=== PATIENT | female | born 1935 | race Caucasian/White ===

== ENCOUNTER 2020-03-02 09:21 | Outpatient (REF) | payer MEDICARE, OTHER, SELFPAY ==
--- NOTE | 2020-03-02 09:30 | FL_ITS ---
EXAMINATION: FLUOROSCOPY UPPER GI WITH AIR CLINICAL INFORMATION: Gastroesophageal reflux disease COMPARISON: None. TECHNIQUE: An upper GI examination is performed under fluoroscopic observation with digital image acquisition. The patient drank effervescent granules, thick and thin barium consistencies without difficulty. FINDINGS: There is a small sliding-type hiatal hernia with spontaneous gastroesophageal reflux. Esophageal dysmotility with delayed emptying. Normal esophageal caliber with no stricture. The stomach demonstrates normal motility with normal rugal folds. The duodenal bulb and proximal duodenum demonstrate no evidence of ulcer, mass lesion, or displacement. At least 2 distal duodenal diverticula are identified. FLUOROSCOPY TIME: 1.6 minutes Number of images excluding screen shots: 20 ADDITIONAL FINDINGS: None. IMPRESSION: There is a small sliding-type hiatal hernia and spontaneous gastroesophageal reflux. Esophageal dysmotility with delayed emptying.
== END 2020-03-02 09:22 | disposition home or self-care (01) ==
LOC: HO.XRAY 09:21
PROVIDERS: PCP Internal Medicine; Visit Provider Internal Medicine
DX: K21.9 Gastro-esophageal reflux disease without esophagitis (principal)
CPT/HCPCS: 74240

== ENCOUNTER → 2020-03-29 13:49 | Outpatient (BNVA) | payer MEDICARE, OTHER, SELFPAY | PROVIDERS: PCP Internal Medicine; Referring Provider Internal Medicine; Visit Provider Internal Medicine | DX: R07.2 Precordial pain (principal); E11.8 Type 2 diabetes mellitus with unspecified complications; I10 Essential (primary) hypertension; E78.5 Hyperlipidemia, unspecified; R94.31 Abnormal electrocardiogram [ECG] [EKG] | CPT/HCPCS: 93005; 99202 ==

== ENCOUNTER 2021-01-19 08:49 | Outpatient (REF) | payer MEDICARE, OTHER, SELFPAY ==
--- NOTE | ~2021-01-19 | MM_ITS ---
EXAMINATION: BONE DENSITOMETRY CLINICAL INDICATION: Age-related osteoporosis without current pathological fracture. COMPARISON: Previous BD dated 09/30/2008, left hip and baseline BD dated 04/11/2004, left hip; 09/30/2008, spine. TECHNIQUE: Using a [employer] DXA System (software version: 13.1) manufactured by [employer], dual-energy x-ray absorptiometry was performed of the lumbar spine and left hip. The images are of good technical quality. Summary results are attached. FINDINGS: AP SPINE L1-L4 (excluding L3): The data of L1-L4 has been changed to exclude the L3 vertebral body, because degenerative changes at this level may cause overestimation of lumbar spine density. Current: BMD 1.300 g/cm2, Z-score 2.5, T-score 1.1, normal, 14.1% increase from baseline (<5% change is not significant). Baseline: BMD 1.139 g/cm2. LEFT FEMUR, NECK: Current: BMD 0.702 g/cm2, Z-score -0.4, T-score -2.4, osteopenia. Prior: BMD 0.877 g/cm2. Baseline: BMD 0.768 g/cm2. LEFT FEMUR, TOTAL: Current: BMD 0.850 g/cm2, Z-score 0.6, T-score -1.2, osteopenia, 12.3% decrease from previous, 6.0% decrease from baseline (<5% change is not significant). Prior: BMD 0.969 g/cm2. Baseline: BMD 0.904 g/cm2. IDENTIFIED RISK FACTORS: Osteoporosis, height loss. Early menopause, secondary osteoporosis, glucocorticoids (chronic), hysterectomy, bilateral oophorectomy. HISTORY OF FRACTURE: None listed. MEDICATIONS: Calcium supplements or multivitamin, vitamin D. MM/XR DEXA axial skeleton IMPRESSION: 1. DIAGNOSIS: Osteopenia based on the lowest T-score value of -2.4 in the femoral neck applying World Health Organization criteria. 2. 10-YEAR FRACTURE RISK PREDICTION, FRAX: Major osteoporotic fracture (clinical spine, forearm, hip or shoulder) 25.1%. Hip fracture 9.8%. 3. Treatment Recommendations: NOF guidelines recommend consideration for treatment in postmenopausal women and men age 50 and older presenting with the following: -A hip or vertebral (clinical or morphometric) fracture. -T-score less than or equal to -2.5 at the femoral neck or spine after appropriate evaluation to exclude secondary causes. -Low bone mass at the hip or spine and a 10-year fracture probability by FRAX of greater than or equal to 3% for hip fracture or greater than or equal to 20% for major osteoporotic fracture based on the [place] adapted WHO algorithm. 4. Other Recommendations: All treatment decisions require clinical judgment and consideration of individual patient factors, including patient preferences, comorbidities, previous drug use, risk factors not captured in the FRAX model (e.g. frailty, falls, vitamin D deficiency, increased bone turnover, interval significant decline in bone density) and possible under or overestimation of fracture risk by FRAX. Additional medical evaluation for secondary cause of low bone mineral density may be appropriate. FUTURE SCAN RECOMMENDATION: People with diagnosed cases of osteoporosis or at high risk for fracture should have regular bone mineral density tests. For patients eligible for Medicare, routine testing is allowed once every 2 years. The testing frequency can be increased to one year for patients who have rapidly progressing disease, those who are receiving or discontinuing medical therapy to restore bone mass, or have additional risk factors.
--- NOTE | ~2021-01-19 | MM_ITS ---
EXAMINATION: MM SCREENING DIGITAL MAMMOGRAPHY, BILATERAL CLINICAL INFORMATION: Screening. Asymptomatic. The lifetime risk of breast cancer based on the Tyrer-Cuzick Model is under 1%. COMPARISON: Mammography: 06/24/2018, 06/13/2017 TECHNIQUE: Digital mammography is performed in craniocaudal and mediolateral oblique views along with computer-aided detection (CAD). Additional right CC view is provided. FINDINGS: The breasts are almost entirely fatty (ACR BI-RADS breast composition Category a). There are no significant masses, abnormal calcifications, or other abnormalities. There are scattered benign round calcifications in each breast. The axilla and skin contours are unremarkable. MM/MM screening mammo BI IMPRESSION: No mammographic evidence of malignancy. ASSESSMENT: BI-RADS 2: Benign RECOMMENDATION: Routine annual mammography screening. This patient's information was entered into a reminder system with a target due date for their next mammogram.
== END 2021-01-19 08:50 | disposition home or self-care (01) ==
LOC: HO.MAMMO 08:49
PROVIDERS: Visit Provider Internal Medicine
DX: Z12.31 Encounter for screening mammogram for malignant neoplasm of breast (principal); Z13.820 Encounter for screening for osteoporosis; M81.0 Age-related osteoporosis without current pathological fracture; Z78.0 Asymptomatic menopausal state; Z98.890 Other specified postprocedural states; Z90.722 Acquired absence of ovaries, bilateral; Z79.899 Other long term (current) drug therapy
CPT/HCPCS: 77063; 77067; 77080

== ENCOUNTER 2021-01-23 10:27 | Outpatient (REF) | payer MEDICARE, OTHER, SELFPAY ==
--- NOTE | ~2021-01-23 | XR_ITS ---
EXAMINATION: XR HIP, LEFT CLINICAL INFORMATION: Left hip pain. COMPARISON: None TECHNIQUE: Two views of the left hip. FINDINGS: Mild left hip degenerative joint changes are seen. There is no acute fracture or dislocation. The left hemipelvis is intact. The soft tissues are unremarkable. XR/XR hip LT min 2V IMPRESSION: Mild left hip osteoarthritis.
--- NOTE | ~2021-01-23 | XR_ITS ---
EXAMINATION: XR FOOT, LEFT CLINICAL INFORMATION: Left toe pain. COMPARISON: None TECHNIQUE: AP, lateral, and oblique views of the left foot. FINDINGS: Mild first and second tarsometatarsal degenerative joint changes are seen. There is no acute fracture or dislocation. There is mild flattening of the normal foot arch. A small plantar calcaneal spur is seen. The soft tissues are unremarkable. XR/XR foot LT min 3V IMPRESSION: 1. Mild first and second tarsometatarsal degenerative joint changes suggesting osteoarthritis. There is mild flattening of the normal foot arch at this level without acute abnormality. 2. Small plantar calcaneal spur.
--- NOTE | ~2021-01-23 | XR_ITS ---
EXAMINATION: XR KNEE, LEFT CLINICAL INFORMATION: Left knee pain. COMPARISON: None TECHNIQUE: Four views of the left knee. Mild medial femoral-tibial and patellofemoral degenerative joint changes are seen. There is no acute fracture, dislocation or joint effusion. The soft tissues are unremarkable. XR/XR knee LT 3V IMPRESSION: Mild medial femoral-tibial and patellofemoral degenerative joint changes. No acute abnormality.
--- NOTE | ~2021-01-23 | XR_ITS ---
EXAMINATION: XR WRIST, RIGHT CLINICAL INFORMATION: Right wrist pain. COMPARISON: None TECHNIQUE: PA, lateral, and oblique views of the right wrist. FINDINGS: Moderate first carpometacarpal degenerative joint changes are seen with joint space narrowing and periarticular sclerosis. There is no acute fracture or dislocation. The carpal bones are normally aligned. The distal radius and ulna are intact. There is mild soft tissue swelling. XR/XR wrist RT min 3V IMPRESSION: Mild soft tissue swelling without acute underlying osseous abnormality. Moderate first carpometacarpal osteoarthritis.
[2021-01-23 12:14] LABS: MANUAL DIFF FLAG NO
[2021-01-23 12:20] LABS: Basophils Percent Auto 0.2 % (0-2); Eosinophils Absolute Auto 0.1 X10*3/uL (0.0-0.4); Eosinophils Percent Auto 1.6 % (0-4); Hemoglobin 14.9 g/dl (12.0-16.0); Imm Gran Abs Auto 0.02 X10*3/uL (0.00-0.03); Imm Gran Pct Auto 0.2 % (0.0-0.4); Lymphocytes Absolute Auto 1.7 X10*3/uL (1.2-4.9); Mean Corpuscular HGB Conc 32.4 g/dl (31.0-35.0); Mean Corpuscular Volume 92.6 fL (80-98); Mean Platelet Volume 11.7 fL (9.4-12.3); Monocytes Absolute Auto 0.8 X10*3/uL (0.1-1.2); Monocytes Percent Auto 10.3 % (2-11); Neutrophils Absolute Auto 5.4 X10*3/uL (2.0-8.3); Neutrophils Percent Auto 66.7 % (45-73); Platelet Count 238 X10*3/uL (160-400); Red Blood Count 4.97 X10*6/uL (4.20-5.50); Red Cell Distribution Width 13.4 % (11.0-16.0); White Blood Count 8.1 X10*3/uL (4.8-10.8)
[2021-01-23 12:34] LABS: Estimated Average Glucose 137 mg/dL; Hemoglobin A1c % 6.4 %
[2021-01-23 12:40] LABS: Alanine Aminotransferase 15 U/L (0-31); Albumin Level 4.3 g/dL (3.5-5.0); Alkaline Phosphatase 92 U/L (39-117); Anion Gap 12 (12-20); Aspartate Amino Transferase 18 U/L (5-31); Bilirubin Total 0.9 mg/dL (0.0-1.0); Blood Urea Nitrogen 17 mg/dL (9-16); Carbon Dioxide 27 mmol/L (22-29); Chloride 106 mmol/L (96-108); Cholesterol 133 mg/dL; Estimated Glomerular Filt Rate 53; Glucose Random 172 mg/dL (60-115); HDL Cholesterol 36 mg/dL; LDL Cholesterol Calculated 70 mg/dl; Potassium 4.4 mmol/L (3.3-5.1); Sodium 141 mmol/L (135-145); Total Protein 7.2 g/dL (6.5-8.0); Triglycerides 139 mg/dL
[2021-01-23 12:53] LABS: Glucose Urine UA NEG (NEG); Leukocyte Esterase Urine TRACE (NEG); Nitrite Urine NEG (NEG); UACC Culture Trigger YES; Urine Blood NEG (NEG); Urine Ketones NEG (NEG); Urine Protein NEG (NEG-TRACE)
[2021-01-23 12:54] LABS: Appearance Urine CLEAR; Color Urine YELLOW
[2021-01-23 13:04] LABS: Bacteria Urine 1+ /LPF; RBC Urine 0 /HPF (0); Squamous Epithelial Cell Urine 2+ /LPF; WBC Urine 0-2 /HPF (0-4)
[2021-01-23 13:05] LABS: Free T4 (Free Thyroxine) 0.78 ng/dL (0.71-1.85); Thyroid Stimulating Hormone 3.33 uIU/mL (0.32-4.0); Vitamin D 25-OH Total 42.9 ng/mL (>30)
[2021-01-23 13:38] LABS: Folate > 20.0 ng/mL (> or = 4.0); Vitamin B12 819 pg/mL (200-900)
[2021-01-23 13:43] LABS: Creatinine Urine 148.86 mg/dL; Microalbum/Creatinine Ratio Ur 19.4 ug/mg cr
== END 2021-01-23 10:28 | disposition home or self-care (01) ==
LOC: HO.XRAY 10:27
PROVIDERS: Absent Provider Internal Medicine; PCP Internal Medicine; Visit Provider Nurse Practitioner Family
DX: M25.531 Pain in right wrist (principal); M79.675 Pain in left toe(s); M25.552 Pain in left hip; M25.562 Pain in left knee; R32 Unspecified urinary incontinence; R79.89 Other specified abnormal findings of blood chemistry; E11.65 Type 2 diabetes mellitus with hyperglycemia; E78.00 Pure hypercholesterolemia, unspecified; E78.5 Hyperlipidemia, unspecified
CPT/HCPCS: 36415; 73110; 73502; 73562; 73630; 80053; 80061; 81001; 82043; 82306; 82607; 82746; 83036; 84439; 84443; 85025; 87086

== ENCOUNTER 2021-03-27 13:02 | Outpatient (REF) | payer MEDICARE, OTHER, SELFPAY ==
--- NOTE | ~2021-03-27 | MR_ITS ---
EXAMINATION: MR ABDOMEN WITHOUT AND WITH CONTRAST CLINICAL INFORMATION: Enlarged liver. COMPARISON: Previous CT of the abdomen and pelvis June 2019 and abdominal ultrasound November 2018 and previous MRI from 2013. TECHNIQUE: MR abdomen was performed without and with use of 7.5 mL intravenous Gadavist gadolinium contrast. Postcontrast images are performed in multiphase dynamic sequences. Imaging was performed in 3 planes. FINDINGS: LUNG BASES: The visualized lung bases are unremarkable. LIVER, GALLBLADDER, AND BILIARY TREE: The liver is upper normal in size. The right lobe measures 18 cm in length. The liver is normal in contour. There is slight signal loss in the liver on out of phase sequences suggestive of mild fatty infiltration. There are multiple liver cysts. Largest cyst is a minimally complex cyst with single thin septation measuring 2 x 2.4 cm in the lateral segment of the left lobe of the liver. The remainder of the liver cysts are simple cysts. There is no intra or extrahepatic biliary duct dilatation. The gallbladder is not seen and has presumably been removed. PANCREAS: There is a 2.4 x 2 cm cyst in the head of the pancreas. This demonstrates no solid component, enhancement, wall thickening or septation. This does not appear appreciably changed in size from recent exams. This increased in size from previous MRI from 2013 when this measured 1.5 x 1.5 cm. There is dilatation of the main pancreatic duct measuring up to 7 mm in the head of the pancreas. In retrospect, the distal common bile duct in the head of the pancreas measured 0.7 cm on April 2014 exam and does not appear appreciably changed. There are adjacent small cysts seen adjacent to the main pancreatic duct and the head of the pancreas versus dilated biliary radicles. No filling defect in the main pancreatic duct is seen. SPLEEN: Normal. ADRENAL GLANDS: Normal. KIDNEYS AND URETERS: There are multiple bilateral simple renal cysts. Largest right renal cyst measures 4.5 x 5 cm in the upper pole and largest left renal cyst measures 3.5 cm in the upper pole. The kidneys are otherwise unremarkable. GASTROINTESTINAL TRACT: There is diverticulosis of the colon. There is a duodenal diverticulum adjacent to the pancreas. There are probably additional small bowel diverticuli seen on coronal sequences. No bowel obstruction. No ascites or fluid collection. ABDOMINAL WALL: There is a small umbilical hernia containing fat. LYMPH NODES: No lymphadenopathy. VASCULAR: Unremarkable. OSSEOUS STRUCTURES: There are degenerative changes of the spine and scoliosis. MR/MR abdomen wo/w con IMPRESSION: Upper normal-sized liver. Mild fatty infiltration. Multiple liver cysts similar to previous exams. 2 x 2.4 cm cyst in the uncinate process of the head of the pancreas. This is stable from previous exams and demonstrates no evidence of enhancement, mural nodule or solid component, wall thickening or septation. This is gradually increasing in size for example measuring 1.5 x 1.5 cm on April 2014 exam. Mild dilatation of the main pancreatic duct now measuring up to 7-8 mm in the head of the pancreas not appreciably changed. New additional small cysts or dilated biliary radicles are seen in the head of the pancreas. Multiple bilateral renal cysts. Diverticulosis of the colon and small bowel.
[2021-03-27 12:41] LABS: Blood Urea Nitrogen 11 mg/dL (9-16); Estimated Glomerular Filt Rate 55
== END 2021-03-27 13:03 | disposition home or self-care (01) ==
LOC: HO.MRI 13:02
PROVIDERS: Visit Provider Internal Medicine
DX: R16.0 Hepatomegaly, not elsewhere classified (principal); K86.2 Cyst of pancreas
CPT/HCPCS: 36415; 74183; 82565; 84520; A9585

== ENCOUNTER 2021-04-01 18:47 | Emergency (ER) | payer MEDICARE, OTHER, SELFPAY | END 2021-04-01 21:43 | disposition left against medical advice (07) | PROVIDERS: Emergency Provider Emergency Medicine; PCP Internal Medicine | DX: R42 Dizziness and giddiness (principal); E11.9 Type 2 diabetes mellitus without complications; I10 Essential (primary) hypertension ==

== ENCOUNTER 2021-04-23 11:05 | Outpatient (REF) | payer MEDICARE, OTHER, SELFPAY ==
--- NOTE | ~2021-04-23 | XR_ITS ---
EXAMINATION: XR LUMBOSACRAL SPINE CLINICAL INFORMATION: R22.2 - Localized swelling, mass and lump, trunk COMPARISON: MR abdomen 03/27/2021, lumbar radiographs 06/21/2019 TECHNIQUE: Three views of the lumbosacral spine. 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 Again, there is dextrocurvature lumbar spine with some mild straightening of the lumbar lordosis. There are again prominent multilevel degenerative disc changes with disc narrowing and variable vacuum disc and endplate sclerosis and vertebral body spurring. Bridging osteophytes are again noted greatest on left at L1-L2. There are also multilevel facet degeneration of lesser severity. There is borderline spondylolisthesis at L2-L3 likely related to the degenerative changes. The SI joints and visualized sacrum are unremarkable. XR/XR lumbar spine 2-3V IMPRESSION: Prominent multilevel degenerative disc changes. Borderline spondylolisthesis L2-L3.
== END 2021-04-23 11:06 | disposition home or self-care (01) ==
LOC: HO.XRAY 11:05
PROVIDERS: PCP Internal Medicine; Visit Provider Internal Medicine
DX: R22.2 Localized swelling, mass and lump, trunk (principal)
CPT/HCPCS: 72100

== ENCOUNTER 2021-05-15 12:39 | Outpatient (REF) | payer MEDICARE, OTHER, SELFPAY ==
--- NOTE | ~2021-05-15 | US_ITS ---
EXAMINATION: US ABDOMEN/TRUNK LIMITED CLINICAL INFORMATION: Localized swelling, mass and lump, trunk. COMPARISON: None TECHNIQUE: Real-time imaging of the right posterior back, lumbar spine to sacral spine. FINDINGS: There is no suspicious finding where the patient directs the placer miner posterior right side back region. No mass or cyst is seen. US/US abdomen limited IMPRESSION: No suspicious finding where the patient directs the placer miner to the area of pain, lump, right-sided back. If further evaluation is warranted, recommend MRI.
== END 2021-05-15 12:40 | disposition home or self-care (01) ==
LOC: HO.US 12:39
PROVIDERS: PCP Internal Medicine; Visit Provider Internal Medicine
DX: R22.2 Localized swelling, mass and lump, trunk (principal)
CPT/HCPCS: 76536; 76705

== ENCOUNTER 2021-08-13 12:20 | Outpatient (REF) | payer MEDICARE, OTHER, SELFPAY ==
--- NOTE | ~2021-08-13 | XR_ITS ---
EXAMINATION: XR KNEE, RIGHT CLINICAL INFORMATION: Pain COMPARISON: Previous x-ray April 2021 TECHNIQUE: Two views of the right knee. FINDINGS: The bones are osteopenic. Bone alignment is normal. There are small osteophytes at the medial femoral tibial and patellofemoral joints. There is a small joint effusion. There is a new vertical lucency projecting over the medial patella. This is not seen on April 2012 exam. It is uncertain whether this could represent a nondisplaced patellar fracture or is related to overlapping trabecular bone in the distal femur. Clinical correlation is recommended. Additional views of the right knee should be considered if clinically indicated. XR/XR knee RT 2V IMPRESSION: Mild arthritis at the medial femoral tibial and patellofemoral joints and small joint effusion. Vertical lucency in the medial patella questionable for nondisplaced fracture versus overlapping bone. Clinical correlation recommended. Additional imaging of the right knee should be considered if clinically indicated.
== END 2021-08-13 12:21 | disposition home or self-care (01) ==
LOC: HO.XRAY 12:20
PROVIDERS: PCP Internal Medicine; Visit Provider Internal Medicine
DX: M25.561 Pain in right knee (principal)
CPT/HCPCS: 73560

== ENCOUNTER → 2021-09-10 11:14 | Outpatient (BNVA) | payer MEDICARE, OTHER, SELFPAY | PROVIDERS: PCP Internal Medicine; Referring Provider Internal Medicine; Visit Provider Surgery | DX: D17.1 Benign lipomatous neoplasm of skin and subcutaneous tissue of trunk (principal) | CPT/HCPCS: 99202 ==

== ENCOUNTER 2021-09-28 12:24 | Outpatient (REF) | payer MEDICARE, OTHER, SELFPAY ==
--- NOTE | ~2021-09-28 | XR_ITS ---
EXAMINATION: XR KNEE AP STANDING CLINICAL INFORMATION: Pain in right knee COMPARISON: Left knee radiographs dated 01/23/2021 TECHNIQUE: AP bilateral standing view of the knees was obtained. Crosstable and sunrise views of the right knee FINDINGS: No acute fracture or dislocation. Small tricompartmental marginal osteophytes. Mild narrowing of the medial tibiofemoral compartment joint space on the right and small calcification. Projects over the lateral compartment joint space of the left knee on the frontal view. No erosive changes. Suspicious osseous lesion. Soft tissues unremarkable. XR/XR knee standing BI IMPRESSION: No acute findings. Degenerative changes as described.
--- NOTE | ~2021-09-28 | XR_ITS ---
EXAMINATION: XR KNEE AP STANDING CLINICAL INFORMATION: Pain in right knee COMPARISON: Left knee radiographs dated 01/23/2021 TECHNIQUE: AP bilateral standing view of the knees was obtained. Crosstable and sunrise views of the right knee FINDINGS: No acute fracture or dislocation. Small tricompartmental marginal osteophytes. Mild narrowing of the medial tibiofemoral compartment joint space on the right and small calcification. Projects over the lateral compartment joint space of the left knee on the frontal view. No erosive changes. Suspicious osseous lesion. Soft tissues unremarkable. XR/XR knee RT 1V IMPRESSION: No acute findings. Degenerative changes as described.
== END 2021-09-28 12:25 | disposition home or self-care (01) ==
LOC: HO.HOSX 12:24
PROVIDERS: Visit Provider Physician Assistant
DX: S82.091A Other fracture of right patella, initial encounter for closed fracture (principal); M25.562 Pain in left knee
CPT/HCPCS: 73560; 73565; 99202

== ENCOUNTER 2021-10-17 12:13 | Outpatient (REF) | payer MEDICARE, OTHER, SELFPAY | END 2021-10-17 12:14 | disposition home or self-care (01) | LOC: HO.LAB 12:13 | PROVIDERS: PCP Internal Medicine; Referring Provider Internal Medicine; Visit Provider Surgery | DX: D17.1 Benign lipomatous neoplasm of skin and subcutaneous tissue of trunk (principal) | CPT/HCPCS: 11406; 88304 ==

== ENCOUNTER → 2021-10-31 14:13 | Outpatient (BNVA) | payer MEDICARE, OTHER, SELFPAY | PROVIDERS: PCP Internal Medicine; Visit Provider Surgery | DX: Z48.817 Encounter for surgical aftercare following surgery on the skin and subcutaneous tissue (principal); Z86.018 Personal history of other benign neoplasm | CPT/HCPCS: 99212 ==

== ENCOUNTER 2021-12-21 | Outpatient (REF) | payer MEDICARE, OTHER, SELFPAY ==
--- NOTE | ~2021-12-21 | FL_ITS ---
EXAMINATION: FL UPPER GI AIR-CONTRAST STUDY WITH BARIUM SWALLOW CLINICAL INFORMATION: Dysphagia COMPARISON: None TECHNIQUE: Routine upper GI air-contrast study was performed in upright and lying position. In addition, barium-coated turkey and barium tablet was administered in upright view. FINDINGS: Following oral administration of thin barium and barium-coated turkey, there is normal propagation of bolus from the oral cavity through the pharynx, esophagus into stomach. No obstruction or narrowing seen. On placing patient supine and prone, there is a small hiatal hernia with mild gastroesophageal reflux. The rest of the course of the stomach, duodenal bulb and the sweep is normal. There is a mucosal pattern of the stomach and the duodenum is normal. FL/FL upper GI w air w Ba Swallow IMPRESSION: Widely patent esophagus. Xpyak-ff-[id number]-sized hiatal hernia with mild gastroesophageal reflux in lying position. FLUOROSCOPY TIME: 3.4 minutes DOSE AREA PRODUCT: 44.49 Gy-cm2 IMAGES: 63
== END 2021-12-21 00:01 ==
LOC: HO.XRAY
PROVIDERS: Visit Provider Internal Medicine
DX: R13.10 Dysphagia, unspecified (principal)
CPT/HCPCS: 74246

== ENCOUNTER 2022-02-08 14:29 | Outpatient (REF) | payer MEDICARE, OTHER, SELFPAY ==
--- NOTE | ~2022-02-08 | MM_ITS ---
EXAMINATION: MM SCREENING DIGITAL BREAST TOMOSYNTHESIS, BILATERAL CLINICAL INFORMATION: Screening. Asymptomatic. 50 pound weight loss since prior breast imaging. COMPARISON: Mammography: 01/19/2021, 06/24/2018 TECHNIQUE: Digital breast tomosynthesis is performed in both the craniocaudal and mediolateral oblique views along with computer-aided detection (CAD). Synthesized 2D images are generated from the tomosynthesis. Additional left CC and bilateral MLO views are provided. FINDINGS: The breasts are almost entirely fatty (ACR BI-RADS breast composition Category a). There are no significant masses, abnormal calcifications, or other abnormalities. The breasts are symmetrically decreased in size consistent with the clinical history of weight loss. Background stromal markings are normal. There are scattered bilateral benign round, coarse, and some ductal secretory calcifications. The axilla are unremarkable. MM/MM tomosynthesis screening BI IMPRESSION: No mammographic evidence of malignancy. ASSESSMENT: BI-RADS 2: Benign RECOMMENDATION: Routine annual mammography screening. This patient's information was entered into a reminder system with a target due date for their next mammogram.
== END 2022-02-08 14:30 | disposition home or self-care (01) ==
LOC: HO.MAMMO 14:29
PROVIDERS: Visit Provider Internal Medicine
DX: Z12.31 Encounter for screening mammogram for malignant neoplasm of breast (principal)
CPT/HCPCS: 77063; 77067

== ENCOUNTER → 2022-05-10 13:58 | Outpatient (BNVA) | payer MEDICARE, OTHER, SELFPAY | PROVIDERS: PCP Internal Medicine; Visit Provider Internal Medicine | DX: K57.31 Diverticulosis of large intestine without perforation or abscess with bleeding (principal); R15.9 Full incontinence of feces; K62.5 Hemorrhage of anus and rectum; K21.9 Gastro-esophageal reflux disease without esophagitis; E11.65 Type 2 diabetes mellitus with hyperglycemia; I10 Essential (primary) hypertension; I25.10 Atherosclerotic heart disease of native coronary artery without angina pectoris; E66.9 Obesity, unspecified; Z68.35 Body mass index [BMI] 35.0-35.9, adult; Z90.49 Acquired absence of other specified parts of digestive tract; Z86.73 Personal history of transient ischemic attack (TIA), and cerebral infarction without residual deficits; Z98.890 Other specified postprocedural states; Z79.01 Long term (current) use of anticoagulants | CPT/HCPCS: 99202 ==

== ENCOUNTER → 2022-08-26 12:17 | Outpatient (BNVA) | payer MEDICARE, OTHER, SELFPAY | PROVIDERS: PCP Internal Medicine; Referring Provider Internal Medicine; Visit Provider Internal Medicine | DX: K57.30 Diverticulosis of large intestine without perforation or abscess without bleeding (principal); R15.9 Full incontinence of feces; R13.10 Dysphagia, unspecified; Z87.19 Personal history of other diseases of the digestive system | CPT/HCPCS: 99212 ==

== ENCOUNTER → 2022-11-18 12:38 | Outpatient (REF) | payer MEDICARE, OTHER, SELFPAY ==
--- NOTE | ~2022-11-18 | XR_ITS ---
EXAMINATION: XR CHEST CLINICAL INFORMATION: Dyspnea. A-fib. COMPARISON: 03/03/2017. TECHNIQUE: 2 views of the chest were obtained. FINDINGS: There is no evidence of acute parenchymal disease, pneumothorax, or pleural effusion. Some scarring or atelectasis is seen about the left costophrenic angle. Cardiopericardial silhouette is upper limits of normal in size. There is some mildly increased interstitial markings compared to previous study of 03/03/2017 without definite evidence of pulmonary edema. XR/XR chest 2V IMPRESSION: No significant acute parenchymal disease.
--- NOTE | 2022-11-18 12:40 | CA_ITS ---
Transthoracic Echocardiogram Patient (Last, First, Middle): Zuleyma Gutierrez A Gender: Female Date of : 1935 Age: 87 Procedure Date: 11/18/2022 Procedure Type: Transthoracic Echocardiogram Location: OP Height: 149.86 cm Weight: 62.14 kg BSA: 1.57 m2 Heart Rate: 75 bpm BP: 115 / 60 mmHg Compensation Programs Manager: FRANK Referring MD: Yolanda Stone MD Symptoms: R06.09 - Other forms of dyspnea Study Quality: Fair ECG Rhythm: Sinus Conclusions: - The left ventricular systolic function is normal. The visually estimated ejection fraction is between 60-65%. - There is mild to moderate aortic valve stenosis. - There is mild mitral valve regurgitation. Findings Left Ventricle Normal left ventricular cavity size. There is mildly increased left ventricular wall thickness. The left ventricular systolic function is normal. The visually estimated ejection fraction is between 60-65%. There is no evidence of regional wall motion abnormalities. Diastolic function is indeterminate on the basis of available data. At least moderate focal hypertrophy of the basal septum. Right Ventricle Normal right ventricular cavity size and systolic function. Atria Both atria are normal in size. Aortic Valve There is moderate calcification of the aortic valve. There is mild to moderate aortic valve stenosis. The peak aortic velocity is 2.52 m/s with a calculated peak gradient of 25 mmHg. The mean gradient is 16 mmHg. The aortic valve area is 1.13 cm2. There is trace (trivial) aortic valve regurgitation. Dimensionless index 0.42. Stroke volume index 41ml/m2. Mitral Valve There is mild mitral annular calcification. There is mild mitral valve regurgitation. There is no mitral valve stenosis. Pulmonic Valve The pulmonic valve is likely normal. Tricuspid Valve There is trace tricuspid valve regurgitation. There is no evidence of pulmonary hypertension. Great Vessels The asc aorta is normal in size. Venous The inferior vena cava is mildly dilated and collapses greater than 50% with inspiration. Pericardium/Pleural There is no evidence of pericardial effusion. Prior Study Comparison Changes noted compared to prior study dated: 11/11/2013. See comments on aortic stenosis. Measurements 2D Linear Measurements IVSd: 1.79 0.6-0.9/0.6-1.0 cm LVIDd: 3.89 3.9-5.3/4.2-5.9 cm LVIDd Index: 2.48 2.4-3.2/2.2-3.1 cm/m2 LVIDs: 2.02 2.0-3.6 cm LVPWd: 1.21 0.7-1.1 cm LA Diam: 4.80 2.7-3.8/3.0-4.0 cm LAIDs Index: 3.06 1.5-2.3 cm/m2 LV Mass: 278.95 67-162/88-224 g LV Mass Index: 177.67 43-95/49-115 g/m2 LVOT Diam: 1.80 3.0+(-)1.3 cm 2D Systolic Function EF 4C: 57.50 >55% EF 2C: 60.70 >55% Mitral Valve MV Pk E: 1.16 MV PK A: 1.10 MV Decel Time: 235.00 E/A: 1.10 E'Lateral: 7.29 E'Medial: 3.59 E/E' Med: 32.30 E/E' Lat: 15.90 PHT: 69.00 MVA PHT: 3.19 Decel [place]: 4.93 Aortic Valve AoV Pk Koby: 2.52 AoV Mn Koby: 1.87 AoV VTI: 0.57 AoV Pk Grad: 25.00 Aov Mn Grad: 16.00 GARFIELD Cont.VTI: 1.13 AI Pk Koby: 3.64 AI [place]: 1.99 LVOT LVOT Pk Koby: 1.07 LVOT Mn Koby: 0.78 LVOT VTI: 0.25 LVOT Pk Grad: 5.00 LVOT Mn Grad: 3.00 LVOT Diam: 1.80 LVOT Area: 2.54 Diastolic Function MV Pk E: 1.16 MV Pk A: 1.10 E/A: 1.10 E'Medial: 3.59 E/E' Med: 32.30 E' Laterial: 7.29 E/E' Lat: 15.90 Right Ventricle TAPSE (mm): 20.70 TVS' Koby: 13.80 Tricuspid Valve TR Pk Koby: 1.94 TR Pk Grad: 15.00 RA Press: 8.00 RVSP: 23.00 Great Vessels Aorta Sinus of Valsalva: 3.50 2.0-3.5 cm Ao Asc: 3.30 2.1-3.4 cm Pulmonary Valve PV Pk Koby: 0.77 Peak PV Grad: 2.00 Updated in Other Vendor System with Status of Final Steven Cueto MD electronically signed on 11/19/2022 11:26:58 AM with status of Final
== END ==
LOC: HO.CARD 12:38
PROVIDERS: PCP Internal Medicine; Visit Provider Internal Medicine
DX: I48.0 Paroxysmal atrial fibrillation (principal); R01.1 Cardiac murmur, unspecified; R06.09 Other forms of dyspnea
CPT/HCPCS: 71046; 93306

== ENCOUNTER 2023-02-25 12:11 | Outpatient (AMB) | payer MEDICARE, OTHER, SELFPAY ==
[2023-02-25 12:17] VITALS: BP 104/62; PULSE 77; O2SAT 94; BMI 32.2
--- NOTE | 2023-02-25 12:17 | A.OFFPC_ITS ---
Vital Signs 02/25/23 12:17 Height 4 ft 10 in Weight 154 lb BMI 32.2 BP 104/62 Blood Pressure Location Lt brachial Position Sitting Pulse 77 Pulse Source Pulse Oximeter Pulse Oximetry (%) 94 Oxygen Delivery Method Room Air Intake Visit Reasons: Dye ED Allergies ciprofloxacin Allergy (Severe, Verified 02/25/23 12:18) unknown aspirin [Aspirin] Allergy (Unknown, Verified 02/25/23 12:18) UNKNOWN cefuroxime Allergy (Unknown, Verified 02/25/23 12:18) Unknown celecoxib [From Celebrex] Allergy (Unknown, Verified 02/25/23 12:18) UNKNOWN metformin Allergy (Unknown, Verified 02/25/23 12:18) diarrhea risedronate sodium [From Actonel] Allergy (Unknown, Verified 02/25/23 12:18) UNKNOWN Sulfa (Sulfonamide Antibiotics) Allergy (Unknown, Verified 02/25/23 12:18) unknown bupropion Adverse Reaction (Intermediate, Verified 02/25/23 12:18) tremor sertraline Adverse Reaction (Intermediate, Verified 02/25/23 12:18) tremors Medication List - Last Reconciled 02/25/23 by Solange Jacobs MD albuterol sulfate 90 mcg/actuation (ProAir HFA) 1 puff inhalation QID 90 days alprazolam 0.25 mg PO DAILY 30 days apixaban (Eliquis) 2.5 mg PO BID atorvastatin (Lipitor) 40 mg PO DAILY blood sugar diagnostic (FreeStyle Lite Strips) Use 1 to test blood sugar once a day cholecalciferol (vitamin D3) 25 mcg PO DAILY cholestyramine-aspartame 4 gram (Cholestyramine Light) 4 grams PO DAILY PRN 30 days dexlansoprazole (Dexilant) 60 mg PO DAILY folic acid 1 mg PO DAILY furosemide 40 mg PO DAILY furosemide 40 mg PO QDAY lancets (FreeStyle Lancets) use to test sugar once a day metoprolol succinate ER 100 mg PO DAILY 90 days mometasone 0.1% 1 appl topical DAILY 2 weeks montelukast (Singulair) 10 mg PO DAILY nifedipine ER 60 mg PO DAILY pregabalin 100 mg PO Q12H 30 days pregabalin 75 mg PO DAILY promethazine 12.5 mg PO TID PRN 7 days zolpidem 5 mg PO BEDTIME PRN 90 days Tobacco use date assessed: 10/29/22 Fall risk assessment: No Falls in past year Last assessed Fall Risk: 02/25/23 Dental Screening Dental Screen Date: 02/25/23 Did you have a dental visit in the last 12 months?: No Did you have a dental problem in the last 6 months where you did not have access to dental care?: No Was dental information given to patient?: No HPI Dye ED HPI Details 87-year-old obese female with controlled diabetes mellitus GERD hype rcholesterolemia hypertension coming in for follow-up. Last seen in March 2022. Review of the notes followed up in September by my colleague for an admission in the hospital for diverticulitis and new onset atrial fibrillation 02/03/2023 admitted to the hospital history of diverticulitis and had diverticular bleed. Patient has atrial fibrillation on anticoagulation with Eliquis. Recent blood transfusion IV fluids impaired Complaining of shortness of breath Has congestive heart failure noted to have low blood pressures and was taken of blood pressure medications. October 2022 echocardiogramThe left ventricular systolic function is normal. The visually estimated ejection fraction is between 60-65%. - There is mild to moderate aortic valve stenosis. - There is mild mitral valve regurgitati on. Patient has seen Neurology also for cerebral microvascular disease treatment of anti-platelet agent and statin and BP control. Patient has been placed on anticoagulation 03/03/2023 Will be seeing GASTR[facility] Dr. Rivera- 03/07/2023 [facility] will be seeing for watchmans device.03/25 MAmmogram, 03/13/2023- covid shot and flu shot PFSH Medical History (Updated 02/25/23 @ 12:52 by Solange Jacobs MD) Lipoma of lower back Right wrist pain Left knee pain Left hip pain Toe pain, left Urinary frequency Type 2 diabetes mellitus with hyperglycemia Toe fracture, left Pancreatic cyst Osteoporosis Peptic ulcer disease Urinary incontinence Rectal incontinence GERD (gastroesophageal reflux disease) Obesity (BMI 30-39.9) Bile salt-induced diarrhea Vaginal prolapse Renal artery stenosis Asthma Lumbar degenerative disc disease Insomnia TIA (transient ischemic attack) Hyperlipidemia, unspecified Essential hypertension Surgical History Hx of colonoscopy History of esophagogastroduodenoscopy (EGD) History of removal of cyst (~10/17/21) History of hemorrhoidectomy History of colectomy History of section History of hysterectomy History of appendectomy History of cholecystectomy Family History Father Cancer Arterial thrombosis Mother Multiple sclerosis Muscular dystrophy Hypertension Depression Chronic mental illness Mental health disorder Brother No problems noted. Brother Gangrene Sister No problems noted. Son No problems noted. Son No problems noted. Son No problems noted. Son No problems noted. Daughter No problems noted. Daughter No problems noted. Daughter No problems noted. Social History Housing: Apartment Alcohol intake: never Patient Tobacco Use Status: Former Tobacco user Tobacco use type: Cigarette Years Smoked: 1996 quit e-Cigarette/Vaping Use: Never Used Second Hand Smoke Exposure: No service: No Current occupational status: disabled Current occupational exposures/hazards: No Cognitive needs: Yes Hearing needs: Yes Vision needs: Yes Questionnaire PHQ-9 Over the last 2 weeks, how often have you been bothered by any of the following problems? 1. Little interest or pleasure in doing things: several days 2. Feeling down, depressed, or hopeless: several days 3. Trouble falling or staying asleep, or sleeping too much: nearly every day 4. Feeling tired or having little energy: more than half the days 5. Poor appetite or overeating: not at all 6. Feeling bad about yourself - or that you are a failure or have let yourself or your family down: not at all 7. Trouble concentrating on things, such as reading the newspaper or watching television: not at all 8. Moving or speaking so slowly that other people could have noticed. Or the opposite - being so fidgety or restless that you have been moving around a lot more than usual: not at all 9. Thoughts that you would be better off or of hurting yourself in some way: not at all Total score: 7 Depression Screening Interpretation: Positive Depression Screening Follow-up: Existing condition 46386 - PHQ-9 Billing: Yes Source: Developed by Drs. Brandon Villeda, Vijaya Damon, Jaydon Easley and colleagues, with an educational phi from [employer]. Thrive Questionnaire Date Thrive assessed: 10/29/22 AUDIT C Alcohol Use Questionnaire (AUDIT-C) 1. How often do you have a drink containing alcohol?: Never Total Score: 0 MERY-7 AMB Questionnaire MERY-7 Date MERY - 7 assessed: 10/29/22 Source: Developed by Drs. Brandon Villeda, Vijaya Damon, Jaydon Easley and colleagues, with an educational phi from [employer]. Physical exam (Primary Care) Vital Signs: Last Vital Signs Pulse 77 02/25/23 12:17 BP 104/62 02/25/23 12:17 Pulse Ox 94 02/25/23 12:17 Oxygen Delivery Method Room Air 02/25/23 12:17 BMI result Body Mass Index 32.2 Tobacco/Smoking Status: Tobacco use Status Tobacco use date assessed 10/29/22 02/25/23 12:19 Patient Tobacco Use Status Former Tobacco user 02/25/23 12:19 Tobacco use type Cigarette 02/25/23 12:19 e-Cigarette/Vaping Use Never Used 02/25/23 12:19 PHQ-9: PHQ-9 Score PHQ-9: Total score 7 02/25/23 18:28 Depression Screening Interpretation: Positive Depression Screening Follow-up: Existing condition Thrive Assessment: Date of Thrive Assessment Date Thrive assessed 10/29/22 02/25/23 12:19 Const General: alert; No acute distress Eyes Conjunctivae: conjunctivae normal Resp Auscultation: clear to auscultation bilaterally Cardio Rate: regular rate Rhythm: regular rhythm GI Inspection: Yes normal to inspection Extrem General: Yes normal to inspection and No edema Results AMB Hemoglobin A1c AMB Hemoglobin A1c 6.0 % Last Edit by Doreen Farfan CMA on 02/25/23 12 :52 Results Reviewed Results Reviewed: Laboratory Last Values Hgb A1c (Clinic) 6.0 % (4.0-6.0) 02/25/23 12:19 Assessment and Plan Assessment & Plan (1) Type 2 diabetes mellitus with hyperglycemia: Code(s): E11.65 - Type 2 diabetes mellitus with hyperglycemia Qualifiers: Diabetes mellitus assisted insulin use: without construction site crossing guard use Qualified Code(s): E11.65 - Type 2 diabetes mellitus with hyperglycemia Plan: Decrease the amount of carbohydrate intake, pasta, bread, rice and potatoes are all sugar and that is aside from all the sweet stuff, remember that fruits are good but they are Sweet also. Hemoglobin A1c goal of less than 7.0 patient is diet controlled (2) GERD (gastroesophageal reflux disease): Code(s): K21.9 - Gastro-esophageal reflux disease without esophagitis Qualifiers: Esophagitis presence: without esophagitis Qualified Code(s): K21.9 - Gastro-esophageal reflux disease without esophagitis Plan: Avoid the foods that causes that usually spicy foods, tomato products, juices, coffee, soda and foods that your sensitive to. After eating do not lie down, allow 3-4 hours before in lie down. And keep the head of bed above 30 degrees to avoid the acid from going up. (3) Obesity (BMI 30-39.9): Code(s): E66.9 - Obesity, unspecified Plan: Diet and exercise (4) Hyperlipidemia, unspecified: Code(s): E78.5 - Hyperlipidemia, unspecified Qualifiers: Hyperlipidemia type: unspecified Qualified Code(s): E78.5 - Hyperlipidemia, unspecified Plan: Avoid fried foods, chicken skin, eggs, butter margarine, pastries and meat. Be it pork or beef they have a lot of cholesterol LDL goal of less than 70 and triglyceride of less than 150. Patient is on simvastatin 40 mg at bedtime (5) Essential hypertension: Code(s): I10 - Essential (primary) hypertension Plan: Continue with blood pressure medication. Decrease salt intake and exercise patient takes metoprolol 100 mg once a day nifedipine 60 mg once a day (6) Generalized anxiety disorder: Code(s): F41.1 - Generalized anxiety disorder Plan: Continue with anxiety medication (7) Carotid artery disease: Comment: mild to moderate 04/2021 Code(s): I77.9 - Disorder of arteries and arterioles, unspecified Plan: Control the cholesterol, weight, blood pressure, diabetes (8) Paroxysmal atrial fibrillation: Code(s): I48.0 - Paroxysmal atrial fibrillation Plan: Continue with anticoagulation but the bleeding continues/another diverticular bleed will need to be referred for watchman's device (9) Diverticular disease: Code(s): K57.90 - Diverticulosis of intestine, part unspecified, without perforation or abscess without bleeding Plan: Continue to monitor avoid getting constipation (10) History of gastrointestinal diverticular hemorrhage: Code(s): Z87.19 - Personal history of other diseases of the digestive system Plan: Continue to monitor (11) Congestive heart failure with preserved left ventricular function, NYHA class 3: Code(s): I50.30 - Unspecified diastolic (congestive) heart failure Plan: Weight daily and continue with the diuretic (12) Hearing difficulty: Code(s): H91.90 - Unspecified hearing loss, unspecified ear Orders: Orders Comprehensive Met. Panel 3 Months E78.5 - Hyperlipidemia, unspecified Complete Blood Count Auto Diff 3 Months E78.5 - Hyperlipidemia, unspecified Free T4 (Free Thyroxine) 3 Months E11.65 - Type 2 diabetes mellitus with hyperglycemia AMB Hemoglobin A1c Today Z13.9 - Encounter for screening, unspecified Lipid Panel 3 Months E78.00 - Pure hypercholesterolemia, unspecified, E78.5 - Hyperlipidemia, unspecified B Type Natriuretic Peptide 3 Months E11.65 - Type 2 diabetes mellitus with hyperglycemia Thyroid Stimulating Hormone 3 Months E11.65 - Type 2 diabetes mellitus with hyperglycemia Referrals Podiatry Referral E11.65 - Type 2 diabetes mellitus with hyperglycemia Speech and Hearing Referral H91.90 - Unspecified hearing loss, unspecified ear Ophthalmology Referral E11.65 - Type 2 diabetes mellitus with hyperglycemia Medications: New atorvastatin (Lipitor) 40 mg PO DAILY 90 tabs 3RF E78.5 - Hyperlipidemia, unspecified diclofenac sodium 1% (Arthritis Pain (diclofenac)) apply to single knee, ankle, foot; for foot includes sole/toes/top of foot 4 grams topical QID 300 grams 3RF E11.65 - Type 2 diabetes mellitus with hyperglycemia Refilled cholestyramine-aspartame 4 gram (Cholestyramine Light) administer w/meal; avoid other meds within 1hr before or 4-6hr after dose 4 grams PO DAILY PRN 201.6 grams 0RF diarha 30 days Discontinued simvastatin Discontinued Reason: Doctor's Order 40 mg PO BEDTIME 90 tabs 2RF E78.5 - Hyperlipidemia, unspecified Coding Level of Care Code Est Pt Level 4 (86815) Diagnoses Type 2 diabetes mellitus with hyperglycemia, without long-term current use of insulin E11.65 Diabetes mellitus construction site crossing guard insulin use: without assisted use Gastroesophageal reflux disease without esophagitis K21.9 Esophagitis presence: without esophagitis Obesity (BMI 30-39.9) E66.9 Hyperlipidemia, unspecified hyperlipidemia type E78.5 Hyperlipidemia type: unspecified Essential hypertension I10 Generalized anxiety disorder F41.1 Carotid artery disease I77.9 Paroxysmal atrial fibrillation I48.0 Diverticular disease K57.90 History of gastrointestinal diverticular hemorrhage Z87.19 Congestive heart failure with preserved left ventricular function, NYHA class 3 I50.30 Hearing difficulty H91.90
== END 2023-02-25 13:22 | disposition home or self-care (01) ==
PROVIDERS: Visit Provider Internal Medicine
DX: E11.65 Type 2 diabetes mellitus with hyperglycemia (principal)
CPT/HCPCS: 83036; 99214

== ENCOUNTER 2023-03-03 10:38 | Outpatient (AMB) | payer MEDICARE, OTHER, SELFPAY ==
--- NOTE | 2023-03-03 10:45 | A.OFFVIS_ITS ---
Intake Vital Signs 03/03/23 10:48 Height 4 ft 10 in Weight 150 lb 1.903 oz BMI 31.4 BP 188/82 H Blood Pressure Location Lt brachial Position Sitting Pulse 68 Intake Visit Reasons: 6 month follow up Intake Note: Zuleyma presents in the office as a 6 month follow up. CC: She states that she is feeling very weak and she was given metamucil for diarrhea. She is having diarrhea but not every day. She states that she also is still throwing up. Allergies ciprofloxacin Allergy (Severe, Verified 03/03/23 10:48) unknown aspirin [Aspirin] Allergy (Unknown, Verified 03/03/23 10:48) UNKNOWN cefuroxime Allergy (Unknown, Verified 03/03/23 10:48) Unknown celecoxib [From Celebrex] Allergy (Unknown, Verified 03/03/23 10:48) UNKNOWN metformin Allergy (Unknown, Verified 03/03/23 10:48) diarrhea risedronate sodium [From Actonel] Allergy (Unknown, Verified 03/03/23 10:48) UNKNOWN Sulfa (Sulfonamide Antibiotics) Allergy (Unknown, Verified 03/03/23 10:48) unknown bupropion Adverse Reaction (Intermediate, Verified 03/03/23 10:48) tremor sertraline Adverse Reaction (Intermediate, Verified 03/03/23 10:48) tremors HPI HPI Comments History of Present Illness Details This is an 87-year-old female with past medical history of obesity, GERD, type 2 diabetes, hyperlipidemia, hypertension, carotid artery disease, she TIA, diverticulosis, who presents for follow up of diverticular disease. Patient is accompanied by her to-be daughter in law. Initial visit 05/10/22: She tells me that she has had multiple episodes of lower GI bleeding, in each time the been attributed to diverticular bleeding. Previously has been seen by Dr. Mills as well. She most recently, she was admitted to [facility] in March once again with lower GI bleeding. Underwent an EGD/colonoscopy during that admission (Dr. Richter) which was reportedly normal except diverticulosis. This is as per the discharge summary, detailed procedure note is not available. Of note, patient had a recent TIA, and is on Plavix, which she has continued as per her neurologist advice. Outside of this, patient also reports intermittent episodes of fecal incontinence. She does not report any diarrhea or constipation with this. Stool consistency otherwise is formed, and regular. Does not have to strain. When she does have an episode of fecal incontinence, the stool that leaks is soft or even formed. Obstetric history includes vaginal deliver of 6 out of 7 kids including history of instrument assisted . Babies weight ranged from 8-10 lbs. 08/26/22: Report improvement in abd cramping and diarrhea. Reports persistent lower back spasms. Today main CC is difficulty swallowing certain textures such as steak, turkey. Intermittent. Sometimes has to throw this up to feel better. As above most recent EGD was in Mar 2022 and reportedly normal. Barium swallow 11/2021 without any strictures or webs noted. Was recently hospitalised at [facility] again last month for COPD exacerbation. Reports scant rectal bleeding on wiping during those days which resolved a few days after discharge. BP noted to be on softer side today however pt does not report any lightheadedness or dizziness. Able to get up without any difficulty and use her walker. 03/03/23: Here with her sister. Reports hospitalisation to [facility] x 2 since she was last seen. From documentation appears to have been for CHF, but she mentions rectal bleeding as well for which she underwent sigmoidoscopy based on her description. Was told possibly diverticular bleeding. She is due to meet her Lift Driver later this month for discussion of ongoing use of blood thinner. Otherwise, main complaint remains frequent loose stools. Was switched from loperamide to cholestyramine by her PCP. Olmesartan has also been discontinued. [facility] Medical History (Updated 03/03/23 @ 15:15 by Misty Rivera MD) Lipoma of lower back Right wrist pain Left knee pain Left hip pain Toe pain, left Urinary frequency Type 2 diabetes mellitus with hyperglycemia Toe fracture, left Pancreatic cyst Osteoporosis Peptic ulcer disease Urinary incontinence Rectal incontinence GERD (gastroesophageal reflux disease) Obesity (BMI 30-39.9) Bile salt-induced diarrhea Vaginal prolapse Renal artery stenosis Asthma Lumbar degenerative disc disease Insomnia TIA (transient ischemic attack) Hyperlipidemia, unspecified Essential hypertension Surgical History Hx of colonoscopy History of esophagogastroduodenoscopy (EGD) History of removal of cyst (~10/17/21) History of hemorrhoidectomy History of colectomy History of section History of hysterectomy History of appendectomy History of cholecystectomy Family History Father Cancer Arterial thrombosis Mother Multiple sclerosis Muscular dystrophy Hypertension Depression Chronic mental illness Mental health disorder Brother No problems noted. Brother Gangrene Sister No problems noted. Son No problems noted. Son No problems noted. Son No problems noted. Son No problems noted. Daughter No problems noted. Daughter No problems noted. Daughter No problems noted. Social History Housing: Apartment Alcohol intake: never Patient Tobacco Use Status: Former Tobacco user Tobacco use type: Cigarette Years Smoked: 1996 quit e-Cigarette/Vaping Use: Never Used Second Hand Smoke Exposure: No service: No Current occupational status: disabled Current occupational exposures/hazards: No Cognitive needs: Yes Hearing needs: Yes Vision needs: Yes Review of Systems Const All systems reviewed & are unremarkable except as noted in HPI and below Physical Exam Vital Signs: Last Vital Signs Pulse 68 03/03/23 10:48 BP 188/82 H 03/03/23 10:48 BMI result Body Mass Index 31.4 Gen appear: No acute distress HEENT: no icterus Chest: No overt resp distress Abd: soft, nontender, nondistended Psych: Stable affect, answering questions appropriately Neuro: A/Ox3 noted to move all extremities spontaneously, uses walker to ambulate Ext: no peripheral edema Assessment & Plan Assessment & Plan (1) Diverticula of colon: Code(s): K57.30 - Diverticulosis of large intestine without perforation or abscess without bleeding (2) History of gastrointestinal diverticular hemorrhage: Code(s): Z87.19 - Personal history of other diseases of the digestive system (3) Rectal incontinence: Code(s): R15.9 - Full incontinence of feces (4) Rectal bleeding: Code(s): K62.5 - Hemorrhage of anus and rectum (5) Diarrhea: Code(s): R19.7 - Diarrhea, unspecified Plan 1. Diverticular bleed: Appears to have had recurred earlier this year. Will obtain records from [facility] for review. Pt tells me she will be meeting her associate embalmer/funeral director Nicola Sharma NP later this month to discuss if eliquis can be discontinued. Reportedly scheduled for a procedure too but unclear if she'll be getting a holter to determine burden of Afib vs Afib ablation. In any case, discussed that unable to predict when/if she will have recurrence of diverticular bleed but certainly the risk of recurrence increase with each successive diverticular bleed. CBC and iron studies ordered. 2. Abd cramping with diarrhea and fecal incontinence: Also has urinary incontinence. Likely has some degree of pelvic organ prolapse, pelvic floor dysfunction. Did not have much improvement with Loperamide, although unable to tell me if she really took it as was in and out of the hospital most of the summer. Was switched to Cholestyramine by PCP which she has only taken for a couple of days so far. Recommend taking cholestyramine 4g once daily. Can titrate to effect. Add fiber supplementation. Timed rectal evacuation to avoid fecal seepage/incontinence. Records from [facility] requested as above. Follow up 4 months. Orders: Orders Ferritin Today K57.90 - Diverticulosis of intestine, part unspecified, without perforation or abscess without bleeding Complete Blood Count no Diff Today K57.90 - Diverticulosis of intestine, part unspecified, without perforation or abscess without bleeding IRON PROFILE Today K57.90 - Diverticulosis of intestine, part unspecified, without perforation or abscess without bleeding Coding Level of Care Code Est Pt Level 4 (58034) Diagnoses Diverticula of colon K57.30 History of gastrointestinal diverticular hemorrhage Z87.19 Rectal incontinence R15.9 Rectal bleeding K62.5 Diarrhea R19.7
[2023-03-03 10:48] VITALS: BP 188/82; PULSE 68; BMI 31.4
== END 2023-03-03 11:24 | disposition home or self-care (01) ==
PROVIDERS: PCP Internal Medicine; Visit Provider Internal Medicine
DX: K57.30 Diverticulosis of large intestine without perforation or abscess without bleeding (principal); Z87.19 Personal history of other diseases of the digestive system; R15.9 Full incontinence of feces; K62.5 Hemorrhage of anus and rectum; R19.7 Diarrhea, unspecified
CPT/HCPCS: 99214

== ENCOUNTER → 2023-03-03 10:38 | Outpatient (BNVA) | payer MEDICARE, OTHER, SELFPAY | PROVIDERS: PCP Internal Medicine; Visit Provider Internal Medicine | DX: K57.30 Diverticulosis of large intestine without perforation or abscess without bleeding (principal); K62.5 Hemorrhage of anus and rectum; R19.7 Diarrhea, unspecified; R15.9 Full incontinence of feces; Z87.19 Personal history of other diseases of the digestive system | CPT/HCPCS: 99212 ==

== ENCOUNTER 2023-03-12 13:09 | Outpatient (AMB) | payer MEDICARE, OTHER, SELFPAY ==
[2023-03-12 13:12] VITALS: BP 132/70; PULSE 71; O2SAT 98; BMI 31.6
--- NOTE | 2023-03-12 13:12 | MHC.PC.OV ---
Vital Signs 03/12/23 13:12 Height 4 ft 10 in Weight 151 lb BMI 31.6 BP 132/70 Blood Pressure Location Lt brachial Position Sitting Pulse 71 Pulse Source Pulse Oximeter Temp Source Skin Pulse Oximetry (%) 98 Oxygen Delivery Method Room Air Intake Visit Reasons: ed 03/04 [facility] due to rectal bleeding Intake Note: Patient is here to follow-up after a visit the emergency department at [facility] on 03/04/23 due to rectal bleeding [employer] Cutter Hand Required: No Allergies ciprofloxacin Allergy (Severe, Verified 03/12/23 13:42) unknown aspirin [Aspirin] Allergy (Unknown, Verified 03/12/23 13:42) UNKNOWN cefuroxime Allergy (Unknown, Verified 03/12/23 13:42) Unknown celecoxib [From Celebrex] Allergy (Unknown, Verified 03/12/23 13:42) UNKNOWN metformin Allergy (Unknown, Verified 03/12/23 13:42) diarrhea risedronate sodium [From Actonel] Allergy (Unknown, Verified 03/12/23 13:42) UNKNOWN Sulfa (Sulfonamide Antibiotics) Allergy (Unknown, Verified 03/12/23 13:42) unknown bupropion Adverse Reaction (Intermediate, Verified 03/12/23 13:42) tremor sertraline Adverse Reaction (Intermediate, Verified 03/12/23 13:42) tremors Medication List - Last Reconciled 03/12/23 by ALIYAH Floyd albuterol sulfate 90 mcg/actuation (ProAir HFA) 1 puff inhalation QID 90 days alprazolam 0.25 mg PO DAILY 30 days apixaban (Eliquis) 2.5 mg PO BID atorvastatin (Lipitor) 40 mg PO DAILY blood sugar diagnostic (FreeStyle Lite Strips) Use 1 to test blood sugar once a day cholecalciferol (vitamin D3) 25 mcg PO DAILY cholestyramine-aspartame 4 gram (Cholestyramine Light) 4 grams PO DAILY PRN 30 days dexlansoprazole (Dexilant) 60 mg PO DAILY diclofenac sodium 1% (Arthritis Pain (diclofenac)) 4 grams topical QID folic acid 1 mg PO DAILY furosemide 40 mg PO DAILY furosemide 40 mg PO QDAY hydrocortisone 2.5% (Proctosol HC) 1 appl MD BID-QID PRN lancets (FreeStyle Lancets) use to test sugar once a day metoprolol succinate ER 100 mg PO DAILY 90 days mometasone 0.1% 1 appl topical DAILY 2 weeks montelukast (Singulair) 10 mg PO DAILY nifedipine ER 60 mg PO DAILY pregabalin 100 mg PO Q12H 30 days promethazine 12.5 mg PO TID PRN 7 days psyllium husk (Metamucil) 1 tbsp PO DAILY zolpidem 5 mg PO BEDTIME PRN 90 days Tobacco use date assessed: 03/12/23 Fall risk assessment: No Falls in past year Last assessed Fall Risk: 03/12/23 [facility] ed 03/04 [facility] due to rectal bleeding [facility] Details Patient is an 87-year-old female who presents today to follow-up after [facility] Emergency Department visit 03/04/2023. Discharge diagnosis rectal bleeding, orthostatic lightheadedness, hypomagnesemia, hypokalemia. Patient of Dr. Jacobs. Patient presented to emergency department with rectal bleeding and visual field change. Patient reported that she was feeling poorly over the last couple days. She has been having some lightheadedness with standing and feeling unsteady, had increased blurriness of vision, also her glucose has been running higher than normal without even eating much. She had an episode of bleeding with stools that day and with wiping. She does take Eliquis for history of AFib. Magnesium 1.4, potassium 2.9, hemoglobin 9.3, hematocrit 30.3, RDW 18.2 03/04/2023. Patient was discharged home with potassium chloride 20 mEq daily and magnesium oxide 400 mg daily, patient reports that she has finished this medications. She denies any more blood in stool. Patient was instructed to follow-up with her PCP to recheck her magnesium and potassium. Patient reports that she has an upcoming appointment with her eye doctor. She denies any rectal bleeding since being discharged from emergency department. She also followed by GI Dr. Rivera, patient was also encouraged to complete her blood work. [facility] Medical History Lipoma of lower back Right wrist pain Left knee pain Left hip pain Toe pain, left Urinary frequency Type 2 diabetes mellitus with hyperglycemia Toe fracture, left Pancreatic cyst Osteoporosis Peptic ulcer disease Urinary incontinence Rectal incontinence GERD (gastroesophageal reflux disease) Obesity (BMI 30-39.9) Bile salt-induced diarrhea Vaginal prolapse Renal artery stenosis Asthma Lumbar degenerative disc disease Insomnia TIA (transient ischemic attack) Hyperlipidemia, unspecified Essential hypertension Surgical History Hx of colonoscopy History of esophagogastroduodenoscopy (EGD) History of removal of cyst (~10/17/21) History of hemorrhoidectomy History of colectomy History of section History of hysterectomy History of appendectomy History of cholecystectomy Family History Father Cancer Arterial thrombosis Mother Multiple sclerosis Muscular dystrophy Hypertension Depression Chronic mental illness Mental health disorder Brother No problems noted. Brother Gangrene Sister No problems noted. Son No problems noted. Son No problems noted. Son No problems noted. Son No problems noted. Daughter No problems noted. Daughter No problems noted. Daughter No problems noted. Social History Housing: Apartment Alcohol intake: never Patient Tobacco Use Status: Former Tobacco user Tobacco use type: Cigarette Years Smoked: 1996 quit e-Cigarette/Vaping Use: Never Used Second Hand Smoke Exposure: No service: No Current occupational status: disabled Current occupational exposures/hazards: No Cognitive needs: Yes Hearing needs: Yes Vision needs: Yes Questionnaire Thrive Questionnaire Date Thrive assessed: 10/29/22 AUDIT C Alcohol Use Questionnaire (AUDIT-C) 1. How often do you have a drink containing alcohol?: Never Total Score: 0 Score Reviewed/Action Taken: No MERY-7 AMB Questionnaire MERY-7 Date MERY - 7 assessed: 10/29/22 Source: Developed by Drs. Brandon Villeda, Vijaya Damon, Jaydon Easley and colleagues, with an educational phi from [employer]. Review of Systems Const Denies body aches, Denies chills, Denies fever(s) and Denies headache(s) Eyes Denies change in vision ENT Denies dizziness, Denies otalgia, Denies headache(s), Denies nasal discharge, Denies sinus pain and Denies sore throat Card Denies chest pain, Denies edema, Denies lightheadedness and Denies dyspnea Resp Denies dyspnea and Denies wheezing GI Denies abdominal pain, Denies melena, Denies hematochezia, Denies constipation, Reports fecal incontinence, Denies diarrhea, Denies nausea and Denies vomiting Denies dysuria Musc Denies myalgias Skin/Breast Denies rash Neuro Denies dizziness and Denies headache(s) Aller/Immun Denies wheezing Physical exam (Primary Care) Vital Signs: Last Vital Signs Pulse 71 03/12/23 13:12 BP 132/70 03/12/23 13:12 Pulse Ox 98 03/12/23 13:12 Oxygen Delivery Method Room Air 03/12/23 13:12 BMI result Body Mass Index 31.6 Tobacco/Smoking Status: Tobacco use Status Tobacco use date assessed 03/12/23 03/12/23 13:14 Patient Tobacco Use Status Former Tobacco user 03/12/23 13:14 Tobacco use type Cigarette 03/12/23 13:14 e-Cigarette/Vaping Use Never Used 03/12/23 13:14 Thrive Assessment: Date of Thrive Assessment Date Thrive assessed 10/29/22 03/12/23 13:14 Const General: cooperative and no acute distress Orientation/consciousness: patient oriented x3 HENMT Head: Yes normocephalic and Yes atraumatic Mouth: moist mucous membranes Throat: Yes posterior oropharynx normal Eyes General: appearance normal, both eyes and all related structures Neck Neck: Yes normal visual inspection, Yes full ROM and Yes no lymphadenopathy Resp Effort & Inspection: normal respiratory effort and able to speak in complete sentences Auscultation: clear to auscultation bilaterally, no crackles, no rales, no rhonchi and no wheezes Cardio Rate: regular rate Rhythm: regular rhythm Heart sounds: S1 normal heart sound present, S2 normal heart sound present and Murmur heart sound present GI Palpation (GI): Soft to palpation, not firm, nontender, no guarding, not rigid and no hepatosplenomegaly Auscultation: normal bowel sounds Skin General skin exam: no rashes or lesions noted Neuro Other: Ambulates with walker General: patient oriented x3 Extrem General: Yes full ROM and No edema Assessment and Plan Assessment & Plan (1) Hypokalemia: Code(s): E87.6 - Hypokalemia Plan: Will recheck potassium level, if low will replace (2) Hypomagnesemia: Code(s): E83.42 - Hypomagnesemia Plan: Will recheck magnesium level, if low will replace (3) Rectal bleeding: Code(s): K62.5 - Hemorrhage of anus and rectum Plan: Patient denies any more rectal bleeding since being discharged from emergency department, patient was encouraged to complete her blood work. Signs and symptoms reviewed when to notify provider or go to the emergency department. In the emergency room suspected hemorrhoidal. Plan Keep appointment with PCP as scheduled or follow-up sooner as needed Orders: Orders Basic Metabolic Panel Today E87.6 - Hypokalemia Magnesium Today E83.42 - Hypomagnesemia, E87.6 - Hypokalemia Medications: Refilled furosemide 40 mg PO DAILY 30 tabs 0RF Coding Level of Care Code Est Pt Level 3 (50507) Diagnoses Hypokalemia E87.6 Hypomagnesemia E83.42 Rectal bleeding K62.5
== END 2023-03-12 14:42 | disposition home or self-care (01) ==
PROVIDERS: PCP Internal Medicine; Visit Provider Nurse Practitioner Family
DX: E87.6 Hypokalemia (principal); E83.42 Hypomagnesemia; K62.5 Hemorrhage of anus and rectum
CPT/HCPCS: 99213

== ENCOUNTER 2023-03-12 14:19 | Outpatient (REF) | payer MEDICARE, OTHER, SELFPAY | END 2023-03-12 14:20 | disposition home or self-care (01) | LOC: HO.LAB 14:19 | PROVIDERS: PCP Internal Medicine; Visit Provider Nurse Practitioner Family | DX: E87.6 Hypokalemia (principal); K57.90 Diverticulosis of intestine, part unspecified, without perforation or abscess without bleeding; E83.42 Hypomagnesemia | CPT/HCPCS: 36415; 80048; 82728; 83540; 83735; 85027 ==

== ENCOUNTER 2023-03-25 09:21 | Outpatient (REF) | payer MEDICARE, OTHER, SELFPAY ==
--- NOTE | ~2023-03-25 | MM_ITS ---
EXAMINATION: MM SCREENING DIGITAL BREAST TOMOSYNTHESIS, BILATERAL CLINICAL INFORMATION: Screening. Asymptomatic. COMPARISON: Mammography: This study is compared with prior exams dating back to 2018. TECHNIQUE: Digital breast tomosynthesis is performed in both the craniocaudal and mediolateral oblique views along with computer-aided detection (CAD). Synthesized 2D images are generated from the tomosynthesis. FINDINGS: The breasts are almost entirely fatty (ACR BI-RADS breast composition Category a). There are no significant masses, abnormal calcifications, or other abnormalities. MM/MM tomosynthesis screening BI IMPRESSION: No mammographic evidence of malignancy. ASSESSMENT: BI-RADS BI-RADS 1 - Negative RECOMMENDATION: Routine annual mammography screening. 1 year F/U This examination should not preclude the clinical evaluation of a suspicious palpable abnormality. This patient's information was entered into a reminder system with a target due date for their next mammogram.
== END 2023-03-25 09:22 | disposition home or self-care (01) ==
LOC: HO.MAMMO 09:21
PROVIDERS: PCP Internal Medicine; Visit Provider Internal Medicine
DX: Z12.31 Encounter for screening mammogram for malignant neoplasm of breast (principal)
CPT/HCPCS: 77063; 77067

== ENCOUNTER → 2023-03-25 09:24 | Outpatient (BNV) | payer MEDICARE, OTHER, SELFPAY | PROVIDERS: PCP Internal Medicine; Visit Provider Radiology Diagnostic Radiology | DX: Z12.31 Encounter for screening mammogram for malignant neoplasm of breast (principal) | CPT/HCPCS: 77063; 77067 ==

== ENCOUNTER 2023-06-13 12:49 | Outpatient (AMB) | payer MEDICARE, OTHER, SELFPAY ==
[2023-06-13 12:55] VITALS: BP 112/62; PULSE 68; O2SAT 98; BMI 32.4
--- NOTE | 2023-06-13 12:55 | A.OFFPC_ITS ---
Vital Signs 06/13/23 12:55 Height 4 ft 10 in Weight 155 lb BMI 32.4 BP 112/62 Blood Pressure Location Lt brachial Position Sitting Pulse 68 Pulse Source Pulse Oximeter Pulse Oximetry (%) 98 Oxygen Delivery Method Room Air Intake Visit Reasons: A nydia, DM Supervisor Billposting Required: No Bird Tender: Not Required per policy Accompanied by: Self / Same As Patient Allergies ciprofloxacin Allergy (Severe, Verified 06/13/23 12:56) unknown aspirin [Aspirin] Allergy (Unknown, Verified 06/13/23 12:56) UNKNOWN cefuroxime Allergy (Unknown, Verified 06/13/23 12:56) Unknown celecoxib [From Celebrex] Allergy (Unknown, Verified 06/13/23 12:56) UNKNOWN metformin Allergy (Unknown, Verified 06/13/23 12:56) diarrhea risedronate sodium [From Actonel] Allergy (Unknown, Verified 06/13/23 12:56) UNKNOWN Sulfa (Sulfonamide Antibiotics) Allergy (Unknown, Verified 06/13/23 12:56) unknown bupropion Adverse Reaction (Intermediate, Verified 06/13/23 12:56) tremor sertraline Adverse Reaction (Intermediate, Verified 06/13/23 12:56) tremors Medication List - Last Reconciled 06/13/23 by Solange Jacobs MD albuterol sulfate 90 mcg/actuation (ProAir HFA) 1 puff inhalation QID 90 days alprazolam 0.25 mg PO DAILY 30 days apixaban (Eliquis) 2.5 mg PO BID ascorbate calcium (vitamin C) 500 mg PO DAILY atorvastatin (Lipitor) 40 mg PO DAILY blood sugar diagnostic (FreeStyle Lite Strips) Use 1 to test blood sugar once a day cholecalciferol (vitamin D3) 25 mcg PO DAILY dexlansoprazole (Dexilant) 60 mg PO DAILY diclofenac sodium 1% (Arthritis Pain (diclofenac)) 4 grams topical QID ferrous sulfate (Feosol) 325 mg PO DAILY folic acid 1 mg PO DAILY furosemide 40 mg PO DAILY hydrocortisone 2.5% (Proctosol HC) 1 appl MA BID-QID PRN lancets (FreeStyle Lancets) use to test sugar once a day metoprolol succinate ER 100 mg PO DAILY 90 days mometasone 0.1% 1 appl topical DAILY 2 weeks montelukast (Singulair) 10 mg PO DAILY nifedipine ER 60 mg PO DAILY pregabalin 100 mg PO Q12H 30 days promethazine 12.5 mg PO TID PRN 7 days psyllium husk (Metamucil) 1 tbsp PO DAILY zolpidem 5 mg PO BEDTIME PRN 90 days Tobacco use date assessed: 06/13/23 Fall risk assessment: No Falls in past year Last assessed Fall Risk: 06/13/23 Dental Screening Dental Screen Date: 06/13/23 Did you have a dental visit in the last 12 months?: Yes Did you have a dental problem in the last 6 months where you did not have access to dental care?: No Was dental information given to patient?: Patient has dentist HPI A fib, DM HPI Details 88-year-old obese female with uncontroll ed diabetes mellitus GERD hypercholesterolemia hypertension generalized anxiety disorder atrial fibrillation and congestive heart failure last seen in January 2023. Patient is here for follow-up. Last colonoscopy was in January 2023 poor prep, mammogram is up-to-date bone density due. Review of the notes in April received notes from ER congestive heart failure. PAtient has stool incontinence and will be seeing Space Control Supervisor . eye 06/16. mechanic chief 06/17/2023 hearing 06/30/2023, for Atrial fibrillation- seeing cardiology [facility] Medical History Lipoma of lower back Right wrist pain Left knee pain Left hip pain Toe pain, left Urinary frequency Type 2 diabetes mellitus with hyperglycemia Toe fracture, left Pancreatic cyst Osteoporosis Peptic ulcer disease Urinary incontinence Rectal incontinence GERD (gastroesophageal reflux disease) Obesity (BMI 30-39.9) Bile salt-induced diarrhea Vaginal prolapse Renal artery stenosis Asthma Lumbar degenerative disc disease Insomnia TIA (transient ischemic attack) Hyperlipidemia, unspecified Essential hypertension Surgical History Hx of colonoscopy History of esophagogastroduodenoscopy (EGD) History of removal of cyst (~10/17/21) History of hemorrhoidectomy History of colectomy History of section History of hysterectomy History of appendectomy History of cholecystectomy Family History Father Cancer Arterial thrombosis Mother Multiple sclerosis Muscular dystrophy Hypertension Depression Chronic mental illness Mental health disorder Brother No problems noted. Brother Gangrene Sister No problems noted. Son No problems noted. Son No problems noted. Son No problems noted. Son No problems noted. Daughter No problems noted. Daughter No problems noted. Daughter No problems noted. Social History Housing: Apartment Alcohol intake: never Patient Tobacco Use Status: Former Tobacco user Tobacco use type: Cigarette Years Smoked: 1996 quit e-Cigarette/Vaping Use: Never Used Second Hand Smoke Exposure: No service: No Current occupational status: disabled Current occupational exposures/hazards: No Cognitive needs: Yes Hearing needs: Yes Vision needs: Yes Questionnaire PHQ-9 Over the last 2 weeks, how often have you been bothered by any of the following problems? 1. Little interest or pleasure in doing things: several days 2. Feeling down, depressed, or hopeless: several days 3. Trouble falling or staying asleep, or sleeping too much: nearly every day 4. Feeling tired or having little energy: more than half the days 5. Poor appetite or overeating: not at all 6. Feeling bad about yourself - or that you are a failure or have let yourself or your family down: not at all 7. Trouble concentrating on things, such as reading the newspaper or watching television: not at all 8. Moving or speaking so slowly that other people could have noticed. Or the opposite - being so fidgety or restless that you have been moving around a lot more than usual: not at all 9. Thoughts that you would be better off or of hurting yourself in some way: not at all Total score: 7 Depression Screening Interpretation: Positive Depression Screening Follow-up: Existing condition Depression Screening Done: Yes 57176 - PHQ-9 Billing: Yes Source: Developed by Drs. Brandon Villeda, Vjiaya Damon, Jaydon Easley and colleagues, with an educational phi from [employer]. Thrive Questionnaire Date Thrive assessed: 06/13/23 I am a: Patient What is your living situation today?: I have a steady place to live Within the past 12 months, did the food you bought not last and you didn't have the money to get more?: Never true Within the past 12 months, did you worry whether your food would run out before you got money to buy more?: Never true Do you have trouble paying for medicines?: No Do you have trouble getting transportation to medical appointments?: No Do you have trouble paying your heating and electricity bill?: No Do you have trouble taking care of your child, family member or friend?: No Do you have trouble with day-to-day activities such as bathing, preparing meals, shopping, managing finances, etc.?: No Are you currently unemployed and looking for a job?: No Are you interested in more education?: No Please select the resources that you would like help with: None AUDIT C Alcohol Use Questionnaire (AUDIT-C) 1. How often do you have a drink containing alcohol?: Never Total Score: 0 Score Reviewed/Action Taken: No MERY-7 AMB Questionnaire MERY-7 Date MERY - 7 assessed: 06/13/23 Feeling nervous, anxious, or on edge: 0 = Not at all Not being able to stop or control worryin = Not at all Worrying too much about different things: 0 = Not at all Trouble relaxin = Not at all Being so restless that it is hard to sit still: 0 = Not at all Becoming easily annoyed or irritable: 0 = Not at all Feeling afraid as if something awful might happen: 0 = Not at all Total MERY-7 score (0-4 normal; 5-9 mild; 10-14 moderate; 15-21 severe): 0 Source: Developed by Drs. Brandon Villeda, Vijaya Damon, Jaydon Easley and colleagues, with an educational phi from [employer]. Physical exam (Primary Care) Vital Signs: Last Vital Signs Pulse 68 06/13/23 12:55 BP 112/62 06/13/23 12:55 Pulse Ox 98 06/13/23 12:55 Oxygen Delivery Method Room Air 06/13/23 12:55 BMI result Body Mass Index 32.4 Tobacco/Smoking Status: Tobacco use Status Tobacco use date assessed 06/13/23 06/13/23 12:58 Patient Tobacco Use Status Former Tobacco user 06/13/23 12:58 Tobacco use type Cigarette 06/13/23 12:58 e-Cigarette/Vaping Use Never Used 06/13/23 12:58 PHQ-9: PHQ-9 Score PHQ-9: Total score 7 06/13/23 13:32 Depression Screening Interpretation: Positive Depression Screening Follow-up: Existing condition Thrive Assessment: Date of Thrive Assessment Date Thrive assessed 06/13/23 06/13/23 12:58 Const General: alert; No acute distress Eyes Conjunctivae: conjunctivae normal Resp Auscultation: clear to auscultation bilaterally Cardio Rate: regular rate Rhythm: regular rhythm GI Inspection: Yes normal to inspection Extrem General: Yes normal to inspection and No edema Results AMB Hemoglobin A1c AMB Hemoglobin A1c 7.5 % Last Edit by AUSTIN Bhatt on 06/13/23 13:09 Results Reviewed Results Reviewed: Laboratory Last Values Hgb A1c (Clinic) 7.5 % (4.0-6.0) H 06/13/23 13:01 Assessment and Plan Assessment & Plan (1) Type 2 diabetes mellitus with hyperglycemia: Code(s): E11.65 - Type 2 diabetes mellitus with hyperglycemia Qualifiers: 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 Hemoglobin A1c goal of less than 7.0 patient on diet control right now (2) Anemia: Code(s): D64.9 - Anemia, unspecified Plan: Will need to follow-up iron deficiency on iron and vitamin-C (3) Paroxysmal atrial fibrillation: Code(s): I48.0 - Paroxysmal atrial fibrillation Plan: Continue with anticoagulation patient on apixaban/Eliquis (4) Essential hypertension: Code(s): I10 - Essential (primary) hypertension Plan: Continue with blood pressure medication. Decrease salt intake and exercise patient takes metoprolol 100 mg once a day nifedipine 60 mg once a day (5) Hyperlipidemia, unspecified: Code(s): E78.5 - Hyperlipidemia, unspecified Qualifiers: Hyperlipidemia type: unspecified Qualified Code(s): E78.5 - Hyperlipidemia, unspecified Plan: Avoid fried foods, chicken skin, eggs, butter margarine, pastries and meat. Be it pork or beef they have a lot of cholesterol LDL goal of less than 70 and triglyceride of less than 150 (6) Obesity (BMI 30-39.9): Code(s): E66.9 - Obesity, unspecified Plan: Diet and exercise (7) GERD (gastroesophageal reflux disease): Code(s): K21.9 - Gastro-esophageal reflux disease without esophagitis Qualifiers: Esophagitis presence: without esophagitis Qualified Code(s): K21.9 - Gastro-esophageal reflux disease without esophagitis Plan: Avoid the foods that causes that usually spicy foods, tomato products, juices, coffee, soda and foods that your sensitive to. After eating do not lie down, allow 3-4 hours before in lie down. And keep the head of bed above 30 degrees to avoid the acid from going up. Orders: Orders Comprehensive Met. Panel Today E11.65 - Type 2 diabetes mellitus with hyperglycemia Ferritin Today E11.65 - Type 2 diabetes mellitus with hyperglycemia Vitamin B12 and Folate Today E11.65 - Type 2 diabetes mellitus with hyperglycemia AMB Hemoglobin A1c Today E11.65 - Type 2 diabetes mellitus with hyperglycemia Complete Blood Count Auto Diff Today E11.65 - Type 2 diabetes mellitus with hyperglycemia Free T4 (Free Thyroxine) Today E11.65 - Type 2 diabetes mellitus with hyperglycemia IRON PROFILE Today E11.65 - Type 2 diabetes mellitus with hyperglycemia Reticulocyte Count Today E11.65 - Type 2 diabetes mellitus with hyperglycemia Lipid Panel Today E11.65 - Type 2 diabetes mellitus with hyperglycemia, E78.00 - Pure hypercholesterolemia, unspecified Thyroid Stimulating Hormone Today E11.65 - Type 2 diabetes mellitus with hyperglycemia B Type Natriuretic Peptide Today E11.65 - Type 2 diabetes mellitus with hyperglycemia Magnesium Today E11.65 - Type 2 diabetes mellitus with hyperglycemia Phosphorus Today E11.65 - Type 2 diabetes mellitus with hyperglycemia Medications: New tramadol 50 mg PO DAILY 30 tabs 0RF M25.562 - Pain in left knee tramadol 50 mg PO DAILY 90 tabs 0RF M25.562 - Pain in left knee Coding Level of Care Code Est Pt Level 4 (53632) Diagnoses Type 2 diabetes mellitus with hyperglycemia, without long-term current use of insulin E11.65 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
== END 2023-06-13 14:07 | disposition home or self-care (01) ==
PROVIDERS: PCP Internal Medicine; Visit Provider Internal Medicine
DX: E11.65 Type 2 diabetes mellitus with hyperglycemia (principal); I48.0 Paroxysmal atrial fibrillation; E66.9 Obesity, unspecified; Z68.32 Body mass index [BMI] 32.0-32.9, adult; D64.9 Anemia, unspecified; I10 Essential (primary) hypertension; E78.5 Hyperlipidemia, unspecified; K21.9 Gastro-esophageal reflux disease without esophagitis
CPT/HCPCS: 83036; 99214

== ENCOUNTER 2023-06-30 10:04 | Outpatient (REF) | payer MEDICARE, OTHER, SELFPAY | END 2023-06-30 10:05 | disposition home or self-care (01) | LOC: HO.SH 10:04 | PROVIDERS: Visit Provider Internal Medicine | DX: Z01.118 Encounter for examination of ears and hearing with other abnormal findings (principal); H90.3 Sensorineural hearing loss, bilateral | CPT/HCPCS: 92557; 92567 ==

== ENCOUNTER 2023-08-05 10:09 | Inpatient (IN) | payer MEDICARE, OTHER, SELFPAY ==
[2023-08-05] VITALS (8 sets, daily range): BP systolic 131–170; BP diastolic 63–90; PULSE 67–107; RESP 13–18; TEMP 36.3–36.6; O2SAT 84–97; BMI 28.3
--- NOTE | ~2023-08-05 | CT_ITS ---
EXAMINATION: CT HEAD WITHOUT CONTRAST CLINICAL INFORMATION: Dizziness. COMPARISON: Head CT dated 10/11/2013. TECHNIQUE: Contiguous axial imaging was performed from the skullbase to vertex without intravenous administration of contrast. This CT examination was performed using dose optimization techniques as appropriate, variously including the following: *Automated exposure control *Adjustment of mA and/or kV according to patient size (this includes techniques or standardized protocols for targeted exams where dose is matched to indication/reason for exam; i.e. extremities or head) *Use of iterative reconstruction technique DLP: 732 mGy-cm. FINDINGS: There is no evidence of acute intracranial hemorrhage or territorial infarction. No abnormal mass effect or midline shift is seen. Mckeon to white matter differentiation is well preserved. No extra-axial fluid collections are identified. No imaging findings of hydrocephalus. Moderate diffuse brain parenchymal volume loss noted with mild chronic white matter microangiopathic changes. The osseous structures and soft tissues are normal. The mastoid air cells and visualized portions of the paranasal sinuses are fairly well aerated. CT/CT head/brain wo IV con IMPRESSION: No acute intracranial hemorrhage or territorial infarction. Moderate generalized brain parenchymal volume loss and mild chronic white matter microangiopathy.
--- NOTE | ~2023-08-05 | CT_ITS ---
EXAMINATION: CT ANGIOGRAM OF THE CHEST WITH AND WITHOUT CONTRAST (CT PULMONARY ANGIOGRAM FOR PE) CLINICAL INFORMATION: Reason for Exam hypoxia COMPARISON: None available. TECHNIQUE: Prior to contrast administration, noncontrast localization images were obtained. Subsequently, multidetector volumetric imaging was performed from the thoracic inlet to below the diaphragms following the administration of 65 mL Omnipaque 350 intravenous contrast. No contrast reaction reported Sagittal, coronal, and MIP oblique sagittal reformatted images were obtained on the CT workstation, uploaded to PACS, and reviewed. This CT examination was performed using dose optimization techniques as appropriate, variously including the following: *Automated exposure control *Adjustment of mA and/or kV according to patient size (this includes techniques or standardized protocols for targeted exams where dose is matched to indication/reason for exam; i.e. extremities or head) *Use of iterative reconstruction technique Total exam dose-length product 213 mGy-cm FINDINGS: QUALITY OF STUDY/CONTRAST BOLUS: Satisfactory. PULMONARY ARTERIES: No pulmonary emboli. THORACIC AORTA: No aneurysm. LUNG: No suspicious abnormality the trachea. Expiratory results with low lung volumes. This likely accounts for the dependent lung densities. There are a few linear opacities which could be atelectasis. There is no definite alveolar edema. No generalized thickening of the interlobular septa. PLEURA: No pleural effusion or pneumothorax. MEDIASTINUM: There are no enlarged lymph nodes. There is a small hiatal hernia. No evidence of septal bowing or right heart strain. CORONARY ARTERY CALCIFICATION: There is moderate coronary calcification CHEST WALL/AXILLA: No axillary or internal mammary lymphadenopathy. OSSEOUS STRUCTURES: No acute or suspicious osseous abnormality. UPPER ABDOMEN: Unchanged circumscribed low attenuating abnormality in the left lobe of the liver. Partially included cyst upper pole right kidney does not require any specific imaging follow-up. No reflux of contrast into the hepatic veins to suggest elevated right heart pressures. CT/CT angio chest PE protocol IMPRESSION: No pulmonary embolus demonstrated. Hypoinflation limits assessment of the lungs. There is a small hiatal hernia. VTE: negative
--- NOTE | ~2023-08-05 | XR_ITS ---
EXAMINATION: XR CHEST CLINICAL INFORMATION: Cough COMPARISON: Prior chest October 2022 TECHNIQUE: Frontal view of the chest was obtained. FINDINGS: Minimal linear opacity left costophrenic angle similar to prior likely scarring versus recurrent atelectasis. Linear opacity right base compatible discoid atelectasis. Lungs otherwise clear. Calcification of the dorsal aorta cardiac mediastinal silhouette otherwise normal. Spondylosis of the spine. XR/XR chest 1V IMPRESSION: 1. Linear opacity left costophrenic angle likely scarring versus recurrent atelectasis. 2. Discoid atelectasis right base.
--- NOTE | 2023-08-05 10:14 | ED_ITS ---
HPI - General Adult General Chief complaint: Nausea/Vomiting/Diarrhea Stated complaint: N/V Time Seen by Provider: 08/05/23 10:14 Source: patient and EMS Mode of arrival: EMS Limitations: no limitations History of Present Illness HPI narrative: Patient is an 88 year old female with a history of CHF, diverticulitis, DM (w/ diabetic neuropathy), atrial fibrillation, HTN, and HLD, with a year of feeling unwell and worsening N/V/D over the last 2 days. Patient reports she was recently seen and discharged at [facility] on 08/03/2023 for similar symptoms that have yet to resolve. Denies dizziness, lightheadedness, changes to vision, chest pain, changes to bowel/urinary habits, or body aches. Onset (ago): day(s) (2-3) Location: abdomen Radiation: non-radiation Severity: mild Severity scale (1-10): 2 Quality: dull Pain Consistency: intermittent Relieving factors: none Exacerbating factors: none Associated symptoms: headaches, nausea/vomiting and weakness Treatments prior to arrival: none Related Data Home Medications Medication Instructions Recorded Confirmed cholecalciferol (vitamin D3) 25 25 mcg PO DAILY 08/26/22 06/13/23 mcg (1,000 unit) capsule psyllium husk 3.4 gram/5.4 gram 1 tbsp PO DAILY 03/03/23 06/13/23 oral powder (Metamucil) Previous Rx's Medication Instructions Recorded albuterol sulfate 90 mcg/actuation 1 puff inhalation QID 90 days #8.5 08/13/21 aerosol inhaler (ProAir HFA) grams mometasone 0.1 % topical cream 1 appl topical DAILY 2 weeks #45 04/23/22 grams blood sugar diagnostic (FreeStyle #100 ea 08/30/22 Lite Strips) lancets 28 gauge (FreeStyle #100 ea 08/30/22 Lancets) dexlansoprazole 60 mg 60 mg PO DAILY #90 caps 09/02/22 capsule,biphase delayed release (Dexilant) promethazine 12.5 mg tablet 12.5 mg PO TID PRN nausea and 10/29/22 vomiting 7 days #21 tabs apixaban 2.5 mg tablet (Eliquis) 2.5 mg PO BID #180 tabs 12/18/22 atorvastatin 40 mg tablet (Lipitor) 40 mg PO DAILY #90 tabs 02/25/23 diclofenac sodium 1 % topical gel 4 g topical QID #300 grams 02/25/23 (Arthritis Pain (diclofenac)) furosemide 40 mg tablet 40 mg PO DAILY #90 tabs 04/07/23 hydrocortisone 2.5 % topical cream 1 appl ID BID-QID PRN hemorrhoids 04/07/23 with perineal applicator #30 grams (Proctosol HC) metoprolol succinate 100 mg 100 mg PO DAILY 90 days #90 tabs 04/07/23 tablet,extended release 24 hr montelukast 10 mg tablet 10 mg PO DAILY #90 tabs 04/07/23 (Singulair) nifedipine 60 mg tablet,extended 60 mg PO DAILY #90 tabs 04/07/23 release alprazolam 0.25 mg tablet 0.25 mg PO DAILY anxiety 30 days 05/14/23 #30 tabs zolpidem 5 mg tablet 5 mg PO BEDTIME PRN insomnia 90 05/22/23 days #90 tabs ascorbate calcium (vitamin C) 500 500 mg PO DAILY #30 tabs 06/09/23 mg tablet folic acid 1 mg tablet 1 mg PO DAILY #90 tabs 06/09/23 tramadol 50 mg tablet 50 mg PO DAILY #90 tabs 06/13/23 pregabalin 100 mg capsule 100 mg PO Q12H 30 days #60 caps 08/04/23 Allergies Allergy/AdvReac Type Severity Reaction Status Date / Time ciprofloxacin Allergy Severe unknown Verified 08/05/23 10:43 aspirin [Aspirin] Allergy Unknown UNKNOWN Verified 08/05/23 10:43 cefuroxime Allergy Unknown Unknown Verified 08/05/23 10:43 celecoxib [From Celebrex] Allergy Unknown UNKNOWN Verified 08/05/23 10:43 metformin Allergy Unknown diarrhea Verified 08/05/23 10:43 risedronate sodium Allergy Unknown UNKNOWN Verified 08/05/23 10:43 [From Actonel] Sulfa (Sulfonamide Allergy Unknown unknown Verified 08/05/23 10:43 Antibiotics) bupropion AdvReac Intermediate tremor Verified 08/05/23 10:43 ferrous sulfate AdvReac Intermediate tremors Verified 08/05/23 10:43 sertraline AdvReac Intermediate tremors Verified 08/05/23 10:43 Review of Systems 2 Constitutional: Constitutional: Denies body ache(s), Denies chills, Denies fever(s), Reports headache(s), Denies night sweats and Reports weakness Eyes: Eyes: Reports no additional eye complaints, Denies blurry vision, Denies change in vision, Denies diplopia, Denies eye discharge, Denies loss of vision and Denies eye pain ENT: Denies dizziness, Reports headache(s), Reports nasal congestion, Reports nasal discharge and Reports sinus pressure Cardiovascular: Cardiovascular: Denies chest pain, Denies lightheadedness and Denies Loss of Consciousness Gastrointestinal: Gastrointestinal: Reports abdominal pain, Denies melena, Denies hematochezia, Denies change in bowel habits, Denies change in stool character, Reports GI cramping, Reports diarrhea, Reports loose stools, Reports nausea and Reports vomiting Genitourinary: Genitourinary: Denies hematuria, Denies urinary frequency, Denies dysuria, Denies urinary incontinence, Denies urinary hesitancy and Denies urinary urgency Musculoskeletal: Musculoskeletal: Reports no additional musculoskeletal complaints, Denies numbness and Denies tingling Neurologic: Denies dizziness, Reports headache(s), Denies loss of vision, Denies numbness, Denies tingling and Reports weakness Psychiatric: Psychiatric: Reports no additional psychiatric complaints Endocrine: Endocrine: Reports no additional endocrine complaints Hematologic/Lymphatic: Hematologic/Lymphatic: Reports no additional hematologic/lymphatic complaints Allergic/Immunologic: Allergic/Immunologic: Reports no additional allergic/immunologic complaints [facility] Past Medical History Attestation statement: The following information was validated with the patient. Source: old records reviewed and nursing notes reviewed Medical History Hypokalemia Hypomagnesemia Diarrhea Hearing difficulty Dyspnea on exertion History of gastrointestinal diverticular hemorrhage COVID-19 virus infection Rectal bleeding Medicare annual wellness visit, initial Hip pain, left Patellar sleeve fracture of right knee Knee pain, right Nausea and vomiting Coarse tremors Shoulder pain, right Hospital discharge follow-up Mass on back Constipation Tinea corporis Nausea Right wrist pain Left knee pain Left hip pain Toe pain, left Breast cancer screening by mammogram UTI (urinary tract infection) Type 2 diabetes mellitus with hyperglycemia Obesity (BMI 30-39.9) Lipoma of lower back Urinary frequency Toe fracture, left Pancreatic cyst Osteoporosis Peptic ulcer disease Urinary incontinence Rectal incontinence GERD (gastroesophageal reflux disease) Bile salt-induced diarrhea Vaginal prolapse Renal artery stenosis Asthma Lumbar degenerative disc disease Insomnia TIA (transient ischemic attack) Hyperlipidemia, unspecified Essential hypertension Surgical History Hx of colonoscopy History of esophagogastroduodenoscopy (EGD) History of removal of cyst (~10/17/21) History of hemorrhoidectomy History of colectomy History of section History of hysterectomy History of appendectomy History of cholecystectomy Family History Family History Father Cancer Arterial thrombosis Mother Multiple sclerosis Muscular dystrophy Hypertension Depression Chronic mental illness Mental health disorder Brother No problems noted. Brother Gangrene Sister No problems noted. Son No problems noted. Son No problems noted. Son No problems noted. Son No problems noted. Daughter No problems noted. Daughter No problems noted. Daughter No problems noted. Social History Social History Housing: Apartment Alcohol intake: never Patient Tobacco Use Status: Former Tobacco user Tobacco use type: Cigarette Years Smoked: 1996 quit e-Cigarette/Vaping Use: Never Used Second Hand Smoke Exposure: No Advance Directives: Yes Advance Directives Information Provided: Yes Advance Directives on File: No service: No Current occupational status: disabled Current occupational exposures/hazards: No Cognitive needs: Yes Hearing needs: Yes Vision needs: Yes Physical Exam ED Vital Signs: Vital Signs - 24 hr 08/05/23 10:40 08/05/23 11:12 Temperature 97.6 F Pulse Rate 67 72 Respiratory Rate 18 16 Blood Pressure 146/65 H Pulse Oximetry 91 L Oxygen Delivery Method Room Air BMI result Body Mass Index 28.3 Const General: cooperative, alert and awake Nutritional Appearance: well nourished Orientation/consciousness: patient oriented x3 Limitations: no limitations HENMT Head: Yes normal to inspection and Yes atraumatic Ears: hearing grossly normal bilaterally and external ears normal General nose exam: Normal external nose present, no nasal discharge noted and no epistaxis Face and sinus: Yes normal facial exam, No abrasion and No laceration Mouth: Normal oral and palatal mucosa present, no drooling and no muffled voice Eyes General: appearance normal, both eyes and all related structures Periorbital: periorbital findings normal Eyelids: Yes eyelids normal Conjunctivae: conjunctivae normal Pupils: Equal, round and reactive pupils present EOM: EOMs intact bilaterally Neck Neck: Yes normal visual inspection, Yes full ROM and Yes no lymphadenopathy Chest Chest palpation & inspection: normal inspection of the chest Resp Effort & Inspection: able to speak in complete sentences and labored Cardio Jugular venous distension: no JVD Palpation: normal PMI Rate: regular rate Rhythm: regular rhythm GI Inspection: Yes normal to inspection Palpation (GI): Soft to palpation, not firm, Tenderness to palpation present (GI) other (diffuse), no guarding and not rigid Neuro General: patient oriented x3 Cranial nerves: Yes Equal, round and reactive pupils present Cognition (Neuro): normal cognition Motor exam (neuro): 5/5 motor strength present throughout Sensory Exam: Normal double simultaneous stimulation for sensation Coordination: [id number] test normal Extrem General: Yes normal to inspection, Yes full ROM and Yes capillary refill normal Psych Appearance: grossly normal Mental Status: mental status grossly normal Affect: normal affect Attitude: cooperative Thought process: Normal thought process present Thought content: Normal thought content present Insight: Good insight present (Psych) Medications Administered Discontinued Medications Generic Name Dose Route Start Last Admin Trade Name Freq PRN Reason Stop Dose Admin Albuterol/Ipratropium 3 ml 08/05/23 11:08 08/05/23 11:11 Albuterol/Iprat 2.5/0.5mg 3 Ml Ampul.Neb INHALE 08/05/23 11:09 3 ml ONCE ONE Administration Sodium Chloride 1,000 mls @ 999 mls/hr 08/05/23 10:30 08/05/23 12:54 Ns IV 08/05/23 11:30 Infused .Q1H1M JAREK Infusion Lorazepam 1 mg 08/05/23 10:26 08/05/23 10:49 Lorazepam 2 Mg/Ml Vial IVPUSH 08/05/23 10:27 1 mg ONCE ONE Administration Ondansetron HCl 4 mg 08/05/23 10:18 08/05/23 11:00 Ondansetron Hcl 4 Mg/2 Ml Vial IVPUSH 08/05/23 10:19 Not Given ONCE ONE Potassium Chloride 20 meq 08/05/23 11:34 08/05/23 12:23 Potassium Chloride Er 20 Meq Tab.Er.Prt PO 08/05/23 11:35 Not Given ONCE ONE Medical Decision Making Medical Decision Making [facility] Narrative: Patient is an 88 year old assigned female at with a history of CHF, atrial fib, and anemia presenting to the emergency department today with feeling generally unwell for over a year and nausea/vomiting over the last 2 days. Patient's physical exam was unremarkable. Patient's blood work was unremarkable. Patient's urine showed no acute process. Patient's EKG was unremarkable. Patient's chest x-ray showed no acute process. I reviewed the CT abdomen/pelvis results from [facility] ED on 08/02/2023 that showed no acute process. I explained my physical exam findings as well as all test results to the patient. I answered all questions asked by the patient. Patient lives alone and does not seem suitable for discharge home alone given her weakness. Physician observation begins. Patient will be evaluated by physical therapy and case management. Differential Diagnosis Differential Diagnoses: The differential diagnosis associated with the presentation includes Viral illness Weakness Failure to thrive Anxiety Admission/Observation Consideration of admission/observation: Escalation of care including admission/observation considered Patient would have been admitted to the hospital had her work up had any findings where hospital admission was appropriate and her clinical presentation warranted hospital admission. Lab Data [facility] Lab Attestation statement: I reviewed the patient's lab results. My interpretation of these results are in the MDM Rationale portion of this note. 08/05/23 10:50 08/05/23 10:50 Labs: Lab Results 08/05/23 Range/Units 10:50 WBC 8.3 (4.8-10.8) X10*3/uL RBC 4.59 D (4.20-5.50) X10*6/uL Hgb 14.3 D (12.0-16.0) g/dl Hct 40.9 D (37.0-47.0) % MCV 89.1 (80.0-98.0) fL MCH 31.2 (27.0-33.0) pg MCHC 35.0 (31.0-35.0) g/dl RDW 13.6 (11.0-16.0) % Plt Count 224 D (160-400) X10*3/uL MPV 10.8 (9.4-12.3) fL Immature Gran % (Auto) 0.4 (0.0-0.4) % Neut % (Auto) 69.8 (45-73) % Lymph % (Auto) 16.7 L (20-40) % Talbot % (Auto) 12.5 H (2-11) % Eos % (Auto) 0.4 (0-4) % Baso % (Auto) 0.2 (0-2) % Lymph # (Auto) 1.4 (1.2-4.9) X10*3/uL Talbot # (Auto) 1.0 (0.1-1.2) X10*3/uL Eos # (Auto) 0.0 (0.0-0.4) X10*3/uL Baso # (Auto) 0.0 (0.0-0.2) X10*3/uL Abs Immat Gran (auto) 0.03 (0.00-0.03) X10*3/uL Absolute Neuts (auto) 5.8 (2.0-8.3) x10*3/uL Absolute Nucleated RBC 0.000 (0.0-0.012) X10*3/uL Nucleated RBC % (auto) 0.0 (0.0-0.2) /100WBC Sodium 141 (135-145) mmol/L Potassium 3.0 L (3.3-5.1) mmol/L Chloride 106 (96-108) mmol/L Carbon Dioxide 26 (22-29) mmol/L Anion Gap 12 (12-20) BUN 18 H (9-16) mg/dL Creatinine 1.01 (0.5-1.4) mg/dL Estim Creat Clear Calc 39.6 Estimated GFR 52 Random Glucose 184 H (60-115) mg/dL Calcium 10.1 (8.4-10.2) mg/dL Magnesium 1.6 (1.6-2.6) mg/dL Total Bilirubin 1.7 H (0.0-1.0) mg/dL AST 35 H (5-31) U/L ALT 29 (0-31) U/L Alkaline Phosphatase 93 (39-117) U/L Troponin I High Sens 13.4 (<3.5-17.0) ng/L Total Protein 6.8 (6.5-8.0) g/dL Albumin 3.8 (3.5-5.0) g/dL Influenza Type A (PCR) NEGATIVE (Negative) Influenza Type B (PCR) NEGATIVE (Negative) RSV RNA Qual (PCR) NEGATIVE (Negative) SARS-CoV-2 RNA (RT-PCR) NEGATIVE (Negative) Independent Interpretation I performed an independent interpretation of an: EKG and Plain X-Ray Interpretation: My interpretation is in agreement with the radiologist's impression of this imaging study. - EXAMINATION: XR CHEST CLINICAL INFORMATION: Cough COMPARISON: Prior chest October 2022 TECHNIQUE: Frontal view of the chest was obtained. FINDINGS: Minimal linear opacity left costophrenic angle similar to prior likely scarring versus recurrent atelectasis. Linear opacity right base compatible discoid atelectasis. Lungs otherwise clear. Calcification of the dorsal aorta cardiac mediastinal silhouette otherwise normal. Spondylosis of the spine. XR/XR chest 1V IMPRESSION: 1. Linear opacity left costophrenic angle likely scarring versus recurrent atelectasis. 2. Discoid atelectasis right base. Dictated By: Laci Becker MD Signed By: Electronically signed by Laci Becker MD 08/05/23 1349 - Vent. Rate: 081 BPM Atrial Rate: 081 BPM P-R Int: 152 ms QRS Dur: 082 ms QT Int: 402 ms P-R-T Axes: -09 -38 039 degrees QTc Int: 466 ms Normal sinus rhythm Left axis deviation Septal infarct (cited on or before 22-JUN-2019) Abnormal ECG When compared with ECG of 22-JUN-2019 12:50, Premature ventricular complexes are no longer Present ST now depressed in Inferior leads ST now depressed in Lateral leads Nonspecific T wave abnormality now evident in Inferior leads DD/ 1147 Radiology Impression Discussion of test interpretation with radiology: I have reviewed the radiologist's reading. Independent Historian Clinical information obtained from an independent historian. History obtained from or confirmed by: EMS (EMS provided additional history and confirmed the history provided by the patient.) Tests considered The following testing was considered but not selected: I considered obtaining a CT abdomen/pelvis however, the patient had a scan on 08/02/2023 that was unremarkable. Patient's presentation is the same and currently, does not warrant imaging. I explained to this patient who verbalized understanding and agreement. Critical Care Time Critical Care Time Critical Care Time: Yes Total Critical Care Time: 45 Attestation: I spent 45 minutes of Critical Care Time with this patient. This does not include time spent on separately reported billable procedures. Discharge Plan Discharge Clinical Impression: Nausea & vomiting, Weakness Patient Disposition: Still a Patient Prescriptions: No Action mometasone 0.1 % cream 1 appl topical DAILY 14 Days Qty: 45 0RF (DME) FreeStyle Lite Strips Strip See Rx Instructions .ROUTE .MEDSUPPLY Qty: 100 3RF Rx Instructions: Use 1 to test blood sugar once a day (DME) lancets [FreeStyle Lancets] 28 gauge misc See Rx Instructions .ROUTE .MEDSUPPLY Qty: 100 3RF Rx Instructions: use to test sugar once a day Dexilant 60 mg capsule,biphase delayed releas 60 mg PO DAILY Qty: 90 3RF Eliquis 2.5 mg tablet 2.5 mg PO BID Qty: 180 1RF nifedipine 60 mg tablet extended release 60 mg PO DAILY Qty: 90 2RF montelukast [Singulair] 10 mg tablet 10 mg PO DAILY Qty: 90 2RF metoprolol succinate 100 mg tablet extended release 24 hr 100 mg PO DAILY 90 Days Qty: 90 2RF furosemide 40 mg tablet 40 mg PO DAILY Qty: 90 2RF hydrocortisone [Proctosol HC] 2.5 % cream with perineal applicator 1 appl ID BID-QID PRN (Reason: hemorrhoids) Qty: 30 0RF alprazolam 0.25 mg tablet 0.25 mg PO DAILY 30 Days Qty: 30 2RF zolpidem 5 mg tablet 5 mg PO BEDTIME PRN (Reason: insomnia) 90 Days Qty: 90 1RF ascorbate calcium (vitamin C) 500 mg tablet 500 mg PO DAILY Qty: 30 4RF folic acid 1 mg tablet 1 mg PO DAILY Qty: 90 2RF pregabalin 100 mg capsule 100 mg PO Q12H 30 Days Qty: 60 2RF atorvastatin [Lipitor] 40 mg tablet 40 mg PO DAILY Qty: 90 3RF diclofenac sodium [Arthritis Pain (diclofenac)] 1 % gel 4 g topical QID Qty: 300 3RF Rx Instructions: apply to single knee, ankle, foot; for foot includes sole/toes/top of foot promethazine 12.5 mg tablet 12.5 mg PO TID PRN (Reason: nausea and vomiting) 7 Days Qty: 21 1RF albuterol sulfate [ProAir HFA] 90 mcg/actuation HFA aerosol inhaler 1 puff inhalation QID 90 Days Qty: 8.5 0RF tramadol 50 mg tablet 50 mg PO DAILY Qty: 90 0RF cholecalciferol (vitamin D3) 25 mcg (1,000 unit) capsule 25 mcg PO DAILY Metamucil 3.4 gram/5.4 gram powder 1 tbsp PO DAILY Rx Instructions: mix into at least 8 oz of water or juice before administering
--- NOTE | 2023-08-05 10:18 | ECG_ITS ---
Test Reason : nausea / vomitting Blood Pressure : / mmHG Vent. Rate : 081 BPM Atrial Rate : 081 BPM P-R Int : 152 ms QRS Dur : 082 ms QT Int : 402 ms P-R-T Axes : -09 -38 039 degrees QTc Int : 466 ms Normal sinus rhythm Left axis deviation Septal infarct (cited on or before 22-JUN-2019) Abnormal ECG When compared with ECG of 22-JUN-2019 12:50, Premature ventricular complexes are no longer Present ST now depressed in Inferior leads ST now depressed in Lateral leads Nonspecific T wave abnormality now evident in Inferior leads Referred By: Rachael Britt Electronically Signed By:Joby Vidal
[2023-08-05] MEDS: 0.9 % Sodium Chloride 1,000 ML 999 ML IV (10:45)
[2023-08-05] MEDS: LORazepam 2 MG/ML VIAL 1 MG IVPUSH (10:49)
[2023-08-05 11:11] LABS: MANUAL DIFF FLAG NO
[2023-08-05] MEDS: Albuterol/Iprat 2.5/0.5MG 3 ML AMPUL.NEB INHALE ×2 (11:11→19:23)
[2023-08-05 11:13] LABS: Basophils Percent Auto 0.2 % (0-2); Eosinophils Percent Auto 0.4 % (0-4); Hematocrit 40.9 % (37.0-47.0); Hemoglobin 14.3 g/dl (12.0-16.0); Imm Gran Abs Auto 0.03 X10*3/uL (0.00-0.03); Imm Gran Pct Auto 0.4 % (0.0-0.4); Lymphocytes Absolute Auto 1.4 X10*3/uL (1.2-4.9); Lymphocytes Percent Auto 16.7 % (20-40); Mean Corpuscular Hemoglobin 31.2 pg (27.0-33.0); Mean Corpuscular Volume 89.1 fL (80.0-98.0); Mean Platelet Volume 10.8 fL (9.4-12.3); Monocytes Percent Auto 12.5 % (2-11); Neutrophils Absolute Auto 5.8 x10*3/uL (2.0-8.3); Neutrophils Percent Auto 69.8 % (45-73); Platelet Count 224 X10*3/uL (160-400); Red Blood Count 4.59 X10*6/uL (4.20-5.50); Red Cell Distribution Width 13.6 % (11.0-16.0); White Blood Count 8.3 X10*3/uL (4.8-10.8)
[2023-08-05 11:28] LABS: Alanine Aminotransferase 29 U/L (0-31); Albumin Level 3.8 g/dL (3.5-5.0); Alkaline Phosphatase 93 U/L (39-117); Anion Gap 12 (12-20); Aspartate Amino Transferase 35 U/L (5-31); Bilirubin Total 1.7 mg/dL (0.0-1.0); Blood Urea Nitrogen 18 mg/dL (9-16); Calcium 10.1 mg/dL (8.4-10.2); Carbon Dioxide 26 mmol/L (22-29); Chloride 106 mmol/L (96-108); Creatinine Clr Calc Pharmacy 39.6; Estimated Glomerular Filt Rate 52; Glucose Random 184 mg/dL (60-115); Magnesium 1.6 mg/dL (1.6-2.6); Sodium 141 mmol/L (135-145); Total Protein 6.8 g/dL (6.5-8.0)
[2023-08-05 11:35] LABS: Troponin-I High Sensitivity 13.4 ng/L (<3.5-17.0)
[2023-08-05 12:02] LABS: Influenza A PCR NEGATIVE (Negative); Influenza B PCR NEGATIVE (Negative); Resp Syncy Virus RNA Qual PCR NEGATIVE (Negative); SARS COV2 PCR INHOUSE NEGATIVE (Negative)
--- NOTE | 2023-08-05 12:23 | PC.NURSE ---
pt unable to swallow potassium tablet- PA barbara hdz, med to be changed to powder packets
[2023-08-05] MEDS: Potassium Chloride Packet 20 MEQ PACKET 40 MEQ PO (14:27)
[2023-08-05 14:28] LABS: Troponin-I High Sensitivity 19.1 ng/L (<3.5-17.0)
--- NOTE | 2023-08-05 14:32 | MHC.CM.ED ---
Received case management consult from Rachael ARELLANO. Layo came to the ER due to nausea/vomiting. Work up essentially negative. Patient was also at [facility] this weekend. Negative work up there as well. T/W is trying to obtain records & HCP from [facility]. Physical therapy eval completed. Rehab is recommended. It doesn't appear patient has been inpatient in any facility in the past 30 days. Referral sent to all 3 acute rehabs. Continue to monitor for d/c needs.
--- NOTE | 2023-08-05 15:25 | MHC.EDTECH ---
This pct assumed care of patient at 1500,vitals taken and patient belonging list done ,patient is clean and dry ,and was reposition in bed .
--- NOTE | 2023-08-05 15:58 | MHC.CM.ED ---
Addendum entered by Latoya Palacio 08/05/23 21:18: TASK sent to [facility] for intake for home services. Addendum entered by Latoya Palacio 08/05/23 21:10: Patient will be admitted. Pt is not O2 dependent at home. Ambulated with tech, with SaO2 dropping to 84%. IMM 3/5. Copy given and one to Medical Records. Will alert [facility] of patient's hospitalization via [facility]. Original Note: CM met with patient at request of Rachael ARELLANO. Pt is alert and orientated x3. Pt lives alone. Uses a wheelchair, has a walker and cane, and furniture walks. Has no services at home. Does not drive. Is independent with ADL's. Admits she could use some help at home. Discussed [facility] referral-[employer], life [employer], laundry services, light housekeeping. Pt with generalized weakness and N&V. Covid negative. Medical workup negative. Pt on oxygen- sat 90% on 2L with PT evaluation. Pt does not use oxygen at home. Pt has HX of COPD. PT recommends STR. No qualifying medicare stay. No acute rehab bed offers. Pt states she cannot pay for STR. Is agreeable to home PT. Provider aware of above. Request to remove Oxygen and try to ambulate patient. CM cannot order new home oxygen from the ED. If patient de-sats, may need to be admitted. CM will follow for discharge planning.
--- NOTE | 2023-08-05 16:20 | MHC.EDTECH ---
patient went for a short walk ,to check o2 sat ,while standing Patient sat started at 97 % during walking Patient o2 sat drop to 84 %on room air ,MIKE Mcclelland was made aware ,Patient was assisted unto bedside commode ,had a small bowel movement ,care given ,patient back in bed .
[2023-08-05] MEDS: iohexoL 350 MG/ML 100 ML INFUS..BTL IV (17:22)
[2023-08-05 18:06] LABS: B Type Natriuretic Peptide 167 pg/mL (<100)
[2023-08-05 18:09] LABS: Appearance Urine Clear; Color Urine Yellow; Glucose Urine UA Negative (Negative); Leukocyte Esterase Urine Trace (Negative); Nitrite Urine Negative (Negative); UMIC TRIGGER UACC YES; Urine Blood Negative (Negative); Urine Ketones Negative (Negative); Urine Protein Negative (Neg-Trace)
[2023-08-05 18:11] LABS: Bacteria Urine None Seen (None Seen); Hyaline Casts Urine 0-2 /LPF (0-2); RBC Urine 0-2 /HPF (0-2); Squamous Epithelial Cell Urine 0-2 /HPF (0-2); WBC Urine 0-5 /HPF (0-5)
--- NOTE | 2023-08-05 18:21 | PC.NURSE ---
rec call from pt son kathie Bingham was also able to conference in pt PCP MD Reynaldo. reviewed case findings up to this point- all questions were answered, plan is to have hospitalist team eval pt for potential admission d/t decrease in SpO2 during ambulation.
--- NOTE | 2023-08-05 19:07 | PM.IMHP ---
History of Present Illness Date of Service: 08/05/23 Attending physician on admission: Elder Willis Chief Complaint: nausea and vomiting 88 year old female with history of anxiety, htn, paf on eliquis, hfpef, [id number] type 2 diabetes, CKD stage 3, history of lower GI bleed, iron deficiency anemia, osteoporosis, GERD, diabetic polyneuropathy, COPD who is a former smoker presents the ED earlier today for evaluation of nausea and vomiting as well as abdominal pain which she reports has been ongoing for 1 year. She states symptoms worsened recently with the re-initiation of ferrous sulfate which she had been taking for iron deficiency anemia. She was recently seen at [facility] ED on 08/01 for the same symptoms with CT abdomen/pelvis without any acute abnormality. She was advised to discontinue ferrous sulfate but she reports she continues taking this. She does take this with vitamin-C. She is able to tolerate p.o. most of the time, but does occasionally vomit. No hematemesis, melena, hematochezia. Reports occassional diarrhea. Last BM was this morning. She was found to be hypoxic to 84% on RA with ambulation. She does endorse MACKENZIE that has been ongoing for months and reports compliance with lasix. Denies weight gain, edema, sob at rest, cough, orthopnea, pnd, palpitations, or chest pain. Endorses positional lightheadedness. On arrival, VSS except for borderline hypoxia at 90%, resolved on admission with oximetry 95% at rest. She was noted to be hypoxic to 84% with ambulation. Hematology studies unremarkable. No anemia. Renal function baseline, electrolyte levels normal except for potassium 3.0. Total bili 1.7 (was 1.2 08/01). Initial trop 13, repeat 19, BNP 167. UA unremarkable. EKG NSR, rate 81, no michael or depressions. CXR shows linear opacity left costophrenic angle likely scarring versus recurrent atelectasis and discoid atelectasis at the right base. CTA chest negative for PE but shows hypoinflation and small hiatal hernia. In the ED, given DuoNeb, 1 L IV NS, lorazepam, 48 mEq potassium chloride. Review of Systems Review of Systems: General: No fevers, malaise, unintentional weight loss HEENT: No blurred vision, diplopia. No sore throat, nasal congestion, rhinorrhea, sinus pain, ear pain Cardiovascular: No chest pain, palpitations, or leg edema Respiratory: +mackenzie. No shortness of breath at rest, wheezing, cough GI: No abdominal pain, nausea, vomiting, diarrhea, constipation, melena, hematochezia : +n/v/d. No dysuria, hematuria, increased urinary frequency, decreased urinary output MSK: No myalgia, back pain Neuro: No headaches, weakness, paresthesias Skin: No rashes or lesions [facility] Medical History Hypokalemia Hypomagnesemia Diarrhea Hearing difficulty Dyspnea on exertion History of gastrointestinal diverticular hemorrhage COVID-19 virus infection Rectal bleeding Medicare annual wellness visit, initial Hip pain, left Patellar sleeve fracture of right knee Knee pain, right Nausea and vomiting Coarse tremors Shoulder pain, right Hospital discharge follow-up Mass on back Constipation Tinea corporis Nausea Right wrist pain Left knee pain Left hip pain Toe pain, left Breast cancer screening by mammogram UTI (urinary tract infection) Type 2 diabetes mellitus with hyperglycemia Obesity (BMI 30-39.9) Lipoma of lower back Urinary frequency Toe fracture, left Pancreatic cyst Osteoporosis Peptic ulcer disease Urinary incontinence Rectal incontinence GERD (gastroesophageal reflux disease) Bile salt-induced diarrhea Vaginal prolapse Renal artery stenosis Asthma Lumbar degenerative disc disease Insomnia TIA (transient ischemic attack) Hyperlipidemia, unspecified Essential hypertension Family History Father Cancer Arterial thrombosis Mother Multiple sclerosis Muscular dystrophy Hypertension Depression Chronic mental illness Mental health disorder Brother No problems noted. Brother Gangrene Sister No problems noted. Son No problems noted. Son No problems noted. Son No problems noted. Son No problems noted. Daughter No problems noted. Daughter No problems noted. Daughter No problems noted. Surgical History Hx of colonoscopy History of esophagogastroduodenoscopy (EGD) History of removal of cyst (~10/17/21) History of hemorrhoidectomy History of colectomy History of section History of hysterectomy History of appendectomy History of cholecystectomy Social History Household Members: None Housing: Apartment Do you presently have visiting nurse or other home services: No Alcohol intake: never Patient Tobacco Use Status: Former Tobacco user Tobacco use type: Cigarette Years Smoked: 1996 quit e-Cigarette/Vaping Use: Never Used Second Hand Smoke Exposure: No Use of substances other than those prescribed or required for medical reasons: No Have you been hit, kicked, punched, or otherwise hurt by someone within the past year? If so, by whom?: No Do you feel safe in your current relationship?: No Current Relationship Is there a partner from a previous relationship who is making you feel unsafe now?: No Are you made to feel afraid or neglected: No Advance Directives: Yes Advance Directives Information Provided: Yes Advance Directives on File: No Advance Directives Date on File: 08/06/23 Do you have thoughts of harming others: None Do you have a plan to hurt others: No Plan Recently lost weight without trying: No Nutrition Risks: No Nutritional Risk Patient : No : No Poor oral hygiene: No service: No Current occupational status: disabled Current occupational exposures/hazards: No Cognitive needs: Yes Hearing needs: Yes Vision needs: Yes Meds Allergies Allergy/AdvReac Type Severity Reaction Status Date / Time ciprofloxacin Allergy Severe unknown Verified 08/05/23 10:43 aspirin [Aspirin] Allergy Unknown UNKNOWN Verified 08/05/23 10:43 cefuroxime Allergy Unknown Unknown Verified 08/05/23 10:43 celecoxib [From Celebrex] Allergy Unknown UNKNOWN Verified 08/05/23 10:43 metformin Allergy Unknown diarrhea Verified 08/05/23 10:43 risedronate sodium Allergy Unknown UNKNOWN Verified 08/05/23 10:43 [From Actonel] Sulfa (Sulfonamide Allergy Unknown unknown Verified 08/05/23 10:43 Antibiotics) bupropion AdvReac Intermediate tremor Verified 08/05/23 10:43 ferrous sulfate AdvReac Intermediate tremors Verified 08/05/23 10:43 sertraline AdvReac Intermediate tremors Verified 08/05/23 10:43 Active Medications: Current Medications Dextrose (Dextrose 50 % 25 Gm/50 Ml Syringe) 25 gm IVPUSH Q15M PRN; Protocol PRN Reason: per Hypoglycemia Standing Ord. Glucose (Glucose Gel 15 Gm Gel..Gram.) 15 gm PO Q15M PRN; Protocol PRN Reason: per Hypoglycemia Standing Ord. Insulin Human Lispro (Insulin Lispro 100 Unit/Ml 3 Ml Vial) 0 unit [facility]BCUT [facility]; Protocol Home Medications Medication Instructions Recorded Confirmed Last Taken Type cholecalciferol (vitamin D3) 25 25 mcg PO DAILY 08/26/22 08/06/23 Unknown History mcg (1,000 unit) capsule psyllium husk 3.4 gram/5.4 gram 1 tbsp PO BID 03/03/23 08/06/23 Unknown History oral powder (Metamucil) ferrous sulfate 325 mg (65 mg 325 mg PO DAILY 08/05/23 08/05/23 Unknown History iron) tablet cyanocobalamin (vitamin B-12) 1,000 mcg PO DAILY 08/06/23 08/06/23 Unknown History 1,000 mcg tablet (Vitamin B-12) tramadol 50 mg tablet 50 mg PO DAILY PRN Pain 08/06/23 08/06/23 Unknown History Physical Exam Vital Signs and Narrative: Vital Signs: Last Vital Signs Temp 97.8 F 08/05/23 17:38 Pulse 86 08/05/23 17:38 Resp 16 08/05/23 17:38 BP 158/87 H 08/05/23 17:38 Pulse Ox 97 08/05/23 17:38 O2 Del Method Nasal Cannula 08/05/23 17:38 O2 Flow Rate 1 08/05/23 17:38 BMI result Body Mass Index 28.3 Constitutional - Awake and Alert, No apparent distress Eyes - PERRLA, EOMI Cardiovascular - S1S2, RRR, 1+ ble edema Respiratory - Normal lung expansion, Normal respiratory effort, No respiratory distress, scattered expiratory wheezing Gastrointestinal - NT / ND; +BS; No rebound or guarding Extremities - no calf tenderness bilaterally, no swelling Skin - Warm/Dry Neurological - Alert & oriented x3 Psychological - Appropriate affect Results Labs 08/06/23 04:59 08/06/23 04:59 Labs: Laboratory Results - last 24 hr 08/05/23 08/05/23 08/05/23 10:50 13:59 17:37 MCV 89.1 MCH 31.2 MCHC 35.0 RDW 13.6 Plt Count 224 D MPV 10.8 Immature Gran % (Auto) 0.4 Neut % (Auto) 69.8 Lymph % (Auto) 16.7 L Carson % (Auto) 12.5 H Eos % (Auto) 0.4 Baso % (Auto) 0.2 Lymph # (Auto) 1.4 Carson # (Auto) 1.0 Eos # (Auto) 0.0 Baso # (Auto) 0.0 Abs Immat Gran (auto) 0.03 Absolute Neuts (auto) 5.8 Absolute Nucleated RBC 0.000 Nucleated RBC % (auto) 0.0 Hold Purple Top SEE NOTE Anion Gap 12 Estim Creat Clear Calc 39.6 Estimated GFR 52 Random Glucose 184 H Calcium 10.1 Magnesium 1.6 Total Bilirubin 1.7 H AST 35 H ALT 29 Alkaline Phosphatase 93 Troponin I High Sens 13.4 19.1 H B-Natriuretic Peptide 167 H Total Protein 6.8 Albumin 3.8 Urine Color Urine Appearance Urine pH Ur Specific [place] Urine Protein Urine Glucose (UA) Urine Ketones Urine Blood Urine Nitrite Ur Leukocyte Esterase Urine RBC Urine WBC Ur Squamous Epith Cells Urine Bacteria Hyaline Casts Influenza Type A (PCR) NEGATIVE Influenza Type B (PCR) NEGATIVE RSV RNA Qual (PCR) NEGATIVE SARS-CoV-2 RNA (RT-PCR) NEGATIVE 08/05/23 17:54 MCV MCH MCHC RDW Plt Count MPV Immature Gran % (Auto) Neut % (Auto) Lymph % (Auto) Carson % (Auto) Eos % (Auto) Baso % (Auto) Lymph # (Auto) Carson # (Auto) Eos # (Auto) Baso # (Auto) Abs Immat Gran (auto) Absolute Neuts (auto) Absolute Nucleated RBC Nucleated RBC % (auto) Hold Purple Top Anion Gap Estim Creat Clear Calc Estimated GFR Random Glucose Calcium Magnesium Total Bilirubin AST ALT Alkaline Phosphatase Troponin I High Sens B-Natriuretic Peptide Total Protein Albumin Urine Color Yellow Urine Appearance Clear Urine pH 7.0 Ur Specific [place] 1.020 Urine Protein Negative Urine Glucose (UA) Negative Urine Ketones Negative Urine Blood Negative Urine Nitrite Negative Ur Leukocyte Esterase Trace H Urine RBC 0-2 Urine WBC 0-5 Ur Squamous Epith Cells 0-2 Urine Bacteria None Seen Hyaline Casts 0-2 Influenza Type A (PCR) Influenza Type B (PCR) RSV RNA Qual (PCR) SARS-CoV-2 RNA (RT-PCR) Imaging Radiologist's Impressions: Impressions Chest X-Ray 08/05/23 13:08 IMPRESSION: 1. Linear opacity left costophrenic angle likely scarring versus recurrent atelectasis. 2. Discoid atelectasis right base. Chest CTA 08/05/23 17:27 IMPRESSION: No pulmonary embolus demonstrated. Hypoinflation limits assessment of the lungs. There is a small hiatal hernia. VTE: negative Assessment and Plan (1) COPD exacerbation: Status: Acute (2) Exercise hypoxemia: Status: Acute (3) Nausea & vomiting: Status: Acute (4) Weakness: Status: Acute Plan 88 year old female with history of anxiety, htn, paf on eliquis, hfpef, [id number] type 2 diabetes, CKD stage 3, history of lower GI bleed, iron deficiency anemia, osteoporosis, GERD, diabetic polyneuropathy, COPD who is a former smoker admitted for copd exacerbation. #Acute asthma/COPD exacerbation with exercise hypoxemia -CTA chest negative for PE, but shows hypoinflation/atelectasis -IV methylprednisolone 40 mg b.i.d. -DuoNebs q.4h while awake -albuterol p.r.n. -no productive cough, defer antibiotics at this time #HFpEF -patient has BLE edema but is otherwise not seem volume overloaded -give single dose 40 mg IV Lasix x1, resume p.o. Lasix a.m. -strict I&O -cardiac diet -consider echocardiogram if not improving -last echo 10/22 at [facility] (sees cards at [facility]) showed normal LV systolic function with EF 60-65% and grade 2 diastolic dysfunction # acute hypokalemia -due to GI losses -repleted in ED -monitor lytes # chronic nausea/vomiting -possibly psychogenic though seems to have been exacerbated with ferrous sulfate re-initiation -hold ferrous sulfate -ondansetron p.r.n. -tolerating p.o. -outpatient follow-up with GI -psychiatry consult # positional lightheadedness -check orthostatic vital signs # severe anxiety/mood disorder -continue home benzos -psychiatry consult #Weakness -pt eval # [id number]-[id number] type 2 diabetes -POC glucose, diabetic diet -Humalog on sliding scale # paroxysmal atrial fibrillation-rate controlled -continue Eliquis for anticoagulation -continue metoprolol for rate control # CKD stage 3 -renal function baseline # chronic iron-deficiency anemia -H/H normal at 14.3/40.9 % -hold ferrous sulfate due to intolerance and stable H/H -if iron deficiency anemia recurs, consider iron infusions if indicated # diabetic polyneuropathy -continue tramadol DVT prophylaxis- eliquis Full code Pt requires inpatient stay at least 2 midnights for management of COPD exacerbation with exercise hypoxemia requiring IV steroids, DuoNeb scheduled, and close monitoring of vital signs. Quality Stroke Does the patient have a stroke diagnosis?: No VTE Prior VTE?: No VTE Risk Level:: Medical - moderate - high VTE Device Contraindication: Treatment Not Indicated VTE Drug Contraindication: N/A - Med Ordered
--- NOTE | 2023-08-05 19:30 | PC.NURSE ---
Assumed care of pt. Pt tremulous, stable. Pending pharmacy review for night time medications.
[2023-08-05 20:11] LABS: Glucose, Whole Blood 187 mg/dL (60-115)
[2023-08-05] MEDS: Furosemide 40 MG/4 ML VIAL IVPUSH (20:12)
[2023-08-05] MEDS: ALPRAZolam 0.25 MG TABLET PO (20:12)
[2023-08-05] MEDS: methylPREDNISolone Sod Succ 40 MG/ML VIAL IVPUSH (20:13)
[2023-08-05] MEDS: Insulin Lispro 100 UNIT/ML 3 ML VIAL SUBCUT (20:13)
--- NOTE | 2023-08-05 20:42 | PHA.MEDREC ---
Addendum entered by Yuli Vences [facility] 08/06/23 11:33: spoke with pharmacy and confirmed most reamining unconfirmed meds. Spoke to patient about PRN meds and albuterol. Pt was able to verbalize she takes medications PRN and stated she does not take promethazine. Original Note: Pharmacy Consult ? Medication Reconciliation Pharmacy has completed the medication reconciliation. patient very shakey and distracted, would not answer questions. Called family who gave me number to Krystin Lucero patient's neighbor. The list Krystin LUCERO gave me seem out of date. Confirm medications that PCP report stated patient should be on as well as medication on claim history and PDMP. Will have AM [facility] follow-up in the morning with [facility] [phone] to confirm what mediations are being filled. EILEEN Kwong aware of situation. Loreto Shah, MichaelD
[2023-08-05] MEDS: Pregabalin 100 MG CAPSULE PO (22:13)
[2023-08-05] MEDS: Acetaminophen 325 MG TABLET 650 MG PO (22:13)
[2023-08-05] MEDS: Apixaban 2.5 MG TABLET PO (22:13)
[2023-08-06] VITALS (10 sets, daily range): BP systolic 113–199; BP diastolic 56–91; PULSE 50–72; RESP 12–22; TEMP 35.8–36; O2SAT 92–98
[2023-08-06] MEDS: 0.9 % Sodium Chloride Flush 3 ML SYRINGE IVFLUSH ×3 (01:06→20:44)
[2023-08-06] MEDS: traMADoL HCL 50 MG TABLET PO (03:48)
[2023-08-06 06:44] LABS: MANUAL DIFF FLAG NO
[2023-08-06 06:47] LABS: Hematocrit 41.3 % (37.0-47.0); Imm Gran Abs Auto 0.03 X10*3/uL (0.00-0.03); Imm Gran Pct Auto 0.5 % (0.0-0.4); Lymphocytes Absolute Auto 0.6 X10*3/uL (1.2-4.9); Lymphocytes Percent Auto 11.2 % (20-40); Mean Corpuscular HGB Conc 33.9 g/dl (31.0-35.0); Mean Corpuscular Hemoglobin 31.4 pg (27.0-33.0); Mean Corpuscular Volume 92.6 fL (80.0-98.0); Mean Platelet Volume 11.4 fL (9.4-12.3); Monocytes Absolute Auto 0.1 X10*3/uL (0.1-1.2); Monocytes Percent Auto 1.4 % (2-11); Neutrophils Absolute Auto 4.8 x10*3/uL (2.0-8.3); Neutrophils Percent Auto 86.9 % (45-73); Platelet Count 191 X10*3/uL (160-400); Red Blood Count 4.46 X10*6/uL (4.20-5.50); Red Cell Distribution Width 14.1 % (11.0-16.0); White Blood Count 5.5 X10*3/uL (4.8-10.8)
[2023-08-06 07:07] LABS: Anion Gap 12 (12-20); Blood Urea Nitrogen 13 mg/dL (9-16); Calcium 9.7 mg/dL (8.4-10.2); Carbon Dioxide 26 mmol/L (22-29); Chloride 107 mmol/L (96-108); Creatinine Clr Calc Pharmacy 43.4; Estimated Glomerular Filt Rate 58; Glucose Random 227 mg/dL (60-115); Potassium 3.7 mmol/L (3.3-5.1); Sodium 141 mmol/L (135-145)
[2023-08-06 07:24] LABS: Glucose, Whole Blood 213 mg/dL (60-115)
[2023-08-06] MEDS: Insulin Lispro 100 UNIT/ML 3 ML VIAL SUBCUT ×4 (07:38→20:44)
[2023-08-06] MEDS: methylPREDNISolone Sod Succ 40 MG/ML VIAL IVPUSH ×2 (07:39→20:44)
--- NOTE | 2023-08-06 07:42 | PC.NURSE ---
Addendum entered by Anahi Laguna 08/06/23 07:44: Sat 92-97% on 2lpm [facility], no diff breathing or SOB noted. Original Note: Pt is alert/oriented. Attempted breakfast however vomiting moderate amount shortly after. Reports 5/10 headache. Skin pale, warm and dry. Speech clear. Pt appears generally weak. HTN, will attempt meds when pt reports nausea has subsided.
[2023-08-06] MEDS: Apixaban 2.5 MG TABLET PO ×2 (08:58→20:44)
[2023-08-06] MEDS: Ascorbic Acid 500 MG TABLET PO (08:58)
[2023-08-06] MEDS: ALPRAZolam 0.25 MG TABLET PO (08:58)
[2023-08-06] MEDS: NIFEdipine ER 60 MG TAB.ER.24 PO (08:58)
[2023-08-06] MEDS: Pregabalin 100 MG CAPSULE PO ×2 (08:58→20:44)
[2023-08-06] MEDS: Metoprolol Succinate ER 100 MG TAB.ER.24H PO (08:58)
[2023-08-06] MEDS: Acetaminophen 325 MG TABLET 650 MG PO ×2 (08:58→16:42)
[2023-08-06] MEDS: Furosemide 40 MG TABLET PO (08:58)
[2023-08-06 11:27] LABS: Glucose, Whole Blood 211 mg/dL (60-115)
--- NOTE | 2023-08-06 11:42 | P.PNIM_ITS ---
Subjective Subjective Date of Service: 08/06/23 Interval History: htn,chf ,copd Review of Systems sob somewhat improving dizziness with even sitting up no nausea or vomitin or headaches Physical Exam 2 Vital Signs: Vital Signs: Last Vital Signs Temp 96.4 F L 08/06/23 09:54 Pulse 60 08/06/23 10:22 Resp 22 H 08/06/23 09:54 BP 177/88 H 08/06/23 11:40 Pulse Ox 96 08/06/23 09:54 O2 Del Method Nasal Cannula 08/06/23 09:54 O2 Flow Rate 2 08/06/23 09:54 BMI result Body Mass Index 28.3 Appearance: Alert.? Oriented X3.? cvs: rrr, [id number] equivocal. res: air entry diminshed at bases , mild wheezing b/l abd: no rebound or guarding ,nt, bs present. ext pulses present , no cyanosis ,1+edema. neuro: axo3 , nonfocal. Objective Data Active Medications Acetaminophen (Acetaminophen 325 Mg Tablet) 650 mg PO Q6H PRN PRN Reason: Pain, Mild (Pain Scale 1-3) Last Admin: 08/06/23 08:58 Dose: 650 mg Documented By: RUPERT Alprazolam (Alprazolam 0.25 Mg Tablet) 0.25 mg PO DAILY [facility] Last Admin: 08/06/23 08:58 Dose: 0.25 mg Documented By: RUPERT Apixaban (Apixaban 2.5 Mg Tablet) 2.5 mg PO BID [facility] Last Admin: 08/06/23 08:58 Dose: 2.5 mg Documented By: RUPERT Ascorbic Acid (Ascorbic Acid 500 Mg Tablet) 500 mg PO DAILY [facility] Last Admin: 08/06/23 08:58 Dose: 500 mg Documented By: RUPERT Atorvastatin Calcium (Atorvastatin Calcium 40 Mg Tablet) 40 mg PO DAILY [facility] Cyanocobalamin (Cyanocobalamin (Vitamin B-12) 1,000 Mcg Tablet) 1,000 mcg PO DAILY [facility] Dextrose (Dextrose 50 % 25 Gm/50 Ml Syringe) 25 gm IVPUSH Q15M PRN; Protocol PRN Reason: per Hypoglycemia Standing Ord. Folic Acid (Folic Acid 1 Mg Tablet) 1 mg PO DAILY [facility] Furosemide (Furosemide 40 Mg Tablet) 40 mg PO DAILY [facility]; Protocol Last Admin: 08/06/23 08:58 Dose: 40 mg Documented By: RUPERT Glucose (Glucose Gel 15 Gm Gel..Gram.) 15 gm PO Q15M PRN; Protocol PRN Reason: per Hypoglycemia Standing Ord. Hydrocortisone (Hydrocortisone 2.5 % Rectal Cr 30 Gm Tube) 1 appl [place] BID-QID PRN PRN Reason: hemorrhoids Insulin Human Lispro (Insulin Lispro 100 Unit/Ml 3 Ml Vial) 0 unit SUBCUT QIDACHS [facility]; Protocol Last Admin: 08/06/23 11:39 Dose: 4 unit Documented By: RUPERT Levalbuterol HCl (Levalbuterol Hcl 1.25 Mg/3 Ml Vial.Neb) 1.25 mg INHALE RQ6H [facility] Last Admin: 08/06/23 06:04 Dose: Not Given Documented By: FARHAT Non-Admin Reason: Patient Refused Methylprednisolone Sodium Succinate (Methylprednisolone Sod Succ 40 Mg/Ml Vial) 40 mg IVPUSH Q12H [facility] Last Admin: 08/06/23 07:39 Dose: 40 mg Documented By: SHERITA Metoprolol Succinate (Metoprolol Succinate Er 100 Mg Tab.Er.24h) 100 mg PO DAILY [facility]; Protocol Last Admin: 08/06/23 08:58 Dose: 100 mg Documented By: RUPERT Montelukast Sodium (Montelukast Sodium 10 Mg Tablet) 10 mg PO DAILY [facility] Nifedipine (Nifedipine Er 60 Mg Tab.Er.24) 60 mg PO DAILY [facility] Last Admin: 08/06/23 08:58 Dose: 60 mg Documented By: RUPERT Non-Formulary Medication (Dexlansoprazole [Dexilant]) 60 mg PO DAILY [facility] Ondansetron HCl (Ondansetron Hcl 4 Mg/2 Ml Vial) 4 mg IVPUSH Q8H PRN PRN Reason: Nausea and Vomiting Pregabalin (Pregabalin 100 Mg Capsule) 100 mg PO BID [facility] Last Admin: 08/06/23 08:58 Dose: 100 mg Documented By: RUPERT Senna (Sennosides 8.6 Mg Tablet) 17.2 mg PO BEDTIME PRN PRN Reason: Constipation Sodium Chloride (0.9 % Sodium Chloride Flush 3 Ml Syringe) 3 ml IVFLUSH QSHIFT [facility] Last Admin: 08/06/23 07:40 Dose: 3 ml Documented By: SHERITA Vitamin D (Cholecalciferol (Vitamin D3) 25 Mcg Tablet) 25 mcg PO DAILY [facility] Zolpidem Tartrate (Zolpidem Tartrate 5 Mg Tablet) 5 mg PO BEDTIME PRN PRN Reason: insomnia Labs 08/06/23 04:59 08/06/23 04:59 Labs: Laboratory Results - last 24 hr 08/05/23 08/05/23 08/05/23 10:50 13:59 17:37 MCV MCH MCHC RDW Plt Count MPV Immature Gran % (Auto) Neut % (Auto) Lymph % (Auto) [place] % (Auto) Eos % (Auto) Baso % (Auto) Lymph # (Auto) [place] # (Auto) Eos # (Auto) Baso # (Auto) Abs Immat Gran (auto) Absolute Neuts (auto) Absolute Nucleated RBC Nucleated RBC % (auto) Hold Purple Top SEE NOTE Anion Gap Estim Creat Clear Calc Estimated GFR POC Glucose Random Glucose Calcium Troponin I High Sens 19.1 H B-Natriuretic Peptide 167 H Urine Color Urine Appearance Urine pH Ur Specific Freeman Urine Protein Urine Glucose (UA) Urine Ketones Urine Blood Urine Nitrite Ur Leukocyte Esterase Urine RBC Urine WBC Ur Squamous Epith Cells Urine Bacteria Hyaline Casts Influenza Type A (PCR) NEGATIVE Influenza Type B (PCR) NEGATIVE RSV RNA Qual (PCR) NEGATIVE SARS-CoV-2 RNA (RT-PCR) NEGATIVE 08/05/23 08/05/23 08/06/23 17:54 20:07 04:59 MCV 92.6 MCH 31.4 MCHC 33.9 RDW 14.1 Plt Count 191 MPV 11.4 Immature Gran % (Auto) 0.5 H Neut % (Auto) 86.9 H Lymph % (Auto) 11.2 L [place] % (Auto) 1.4 L Eos % (Auto) 0.0 Baso % (Auto) 0.0 Lymph # (Auto) 0.6 L [place] # (Auto) 0.1 Eos # (Auto) 0.0 Baso # (Auto) 0.0 Abs Immat Gran (auto) 0.03 Absolute Neuts (auto) 4.8 Absolute Nucleated RBC 0.000 Nucleated RBC % (auto) 0.0 Hold Purple Top Anion Gap 12 Estim Creat Clear Calc 43.4 Estimated GFR 58 POC Glucose 187 H Random Glucose 227 H Calcium 9.7 Troponin I High Sens B-Natriuretic Peptide Urine Color Yellow Urine Appearance Clear Urine pH 7.0 Ur Specific Freeman 1.020 Urine Protein Negative Urine Glucose (UA) Negative Urine Ketones Negative Urine Blood Negative Urine Nitrite Negative Ur Leukocyte Esterase Trace H Urine RBC 0-2 Urine WBC 0-5 Ur Squamous Epith Cells 0-2 Urine Bacteria None Seen Hyaline Casts 0-2 Influenza Type A (PCR) Influenza Type B (PCR) RSV RNA Qual (PCR) SARS-CoV-2 RNA (RT-PCR) 08/06/23 08/06/23 07:20 11:21 MCV MCH MCHC RDW Plt Count MPV Immature Gran % (Auto) Neut % (Auto) Lymph % (Auto) [place] % (Auto) Eos % (Auto) Baso % (Auto) Lymph # (Auto) [place] # (Auto) Eos # (Auto) Baso # (Auto) Abs Immat Gran (auto) Absolute Neuts (auto) Absolute Nucleated RBC Nucleated RBC % (auto) Hold Purple Top Anion Gap Estim Creat Clear Calc Estimated GFR POC Glucose 213 H 211 H Random Glucose Calcium Troponin I High Sens B-Natriuretic Peptide Urine Color Urine Appearance Urine pH Ur Specific Freeman Urine Protein Urine Glucose (UA) Urine Ketones Urine Blood Urine Nitrite Ur Leukocyte Esterase Urine RBC Urine WBC Ur Squamous Epith Cells Urine Bacteria Hyaline Casts Influenza Type A (PCR) Influenza Type B (PCR) RSV RNA Qual (PCR) SARS-CoV-2 RNA (RT-PCR) Assessment and Plan (1) COPD exacerbation: Status: Acute (2) Acute hypoxemic respiratory failure: Status: Acute Plan 88 year old female with history of anxiety, htn, paf on eliquis, hfpef, [id number] type 2 diabetes, CKD stage 3, history of lower GI bleed, iron deficiency anemia, osteoporosis, GERD, diabetic polyneuropathy, COPD who is a former smoker admitted for copd exacerbation. acute hypoxemic respirtaory failure sec to Acute asthma/COPD exacerbation,possible HFpEF. CTA chest negative for PE, but shows hypoinflation/atelectasis sob seems somewhat improving continue nebs ,steriods ,oxygen , incentive spirometry and chest physiotherapy for atelectasis. mild HFpEF excerebation-improving give single dose 40 mg IV Lasix x1. strict I&O,daily weight,cardiac diet last echo 10/22 at [facility] (sees cards at [facility]) showed normal LV systolic function with EF 60-65% and grade 2 diastolic dysfunction will consider repeat echocardiogram if not improving acute hypokalemia-due to GI losses repletedand resolved. chronic nausea/vomiting-possibly psychogenic though seems to have been exacerbated with ferrous sulfate re-initiation improving plan:hold ferrous sulfate continue ondansetron p.r.n.,outpatient follow-up with GI -psychiatry consult positional lightheadedness orthostatic vital signs negative , blood pressure seem elevated will add ct head also will adjust htn medications . severe anxiety/mood disorder-continue home benzos psychiatry consult uncontrolled htn :still suboptimal. continue metoprolol,procardia . may need to adjust htn meds if blood pressure persistently elevated. [id number] type 2 diabeteswith hyperglycemia : dm diet,HbA1 c levels fs with adjusted sliding scale. paroxysmal atrial fibrillation-rate controlled continue Eliquis and metoprolol for rate control CKD stage 3-renal function baseline chronic iron-deficiency anemia -H/H normal at 14.3/40.9 % -hold ferrous sulfate due to intolerance and stable H/H -if iron deficiency anemia recurs, consider iron infusions if indicated diabetic polyneuropathy-continue tramadol. Weakness-pt eval. DVT prophylaxis- eliquis Full code ongoing hospitlisation need : COPD exacerbation with exercise hypoxemia requiring IV steroids, DuoNeb scheduled, and close monitoring of vital signs and blood pressure control. Quality Stroke Does the patient have a stroke diagnosis?: No VTE Prior VTE?: No VTE Risk Level:: Medical - moderate - high VTE Device Contraindication: Treatment Not Indicated VTE Drug Contraindication: N/A - Med Ordered
--- NOTE | 2023-08-06 12:58 | MHC.CM.PN ---
Patient now admitted to room 361. Important Message from delivered. Patient reports she lives in an apartment alone, has strong support from neighbors. Her sister also lives nearby and provides support. Independent w/ ADL's. Uses a w/c, but also has a cane and walker at home. Has previously used [facility], but not currently active. Has never been to a SNF. EC to meet with patient to eval for home services. PCP Dr Jacobs HCP On file and verified, sister Lili is agent DP: PT rec STR. Patient has [facility] preference for [facility]. Referrals in place. CM will continue to follow.
[2023-08-06 14:05] LABS: Estimated Average Glucose 143 mg/dL; Hemoglobin A1c % 6.6 % (<6.0)
[2023-08-06 16:32] LABS: Glucose, Whole Blood 208 mg/dL (60-115)
[2023-08-06] MEDS: Omeprazole 20 MG CAPSULE.DR PO (17:42)
[2023-08-06 20:16] LABS: Glucose, Whole Blood 178 mg/dL (60-115)
[2023-08-06] MEDS: Zolpidem Tartrate 5 MG TABLET PO (22:27)
[2023-08-07] VITALS (7 sets, daily range): BP systolic 122–130; BP diastolic 58–62; PULSE 53–58; RESP 16–20; TEMP 36.2–36.7; O2SAT 90–95
[2023-08-07] MEDS: Omeprazole 40 MG CAPSULE.DR PO (06:20)
[2023-08-07 07:30] LABS: Glucose, Whole Blood 172 mg/dL (60-115)
[2023-08-07] MEDS: Acetaminophen 325 MG TABLET 650 MG PO ×3 (08:38→22:26)
[2023-08-07] MEDS: methylPREDNISolone Sod Succ 40 MG/ML VIAL IVPUSH ×2 (08:41→18:58)
[2023-08-07] MEDS: 0.9 % Sodium Chloride Flush 3 ML SYRINGE IVFLUSH ×3 (08:41→23:47)
[2023-08-07] MEDS: Cholecalciferol (Vitamin D3) 25 MCG TABLET PO (08:43)
[2023-08-07] MEDS: Montelukast Sodium 10 MG TABLET PO (08:44)
[2023-08-07] MEDS: Ascorbic Acid 500 MG TABLET PO (08:44)
[2023-08-07] MEDS: ALPRAZolam 0.25 MG TABLET PO (08:44)
[2023-08-07] MEDS: Pregabalin 100 MG CAPSULE PO ×2 (08:44→18:58)
[2023-08-07] MEDS: Folic Acid 1 MG TABLET PO (08:44)
[2023-08-07] MEDS: Metoprolol Succinate ER 100 MG TAB.ER.24H PO (08:44)
[2023-08-07] MEDS: NIFEdipine ER 60 MG TAB.ER.24 PO (08:44)
[2023-08-07] MEDS: Furosemide 40 MG TABLET PO (08:44)
[2023-08-07] MEDS: Cyanocobalamin (Vitamin B-12) 1,000 MCG TABLET 1000 MCG PO (08:45)
[2023-08-07] MEDS: Apixaban 2.5 MG TABLET PO ×2 (08:45→18:58)
[2023-08-07] MEDS: Psyllium seed 3.7 GM PACKET PO ×2 (08:46→18:58)
[2023-08-07] MEDS: Insulin Lispro 100 UNIT/ML 3 ML VIAL SUBCUT ×4 (08:52→20:58)
[2023-08-07 11:08] LABS: Glucose, Whole Blood 219 mg/dL (60-115)
[2023-08-07] MEDS: Ipratropium Bromide 0.5 MG/2.5 ML SOLUTION INHALE ×3 (11:52→20:25)
--- NOTE | 2023-08-07 12:29 | HO.PM.IMPN ---
Subjective Subjective Date of Service: 08/07/23 Interval History: htn,chf ,copd Review of Systems sob improving dizziness somewhat improving Physical Exam Vital Signs: Vital Signs: Last Vital Signs Temp 98.0 F 08/07/23 07:15 Pulse 53 08/07/23 11:56 Resp 18 08/07/23 11:56 BP 130/60 08/07/23 07:15 Pulse Ox 90 L 08/07/23 07:15 O2 Del Method Nasal Cannula 08/07/23 07:15 O2 Flow Rate 2 08/07/23 07:15 BMI result Body Mass Index 28.3 Appearance: Alert.? Oriented X3.? cvs: rrr, [id number]. res: air entry diminshed at bases , mild wheezing b/l abd: no rebound or guarding ,nt, bs present. ext pulses present , no cyanosis ,1+edema. neuro: axo3 , nonfocal. Objective Data Active Medications Acetaminophen (Acetaminophen 325 Mg Tablet) 650 mg PO Q6H PRN PRN Reason: Pain, Mild (Pain Scale 1-3) Last Admin: 08/07/23 08:38 Dose: 650 mg Documented By: LOUISA Alprazolam (Alprazolam 0.25 Mg Tablet) 0.25 mg PO DAILY [facility] Last Admin: 08/07/23 08:44 Dose: 0.25 mg Documented By: LOUISA Apixaban (Apixaban 2.5 Mg Tablet) 2.5 mg PO BID [facility] Last Admin: 08/07/23 08:45 Dose: 2.5 mg Documented By: LOUISA Ascorbic Acid (Ascorbic Acid 500 Mg Tablet) 500 mg PO DAILY [facility] Last Admin: 08/07/23 08:44 Dose: 500 mg Documented By: LOUISA Atorvastatin Calcium (Atorvastatin Calcium 40 Mg Tablet) 40 mg PO DAILY [facility] Last Admin: 08/07/23 08:53 Dose: Not Given Documented By: LOUISA Non-Admin Reason: Patient Refused Cyanocobalamin (Cyanocobalamin (Vitamin B-12) 1,000 Mcg Tablet) 1,000 mcg PO DAILY [facility] Last Admin: 08/07/23 08:45 Dose: 1,000 mcg Documented By: LOUISA Dextrose (Dextrose 50 % 25 Gm/50 Ml Syringe) 25 gm IVPUSH Q15M PRN; Protocol PRN Reason: per Hypoglycemia Standing Ord. Folic Acid (Folic Acid 1 Mg Tablet) 1 mg PO DAILY [facility] Last Admin: 08/07/23 08:44 Dose: 1 mg Documented By: LOUISA Furosemide (Furosemide 40 Mg Tablet) 40 mg PO DAILY [facility]; Protocol Last Admin: 08/07/23 08:44 Dose: 40 mg Documented By: LOUISA Glipizide (Glipizide 5 Mg Tablet) 2.5 mg PO DAILY [facility] Last Admin: 08/07/23 09:09 Dose: Not Given Documented By: LOUISA Non-Admin Reason: Physician Held Med Glucose (Glucose Gel 15 Gm Gel..Gram.) 15 gm PO Q15M PRN; Protocol PRN Reason: per Hypoglycemia Standing Ord. Hydrocortisone (Hydrocortisone 2.5 % Rectal Cr 30 Gm Tube) 1 appl NM QID PRN PRN Reason: hemorrhoids Insulin Human Lispro (Insulin Lispro 100 Unit/Ml 3 Ml Vial) 0 unit SUBCUT QIDACHS [facility]; Protocol Last Admin: 08/07/23 12:08 Dose: 4 unit Documented By: LOUISA Ipratropium [place] (Ipratropium [place] 0.5 Mg/2.5 Ml Solution) 0.5 mg INHALE RQ4H WHILE AWAKE [facility] Last Admin: 08/07/23 11:52 Dose: 0.5 mg Documented By: DINORA Methylprednisolone Sodium Succinate (Methylprednisolone Sod Succ 40 Mg/Ml Vial) 40 mg IVPUSH Q12H [facility] Last Admin: 08/07/23 08:41 Dose: 40 mg Documented By: LOUISA Metoprolol Succinate (Metoprolol Succinate Er 100 Mg Tab.Er.24h) 100 mg PO DAILY [facility]; Protocol Last Admin: 08/07/23 08:44 Dose: 100 mg Documented By: LOUISA Montelukast Sodium (Montelukast Sodium 10 Mg Tablet) 10 mg PO DAILY [facility] Last Admin: 08/07/23 08:44 Dose: 10 mg Documented By: LOUISA Nifedipine (Nifedipine Er 60 Mg Tab.Er.24) 60 mg PO DAILY [facility] Last Admin: 08/07/23 08:44 Dose: 60 mg Documented By: LOUISA Omeprazole (Omeprazole 40 Mg Capsule.Dr) 40 mg PO DAILY@0630 [facility] Last Admin: 08/07/23 06:20 Dose: 40 mg Documented By: POLINA Ondansetron HCl (Ondansetron Hcl 4 Mg/2 Ml Vial) 4 mg IVPUSH Q8H PRN PRN Reason: Nausea and Vomiting Pregabalin (Pregabalin 100 Mg Capsule) 100 mg PO BID [facility] Last Admin: 08/07/23 08:44 Dose: 100 mg Documented By: LOUISA Psyllium Hydrophilic Mucilloid (Psyllium Seed 3.7 Gm Packet) 3.7 gm PO BID [facility] Last Admin: 08/07/23 08:46 Dose: 3.7 gm Documented By: LOUISA Senna (Sennosides 8.6 Mg Tablet) 17.2 mg PO BEDTIME PRN PRN Reason: Constipation Sodium Chloride (0.9 % Sodium Chloride Flush 3 Ml Syringe) 3 ml IVFLUSH QSHIFT [facility] Last Admin: 08/07/23 08:41 Dose: 3 ml Documented By: LOUISA Vitamin D (Cholecalciferol (Vitamin D3) 25 Mcg Tablet) 25 mcg PO DAILY [facility] Last Admin: 08/07/23 08:43 Dose: 25 mcg Documented By: LOUISA Zolpidem Tartrate (Zolpidem Tartrate 5 Mg Tablet) 5 mg PO BEDTIME PRN PRN Reason: insomnia Last Admin: 08/06/23 22:27 Dose: 5 mg Documented By: LINDA Labs 08/06/23 04:59 08/06/23 04:59 Labs: Laboratory Results - last 24 hr 08/06/23 08/06/23 08/06/23 04:59 16:17 20:08 POC Glucose 208 H 178 H Estimat Average Glucose 143 Hemoglobin A1c % 6.6 H 08/07/23 08/07/23 07:19 11:02 POC Glucose 172 H 219 H Estimat Average Glucose Hemoglobin A1c % Assessment and Plan (1) COPD exacerbation: Status: Acute (2) Acute hypoxemic respiratory failure: Status: Acute Plan 88 year old female with history of anxiety, htn, paf on eliquis, hfpef, [id number]-vaxocnfry type 2 diabetes, CKD stage 3, history of lower GI bleed, iron deficiency anemia, osteoporosis, GERD, diabetic polyneuropathy, COPD who is a former smoker admitted for copd exacerbation. acute hypoxemic respirtaory failure sec to Acute asthma/COPD exacerbation,possible HFpEF. CTA chest negative for PE, but shows hypoinflation/atelectasis sob seems improving change nebs to ipratopium since get tremers with albuterol ,steriods ,oxygen , incentive spirometry and chest physiotherapy for atelectasis. mild HFpEF excerebation-improving give single dose 40 mg IV Lasix x1. strict I&O,daily weight,cardiac diet last echo 10/22 at [facility] (sees cards at [facility]) showed normal LV systolic function with EF 60-65% and grade 2 diastolic dysfunction will consider repeat echocardiogram if not improving added iv lasix acute hypokalemia-due to GI losses repleted and resolved. chronic nausea/vomiting-possibly psychogenic though seems to have been exacerbated with ferrous sulfate re-initiation improving plan:hold ferrous sulfate continue ondansetron p.r.n.,outpatient follow-up with GI psychiatry consult positional lightheadedness orthostatic vital signs negative , blood pressure seem elevated ct head-negative adjusted htn medications . severe anxiety/mood disorder-continue home benzos psychiatry consult uncontrolled htn :still suboptimal. continue metoprolol,procardia . may need to adjust htn meds if blood pressure persistently elevated. [id number] type 2 diabeteswith hyperglycemia : dm diet,HbA1 c 6.6 fs with adjusted sliding scale. paroxysmal atrial fibrillation-rate controlled continue Eliquis and metoprolol for rate control CKD stage 3-renal function baseline chronic iron-deficiency anemia-H/H normal at 14.3/40.9 % hold ferrous sulfate due to intolerance and stable H/H if iron deficiency anemia recurs, consider iron infusions if indicated diabetic polyneuropathy-continue tramadol. Weakness-pt eval-recomended str. DVT prophylaxis- eliquis Full code ongoing hospitlisation need : COPD and chf exacerbation with exercise hypoxemia requiring IV steroids, DuoNeb scheduled, i/o as well as renal function electrolyte monitoring , close monitoring of vital signs and blood pressure control. Quality Stroke Does the patient have a stroke diagnosis?: No VTE Prior VTE?: No VTE Risk Level:: Medical - moderate - high VTE Device Contraindication: Treatment Not Indicated VTE Drug Contraindication: N/A - Med Ordered
[2023-08-07] MEDS: Furosemide 20 MG/2 ML VIAL IVPUSH (13:14)
[2023-08-07 16:13] LABS: Glucose, Whole Blood 235 mg/dL (60-115)
--- NOTE | 2023-08-07 16:39 | PM.PSYCN ---
History of Present Illness Date of Service: 08/07/2023 Chief Complaint: Copd exacerbation with exercise hypoxemia Reason for Consult: severe anxiety Requesting physician: Elder Willis Discussed with referring provider: Yes Sources of Information: patient interviewed, chart reviewed and crisis/core team assessment reviewed HPI Narrative: Mrs. Gutierrez is a 88 year-old woman with hypoxemia s/s to COPD. She apparently was dizziness, shaking, concern of anxiety as driving factor of those medical symptoms. Psychiatry asked to assess anxiety. Pt seen in her room. She is sitting comfortably in chair. She reports she has been here since 08/04. She reports prior to that she had goen to [facility]. She reports she was shaking, feeling dizzy. She also reports she was confused. She reports she is feeling much better now. She reports she takes alprazolam for anxiety, prescribed by her PCP. She denies depression. She denies SI/HI. No signs of psychosis or delusions. At this time pt denies any symptoms of anxiety or restlessness. Past Psychiatric History: inpt: none past med trial: alprazolam, ambien Medical Evaluation Reviewed: Yes [facility] Medical History Hypokalemia Hypomagnesemia Diarrhea Hearing difficulty Dyspnea on exertion History of gastrointestinal diverticular hemorrhage COVID-19 virus infection Rectal bleeding Medicare annual wellness visit, initial Hip pain, left Patellar sleeve fracture of right knee Knee pain, right Nausea and vomiting Coarse tremors Shoulder pain, right Hospital discharge follow-up Mass on back Constipation Tinea corporis Nausea Right wrist pain Left knee pain Left hip pain Toe pain, left Breast cancer screening by mammogram UTI (urinary tract infection) Type 2 diabetes mellitus with hyperglycemia Obesity (BMI 30-39.9) Lipoma of lower back Urinary frequency Toe fracture, left Pancreatic cyst Osteoporosis Peptic ulcer disease Urinary incontinence Rectal incontinence GERD (gastroesophageal reflux disease) Bile salt-induced diarrhea Vaginal prolapse Renal artery stenosis Asthma Lumbar degenerative disc disease Insomnia TIA (transient ischemic attack) Hyperlipidemia, unspecified Essential hypertension Surgical History Hx of colonoscopy History of esophagogastroduodenoscopy (EGD) History of removal of cyst (~10/17/21) History of hemorrhoidectomy History of colectomy History of section History of hysterectomy History of appendectomy History of cholecystectomy Diagnostics Vital Signs (24Hr): Vital Signs - 24 hr 08/06/23 19:16 08/07/23 03:53 08/07/23 07:15 Temperature 96.8 F 97.6 F 98.0 F Pulse Rate 61 58 58 Respiratory Rate 16 17 18 Blood Pressure 113/56 L 127/62 130/60 Pulse Oximetry 92 93 90 L Oxygen Delivery Method Nasal Cannula Nasal Cannula Nasal Cannula Oxygen Flow Rate 2 2 2 08/07/23 11:56 08/07/23 15:07 08/07/23 15:35 Temperature 97.4 F Pulse Rate 53 56 54 Respiratory Rate 18 18 18 Blood Pressure 122/59 L Pulse Oximetry 92 Oxygen Delivery Method Nasal Cannula Oxygen Flow Rate 2 BMI result Body Mass Index 28.3 Labs 08/06/23 04:59 08/06/23 04:59 Labs: Laboratory Results - last 48 hr 08/05/23 08/05/23 08/05/23 17:37 17:54 20:07 WBC RBC Hgb Hct MCV MCH MCHC RDW Plt Count MPV Immature Gran % (Auto) Neut % (Auto) Lymph % (Auto) H[place] % (Auto) Eos % (Auto) Baso % (Auto) Lymph # (Auto) [place] # (Auto) Eos # (Auto) Baso # (Auto) Abs Immat Gran (auto) Absolute Neuts (auto) Absolute Nucleated RBC Nucleated RBC % (auto) Hold Purple Top SEE NOTE Sodium Potassium Chloride Carbon Dioxide Anion Gap BUN Creatinine Estim Creat Clear Calc Estimated GFR POC Glucose 187 H Random Glucose Estimat Average Glucose Hemoglobin A1c % Calcium B-Natriuretic Peptide 167 H Urine Color Yellow Urine Appearance Clear Urine pH 7.0 Ur Specific [place] 1.020 Urine Protein Negative Urine Glucose (UA) Negative Urine Ketones Negative Urine Blood Negative Urine Nitrite Negative Ur Leukocyte Esterase Trace H Urine RBC 0-2 Urine WBC 0-5 Ur Squamous Epith Cells 0-2 Urine Bacteria None Seen Hyaline Casts 0-2 08/06/23 08/06/23 08/06/23 04:59 07:20 11:21 WBC 5.5 RBC 4.46 Hgb 14.0 Hct 41.3 MCV 92.6 MCH 31.4 MCHC 33.9 RDW 14.1 Plt Count 191 MPV 11.4 Immature Gran % (Auto) 0.5 H Neut % (Auto) 86.9 H Lymph % (Auto) 11.2 L Hays % (Auto) 1.4 L Eos % (Auto) 0.0 Baso % (Auto) 0.0 Lymph # (Auto) 0.6 L [place]ays # (Auto) 0.1 Eos # (Auto) 0.0 Baso # (Auto) 0.0 Abs Immat Gran (auto) 0.03 Absolute Neuts (auto) 4.8 Absolute Nucleated RBC 0.000 Nucleated RBC % (auto) 0.0 Hold Purple Top Sodium 141 Potassium 3.7 D Chloride 107 Carbon Dioxide 26 Anion Gap 12 BUN 13 Creatinine 0.92 Estim Creat Clear Calc 43.4 Estimated GFR 58 POC Glucose 213 H 211 H Random Glucose 227 H Estimat Average Glucose 143 Hemoglobin A1c % 6.6 H Calcium 9.7 B-Natriuretic Peptide Urine Color Urine Appearance Urine pH Ur Specific [place] Urine Protein Urine Glucose (UA) Urine Ketones Urine Blood Urine Nitrite Ur Leukocyte Esterase Urine RBC Urine WBC Ur Squamous Epith Cells Urine Bacteria Hyaline Casts 08/06/23 08/06/23 08/07/23 16:17 20:08 07:19 WBC RBC Hgb Hct MCV MCH MCHC RDW Plt Count MPV Immature Gran % (Auto) Neut % (Auto) Lymph % (Auto) Hays % (Auto) Eos % (Auto) Baso % (Auto) Lymph # (Auto) [place] # (Auto) Eos # (Auto) Baso # (Auto) Abs Immat Gran (auto) Absolute Neuts (auto) Absolute Nucleated RBC Nucleated RBC % (auto) Hold Purple Top Sodium Potassium Chloride Carbon Dioxide Anion Gap BUN Creatinine Estim Creat Clear Calc Estimated GFR POC Glucose 208 H 178 H 172 H Random Glucose Estimat Average Glucose Hemoglobin A1c % Calcium B-Natriuretic Peptide Urine Color Urine Appearance Urine pH Ur Specific [place] Urine Protein Urine Glucose (UA) Urine Ketones Urine Blood Urine Nitrite Ur Leukocyte Esterase Urine RBC Urine WBC Ur Squamous Epith Cells Urine Bacteria Hyaline Casts 08/07/23 08/07/23 11:02 16:08 WBC RBC Hgb Hct MCV MCH MCHC RDW Plt Count MPV Immature Gran % (Auto) Neut % (Auto) Lymph % (Auto) [place] % (Auto) Eos % (Auto) Baso % (Auto) Lymph # (Auto) [place] # (Auto) Eos # (Auto) Baso # (Auto) Abs Immat Gran (auto) Absolute Neuts (auto) Absolute Nucleated RBC Nucleated RBC % (auto) Hold Purple Top Sodium Potassium Chloride Carbon Dioxide Anion Gap BUN Creatinine Estim Creat Clear Calc Estimated GFR POC Glucose 219 H 235 H Random Glucose Estimat Average Glucose Hemoglobin A1c % Calcium B-Natriuretic Peptide Urine Color Urine Appearance Urine pH Ur Specific [place] Urine Protein Urine Glucose (UA) Urine Ketones Urine Blood Urine Nitrite Ur Leukocyte Esterase Urine RBC Urine WBC Ur Squamous Epith Cells Urine Bacteria Hyaline Casts Imaging Radiology Impressions: ITS Impressions Chest X-Ray 08/05/23 13:08 IMPRESSION: 1. Linear opacity left costophrenic angle likely scarring versus recurrent atelectasis. 2. Discoid atelectasis right base. Chest CTA 08/05/23 17:27 IMPRESSION: No pulmonary embolus demonstrated. Hypoinflation limits assessment of the lungs. There is a small hiatal hernia. VTE: negative Head CT 08/06/23 13:00 IMPRESSION: No acute intracranial hemorrhage or territorial infarction. Moderate generalized brain parenchymal volume loss and mild chronic white matter microangiopathy. Mental Status Exam Mental Status Exam Narrative: Appearance: wearing hospital gown, in NAD Behavior: cooperative and friendly Psychomotor: no agitation or retardation noted Speech: clear, normal rate/rhythm/volume, spontaneous TP: tangential TC: feeling better, hoping to go home soon Mood: good Affect: congruent SI: denies HI: denies VH/AH: no signs Delusions: none Insight/judgment: fair x 2. memory/cog: alert, oriented x 3. not formally tested but would benefit from MOCA. Medications Medications Current Medications Acetaminophen (Acetaminophen 325 Mg Tablet) 650 mg PO Q6H PRN PRN Reason: Pain, Mild (Pain Scale 1-3) Last Admin: 08/07/23 16:14 Dose: 650 mg Alprazolam (Alprazolam 0.25 Mg Tablet) 0.25 mg PO DAILY [facility] Last Admin: 08/07/23 08:44 Dose: 0.25 mg Apixaban (Apixaban 2.5 Mg Tablet) 2.5 mg PO BID [facility] Last Admin: 08/07/23 08:45 Dose: 2.5 mg Ascorbic Acid (Ascorbic Acid 500 Mg Tablet) 500 mg PO DAILY [facility] Last Admin: 08/07/23 08:44 Dose: 500 mg Atorvastatin Calcium (Atorvastatin Calcium 40 Mg Tablet) 40 mg PO DAILY [facility] Last Admin: 08/07/23 08:53 Dose: Not Given Cyanocobalamin (Cyanocobalamin (Vitamin B-12) 1,000 Mcg Tablet) 1,000 mcg PO DAILY [facility] Last Admin: 08/07/23 08:45 Dose: 1,000 mcg Dextrose (Dextrose 50 % 25 Gm/50 Ml Syringe) 25 gm IVPUSH Q15M PRN; Protocol PRN Reason: per Hypoglycemia Standing Ord. Folic Acid (Folic Acid 1 Mg Tablet) 1 mg PO DAILY [facility] Last Admin: 08/07/23 08:44 Dose: 1 mg Furosemide (Furosemide 40 Mg Tablet) 40 mg PO DAILY [facility]; Protocol Last Admin: 08/07/23 08:44 Dose: 40 mg Glipizide (Glipizide 5 Mg Tablet) 2.5 mg PO DAILY [facility] Last Admin: 08/07/23 09:09 Dose: Not Given Glucose (Glucose Gel 15 Gm Gel..Gram.) 15 gm PO Q15M PRN; Protocol PRN Reason: per Hypoglycemia Standing Ord. Hydrocortisone (Hydrocortisone 2.5 % Rectal Cr 30 Gm Tube) 1 appl [place] QID PRN PRN Reason: hemorrhoids Insulin Human Lispro (Insulin Lispro 100 Unit/Ml 3 Ml Vial) 0 unit SUBCUT QIDACHS [facility]; Protocol Last Admin: 08/07/23 12:08 Dose: 4 unit Ipratropium Lorraine (Ipratropium [place]raine 0.5 Mg/2.5 Ml Solution) 0.5 mg INHALE RQ4H WHILE AWAKE [facility] Last Admin: 08/07/23 15:31 Dose: 0.5 mg Methylprednisolone Sodium Succinate (Methylprednisolone Sod Succ 40 Mg/Ml Vial) 40 mg IVPUSH Q12H [facility] Last Admin: 08/07/23 08:41 Dose: 40 mg Metoprolol Succinate (Metoprolol Succinate Er 100 Mg Tab.Er.24h) 100 mg PO DAILY [facility]; Protocol Last Admin: 08/07/23 08:44 Dose: 100 mg Montelukast Sodium (Montelukast Sodium 10 Mg Tablet) 10 mg PO DAILY [facility] Last Admin: 08/07/23 08:44 Dose: 10 mg Nifedipine (Nifedipine Er 60 Mg Tab.Er.24) 60 mg PO DAILY [facility] Last Admin: 08/07/23 08:44 Dose: 60 mg Omeprazole (Omeprazole 40 Mg Capsule.Dr) 40 mg PO DAILY@0630 [facility] Last Admin: 08/07/23 06:20 Dose: 40 mg Ondansetron HCl (Ondansetron Hcl 4 Mg/2 Ml Vial) 4 mg IVPUSH Q8H PRN PRN Reason: Nausea and Vomiting Pregabalin (Pregabalin 100 Mg Capsule) 100 mg PO BID [facility] Last Admin: 08/07/23 08:44 Dose: 100 mg Psyllium Hydrophilic Mucilloid (Psyllium Seed 3.7 Gm Packet) 3.7 gm PO BID [facility] Last Admin: 08/07/23 08:46 Dose: 3.7 gm Senna (Sennosides 8.6 Mg Tablet) 17.2 mg PO BEDTIME PRN PRN Reason: Constipation Sodium Chloride (0.9 % Sodium Chloride Flush 3 Ml Syringe) 3 ml IVFLUSH QSHIFT [facility] Last Admin: 08/07/23 16:16 Dose: 3 ml Vitamin D (Cholecalciferol (Vitamin D3) 25 Mcg Tablet) 25 mcg PO DAILY [facility] Last Admin: 08/07/23 08:43 Dose: 25 mcg Zolpidem Tartrate (Zolpidem Tartrate 5 Mg Tablet) 5 mg PO BEDTIME PRN PRN Reason: insomnia Last Admin: 08/06/23 22:27 Dose: 5 mg Allergies Allergies Allergy/AdvReac Type Severity Reaction Status Date / Time ciprofloxacin Allergy Severe unknown Verified 08/05/23 10:43 aspirin [Aspirin] Allergy Unknown UNKNOWN Verified 08/05/23 10:43 cefuroxime Allergy Unknown Unknown Verified 08/05/23 10:43 celecoxib [From Celebrex] Allergy Unknown UNKNOWN Verified 08/05/23 10:43 metformin Allergy Unknown diarrhea Verified 08/05/23 10:43 risedronate sodium Allergy Unknown UNKNOWN Verified 08/05/23 10:43 [From Actonel] Sulfa (Sulfonamide Allergy Unknown unknown Verified 08/05/23 10:43 Antibiotics) bupropion AdvReac Intermediate tremor Verified 08/05/23 10:43 ferrous sulfate AdvReac Intermediate tremors Verified 08/05/23 10:43 sertraline AdvReac Intermediate tremors Verified 08/05/23 10:43 Assessment & Plan Assessment & Plan (1) Anxiety and depression: Status: Acute Code(s): F41.9 - Anxiety disorder, unspecified; F32.A - Depression, unspecified Plan Mrs. Gutierrez is a 88 year-old woman with hx of COPD, on oxygen. She originally presented for abdominal pain and nausea, found to be hypoxic on ambulation on NC. Admitted for hypoxemia acute on chronic COPD and asthma. Pt had presented with lightheadedness, at some point shaking, which hospitalist wondering of related to anxiety. I do not think those symptoms were related to anxiety. She currently denies any anxious mood or restlessness. No other acute psychiatric symptoms reported. She is fairly oriented now. However, can do MOCA to further assess cognitive especially as pt lives alone with minimal to no support. I would recommend for now to continue alprazolam daily. it is low dose and short acting in terms of more detrimental effects of respiratory status or cognitive or gait. I would recommend though considering stopping ambien as this medication can cause more problems in terms of cognitive and also amnesia and parasomnias which pt would not be able to indentify as she lives alone. Ambien may have more significant impact of her chronic respiratory illness. PLAN 1. recommend moca by OT 2. stop ambien 3. can continue current low dose of alprazolam. Total time managing care of this patient today ____ minutes.
[2023-08-07 20:45] LABS: Glucose, Whole Blood 200 mg/dL (60-115)
[2023-08-07] MEDS: Zolpidem Tartrate 5 MG TABLET PO (22:28)
[2023-08-08] VITALS (11 sets, daily range): BP systolic 104–127; BP diastolic 54–65; PULSE 50–73; RESP 16–20; TEMP 36.1–36.2; O2SAT 92–99; BMI 25.4
--- NOTE | 2023-08-08 00:37 | PC.NURSE ---
pt AOx4. pt told me her heart was filled in with water, so lasix and telemonitor to watch her pt's heart. # [id number] Irregular, SB 56, w/PAC and T wave conversion. called clinical research monitor to confirmed these. MT said T wave conversion since adm. not a new. will continue to monitor.
--- NOTE | 2023-08-08 02:19 | PC.NURSE ---
pt using oxygen 2L, tried to weaning down but RA with 87%, given oxygen 1L via NC. 92%. will continue to monitor.
--- NOTE | 2023-08-08 02:51 | PC.NURSE ---
pt HR SB above the 45s, MD aware SB, and MT closely watching, pt asymptomatic afew times woke up to use to bedside commode. no complained. will cont. monitor.
[2023-08-08] MEDS: Omeprazole 40 MG CAPSULE.DR PO (05:57)
[2023-08-08 07:31] LABS: Glucose, Whole Blood 113 mg/dL (60-115)
[2023-08-08] MEDS: Ipratropium Bromide 0.5 MG/2.5 ML SOLUTION INHALE ×3 (08:16→20:14)
[2023-08-08] MEDS: 0.9 % Sodium Chloride Flush 3 ML SYRINGE IVFLUSH ×3 (09:07→20:09)
[2023-08-08] MEDS: glipiZIDE 5 MG TABLET 2.5 MG PO (09:09)
[2023-08-08] MEDS: predniSONE 20 MG TABLET 40 MG PO (09:10)
[2023-08-08] MEDS: Metoprolol Succinate ER 100 MG TAB.ER.24H PO (09:10)
[2023-08-08] MEDS: Folic Acid 1 MG TABLET PO (09:10)
[2023-08-08] MEDS: Cyanocobalamin (Vitamin B-12) 1,000 MCG TABLET 1000 MCG PO (09:10)
[2023-08-08] MEDS: Apixaban 2.5 MG TABLET PO ×2 (09:11→20:07)
[2023-08-08] MEDS: Montelukast Sodium 10 MG TABLET PO (09:11)
[2023-08-08] MEDS: Ascorbic Acid 500 MG TABLET PO (09:11)
[2023-08-08] MEDS: Cholecalciferol (Vitamin D3) 25 MCG TABLET PO (09:11)
[2023-08-08] MEDS: NIFEdipine ER 60 MG TAB.ER.24 PO (09:11)
[2023-08-08] MEDS: ALPRAZolam 0.25 MG TABLET PO (09:11)
[2023-08-08] MEDS: Pregabalin 100 MG CAPSULE PO ×2 (09:11→20:07)
[2023-08-08] MEDS: Furosemide 40 MG TABLET PO (09:11)
[2023-08-08] MEDS: Psyllium seed 3.7 GM PACKET PO ×2 (09:18→20:09)
[2023-08-08 11:31] LABS: Glucose, Whole Blood 154 mg/dL (60-115)
[2023-08-08] MEDS: Insulin Lispro 100 UNIT/ML 3 ML VIAL SUBCUT ×3 (11:40→20:08)
--- NOTE | 2023-08-08 12:38 | MHC.CM.PN ---
EMR reviewed. Per MD rounds patient is not medically cleared for dc, 1-2 days. SNF's updated. Bed offer from [facility].
--- NOTE | 2023-08-08 14:05 | HO.PM.IMPN ---
Subjective Subjective Date of Service: 08/08/23 Interval History: htn,chf ,copd Review of Systems sob improving but still has excersional sob dizziness improving Physical Exam Vital Signs: Vital Signs: Last Vital Signs Temp 97.2 F 08/08/23 07:01 Pulse 64 08/08/23 10:23 Resp 20 08/08/23 10:23 BP 127/58 L 08/08/23 07:01 Pulse Ox 93 08/08/23 10:23 O2 Del Method Room Air 08/08/23 10:23 O2 Flow Rate 1 08/08/23 07:01 BMI result Body Mass Index 25.4 Appearance: Alert.? Oriented X3.? cvs: rrr, [id number]. res: air entry diminshed at bases , mild wheezing b/l abd: no rebound or guarding ,nt, bs present. ext pulses present , no cyanosis ,1+edema. neuro: axo3 , nonfocal. Objective Data Active Medications Acetaminophen (Acetaminophen 325 Mg Tablet) 650 mg PO Q6H PRN PRN Reason: Pain, Mild (Pain Scale 1-3) Last Admin: 08/07/23 22:26 Dose: 650 mg Documented By: RUPERT Alprazolam (Alprazolam 0.25 Mg Tablet) 0.25 mg PO DAILY [facility] Last Admin: 08/08/23 09:11 Dose: 0.25 mg Documented By: LOUISA Apixaban (Apixaban 2.5 Mg Tablet) 2.5 mg PO BID [facility] Last Admin: 08/08/23 09:11 Dose: 2.5 mg Documented By: LOUISA Ascorbic Acid (Ascorbic Acid 500 Mg Tablet) 500 mg PO DAILY [facility] [place] Last Admin: 08/08/23 09:11 Dose: 500 mg Documented By: LOUISA Atorvastatin Calcium (Atorvastatin Calcium 40 Mg Tablet) 40 mg PO DAILY [facility] Last Admin: 08/08/23 09:17 Dose: Not Given Documented By: LOUISA Non-Admin Reason: Patient Refused Cyanocobalamin (Cyanocobalamin (Vitamin B-12) 1,000 Mcg Tablet) 1,000 mcg PO DAILY [facility] [place] Last Admin: 08/08/23 09:10 Dose: 1,000 mcg Documented By: LOUISA Dextrose (Dextrose 50 % 25 Gm/50 Ml Syringe) 25 gm IVPUSH Q15M PRN; Protocol PRN Reason: per Hypoglycemia Standing Ord. Folic Acid (Folic Acid 1 Mg Tablet) 1 mg PO DAILY [facility] [place] Last Admin: 08/08/23 09:10 Dose: 1 mg Documented By: LOUISA Furosemide (Furosemide 40 Mg Tablet) 40 mg PO DAILY [facility]; Protocol Last Admin: 08/08/23 09:11 Dose: 40 mg Documented By: LOUISA Glipizide (Glipizide 5 Mg Tablet) 2.5 mg PO DAILY [facility] [place] Last Admin: 08/08/23 09:09 Dose: 2.5 mg Documented By: LOUISA Glucose (Glucose Gel 15 Gm Gel..Gram.) 15 gm PO Q15M PRN; Protocol PRN Reason: per Hypoglycemia Standing Ord. Hydrocortisone (Hydrocortisone 2.5 % Rectal Cr 30 Gm Tube) 1 appl [place] QID PRN PRN Reason: hemorrhoids Insulin Human Lispro (Insulin Lispro 100 Unit/Ml 3 Ml Vial) 0 unit SUBCUT QIDACHS [facility] [place]; Protocol Last Admin: 08/08/23 11:40 Dose: 1 unit Documented By: LOUISA Ipratropium [place]ok (Ipratropium [place] 0.5 Mg/2.5 Ml Solution) 0.5 mg INHALE RQ4H WHILE AWAKE [facility] [place] Last Admin: 08/08/23 12:11 Dose: Not Given Documented By: YVON Non-Admin Reason: Patient Refused Comments: Pt eating and family in the room at this time Metoprolol Succinate (Metoprolol Succinate Er 100 Mg Tab.Er.24h) 100 mg PO DAILY [facility]; Protocol Last Admin: 08/08/23 09:10 Dose: 100 mg Documented By: LOUISA Montelukast Sodium (Montelukast Sodium 10 Mg Tablet) 10 mg PO DAILY [facility] Last Admin: 08/08/23 09:11 Dose: 10 mg Documented By: LOUISA Nifedipine (Nifedipine Er 60 Mg Tab.Er.24) 60 mg PO DAILY [facility] Last Admin: 08/08/23 09:11 Dose: 60 mg Documented By: LOUISA Omeprazole (Omeprazole 40 Mg Capsule.Dr) 40 mg PO DAILY@0630 [facility] [place] Last Admin: 08/08/23 05:57 Dose: 40 mg Documented By: ALEENA Ondansetron HCl (Ondansetron Hcl 4 Mg/2 Ml Vial) 4 mg IVPUSH Q8H PRN PRN Reason: Nausea and Vomiting Prednisone (Prednisone 20 Mg Tablet) 40 mg PO DAILY [facility] [place] Last Admin: 08/08/23 09:10 Dose: 40 mg Documented By: LOUISA Pregabalin (Pregabalin 100 Mg Capsule) 100 mg PO BID [facility] [place] Last Admin: 08/08/23 09:11 Dose: 100 mg Documented By: LOUISA Psyllium Hydrophilic Mucilloid (Psyllium Seed 3.7 Gm Packet) 3.7 gm PO BID [facility] Last Admin: 08/08/23 09:18 Dose: 3.7 gm Documented By: LOUISA Senna (Sennosides 8.6 Mg Tablet) 17.2 mg PO BEDTIME PRN PRN Reason: Constipation Sodium Chloride (0.9 % Sodium Chloride Flush 3 Ml Syringe) 3 ml IVFLUSH QSHIFT [facility] [place] Last Admin: 08/08/23 09:07 Dose: 3 ml Documented By: LOUISA Vitamin D (Cholecalciferol (Vitamin D3) 25 Mcg Tablet) 25 mcg PO DAILY [facility] Last Admin: 08/08/23 09:11 Dose: 25 mcg Documented By: LOUISA Zolpidem Tartrate (Zolpidem Tartrate 5 Mg Tablet) 5 mg PO BEDTIME PRN PRN Reason: insomnia Last Admin: 08/07/23 22:28 Dose: 5 mg Documented By: RUPERT Labs 08/06/23 04:59 08/06/23 04:59 Labs: Laboratory Results - last 24 hr 08/07/23 08/07/23 08/08/23 16:08 20:42 07:05 POC Glucose 235 H 200 H 113 08/08/23 11:27 POC Glucose 154 H Assessment and Plan (1) COPD exacerbation: Status: Acute (2) Congestive heart failure with preserved left ventricular function, NYHA class 3: Status: Acute Plan 88 year old female with history of anxiety, htn, paf on eliquis, hfpef, [id number] type 2 diabetes, CKD stage 3, history of lower GI bleed, iron deficiency anemia, osteoporosis, GERD, diabetic polyneuropathy, COPD who is a former smoker admitted for copd exacerbation. acute hypoxemic respirtaory failure sec to Acute asthma/COPD exacerbation,possible HFpEF. CTA chest negative for PE, but shows hypoinflation/atelectasis sob seems improving change nebs to ipratopium since get tremers with albuterol ,steriods ,oxygen , incentive spirometry and chest physiotherapy for atelectasis. mild HFpEF excerebation-improving give single dose 40 mg IV Lasix x1. strict I&O,daily weight,cardiac diet last echo 10/22 at [facility] (sees cards at [facility]) showed normal LV systolic function with EF 60-65% and grade 2 diastolic dysfunction iv lasix acute hypokalemia-due to GI losses repleted and resolved. chronic nausea/vomiting-possibly psychogenic though seems to have been exacerbated with ferrous sulfate re-initiation improving plan:hold ferrous sulfate continue ondansetron p.r.n.,outpatient follow-up with GI psychiatry consult positional lightheadedness orthostatic vital signs negative ,ct head-negative improving htn medications . severe anxiety/mood disorder-continue home benzos. psychiatry consult noted -stop ambien, continue ativan. htn :bp optimal continue metoprolol,procardia . [id number] type 2 diabeteswith hyperglycemia : dm diet,HbA1 c 6.6 fs with adjusted sliding scale. paroxysmal atrial fibrillation-rate controlled continue Eliquis and metoprolol for rate control CKD stage 3-renal function baseline chronic iron-deficiency anemia-H/H normal at 14.3/40.9 % hold ferrous sulfate due to intolerance and stable H/H if iron deficiency anemia recurs, consider iron infusions if indicated diabetic polyneuropathy-continue tramadol. Weakness-pt eval-recomended str. DVT prophylaxis- eliquis Full code ongoing hospitlisation need : COPD and chf exacerbation with exercise hypoxemia requiring IV steroids, DuoNeb scheduled, i/o as well as renal function electrolyte monitoring , close monitoring of vital signs and blood pressure control. Quality Stroke Does the patient have a stroke diagnosis?: No VTE Prior VTE?: No VTE Risk Level:: Medical - moderate - high VTE Device Contraindication: Treatment Not Indicated VTE Drug Contraindication: N/A - Med Ordered
[2023-08-08 16:10] LABS: Glucose, Whole Blood 165 mg/dL (60-115)
[2023-08-08 19:50] LABS: Glucose, Whole Blood 270 mg/dL (60-115)
[2023-08-08] MEDS: Zolpidem Tartrate 5 MG TABLET PO (20:08)
--- NOTE | 2023-08-09 02:05 | MHC.PIE ---
Addendum entered by Get Britt RN 08/09/23 05:41: e; pt asleep before med administrated. will cont to monitor Original Note: p; pt c/o insomnia. note; prn Ambien given at 1999 i; dr rodriguez notified e; will cont to monitor
[2023-08-09 03:32] VITALS: BP 130/61; PULSE 59; RESP 18; TEMP 36.4; O2SAT 92
[2023-08-09 05:23] VITALS: BMI 25.2
[2023-08-09] MEDS: Omeprazole 40 MG CAPSULE.DR PO (05:37)
--- NOTE | 2023-08-09 06:11 | MHC.PIE ---
p; pt reports pain with urination after urinating in bathroom i; dr rodriguez notified; new order ua and cx e; will cont to monitor
[2023-08-09 07:24] LABS: Glucose, Whole Blood 106 mg/dL (60-115)
[2023-08-09 07:35] VITALS: BP 138/62; PULSE 53; RESP 16; TEMP 36.3; O2SAT 92
[2023-08-09 08:54] LABS: Appearance Urine Clear; Color Urine Yellow; Glucose Urine UA Negative (Negative); Leukocyte Esterase Urine Trace (Negative); Nitrite Urine Negative (Negative); UMIC TRIGGER UA YES; Urine Blood Negative (Negative); Urine Ketones Negative (Negative); Urine Protein Negative (Neg-Trace)
[2023-08-09 08:59] LABS: Bacteria Urine None Seen (None Seen); Hyaline Casts Urine 0-2 /LPF (0-2); RBC Urine 0-2 /HPF (0-2); Squamous Epithelial Cell Urine 0-2 /HPF (0-2); WBC Urine 0-5 /HPF (0-5)
[2023-08-09] MEDS: Pregabalin 100 MG CAPSULE PO (09:23)
[2023-08-09] MEDS: Apixaban 2.5 MG TABLET PO (09:23)
[2023-08-09] MEDS: Folic Acid 1 MG TABLET PO (09:23)
[2023-08-09] MEDS: predniSONE 20 MG TABLET 40 MG PO (09:23)
[2023-08-09] MEDS: Psyllium seed 3.7 GM PACKET PO (09:23)
[2023-08-09] MEDS: NIFEdipine ER 60 MG TAB.ER.24 PO (09:23)
[2023-08-09] MEDS: Ascorbic Acid 500 MG TABLET PO (09:23)
[2023-08-09] MEDS: ALPRAZolam 0.25 MG TABLET PO (09:23)
[2023-08-09] MEDS: 0.9 % Sodium Chloride Flush 3 ML SYRINGE IVFLUSH (09:24)
[2023-08-09] MEDS: glipiZIDE 5 MG TABLET 2.5 MG PO (09:24)
[2023-08-09] MEDS: Furosemide 40 MG TABLET PO (09:24)
[2023-08-09] MEDS: Cyanocobalamin (Vitamin B-12) 1,000 MCG TABLET 1000 MCG PO (09:24)
[2023-08-09] MEDS: Montelukast Sodium 10 MG TABLET PO (09:24)
[2023-08-09] MEDS: Cholecalciferol (Vitamin D3) 25 MCG TABLET PO (09:24)
[2023-08-09 11:05] LABS: Glucose, Whole Blood 202 mg/dL (60-115)
[2023-08-09] MEDS: Ipratropium Bromide 0.5 MG/2.5 ML SOLUTION INHALE (11:16)
--- NOTE | 2023-08-09 11:16 | MHC.CM.PN ---
PT CLEARED TO DC TO [facility] TODAY CM MET WITH PT WHO HAS ACCEPTED A BED AT [facility] ARRANGED VIA [facility] FOR 1300 HOURS PT REPORTS SHE WILL CALL AND UPDATE HER PEOPLE
[2023-08-09 11:18] VITALS: PULSE 68; RESP 16; O2SAT 93
--- NOTE | 2023-08-09 11:22 | PM.DS ---
DS: Providers Provider Date of Service: 08/09/23 Date of admission: 08/05/23 19:37 Date of discharge: 08/09/23 Primary care physician: Solange Jacobs MD Consults: 08/05/23 19:03 Consult to Psychiatry Routine Consulting Provider: Psych Covering Reason for consultation: severe anxiety- likely complicating medical picture including nausea/vomiti Attending physician on discharge: Elder Willis Discharging clinician: Elder Willis DS: Diagnosis Discharge Diagnosis (1) COPD exacerbation: Status: Acute (2) Congestive heart failure with preserved left ventricular function, NYHA class 3: Status: Acute DS: Summary Hospital Course Hospital Course: 88 year old female with history of anxiety, htn, paf on eliquis, hfpef, [id number] type 2 diabetes, CKD stage 3, history of lower GI bleed, iron deficiency anemia, osteoporosis, GERD, diabetic polyneuropathy, COPD who is a former smoker presents the ED earlier today for evaluation of nausea and vomiting as well as abdominal pain which she reports has been ongoing for 1 year. She states symptoms worsened recently with the re-initiation of ferrous sulfate which she had been taking for iron deficiency anemia. She was recently seen at [facility] ED on 08/01 for the same symptoms with CT abdomen/pelvis without any acute abnormality. She was advised to discontinue ferrous sulfate but she reports she continues taking this. She does take this with vitamin-C. She is able to tolerate p.o. most of the time, but does occasionally vomit. No hematemesis, melena, hematochezia. Reports occassional diarrhea. Last BM was this morning. She was found to be hypoxic to 84% on RA with ambulation. She does endorse MACKENZIE that has been ongoing for months and reports compliance with lasix. Denies weight gain, edema, sob at rest, cough, orthopnea, pnd, palpitations, or chest pain. Endorses positional lightheadedness. On arrival, VSS except for borderline hypoxia at 90%, resolved on admission with oximetry 95% at rest. She was noted to be hypoxic to 84% with ambulation. Hematology studies unremarkable. No anemia. Renal function baseline, electrolyte levels normal except for potassium 3.0. Total bili 1.7 (was 1.2 08/01). Initial trop 13, repeat 19, BNP 167. UA unremarkable. EKG NSR, rate 81, no michael or depressions. CXR shows linear opacity left costophrenic angle likely scarring versus recurrent atelectasis and discoid atelectasis at the right base. CTA chest negative for PE but shows hypoinflation and small hiatal hernia. In the ED, given DuoNeb, 1 L IV NS, lorazepam, 48 mEq potassium chloride. Hospital course: Patient was admitted to the hospital because of acute hypoxemic respiratory failure-possible secondary to COPD and CHF exacerbation: cta: negative for pulm emcolism ,mild atelacatsis present: Patient was started on nebs, steroids, IV Lasix, oxygen: Patient seems to be improved significantly, patient be going to the rehab with p.o. steroids and continue IV Lasix dose.continue incentive spirometry in rehab. CHF education given.If patient gain 2 lb or more weight per week-may need outpatient Lasix adjustment. Hypokalemia: Repleted and resolved. Diabetes type 2: Patient hemoglobin A1c is 6.6-fingersticks are running with 100-200 range, will avoid oral hypoglycemic for now, monitor fingersticks in the rehab if patient is persistently elevated fingersticks above 200 then consider adding oral hypoglycemics. Patient had some dizziness which seems to be multifactorial-dehydration, elevated have blood pressure, electrolytic abnormalities: CT head negative, orthostasis signs also negative, dizziness seems to be improved with improved p.o. intake, blood pressure improvement and with ambien stopped. Further management outpatient. anxiety : continue home meds ,stop ambien ,also consider outpatient MOCA. Patient is generalized weak seen by PT recommended rehab. Patient will be going to the rehab. plan: continue lasix home dose ,added prednisone 40 mg daily for 4 days. moniter renal function and electrolytes. moniter fs closely moniter ,check Hba1c if needed,consider oral hypoglycemics if patient has persistently elevated fingersticks above 200 . Assessment and plan coordination time spent 50 minute. Time Attestation Total time managing care of this patient today: 50 mintues. Discharge Coordination Time (in mins): 50 min Quality: Safe Use of Opioids Does Pt have an Active Cancer Diagnosis on the Problem List?: No Quality: Stroke Does the patient have a stroke diagnosis?: No Physical Exam Vital Signs: Vital Signs: Last Vital Signs Temp 97.4 F 08/09/23 07:35 Pulse 68 08/09/23 11:18 Resp 16 08/09/23 11:18 BP 138/62 08/09/23 07:35 Pulse Ox 92 08/09/23 07:35 O2 Del Method Room Air 08/09/23 07:35 O2 Flow Rate 1 08/08/23 07:01 BMI result Body Mass Index 25.2 Appearance: Alert.? Oriented X3.? cvs: rrr, [id number]. res: air entry fair ,no rales or wheezing abd: no rebound or guarding ,nt, bs present. ext pulses present , no cyanosis. neuro: axo3 , nonfocal. DS: Data Data Completed and Pending Labs on day of discharge: Laboratory Results - last 24 hr 08/08/23 08/08/23 08/08/23 11:27 16:05 19:30 POC Glucose 154 H 165 H 270 H Urine Color Urine Appearance Urine pH Ur Specific [place] Urine Protein Urine Glucose (UA) Urine Ketones Urine Blood Urine Nitrite Ur Leukocyte Esterase Urine RBC Urine WBC Ur Squamous Epith Cells Urine Bacteria Hyaline Casts 08/09/23 08/09/23 08/09/23 07:17 08:40 10:59 POC Glucose 106 202 H Urine Color Yellow Urine Appearance Clear Urine pH 6.0 Ur Specific [place] 1.010 Urine Protein Negative Urine Glucose (UA) Negative Urine Ketones Negative Urine Blood Negative Urine Nitrite Negative Ur Leukocyte Esterase Trace H Urine RBC 0-2 Urine WBC 0-5 Ur Squamous Epith Cells 0-2 Urine Bacteria None Seen Hyaline Casts 0-2 Imaging Chest x-ray: Radiologist's impression: ITS Impressions Chest X-Ray 08/05/23 13:08 IMPRESSION: 1. Linear opacity left costophrenic angle likely scarring versus recurrent atelectasis. 2. Discoid atelectasis right base. Chest CTA 08/05/23 17:27 IMPRESSION: No pulmonary embolus demonstrated. Hypoinflation limits assessment of the lungs. There is a small hiatal hernia. VTE: negative Head CT 08/06/23 13:00 IMPRESSION: No acute intracranial hemorrhage or territorial infarction. Moderate generalized brain parenchymal volume loss and mild chronic white matter microangiopathy. Discharge Plan Discharge Anticipated Discharge Date/Time: 08/09/23 11:00 Patient Disposition: Xf SNF Discharge Diagnosis: copd /chf excerebation Referrals: [facility] [Outside] Po,Solange Giles MD [Primary Care Provider] - 1 Week Discharge Medications: New prednisone 20 mg Tablet 40 mg PO DAILY Qty: 8 0RF Continued (DME) FreeStyle Lite Strips Strip See Rx Instructions .ROUTE .MEDSUPPLY Qty: 100 3RF Rx Instructions: Use 1 to test blood sugar once a day (DME) lancets [FreeStyle Lancets] 28 gauge misc See Rx Instructions .ROUTE .MEDSUPPLY Qty: 100 3RF Rx Instructions: use to test sugar once a day Dexilant 60 mg capsule,biphase delayed releas 60 mg PO DAILY Qty: 90 3RF Eliquis 2.5 mg tablet 2.5 mg PO BID Qty: 180 1RF nifedipine 60 mg tablet extended release 60 mg PO DAILY Qty: 90 2RF montelukast [Singulair] 10 mg tablet 10 mg PO DAILY Qty: 90 2RF metoprolol succinate 100 mg tablet extended release 24 hr 100 mg PO DAILY 90 Days Qty: 90 2RF furosemide 40 mg tablet 40 mg PO DAILY Qty: 90 2RF hydrocortisone [Proctosol HC] 2.5 % cream with perineal applicator 1 appl [place] BID-QID PRN (Reason: hemorrhoids) Qty: 30 0RF alprazolam 0.25 mg tablet 0.25 mg PO DAILY 30 Days Qty: 30 2RF ascorbate calcium (vitamin C) 500 mg tablet 500 mg PO DAILY Qty: 30 4RF folic acid 1 mg tablet 1 mg PO DAILY Qty: 90 2RF pregabalin 100 mg capsule 100 mg PO Q12H 30 Days Qty: 60 2RF ferrous sulfate 325 mg (65 mg iron) tablet 325 mg PO DAILY tramadol 50 mg tablet 50 mg PO DAILY PRN (Reason: Pain) cyanocobalamin (vitamin B-12) [Vitamin B-12] 1,000 mcg Tablet 1,000 mcg PO DAILY atorvastatin [Lipitor] 40 mg tablet 40 mg PO DAILY Qty: 90 3RF diclofenac sodium [Arthritis Pain (diclofenac)] 1 % gel 4 g topical QID Qty: 300 3RF Rx Instructions: apply to single knee, ankle, foot; for foot includes sole/toes/top of foot albuterol sulfate [ProAir HFA] 90 mcg/actuation HFA aerosol inhaler 1 puff inhalation QID 90 Days Qty: 8.5 0RF cholecalciferol (vitamin D3) 25 mcg (1,000 unit) capsule 25 mcg PO DAILY Metamucil 3.4 gram/5.4 gram powder 1 tbsp PO BID Rx Instructions: mix into at least 8 oz of water or juice before administering Discontinued zolpidem 5 mg tablet 5 mg PO BEDTIME PRN (Reason: insomnia) 90 Days Qty: 90 1RF Discharge Orders: Discharge Order (Routine); Ordered 08/09/23 Ordered By: Elder Willis Diet: Advance to usual diet Activity on Discharge: As tolerated Stand Alone Forms: Patient Portal Discharge page Care Plan Goals: Patient was admitted to the hospital because of acute hypoxemic respiratory failure-possible secondary to COPD and CHF exacerbation: cta: negative for pulm emcolism ,mild atelacatsis present: Patient was started on nebs, steroids, IV Lasix, oxygen: Patient seems to be improved significantly, patient be going to the rehab with p.o. steroids and continue IV Lasix dose.continue incentive spirometry in rehab. CHF education given.If patient gain 2 lb or more weight per week-may need outpatient Lasix adjustment. Hypokalemia: Repleted and resolved. Diabetes type 2: Patient hemoglobin A1c is 6.6-fingersticks are running with 100-200 range, will avoid oral hypoglycemic for now, monitor fingersticks in the rehab if patient is persistently elevated fingersticks above 200 then consider adding oral hypoglycemics. Patient had some dizziness which seems to be multifactorial-dehydration, elevated have blood pressure, electrolytic abnormalities: CT head negative, orthostasis signs also negative, dizziness seems to be improved with improved p.o. intake, blood pressure improvement and with ambien stopped. Further management outpatient. anxiety : continue home meds ,stop ambien ,also consider outpatient MOCA. Patient is generalized weak seen by PT recommended rehab. Patient will be going to the rehab. Health Concerns: as above. Plan of Treatment: as above. Assessment: as above.
[2023-08-09] MEDS: Insulin Lispro 100 UNIT/ML 3 ML VIAL SUBCUT (12:15)
== END 2023-08-09 15:35 | disposition skilled nursing facility (03) | DRG 291 ==
LOC: HO.ED 18:54 → HO.EDOVER 19:39 → HO.S3 08-06 07:54
PROVIDERS: Internal Medicine; Nurse Practitioner Family; Physician Assistant Medical; Admitting Provider Physician Assistant; Emergency Provider Student in an Organized Health Care Education/Training Program; PCP Internal Medicine; Visit Provider Internal Medicine
DX: I13.0 Hypertensive heart and chronic kidney disease with heart failure and stage 1 through stage 4 chronic kidney disease, or unspecified chronic kidney disease (principal); I50.33 Acute on chronic diastolic (congestive) heart failure; J96.01 Acute respiratory failure with hypoxia; J44.1 Chronic obstructive pulmonary disease with (acute) exacerbation; J45.901 Unspecified asthma with (acute) exacerbation; J98.11 Atelectasis; F32.A Depression, unspecified; E11.65 Type 2 diabetes mellitus with hyperglycemia; F41.9 Anxiety disorder, unspecified; E87.6 Hypokalemia; E11.42 Type 2 diabetes mellitus with diabetic polyneuropathy; E11.22 Type 2 diabetes mellitus with diabetic chronic kidney disease; Z20.822 Contact with and (suspected) exposure to COVID-19; Z87.891 Personal history of nicotine dependence; Z79.01 Long term (current) use of anticoagulants; Z79.899 Other long term (current) drug therapy
CPT/HCPCS: 0241U; 36415; 70450; 71045; 71275; 80048; 80053; 81001; 82947; 83036; 83735; 83880; 84484; 85025; 93005; 94640; 97116; 97162; 97166; 99285; J1940; J2060; J2920; Q9967

== ENCOUNTER → 2023-08-05 10:18 | Outpatient (BNV) | payer MEDICARE, OTHER, SELFPAY | PROVIDERS: Emergency Provider Student in an Organized Health Care Education/Training Program; PCP Internal Medicine; Visit Provider Internal Medicine Cardiovascular Disease | DX: R94.31 Abnormal electrocardiogram [ECG] [EKG] (principal) | CPT/HCPCS: 93010 ==

== ENCOUNTER → 2023-08-05 19:37 | Outpatient (BNV) | payer MEDICARE, OTHER, SELFPAY | PROVIDERS: Admitting Provider Physician Assistant; Emergency Provider Student in an Organized Health Care Education/Training Program; PCP Internal Medicine; Visit Provider Physician Assistant | DX: J96.01 Acute respiratory failure with hypoxia (principal); J44.1 Chronic obstructive pulmonary disease with (acute) exacerbation; I50.20 Unspecified systolic (congestive) heart failure; E11.65 Type 2 diabetes mellitus with hyperglycemia | CPT/HCPCS: 99223; 99232; 99239 ==

== ENCOUNTER → 2023-08-05 19:37 | Outpatient (BNV) | payer MEDICARE, OTHER, SELFPAY | PROVIDERS: Admitting Provider Physician Assistant; Emergency Provider Student in an Organized Health Care Education/Training Program; PCP Internal Medicine; Visit Provider Social Worker | DX: F41.9 Anxiety disorder, unspecified (principal); F32.0 Major depressive disorder, single episode, mild | CPT/HCPCS: 99232 ==

== ENCOUNTER 2023-09-18 11:40 | Outpatient (AMB) | payer MEDICARE, OTHER, SELFPAY ==
[2023-09-18 11:51] VITALS: BP 152/92; PULSE 48; O2SAT 94; BMI 25.9
--- NOTE | 2023-09-18 11:51 | A.OFFPC_ITS ---
Vital Signs 09/18/23 11:51 Height 5 ft 4 in Weight 151 lb BMI 25.9 BP 152/92 H Blood Pressure Location Lt brachial Position Sitting Pulse 48 L Pulse Source Pulse Oximeter Pulse Oximetry (%) 94 Oxygen Delivery Method Room Air Intake Visit Reasons: Congestive heart failure Allergies ciprofloxacin Allergy (Severe, Verified 09/18/23 11:52) unknown aspirin [Aspirin] Allergy (Unknown, Verified 09/18/23 11:52) UNKNOWN cefuroxime Allergy (Unknown, Verified 09/18/23 11:52) Unknown celecoxib [From Celebrex] Allergy (Unknown, Verified 09/18/23 11:52) UNKNOWN metformin Allergy (Unknown, Verified 09/18/23 11:52) diarrhea risedronate sodium [From Actonel] Allergy (Unknown, Verified 09/18/23 11:52) UNKNOWN Sulfa (Sulfonamide Antibiotics) Allergy (Unknown, Verified 09/18/23 11:52) unknown bupropion Adverse Reaction (Intermediate, Verified 09/18/23 11:52) tremor ferrous sulfate Adverse Reaction (Intermediate, Verified 09/18/23 11:52) tremors sertraline Adverse Reaction (Intermediate, Verified 09/18/23 11:52) tremors Medication List - Last Reconciled 09/18/23 by Solange Jacobs MD albuterol sulfate 90 mcg/actuation (ProAir HFA) 1 puff inhalation QID 90 days alprazolam 0.25 mg PO DAILY 30 days apixaban (Eliquis) 2.5 mg PO BID ascorbic acid (vitamin C) (Vitamin C) 500 mg PO DAILY atorvastatin (Lipitor) 40 mg PO DAILY blood sugar diagnostic (FreeStyle Lite Strips) Use 1 to test blood sugar once a day cholecalciferol (vitamin D3) 25 mcg PO DAILY cyanocobalamin (vitamin B-12) (Vitamin B-12) 1,000 mcg PO DAILY dexlansoprazole (Dexilant) 60 mg PO DAILY diclofenac sodium 1% (Arthritis Pain (diclofenac)) 4 grams topical QID folic acid 1 mg PO DAILY furosemide 40 mg PO DAILY hydrocortisone 2.5% (Proctosol HC) 1 appl [place] BID-QID PRN lancets (FreeStyle Lancets) use to test sugar once a day lisinopril 5 mg PO DAILY metoprolol succinate ER 50 mg PO DAILY 90 days montelukast (Singulair) 10 mg PO DAILY [pediatric front wheel walker As directed] pregabalin 100 mg PO Q12H 30 days tramadol 50 mg PO DAILY PRN zolpidem 5 mg PO BEDTIME Tobacco use date assessed: 09/18/23 Fall risk assessment: No Falls in past year Last assessed Fall Risk: 09/18/23 Dental Screening Dental Screen Date: 09/18/23 Did you have a dental visit in the last 12 months?: No Did you have a dental problem in the last 6 months where you did not have access to dental care?: No Was dental information given to patient?: No HPI Congestive heart failure HPI Details 88-year-old female with diabetes mellitu s atrial fibrillation hypertension hypercholesterolemia reflux problem coming in for follow-up. June last seen patient had colonoscopy in January 2023 poor prep. Mammogram is up-to-date bone density is due. Patient does have aortic stenosis and had an echocardiogram in October 2022 with 1.13 cm2. Up-to-date with ophthalmology July 2023 open-angle glaucoma suspect nuclear cataract . ER visit August 2023 nausea and vomiting patient does have side effect from taking iron found to be hypoxic at 84% on room air hypokalemic CTA negative for PE patient was treated both for congestive heart failure and COPD blood work last June showing LDL of 42 HDL of 40 triglyceride of 144 and total cholesterol of 111 BNP showing 356 with a TSH of 6.46 normal magnesium normal iron and ferritin sodium potassium is normal BUN is 14 creatinine is 0.9 sugar is 182 with normal liver function [facility] History Hypokalemia Hypomagnesemia Diarrhea Hearing difficulty Dyspnea on exertion History of gastrointestinal diverticular hemorrhage COVID-19 virus infection Rectal bleeding Medicare annual wellness visit, initial Hip pain, left Patellar sleeve fracture of right knee Knee pain, right Nausea and vomiting Coarse tremors Shoulder pain, right Hospital discharge follow-up Mass on back Constipation Tinea corporis Nausea Right wrist pain Left knee pain Left hip pain Toe pain, left Breast cancer screening by mammogram UTI (urinary tract infection) Type 2 diabetes mellitus with hyperglycemia Obesity (BMI 30-39.9) Lipoma of lower back Urinary frequency Toe fracture, left Pancreatic cyst Osteoporosis Peptic ulcer disease Urinary incontinence Rectal incontinence GERD (gastroesophageal reflux disease) Bile salt-induced diarrhea Vaginal prolapse Renal artery stenosis Asthma Lumbar degenerative disc disease Insomnia TIA (transient ischemic attack) Hyperlipidemia, unspecified Essential hypertension Surgical History Hx of colonoscopy History of esophagogastroduodenoscopy (EGD) History of removal of cyst (~10/17/21) History of hemorrhoidectomy History of colectomy History of section History of hysterectomy History of appendectomy History of cholecystectomy Family History Father Cancer Arterial thrombosis Mother Multiple sclerosis Muscular dystrophy Hypertension Depression Chronic mental illness Mental health disorder Brother No problems noted. Brother Gangrene Sister No problems noted. Son No problems noted. Son No problems noted. Son No problems noted. Son No problems noted. Daughter No problems noted. Daughter No problems noted. Daughter No problems noted. Social History Household Members: None Housing: Apartment Do you presently have visiting nurse or other home services: No Alcohol intake: never Patient Tobacco Use Status: Former Tobacco user Tobacco use type: Cigarette Years Smoked: 1996 quit e-Cigarette/Vaping Use: Never Used Second Hand Smoke Exposure: No Advance Directives Date on File: 08/06/23 service: No Current occupational status: disabled Current occupational exposures/hazards: No Cognitive needs: Yes Hearing needs: Yes Vision needs: Yes Questionnaire PHQ-9 Over the last 2 weeks, how often have you been bothered by any of the following problems? 1. Little interest or pleasure in doing things: several days 2. Feeling down, depressed, or hopeless: several days 3. Trouble falling or staying asleep, or sleeping too much: nearly every day 4. Feeling tired or having little energy: more than half the days 5. Poor appetite or overeating: not at all 6. Feeling bad about yourself - or that you are a failure or have let yourself or your family down: not at all 7. Trouble concentrating on things, such as reading the newspaper or watching television: not at all 8. Moving or speaking so slowly that other people could have noticed. Or the opposite - being so fidgety or restless that you have been moving around a lot more than usual: not at all 9. Thoughts that you would be better off or of hurting yourself in some way: not at all Total score: 7 Depression Screening Interpretation: Positive Depression Screening Follow-up: Existing condition Depression Screening Done: Yes [id number] - PHQ-9 Billing: Yes Source: Developed by Drs. Brandon Villeda, Vijaya Damon, Jaydon Easley and colleagues, with an educational phi from [employer]. Thrive Questionnaire Date Thrive assessed: 09/18/23 I am a: Patient What is your living situation today?: I have a steady place to live Within the past 12 months, did the food you bought not last and you didn't have the money to get more?: Never true Within the past 12 months, did you worry whether your food would run out before you got money to buy more?: Never true Do you have trouble paying for medicines?: No Do you have trouble getting transportation to medical appointments?: No Do you have trouble paying your heating and electricity bill?: No Do you have trouble taking care of your child, family member or friend?: No Do you have trouble with day-to-day activities such as bathing, preparing meals, shopping, managing finances, etc.?: No Are you currently unemployed and looking for a job?: No Are you interested in more education?: No Please select the resources that you would like help with: None Currently or been in a relationship where the following occur: no concerns reported THRIVE Score: 0 AUDIT C Alcohol Use Questionnaire (AUDIT-C) 1. How often do you have a drink containing alcohol?: Never Total Score: 0 Score Reviewed/Action Taken: No MERY-7 AMB Questionnaire MERY-7 Date MERY - 7 assessed: 09/18/23 Feeling nervous, anxious, or on edge: 0 = Not at all Not being able to stop or control worryin = Not at all Worrying too much about different things: 0 = Not at all Trouble relaxin = Not at all Being so restless that it is hard to sit still: 0 = Not at all Becoming easily annoyed or irritable: 0 = Not at all Feeling afraid as if something awful might happen: 0 = Not at all Total MERY-7 score (0-4 normal; 5-9 mild; 10-14 moderate; 15-21 severe): 0 Source: Developed by Drs. Brandon Villeda, Vijaya Damon, Jaydon Easley and colleagues, with an educational phi from [employer]. Physical exam (Primary Care) Vital Signs: Last Vital Signs Pulse 48 L 09/18/23 11:51 BP 152/92 H 09/18/23 11:51 Pulse Ox 94 09/18/23 11:51 Oxygen Delivery Method Room Air 09/18/23 11:51 BMI result Body Mass Index 25.9 Tobacco/Smoking Status: Tobacco use Status Tobacco use date assessed 09/18/23 09/18/23 11:56 Patient Tobacco Use Status Former Tobacco user 09/18/23 11:56 Tobacco use type Cigarette 09/18/23 11:56 e-Cigarette/Vaping Use Never Used 09/18/23 11:56 PHQ-9: PHQ-9 Score PHQ-9: Total score 7 09/18/23 12:02 Depression Screening Interpretation: Positive Depression Screening Follow-up: Existing condition Thrive Assessment: Date of Thrive Assessment Date Thrive assessed 09/18/23 09/18/23 11:56 Currently or been in a relationship where the following occur: no concerns reported Const General: alert; No acute distress Eyes Conjunctivae: conjunctivae normal Resp Auscultation: clear to auscultation bilaterally Cardio Rate: regular rate Rhythm: regular rhythm GI Inspection: Yes normal to inspection Extrem General: Yes normal to inspection and No edema Assessment and Plan Assessment & Plan (1) Essential hypertension: Code(s): I10 - Essential (primary) hypertension Plan: Continue with blood pressure medication. Decrease salt intake and exercise presently on lisinopril 5 mg once a day and metoprolol 50 mg once a day (2) Hyperlipidemia, unspecified: Code(s): E78.5 - Hyperlipidemia, unspecified Qualifiers: Hyperlipidemia type: unspecified Qualified Code(s): E78.5 - Hyperlipidemia, unspecified Plan: Avoid fried foods, chicken skin, eggs, butter margarine, pastries and meat. Be it pork or beef they have a lot of cholesterol LDL goal of less than 70 and triglyceride of less than 150 takes atorvastatin 40 mg once a day (3) GERD (gastroesophageal reflux disease): Code(s): K21.9 - Gastro-esophageal reflux disease without esophagitis Qualifiers: Esophagitis presence: without esophagitis Qualified Code(s): K21.9 - Gastro-esophageal reflux disease without esophagitis Plan: Avoid the foods that causes that usually spicy foods, tomato products, juices, coffee, soda and foods that your sensitive to. After eating do not lie down, allow 3-4 hours before in lie down. And keep the head of bed above 30 degrees to avoid the acid from going up. (4) Generalized anxiety disorder: Code(s): F41.1 - Generalized anxiety disorder Plan: Continue with present medication (5) Osteoporosis: Code(s): M81.0 - Age-related osteoporosis without current pathological fracture Plan: Discussed about bone density and calcium and vitamin-D. (6) Carotid artery disease: Comment: mild to moderate 04/2021 Code(s): I77.9 - Disorder of arteries and arterioles, unspecified Plan: Control the cholesterol, weight, blood pressure continue with anticoagulation (7) Paroxysmal atrial fibrillation: Code(s): I48.0 - Paroxysmal atrial fibrillation Plan: Continue with anticoagulation and repeat testing twice a day year of the kidney function (8) Congestive heart failure with preserved left ventricular function, NYHA class 3: Code(s): I50.30 - Unspecified diastolic (congestive) heart failure Plan: Continue with the diuretic and continue to monitor renal function (9) Aortic stenosis: Code(s): I35.0 - Nonrheumatic aortic (valve) stenosis Plan: This is monitored presently moderate. October 2022 last echocardiogram Orders: Orders Magnesium 3 Months I10 - Essential (primary) hypertension Phosphorus 3 Months I10 - Essential (primary) hypertension CA echo transthoracic complete 2 Months I35.0 - Nonrheumatic aortic (valve) stenosis Complete Blood Count Auto Diff 3 Months I10 - Essential (primary) hypertension Comprehensive Met. Panel 3 Months I10 - Essential (primary) hypertension B Type Natriuretic Peptide 3 Months I10 - Essential (primary) hypertension Medications: New [PEDIATRIC FRONT WHEELED WALKER] As directed 1 ea 0RF I50.30 - Unspecified diastolic (congestive) heart failure Refilled pregabalin 100 mg PO Q12H 30 days 60 caps 2RF M51.36 - Other intervertebral disc degeneration, lumbar region Coding Level of Care Code Est Pt Level 4 (62606) Diagnoses Essential hypertension I10 Hyperlipidemia, unspecified hyperlipidemia type E78.5 Hyperlipidemia type: unspecified Gastroesophageal reflux disease without esophagitis K21.9 Esophagitis presence: without esophagitis Generalized anxiety disorder F41.1 Osteoporosis M81.0 Carotid artery disease I77.9 Paroxysmal atrial fibrillation I48.0 Congestive heart failure with preserved left ventricular function, NYHA class 3 I50.30 Aortic stenosis I35.0
== END 2023-09-18 12:47 | disposition home or self-care (01) ==
PROVIDERS: PCP Internal Medicine; Visit Provider Internal Medicine
DX: I11.0 Hypertensive heart disease with heart failure (principal); I77.9 Disorder of arteries and arterioles, unspecified; I48.0 Paroxysmal atrial fibrillation; I50.30 Unspecified diastolic (congestive) heart failure; E78.5 Hyperlipidemia, unspecified; K21.9 Gastro-esophageal reflux disease without esophagitis; F41.1 Generalized anxiety disorder; M81.0 Age-related osteoporosis without current pathological fracture; I35.0 Nonrheumatic aortic (valve) stenosis
CPT/HCPCS: 99214

== ENCOUNTER 2023-10-17 14:36 | Outpatient (AMB) | payer MEDICARE, OTHER, SELFPAY ==
--- NOTE | 2023-10-17 14:36 | A.OFFPC_ITS ---
Intake Visit Reasons: Cough Swatch Maker Required: No Allergies ciprofloxacin Allergy (Severe, Verified 10/17/23 14:36) unknown aspirin [Aspirin] Allergy (Unknown, Verified 10/17/23 14:36) UNKNOWN cefuroxime Allergy (Unknown, Verified 10/17/23 14:36) Unknown celecoxib [From Celebrex] Allergy (Unknown, Verified 10/17/23 14:36) UNKNOWN metformin Allergy (Unknown, Verified 10/17/23 14:36) diarrhea risedronate sodium [From Actonel] Allergy (Unknown, Verified 10/17/23 14:36) UNKNOWN Sulfa (Sulfonamide Antibiotics) Allergy (Unknown, Verified 10/17/23 14:36) unknown bupropion Adverse Reaction (Intermediate, Verified 10/17/23 14:36) tremor ferrous sulfate Adverse Reaction (Intermediate, Verified 10/17/23 14:36) tremors sertraline Adverse Reaction (Intermediate, Verified 10/17/23 14:36) tremors Tobacco use date assessed: 10/17/23 Fall risk assessment: No Falls in past year Last assessed Fall Risk: 10/17/23 Dental Screening Dental Screen Date: 09/18/23 HPI Cough HPI Details 88-year-old female with hypertension hyp ercholesterolemia GERD generalized anxiety disorder coronary artery disease with atrial fibrillation and congestive heart failure last seen in September 2023. Patient comes in for an acute visit through Telehealth. vital pulse ox 94, BP, 98.3, cough , 4 days, states wheezing, lying down making cough, 179/90, HR 85 PFSH Medical History Hypokalemia Hypomagnesemia Diarrhea Hearing difficulty Dyspnea on exertion History of gastrointestinal diverticular hemorrhage COVID-19 virus infection Rectal bleeding Medicare annual wellness visit, initial Hip pain, left Patellar sleeve fracture of right knee Knee pain, right Nausea and vomiting Coarse tremors Shoulder pain, right Hospital discharge follow-up Mass on back Constipation Tinea corporis Nausea Right wrist pain Left knee pain Left hip pain Toe pain, left Breast cancer screening by mammogram UTI (urinary tract infection) Type 2 diabetes mellitus with hyperglycemia Obesity (BMI 30-39.9) Lipoma of lower back Urinary frequency Toe fracture, left Pancreatic cyst Osteoporosis Peptic ulcer disease Urinary incontinence Rectal incontinence GERD (gastroesophageal reflux disease) Bile salt-induced diarrhea Vaginal prolapse Renal artery stenosis Asthma Lumbar degenerative disc disease Insomnia TIA (transient ischemic attack) Hyperlipidemia, unspecified Essential hypertension Surgical History Hx of colonoscopy History of esophagogastroduodenoscopy (EGD) History of removal of cyst (~10/17/21) History of hemorrhoidectomy History of colectomy History of section History of hysterectomy History of appendectomy History of cholecystectomy Family History Father Cancer Arterial thrombosis Mother Multiple sclerosis Muscular dystrophy Hypertension Depression Chronic mental illness Mental health disorder Brother No problems noted. Brother Gangrene Sister No problems noted. Son No problems noted. Son No problems noted. Son No problems noted. Son No problems noted. Daughter No problems noted. Daughter No problems noted. Daughter No problems noted. Social History Household Members: None Housing: Apartment Do you presently have visiting nurse or other home services: No Alcohol intake: never Patient Tobacco Use Status: Former Tobacco user Tobacco use type: Cigarette Years Smoked: 1996 quit e-Cigarette/Vaping Use: Never Used Second Hand Smoke Exposure: No Advance Directives Date on File: 08/06/23 service: No Current occupational status: disabled Current occupational exposures/hazards: No Cognitive needs: Yes Hearing needs: Yes Vision needs: Yes Questionnaire Thrive Questionnaire Date Thrive assessed: 09/18/23 AUDIT C Alcohol Use Questionnaire (AUDIT-C) 1. How often do you have a drink containing alcohol?: Never 3. How often do you have six or more drinks on one occasion?: Never Total Score: 0 Score Reviewed/Action Taken: No MERY-7 AMB Questionnaire MERY-7 Date MERY - 7 assessed: 09/18/23 Source: Developed by Drs. Brandon Villeda, Vijaya Damon, Jaydon Easley and colleagues, with an educational phi from [employer]. Physical exam (Primary Care) Tobacco/Smoking Status: Tobacco use Status Tobacco use date assessed 10/17/23 10/17/23 14:39 Patient Tobacco Use Status Former Tobacco user 10/17/23 14:39 Tobacco use type Cigarette 10/17/23 14:39 e-Cigarette/Vaping Use Never Used 05/17/24 14:39 Thrive Assessment: Date of Thrive Assessment Date Thrive assessed 09/18/23 10/17/23 14:39 Telehealth Telehealth Telehealth Platform: Telephone Location of provider rendering services: practice address Location of patient: address on file Patient Identification confirmed using: Name, : Yes Telehealth method: voice only Patient verbally consented to treatment: Yes Patient verbally consented to billing insurance company: Yes Patient informed of any privacy concerns related to visit: Yes Assessment and Plan Assessment & Plan (1) COPD exacerbation: Code(s): J44.1 - Chronic obstructive pulmonary disease with (acute) exacerbation Plan: Patient is treated with prednisone and the antibiotics (2) Congestive heart failure with preserved left ventricular function, NYHA class 3: Code(s): I50.30 - Unspecified diastolic (congestive) heart failure Plan: Patient was advised to increase Lasix to 40 mg twice a day for about 3 days. Medications: New prednisone 4 tabs QD x 2 days then 3 tabs QD x 2 days then 2 tabs Qd x 2 days then 1 tab QD x 2 days PO daily; 20 tabs 0RF J44.1 - Chronic obstructive pulmonary disease with (acute) exacerbation, J45.909 - Unspecified asthma, uncomplicated azithromycin (Zithromax) For 250 mg dose pack: take 500 mg today (day 1), then 250 mg for 4 days (days 2-5) PO 6 tabs 0RF J44.1 - Chronic obstructive pulmonary disease with (acute) exacerbation Coding Level of Care Code Tele Est Pt Level 4 (17235) Diagnoses COPD exacerbation J44.1 Congestive heart failure with preserved left ventricular function, NYHA class 3 I50.30
== END 2023-10-17 15:05 | disposition home or self-care (01) ==
LOC: HO.HMGH 14:36
PROVIDERS: PCP Internal Medicine; Visit Provider Internal Medicine
DX: J44.1 Chronic obstructive pulmonary disease with (acute) exacerbation (principal); I50.30 Unspecified diastolic (congestive) heart failure
CPT/HCPCS: 99443

== ENCOUNTER → 2023-11-21 12:44 | Outpatient (REF) | payer MEDICARE, OTHER, SELFPAY ==
--- NOTE | 2023-11-21 12:46 | CA_ITS ---
Transthoracic Echocardiogram Patient (Last, First, Middle): Zuleyma Gutierrez A Gender: Female Date of : 1935 Age: 88 Procedure Date: 11/21/2023 Procedure Type: Transthoracic Echocardiogram Location: OP Height: 147.32 cm Weight: 65.32 kg BSA: 1.58 m2 Heart Rate: bpm BP: 118 / 60 mmHg Project Admin: Referring MD: Solange Jacobs MD Symptoms: I35.0 - Nonrheumatic aortic (valve) stenosis Study Quality: Adequate ECG Rhythm: Atrial Fibrillation Conclusions: - Normal left ventricular size and systolic function. There is severely increased left ventricular wall thickness. The visually estimated ejection fraction is between 55-60%. - Normal right ventricular cavity size. There is low normal right ventricular systolic function. - The left atrium is severely dilated. - There is moderate calcification of the aortic valve. There is mild aortic valve stenosis. There is mild aortic valve regurgitation. - There is mild mitral valve regurgitation. - There is mild dilatation of the ascending aorta measuring 3.60 cm. Findings Left Ventricle Normal left ventricular size and systolic function. There is severely increased left ventricular wall thickness. The visually estimated ejection fraction is between 55-60%. There is no evidence of regional wall motion abnormalities. Diastolic function is indeterminate on the basis of available data. Right Ventricle Normal right ventricular cavity size. There is low normal right ventricular systolic function. Atria The left atrium is severely dilated. Aortic Valve There is moderate calcification of the aortic valve. There is mild aortic valve stenosis. There is mild aortic valve regurgitation. Mitral Valve The mitral valve appears normal. There is mild mitral annular calcification. There is mild mitral valve regurgitation. There is no mitral valve stenosis. Pulmonic Valve The pulmonic valve is normal. There is trace pulmonic valve regurgitation. Tricuspid Valve Normal tricuspid valve structure. There is trace tricuspid valve regurgitation. Normal right atrial pressure. There is no evidence of pulmonary hypertension. Great Vessels There is mild dilatation of the ascending aorta measuring 3.60 cm. The visualized portions of the pulmonary artery and branches are normal. Venous The inferior vena cava is normal in size and collapses greater than 50% with inspiration. Pericardium/Pleural There is no evidence of pericardial effusion. Prior Study Comparison No significant change compared to prior study dated: 11/18/2022. Measurements 2D Linear Measurements IVSd: 1.53 0.6-0.9/0.6-1.0 cm LVIDd: 3.25 3.9-5.3/4.2-5.9 cm LVIDd Index: 2.06 2.4-3.2/2.2-3.1 cm/m2 LVIDs: 2.32 2.0-3.6 cm LVPWd: 1.41 0.7-1.1 cm LA Diam: 4.20 2.7-3.8/3.0-4.0 cm LAIDs Index: 2.66 1.5-2.3 cm/m2 LV Mass: 210.96 67-162/88-224 g LV Mass Index: 133.52 43-95/49-115 g/m2 LVOT Diam: 2.00 3.0+(-)1.3 cm 2D Systolic Function EF 4C: 46.50 >55% EF 2C: 56.10 >55% EF BiP: 49.10 >55% Mitral Valve MV Pk E: 1.05 MV Decel Time: 216.00 E'Lateral: 7.62 E'Medial: 5.77 E/E' Med: 18.20 E/E' Lat: 13.80 PHT: 63.00 MVA PHT: 3.49 Decel [place]: 4.87 Aortic Valve AoV Pk Koby: 2.05 AoV Mn Koby: 1.41 AoV VTI: 0.43 AoV Pk Grad: 17.00 Aov Mn Grad: 9.00 GARFIELD Cont.VTI: 1.35 LVOT LVOT Pk Koby: 0.72 LVOT Mn Koby: 0.50 LVOT VTI: 0.19 LVOT Pk Grad: 2.00 LVOT Mn Grad: 1.00 LVOT Diam: 2.00 LVOT Area: 3.14 Diastolic Function MV Pk E: 1.05 E'Medial: 5.77 E/E' Med: 18.20 E' Laterial: 7.62 E/E' Lat: 13.80 Right Ventricle TAPSE (mm): 21.10 TVS' Koby: 9.57 Tricuspid Valve TR Pk Koby: 2.64 TR Pk Grad: 28.00 RA Press: 8.00 RVSP: 36.00 Great Vessels Aorta Sinus of Valsalva: 3.10 2.0-3.5 cm Ao Asc: 3.60 2.1-3.4 cm Pulmonary Valve PV Pk Koby: 0.75 Peak PV Grad: 2.00 Updated in Other Vendor System with Status of Final Joby Vidal MD electronically signed on 11/22/2023 1:24:34 PM with status of Final
== END ==
LOC: HO.CARD 12:44
PROVIDERS: PCP Internal Medicine; Visit Provider Internal Medicine
DX: I35.0 Nonrheumatic aortic (valve) stenosis (principal)
CPT/HCPCS: 93306

== ENCOUNTER → 2023-11-21 12:46 | Outpatient (BNV) | payer MEDICARE, OTHER, SELFPAY | PROVIDERS: PCP Internal Medicine; Visit Provider Internal Medicine Cardiovascular Disease | DX: I35.2 Nonrheumatic aortic (valve) stenosis with insufficiency (principal); I35.8 Other nonrheumatic aortic valve disorders; I34.0 Nonrheumatic mitral (valve) insufficiency; I34.81 Nonrheumatic mitral (valve) annulus calcification | CPT/HCPCS: 93306 ==

== ENCOUNTER 2024-01-10 09:07 | Inpatient (IN) | payer MEDICARE, OTHER, SELFPAY ==
[2024-01-10] VITALS (11 sets, daily range): BP systolic 81–168; BP diastolic 64–110; PULSE 91–119; RESP 12–20; TEMP 36.2–37.2; O2SAT 91–100; BMI 31.2
--- NOTE | ~2024-01-10 | CT_ITS ---
EXAMINATION: CT ABDOMEN AND PELVIS WITHOUT CONTRAST CLINICAL INFORMATION: Abdominal pain. Nausea and vomiting. COMPARISON: MRI abdomen 03/27/2021 TECHNIQUE: Multidetector volumetric imaging was performed from the superior aspect of the liver through the pubic symphysis. Sagittal and coronal reformatted images were obtained on the technologist's workstation. This CT examination was performed using dose optimization techniques as appropriate, variously including the following: *Automated exposure control *Adjustment of mA and/or kV according to patient size (this includes techniques or standardized protocols for targeted exams where dose is matched to indication/reason for exam; i.e. extremities or head) *Use of iterative reconstruction technique DLP: 462 mGy-cm FINDINGS: LUNG BASES: Small right pleural effusion. Trace left pleural effusion. LIVER, GALLBLADDER, AND BILIARY TREE: The noncontrast liver is normal in size and contour attenuation. No biliary ductal dilatation is present. The gallbladder is not visualized. PANCREAS: Cyst possibly arising from the uncinate process measuring 2.3 x 2.8 cm. SPLEEN: Not enlarged. ADRENAL GLANDS: No adrenal mass. KIDNEYS AND URETERS: Bilateral renal hypodensities incompletely characterized without intravenous contrast. No hydronephrosis or perinephric fluid collection. No renal calculus. BLADDER: Unremarkable. GASTROINTESTINAL TRACT: Possible gastric wall thickening. Duodenal diverticulum. Diverticular disease of the colon without evidence for acute inflammation. No small bowel obstruction. ABDOMINAL WALL: Small fat-containing umbilical hernia. LYMPH NODES: No bulky lymphadenopathy. VASCULAR: Severe atherosclerotic vascular calcifications. No abdominal aortic aneurysm. PELVIC VISCERA: Uterus is surgically absent. OSSEOUS STRUCTURES: No destructive bone lesions. CT/CT abdomen pelvis wo IV con IMPRESSION: Possible interval increase in size of cyst arising from the pancreas measuring 2.3 x 2.8 cm on the current study. MRI/MRCP may be considered. Possible gastric wall thickening. Consider correlation with direct visualization. Small right pleural effusion.
--- NOTE | ~2024-01-10 | XR_ITS ---
EXAMINATION: XR CHEST CLINICAL INFORMATION: Dyspnea COMPARISON: Chest radiograph from 08/05/2023 TECHNIQUE: Frontal view of the chest was obtained. FINDINGS: Slight blunting of the bilateral costophrenic recesses which may reflect trace pleural effusion. Bibasilar radiopacities suggesting atelectasis. Radiopacity in the region of the right hilum which may be accentuation of the central vasculature/summation artifact though lymphadenopathy is not excluded. No pneumothorax. Trachea is midline. Cardiac mediastinal silhouette is stable. Aorta demonstrates atherosclerotic calcifications. Osseous structures are intact. Soft tissues are unremarkable. XR/XR chest 1V IMPRESSION: 1. Slight blunting of the bilateral costophrenic recesses which may reflect trace pleural effusion. 2. Bibasilar radiopacities suggesting atelectasis. 3. Radiopacity in the region of the right hilum which may be accentuation of the central vasculature/summation artifact though lymphadenopathy is not excluded.
--- NOTE | 2024-01-10 09:28 | ECG_ITS ---
Test Reason : DYSPNEA Blood Pressure : / mmHG Vent. Rate : 104 BPM Atrial Rate : 000 BPM P-R Int : 000 ms QRS Dur : 082 ms QT Int : 354 ms P-R-T Axes : 000 -16 016 degrees QTc Int : 465 ms Atrial fibrillation with rapid ventricular response Septal infarct (cited on or before 22-JUN-2019) Abnormal ECG When compared with ECG of 05-AUG-2023 11:47, Atrial fibrillation has replaced Sinus rhythm Referred By: Gretchen Arshad Electronically Signed By:GEORGE SCHMITT MD
[2024-01-10 09:30] LABS: Appearance Urine Clear; Color Urine Yellow; Glucose Urine UA Negative (Negative); Leukocyte Esterase Urine Trace (Negative); Nitrite Urine Negative (Negative); Specific Gravity - Urine <= 1.005 (1.005-1.025); UMIC TRIGGER UACC YES; Urine Blood Negative (Negative); Urine Ketones Negative (Negative); Urine Protein Negative (Neg-Trace)
[2024-01-10 09:35] LABS: Bacteria Urine None Seen (None Seen); Hyaline Casts Urine 0-2 /LPF (0-2); RBC Urine 0-2 /HPF (0-2); Squamous Epithelial Cell Urine 0-2 /HPF (0-2); WBC Urine 0-5 /HPF (0-5)
--- NOTE | 2024-01-10 09:39 | PC.NURSE ---
Patient brought in by EMS with complaints of sob x 1 week. Patient reports hx of afib and anxiety, took all home meds today except her xanax. Patient initially anxious however appears to calm as conversation continued. Patient stating she needed to go to the bathroom , gait unsteady attempting to use wall to steady herself. Red socks placed along with bedside commode. Patient instructed to use call otto when needing to go to the bathroom. Per patient fell x 1 week ago, denies headstrike while trying to bring out the trash. States was at [facility] for rehab recently
--- NOTE | 2024-01-10 09:54 | ED_ITS ---
HPI - SOB/Dyspnea General Chief Complaint: Dyspnea Stated Complaint: SOB/ANXIETY PER EMS Time Seen by Provider: 01/10/24 09:23 Source: patient Mode of arrival: ambulatory Limitations: no limitations History of Present Illness ED Provider: MADHU TAVERAS Narrative: 88 yo female with PMH of afib on eliquis and metoprolol, CHF, anemia, anxiety, aortic stenosis, COPD not on home O2, DM, GERD, HLD, HTN here with c/o 2 weeks of feeling short of breath, fell 1+ week ago no head strike. She denies fevers, increased sputum, chest pain. She states her words come out weird because she is working hard to breathe. She reports no orthopnea and is compliant with all medications. She denies n/v/d headaches or confusion. She is very anxious about going home and states she loves it at [facility]. MD elicited complaint: shortness of breath Pertinent past history: COPD and congestive heart failure Onset (ago): week(s) (2) Timing: intermittent Severity: moderate Exacerbating factors: stress Relieving factors: nothing Known history of: COPD, congestive heart failure and diabetes Associated symptoms: cough Treatment prior to arrival: none Related Data Home Medications ?Medication ?Instructions ?Recorded ?Confirmed cholecalciferol (vitamin D3) 25 25 mcg PO DAILY 08/26/22 09/18/23 mcg (1,000 unit) capsule cyanocobalamin (vitamin B-12) 1,000 mcg PO DAILY 08/06/23 09/18/23 1,000 mcg tablet (Vitamin B-12) tramadol 50 mg tablet 50 mg PO DAILY PRN Pain 08/06/23 09/18/23 blood-glucose meter (OneTouch 01/07/24 Verio Flex Start kit) Previous Rx's ?Medication ?Instructions ?Recorded hydrocortisone 2.5 % topical cream 1 appl WA BID-QID PRN hemorrhoids 04/07/23 with perineal applicator #30 grams (Proctosol HC) pediatric front wheel walker #1 ea 09/02/23 PEDIATRIC FRONT WHEELED WALKER #1 ea 09/18/23 apixaban 2.5 mg tablet (Eliquis) 2.5 mg PO BID #180 tabs 09/22/23 lisinopril 5 mg tablet 5 mg PO DAILY #90 tabs 09/22/23 azithromycin 250 mg tablet See Rx Instructions PO .COMPLEX #6 10/17/23 (Zithromax) tabs prednisone 10 mg tablet See Rx Instructions PO DAILY #20 10/17/23 tabs diclofenac sodium 1 % topical gel 4 g topical QID #300 grams 10/28/23 (Arthritis Pain (diclofenac)) albuterol sulfate 90 mcg/actuation 1 puff inhalation QID 90 days #8.5 11/17/23 aerosol inhaler (ProAir HFA) grams alprazolam 0.25 mg tablet 0.25 mg PO DAILY anxiety 30 days 11/17/23 #30 tabs atorvastatin 40 mg tablet (Lipitor) 40 mg PO DAILY #90 tabs 11/17/23 dexlansoprazole 60 mg 60 mg PO DAILY #90 caps 11/17/23 capsule,biphase delayed release (Dexilant) lancets 28 gauge (FreeStyle #100 ea 11/17/23 Lancets) furosemide 40 mg tablet 40 mg PO DAILY #90 tabs 12/19/23 metoprolol succinate 50 mg 50 mg PO DAILY 90 days #90 tabs 12/19/23 tablet,extended release 24 hr montelukast 10 mg tablet 10 mg PO DAILY #90 tabs 12/19/23 (Singulair) pregabalin 100 mg capsule 100 mg PO Q12H 30 days #60 caps 12/19/23 empagliflozin 10 mg tablet 10 mg PO DAILY #30 tabs 12/26/23 (Jardiance) folic acid 1 mg tablet 1 mg PO DAILY #90 tabs 01/02/24 ascorbic acid (vitamin C) 500 mg 500 mg PO DAILY #90 tabs 01/09/24 tablet (Vitamin C) Allergies Allergy/AdvReac Type Severity Reaction Status Date / Time ciprofloxacin Allergy Severe unknown Verified 01/10/24 09:20 aspirin [Aspirin] Allergy Unknown UNKNOWN Verified 01/10/24 09:20 cefuroxime Allergy Unknown Unknown Verified 01/10/24 09:20 celecoxib [From Celebrex] Allergy Unknown UNKNOWN Verified 01/10/24 09:20 metformin Allergy Unknown diarrhea Verified 01/10/24 09:20 risedronate sodium Allergy Unknown UNKNOWN Verified 01/10/24 09:20 [From Actonel] Sulfa (Sulfonamide Allergy Unknown unknown Verified 01/10/24 09:20 Antibiotics) bupropion AdvReac Intermediate tremor Verified 01/10/24 09:20 ferrous sulfate AdvReac Intermediate tremors Verified 01/10/24 09:20 sertraline AdvReac Intermediate tremors Verified 01/10/24 09:20 Review of Systems 2 Review of Systems: Constitutional : No Fever, No Chills ENT/Mouth : No sore throat, No Rhinorrhea, No Swallowing Difficulty Eyes: No Eye Pain, No Swelling, No Redness Cardiovascular : No Chest Pain, positive SOB, No Orthopnea, no Edema Respiratory : No Cough, No Sputum, No Wheezing, positive dyspnea Gastrointestinal : No Nausea, No Vomiting, No Diarrhea, No abdominal Pain, No Hematochezia, No Melena Genitourinary : No Dysuria, No Urinary Frequency, No Hematuria Musculoskeletal : No joint pain, No Myalgias Skin : No Skin Lesions, No rash Neuro : No Weakness, No Numbness, No Dizziness, No Headache Psych : No Anxiety/Panic, No Depression All other systems reviewed and are negative PMFSH Past Medical History Attestation statement: The following information was validated with the patient. Source: old records reviewed Medical History Hypokalemia Hypomagnesemia Diarrhea Hearing difficulty Dyspnea on exertion History of gastrointestinal diverticular hemorrhage COVID-19 virus infection Rectal bleeding Medicare annual wellness visit, initial Hip pain, left Patellar sleeve fracture of right knee Knee pain, right Nausea and vomiting Coarse tremors Shoulder pain, right Hospital discharge follow-up Mass on back Constipation Tinea corporis Nausea Right wrist pain Left knee pain Left hip pain Toe pain, left Breast cancer screening by mammogram UTI (urinary tract infection) Type 2 diabetes mellitus with hyperglycemia Obesity (BMI 30-39.9) Lipoma of lower back Urinary frequency Toe fracture, left Pancreatic cyst Osteoporosis Peptic ulcer disease Urinary incontinence Rectal incontinence GERD (gastroesophageal reflux disease) Bile salt-induced diarrhea Vaginal prolapse Renal artery stenosis Asthma Lumbar degenerative disc disease Insomnia TIA (transient ischemic attack) Hyperlipidemia, unspecified Essential hypertension Surgical History Hx of colonoscopy History of esophagogastroduodenoscopy (EGD) History of removal of cyst (~10/17/21) History of hemorrhoidectomy History of colectomy History of section History of hysterectomy History of appendectomy History of cholecystectomy Family History Family History Father Cancer Arterial thrombosis Mother Multiple sclerosis Muscular dystrophy Hypertension Depression Chronic mental illness Mental health disorder Brother No problems noted. Brother Gangrene Sister No problems noted. Son No problems noted. Son No problems noted. Son No problems noted. Son No problems noted. Daughter No problems noted. Daughter No problems noted. Daughter No problems noted. Social History Social History Household Members: None Housing: Apartment Do you presently have visiting nurse or other home services: No Alcohol intake: former Patient Tobacco Use Status: Former Tobacco user Tobacco use type: Cigarette Years Smoked: 1996 quit Smoked in Last 30 Days: No e-Cigarette/Vaping Use: Never Used Second Hand Smoke Exposure: No Use of substances other than those prescribed or required for medical reasons: No Advance Directives: Yes Advance Directives on File: Yes Advance Directives Date on File: 08/06/23 service: No Current occupational status: disabled Current occupational exposures/hazards: No Cognitive needs: Yes Hearing needs: Yes Vision needs: Yes Physical Exam 2 Vital Signs: Vital Signs: Last Vital Signs Temp 97.7 F 01/10/24 09:19 Pulse 115 H 01/10/24 10:12 Resp 14 01/10/24 10:12 BP 146/78 H 01/10/24 10:04 Pulse Ox 94 01/10/24 09:26 O2 Del Method Room Air 01/10/24 09:26 BMI result Body Mass Index 31.2 Appearance: Alert. Oriented X3. No acute distress. anxious at first was breathing heavy then once we started to talk she calmed down and her sats were 94% she stopped hyperventilating and her voice was normal Eyes: Pupils equal, round and reactive to light. ENT: Pharynx normal. Neck: Normal inspection. Neck supple. CVS: irregular heart rate and rhythm. Pulses normal. Respiratory: No respiratory distress. Breath sounds mildly diminished no wheezes Abdomen: Soft and nontender. Skin: Skin warm and dry. Normal skin color. Normal skin turgor. Extremities: No lower extremity edema. No calf ttp Neuro: Oriented X 3. No motor deficit. No sensory deficit. Course Course Course Narrative: HR slightly high in afib po metoprolol ordered BNP high - IV lasix ordered patient reports she has been taking all medications though HR is up - she states she took all of her meds this AM Medications Administered Discontinued Medications Generic Name Dose Route Start Last Admin Trade Name Román PRN Reason Stop Dose Admin Albuterol Sulfate 2.5 mg/ 0 mg 01/10/24 10:01 01/10/24 10:11 Albuterol/Ipratropium 3 ml INHALE 01/10/24 10:02 2 dose ONCE ONE Administration Furosemide 40 mg 01/10/24 10:31 01/10/24 11:18 Furosemide 40 Mg/4 Ml Vial IVPUSH 01/10/24 10:32 40 mg ONCE ONE Administration Protocol Methylprednisolone Sodium Succinate 60 mg 01/10/24 10:18 01/10/24 11:17 Methylprednisolone Sod Succ 125 Mg/2 Ml Vial IVPUSH 01/10/24 10:19 60 mg ONCE ONE Administration Metoprolol Tartrate 25 mg 01/10/24 09:48 01/10/24 10:04 Metoprolol Tartrate 25 Mg Tablet PO 01/10/24 09:49 25 mg ONCE ONE Administration Protocol Medical Decision Making Medical Decision Making [facility] Narrative: 88 yo female with PMH of afib on eliquis and metoprolol, CHF, anemia, anxiety, aortic stenosis, COPD not on home O2, DM, GERD, HLD, HTN here with c/o dyspnea though she denies fevers, chest pain, she reports she is compliant with medications but HR is up - PO metoprolol ordered. She denies orthopnea. At this time will obtain basic labs, EKG, CXR, BNP, viral panel. A lot of this is anxiety driven and she is fixated on not going home and wants to go to [facility]. She notes she fell 1+ week denies head strike has no headaches, confusion, vomiting doubt ICH at this time. Differential Diagnosis Differential Diagnoses: The differential diagnosis associated with the presentation includes asthma exacerbation, anxiety, CHF Admission/Observation Consideration of admission/observation: Escalation of care including admission/observation considered O2 91%, afib, BNP higher than baseline, IV lasix needed Consult Healthcare Provider Management of the patient was discussed with: Hospitalist (will admit) Lab Data [facility] Lab Attestation statement: I reviewed the patient's lab results. 01/10/24 09:58 01/10/24 09:58 Labs: Lab Results 08/10/24 08/10/24 Range/Units 09:23 09:58 WBC 7.0 (4.8-10.8) X10*3/uL RBC 4.58 (4.20-5.50) X10*6/uL Hgb 14.0 (12.0-16.0) g/dl Hct 42.1 (37.0-47.0) % MCV 91.9 (80.0-98.0) fL MCH 30.6 (27.0-33.0) pg MCHC 33.3 (31.0-35.0) g/dl RDW 13.9 (11.0-16.0) % Plt Count 221 (160-400) X10*3/uL MPV 11.3 (9.4-12.3) fL Immature Gran % (Auto) 0.3 (0.0-0.4) % Neut % (Auto) 60.8 (45-73) % Lymph % (Auto) 25.1 (20-40) % Braxton % (Auto) 11.2 H (2-11) % Eos % (Auto) 2.0 (0-4) % Baso % (Auto) 0.6 (0-2) % Lymph # (Auto) 1.8 (1.2-4.9) X10*3/uL Braxton # (Auto) 0.8 (0.1-1.2) X10*3/uL Eos # (Auto) 0.1 (0.0-0.4) X10*3/uL Baso # (Auto) 0.0 (0.0-0.2) X10*3/uL Abs Immat Gran (auto) 0.02 (0.00-0.03) X10*3/uL Absolute Neuts (auto) 4.2 (2.0-8.3) x10*3/uL Absolute Nucleated RBC 0.000 (0.0-0.012) X10*3/uL Nucleated RBC % (auto) 0.0 (0.0-0.2) /100WBC Sodium 145 (135-145) mmol/L Potassium 3.9 (3.3-5.1) mmol/L Chloride 109 H (96-108) mmol/L Carbon Dioxide 27 (22-29) mmol/L Anion Gap 13 (12-20) BUN 17 H (9-16) mg/dL Creatinine 0.95 (0.5-1.4) mg/dL Estim Creat Clear Calc 37.7 Estimated GFR 56 Random Glucose 175 H (60-115) mg/dL Calcium 10.0 (8.4-10.2) mg/dL Magnesium 1.8 (1.6-2.6) mg/dL Total Bilirubin 1.2 H (0.0-1.0) mg/dL Direct Bilirubin 0.4 (0.0-0.5) mg/dL AST 20 (5-31) U/L ALT 18 (0-31) U/L Alkaline Phosphatase 116 (39-117) U/L Troponin I High Sens 5.5 D (<3.5-17.0) ng/L B-Natriuretic Peptide 693 H (<100) pg/mL Total Protein 7.1 (6.5-8.0) g/dL Albumin 4.1 (3.5-5.0) g/dL Urine Color Yellow Urine Appearance Clear Urine pH 7.0 (5.0-9.0) Ur Specific Allen <= 1.005 (1.005-1.025) Urine Protein Negative (Neg-Trace) mg/dL Urine Glucose (UA) Negative (Negative) mg/dL Urine Ketones Negative (Negative) mg/dL Urine Blood Negative (Negative) Urine Nitrite Negative (Negative) Ur Leukocyte Esterase Trace H (Negative) Urine RBC 0-2 (0-2) /HPF Urine WBC 0-5 (0-5) /HPF Ur Squamous Epith Cells 0-2 (0-2) /HPF Urine Bacteria None Seen (None Seen) Hyaline Casts 0-2 (0-2) /LPF Influenza Type A (PCR) NEGATIVE (Negative) Influenza Type B (PCR) NEGATIVE (Negative) RSV RNA Qual (PCR) NEGATIVE (Negative) SARS-CoV-2 RNA (RT-PCR) NEGATIVE (Negative) Independent Interpretation I performed an independent interpretation of an: EKG and Plain X-Ray (effusions) Interpretation: Rate: 104 Rhythm: afib [place]: left Normal QRS complex. ST T wave : no JUST[place] qTC: 465 prior studies: no acute ischemia The study has been interpreted contemporaneously by me. . Radiology Impression Discussion of test interpretation with radiology: I have reviewed the radiologist's reading. Independent Historian Clinical information obtained from an independent historian. History obtained from or confirmed by: EMS External Record Review External record reviewed: Inpatient record Discharge Plan Discharge Clinical Impression: Acute dyspnea, Asthma, CHF (congestive heart failure) Patient Disposition: Admitted As Inpatient Prescriptions: No Action hydrocortisone [Proctosol HC] 2.5 % cream with perineal applicator 1 appl [place] BID-QID PRN (Reason: hemorrhoids) Qty: 30 0RF (DME) pediatric front wheel walker See Rx Instructions .Route .MEDSUPPLY Qty: 1 0RF Rx Instructions: As directed Eliquis 2.5 mg tablet 2.5 mg PO BID Qty: 180 3RF lisinopril 5 mg tablet 5 mg PO DAILY Qty: 90 3RF diclofenac sodium [Arthritis Pain (diclofenac)] 1 % gel 4 g topical QID Qty: 300 3RF Rx Instructions: apply to single knee, ankle, foot; for foot includes sole/toes/top of foot atorvastatin [Lipitor] 40 mg tablet 40 mg PO DAILY Qty: 90 3RF albuterol sulfate [ProAir HFA] 90 mcg/actuation HFA aerosol inhaler 1 puff inhalation QID 90 Days Qty: 8.5 0RF alprazolam 0.25 mg tablet 0.25 mg PO DAILY 30 Days Qty: 30 0RF Dexilant 60 mg capsule,biphase delayed releas 60 mg PO DAILY Qty: 90 3RF (DME) lancets [FreeStyle Lancets] 28 gauge misc See Rx Instructions .ROUTE .MEDSUPPLY Qty: 100 3RF Rx Instructions: use to test sugar once a day montelukast [Singulair] 10 mg tablet 10 mg PO DAILY Qty: 90 2RF metoprolol succinate 50 mg tablet extended release 24 hr 50 mg PO DAILY 90 Days Qty: 90 2RF furosemide 40 mg tablet 40 mg PO DAILY Qty: 90 2RF pregabalin 100 mg capsule 100 mg PO Q12H 30 Days Qty: 60 2RF Jardiance 10 mg tablet 10 mg PO DAILY Qty: 30 0RF folic acid 1 mg tablet 1 mg PO DAILY Qty: 90 2RF (DME) blood-glucose meter [[employer] Verio Flex Start] Kit See Rx Instructions .Route Rx Instructions: Test twice a day ascorbic acid (vitamin C) [Vitamin C] 500 mg tablet 500 mg PO DAILY Qty: 90 1RF tramadol 50 mg tablet 50 mg PO DAILY PRN (Reason: Pain) cyanocobalamin (vitamin B-12) [Vitamin B-12] 1,000 mcg Tablet 1,000 mcg PO DAILY (DME) PEDIATRIC FRONT WHEELED WALKER See Rx Instructions .Route .MEDSUPPLY Qty: 1 0RF Rx Instructions: As directed prednisone 10 mg tablet See Rx Instructions PO DAILY Qty: 20 0RF Rx Instructions: 4 tabs QD x 2 days then 3 tabs QD x 2 days then 2 tabs Qd x 2 days then 1 tab QD x 2 days PO daily; azithromycin [Zithromax] 250 mg tablet See Rx Instructions PO .COMPLEX Qty: 6 0RF Rx Instructions: For 250 mg dose pack: take 500 mg today (day 1), then 250 mg for 4 days (days 2-5) PO cholecalciferol (vitamin D3) 25 mcg (1,000 unit) capsule 25 mcg PO DAILY Print Language: Ecuadorean
[2024-01-10 10:03] LABS: MANUAL DIFF FLAG NO
[2024-01-10] MEDS: Metoprolol Tartrate 25 MG TABLET PO ×2 (10:04→17:29)
[2024-01-10 10:09] LABS: Basophils Percent Auto 0.6 % (0-2); Eosinophils Absolute Auto 0.1 X10*3/uL (0.0-0.4); Hematocrit 42.1 % (37.0-47.0); Imm Gran Abs Auto 0.02 X10*3/uL (0.00-0.03); Imm Gran Pct Auto 0.3 % (0.0-0.4); Lymphocytes Absolute Auto 1.8 X10*3/uL (1.2-4.9); Lymphocytes Percent Auto 25.1 % (20-40); Mean Corpuscular HGB Conc 33.3 g/dl (31.0-35.0); Mean Corpuscular Hemoglobin 30.6 pg (27.0-33.0); Mean Corpuscular Volume 91.9 fL (80.0-98.0); Mean Platelet Volume 11.3 fL (9.4-12.3); Monocytes Absolute Auto 0.8 X10*3/uL (0.1-1.2); Monocytes Percent Auto 11.2 % (2-11); Neutrophils Absolute Auto 4.2 x10*3/uL (2.0-8.3); Neutrophils Percent Auto 60.8 % (45-73); Platelet Count 221 X10*3/uL (160-400); Red Blood Count 4.58 X10*6/uL (4.20-5.50); Red Cell Distribution Width 13.9 % (11.0-16.0)
[2024-01-10] MEDS: Albuterol Sulfate 2.5 MG, Albuterol/Iprat 2.5/0.5MG 3 ML 3 ML INHALE (10:11)
[2024-01-10 10:21] LABS: Alanine Aminotransferase 18 U/L (0-31); Albumin Level 4.1 g/dL (3.5-5.0); Alkaline Phosphatase 116 U/L (39-117); Anion Gap 13 (12-20); Aspartate Amino Transferase 20 U/L (5-31); Bilirubin Direct 0.4 mg/dL (0.0-0.5); Bilirubin Total 1.2 mg/dL (0.0-1.0); Blood Urea Nitrogen 17 mg/dL (9-16); Carbon Dioxide 27 mmol/L (22-29); Chloride 109 mmol/L (96-108); Creatinine Clr Calc Pharmacy 37.7; Estimated Glomerular Filt Rate 56; Glucose Random 175 mg/dL (60-115); Magnesium 1.8 mg/dL (1.6-2.6); Potassium 3.9 mmol/L (3.3-5.1); Sodium 145 mmol/L (135-145); Total Protein 7.1 g/dL (6.5-8.0)
[2024-01-10 10:27] LABS: B Type Natriuretic Peptide 693 pg/mL (<100)
[2024-01-10 10:28] LABS: Troponin-I High Sensitivity 5.5 ng/L (<3.5-17.0)
[2024-01-10 10:45] LABS: Influenza A PCR NEGATIVE (Negative); Influenza B PCR NEGATIVE (Negative); Resp Syncy Virus RNA Qual PCR NEGATIVE (Negative); SARS COV2 PCR INHOUSE NEGATIVE (Negative)
[2024-01-10] MEDS: methylPREDNISolone Sod Succ 125 MG/2 ML VIAL 60 MG IVPUSH (11:17)
[2024-01-10] MEDS: Furosemide 40 MG/4 ML VIAL IVPUSH (11:18)
--- NOTE | 2024-01-10 13:07 | P.HPHOSP_ITS ---
History of Present Illness Date of Service: 01/10/24 Attending physician on admission: Titi Graham Chief Complaint: Shortness of breath This is an 88-year-old female who presents to the emergency department with shortness of breath. Patient reports several weeks increasing shortness of breath which is worse with exertion. She denies any associated cough or fever. She denies any recent sick contacts. She feels that her lower extremities have been more swollen than usual. She also reports intermittent dizziness and more anxiety than usual over the past several days which prompted her to come to the emergency department today. Workup revealed elevated BNP as well as chest x-ray which was consistent with CHF. She received IV Lasix as well as breathing treatment and Solu-Medrol for underlying asthma/COPD. She was also noted to be in atrial fibrillation with rapid ventricular response. She does report that she took her daily medications this morning as prescribed. She denies any palpitations or chest pain. She will be admitted for further management of acute CHF exacerbation and atrial fibrillation with rapid ventricular response. Review of Systems 2 Review of Systems: Yes all other systems are reviewed and are negative Constitutional: Constitutional: Denies chills and Denies fever(s) Cardiovascular: Cardiovascular: Denies chest pain, Reports dyspnea and Reports dyspnea on exertion Respiratory: Respiratory: Reports dyspnea and Reports dyspnea on exertion [facility] Medical History Hypokalemia Hypomagnesemia Diarrhea Hearing difficulty Dyspnea on exertion History of gastrointestinal diverticular hemorrhage COVID-19 virus infection Rectal bleeding Medicare annual wellness visit, initial Hip pain, left Patellar sleeve fracture of right knee Knee pain, right Nausea and vomiting Coarse tremors Shoulder pain, right Hospital discharge follow-up Mass on back Constipation Tinea corporis Nausea Right wrist pain Left knee pain Left hip pain Toe pain, left Breast cancer screening by mammogram UTI (urinary tract infection) Type 2 diabetes mellitus with hyperglycemia Obesity (BMI 30-39.9) Lipoma of lower back Urinary frequency Toe fracture, left Pancreatic cyst Osteoporosis Peptic ulcer disease Urinary incontinence Rectal incontinence GERD (gastroesophageal reflux disease) Bile salt-induced diarrhea Vaginal prolapse Renal artery stenosis Asthma Lumbar degenerative disc disease Insomnia TIA (transient ischemic attack) Hyperlipidemia, unspecified Essential hypertension Family History Father Cancer Arterial thrombosis Mother Multiple sclerosis Muscular dystrophy Hypertension Depression Chronic mental illness Mental health disorder Brother No problems noted. Brother Gangrene Sister No problems noted. Son No problems noted. Son No problems noted. Son No problems noted. Son No problems noted. Daughter No problems noted. Daughter No problems noted. Daughter No problems noted. Surgical History Hx of colonoscopy History of esophagogastroduodenoscopy (EGD) History of removal of cyst (~10/17/21) History of hemorrhoidectomy History of colectomy History of section History of hysterectomy History of appendectomy History of cholecystectomy Social History Household Members: None Housing: Apartment Do you presently have visiting nurse or other home services: No Alcohol intake: former Patient Tobacco Use Status: Former Tobacco user Tobacco use type: Cigarette Years Smoked: 1997 quit Smoked in Last 30 Days: No e-Cigarette/Vaping Use: Never Used Second Hand Smoke Exposure: No Use of substances other than those prescribed or required for medical reasons: No Advance Directives: Yes Advance Directives on File: Yes Advance Directives Date on File: 08/06/23 service: No Current occupational status: disabled Current occupational exposures/hazards: No Cognitive needs: Yes Hearing needs: Yes Vision needs: Yes Meds Allergies Allergy/AdvReac Type Severity Reaction Status Date / Time ciprofloxacin Allergy Severe unknown Verified 01/10/24 09:20 aspirin [Aspirin] Allergy Unknown UNKNOWN Verified 01/10/24 09:20 cefuroxime Allergy Unknown Unknown Verified 01/10/24 09:20 celecoxib [From Celebrex] Allergy Unknown UNKNOWN Verified 01/10/24 09:20 metformin Allergy Unknown diarrhea Verified 01/10/24 09:20 risedronate sodium Allergy Unknown UNKNOWN Verified 01/10/24 09:20 [From Actonel] Sulfa (Sulfonamide Allergy Unknown unknown Verified 01/10/24 09:20 Antibiotics) bupropion AdvReac Intermediate tremor Verified 01/10/24 09:20 ferrous sulfate AdvReac Intermediate tremors Verified 01/10/24 09:20 sertraline AdvReac Intermediate tremors Verified 01/10/24 09:20 Active Medications: Current Medications Acetaminophen (Acetaminophen 325 Mg Tablet) 650 mg PO Q6H PRN PRN Reason: Pain, Mild (Pain Scale 1-3), fever or headache Calcium Carbonate (Calcium Carbonate 750 Mg Tab.Chew) 750 mg PO Q4H PRN PRN Reason: Heartburn Glucose (Glucose Gel 15 Gm Gel..Gram.) 15 gm PO Q15M PRN; Protocol PRN Reason: per Hypoglycemia Standing Ord. Dextrose (D10) 250 mls @ 750 mls/hr IV Q15M PRN; Protocol PRN Reason: per Hypoglycemia Standing Ord. Insulin Human Lispro (Insulin Lispro 100 Unit/Ml 3 Ml Vial) [facility]; Protocol Magnesium Hydroxide (Milk Of Magnesia 30 Ml Oral.Susp) 30 ml PO DAILY PRN PRN Reason: Constipation Melatonin (Melatonin 3 Mg Tablet) 6 mg PO BEDTIME PRN PRN Reason: Insomnia Sodium Chloride (0.9 % Sodium Chloride Flush 3 Ml Syringe) 3 ml IVFLUSH [facility] Home Medications ?Medication ?Instructions ?Recorded ?Confirmed ?Last Taken ?Type cholecalciferol (vitamin D3) 25 25 mcg PO DAILY 08/26/22 01/10/24 01/10/24 09:00 History mcg (1,000 unit) capsule cyanocobalamin (vitamin B-12) 1,000 mcg PO DAILY 08/06/23 01/10/24 01/10/24 09:00 History 1,000 mcg tablet (Vitamin B-12) tramadol 50 mg tablet 50 mg PO DAILY PRN Pain 08/06/23 01/10/24 Unknown History blood-glucose meter (OneTouch 01/07/24 Unknown History Verio Flex Start kit) albuterol sulfate 90 mcg/actuation 1 puff inhalation QID 01/10/24 01/10/24 01/10/24 09:00 History aerosol inhaler atorvastatin 40 mg tablet (Lipitor) 40 mg PO BEDTIME 01/10/24 01/10/24 01/10/24 09:00 History dexlansoprazole 60 mg 60 mg PO DAILY@0630 01/10/24 01/10/24 01/10/24 07:00 History capsule,biphase delayed release (Dexilant) diclofenac sodium 1 % topical gel 4 g topical QID PRN Pain 01/10/24 01/10/24 Unknown History (Arthritis Pain (diclofenac)) docusate sodium 100 mg capsule 100 mg PO BID PRN Constipation 01/10/24 01/10/24 Unknown History montelukast 10 mg tablet 10 mg PO BEDTIME 01/10/24 01/10/24 Unknown History (Topherir) zolpidem 5 mg tablet 5 mg PO BEDTIME PRN insomnia 01/10/24 01/10/24 Unknown History Physical Exam 2 Vital Signs and Narrative: Vital Signs: Last Vital Signs Temp 97.7 F 01/10/24 12:43 Pulse 118 H 01/10/24 12:43 Resp 12 01/10/24 12:43 BP 153/101 H 01/10/24 12:43 Pulse Ox 92 01/10/24 12:43 O2 Del Method Room Air 01/10/24 12:43 BMI result Body Mass Index 31.2 Const: General: cooperative, comfortable, alert and awake Nutritional Appearance: average body habitus Orientation/consciousness: patient oriented x3 Resp: Effort & Inspection: normal respiratory effort, able to speak in complete sentences, no respiratory distress and no use of accessory muscles A uscultation: clear to auscultation bilaterally Cardio: Rate: tachycardic GI: Inspection: No distended Palpation (GI): Soft to palpation and nontender Neuro: General: patient oriented x3, moves all extremities and CN's II-XI intact bilaterally Extrem: Other: trace b/l leg edema Results Labs 01/10/24 09:58 01/10/24 09:58 Labs: Laboratory Results - last 24 hr 01/10/24 01/10/24 09:23 09:58 MCV 91.9 MCH 30.6 MCHC 33.3 RDW 13.9 Plt Count 221 MPV 11.3 Immature Gran % (Auto) 0.3 Neut % (Auto) 60.8 Lymph % (Auto) 25.1 [place] % (Auto) 11.2 H Eos % (Auto) 2.0 Baso % (Auto) 0.6 Lymph # (Auto) 1.8 [place] # (Auto) 0.8 Eos # (Auto) 0.1 Baso # (Auto) 0.0 Abs Immat Gran (auto) 0.02 Absolute Neuts (auto) 4.2 Absolute Nucleated RBC 0.000 Nucleated RBC % (auto) 0.0 Anion Gap 13 Estim Creat Clear Calc 37.7 Estimated GFR 56 Random Glucose 175 H Calcium 10.0 Magnesium 1.8 Total Bilirubin 1.2 H Direct Bilirubin 0.4 AST 20 ALT 18 Alkaline Phosphatase 116 Troponin I High Sens 5.5 D B-Natriuretic Peptide 693 H Total Protein 7.1 Albumin 4.1 Urine Color Yellow Urine Appearance Clear Urine pH 7.0 Ur Specific [place] <= 1.005 Urine Protein Negative Urine Glucose (UA) Negative Urine Ketones Negative Urine Blood Negative Urine Nitrite Negative Ur Leukocyte Esterase Trace H Urine RBC 0-2 Urine WBC 0-5 Ur Squamous Epith Cells 0-2 Urine Bacteria None Seen Hyaline Casts 0-2 Influenza Type A (PCR) NEGATIVE Influenza Type B (PCR) NEGATIVE RSV RNA Qual (PCR) NEGATIVE SARS-CoV-2 RNA (RT-PCR) NEGATIVE Imaging Radiologist's Impressions: Impressions Chest X-Ray 01/10/24 09:36 IMPRESSION: 1. Slight blunting of the bilateral costophrenic recesses which may reflect trace pleural effusion. 2. Bibasilar radiopacities suggesting atelectasis. 3. Radiopacity in the region of the right hilum which may be accentuation of the central vasculature/summation artifact though lymphadenopathy is not excluded. Assessment and Plan (1) CHF (congestive heart failure): Qualifiers: Heart failure chronicity: acute on chronic Heart failure type: systolic Qualified Code(s): I50.23 - Acute on chronic systolic (congestive) heart failure Status: Acute (2) Paroxysmal atrial fibrillation: Status: Acute Plan This is an 88-year-old female with history of paroxysmal atrial fibrillation on Eliquis, HFpEF, anxiety, hypertension, diabetes, CKD 3, osteoporosis, GERD, polyneuropathy, COPD who presents to the emergency department with shortness of breath found to have atrial fibrillation with rapid ventricular response and acute CHF exacerbation Atrial fibrillation with rapid ventricular response Received 25 mg oral Lopressor in the emergency department Heart rate remains variable, will treat with lopressor 25 mg q8h for now, titrate up as indicated Continue anticoagulation with Eliquis Acute on chronic HFpEF BNP 693, up from baseline and chest x-ray suggestive of pulmonary edema. No hypoxia Echocardiogram from 11/20/2023 showing preserved ejection fraction continue IV lasix Low-sodium diet Monitor volume status closely Anxiety/mood disorder Continue home medications Diabetes SSI, POCs, ADA diet CKD3 Kidney function at baseline Chronic anemia H/H above transfusion threshold COPD No acute exacerbation Continue baseline medication, prn breathing treatments DVT prophylaxis- mechanical devices, Eliquis Code status-full code Patient will likely require 2 midnight stay in the hospital for management of uncontrolled atrial fibrillation as well as CHF requiring IV diuretics and close cardiac monitoring Quality Stroke Does the patient have a stroke diagnosis?: No VTE Prior VTE?: No VTE Risk Level:: Medical - moderate - high VTE Device Contraindication: N/A - Device Ordered VTE Drug Contraindication: N/A - Med Ordered
--- NOTE | 2024-01-10 16:24 | PC.NURSE ---
With patient permission daughter updated on current condition , patient transported to room 450.
--- NOTE | 2024-01-10 16:52 | PHA.MEDREC ---
Pharmacy Consult ? Medication Reconciliation Pharmacy has completed the medication reconciliation. Pt states they were prescribed Azithromycin and Jardiance by Dr. Jacobs, but have not started them yet. Leaving off med rec.
[2024-01-10 17:17] LABS: Glucose, Whole Blood 247 mg/dL (60-115)
[2024-01-10] MEDS: Pregabalin 100 MG CAPSULE PO (17:29)
[2024-01-10] MEDS: Insulin Lispro 100 UNIT/ML 3 ML VIAL SUBCUT ×2 (17:30→20:37)
[2024-01-10] MEDS: 0.9 % Sodium Chloride Flush 3 ML SYRINGE IVFLUSH ×2 (17:30→20:38)
[2024-01-10] MEDS: traMADoL HCL 50 MG TABLET PO (20:37)
[2024-01-10] MEDS: Montelukast Sodium 10 MG TABLET PO (20:38)
[2024-01-10] MEDS: Atorvastatin Calcium 40 MG TABLET PO (20:38)
[2024-01-10] MEDS: Acetaminophen 325 MG TABLET 650 MG PO (20:38)
[2024-01-10] MEDS: Apixaban 2.5 MG TABLET PO (20:38)
[2024-01-10] MEDS: Zolpidem Tartrate 5 MG TABLET PO (20:38)
[2024-01-10 21:16] LABS: Glucose, Whole Blood 336 mg/dL (60-115)
[2024-01-11 01:35] VITALS: BP 116/62; PULSE 85
[2024-01-11] MEDS: Melatonin 3 MG TABLET 6 MG PO ×2 (01:35→20:43)
[2024-01-11] MEDS: Metoprolol Tartrate 25 MG TABLET PO ×3 (01:35→17:01)
--- NOTE | 2024-01-11 02:07 | PC.NURSE ---
At start of shift patient had ambulated to the bathroom with the [employer]. Blood pressure before ambulation was 154/68. After ambulating, pt felt dizzy and weak. Blood pressure once back in bed was 81/64. Patient quickly recovered. Shortly after denied any dizziness. Blood pressure back up to 138/85. MD Pinon notified and aware. Patient resting in bed. Bed alarm on. Call otto in reach.
[2024-01-11 03:49] VITALS: BP 143/81; PULSE 102; RESP 18; TEMP 36.5; O2SAT 96
[2024-01-11] MEDS: Omeprazole 20 MG CAPSULE.DR PO (05:09)
[2024-01-11] MEDS: Pregabalin 100 MG CAPSULE PO ×2 (05:09→17:01)
[2024-01-11 06:57] LABS: Anion Gap 14 (12-20); Blood Urea Nitrogen 24 mg/dL (9-16); Calcium 9.7 mg/dL (8.4-10.2); Carbon Dioxide 24 mmol/L (22-29); Chloride 106 mmol/L (96-108); Creatinine Clr Calc Pharmacy 33.2; Estimated Glomerular Filt Rate 48; Glucose Random 204 mg/dL (60-115); Potassium 3.8 mmol/L (3.3-5.1); Sodium 140 mmol/L (135-145)
[2024-01-11 07:09] VITALS: BP 125/63; PULSE 92; RESP 20; TEMP 36; O2SAT 95
[2024-01-11 07:43] LABS: Glucose, Whole Blood 178 mg/dL (60-115)
[2024-01-11] MEDS: lisinopriL 5 MG TABLET PO (08:42)
[2024-01-11] MEDS: Folic Acid 1 MG TABLET PO (08:42)
[2024-01-11] MEDS: Cyanocobalamin (Vitamin B-12) 1,000 MCG TABLET 1000 MCG PO (08:42)
[2024-01-11] MEDS: Ascorbic Acid 500 MG TABLET PO (08:42)
[2024-01-11] MEDS: Cholecalciferol (Vitamin D3) 25 MCG TABLET PO (08:42)
[2024-01-11] MEDS: Apixaban 2.5 MG TABLET PO ×2 (08:43→20:44)
[2024-01-11] MEDS: Insulin Lispro 100 UNIT/ML 3 ML VIAL SUBCUT ×3 (08:43→17:01)
[2024-01-11] MEDS: ALPRAZolam 0.25 MG TABLET PO (08:43)
[2024-01-11] MEDS: 0.9 % Sodium Chloride Flush 3 ML SYRINGE IVFLUSH ×2 (08:43→17:04)
--- NOTE | 2024-01-11 09:50 | MHC.CM.PN ---
IMM 01/11/24, Pt. lives alone, she does not currently have home health services, has used [facility], maybe [facility] in the past. She was in this hosp about 3 months ago and was DC to [facility] for STR. For DME, she has a rollator, and a cane. HCP is on file and confirmed, names her sister Lili. PCP confirmed, Dr. Jacobs. Pt. may need assistance with transportation home at DC. DCP: home with services. CM to follow and assist with DC plan.
[2024-01-11 10:46] VITALS: BP 130/78; PULSE 70; RESP 20; TEMP 36; O2SAT 96
[2024-01-11 11:07] LABS: Glucose, Whole Blood 190 mg/dL (60-115)
--- NOTE | 2024-01-11 11:14 | P.PNIM_ITS ---
Subjective Subjective Date of Service: 01/11/24 Interval History: Seen and examined this morning Follow-up for rapid AFib, CHF Overnight patient became dizzy with standing, blood pressure dropped This morning patient's symptoms improved, she denies shortness of breath, was able to lay flat Review of Systems Review of Systems: Yes all other systems are reviewed and are negative Constitutional Constitutional: Denies chills and Denies fever(s) Cardiovascular Cardiovascular: Denies chest pain, Denies palpitations and Denies dyspnea Respiratory Respiratory: Denies cough and Denies dyspnea Gastrointestinal Gastrointestinal: Denies abdominal pain, Denies nausea and Denies vomiting Endocrine Endocrine: Denies palpitations Physical Exam 2 Vital Signs: Vital Signs: Last Vital Signs Temp 96.8 F 01/11/24 10:46 Pulse 70 01/11/24 10:46 Resp 20 01/11/24 10:46 BP 130/78 01/11/24 10:46 Pulse Ox 96 01/11/24 10:46 O2 Del Method Nasal Cannula 01/11/24 10:46 O2 Flow Rate 2 01/11/24 10:46 BMI result Body Mass Index 31.2 Const: General: cooperative, comfortable, alert and awake Nutritional Appearance: average body habitus Orientation/consciousness: patient oriented x3 Resp: Effort & Inspection: normal respiratory effort, able to speak in complete sentences, no respiratory distress and no use of accessory muscles A uscultation: clear to auscultation bilaterally Cardio: Rate: regular rate GI: Inspection: No distended Palpation (GI): Soft to palpation and nontender Neuro: General: patient oriented x3, moves all extremities and CN's II-XI intact bilaterally Extrem: General: Yes no pedal edema Objective Data Active Medications Acetaminophen (Acetaminophen 325 Mg Tablet) 650 mg PO Q6H PRN PRN Reason: Pain, Mild (Pain Scale 1-3), fever or headache Last Admin: 01/10/24 20:38 Dose: 650 mg Documented By: SUSHMA Albuterol/Ipratropium (Albuterol/Iprat 2.5/0.5mg 3 Ml Ampul.Neb) 3 ml INHALE RQ6H PRN PRN Reason: shortness of breath/wheezing Alprazolam (Alprazolam 0.25 Mg Tablet) 0.25 mg PO DAILY JAREK Last Admin: 01/11/24 08:43 Dose: 0.25 mg Documented By: HILDA Apixaban (Apixaban 2.5 Mg Tablet) 2.5 mg PO BID [facility] Last Admin: 01/11/24 08:43 Dose: 2.5 mg Documented By: HILDA Ascorbic Acid (Ascorbic Acid 500 Mg Tablet) 500 mg PO DAILY [facility] Last Admin: 01/11/24 08:42 Dose: 500 mg Documented By: HILDA Atorvastatin Calcium (Atorvastatin Calcium 40 Mg Tablet) 40 mg PO BEDTIME [facility] Last Admin: 01/10/24 20:38 Dose: 40 mg Documented By: SUSHMA Calcium Carbonate (Calcium Carbonate 750 Mg Tab.Chew) 750 mg PO Q4H PRN PRN Reason: Heartburn Cyanocobalamin (Cyanocobalamin (Vitamin B-12) 1,000 Mcg Tablet) 1,000 mcg PO DAILY [facility] Last Admin: 01/11/24 08:42 Dose: 1,000 mcg Documented By: HILDA Docusate Sodium (Docusate Sodium 100 Mg Capsule) 100 mg PO BID PRN PRN Reason: Constipation Folic Acid (Folic Acid 1 Mg Tablet) 1 mg PO DAILY [facility] Last Admin: 01/11/24 08:42 Dose: 1 mg Documented By: HILDA Glucose (Glucose Gel 15 Gm Gel..Gram.) 15 gm PO Q15M PRN; Protocol PRN Reason: per Hypoglycemia Standing Ord. Dextrose (D10) 250 mls @ 750 mls/hr IV Q15M PRN; Protocol PRN Reason: per Hypoglycemia Standing Ord. Insulin Human Lispro (Insulin Lispro 100 Unit/Ml 3 Ml Vial) 0 unit SUBCUT QIDACHS [facility]; Protocol Last Admin: 01/11/24 08:43 Dose: 2 unit Documented By: HILDA Lisinopril (Lisinopril 5 Mg Tablet) 5 mg PO DAILY [facility]; Protocol Last Admin: 01/11/24 08:42 Dose: 5 mg Documented By: HILDA Magnesium Hydroxide (Milk Of Magnesia 30 Ml Oral.Susp) 30 ml PO DAILY PRN PRN Reason: Constipation Melatonin (Melatonin 3 Mg Tablet) 6 mg PO BEDTIME PRN PRN Reason: Insomnia Last Admin: 01/11/24 01:35 Dose: 6 mg Documented By: SUSHMA Metoprolol Tartrate (Metoprolol Tartrate 25 Mg Tablet) 25 mg PO Q8H [facility]; Protocol Last Admin: 01/11/24 08:42 Dose: 25 mg Documented By: HILDA Montelukast Sodium (Montelukast Sodium 10 Mg Tablet) 10 mg PO BEDTIME [facility] Last Admin: 01/10/24 20:38 Dose: 10 mg Documented By: SUSHMA Omeprazole (Omeprazole 20 Mg Capsule.Dr) 20 mg PO DAILY@0630 [facility] Last Admin: 01/11/24 05:09 Dose: 20 mg Documented By: SUSHMA Pregabalin (Pregabalin 100 Mg Capsule) 100 mg PO Q12H [facility] Last Admin: 01/11/24 05:09 Dose: 100 mg Documented By: SUSHMA Sodium Chloride (0.9 % Sodium Chloride Flush 3 Ml Syringe) 3 ml IVFLUSH QSHIFT [facility] Last Admin: 01/11/24 08:43 Dose: 3 ml Documented By: HILDA Tramadol HCl (Tramadol Hcl 50 Mg Tablet) 50 mg PO DAILY PRN PRN Reason: Pain, Moderate(Pain Scale 4-6) Last Admin: 01/10/24 20:37 Dose: 50 mg Documented By: SUSHMA Vitamin D (Cholecalciferol (Vitamin D3) 25 Mcg Tablet) 25 mcg PO DAILY [facility] Last Admin: 01/11/24 08:42 Dose: 25 mcg Documented By: HILDA Zolpidem Tartrate (Zolpidem Tartrate 5 Mg Tablet) 5 mg PO BEDTIME PRN PRN Reason: insomnia Last Admin: 01/10/24 20:38 Dose: 5 mg Documented By: SUSHMA Labs 01/10/24 09:58 01/11/24 05:59 Labs: Laboratory Results - last 24 hr 01/10/24 01/10/24 01/11/24 17:13 20:24 05:59 Hold Purple Top SEE NOTE Anion Gap 14 Estim Creat Clear Calc 33.2 Estimated GFR 48 POC Glucose 247 H 336 H Random Glucose 204 H Calcium 9.7 01/11/24 01/11/24 07:11 10:48 Hold Purple Top Anion Gap Estim Creat Clear Calc Estimated GFR POC Glucose 178 H 190 H Random Glucose Calcium Assessment and Plan (1) CHF (congestive heart failure): Status: Acute (2) Paroxysmal atrial fibrillation: Status: Acute Plan This is an 88-year-old female with history of paroxysmal atrial fibrillation on Eliquis, HFpEF, anxiety, hypertension, diabetes, CKD 3, osteoporosis, GERD, polyneuropathy, COPD who presents to the emergency department with shortness of breath found to have atrial fibrillation with rapid ventricular response and acute CHF exacerbation Atrial fibrillation with rapid ventricular response Received 25 mg oral Lopressor in the emergency department Heart rate remains variable, will treat with lopressor 25 mg q8h for now, can likely transition to long acting in am Continue anticoagulation with Eliquis Acute respiratory failure with hypoxia due to Acute on chronic HFpEF BNP 693, up from baseline and chest x-ray suggestive of pulmonary edema. No hypoxia Echocardiogram from 11/20/2023 showing preserved ejection fraction Received 1 dose of IV Lasix in the emergency department. We will hold further diuresis for now given orthostatic hypotension Consider resuming oral Lasix in a.m. Low-sodium diet Monitor volume status closely Orthostatic hypotension Question due to volume depletion We will hold IV diuresis Repeat orthostatic blood pressures in a.m. Anxiety/mood disorder Continue home medications Diabetes SSI, POCs, ADA diet CKD3 Kidney function at baseline Chronic anemia H/H above transfusion threshold COPD No acute exacerbation Continue baseline medication, prn breathing treatments DVT prophylaxis- mechanical devices, Eliquis Code status-full code Continue ongoing inpatient stay due to uncontrolled atrial fibrillation, orthostatic hypotension, close cardiac monitoring Quality Stroke Does the patient have a stroke diagnosis?: No VTE Prior VTE?: No VTE Risk Level:: Medical - moderate - high VTE Device Contraindication: N/A - Device Ordered VTE Drug Contraindication: N/A - Med Ordered
[2024-01-11 16:00] VITALS: BP 110/61; PULSE 78; RESP 16; TEMP 36.2; O2SAT 96
[2024-01-11 16:11] LABS: Glucose, Whole Blood 169 mg/dL (60-115)
[2024-01-11 19:32] VITALS: BP 129/58; PULSE 87; RESP 20; TEMP 36.5; O2SAT 99
[2024-01-11] MEDS: Atorvastatin Calcium 40 MG TABLET PO (20:43)
[2024-01-11] MEDS: Montelukast Sodium 10 MG TABLET PO (20:44)
[2024-01-12] VITALS (11 sets, daily range): BP systolic 101–138; BP diastolic 53–78; PULSE 62–97; RESP 18–20; TEMP 36.1–36.3; O2SAT 93–99
[2024-01-12 00:09] LABS: Glucose, Whole Blood 130 mg/dL (60-115)
[2024-01-12] MEDS: 0.9 % Sodium Chloride Flush 3 ML SYRINGE IVFLUSH ×3 (00:20→16:31)
[2024-01-12] MEDS: traMADoL HCL 50 MG TABLET PO ×2 (01:44→20:28)
[2024-01-12] MEDS: Metoprolol Tartrate 25 MG TABLET PO ×3 (02:18→16:29)
[2024-01-12] MEDS: Omeprazole 20 MG CAPSULE.DR PO (05:55)
[2024-01-12] MEDS: Pregabalin 100 MG CAPSULE PO ×2 (05:55→16:30)
[2024-01-12 07:23] LABS: Glucose, Whole Blood 169 mg/dL (60-115)
[2024-01-12 07:32] LABS: Anion Gap 12 (12-20); Blood Urea Nitrogen 31 mg/dL (9-16); Calcium 9.4 mg/dL (8.4-10.2); Carbon Dioxide 25 mmol/L (22-29); Chloride 108 mmol/L (96-108); Creatinine Clr Calc Pharmacy 34.8; Estimated Glomerular Filt Rate 51; Glucose Random 149 mg/dL (60-115); Potassium 4.2 mmol/L (3.3-5.1); Sodium 141 mmol/L (135-145)
[2024-01-12] MEDS: Cholecalciferol (Vitamin D3) 25 MCG TABLET PO (08:16)
[2024-01-12] MEDS: Insulin Lispro 100 UNIT/ML 3 ML VIAL SUBCUT ×2 (08:16→16:30)
[2024-01-12] MEDS: Folic Acid 1 MG TABLET PO (08:16)
[2024-01-12] MEDS: ALPRAZolam 0.25 MG TABLET PO (08:16)
[2024-01-12] MEDS: Apixaban 2.5 MG TABLET PO ×2 (08:16→20:13)
[2024-01-12] MEDS: lisinopriL 5 MG TABLET PO (08:16)
[2024-01-12] MEDS: Ascorbic Acid 500 MG TABLET PO (08:16)
[2024-01-12] MEDS: Cyanocobalamin (Vitamin B-12) 1,000 MCG TABLET 1000 MCG PO (08:16)
--- NOTE | 2024-01-12 10:35 | P.PNIM_ITS ---
Subjective Subjective Date of Service: 01/12/24 Interval History: Seen and examined this morning Follow-up for rapid AFib, CHF c/o nausea Review of Systems Review of Systems: Yes all other systems are reviewed and are negative Constitutional Constitutional: Denies chills and Denies fever(s) Cardiovascular Cardiovascular: Denies chest pain, Denies palpitations and Denies dyspnea Respiratory Respiratory: Denies cough and Denies dyspnea Gastrointestinal Gastrointestinal: Denies abdominal pain, Denies nausea and Denies vomiting Endocrine Endocrine: Denies palpitations Physical Exam 2 Vital Signs: Vital Signs: Last Vital Signs Temp 97.0 F 01/12/24 07:00 Pulse 97 01/12/24 09:40 Resp 18 01/12/24 07:00 BP 124/78 01/12/24 09:40 Pulse Ox 97 01/12/24 07:00 O2 Del Method Nasal Cannula 01/12/24 07:00 O2 Flow Rate 2 01/12/24 07:00 BMI result Body Mass Index 31.2 Appearing in no acute distress lung sounds are clear to auscultation heart regular rate rhythm, clear S1, S2 positive bowel sounds, abdomen is soft, nontender neuro patient is alert x3, no focal deficits Objective Data Active Medications Acetaminophen (Acetaminophen 325 Mg Tablet) 650 mg PO Q6H PRN PRN Reason: Pain, Mild (Pain Scale 1-3), fever or headache Last Admin: 01/10/24 20:38 Dose: 650 mg Documented By: SUSHMA Albuterol/Ipratropium (Albuterol/Iprat 2.5/0.5mg 3 Ml Ampul.Neb) 3 ml INHALE RQ6H PRN PRN Reason: shortness of breath/wheezing Alprazolam (Alprazolam 0.25 Mg Tablet) 0.25 mg PO DAILY [facility] Last Admin: 01/12/24 08:16 Dose: 0.25 mg Documented By: KADI Apixaban (Apixaban 2.5 Mg Tablet) 2.5 mg PO BID [facility] Last Admin: 01/12/24 08:16 Dose: 2.5 mg Documented By: KADI Ascorbic Acid (Ascorbic Acid 500 Mg Tablet) 500 mg PO DAILY [facility] Last Admin: 01/12/24 08:16 Dose: 500 mg Documented By: KADI Atorvastatin Calcium (Atorvastatin Calcium 40 Mg Tablet) 40 mg PO BEDTIME [facility] Last Admin: 01/11/24 20:43 Dose: 40 mg Documented By: PAVEL Calcium Carbonate (Calcium Carbonate 750 Mg Tab.Chew) 750 mg PO Q4H PRN PRN Reason: Heartburn Cyanocobalamin (Cyanocobalamin (Vitamin B-12) 1,000 Mcg Tablet) 1,000 mcg PO DAILY [facility] Last Admin: 01/12/24 08:16 Dose: 1,000 mcg Documented By: KADI Docusate Sodium (Docusate Sodium 100 Mg Capsule) 100 mg PO BID PRN PRN Reason: Constipation Folic Acid (Folic Acid 1 Mg Tablet) 1 mg PO DAILY [facility] Last Admin: 01/12/24 08:16 Dose: 1 mg Documented By: KADI Glucose (Glucose Gel 15 Gm Gel..Gram.) 15 gm PO Q15M PRN; Protocol PRN Reason: per Hypoglycemia Standing Ord. Dextrose (D10) 250 mls @ 750 mls/hr IV Q15M PRN; Protocol PRN Reason: per Hypoglycemia Standing Ord. Insulin Human Lispro (Insulin Lispro 100 Unit/Ml 3 Ml Vial) 0 unit SUBCUT QIDACHS [facility]; Protocol Last Admin: 01/12/24 08:16 Dose: 2 unit Documented By: KADI Lisinopril (Lisinopril 5 Mg Tablet) 5 mg PO DAILY [facility]; Protocol Last Admin: 01/12/24 08:16 Dose: 5 mg Documented By: KADI Magnesium Hydroxide (Milk Of Magnesia 30 Ml Oral.Susp) 30 ml PO DAILY PRN PRN Reason: Constipation Melatonin (Melatonin 3 Mg Tablet) 6 mg PO BEDTIME PRN PRN Reason: Insomnia Last Admin: 01/11/24 20:43 Dose: 6 mg Documented By: PAVEL Metoprolol Tartrate (Metoprolol Tartrate 25 Mg Tablet) 25 mg PO Q8H [facility]; Protocol Last Admin: 01/12/24 08:16 Dose: 25 mg Documented By: KADI Montelukast Sodium (Montelukast Sodium 10 Mg Tablet) 10 mg PO BEDTIME [facility] Last Admin: 01/11/24 20:44 Dose: 10 mg Documented By: PAVEL Omeprazole (Omeprazole 20 Mg Capsule.) 20 mg PO DAILY@0630 [facility] Last Admin: 01/12/24 05:55 Dose: 20 mg Documented By: PAVEL Pregabalin (Pregabalin 100 Mg Capsule) 100 mg PO Q12H [facility] Last Admin: 01/12/24 05:55 Dose: 100 mg Documented By: PAVEL Sodium Chloride (0.9 % Sodium Chloride Flush 3 Ml Syringe) 3 ml IVFLUSH QSHIFT [facility] Last Admin: 01/12/24 08:20 Dose: 3 ml Documented By: KADI Tramadol HCl (Tramadol Hcl 50 Mg Tablet) 50 mg PO DAILY PRN PRN Reason: Pain, Moderate(Pain Scale 4-6) Last Admin: 01/12/24 01:44 Dose: 50 mg Documented By: PAVEL Vitamin D (Cholecalciferol (Vitamin D3) 25 Mcg Tablet) 25 mcg PO DAILY [facility] Last Admin: 01/12/24 08:16 Dose: 25 mcg Documented By: KADI Zolpidem Tartrate (Zolpidem Tartrate 5 Mg Tablet) 5 mg PO BEDTIME PRN PRN Reason: insomnia Last Admin: 01/10/24 20:38 Dose: 5 mg Documented By: MAXIMINOI Labs 01/10/24 09:58 01/12/24 06:32 Labs: Laboratory Results - last 24 hr 01/11/24 01/11/24 01/11/24 10:48 15:58 20:17 Anion Gap Estim Creat Clear Calc Estimated GFR POC Glucose 190 H 169 H 130 H Random Glucose Calcium 01/12/24 01/12/24 06:32 07:02 Anion Gap 12 Estim Creat Clear Calc 34.8 Estimated GFR 51 POC Glucose 169 H Random Glucose 149 H Calcium 9.4 Assessment and Plan (1) CHF (congestive heart failure): Status: Acute (2) Paroxysmal atrial fibrillation: Status: Acute Plan This is an 88-year-old female with history of paroxysmal atrial fibrillation on Eliquis, HFpEF, anxiety, hypertension, diabetes, CKD 3, osteoporosis, GERD, polyneuropathy, COPD who presents to the emergency department with shortness of breath found to have atrial fibrillation with rapid ventricular response and acute CHF exacerbation Abd pain and nausea abd CT showing increase in size of pancreatic cyst GI consultation Atrial fibrillation with rapid ventricular response Received 25 mg oral Lopressor in the emergency department Heart rate remains variable, will treat with lopressor 25 mg q8h for now, can likely transition to long acting in am Continue anticoagulation with Eliquis Abd pain with nausea and vomiting abd ct ordered Acute respiratory failure with hypoxia due to Acute on chronic HFpEF No hypoxia Echocardiogram from 11/20/2023 showing preserved ejection fraction hold further diuresis for now given orthostatic hypotension Low-sodium diet Monitor volume status closely Orthostatic hypotension. Resolved Question due to volume depletion hold IV diuresis, restart oral lasix Anxiety/mood disorder Continue home medications Diabetes SSI, POCs, ADA diet CKD3 Kidney function at baseline Chronic anemia H/H above transfusion threshold COPD No acute exacerbation Continue baseline medication, prn breathing treatments DVT prophylaxis- mechanical devices, Eliquis attending Dr. Tripathi Code status-full code Continue ongoing inpatient stay due to uncontrolled atrial fibrillation, orthostatic hypotension, close cardiac monitoring Quality Stroke Does the patient have a stroke diagnosis?: No VTE Prior VTE?: No VTE Risk Level:: Medical - moderate - high VTE Device Contraindication: N/A - Device Ordered VTE Drug Contraindication: N/A - Med Ordered
--- NOTE | 2024-01-12 10:56 | MHC.CM.PN ---
Per ROUNDS discussion, Patient is not yet medically cleared for dc and will benefit from a PT Eval to assist with disposition. CM will follow.
[2024-01-12 11:22] LABS: Glucose, Whole Blood 111 mg/dL (60-115)
[2024-01-12 11:24] LABS: B Type Natriuretic Peptide 422 pg/mL (<100)
--- NOTE | 2024-01-12 13:34 | MHC.CM.PN ---
IMM was addressed with Patient.
[2024-01-12 16:11] LABS: Glucose, Whole Blood 162 mg/dL (60-115)
--- NOTE | 2024-01-12 16:34 | PM.GICN ---
History of Present Illness Data of Consult Service Date: 01/12/24 Requesting physician: Deya Rios Primary Care Provider: Solange Jacobs MD [facility] Reason for consult: panc cyst This is an 88-year-old female with past medical history of obesity, GERD, type 2 diabetes, hyperlipidemia, hypertension, carotid artery disease, TIA, diverticulosis, who presented to the hospital for worsening dyspnea on exertion on 01/09 and was found to have AFib with RVR. Gastroenterology has been consulted for abnormal finding on her CT abdomen and pelvis today. Patient reports intermittent abdominal discomfort as well as chest discomfort. Notices it more when she feels anxious and her heart is racing . Having complain of poor appetite and nausea this morning for which CT abdomen and pelvis without IV contrast was ordered that shows possible interval increase of pancreatic cyst in the uncinate process up to 2.3 x 2.8 cm. Previously this has measured 2.4 x 2 cm on MRI in 2020. Currently, patient does not report any abdominal pain, nausea or vomiting. She was able to tolerate her lunch, finish a grilled cheese sandwich. Although she is on 2 L supplemental oxygen, she also does not report any shortness of breath, and is able to lay flat on my exam. Review of Systems Review of Systems: Yes all other systems are reviewed and are negative [facility] Past Medical History Medical History Hypokalemia Hypomagnesemia Diarrhea Hearing difficulty Dyspnea on exertion History of gastrointestinal diverticular hemorrhage COVID-19 virus infection Rectal bleeding Medicare annual wellness visit, initial Hip pain, left Patellar sleeve fracture of right knee Knee pain, right Nausea and vomiting Coarse tremors Shoulder pain, right Hospital discharge follow-up Mass on back Constipation Tinea corporis Nausea Right wrist pain Left knee pain Left hip pain Toe pain, left Breast cancer screening by mammogram UTI (urinary tract infection) Type 2 diabetes mellitus with hyperglycemia Obesity (BMI 30-39.9) Lipoma of lower back Urinary frequency Toe fracture, left Pancreatic cyst Osteoporosis Peptic ulcer disease Urinary incontinence Rectal incontinence GERD (gastroesophageal reflux disease) Bile salt-induced diarrhea Vaginal prolapse Renal artery stenosis Asthma Lumbar degenerative disc disease Insomnia TIA (transient ischemic attack) Hyperlipidemia, unspecified Essential hypertension Family History Family History Father Cancer Arterial thrombosis Mother Multiple sclerosis Muscular dystrophy Hypertension Depression Chronic mental illness Mental health disorder Brother No problems noted. Brother Gangrene Sister No problems noted. Son No problems noted. Son No problems noted. Son No problems noted. Son No problems noted. Daughter No problems noted. Daughter No problems noted. Daughter No problems noted. Surgical History Surgical History Hx of colonoscopy History of esophagogastroduodenoscopy (EGD) History of removal of cyst (~10/17/21) History of hemorrhoidectomy History of colectomy History of section History of hysterectomy History of appendectomy History of cholecystectomy Social History Social History Household Members: None Housing: Apartment Do you presently have visiting nurse or other home services: Yes Alcohol intake: former Patient Tobacco Use Status: Former Tobacco user Tobacco use type: Cigarette Years Smoked: 1997 quit Smoked in Last 30 Days: No e-Cigarette/Vaping Use: Former Use Patient Interested in Nicotine Replacement: No Second Hand Smoke Exposure: No Use of substances other than those prescribed or required for medical reasons: No Currently Displaying Signs/Symptoms of Drug Intoxication Withdrawal: No Have you been hit, kicked, punched, or otherwise hurt by someone within the past year? If so, by whom?: No Do you feel safe in your current relationship?: No Are you made to feel afraid or neglected: No Spiritual Healthcare Practices: advent Advance Directives: Yes Advance Directives on File: Yes Advance Directives Date on File: 08/06/23 Do you have a plan to hurt others: No Plan Recently lost weight without trying: No Patient : No : No Poor oral hygiene: No service: Yes Current occupational status: disabled Current occupational exposures/hazards: No Cognitive needs: Yes Hearing needs: Yes Vision needs: Yes Meds Allergies Allergy/AdvReac Type Severity Reaction Status Date / Time ciprofloxacin Allergy Severe unknown Verified 01/10/24 09:20 aspirin [Aspirin] Allergy Unknown UNKNOWN Verified 01/10/24 09:20 cefuroxime Allergy Unknown Unknown Verified 01/10/24 09:20 celecoxib [From Celebrex] Allergy Unknown UNKNOWN Verified 01/10/24 09:20 metformin Allergy Unknown diarrhea Verified 01/10/24 09:20 risedronate sodium Allergy Unknown UNKNOWN Verified 01/10/24 09:20 [From Actonel] Sulfa (Sulfonamide Allergy Unknown unknown Verified 01/10/24 09:20 Antibiotics) bupropion AdvReac Intermediate tremor Verified 01/10/24 09:20 ferrous sulfate AdvReac Intermediate tremors Verified 01/10/24 09:20 sertraline AdvReac Intermediate tremors Verified 01/10/24 09:20 Active Medications: Current Medications Acetaminophen (Acetaminophen 325 Mg Tablet) 650 mg PO Q6H PRN PRN Reason: Pain, Mild (Pain Scale 1-3), fever or headache Last Admin: 01/10/24 20:38 Dose: 650 mg Albuterol/Ipratropium (Albuterol/Iprat 2.5/0.5mg 3 Ml Ampul.Neb) 3 ml INHALE RQ6H PRN PRN Reason: shortness of breath/wheezing Alprazolam (Alprazolam 0.25 Mg Tablet) 0.25 mg PO DAILY [facility] Last Admin: 01/12/24 08:16 Dose: 0.25 mg Apixaban (Apixaban 2.5 Mg Tablet) 2.5 mg PO BID [facility] Last Admin: 01/12/24 08:16 Dose: 2.5 mg Ascorbic Acid (Ascorbic Acid 500 Mg Tablet) 500 mg PO DAILY [facility] Last Admin: 01/12/24 08:16 Dose: 500 mg Atorvastatin Calcium (Atorvastatin Calcium 40 Mg Tablet) 40 mg PO BEDTIME [facility] Last Admin: 01/11/24 20:43 Dose: 40 mg Calcium Carbonate (Calcium Carbonate 750 Mg Tab.Chew) 750 mg PO Q4H PRN PRN Reason: Heartburn Cyanocobalamin (Cyanocobalamin (Vitamin B-12) 1,000 Mcg Tablet) 1,000 mcg PO DAILY [facility] Last Admin: 01/12/24 08:16 Dose: 1,000 mcg Docusate Sodium (Docusate Sodium 100 Mg Capsule) 100 mg PO BID PRN PRN Reason: Constipation Folic Acid (Folic Acid 1 Mg Tablet) 1 mg PO DAILY [facility] Last Admin: 01/12/24 08:16 Dose: 1 mg Furosemide (Furosemide 40 Mg Tablet) 40 mg PO DAILY [facility]; Protocol Glucose (Glucose Gel 15 Gm Gel..Gram.) 15 gm PO Q15M PRN; Protocol PRN Reason: per Hypoglycemia Standing Ord. Dextrose (D10) 250 mls @ 750 mls/hr IV Q15M PRN; Protocol PRN Reason: per Hypoglycemia Standing Ord. Insulin Human Lispro (Insulin Lispro 100 Unit/Ml 3 Ml Vial) 0 unit SUBCUT QIDACHS [facility]; Protocol Last Admin: 01/12/24 11:28 Dose: Not Given Lisinopril (Lisinopril 5 Mg Tablet) 5 mg PO DAILY [facility]; Protocol Last Admin: 01/12/24 08:16 Dose: 5 mg Magnesium Hydroxide (Milk Of Magnesia 30 Ml Oral.Susp) 30 ml PO DAILY PRN PRN Reason: Constipation Melatonin (Melatonin 3 Mg Tablet) 6 mg PO BEDTIME PRN PRN Reason: Insomnia Last Admin: 01/11/24 20:43 Dose: 6 mg Metoprolol Tartrate (Metoprolol Tartrate 25 Mg Tablet) 25 mg PO Q8H [facility]; Protocol Last Admin: 01/12/24 08:16 Dose: 25 mg Montelukast Sodium (Montelukast Sodium 10 Mg Tablet) 10 mg PO BEDTIME [facility] Last Admin: 01/11/24 20:44 Dose: 10 mg Omeprazole (Omeprazole 20 Mg Capsule.Dr) 20 mg PO DAILY@0630 [facility] Last Admin: 01/12/24 05:55 Dose: 20 mg Ondansetron HCl (Ondansetron Hcl 4 Mg/2 Ml Vial) 4 mg IVPUSH Q6H PRN PRN Reason: Nausea and Vomiting Pregabalin (Pregabalin 100 Mg Capsule) 100 mg PO Q12H [facility] Last Admin: 01/12/24 05:55 Dose: 100 mg Sodium Chloride (0.9 % Sodium Chloride Flush 3 Ml Syringe) 3 ml IVFLUSH QSHIFT [facility] Last Admin: 01/12/24 08:20 Dose: 3 ml Tramadol HCl (Tramadol Hcl 50 Mg Tablet) 50 mg PO DAILY PRN PRN Reason: Pain, Moderate(Pain Scale 4-6) Last Admin: 01/12/24 01:44 Dose: 50 mg Vitamin D (Cholecalciferol (Vitamin D3) 25 Mcg Tablet) 25 mcg PO DAILY [facility] Last Admin: 01/12/24 08:16 Dose: 25 mcg Zolpidem Tartrate (Zolpidem Tartrate 5 Mg Tablet) 5 mg PO BEDTIME PRN PRN Reason: insomnia Last Admin: 01/10/24 20:38 Dose: 5 mg Home Medications ?Medication ?Instructions ?Recorded ?Confirmed ?Last Taken ?Type cholecalciferol (vitamin D3) 25 25 mcg PO DAILY 08/26/22 01/10/24 01/10/24 09:00 History mcg (1,000 unit) capsule cyanocobalamin (vitamin B-12) 1,000 mcg PO DAILY 08/06/23 01/10/24 01/10/24 09:00 History 1,000 mcg tablet (Vitamin B-12) tramadol 50 mg tablet 50 mg PO DAILY PRN Pain 08/06/23 01/10/24 Unknown History blood-glucose meter (OneTouch 01/07/24 Unknown History kaufDA Flex Start kit) albuterol sulfate 90 mcg/actuation 1 puff inhalation QID 01/10/24 01/10/24 01/10/24 09:00 History aerosol inhaler atorvastatin 40 mg tablet (Lipitor) 40 mg PO BEDTIME 01/10/24 01/10/24 01/10/24 09:00 History dexlansoprazole 60 mg 60 mg PO DAILY@0630 01/10/24 01/10/24 01/10/24 07:00 History capsule,biphase delayed release (Dexilant) diclofenac sodium 1 % topical gel 4 g topical QID PRN Pain 01/10/24 01/10/24 Unknown History (Arthritis Pain (diclofenac)) docusate sodium 100 mg capsule 100 mg PO BID PRN Constipation 01/10/24 01/10/24 Unknown History montelukast 10 mg tablet 10 mg PO BEDTIME 01/10/24 01/10/24 Unknown History (Singulair) zolpidem 5 mg tablet 5 mg PO BEDTIME PRN insomnia 01/10/24 01/10/24 Unknown History Physical Exam Vital Signs: Vital Signs: Last Vital Signs Temp 97.3 F 01/12/24 15:13 Pulse 85 01/12/24 15:13 Resp 18 01/12/24 15:13 BP 116/70 01/12/24 15:13 Pulse Ox 97 01/12/24 15:13 O2 Del Method Nasal Cannula 01/12/24 15:13 O2 Flow Rate 2 01/12/24 15:13 BMI result Body Mass Index 31.2 Elderly female No acute distress Nonicteric Abdomen soft, nontender, nondistended Mild lower extremity edema Results Labs 01/10/24 09:58 01/12/24 06:32 Labs: BMP 01/12/24 06:32 Sodium 141 Potassium 4.2 Chloride 108 Carbon Dioxide 25 BUN 31 H Creatinine 1.03 Calcium 9.4 Assessment and Plan (1) Pancreatic cyst: Status: Acute (2) CHF (congestive heart failure): Qualifiers: Heart failure chronicity: acute on chronic Heart failure type: systolic Qualified Code(s): I50.23 - Acute on chronic systolic (congestive) heart failure Status: Acute (3) Acute hypoxemic respiratory failure: Status: Acute Plan Nausea and vomiting appears to have self-limiting. Was able to finish her lunch without any difficulty. Currently does not endorse any abdominal pain, or nausea. In terms of her pancreatic cyst, this previously did not have any red flags on MRI 2020. On current noncontrast case CT scan, difficult to certain if it is truly increase in size or not. Recommend MRI with and without contrast (pancreas protocol) - patient able to lay flat on my exam today, but this can be done as outpatient if pt not able to tolerate this due to shortness of breath. Thank you for allowing me to participate in her care. Please not hesitate to reach out for any questions or concerns. Procedures Date of Service Date of Service: 01/12/24
[2024-01-12] MEDS: Atorvastatin Calcium 40 MG TABLET PO (20:13)
[2024-01-12] MEDS: Montelukast Sodium 10 MG TABLET PO (20:13)
[2024-01-12] MEDS: Melatonin 3 MG TABLET 6 MG PO (20:28)
[2024-01-12 20:49] LABS: Glucose, Whole Blood 130 mg/dL (60-115)
[2024-01-13] VITALS (7 sets, daily range): BP systolic 113–133; BP diastolic 59–71; PULSE 78–94; RESP 18–20; TEMP 36.3–36.6; O2SAT 92–98; BMI 30.8
[2024-01-13] MEDS: Metoprolol Tartrate 25 MG TABLET PO ×2 (00:20→08:55)
[2024-01-13] MEDS: Morphine Sulfate 2 MG/ML CARTRIDGE IVPUSH (00:22)
[2024-01-13] MEDS: 0.9 % Sodium Chloride Flush 3 ML SYRINGE IVFLUSH ×2 (00:22→08:56)
[2024-01-13] MEDS: Pregabalin 100 MG CAPSULE PO (06:01)
[2024-01-13] MEDS: Omeprazole 20 MG CAPSULE.DR PO (06:01)
[2024-01-13 07:56] LABS: Glucose, Whole Blood 163 mg/dL (60-115)
[2024-01-13] MEDS: Insulin Lispro 100 UNIT/ML 3 ML VIAL SUBCUT ×2 (08:54→11:50)
[2024-01-13] MEDS: Cyanocobalamin (Vitamin B-12) 1,000 MCG TABLET 1000 MCG PO (08:55)
[2024-01-13] MEDS: ALPRAZolam 0.25 MG TABLET PO (08:55)
[2024-01-13] MEDS: Cholecalciferol (Vitamin D3) 25 MCG TABLET PO (08:55)
[2024-01-13] MEDS: Folic Acid 1 MG TABLET PO (08:55)
[2024-01-13] MEDS: Furosemide 40 MG TABLET PO (08:55)
[2024-01-13] MEDS: Apixaban 2.5 MG TABLET PO (08:55)
[2024-01-13] MEDS: Ascorbic Acid 500 MG TABLET PO (08:55)
[2024-01-13] MEDS: lisinopriL 5 MG TABLET PO (08:56)
[2024-01-13 11:22] LABS: Glucose, Whole Blood 152 mg/dL (60-115)
--- NOTE | 2024-01-13 11:52 | MHC.CM.PN ---
Per ORGAN RECOVERY COORDINATOR, Patient is medically cleared for dc to SNF/STR today. Patient's first choice SNF([facility] was not able to accommodate Patient; her second choice facility ([facility]) will accept Patient today at 3PM, via [facility]. CM attempted to reach Sister/HCP/Lili @ [phone] but there was no opportunity to leave a message.
--- NOTE | 2024-01-13 14:05 | P.DS_ITS ---
DS: Providers Provider Date of Service: 01/13/24 Date of admission: 01/10/24 13:04 Primary care physician: Solange Jacobs MD Consults: 01/12/24 13:49 Consult to Gastroenterology Routine Consulting Provider: Misty Rivera Reason for consultation: nausea or vomiting, pancreatic cyst DS: Diagnosis Discharge Diagnosis (1) Pancreatic cyst: Status: Acute (2) CHF (congestive heart failure): Status: Acute (3) Acute hypoxemic respiratory failure: Status: Acute DS: Summary Hospital Course Hospital Course: HP as per admitting provider. This is an 88-year-old female who presents to the emergency department with shortness of breath. Patient reports several weeks increasing shortness of breath which is worse with exertion. She denies any associated cough or fever. She denies any recent sick contacts. She feels that her lower extremities have been more swollen than usual. She also reports intermittent dizziness and more anxiety than usual over the past several days which prompted her to come to the emergency department today. Workup revealed elevated BNP as well as chest x-ray which was consistent with CHF. She received IV Lasix as well as breathing treatment and Solu-Medrol for underlying asthma/COPD. She was also noted to be in atrial fibrillation with rapid ventricular response. She does report that she took her daily medications this morning as prescribed. She denies any palpitations or chest pain. She will be admitted for further management of acute CHF exacerbation and atrial fibrillatio n with rapid ventricular response. 88 year old women admitted with with acute respiratory failure with hypoxia secondary to acute on chronic heart failure with preserved ejection fraction. BNP as high as 693, initially treated with IV Lasix but developed orthostatic hypotension so Lasix was stopped. She had an echocardiogram on 11/20/2023 showing a preserved ejection fraction. Her oral Lasix was resumed yesterday and she has been on a low-sodium diet. Her BNP Was down to 422 and clinically patient seems euvolemic. She also had some abdominal pain and vomiting, abdominal CT showed a pancreatic cyst that the patient already knew she had. She was seen by Gastroenterology with recommendation for outpatient MRI. Patient should follow up with her primary care provider for referral for this. Anxiety. Continue alprazolam Diabetes mellitus type 2.Diet controlled CKD stage 3. Kidney function at baseline Chronic anemia. H&H above transfusion COPD. No exacerbation. Continue home medications Less than 30 day stay Time Attestation Discharge Coordination Time (in mins): 40 Quality: Safe Use of Opioids Does Pt have an Active Cancer Diagnosis on the Problem List?: No Quality: Stroke Does the patient have a stroke diagnosis?: No Physical Exam Vital Signs: Vital Signs: Last Vital Signs Temp 97.8 F 01/13/24 11:55 Pulse 78 01/13/24 11:55 Resp 18 01/13/24 11:55 BP 113/71 01/13/24 11:55 Pulse Ox 98 01/13/24 11:55 O2 Del Method Nasal Cannula 01/13/24 11:55 O2 Flow Rate 1 01/13/24 11:55 BMI result Body Mass Index 30.8 Appearing in no acute distress head is normocephalic atraumatic eyes pupils are PERRLA sclera is anicteric mouth throat mucous membranes are intact and moist neck is supple no lymphadenopathy, no JVD noted lung sounds are clear to auscultation heart regular rate rhythm, clear S1, S2 positive bowel sounds, abdomen is soft, nontender neuro patient is alert x3, no focal deficits DS: Data Data Completed and Pending Labs on day of discharge: Laboratory Results - last 24 hr 01/12/24 01/12/24 01/13/24 15:58 20:38 07:46 POC Glucose 162 H 130 H 163 H 01/13/24 11:13 POC Glucose 152 H Discharge Plan Discharge Anticipated Discharge Date/Time: 01/13/24 13:38 Patient Disposition: Xfer SNF Discharge Diagnosis: Atrial fibrillation with rapid ventricular response Abdominal pain with nausea and vomiting Acute respiratory failure with hypoxia Acute on chronic heart failure with preserved ejection fraction Orthostatic hypotension Anxiety Referrals: [facility] [place] [Outside] - 1 Week Po,Solange Giles MD [Primary Care Provider] - 1 Week Discharge Medications: Continued (DME) pediatric front wheel walker See Rx Instructions .Route .MEDSUPPLY Qty: 1 0RF Rx Instructions: As directed Eliquis 2.5 mg tablet 2.5 mg PO BID Qty: 180 3RF lisinopril 5 mg tablet 5 mg PO DAILY Qty: 90 3RF alprazolam 0.25 mg tablet 0.25 mg PO DAILY 30 Days Qty: 30 0RF (DME) lancets [FreeStyle Lancets] 28 gauge misc See Rx Instructions .ROUTE .MEDSUPPLY Qty: 100 3RF Rx Instructions: use to test sugar once a day metoprolol succinate 50 mg tablet extended release 24 hr 50 mg PO DAILY 90 Days Qty: 90 2RF furosemide 40 mg tablet 40 mg PO DAILY Qty: 90 2RF pregabalin 100 mg capsule 100 mg PO Q12H 30 Days Qty: 60 2RF folic acid 1 mg tablet 1 mg PO DAILY Qty: 90 2RF (DME) blood-glucose meter [[employer] Verio Flex Start] Kit See Rx Instructions .Route Rx Instructions: Test twice a day ascorbic acid (vitamin C) [Vitamin C] 500 mg tablet 500 mg PO DAILY Qty: 90 1RF tramadol 50 mg tablet 50 mg PO DAILY PRN (Reason: Pain) cyanocobalamin (vitamin B-12) [Vitamin B-12] 1,000 mcg Tablet 1,000 mcg PO DAILY zolpidem 5 mg tablet 5 mg PO BEDTIME PRN (Reason: insomnia) diclofenac sodium [Arthritis Pain (diclofenac)] 1 % gel 4 g topical QID PRN (Reason: Pain) Rx Instructions: apply to single knee, ankle, foot; for foot includes sole/toes/top of foot docusate sodium 100 mg Capsule 100 mg PO BID PRN (Reason: Constipation) albuterol sulfate 90 mcg/actuation Hfa Aerosol Inhaler 1 puff INHALATION QID montelukast [Singulair] 10 mg tablet 10 mg PO BEDTIME dexlansoprazole [Dexilant] 60 mg capsule,biphase delayed releas 60 mg PO DAILY@0630 atorvastatin [Lipitor] 40 mg tablet 40 mg PO BEDTIME (DME) PEDIATRIC FRONT WHEELED WALKER See Rx Instructions .Route .MEDSUPPLY Qty: 1 0RF Rx Instructions: As directed cholecalciferol (vitamin D3) 25 mcg (1,000 unit) capsule 25 mcg PO DAILY Discharge Orders: Discharge Order (Routine); Ordered 01/13/24 Ordered By: Deya Rios Diet: Advance to usual diet Activity on Discharge: As tolerated Stand Alone Forms: Patient Portal Discharge page Print Language: Slovak Care Plan Goals: Follow-up with primary care provider for MRI (with and without contrast pancreas protocol) referral for pancreatic cyst as per gastroenterology Health Concerns: Atrial fibrillation with rapid ventricular response Abdominal pain with nausea and vomiting Acute respiratory failure with hypoxia Acute on chronic heart failure with preserved ejection fraction Orthostatic hypotension Anxiety Plan of Treatment: Follow-up with primary care provider as needed Take all medications as prescribed Assessment: See discharge summary Discharge Date/Time: 01/13/24 15:06
[2024-01-13] MEDS: traMADoL HCL 50 MG TABLET PO (14:44)
== END 2024-01-13 15:06 | disposition skilled nursing facility (03) | DRG 291 ==
LOC: HO.ED 12:32 → HO.EDOVER 13:16 → HO.IMC 15:17
PROVIDERS: Admitting Provider Physician Assistant Medical; Emergency Provider Emergency Medicine; PCP Internal Medicine; Visit Provider Nurse Practitioner Acute Care
DX: I13.0 Hypertensive heart and chronic kidney disease with heart failure and stage 1 through stage 4 chronic kidney disease, or unspecified chronic kidney disease (principal); I50.33 Acute on chronic diastolic (congestive) heart failure; J96.01 Acute respiratory failure with hypoxia; K86.2 Cyst of pancreas; J44.9 Chronic obstructive pulmonary disease, unspecified; F41.9 Anxiety disorder, unspecified; D63.1 Anemia in chronic kidney disease; I95.1 Orthostatic hypotension; N18.30 Chronic kidney disease, stage 3 unspecified; E11.22 Type 2 diabetes mellitus with diabetic chronic kidney disease; E11.42 Type 2 diabetes mellitus with diabetic polyneuropathy; I48.0 Paroxysmal atrial fibrillation; Z20.822 Contact with and (suspected) exposure to COVID-19; Z87.891 Personal history of nicotine dependence; Z79.01 Long term (current) use of anticoagulants; Z79.899 Other long term (current) drug therapy
CPT/HCPCS: 0241U; 36415; 71045; 74176; 80048; 80076; 81001; 82947; 83735; 83880; 84484; 85025; 93005; 94640; 97162; 99285; J1940; J2270; J2919

== ENCOUNTER → 2024-01-10 09:28 | Outpatient (BNV) | payer MEDICARE, OTHER, SELFPAY | PROVIDERS: Admitting Provider Physician Assistant Medical; Emergency Provider Emergency Medicine; PCP Internal Medicine; Visit Provider Internal Medicine Cardiovascular Disease | DX: R00.0 Tachycardia, unspecified (principal); R94.31 Abnormal electrocardiogram [ECG] [EKG] | CPT/HCPCS: 93010 ==

== ENCOUNTER → 2024-01-10 13:04 | Outpatient (BNV) | payer MEDICARE, OTHER, SELFPAY | PROVIDERS: Admitting Provider Physician Assistant Medical; Emergency Provider Emergency Medicine; PCP Internal Medicine; Visit Provider Internal Medicine | DX: K86.2 Cyst of pancreas (principal); I50.23 Acute on chronic systolic (congestive) heart failure; J96.01 Acute respiratory failure with hypoxia | CPT/HCPCS: 99222 ==

== ENCOUNTER → 2024-01-10 13:04 | Outpatient (BNV) | payer MEDICARE, OTHER, SELFPAY | PROVIDERS: Admitting Provider Physician Assistant Medical; Emergency Provider Emergency Medicine; PCP Internal Medicine; Visit Provider Physician Assistant Medical | DX: K86.2 Cyst of pancreas (principal); I50.23 Acute on chronic systolic (congestive) heart failure; J96.01 Acute respiratory failure with hypoxia | CPT/HCPCS: 99223; 99232; 99233; 99239 ==

== ENCOUNTER 2024-01-15 16:07 | Inpatient (IN) | payer MEDICARE, OTHER, SELFPAY ==
--- NOTE | ~2024-01-15 | CT_ITS ---
EXAMINATION: CT ABDOMEN AND PELVIS WITHOUT CONTRAST CLINICAL INFORMATION: Abdominal pain. Nausea and vomiting. COMPARISON: 01/12/2024 TECHNIQUE: Multidetector volumetric imaging was performed from the superior aspect of the liver through the pubic symphysis. Sagittal and coronal reformatted images were obtained on the technologist's workstation. This CT examination was performed using dose optimization techniques as appropriate, variously including the following: *Automated exposure control *Adjustment of mA and/or kV according to patient size (this includes techniques or standardized protocols for targeted exams where dose is matched to indication/reason for exam; i.e. extremities or head) *Use of iterative reconstruction technique DLP: 922 mGy-cm FINDINGS: LUNG BASES: Small pericardial effusion. LIVER, GALLBLADDER, AND BILIARY TREE: The noncontrast liver is normal in size and contour. Few hypodensities are incompletely characterized. No biliary ductal dilatation is present. The gallbladder is normal. Visualized.. PANCREAS: Atrophic. Cystic lesion arising from the uncinate process measuring 2.3 x 2.9 x 2.8 cm. SPLEEN: Unremarkable. ADRENAL GLANDS: Nodular thickening of the left adrenal gland. KIDNEYS AND URETERS: The kidneys are symmetric in size. There are bilateral hypodensities that are incompletely characterized due to the lack of intravenous contrast. BLADDER: Unremarkable. GASTROINTESTINAL TRACT: Small hiatal hernia. Diffuse colonic diverticulosis. There is diverticular disease of the small bowel with focal inflammation in the midabdomen best seen on image 30 of series 10. ABDOMINAL WALL: Tiny fat-containing umbilical hernia. LYMPH NODES: No bulky lymphadenopathy. VASCULAR: Severe atherosclerotic vascular calcification. No abdominal aortic aneurysm. PELVIC VISCERA: Uterus is surgically absent. OSSEOUS STRUCTURES: No destructive bone lesions. Severe multilevel degenerative disc disease. CT/CT abdomen pelvis wo IV con IMPRESSION: Acute diverticulitis of the small bowel. Cystic lesion arising from the uncinate process measuring 2.3 x 2.9 x 2.8 cm. Follow-up MRI/MRCP may be considered.
--- NOTE | ~2024-01-15 | XR_ITS ---
EXAMINATION: XR CHEST CLINICAL INFORMATION: Hypoxia. COMPARISON: 01/10/2024 TECHNIQUE: Frontal view of the chest was obtained. FINDINGS: The lungs are well expanded. Diffuse interstitial edema. Stable prominence of the right hilum. No pleural effusion. Cardiac silhouette is unchanged. XR/XR chest 1V IMPRESSION: Diffuse interstitial edema.
[2024-01-15 16:23] VITALS: BP 149/90; BP 152/68; PULSE 124; PULSE 80; RESP 18; O2SAT 94; O2SAT 95; BMI 32.4
--- NOTE | 2024-01-15 16:24 | ECG_ITS ---
Test Reason : sob Blood Pressure : / mmHG Vent. Rate : 106 BPM Atrial Rate : 000 BPM P-R Int : 000 ms QRS Dur : 086 ms QT Int : 348 ms P-R-T Axes : 000 -18 080 degrees QTc Int : 462 ms Atrial fibrillation with rapid ventricular response Possible Anterior infarct , age undetermined Abnormal ECG When compared with ECG of 15-JAN-2024 22:43, Borderline criteria for Anterior infarct are now Present Nonspecific T wave abnormality, improved in Inferior leads Referred By: Rehana Figueroa Electronically Signed By:CANDELARIO COOK
--- NOTE | 2024-01-15 16:30 | ED.NAVMDI ---
HPI - Nausea/Vomiting/Diarrhea General Chief complaint: Nausea/Vomiting/Diarrhea Stated complaint: nausea,vomiting,dizzy Time Seen by Provider: 01/15/24 16:23 Source: patient Mode of arrival: EMS Limitations: no limitations History of Present Illness ED Provider: sathya TAVERAS Narrative: Patient is 88 years old with multiple comorbid conditions including with history of heart failure with preserved ejection fraction anxiety, diabetes, CKD stage 3, COPD, chronic anemia AFib on Eliquis and metoprolol just discharged on 01/12 for acute exacerbation of CHF comes back with nausea vomiting since discharge to care home no significant abdominal pain no urinary complaints no fever or chills Related Data Home Medications ?Medication ?Instructions ?Recorded ?Confirmed cholecalciferol (vitamin D3) 25 25 mcg PO DAILY 08/26/22 01/10/24 mcg (1,000 unit) capsule cyanocobalamin (vitamin B-12) 1,000 mcg PO DAILY 08/06/23 01/10/24 1,000 mcg tablet (Vitamin B-12) tramadol 50 mg tablet 50 mg PO DAILY PRN Pain 08/06/23 01/10/24 blood-glucose meter (OneTouch 01/07/24 Verio Flex Start kit) albuterol sulfate 90 mcg/actuation 1 puff inhalation QID 01/10/24 01/10/24 aerosol inhaler atorvastatin 40 mg tablet (Lipitor) 40 mg PO BEDTIME 01/10/24 01/10/24 dexlansoprazole 60 mg 60 mg PO DAILY@0630 01/10/24 01/10/24 capsule,biphase delayed release (Dexilant) diclofenac sodium 1 % topical gel 4 g topical QID PRN Pain 01/10/24 01/10/24 (Arthritis Pain (diclofenac)) docusate sodium 100 mg capsule 100 mg PO BID PRN Constipation 01/10/24 01/10/24 montelukast 10 mg tablet 10 mg PO BEDTIME 01/10/24 01/10/24 (Singulair) zolpidem 5 mg tablet 5 mg PO BEDTIME PRN insomnia 01/10/24 01/10/24 Previous Rx's ?Medication ?Instructions ?Recorded pediatric front wheel walker #1 ea 09/02/23 PEDIATRIC FRONT WHEELED WALKER #1 ea 09/18/23 apixaban 2.5 mg tablet (Eliquis) 2.5 mg PO BID #180 tabs 09/22/23 lisinopril 5 mg tablet 5 mg PO DAILY #90 tabs 09/22/23 alprazolam 0.25 mg tablet 0.25 mg PO DAILY anxiety 30 days 11/17/23 #30 tabs lancets 28 gauge (FreeStyle #100 ea 11/17/23 Lancets) furosemide 40 mg tablet 40 mg PO DAILY #90 tabs 12/19/23 metoprolol succinate 50 mg 50 mg PO DAILY 90 days #90 tabs 12/19/23 tablet,extended release 24 hr pregabalin 100 mg capsule 100 mg PO Q12H 30 days #60 caps 12/19/23 folic acid 1 mg tablet 1 mg PO DAILY #90 tabs 01/02/24 ascorbic acid (vitamin C) 500 mg 500 mg PO DAILY #90 tabs 01/09/24 tablet (Vitamin C) Allergies Allergy/AdvReac Type Severity Reaction Status Date / Time ciprofloxacin Allergy Severe unknown Verified 01/15/24 16:25 aspirin [Aspirin] Allergy Unknown UNKNOWN Verified 01/15/24 16:25 cefuroxime Allergy Unknown Unknown Verified 01/15/24 16:25 celecoxib [From Celebrex] Allergy Unknown UNKNOWN Verified 01/15/24 16:25 metformin Allergy Unknown diarrhea Verified 01/15/24 16:25 risedronate sodium Allergy Unknown UNKNOWN Verified 01/15/24 16:25 [From Actonel] Sulfa (Sulfonamide Allergy Unknown unknown Verified 01/15/24 16:25 Antibiotics) bupropion AdvReac Intermediate tremor Verified 01/15/24 16:25 ferrous sulfate AdvReac Intermediate tremors Verified 01/15/24 16:25 sertraline AdvReac Intermediate tremors Verified 01/15/24 16:25 Review of Systems Review of Systems: Yes all other systems are reviewed and are negative [facility] Past Medical History Medical History Hypokalemia Hypomagnesemia Diarrhea Hearing difficulty Dyspnea on exertion History of gastrointestinal diverticular hemorrhage COVID-19 virus infection Rectal bleeding Medicare annual wellness visit, initial Hip pain, left Patellar sleeve fracture of right knee Knee pain, right Nausea and vomiting Coarse tremors Shoulder pain, right Hospital discharge follow-up Mass on back Constipation Tinea corporis Nausea Right wrist pain Left knee pain Left hip pain Toe pain, left Breast cancer screening by mammogram UTI (urinary tract infection) Type 2 diabetes mellitus with hyperglycemia Obesity (BMI 30-39.9) Lipoma of lower back Urinary frequency Toe fracture, left Pancreatic cyst Osteoporosis Peptic ulcer disease Urinary incontinence Rectal incontinence GERD (gastroesophageal reflux disease) Bile salt-induced diarrhea Vaginal prolapse Renal artery stenosis Asthma Lumbar degenerative disc disease Insomnia TIA (transient ischemic attack) Hyperlipidemia, unspecified Essential hypertension Surgical History Hx of colonoscopy History of esophagogastroduodenoscopy (EGD) History of removal of cyst (~10/17/21) History of hemorrhoidectomy History of colectomy History of section History of hysterectomy History of appendectomy History of cholecystectomy Family History Family History Father Cancer Arterial thrombosis Mother Multiple sclerosis Muscular dystrophy Hypertension Depression Chronic mental illness Mental health disorder Brother No problems noted. Brother Gangrene Sister No problems noted. Son No problems noted. Son No problems noted. Son No problems noted. Son No problems noted. Daughter No problems noted. Daughter No problems noted. Daughter No problems noted. Social History Social History Household Members: None Housing: Apartment Do you presently have visiting nurse or other home services: Yes Alcohol intake: former Patient Tobacco Use Status: Former Tobacco user Tobacco use type: Cigarette Years Smoked: 1996 quit Smoked in Last 30 Days: No e-Cigarette/Vaping Use: Former Use Second Hand Smoke Exposure: No Use of substances other than those prescribed or required for medical reasons: No Advance Directives: Yes Advance Directives on File: Yes Advance Directives Date on File: 08/06/23 Do you have a plan to hurt others: No Plan service: Yes Current occupational status: disabled Current occupational exposures/hazards: No Cognitive needs: Yes Hearing needs: Yes Vision needs: Yes Physical Exam Vital Signs: Vital Signs: Last Vital Signs Temp 98.5 F 01/15/24 22:00 Pulse 112 H 01/15/24 22:00 Resp 20 01/15/24 22:00 BP 168/79 H 01/15/24 22:00 Pulse Ox 92 01/15/24 22:00 O2 Del Method Room Air 01/15/24 22:00 BMI result Body Mass Index 32.4 Appearance: Alert. Oriented X3. No acute distress. Eyes: PERRLA, No Nystagmus ENT: Pharynx normal. Oral Mucosa moist Neck: Normal inspection. Neck supple. CVS: Normal heart rate and rhythm. Pulses normal. Respiratory: No respiratory distress. Equal air entry bilateral, no wheezing/rales/rhonchi Abdomen: Soft and nontender. Bowel sounds are present, no mass palpable, no CVA tenderness Skin: Skin warm and dry. Normal skin color. Normal skin turgor. Extremities: No lower extremity edema. No calf tenderness Neuro: Oriented X 3. No motor deficit. No sensory deficit.No cerebellar signs , cranial nerves II-XII intact Medications Administered Discontinued Medications Generic Name Dose Route Start Last Admin Trade Name Chavaq PRN Reason Stop Dose Admin Sodium Chloride 500 mls @ 250 mls/hr 01/15/24 17:00 01/15/24 20:00 Ns IVCONT 01/15/24 18:59 Infused .Q2H JAREK Infusion Lorazepam 0.5 mg 01/15/24 18:23 01/15/24 18:36 Lorazepam 2 Mg/Ml Vial IVPUSH 01/15/24 18:24 0.5 mg ONCE ONE Administration Ondansetron HCl 4 mg 01/15/24 16:53 01/15/24 17:43 Ondansetron Hcl 4 Mg/2 Ml Vial IVPUSH 01/15/24 16:54 4 mg ONCE ONE Administration Medical Decision Making Medical Decision Making [facility] Narrative: Patient with nausea vomiting for last 3 days vomiting about 2 to 3 times a day feel nauseated patient's seems to be anxious on arrival labs are stable patient feeling much better after giving lorazepam will discharge back to nursing labs are stable patient is able to take p.o. fluids in the ER 2100 patient is started acting strange increased confusion sundowning syndrome does not understand why she she can not go home off her own. Will call her daughter to figure it out about whether she has this kind of problem in the past or not likely patient has dementia Differential Diagnosis Differential Diagnoses: The differential diagnosis associated with the presentation includes Admission/Observation Consideration of admission/observation: Escalation of care including admission/observation considered Lab Data [facility] Lab Attestation statement: I reviewed the patient's lab results. 01/15/24 16:51 08/15/24 16:51 Labs: Lab Results 01/15/24 01/15/24 01/15/24 Range/Units 16:51 17:09 17:21 WBC 11.1 H (4.8-10.8) X10*3/uL RBC 4.24 (4.20-5.50) X10*6/uL Hgb 12.8 (12.0-16.0) g/dl Hct 38.4 (37.0-47.0) % MCV 90.6 (80.0-98.0) fL MCH 30.2 (27.0-33.0) pg MCHC 33.3 (31.0-35.0) g/dl RDW 14.4 (11.0-16.0) % Plt Count 234 (160-400) X10*3/uL MPV 11.9 (9.4-12.3) fL Immature Gran % (Auto) 0.5 H (0.0-0.4) % Neut % (Auto) 90.1 H (45-73) % Lymph % (Auto) 6.7 L (20-40) % Graves % (Auto) 2.4 (2-11) % Eos % (Auto) 0.1 (0-4) % Baso % (Auto) 0.2 (0-2) % Lymph # (Auto) 0.7 L (1.2-4.9) X10*3/uL Graves # (Auto) 0.3 (0.1-1.2) X10*3/uL Eos # (Auto) 0.0 (0.0-0.4) X10*3/uL Baso # (Auto) 0.0 (0.0-0.2) X10*3/uL Abs Immat Gran (auto) 0.05 H (0.00-0.03) X10*3/uL Absolute Neuts (auto) 10.0 H (2.0-8.3) x10*3/uL Absolute Nucleated RBC 0.000 (0.0-0.012) X10*3/uL Nucleated RBC % (auto) 0.0 (0.0-0.2) /100WBC Smear Tech's Comments VERIFIED Sodium 142 (135-145) mmol/L Potassium 3.7 (3.3-5.1) mmol/L Chloride 107 (96-108) mmol/L Carbon Dioxide 26 (22-29) mmol/L Anion Gap 13 (12-20) BUN 19 H (9-16) mg/dL Creatinine 0.88 (0.5-1.4) mg/dL Estim Creat Clear Calc 36.4 Estimated GFR > 60 Random Glucose 242 H (60-115) mg/dL Calcium 10.5 H D (8.4-10.2) mg/dL Magnesium 1.7 (1.6-2.6) mg/dL Total Bilirubin 1.7 H (0.0-1.0) mg/dL Direct Bilirubin 0.6 H (0.0-0.5) mg/dL AST 21 (5-31) U/L ALT 25 (0-31) U/L Alkaline Phosphatase 105 (39-117) U/L Troponin I High Sens 3.4 (<3.5-17.0) ng/L Total Protein 7.3 (6.5-8.0) g/dL Albumin 4.1 (3.5-5.0) g/dL Urine Color Yellow Urine Appearance Clear Urine pH 7.0 (5.0-9.0) Ur Specific [place] 1.010 (1.005-1.025) Urine Protein Negative (Neg-Trace) mg/dL Urine Glucose (UA) Negative (Negative) mg/dL Urine Ketones Negative (Negative) mg/dL Urine Blood Negative (Negative) Urine Nitrite Negative (Negative) Ur Leukocyte Esterase Negative (Negative) COVID-19 (GIO) Negative (Negative) COVID-19 Clin Com See Note Discharge Plan Discharge Clinical Impression: Nausea, vomiting and diarrhea Prescriptions: No Action (DME) pediatric front wheel walker See Rx Instructions .Route .MEDSUPPLY Qty: 1 0RF Rx Instructions: As directed Eliquis 2.5 mg tablet 2.5 mg PO BID Qty: 180 3RF lisinopril 5 mg tablet 5 mg PO DAILY Qty: 90 3RF alprazolam 0.25 mg tablet 0.25 mg PO DAILY 30 Days Qty: 30 0RF (DME) lancets [FreeStyle Lancets] 28 gauge misc See Rx Instructions .ROUTE .MEDSUPPLY Qty: 100 3RF Rx Instructions: use to test sugar once a day metoprolol succinate 50 mg tablet extended release 24 hr 50 mg PO DAILY 90 Days Qty: 90 2RF furosemide 40 mg tablet 40 mg PO DAILY Qty: 90 2RF pregabalin 100 mg capsule 100 mg PO Q12H 30 Days Qty: 60 2RF folic acid 1 mg tablet 1 mg PO DAILY Qty: 90 2RF (DME) blood-glucose meter [[employer] Verio Flex Start] Kit See Rx Instructions .Route Rx Instructions: Test twice a day ascorbic acid (vitamin C) [Vitamin C] 500 mg tablet 500 mg PO DAILY Qty: 90 1RF tramadol 50 mg tablet 50 mg PO DAILY PRN (Reason: Pain) cyanocobalamin (vitamin B-12) [Vitamin B-12] 1,000 mcg Tablet 1,000 mcg PO DAILY zolpidem 5 mg tablet 5 mg PO BEDTIME PRN (Reason: insomnia) diclofenac sodium [Arthritis Pain (diclofenac)] 1 % gel 4 g topical QID PRN (Reason: Pain) Rx Instructions: apply to single knee, ankle, foot; for foot includes sole/toes/top of foot docusate sodium 100 mg Capsule 100 mg PO BID PRN (Reason: Constipation) albuterol sulfate 90 mcg/actuation Hfa Aerosol Inhaler 1 puff INHALATION QID montelukast [Singulair] 10 mg tablet 10 mg PO BEDTIME dexlansoprazole [Dexilant] 60 mg capsule,biphase delayed releas 60 mg PO DAILY@0630 atorvastatin [Lipitor] 40 mg tablet 40 mg PO BEDTIME (DME) PEDIATRIC FRONT WHEELED WALKER See Rx Instructions .Route .MEDSUPPLY Qty: 1 0RF Rx Instructions: As directed cholecalciferol (vitamin D3) 25 mcg (1,000 unit) capsule 25 mcg PO DAILY Print Language: Spanish
[2024-01-15 17:05] LABS: Basophils Percent Auto 0.2 % (0-2); Eosinophils Percent Auto 0.1 % (0-4); Hematocrit 38.4 % (37.0-47.0); Hemoglobin 12.8 g/dl (12.0-16.0); Imm Gran Abs Auto 0.05 X10*3/uL (0.00-0.03); Imm Gran Pct Auto 0.5 % (0.0-0.4); Lymphocytes Absolute Auto 0.7 X10*3/uL (1.2-4.9); Lymphocytes Percent Auto 6.7 % (20-40); MANUAL DIFF FLAG SCAN; Mean Corpuscular HGB Conc 33.3 g/dl (31.0-35.0); Mean Corpuscular Hemoglobin 30.2 pg (27.0-33.0); Mean Corpuscular Volume 90.6 fL (80.0-98.0); Mean Platelet Volume 11.9 fL (9.4-12.3); Monocytes Absolute Auto 0.3 X10*3/uL (0.1-1.2); Monocytes Percent Auto 2.4 % (2-11); Neutrophils Percent Auto 90.1 % (45-73); Platelet Count 234 X10*3/uL (160-400); Red Blood Count 4.24 X10*6/uL (4.20-5.50); Red Cell Distribution Width 14.4 % (11.0-16.0); SCAN SMEAR FLAG 1; White Blood Count 11.1 X10*3/uL (4.8-10.8)
--- NOTE | 2024-01-15 17:12 | MHC.EDTECH ---
pt unable to sit still for ekg. states she is too anxious
[2024-01-15 17:14] LABS: Alanine Aminotransferase 25 U/L (0-31); Albumin Level 4.1 g/dL (3.5-5.0); Alkaline Phosphatase 105 U/L (39-117); Anion Gap 13 (12-20); Aspartate Amino Transferase 21 U/L (5-31); Bilirubin Direct 0.6 mg/dL (0.0-0.5); Bilirubin Total 1.7 mg/dL (0.0-1.0); Blood Urea Nitrogen 19 mg/dL (9-16); Calcium 10.5 mg/dL (8.4-10.2); Carbon Dioxide 26 mmol/L (22-29); Chloride 107 mmol/L (96-108); Creatinine Clr Calc Pharmacy 36.4; Estimated Glomerular Filt Rate > 60; Glucose Random 242 mg/dL (60-115); Magnesium 1.7 mg/dL (1.6-2.6); Potassium 3.7 mmol/L (3.3-5.1); Sodium 142 mmol/L (135-145); Total Protein 7.3 g/dL (6.5-8.0)
[2024-01-15 17:21] LABS: Troponin-I High Sensitivity 3.4 ng/L (<3.5-17.0)
[2024-01-15 17:32] LABS: Appearance Urine Clear; Color Urine Yellow; Glucose Urine UA Negative (Negative); Leukocyte Esterase Urine Negative (Negative); Nitrite Urine Negative (Negative); Urine Blood Negative (Negative); Urine Ketones Negative (Negative); Urine Protein Negative (Neg-Trace)
[2024-01-15 17:34] LABS: COVID-19 Test Negative (Negative); IDNOW Serial# 08D9AD1C
[2024-01-15 17:40] LABS: SLIDE REVIEW VERIFIED
[2024-01-15] MEDS: ondansetron HCL 4 MG/2 ML VIAL IVPUSH (17:43)
[2024-01-15] MEDS: 0.9 % Sodium Chloride 500 ML 250 ML IVCONT (17:43)
--- NOTE | 2024-01-15 17:55 | PC.NURSE ---
Patient unable to tolerate laying down, states she becomes dizzy and will throw up. Seated on edge of bed.
[2024-01-15 18:00] VITALS: BP 142/90; PULSE 111; RESP 20; TEMP 36.9; O2SAT 98
[2024-01-15] MEDS: LORazepam 2 MG/ML VIAL 0.5 MG IVPUSH (18:36)
--- NOTE | 2024-01-15 19:40 | PC.NURSE ---
This securities underwriter assumed care of this Pt at 1900. Pt A&Ox3, Pt denies any pain. One assist to bedside commode.
[2024-01-15 20:00] VITALS: BP 143/82; PULSE 116; RESP 19; TEMP 36.8; O2SAT 98
--- NOTE | 2024-01-15 21:22 | ECG_ITS ---
Test Reason : TACHYCARDIA Blood Pressure : / mmHG Vent. Rate : 115 BPM Atrial Rate : 000 BPM P-R Int : 000 ms QRS Dur : 094 ms QT Int : 334 ms P-R-T Axes : 000 000 009 degrees QTc Int : 462 ms Atrial fibrillation with rapid ventricular response Nonspecific T wave abnormality Abnormal ECG When compared with ECG of 10-JAN-2024 09:35, Criteria for Septal infarct are no longer Present Nonspecific T wave abnormality, worse in Inferior leads Referred By: Kanu Herbert Electronically Signed By:CANDELARIO COOK
--- NOTE | 2024-01-15 21:47 | PC.NURSE ---
Pt very fixated on making a phone call, states I am not going back to rehab, they did not feed me or check my sugar, or gave me my shot in my belly, you are lying to me, call the police , Pt dressed self, attempting to ambulated out of hospital, unsteady, furniture surfing, holding on to two staff, Pt not redirectable at this time. Security at bedside. Pt moved closer to nursing station. Phone called made to sister Sylvia who states she is coming in. Pt sitting on edge of bed.
[2024-01-15 22:00] VITALS: BP 168/79; PULSE 112; RESP 20; TEMP 36.9; O2SAT 92
--- NOTE | 2024-01-15 22:32 | PC.NURSE ---
Deya MARTINEZ from case management at bedside speaking with Pt and sister. Pt and sister do not wish for Pt to go back to [facility]. Dr. Ricardo updated on plan.
--- NOTE | 2024-01-15 22:35 | MHC.CM.ED ---
Addendum entered by Latoya Palacio 01/15/24 23:00: 14 referrals placed with Sharm[facility] Christiansen as first choice. Pt resting comfortably in hospital bed in Bed 22. Original Note: CM met with patient at request of primary RN and provider. Pt arrived by ambulance from [facility]. Complaint was nausea. Pt was very agitated. Wanted to call her sister. Was refusing to return to facility. Sister/HCP Lili ([phone]) was called and spoke with patient. Lili came to the emergency room. Pt was immediately calmer. Pt's sister told CM that she did not want her sister to return to that facility. Both patient and sister felt the care was very poor. Pt is very unsteady on her feet and was furniture/staff walking. Pt did sit down with encouragement. Pt understands that she needs rehab, as she lives alone and cannot live with her sister. Pt is agreeable to overnight stay in ED, with local referrals and STR placement hopefully tomorrow. CM will place local referrals. PT from 01/[address] Herbert agreeable with this plan. HCP on file. PCP is Dr. Jacobs. Pt has QS, as she was hospitalized from 01/09-01/12.
[2024-01-16] VITALS (16 sets, daily range): BP systolic 119–159; BP diastolic 60–108; PULSE 105–147; RESP 16–22; TEMP 36.4–36.8; O2SAT 85–96; BMI 33.0
--- NOTE | 2024-01-16 02:11 | PC.NURSE ---
Pt awake, requesting PO anxiety medication. Provider made aware.
[2024-01-16] MEDS: ALPRAZolam 0.25 MG TABLET PO ×2 (02:21→14:02)
--- NOTE | 2024-01-16 04:17 | PC.NURSE ---
Pt requesting to make phone call to get picked up, to be brought back home . Pt redirected. Pt anxious, states the medicine is not working, I need to lay down on the floor how I do at home . Pt ambulated around ED with two assist and walker around ED. Provider made aware, new verbal order given.
[2024-01-16] MEDS: OLANZapine 10 MG TABLET PO (04:33)
--- NOTE | 2024-01-16 06:25 | PC.NURSE ---
Pt restless, attempting to get OOB, Pt unsteady. Upon vitals O2 noted to be 98% on RA, Pt refused O2 via NC.
--- NOTE | 2024-01-16 06:34 | PC.NURSE ---
Pt redirected and given towels to fold.
--- NOTE | 2024-01-16 07:05 | PHA.MEDREC ---
Pharmacy Consult ? Medication Reconciliation Pharmacy has REVIEWED the medication reconciliation completed by nursing. Utilized discharge packet from 01/13/24.
[2024-01-16] MEDS: Morphine Sulfate 4 MG/ML CARTRIDGE IVPUSH (07:08)
--- NOTE | 2024-01-16 07:10 | PC.NURSE ---
pt observed this AM to be much more restless, uncomfortable,reports continued abd pain, nausea, vomiting was minimal overnight but pt refused water or food. Pt HR 120-130s on monitor afib. SPo2 86% and was placed on 3L NC. Pt BP 159/86. temp 98.2F oral. EILEEN beyer made aware of pt change in status since yesterday.
[2024-01-16] MEDS: Metoprolol Tartrate 5 MG/5 ML VIAL IVPUSH ×2 (07:29→14:02)
[2024-01-16] MEDS: ondansetron HCL 4 MG/2 ML VIAL IVPUSH (07:30)
--- NOTE | 2024-01-16 09:06 | MHC.CM.ED ---
Patient remains in ER. Received notification from Rehana ARELLANO that patient will be admitted to the hospital. Continue to monitor for d/c needs.
[2024-01-16 09:22] LABS: Basophils Percent Auto 0.3 % (0-2); Eosinophils Percent Auto 0.3 % (0-4); Hematocrit 39.2 % (37.0-47.0); Hemoglobin 12.8 g/dl (12.0-16.0); Imm Gran Abs Auto 0.06 X10*3/uL (0.00-0.03); Imm Gran Pct Auto 0.5 % (0.0-0.4); Lymphocytes Absolute Auto 1.7 X10*3/uL (1.2-4.9); Lymphocytes Percent Auto 12.5 % (20-40); MANUAL DIFF FLAG SCAN; Mean Corpuscular HGB Conc 32.7 g/dl (31.0-35.0); Mean Platelet Volume 11.6 fL (9.4-12.3); Monocytes Absolute Auto 1.5 X10*3/uL (0.1-1.2); Monocytes Percent Auto 11.6 % (2-11); Neutrophils Absolute Auto 9.9 x10*3/uL (2.0-8.3); Neutrophils Percent Auto 74.8 % (45-73); Platelet Count 246 X10*3/uL (160-400); Red Blood Count 4.26 X10*6/uL (4.20-5.50); Red Cell Distribution Width 14.6 % (11.0-16.0); SCAN SMEAR FLAG 1; White Blood Count 13.2 X10*3/uL (4.8-10.8)
[2024-01-16 09:46] LABS: SLIDE REVIEW VERIFIED
[2024-01-16 09:54] LABS: Alanine Aminotransferase 25 U/L (0-31); Albumin Level 3.9 g/dL (3.5-5.0); Alkaline Phosphatase 99 U/L (39-117); Anion Gap 13 (12-20); Aspartate Amino Transferase 22 U/L (5-31); Bilirubin Direct 0.8 mg/dL (0.0-0.5); Bilirubin Total 2.4 mg/dL (0.0-1.0); Blood Urea Nitrogen 17 mg/dL (9-16); Calcium 10.3 mg/dL (8.4-10.2); Carbon Dioxide 28 mmol/L (22-29); Chloride 108 mmol/L (96-108); Creatinine Clr Calc Pharmacy 36.4; Estimated Glomerular Filt Rate > 60; Glucose Random 169 mg/dL (60-115); Magnesium 1.7 mg/dL (1.6-2.6); Potassium 3.5 mmol/L (3.3-5.1); Sodium 145 mmol/L (135-145); Total Protein 6.9 g/dL (6.5-8.0)
[2024-01-16] MEDS: Furosemide 40 MG/4 ML VIAL IVPUSH ×2 (09:57→21:02)
[2024-01-16 09:59] LABS: B Type Natriuretic Peptide 771 pg/mL (<100)
[2024-01-16 10:01] LABS: Troponin-I High Sensitivity 6.7 ng/L (<3.5-17.0)
[2024-01-16 10:33] LABS: Lactic Acid 1.8 mmol/L (0.5-2.0)
[2024-01-16] MEDS: Piperacillin Sodium/Tazobactam 3.375 GM in 0.9 % Sodium Chloride 50 ML IV (10:51)
--- NOTE | 2024-01-16 10:55 | PM.IMHP ---
History of Present Illness Date of Service: 01/16/24 Chief Complaint: n/v 88F PMH pafib, hfpef, anxiety, htn, dm, ckd III, gerd, copd, presented with nausea and vomiting for 3 days. Patient was discharged 01/13/2024 after hospitalization for AFib with RVR and CHF. She returned to ED 01/15/2024 with nausea and vomiting inability to tolerate p.o.. Denied fever or chills. During course in ER patient became delirious, agitated, thrashing, difficult to redirect. Ended up going into AFib with RVR, becoming hypoxic. CT abdomen pelvis did show small bowel diverticulitis. Review of Systems Review of Systems: Yes all other systems are reviewed and are negative [facility] Medical History Hypokalemia Hypomagnesemia Diarrhea Hearing difficulty Dyspnea on exertion History of gastrointestinal diverticular hemorrhage COVID-19 virus infection Rectal bleeding Medicare annual wellness visit, initial Hip pain, left Patellar sleeve fracture of right knee Knee pain, right Nausea and vomiting Coarse tremors Shoulder pain, right Hospital discharge follow-up Mass on back Constipation Tinea corporis Nausea Right wrist pain Left knee pain Left hip pain Toe pain, left Breast cancer screening by mammogram UTI (urinary tract infection) Type 2 diabetes mellitus with hyperglycemia Obesity (BMI 30-39.9) Lipoma of lower back Urinary frequency Toe fracture, left Pancreatic cyst Osteoporosis Peptic ulcer disease Urinary incontinence Rectal incontinence GERD (gastroesophageal reflux disease) Bile salt-induced diarrhea Vaginal prolapse Renal artery stenosis Asthma Lumbar degenerative disc disease Insomnia TIA (transient ischemic attack) Hyperlipidemia, unspecified Essential hypertension Family History Father Cancer Arterial thrombosis Mother Multiple sclerosis Muscular dystrophy Hypertension Depression Chronic mental illness Mental health disorder Brother No problems noted. Brother Gangrene Sister No problems noted. Son No problems noted. Son No problems noted. Son No problems noted. Son No problems noted. Daughter No problems noted. Daughter No problems noted. Daughter No problems noted. Surgical History Hx of colonoscopy History of esophagogastroduodenoscopy (EGD) History of removal of cyst (~10/17/21) History of hemorrhoidectomy History of colectomy History of section History of hysterectomy History of appendectomy History of cholecystectomy Social History Household Members: None Housing: Apartment Do you presently have visiting nurse or other home services: Yes Alcohol intake: former Patient Tobacco Use Status: Former Tobacco user Tobacco use type: Cigarette Years Smoked: 1996 quit Smoked in Last 30 Days: No e-Cigarette/Vaping Use: Former Use Second Hand Smoke Exposure: No Use of substances other than those prescribed or required for medical reasons: No Advance Directives: Yes Advance Directives on File: Yes Advance Directives Date on File: 08/06/23 Do you have a plan to hurt others: No Plan service: Yes Current occupational status: disabled Current occupational exposures/hazards: No Cognitive needs: Yes Hearing needs: Yes Vision needs: Yes Meds Allergies Allergy/AdvReac Type Severity Reaction Status Date / Time ciprofloxacin Allergy Severe unknown Verified 01/15/24 16:25 aspirin [Aspirin] Allergy Unknown UNKNOWN Verified 01/15/24 16:25 cefuroxime Allergy Unknown Unknown Verified 01/15/24 16:25 celecoxib [From Celebrex] Allergy Unknown UNKNOWN Verified 01/15/24 16:25 metformin Allergy Unknown diarrhea Verified 01/15/24 16:25 risedronate sodium Allergy Unknown UNKNOWN Verified 01/15/24 16:25 [From Actonel] Sulfa (Sulfonamide Allergy Unknown unknown Verified 01/15/24 16:25 Antibiotics) bupropion AdvReac Intermediate tremor Verified 01/15/24 16:25 ferrous sulfate AdvReac Intermediate tremors Verified 01/15/24 16:25 sertraline AdvReac Intermediate tremors Verified 01/15/24 16:25 Active Medications: Current Medications Acetaminophen (Acetaminophen 325 Mg Tablet) 650 mg PO Q6H PRN PRN Reason: Pain, Mild (Pain Scale 1-3), fever or headache Alprazolam (Alprazolam 0.25 Mg Tablet) 0.25 mg PO DAILY [facility] Last Admin: 01/16/24 08:45 Dose: Not Given Apixaban (Apixaban 2.5 Mg Tablet) 2.5 mg PO BID [facility] Last Admin: 01/16/24 08:44 Dose: Not Given Ascorbic Acid (Ascorbic Acid 500 Mg Tablet) 500 mg PO DAILY [facility] Last Admin: 01/16/24 08:44 Dose: Not Given Atorvastatin Calcium (Atorvastatin Calcium 40 Mg Tablet) 40 mg PO BEDTIME JAREK Cyanocobalamin (Cyanocobalamin (Vitamin B-12) 1,000 Mcg Tablet) 1,000 mcg PO DAILY [facility] Last Admin: 01/16/24 08:44 Dose: Not Given Docusate Sodium (Docusate Sodium 100 Mg Capsule) 100 mg PO BID PRN PRN Reason: Constipation Folic Acid (Folic Acid 1 Mg Tablet) 1 mg PO DAILY [facility] Last Admin: 01/16/24 08:44 Dose: Not Given Furosemide (Furosemide 40 Mg/4 Ml Vial) 40 mg IVPUSH BID@0900,1800 [facility]; Protocol Ampicillin Sodium/Sulbactam (Sodium 1.5 gm/ Sodium Chloride) 100 mls @ 200 mls/hr IV Q6H [facility] Metoprolol Succinate (Metoprolol Succinate Er 50 Mg Tab.Er.24h) 50 mg PO DAILY [facility]; Protocol Last Admin: 01/16/24 08:44 Dose: Not Given Montelukast Sodium (Montelukast Sodium 10 Mg Tablet) 10 mg PO BEDTIME [facility] Omeprazole (Omeprazole 40 Mg Capsule.Dr) 40 mg PO DAILY@0630 [facility] Last Admin: 01/16/24 08:42 Dose: Not Given Pregabalin (Pregabalin 100 Mg Capsule) 100 mg PO Q12H [facility] Last Admin: 01/16/24 08:42 Dose: Not Given Quetiapine Fumarate (Quetiapine Fumarate 25 Mg Tablet) 25 mg PO BID PRN PRN Reason: agitation Sodium Chloride (0.9 % Sodium Chloride Flush 3 Ml Syringe) [address] [facility] Vitamin D (Cholecalciferol (Vitamin D3) 25 Mcg Tablet) 25 mcg PO DAILY [facility] Last Admin: 01/16/24 08:44 Dose: Not Given Home Medications ?Medication ?Instructions ?Recorded ?Confirmed ?Last Taken ?Type cholecalciferol (vitamin D3) 25 25 mcg PO DAILY 08/26/22 01/16/24 01/10/24 09:00 History mcg (1,000 unit) capsule cyanocobalamin (vitamin B-12) 1,000 mcg PO DAILY 08/06/23 01/16/24 01/10/24 09:00 History 1,000 mcg tablet (Vitamin B-12) tramadol 50 mg tablet 50 mg PO DAILY PRN Pain 08/06/23 01/16/24 Unknown History blood-glucose meter (OneTouch 01/07/24 Unknown History Verio Flex Start kit) albuterol sulfate 90 mcg/actuation 1 puff inhalation QID 01/10/24 01/16/24 01/10/24 09:00 History aerosol inhaler atorvastatin 40 mg tablet (Lipitor) 40 mg PO BEDTIME 01/10/24 01/16/24 01/10/24 09:00 History dexlansoprazole 60 mg 60 mg PO DAILY@0630 01/10/24 01/16/24 01/10/24 07:00 History capsule,biphase delayed release (Dexilant) diclofenac sodium 1 % topical gel 4 g topical QID PRN Pain 01/10/24 01/16/24 Unknown History (Arthritis Pain (diclofenac)) docusate sodium 100 mg capsule 100 mg PO BID PRN Constipation 01/10/24 01/16/24 Unknown History montelukast 10 mg tablet 10 mg PO BEDTIME 01/10/24 01/16/24 Unknown History (Singulair) zolpidem 5 mg tablet 5 mg PO BEDTIME PRN insomnia 01/10/24 01/16/24 Unknown History Physical Exam Vital Signs and Narrative: Vital Signs: Last Vital Signs Temp 98.2 F 01/16/24 07:16 Pulse 124 H 01/16/24 07:16 Resp 18 01/16/24 07:16 BP 131/75 01/16/24 09:57 Pulse Ox 93 01/16/24 07:16 O2 Del Method Nasal Cannula 01/16/24 07:16 O2 Flow Rate 3 01/16/24 07:16 BMI result Body Mass Index 32.4 alert, confused, agitated, lungs dminished, no edema Results Labs 01/16/24 09:15 01/16/24 09:15 Labs: Laboratory Results - last 24 hr 01/15/24 01/15/24 01/15/24 16:51 17:09 17:21 MCV 90.6 MCH 30.2 MCHC 33.3 RDW 14.4 Plt Count 234 MPV 11.9 Immature Gran % (Auto) 0.5 H Neut % (Auto) 90.1 H Lymph % (Auto) 6.7 L Rooks % (Auto) 2.4 Eos % (Auto) 0.1 Baso % (Auto) 0.2 Lymph # (Auto) 0.7 L Rooks # (Auto) 0.3 Eos # (Auto) 0.0 Baso # (Auto) 0.0 Abs Immat Gran (auto) 0.05 H Absolute Neuts (auto) 10.0 H Absolute Nucleated RBC 0.000 Nucleated RBC % (auto) 0.0 Smear Tech's Comments VERIFIED Anion Gap 13 Estim Creat Clear Calc 36.4 Estimated GFR > 60 Random Glucose 242 H Lactic Acid Calcium 10.5 H D Magnesium 1.7 Total Bilirubin 1.7 H Direct Bilirubin 0.6 H AST 21 ALT 25 Alkaline Phosphatase 105 Troponin I High Sens 3.4 B-Natriuretic Peptide Total Protein 7.3 Albumin 4.1 Urine Color Yellow Urine Appearance Clear Urine pH 7.0 Ur Specific [employer] [place] 1.010 Urine Protein Negative Urine Glucose (UA) Negative Urine Ketones Negative Urine Blood Negative Urine Nitrite Negative Ur Leukocyte Esterase Negative COVID-19 (GIO) Negative COVID-19 Clin Com See Note 01/16/24 01/16/24 09:15 10:13 MCV 92.0 MCH 30.0 MCHC 32.7 RDW 14.6 Plt Count 246 MPV 11.6 Immature Gran % (Auto) 0.5 H Neut % (Auto) 74.8 H Lymph % (Auto) 12.5 L Rooks % (Auto) 11.6 H Eos % (Auto) 0.3 Baso % (Auto) 0.3 Lymph # (Auto) 1.7 Rooks # (Auto) 1.5 H Eos # (Auto) 0.0 Baso # (Auto) 0.0 Abs Immat Gran (auto) 0.06 H Absolute Neuts (auto) 9.9 H Absolute Nucleated RBC 0.000 Nucleated RBC % (auto) 0.0 Smear Tech's Comments VERIFIED Anion Gap 13 Estim Creat Clear Calc 36.4 Estimated GFR > 60 Random Glucose 169 H Lactic Acid 1.8 Calcium 10.3 H Magnesium 1.7 Total Bilirubin 2.4 H Direct Bilirubin 0.8 H AST 22 ALT 25 Alkaline Phosphatase 99 Troponin I High Sens 6.7 D B-Natriuretic Peptide 771 H Total Protein 6.9 Albumin 3.9 Urine Color Urine Appearance Urine pH Ur Specific [employer] [place] Urine Protein Urine Glucose (UA) Urine Ketones Urine Blood Urine Nitrite Ur Leukocyte Esterase COVID-19 (GIO) COVID-19 Clin Com Imaging Radiologist's Impressions: Impressions Abdomen/Pelvis CT 01/16/24 08:12 IMPRESSION: Acute diverticulitis of the small bowel. Cystic lesion arising from the uncinate process measuring 2.3 x 2.9 x 2.8 cm. Follow-up MRI/MRCP may be considered. Assessment and Plan (1) Acute diverticulitis of intestine: Status: Acute Plan 88F PMH pafib, hfpef, anxiety, htn, dm, ckd III, gerd, copd, presented with nausea and vomiting for 3 days. became delerious and hyoxic Acute hypoxic respiratory failure Due to acute on chronic diastolic CHF, possible aspiration pneumonitis versus pneumonia Empiric IV Unasyn, IV Lasix, monitor BMP and electrolytes Wean O2 as tolerated Nausea vomiting due to acute small bowel diverticulitis Continue Unasyn, advanced diet as tolerated Paroxysmal atrial fibrillation with rapid ventricular response Continue metoprolol and Eliquis Acute hospital delirium Antipsychotics for patient's safety, oriented strategies Diabetes Insulin sliding scale CKD 3 Stable Hypertension Continue lisinopril DVT prophylaxis with Eliquis Full code Patient with hypoxia and agitation as well as AFib with RVR requiring close monitoring, oxygen supplementation, IV medications therefore expected require at least 2 midnights inpatient Quality Stroke Does the patient have a stroke diagnosis?: No VTE Prior VTE?: No VTE Risk Level:: Medical - moderate - high VTE Device Contraindication: Treatment Not Indicated VTE Drug Contraindication: N/A - Med Ordered
[2024-01-16] MEDS: OLANZapine 10 MG VIAL 5 MG IM ×2 (11:00→12:00)
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
--- NOTE | 2024-01-16 11:47 | PHA.MEDREC ---
Pharmacy Consult ? Medication Reconciliation Pharmacy has completed the medication reconciliation. Utilized discharge packet from 01/13/24.
--- NOTE | 2024-01-16 11:53 | PC.NURSE ---
patient currently sitting on end of bed with two RNs and PSA at bedside for 1:1 to be redirected and pt is becoming increasingly more argumentative and non redirectable. Pt took off all monitoring and nasal cannula and refuses to put back on. Pt oxygen saturation without NC 83%. MD aware
--- NOTE | 2024-01-16 12:24 | PC.NURSE ---
Patient able to be redirected to lay down in bed. Patient family at bedside sitting with patient.
[2024-01-16 12:35] LABS: Glucose, Whole Blood 204 mg/dL (60-115)
--- NOTE | 2024-01-16 13:24 | PC.NURSE ---
Patient oob to bedside commode voiding large amount of clear yellow urine. Hr remains elevated provider aware
--- NOTE | 2024-01-16 13:50 | PC.NURSE ---
per provider give am dose of PO metoprolol
[2024-01-16] MEDS: Metoprolol Succinate ER 50 MG TAB.ER.24H PO (13:55)
[2024-01-16] MEDS: Metoprolol Tartrate 5 MG/5 ML VIAL 2.5 MG IVPUSH (15:30)
[2024-01-16] MEDS: 0.9 % Sodium Chloride Flush 3 ML SYRINGE IVFLUSH ×2 (17:15→23:01)
[2024-01-16 17:25] LABS: Glucose, Whole Blood 165 mg/dL (60-115)
[2024-01-16] MEDS: Pregabalin 100 MG CAPSULE PO (21:03)
[2024-01-16] MEDS: Atorvastatin Calcium 40 MG TABLET PO (21:03)
[2024-01-16] MEDS: Apixaban 2.5 MG TABLET PO (21:03)
[2024-01-16] MEDS: Montelukast Sodium 10 MG TABLET PO (21:03)
[2024-01-16] MEDS: Melatonin 3 MG TABLET 6 MG PO (21:03)
[2024-01-16] MEDS: Ampicillin Sodium/Sulbactam Na 1.5 GM in 0.9 % Sodium Chloride 100 ML IV (21:04)
[2024-01-16 22:14] LABS: Glucose, Whole Blood 183 mg/dL (60-115)
[2024-01-16] MEDS: Insulin Lispro 100 UNIT/ML 3 ML VIAL SUBCUT (22:50)
[2024-01-17] VITALS (7 sets, daily range): BP systolic 86–140; BP diastolic 57–86; PULSE 77–101; RESP 17–20; TEMP 36.1–36.4; O2SAT 92–95
[2024-01-17] MEDS: Ampicillin Sodium/Sulbactam Na 1.5 GM in 0.9 % Sodium Chloride 100 ML IV ×4 (05:20→23:22)
[2024-01-17 05:48] LABS: Hematocrit 38.5 % (37.0-47.0); Hemoglobin 12.2 g/dl (12.0-16.0); Mean Corpuscular HGB Conc 31.7 g/dl (31.0-35.0); Mean Corpuscular Hemoglobin 30.2 pg (27.0-33.0); Mean Corpuscular Volume 95.3 fL (80.0-98.0); Mean Platelet Volume 11.4 fL (9.4-12.3); Platelet Count 208 X10*3/uL (160-400); Red Blood Count 4.04 X10*6/uL (4.20-5.50); Red Cell Distribution Width 14.5 % (11.0-16.0); White Blood Count 7.4 X10*3/uL (4.8-10.8)
[2024-01-17 06:06] LABS: Anion Gap 16 (12-20); Blood Urea Nitrogen 21 mg/dL (9-16); Calcium 9.8 mg/dL (8.4-10.2); Carbon Dioxide 26 mmol/L (22-29); Chloride 108 mmol/L (96-108); Creatinine Clr Calc Pharmacy 33.7; Estimated Glomerular Filt Rate 55; Glucose Fasting 114 mg/dL (60-99); Magnesium 1.7 mg/dL (1.6-2.6); Sodium 147 mmol/L (135-145)
[2024-01-17 07:46] LABS: Glucose, Whole Blood 100 mg/dL (60-115)
[2024-01-17] MEDS: Folic Acid 1 MG TABLET PO (08:47)
[2024-01-17] MEDS: Ascorbic Acid 500 MG TABLET PO (08:47)
[2024-01-17] MEDS: Apixaban 2.5 MG TABLET PO ×2 (08:47→22:06)
[2024-01-17] MEDS: Furosemide 40 MG/4 ML VIAL IVPUSH (08:47)
[2024-01-17] MEDS: Potassium Chloride ER 20 MEQ TAB.ER.PRT 40 MEQ PO (08:47)
[2024-01-17] MEDS: ALPRAZolam 0.25 MG TABLET PO (08:47)
[2024-01-17] MEDS: Metoprolol Succinate ER 50 MG TAB.ER.24H PO (08:47)
[2024-01-17] MEDS: Cyanocobalamin (Vitamin B-12) 1,000 MCG TABLET 1000 MCG PO (08:48)
[2024-01-17] MEDS: 0.9 % Sodium Chloride Flush 3 ML SYRINGE IVFLUSH ×3 (08:48→22:07)
[2024-01-17] MEDS: Cholecalciferol (Vitamin D3) 25 MCG TABLET PO (08:48)
--- NOTE | 2024-01-17 09:36 | P.PNIM_ITS ---
Subjective Subjective Date of Service: 01/17/24 Interval History: much calmer Physical Exam 2 Vital Signs: Vital Signs: Last Vital Signs Temp 96.9 F 01/17/24 07:29 Pulse 77 01/17/24 08:40 Resp 18 01/17/24 07:29 BP 136/79 01/17/24 08:40 Pulse Ox 93 01/17/24 07:29 O2 Del Method Nasal Cannula 01/17/24 07:29 O2 Flow Rate 4 01/17/24 07:29 BMI result Body Mass Index 33.0 some crackles, calmer, confused Objective Data Active Medications Acetaminophen (Acetaminophen 325 Mg Tablet) 650 mg PO Q6H PRN PRN Reason: Pain, Mild (Pain Scale 1-3), fever or headache Alprazolam (Alprazolam 0.25 Mg Tablet) 0.25 mg PO DAILY [facility] Last Admin: 01/17/24 08:47 Dose: 0.25 mg Documented By: ALEXANDRE Apixaban (Apixaban 2.5 Mg Tablet) 2.5 mg PO BID [facility] Last Admin: 01/17/24 08:47 Dose: 2.5 mg Documented By: ALEXANDRE Ascorbic Acid (Ascorbic Acid 500 Mg Tablet) 500 mg PO DAILY [facility] Last Admin: 01/17/24 08:47 Dose: 500 mg Documented By: ALEXANDRE Atorvastatin Calcium (Atorvastatin Calcium 40 Mg Tablet) 40 mg PO BEDTIME [facility] Last Admin: 01/16/24 21:03 Dose: 40 mg Documented By: DANDRE Calcium Carbonate (Calcium Carbonate 750 Mg Tab.Chew) 750 mg PO Q4H PRN PRN Reason: Heartburn Cyanocobalamin (Cyanocobalamin (Vitamin B-12) 1,000 Mcg Tablet) 1,000 mcg PO DAILY [facility] Last Admin: 01/17/24 08:48 Dose: 1,000 mcg Documented By: ALEXANDRE Docusate Sodium (Docusate Sodium 100 Mg Capsule) 100 mg PO BID PRN PRN Reason: Constipation Folic Acid (Folic Acid 1 Mg Tablet) 1 mg PO DAILY [facility] Last Admin: 01/17/24 08:47 Dose: 1 mg Documented By: ALEXANDRE Glucose (Glucose Gel 15 Gm Gel..Gram.) 15 gm PO Q15M PRN; Protocol PRN Reason: per Hypoglycemia Standing Ord. Dextrose (D10) 250 mls @ 750 mls/hr IV Q15M PRN; Protocol PRN Reason: per Hypoglycemia Standing Ord. Ampicillin Sodium/Sulbactam (Sodium 1.5 gm/ Sodium Chloride) 100 mls @ 200 mls/hr IV Q6H [facility] Insulin Human Lispro (Insulin Lispro 100 Unit/Ml 3 Ml Vial) 0 unit SUBCUT QIDACHS [facility]; Protocol Last Admin: 01/17/24 07:47 Dose: Not Given Documented By: AUDREY Non-Admin Reason: No Insulin Coverage Comments: POC 100 Magnesium Hydroxide (Milk Of Magnesia 30 Ml Oral.Susp) 30 ml PO DAILY PRN PRN Reason: Constipation Melatonin (Melatonin 3 Mg Tablet) 6 mg PO BEDTIME PRN PRN Reason: Insomnia Last Admin: 01/16/24 21:03 Dose: 6 mg Documented By: DANDRE Metoprolol Succinate (Metoprolol Succinate Er 50 Mg Tab.Er.24h) 50 mg PO DAILY [facility]; Protocol Last Admin: 01/17/24 08:47 Dose: 50 mg Documented By: ALEXANDRE Montelukast Sodium (Montelukast Sodium 10 Mg Tablet) 10 mg PO BEDTIME [facility] Last Admin: 01/16/24 21:03 Dose: 10 mg Documented By: DANDRE Omeprazole (Omeprazole 40 Mg Capsule.) 40 mg PO DAILY@0630 [facility] Last Admin: 01/17/24 06:38 Dose: Not Given Documented By: DANDRE Non-Admin Reason: Patient Asleep Pregabalin (Pregabalin 100 Mg Capsule) 100 mg PO Q12H [facility] Last Admin: 01/17/24 06:37 Dose: Not Given Documented By: DANDRE Non-Admin Reason: Patient Asleep Quetiapine Fumarate (Quetiapine Fumarate 25 Mg Tablet) 25 mg PO BID PRN PRN Reason: agitation Sodium Chloride (0.9 % Sodium Chloride Flush 3 Ml Syringe) 3 ml IVFLUSH QSHIFT [facility] Last Admin: 01/17/24 08:48 Dose: 3 ml Documented By: ALEXANDRE Vitamin D (Cholecalciferol (Vitamin D3) 25 Mcg Tablet) 25 mcg PO DAILY [facility] Last Admin: 01/17/24 08:48 Dose: 25 mcg Documented By: ALEXANDRE Labs 01/17/24 05:36 01/17/24 05:36 Labs: Laboratory Results - last 24 hr 01/16/24 01/16/24 01/16/24 09:15 10:13 12:25 MCV MCH MCHC RDW Plt Count MPV Immature Gran % (Auto) 0.5 H Neut % (Auto) 74.8 H Lymph % (Auto) 12.5 L Catron % (Auto) 11.6 H Eos % (Auto) 0.3 Baso % (Auto) 0.3 Lymph # (Auto) 1.7 Catron # (Auto) 1.5 H Eos # (Auto) 0.0 Baso # (Auto) 0.0 Abs Immat Gran (auto) 0.06 H Absolute Neuts (auto) 9.9 H Absolute Nucleated RBC 0.000 Nucleated RBC % (auto) 0.0 Smear Tech's Comments VERIFIED Anion Gap 13 Estim Creat Clear Calc 36.4 Estimated GFR > 60 POC Glucose 204 H Random Glucose 169 H Fasting Glucose Lactic Acid 1.8 Calcium 10.3 H Magnesium 1.7 Total Bilirubin 2.4 H Direct Bilirubin 0.8 H AST 22 ALT 25 Alkaline Phosphatase 99 Troponin I High Sens 6.7 D B-Natriuretic Peptide 771 H Total Protein 6.9 Albumin 3.9 01/16/24 01/16/24 01/17/24 17:20 22:09 05:36 MCV 95.3 MCH 30.2 MCHC 31.7 RDW 14.5 Plt Count 208 MPV 11.4 Immature Gran % (Auto) Neut % (Auto) Lymph % (Auto) Catron % (Auto) Eos % (Auto) Baso % (Auto) Lymph # (Auto) Catron # (Auto) Eos # (Auto) Baso # (Auto) Abs Immat Gran (auto) Absolute Neuts (auto) Absolute Nucleated RBC 0.000 Nucleated RBC % (auto) 0.0 Smear Tech's Comments Anion Gap 16 Estim Creat Clear Calc 33.7 Estimated GFR 55 POC Glucose 165 H 183 H Random Glucose Fasting Glucose 114 H Lactic Acid Calcium 9.8 Magnesium 1.7 Total Bilirubin Direct Bilirubin AST ALT Alkaline Phosphatase Troponin I High Sens B-Natriuretic Peptide Total Protein Albumin 01/17/24 07:32 MCV MCH MCHC RDW Plt Count MPV Immature Gran % (Auto) Neut % (Auto) Lymph % (Auto) Catron % (Auto) Eos % (Auto) Baso % (Auto) Lymph # (Auto) Catron # (Auto) Eos # (Auto) Baso # (Auto) Abs Immat Gran (auto) Absolute Neuts (auto) Absolute Nucleated RBC Nucleated RBC % (auto) Smear Tech's Comments Anion Gap Estim Creat Clear Calc Estimated GFR POC Glucose 100 Random Glucose Fasting Glucose Lactic Acid Calcium Magnesium Total Bilirubin Direct Bilirubin AST ALT Alkaline Phosphatase Troponin I High Sens B-Natriuretic Peptide Total Protein Albumin Assessment and Plan (1) CHF (congestive heart failure): Status: Acute (2) Paroxysmal atrial fibrillation: Status: Acute Plan 88F PMH pafib, hfpef, anxiety, htn, dm, ckd III, gerd, copd, presented with nausea and vomiting for 3 days. became delerious and hyoxic Acute hypoxic respiratory failure Due to acute on chronic diastolic CHF, possible aspiration pneumonitis versus pneumonia Empiric IV Unasyn signs of hemoconcentration on labs with increasing sodium and bun, will change to po lasix Wean O2 as tolerated Nausea vomiting due to acute small bowel diverticulitis Continue Unasyn, advance diet as tolerated Paroxysmal atrial fibrillation with rapid ventricular response Continue metoprolol and Eliquis, rate now controlled Acute hospital delirium improving Diabetes Insulin sliding scale CKD 3 Stable Hypertension Continue lisinopril DVT prophylaxis with Eliquis Full code reason for continued hospitalization:hypoxia Quality Stroke Does the patient have a stroke diagnosis?: No VTE Prior VTE?: No VTE Risk Level:: Medical - moderate - high VTE Device Contraindication: Treatment Not Indicated VTE Drug Contraindication: N/A - Med Ordered
--- NOTE | 2024-01-17 09:44 | MHC.CM.PN ---
IMM 01/17/24 Patient returns to ER after 2 days @ [facility] for STR. DX HF , ?asp PNA, Diverticulitis and AFIB RVR. She Lives @ home by herself. HCP is on file , tyree Pearson. PT willal prior admit 01/12 recommendation was STR. The patient and family refuse to return to [facility]. Local referrals were sent by ER CM. The referrals have been updated this morning. DP, once medically cleared is STR via BLS.
[2024-01-17 11:45] LABS: Glucose, Whole Blood 212 mg/dL (60-115)
[2024-01-17] MEDS: Insulin Lispro 100 UNIT/ML 3 ML VIAL SUBCUT ×2 (12:00→22:06)
[2024-01-17 16:16] LABS: Glucose, Whole Blood 106 mg/dL (60-115)
[2024-01-17] MEDS: Pregabalin 100 MG CAPSULE PO (17:23)
[2024-01-17 20:56] LABS: Glucose, Whole Blood 172 mg/dL (60-115)
[2024-01-17] MEDS: Montelukast Sodium 10 MG TABLET PO (22:06)
[2024-01-17] MEDS: Melatonin 3 MG TABLET 6 MG PO (22:06)
[2024-01-17] MEDS: Atorvastatin Calcium 40 MG TABLET PO (22:06)
[2024-01-17] MEDS: Acetaminophen 325 MG TABLET 650 MG PO (22:11)
[2024-01-18] VITALS: BP 114/68; PULSE 118; RESP 20; TEMP 36.1; O2SAT 98
[2024-01-18] MEDS: Ampicillin Sodium/Sulbactam Na 1.5 GM in 0.9 % Sodium Chloride 100 ML IV ×2 (06:00→11:34)
[2024-01-18] MEDS: Omeprazole 40 MG CAPSULE.DR PO (06:50)
[2024-01-18] MEDS: Pregabalin 100 MG CAPSULE PO ×2 (06:50→17:46)
[2024-01-18 07:00] LABS: Hematocrit 40.2 % (37.0-47.0); Mean Corpuscular HGB Conc 32.3 g/dl (31.0-35.0); Mean Corpuscular Hemoglobin 30.1 pg (27.0-33.0); Mean Corpuscular Volume 93.1 fL (80.0-98.0); Mean Platelet Volume 11.8 fL (9.4-12.3); Platelet Count 213 X10*3/uL (160-400); Red Blood Count 4.32 X10*6/uL (4.20-5.50); Red Cell Distribution Width 14.3 % (11.0-16.0); White Blood Count 7.4 X10*3/uL (4.8-10.8)
[2024-01-18 07:05] LABS: Anion Gap 17 (12-20); Blood Urea Nitrogen 27 mg/dL (9-16); Calcium 9.7 mg/dL (8.4-10.2); Carbon Dioxide 23 mmol/L (22-29); Chloride 108 mmol/L (96-108); Creatinine Clr Calc Pharmacy 29.4; Estimated Glomerular Filt Rate 47; Glucose Fasting 108 mg/dL (60-99); Potassium 3.5 mmol/L (3.3-5.1); Sodium 144 mmol/L (135-145)
[2024-01-18 07:10] VITALS: BP 117/68; PULSE 88; RESP 18; TEMP 36.2; O2SAT 96
[2024-01-18] MEDS: Apixaban 2.5 MG TABLET PO ×2 (07:49→20:22)
[2024-01-18] MEDS: Cholecalciferol (Vitamin D3) 25 MCG TABLET PO (07:49)
[2024-01-18] MEDS: Ascorbic Acid 500 MG TABLET PO (07:49)
[2024-01-18] MEDS: Furosemide 40 MG TABLET PO (07:49)
[2024-01-18] MEDS: ALPRAZolam 0.25 MG TABLET PO (07:49)
[2024-01-18] MEDS: Cyanocobalamin (Vitamin B-12) 1,000 MCG TABLET 1000 MCG PO (07:49)
[2024-01-18] MEDS: Folic Acid 1 MG TABLET PO (07:49)
[2024-01-18] MEDS: Metoprolol Succinate ER 50 MG TAB.ER.24H PO (07:50)
[2024-01-18 07:55] LABS: Glucose, Whole Blood 109 mg/dL (60-115)
[2024-01-18] MEDS: 0.9 % Sodium Chloride Flush 3 ML SYRINGE IVFLUSH (08:03)
[2024-01-18] MEDS: Acetaminophen 325 MG TABLET 650 MG PO (09:32)
[2024-01-18 11:28] VITALS: BP 91/74; PULSE 100; RESP 18; TEMP 36.1; O2SAT 95
--- NOTE | 2024-01-18 11:33 | HO.PM.IMPN ---
Subjective Subjective Date of Service: 01/18/24 Interval History: Complaining of mild headache, and muscular pain in both arms and knees, denies shortness of breath, no cough, no nausea, no vomiting, no abdominal, no diarrhea, stable oxygenation on 4 L. Review of Systems All other system reviewed and are negative. Physical Exam Vital Signs: Vital Signs: Last Vital Signs Temp 97.0 F 01/18/24 11:28 Pulse 100 01/18/24 11:28 Resp 18 01/18/24 11:28 BP 91/74 01/18/24 11:28 Pulse Ox 95 01/18/24 11:28 O2 Del Method Nasal Cannula 01/18/24 11:28 O2 Flow Rate 4 01/18/24 11:28 BMI result Body Mass Index 33.0 Const: Other: General resting comfortably in no acute distress. Neck no JVD. CVS regular rate rhythm, Respiratory lungs clear to auscultation, no respiratory distress, no wheeze, no rhonchi. Gastrointestinal abdomen soft, non tender, bowel sounds audible, no guarding , no rigidity. Extremities no edema. Neuro non focal Skin no rash Objective Data Active Medications Acetaminophen (Acetaminophen 325 Mg Tablet) 650 mg PO Q6H PRN PRN Reason: Pain, Mild (Pain Scale 1-3), fever or headache Last Admin: 01/18/24 09:32 Dose: 650 mg Documented By: EVA Alprazolam (Alprazolam 0.25 Mg Tablet) 0.25 mg PO DAILY [facility] Last Admin: 01/18/24 07:49 Dose: 0.25 mg Documented By: EVA Apixaban (Apixaban 2.5 Mg Tablet) 2.5 mg PO BID [facility] Last Admin: 01/18/24 07:49 Dose: 2.5 mg Documented By: EVA Ascorbic Acid (Ascorbic Acid 500 Mg Tablet) 500 mg PO DAILY [facility] Last Admin: 01/18/24 07:49 Dose: 500 mg Documented By: EVA Atorvastatin Calcium (Atorvastatin Calcium 40 Mg Tablet) 40 mg PO BEDTIME [facility] Last Admin: 01/17/24 22:06 Dose: 40 mg Documented By: DANDRE Calcium Carbonate (Calcium Carbonate 750 Mg Tab.Chew) 750 mg PO Q4H PRN PRN Reason: Heartburn Cyanocobalamin (Cyanocobalamin (Vitamin B-12) 1,000 Mcg Tablet) 1,000 mcg PO DAILY [facility] Last Admin: 01/18/24 07:49 Dose: 1,000 mcg Documented By: EVA Docusate Sodium (Docusate Sodium 100 Mg Capsule) 100 mg PO BID PRN PRN Reason: Constipation Folic Acid (Folic Acid 1 Mg Tablet) 1 mg PO DAILY [facility] Last Admin: 01/18/24 07:49 Dose: 1 mg Documented By: EVA Furosemide (Furosemide 40 Mg Tablet) 40 mg PO DAILY [facility]; Protocol Last Admin: 01/18/24 07:49 Dose: 40 mg Documented By: EVA Glucose (Glucose Gel 15 Gm Gel..Gram.) 15 gm PO Q15M PRN; Protocol PRN Reason: per Hypoglycemia Standing Ord. Dextrose (D10) 250 mls @ 750 mls/hr IV Q15M PRN; Protocol PRN Reason: per Hypoglycemia Standing Ord. Ampicillin Sodium/Sulbactam (Sodium 1.5 gm/ Sodium Chloride) 100 mls @ 200 mls/hr IV Q6H [facility] Last Infusion: 01/18/24 06:30 Dose: Infused Documented By: DANDRE Insulin Human Lispro (Insulin Lispro 100 Unit/Ml 3 Ml Vial) 0 unit SUBCUT QIDACHS [facility]; Protocol Last Admin: 01/18/24 08:01 Dose: Not Given Documented By: EVA Non-Admin Reason: No Insulin Coverage Magnesium Hydroxide (Milk Of Magnesia 30 Ml Oral.Susp) 30 ml PO DAILY PRN PRN Reason: Constipation Melatonin (Melatonin 3 Mg Tablet) 6 mg PO BEDTIME PRN PRN Reason: Insomnia Last Admin: 01/17/24 22:06 Dose: 6 mg Documented By: DANDRE Metoprolol Succinate (Metoprolol Succinate Er 50 Mg Tab.Er.24h) 50 mg PO DAILY [facility]; Protocol Last Admin: 01/18/24 07:50 Dose: 50 mg Documented By: EVA Montelukast Sodium (Montelukast Sodium 10 Mg Tablet) 10 mg PO BEDTIME [facility] Last Admin: 01/17/24 22:06 Dose: 10 mg Documented By: DANDRE Omeprazole (Omeprazole 40 Mg Capsule.) 40 mg PO DAILY@0630 [facility] Last Admin: 01/18/24 06:50 Dose: 40 mg Documented By: DANDRE Pregabalin (Pregabalin 100 Mg Capsule) 100 mg PO Q12H [facility] Last Admin: 01/18/24 06:50 Dose: 100 mg Documented By: DANDRE Quetiapine Fumarate (Quetiapine Fumarate 25 Mg Tablet) 25 mg PO BID PRN PRN Reason: agitation Sodium Chloride (0.9 % Sodium Chloride Flush 3 Ml Syringe) 3 ml IVFLUSH QSHIFT [facility] Last Admin: 01/18/24 08:03 Dose: 3 ml Documented By: EVA Trolamine Salicylate (Trolamine Salicylate 10 % Cream 85 Gm Tube) 1 appl TOPICAL BID [facility]; Protocol Vitamin D (Cholecalciferol (Vitamin D3) 25 Mcg Tablet) 25 mcg PO DAILY [facility] Last Admin: 01/18/24 07:49 Dose: 25 mcg Documented By: EVA Labs 01/18/24 06:35 01/18/24 06:35 Labs: Laboratory Results - last 24 hr 01/17/24 01/17/24 01/17/24 11:27 16:07 20:51 MCV MCH MCHC RDW Plt Count MPV Absolute Nucleated RBC Nucleated RBC % (auto) Anion Gap Estim Creat Clear Calc Estimated GFR POC Glucose 212 H 106 172 H Fasting Glucose Calcium 01/18/24 01/18/24 06:35 07:50 MCV 93.1 MCH 30.1 MCHC 32.3 RDW 14.3 Plt Count 213 MPV 11.8 Absolute Nucleated RBC 0.000 Nucleated RBC % (auto) 0.0 Anion Gap 17 Estim Creat Clear Calc 29.4 Estimated GFR 47 POC Glucose 109 Fasting Glucose 108 H Calcium 9.7 Microbiology Microbiology Results: Microbiology 01/16/24 10:14 Blood Culture - Preliminary Blood - Venous No growth after 24 hours. 01/16/24 10:13 Blood Culture - Preliminary Blood - Venous No growth after 24 hours. Assessment and Plan (1) CHF (congestive heart failure): Status: Acute (2) Paroxysmal atrial fibrillation: Status: Acute Plan 88F PMH pafib, hfpef, anxiety, htn, dm, ckd III, gerd, copd, presented with nausea and vomiting for 3 days. became delerious and hyoxic Acute hypoxic respiratory failure Due to acute on chronic diastolic CHF, possible aspiration pneumonitis versus pneumonia CHF resolved, no cough, oxygenation improvement will wean oxygen as tolerated Echocardiogram from 11/20/2023 showing preserved ejection fraction on po lasix, will hold for mild dehydration and soft bp Wean O2 as tolerated Nausea vomiting due to acute small bowel diverticulitis Nausea, vomiting and abdominal pain resolved, tolerating diet Afebrile normal WBC count will DC IV Unasyn , place on Augmentin renally dosed started on 01/17. Paroxysmal atrial fibrillation with rapid ventricular response Continue metoprolol and Eliquis, rate now controlled. Acute hospital delirium Resolved Diabetes Stable blood sugar, continue Insulin sliding scale CKD 3 Stable Hypertension Soft blood pressure will hold Lasix, continue Toprol-XL and give gentle fluids,follow bmp. Generalized muscular pain will use as needed Aspercreme. DVT prophylaxis with Eliquis Full code reason for continued hospitalization:hypoxia Quality Stroke Does the patient have a stroke diagnosis?: No VTE Prior VTE?: No VTE Risk Level:: Medical - moderate - high VTE Device Contraindication: Treatment Not Indicated VTE Drug Contraindication: N/A - Med Ordered
[2024-01-18 11:37] LABS: Glucose, Whole Blood 184 mg/dL (60-115)
[2024-01-18] MEDS: Trolamine Salicylate 10 % Cream 85 GM TUBE 1 APPL TOPICAL ×2 (11:37→22:57)
[2024-01-18] MEDS: Insulin Lispro 100 UNIT/ML 3 ML VIAL SUBCUT ×2 (11:43→20:25)
[2024-01-18] MEDS: Lactated Ringers 1,000 ML 80 ML IVCONT (11:49)
[2024-01-18] MEDS: Amoxicillin/Potassium Clav 500 MG TABLET PO ×2 (13:12→23:01)
[2024-01-18 15:22] VITALS: BP 119/61; PULSE 85; RESP 18; TEMP 36.4; O2SAT 96
[2024-01-18 16:10] LABS: Glucose, Whole Blood 131 mg/dL (60-115)
[2024-01-18 20:00] VITALS: BP 124/74; PULSE 97; RESP 18; TEMP 36.1; O2SAT 98
[2024-01-18] MEDS: Melatonin 3 MG TABLET 6 MG PO (20:21)
[2024-01-18] MEDS: Montelukast Sodium 10 MG TABLET PO (20:22)
[2024-01-18] MEDS: Atorvastatin Calcium 40 MG TABLET PO (20:22)
[2024-01-18 20:36] LABS: Glucose, Whole Blood 183 mg/dL (60-115)
[2024-01-19] VITALS: BP 131/75; PULSE 94; RESP 20; TEMP 36.3; O2SAT 99
[2024-01-19 03:51] VITALS: BP 113/70; PULSE 83; RESP 18; TEMP 36.4; O2SAT 97
[2024-01-19] MEDS: Omeprazole 40 MG CAPSULE.DR PO (05:34)
[2024-01-19] MEDS: Pregabalin 100 MG CAPSULE PO (05:34)
[2024-01-19 07:14] LABS: B Type Natriuretic Peptide 315 pg/mL (<100)
[2024-01-19 07:21] LABS: Glucose, Whole Blood 136 mg/dL (60-115)
[2024-01-19 07:27] LABS: Anion Gap 13 (12-20); Blood Urea Nitrogen 22 mg/dL (9-16); Calcium 9.6 mg/dL (8.4-10.2); Chloride 106 mmol/L (96-108); Creatinine Clr Calc Pharmacy 34.1; Estimated Glomerular Filt Rate 56; Glucose Random 142 mg/dL (60-115); Potassium 3.9 mmol/L (3.3-5.1); Sodium 143 mmol/L (135-145)
[2024-01-19 07:57] LABS: Carbon Dioxide 29 mmol/L (22-29)
[2024-01-19 08:00] VITALS: BP 138/89; PULSE 109; RESP 20; TEMP 36.1; O2SAT 2
[2024-01-19] MEDS: Cholecalciferol (Vitamin D3) 25 MCG TABLET PO (08:18)
[2024-01-19] MEDS: Apixaban 2.5 MG TABLET PO (08:18)
[2024-01-19] MEDS: ALPRAZolam 0.25 MG TABLET PO (08:18)
[2024-01-19] MEDS: Metoprolol Succinate ER 50 MG TAB.ER.24H PO (08:18)
[2024-01-19] MEDS: Folic Acid 1 MG TABLET PO (08:18)
[2024-01-19] MEDS: Ascorbic Acid 500 MG TABLET PO (08:18)
[2024-01-19] MEDS: Cyanocobalamin (Vitamin B-12) 1,000 MCG TABLET 1000 MCG PO (08:18)
[2024-01-19] MEDS: 0.9 % Sodium Chloride Flush 3 ML SYRINGE IVFLUSH (08:22)
[2024-01-19 09:34] VITALS: PULSE 116; O2SAT 86
--- NOTE | 2024-01-19 10:57 | MHC.CM.PN ---
CM CONTACTED PT'S SISTER/HCP ABBY AT 10:50AM (#ON FILE) TO DISCUSS DISPO, ABBY AWARE [facility]NA[facility] TO OFFER AND THAT PT TOLD HER IF SHE CANNOT GO TO [facility] REPORTS SHE WILL GO HOME INSTEAD, ABBY REPORTS SHE WOULD BE AGREEABLE FOR PT TO GO HOME W/SERVICES SHE HAS A NEIGHBOR WHO COULD CHECK IN ON PT, ABBY REPORTS THAT IT IS STILL PATIENTS DECISION TO DECIDE WHETHER SHE GOES TO [facility] OR HOME, CM WILL CHECK IN WITH PT AND REVIEW SNF'S THAT DID SHOW INTEREST AND LET ABBY KNOW ABOUT DECISION.
[2024-01-19 11:27] LABS: Glucose, Whole Blood 176 mg/dL (60-115)
--- NOTE | 2024-01-19 11:30 | MHC.CM.PN ---
Addendum entered by Shanon Ty RN 01/19/24 13:04: PER HOSPITALIST PT WILL NEED A HOME O2 EVAL PRIOR TO DC. Original Note: PT MEDICALLY CLEARED FOR DC HOME ANTIC W/NEW [facility] FOR SN/PT, PT'S SISTER/HCP ABBY FOR TRANSPORT. CM DID CONTACT [facility] TO SEE IF THEY COULD GATHER CLOTHING FOR PT, [facility] IS ON VACATION HOWEVER WILL PASS MESSAGE ALONG.
[2024-01-19] MEDS: Trolamine Salicylate 10 % Cream 85 GM TUBE 1 APPL TOPICAL (11:36)
[2024-01-19] MEDS: Insulin Lispro 100 UNIT/ML 3 ML VIAL SUBCUT (11:36)
[2024-01-19] MEDS: Amoxicillin/Potassium Clav 500 MG TABLET PO (11:36)
[2024-01-19 12:00] VITALS: BP 128/80; PULSE 87; RESP 20; TEMP 36.1
--- NOTE | 2024-01-19 13:05 | P.DS_ITS ---
DS: Providers Provider Date of Service: 01/19/24 Date of admission: 01/16/24 10:54 Primary care physician: Solange Jacobs MD DS: Diagnosis Discharge Diagnosis (1) CHF (congestive heart failure): Status: Acute (2) Paroxysmal atrial fibrillation: Status: Acute DS: Summary Hospital Course Hospital Course: Date of Service: 01/16/24 Chief Complaint: n/v 88F PMH pafib, hfpef, anxiety, htn, dm, ckd III, gerd, copd, presented with nausea and vomiting for 3 days. Patient was discharged 01/13/2024 after hospitalization for AFib with RVR and CHF. She returned to ED 01/15/2024 with nausea and vomiting inability to tolerate p.o.. Denied fever or chills. During course in ER patient became delirious, agitated, thrashing, difficult to redirect. Ended up going into AFib with RVR, becoming hypoxic. CT abdomen pelvis did show small bowel diverticulitis. Hospital course: 88F PMH pafib, hfpef, anxiety, htn, dm, ckd III, gerd, copd, presented with nausea and vomiting for 3 days, became delerious and hypoxic, admitted to [facility] with a diagnosis of acute hypoxic respiratory failure due to acute on chronic diastolic congestive heart failure with possible aspiration pneumonitis, patient treated with IV Lasix CHF resolved, oxygenation improved,Echocardiogram from 11/20/2023 showed preserved ejection fraction, will discharge on po lasix. Home O2 eval obtained patient do not qualify for home oxygen. Patient seen by Physical therapy they recommended short-term rehab however patient declined rehab, spoke with patient's sister they agreeable to provide close monitoring at home will discharge with VNA and PT services. In regard to acute small-bowel diverticulitis patient treated with IV Unasyn, nausea, vomiting, abdominal pain resolved, tolerating diet, remains afebrile with normal WBC count antibiotic transitioned to by mouth Augmentin renally dosed, will discharge home on 2 more days of antibiotics. Paroxysmal atrial fibrillation noted to have rapid ventricular response in the emergency room treated with metoprolol and Eliquis heart rate improved,Continue metoprolol and Eliquis. Acute hospital delirium resolved was likely due to infection. Diabetes Stable blood sugar, continue diabetic diet. CKD 3 Stable Hypertension continue Toprol-XL will hold lisinopril due to stable blood pressure off lisinopril. Time Attestation Discharge Coordination Time (in mins): 40 Quality: Safe Use of Opioids Does Pt have an Active Cancer Diagnosis on the Problem List?: No Quality: Stroke Does the patient have a stroke diagnosis?: No Physical Exam Vital Signs: Vital Signs: Last Vital Signs Temp 97.0 F 01/19/24 12:00 Pulse 87 01/19/24 12:00 Resp 20 01/19/24 12:00 BP 128/80 01/19/24 12:00 Pulse Ox 86 L 01/19/24 09:34 O2 Del Method Nasal Cannula 01/19/24 12:00 O2 Flow Rate 2 01/19/24 12:00 BMI result Body Mass Index 33.0 Const: Other: General resting comfortably in no acute distress. Neck no JVD. CVS regular rate rhythm, Respiratory lungs clear to auscultation, no respiratory distress, no wheeze, no rhonchi. Gastrointestinal abdomen soft, non tender, bowel sounds audible, no guarding , no rigidity. Extremities no edema. Neuro non focal , speech clear moving all 4 extremities no confusion Skin no rash DS: Data Data Completed and Pending Labs on day of discharge: Laboratory Results - last 24 hr 01/18/24 01/18/24 01/19/24 16:02 20:20 05:39 Sodium 143 Potassium 3.9 Chloride 106 Carbon Dioxide 29 Anion Gap 13 BUN 22 H Creatinine 0.95 Estim Creat Clear Calc 34.1 Estimated GFR 56 POC Glucose 131 H 183 H Random Glucose 142 H Calcium 9.6 B-Natriuretic Peptide 315 H 01/19/24 01/19/24 07:11 11:22 Sodium Potassium Chloride Carbon Dioxide Anion Gap BUN Creatinine Estim Creat Clear Calc Estimated GFR POC Glucose 136 H 176 H Random Glucose Calcium B-Natriuretic Peptide Preliminary micro results at discharge 01/16/24 10:14 Blood Culture - Preliminary Blood - Venous No growth after 48 hours. 01/16/24 10:13 Blood Culture - Preliminary Blood - Venous No growth after 48 hours. Discharge Plan Discharge Anticipated Discharge Date/Time: 01/19/24 13:19 Patient Disposition: Home Health Service Discharge Diagnosis: Acute hypoxic respiratory failure Acute on chronic diastolic heart failure Acute small-bowel diverticulitis. Referrals: Suzanne BUITRAGO [Outside] - 1 Day ([facility], A NURSE WILL CONTACT YOU OR ABBY TO SET UP FIRST VISIT. ) Po,Lorenver O, MD [Primary Care Provider] - 1 Week Discharge Medications: New amoxicillin-pot clavulanate 500-125 mg Tablet 1 tab PO Q12H Qty: 5 0RF Continued (DME) pediatric front wheel walker See Rx Instructions .Route .MEDSUPPLY Qty: 1 0RF Rx Instructions: As directed Eliquis 2.5 mg tablet 2.5 mg PO BID Qty: 180 3RF alprazolam 0.25 mg tablet 0.25 mg PO DAILY 30 Days Qty: 30 0RF (DME) lancets [FreeStyle Lancets] 28 gauge misc See Rx Instructions .ROUTE .MEDSUPPLY Qty: 100 3RF Rx Instructions: use to test sugar once a day metoprolol succinate 50 mg tablet extended release 24 hr 50 mg PO DAILY 90 Days Qty: 90 2RF furosemide 40 mg tablet 40 mg PO DAILY Qty: 90 2RF pregabalin 100 mg capsule 100 mg PO Q12H 30 Days Qty: 60 2RF folic acid 1 mg tablet 1 mg PO DAILY Qty: 90 2RF (DME) blood-glucose meter [[employer] Verio Flex Start] Kit See Rx Instructions .Route Rx Instructions: Test twice a day ascorbic acid (vitamin C) [Vitamin C] 500 mg tablet 500 mg PO DAILY Qty: 90 1RF tramadol 50 mg tablet 50 mg PO DAILY PRN (Reason: Pain) cyanocobalamin (vitamin B-12) [Vitamin B-12] 1,000 mcg Tablet 1,000 mcg PO DAILY zolpidem 5 mg tablet 5 mg PO BEDTIME PRN (Reason: insomnia) diclofenac sodium [Arthritis Pain (diclofenac)] 1 % gel 4 g topical QID PRN (Reason: Pain) Rx Instructions: apply to single knee, ankle, foot; for foot includes sole/toes/top of foot docusate sodium 100 mg Capsule 100 mg PO BID PRN (Reason: Constipation) albuterol sulfate 90 mcg/actuation Hfa Aerosol Inhaler 1 puff INHALATION QID montelukast [Singulair] 10 mg tablet 10 mg PO BEDTIME dexlansoprazole [Dexilant] 60 mg capsule,biphase delayed releas 60 mg PO DAILY@0630 atorvastatin [Lipitor] 40 mg tablet 40 mg PO BEDTIME (DME) PEDIATRIC FRONT WHEELED WALKER See Rx Instructions .Route .MEDSUPPLY Qty: 1 0RF Rx Instructions: As directed cholecalciferol (vitamin D3) 25 mcg (1,000 unit) capsule 25 mcg PO DAILY Discontinued lisinopril 5 mg tablet 5 mg PO DAILY Qty: 90 3RF Discharge Orders: Discharge Order (Routine); Ordered 01/19/24 Ordered By: Titi Graham Diet: Diabetic diet Activity on Discharge: As tolerated Stand Alone Forms: Patient Portal Discharge page Print Language: Qatari Care Plan Goals: CHF resolved continue home dose of Lasix Take 2 more days of antibiotics Health Concerns: Diabetes follow diabetic diet Plan of Treatment: Outpatient follow-up with primary care physician. Assessment: As above Discharge Date/Time: 01/19/24 14:44
[2024-01-19 13:41] VITALS: PULSE 100; PULSE 110; O2SAT 92; O2SAT 94; O2SAT 95
--- NOTE | 2024-01-19 15:38 | W.MHC.F2F ---
Service Date Service Date: 01/19/24 Encounter Date of encounter: 01/19/24 Reasons for Services Signs and symptoms assessed: Weakness, diverticulitis, CHF flare Reason for fpc: medication management Reason for physical therapy: home safety and mobility Homebound: Leaving the home is medically contraindicated at this time without the asist of a device and/or another person due th the listed conditions above and below. Reason homebound: weakness related to hospital stay Certification: Based on the above findings, I certify that this patient is confined to the home and needs intermittent fpc care, physical therapy and/or speech therapy, or continues to need occupational therapy. The patient is under my care, and I have initiated the establishment of the plan of care. The patient will be followed by a physician who will periodically review the plan of care. Time Spent With Patient Time: Total time managing care of this patient today ____ minutes.
--- NOTE | 2024-01-23 12:00 | PC.NURSE ---
Late Entry for 01/16/24 at 7:08am. Patient medicated with morphine per updated documentation on JUL. Initially incorrectly documented as not given however was given at 7:08am on 01/16/2024
== END 2024-01-19 14:44 | disposition home health service (06) | DRG 291 ==
LOC: HO.ED 01-16 04:25 → HO.EDOVER 01-16 11:09 → HO.IMC 01-16 17:21
PROVIDERS: Physician Assistant; Admitting Provider Internal Medicine; Emergency Provider Internal Medicine; PCP Internal Medicine; Visit Provider Hospitalist
DX: I13.0 Hypertensive heart and chronic kidney disease with heart failure and stage 1 through stage 4 chronic kidney disease, or unspecified chronic kidney disease (principal); I50.33 Acute on chronic diastolic (congestive) heart failure; J96.01 Acute respiratory failure with hypoxia; J69.0 Pneumonitis due to inhalation of food and vomit; K57.12 Diverticulitis of small intestine without perforation or abscess without bleeding; F05 Delirium due to known physiological condition; F41.9 Anxiety disorder, unspecified; I48.0 Paroxysmal atrial fibrillation; J44.9 Chronic obstructive pulmonary disease, unspecified; N18.32 Chronic kidney disease, stage 3b; E11.22 Type 2 diabetes mellitus with diabetic chronic kidney disease; Z20.822 Contact with and (suspected) exposure to COVID-19; Z87.891 Personal history of nicotine dependence; Z79.01 Long term (current) use of anticoagulants; Z79.899 Other long term (current) drug therapy
CPT/HCPCS: 36415; 71045; 74176; 80048; 80076; 81003; 82947; 83605; 83735; 83880; 84484; 85025; 85027; 87040; 87635; 93005; 97162; 99285; J0295; J1940; J2060; J2270; J2359; J2405; J2543; J7120

== ENCOUNTER → 2024-01-15 16:32 | Outpatient (BNV) | payer MEDICARE, OTHER, SELFPAY | PROVIDERS: Emergency Provider Internal Medicine; Visit Provider Internal Medicine | DX: I50.33 Acute on chronic diastolic (congestive) heart failure (principal); I48.0 Paroxysmal atrial fibrillation; J96.01 Acute respiratory failure with hypoxia | CPT/HCPCS: 99223; 99232; 99239; G0180 ==

== ENCOUNTER 2024-02-04 10:41 | Outpatient (AMB) | payer MEDICARE, OTHER, SELFPAY ==
[2024-02-04 11:33] VITALS: BP 136/82; PULSE 118; O2SAT 92; BMI 33.1
--- NOTE | 2024-02-04 11:33 | MHC.PC.OV ---
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: No Allergies ciprofloxacin Allergy (Severe, Verified 02/04/24 11:39) unknown aspirin [Aspirin] Allergy (Unknown, Verified 02/04/24 11:39) UNKNOWN cefuroxime Allergy (Unknown, Verified 02/04/24 11:39) Unknown celecoxib [From Celebrex] Allergy (Unknown, Verified 02/04/24 11:39) UNKNOWN metformin Allergy (Unknown, Verified 02/04/24 11:39) diarrhea risedronate sodium [From Actonel] Allergy (Unknown, Verified 02/04/24 11:39) UNKNOWN Sulfa (Sulfonamide Antibiotics) Allergy (Unknown, Verified 02/04/24 11:39) unknown bupropion Adverse Reaction (Intermediate, Verified 02/04/24 11:39) tremor ferrous sulfate Adverse Reaction (Intermediate, Verified 02/04/24 11:39) tremors sertraline Adverse Reaction (Intermediate, Verified 02/04/24 11:39) tremors Tobacco use date assessed: 10/17/23 Fall risk assessment: 2 + Falls in past year Last assessed Fall Risk: 02/04/24 Dental Screening Dental Screen Date: 09/18/23 HPI 3MOF\U HPI Details 88-year-old obese female with multiple medical problems hypertension hypercholesterolemia GERD diabetes mellitus generalized anxiety disorder coronary artery disease congestive heart failure lumbar degenerative disc disease atrial fibrillation COPD coming in for follow-up. Last seen in Oct 17 2023. Had a call on the weekend having weakness and lightheadedness.. Patient was recently in the hospital January [id number] AFib with rapid ventricular rate and congestive heart failure. Due to nausea and vomiting inability to tolerate p.o. had small-bowel diverticulitis patient was treated with IV antibiotics. Patient was discharged home on Augmentin. Echocardiogram done in 11/20/2023 Normal left ventricular size and systolic function. There is severely increased left ventricular wall thickness. The visually estimated ejection fraction is between 55-60%. - Normal right ventricular cavity size. There is low normal right ventricular systolic function. - The left atrium is severely dilated. - There is moderate calcification of the aortic valve. There is mild aortic valve stenosis. There is mild aortic valve regurgitation. - There is mild mitral valve regurgitation. - There is mild dilatation of the ascending aorta measuring 3.60 cm. [facility] Medical History Hypokalemia Hypomagnesemia Diarrhea Hearing difficulty Dyspnea on exertion History of gastrointestinal diverticular hemorrhage COVID-19 virus infection Rectal bleeding Medicare annual wellness visit, initial Hip pain, left Patellar sleeve fracture of right knee Knee pain, right Nausea and vomiting Coarse tremors Shoulder pain, right Hospital discharge follow-up Mass on back Constipation Tinea corporis Nausea Right wrist pain Left knee pain Left hip pain Toe pain, left Breast cancer screening by mammogram UTI (urinary tract infection) Type 2 diabetes mellitus with hyperglycemia Obesity (BMI 30-39.9) Lipoma of lower back Urinary frequency Toe fracture, left Pancreatic cyst Osteoporosis Peptic ulcer disease Urinary incontinence Rectal incontinence GERD (gastroesophageal reflux disease) Bile salt-induced diarrhea Vaginal prolapse Renal artery stenosis Asthma Lumbar degenerative disc disease Insomnia TIA (transient ischemic attack) Hyperlipidemia, unspecified Essential hypertension Surgical History Hx of colonoscopy History of esophagogastroduodenoscopy (EGD) History of removal of cyst (~10/17/21) History of hemorrhoidectomy History of colectomy History of section History of hysterectomy History of appendectomy History of cholecystectomy Family History Father Cancer Arterial thrombosis Mother Multiple sclerosis Muscular dystrophy Hypertension Depression Chronic mental illness Mental health disorder Brother No problems noted. Brother Gangrene Sister No problems noted. Son No problems noted. Son No problems noted. Son No problems noted. Son No problems noted. Daughter No problems noted. Daughter No problems noted. Daughter No problems noted. Social History Household Members: None Housing: Apartment Do you presently have visiting nurse or other home services: No Alcohol intake: former Comment: 1:1 sitter Patient Tobacco Use Status: Former Tobacco user Tobacco use type: Cigarette Years Smoked: 22 e-Cigarette/Vaping Use: Former Use Second Hand Smoke Exposure: No Advance Directives Date on File: 08/06/23 service: No Current occupational status: disabled Current occupational exposures/hazards: No Cognitive needs: Yes Hearing needs: Yes Vision needs: Yes Questionnaire PHQ-9 Over the last 2 weeks, how often have you been bothered by any of the following problems? 1. Little interest or pleasure in doing things: several days 2. Feeling down, depressed, or hopeless: several days 3. Trouble falling or staying asleep, or sleeping too much: nearly every day 4. Feeling tired or having little energy: more than half the days 5. Poor appetite or overeating: not at all 6. Feeling bad about yourself - or that you are a failure or have let yourself or your family down: not at all 7. Trouble concentrating on things, such as reading the newspaper or watching television: not at all 8. Moving or speaking so slowly that other people could have noticed. Or the opposite - being so fidgety or restless that you have been moving around a lot more than usual: not at all 9. Thoughts that you would be better off or of hurting yourself in some way: not at all Total score: 7 Depression Screening Interpretation: Positive Depression Screening Follow-up: Existing condition Depression Screening Done: Yes 78832 - PHQ-9 Billing: Yes Source: Developed by Drs. Brandon Villeda, Vijaya Damon, Jaydon Easley and colleagues, with an educational phi from [employer]. Thrive Questionnaire Date Thrive assessed: 01/17/24 AUDIT C Alcohol Use Questionnaire (AUDIT-C) 1. How often do you have a drink containing alcohol?: Never 3. How often do you have six or more drinks on one occasion?: Never Total Score: 0 Score Reviewed/Action Taken: No MERY-7 AMB Questionnaire MERY-7 Date MERY - 7 assessed: 09/18/23 Source: Developed by Drs. Brandon Villdea, Vijaya Damon, Jaydon Easley and colleagues, with an educational phi from [employer]. Physical exam (Primary Care) Vital Signs: Last Vital Signs Pulse 118 H 02/04/24 11:33 BP 136/82 02/04/24 11:33 Pulse Ox 92 02/04/24 11:33 Oxygen Delivery Method Room Air 02/04/24 11:33 BMI result Body Mass Index 33.1 Tobacco/Smoking Status: Tobacco use Status Tobacco use date assessed 10/17/23 02/04/24 11:38 Patient Tobacco Use Status Former Tobacco user 02/04/24 11:38 Tobacco use type Cigarette 02/04/24 11:38 e-Cigarette/Vaping Use Former Use 02/04/24 11:38 PHQ-9: PHQ-9 Score PHQ-9: Total score 7 02/04/24 11:53 Depression Screening Interpretation: Positive Depression Screening Follow-up: Existing condition Thrive Assessment: Date of Thrive Assessment Date Thrive assessed 01/17/24 02/04/24 11:38 Const General: alert; No acute distress Eyes Conjunctivae: conjunctivae normal Resp Auscultation: clear to auscultation bilaterally Cardio Rate: regular rate Rhythm: regular rhythm GI Inspection: Yes normal to inspection Extrem General: Yes normal to inspection and No edema Results AMB Hemoglobin A1c AMB Hemoglobin A1c 6.7 % Last Edit by Velia Mendoza CMA on 02/04/24 11:55 Assessment and Plan Assessment & Plan (1) Atrial fibrillation with RVR: Code(s): I48.91 - Unspecified atrial fibrillation Plan: Patient is on Eliquis 2.5 mg twice a day metoprolol 50 mg once a day (2) Acute diverticulitis of intestine: Code(s): K57.92 - Diverticulitis of intestine, part unspecified, without perforation or abscess without bleeding Plan: Patient was prescribed antibiotic and sent home on Augmentin. (3) CHF (congestive heart failure): Code(s): I50.9 - Heart failure, unspecified Qualifiers: Heart failure chronicity: acute on chronic Heart failure type: systolic Qualified Code(s): I50.23 - Acute on chronic systolic (congestive) heart failure Plan: Continue with the diuretic furosemide 40 mg once a day and metoprolol 50 mg once a day (4) Essential hypertension: Code(s): I10 - Essential (primary) hypertension Plan: Continue with blood pressure medication. Decrease salt intake and exercise takes metoprolol 50 mg once a day (5) Hyperlipidemia, unspecified: Code(s): E78.5 - Hyperlipidemia, unspecified Qualifiers: Hyperlipidemia type: unspecified Qualified Code(s): E78.5 - Hyperlipidemia, unspecified Plan: Avoid fried foods, chicken skin, eggs, butter margarine, pastries and meat. Be it pork or beef they have a lot of cholesterol LDL goal of less than 70 and triglyceride of less than 150 on atorvastatin 40 mg once a (6) Type 2 diabetes mellitus with hyperglycemia: Code(s): E11.65 - Type 2 diabetes mellitus with hyperglycemia Qualifiers: Diabetes mellitus custodial insulin use: without intermodal dispatcher use Qualified Code(s): E11.65 - Type 2 diabetes mellitus with hyperglycemia (7) Osteoporosis: Code(s): M81.0 - Age-related osteoporosis without current pathological fracture (8) Type 2 diabetes mellitus with hyperglycemia: Code(s): E11.65 - Type 2 diabetes mellitus with hyperglycemia Qualifiers: Diabetes mellitus custodial insulin use: without intermodal dispatcher use Qualified Code(s): E11.65 - Type 2 diabetes mellitus with hyperglycemia (9) Pancreatic lesion: Code(s): K86.9 - Disease of pancreas, unspecified Orders: Orders AMB Hemoglobin A1c Today E11.9 - Type 2 diabetes mellitus without complications B Type Natriuretic Peptide Today I50.23 - Acute on chronic systolic (congestive) heart failure Comprehensive Met. Panel Today I50.23 - Acute on chronic systolic (congestive) heart failure Referrals Gastroenterology Referral K86.9 - Disease of pancreas, unspecified Medications: New empagliflozin (Jardiance) 10 mg PO DAILY 90 tabs 1RF E11.65 - Type 2 diabetes mellitus with hyperglycemia cholecalciferol (vitamin D3) 25 mcg PO DAILY 90 caps 1RF M81.0 - Age-related osteoporosis without current pathological fracture Changed From alprazolam 0.25 mg PO DAILY 30 days 30 tabs 0RF anxiety F41.1 - Generalized anxiety disorder To alprazolam 0.25 mg PO DAILY 90 days 90 tabs 0RF anxiety F41.1 - Generalized anxiety disorder Coding Level of Care Code Est Pt Level 4 (39523) Diagnoses Atrial fibrillation with RVR I48.91 Acute diverticulitis of intestine K57.92 CHF (congestive heart failure) I50.23 Heart failure chronicity: acute on chronic Heart failure type: systolic Essential hypertension I10 Hyperlipidemia, unspecified hyperlipidemia type E78.5 Hyperlipidemia type: unspecified Type 2 diabetes mellitus with hyperglycemia, without long-term current use of insulin E11.65 Diabetes mellitus custodial insulin use: without intermodal dispatcher use Osteoporosis M81.0 Pancreatic lesion K86.9
== END 2024-02-04 12:18 | disposition home or self-care (01) ==
PROVIDERS: PCP Internal Medicine; Visit Provider Internal Medicine
DX: I48.91 Unspecified atrial fibrillation (principal); I50.23 Acute on chronic systolic (congestive) heart failure; E11.65 Type 2 diabetes mellitus with hyperglycemia; E11.69 Type 2 diabetes mellitus with other specified complication; K57.92 Diverticulitis of intestine, part unspecified, without perforation or abscess without bleeding; I10 Essential (primary) hypertension; E78.5 Hyperlipidemia, unspecified; M81.0 Age-related osteoporosis without current pathological fracture; K86.9 Disease of pancreas, unspecified
CPT/HCPCS: 83036; 99214

== ENCOUNTER 2024-02-12 11:12 | Outpatient (REF) | payer MEDICARE, OTHER, SELFPAY ==
[2024-02-12 11:38] LABS: B Type Natriuretic Peptide 725 pg/mL (<100)
[2024-02-12 11:41] LABS: Estimated Average Glucose 148 mg/dL; Hemoglobin A1C 150.6301 umol/L; Hemoglobin A1c % 6.8 % (<6.0)
[2024-02-12 12:24] LABS: Alanine Aminotransferase 29 U/L (0-31); Albumin Level 3.7 g/dL (3.5-5.0); Alkaline Phosphatase 133 U/L (39-117); Anion Gap 14 (12-20); Aspartate Amino Transferase 28 U/L (5-31); Bilirubin Total 0.7 mg/dL (0.0-1.0); Blood Urea Nitrogen 12 mg/dL (9-16); Calcium 9.3 mg/dL (8.4-10.2); Carbon Dioxide 25 mmol/L (22-29); Chloride 110 mmol/L (96-108); Estimated Glomerular Filt Rate 59; Glucose Random 153 mg/dL (60-115); Potassium 3.8 mmol/L (3.3-5.1); Sodium 145 mmol/L (135-145); Total Protein 6.7 g/dL (6.5-8.0)
== END 2024-02-12 11:13 | disposition home or self-care (01) ==
LOC: HO.HVNA 11:12
PROVIDERS: Visit Provider Internal Medicine
DX: Z13.89 Encounter for screening for other disorder (principal)
CPT/HCPCS: 36415; 80053; 83036; 83880

== ENCOUNTER 2024-02-15 09:57 | Inpatient (IN) | payer MEDICARE, OTHER, SELFPAY ==
[2024-02-15] VITALS (10 sets, daily range): BP systolic 126–162; BP diastolic 60–92; PULSE 79–112; RESP 14–25; TEMP 36.3–36.7; O2SAT 89–97; BMI 31.7; BMI 31.8
--- NOTE | 2024-02-15 | ECG_ITS ---
Test Reason : SOB Blood Pressure : / mmHG Vent. Rate : 109 BPM Atrial Rate : 000 BPM P-R Int : 000 ms QRS Dur : 082 ms QT Int : 348 ms P-R-T Axes : 000 -11 042 degrees QTc Int : 468 ms Atrial fibrillation with rapid ventricular response with premature ventricular or aberrantly conducted complexes Possible Anterior infarct (cited on or before 22-JUN-2019) Abnormal ECG When compared with ECG of 16-JAN-2024 08:45, No significant change was found Referred By: Rehana Figueroa Electronically Signed By:CANDELARIO COOK
--- NOTE | ~2024-02-15 | XR_ITS ---
EXAMINATION: XR CHEST CLINICAL INFORMATION: Shortness of COMPARISON: 01/16/2024 and selected priors TECHNIQUE: AP portable upright (x12 Clinical history view of the chest was obtained. FINDINGS: Low lung volumes. Associated distortion of the heart and mediastinum. Interval improvement in pulmonary edema. No focal pneumonia. Lung bases not optimally evaluated. No gross effusion or pneumothorax. Nonobstructive gas pattern. Positional scoliosis. XR/XR chest 1V IMPRESSION: Low lung volumes. Suboptimal evaluation of the lung bases. Electronically signed by: Shreyas Acosta MD 02/15/2024 02:09 PM EDT
--- NOTE | ~2024-02-15 | XR_ITS ---
EXAMINATION: XR RIBS, BILATERAL CLINICAL INFORMATION: Weakness for 4 days, increasing shortness of breath, history of A. fib and CHF per project manager finance Serge, technologist. COMPARISON: 02/15/2024 chest radiograph. TECHNIQUE: 5 views of the bilateral ribs. FINDINGS: There is no gross pneumothorax. Cardiac silhouette is enlarged. Small bilateral pleural effusions. Stable cardiomediastinal silhouette. Increased mild diffuse interstitial opacities and mild bibasilar opacities. Deformity along the posterolateral aspect of the left 9th rib is characteristic of a prior fracture. Deformity along the posterior aspect of the right 11th rib is characteristic of prior fracture. XR/XR ribs BI min 4V w CXR1V IMPRESSION: 1. Deformity along the posterolateral aspect of the left 9th rib is characteristic of a prior fracture. Deformity along the posterior aspect of right 11th rib is characteristic of prior fracture. 2. Increased mild diffuse interstitial opacities and mild bibasilar opacities. 3. Small bilateral pleural effusions. This study was presented today, February 17, 2024, for interpretation. Stat results provided at this time as requested by referring provider. Electronically signed by: Susan Rader MD 02/17/2024 10:15 AM EDT
--- NOTE | ~2024-02-15 | CT_ITS ---
EXAMINATION: CT ABDOMEN AND PELVIS WITH CONTRAST CLINICAL INFORMATION: Diffuse abdominal tenderness, urinary retention COMPARISON: 01/16/2024 TECHNIQUE: Multidetector volumetric images were obtained from the superior aspect of the liver through the pubic symphysis following administration 85 mL of Omnipaque 350 intravenous contrast. Sagittal and coronal reformatted images were obtained on the technologist's workstation. Oral contrast: No This CT examination was performed using dose optimization techniques as appropriate, variously including the following: *Automated exposure control *Adjustment of mA and/or kV according to patient size (this includes techniques or standardized protocols for targeted exams where dose is matched to indication/reason for exam; i.e. extremities or head) *Use of iterative reconstruction technique DLP: 566 mGy-cm FINDINGS: LUNG BASES: Trace bilateral pleural effusions with bibasilar atelectasis. LIVER, GALLBLADDER, AND BILIARY TREE: The liver is normal in size, shape, and attenuation. No biliary ductal dilatation is present. Stable hepatic cysts. Status post cholecystectomy PANCREAS: Diffuse atrophy of the pancreas. There is a cyst is seen in the region of the uncinate process measuring 2.8 x 2.1 cm measuring simple fluid density which is stable. SPLEEN: Unremarkable. ADRENAL GLANDS: Stable nodular thickening of the left adrenal gland compared to the right. KIDNEYS AND URETERS: The kidneys are normal in size, shape, and attenuation. No hydronephrosis, hydroureter, or calculi seen. No perinephric stranding. Innumerable bilateral renal cysts are again seen which are stable in number and size. No follow-up indicated. BLADDER: Partially decompressed by a Patel catheter GASTROINTESTINAL TRACT: The small bowel are unremarkable. Extensive diverticula seen throughout the colon without evidence of acute diverticulitis. The appendix is unremarkable. ABDOMINAL WALL: No significant hernia is appreciated. LYMPH NODES: Normal. VASCULAR: Abdominal aorta is normal in caliber. Extensive atherosclerotic calcified plaque in the abdominal aorta and bilateral iliac arteries. PELVIC VISCERA: Status post hysterectomy. No adnexal mass lesions OSSEOUS STRUCTURES: There is a scoliosis of the lumbar spine. Diffuse degenerative disc disease and facet joint arthropathy throughout the visualized spine. CT/CT abdomen pelvis w IV con IMPRESSION: 1. No acute process. 2. Stable hepatic and renal cysts. 3. Stable pancreatic cyst. 4. Extensive colonic diverticulosis without acute diverticulitis. 5. Trace bilateral pleural effusions with bibasilar atelectasis. 6. Atherosclerotic disease Electronically signed by: Stanton Hackett MD 02/15/2024 02:19 PM EDT RP
[2024-02-15 10:23] LABS: Appearance Urine Clear; Color Urine Yellow; Glucose Urine UA Negative (Negative); Leukocyte Esterase Urine Trace (Negative); Nitrite Urine Negative (Negative); PH 7.5 (5.0-9.0); Specific Gravity - Urine <= 1.005 (1.005-1.025); UMIC TRIGGER UACC YES; Urine Blood Negative (Negative); Urine Ketones Negative (Negative); Urine Protein Negative (Neg-Trace)
--- NOTE | 2024-02-15 10:24 | PC.NURSE ---
patient arrives via EMS from home with cc of generalized weakness for the last 4 days, patient states she has been feeling more short of breath than normal, urinating more, and that she is having a difficult time walking around in her apartment. patient with hx of afib and chf, states she takes a blood thinner at home and she takes lasix, some mild edema appreciated in BLE, mild expiratory wheezes also appreciated in lower lung bases. patient alert and oriented x4, speaking in clear and complete sentences, placed on color television console monitor, afib rhythm noticed. patient ambulated to bathroom with assistance from EDT and provided urine sample, sent to lab at this time. provider at bedside. plan of care ongoing
[2024-02-15 10:25] LABS: Bacteria Urine None Seen (None Seen); Hyaline Casts Urine 0-2 /LPF (0-2); RBC Urine 0-2 /HPF (0-2); Squamous Epithelial Cell Urine 0-2 /HPF (0-2); WBC Urine 0-5 /HPF (0-5)
[2024-02-15 11:13] LABS: MANUAL DIFF FLAG NO
[2024-02-15 11:16] LABS: Basophils Percent Auto 0.3 % (0-2); Eosinophils Absolute Auto 0.1 X10*3/uL (0.0-0.4); Eosinophils Percent Auto 1.7 % (0-4); Hematocrit 37.6 % (37.0-47.0); Hemoglobin 12.3 g/dl (12.0-16.0); Imm Gran Abs Auto 0.03 X10*3/uL (0.00-0.03); Imm Gran Pct Auto 0.4 % (0.0-0.4); Lymphocytes Absolute Auto 1.7 X10*3/uL (1.2-4.9); Lymphocytes Percent Auto 21.8 % (20-40); Mean Corpuscular HGB Conc 32.7 g/dl (31.0-35.0); Mean Corpuscular Hemoglobin 29.6 pg (27.0-33.0); Mean Corpuscular Volume 90.6 fL (80.0-98.0); Mean Platelet Volume 11.5 fL (9.4-12.3); Monocytes Absolute Auto 0.9 X10*3/uL (0.1-1.2); Monocytes Percent Auto 11.3 % (2-11); Neutrophils Percent Auto 64.5 % (45-73); Platelet Count 224 X10*3/uL (160-400); Red Blood Count 4.15 X10*6/uL (4.20-5.50); Red Cell Distribution Width 15.8 % (11.0-16.0); White Blood Count 7.7 X10*3/uL (4.8-10.8)
[2024-02-15 11:21] LABS: IDNOW Serial# 08D9AD1C
[2024-02-15 11:22] LABS: Strep A Nucleic Acid Negative (Negative)
--- NOTE | 2024-02-15 11:36 | ED.GENADULT ---
HPI - General Adult General Chief complaint: General Medical Stated complaint: WEAKNESS X 3 DAYS Time Seen by Provider: 02/15/24 10:03 Source: patient and EMS Mode of arrival: EMS Limitations: no limitations History of Present Illness ED Provider: Kasie Figueroa PA-C HPI narrative: 88-year-old female with a history of atrial fibrillation on Eliquis, history of type 2 diabetes, dementia, CHF, aortic stenosis, anemia, pleural effusion, asthma, CAD, anxiety, unsteady gait, diabetic neuropathy, GERD, osteoporosis, HTN who presents to the ER from home for evaluation of generalized weakness, difficulty ambulating along with shortness of breath and frequent urination for the last 2-3 days. She states she has had increased polyuria, polydipsia, urgency and frequency. She sometimes urinates very large amounts and sometimes very small amounts. She denies any burning with urination or blood in her urine. She reports suprapubic pain associated with this but no other abdominal pain. No nausea, vomiting, diarrhea. She reports shortness of breath, worse with exertion. Additionally, she endorses a sore throat and painful swallowing for the last week. She has been compliant with her diuretics, all of her cardiac medications and diabetic medications. MD complaint: Increased urination, generalized weakness Onset (ago): day(s) Related Data Home Medications ?Medication ?Instructions ?Recorded ?Confirmed cyanocobalamin (vitamin B-12) 1,000 mcg PO DAILY 08/06/23 01/20/24 1,000 mcg tablet (Vitamin B-12) tramadol 50 mg tablet 50 mg PO DAILY PRN Pain 08/06/23 01/20/24 blood-glucose meter (OneTouch 01/07/24 01/20/24 Verio Flex Start kit) albuterol sulfate 90 mcg/actuation 1 puff inhalation QID 01/10/24 01/20/24 aerosol inhaler atorvastatin 40 mg tablet (Lipitor) 40 mg PO BEDTIME 01/10/24 01/20/24 dexlansoprazole 60 mg 60 mg PO DAILY@0630 01/10/24 01/20/24 capsule,biphase delayed release (Dexilant) diclofenac sodium 1 % topical gel 4 g topical QID PRN Pain 01/10/24 01/20/24 (Arthritis Pain (diclofenac)) docusate sodium 100 mg capsule 100 mg PO BID PRN Constipation 01/10/24 01/20/24 montelukast 10 mg tablet 10 mg PO BEDTIME 01/10/24 01/20/24 (Singulair) Previous Rx's ?Medication ?Instructions ?Recorded pediatric front wheel walker #1 ea 09/02/23 PEDIATRIC FRONT WHEELED WALKER #1 ea 09/18/23 apixaban 2.5 mg tablet (Eliquis) 2.5 mg PO BID #180 tabs 09/22/23 lancets 28 gauge (FreeStyle #100 ea 11/17/23 Lancets) furosemide 40 mg tablet 40 mg PO DAILY #90 tabs 12/19/23 metoprolol succinate 50 mg 50 mg PO DAILY 90 days #90 tabs 12/19/23 tablet,extended release 24 hr pregabalin 100 mg capsule 100 mg PO Q12H 30 days #60 caps 12/19/23 folic acid 1 mg tablet 1 mg PO DAILY #90 tabs 01/02/24 ascorbic acid (vitamin C) 500 mg 500 mg PO DAILY #90 tabs 01/09/24 tablet (Vitamin C) amoxicillin 500 mg-potassium 1 tab PO Q12H #5 tabs 01/19/24 clavulanate 125 mg tablet zolpidem 5 mg tablet 5 mg PO BEDTIME PRN insomnia #90 01/20/24 tabs alprazolam 0.25 mg tablet 0.25 mg PO DAILY anxiety 90 days 02/04/24 #90 tabs cholecalciferol (vitamin D3) 25 25 mcg PO DAILY #90 caps 02/04/24 mcg (1,000 unit) capsule empagliflozin 10 mg tablet 10 mg PO DAILY #90 tabs 02/04/24 (Jardiance) Allergies Allergy/AdvReac Type Severity Reaction Status Date / Time ciprofloxacin Allergy Severe unknown Verified 02/15/24 10:12 aspirin [Aspirin] Allergy Unknown UNKNOWN Verified 02/15/24 10:12 cefuroxime Allergy Unknown Unknown Verified 02/15/24 10:12 celecoxib [From Celebrex] Allergy Unknown UNKNOWN Verified 02/15/24 10:12 metformin Allergy Unknown diarrhea Verified 02/15/24 10:12 risedronate sodium Allergy Unknown UNKNOWN Verified 02/15/24 10:12 [From Actonel] Sulfa (Sulfonamide Allergy Unknown unknown Verified 02/15/24 10:12 Antibiotics) bupropion AdvReac Intermediate tremor Verified 02/15/24 10:12 ferrous sulfate AdvReac Intermediate tremors Verified 02/15/24 10:12 sertraline AdvReac Intermediate tremors Verified 02/15/24 10:12 Review of Systems Review of Systems: Yes all other systems are reviewed and are negative [facility], [facility] Past Medical History Medical History Type 2 diabetes mellitus with hyperglycemia Diabetes mellitus Asthma Hypokalemia Hypomagnesemia Diarrhea Hearing difficulty Dyspnea on exertion History of gastrointestinal diverticular hemorrhage COVID-19 virus infection Rectal bleeding Medicare annual wellness visit, initial Hip pain, left Patellar sleeve fracture of right knee Knee pain, right Nausea and vomiting Coarse tremors Shoulder pain, right Hospital discharge follow-up Mass on back Constipation Tinea corporis Nausea Right wrist pain Left knee pain Left hip pain Toe pain, left Breast cancer screening by mammogram UTI (urinary tract infection) Obesity (BMI 30-39.9) Lipoma of lower back Urinary frequency Toe fracture, left Pancreatic cyst Osteoporosis Peptic ulcer disease Urinary incontinence Rectal incontinence GERD (gastroesophageal reflux disease) Bile salt-induced diarrhea Vaginal prolapse Renal artery stenosis Asthma Lumbar degenerative disc disease Insomnia TIA (transient ischemic attack) Hyperlipidemia, unspecified Essential hypertension Surgical History Hx of colonoscopy History of esophagogastroduodenoscopy (EGD) History of removal of cyst (~10/17/21) History of hemorrhoidectomy History of colectomy History of section History of hysterectomy History of appendectomy History of cholecystectomy Family History Family History Father Cancer Arterial thrombosis Mother Multiple sclerosis Muscular dystrophy Hypertension Depression Chronic mental illness Mental health disorder Brother No problems noted. Brother Gangrene Sister No problems noted. Son No problems noted. Son No problems noted. Son No problems noted. Son No problems noted. Daughter No problems noted. Daughter No problems noted. Daughter No problems noted. Social History Social History Household Members: None Housing: Apartment Do you presently have visiting nurse or other home services: No Alcohol intake: former Comment: 1:1 sitter Patient Tobacco Use Status: Former Tobacco user Tobacco use type: Cigarette Years Smoked: 22 Smoked in Last 30 Days: No e-Cigarette/Vaping Use: Former Use Second Hand Smoke Exposure: No Use of substances other than those prescribed or required for medical reasons: No Advance Directives: Yes Advance Directives on File: Yes Advance Directives Date on File: 08/06/23 Do you have a plan to hurt others: No Plan service: No Current occupational status: disabled Current occupational exposures/hazards: No Cognitive needs: Yes Hearing needs: Yes Vision needs: Yes Physical Exam ED Vital Signs: Vital Signs - 24 hr 02/15/24 10:11 02/15/24 10:27 02/15/24 10:30 Temperature 98.0 F 98.0 F Pulse Rate 112 H 112 H Pulse Rate [Monitor] 112 H Respiratory Rate 15 15 Blood Pressure 162/86 H 162/86 H Pulse Oximetry 96 96 Oxygen Delivery Method Room Air Room Air 02/15/24 12:48 02/15/24 14:21 02/15/24 14:26 Temperature Pulse Rate 111 H 85 Pulse Rate [Monitor] Respiratory Rate 16 25 H Blood Pressure 137/86 Pulse Oximetry 91 L 97 Oxygen Delivery Method Room Air Room Air BMI result Body Mass Index 31.7 Appearance: appears pale, awake, alert, and oriented x3, in no acute distress Eyes: EOMI, anicteria ENT: Pharynx normal. No tonsillar swelling or exudate. Dry mucus membranes CVS: irregular rate and rhythm, + blowing murmur, HR 100s Respiratory: end expiratory wheezing noted equal throughout all lung bridges, appears short of breath though no accessory muscle use appreciated Abdomen: soft though tender to palpation in the suprapubic area, normal active BS Skin: Skin warm and dry. Pale in color. No rashes. Extremities: mild bilateral lower extremity edema from the knee down that patient notes is her baseline Neuro/psych: Oriented X 3. No motor deficit. No sensory deficit. Normal speech and cognition. Medications Administered Discontinued Medications Generic Name Dose Route Start Last Admin Trade Name Freq PRN Reason Stop Dose Admin Albuterol/Ipratropium 3 ml 02/15/24 12:37 02/15/24 12:46 Albuterol/Iprat 2.5/0.5mg 3 Ml Ampul.Neb INHALE 02/15/24 12:38 3 ml ONCE ONE Administration Iohexol 85 ml 02/15/24 13:12 02/15/24 13:13 Iohexol 350 Mg/Ml 75 Ml Infus..Btl IV 02/15/24 13:13 85 ml ONCE ONE Administration Morphine Sulfate 3 mg 02/15/24 14:12 02/15/24 14:42 Morphine Sulfate 4 Mg/Ml Cartridge IVPUSH 02/15/24 14:13 3 mg ONCE ONE Administration Protocol Medical Decision Making Medical Decision Making [facility] Narrative: Karli is an 88 year old female with a past medical history of atrial fibrillation on Eliquis, history of type 2 diabetes, dementia, CHF, aortic stenosis, anemia, pleural effusion, asthma, CAD, anxiety, unsteady gait, diabetic neuropathy, GERD, osteoporosis, HTN who presents to the ER from home for evaluation of generalized weakness, difficulty ambulating along with shortness of breath and frequent urination for the last 2-3 days. Vitals upon arrival revealed hypertension at 162/86 as well as tachycardia at 112 bpm, but were otherwise stable. Initial lab work including a CMP and CBC were largely unremarkable, though her BNP was noted to be elevated at 731. A UA was also performed as the patient noted increased frequency and revealed a low specific gravity at <1.005, as well as a markedly low urine osmolality at 207, though was largely negative for signs of an infectious process. Influenza, RSV, COVID, and S. pyogenes tests were all negative. A CXR was also performed due to the patient endorsing shortness of breath and revealed low lung volumes, but no acute pathology. A CT of the abdomen/pelvis was performed as the patient endorsed suprapubic tenderness which also revealed no acute pathology. At this time, the direct etiology, or etiologies, of the patient's symptoms are unclear. A urinary tract infection is of low clinical suspicion as her only relevant symptom is frequent urination, she remains afebrile and her UA came back without any signs of an infectious process. Her symptoms of shortness of breath as well as weakness could be attributed to a CHF exacerbation, as she did have an elevated BNP of 731 as well as increased shortness of breath. This however is less clinically suspicious, as the patient notes she reliably takes her diuretic, Lasix, denies any recent weight gain, is not more edematous than her baseline, and her CXR showed no signs of pulmonary edema. An exacerbation of asthma/COPD could also be contributing to her symptoms of shortness of breath and weakness, as she had end expiratory wheezes that were equal bilaterally throughout all lung bridges. She did receive a DuoNeb treatment which she states made her shortness of breath a little better, though her lung sounds were unchanged. The diagnosis of SIADH was initially considered, as the patient was experiencing polydipsia and polyuria, though her sodium actually resulted on the high end of normal at 145, making this less likely. The diagnosis of diabetes insipidus (DI) was also considered given the patient's polydipsia and polyuria and the results of her UA showing a gravity of <1.005 and a urine osmolality of 207 help support this diagnosis. It is unclear what the etiology of this would be at this time, though a serum osmolality has been ordered for further work up. The diagnoses of SIADH and DI would, however, not explain the patient's shortness of breath. The plan for the patient is to be admitted for further management as well as a nephrology consult for further work up of her polyuria and polydipsia. At this time, the most clinically suspicious diagnoses for the patient's symptoms include diabetes insipidus with concurrent asthma/COPD exacerbation. Differential Diagnosis Differential Diagnoses: The differential diagnosis associated with the presentation includes UTI, diabetes insipidus, SIADH, CHF exacerbation, asthma/COPD exacerbation, weakness of unclear etiology, urinary retention Admission/Observation Consideration of admission/observation: Escalation of care including admission/observation considered Consult Healthcare Provider Management of the patient was discussed with: Hospitalist Lab Data MDM Lab Attestation statement: I reviewed the patient's lab results. no leukocytosis, normal function 02/15/24 10:37 02/15/24 10:37 Labs: Lab Results 02/15/24 02/15/24 Range/Units 10:17 10:37 WBC 7.7 (4.8-10.8) X10*3/uL RBC 4.15 L (4.20-5.50) X10*6/uL Hgb 12.3 (12.0-16.0) g/dl Hct 37.6 (37.0-47.0) % MCV 90.6 (80.0-98.0) fL MCH 29.6 (27.0-33.0) pg MCHC 32.7 (31.0-35.0) g/dl RDW 15.8 (11.0-16.0) % Plt Count 224 (160-400) X10*3/uL MPV 11.5 (9.4-12.3) fL Immature Gran % (Auto) 0.4 (0.0-0.4) % Neut % (Auto) 64.5 (45-73) % Lymph % (Auto) 21.8 (20-40) % Delta % (Auto) 11.3 H (2-11) % Eos % (Auto) 1.7 (0-4) % Baso % (Auto) 0.3 (0-2) % Lymph # (Auto) 1.7 (1.2-4.9) X10*3/uL Delta # (Auto) 0.9 (0.1-1.2) X10*3/uL Eos # (Auto) 0.1 (0.0-0.4) X10*3/uL Baso # (Auto) 0.0 (0.0-0.2) X10*3/uL Abs Immat Gran (auto) 0.03 (0.00-0.03) X10*3/uL Absolute Neuts (auto) 5.0 (2.0-8.3) x10*3/uL Absolute Nucleated RBC 0.000 (0.0-0.012) X10*3/uL Nucleated RBC % (auto) 0.0 (0.0-0.2) /100WBC Sodium 145 (135-145) mmol/L Potassium 4.0 (3.3-5.1) mmol/L Chloride 109 H (96-108) mmol/L Carbon Dioxide 24 (22-29) mmol/L Anion Gap 16 (12-20) BUN 15 (9-16) mg/dL Creatinine 1.04 (0.5-1.4) mg/dL Estim Creat Clear Calc 33.3 Estimated GFR 50 Random Glucose 160 H (60-115) mg/dL Calcium 9.7 (8.4-10.2) mg/dL Magnesium 1.8 (1.6-2.6) mg/dL Total Bilirubin 1.1 H (0.0-1.0) mg/dL Direct Bilirubin 0.3 (0.0-0.5) mg/dL AST 23 (5-31) U/L ALT 18 (0-31) U/L Alkaline Phosphatase 125 H (39-117) U/L Troponin I High Sens 3.6 (<3.5-17.0) ng/L B-Natriuretic Peptide 731 H (<100) pg/mL Total Protein 6.7 (6.5-8.0) g/dL Albumin 3.7 (3.5-5.0) g/dL Urine Color Yellow Urine Appearance Clear Urine pH 7.5 (5.0-9.0) Ur Specific [place] <= 1.005 (1.005-1.025) Urine Protein Negative (Neg-Trace) mg/dL Urine Glucose (UA) Negative (Negative) mg/dL Urine Ketones Negative (Negative) mg/dL Urine Blood Negative (Negative) Urine Nitrite Negative (Negative) Ur Leukocyte Esterase Trace H (Negative) Urine RBC 0-2 (0-2) /HPF Urine WBC 0-5 (0-5) /HPF Ur Squamous Epith Cells 0-2 (0-2) /HPF Urine Bacteria None Seen (None Seen) Hyaline Casts 0-2 (0-2) /LPF Urine Osmolality 207 L (373-1093) mosm/kg Ur Random Sodium 86.0 mmol/L Influenza Type A (PCR) NEGATIVE (Negative) Influenza Type B (PCR) NEGATIVE (Negative) RSV RNA Qual (PCR) NEGATIVE (Negative) SARS-CoV-2 RNA (RT-PCR) NEGATIVE (Negative) S. pyogenes GrpA ASHLEY Negative (Negative) Independent Interpretation I performed an independent interpretation of an: EKG, Plain X-Ray and CT Scan Interpretation: cxr without over pulm edema EKG with rapid AFib, ventricular rate 109 beats per minute, no ST segment elevations or depressions. Radiology Impression Discussion of test interpretation with radiology: I have reviewed the radiologist's reading. Radiologist Impression: XR/XR chest 1V IMPRESSION: Low lung volumes. Suboptimal evaluation of the lung bases. CT/CT abdomen pelvis w IV con: IMPRESSION: 1. No acute process. 2. Stable hepatic and renal cysts. 3. Stable pancreatic cyst. 4. Extensive colonic diverticulosis without acute diverticulitis. 5. Trace bilateral pleural effusions with bibasilar atelectasis. 6. Atherosclerotic disease Independent Historian Clinical information obtained from an independent historian. History obtained from or confirmed by: EMS External Record Review External record reviewed: Inpatient record, Office record, Outpatient record, Prior outpatient labs and Prior outpatient radiology Prescription Management I considered prescription management with: Pain Medication, Antibiotic and Other (diuretics) Chronic Conditions Patient?s care impacted by: Hypertension and Other (Afib, CHF) Social Determinants Patient?s care significantly limited by Social Determinants of Health including: Problems related to primary support group Critical Care Time Critical Care Time Critical Care Time: Yes Total Critical Care Time: 45 Attestation: I have personally provided critical care time exclusive of time spent on separately billable procedures. Time includes review of lab data, radiology results, discussion with consultants, and monitoring for potential decompensation. Intervention performed as documented. Discharge Plan Discharge Clinical Impression: Acute urinary retention, Atrial fibrillation with RVR, Weakness Patient Disposition: Admitted As Inpatient
[2024-02-15 11:37] LABS: B Type Natriuretic Peptide 731 pg/mL (<100); Troponin-I High Sensitivity 3.6 ng/L (<3.5-17.0)
[2024-02-15 11:38] LABS: Osmolality Urine 207 mosm/kg (373-1093)
[2024-02-15 11:41] LABS: Alanine Aminotransferase 18 U/L (0-31); Albumin Level 3.7 g/dL (3.5-5.0); Alkaline Phosphatase 125 U/L (39-117); Anion Gap 16 (12-20); Aspartate Amino Transferase 23 U/L (5-31); Bilirubin Direct 0.3 mg/dL (0.0-0.5); Bilirubin Total 1.1 mg/dL (0.0-1.0); Blood Urea Nitrogen 15 mg/dL (9-16); Calcium 9.7 mg/dL (8.4-10.2); Carbon Dioxide 24 mmol/L (22-29); Chloride 109 mmol/L (96-108); Creatinine Clr Calc Pharmacy 33.3; Estimated Glomerular Filt Rate 50; Glucose Random 160 mg/dL (60-115); Magnesium 1.8 mg/dL (1.6-2.6); Sodium 145 mmol/L (135-145); Total Protein 6.7 g/dL (6.5-8.0)
--- NOTE | 2024-02-15 11:45 | PC.NURSE ---
patient stating to this rn that she needs to use the restroom again, this RN educated patient that it is not currently safe for her to walk to the bathroom as she has weakness in her legs, she is short of breath, and her heartrate is elevated, provider at bedside and agrees with this RN that patient is not to get up out of bed, patient tearful to this answer, patient placed on bedpan and voided a small amount of urine, bladder scan completed and patient noted to have >700mL of urine in her bladder, per provider OK to place lamar catheter
[2024-02-15 11:52] LABS: Influenza A PCR NEGATIVE (Negative); Influenza B PCR NEGATIVE (Negative); Resp Syncy Virus RNA Qual PCR NEGATIVE (Negative); SARS COV2 PCR INHOUSE NEGATIVE (Negative)
[2024-02-15] MEDS: Albuterol/Iprat 2.5/0.5MG 3 ML AMPUL.NEB INHALE ×3 (12:46→19:27)
[2024-02-15] MEDS: iohexoL 350 MG/ML 75 ML INFUS..BTL 85 ML IV (13:13)
[2024-02-15] MEDS: Morphine Sulfate 4 MG/ML CARTRIDGE 3 MG IVPUSH (14:42)
--- NOTE | 2024-02-15 15:17 | PM.IMHP ---
History of Present Illness Date of Service: 02/15/24 Attending physician on admission: Quan Caldwell Chief Complaint: weakness, sob 88 year old female with history of anxiety, htn, paf on eliquis, hfpef, [id number] type 2 diabetes, CKD stage 3, history of lower GI bleed, iron deficiency anemia, osteoporosis, GERD, diabetic polyneuropathy, COPD who is a former smoker presented to the ED for evaluation of generalized weakness, frequent urination, and dyspnea ongoing for 2-3 days. Has polyuria, polysdipsia. Compliant with diuretics. She is experiencing diffuse abd pain, worse in the suprapubic area. No fevers, chills, nausea, vomiting, diarrhea, edema, orthopnea, lightheadedness, palpitations, or chest pain. has been eating and drinking without difficulty. On arrival, pt hypertensive, tachycardic to 112, vitals otherwise stable. Hematology studies unremarkable. Renal function baseline, electrolyte levels normal except for chloride 109. Glucose 160. Troponin 3.6. BNP 731 . Urinalysis with specific gravity less than 1.005, urine osmolality 207, urine sodium 86. Negative for COVID, RSV, flu. Negative for strep throat. CXR shows low lung volumes, no effusions and improvement noted in edema. CT abdomen/pelvis negative for acute intracranial abnormality shows stable pancreatic cysts, stable hepatic and renal cysts and extensive colonic diverticulosis without acute diverticulitis. There are trace bilateral pleural effusions and bibasilar atelectasis. Review of Systems Review of Systems: Yes all other systems are reviewed and are negative [facility] Medical History Type 2 diabetes mellitus with hyperglycemia Diabetes mellitus Asthma Hypokalemia Hypomagnesemia Diarrhea Hearing difficulty Dyspnea on exertion History of gastrointestinal diverticular hemorrhage COVID-19 virus infection Rectal bleeding Medicare annual wellness visit, initial Hip pain, left Patellar sleeve fracture of right knee Knee pain, right Nausea and vomiting Coarse tremors Shoulder pain, right Hospital discharge follow-up Mass on back Constipation Tinea corporis Nausea Right wrist pain Left knee pain Left hip pain Toe pain, left Breast cancer screening by mammogram UTI (urinary tract infection) Obesity (BMI 30-39.9) Lipoma of lower back Urinary frequency Toe fracture, left Pancreatic cyst Osteoporosis Peptic ulcer disease Urinary incontinence Rectal incontinence GERD (gastroesophageal reflux disease) Bile salt-induced diarrhea Vaginal prolapse Renal artery stenosis Asthma Lumbar degenerative disc disease Insomnia TIA (transient ischemic attack) Hyperlipidemia, unspecified Essential hypertension Family History Father Cancer Arterial thrombosis Mother Multiple sclerosis Muscular dystrophy Hypertension Depression Chronic mental illness Mental health disorder Brother No problems noted. Brother Gangrene Sister No problems noted. Son No problems noted. Son No problems noted. Son No problems noted. Son No problems noted. Daughter No problems noted. Daughter No problems noted. Daughter No problems noted. Surgical History Hx of colonoscopy History of esophagogastroduodenoscopy (EGD) History of removal of cyst (~10/17/21) History of hemorrhoidectomy History of colectomy History of section History of hysterectomy History of appendectomy History of cholecystectomy Social History Household Members: None Housing: Apartment Do you presently have visiting nurse or other home services: No Alcohol intake: former Comment: 1:1 sitter Patient Tobacco Use Status: Former Tobacco user Tobacco use type: Cigarette Years Smoked: 22 Smoked in Last 30 Days: No e-Cigarette/Vaping Use: Former Use Second Hand Smoke Exposure: No Use of substances other than those prescribed or required for medical reasons: No Advance Directives: Yes Advance Directives on File: Yes Advance Directives Date on File: 08/06/23 Do you have a plan to hurt others: No Plan service: No Current occupational status: disabled Current occupational exposures/hazards: No Cognitive needs: Yes Hearing needs: Yes Vision needs: Yes Meds Allergies Allergy/AdvReac Type Severity Reaction Status Date / Time ciprofloxacin Allergy Severe unknown Verified 02/15/24 10:12 aspirin [Aspirin] Allergy Unknown UNKNOWN Verified 02/15/24 10:12 cefuroxime Allergy Unknown Unknown Verified 02/15/24 10:12 celecoxib [From Celebrex] Allergy Unknown UNKNOWN Verified 02/15/24 10:12 metformin Allergy Unknown diarrhea Verified 02/15/24 10:12 risedronate sodium Allergy Unknown UNKNOWN Verified 02/15/24 10:12 [From Actonel] Sulfa (Sulfonamide Allergy Unknown unknown Verified 02/15/24 10:12 Antibiotics) bupropion AdvReac Intermediate tremor Verified 02/15/24 10:12 ferrous sulfate AdvReac Intermediate tremors Verified 02/15/24 10:12 sertraline AdvReac Intermediate tremors Verified 02/15/24 10:12 Active Medications: Current Medications Acetaminophen (Acetaminophen 325 Mg Tablet) 650 mg PO Q6H PRN PRN Reason: Pain, Mild (Pain Scale 1-3), fever or headache Calcium Carbonate (Calcium Carbonate 750 Mg Tab.Chew) 750 mg PO Q4H PRN PRN Reason: Heartburn Sodium Chloride (Ns) 500 mls @ 500 mls/hr IV .Q1H JAREK Stop: 02/15/24 16:14 Magnesium Hydroxide (Milk Of Magnesia 30 Ml Oral.Susp) 30 ml PO DAILY PRN PRN Reason: Constipation Melatonin (Melatonin 3 Mg Tablet) 6 mg PO BEDTIME PRN PRN Reason: Insomnia Sodium Chloride (0.9 % Sodium Chloride Flush 3 Ml Syringe) 3 ml IVFLUSH QSHIFT [facility] Home Medications ?Medication ?Instructions ?Recorded ?Confirmed ?Last Taken ?Type cyanocobalamin (vitamin B-12) 1,000 mcg PO DAILY 08/06/23 01/20/24 01/10/24 09:00 History 1,000 mcg tablet (Vitamin B-12) tramadol 50 mg tablet 50 mg PO DAILY PRN Pain 08/06/23 01/20/24 Unknown History blood-glucose meter (OneTouch 01/07/24 01/20/24 Unknown History Verio Flex Start kit) albuterol sulfate 90 mcg/actuation 1 puff inhalation QID 01/10/24 01/20/24 01/10/24 09:00 History aerosol inhaler atorvastatin 40 mg tablet (Lipitor) 40 mg PO BEDTIME 01/10/24 01/20/24 01/10/24 09:00 History dexlansoprazole 60 mg 60 mg PO DAILY@0630 01/10/24 01/20/24 01/10/24 07:00 History capsule,biphase delayed release (Dexilant) diclofenac sodium 1 % topical gel 4 g topical QID PRN Pain 01/10/24 01/20/24 Unknown History (Arthritis Pain (diclofenac)) docusate sodium 100 mg capsule 100 mg PO BID PRN Constipation 01/10/24 01/20/24 Unknown History montelukast 10 mg tablet 10 mg PO BEDTIME 01/10/24 01/20/24 Unknown History (Singulair) Physical Exam Vital Signs and Narrative: Vital Signs: Last Vital Signs Temp 98.0 F 02/15/24 10:30 Pulse 85 02/15/24 14:21 Resp 25 H 02/15/24 14:21 BP 137/86 02/15/24 14:21 Pulse Ox 97 02/15/24 14:26 O2 Del Method Room Air 02/15/24 14:26 BMI result Body Mass Index 31.7 Constitutional - Awake and Alert, No apparent distress Eyes - PERRLA, EOMI Cardiovascular - S1S2, RRR, No edema Respiratory - Normal lung expansion, Normal respiratory effort, No respiratory distress, CTA bilaterally Gastrointestinal - NT / ND; +BS; No rebound or guarding Extremities - no calf tenderness bilaterally, no swelling Skin - Warm/Dry Neurological - Alert & oriented x3 Psychological - Appropriate affect Results Labs 02/15/24 10:37 02/15/24 10:37 Labs: Laboratory Results - last 24 hr 02/15/24 02/15/24 10:17 10:37 MCV 90.6 MCH 29.6 MCHC 32.7 RDW 15.8 Plt Count 224 MPV 11.5 Immature Gran % (Auto) 0.4 Neut % (Auto) 64.5 Lymph % (Auto) 21.8 [place] % (Auto) 11.3 H Eos % (Auto) 1.7 Baso % (Auto) 0.3 Lymph # (Auto) 1.7 [place] # (Auto) 0.9 Eos # (Auto) 0.1 Baso # (Auto) 0.0 Abs Immat Gran (auto) 0.03 Absolute Neuts (auto) 5.0 Absolute Nucleated RBC 0.000 Nucleated RBC % (auto) 0.0 Anion Gap 16 Estim Creat Clear Calc 33.3 Estimated GFR 50 Random Glucose 160 H Calcium 9.7 Magnesium 1.8 Total Bilirubin 1.1 H Direct Bilirubin 0.3 AST 23 ALT 18 Alkaline Phosphatase 125 H Troponin I High Sens 3.6 B-Natriuretic Peptide 731 H Total Protein 6.7 Albumin 3.7 Urine Color Yellow Urine Appearance Clear Urine pH 7.5 Ur Specific [place] <= 1.005 Urine Protein Negative Urine Glucose (UA) Negative Urine Ketones Negative Urine Blood Negative Urine Nitrite Negative Ur Leukocyte Esterase Trace H Urine RBC 0-2 Urine WBC 0-5 Ur Squamous Epith Cells 0-2 Urine Bacteria None Seen Hyaline Casts 0-2 Urine Osmolality 207 L Ur Random Sodium 86.0 Influenza Type A (PCR) NEGATIVE Influenza Type B (PCR) NEGATIVE RSV RNA Qual (PCR) NEGATIVE SARS-CoV-2 RNA (RT-PCR) NEGATIVE S. pyogenes GrpA ASHLEY Negative Imaging Radiologist's Impressions: Impressions Chest X-Ray 02/15/24 12:15 IMPRESSION: Low lung volumes. Suboptimal evaluation of the lung bases. Electronically signed by: Shreyas Acosta MD 02/15/2024 02:09 PM EDT RP Abdomen/Pelvis CT 02/15/24 13:04 IMPRESSION: 1. No acute process. 2. Stable hepatic and renal cysts. 3. Stable pancreatic cyst. 4. Extensive colonic diverticulosis without acute diverticulitis. 5. Trace bilateral pleural effusions with bibasilar atelectasis. 6. Atherosclerotic disease Electronically signed by: Stanton Hackett MD 02/15/2024 02:19 PM EDT RP Assessment and Plan (1) Weakness: Status: Acute (2) Acute urinary retention: Status: Acute (3) Atrial fibrillation with RVR: Status: Acute Plan 88 year old female with history of anxiety, htn, paf on eliquis, hfpef, [id number] type 2 diabetes, CKD stage 3, history of lower GI bleed, iron deficiency anemia, osteoporosis, GERD, diabetic polyneuropathy, COPD who is a former smoker admitted for afib rvr #Paroxysmal atrial fibrillation with rvr -suspect dehydration in setting of overdiuresis -give 500ml IV bolus -monitor rates on tele -continue po rate control and eliquis #Acute urinary retention -CT abd/pelvis negative for obstruction. Etiology unclear -continue lamar -urology consult #HFpEF -BNP mildly elevated from baseline likely in setting of above -hold lasix for now. Given low urine sodium, low SG, and tachycardia, pt seems overdiuresed -strict I&O -cardiac diet -monitor respiratory status #Acute asthma/COPD- no exacerbation on admission -CXR negative -DuoNebs q.4h while awake -albuterol p.r.n. #Abd pain/diffuse body pain -etiology unclear. CT abd/pelvis negative for acute abnormality -?r/t overdiuresis -add ck -continue lamar, monitor symptoms #anxiety/mood disorder -continue home meds #Weakness -pt eval # [id number]-vadpflzio type 2 diabetes -POC glucose, diabetic diet -Humalog on sliding scale # CKD stage 3 -renal function baseline # diabetic polyneuropathy -continue tramadol DVT prophylaxis- eliquis Full code d/w Dr. Caldwell Pt requires inpatient stay at least 2 midnights for management of afib rvr and dehydration in setting of overdiuresis as well as acute urinary retention of unclear etiology Quality Stroke Does the patient have a stroke diagnosis?: No VTE Prior VTE?: No VTE Risk Level:: Medical - moderate - high VTE Device Contraindication: Treatment Not Indicated VTE Drug Contraindication: N/A - Med Ordered
[2024-02-15] MEDS: 0.9 % Sodium Chloride 500 ML IV (15:42)
--- NOTE | 2024-02-15 16:53 | PHA.MEDREC ---
Addendum entered by Yuli Vences [facility] 02/16/24 09:01: Called pharmacy, spoke to Gloria who confirmed the rest of the medications. Did not have docusate so that was left off. Vitamin D and B12 were also not on her list so, those were left unconfirmed since patient was also not able to confirm them. Gloria also mentioned lidinopril 5mg was filled 12-18-23 but the patient stated yesterday she stopped lisinopril so it was left off. Original Note: Pharmacy Consult ? Medication Reconciliation Pharmacy has completed the medication reconciliation. Spoke with patient to confirm medications. She confirmed she is no longer taking lisinopril. She is unsure if she still takes docusate. She reports she did not start her Jardiance yet, she is still waiting for it in the mail. She did not know mg but knew the names and frequencies. She has a VNA but does not know her phone number. She explained that if she gains >2 lbs she will take another tablet of the lasix but has not had to do this lately as her weight has been stable. She took all of her morning medications today including her eliquis and alprazolam. She uses [facility] mail order pharmacy for most of her medications but they are closed on weekends. Will have [facility] and [facility] call and verify rest of her meds and doses tomorrow morning.
[2024-02-15 17:01] LABS: Osmolality, Serum 299 mosm/kg (281-305)
[2024-02-15] MEDS: 0.9 % Sodium Chloride Flush 3 ML SYRINGE IVFLUSH ×2 (17:48→23:20)
[2024-02-15 18:32] LABS: Glucose, Whole Blood 116 mg/dL (60-115)
[2024-02-15 22:23] LABS: Glucose, Whole Blood 195 mg/dL (60-115)
[2024-02-15] MEDS: Insulin Lispro 100 UNIT/ML 3 ML VIAL SUBCUT (23:17)
[2024-02-15] MEDS: Flu Vacc TS2024-25(6mos up)/PF 0.5 ML SYRINGE IM (23:18)
[2024-02-15] MEDS: Pregabalin 100 MG CAPSULE PO (23:48)
[2024-02-15] MEDS: Omeprazole 20 MG CAPSULE.DR PO (23:49)
[2024-02-15] MEDS: Melatonin 3 MG TABLET 6 MG PO (23:49)
[2024-02-15] MEDS: Acetaminophen 325 MG TABLET 650 MG PO (23:49)
[2024-02-15] MEDS: Apixaban 2.5 MG TABLET PO (23:49)
[2024-02-15] MEDS: Montelukast Sodium 10 MG TABLET PO (23:49)
[2024-02-15] MEDS: ALPRAZolam 0.25 MG TABLET PO (23:49)
[2024-02-16] VITALS (12 sets, daily range): BP systolic 120–138; BP diastolic 62–79; PULSE 52–103; RESP 15–19; TEMP 36.1–36.7; O2SAT 84–95
[2024-02-16] MEDS: ondansetron HCL 4 MG/2 ML VIAL IVPUSH (02:22)
[2024-02-16 07:14] LABS: MANUAL DIFF FLAG NO
[2024-02-16 07:14] LABS: Glucose, Whole Blood 149 mg/dL (60-115)
[2024-02-16 07:24] LABS: Basophils Percent Auto 0.5 % (0-2); Eosinophils Absolute Auto 0.2 X10*3/uL (0.0-0.4); Eosinophils Percent Auto 3.4 % (0-4); Hematocrit 36.6 % (37.0-47.0); Hemoglobin 11.5 g/dl (12.0-16.0); Imm Gran Abs Auto 0.02 X10*3/uL (0.00-0.03); Imm Gran Pct Auto 0.3 % (0.0-0.4); Lymphocytes Absolute Auto 1.5 X10*3/uL (1.2-4.9); Lymphocytes Percent Auto 23.8 % (20-40); Mean Corpuscular HGB Conc 31.4 g/dl (31.0-35.0); Mean Corpuscular Hemoglobin 29.3 pg (27.0-33.0); Mean Corpuscular Volume 93.4 fL (80.0-98.0); Mean Platelet Volume 11.8 fL (9.4-12.3); Neutrophils Absolute Auto 3.7 x10*3/uL (2.0-8.3); Platelet Count 170 X10*3/uL (160-400); Red Blood Count 3.92 X10*6/uL (4.20-5.50); Red Cell Distribution Width 16.1 % (11.0-16.0); White Blood Count 6.5 X10*3/uL (4.8-10.8)
--- NOTE | 2024-02-16 07:33 | P.CNUR_ITS ---
History of Present Illness Consult details Consult date: 02/16/24 Narrative: CC: Urinary retention 88-year-old female. Sqk-tobnion-dxttupath type 2 diabetic. CKD 3. Diabetic polyneuropathy. Presents through emergency room for generalized weakness, frequent urination and dyspnea States had frequency of voiding with light voids Complained of pain within abdominal area particularly suprapubic Bladder scan showed 600 cc Patel catheter placed No prior diagnosis of retention - history consistent with overflow retention Start alpha-eloy May have voiding trial Friday once had 2 doses of alpha eloy [facility] Past Medical History Medical History Type 2 diabetes mellitus with hyperglycemia Diabetes mellitus Asthma Hypokalemia Hypomagnesemia Diarrhea Hearing difficulty Dyspnea on exertion History of gastrointestinal diverticular hemorrhage COVID-19 virus infection Rectal bleeding Medicare annual wellness visit, initial Hip pain, left Patellar sleeve fracture of right knee Knee pain, right Nausea and vomiting Coarse tremors Shoulder pain, right Hospital discharge follow-up Mass on back Constipation Tinea corporis Nausea Right wrist pain Left knee pain Left hip pain Toe pain, left Breast cancer screening by mammogram UTI (urinary tract infection) Obesity (BMI 30-39.9) Lipoma of lower back Urinary frequency Toe fracture, left Pancreatic cyst Osteoporosis Peptic ulcer disease Urinary incontinence Rectal incontinence GERD (gastroesophageal reflux disease) Bile salt-induced diarrhea Vaginal prolapse Renal artery stenosis Asthma Lumbar degenerative disc disease Insomnia TIA (transient ischemic attack) Hyperlipidemia, unspecified Essential hypertension Family History Family History Father Cancer Arterial thrombosis Mother Multiple sclerosis Muscular dystrophy Hypertension Depression Chronic mental illness Mental health disorder Brother No problems noted. Brother Gangrene Sister No problems noted. Son No problems noted. Son No problems noted. Son No problems noted. Son No problems noted. Daughter No problems noted. Daughter No problems noted. Daughter No problems noted. Surgical History Surgical History Hx of colonoscopy History of esophagogastroduodenoscopy (EGD) History of removal of cyst (~10/17/21) History of hemorrhoidectomy History of colectomy History of section History of hysterectomy History of appendectomy History of cholecystectomy Social History Social History Household Members: None Housing: Apartment Do you presently have visiting nurse or other home services: No Alcohol intake: former Comment: 1:1 sitter Patient Tobacco Use Status: Former Tobacco user Tobacco use type: Cigarette Years Smoked: 22 Smoked in Last 30 Days: No e-Cigarette/Vaping Use: Former Use Patient Interested in Nicotine Replacement: No Patient Given Instructions on How to Stop Smoking: No Second Hand Smoke Exposure: No Use of substances other than those prescribed or required for medical reasons: No Currently Displaying Signs/Symptoms of Drug Intoxication Withdrawal: No Any prior treatment program specific to substance use: No Have you been hit, kicked, punched, or otherwise hurt by someone within the past year? If so, by whom?: No Do you feel safe in your current relationship?: No Current Relationship Is there a partner from a previous relationship who is making you feel unsafe now?: No Are you made to feel afraid or neglected: No Spiritual Healthcare Practices: [employer] Advance Directives: Yes Advance Directives Information Provided: No Advance Directives on File: Yes Advance Directives Date on File: 08/06/23 Do you have a plan to hurt others: No Plan Recently lost weight without trying: No Eating poorly because of decreased appetite: No Nutrition Risks: No Nutritional Risk Patient : No : No Poor oral hygiene: No service: No Current occupational status: disabled Current occupational exposures/hazards: No Cognitive needs: Yes Hearing needs: Yes Vision needs: Yes Meds Allergies Allergy/AdvReac Type Severity Reaction Status Date / Time ciprofloxacin Allergy Severe unknown Verified 02/15/24 10:12 aspirin [Aspirin] Allergy Unknown UNKNOWN Verified 02/15/24 10:12 cefuroxime Allergy Unknown Unknown Verified 02/15/24 10:12 celecoxib [From Celebrex] Allergy Unknown UNKNOWN Verified 02/15/24 10:12 metformin Allergy Unknown diarrhea Verified 02/15/24 10:12 risedronate sodium Allergy Unknown UNKNOWN Verified 02/15/24 10:12 [From Actonel] Sulfa (Sulfonamide Allergy Unknown unknown Verified 02/15/24 10:12 Antibiotics) bupropion AdvReac Intermediate tremor Verified 02/15/24 10:12 ferrous sulfate AdvReac Intermediate tremors Verified 02/15/24 10:12 sertraline AdvReac Intermediate tremors Verified 02/15/24 10:12 Active Medications: Current Medications Acetaminophen (Acetaminophen 325 Mg Tablet) 650 mg PO Q6H PRN PRN Reason: Pain, Mild (Pain Scale 1-3), fever or headache Last Admin: 02/15/24 23:49 Dose: 650 mg Albuterol/Ipratropium (Albuterol/Iprat 2.5/0.5mg 3 Ml Ampul.Neb) 3 ml INHALE RQ4H WHILE AWAKE [facility] Last Admin: 02/15/24 19:27 Dose: 3 ml Alprazolam (Alprazolam 0.25 Mg Tablet) 0.25 mg PO DAILY PRN PRN Reason: Anxiety Last Admin: 02/15/24 23:49 Dose: 0.25 mg Apixaban (Apixaban 2.5 Mg Tablet) 2.5 mg PO BID [facility] Calcium Carbonate (Calcium Carbonate 750 Mg Tab.Chew) 750 mg PO Q4H PRN PRN Reason: Heartburn Glucose (Glucose Gel 15 Gm Gel..Gram.) 15 gm PO Q15M PRN; Protocol PRN Reason: per Hypoglycemia Standing Ord. Dextrose (D10) 250 mls @ 750 mls/hr IV Q15M PRN; Protocol PRN Reason: per Hypoglycemia Standing Ord. Insulin Human Lispro (Insulin Lispro 100 Unit/Ml 3 Ml Vial) 0 unit SUBCUT QIDACHS [facility]; Protocol Last Admin: 02/16/24 07:28 Dose: Not Given Magnesium Hydroxide (Milk Of Magnesia 30 Ml Oral.Susp) 30 ml PO DAILY PRN PRN Reason: Constipation Melatonin (Melatonin 3 Mg Tablet) 6 mg PO BEDTIME PRN PRN Reason: Insomnia Last Admin: 02/15/24 23:49 Dose: 6 mg Metoprolol Succinate (Metoprolol Succinate Er 50 Mg Tab.Er.24h) 50 mg PO DAILY [facility]; Protocol Ondansetron HCl (Ondansetron Hcl 4 Mg/2 Ml Vial) 4 mg IVPUSH Q6H PRN PRN Reason: Nausea and Vomiting Last Admin: 02/16/24 02:22 Dose: 4 mg Sodium Chloride (0.9 % Sodium Chloride Flush 3 Ml Syringe) [address] [facility] Last Admin: 02/15/24 23:20 Dose: 3 ml Home Medications ?Medication ?Instructions ?Recorded ?Confirmed ?Last Taken ?Type cyanocobalamin (vitamin B-12) 1,000 mcg PO DAILY 08/06/23 01/20/24 02/15/24 History 1,000 mcg tablet (Vitamin B-12) tramadol 50 mg tablet 50 mg PO DAILY PRN Pain 08/06/23 02/16/24 Unknown History blood-glucose meter (OneTouch 01/07/24 01/20/24 Unknown History Verio Flex Start kit) albuterol sulfate 90 mcg/actuation 1 puff inhalation QID 01/10/24 02/16/24 02/15/24 History aerosol inhaler atorvastatin 40 mg tablet (Lipitor) 40 mg PO BEDTIME 01/10/24 02/16/24 01/10/24 09:00 History dexlansoprazole 60 mg 60 mg PO DAILY@0630 01/10/24 02/16/24 02/15/24 History capsule,biphase delayed release (Dexilant) diclofenac sodium 1 % topical gel 4 g topical QID Pain 01/10/24 02/15/24 02/15/24 History (Arthritis Pain (diclofenac)) montelukast 10 mg tablet 10 mg PO BEDTIME 01/10/24 02/16/24 Unknown History (Singulair) alprazolam 0.25 mg tablet 0.25 mg PO DAILY PRN anxiety 02/15/24 02/15/24 02/15/24 History Physical Exam 2 Vital Signs: Vital Signs: Last Vital Signs Temp 98 F 02/16/24 07:02 Pulse 85 02/16/24 07:02 Resp 16 02/16/24 07:02 BP 124/62 02/16/24 07:02 Pulse Ox 92 02/16/24 07:02 O2 Del Method Nasal Cannula 02/16/24 07:02 O2 Flow Rate 2 02/16/24 07:02 BMI result Body Mass Index 31.8 Results Labs 02/16/24 06:47 02/16/24 06:47 Labs: Abnormal lab results 02/15/24 02/15/24 02/15/24 Range/Units 10:17 10:37 18:26 RBC 4.15 L (4.20-5.50) X10*6/uL Hgb (12.0-16.0) g/dl Hct (37.0-47.0) % RDW (11.0-16.0) % [place] % (Auto) 11.3 H (2-11) % Chloride 109 H (96-108) mmol/L POC Glucose 116 H (60-115) mg/dL Random Glucose 160 H (60-115) mg/dL Total Bilirubin 1.1 H (0.0-1.0) mg/dL Alkaline Phosphatase 125 H (39-117) U/L B-Natriuretic Peptide 731 H (<100) pg/mL Ur Leukocyte Esterase Trace H (Negative) Urine Osmolality 207 L (373-1093) mosm/kg 02/15/24 02/16/24 02/16/24 Range/Units 22:15 06:47 07:01 RBC 3.92 L (4.20-5.50) X10*6/uL Hgb 11.5 L (12.0-16.0) g/dl Hct 36.6 L (37.0-47.0) % RDW 16.1 H (11.0-16.0) % [place] % (Auto) 15.0 H (2-11) % Chloride (96-108) mmol/L POC Glucose 195 H 149 H (60-115) mg/dL Random Glucose (60-115) mg/dL Total Bilirubin (0.0-1.0) mg/dL Alkaline Phosphatase (39-117) U/L B-Natriuretic Peptide (<100) pg/mL Ur Leukocyte Esterase (Negative) Urine Osmolality (373-1093) mosm/kg Short CBC 02/15/24 02/16/24 Range/Units 10:37 06:47 WBC 7.7 6.5 (4.8-10.8) X10*3/uL Hgb 12.3 11.5 L (12.0-16.0) g/dl Hct 37.6 36.6 L (37.0-47.0) % Plt Count 224 170 (160-400) X10*3/uL BMP 02/15/24 10:37 Sodium 145 Potassium 4.0 Chloride 109 H Carbon Dioxide 24 BUN 15 Creatinine 1.04 Calcium 9.7 Cardiac Enzymes 02/15/24 Range/Units 10:37 Total Creatine Kinase 69 (26-140) U/L Liver Function 02/15/24 Range/Units 10:37 Total Bilirubin 1.1 H (0.0-1.0) mg/dL Direct Bilirubin 0.3 (0.0-0.5) mg/dL AST 23 (5-31) U/L ALT 18 (0-31) U/L Alkaline Phosphatase 125 H (39-117) U/L Albumin 3.7 (3.5-5.0) g/dL Urine 02/15/24 Range/Units 10:17 Urine Color Yellow Urine Appearance Clear Urine pH 7.5 (5.0-9.0) Ur Specific Kirk[place] <= 1.005 (1.005-1.025) Urine Protein Negative (Neg-Trace) mg/dL Urine Glucose (UA) Negative (Negative) mg/dL All other labs normal. Assessment and Plan (1) Acute urinary retention: Status: Acute Plan Start alpha-eloy Voiding trial in hospital Outpatient follow-up Procedures Date of Service Date of Service: 02/16/24
[2024-02-16] MEDS: Albuterol/Iprat 2.5/0.5MG 3 ML AMPUL.NEB INHALE ×4 (07:34→20:11)
[2024-02-16 07:42] LABS: Anion Gap 12 (12-20); Blood Urea Nitrogen 16 mg/dL (9-16); Calcium 9.4 mg/dL (8.4-10.2); Carbon Dioxide 27 mmol/L (22-29); Chloride 108 mmol/L (96-108); Creatinine Clr Calc Pharmacy 34.3; Estimated Glomerular Filt Rate 52; Glucose Random 132 mg/dL (60-115); Potassium 3.7 mmol/L (3.3-5.1); Sodium 143 mmol/L (135-145)
[2024-02-16] MEDS: Apixaban 2.5 MG TABLET PO ×2 (08:16→19:59)
[2024-02-16] MEDS: 0.9 % Sodium Chloride Flush 3 ML SYRINGE IVFLUSH ×2 (08:16→16:51)
[2024-02-16] MEDS: Metoprolol Succinate ER 50 MG TAB.ER.24H PO (08:16)
--- NOTE | 2024-02-16 08:36 | MHC.CM.PN ---
CM met with Patient at bedside and addressed IMM with her, providing Patient with the original and a copy has been placed on the chart. Patient lives alone in an apartment, is active with [facility], and uses a walker and w/c to assist with mobility. Home/resume said services is the goal and CM has initiated and will follow for dc planning. PCP is Dr. Solange Jacobs and Sister will transport to home.
[2024-02-16 08:40] LABS: B Type Natriuretic Peptide 604 pg/mL (<100)
[2024-02-16 11:06] LABS: Glucose, Whole Blood 180 mg/dL (60-115)
[2024-02-16] MEDS: Insulin Lispro 100 UNIT/ML 3 ML VIAL SUBCUT ×2 (11:21→16:50)
--- NOTE | 2024-02-16 13:52 | HO.PM.IMPN ---
Subjective Subjective Date of Service: 02/16/24 Interval History: Continues to be short of breath and fatigued. No acute issues overnight Review of Systems Denies chest pain Denies shortness of breath Denies nausea diarrhea Denies fever chills Physical Exam Vital Signs: Vital Signs: Last Vital Signs Temp 98.1 F 02/16/24 11:26 Pulse 82 02/16/24 11:26 Resp 17 02/16/24 11:26 BP 138/73 02/16/24 11:26 Pulse Ox 93 02/16/24 11:26 O2 Del Method Room Air 02/16/24 11:26 O2 Flow Rate 2 02/16/24 07:02 BMI result Body Mass Index 31.8 Const: Other: Awake alert oriented x3 no acute distress Resp: Other: Scant bilateral basilar crackles Cardio: Other: No S4; positive S1-S2; no S3 murmurs rubs or gallops GI: Other: Soft nontender nondistended normoactive bowel sounds Extrem: Other: No edema bilaterally Objective Data Active Medications Acetaminophen (Acetaminophen 325 Mg Tablet) 650 mg PO Q6H PRN PRN Reason: Pain, Mild (Pain Scale 1-3), fever or headache Last Admin: 02/15/24 23:49 Dose: 650 mg Documented By: TEETEE Albuterol/Ipratropium (Albuterol/Iprat 2.5/0.5mg 3 Ml Ampul.Neb) 3 ml INHALE RQ4H WHILE AWAKE [facility] Last Admin: 02/16/24 11:14 Dose: 3 ml Documented By: ALVARADO Alprazolam (Alprazolam 0.25 Mg Tablet) 0.25 mg PO DAILY PRN PRN Reason: Anxiety Last Admin: 02/15/24 23:49 Dose: 0.25 mg Documented By: TEETEE Apixaban (Apixaban 2.5 Mg Tablet) 2.5 mg PO BID [facility] Last Admin: 02/16/24 08:16 Dose: 2.5 mg Documented By: PREM Calcium Carbonate (Calcium Carbonate 750 Mg Tab.Chew) 750 mg PO Q4H PRN PRN Reason: Heartburn Furosemide (Furosemide 40 Mg/4 Ml Vial) 40 mg IVPUSH BID@0900,1800 [facility]; Protocol Stop: 02/17/24 09:01 Glucose (Glucose Gel 15 Gm Gel..Gram.) 15 gm PO Q15M PRN; Protocol PRN Reason: per Hypoglycemia Standing Ord. Dextrose (D10) 250 mls @ 750 mls/hr IV Q15M PRN; Protocol PRN Reason: per Hypoglycemia Standing Ord. Insulin Human Lispro (Insulin Lispro 100 Unit/Ml 3 Ml Vial) 0 unit SUBCUT QIDACHS [facility]; Protocol Last Admin: 02/16/24 11:21 Dose: 2 unit Documented By: PREM Magnesium Hydroxide (Milk Of Magnesia 30 Ml Oral.Susp) 30 ml PO DAILY PRN PRN Reason: Constipation Melatonin (Melatonin 3 Mg Tablet) 6 mg PO BEDTIME PRN PRN Reason: Insomnia Last Admin: 02/15/24 23:49 Dose: 6 mg Documented By: TEETEE Metoprolol Succinate (Metoprolol Succinate Er 50 Mg Tab.Er.24h) 50 mg PO DAILY [facility]; Protocol Last Admin: 02/16/24 08:16 Dose: 50 mg Documented By: PREM Ondansetron HCl (Ondansetron Hcl 4 Mg/2 Ml Vial) 4 mg IVPUSH Q6H PRN PRN Reason: Nausea and Vomiting Last Admin: 02/16/24 02:22 Dose: 4 mg Documented By: TEETEE Sodium Chloride (0.9 % Sodium Chloride Flush 3 Ml Syringe) [facility] Last Admin: 02/16/24 08:16 Dose: 3 ml Documented By: PREM Tamsulosin HCl (Tamsulosin Hcl 0.4 Mg Capsule) 0.4 mg PO BEDTIME [facility] Labs 02/16/24 06:47 02/16/24 06:47 Labs: Laboratory Results - last 24 hr 02/15/24 02/15/24 02/15/24 10:37 16:20 18:26 MCV MCH MCHC RDW Plt Count MPV Immature Gran % (Auto) Neut % (Auto) Lymph % (Auto) [place] % (Auto) Eos % (Auto) Baso % (Auto) Lymph # (Auto) [place] # (Auto) Eos # (Auto) Baso # (Auto) Abs Immat Gran (auto) Absolute Neuts (auto) Absolute Nucleated RBC Nucleated RBC % (auto) Anion Gap Estim Creat Clear Calc Estimated GFR POC Glucose 116 H Random Glucose Osmolality 299 Calcium Total Creatine Kinase 69 B-Natriuretic Peptide 02/15/24 02/16/24 02/16/24 22:15 06:47 07:01 MCV 93.4 MCH 29.3 MCHC 31.4 RDW 16.1 H Plt Count 170 MPV 11.8 Immature Gran % (Auto) 0.3 Neut % (Auto) 57.0 Lymph % (Auto) 23.8 [place] % (Auto) 15.0 H Eos % (Auto) 3.4 Baso % (Auto) 0.5 Lymph # (Auto) 1.5 [place] # (Auto) 1.0 Eos # (Auto) 0.2 Baso # (Auto) 0.0 Abs Immat Gran (auto) 0.02 Absolute Neuts (auto) 3.7 Absolute Nucleated RBC 0.000 Nucleated RBC % (auto) 0.0 Anion Gap 12 Estim Creat Clear Calc 34.3 Estimated GFR 52 POC Glucose 195 H 149 H Random Glucose 132 H Osmolality Calcium 9.4 Total Creatine Kinase B-Natriuretic Peptide 604 H 02/16/24 11:01 MCV MCH MCHC RDW Plt Count MPV Immature Gran % (Auto) Neut % (Auto) Lymph % (Auto) [place] % (Auto) Eos % (Auto) Baso % (Auto) Lymph # (Auto) [place] # (Auto) Eos # (Auto) Baso # (Auto) Abs Immat Gran (auto) Absolute Neuts (auto) Absolute Nucleated RBC Nucleated RBC % (auto) Anion Gap Estim Creat Clear Calc Estimated GFR POC Glucose 180 H Random Glucose Osmolality Calcium Total Creatine Kinase B-Natriuretic Peptide Assessment and Plan (1) Atrial fibrillation with RVR: Status: Acute (2) Weakness: Status: Acute Plan 88 year old female with history of anxiety, htn, paf on eliquis, hfpef, [id number] type 2 diabetes, CKD stage 3, history of lower GI bleed, iron deficiency anemia, osteoporosis, GERD, diabetic polyneuropathy, COPD who is a former smoker admitted for afib rvr 1.Paroxysmal atrial fibrillation with rvr -500ml IV bolus with good response in rate -monitor rates on tele -continue po rate control and eliquis 2.Acute urinary retention -alpha blockade added by Urology -attempt voiding trial in a.m. 3.HFpEF -BNP improved with rate control -await echo -strict I&O -continue current therapies 4.Acute asthma/COPD -stable and well compensated 5.DMII -acceptable control on current therapies -lispro correctional scale -adjust as indicated # CKD stage 3 -renal function baseline # diabetic polyneuropathy -continue tramadol Eliquis Full code Patient will require ongoing hospitalization to monitor stabilization of ventricular response rate complete workup until evaluate with physical therapy Quality Stroke Does the patient have a stroke diagnosis?: No VTE Prior VTE?: No VTE Risk Level:: Medical - moderate - high VTE Device Contraindication: Treatment Not Indicated VTE Drug Contraindication: N/A - Med Ordered
--- NOTE | 2024-02-16 14:21 | MHC.CM.PN ---
PT is recommending STR; CM will follow.
[2024-02-16 16:08] LABS: Glucose, Whole Blood 167 mg/dL (60-115)
[2024-02-16] MEDS: ALPRAZolam 0.25 MG TABLET PO (16:44)
[2024-02-16] MEDS: Furosemide 40 MG/4 ML VIAL IVPUSH (16:44)
[2024-02-16] MEDS: Acetaminophen 325 MG TABLET 650 MG PO (19:58)
[2024-02-16] MEDS: Tamsulosin HCL 0.4 MG CAPSULE PO (19:59)
[2024-02-16 21:15] LABS: Glucose, Whole Blood 142 mg/dL (60-115)
[2024-02-17] VITALS (13 sets, daily range): BP systolic 98–140; BP diastolic 54–80; PULSE 94–122; RESP 16–24; TEMP 36.1–37.4; O2SAT 91–98
--- NOTE | 2024-02-17 | ECG_ITS ---
Test Reason : syncope Blood Pressure : / mmHG Vent. Rate : 108 BPM Atrial Rate : 000 BPM P-R Int : 000 ms QRS Dur : 082 ms QT Int : 360 ms P-R-T Axes : 000 -22 031 degrees QTc Int : 482 ms Atrial fibrillation with rapid ventricular response Anterior infarct (cited on or before 22-JUN-2019) Abnormal ECG When compared with ECG of 15-FEB-2024 10:16, No significant change was found Referred By: Alma Curiel Electronically Signed By:CANDELARIO COOK
[2024-02-17] MEDS: traMADoL HCL 50 MG TABLET PO (00:28)
[2024-02-17] MEDS: 0.9 % Sodium Chloride Flush 3 ML SYRINGE IVFLUSH ×3 (01:58→16:15)
[2024-02-17] MEDS: Melatonin 3 MG TABLET 6 MG PO (01:58)
[2024-02-17] MEDS: ondansetron HCL 4 MG/2 ML VIAL IVPUSH ×3 (03:53→17:52)
[2024-02-17] MEDS: Albuterol Sulfate (0.083%) 2.5 MG/3 ML VIAL.NEB INHALE (04:20)
[2024-02-17 04:48] LABS: Glucose, Whole Blood 156 mg/dL (60-115)
[2024-02-17] MEDS: Prochlorperazine Edisylate 10 MG/2 ML VIAL 5 MG IVPUSH (04:59)
[2024-02-17] MEDS: ALPRAZolam 0.25 MG TABLET PO (05:02)
--- NOTE | 2024-02-17 05:03 | P.EN_ITS ---
Event Note Date of Service: 02/17/24 Event Note: S/O: [employer] activated. Mrs. Gutierrez had an event of brief loss of consciousness while dry heaving. She became nauseas around 2 AM (2 hrs after requesting/taking tramadol for generalized pain). VS remarkable for mild tachycardia consistent with rapid AFib. She also seems to be very anxious and tearful. He does not have significant shortness of breath and denied chest pain. Blood glucose stat is 156. She is alert and oriented x3. There is no slurred speech, facial droop or gross focal weakness. Cardiopulmonary exam significant for mild tachycardia and tachypnea, no wheezing, crackles or rhonchi. ECG stat obtained and showed atrial fibrillation (HR 108 bpm) with acute ischemic changes with Q-waves noted in lead III. A: Syncope, possible vasovagal due to dry heaving. I am suspecting patient's dry heaving/nausea is secondary to tramadol. P: -Check labs stat: CBC, CMP and troponin. -CXR stat. -NS 500 ml bolus X1 -Discontinue tramadol. -Give Xanax now. -Compazine IV prn. Time Spent With Patient Time: Total time managing care of this patient today ____ minutes.
[2024-02-17] MEDS: 0.9 % Sodium Chloride 500 ML IV (05:05)
[2024-02-17] MEDS: Pantoprazole Sodium 40 MG/10 ML VIAL IVPUSH (05:56)
--- NOTE | 2024-02-17 06:11 | PC.NURSE ---
At approx 04:30 pt began complaining of nausea, sob and anxiety. zofran administered with no effect. Respiratatory at bedside and breathing treatment administered with no effect. Supplemental O2 requirement increased from 2L nc to 4L. . Pt became unresponsive for approx 2-3 seconds. Pt sternal rubbed and appeared back to baseline. rapid response called. EKG, labs, and imaging ordered. Compazine given for nausea and PRN Xanax dose given for anxiety per MD. VSS stable pt 95% on 4L nc. Will continue to closely monitor.
[2024-02-17 06:58] LABS: MANUAL DIFF FLAG NO
[2024-02-17 07:03] LABS: Basophils Percent Auto 0.3 % (0-2); Eosinophils Absolute Auto 0.2 X10*3/uL (0.0-0.4); Eosinophils Percent Auto 2.5 % (0-4); Hematocrit 37.1 % (37.0-47.0); Hemoglobin 11.7 g/dl (12.0-16.0); Imm Gran Abs Auto 0.01 X10*3/uL (0.00-0.03); Imm Gran Pct Auto 0.2 % (0.0-0.4); Lymphocytes Percent Auto 14.8 % (20-40); Mean Corpuscular HGB Conc 31.5 g/dl (31.0-35.0); Mean Corpuscular Hemoglobin 29.5 pg (27.0-33.0); Mean Corpuscular Volume 93.7 fL (80.0-98.0); Mean Platelet Volume 11.8 fL (9.4-12.3); Monocytes Absolute Auto 0.9 X10*3/uL (0.1-1.2); Monocytes Percent Auto 13.4 % (2-11); Neutrophils Absolute Auto 4.4 x10*3/uL (2.0-8.3); Neutrophils Percent Auto 68.8 % (45-73); Platelet Count 172 X10*3/uL (160-400); Red Blood Count 3.96 X10*6/uL (4.20-5.50); Red Cell Distribution Width 15.7 % (11.0-16.0); White Blood Count 6.4 X10*3/uL (4.8-10.8)
[2024-02-17 07:19] LABS: Alanine Aminotransferase 13 U/L (0-31); Albumin Level 3.2 g/dL (3.5-5.0); Alkaline Phosphatase 95 U/L (39-117); Anion Gap 12 (12-20); Aspartate Amino Transferase 16 U/L (5-31); Bilirubin Total 1.3 mg/dL (0.0-1.0); Blood Urea Nitrogen 14 mg/dL (9-16); Calcium 9.1 mg/dL (8.4-10.2); Carbon Dioxide 27 mmol/L (22-29); Chloride 107 mmol/L (96-108); Creatinine Clr Calc Pharmacy 37.3; Estimated Glomerular Filt Rate 57; Glucose Random 168 mg/dL (60-115); Potassium 3.8 mmol/L (3.3-5.1); Sodium 142 mmol/L (135-145); Total Protein 5.8 g/dL (6.5-8.0)
[2024-02-17] MEDS: Albuterol/Iprat 2.5/0.5MG 3 ML AMPUL.NEB INHALE ×3 (07:29→15:11)
[2024-02-17 07:31] LABS: Troponin-I High Sensitivity < 2.7 ng/L (<3.5-17.0)
[2024-02-17 07:38] LABS: Glucose, Whole Blood 160 mg/dL (60-115)
[2024-02-17] MEDS: Insulin Lispro 100 UNIT/ML 3 ML VIAL SUBCUT ×3 (08:34→16:15)
[2024-02-17] MEDS: Apixaban 2.5 MG TABLET PO ×3 (08:34→20:33)
[2024-02-17] MEDS: Furosemide 40 MG/4 ML VIAL IVPUSH (08:34)
[2024-02-17] MEDS: Metoprolol Succinate ER 50 MG TAB.ER.24H PO (08:49)
--- NOTE | 2024-02-17 08:53 | MHC.CM.PN ---
CM addressed IMM with Patient at bedside.
[2024-02-17 11:00] LABS: Glucose, Whole Blood 220 mg/dL (60-115)
--- NOTE | 2024-02-17 14:26 | HO.PM.IMPN ---
Subjective Subjective Date of Service: 02/17/24 Interval History: Events of overnight reviewed; likely vagal episode Review of Systems Denies chest pain Denies shortness of breath Denies nausea diarrhea Denies fever chills Physical Exam Vital Signs: Vital Signs: Last Vital Signs Temp 96.9 F 02/17/24 11:20 Pulse 116 H 02/17/24 11:38 Resp 18 02/17/24 11:38 BP 140/73 H 02/17/24 11:20 Pulse Ox 98 02/17/24 11:20 O2 Del Method Nasal Cannula 02/17/24 11:20 O2 Flow Rate 4 02/17/24 11:20 Oxygen Flow Rate 3.5 02/17/24 04:45 BMI result Body Mass Index 31.8 Const: Other: Awake alert oriented x3 no acute distress Resp: Other: Scant bilateral basilar crackles Cardio: Other: No S4; positive S1-S2; no S3 murmurs rubs or gallops GI: Other: Soft nontender nondistended normoactive bowel sounds Extrem: Other: No edema bilaterally Objective Data Active Medications Acetaminophen (Acetaminophen 325 Mg Tablet) 650 mg PO Q6H PRN PRN Reason: Pain, Mild (Pain Scale 1-3), fever or headache Last Admin: 02/16/24 19:58 Dose: 650 mg Documented By: PAT Albuterol Sulfate (Albuterol Sulfate (0.083%) 2.5 Mg/3 Ml Vial.Neb) 2.5 mg INHALE Q2H PRN PRN Reason: Shortness of Breath/Wheezing Last Admin: 02/17/24 04:20 Dose: 2.5 mg Documented By: SARA Albuterol/Ipratropium (Albuterol/Iprat 2.5/0.5mg 3 Ml Ampul.Neb) 3 ml INHALE RQ4H WHILE AWAKE [facility] Last Admin: 02/17/24 11:28 Dose: 3 ml Documented By: TERRY Alprazolam (Alprazolam 0.25 Mg Tablet) 0.25 mg PO DAILY PRN PRN Reason: Anxiety Last Admin: 02/17/24 05:02 Dose: 0.25 mg Documented By: PAT Comments: per Apixaban (Apixaban 2.5 Mg Tablet) 2.5 mg PO BID [facility] Last Admin: 02/17/24 08:49 Dose: 2.5 mg Documented By: GURPREET Calcium Carbonate (Calcium Carbonate 750 Mg Tab.Chew) 750 mg PO Q4H PRN PRN Reason: Heartburn Glucose (Glucose Gel 15 Gm Gel..Gram.) 15 gm PO Q15M PRN; Protocol PRN Reason: per Hypoglycemia Standing Ord. Dextrose (D10) 250 mls @ 750 mls/hr IV Q15M PRN; Protocol PRN Reason: per Hypoglycemia Standing Ord. Insulin Human Lispro (Insulin Lispro 100 Unit/Ml 3 Ml Vial) 0 unit SUBCUT QIDACHS [facility]; Protocol Last Admin: 02/17/24 11:45 Dose: 4 unit Documented By: GURPREET Magnesium Hydroxide (Milk Of Magnesia 30 Ml Oral.Susp) 30 ml PO DAILY PRN PRN Reason: Constipation Melatonin (Melatonin 3 Mg Tablet) 6 mg PO BEDTIME PRN PRN Reason: Insomnia Last Admin: 02/17/24 01:58 Dose: 6 mg Documented By: PAT Metoprolol Succinate (Metoprolol Succinate Er 50 Mg Tab.Er.24h) 50 mg PO DAILY [facility]; Protocol Last Admin: 02/17/24 08:49 Dose: 50 mg Documented By: GURPREET Ondansetron HCl (Ondansetron Hcl 4 Mg/2 Ml Vial) 4 mg IVPUSH Q6H PRN PRN Reason: Nausea and Vomiting Last Admin: 02/17/24 10:00 Dose: 4 mg Documented By: GURPREET Pantoprazole Sodium (Pantoprazole Sodium 40 Mg/10 Ml Vial) 40 mg IVPUSH DAILY@0630 [facility] Last Admin: 02/17/24 05:56 Dose: 40 mg Documented By: PAT Prochlorperazine Edisylate (Prochlorperazine Edisylate 10 Mg/2 Ml Vial) 5 mg IVPUSH Q4H PRN PRN Reason: Nausea and Vomiting Last Admin: 02/17/24 04:59 Dose: 5 mg Documented By: PAT Sodium Chloride (0.9 % Sodium Chloride Flush 3 Ml Syringe) [facility] Last Admin: 02/17/24 08:49 Dose: 3 ml Documented By: GURPREET Tamsulosin HCl (Tamsulosin Hcl 0.4 Mg Capsule) 0.4 mg PO BEDTIME [facility] Last Admin: 02/16/24 19:59 Dose: 0.4 mg Documented By: PAT Labs 02/17/24 06:27 02/17/24 06:27 Labs: Laboratory Results - last 24 hr 02/16/24 02/16/24 02/17/24 15:59 21:10 04:44 MCV MCH MCHC RDW Plt Count MPV Immature Gran % (Auto) Neut % (Auto) Lymph % (Auto) Mayes % (Auto) Eos % (Auto) Baso % (Auto) Lymph # (Auto) Mayes # (Auto) Eos # (Auto) Baso # (Auto) Abs Immat Gran (auto) Absolute Neuts (auto) Absolute Nucleated RBC Nucleated RBC % (auto) Anion Gap Estim Creat Clear Calc Estimated GFR POC Glucose 167 H 142 H 156 H Random Glucose Calcium Total Bilirubin AST ALT Alkaline Phosphatase Troponin I High Sens Total Protein Albumin 02/17/24 02/17/24 02/17/24 06:27 07:28 10:50 MCV 93.7 MCH 29.5 MCHC 31.5 RDW 15.7 Plt Count 172 MPV 11.8 Immature Gran % (Auto) 0.2 Neut % (Auto) 68.8 Lymph % (Auto) 14.8 L Mayes % (Auto) 13.4 H Eos % (Auto) 2.5 Baso % (Auto) 0.3 Lymph # (Auto) 1.0 L Mayes # (Auto) 0.9 Eos # (Auto) 0.2 Baso # (Auto) 0.0 Abs Immat Gran (auto) 0.01 Absolute Neuts (auto) 4.4 Absolute Nucleated RBC 0.000 Nucleated RBC % (auto) 0.0 Anion Gap 12 Estim Creat Clear Calc 37.3 Estimated GFR 57 POC Glucose 160 H 220 H Random Glucose 168 H Calcium 9.1 Total Bilirubin 1.3 H AST 16 ALT 13 Alkaline Phosphatase 95 Troponin I High Sens < 2.7 Total Protein 5.8 L Albumin 3.2 L Assessment and Plan (1) Atrial fibrillation with RVR: Status: Acute Plan 88 year old female with history of anxiety, htn, paf on eliquis, hfpef, [id number] type 2 diabetes, CKD stage 3, history of lower GI bleed, iron deficiency anemia, osteoporosis, GERD, diabetic polyneuropathy, COPD who is a former smoker admitted for afib rvr 1.Paroxysmal atrial fibrillation with rvr -rate remains variable -will increase metoprolol to 50 b.i.d. and follow -continue eliquis 2.Acute urinary retention -alpha blockade added by Urology -attempt voiding trial in a.m. 3.HFpEF -BNP improved with rate control -strict I&O -continue current therapies 4.Acute asthma/COPD -stable and well compensated 5.DMII -acceptable control on current therapies -lispro correctional scale -adjust as indicated # CKD stage 3 -renal function baseline # diabetic polyneuropathy -continue tramadol Eliquis Full code Patient will require ongoing hospitalization to monitor stabilization of ventricular response rate complete workup until evaluate with physical therapy Quality Stroke Does the patient have a stroke diagnosis?: No VTE Prior VTE?: No VTE Risk Level:: Medical - moderate - high VTE Device Contraindication: Treatment Not Indicated VTE Drug Contraindication: N/A - Med Ordered
[2024-02-17 15:55] LABS: Glucose, Whole Blood 162 mg/dL (60-115)
[2024-02-17] MEDS: Lactulose 20 GM/30 ML SOLUTION 30 GM PO (20:32)
[2024-02-17] MEDS: Tamsulosin HCL 0.4 MG CAPSULE PO (20:33)
[2024-02-17 20:50] LABS: Glucose, Whole Blood 128 mg/dL (60-115)
[2024-02-18] VITALS (7 sets, daily range): BP systolic 123–151; BP diastolic 60–96; PULSE 71–125; RESP 18–20; TEMP 36–36.3; O2SAT 94–98
[2024-02-18] MEDS: Melatonin 3 MG TABLET 6 MG PO (01:13)
[2024-02-18] MEDS: 0.9 % Sodium Chloride Flush 3 ML SYRINGE IVFLUSH ×3 (01:14→23:09)
[2024-02-18] MEDS: Pantoprazole Sodium 40 MG/10 ML VIAL IVPUSH (05:59)
[2024-02-18] MEDS: Metoprolol Succinate ER 50 MG TAB.ER.24H PO (07:40)
[2024-02-18] MEDS: Insulin Lispro 100 UNIT/ML 3 ML VIAL SUBCUT ×2 (07:41→11:51)
[2024-02-18] MEDS: Apixaban 2.5 MG TABLET PO ×2 (07:41→23:19)
[2024-02-18 07:43] LABS: Glucose, Whole Blood 192 mg/dL (60-115)
[2024-02-18] MEDS: Metoprolol Tartrate 5 MG/5 ML VIAL IVPUSH (08:07)
--- NOTE | 2024-02-18 10:30 | MHC.CM.PN ---
Per ROUNDS discussion, Patient is not yet medically cleared for dc. PT is recommending STR but Patient will only consider [facility], who has denied admission. CM will follow.
[2024-02-18] MEDS: Acetaminophen 325 MG TABLET 650 MG PO ×2 (10:34→18:13)
[2024-02-18 11:54] LABS: Glucose, Whole Blood 164 mg/dL (60-115)
--- NOTE | 2024-02-18 11:56 | MHC.CM.PN ---
Per Patient's request, a referral has been made to [facility]; CM will follow.
--- NOTE | 2024-02-18 12:27 | MHC.CM.PN ---
[facility] is unable to offer Patient a bed; Patient is now willing to consider [facility]. CM will follow.
[2024-02-18] MEDS: ALPRAZolam 0.25 MG TABLET PO (12:57)
[2024-02-18] MEDS: Digoxin 0.5 MG/2 ML AMPUL 0.25 MG IVPUSH ×2 (14:19→23:09)
--- NOTE | 2024-02-18 14:52 | P.PNIM_ITS ---
Subjective Subjective Date of Service: 02/18/24 Interval History: Persistent AFib overnight with intermittent rapid ventricular responses. Now accepting of rehab when appropriate Review of Systems Denies chest pain Denies shortness of breath Denies nausea diarrhea Denies fever chills Physical Exam 2 Vital Signs: Vital Signs: Last Vital Signs Temp 96.8 F 02/18/24 11:28 Pulse 99 02/18/24 11:28 Resp 18 02/18/24 11:28 BP 142/75 H 02/18/24 11:28 Pulse Ox 98 02/18/24 11:28 O2 Del Method Nasal Cannula 02/18/24 11:28 O2 Flow Rate 4 02/18/24 11:28 Oxygen Flow Rate 3.5 02/17/24 04:45 BMI result Body Mass Index 31.8 Const: Other: Awake alert oriented x3 no acute distress Resp: Other: Scant bilateral basilar crackles Cardio: Other: No S4; positive S1-S2; no S3 murmurs rubs or gallops GI: Other: Soft nontender nondistended normoactive bowel sounds Extrem: Other: No edema bilaterally Objective Data Active Medications Acetaminophen (Acetaminophen 325 Mg Tablet) 650 mg PO Q6H PRN PRN Reason: Pain, Mild (Pain Scale 1-3), fever or headache Last Admin: 02/18/24 10:34 Dose: 650 mg Documented By: TREVOR Albuterol Sulfate (Albuterol Sulfate (0.083%) 2.5 Mg/3 Ml Vial.Neb) 2.5 mg INHALE Q2H PRN PRN Reason: Shortness of Breath/Wheezing Last Admin: 02/17/24 04:20 Dose: 2.5 mg Documented By: SARA Albuterol/Ipratropium (Albuterol/Iprat 2.5/0.5mg 3 Ml Ampul.Neb) 3 ml INHALE RQ4H WHILE AWAKE [facility] Last Admin: 02/18/24 11:42 Dose: Not Given Documented By: MERLYN Non-Admin Reason: Patient Refused Alprazolam (Alprazolam 0.25 Mg Tablet) 0.25 mg PO DAILY PRN PRN Reason: Anxiety Last Admin: 02/18/24 12:57 Dose: 0.25 mg Documented By: TREVOR Apixaban (Apixaban 2.5 Mg Tablet) 2.5 mg PO BID [facility] Last Admin: 02/18/24 07:41 Dose: 2.5 mg Documented By: TREVOR Calcium Carbonate (Calcium Carbonate 750 Mg Tab.Chew) 750 mg PO Q4H PRN PRN Reason: Heartburn Digoxin (Digoxin 0.5 Mg/2 Ml Ampul) 0.25 mg IVPUSH Q6H [facility]; Protocol Stop: 02/19/24 00:01 Last Admin: 02/18/24 14:19 Dose: 0.25 mg Documented By: TREVOR Glucose (Glucose Gel 15 Gm Gel..Gram.) 15 gm PO Q15M PRN; Protocol PRN Reason: per Hypoglycemia Standing Ord. Dextrose (D10) 250 mls @ 750 mls/hr IV Q15M PRN; Protocol PRN Reason: per Hypoglycemia Standing Ord. Insulin Human Lispro (Insulin Lispro 100 Unit/Ml 3 Ml Vial) 0 unit SUBCUT QIDACHS [facility]; Protocol Last Admin: 02/18/24 11:51 Dose: 2 unit Documented By: TREVOR Magnesium Hydroxide (Milk Of Magnesia 30 Ml Oral.Susp) 30 ml PO DAILY PRN PRN Reason: Constipation Melatonin (Melatonin 3 Mg Tablet) 6 mg PO BEDTIME PRN PRN Reason: Insomnia Last Admin: 02/18/24 01:13 Dose: 6 mg Documented By: ARTEMIO Metoprolol Succinate (Metoprolol Succinate Er 50 Mg Tab.Er.24h) 50 mg PO DAILY [facility]; Protocol Last Admin: 02/18/24 07:40 Dose: 50 mg Documented By: TREVOR Ondansetron HCl (Ondansetron Hcl 4 Mg/2 Ml Vial) 4 mg IVPUSH Q6H PRN PRN Reason: Nausea and Vomiting Last Admin: 02/17/24 17:52 Dose: 4 mg Documented By: GURPREET Pantoprazole Sodium (Pantoprazole Sodium 40 Mg/10 Ml Vial) 40 mg IVPUSH DAILY@0630 [facility] Last Admin: 02/18/24 05:59 Dose: 40 mg Documented By: ARTEMIO Prochlorperazine Edisylate (Prochlorperazine Edisylate 10 Mg/2 Ml Vial) 5 mg IVPUSH Q4H PRN PRN Reason: Nausea and Vomiting Last Admin: 02/17/24 04:59 Dose: 5 mg Documented By: PAT Senna (Sennosides 8.6 Mg Tablet) 17.2 mg PO BEDTIME PRN PRN Reason: Constipation Sodium Chloride (0.9 % Sodium Chloride Flush 3 Ml Syringe) 3 ml IVFLUSH QSHIFT [facility] Last Admin: 02/18/24 10:35 Dose: 3 ml Documented By: TREVOR Tamsulosin HCl (Tamsulosin Hcl 0.4 Mg Capsule) 0.4 mg PO BEDTIME [facility] Last Admin: 02/17/24 20:33 Dose: 0.4 mg Documented By: ARTEMIO Labs 02/17/24 06:27 02/17/24 06:27 Labs: Laboratory Results - last 24 hr 02/17/24 02/17/24 02/18/24 15:48 20:41 07:22 POC Glucose 162 H 128 H 192 H 02/18/24 11:30 POC Glucose 164 H Assessment and Plan (1) Atrial fibrillation with RVR: Status: Acute Plan 88 year old female with history of anxiety, htn, paf on eliquis, hfpef, [id number] type 2 diabetes, CKD stage 3, history of lower GI bleed, iron deficiency anemia, osteoporosis, GERD, diabetic polyneuropathy, COPD who is a former smoker admitted for afib rvr 1.Paroxysmal atrial fibrillation with RVR -rate remains variable -dig load IV and start p.o. in a.m. -continue eliquis 2.Acute urinary retention -alpha blockade added by Urology -attempt voiding trial today 3.HFpEF -BNP improved with rate control -strict I&O -continue current therapies 4.Acute asthma/COPD -stable and well compensated 5.DMII -acceptable control on current therapies -lispro correctional scale -adjust as indicated Eliquis Full code Patient will require ongoing hospitalization to monitor stabilization of ventricular response rate complete workup until evaluate with physical therapy Quality Stroke Does the patient have a stroke diagnosis?: No VTE Prior VTE?: No VTE Risk Level:: Medical - moderate - high VTE Device Contraindication: Treatment Not Indicated VTE Drug Contraindication: N/A - Med Ordered
[2024-02-18 16:00] LABS: Glucose, Whole Blood 140 mg/dL (60-115)
[2024-02-18] MEDS: ondansetron HCL 4 MG/2 ML VIAL IVPUSH (18:07)
[2024-02-18 23:02] LABS: Glucose, Whole Blood 141 mg/dL (60-115)
[2024-02-18] MEDS: Tamsulosin HCL 0.4 MG CAPSULE PO (23:08)
[2024-02-19] VITALS (7 sets, daily range): BP systolic 134–151; BP diastolic 75–83; PULSE 71–89; RESP 18–20; TEMP 36.4–36.8; O2SAT 93–98
[2024-02-19] MEDS: Digoxin 0.5 MG/2 ML AMPUL 0.25 MG IVPUSH (03:12)
[2024-02-19] MEDS: ALPRAZolam 0.5 MG TABLET PO (03:32)
[2024-02-19] MEDS: Acetaminophen 325 MG TABLET 650 MG PO (03:35)
[2024-02-19] MEDS: Pantoprazole Sodium 40 MG/10 ML VIAL IVPUSH (06:06)
[2024-02-19] MEDS: Albuterol/Iprat 2.5/0.5MG 3 ML AMPUL.NEB INHALE ×2 (07:27→11:38)
[2024-02-19 07:48] LABS: Glucose, Whole Blood 139 mg/dL (60-115)
--- NOTE | 2024-02-19 10:24 | MHC.CM.PN ---
Patient has been medically cleared for dc to SNF/STR today. Patient will dc to [facility] today at 1 PM via [facility]. CM left a detailed message for Primary Contact/Carmen @ [phone], informing her of the dc plan and attempted to leave the same message with Sister/HCP/Lili @ [phone], but VM was not set up.Last Imm addressed on 02/17/2024.
[2024-02-19] MEDS: Apixaban 2.5 MG TABLET PO (10:52)
[2024-02-19] MEDS: 0.9 % Sodium Chloride Flush 3 ML SYRINGE IVFLUSH (10:53)
[2024-02-19] MEDS: Metoprolol Succinate ER 50 MG TAB.ER.24H PO (10:54)
[2024-02-19 11:18] LABS: Glucose, Whole Blood 265 mg/dL (60-115)
--- NOTE | 2024-02-19 11:29 | P.DS_ITS ---
DS: Providers Provider Date of Service: 02/19/24 Date of admission: 02/15/24 15:08 Date of discharge: 02/19/24 Primary care physician: Solange Jacobs MD Consults: 02/15/24 15:13 Consult to Urology Routine Consulting Provider: [facility] Reason for consultation: urinary retention Attending physician on discharge: Abdoulaye Tripathi Discharging clinician: Doreen Hurst DS: Diagnosis Discharge Diagnosis (1) Atrial fibrillation with RVR: Status: Acute DS: Summary Hospital Course Hospital Course: From H&P on the day of admission 88 year old female with history of anxiety, htn, paf on eliquis, hfpef, [id number] type 2 diabetes, CKD stage 3, history of lower GI bleed, iron deficiency anemia, osteoporosis, GERD, diabetic polyneuropathy, COPD who is a former smoker presented to the ED for evaluation of generalized weakness, frequent urination, and dyspnea ongoing for 2-3 days. Has polyuria, polysdipsia. Compliant with diuretics. She is experiencing diffuse abd pain, worse in the suprapubic area. No fevers, chills, nausea, vomiting, diarrhea, edema, orthopnea, lightheadedness, palpitations, or chest pain. has been eating and drinking without difficulty. On arrival, pt hypertensive, tachycardic to 112, vitals otherwise stable. Hematology studies unremarkable. Renal function baseline, electrolyte levels normal except for chloride 109. Glucose 160. Troponin 3.6. BNP 731 . Urinalysis with specific gravity less than 1.005, urine osmolality 207, urine sodium 86. Negative for COVID, RSV, flu. Negative for strep throat. CXR shows low lung volumes, no effusions and improvement noted in edema. CT abdomen/pelvis negative for acute intracranial abnormality shows stable pancreatic cysts, stable hepatic and renal cysts and extensive colonic diverticulosis without acute diverticulitis. There are trace bilateral pleural effusions and bibasilar atelectasis. Paroxysmal atrial fibrillation with rvr Continued on baseline medications, heart rate continued to be intermittently elevated, was loaded with digoxin. Will start oral digoxin MWF - recommend to check a level in the middle of next week and adjust as needed. Recommend outpatient follow-up with Cardiology Acute urinary retention CT abd/pelvis negative for obstruction. s/p lamar placement. seen by urology, started on flomax. lamar removed and passed voiding trial HFpEF continued on home lasix Acute asthma/COPD no exacerbation on admission DM continue diabetic diet. recommend sliding scale per facility protocol. seen by physical therapy, recommend STR, accepted [facility]. Anticipate less than 30 day stay at SNF Time Attestation Discharge Coordination Time (in mins): 36 Quality: Safe Use of Opioids Does Pt have an Active Cancer Diagnosis on the Problem List?: No Quality: Stroke Does the patient have a stroke diagnosis?: No Physical Exam Vital Signs: Vital Signs: Last Vital Signs Temp 97.7 F 02/19/24 11:12 Pulse 77 02/19/24 11:12 Resp 20 02/19/24 11:12 BP 134/82 02/19/24 11:12 Pulse Ox 94 02/19/24 11:12 O2 Del Method Room Air 02/19/24 11:12 O2 Flow Rate 1 02/19/24 07:25 Oxygen Flow Rate 3.5 02/17/24 04:45 BMI result Body Mass Index 31.8 Const: General: cooperative, comfortable, no acute distress, alert and awake Nutritional Appearance: average body habitus Orientation/consciousness: patient oriented x3 Resp: Other: no rales/rhonchi Effort & Inspection: normal respiratory effort, able to speak in complete sentences, no respiratory distress and no use of accessory muscles Cardio: Rate: regular rate GI: Inspection: No distended Palpation (GI): Soft to palpation Neuro: General: patient oriented x3, moves all extremities and CN's II-XI intact bilaterally Extrem: General: Yes no pedal edema DS: Data Data Completed and Pending Labs on day of discharge: Laboratory Results - last 24 hr 02/18/24 02/18/24 02/18/24 11:30 15:54 22:59 POC Glucose 164 H 140 H 141 H 02/19/24 02/19/24 07:44 11:15 POC Glucose 139 H 265 H Discharge Plan Discharge Anticipated Discharge Date/Time: 02/19/24 13:00 Patient Disposition: Xfer SNF Discharge Diagnosis: Atrial fibrillation with rapid ventricular response Urinary retention Referrals: [facility] [Outside] - 1 Week Po,Solange Giles MD [Primary Care Provider] - 1 Week Brandon Fowler MD [Physician] - 2 Weeks Discharge Medications: New tamsulosin 0.4 mg Capsule 0.4 mg PO BEDTIME Qty: 1 0RF digoxin 125 mcg (0.125 mg) tablet 125 mcg PO .MWF Qty: 1 0RF Continued (DME) pediatric front wheel walker See Rx Instructions .Route .MEDSUPPLY Qty: 1 0RF Rx Instructions: As directed Eliquis 2.5 mg tablet 2.5 mg PO BID Qty: 180 3RF (DME) lancets [FreeStyle Lancets] 28 gauge misc See Rx Instructions .ROUTE .MEDSUPPLY Qty: 100 3RF Rx Instructions: use to test sugar once a day metoprolol succinate 50 mg tablet extended release 24 hr 50 mg PO DAILY 90 Days Qty: 90 2RF furosemide 40 mg tablet 40 mg PO DAILY Qty: 90 2RF pregabalin 100 mg capsule 100 mg PO Q12H 30 Days Qty: 60 2RF folic acid 1 mg tablet 1 mg PO DAILY Qty: 90 2RF (DME) blood-glucose meter [[employer] Verio Flex Start] Kit See Rx Instructions .Route Rx Instructions: Test twice a day ascorbic acid (vitamin C) [Vitamin C] 500 mg tablet 500 mg PO DAILY Qty: 90 1RF zolpidem 5 mg tablet 5 mg PO BEDTIME PRN (Reason: insomnia) Qty: 90 0RF tramadol 50 mg tablet 50 mg PO DAILY PRN (Reason: Pain) cyanocobalamin (vitamin B-12) [Vitamin B-12] 1,000 mcg Tablet 1,000 mcg PO DAILY diclofenac sodium [Arthritis Pain (diclofenac)] 1 % gel 4 g topical QID Rx Instructions: apply to single knee, ankle, foot; for foot includes sole/toes/top of foot albuterol sulfate 90 mcg/actuation Hfa Aerosol Inhaler 1 puff INHALATION QID montelukast [Singulair] 10 mg tablet 10 mg PO BEDTIME dexlansoprazole [Dexilant] 60 mg capsule,biphase delayed releas 60 mg PO DAILY@0630 atorvastatin [Lipitor] 40 mg tablet 40 mg PO BEDTIME alprazolam 0.25 mg tablet 0.25 mg PO DAILY PRN (Reason: anxiety) (DME) PEDIATRIC FRONT WHEELED WALKER See Rx Instructions .Route .MEDSUPPLY Qty: 1 0RF Rx Instructions: As directed cholecalciferol (vitamin D3) 25 mcg (1,000 unit) capsule 25 mcg PO DAILY Qty: 90 1RF Discharge Orders: Discharge Order (Routine); Ordered 02/19/24 Ordered By: Doreen Hurst Activity on Discharge: As tolerated Stand Alone Forms: Patient Portal Discharge page Print Language: Italian Care Plan Goals: see below Health Concerns: Atrial fibrillation with rapid ventricular response Urinary retention Plan of Treatment: For urinary retention, started on Flomax, Lamar catheter removed and has been voiding independently For atrial fibrillation, was loaded with IV digoxin, continued on baseline beta- eloy. Recommend continue oral digoxin Friday. Recommend to check a digoxin level in the middle of next week. Recommend outpatient follow- up with Cardiology outpatient follow up with PCP Anticipate less then 30 days stay at SNF Assessment: See discharge summary
== END 2024-02-19 13:02 | disposition skilled nursing facility (03) | DRG 309 ==
LOC: HO.ED 11:20 → HO.EDOVER 15:25 → HO.IMC 19:39
PROVIDERS: Hospitalist; Internal Medicine; Physician Assistant; Admitting Provider Physician Assistant; Emergency Provider Emergency Medicine; PCP Internal Medicine; Visit Provider Physician Assistant Medical
DX: I48.0 Paroxysmal atrial fibrillation (principal); I13.0 Hypertensive heart and chronic kidney disease with heart failure and stage 1 through stage 4 chronic kidney disease, or unspecified chronic kidney disease; I50.32 Chronic diastolic (congestive) heart failure; N18.30 Chronic kidney disease, stage 3 unspecified; E11.42 Type 2 diabetes mellitus with diabetic polyneuropathy; R33.9 Retention of urine, unspecified; F41.9 Anxiety disorder, unspecified; R55 Syncope and collapse; E11.22 Type 2 diabetes mellitus with diabetic chronic kidney disease; J44.9 Chronic obstructive pulmonary disease, unspecified; E86.0 Dehydration; F03.90 Unspecified dementia, unspecified severity, without behavioral disturbance, psychotic disturbance, mood disturbance, and anxiety; I25.10 Atherosclerotic heart disease of native coronary artery without angina pectoris; Z20.822 Contact with and (suspected) exposure to COVID-19; Z23 Encounter for immunization; Z79.01 Long term (current) use of anticoagulants; Z79.899 Other long term (current) drug therapy
CPT/HCPCS: 0241U; 36415; 71045; 71111; 74177; 80048; 80053; 80076; 81001; 82550; 82947; 83036; 83735; 83880; 83930; 83935; 84300; 84484; 85025; 87651; 90656; 93005; 94799; 97116; 97162; 99285; C1758; J0737; J1160; J1940; J2270; J2405; J2470; Q9957; Q9967

== ENCOUNTER → 2024-02-15 15:08 | Outpatient (BNV) | payer MEDICARE, OTHER, SELFPAY | PROVIDERS: Admitting Provider Physician Assistant; Emergency Provider Emergency Medicine; PCP Internal Medicine; Visit Provider Urology | DX: R33.8 Other retention of urine (principal) | CPT/HCPCS: 99222 ==

== ENCOUNTER → 2024-02-15 15:08 | Outpatient (BNV) | payer MEDICARE, OTHER, SELFPAY | PROVIDERS: Admitting Provider Physician Assistant; Emergency Provider Emergency Medicine; PCP Internal Medicine; Visit Provider Physician Assistant | DX: I48.91 Unspecified atrial fibrillation (principal) | CPT/HCPCS: 99223; 99232; 99239; 99499 ==

== ENCOUNTER 2024-02-25 05:51 | Outpatient (REF) | payer SELFPAY ==
[2024-02-25 05:54] LABS: MANUAL DIFF FLAG NO
[2024-02-25 06:19] LABS: Basophils Absolute Auto 0.1 X10*3/uL (0.0-0.2); Basophils Percent Auto 0.6 % (0-2); Eosinophils Absolute Auto 0.3 X10*3/uL (0.0-0.4); Eosinophils Percent Auto 3.9 % (0-4); Hematocrit 40.9 % (37.0-47.0); Hemoglobin 13.2 g/dl (12.0-16.0); Imm Gran Abs Auto 0.02 X10*3/uL (0.00-0.03); Imm Gran Pct Auto 0.3 % (0.0-0.4); Lymphocytes Absolute Auto 1.9 X10*3/uL (1.2-4.9); Lymphocytes Percent Auto 23.6 % (20-40); Mean Corpuscular HGB Conc 32.3 g/dl (31.0-35.0); Mean Corpuscular Hemoglobin 29.1 pg (27.0-33.0); Mean Corpuscular Volume 90.1 fL (80.0-98.0); Mean Platelet Volume 11.3 fL (9.4-12.3); Monocytes Absolute Auto 1.1 X10*3/uL (0.1-1.2); Monocytes Percent Auto 13.5 % (2-11); Neutrophils Absolute Auto 4.6 x10*3/uL (2.0-8.3); Neutrophils Percent Auto 58.1 % (45-73); Platelet Count 240 X10*3/uL (160-400); Red Blood Count 4.54 X10*6/uL (4.20-5.50); Red Cell Distribution Width 14.8 % (11.0-16.0)
[2024-02-25 06:41] LABS: Anion Gap 14 (12-20); Blood Urea Nitrogen 14 mg/dL (9-16); Calcium 9.5 mg/dL (8.4-10.2); Carbon Dioxide 25 mmol/L (22-29); Chloride 104 mmol/L (96-108); Estimated Glomerular Filt Rate 59; Glucose Random 145 mg/dL (60-115); Potassium 3.2 mmol/L (3.3-5.1); Sodium 140 mmol/L (135-145)
== END 2024-02-25 05:52 | disposition home or self-care (01) ==
LOC: HO.MMNH2L 05:51
PROVIDERS: Visit Provider Hospitalist
DX: J44.9 Chronic obstructive pulmonary disease, unspecified (principal)
CPT/HCPCS: 36415; 80048; 85025

== ENCOUNTER 2024-03-18 13:47 | Outpatient (AMB) | payer MEDICARE, OTHER, SELFPAY ==
[2024-03-18 13:53] VITALS: BP 108/64; PULSE 80; BMI 30.9
--- NOTE | 2024-03-18 13:53 | A.OFFPC_ITS ---
Vital Signs 03/18/24 13:53 Height 4 ft 11 in Weight 153 lb BMI 30.9 BP 108/64 Blood Pressure Location Lt brachial Position Sitting Pulse 80 Pulse Source Pulse Oximeter Oxygen Delivery Method Room Air Intake Visit Reasons: [facility] 03/07 Intake Note: Patient is here for hospital discharge follow up. Patient was discharged from [facility] on 03/07/2024 News Videotape Editor Required: No Allergies ciprofloxacin Allergy (Severe, Verified 03/18/24 14:07) unknown aspirin [Aspirin] Allergy (Unknown, Verified 03/18/24 14:07) UNKNOWN cefuroxime Allergy (Unknown, Verified 03/18/24 14:07) Unknown celecoxib [From Celebrex] Allergy (Unknown, Verified 03/18/24 14:07) UNKNOWN metformin Allergy (Unknown, Verified 03/18/24 14:07) diarrhea risedronate sodium [From Actonel] Allergy (Unknown, Verified 03/18/24 14:07) UNKNOWN Sulfa (Sulfonamide Antibiotics) Allergy (Unknown, Verified 03/18/24 14:07) unknown bupropion Adverse Reaction (Intermediate, Verified 03/18/24 14:07) tremor ferrous sulfate Adverse Reaction (Intermediate, Verified 03/18/24 14:07) tremors sertraline Adverse Reaction (Intermediate, Verified 03/18/24 14:07) tremors Medication List - Last Reconciled 03/18/24 by Soledad Agudelo PA-C albuterol sulfate 90 mcg/actuation 1 puff inhalation QID alprazolam 0.25 mg PO DAILY PRN apixaban (Eliquis) 2.5 mg PO BID ascorbic acid (vitamin C) (Vitamin C) 500 mg PO DAILY atorvastatin (Lipitor) 40 mg PO BEDTIME blood-glucose meter (Volantis Systemsuch Verio Flex Start kit) Test twice a day cholecalciferol (vitamin D3) 25 mcg PO DAILY cyanocobalamin (vitamin B-12) (Vitamin B-12) 1,000 mcg PO DAILY dexlansoprazole (Dexilant) 60 mg PO DAILY@0630 diclofenac sodium 1% (Arthritis Pain (diclofenac)) 4 grams topical QID digoxin 125 mcg PO .MWF empagliflozin 10 mg PO QAM famotidine 20 mg PO DAILY folic acid 1 mg PO DAILY furosemide 40 mg PO DAILY lancets (FreeStyle Lancets) use to test sugar once a day metoprolol succinate ER 50 mg PO DAILY 90 days montelukast (Singulair) 10 mg PO BEDTIME [pediatric front wheel walker As directed] [PEDIATRIC FRONT WHEELED WALKER As directed] pregabalin 100 mg PO Q12H 30 days tamsulosin 0.4 mg PO BEDTIME tramadol 50 mg PO DAILY PRN zolpidem 5 mg PO BEDTIME PRN Tobacco use date assessed: 10/17/23 Fall risk assessment: No Falls in past year Last assessed Fall Risk: 03/18/24 Dental Screening Dental Screen Date: 09/18/23 [facility] 03/07 HPI Details 88-year-old female with past medical his tory of hypertension, hypercholesterolemia, GERD, diabetes mellitus, generalized anxiety disorder, coronary artery disease, congestive heart failure, lumbar degenerative disc disease, atrial fibrillation, COPD last seen by Dr. Jacobs coming in for assisted facility discharge follow up. In review of the notes, patient was seen in [facility] 02/15/2024 for generalized weakness and frequent urination. CT abdomen/pelvis shows bilateral pleural effusions and bibasilar atelectasis and patient was admitted for is concern along with urinary retention. Patient was started on digoxin and recommended outpatient cardiology follow up, patient passed voiding trial and was seen by Physical therapy who recommended assisted facility. Patient was [facility] to [facility]. Patient has an appointment with GI tomorrow to follow up on pancreatic cysts. She has VNA twice daily and is seeing physical therapy once weekly. She has not been seen by Cardiology and no longer has a appliance counselor. She does have 1 concern today she feels like she can not empty her bladder completely in his having urinary frequency. [facility] Medical History Type 2 diabetes mellitus with hyperglycemia Diabetes mellitus Asthma Hypokalemia Hypomagnesemia Diarrhea Hearing difficulty Dyspnea on exertion History of gastrointestinal diverticular hemorrhage COVID-19 virus infection Rectal bleeding Medicare annual wellness visit, initial Hip pain, left Patellar sleeve fracture of right knee Knee pain, right Nausea and vomiting Coarse tremors Shoulder pain, right Hospital discharge follow-up Mass on back Constipation Tinea corporis Nausea Right wrist pain Left knee pain Left hip pain Toe pain, left Breast cancer screening by mammogram UTI (urinary tract infection) Obesity (BMI 30-39.9) Lipoma of lower back Urinary frequency Toe fracture, left Pancreatic cyst Osteoporosis Peptic ulcer disease Urinary incontinence Rectal incontinence GERD (gastroesophageal reflux disease) Bile salt-induced diarrhea Vaginal prolapse Renal artery stenosis Asthma Lumbar degenerative disc disease Insomnia TIA (transient ischemic attack) Hyperlipidemia, unspecified Essential hypertension Surgical History Hx of colonoscopy History of esophagogastroduodenoscopy (EGD) History of removal of cyst (~10/17/21) History of hemorrhoidectomy History of colectomy History of section History of hysterectomy History of appendectomy History of cholecystectomy Family History Father Cancer Arterial thrombosis Mother Multiple sclerosis Muscular dystrophy Hypertension Depression Chronic mental illness Mental health disorder Brother No problems noted. Brother Gangrene Sister No problems noted. Son No problems noted. Son No problems noted. Son No problems noted. Son No problems noted. Daughter No problems noted. Daughter No problems noted. Daughter No problems noted. Social History Household Members: None Housing: Apartment Do you presently have visiting nurse or other home services: No Alcohol intake: former Comment: 1:1 sitter Patient Tobacco Use Status: Former Tobacco user Tobacco use type: Cigarette Years Smoked: 22 e-Cigarette/Vaping Use: Former Use Second Hand Smoke Exposure: No Advance Directives Date on File: 08/06/23 service: No Current occupational status: disabled Current occupational exposures/hazards: No Cognitive needs: Yes Hearing needs: Yes Vision needs: Yes Questionnaire Thrive Questionnaire Date Thrive assessed: 02/16/24 AUDIT C Alcohol Use Questionnaire (AUDIT-C) 1. How often do you have a drink containing alcohol?: Never 3. How often do you have six or more drinks on one occasion?: Never Total Score: 0 Score Reviewed/Action Taken: No MERY-7 AMB Questionnaire MERY-7 Date MERY - 7 assessed: 09/18/23 Source: Developed by Drs. Brandon Villeda, Vijaya Damon, Jaydon Easley and colleagues, with an educational phi from [employer]. Review of Systems Const Denies body aches, Denies chills, Denies fever(s) and Denies lethargy Eyes Reports no additional complaints ENT Reports no additional complaints Card Denies chest pain, Reports leg edema, Denies lightheadedness and Denies dyspnea Resp Denies cough and Denies dyspnea GI Reports no additional complaints Reports as per HPI Musc Reports no additional complaints Skin/Breast Reports system reviewed and no additional complaints, except as documented Neuro Reports no additional complaints Physical exam (Primary Care) Vital Signs: Last Vital Signs Pulse 80 03/18/24 13:53 BP 108/64 03/18/24 13:53 Oxygen Delivery Method Room Air 03/18/24 13:53 BMI result Body Mass Index 30.9 Tobacco/Smoking Status: Tobacco use Status Tobacco use date assessed 10/17/23 03/18/24 13:54 Patient Tobacco Use Status Former Tobacco user 03/18/24 13:54 Tobacco use type Cigarette 03/18/24 13:54 e-Cigarette/Vaping Use Former Use 03/18/24 13:54 Thrive Assessment: Date of Thrive Assessment Date Thrive assessed 02/16/24 03/18/24 13:54 Const General: cooperative, healthy appearing, comfortable and no acute distress Orientation/consciousness: patient oriented x3 HENMT Head: Yes normocephalic Ears: hearing grossly normal bilaterally General nose exam: Normal external nose present Eyes General: appearance normal, both eyes and all related structures Conjunctivae: conjunctivae normal Neck Neck: Yes full ROM and Yes no lymphadenopathy Resp Effort & Inspection: normal respiratory effort Auscultation: clear to auscultation bilaterally, crackles bilateral at the base, no rales, no rhonchi and no wheezes Cardio Rate: regular rate Rhythm: regular rhythm Skin General skin exam: no rashes or lesions noted Neuro General: patient oriented x3 Gait exam (Neuro): Normal gait present Extrem General: Yes normal to inspection, Yes full ROM and No edema Psych Affect: normal affect Attitude: cooperative Insight: Good insight present (Psych) Judgement: Good judgement present (Psych) Results AMB Urinalysis Dipstick UR Leukocytes Medium Last Edit by AUSTIN Marrero on 03/18/24 15:40 UR Nitrite Negative Last Edit by AUSTIN Marrero on 03/18/24 15:40 UR Urobilinogen 2 Last Edit by AUSTIN Marrero on 03/18/24 15:40 UR Protein Negative Last Edit by AUSTIN Marrero on 03/18/24 15:40 UR Ph 6.0 Last Edit by AUSTIN Marrero on 03/18/24 15:40 UR Blood Moderate Last Edit by AUSTIN Marrero on 03/18/24 15:40 UR Specific [place] 1.010 Last Edit by AUSTIN Marrero on 03/18/24 15:40 UR Ketone Negative Last Edit by AUSTIN Marrero on 03/18/24 15:40 UR Bilirubin Negative Last Edit by Mahi Jurado [place] on 03/18/24 15:40 UR Glucose 1000 Last Edit by Mahi Jurado [place] on 03/18/24 15:40 Results Reviewed Results Reviewed: Laboratory Last Values Urine pH (Clinic) 6.0 03/18/24 15:38 Specific [place] (Clinic) 1.010 03/18/24 15:38 Ur Protein (Clinic) Negative 03/18/24 15:38 Ur Ketones (Clinic) Negative 03/18/24 15:38 Urine Blood (Clinic) Moderate 03/18/24 15:38 Urine Nitrite Negative 03/18/24 15:38 Urine Bilirubin (Clinic) Negative 03/18/24 15:38 Urobilinogen (Clinic) 2 03/18/24 15:38 Leukocyte Esterase (Clinic) Medium 03/18/24 15:38 Urine Glucose (Clinic) 1000 03/18/24 15:38 Coding Level of Care Code Est Pt Level 4 (64954) Diagnoses Cystitis N30.90 Atrial fibrillation with RVR I48.91 Acute urinary retention R33.8 Type 2 diabetes mellitus with hyperglycemia, without long-term current use of insulin E11.65 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 Ordered for urine culture to better guide antibiotic therapy but will prophylactically treat with Macrobid. (2) Atrial fibrillation with RVR: Code(s): I48.91 - Unspecified atrial fibrillation Category: Medical Plan: Referral placed for Cardiology and advised patient to reach out to the office to schedule an appointment. Recently started on digoxin during last admission and continue on this medication. (3) Acute urinary retention: Code(s): R33.8 - Other retention of urine Category: Medical Plan: Resolved at this time. Continue to monitor symptoms. (4) Type 2 diabetes mellitus with hyperglycemia: Code(s): E11.65 - Type 2 diabetes mellitus with hyperglycemia Category: Medical Qualifiers: Diabetes mellitus custodial insulin use: without local intermodal truck driver use Qualified Code(s): E11.65 - Type 2 diabetes mellitus with hyperglycemia Plan: Decrease the amount of carbohydrates such as pasta, bread, rice, and potatoes and limit the amount of sweets. Although fruits are generally healthy they should be eaten in moderation as they are still high in sugar. Hemoglobin A1c goal of less than 7%. (5) CHF (congestive heart failure): Code(s): I50.9 - Heart failure, unspecified Category: Medical Qualifiers: Heart failure chronicity: acute on chronic Heart failure type: systolic Qualified Code(s): I50.23 - Acute on chronic systolic (congestive) heart failure Plan: Continue with daily weights and avoid salt intake and excessive water intake. Continue on furosemide 40 mg daily. (6) Hyperlipidemia, unspecified: Code(s): E78.5 - Hyperlipidemia, unspecified Category: Medical Qualifiers: Hyperlipidemia type: unspecified Qualified Code(s): E78.5 - Hyperlipidemia, unspecified Plan: Avoid foods that are high in cholesterol such as red meat, fried foods, eggs and baked goods. Triglyceride goal of less than 150 and LDL goal of less than 70. (7) Essential hypertension: Code(s): I10 - Essential (primary) hypertension Category: Medical Plan: Continue on current blood pressure medication. Avoid salt intake and encourage healthy diet and regular exercise. Plan This note was constructed using voice recognition software. While every effort has been made to ensure accuracy and inset cutter, still areas may have been included sometimes these areas may affect the content or meeting of the given symptoms. Total time spent caring for the patient today was 30 minutes. This includes time spent before the visit reviewing the chart, time spent during the visit, and time spent after the visit and documentation. Orders: Orders UA CC w/rflx Micro + Cult Today R35.89 - Other polyuria AMB Urinalysis Dipstick Today Z13.9 - Encounter for screening, unspecified Referrals Cardiology Referral I48.91 - Unspecified atrial fibrillation, I50.23 - Acute on chronic systolic (congestive) heart failure Medications: New famotidine 20 mg PO DAILY 30 tabs 1RF nitrofurantoin monohyd/m-cryst 100 mg (Macrobid) must administer with a meal/food 100 mg PO Q12H 5 days 10 caps 0RF Refilled pregabalin 100 mg PO Q12H 30 days 60 caps 2RF M51.36 - Other intervertebral disc degeneration, lumbar region tamsulosin 0.4 mg PO BEDTIME 1 cap 0RF digoxin 125 mcg PO .MWF 1 tab 0RF digoxin 125 mcg PO .MWF 12 tabs 3RF
== END 2024-03-18 14:52 | disposition home or self-care (01) ==
PROVIDERS: PCP Internal Medicine
DX: I11.0 Hypertensive heart disease with heart failure (principal); E11.65 Type 2 diabetes mellitus with hyperglycemia; I48.91 Unspecified atrial fibrillation; I50.23 Acute on chronic systolic (congestive) heart failure; R33.8 Other retention of urine; N30.90 Cystitis, unspecified without hematuria; E78.5 Hyperlipidemia, unspecified

== ENCOUNTER 2024-03-20 05:34 | Emergency (ER) | payer MEDICARE, OTHER, SELFPAY ==
[2024-03-20 05:51] VITALS: BP 145/72; BP 146/64; PULSE 80; RESP 16; TEMP 36.5; O2SAT 94; O2SAT 95; BMI 26.6
[2024-03-20 06:22] LABS: MANUAL DIFF FLAG NO
[2024-03-20 06:24] LABS: Appearance Urine Clear; Color Urine Yellow; Glucose Urine UA >=1000 mg/dL (Negative); Leukocyte Esterase Urine Small (1+) (Negative); Nitrite Urine Negative (Negative); Specific Gravity - Urine 1.015 (1.005-1.025); UMIC TRIGGER UACC YES; Urine Blood Negative (Negative); Urine Ketones Negative (Negative); Urine Protein Negative (Neg-Trace)
[2024-03-20 06:26] LABS: Bacteria Urine None Seen (None Seen); Hyaline Casts Urine 0-2 /LPF (0-2); RBC Urine 0-2 /HPF (0-2); UACC Culture Trigger YES; WBC Urine 21-50 /HPF (0-5)
[2024-03-20 06:26] LABS: Basophils Percent Auto 0.4 % (0-2); Eosinophils Absolute Auto 0.3 X10*3/uL (0.0-0.4); Eosinophils Percent Auto 3.5 % (0-4); Hematocrit 39.4 % (37.0-47.0); Hemoglobin 12.3 g/dl (12.0-16.0); Imm Gran Abs Auto 0.03 X10*3/uL (0.00-0.03); Imm Gran Pct Auto 0.4 % (0.0-0.4); Lymphocytes Absolute Auto 1.4 X10*3/uL (1.2-4.9); Lymphocytes Percent Auto 20.3 % (20-40); Mean Corpuscular HGB Conc 31.2 g/dl (31.0-35.0); Mean Corpuscular Hemoglobin 27.5 pg (27.0-33.0); Mean Corpuscular Volume 87.9 fL (80.0-98.0); Monocytes Absolute Auto 1.1 X10*3/uL (0.1-1.2); Monocytes Percent Auto 15.5 % (2-11); Neutrophils Absolute Auto 4.2 x10*3/uL (2.0-8.3); Neutrophils Percent Auto 59.9 % (45-73); Platelet Count 195 X10*3/uL (160-400); Red Blood Count 4.48 X10*6/uL (4.20-5.50); Red Cell Distribution Width 15.4 % (11.0-16.0); White Blood Count 7.1 X10*3/uL (4.8-10.8)
--- NOTE | 2024-03-20 06:28 | MHC.EDTECH ---
Patient ELOISA,changed into hospital attire,patient got up to the commode with a 1 assist,urinated 100MLS of yellow urine,urine sample obtained,labs drawn and sent to lab,call otto in reach
[2024-03-20 06:36] LABS: Anion Gap 14 (12-20); Blood Urea Nitrogen 19 mg/dL (9-16); Calcium 8.9 mg/dL (8.4-10.2); Carbon Dioxide 27 mmol/L (22-29); Chloride 107 mmol/L (96-108); Creatinine Clr Calc Pharmacy 40.4; Estimated Glomerular Filt Rate 55; Glucose Random 212 mg/dL (60-115); Potassium 3.6 mmol/L (3.3-5.1); Sodium 144 mmol/L (135-145)
--- NOTE | 2024-03-20 07:24 | ED_ITS ---
HPI - General Adult General Chief complaint: General Medical Stated complaint: v/d, unsteady gait 24hrs, Taking meds for UTI Time Seen by Provider: 03/20/24 06:26 Source: patient, EMS, RN notes reviewed and old records reviewed Mode of arrival: EMS Limitations: no limitations History of Present Illness ED Provider: Kasie Figueroa PA-C HPI narrative: 88 yo female with history of afib on Eliquis, dementia, CHF, COPD, DM2, HTN, HLD, GERD, anxiety, aortic stenosis, pleural effusion, CAD who presents to the ER from home c/o nausea and vomiting after starting antibiotics for a UTI. She states she took 2 doses of the medication and started vomiting. She think she is allergic to it. She reports ongoing bladder pain and vaginal pain. She states she has a red painful rash on her vagina and in her inguinal region. She reports some subjective fevers and chills. No chest pain, SOB, diarrhea, headache, weakness, numbness or tingling. MD complaint: N/V Onset (ago): day(s) (1) Location: abdomen and genitals Radiation: non-radiation Severity: moderate Quality: burning and aching Pain Consistency: constant Relieving factors: none Exacerbating factors: none Associated symptoms: loss of appetite, malaise and nausea/vomiting Treatments prior to arrival: none Related Data Home Medications ?Medication ?Instructions ?Recorded ?Confirmed cyanocobalamin (vitamin B-12) 1,000 mcg PO DAILY 08/06/23 03/18/24 1,000 mcg tablet (Vitamin B-12) tramadol 50 mg tablet 50 mg PO DAILY PRN Pain 08/06/23 03/18/24 blood-glucose meter (OneTouch 01/07/24 01/20/24 Verio Flex Start kit) albuterol sulfate 90 mcg/actuation 1 puff inhalation QID 01/10/24 03/18/24 aerosol inhaler atorvastatin 40 mg tablet (Lipitor) 40 mg PO BEDTIME 01/10/24 03/18/24 dexlansoprazole 60 mg 60 mg PO DAILY@0630 01/10/24 03/18/24 capsule,biphase delayed release (Dexilant) diclofenac sodium 1 % topical gel 4 g topical QID Pain 01/10/24 03/18/24 (Arthritis Pain (diclofenac)) montelukast 10 mg tablet 10 mg PO BEDTIME 01/10/24 03/18/24 (Singulair) alprazolam 0.25 mg tablet 0.25 mg PO DAILY PRN anxiety 02/15/24 03/18/24 empagliflozin 10 mg tablet 10 mg PO QAM 03/18/24 03/18/24 Previous Rx's ?Medication ?Instructions ?Recorded pediatric front wheel walker #1 ea 09/02/23 PEDIATRIC FRONT WHEELED WALKER #1 ea 09/18/23 apixaban 2.5 mg tablet (Eliquis) 2.5 mg PO BID #180 tabs 09/22/23 lancets 28 gauge (FreeStyle #100 ea 11/17/23 Lancets) furosemide 40 mg tablet 40 mg PO DAILY #90 tabs 12/19/23 metoprolol succinate 50 mg 50 mg PO DAILY 90 days #90 tabs 12/19/23 tablet,extended release 24 hr folic acid 1 mg tablet 1 mg PO DAILY #90 tabs 01/02/24 ascorbic acid (vitamin C) 500 mg 500 mg PO DAILY #90 tabs 01/09/24 tablet (Vitamin C) zolpidem 5 mg tablet 5 mg PO BEDTIME PRN insomnia #90 01/20/24 tabs cholecalciferol (vitamin D3) 25 25 mcg PO DAILY #90 caps 02/04/24 mcg (1,000 unit) capsule digoxin 125 mcg (0.125 mg) tablet 125 mcg PO .MWF #12 tabs 03/18/24 famotidine 20 mg tablet 20 mg PO DAILY #30 tabs 03/18/24 nitrofurantoin 100 mg PO Q12H 5 days #10 caps 03/18/24 monohydrate/macrocrystals 100 mg capsule (Macrobid) pregabalin 100 mg capsule 100 mg PO Q12H 30 days #60 caps 03/18/24 tamsulosin 0.4 mg capsule 0.4 mg PO BEDTIME #1 cap 03/18/24 amoxicillin 875 mg-potassium 1 tab PO BID #13 tabs 03/20/24 clavulanate 125 mg tablet nystatin 100,000 unit/gram topical 1 appl topical BID 7 days #30 grams 03/20/24 ointment ondansetron 4 mg disintegrating 4 mg PO Q8H PRN nausea and 03/20/24 tablet vomiting #7 tabs Allergies Allergy/AdvReac Type Severity Reaction Status Date / Time ciprofloxacin Allergy Severe unknown Verified 03/20/24 05:53 aspirin [Aspirin] Allergy Unknown UNKNOWN Verified 03/20/24 05:53 cefuroxime Allergy Unknown Unknown Verified 03/20/24 05:53 celecoxib [From Celebrex] Allergy Unknown UNKNOWN Verified 03/20/24 05:53 metformin Allergy Unknown diarrhea Verified 03/18/24 14:07 risedronate sodium Allergy Unknown UNKNOWN Verified 03/20/24 05:53 [From Actonel] Sulfa (Sulfonamide Allergy Unknown unknown Verified 03/20/24 05:53 Antibiotics) bupropion AdvReac Intermediate tremor Verified 03/20/24 05:53 ferrous sulfate AdvReac Intermediate tremors Verified 03/20/24 05:53 sertraline AdvReac Intermediate tremors Verified 03/20/24 05:53 Review of Systems 2 Review of Systems: Yes all other systems are reviewed and are negative [facility] Past Medical History Medical History Type 2 diabetes mellitus with hyperglycemia Diabetes mellitus Asthma Hypokalemia Hypomagnesemia Diarrhea Hearing difficulty Dyspnea on exertion History of gastrointestinal diverticular hemorrhage COVID-19 virus infection Rectal bleeding Medicare annual wellness visit, initial Hip pain, left Patellar sleeve fracture of right knee Knee pain, right Nausea and vomiting Coarse tremors Shoulder pain, right Hospital discharge follow-up Mass on back Constipation Tinea corporis Nausea Right wrist pain Left knee pain Left hip pain Toe pain, left Breast cancer screening by mammogram UTI (urinary tract infection) Obesity (BMI 30-39.9) Lipoma of lower back Urinary frequency Toe fracture, left Pancreatic cyst Osteoporosis Peptic ulcer disease Urinary incontinence Rectal incontinence GERD (gastroesophageal reflux disease) Bile salt-induced diarrhea Vaginal prolapse Renal artery stenosis Asthma Lumbar degenerative disc disease Insomnia TIA (transient ischemic attack) Hyperlipidemia, unspecified Essential hypertension Surgical History Hx of colonoscopy History of esophagogastroduodenoscopy (EGD) History of removal of cyst (~10/17/21) History of hemorrhoidectomy History of colectomy History of section History of hysterectomy History of appendectomy History of cholecystectomy Family History Family History Father Cancer Arterial thrombosis Mother Multiple sclerosis Muscular dystrophy Hypertension Depression Chronic mental illness Mental health disorder Brother No problems noted. Brother Gangrene Sister No problems noted. Son No problems noted. Son No problems noted. Son No problems noted. Son No problems noted. Daughter No problems noted. Daughter No problems noted. Daughter No problems noted. Social History Social History Household Members: None Housing: Apartment Do you presently have visiting nurse or other home services: No Alcohol intake: former Comment: 1:1 sitter Patient Tobacco Use Status: Former Tobacco user Tobacco use type: Cigarette Years Smoked: 22 e-Cigarette/Vaping Use: Former Use Second Hand Smoke Exposure: No Advance Directives: Yes Advance Directives on File: Yes Advance Directives Date on File: 08/06/23 Do you have a plan to hurt others: No Plan service: No Current occupational status: disabled Current occupational exposures/hazards: No Cognitive needs: Yes Hearing needs: Yes Vision needs: Yes Physical Exam ED Vital Signs: Vital Signs - 24 hr 03/20/24 05:51 Temperature 97.7 F Pulse Rate 80 Respiratory Rate 16 Blood Pressure 146/64 H Pulse Oximetry 94 Oxygen Delivery Method Room Air BMI result Body Mass Index 26.6 Appearance: Alert elderly female laying in the stretcher. Oriented X3. No acute distress. Head: normocephalic, atraumatic. Eyes: Pupils equal, round and reactive to light. ENT: Pharynx normal. No tonsillar swelling or exudate. Neck: Normal inspection. Neck supple. CVS: Normal heart rate and rhythm. Pulses normal. Respiratory: No respiratory distress. Breath sounds normal. Abdomen: Obsese, Soft and with suprapubic tenderness, normal active +BS x4 : erythematous, beefy red well demarcated rash on the mons pubis and bilateral inguinal folds. Skin: Skin warm and dry. Normal skin color. Normal skin turgor. No rashes. Extremities: No lower extremity edema. No joint swelling. Neuro/psych: Oriented X 3. No motor deficit. No sensory deficit. CN II-XII intact. Normal speech and cognition. Medications Administered Discontinued Medications Generic Name Dose Route Start Last Admin Trade Name Freq PRN Reason Stop Dose Admin Amoxicillin/Clavulanate Potassium 875 mg 03/20/24 06:39 03/20/24 07:49 Amoxicillin/Potassium Clav 875 Mg Tablet PO 03/20/24 06:40 875 mg ONCE ONE Administration Sodium Chloride 1,000 mls @ 999 mls/hr 03/20/24 06:45 03/20/24 09:03 Ns IV 03/20/24 07:45 Infused .Q1H1M JAREK Infusion Nystatin 1 appl 03/20/24 06:36 03/20/24 07:49 Nystatin Powder 15 Gm Bottle TOPICAL 03/20/24 06:37 1 appl ONCE ONE Administration Protocol Ondansetron HCl 4 mg 03/20/24 06:36 03/20/24 07:49 Ondansetron Hcl 4 Mg/2 Ml Vial IVPUSH 03/20/24 06:37 4 mg ONCE ONE Administration Medical Decision Making Medical Decision Making [facility] Narrative: 88 yo female with history of afib on Eliquis, dementia, CHF, COPD, DM2, HTN, HLD, GERD, anxiety, aortic stenosis, pleural effusion, CAD who presents to the ER from home c/o nausea and vomiting after starting antibiotics for a UTI. She states she took 2 doses of the medication and started vomiting. Medication was nitrofutantion. She has allergies to cipro, cephalosporins and sufla meds. she does not know the exact reactions for each. Her UA today is positive. She has no fever, leukocytosis, or tachycardia to suggest sepsis. PO augmentin ordered for UTI along with zofran and some IVF given her N/V. Patient tolerated the p.o. Augmentin. Bladder scan did not reveal any urinary retention. After treatments patient was feeling better. She lives home alone and was offered physical therapy evaluation for potential rehab or home services. Patient states she does not need any of that and was refusing. She would like to go home. She states her sister can pick her up. Will discharge home with oral antibiotics, antiemetics, topical nystatin cream for fungal infection. Return precautions were discussed. Differential Diagnosis Differential Diagnoses: The differential diagnosis associated with the presentation includes allergic reaction, adverse medication reaction, dehydration, FLACO, UTI, electrolyte derangement, yeast infection Admission/Observation Consideration of admission/observation: Escalation of care including admission/observation considered Lab Data [facility] Lab Attestation statement: I reviewed the patient's lab results. No leukocytosis, normal renal function, mild hyperglycemia with no anion gap, mild elevation of BUN 03/20/24 06:13 10/19/24 06:13 Labs: Lab Results 03/20/24 03/20/24 Range/Units 06:11 06:13 WBC 7.1 (4.8-10.8) X10*3/uL RBC 4.48 (4.20-5.50) X10*6/uL Hgb 12.3 (12.0-16.0) g/dl Hct 39.4 (37.0-47.0) % MCV 87.9 (80.0-98.0) fL MCH 27.5 (27.0-33.0) pg MCHC 31.2 (31.0-35.0) g/dl RDW 15.4 (11.0-16.0) % Plt Count 195 (160-400) X10*3/uL MPV 11.0 (9.4-12.3) fL Immature Gran % (Auto) 0.4 (0.0-0.4) % Neut % (Auto) 59.9 (45-73) % Lymph % (Auto) 20.3 (20-40) % [place] % (Auto) 15.5 H (2-11) % Eos % (Auto) 3.5 (0-4) % Baso % (Auto) 0.4 (0-2) % Lymph # (Auto) 1.4 (1.2-4.9) X10*3/uL [place] # (Auto) 1.1 (0.1-1.2) X10*3/uL Eos # (Auto) 0.3 (0.0-0.4) X10*3/uL Baso # (Auto) 0.0 (0.0-0.2) X10*3/uL Abs Immat Gran (auto) 0.03 (0.00-0.03) X10*3/uL Absolute Neuts (auto) 4.2 (2.0-8.3) x10*3/uL Absolute Nucleated RBC 0.000 (0.0-0.012) X10*3/uL Nucleated RBC % (auto) 0.0 (0.0-0.2) /100WBC Sodium 144 (135-145) mmol/L Potassium 3.6 (3.3-5.1) mmol/L Chloride 107 (96-108) mmol/L Carbon Dioxide 27 (22-29) mmol/L Anion Gap 14 (12-20) BUN 19 H (9-16) mg/dL Creatinine 0.96 (0.5-1.4) mg/dL Estim Creat Clear Calc 40.4 Estimated GFR 55 Random Glucose 212 H (60-115) mg/dL Calcium 8.9 D (8.4-10.2) mg/dL Urine Color Yellow Urine Appearance Clear Urine pH 7.0 (5.0-9.0) Ur Specific [place] 1.015 (1.005-1.025) Urine Protein Negative (Neg-Trace) mg/dL Urine Glucose (UA) >=1000 H (Negative) mg/dL Urine Ketones Negative (Negative) mg/dL Urine Blood Negative (Negative) Urine Nitrite Negative (Negative) Ur Leukocyte Esterase Small (1+) H (Negative) Urine RBC 0-2 (0-2) /HPF Urine WBC 21-50 H (0-5) /HPF Ur Squamous Epith Cells 3-5 (0-2) /HPF Urine Bacteria None Seen (None Seen) Hyaline Casts 0-2 (0-2) /LPF Independent Historian Clinical information obtained from an independent historian. History obtained from or confirmed by: EMS External Record Review External record reviewed: Inpatient record, Outpatient record, Prior outpatient labs and Prior outpatient radiology Tests considered The following testing was considered but not selected: Considered CT scan of the abdomen however pain is in the bladder region consistent with bladder infection Prescription Management I considered prescription management with: Pain Medication and Antibiotic Chronic Conditions Patient?s care impacted by: Other (Dementia, CHF, diabetes) Social Determinants Patient?s care significantly limited by Social Determinants of Health including: Problems related to primary support group and Other Social Determinant of Health (Lives home alone) Critical Care Time Critical Care Time Critical Care Time: No Discharge Plan Discharge Clinical Impression: Acute UTI, Yeast infection involving the vagina and surrounding area Patient Disposition: Home, Self-Care Instructions: Skin Yeast Infection (ED), Urinary Tract Infection in Older Adults (ED) Additional Instructions: Short-term rehab was encouraged however you will refusing this today. Your lab workup today was reassuring. Your being started on a different antibiotic for your urinary tract infection. Your given 1st dose today in the emergency department. Next dose is due this evening. Rest and drink plenty of fluids. Take the prescribed nausea medication as needed. Use the prescribed antifungal ointment to your vaginal area 2 times a day for at least a week until symptoms resolve. Recommend following up with your doctor next week. If you develop new or worsening symptoms call 911 or come back to the ER for further evaluation. Prescriptions: New amoxicillin-pot clavulanate 875-125 mg tablet 1 tab PO BID Qty: 13 0RF ondansetron 4 mg tablet,disintegrating 4 mg PO Q8H PRN (Reason: nausea and vomiting) Qty: 7 0RF nystatin 100,000 unit/gram ointment 1 appl topical BID 7 Days Qty: 30 1RF No Action (DME) pediatric front wheel walker See Rx Instructions .Route .MEDSUPPLY Qty: 1 0RF Rx Instructions: As directed Eliquis 2.5 mg tablet 2.5 mg PO BID Qty: 180 3RF (DME) lancets [FreeStyle Lancets] 28 gauge misc See Rx Instructions .ROUTE .MEDSUPPLY Qty: 100 3RF Rx Instructions: use to test sugar once a day metoprolol succinate 50 mg tablet extended release 24 hr 50 mg PO DAILY 90 Days Qty: 90 2RF furosemide 40 mg tablet 40 mg PO DAILY Qty: 90 2RF folic acid 1 mg tablet 1 mg PO DAILY Qty: 90 2RF (DME) blood-glucose meter [OneTouch Verio Flex Start] Kit See Rx Instructions .Route Rx Instructions: Test twice a day ascorbic acid (vitamin C) [Vitamin C] 500 mg tablet 500 mg PO DAILY Qty: 90 1RF zolpidem 5 mg tablet 5 mg PO BEDTIME PRN (Reason: insomnia) Qty: 90 0RF tramadol 50 mg tablet 50 mg PO DAILY PRN (Reason: Pain) cyanocobalamin (vitamin B-12) [Vitamin B-12] 1,000 mcg Tablet 1,000 mcg PO DAILY diclofenac sodium [Arthritis Pain (diclofenac)] 1 % gel 4 g topical QID Rx Instructions: apply to single knee, ankle, foot; for foot includes sole/toes/top of foot albuterol sulfate 90 mcg/actuation Hfa Aerosol Inhaler 1 puff INHALATION QID montelukast [Singulair] 10 mg tablet 10 mg PO BEDTIME dexlansoprazole [Dexilant] 60 mg capsule,biphase delayed releas 60 mg PO DAILY@0630 atorvastatin [Lipitor] 40 mg tablet 40 mg PO BEDTIME alprazolam 0.25 mg tablet 0.25 mg PO DAILY PRN (Reason: anxiety) (DME) PEDIATRIC FRONT WHEELED WALKER See Rx Instructions .Route .MEDSUPPLY Qty: 1 0RF Rx Instructions: As directed cholecalciferol (vitamin D3) 25 mcg (1,000 unit) capsule 25 mcg PO DAILY Qty: 90 1RF empagliflozin 10 mg tablet 10 mg PO QAM pregabalin 100 mg capsule 100 mg PO Q12H 30 Days Qty: 60 2RF tamsulosin 0.4 mg capsule 0.4 mg PO BEDTIME Qty: 1 0RF famotidine 20 mg tablet 20 mg PO DAILY Qty: 30 1RF digoxin 125 mcg (0.125 mg) tablet 125 mcg PO .MWF Qty: 12 3RF nitrofurantoin monohyd/m-cryst [Macrobid] 100 mg capsule 100 mg PO Q12H 5 Days Qty: 10 0RF Rx Instructions: must administer with a meal/food Print Language: Persian
[2024-03-20] MEDS: ondansetron HCL 4 MG/2 ML VIAL IVPUSH (07:49)
[2024-03-20] MEDS: Amoxicillin/Potassium Clav 875 MG TABLET PO (07:49)
[2024-03-20] MEDS: Nystatin Powder 15 GM BOTTLE 1 APPL TOPICAL (07:49)
[2024-03-20] MEDS: 0.9 % Sodium Chloride 1,000 ML 999 ML IV (07:49)
[2024-03-20 09:47] VITALS: BP 146/64; PULSE 80; RESP 16; TEMP 36.5; O2SAT 94
== END 2024-03-20 09:52 | disposition home or self-care (01) ==
PROVIDERS: Emergency Provider Emergency Medicine; PCP Internal Medicine
DX: B37.31 Acute candidiasis of vulva and vagina (principal); N39.0 Urinary tract infection, site not specified; R11.10 Vomiting, unspecified; E11.9 Type 2 diabetes mellitus without complications; I10 Essential (primary) hypertension; E78.5 Hyperlipidemia, unspecified; I48.91 Unspecified atrial fibrillation; Z79.01 Long term (current) use of anticoagulants; Z86.73 Personal history of transient ischemic attack (TIA), and cerebral infarction without residual deficits; J45.909 Unspecified asthma, uncomplicated; Z03.818 Encounter for observation for suspected exposure to other biological agents ruled out; Z87.891 Personal history of nicotine dependence
CPT/HCPCS: 36415; 51798; 80048; 81001; 85025; 87086; 96361; 96374; 99284; J2405

== ENCOUNTER 2024-04-07 11:08 | Outpatient (AMB) | payer MEDICARE, OTHER, SELFPAY ==
--- NOTE | 2024-04-07 11:10 | A.OFFPC_ITS ---
Vital Signs 04/07/24 11:11 Height 5 ft 4 in Weight 147 lb BMI 25.2 BP 120/72 Blood Pressure Location Lt brachial Position Sitting Pulse 83 Pulse Source Pulse Oximeter Pulse Oximetry (%) 94 Oxygen Delivery Method Room Air Intake Visit Reasons: 2 month F/U Allergies ciprofloxacin Allergy (Severe, Verified 04/07/24 11:13) unknown aspirin [Aspirin] Allergy (Unknown, Verified 04/07/24 11:13) UNKNOWN cefuroxime Allergy (Unknown, Verified 04/07/24 11:13) Unknown celecoxib [From Celebrex] Allergy (Unknown, Verified 04/07/24 11:13) UNKNOWN metformin Allergy (Unknown, Verified 04/07/24 11:13) diarrhea risedronate sodium [From Actonel] Allergy (Unknown, Verified 04/07/24 11:13) UNKNOWN Sulfa (Sulfonamide Antibiotics) Allergy (Unknown, Verified 04/07/24 11:13) unknown bupropion Adverse Reaction (Intermediate, Verified 04/07/24 11:13) tremor ferrous sulfate Adverse Reaction (Intermediate, Verified 04/07/24 11:13) tremors sertraline Adverse Reaction (Intermediate, Verified 04/07/24 11:13) tremors Medication List - Last Reconciled 04/07/24 by Soledad Agudelo PA-C albuterol sulfate 90 mcg/actuation 1 puff inhalation QID alprazolam 0.25 mg PO DAILY PRN apixaban (Eliquis) 2.5 mg PO BID ascorbic acid (vitamin C) (Vitamin C) 500 mg PO DAILY atorvastatin (Lipitor) 40 mg PO BEDTIME blood-glucose meter ([employer]Touch Verio Flex Start kit) Test twice a day cholecalciferol (vitamin D3) 25 mcg PO DAILY cyanocobalamin (vitamin B-12) (Vitamin B-12) 1,000 mcg PO DAILY dexlansoprazole (Dexilant) 60 mg PO DAILY@0630 diclofenac sodium 1% (Arthritis Pain (diclofenac)) 4 grams topical QID digoxin 125 mcg PO 3XW empagliflozin 10 mg PO QAM famotidine 20 mg PO DAILY folic acid 1 mg PO DAILY furosemide 40 mg PO DAILY lancets (FreeStyle Lancets) use to test sugar once a day meclizine 12.5 mg PO TID PRN metoprolol succinate ER 50 mg PO DAILY 90 days montelukast (Singulair) 10 mg PO BEDTIME nystatin 1 appl topical BID 7 days nystatin 1 appl topical DAILY ondansetron 4 mg PO Q8H PRN [pediatric front wheel walker As directed] [PEDIATRIC FRONT WHEELED WALKER As directed] pregabalin 100 mg PO Q12H 30 days tamsulosin 0.4 mg PO BEDTIME tramadol 50 mg PO DAILY PRN zolpidem 5 mg PO BEDTIME PRN Tobacco use date assessed: 10/17/23 Fall risk assessment: No Falls in past year Last assessed Fall Risk: 04/07/24 Dental Screening Dental Screen Date: 09/18/23 HPI 2 month F/U HPI Details 89-year-old female with past medical his tory of hypertension, hypercholesterolemia, GERD, diabetes mellitus, generalized anxiety disorder, coronary artery disease, to congestive heart failure, lumbar degenerative disc disease, atrial fibrillation, COPD last seen March 2024 coming in for follow up. In review of the notes, patient was seen in [facility] [place] found to have acute UTI without urinary retention and was discharged home on oral antibiotics, antiemetics and topical nystatin cream for fungal infection. Patient has several concerns today. The 1st being she has been having loose stool for the last 3 days and has been using Imodium. She states she feels like she has gas and when she strains to pass gas she will have loss of loose stool. Denies any diarrhea or fevers. She did have 1 episode of possibly seeing blood in the stool which resolved. She does mentioned having chronic abdominal pain but does feel she has been having epigastric and umbilical abdominal pain worsening over the last week. She does mentioned the itching around the vulva initially resolved with the clotrimazole cream but has returned and denies any vaginal itching or discharge. She also mentions intermittent dizziness when moving from sitting to standing that last for several minutes before resolving spontaneously. [facility] Medical History (Updated 04/07/24 @ 12:24 by Soledad Agudelo PA-C) Type 2 diabetes mellitus with hyperglycemia Diabetes mellitus Asthma Hypokalemia Hypomagnesemia Diarrhea Hearing difficulty Dyspnea on exertion History of gastrointestinal diverticular hemorrhage COVID-19 virus infection Rectal bleeding Medicare annual wellness visit, initial Hip pain, left Patellar sleeve fracture of right knee Knee pain, right Nausea and vomiting Coarse tremors Shoulder pain, right Hospital discharge follow-up Mass on back Constipation Tinea corporis Nausea Right wrist pain Left knee pain Left hip pain Toe pain, left Breast cancer screening by mammogram UTI (urinary tract infection) Obesity (BMI 30-39.9) Lipoma of lower back Urinary frequency Toe fracture, left Pancreatic cyst Osteoporosis Peptic ulcer disease Urinary incontinence Rectal incontinence GERD (gastroesophageal reflux disease) Bile salt-induced diarrhea Vaginal prolapse Renal artery stenosis Asthma Lumbar degenerative disc disease Insomnia TIA (transient ischemic attack) Hyperlipidemia, unspecified Essential hypertension Surgical History Hx of colonoscopy History of esophagogastroduodenoscopy (EGD) History of removal of cyst (~10/17/21) History of hemorrhoidectomy History of colectomy History of section History of hysterectomy History of appendectomy History of cholecystectomy Family History Father Cancer Arterial thrombosis Mother Multiple sclerosis Muscular dystrophy Hypertension Depression Chronic mental illness Mental health disorder Brother No problems noted. Brother Gangrene Sister No problems noted. Son No problems noted. Son No problems noted. Son No problems noted. Son No problems noted. Daughter No problems noted. Daughter No problems noted. Daughter No problems noted. Social History Household Members: None Housing: Apartment Do you presently have visiting nurse or other home services: No Alcohol intake: former Comment: 1:1 sitter Patient Tobacco Use Status: Former Tobacco user Tobacco use type: Cigarette Years Smoked: 22 e-Cigarette/Vaping Use: Former Use Second Hand Smoke Exposure: No Advance Directives Date on File: 08/06/23 service: No Current occupational status: disabled Current occupational exposures/hazards: No Cognitive needs: Yes Hearing needs: Yes Vision needs: Yes Questionnaire Thrive Questionnaire Date Thrive assessed: 02/16/24 AUDIT C Alcohol Use Questionnaire (AUDIT-C) 1. How often do you have a drink containing alcohol?: Never 3. How often do you have six or more drinks on one occasion?: Never Total Score: 0 Score Reviewed/Action Taken: No MERY-7 AMB Questionnaire MERY-7 Date MERY - 7 assessed: 09/18/23 Source: Developed by Drs. Brandon Villeda, Vijaya Damon, Jaydon Kroenke a nd colleagues, with an educational phi from [employer] Review of Systems Const Denies body aches, Denies chills, Denies fever(s), Denies lethargy and Denies weakness Eyes Reports no additional complaints ENT Reports no additional complaints and Reports dizziness Card Denies chest pain, Denies leg edema, Denies lightheadedness and Denies dyspnea Resp Denies dyspnea GI Reports as per HPI Reports no additional complaints Skin/Breast Details: Itchy rash on the vulva and thighs Neuro Reports dizziness and Denies weakness Physical exam (Primary Care) Vital Signs: Last Vital Signs Pulse 83 04/07/24 11:11 BP 120/72 04/07/24 11:11 Pulse Ox 94 04/07/24 11:11 Oxygen Delivery Method Room Air 04/07/24 11:11 BMI result Body Mass Index 25.2 Tobacco/Smoking Status: Tobacco use Status Tobacco use date assessed 10/17/23 04/07/24 11:15 Patient Tobacco Use Status Former Tobacco user 04/07/24 11:15 Tobacco use type Cigarette 04/07/24 11:15 e-Cigarette/Vaping Use Former Use 04/07/24 11:15 Thrive Assessment: Date of Thrive Assessment Date Thrive assessed 02/16/24 04/07/24 11:15 Const General: cooperative, healthy appearing, comfortable and no acute distress Orientation/consciousness: patient oriented x3 HENMT Head: Yes normocephalic Ears: hearing grossly normal bilaterally General nose exam: Normal external nose present Eyes General: appearance normal, both eyes and all related structures Conjunctivae: conjunctivae normal Neck Neck: Yes full ROM and Yes no lymphadenopathy Resp Effort & Inspection: normal respiratory effort Auscultation: clear to auscultation bilaterally, no crackles, no rales, no rhonchi and no wheezes Cardio Rate: regular rate Rhythm: regular rhythm GI Palpation (GI): Soft to palpation, not firm, Tenderness to palpation present (GI) (Generalized), no guarding, not rigid and No Rebound tenderness present General: Yes no CVA tenderness Back/Spine/Pelvis Back: no CVA tenderness Skin General skin exam: no rashes or lesions noted Neuro General: patient oriented x3 Gait exam (Neuro): Normal gait present Extrem General: Yes normal to inspection, Yes full ROM and No edema Psych Affect: normal affect Attitude: cooperative Insight: Good insight present (Psych) Judgement: Good judgement present (Psych) Results AMB Urinalysis, Automated UA Leukoctes 0 Didi/uL Last Edit by Mahirenee Jurado Rogerio on 04/07/24 11:40 UA Nitrite Negative Last Edit by Mahi Rhiannon [facility] on 04/07/24 11:40 UA Urobilinogen 0.2 mg/dL Last Edit by Mahirenee Jurado Rogerio on 04/07/24 11:40 UA Protein 0 mg/dL Last Edit by Mahirenee Jurado [facility] on 04/07/24 11:40 UA pH 7.0 Last Edit by Mahirenee Jurado [facility] on 04/07/24 11:40 UA Blood 0 Jose Maria/uL Last Edit by Mahirenee Jurado [facility] on 04/07/24 11:40 UA Specific Maurice 1.010 Last Edit by Mahirenee Jurado [facility] on 04/07/24 11:40 UA Ketone Negative Last Edit by Mahirenee Jurado Rogerio on 04/07/24 11:40 UA Bilirubin 0 mg/dL Last Edit by Mahirenee Jurado [facility] on 04/07/24 11:40 UA Glucose 2 mg/dL Last Edit by Mahirenee Jurado [facility] on 04/07/24 11:40 Coding Level of Care Code Est Pt Level 4 (61376) Diagnoses Cystitis N30.90 Rectal incontinence R15.9 Essential hypertension I10 Generalized abdominal pain R10.84 Yeast infection of the skin B37.2 Dizziness and giddiness R42 Assessment & Plan Assessment & Plan (1) Cystitis: Code(s): N30.90 - Cystitis, unspecified without hematuria Category: Medical Plan: No evidence of infection on exam today, no suprapubic tenderness or CVA tenderness. Urinalysis clear. Advised patient to continue to monitor symptoms and strongly advised patient to reach out to urology office for follow up appointment. (2) Rectal incontinence: Code(s): R15.9 - Full incontinence of feces Category: Medical Plan: Patient does have a history of rectal incontinence and sphincter weakness. Discussed with patient due to Imodium use she may be having overflow diarrhea due to constipation. Advised patient to trial fiber supplement and follow up if the incontinence continues. Patient is able to pass gas and low suspicion for complete obstruction at this time. No fevers or diarrhea and low suspicion for diverticulitis. Discussed red flag symptoms and when to return to the ER. (3) Essential hypertension: Code(s): I10 - Essential (primary) hypertension Category: Medical Plan: Continue on current blood pressure medication. Avoid salt intake and encourage healthy diet and regular exercise. (4) Generalized abdominal pain: Code(s): R10.84 - Generalized abdominal pain Category: Medical Plan: On exam today no evidence of acute abdomen requiring imaging or intervention at this time. Most likely related to constipation. Advised patient to monitor symptoms and reviewed red flag symptoms and when to return to the ER. (5) Yeast infection of the skin: Code(s): B37.2 - Candidiasis of skin and nail Category: Medical Plan: Patient continues to have yeast infection around the vulva and inner thighs. Recent prescription for nystatin cream as well as the powder for maintenance to be used after the initial infection resolves. Advised patient to follow up to the office if the itchiness does not resolve. (6) Dizziness and giddiness: Code(s): R42 - Dizziness and giddiness Category: Medical Plan: Patient's symptoms most consistent with orthostatic hypotension rather than true vertigo. She does not endorse a room spinning sensation and endorses having lightheadedness when going from sitting to standing. Discussed maintaining good hydration status as well as lifestyle modification. Advised patient to move slower when going from sitting or lying down to standing to ensure blood pressure does not drop. Patient is also requesting meclizine that she has had this in the past which helped for prolonged episodes of dizziness. Prescription sent Plan This note was constructed using voice recognition software. While every effort has been made to ensure accuracy and pest control applicator, still areas may have been included sometimes these areas may affect the content or meeting of the given symptoms. Total time spent caring for the patient today was 30 minutes. This includes time spent before the visit reviewing the chart, time spent during the visit, and time spent after the visit and documentation. Orders: Orders AMB Urinalysis Automated Today R30.0 - Dysuria Medications: New nystatin 1 appl topical DAILY 15 grams 0RF meclizine 12.5 mg PO TID PRN 14 tabs 0RF dizziness Refilled nystatin 1 appl topical BID 7 days 30 grams 1RF
[2024-04-07 11:11] VITALS: BP 120/72; PULSE 83; O2SAT 94; BMI 25.2
== END 2024-04-07 11:56 | disposition home or self-care (01) ==
LOC: HO.HMCH 11:09
PROVIDERS: PCP Internal Medicine
DX: N30.90 Cystitis, unspecified without hematuria (principal); R15.9 Full incontinence of feces; I10 Essential (primary) hypertension; R10.84 Generalized abdominal pain; B37.2 Candidiasis of skin and nail; R42 Dizziness and giddiness; R30.0 Dysuria

== ENCOUNTER → 2024-04-07 11:08 | Outpatient (BNVA) | payer MEDICARE, OTHER, SELFPAY | PROVIDERS: PCP Internal Medicine | DX: N30.90 Cystitis, unspecified without hematuria (principal); R15.9 Full incontinence of feces; R10.84 Generalized abdominal pain; I10 Essential (primary) hypertension; B37.2 Candidiasis of skin and nail; R42 Dizziness and giddiness | CPT/HCPCS: 81003; 99212 ==

== ENCOUNTER 2024-04-19 14:08 | Outpatient (AMB) | payer MEDICARE, OTHER, SELFPAY ==
--- NOTE | 2024-04-19 14:48 | A.OFFVIS_ITS ---
Intake Visit Reasons: Med inquiry Intake Note: New Patient presents for initial visit for retention Urology Medications: none Blood Thinner: apixaban PVR: 11ml's Telephone Advice Nurse Required: No Accompanied by: Unknown Allergies ciprofloxacin Allergy (Severe, Verified 04/19/24 15:28) unknown aspirin [Aspirin] Allergy (Unknown, Verified 04/19/24 15:28) UNKNOWN cefuroxime Allergy (Unknown, Verified 04/19/24 15:28) Unknown celecoxib [From Celebrex] Allergy (Unknown, Verified 04/19/24 15:28) UNKNOWN metformin Allergy (Unknown, Verified 04/19/24 15:28) diarrhea risedronate sodium [From Actonel] Allergy (Unknown, Verified 04/19/24 15:28) UNKNOWN Sulfa (Sulfonamide Antibiotics) Allergy (Unknown, Verified 04/19/24 15:28) unknown bupropion Adverse Reaction (Intermediate, Verified 04/19/24 15:28) tremor ferrous sulfate Adverse Reaction (Intermediate, Verified 04/19/24 15:28) tremors sertraline Adverse Reaction (Intermediate, Verified 04/19/24 15:28) tremors Medication List - Last Reconciled 04/19/24 by MITA Roe albuterol sulfate 90 mcg/actuation 1 puff inhalation QID alprazolam 0.25 mg PO DAILY PRN apixaban (Eliquis) 2.5 mg PO BID ascorbic acid (vitamin C) (Vitamin C) 500 mg PO DAILY atorvastatin (Lipitor) 40 mg PO BEDTIME blood-glucose meter ([employer] Verio Flex Start kit) Test twice a day cholecalciferol (vitamin D3) 25 mcg PO DAILY cyanocobalamin (vitamin B-12) (Vitamin B-12) 1,000 mcg PO DAILY dexlansoprazole (Dexilant) 60 mg PO DAILY@0630 diclofenac sodium 1% (Arthritis Pain (diclofenac)) 4 grams topical QID digoxin 125 mcg PO 3XW empagliflozin 10 mg PO QAM famotidine 20 mg PO DAILY folic acid 1 mg PO DAILY furosemide 40 mg PO DAILY lancets (FreeStyle Lancets) use to test sugar once a day meclizine 12.5 mg PO TID PRN metoprolol succinate ER 50 mg PO DAILY 90 days montelukast (Singulair) 10 mg PO BEDTIME nystatin 1 appl topical BID 7 days nystatin 1 appl topical DAILY ondansetron 4 mg PO Q8H PRN [pediatric front wheel walker As directed] [PEDIATRIC FRONT WHEELED WALKER As directed] pregabalin 100 mg PO Q12H 30 days tramadol 50 mg PO DAILY PRN zolpidem 5 mg PO BEDTIME PRN HPI Comments Details: Zuleyma Lovell is an 89-year-old female patient of Dr. Jacobs who was accompanied by her neighbor Yen at today's office visit. She has a past medical history of type 2 diabetes, asthma, hearing impairment, tremors, osteoporosis, pancreatic cyst, peptic ulcer disease, fecal and urinary incontinence, GERD, lumbar degenerative disc disease, insomnia, TIA, hyperlipidemia, and hypertension. She presents to the office today for follow- up. Of note, patient was recently hospitalized in consulted by Urology for urinary retention and presents to the office today for follow-up. In discussion with the patient today she reports she has been able to independently urinate without her Lamar catheter. She discusses having went to [facility] for rehab and has since been home. She continues to report fecal and urinary incontinence. She discusses utilizing up to 12 Marcelle pads per day for her incontinence issues. She also reports noting urinary incontinence increases with her Lasix pill. In office urinalysis results reviewed with the patient today. PVR 11 mL. She discusses her upcoming MRI on May 05 for her question pancreatic cyst. We discussed further treatment options of urinary incontinence to include medications verses trial of InterStim as patient with a history of fecal incontinence however patient would like to await results of MRI prior to having any other intervention at this time. We also discussed in office urodynamics for further assessment evaluation. She otherwise denies hematuria, dysuria, foul smelling urine, changes to urinary stream, flank pain, fever, and or chills. Recent CT 02/23 notes bilateral kidneys are normal in size, shape, and attenuation. No hydronephrosis hydroureter, or calculi seen. No perinephric stranding. In numeral bilateral renal cysts are again seen which require no additional follow-up per radiology report. The bladder is partially decompressed by a Lamar catheter. She reports having had lamar catheter removed during rehab at [facility] however she is since been discharge and home independently voiding without any concerns. [facility] Medical History Type 2 diabetes mellitus with hyperglycemia Diabetes mellitus Asthma Hypokalemia Hypomagnesemia Diarrhea Hearing difficulty Dyspnea on exertion History of gastrointestinal diverticular hemorrhage COVID-19 virus infection Rectal bleeding Medicare annual wellness visit, initial Hip pain, left Patellar sleeve fracture of right knee Knee pain, right Nausea and vomiting Coarse tremors Shoulder pain, right Hospital discharge follow-up Mass on back Constipation Tinea corporis Nausea Right wrist pain Left knee pain Left hip pain Toe pain, left Breast cancer screening by mammogram UTI (urinary tract infection) Obesity (BMI 30-39.9) Lipoma of lower back Urinary frequency Toe fracture, left Pancreatic cyst Osteoporosis Peptic ulcer disease Urinary incontinence Rectal incontinence GERD (gastroesophageal reflux disease) Bile salt-induced diarrhea Vaginal prolapse Renal artery stenosis Asthma Lumbar degenerative disc disease Insomnia TIA (transient ischemic attack) Hyperlipidemia, unspecified Essential hypertension Surgical History Hx of colonoscopy History of esophagogastroduodenoscopy (EGD) History of removal of cyst (~10/17/21) History of hemorrhoidectomy History of colectomy History of section History of hysterectomy History of appendectomy History of cholecystectomy Family History Father Cancer Arterial thrombosis Mother Multiple sclerosis Muscular dystrophy Hypertension Depression Chronic mental illness Mental health disorder Brother No problems noted. Brother Gangrene Sister No problems noted. Son No problems noted. Son No problems noted. Son No problems noted. Son No problems noted. Daughter No problems noted. Daughter No problems noted. Daughter No problems noted. Social History Household Members: None Housing: Apartment Do you presently have visiting nurse or other home services: No Alcohol intake: former Comment: 1:1 sitter Patient Tobacco Use Status: Former Tobacco user Tobacco use type: Cigarette Years Smoked: 22 e-Cigarette/Vaping Use: Former Use Second Hand Smoke Exposure: No Advance Directives Date on File: 08/06/23 service: No Current occupational status: disabled Current occupational exposures/hazards: No Cognitive needs: Yes Hearing needs: Yes Vision needs: Yes Review of Systems Eyes Reports no additional complaints ENT Reports no additional complaints Card Reports as per HPI Resp Reports as per HPI GI Reports as per HPI Reports as per HPI Musc Reports as per [facility] Neuro Reports as per HPI Psych Reports no additional complaints Endo Reports as per HPI Physical Exam Const General: cooperative, comfortable, no acute distress, well developed, alert and awake Orientation/consciousness: patient oriented x3 Limitations: ambulation with walker HEENT Head: Yes normal to inspection, Yes normocephalic and Yes atraumatic Ears: hearing grossly normal bilaterally Eyes General: appearance normal, both eyes and all related structures Neck Neck: Yes normal visual inspection and Yes trachea midline Chest Chest palpation & inspection: normal inspection of the chest Resp Effort & Inspection: normal respiratory effort and able to speak in complete sentences Cardio Rate: regular rate GI Inspection: Yes normal to inspection General: Yes no CVA tenderness Back/Spine/Pelvis Back: no CVA tenderness Skin General skin exam: no rashes or lesions noted Neuro General: patient oriented x3 Extrem General: Yes normal to inspection Psych Appearance: grossly normal and well kempt Mental Status: mental status grossly normal Speech and movement: Normal speech and movement present and Clear speech present Affect: normal affect Attitude: cooperative Thought process: Normal thought process present Thought content: Normal thought content present Insight: Fair insight present (Psych) Judgement: Fair judgement present (Psych) Office Procedures Post Void Residual Post Residual Void Post Void Residual (PVR): 11 [id number] Void Residual by ultrasound Results AMB Urinalysis, Automated UA Leukoctes 0 Didi/uL Last Edit by Green Man Gamingny Carver on 04/19/24 15:07 UA Nitrite Last Edit by Green Man Gamingny Carver on 04/19/24 15:07 UA Urobilinogen 0.2 mg/dL Last Edit by Green Man Gamingny Carver on 04/19/24 15:07 UA Protein 0 mg/dL Last Edit by Green Man Gamingny Carver on 04/19/24 15:07 UA pH 7.0 Last Edit by Green Man Gamingny Carver on 04/19/24 15:07 UA Blood 10 Jose Maria/uL Last Edit by Keith Carver on 04/19/24 15:07 UA Specific [place] 1.010 Last Edit by Keith Carver on 04/19/24 15:07 UA Ketone Last Edit by Keith Carver on 04/19/24 15:07 UA Bilirubin 0 mg/dL Last Edit by Keith Carver on 04/19/24 15:07 UA Glucose 500 mg/dL Last Edit by Keith Carver on 04/19/24 15:07 Results Reviewed Results Reviewed: Laboratory Last Values Urine pH (Auto) 7.0 04/19/24 14:50 Specific [place] (Auto) 1.010 04/19/24 14:50 Urine Protein (Auto) 0 mg/dL 04/19/24 14:50 Glucose (UA)(Auto) 500 mg/dL 04/19/24 14:50 Urine Blood (Auto) 10 Jose Maria/uL 04/19/24 14:50 Urine Bilirubin (Auto) 0 mg/dL 04/19/24 14:50 Urine Urobilinogen (Auto) 0.2 mg/dL 04/19/24 14:50 Leukocyte Esterase (Auto) 0 Didi/uL 04/19/24 14:50 Date of Service: 02/15/24 EXAMINATION: CT ABDOMEN AND PELVIS WITH CONTRAST FINDINGS: LUNG BASES: Trace bilateral pleural effusions with bibasilar atelectasis. LIVER, GALLBLADDER, AND BILIARY TREE: The liver is normal in size, shape, and attenuation. No biliary ductal dilatation is present. Stable hepatic cysts. Status post cholecystectomy PANCREAS: Diffuse atrophy of the pancreas. There is a cyst is seen in the region of the uncinate process measuring 2.8 x 2.1 cm measuring simple fluid density which is stable. SPLEEN: Unremarkable. ADRENAL GLANDS: Stable nodular thickening of the left adrenal gland compared to the right. KIDNEYS AND URETERS: The kidneys are normal in size, shape, and attenuation. No hydronephrosis, hydroureter, or calculi seen. No perinephric stranding. Innumerable bilateral renal cysts are again seen which are stable in number and size. No follow-up indicated. BLADDER: Partially decompressed by a Lamar catheter GASTROINTESTINAL TRACT: The small bowel are unremarkable. Extensive diverticula seen throughout the colon without evidence of acute diverticulitis. The appendix is unremarkable. ABDOMINAL WALL: No significant hernia is appreciated. LYMPH NODES: Normal. VASCULAR: Abdominal aorta is normal in caliber. Extensive atherosclerotic calcified plaque in the abdominal aorta and bilateral iliac arteries. PELVIC VISCERA: Status post hysterectomy. No adnexal mass lesions OSSEOUS STRUCTURES: There is a scoliosis of the lumbar spine. Diffuse degenerative disc disease and facet joint arthropathy throughout the visualized spine. IMPRESSION: 1. No acute process. 2. Stable hepatic and renal cysts. 3. Stable pancreatic cyst. 4. Extensive colonic diverticulosis without acute diverticulitis. 5. Trace bilateral pleural effusions with bibasilar atelectasis. 6. Atherosclerotic disease Assessment & Plan Assessment & Plan (1) Acute urinary retention: Code(s): R33.8 - Other retention of urine Category: Medical (2) Urinary incontinence: Code(s): R32 - Unspecified urinary incontinence Category: Medical (3) Rectal incontinence: Code(s): R15.9 - Full incontinence of feces Category: Medical Plan In office urinalysis results reviewed with the patient today; as noted above. PVR 11 mL. Discussed at length potential causes of urinary retention. Discussed further treatment options of fecal and urinary incontinence. We discussed potential near future in office urodynamics and or cystoscopy for further assessment evaluation. Patient currently denies any UTI like symptoms. Will follow-up in 3 months to further discuss treatment options of urinary incontinence per patient request. Follow-up in 3 months with PVR; or sooner with any issues, concerns, and or questions. Orders: Orders AMB Urinalysis Automated Today Z13.9 - Encounter for screening, unspecified AMB Post Void Residual by ultrasound Today R32 - Unspecified urinary incontinence Patient Instructions: The patient had an opportunity to ask questions regarding the treatment plan. All questions were answered. Physical exam, labs, and imaging were discussed and reviewed in detail. As well as risks, benefits, and discussion of treatment choices. No major barriers to understanding were identified. The patient expressed understanding and agreement with the above treatment plan. The patient was made aware they should contact our office by phone for worsening of their current condition, the appearance of new symptoms, or with any questions or concerns. Compliance is encouraged with any medications and follow up testing that is ordered. It is a privilege to be allowed the opportunity to participate in? your urological care.? Again, if you have any questions or concerns If you have any questions or concerns please do not hesitate to contact me. The office is [phone]. This note is constructed using voice recognition software. While every effort has been made to ensure accuracy collection technician errors may have been included. Yours sincerely, ALIYAH Roe-DIANE Coding Level of Care Code Est Pt Level 3 (43188) Diagnoses Acute urinary retention R33.8 Urinary incontinence R32 Rectal incontinence R15.9 CPT Codes Post Residual Void - PVR CPT Code: 43536-Onqc Void Residual by ultrasound ([id number])
== END 2024-04-19 15:26 | disposition home or self-care (01) ==
PROVIDERS: PCP Internal Medicine; Visit Provider Nurse Practitioner Family
DX: R33.8 Other retention of urine (principal); R32 Unspecified urinary incontinence; R15.9 Full incontinence of feces; Z13.9 Encounter for screening, unspecified
CPT/HCPCS: 99213

== ENCOUNTER → 2024-04-19 14:08 | Outpatient (BNVA) | payer MEDICARE, OTHER, SELFPAY | PROVIDERS: PCP Internal Medicine; Visit Provider Nurse Practitioner Family | DX: R33.8 Other retention of urine (principal); R15.9 Full incontinence of feces; R32 Unspecified urinary incontinence | CPT/HCPCS: 51798; 81003; 99212 ==

== ENCOUNTER 2024-04-27 15:32 | Outpatient (AMB) | payer MEDICARE, OTHER, SELFPAY ==
--- NOTE | 2024-04-27 15:44 | A.OFFPC_ITS ---
Vital Signs 04/27/24 15:45 Height 5 ft 1 in Weight 149 lb BMI 28.2 BP 144/90 H Blood Pressure Location Lt brachial Position Sitting Pulse 79 Pulse Source Pulse Oximeter Pulse Oximetry (%) 94 Oxygen Delivery Method Room Air Intake Visit Reasons: bilateral leg pain, right hand pain Allergies ciprofloxacin Allergy (Severe, Verified 04/27/24 15:45) unknown aspirin [Aspirin] Allergy (Unknown, Verified 04/27/24 15:45) UNKNOWN cefuroxime Allergy (Unknown, Verified 04/27/24 15:45) Unknown celecoxib [From Celebrex] Allergy (Unknown, Verified 04/27/24 15:45) UNKNOWN metformin Allergy (Unknown, Verified 04/27/24 15:45) diarrhea risedronate sodium [From Actonel] Allergy (Unknown, Verified 04/27/24 15:45) UNKNOWN Sulfa (Sulfonamide Antibiotics) Allergy (Unknown, Verified 04/27/24 15:45) unknown bupropion Adverse Reaction (Intermediate, Verified 04/27/24 15:45) tremor ferrous sulfate Adverse Reaction (Intermediate, Verified 04/27/24 15:45) tremors sertraline Adverse Reaction (Intermediate, Verified 04/27/24 15:45) tremors Tobacco use date assessed: 10/17/23 Fall risk assessment: No Falls in past year Last assessed Fall Risk: 04/27/24 Dental Screening Dental Screen Date: 09/18/23 HPI bilateral leg pain HPI Details 89-year-old overweight female with hyper tension hypercholesterolemia GERD diabetes mellitus with generalized anxiety disorder, carotid artery disease history of TIA atrial fibrillation congestive heart failure coming in for follow-up. Last seen in April 07 having cystitis. Review of the notes has seen seen urology in April [address] of the abdomen January showing stable pancreatic cyst extensive diverticulosis trace bilateral pleural effusions and arthrosclerotic disease. Patient has also seen gastroenterology March 29 concern about the pancreatic cyst increasing in size. Patient was advised to get an MRI done. complains of pain on the R gluteal area radiating to the leg. also DM concern - does eat a lot more bahamian ice. [facility] Medical History (Updated 04/27/24 @ 16:29 by Solange Jacobs MD) Atrial fibrillation with RVR Atrial fibrillation with RVR Type 2 diabetes mellitus with hyperglycemia Diabetes mellitus Asthma Hypokalemia Hypomagnesemia Diarrhea Hearing difficulty Dyspnea on exertion History of gastrointestinal diverticular hemorrhage COVID-19 virus infection Rectal bleeding Medicare annual wellness visit, initial Hip pain, left Patellar sleeve fracture of right knee Knee pain, right Nausea and vomiting Coarse tremors Shoulder pain, right Hospital discharge follow-up Mass on back Constipation Tinea corporis Nausea Right wrist pain Left knee pain Left hip pain Toe pain, left Breast cancer screening by mammogram UTI (urinary tract infection) Obesity (BMI 30-39.9) Lipoma of lower back Urinary frequency Toe fracture, left Pancreatic cyst Osteoporosis Peptic ulcer disease Urinary incontinence Rectal incontinence GERD (gastroesophageal reflux disease) Bile salt-induced diarrhea Vaginal prolapse Renal artery stenosis Asthma Lumbar degenerative disc disease Insomnia TIA (transient ischemic attack) Hyperlipidemia, unspecified Essential hypertension Surgical History Hx of colonoscopy History of esophagogastroduodenoscopy (EGD) History of removal of cyst (~10/17/21) History of hemorrhoidectomy History of colectomy History of section History of hysterectomy History of appendectomy History of cholecystectomy Family History Father Cancer Arterial thrombosis Mother Multiple sclerosis Muscular dystrophy Hypertension Depression Chronic mental illness Mental health disorder Brother No problems noted. Brother Gangrene Sister No problems noted. Son No problems noted. Son No problems noted. Son No problems noted. Son No problems noted. Daughter No problems noted. Daughter No problems noted. Daughter No problems noted. Social History Household Members: None Housing: Apartment Do you presently have visiting nurse or other home services: No Alcohol intake: former Comment: 1:1 sitter Patient Tobacco Use Status: Former Tobacco user Tobacco use type: Cigarette Years Smoked: 22 e-Cigarette/Vaping Use: Former Use Second Hand Smoke Exposure: No Advance Directives Date on File: 08/06/23 service: No Current occupational status: disabled Current occupational exposures/hazards: No Cognitive needs: Yes Hearing needs: Yes Vision needs: Yes Questionnaire PHQ-9 Over the last 2 weeks, how often have you been bothered by any of the following problems? 1. Little interest or pleasure in doing things: several days 2. Feeling down, depressed, or hopeless: several days 3. Trouble falling or staying asleep, or sleeping too much: nearly every day 4. Feeling tired or having little energy: more than half the days 5. Poor appetite or overeating: not at all 6. Feeling bad about yourself - or that you are a failure or have let yourself or your family down: not at all 7. Trouble concentrating on things, such as reading the newspaper or watching television: not at all 8. Moving or speaking so slowly that other people could have noticed. Or the opposite - being so fidgety or restless that you have been moving around a lot more than usual: not at all 9. Thoughts that you would be better off or of hurting yourself in some way: not at all Total score: 7 Depression Screening Interpretation: Positive Depression Screening Follow-up: Existing condition Depression Screening Done: Yes 76487 - PHQ-9 Billing: Yes Source: Developed by Drs. Brandon Villeda, Vijaya Damon, Jaydon Easley and colleagues, with an educational phi from [employer]. Thrive Questionnaire Date Thrive assessed: 02/16/24 AUDIT C Alcohol Use Questionnaire (AUDIT-C) 1. How often do you have a drink containing alcohol?: Never 3. How often do you have six or more drinks on one occasion?: Never Total Score: 0 Score Reviewed/Action Taken: No MERY-7 AMB Questionnaire MERY-7 Date MERY - 7 assessed: 09/18/23 Source: Developed by Drs. Brandon Villeda, Vijaya Damon, Jaydon Easley and colleagues, with an educational phi from [employer]. Physical exam (Primary Care) Vital Signs: Last Vital Signs Pulse 79 04/27/24 15:45 BP 144/90 H 04/27/24 15:45 Pulse Ox 94 04/27/24 15:45 Oxygen Delivery Method Room Air 04/27/24 15:45 BMI result Body Mass Index 28.2 Tobacco/Smoking Status: Tobacco use Status Tobacco use date assessed 10/17/23 04/27/24 15:56 Patient Tobacco Use Status Former Tobacco user 04/27/24 15:56 Tobacco use type Cigarette 04/27/24 15:56 e-Cigarette/Vaping Use Former Use 04/27/24 15:56 PHQ-9: PHQ-9 Score PHQ-9: Total score 7 04/27/24 16:05 Depression Screening Interpretation: Positive Depression Screening Follow-up: Existing condition Thrive Assessment: Date of Thrive Assessment Date Thrive assessed 02/16/24 04/27/24 15:56 Const General: alert; No acute distress Eyes Conjunctivae: conjunctivae normal Resp Auscultation: clear to auscultation bilaterally Cardio Rate: regular rate Rhythm: regular rhythm GI Inspection: Yes normal to inspection Extrem General: Yes normal to inspection and No edema Results AMB Hemoglobin A1c AMB Hemoglobin A1c 7.7 % Last Edit by Doreen Farfan CMA on 04/27/24 15 :58 Results Reviewed Results Reviewed: Laboratory Last Values Hgb A1c (Clinic) 7.7 % (4.0-6.0) H 04/27/24 15:57 Coding Level of Care Code Est Pt Level 4 (81385) Complex EM visit Add On G2211 Diagnoses Type 2 diabetes mellitus with hyperglycemia, without long-term current use of insulin E11.65 Diabetes mellitus custodial insulin use: without custodial use Pancreatic lesion K86.9 Acute urinary retention R33.8 CHF (congestive heart failure) I50.23 Heart failure chronicity: acute on chronic Heart failure type: systolic Paroxysmal atrial fibrillation I48.0 Essential hypertension I10 Hyperlipidemia, unspecified hyperlipidemia type E78.5 Hyperlipidemia type: unspecified Gastroesophageal reflux disease without esophagitis K21.9 Esophagitis presence: without esophagitis Generalized anxiety disorder F41.1 Urinary retention R33.9 Sciatic leg pain M54.30 Additional Codes PHQ-9 - 31130 - PHQ-9 Billing: Yes ([id number]) Assessment & Plan Assessment & Plan (1) Type 2 diabetes mellitus with hyperglycemia: Code(s): E11.65 - Type 2 diabetes mellitus with hyperglycemia Category: Medical Qualifiers: 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 Hemoglobin A1c goal of less than 7.0. Patient is on Jardiance 10 mg once a day. (2) Pancreatic lesion: Comment: CT scan done February 2024 MRI requested Code(s): K86.9 - Disease of pancreas, unspecified Category: Medical Plan: January CT scan advised MRI (3) Acute urinary retention: Code(s): R33.8 - Other retention of urine Category: Medical Plan: Patient is being followed up by Urology (4) CHF (congestive heart failure): Comment: Preserved ejection fraction Code(s): I50.9 - Heart failure, unspecified Category: Medical Qualifiers: Heart failure chronicity: acute on chronic Heart failure type: systolic Qualified Code(s): I50.23 - Acute on chronic systolic (congestive) heart failure Plan: Weigh daily and continue with the furosemide 40 mg once a day and continue with digoxin (5) Paroxysmal atrial fibrillation: Code(s): I48.0 - Paroxysmal atrial fibrillation Category: Medical Plan: Continue with anticoagulation Eliquis 2.5 mg twice a day continue to monitor renal function (6) Essential hypertension: Code(s): I10 - Essential (primary) hypertension Category: Medical Plan: Continue with blood pressure medication. Decrease salt intake and exercise metoprolol 75 mg once a day (7) Hyperlipidemia, unspecified: Code(s): E78.5 - Hyperlipidemia, unspecified Category: Medical Qualifiers: Hyperlipidemia type: unspecified Qualified Code(s): E78.5 - Hyperlipidemia, unspecified Plan: Avoid fried foods, chicken skin, eggs, butter margarine, pastries and meat. Be it pork or beef they have a lot of cholesterol patient is on atorvastatin 40 mg at bedtime will need retesting (8) GERD (gastroesophageal reflux disease): Code(s): K21.9 - Gastro-esophageal reflux disease without esophagitis Category: Medical Qualifiers: Esophagitis presence: without esophagitis Qualified Code(s): K21.9 - Gastro-esophageal reflux disease without esophagitis Plan: Avoid the foods that causes that usually spicy foods, tomato products, juices, coffee, soda and foods that your sensitive to. After eating do not lie down, allow 3-4 hours before in lie down. And keep the head of bed above 30 degrees to avoid the acid from going up. (9) Generalized anxiety disorder: Code(s): F41.1 - Generalized anxiety disorder Category: Medical Plan: Continue with alprazolam as needed (10) Urinary retention: Code(s): R33.9 - Retention of urine, unspecified Category: Medical Plan: Continue with tamsulosin (11) Sciatic leg pain: Comment: Right Code(s): M54.30 - Sciatica, unspecified side Category: Medical Plan: Discussed about getting off the pressure on the sciatic nerve. Advised to keep active and move and not just sit most of the time. Orders: Orders AMB Hemoglobin A1c Today Z13.9 - Encounter for screening, unspecified Comprehensive Met. Panel Today E11.65 - Type 2 diabetes mellitus with hyperglycemia Hemoglobin A1c Today E11.65 - Type 2 diabetes mellitus with hyperglycemia Hemoglobin A1c 3 Months E11.65 - Type 2 diabetes mellitus with hyperglycemia Complete Blood Count Auto Diff Today E11.65 - Type 2 diabetes mellitus with hyperglycemia Lipid Panel Today E11.65 - Type 2 diabetes mellitus with hyperglycemia, E78.00 - Pure hypercholesterolemia, unspecified Thyroid Stimulating Hormone Today E11.65 - Type 2 diabetes mellitus with hyperglycemia Medications: New tamsulosin 0.4 mg PO BEDTIME 30 caps 2RF R33.9 - Retention of urine, unspecified Changed From pregabalin 100 mg PO Q12H 30 days 60 caps 2RF M51.36 - Other intervertebral disc degeneration, lumbar region To pregabalin 100 mg PO Q12H 62 caps 2RF 31 days M51.36 - Other intervertebral disc degeneration, lumbar region Refilled zolpidem 5 mg PO BEDTIME PRN 90 tabs 0RF insomnia famotidine 20 mg PO DAILY 90 tabs 1RF Discontinued pregabalin Discontinued Reason: Doctor's Order 100 mg PO Q12H 30 days 60 caps 2RF M51.36 - Other intervertebral disc degeneration, lumbar region
[2024-04-27 15:45] VITALS: BP 144/90; PULSE 79; O2SAT 94; BMI 28.2
== END 2024-04-27 17:02 | disposition home or self-care (01) ==
PROVIDERS: PCP Internal Medicine; Visit Provider Internal Medicine
DX: E11.65 Type 2 diabetes mellitus with hyperglycemia (principal); I50.23 Acute on chronic systolic (congestive) heart failure; I48.0 Paroxysmal atrial fibrillation; K86.9 Disease of pancreas, unspecified; R33.8 Other retention of urine; I10 Essential (primary) hypertension; E78.5 Hyperlipidemia, unspecified; K21.9 Gastro-esophageal reflux disease without esophagitis; F41.1 Generalized anxiety disorder; R33.9 Retention of urine, unspecified; M54.30 Sciatica, unspecified side

== ENCOUNTER → 2024-04-27 15:32 | Outpatient (BNVA) | payer MEDICARE, OTHER, SELFPAY | PROVIDERS: PCP Internal Medicine; Visit Provider Internal Medicine | DX: E11.65 Type 2 diabetes mellitus with hyperglycemia (principal); K86.9 Disease of pancreas, unspecified; R33.8 Other retention of urine; I11.0 Hypertensive heart disease with heart failure; I50.23 Acute on chronic systolic (congestive) heart failure; I48.0 Paroxysmal atrial fibrillation; E78.5 Hyperlipidemia, unspecified; K21.9 Gastro-esophageal reflux disease without esophagitis; F41.1 Generalized anxiety disorder; R33.9 Retention of urine, unspecified; M54.30 Sciatica, unspecified side | CPT/HCPCS: 83036; 96127; 99212 ==

== ENCOUNTER 2024-05-06 12:11 | Inpatient (IN) | payer MEDICARE, OTHER, SELFPAY ==
[2024-05-06] VITALS (10 sets, daily range): BP systolic 143–162; BP diastolic 64–93; PULSE 72–91; RESP 14–20; TEMP 36.2–37.7; O2SAT 88–98; BMI 25.7
--- NOTE | ~2024-05-06 | CT_ITS ---
EXAMINATION: CT ABDOMEN AND PELVIS WITH CONTRAST CLINICAL INFORMATION: Trauma. Fall. Nausea and vomiting COMPARISON: Prior CT abdomen dated 02/15/2024 TECHNIQUE: Multidetector volumetric images were obtained from the superior aspect of the liver through the pubic symphysis following administration 85 mL of Omnipaque 350 intravenous contrast. Sagittal and coronal reformatted images were obtained on the technologist's workstation. Oral contrast: No This CT examination was performed using dose optimization techniques as appropriate, variously including the following: *Automated exposure control *Adjustment of mA and/or kV according to patient size (this includes techniques or standardized protocols for targeted exams where dose is matched to indication/reason for exam; i.e. extremities or head) *Use of iterative reconstruction technique DLP: 772 mGy-cm FINDINGS: LUNG BASES: The visualized lung bases are unremarkable. Previously noted trace pleural effusions have resolved. LIVER, GALLBLADDER, AND BILIARY TREE: The liver appears prominent. Small cysts are seen in the right and the left lobe there is slight ectasia of the left intrahepatic biliary tree which appears more prominent today than on the prior exam. Ectasia of the common duct however is unchanged. No suspicious lesions are seen in the liver. The gallbladder is absent. PANCREAS: Again note is made of diffuse atrophy of the pancreas with adjacent vascular calcifications. A cystic process in the region of the uncinate at 26 mm is stable and does not appear suspicious. SPLEEN: Unremarkable. ADRENAL GLANDS: Slight thickening of the left adrenal. Right adrenal normal. No change. KIDNEYS AND URETERS: No right or left hydronephrosis or suspicious mass. Several bilateral renal cysts of varying sizes are again seen. No follow-up indicated. No calcifications. BLADDER: Unremarkable. GASTROINTESTINAL TRACT: There is no bowel obstruction. No right or left lower quadrant inflammation. There is moderate pancolonic diverticular disease but no diverticulitis. Appendix not clearly seen. ABDOMINAL WALL: No significant hernia is appreciated. LYMPH NODES: Normal. VASCULAR: The aorta and iliac bifurcation are atherosclerotic but not aneurysmal. PELVIC VISCERA: Status post hysterectomy. Adnexal regions are unremarkable. OSSEOUS STRUCTURES: Advanced multilevel degenerative change throughout the lumbar spine. CT/CT abdomen pelvis w IV con IMPRESSION: No acute findings. No bowel obstruction. No pneumoperitoneum. Colonic diverticular disease noted. Slight ectasia of the left biliary radicals noted but I do not see evidence of an obstructing stone. Please correlate with LFTs. Fleischner guidelines were followed. Electronically signed by: Ras Xiong MD 05/06/2024 05:16 PM [facility]
--- NOTE | ~2024-05-06 | CT_ITS ---
EXAMINATION: CT HEAD WITHOUT CONTRAST CLINICAL INFORMATION: Fall. Head strike COMPARISON: None available. TECHNIQUE: Contiguous axial imaging was performed from the skull base to vertex without intravenous administration of contrast. This CT examination was performed using dose optimization techniques as appropriate, variously including the following: *Automated exposure control *Adjustment of mA and/or kV according to patient size (this includes techniques or standardized protocols for targeted exams where dose is matched to indication/reason for exam; i.e. extremities or head) *Use of iterative reconstruction technique DLP: 606 mGy-cm FINDINGS: Prominence to the sulci and ventricles. Mild involutional change noted. No intra or extra-axial fluid collection, hemorrhage, mass, or mass effect. Calvarium is intact. No periosteal thickening observed within the ethmoid sinuses. Retrobulbar regions are intact. CT/CT head/brain wo IV con IMPRESSION: No acute intracranial pathology. Electronically signed by: Ras Xiong MD 05/06/2024 04:44 PM [facility] [place]
--- NOTE | ~2024-05-06 | CT_ITS ---
EXAMINATION: CT CHEST WITH CONTRAST CLINICAL INFORMATION: fall, pain, nausea, vomiting, pancreatic bx COMPARISON: CTA chest for PE dated 08/05/2023 TECHNIQUE: Multidetector volumetric CT imaging of the chest was obtained after the administration of 50 mL of Omnipaque 350 intravenous contrast without immediate adverse reactions. Axial MIP volume rendering provided. Sagittal and coronal reformatted images were obtained. This CT examination was performed using dose optimization techniques as appropriate, variously including the following: *Automated exposure control *Adjustment of mA and/or kV according to patient size (this includes techniques or standardized protocols for targeted exams where dose is matched to indication/reason for exam; i.e. extremities or head) *Use of iterative reconstruction technique DLP: 1119 mGy-cm FINDINGS: VASCULAR: No dissection or aneurysm of the thoracic aorta. 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 Three-vessel aortic arch. The origins of the arch vessels are widely patent and normal in caliber. Although not tailored for the evaluation of the pulmonary arteries, there is no central pulmonary embolism. NON-VASCULAR: LUNGS: The central airways are patent. Bibasilar atelectasis. Subsegmental atelectasis in the right lower lobe. 4 mm nodule in the right lower lobe (7:200). 6 mm nodule in the right middle lobe (7:243). 5 mm polygonal shaped nodule along the minor fissure likely represents a lymph node and does not require further imaging follow-up (7:228). MEDIASTINUM: The heart is enlarged. Small pericardial effusion. Moderate aortic valve calcifications. Mild mitral annular calcifications. Mild coronary artery calcifications. Small hiatal hernia. PLEURA: There is no pleural effusion. No pleural mass or thickening. AXILLA: No lymphadenopathy. UPPER ABDOMEN: See separately dictated same day CT abdomen/pelvis. OSSEOUS STRUCTURES: Multilevel degenerative changes of the spine. CT/CT chest w IV con IMPRESSION: 1. No acute traumatic findings in the chest. 2. 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 3. Cardiomegaly with small pericardial effusion. 4. Moderate aortic valve calcifications. 5. Mild coronary artery calcifications. 6. Small hiatal hernia. 7. Pulmonary nodules in the right middle and lower lobes measuring up to 6 mm. According to the UPDATED 2017 Fleischner Society recommendations, the advised follow-up imaging for multiple solid nodules measuring up to 6-8 mm is follow-up CT at 3 to 6 months. In high-risk patients, subsequent CT follow-up at 18 to 24 months is recommended. In low-risk patients, subsequent CT follow-up at 18 to 24 months is optional. Fleischner guidelines were followed. Electronically signed by: Nakia Clements MD 05/06/2024 09:28 PM [facility]
--- NOTE | ~2024-05-06 | CT_ITS ---
EXAMINATION: CT MAXILLOFACIAL WITHOUT CONTRAST CLINICAL INFORMATION: Fall. Head strike. COMPARISON: CT head from 05/06/2024. TECHNIQUE: Multidetector helical imaging was performed in the axial plane with generation of coronal and sagittal reformatted images. This CT examination was performed using dose optimization techniques as appropriate, variously including the following: *Automated exposure control *Adjustment of mA and/or kV according to patient size (this includes techniques or standardized protocols for targeted exams where dose is matched to indication/reason for exam; i.e. extremities or head) *Use of iterative reconstruction technique DLP: 245 mGy-cm FINDINGS: FRONTAL SINUSES AND DRAINAGE PATHWAYS: Mild mucosal thickening of the frontal sinuses. The frontoethmoidal recesses are patent. MAXILLARY SINUSES AND DRAINAGE PATHWAYS: Moderate mucosal thickening of the maxillary sinuses. The maxillary ostia and infundibula are patent. ETHMOID SINUSES: Moderate mucosal thickening of the ethmoid air cells. The ethmoid roofs appear symmetric and intact. SPHENOID SINUS AND DRAINAGE PATHWAYS: The sphenoid sinus is clear. The sphenoethmoidal recesses are patent. The carotid canals are normally covered by bone. NASAL PASSAGE: Moderate mucosal thickening of the nasal passages. The osseous nasal septum remains midline. ORBITS: Normal appearance of the osseous orbits. The lamina papyracea are intact. No significant preseptal or retrobulbar edema. Normal appearance of the globes. Normal symmetric appearance of the extraocular musculature. No abnormalities of the intraconal or extraconal adipose tissue. Normal appearance of the optic nerve sheaths. Normal appearance of the lacrimal glands. No orbital fluid collections. No abnormalities of the orbital apices. TEMPOROMANDIBULAR JOINTS: The temporomandibular joints remain well aligned. Normal appearance of the temporomandibular joints. ADDITIONAL RELEVANT FINDINGS: No evidence of maxillofacial bone fractures. The zygomatic arches remain intact. No nasal bone fracture. No evidence of mandibular or maxillary fracture. No significant maxillary/mandibular periapical disease. The visualized mastoid air cells and middle ear cavities remain well aerated. Limited evaluation of the intracranial structures without significant abnormalities. The premaxillary, retromaxillary, pterygopalatine fossa, temporal fossa, and parapharyngeal adipose tissue is maintained. No demonstrated soft tissue abnormalities within the intrinsic tissues of the tongue. CT/CT facial bones wo IV con IMPRESSION: 1. No evidence of acute fracture of the maxillofacial bones. 2. Moderate sinonasal mucosal disease. Electronically signed by: Ludwin Mondragon DO 05/06/2024 05:26 PM [facility]
--- NOTE | ~2024-05-06 | CT_ITS ---
EXAMINATION: CT CERVICAL SPINE WITHOUT CONTRAST CLINICAL INFORMATION: Fall. Head strike COMPARISON: None available. TECHNIQUE: Thin section axial imaging with sagittal and coronal reformats. This CT examination was performed using dose optimization techniques as appropriate, variously including the following: *Automated exposure control *Adjustment of mA and/or kV according to patient size (this includes techniques or standardized protocols for targeted exams where dose is matched to indication/reason for exam; i.e. extremities or head) *Use of iterative reconstruction technique DLP: 383.40 mGy-cm FINDINGS: There is advanced degenerative changes observed, C4-5 and C5-6 with posterior spurring. Anterior spurring noted at these levels as well. Prevertebral soft tissues are normal. There is no significant encroachment on the spinal canal. Lung apices clear. There is atherosclerotic calcification in the carotid bulbs. CT/CT cervical spine wo IV con IMPRESSION: Degenerative changes noted. No acute findings or fracture or encroachment on the spinal canal. Fleischner guidelines were followed. Electronically signed by: Ras Xiong MD 05/06/2024 04:49 PM SHAKIRA CORTEZ
--- NOTE | 2024-05-06 12:49 | ED_ITS ---
HPI - General Adult General Chief complaint: Fall Stated complaint: WEAK,COUGH,BELLO,FALL,RECENT PANC BIOPSY PER EMS Time Seen by Provider: 05/06/24 12:48 Source: patient and EMS Mode of arrival: EMS Limitations: no limitations History of Present Illness ED Provider: Rachael Britt PA-C HPI narrative: Patient is an 89 year old assigned female at with a history of HFpEF, COPD, dementia, DM, atrial fib, anxiety, CAD, GERD, and HLD presenting to the emergency department today feeling generally unwell with nausea, vomiting, dizziness, and headache after a fall. Patient states that she had a pancreatic mass biopsy on 05/05/2024 at [facility] and has felt generally unwell ever since. Patient denies any abdominal pain, fever, chills, blurry vision, double vision, loss of vision, chest pain, difficulty breathing, shortness of breath, back pain, night sweats, pain with urination, increased urinary frequency, increased urinary urgency, blood in her urine or stool, syncope or a near syncopal episode, bowel incontinence, bladder incontinence, or any other complaints at this time. Relieving factors: none Exacerbating factors: none Associated symptoms: nausea/vomiting Treatments prior to arrival: none Related Data Home Medications ?Medication ?Instructions ?Recorded ?Confirmed cyanocobalamin (vitamin B-12) 1,000 mcg PO DAILY 08/06/23 04/07/24 1,000 mcg tablet (Vitamin B-12) tramadol 50 mg tablet 50 mg PO DAILY PRN Pain 08/06/23 04/07/24 blood-glucose meter (OneTouch 01/07/24 04/07/24 Verio Flex Start kit) albuterol sulfate 90 mcg/actuation 1 puff inhalation QID 01/10/24 04/07/24 aerosol inhaler atorvastatin 40 mg tablet (Lipitor) 40 mg PO BEDTIME 01/10/24 04/07/24 dexlansoprazole 60 mg 60 mg PO DAILY@0630 01/10/24 04/07/24 capsule,biphase delayed release (Dexilant) diclofenac sodium 1 % topical gel 4 g topical QID Pain 01/10/24 04/07/24 (Arthritis Pain (diclofenac)) montelukast 10 mg tablet 10 mg PO BEDTIME 01/10/24 04/07/24 (Singulair) alprazolam 0.25 mg tablet 0.25 mg PO DAILY PRN anxiety 02/15/24 04/07/24 empagliflozin 10 mg tablet 10 mg PO QAM 03/18/24 04/07/24 metoprolol succinate 50 mg 75 mg PO DAILY 04/27/24 tablet,extended release 24 hr Previous Rx's ?Medication ?Instructions ?Recorded pediatric front wheel walker #1 ea 09/02/23 PEDIATRIC FRONT WHEELED WALKER #1 ea 09/18/23 apixaban 2.5 mg tablet (Eliquis) 2.5 mg PO BID #180 tabs 09/22/23 lancets 28 gauge (FreeStyle #100 ea 11/17/23 Lancets) furosemide 40 mg tablet 40 mg PO DAILY #90 tabs 12/19/23 folic acid 1 mg tablet 1 mg PO DAILY #90 tabs 01/02/24 ascorbic acid (vitamin C) 500 mg 500 mg PO DAILY #90 tabs 01/09/24 tablet (Vitamin C) cholecalciferol (vitamin D3) 25 25 mcg PO DAILY #90 caps 02/04/24 mcg (1,000 unit) capsule ondansetron 4 mg disintegrating 4 mg PO Q8H PRN nausea and 03/20/24 tablet vomiting #7 tabs digoxin 125 mcg (0.125 mg) tablet 125 mcg PO 3XW #36 tabs 03/30/24 meclizine 12.5 mg tablet 12.5 mg PO TID PRN dizziness #14 04/07/24 tabs nystatin 100,000 unit/gram topical 1 appl topical BID 7 days #30 grams 04/07/24 ointment nystatin 100,000 unit/gram topical 1 appl topical DAILY #15 grams 04/07/24 powder famotidine 20 mg tablet 20 mg PO DAILY #90 tabs 04/27/24 pregabalin 100 mg capsule 100 mg PO Q12H 31 days #62 caps 04/27/24 tamsulosin 0.4 mg capsule 0.4 mg PO BEDTIME #30 caps 04/27/24 zolpidem 5 mg tablet 5 mg PO BEDTIME PRN insomnia #90 04/27/24 tabs Allergies Allergy/AdvReac Type Severity Reaction Status Date / Time ciprofloxacin Allergy Severe unknown Verified 05/06/24 12:33 aspirin [Aspirin] Allergy Unknown UNKNOWN Verified 05/06/24 12:33 cefuroxime Allergy Unknown Unknown Verified 05/06/24 12:33 celecoxib [From Celebrex] Allergy Unknown UNKNOWN Verified 05/06/24 12:33 metformin Allergy Unknown diarrhea Verified 05/06/24 12:33 risedronate sodium Allergy Unknown UNKNOWN Verified 05/06/24 12:33 [From Actonel] Sulfa (Sulfonamide Allergy Unknown unknown Verified 05/06/24 12:33 Antibiotics) bupropion AdvReac Intermediate tremor Verified 05/06/24 12:33 ferrous sulfate AdvReac Intermediate tremors Verified 05/06/24 12:33 sertraline AdvReac Intermediate tremors Verified 05/06/24 12:33 Review of Systems 2 Constitutional: Constitutional: Reports no additional constitutional complaints, Denies chills, Denies fever(s), Reports headache(s) and Denies night sweats Eyes: Eyes: Reports no additional eye complaints, Denies blurry vision, Denies change in vision, Denies diplopia, Denies eye discharge, Denies loss of vision and Denies eye pain ENT: Reports dizziness and Reports headache(s) Cardiovascular: Cardiovascular: Reports no additional cardiovascular complaints, Denies chest pain, Denies lightheadedness, Denies Loss of Consciousness and Denies dyspnea Respiratory: Respiratory: Reports no additional respiratory complaints and Denies dyspnea Gastrointestinal: Gastrointestinal: Reports no additional gastrointestinal complaints, Denies abdominal pain, Denies melena, Denies hematochezia, Denies change in bowel habits, Denies change in stool character, Reports nausea and Reports vomiting Genitourinary: Genitourinary: Denies hematuria, Denies urinary frequency, Denies dysuria, Denies urinary incontinence, Denies urinary hesitancy and Denies urinary urgency Musculoskeletal: Musculoskeletal: Reports no additional musculoskeletal complaints, Denies numbness and Denies tingling Neurologic: Reports dizziness, Reports headache(s), Denies loss of vision, Denies numbness and Denies tingling Psychiatric: Psychiatric: Reports no additional psychiatric complaints Endocrine: Endocrine: Reports no additional endocrine complaints Hematologic/Lymphatic: Hematologic/Lymphatic: Reports no additional hematologic/lymphatic complaints Allergic/Immunologic: Allergic/Immunologic: Reports no additional allergic/immunologic complaints PMFSH Past Medical History Attestation statement: The following information was validated with the patient. Source: old records reviewed and nursing notes reviewed Medical History Weakness Dizziness and giddiness Weakness Yeast infection of the skin Exercise hypoxemia Acute respiratory failure with hypoxia Lipoma of lower back Urinary incontinence Cystitis Acute urinary retention Acute diverticulitis of intestine Generalized abdominal pain Diverticular disease Nausea & vomiting Failure to thrive in adult TSH elevation CHF (congestive heart failure) Atrial fibrillation with RVR Atrial fibrillation with RVR Type 2 diabetes mellitus with hyperglycemia Diabetes mellitus Asthma Hypokalemia Hypomagnesemia Diarrhea Hearing difficulty Dyspnea on exertion History of gastrointestinal diverticular hemorrhage COVID-19 virus infection Rectal bleeding Medicare annual wellness visit, initial Hip pain, left Patellar sleeve fracture of right knee Knee pain, right Nausea and vomiting Coarse tremors Shoulder pain, right Hospital discharge follow-up Mass on back Constipation Tinea corporis Nausea Right wrist pain Left knee pain Left hip pain Toe pain, left Breast cancer screening by mammogram UTI (urinary tract infection) Obesity (BMI 30-39.9) Urinary frequency Toe fracture, left Pancreatic cyst Osteoporosis Peptic ulcer disease Urinary incontinence Rectal incontinence GERD (gastroesophageal reflux disease) Bile salt-induced diarrhea Vaginal prolapse Renal artery stenosis Asthma Lumbar degenerative disc disease Insomnia TIA (transient ischemic attack) Hyperlipidemia, unspecified Essential hypertension Surgical History Hx of colonoscopy History of esophagogastroduodenoscopy (EGD) History of removal of cyst (~10/17/21) History of hemorrhoidectomy History of colectomy History of section History of hysterectomy History of appendectomy History of cholecystectomy Family History Family History Father Cancer Arterial thrombosis Mother Multiple sclerosis Muscular dystrophy Hypertension Depression Chronic mental illness Mental health disorder Brother No problems noted. Brother Gangrene Sister No problems noted. Son No problems noted. Son No problems noted. Son No problems noted. Son No problems noted. Daughter No problems noted. Daughter No problems noted. Daughter No problems noted. Social History Social History Household Members: None Housing: Apartment Do you presently have visiting nurse or other home services: No Alcohol intake: former Comment: 1:1 sitter Patient Tobacco Use Status: Former Tobacco user Tobacco use type: Cigarette Years Smoked: 22 Smoked in Last 30 Days: No e-Cigarette/Vaping Use: Former Use Second Hand Smoke Exposure: No Use of substances other than those prescribed or required for medical reasons: No Advance Directives: Yes Advance Directives on File: Yes Advance Directives Date on File: 08/06/23 Do you have a plan to hurt others: No Plan service: No Current occupational status: disabled Current occupational exposures/hazards: No Cognitive needs: Yes Hearing needs: Yes Vision needs: Yes Physical Exam ED Vital Signs: Vital Signs - 24 hr 05/06/24 12:29 05/06/24 13:52 05/06/24 15:00 Temperature 97.4 F 98.1 F Pulse Rate 91 87 80 Respiratory Rate 16 16 15 Blood Pressure 145/64 H 152/86 H 143/64 H Pulse Oximetry 93 95 80 L Oxygen Delivery Method Room Air Room Air Room Air Oxygen Flow Rate 05/06/24 15:46 Temperature Pulse Rate Respiratory Rate Blood Pressure Pulse Oximetry 91 L Oxygen Delivery Method Nasal Cannula Oxygen Flow Rate 2 BMI result Body Mass Index 25.7 Const General: cooperative, no acute distress, alert and awake Nutritional Appearance: well nourished Orientation/consciousness: patient oriented x3 Limitations: no limitations HENMT Head: No hematoma Ears: hearing grossly normal bilaterally and external ears normal General nose exam: Normal external nose present, no nasal discharge noted and no epistaxis Face and sinus: No laceration and Yes other (small abrasion to the left face) Mouth: Normal oral and palatal mucosa present, no drooling and no muffled voice Eyes General: appearance normal, both eyes and all related structures Periorbital: periorbital findings normal Eyelids: Yes eyelids normal Conjunctivae: conjunctivae normal Pupils: Equal, round and reactive pupils present EOM: EOMs intact bilaterally Neck Neck: Yes normal visual inspection, Yes full ROM and Yes no lymphadenopathy Chest Chest palpation & inspection: normal inspection of the chest Resp Effort & Inspection: able to speak in complete sentences Auscultation: diminished lung sounds bilateral in the lower lung bridges GI Inspection: Yes normal to inspection Palpation (GI): Soft to palpation, not firm, nontender, no guarding and not rigid Neuro General: patient oriented x3 and moves all extremities Cranial nerves: Yes Equal, round and reactive pupils present Cognition (Neuro): normal cognition Extrem General: Yes normal to inspection, Yes full ROM and Yes capillary refill normal Psych Appearance: grossly normal Mental Status: mental status grossly normal Affect: normal affect Attitude: cooperative Thought process: Normal thought process present Thought content: Normal thought content present Insight: Good insight present (Psych) Medications Administered Discontinued Medications Generic Name Dose Route Start Last Admin Trade Name Román PRN Reason Stop Dose Admin Iohexol 85 ml 05/06/24 15:25 05/06/24 15:26 Iohexol 350 Mg/Ml 100 Ml Infus..Btl IV 05/06/24 15:26 85 ml ONCE ONE Administration Morphine Sulfate 4 mg 05/06/24 13:57 05/06/24 14:06 Morphine Sulfate 4 Mg/Ml Cartridge IVPUSH 05/06/24 13:58 4 mg ONCE ONE Administration Protocol Medical Decision Making Medical Decision Making MDM Narrative: Patient is an 89 year old assigned female at with a history of HFpEF, COPD, dementia, DM, atrial fib, anxiety, CAD, GERD, and HLD presenting to the emergency department today feeling generally unwell with nausea, vomiting, dizziness, and headache after a fall. Patient's physical exam was as noted in the physical exam portion of this note. Patient's COVID-19 test was positive. Patient's blood work showed an initially elevated troponin of 25.9 with a pending repeat. Patient's urine showed no acute process. Patient's EKG is pending at this time. Patient's chest CT, abd/pelvis CT, head CT, facial bones CT, and c-spine CTs are pending at this time. Patient became hypoxic down into the mid 80s while in the department and started on oxygen via nasal cannula. I explained my physical exam findings as well as all test results to the patient. I answered all questions asked by the patient. Patient signed out to overnight PA pending imaging read, EKG, and repeat troponin. Differential Diagnosis Differential Diagnoses: The differential diagnosis associated with the presentation includes COVID-19 Fall Weakness Nausea Vomiting Admission/Observation Consideration of admission/observation: Escalation of care including admission/observation considered Patient's disposition will be determined after pending results as noted in the MDM Rationale portion of this note. Lab Data [facility] Lab Attestation statement: I reviewed the patient's lab results. My interpretation of these results are in the MDM Rationale portion of this note. 05/06/24 13:52 05/06/24 13:52 Labs: Lab Results 05/06/24 05/06/24 Range/Units 13:37 13:52 WBC 9.1 (4.8-10.8) X10*3/uL RBC 5.25 (4.20-5.50) X10*6/uL Hgb 13.5 (12.0-16.0) g/dl Hct 42.8 (37.0-47.0) % MCV 81.5 (80.0-98.0) fL MCH 25.7 L (27.0-33.0) pg MCHC 31.5 (31.0-35.0) g/dl RDW 17.4 H (11.0-16.0) % Plt Count 267 D (160-400) X10*3/uL MPV 10.7 (9.4-12.3) fL Immature Gran % (Auto) 0.2 (0.0-0.4) % Neut % (Auto) 63.0 (45-73) % Lymph % (Auto) 16.7 L (20-40) % [place] % (Auto) 19.5 H (2-11) % Eos % (Auto) 0.3 (0-4) % Baso % (Auto) 0.3 (0-2) % Lymph # (Auto) 1.5 (1.2-4.9) X10*3/uL [place] # (Auto) 1.8 H (0.1-1.2) X10*3/uL Eos # (Auto) 0.0 (0.0-0.4) X10*3/uL Baso # (Auto) 0.0 (0.0-0.2) X10*3/uL Abs Immat Gran (auto) 0.02 (0.00-0.03) X10*3/uL Absolute Neuts (auto) 5.7 (2.0-8.3) x10*3/uL Absolute Nucleated RBC 0.000 (0.0-0.012) X10*3/uL Nucleated RBC % (auto) 0.0 (0.0-0.2) /100WBC Smear Tech's Comments VERIFIED Sodium 143 (135-145) mmol/L Potassium 3.4 (3.3-5.1) mmol/L Chloride 107 (96-108) mmol/L Carbon Dioxide 27 (22-29) mmol/L Anion Gap 12 (12-20) BUN 10 (9-16) mg/dL Creatinine 0.97 (0.5-1.4) mg/dL Estim Creat Clear Calc 37.2 Estimated GFR 54 Random Glucose 117 H (60-115) mg/dL Calcium 9.7 D (8.4-10.2) mg/dL Magnesium 2.0 (1.6-2.6) mg/dL Total Bilirubin 1.2 H (0.0-1.0) mg/dL AST 34 H (5-31) U/L ALT 13 (0-31) U/L Alkaline Phosphatase 106 (39-117) U/L Total Creatine Kinase 104 (26-140) U/L Troponin I High Sens 25.9 H D (<3.5-17.0) ng/L Total Protein 7.4 (6.5-8.0) g/dL Albumin 3.9 (3.5-5.0) g/dL Urine Color Yellow Urine Appearance Clear Urine pH 6.0 (5.0-9.0) Ur Specific [place] 1.015 (1.005-1.025) Urine Protein Negative (Neg-Trace) mg/dL Urine Glucose (UA) >=1000 H (Negative) mg/dL Urine Ketones Negative (Negative) mg/dL Urine Blood Trace H (Negative) Urine Nitrite Negative (Negative) Ur Leukocyte Esterase Negative (Negative) Urine RBC 3-5 H (0-2) /HPF Urine WBC 0-5 (0-5) /HPF Ur Squamous Epith Cells 3-5 (0-2) /HPF Urine Bacteria 4+ (None Seen) Hyaline Casts 0-2 (0-2) /LPF Influenza Type A (PCR) NEGATIVE (Negative) Influenza Type B (PCR) NEGATIVE (Negative) RSV RNA Qual (PCR) NEGATIVE (Negative) SARS-CoV-2 RNA (RT-PCR) POSITIVE A (Negative) Independent Historian Clinical information obtained from an independent historian. History obtained from or confirmed by: EMS (EMS provided additional history and confirmed the history provided by the patient. ) Critical Care Time Critical Care Time Critical Care Time: Yes Total Critical Care Time: 44 Attestation: I spent 44 minutes of Critical Care Time with this patient. This does not include time spent on separately reported billable procedures. Discharge Plan Discharge Clinical Impression: Hypoxia, COVID-19, Fall Patient Disposition: Still a Patient Prescriptions: No Action (DME) pediatric front wheel walker See Rx Instructions .Route .MEDSUPPLY Qty: 1 0RF Rx Instructions: As directed Eliquis 2.5 mg tablet 2.5 mg PO BID Qty: 180 3RF (DME) lancets [FreeStyle Lancets] 28 gauge misc See Rx Instructions .ROUTE .MEDSUPPLY Qty: 100 3RF Rx Instructions: use to test sugar once a day furosemide 40 mg tablet 40 mg PO DAILY Qty: 90 2RF folic acid 1 mg tablet 1 mg PO DAILY Qty: 90 2RF (DME) blood-glucose meter [[employer] Verio Flex Start] Kit See Rx Instructions .Route Rx Instructions: Test twice a day ascorbic acid (vitamin C) [Vitamin C] 500 mg tablet 500 mg PO DAILY Qty: 90 1RF digoxin 125 mcg (0.125 mg) tablet 125 mcg PO 3XW Qty: 36 1RF tramadol 50 mg tablet 50 mg PO DAILY PRN (Reason: Pain) cyanocobalamin (vitamin B-12) [Vitamin B-12] 1,000 mcg Tablet 1,000 mcg PO DAILY diclofenac sodium [Arthritis Pain (diclofenac)] 1 % gel 4 g topical QID Rx Instructions: apply to single knee, ankle, foot; for foot includes sole/toes/top of foot albuterol sulfate 90 mcg/actuation Hfa Aerosol Inhaler 1 puff INHALATION QID montelukast [Singulair] 10 mg tablet 10 mg PO BEDTIME dexlansoprazole [Dexilant] 60 mg capsule,biphase delayed releas 60 mg PO DAILY@0630 atorvastatin [Lipitor] 40 mg tablet 40 mg PO BEDTIME alprazolam 0.25 mg tablet 0.25 mg PO DAILY PRN (Reason: anxiety) ondansetron 4 mg tablet,disintegrating 4 mg PO Q8H PRN (Reason: nausea and vomiting) Qty: 7 0RF (DME) PEDIATRIC FRONT WHEELED WALKER See Rx Instructions .Route .MEDSUPPLY Qty: 1 0RF Rx Instructions: As directed cholecalciferol (vitamin D3) 25 mcg (1,000 unit) capsule 25 mcg PO DAILY Qty: 90 1RF nystatin 100,000 unit/gram ointment 1 appl topical BID 7 Days Qty: 30 1RF nystatin 100,000 unit/gram powder 1 appl topical DAILY Qty: 15 0RF meclizine 12.5 mg tablet 12.5 mg PO TID PRN (Reason: dizziness) Qty: 14 0RF metoprolol succinate 50 mg tablet extended release 24 hr 75 mg PO DAILY zolpidem 5 mg tablet 5 mg PO BEDTIME PRN (Reason: insomnia) Qty: 90 0RF famotidine 20 mg tablet 20 mg PO DAILY Qty: 90 1RF tamsulosin 0.4 mg capsule 0.4 mg PO BEDTIME Qty: 30 2RF pregabalin 100 mg capsule 100 mg PO Q12H 31 Days Qty: 62 2RF empagliflozin 10 mg tablet 10 mg PO QAM Print Language: Yakut
--- NOTE | 2024-05-06 13:16 | MHC.CM.ED ---
Received notification from Suzanne BUITRAGO that patient is active with their agency. Return referral made in [facility] so [facility] can follow for d/c needs.
[2024-05-06 13:48] LABS: Appearance Urine Clear; Color Urine Yellow; Glucose Urine UA >=1000 mg/dL (Negative); Leukocyte Esterase Urine Negative (Negative); Nitrite Urine Negative (Negative); Specific Gravity - Urine 1.015 (1.005-1.025); UMIC TRIGGER UACC YES; Urine Blood Trace (Negative); Urine Ketones Negative (Negative); Urine Protein Negative (Neg-Trace)
[2024-05-06 13:53] LABS: Bacteria Urine 4+ (None Seen); Hyaline Casts Urine 0-2 /LPF (0-2); WBC Urine 0-5 /HPF (0-5)
[2024-05-06 13:58] LABS: Basophils Percent Auto 0.3 % (0-2); Eosinophils Percent Auto 0.3 % (0-4); Hematocrit 42.8 % (37.0-47.0); Hemoglobin 13.5 g/dl (12.0-16.0); Imm Gran Abs Auto 0.02 X10*3/uL (0.00-0.03); Imm Gran Pct Auto 0.2 % (0.0-0.4); Lymphocytes Absolute Auto 1.5 X10*3/uL (1.2-4.9); Lymphocytes Percent Auto 16.7 % (20-40); MANUAL DIFF FLAG SCAN; Mean Corpuscular HGB Conc 31.5 g/dl (31.0-35.0); Mean Corpuscular Hemoglobin 25.7 pg (27.0-33.0); Mean Corpuscular Volume 81.5 fL (80.0-98.0); Mean Platelet Volume 10.7 fL (9.4-12.3); Monocytes Absolute Auto 1.8 X10*3/uL (0.1-1.2); Monocytes Percent Auto 19.5 % (2-11); Neutrophils Absolute Auto 5.7 x10*3/uL (2.0-8.3); Platelet Count 267 X10*3/uL (160-400); Red Blood Count 5.25 X10*6/uL (4.20-5.50); Red Cell Distribution Width 17.4 % (11.0-16.0); SCAN SMEAR FLAG 1; White Blood Count 9.1 X10*3/uL (4.8-10.8)
--- NOTE | 2024-05-06 13:58 | PC.NURSE ---
pt is alert and oriented, skin pwd, respirations even and unlabored, pt reports that yesterday had an biposy of her pancreas because of nodules getting bigger, she was not feeling well after, but currently denies n/v/ dizziness but is reporting cough with productive phlegm, pt also had falls at home, states tripping and falling face down, broke her glasses and having a headache/cheek pain, pt is in a c-collar, vs stable and ns on the monitor
[2024-05-06] MEDS: Morphine Sulfate 4 MG/ML CARTRIDGE IVPUSH (14:06)
[2024-05-06 14:14] LABS: Alanine Aminotransferase 13 U/L (0-31); Albumin Level 3.9 g/dL (3.5-5.0); Alkaline Phosphatase 106 U/L (39-117); Anion Gap 12 (12-20); Aspartate Amino Transferase 34 U/L (5-31); Bilirubin Total 1.2 mg/dL (0.0-1.0); Blood Urea Nitrogen 10 mg/dL (9-16); Calcium 9.7 mg/dL (8.4-10.2); Carbon Dioxide 27 mmol/L (22-29); Chloride 107 mmol/L (96-108); Creatinine Clr Calc Pharmacy 37.2; Estimated Glomerular Filt Rate 54; Glucose Random 117 mg/dL (60-115); Potassium 3.4 mmol/L (3.3-5.1); Sodium 143 mmol/L (135-145); Total Protein 7.4 g/dL (6.5-8.0)
[2024-05-06 14:18] LABS: Troponin-I High Sensitivity 25.9 ng/L (<3.5-17.0)
[2024-05-06 14:22] LABS: Influenza A PCR NEGATIVE (Negative); Influenza B PCR NEGATIVE (Negative); Resp Syncy Virus RNA Qual PCR NEGATIVE (Negative); SARS COV2 PCR INHOUSE POSITIVE (Negative)
[2024-05-06 14:25] LABS: SLIDE REVIEW VERIFIED
--- NOTE | 2024-05-06 15:15 | PC.NURSE ---
pt's oxygen started to drop to 88% on room air pt put on 2l via nasal cannual
[2024-05-06] MEDS: iohexoL 350 MG/ML 100 ML INFUS..BTL 85 ML IV (15:26)
[2024-05-06 16:27] LABS: Troponin-I High Sensitivity 37.3 ng/L (<3.5-17.0)
--- NOTE | 2024-05-06 18:25 | ECG_ITS ---
Test Reason : SOB Blood Pressure : / mmHG Vent. Rate : 078 BPM Atrial Rate : 000 BPM P-R Int : 000 ms QRS Dur : 086 ms QT Int : 380 ms P-R-T Axes : 000 -14 -20 degrees QTc Int : 433 ms Atrial fibrillation Anterior infarct , age undetermined Abnormal ECG No previous ECGs available Referred By: Alton Borjas Electronically Signed By:Joby Vidal
--- NOTE | 2024-05-06 19:31 | MHC.EDTECH ---
patient EKG was done did not pass over nurse aware
[2024-05-06 19:38] LABS: Troponin-I High Sensitivity 33.8 ng/L (<3.5-17.0)
--- NOTE | 2024-05-06 21:49 | PC.NURSE ---
Pt taken off O2 for room air trial/ O2 staying between 89-93%
--- NOTE | 2024-05-06 22:48 | P.HPHOSP_ITS ---
History of Present Illness Date of Service: 05/06/24 Attending physician on admission: Alma Curiel Chief Complaint: N/V/dizziness Pt is an 89-year-old female with a PMH significant for HFpEF, COPD not on home O2, paroxysmal AFib on Eliquis, ruz-gqqunvw-mngfzebtr type 2 diabetes, CKD 3, anxiety, CAD, GERD, HLD, and ?dementia who presents to the ED lightheadedness, dizziness, and frequent falls at home. Patient reports she underwent pancreatic mass biopsy on 05/05/2024 at [facility] and has since then felt generally unwell with lightheadedness, dizziness, chest tightness/pressure, fatigue, and increased SOB and cough. Reports yesterday borrowed her sister's O2 but that offered very little relief. Patient reports has felt so lightheaded and fatigued that she has fallen 3 times at home since yesterday, including head strike and breaking her glasses. Patient overall is a poor and vague historian and is imprecise concerning details up for falls. Patient also repeatedly complains of bilateral sciatica and diffuse abdominal pain. In the ED pt was tachycardic up to 91, hypertensive up to 162/93, and hypoxic as low as 88% on RA. Labs were significant for testing positive for COVID and initial troponin 25.9 with repeat flat at 37.3 and 33.8. Otherwise grossly unremarkable and around baseline for patient. No leukocytosis. Stable H&H. No significant electrolyte abnormalities. Renal function baseline. Hepatic function baseline. UA negative for UTI. CT?of head negative for acute intracranial pathology. CT of face without acute fracture. CT of cervical spine negative for acute fracture or subluxation. CT of chest negative for acute traumatic findings, but with multiple incidental findings listed below, including cardiomegaly, atherosclerotic ulcers of thoracic aorta, aortic valve and coronary artery calcifications, and multiple pulmonary nodules. CT of abdomen and pelvis found no acute findings. EKG demonstrated AFib with RVR of 108 but no evidence of acute ST elevations or depressions. Pt was treated with morphine. Pt will be admitted to the hospital for treatment and further evaluation of acute hypoxic respiratory failure in setting of acute COVID infection. Review of Systems 2 Review of Systems: Negative except for that which is stated in the [facility] Medical History Weakness Dizziness and giddiness Weakness Yeast infection of the skin Exercise hypoxemia Acute respiratory failure with hypoxia Lipoma of lower back Urinary incontinence Cystitis Acute urinary retention Acute diverticulitis of intestine Generalized abdominal pain Diverticular disease Nausea & vomiting Failure to thrive in adult TSH elevation CHF (congestive heart failure) Atrial fibrillation with RVR Atrial fibrillation with RVR Type 2 diabetes mellitus with hyperglycemia Diabetes mellitus Asthma Hypokalemia Hypomagnesemia Diarrhea Hearing difficulty Dyspnea on exertion History of gastrointestinal diverticular hemorrhage COVID-19 virus infection Rectal bleeding Medicare annual wellness visit, initial Hip pain, left Patellar sleeve fracture of right knee Knee pain, right Nausea and vomiting Coarse tremors Shoulder pain, right Hospital discharge follow-up Mass on back Constipation Tinea corporis Nausea Right wrist pain Left knee pain Left hip pain Toe pain, left Breast cancer screening by mammogram UTI (urinary tract infection) Obesity (BMI 30-39.9) Urinary frequency Toe fracture, left Pancreatic cyst Osteoporosis Peptic ulcer disease Urinary incontinence Rectal incontinence GERD (gastroesophageal reflux disease) Bile salt-induced diarrhea Vaginal prolapse Renal artery stenosis Asthma Lumbar degenerative disc disease Insomnia TIA (transient ischemic attack) Hyperlipidemia, unspecified Essential hypertension Family History Father Cancer Arterial thrombosis Mother Multiple sclerosis Muscular dystrophy Hypertension Depression Chronic mental illness Mental health disorder Brother No problems noted. Brother Gangrene Sister No problems noted. Son No problems noted. Son No problems noted. Son No problems noted. Son No problems noted. Daughter No problems noted. Daughter No problems noted. Daughter No problems noted. Surgical History Hx of colonoscopy History of esophagogastroduodenoscopy (EGD) History of removal of cyst (~10/17/21) History of hemorrhoidectomy History of colectomy History of section History of hysterectomy History of appendectomy History of cholecystectomy Social History Household Members: None Housing: Apartment Do you presently have visiting nurse or other home services: No Alcohol intake: former Comment: 1:1 sitter Patient Tobacco Use Status: Former Tobacco user Tobacco use type: Cigarette Years Smoked: 22 Smoked in Last 30 Days: No e-Cigarette/Vaping Use: Former Use Second Hand Smoke Exposure: No Use of substances other than those prescribed or required for medical reasons: No Advance Directives: Yes Advance Directives on File: Yes Advance Directives Date on File: 08/06/23 Do you have a plan to hurt others: No Plan service: No Current occupational status: disabled Current occupational exposures/hazards: No Cognitive needs: Yes Hearing needs: Yes Vision needs: Yes Meds Allergies Allergy/AdvReac Type Severity Reaction Status Date / Time ciprofloxacin Allergy Severe unknown Verified 05/06/24 12:33 aspirin [Aspirin] Allergy Unknown UNKNOWN Verified 05/06/24 12:33 cefuroxime Allergy Unknown Unknown Verified 05/06/24 12:33 celecoxib [From Celebrex] Allergy Unknown UNKNOWN Verified 05/06/24 12:33 metformin Allergy Unknown diarrhea Verified 05/06/24 12:33 risedronate sodium Allergy Unknown UNKNOWN Verified 05/06/24 12:33 [From Actonel] Sulfa (Sulfonamide Allergy Unknown unknown Verified 05/06/24 12:33 Antibiotics) bupropion AdvReac Intermediate tremor Verified 05/06/24 12:33 ferrous sulfate AdvReac Intermediate tremors Verified 05/06/24 12:33 sertraline AdvReac Intermediate tremors Verified 05/06/24 12:33 Home Medications ?Medication ?Instructions ?Recorded ?Confirmed ?Last Taken ?Type cyanocobalamin (vitamin B-12) 1,000 mcg PO DAILY 08/06/23 04/07/24 02/15/24 History 1,000 mcg tablet (Vitamin B-12) tramadol 50 mg tablet 50 mg PO DAILY PRN Pain 08/06/23 04/07/24 Unknown History blood-glucose meter (OneTouch 01/07/24 04/07/24 Unknown History Verio Flex Start kit) albuterol sulfate 90 mcg/actuation 1 puff inhalation QID 01/10/24 04/07/24 02/15/24 History aerosol inhaler atorvastatin 40 mg tablet (Lipitor) 40 mg PO BEDTIME 01/10/24 04/07/24 01/10/24 09:00 History dexlansoprazole 60 mg 60 mg PO DAILY@0630 01/10/24 04/07/24 02/15/24 History capsule,biphase delayed release (Dexilant) diclofenac sodium 1 % topical gel 4 g topical QID Pain 01/10/24 04/07/24 02/15/24 History (Arthritis Pain (diclofenac)) montelukast 10 mg tablet 10 mg PO BEDTIME 01/10/24 04/07/24 Unknown History (Singulair) alprazolam 0.25 mg tablet 0.25 mg PO DAILY PRN anxiety 02/15/24 04/07/24 02/15/24 History empagliflozin 10 mg tablet 10 mg PO QAM 03/18/24 04/07/24 Unknown History metoprolol succinate 50 mg 75 mg PO DAILY 04/27/24 Unknown History tablet,extended release 24 hr Physical Exam 2 Vital Signs and Narrative: Vital Signs: Last Vital Signs Temp 97.6 F 05/06/24 21:42 Pulse 80 05/06/24 22:14 Resp 20 05/06/24 22:14 BP 151/81 H 05/06/24 21:42 Pulse Ox 88 L 05/06/24 22:14 O2 Del Method Room Air 05/06/24 22:14 O2 Flow Rate 1 05/06/24 21:42 BMI result Body Mass Index 25.7 General: AOx3, appears weak, no acute distress Resp: CTA bilaterally CVS: Irregularly irregular rhythm GI: +BS, no distention, with diffuse tenderness Skin: Warm, dry Neuro: Cranial nerves II-XII grossly intact bilaterally. Motor grossly intact bilaterally. Global symmetric weakness noted Extremities: No edema Psych: Cooperative, repeats self Results Labs 05/06/24 13:52 05/06/24 13:52 Labs: Laboratory Results - last 24 hr 05/06/24 05/06/24 05/06/24 13:37 13:52 16:02 MCV 81.5 MCH 25.7 L MCHC 31.5 RDW 17.4 H Plt Count 267 D MPV 10.7 Immature Gran % (Auto) 0.2 Neut % (Auto) 63.0 Lymph % (Auto) 16.7 L [place] % (Auto) 19.5 H Eos % (Auto) 0.3 Baso % (Auto) 0.3 Lymph # (Auto) 1.5 [place] # (Auto) 1.8 H Eos # (Auto) 0.0 Baso # (Auto) 0.0 Abs Immat Gran (auto) 0.02 Absolute Neuts (auto) 5.7 Absolute Nucleated RBC 0.000 Nucleated RBC % (auto) 0.0 Smear Tech's Comments VERIFIED Anion Gap 12 Estim Creat Clear Calc 37.2 Estimated GFR 54 Random Glucose 117 H Calcium 9.7 D Magnesium 2.0 Total Bilirubin 1.2 H AST 34 H ALT 13 Alkaline Phosphatase 106 Total Creatine Kinase 104 Troponin I High Sens 25.9 H D 37.3 H Total Protein 7.4 Albumin 3.9 Urine Color Yellow Urine Appearance Clear Urine pH 6.0 Ur Specific [place] 1.015 Urine Protein Negative Urine Glucose (UA) >=1000 H Urine Ketones Negative Urine Blood Trace H Urine Nitrite Negative Ur Leukocyte Esterase Negative Urine RBC 3-5 H Urine WBC 0-5 Ur Squamous Epith Cells 3-5 Urine Bacteria 4+ Hyaline Casts 0-2 Influenza Type A (PCR) NEGATIVE Influenza Type B (PCR) NEGATIVE RSV RNA Qual (PCR) NEGATIVE SARS-CoV-2 RNA (RT-PCR) POSITIVE A 05/06/24 19:13 MCV MCH MCHC RDW Plt Count MPV Immature Gran % (Auto) Neut % (Auto) Lymph % (Auto) [place] % (Auto) Eos % (Auto) Baso % (Auto) Lymph # (Auto) [place] # (Auto) Eos # (Auto) Baso # (Auto) Abs Immat Gran (auto) Absolute Neuts (auto) Absolute Nucleated RBC Nucleated RBC % (auto) Smear Tech's Comments Anion Gap Estim Creat Clear Calc Estimated GFR Random Glucose Calcium Magnesium Total Bilirubin AST ALT Alkaline Phosphatase Total Creatine Kinase Troponin I High Sens 33.8 H Total Protein Albumin Urine Color Urine Appearance Urine pH Ur Specific [place] Urine Protein Urine Glucose (UA) Urine Ketones Urine Blood Urine Nitrite Ur Leukocyte Esterase Urine RBC Urine WBC Ur Squamous Epith Cells Urine Bacteria Hyaline Casts Influenza Type A (PCR) Influenza Type B (PCR) RSV RNA Qual (PCR) SARS-CoV-2 RNA (RT-PCR) Imaging Radiologist's Impressions: Impressions Head CT 05/06/24 13:12 IMPRESSION: No acute intracranial pathology. Electronically signed by: Ras Xiong MD 05/06/2024 04:44 PM [facility] [place] Abdomen/Pelvis CT 05/06/24 13:14 IMPRESSION: No acute findings. No bowel obstruction. No pneumoperitoneum. Colonic diverticular disease noted. Slight ectasia of the left biliary radicals noted but I do not see evidence of an obstructing stone. Please correlate with LFTs. Fleischner guidelines were followed. Electronically signed by: Ras Xiong MD 05/06/2024 05:16 PM EST RP Chest CT 05/06/24 13:14 IMPRESSION: 1. No acute traumatic findings in the chest. 2. 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 3. Cardiomegaly with small pericardial effusion. 4. Moderate aortic valve calcifications. 5. Mild coronary artery calcifications. 6. Small hiatal hernia. 7. Pulmonary nodules in the right middle and lower lobes measuring up to 6 mm. According to the UPDATED 2017 Fleischner Society recommendations, the advised follow-up imaging for multiple solid nodules measuring up to 6-8 mm is follow-up CT at 3 to 6 months. In high-risk patients, subsequent CT follow-up at 18 to 24 months is recommended. In low-risk patients, subsequent CT follow-up at 18 to 24 months is optional. Fleischner guidelines were followed. Electronically signed by: Nakia Clements MD 05/06/2024 09:28 PM EST RP Cervical Spine CT 05/06/24 14:57 IMPRESSION: Degenerative changes noted. No acute findings or fracture or encroachment on the spinal canal. Fleischner guidelines were followed. Electronically signed by: Ras Xiong MD 05/06/2024 04:49 PM EST RP Face CT 05/06/24 14:57 IMPRESSION: 1. No evidence of acute fracture of the maxillofacial bones. 2. Moderate sinonasal mucosal disease. Electronically signed by: Ludwin Mondragon DO 05/06/2024 05:26 PM EST RP Assessment and Plan (1) Hypoxia: Status: Acute (2) COVID: Status: Acute Plan Pt is an 89-year-old female with a PMH significant for HFpEF, COPD not on home O2, paroxysmal AFib on Eliquis, swd-ryqplrj-zrmocekej type 2 diabetes, CKD 3, anxiety, CAD, GERD, HLD, and ?dementia who presents to the ED lightheadedness, dizziness, and frequent falls at home. Pt will be admitted to the hospital for treatment and further evaluation of acute hypoxic respiratory failure in setting of acute COVID infection. Acute hypoxic respiratory in the setting COVID infection Cough, chest tightness, SOB, and desatting into the 80s on RA, not on home O2 Will treat with DuoNebs, dexamethasone Titrate supplemental O2 >92, wean as tolerated Airborne and contact precautions Monitor respiratory status Abdominal pain Likely secondary to pacreatic mass biopsy at [facility] yesterday CT of abdomen/pelvis negative for acute abnormality Analgesics for pain management Frequent falls at home Patient reports at least 3 falls yesterday at home Weakness and dizziness likely in the setting of COVID infection CT imaging of head, face, chest, cervical and thoracic spine, and abdomen/pelvis negative for acute abnormalities PT evaluation ?Dementia Pt noted to be repeating self during interview and exam Previously seen by psych on 08/06 who suggested assessing with MOCA Pt lives alone with little to no services OT consult for MOCA Sciatica Continue pregabalin Paroxysmal AFib Continue Eliquis, metoprolol, digoxin COPD Not in acute exacerbation Continue home inhalers HLD Continue statin Ldy-zoxuorf-xmostxdxp type 2 diabetes Continue Jardiance Diabetic diet, sliding scale insulin HFpEF Not in acute exacerbation Continue home RAYSA Brian Full Code Attending:?Dr. Lofton DVT Prophylaxis: On Eliquis Med rec pending Pt will require a hospitalization of at least two nights for treatment of?acute hypoxic respiratory failure in the setting of COVID infection with supplemental oxygen, IV steroids, breathing treatments. Quality Stroke Does the patient have a stroke diagnosis?: No VTE Prior VTE?: No VTE Risk Level:: Medical - moderate - high VTE Device Contraindication: Treatment Not Indicated VTE Drug Contraindication: N/A - Med Ordered
[2024-05-06] MEDS: Pregabalin 100 MG CAPSULE PO (23:39)
[2024-05-06] MEDS: Acetaminophen 325 MG TABLET 975 MG PO (23:39)
[2024-05-06] MEDS: dexAMETHasone sod phosphate 4 MG/ML VIAL 6 MG IVPUSH (23:40)
[2024-05-06] MEDS: Apixaban 2.5 MG TABLET PO (23:40)
[2024-05-06] MEDS: Zolpidem Tartrate 5 MG TABLET PO (23:40)
[2024-05-06] MEDS: ondansetron HCL 4 MG/2 ML VIAL IVPUSH (23:40)
[2024-05-07] VITALS (8 sets, daily range): BP systolic 119–159; BP diastolic 61–86; PULSE 74–112; RESP 13–18; TEMP 36.1–36.5; O2SAT 92–98; BMI 25.7
[2024-05-07] MEDS: 0.9 % Sodium Chloride Flush 3 ML SYRINGE IVFLUSH ×3 (00:53→20:19)
[2024-05-07 04:48] LABS: Basophils Percent Auto 0.2 % (0-2); Hematocrit 43.4 % (37.0-47.0); Hemoglobin 13.5 g/dl (12.0-16.0); Imm Gran Abs Auto 0.02 X10*3/uL (0.00-0.03); Imm Gran Pct Auto 0.3 % (0.0-0.4); Lymphocytes Absolute Auto 0.6 X10*3/uL (1.2-4.9); Lymphocytes Percent Auto 9.7 % (20-40); MANUAL DIFF FLAG NO; Mean Corpuscular HGB Conc 31.1 g/dl (31.0-35.0); Mean Corpuscular Hemoglobin 25.4 pg (27.0-33.0); Mean Corpuscular Volume 81.6 fL (80.0-98.0); Mean Platelet Volume 10.4 fL (9.4-12.3); Monocytes Absolute Auto 0.3 X10*3/uL (0.1-1.2); Monocytes Percent Auto 4.4 % (2-11); Neutrophils Absolute Auto 5.7 x10*3/uL (2.0-8.3); Neutrophils Percent Auto 85.4 % (45-73); Platelet Count 261 X10*3/uL (160-400); Red Blood Count 5.32 X10*6/uL (4.20-5.50); Red Cell Distribution Width 17.2 % (11.0-16.0); White Blood Count 6.6 X10*3/uL (4.8-10.8)
[2024-05-07 05:01] LABS: Digoxin 0.5 ng/mL (0.8-2.0)
[2024-05-07 05:04] LABS: Anion Gap 15 (12-20); Blood Urea Nitrogen 11 mg/dL (9-16); Calcium 9.4 mg/dL (8.4-10.2); Carbon Dioxide 24 mmol/L (22-29); Chloride 107 mmol/L (96-108); Estimated Glomerular Filt Rate > 60; Glucose Random 163 mg/dL (60-115); Magnesium 2.1 mg/dL (1.6-2.6); Potassium 3.6 mmol/L (3.3-5.1); Sodium 142 mmol/L (135-145)
[2024-05-07] MEDS: Albuterol/Iprat 2.5/0.5MG 3 ML AMPUL.NEB INHALE ×2 (06:18→15:23)
--- NOTE | 2024-05-07 07:21 | HO.PM.IMPN ---
Subjective Subjective Date of Service: 05/07/24 Interval History: f/u on acute hypoxic resp failure d/t covid Physical Exam Vital Signs: Vital Signs: Last Vital Signs Temp 97 F 05/07/24 01:48 Pulse 112 H 05/07/24 06:19 Resp 18 05/07/24 06:19 BP 119/61 05/07/24 01:48 Pulse Ox 92 05/07/24 01:48 O2 Del Method Nasal Cannula 05/07/24 01:48 O2 Flow Rate 1 05/07/24 01:48 BMI result Body Mass Index 25.7 General: frail, no distress, oriented to self, place Resp: CTA bilateral CVS: S1,S2,RRR GI: +BS, NT, no distention Skin: No rash Neuro: motor grossly intact Psych: appropriate affect Objective Data Active Medications Acetaminophen (Acetaminophen 325 Mg Tablet) 975 mg PO Q6H PRN PRN Reason: Pain, Mild (Pain Scale 1-3), fever or headache Last Admin: 05/06/24 23:39 Dose: 975 mg Documented By: RADHA Albuterol/Ipratropium (Albuterol/Iprat 2.5/0.5mg 3 Ml Ampul.Neb) 3 ml INHALE Q4H PRN PRN Reason: wheezing Last Admin: 05/07/24 06:18 Dose: 3 ml Documented By: BARON Dexamethasone Sodium Phosphate (Dexamethasone Sod Phosphate 4 Mg/Ml Vial) 6 mg IVPUSH DAILY [facility] Glucose (Glucose Gel 15 Gm Gel..Gram.) 15 gm PO Q15M PRN; Protocol PRN Reason: per Hypoglycemia Standing Ord. Dextrose (D10) 250 mls @ 750 mls/hr IV Q15M PRN; Protocol PRN Reason: per Hypoglycemia Standing Ord. Insulin Human Lispro (Insulin Lispro 100 Unit/Ml 3 Ml Vial) 0 unit SUBCUT QIDACHS [facility]; Protocol Ondansetron HCl (Ondansetron Hcl 4 Mg/2 Ml Vial) 4 mg IVPUSH Q6H PRN PRN Reason: Nausea and Vomiting Last Admin: 05/06/24 23:40 Dose: 4 mg Documented By: RADHA Sodium Chloride (0.9 % Sodium Chloride Flush 3 Ml Syringe) 3 ml IVFLUSH QSHIFT [facility] Last Admin: 05/07/24 00:53 Dose: 3 ml Documented By: RADHA Zolpidem Tartrate (Zolpidem Tartrate 5 Mg Tablet) 5 mg PO BEDTIME PRN PRN Reason: Insomnia Last Admin: 05/06/24 23:40 Dose: 5 mg Documented By: RADHA Labs 05/07/24 04:38 05/07/24 04:38 Labs: Laboratory Results - last 24 hr 05/06/24 05/06/24 05/06/24 13:37 13:52 16:02 MCV 81.5 MCH 25.7 L MCHC 31.5 RDW 17.4 H Plt Count 267 D MPV 10.7 Immature Gran % (Auto) 0.2 Neut % (Auto) 63.0 Lymph % (Auto) 16.7 L [place] % (Auto) 19.5 H Eos % (Auto) 0.3 Baso % (Auto) 0.3 Lymph # (Auto) 1.5 [place] # (Auto) 1.8 H Eos # (Auto) 0.0 Baso # (Auto) 0.0 Abs Immat Gran (auto) 0.02 Absolute Neuts (auto) 5.7 Absolute Nucleated RBC 0.000 Nucleated RBC % (auto) 0.0 Smear Tech's Comments VERIFIED Anion Gap 12 Estim Creat Clear Calc 37.2 Estimated GFR 54 Random Glucose 117 H Calcium 9.7 D Magnesium 2.0 Total Bilirubin 1.2 H AST 34 H ALT 13 Alkaline Phosphatase 106 Total Creatine Kinase 104 Troponin I High Sens 25.9 H D 37.3 H Total Protein 7.4 Albumin 3.9 Urine Color Yellow Urine Appearance Clear Urine pH 6.0 Ur Specific [place] 1.015 Urine Protein Negative Urine Glucose (UA) >=1000 H Urine Ketones Negative Urine Blood Trace H Urine Nitrite Negative Ur Leukocyte Esterase Negative Urine RBC 3-5 H Urine WBC 0-5 Ur Squamous Epith Cells 3-5 Urine Bacteria 4+ Hyaline Casts 0-2 Digoxin Influenza Type A (PCR) NEGATIVE Influenza Type B (PCR) NEGATIVE RSV RNA Qual (PCR) NEGATIVE SARS-CoV-2 RNA (RT-PCR) POSITIVE A 05/06/24 05/07/24 19:13 04:38 MCV 81.6 MCH 25.4 L MCHC 31.1 RDW 17.2 H Plt Count 261 MPV 10.4 Immature Gran % (Auto) 0.3 Neut % (Auto) 85.4 H Lymph % (Auto) 9.7 L [place] % (Auto) 4.4 Eos % (Auto) 0.0 Baso % (Auto) 0.2 Lymph # (Auto) 0.6 L [place] # (Auto) 0.3 Eos # (Auto) 0.0 Baso # (Auto) 0.0 Abs Immat Gran (auto) 0.02 Absolute Neuts (auto) 5.7 Absolute Nucleated RBC 0.000 Nucleated RBC % (auto) 0.0 Smear Tech's Comments Anion Gap 15 Estim Creat Clear Calc 42.0 Estimated GFR > 60 Random Glucose 163 H Calcium 9.4 Magnesium 2.1 Total Bilirubin AST ALT Alkaline Phosphatase Total Creatine Kinase Troponin I High Sens 33.8 H Total Protein Albumin Urine Color Urine Appearance Urine pH Ur Specific [place] Urine Protein Urine Glucose (UA) Urine Ketones Urine Blood Urine Nitrite Ur Leukocyte Esterase Urine RBC Urine WBC Ur Squamous Epith Cells Urine Bacteria Hyaline Casts Digoxin 0.5 L Influenza Type A (PCR) Influenza Type B (PCR) RSV RNA Qual (PCR) SARS-CoV-2 RNA (RT-PCR) Assessment and Plan (1) Hypoxia: Status: Acute (2) COVID: Status: Acute Plan 89-year-old female with a PMH significant for HFpEF, COPD not on home O2, paroxysmal AFib on Eliquis, unj-cpresas-uaakmxrgf type 2 diabetes, CKD 3, anxiety, CAD, GERD, HLD, and ?dementia who presents to the ED lightheadedness, dizziness, and frequent falls at home. Pt will be admitted to the hospital for treatment and further evaluation of acute hypoxic respiratory failure in setting of acute COVID infection. Acute hypoxic respiratory d/t covid supplemental O2, wean as tolerated continue dexamethasone covid isolation Abdominal pain Likely secondary to pacreatic mass biopsy at [facility] yesterday CT of abdomen/pelvis negative for acute abnormality Analgesics for pain management Frequent falls at home Patient reports at least 3 falls yesterday at home Weakness and dizziness likely in the setting of COVID infection CT imaging of head, face, chest, cervical and thoracic spine, and abdomen/pelvis negative for acute abnormalities PT evaluation ?Dementia Pt noted to be repeating self during interview and exam Previously seen by psych on 08/06 who suggested assessing with MOCA Pt lives alone with little to no services OT consult for MOCA Sciatica Continue pregabalin Paroxysmal AFib Continue Eliquis, metoprolol, digoxin COPD Not in acute exacerbation Continue home inhalers HLD Continue statin Fxr-ellyiyf-somjkinrm type 2 diabetes Continue Jardiance Diabetic diet, sliding scale insulin HFpEF Not in acute exacerbation Continue home Lasix, BB Full Code DVT Prophylaxis: On Eliquis Med rec pending Need for inpt: management of covid with acute hypoxic resp failure Quality Stroke Does the patient have a stroke diagnosis?: No VTE Prior VTE?: No VTE Risk Level:: Medical - moderate - high VTE Device Contraindication: Treatment Not Indicated VTE Drug Contraindication: N/A - Med Ordered
[2024-05-07 07:40] LABS: Glucose, Whole Blood 157 mg/dL (60-115)
[2024-05-07] MEDS: Insulin Lispro 100 UNIT/ML 3 ML VIAL SUBCUT ×3 (08:49→20:19)
[2024-05-07] MEDS: dexAMETHasone sod phosphate 4 MG/ML VIAL 6 MG IVPUSH (08:50)
--- NOTE | 2024-05-07 08:56 | PC.NURSE ---
Resumed care of patient at 0700. Pt reporting coughing and BELLO at this time. She has had OT/PT at this time. Pt is awaiting bed upstairs, O2 remains on at baseline, vitals stable
--- NOTE | 2024-05-07 09:31 | MHC.CM.PN ---
Patient has a ? of Dementia and is Covid (+); CM spoke with Sister/HCP/Lili @ [phone] and addressed IMM with her (original will be mailed certified letter to Lili @ [address] [place] [phone] and a copy will be placed on the chart). PT is recommending STR and Patient's usual preferences are [facility], [facility] and [facility]. CM has initiated and will follow for dc planning.Patient lives alone in an apartment, uses a walker, and is active with [facility].
--- NOTE | 2024-05-07 10:03 | MHC.EDTECH ---
this tech assisted pt (x1 assist) to bedside commode, pt tolerated well, given new linens and repositioned. all needs met at this time, vitals taken and entered
--- NOTE | 2024-05-07 10:25 | PHA.MEDREC ---
Pharmacy Consult ? Medication Reconciliation Pharmacy has completed the medication reconciliation. Spoke with Primary contact, Krystin Millan who is a neighbor/friend who helps take care of the patient. She was able to go to the patient's home and read off the prescription bottles to me, confirmed the patient has nystatin powder now and not the ointment. Updated Digoxin order as patient takes on Friday/Friday/Friday.
[2024-05-07] MEDS: ondansetron HCL 4 MG/2 ML VIAL IVPUSH ×2 (10:46→20:24)
[2024-05-07 14:12] LABS: Glucose, Whole Blood 253 mg/dL (60-115)
[2024-05-07] MEDS: Acetaminophen 325 MG TABLET 975 MG PO (15:17)
[2024-05-07 19:57] LABS: Glucose, Whole Blood 206 mg/dL (60-115)
--- NOTE | 2024-05-07 20:43 | PC.NURSE ---
pt tearful/nauseous reports feeling anxious. Dr. Lofton made aware. report given to [facility] rn javier and pt transported upstairs.
[2024-05-07] MEDS: LORazepam 2 MG/ML VIAL 0.5 MG IVPUSH (22:04)
[2024-05-07 23:14] LABS: Glucose, Whole Blood 162 mg/dL (60-115)
[2024-05-08] VITALS (8 sets, daily range): BP systolic 138–176; BP diastolic 70–86; PULSE 58–102; RESP 12–20; TEMP 36.1–36.7; O2SAT 96–100
[2024-05-08] MEDS: HYDROmorphone HCl 0.5 MG/0.5 ML SYRINGE IVPUSH (00:13)
[2024-05-08] MEDS: 0.9 % Sodium Chloride Flush 3 ML SYRINGE IVFLUSH ×3 (00:17→21:27)
[2024-05-08 07:41] LABS: Glucose, Whole Blood 130 mg/dL (60-115)
[2024-05-08] MEDS: dexAMETHasone sod phosphate 4 MG/ML VIAL 6 MG IVPUSH (09:24)
[2024-05-08] MEDS: ondansetron HCL 4 MG/2 ML VIAL IVPUSH ×3 (09:24→21:26)
--- NOTE | 2024-05-08 10:32 | P.PNIM_ITS ---
Subjective Subjective Date of Service: 05/08/24 Interval History: f/u on acute hypoxic resp failure d/t covid hypoxia is better, very anxious, has nausea Physical Exam 2 Vital Signs: Vital Signs: Last Vital Signs Temp 98.1 F 05/08/24 07:49 Pulse 98 05/08/24 07:49 Resp 12 05/08/24 07:49 BP 148/70 H 05/08/24 07:49 Pulse Ox 98 05/08/24 07:49 O2 Del Method Nasal Cannula 05/08/24 07:49 O2 Flow Rate 2 05/08/24 07:49 BMI result Body Mass Index 25.7 General: frail, no distress, oriented to self, place Resp: CTA bilateral CVS: S1,S2,RRR GI: +BS, NT, no distention Skin: No rash Neuro: motor grossly intact Psych: appropriate affect Objective Data Active Medications Acetaminophen (Acetaminophen 325 Mg Tablet) 975 mg PO Q6H PRN PRN Reason: Pain, Mild (Pain Scale 1-3), fever or headache Last Admin: 05/07/24 15:17 Dose: 975 mg Documented By: ARIADNA Albuterol/Ipratropium (Albuterol/Iprat 2.5/0.5mg 3 Ml Ampul.Neb) 3 ml INHALE Q4H PRN PRN Reason: wheezing Last Admin: 05/07/24 15:23 Dose: 3 ml Documented By: ARIADNA Dexamethasone Sodium Phosphate (Dexamethasone Sod Phosphate 4 Mg/Ml Vial) 6 mg IVPUSH DAILY [facility] Last Admin: 05/08/24 09:24 Dose: 6 mg Documented By: MARCOSTEKSimon Glucose (Glucose Gel 15 Gm Gel..Gram.) 15 gm PO Q15M PRN; Protocol PRN Reason: per Hypoglycemia Standing Ord. Hydromorphone HCl (Hydromorphone Hcl 0.5 Mg/0.5 Ml Syringe) 0.5 mg IVPUSH Q4H PRN; Protocol PRN Reason: Pain, Severe (Pain Scale 7-10) Last Admin: 05/08/24 00:13 Dose: 0.5 mg Documented By: FLORENCELAMGio Dextrose (D10) 250 mls @ 750 mls/hr IV Q15M PRN; Protocol PRN Reason: per Hypoglycemia Standing Ord. Insulin Human Lispro (Insulin Lispro 100 Unit/Ml 3 Ml Vial) 0 unit SUBCUT QIDACHS [facility]; Protocol Last Admin: 05/08/24 07:48 Dose: Not Given Documented By: SCOUT Non-Admin Reason: No Insulin Coverage Ondansetron HCl (Ondansetron Hcl 4 Mg/2 Ml Vial) 4 mg IVPUSH Q6H PRN PRN Reason: Nausea and Vomiting Last Admin: 05/08/24 09:24 Dose: 4 mg Documented By: SCOUT Sodium Chloride (0.9 % Sodium Chloride Flush 3 Ml Syringe) 3 ml IVFLUSH [facility] Last Admin: 05/08/24 09:24 Dose: 3 ml Documented By: SCOUT Zolpidem Tartrate (Zolpidem Tartrate 5 Mg Tablet) 5 mg PO BEDTIME PRN PRN Reason: Insomnia Last Admin: 05/06/24 23:40 Dose: 5 mg Documented By: RADHA Labs 05/07/24 04:38 05/07/24 04:38 Labs: Laboratory Results - last 24 hr 05/07/24 05/07/24 05/07/24 13:57 19:50 22:45 POC Glucose 253 H 206 H 162 H 05/08/24 07:09 POC Glucose 130 H Assessment and Plan (1) Hypoxia: Status: Acute (2) COVID: Status: Acute Plan 89-year-old female with a PMH significant for HFpEF, COPD not on home O2, paroxysmal AFib on Eliquis, mys-hbgnbho-aadewscoe type 2 diabetes, CKD 3, anxiety, CAD, GERD, HLD, and ?dementia who presents to the ED lightheadedness, dizziness, and frequent falls at home. Pt will be admitted to the hospital for treatment and further evaluation of acute hypoxic respiratory failure in setting of acute COVID infection. Acute hypoxic respiratory d/t covid supplemental O2, wean as tolerated continue dexamethasone covid isolation Abdominal pain Likely secondary to pacreatic mass biopsy at [facility] on 05/06 CT of abdomen/pelvis negative for acute abnormality Analgesics for pain management Frequent falls at home Patient reports at least 3 falls yesterday at home Weakness and dizziness likely in the setting of COVID infection CT imaging of head, face, chest, cervical and thoracic spine, and abdomen/pelvis negative for acute abnormalities PT evaluation ?Dementia Pt noted to be repeating self during interview and exam Previously seen by psych on 08/06 who suggested assessing with MOCA Pt lives alone with little to no services OT consult for MOCA Sciatica Continue pregabalin Paroxysmal AFib Continue Eliquis, metoprolol, digoxin COPD Not in acute exacerbation Continue home inhalers HLD Continue statin Kvt-vmplrzp-msuotxmss type 2 diabetes Continue Jardiance Diabetic diet, sliding scale insulin HFpEF Not in acute exacerbation Continue home Lasix, BB Full Code DVT Prophylaxis: On Eliquis Med rec pending Need for inpt: management of covid with acute hypoxic resp failure Quality Stroke Does the patient have a stroke diagnosis?: No VTE Prior VTE?: No VTE Risk Level:: Medical - moderate - high VTE Device Contraindication: Treatment Not Indicated VTE Drug Contraindication: N/A - Med Ordered
[2024-05-08] MEDS: Furosemide 40 MG TABLET PO (11:47)
[2024-05-08] MEDS: Apixaban 2.5 MG TABLET PO ×2 (11:47→21:26)
[2024-05-08] MEDS: Empagliflozin 10 MG TABLET PO (11:47)
[2024-05-08] MEDS: Insulin Lispro 100 UNIT/ML 3 ML VIAL SUBCUT ×3 (11:50→21:52)
[2024-05-08] MEDS: Metoprolol Succinate ER 25 MG TAB.ER.24H 75 MG PO (11:50)
[2024-05-08 12:10] LABS: Glucose, Whole Blood 297 mg/dL (60-115)
[2024-05-08 12:41] LABS: Hematocrit 41.4 % (37.0-47.0); Mean Corpuscular HGB Conc 31.4 g/dl (31.0-35.0); Mean Corpuscular Hemoglobin 25.4 pg (27.0-33.0); Mean Platelet Volume 10.6 fL (9.4-12.3); Platelet Count 296 X10*3/uL (160-400); Red Blood Count 5.11 X10*6/uL (4.20-5.50); Red Cell Distribution Width 17.3 % (11.0-16.0)
[2024-05-08 12:50] LABS: Anion Gap 16 (12-20); Blood Urea Nitrogen 18 mg/dL (9-16); Calcium 9.8 mg/dL (8.4-10.2); Carbon Dioxide 23 mmol/L (22-29); Chloride 107 mmol/L (96-108); Creatinine Clr Calc Pharmacy 40.1; Estimated Glomerular Filt Rate 59; Glucose Random 265 mg/dL (60-115); Potassium 3.6 mmol/L (3.3-5.1); Sodium 142 mmol/L (135-145)
[2024-05-08] MEDS: ALPRAZolam 0.25 MG TABLET PO (14:45)
[2024-05-08 16:45] LABS: Glucose, Whole Blood 180 mg/dL (60-115)
[2024-05-08] MEDS: Acetaminophen 325 MG TABLET 975 MG PO (21:26)
[2024-05-08] MEDS: Montelukast Sodium 10 MG TABLET PO (21:26)
[2024-05-08] MEDS: Tamsulosin HCL 0.4 MG CAPSULE PO (21:26)
[2024-05-08] MEDS: Pregabalin 100 MG CAPSULE PO (21:26)
[2024-05-08] MEDS: Zolpidem Tartrate 5 MG TABLET PO (21:26)
[2024-05-08] MEDS: Famotidine 20 MG TABLET PO (21:26)
[2024-05-08] MEDS: Atorvastatin Calcium 40 MG TABLET PO (21:27)
[2024-05-08 22:04] LABS: Glucose, Whole Blood 158 mg/dL (60-115)
[2024-05-09] VITALS (8 sets, daily range): BP systolic 124–183; BP diastolic 64–80; PULSE 35–96; RESP 12–20; TEMP 36–36.9; O2SAT 95–99
[2024-05-09] MEDS: Omeprazole 40 MG CAPSULE.DR PO (05:29)
[2024-05-09 07:41] LABS: Glucose, Whole Blood 115 mg/dL (60-115)
--- NOTE | 2024-05-09 09:36 | P.PNIM_ITS ---
Subjective Subjective Date of Service: 05/09/24 Interval History: f/u on acute hypoxic resp failure d/t covid she is feeling better, less anxious, hypoxia is better Physical Exam 2 Vital Signs: Vital Signs: Last Vital Signs Temp 98.5 F 05/09/24 08:00 Pulse 62 05/09/24 08:00 Resp 12 05/09/24 08:00 BP 146/80 H 05/09/24 08:00 Pulse Ox 99 05/09/24 08:00 O2 Del Method Nasal Cannula 05/09/24 08:00 O2 Flow Rate 2 05/09/24 08:00 BMI result Body Mass Index 25.7 General:no distress, orieted to place and self Resp: CTA bilateral CVS: S1,S2,RRR GI: +BS, NT, no distention Skin: No rash Neuro: motor grossly intact Psych: appropriate affect Objective Data Active Medications Acetaminophen (Acetaminophen 325 Mg Tablet) 975 mg PO Q6H PRN PRN Reason: Pain, Mild (Pain Scale 1-3), fever or headache Last Admin: 05/08/24 21:26 Dose: 975 mg Documented By: NOY Albuterol/Ipratropium (Albuterol/Iprat 2.5/0.5mg 3 Ml Ampul.Neb) 3 ml INHALE Q4H PRN PRN Reason: wheezing Last Admin: 05/07/24 15:23 Dose: 3 ml Documented By: ARIADNA Alprazolam (Alprazolam 0.25 Mg Tablet) 0.25 mg PO DAILY PRN PRN Reason: anxiety Last Admin: 05/08/24 14:45 Dose: 0.25 mg Documented By: SCOUT Apixaban (Apixaban 2.5 Mg Tablet) 2.5 mg PO BID JAREK Last Admin: 05/08/24 21:26 Dose: 2.5 mg Documented By: NOY Ascorbic Acid (Ascorbic Acid 500 Mg Tablet) 500 mg PO DAILY [facility] Atorvastatin Calcium (Atorvastatin Calcium 40 Mg Tablet) 40 mg PO BEDTIME [facility] Last Admin: 05/08/24 21:27 Dose: 40 mg Documented By: NOY Cyanocobalamin (Cyanocobalamin (Vitamin B-12) 1,000 Mcg Tablet) 1,000 mcg PO DAILY [facility] Dexamethasone Sodium Phosphate (Dexamethasone Sod Phosphate 4 Mg/Ml Vial) 6 mg IVPUSH DAILY [facility] Last Admin: 05/08/24 09:24 Dose: 6 mg Documented By: SCOUT Digoxin (Digoxin 0.125 Mg Tablet) 0.125 mg PO MoWeFr@1000 [facility]; Protocol Empagliflozin (Empagliflozin 10 Mg Tablet) 10 mg PO DAILY [facility] Last Admin: 05/08/24 11:47 Dose: 10 mg Documented By: SCOUT Famotidine (Famotidine 20 Mg Tablet) 20 mg PO BEDTIME [facility] Last Admin: 05/08/24 21:26 Dose: 20 mg Documented By: NOY Folic Acid (Folic Acid 1 Mg Tablet) 1 mg PO DAILY [facility] Furosemide (Furosemide 40 Mg Tablet) 40 mg PO DAILY [facility]; Protocol Last Admin: 05/08/24 11:47 Dose: 40 mg Documented By: SCOUT Glucose (Glucose Gel 15 Gm Gel..Gram.) 15 gm PO Q15M PRN; Protocol PRN Reason: per Hypoglycemia Standing Ord. Hydromorphone HCl (Hydromorphone Hcl 0.5 Mg/0.5 Ml Syringe) 0.5 mg IVPUSH Q4H PRN; Protocol PRN Reason: Pain, Severe (Pain Scale 7-10) Last Admin: 05/08/24 00:13 Dose: 0.5 mg Documented By: SACHIN Dextrose (D10) 250 mls @ 750 mls/hr IV Q15M PRN; Protocol PRN Reason: per Hypoglycemia Standing Ord. Insulin Human Lispro (Insulin Lispro 100 Unit/Ml 3 Ml Vial) 0 unit SUBCUT QIDACHS [facility]; Protocol Last Admin: 05/09/24 07:45 Dose: Not Given Documented By: GURPREET Non-Admin Reason: No Insulin Coverage Meclizine HCl (Meclizine Hcl 12.5 Mg Tablet) 12.5 mg PO TID PRN PRN Reason: dizziness Metoprolol Succinate (Metoprolol Succinate Er 25 Mg Tab.Er.24h) 75 mg PO DAILY [facility]; Protocol Last Admin: 05/08/24 11:50 Dose: 75 mg Documented By: SCOUT Montelukast Sodium (Montelukast Sodium 10 Mg Tablet) 10 mg PO BEDTIME [facility] Last Admin: 05/08/24 21:26 Dose: 10 mg Documented By: NOY Nystatin (Nystatin Powder 15 Gm Bottle) 1 appl TOPICAL DAILY [facility]; Protocol Omeprazole (Omeprazole 40 Mg Capsule.) 40 mg PO DAILY@0630 [facility] Last Admin: 05/09/24 05:29 Dose: 40 mg Documented By: NOY Ondansetron HCl (Ondansetron Hcl 4 Mg/2 Ml Vial) 4 mg IVPUSH Q6H PRN PRN Reason: Nausea and Vomiting Last Admin: 05/08/24 21:26 Dose: 4 mg Documented By: NOY Pregabalin (Pregabalin 100 Mg Capsule) 100 mg PO BID [facility] Last Admin: 05/08/24 21:26 Dose: 100 mg Documented By: NOY Sodium Chloride (0.9 % Sodium Chloride Flush 3 Ml Syringe) 3 ml IVFLUSH QSHIFT [facility] Last Admin: 05/08/24 21:27 Dose: 3 ml Documented By: NOY Tamsulosin HCl (Tamsulosin Hcl 0.4 Mg Capsule) 0.4 mg PO BEDTIME [facility] Last Admin: 05/08/24 21:26 Dose: 0.4 mg Documented By: NOY Vitamin D (Cholecalciferol (Vitamin D3) 25 Mcg Tablet) 25 mcg PO DAILY [facility] Zolpidem Tartrate (Zolpidem Tartrate 5 Mg Tablet) 5 mg PO BEDTIME PRN PRN Reason: Insomnia Last Admin: 05/08/24 21:26 Dose: 5 mg Documented By: NOY Labs 05/08/24 12:32 05/08/24 12:32 Labs: Laboratory Results - last 24 hr 05/08/24 05/08/24 05/08/24 11:47 12:32 16:38 MCV 81.0 MCH 25.4 L MCHC 31.4 RDW 17.3 H Plt Count 296 MPV 10.6 Absolute Nucleated RBC 0.000 Nucleated RBC % (auto) 0.0 Anion Gap 16 Estim Creat Clear Calc 40.1 Estimated GFR 59 POC Glucose 297 H 180 H Random Glucose 265 H Calcium 9.8 05/08/24 05/09/24 21:41 07:31 MCV MCH MCHC RDW Plt Count MPV Absolute Nucleated RBC Nucleated RBC % (auto) Anion Gap Estim Creat Clear Calc Estimated GFR POC Glucose 158 H 115 Random Glucose Calcium Assessment and Plan (1) Hypoxia: Status: Acute (2) COVID: Status: Acute Plan 89-year-old female with a PMH significant for HFpEF, COPD not on home O2, paroxysmal AFib on Eliquis, klx-qcwyqon-fsuzxvwta type 2 diabetes, CKD 3, anxiety, CAD, GERD, HLD, and ?dementia who presents to the ED lightheadedness, dizziness, and frequent falls at home. Pt will be admitted to the hospital for treatment and further evaluation of acute hypoxic respiratory failure in setting of acute COVID infection. Acute hypoxic respiratory d/t covid supplemental O2, wean as tolerated continue dexamethasone covid isolation Abdominal pain Likely secondary to pacreatic mass biopsy at [facility] on 05/06 CT of abdomen/pelvis negative for acute abnormality Analgesics for pain management Frequent falls at home Patient reports at least 3 falls before coming in Weakness and dizziness likely in the setting of COVID infection CT imaging of head, face, chest, cervical and thoracic spine, and abdomen/pelvis negative for acute abnormalities PT evaluation prior to dc ?Dementia Pt noted to be repeating self during interview and exam Previously seen by psych on 08/06 who suggested assessing with MOCA Pt lives alone with little to no services OT consult for MOCA Sciatica Continue pregabalin Paroxysmal AFib Continue Eliquis, metoprolol, digoxin COPD Not in acute exacerbation Continue home inhalers HLD Continue statin Eoh-nzwyism-urjyntguj type 2 diabetes Continue Jardiance Diabetic diet, sliding scale insulin HFpEF Not in acute exacerbation Continue home Lasix, BB Full Code DVT Prophylaxis: On Eliquis Med rec pending Need for inpt: management of covid with acute hypoxic resp failure Quality Stroke Does the patient have a stroke diagnosis?: No VTE Prior VTE?: No VTE Risk Level:: Medical - moderate - high VTE Device Contraindication: Treatment Not Indicated VTE Drug Contraindication: N/A - Med Ordered
[2024-05-09] MEDS: dexAMETHasone sod phosphate 4 MG/ML VIAL 6 MG IVPUSH (09:44)
[2024-05-09] MEDS: Cholecalciferol (Vitamin D3) 25 MCG TABLET PO (09:45)
[2024-05-09] MEDS: Pregabalin 100 MG CAPSULE PO ×2 (09:45→20:26)
[2024-05-09] MEDS: Metoprolol Succinate ER 25 MG TAB.ER.24H 75 MG PO (09:45)
[2024-05-09] MEDS: Ascorbic Acid 500 MG TABLET PO (09:45)
[2024-05-09] MEDS: Furosemide 40 MG TABLET PO (09:45)
[2024-05-09] MEDS: Folic Acid 1 MG TABLET PO (09:45)
[2024-05-09] MEDS: Empagliflozin 10 MG TABLET PO (09:45)
[2024-05-09] MEDS: 0.9 % Sodium Chloride Flush 3 ML SYRINGE IVFLUSH ×3 (09:45→20:34)
[2024-05-09] MEDS: Apixaban 2.5 MG TABLET PO ×2 (09:45→20:26)
[2024-05-09] MEDS: Cyanocobalamin (Vitamin B-12) 1,000 MCG TABLET 1000 MCG PO (09:45)
[2024-05-09] MEDS: ondansetron HCL 4 MG/2 ML VIAL IVPUSH ×2 (09:57→19:45)
--- NOTE | 2024-05-09 10:04 | PC.NURSE ---
after morning PO meds patient did vomit x1, pills in emesis, notified. Zofran admin , effectiveness pending
[2024-05-09 11:45] LABS: Glucose, Whole Blood 257 mg/dL (60-115)
[2024-05-09] MEDS: Insulin Lispro 100 UNIT/ML 3 ML VIAL SUBCUT ×3 (12:35→21:41)
[2024-05-09] MEDS: ALPRAZolam 0.25 MG TABLET PO (12:38)
[2024-05-09 17:05] LABS: Glucose, Whole Blood 205 mg/dL (60-115)
[2024-05-09] MEDS: Montelukast Sodium 10 MG TABLET PO (20:25)
[2024-05-09] MEDS: Atorvastatin Calcium 40 MG TABLET PO (20:26)
[2024-05-09] MEDS: Famotidine 20 MG TABLET PO (20:26)
[2024-05-09] MEDS: Tamsulosin HCL 0.4 MG CAPSULE PO (20:26)
[2024-05-09 21:27] LABS: Glucose, Whole Blood 252 mg/dL (60-115)
[2024-05-09] MEDS: Zolpidem Tartrate 5 MG TABLET PO (21:40)
[2024-05-10] VITALS (7 sets, daily range): BP systolic 116–168; BP diastolic 59–88; PULSE 64–86; RESP 16–20; TEMP 36–36.6; O2SAT 94–98
[2024-05-10] MEDS: Omeprazole 40 MG CAPSULE.DR PO (05:34)
[2024-05-10 07:32] LABS: Glucose, Whole Blood 114 mg/dL (60-115)
[2024-05-10] MEDS: Cyanocobalamin (Vitamin B-12) 1,000 MCG TABLET 1000 MCG PO (08:51)
[2024-05-10] MEDS: Nystatin Powder 15 GM BOTTLE 1 APPL TOPICAL (08:51)
[2024-05-10] MEDS: Metoprolol Succinate ER 25 MG TAB.ER.24H 75 MG PO (08:51)
[2024-05-10] MEDS: Apixaban 2.5 MG TABLET PO ×2 (08:51→20:56)
[2024-05-10] MEDS: Cholecalciferol (Vitamin D3) 25 MCG TABLET PO (08:52)
[2024-05-10] MEDS: Pregabalin 100 MG CAPSULE PO ×2 (08:52→20:56)
[2024-05-10] MEDS: Folic Acid 1 MG TABLET PO (08:52)
[2024-05-10] MEDS: Ascorbic Acid 500 MG TABLET PO (08:52)
[2024-05-10] MEDS: Digoxin 0.125 MG TABLET PO (08:52)
[2024-05-10] MEDS: Furosemide 40 MG TABLET PO (08:52)
[2024-05-10] MEDS: Empagliflozin 10 MG TABLET PO (08:52)
[2024-05-10] MEDS: 0.9 % Sodium Chloride Flush 3 ML SYRINGE IVFLUSH ×3 (08:52→20:56)
[2024-05-10] MEDS: dexAMETHasone sod phosphate 4 MG/ML VIAL 6 MG IVPUSH (08:57)
[2024-05-10 11:25] LABS: Glucose, Whole Blood 193 mg/dL (60-115)
--- NOTE | 2024-05-10 12:29 | HO.PM.IMPN ---
Subjective Subjective Date of Service: 05/10/24 Interval History: Doing well, no sob, off O2 PT recommends STR but asking to go home Physical Exam Vital Signs: Vital Signs: Last Vital Signs Temp 97.6 F 05/10/24 11:12 Pulse 64 05/10/24 11:12 Resp 18 05/10/24 11:12 BP 130/74 05/10/24 11:12 Pulse Ox 95 05/10/24 11:12 O2 Del Method Nasal Cannula 05/10/24 11:12 O2 Flow Rate 2 05/10/24 11:12 BMI result Body Mass Index 25.7 General: AO X 3, no acute distress Resp: CTA bilateral CVS: S1,S2,RRR GI: +BS, NT, no distention Skin: No rash Neuro: motor grossly intact Psych: appropriate affect Objective Data Active Medications Acetaminophen (Acetaminophen 325 Mg Tablet) 975 mg PO Q6H PRN PRN Reason: Pain, Mild (Pain Scale 1-3), fever or headache Last Admin: 05/08/24 21:26 Dose: 975 mg Documented By: NOY Albuterol/Ipratropium (Albuterol/Iprat 2.5/0.5mg 3 Ml Ampul.Neb) 3 ml INHALE Q4H PRN PRN Reason: wheezing Last Admin: 05/07/24 15:23 Dose: 3 ml Documented By: ARIADNA Alprazolam (Alprazolam 0.25 Mg Tablet) 0.25 mg PO DAILY PRN PRN Reason: anxiety Last Admin: 05/09/24 12:38 Dose: 0.25 mg Documented By: GURPREET Apixaban (Apixaban 2.5 Mg Tablet) 2.5 mg PO BID [facility] Last Admin: 05/10/24 08:51 Dose: 2.5 mg Documented By: SAIRA Ascorbic Acid (Ascorbic Acid 500 Mg Tablet) 500 mg PO DAILY [facility] Last Admin: 05/10/24 08:52 Dose: 500 mg Documented By: SAIRA Atorvastatin Calcium (Atorvastatin Calcium 40 Mg Tablet) 40 mg PO BEDTIME [facility] Last Admin: 05/09/24 20:26 Dose: 40 mg Documented By: PAT Cyanocobalamin (Cyanocobalamin (Vitamin B-12) 1,000 Mcg Tablet) 1,000 mcg PO DAILY [facility] Last Admin: 05/10/24 08:51 Dose: 1,000 mcg Documented By: SAIRA Dexamethasone Sodium Phosphate (Dexamethasone Sod Phosphate 4 Mg/Ml Vial) 6 mg IVPUSH DAILY [facility] Last Admin: 05/10/24 08:57 Dose: 6 mg Documented By: SAIRA Digoxin (Digoxin 0.125 Mg Tablet) 0.125 mg PO MoWeFr@1000 [facility]; Protocol Last Admin: 05/10/24 08:52 Dose: 0.125 mg Documented By: SAIRA Empagliflozin (Empagliflozin 10 Mg Tablet) 10 mg PO DAILY [facility] Last Admin: 05/10/24 08:52 Dose: 10 mg Documented By: SAIRA Famotidine (Famotidine 20 Mg Tablet) 20 mg PO BEDTIME [facility] Last Admin: 05/09/24 20:26 Dose: 20 mg Documented By: PAT Folic Acid (Folic Acid 1 Mg Tablet) 1 mg PO DAILY [facility] Last Admin: 05/10/24 08:52 Dose: 1 mg Documented By: SAIRA Furosemide (Furosemide 40 Mg Tablet) 40 mg PO DAILY [facility]; Protocol Last Admin: 05/10/24 08:52 Dose: 40 mg Documented By: SAIRA Glucose (Glucose Gel 15 Gm Gel..Gram.) 15 gm PO Q15M PRN; Protocol PRN Reason: per Hypoglycemia Standing Ord. Hydromorphone HCl (Hydromorphone Hcl 0.5 Mg/0.5 Ml Syringe) 0.5 mg IVPUSH Q4H PRN; Protocol PRN Reason: Pain, Severe (Pain Scale 7-10) Last Admin: 05/08/24 00:13 Dose: 0.5 mg Documented By: SACHIN Dextrose (D10) 250 mls @ 750 mls/hr IV Q15M PRN; Protocol PRN Reason: per Hypoglycemia Standing Ord. Insulin Human Lispro (Insulin Lispro 100 Unit/Ml 3 Ml Vial) 0 unit SUBCUT QIDACHS [facility]; Protocol Last Admin: 05/10/24 08:53 Dose: Not Given Documented By: SAIRA Non-Admin Reason: No Insulin Coverage Meclizine HCl (Meclizine Hcl 12.5 Mg Tablet) 12.5 mg PO TID PRN PRN Reason: dizziness Metoprolol Succinate (Metoprolol Succinate Er 25 Mg Tab.Er.24h) 75 mg PO DAILY [facility]; Protocol Last Admin: 05/10/24 08:51 Dose: 75 mg Documented By: SAIRA Montelukast Sodium (Montelukast Sodium 10 Mg Tablet) 10 mg PO BEDTIME [facility] Last Admin: 05/09/24 20:25 Dose: 10 mg Documented By: PAT Nystatin (Nystatin Powder 15 Gm Bottle) 1 appl TOPICAL DAILY [facility]; Protocol Last Admin: 05/10/24 08:51 Dose: 1 appl Documented By: SAIRA Omeprazole (Omeprazole 40 Mg Capsule.Dr) 40 mg PO DAILY@0630 [facility] Last Admin: 05/10/24 05:34 Dose: 40 mg Documented By: PAT Ondansetron HCl (Ondansetron Hcl 4 Mg/2 Ml Vial) 4 mg IVPUSH Q6H PRN PRN Reason: Nausea and Vomiting Last Admin: 05/09/24 19:45 Dose: 4 mg Documented By: PAT Pregabalin (Pregabalin 100 Mg Capsule) 100 mg PO BID [facility] Last Admin: 05/10/24 08:52 Dose: 100 mg Documented By: SAIRA Sodium Chloride (0.9 % Sodium Chloride Flush 3 Ml Syringe) 3 ml IVFLUSH [facility] Last Admin: 05/10/24 08:52 Dose: 3 ml Documented By: SAIRA Tamsulosin HCl (Tamsulosin Hcl 0.4 Mg Capsule) 0.4 mg PO BEDTIME [facility] Last Admin: 05/09/24 20:26 Dose: 0.4 mg Documented By: PAT Vitamin D (Cholecalciferol (Vitamin D3) 25 Mcg Tablet) 25 mcg PO DAILY [facility] Last Admin: 05/10/24 08:52 Dose: 25 mcg Documented By: SAIRA Zolpidem Tartrate (Zolpidem Tartrate 5 Mg Tablet) 5 mg PO BEDTIME PRN PRN Reason: Insomnia Last Admin: 05/09/24 21:40 Dose: 5 mg Documented By: PAT Labs 05/08/24 12:32 05/08/24 12:32 Labs: Laboratory Results - last 24 hr 05/09/24 05/09/24 05/10/24 16:59 21:14 07:25 POC Glucose 205 H 252 H 114 05/10/24 11:12 POC Glucose 193 H Assessment and Plan (1) Hypoxia: Status: Acute (2) COVID: Status: Acute Plan 89-year-old female with a PMH significant for HFpEF, COPD not on home O2, paroxysmal AFib on Eliquis, [id number]-[id number] type 2 diabetes, CKD 3, anxiety, CAD, GERD, HLD, and ?dementia who presents to the ED lightheadedness, dizziness, and frequent falls at home. Pt will be admitted to the hospital for treatment and further evaluation of acute hypoxic respiratory failure in setting of acute COVID infection. Acute hypoxic respiratory d/t covid--hypoxia resolved. -continue Dexamethasone for 7 days Abdominal pain, pain resolved. Likely secondary to pacreatic mass biopsy at [facility] on 05/06 CT of abdomen/pelvis negative for acute abnormality Analgesics for pain management. Should follow up with [facility] for result Frequent falls at home Patient reports at least 3 falls before coming in Weakness and dizziness likely in the setting of COVID infection CT imaging of head, face, chest, cervical and thoracic spine, and abdomen/pelvis negative for acute abnormalities PT recommends STR but she wants to go home ?Dementia Pt noted to be repeating self during interview and exam Previously seen by psych on 08/06 who suggested assessing with MOCA Pt lives alone with little to no services OT consult for MOCA Sciatica Continue pregabalin Paroxysmal AFib Continue Eliquis, metoprolol, digoxin COPD Not in acute exacerbation Continue home inhalers HLD Continue statin Kmp-qpwjcnd-fohqkixna type 2 diabetes Continue Jardiance Diabetic diet, sliding scale insulin HFpEF Not in acute exacerbation Continue home Lasix, BB Full Code DVT Prophylaxis: On Eliquis Med rec pending Need for inpt: management of covid with acute hypoxic resp failure Quality Stroke Does the patient have a stroke diagnosis?: No VTE Prior VTE?: No VTE Risk Level:: Medical - moderate - high VTE Device Contraindication: Treatment Not Indicated VTE Drug Contraindication: N/A - Med Ordered
--- NOTE | 2024-05-10 14:20 | MHC.CM.PN ---
EMR reviewed and per MD rounds, pt is not medically cleared for discharge due to management of covid with acute hypoxic respiratory failure. This CM spoke with pts sister/HCP Lili today, and the pt and her wish for her to return home at discharge and decline STR at this time. Pts son from out of town is home and will be staying with the pt to help care for her.
--- NOTE | 2024-05-10 14:24 | MHC.CM.PN ---
EMR reviewed and per MD rounds, pt is medically cleared for discharge pending insurance authorization for STR at [facility].
[2024-05-10] MEDS: Insulin Lispro 100 UNIT/ML 3 ML VIAL SUBCUT ×3 (14:31→21:06)
[2024-05-10 16:44] LABS: Glucose, Whole Blood 274 mg/dL (60-115)
[2024-05-10] MEDS: Tamsulosin HCL 0.4 MG CAPSULE PO (20:56)
[2024-05-10] MEDS: Atorvastatin Calcium 40 MG TABLET PO (20:56)
[2024-05-10] MEDS: Montelukast Sodium 10 MG TABLET PO (20:56)
[2024-05-10] MEDS: Famotidine 20 MG TABLET PO (20:56)
[2024-05-10] MEDS: ondansetron HCL 4 MG/2 ML VIAL IVPUSH (20:56)
[2024-05-10 21:03] LABS: Glucose, Whole Blood 195 mg/dL (60-115)
[2024-05-10] MEDS: Zolpidem Tartrate 5 MG TABLET PO (23:17)
[2024-05-11 03:44] VITALS: BP 143/67; PULSE 57; RESP 16; TEMP 36.7; O2SAT 99
[2024-05-11] MEDS: Omeprazole 40 MG CAPSULE.DR PO (05:57)
[2024-05-11 08:00] VITALS: BP 141/78; PULSE 72; RESP 18; TEMP 36.4; O2SAT 96
[2024-05-11 08:11] LABS: Glucose, Whole Blood 140 mg/dL (60-115)
[2024-05-11] MEDS: Apixaban 2.5 MG TABLET PO (08:32)
[2024-05-11] MEDS: Furosemide 40 MG TABLET PO (08:32)
[2024-05-11] MEDS: Ascorbic Acid 500 MG TABLET PO (08:32)
[2024-05-11] MEDS: Pregabalin 100 MG CAPSULE PO (08:33)
[2024-05-11] MEDS: Folic Acid 1 MG TABLET PO (08:33)
[2024-05-11] MEDS: Cholecalciferol (Vitamin D3) 25 MCG TABLET PO (08:33)
[2024-05-11] MEDS: Metoprolol Succinate ER 25 MG TAB.ER.24H 75 MG PO (08:33)
[2024-05-11] MEDS: dexAMETHasone sod phosphate 4 MG/ML VIAL 6 MG IVPUSH (08:33)
[2024-05-11] MEDS: Empagliflozin 10 MG TABLET PO (08:33)
[2024-05-11] MEDS: Cyanocobalamin (Vitamin B-12) 1,000 MCG TABLET 1000 MCG PO (08:33)
[2024-05-11] MEDS: 0.9 % Sodium Chloride Flush 3 ML SYRINGE IVFLUSH (08:41)
[2024-05-11] MEDS: Nystatin Powder 15 GM BOTTLE 1 APPL TOPICAL (08:42)
[2024-05-11 11:00] VITALS: BP 141/78; PULSE 72; O2SAT 96
[2024-05-11 11:38] LABS: Glucose, Whole Blood 267 mg/dL (60-115)
[2024-05-11 11:54] VITALS: BP 119/65; PULSE 87; RESP 20; TEMP 36.3; O2SAT 95
--- NOTE | 2024-05-11 14:00 | P.DS_ITS ---
DS: Providers Provider Date of Service: 05/11/24 Date of admission: 05/06/24 22:56 Date of discharge: 05/11/24 Primary care physician: Solange Jacobs MD DS: Diagnosis Discharge Diagnosis (1) Hypoxia: Status: Resolved (2) COVID: Status: Acute DS: Summary Time Attestation Discharge Coordination Time (in mins): admission hpi Chief Complaint: N/V/dizziness Pt is an 89-year-old female with a PMH significant for HFpEF, COPD not on home O2, paroxysmal AFib on Eliquis, [id number]-sllpxdckv type 2 diabetes, CKD 3, anxiety, CAD, GERD, HLD, and ?dementia who presents to the ED lightheadedness, dizziness, and frequent falls at home. Patient reports she underwent pancreatic mass biopsy on 05/05/2024 at [facility] and has since then felt generally unwell with lightheadedness, dizziness, chest tightness/pressure, fatigue, and increased SOB and cough. Reports yesterday borrowed her sister's O2 but that offered very little relief. Patient reports has felt so lightheaded and fatigued that she has fallen 3 times at home since yesterday, including head strike and breaking her glasses. Patient overall is a poor and vague historian and is imprecise concerning details up for falls. Patient also repeatedly complains of bilateral sciatica and diffuse abdominal pain. In the ED pt was tachycardic up to 91, hypertensive up to 162/93, and hypoxic as low as 88% on RA. Labs were significant for testing positive for COVID and initial troponin 25.9 with repeat flat at 37.3 and 33.8. Otherwise grossly unremarkable and around baseline for patient. No leukocytosis. Stable H&H. No significant electrolyte abnormalities. Renal function baseline. Hepatic function baseline. UA negative for UTI. CT?of head negative for acute intracranial pathology. CT of face without acute fracture. CT of cervical spine negative for acute fracture or subluxation. CT of chest negative for acute traumatic findings, but with multiple incidental findings listed below, including cardiomegaly, atherosclerotic ulcers of thoracic aorta, aortic valve and coronary artery calcifications, and multiple pulmonary nodules. CT of abdomen and pelvis found no acute findings. EKG demonstrated AFib with RVR of 108 but no evidence of acute ST elevations or depressions. Pt was treated with morphine. Pt will be admitted to the hospital for treatment and further evaluation of acute hypoxic respiratory failure in setting of acute COVID infection. hospital course: The patient presented with nausea, vomiting ,dizzness and weak. She was found to be hypoxic and tested positive for covid. Covid with hypoxia which is underlying cause of her symptoms was treated with Oxygen, and IV dexamethasone and over the course of hospitalization, hypoxia has resolved and weaned off oxygen. She presently doing well and PT has cleared her to go home and in fact she doesn't want to go to rehab. She has completed 6 days of dexamethasone and given no more hypoxia and dexamethasone raising sugar level. Will stop dexamethasone at this time. Quality: Safe Use of Opioids Does Pt have an Active Cancer Diagnosis on the Problem List?: No Quality: Stroke Does the patient have a stroke diagnosis?: No Physical Exam Vital Signs: Vital Signs: Last Vital Signs Temp 97.4 F 05/11/24 11:54 Pulse 87 05/11/24 11:54 Resp 20 05/11/24 11:54 BP 119/65 05/11/24 11:54 Pulse Ox 95 05/11/24 11:54 O2 Del Method Room Air 05/11/24 11:54 O2 Flow Rate 2 05/11/24 08:00 BMI result Body Mass Index 25.7 DS: Data Data Completed and Pending Labs on day of discharge: Laboratory Results - last 24 hr 05/10/24 05/10/24 05/11/24 16:33 20:58 07:54 POC Glucose 274 H 195 H 140 H 05/11/24 11:27 POC Glucose 267 H Discharge Plan Discharge Anticipated Discharge Date/Time: 05/11/24 13:40 Patient Disposition: Home, Self-Care Discharge Diagnosis: Fall, hypoxia, covid 19 Referrals: Suzanne BUITRAGO [Outside] - 1 Week Po,Solange Giles MD [Primary Care Provider] - 1 Week Discharge Medications: Continued (DME) pediatric front wheel walker See Rx Instructions .Route .MEDSUPPLY Qty: 1 0RF Rx Instructions: As directed Eliquis 2.5 mg tablet 2.5 mg PO BID Qty: 180 3RF (DME) lancets [FreeStyle Lancets] 28 gauge misc See Rx Instructions .ROUTE .MEDSUPPLY Qty: 100 3RF Rx Instructions: use to test sugar once a day folic acid 1 mg tablet 1 mg PO DAILY Qty: 90 2RF (DME) blood-glucose meter [OneTouch Verio Flex Start] Kit See Rx Instructions .Route Rx Instructions: Test twice a day ascorbic acid (vitamin C) [Vitamin C] 500 mg tablet 500 mg PO DAILY Qty: 90 1RF tramadol 50 mg tablet 50 mg PO DAILY PRN (Reason: Pain) cyanocobalamin (vitamin B-12) [Vitamin B-12] 1,000 mcg Tablet 1,000 mcg PO DAILY diclofenac sodium [Arthritis Pain (diclofenac)] 1 % gel 4 g topical QID Rx Instructions: apply to single knee, ankle, foot; for foot includes sole/toes/top of foot albuterol sulfate 90 mcg/actuation Hfa Aerosol Inhaler 1 puff INHALATION QID montelukast [Singulair] 10 mg tablet 10 mg PO BEDTIME dexlansoprazole [Dexilant] 60 mg capsule,biphase delayed releas 60 mg PO DAILY@0630 atorvastatin [Lipitor] 40 mg tablet 40 mg PO BEDTIME alprazolam 0.25 mg tablet 0.25 mg PO DAILY PRN (Reason: anxiety) ondansetron 4 mg tablet,disintegrating 4 mg PO Q8H PRN (Reason: nausea and vomiting) Qty: 7 0RF furosemide 40 mg tablet 40 mg PO DAILY famotidine 20 mg tablet 20 mg PO BEDTIME digoxin 125 mcg (0.125 mg) tablet 125 mcg PO MOWEFR (DME) PEDIATRIC FRONT WHEELED WALKER See Rx Instructions .Route .MEDSUPPLY Qty: 1 0RF Rx Instructions: As directed cholecalciferol (vitamin D3) 25 mcg (1,000 unit) capsule 25 mcg PO DAILY Qty: 90 1RF nystatin 100,000 unit/gram powder 1 appl topical DAILY Qty: 15 0RF meclizine 12.5 mg tablet 12.5 mg PO TID PRN (Reason: dizziness) Qty: 14 0RF metoprolol succinate 50 mg tablet extended release 24 hr 75 mg PO DAILY zolpidem 5 mg tablet 5 mg PO BEDTIME PRN (Reason: insomnia) Qty: 90 0RF tamsulosin 0.4 mg capsule 0.4 mg PO BEDTIME Qty: 30 2RF pregabalin 100 mg capsule 100 mg PO Q12H 31 Days Qty: 62 2RF empagliflozin 10 mg tablet 10 mg PO DAILY Discharge Orders: Discharge Order (Routine); Ordered 05/11/24 Ordered By: Alton Borjas Diet: Diabetic diet Activity on Discharge: As tolerated Stand Alone Forms: Patient Portal Discharge page Print Language: Korean Care Plan Goals: Recovery from COVID, hypoxia and fall Health Concerns: COVID, hypoxia, fall Plan of Treatment: resume all your home medication as before you may use mask in public for 4 more days Assessment: Continue all other home medications Discharge Date/Time: 05/11/24 16:45
--- NOTE | 2024-05-11 14:03 | MHC.CM.PN ---
Second IMM 05/11. Pt is being medically cleared for discharge home with resumption of [facility] services. Pts son will transport her home today. This CM met with pt and her son present at bedside to discuss the discharge plan, and they are both in agreement with her returning home today as she has a great support system in place with a neighbor, sister, and nephews who check in on her daily.
[2024-05-11] MEDS: Insulin Lispro 100 UNIT/ML 3 ML VIAL SUBCUT ×2 (14:59→15:56)
[2024-05-11 15:34] LABS: Anion Gap 18 (12-20); Blood Urea Nitrogen 25 mg/dL (9-16); Calcium 9.8 mg/dL (8.4-10.2); Carbon Dioxide 25 mmol/L (22-29); Chloride 99 mmol/L (96-108); Creatinine Clr Calc Pharmacy 31.1; Estimated Glomerular Filt Rate 44; Glucose Random 303 mg/dL (60-115); Potassium 3.5 mmol/L (3.3-5.1); Sodium 138 mmol/L (135-145)
[2024-05-11 15:40] LABS: B Type Natriuretic Peptide 199 pg/mL (<100)
[2024-05-11 15:50] LABS: Glucose, Whole Blood 293 mg/dL (60-115)
[2024-05-11 16:15] LABS: Estimated Average Glucose 174 mg/dL; Hemoglobin A1c % 7.7 % (<6.0)
[2024-05-11 16:19] LABS: Estimated Average Glucose 171 mg/dL; Hemoglobin A1C 213.1957 umol/L; Hemoglobin A1c % 7.6 % (<6.0); Total Hemoglobin (HGBA1C) 3549.9228 umol/L
[2024-05-11 16:30] LABS: Adenovirus F 40/41 Not Detected (Not Detect.); Astrovirus Not Detected (Not Detect.); Campylobacter Not Detected (Not Detect.); Cryptosporidium Not Detected (Not Detect.); Cyclospora cayetanensis Not Detected (Not Detect.); E. coli EAEC Not Detected (Not Detect.); E. coli EPEC Detected (Not Detect.); E. coli ETEC Not Detected (Not Detect.); E. coli STEC Not Detected (Not Detect.); Entamoeba histolytica Not Detected (Not Detect.); Giardia lamblia Not Detected (Not Detect.); Norovirus GI/GII Not Detected (Not Detect.); Plesiomonas shigelloides Not Detected (Not Detect.); Rotavirus A Not Detected (Not Detect.); Salmonella Not Detected (Not Detect.); Sapovirus Not Detected (Not Detect.); Shigella sp./EIEC Not Detected (Not Detect.); Vibrio Not Detected (Not Detect.); Vibrio Cholerae Not Detected (Not Detect.); Yersinia enterocolitica Not Detected (Not Detect.)
--- OUTSIDE RECORDS SUMMARY | 2024-05-12 02:17 | XMS_ITS | Continuity of Care Document ---
Author Organization Count includes the [facility] Address [address] [address] Phone Care Team Providers Care Steam Trap Man Name Role Phone Anton Jean Baptiste DO Unavailable Unavailable Advance Directives Directive Yes / No Effective Date File Name No Information Encounters Encounter Description Practice Location Reason(s) For Visit Diagnoses Date Provider Providers Copied on Encounter Count includes the [facility], [address], [id number], [place] tel:[phone] [place] No Information 0 Markel Walton. [address] [place], [place], [id number] , [place]. tel:[phone] Family History Family Member Type Diagnosis Age At Onset No Information Payers Payer name Insurance type Covered libertarian ID Authoriza tion(s) No Information Social History Type Description Quantity Date Captured Comments Sex Female Smoking Status No Information Chief Complaint And Reason For Visit No Information Reason For Referral Reason For Referral No Information History Of Present Illness Encounter Date Complaint History Of Prese nt Illness No Information Functional Status Date Functional Assessmen t No Information Instructions Date Instruction Additional Infor mation No Information Assessments Type Assessment Date No Information Patient Care Teams Name Effective Dates (start - stop) Status Members No Information
== END 2024-05-11 16:45 | disposition home or self-care (01) | DRG 177 ==
LOC: HO.ED 16:06 → HO.EDOVER 23:02 → HO.IMC 05-07 19:20
PROVIDERS: Nurse Practitioner Family; Physician Assistant Medical; Admitting Provider Internal Medicine; Emergency Provider Student in an Organized Health Care Education/Training Program; PCP Internal Medicine; Visit Provider Internal Medicine
DX: U07.1 COVID-19 (principal); J96.01 Acute respiratory failure with hypoxia; I13.0 Hypertensive heart and chronic kidney disease with heart failure and stage 1 through stage 4 chronic kidney disease, or unspecified chronic kidney disease; N18.30 Chronic kidney disease, stage 3 unspecified; M54.30 Sciatica, unspecified side; K86.9 Disease of pancreas, unspecified; E11.22 Type 2 diabetes mellitus with diabetic chronic kidney disease; F03.90 Unspecified dementia, unspecified severity, without behavioral disturbance, psychotic disturbance, mood disturbance, and anxiety; I25.10 Atherosclerotic heart disease of native coronary artery without angina pectoris; E78.5 Hyperlipidemia, unspecified; Z87.891 Personal history of nicotine dependence; Z79.01 Long term (current) use of anticoagulants; Z79.899 Other long term (current) drug therapy
CPT/HCPCS: 0241U; 36415; 70450; 70486; 71260; 72125; 74177; 80048; 80053; 80162; 81001; 82550; 82947; 83036; 83735; 83880; 84484; 85025; 85027; 87507; 93005; 94640; 97112; 97116; 97162; 97166; 99285; J1100; J1171; J2060; J2270; J2405; Q9967

== ENCOUNTER → 2024-05-06 18:25 | Outpatient (BNV) | payer MEDICARE, OTHER, SELFPAY | PROVIDERS: Admitting Provider Internal Medicine; Emergency Provider Student in an Organized Health Care Education/Training Program; PCP Internal Medicine; Visit Provider Internal Medicine Cardiovascular Disease | DX: R06.02 Shortness of breath (principal); I48.91 Unspecified atrial fibrillation; R94.31 Abnormal electrocardiogram [ECG] [EKG] | CPT/HCPCS: 93010 ==

== ENCOUNTER → 2024-05-06 22:56 | Outpatient (BNV) | payer MEDICARE, OTHER, SELFPAY | PROVIDERS: Admitting Provider Internal Medicine; Emergency Provider Student in an Organized Health Care Education/Training Program; PCP Internal Medicine; Visit Provider Student in an Organized Health Care Education/Training Program | DX: J96.01 Acute respiratory failure with hypoxia (principal); U07.1 COVID-19 | CPT/HCPCS: 99223; 99232 ==

== ENCOUNTER 2024-05-21 11:26 | Outpatient (AMB) | payer MEDICARE, OTHER, SELFPAY ==
--- OUTSIDE RECORDS SUMMARY | 2024-05-21 11:28 | XMS_ITS | Continuity of Care Document ---
Author Organization [facility] Address [address] [address] Phone Care Team Providers Care Sales Route Driver Helper Name Role Phone Anton Jean Baptiste DO Unavailable Unavailable Advance Directives Directive Yes / No Effective Date File Name No Information Encounters Encounter Description Practice Location Reason(s) For Visit Diagnoses Date Provider Providers Copied on Encounter [facility], [address], [id number], [place] tel:[phone] [place] No Information 0 Markel Walton. [address] [place], [place], [id number] , [place]. tel:[phone] Family History Family Member Type Diagnosis Age [...]
--- NOTE | 2024-05-21 11:40 | A.OFFPC_ITS ---
Vital Signs 05/21/24 11:42 05/21/24 12:02 Height 5 ft 3 in Weight 145 lb BMI 25.7 BP 110/78 Blood Pressure Location Lt brachial Position Sitting Pulse 49 L 85 Pulse Source Pulse Oximeter Pulse Oximeter Pulse Oximetry (%) 95 97 Oxygen Delivery Method Room Air Intake Visit Reasons: TCM Hypoxia [facility] 05/11 Intake Note: Patient is here for hospital discharge follow up and TCM. Patient was discharged from [facility] on 05/11/24. 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 Required: No [employer] Produ[employer] Commission Agent: Present Accompanied by: Friend Allergies ciprofloxacin Allergy (Severe, Verified 05/21/24 11:42) unknown aspirin [Aspirin] Allergy (Unknown, Verified 05/21/24 11:42) UNKNOWN cefuroxime Allergy (Unknown, Verified 05/21/24 11:42) Unknown celecoxib [From Celebrex] Allergy (Unknown, Verified 05/21/24 11:42) UNKNOWN metformin Allergy (Unknown, Verified 05/21/24 11:42) diarrhea risedronate sodium [From Actonel] Allergy (Unknown, Verified 05/21/24 11:42) UNKNOWN Sulfa (Sulfonamide Antibiotics) Allergy (Unknown, Verified 05/21/24 11:42) unknown bupropion Adverse Reaction (Intermediate, Verified 05/21/24 11:42) tremor ferrous sulfate Adverse Reaction (Intermediate, Verified 05/21/24 11:42) tremors sertraline Adverse Reaction (Intermediate, Verified 05/21/24 11:42) tremors Tobacco use date assessed: 05/21/24 Fall risk assessment: No Falls in past year Last assessed Fall Risk: 05/21/24 Dental Screening Dental Screen Date: 09/18/23 HPI TCM Hypoxia [facility] 05/11 HPI Details 89-year-old female with past medical his tory of hypertension, hypercholesterolemia, GERD, diabetes mellitus with generalized started disorder, coronary artery disease, history of TIA, atrial fibrillation, congestive heart failure last seen by Dr. Jacobs April 2024 coming in for hospital discharge follow up.?In review of the notes, patient was seen in [facility] ED 05/06/2024 for increasing shortness of breath and cough in the ER patient was tachycardic and hypertensive and tested positive for COVID-19. CT of the, face, chest and cervical spine.?Incidentally chest CT showed arthrosclerosis ulcers of the thoracic aorta, aortic valve and coronary artery calcifications and multiple pulmonary nodules.?Patient was admitted for acute hypoxic respiratory failure in the setting of COVID-19 patient was treated with oxygen IV dexamethasone hypoxia resolved and eventually weaned off oxygen. Patient was cleared by Physical therapy and was discharged home 05/11/2024. Patient states since discharge her breathing has been much better. She does continue to use her albuterol more often than usual. Previous to her COVID-19 infection she was using her albuterol inhaler maybe 3-4 times per week. She states this week she did use her inhaler about 10-15 times for symptom management which is not typical for her. She is no longer on oxygen and has fin ished the oral steroid. She was told by the balance sheet analyst to increase her Lasix if she was gaining weight and she did have 2 increase her Lasix 1 day last week. Denies shortness of breath, chest pain, orthopnea or leg swelling. TCM TCM Information Date of Discharge 05/11/24 Discharged From [facility] Interactive Contact Date (Reference documentation from this date) 05/12/24 [facility] Medical History Weakness Dizziness and giddiness Weakness Yeast infection of the skin Exercise hypoxemia Acute respiratory failure with hypoxia Lipoma of lower back Urinary incontinence Cystitis Acute urinary retention Acute diverticulitis of intestine Generalized abdominal pain Diverticular disease Nausea & vomiting Failure to thrive in adult TSH elevation CHF (congestive heart failure) Atrial fibrillation with RVR Atrial fibrillation with RVR Type 2 diabetes mellitus with hyperglycemia Diabetes mellitus Asthma Hypokalemia Hypomagnesemia Diarrhea Hearing difficulty Dyspnea on exertion History of gastrointestinal diverticular hemorrhage COVID-19 virus infection Rectal bleeding Medicare annual wellness visit, initial Hip pain, left Patellar sleeve fracture of right knee Knee pain, right Nausea and vomiting Coarse tremors Shoulder pain, right Hospital discharge follow-up Mass on back Constipation Tinea corporis Nausea Right wrist pain Left knee pain Left hip pain Toe pain, left Breast cancer screening by mammogram UTI (urinary tract infection) Obesity (BMI 30-39.9) Urinary frequency Toe fracture, left Pancreatic cyst Osteoporosis Peptic ulcer disease Urinary incontinence Rectal incontinence GERD (gastroesophageal reflux disease) Bile salt-induced diarrhea Vaginal prolapse Renal artery stenosis Asthma Lumbar degenerative disc disease Insomnia TIA (transient ischemic attack) Hyperlipidemia, unspecified Essential hypertension Surgical History Hx of colonoscopy History of esophagogastroduodenoscopy (EGD) History of removal of cyst (~10/17/21) History of hemorrhoidectomy History of colectomy History of section History of hysterectomy History of appendectomy History of cholecystectomy Family History Father Cancer Arterial thrombosis Mother Multiple sclerosis Muscular dystrophy Hypertension Depression Chronic mental illness Mental health disorder Brother No problems noted. Brother Gangrene Sister No problems noted. Son No problems noted. Son No problems noted. Son No problems noted. Son No problems noted. Daughter No problems noted. Daughter No problems noted. Daughter No problems noted. Social History Household Members: None Housing: Apartment Do you presently have visiting nurse or other home services: Yes Alcohol intake: former Comment: 1:1 sitter Patient Tobacco Use Status: Former Tobacco user Tobacco use type: Cigarette Years Smoked: 22 e-Cigarette/Vaping Use: Former Use Second Hand Smoke Exposure: No Advance Directives Date on File: 08/06/23 service: No Current occupational status: disabled Current occupational exposures/hazards: No Cognitive needs: Yes (walker) Hearing needs: Yes Vision needs: Yes (Glasses) Questionnaire Thrive Questionnaire Date Thrive assessed: 05/07/24 MERY-7 AMB Questionnaire MERY-7 Date MERY - 7 assessed: 09/18/23 Source: Developed by Drs. Brandon Villeda, Vijaya Damon, Jaydon Easley and colleagues, with an educational phi from [employer]. Review of Systems Const Denies body aches, Denies chills, Denies fever(s), Denies headache(s) and Denies poor appetite Eyes Reports no additional complaints ENT Reports dizziness (When going from lying flat to sitting) and Denies headache(s) Card Denies chest pain, Denies syncope, Denies edema, Denies irregular heart rhythm, Denies lightheadedness and Denies dyspnea Resp Denies cough and Denies dyspnea GI Denies abdominal pain, Denies constipation, Denies diarrhea, Denies nausea and Denies vomiting Reports no additional complaints Musc Reports no additional complaints and Denies abnormal gait Skin/Breast Reports system reviewed and no additional complaints, except as documented Neuro Denies abnormal gait, Reports dizziness (When going from lying flat to sitting), Denies syncope and Denies headache(s) Psych Reports no additional complaints Physical exam (Primary Care) Vital Signs: Last Vital Signs Pulse 49 L 05/21/24 11:42 BP 110/78 05/21/24 11:42 Pulse Ox 95 05/21/24 11:42 Oxygen Delivery Method Room Air 05/21/24 11:42 BMI result Body Mass Index 25.7 Tobacco/Smoking Status: Tobacco use Status Tobacco use date assessed 05/21/24 05/21/24 11:51 Patient Tobacco Use Status Former Tobacco user 05/21/24 11:51 Tobacco use type Cigarette 05/21/24 11:51 e-Cigarette/Vaping Use Former Use 05/21/24 11:51 Thrive Assessment: Date of Thrive Assessment Date Thrive assessed 05/07/24 05/21/24 11:51 Const General: cooperative, healthy appearing, comfortable and no acute distress Orientation/consciousness: patient oriented x3 HENMT Head: Yes normocephalic Ears: hearing grossly normal bilaterally General nose exam: Normal external nose present Eyes General: appearance normal, both eyes and all related structures Conjunctivae: conjunctivae normal Neck Neck: Yes full ROM and Yes no lymphadenopathy Resp Effort & Inspection: normal respiratory effort Auscultation: clear to auscultation bilaterally, crackles (Very mild) on the left in the lower lung bridges, no rales, no rhonchi and no wheezes Cardio Rate: regular rate Rhythm: regular rhythm Skin General skin exam: no rashes or lesions noted Neuro General: patient oriented x3 Gait exam (Neuro): Normal gait present Extrem General: Yes normal to inspection, Yes full ROM and No edema Psych Affect: normal affect Attitude: cooperative Insight: Good insight present (Psych) Judgement: Good judgement present (Psych) Coding Level of Care Code TCM Mod MDM <= 14 Days Complex EM visit Add On G2211 Diagnoses COVID U07.1 Gastroesophageal reflux disease without esophagitis K21.9 Esophagitis presence: without esophagitis Diabetic neuropathy E11.40 Essential hypertension I10 Asthma J45.909 Assessment & Plan Assessment & Plan (1) COVID: Code(s): U07.1 - COVID-19 Category: Medical Plan: Symptoms seem to have resolved at this time. She does continue to have occasional shortness of breath and has been using her albuterol inhaler more frequent. Previously she was using the albuterol inhaler only as needed. Discussed with patient if she continues to use the albuterol inhaler multiple times per week we will need to add additional inhaler. She feels her breathing has been improving over the last several days and would like to wait to add another inhaler. Reviewed red flag symptoms and when to present for re- evaluation (2) GERD (gastroesophageal reflux disease): Code(s): K21.9 - Gastro-esophageal reflux disease without esophagitis Category: Medical Qualifiers: Esophagitis presence: without esophagitis Qualified Code(s): K21.9 - Gastro-esophageal reflux disease without esophagitis Plan: Avoid trigger foods such as citrus, tomato products, soda, caffeine, spicy foods and other foods that may be irritating to your stomach. Avoid laying flat 3-4 hours after eating and elevate the head of the bed 30 degrees to prevent acid from moving into the esophagus. (3) Diabetic neuropathy: Code(s): E11.40 - Type 2 diabetes mellitus with diabetic neuropathy, unspecified Category: Medical Plan: Patient tells us today she continues to have occasional neuropathy in bilateral legs. Advised to continue on current medication and refilled diclofenac gel. (4) Essential hypertension: Code(s): I10 - Essential (primary) hypertension Category: Medical Plan: Continue on current blood pressure medication. Avoid salt intake and encourage healthy diet and regular exercise. (5) Asthma: Code(s): J45.909 - Unspecified asthma, uncomplicated Category: Medical Plan: Asthma currently controlled on present medications. Continue on albuterol as needed. Avoid triggers such as allergies. Discussed with patient that if she continues to use albuterol excessively we will need to add another inhaler to the regimen. Patient understands and we will follow up next month or sooner if her breathing worsens. Plan This note was constructed using voice recognition software. While every effort has been made to ensure accuracy and air defense control officer, still areas may have been included sometimes these areas may affect the content or meeting of the given symptoms. Total time spent caring for the patient today was 30 minutes. This includes time spent before the visit reviewing the chart, time spent during the visit, and time spent after the visit and documentation.
[2024-05-21 11:42] VITALS: BP 110/78; PULSE 49; O2SAT 95; BMI 25.7
[2024-05-21 12:02] VITALS: PULSE 85; O2SAT 97
== END 2024-05-21 12:59 | disposition home or self-care (01) ==
PROVIDERS: PCP Internal Medicine
DX: U07.1 COVID-19 (principal); K21.9 Gastro-esophageal reflux disease without esophagitis; E11.40 Type 2 diabetes mellitus with diabetic neuropathy, unspecified; I10 Essential (primary) hypertension; J45.909 Unspecified asthma, uncomplicated

== ENCOUNTER → 2024-05-21 11:26 | Outpatient (BNVA) | payer MEDICARE, OTHER, SELFPAY | PROVIDERS: PCP Internal Medicine | DX: I11.0 Hypertensive heart disease with heart failure (principal); I50.9 Heart failure, unspecified; E11.40 Type 2 diabetes mellitus with diabetic neuropathy, unspecified; J45.909 Unspecified asthma, uncomplicated; E78.00 Pure hypercholesterolemia, unspecified; K21.9 Gastro-esophageal reflux disease without esophagitis; E11.9 Type 2 diabetes mellitus without complications; I25.10 Atherosclerotic heart disease of native coronary artery without angina pectoris; U07.1 COVID-19; Z86.73 Personal history of transient ischemic attack (TIA), and cerebral infarction without residual deficits | CPT/HCPCS: 99495 ==

== ENCOUNTER 2024-06-22 07:59 | Emergency (ER) | payer MEDICARE, OTHER, SELFPAY ==
--- NOTE | ~2024-06-22 | XR_ITS ---
EXAMINATION: XR CHEST CLINICAL INFORMATION: sob COMPARISON: 02/15/2024. CT chest 05/06/2024. TECHNIQUE: 2 views of the chest were obtained. FINDINGS: The cardiac silhouette is mildly prominent but may be magnified by the AP technique. Aorta is mildly calcified but normal in contour. Mildly prominent right pulmonary artery in the right hilum, unchanged from prior exams. The lungs are clear bilaterally. There is no pneumothorax or pleural effusion. There is no focal osseous or soft tissue abnormality. There is osteopenia, mild dextroconvex scoliosis, and degenerative changes of the spine. XR/XR chest 2V IMPRESSION: No active pulmonary disease. Electronically signed by: Leandro Moss MD 06/22/2024 11:17 AM SH[facility]
[2024-06-22 08:16] VITALS: BP 153/76; PULSE 74; RESP 18; TEMP 36.7; O2SAT 97; BMI 26.6
--- NOTE | 2024-06-22 08:27 | ECG_ITS ---
Test Reason : sob,dizziness Blood Pressure : */* mmHG Vent. Rate : 87 BPM Atrial Rate : * BPM P-R Int : * ms QRS Dur : 88 ms QT Int : 392 ms P-R-T Axes : * -32 14 degrees QTcB Int : 471 ms Atrial fibrillation Left axis deviation Septal infarct (cited on or before 16-Jan-2024) Abnormal ECG When compared with ECG of 06-May-2024 18:25, No significant change was found Referred By: Jumana Carvajal Electronically Signed By: GEORGE SCHMITT MD
--- NOTE | 2024-06-22 08:40 | PC.NURSE ---
Pt hard stick, multiple attempts at labs, unable to obtain Pt/INR. EILEEN Denney made aware, okay with no pt/inr at this time. Call otto within reach, all needs met at this time.
--- NOTE | 2024-06-22 08:43 | ED.GENADULT ---
HPI - General Adult General Chief complaint: General Medical Stated complaint: BLEEDING FROM GENITAL AREA AFTER BR USE,+THINNERS Time Seen by Provider: 06/22/24 08:10 Source: patient, EMS, RN notes reviewed and old records reviewed Mode of arrival: EMS History of Present Illness ED Provider: Jumana Carvajal PA-C HPI narrative: 89-year-old female with a past medical history CHF, AFib on Eliquis, diabetes, asthma, TIA, HLD, HTN, presenting to the ED via EMS complaining of bright red rectal bleeding noted on toilet paper when wiping yesterday, lightheadedness /dizziness, & generalized fatigue/ weakness. Also reports mild lower abdominal pain. Denies bleeding, dizziness, or abdominal pain at present. also reports SOB last night. Denies chest pain, fever/chills, cough, nausea / vomiting, dysuria/ hematuria, vaginal bleeding. Related Data Home Medications ?Medication ?Instructions ?Recorded ?Confirmed cyanocobalamin (vitamin B-12) 1,000 mcg PO DAILY 08/06/23 05/12/24 1,000 mcg tablet (Vitamin B-12) tramadol 50 mg tablet 50 mg PO DAILY PRN Pain 08/06/23 05/12/24 blood-glucose meter (OneTouch 01/07/24 05/12/24 Verio Flex Start kit) albuterol sulfate 90 mcg/actuation 1 puff inhalation QID 01/10/24 05/12/24 aerosol inhaler atorvastatin 40 mg tablet (Lipitor) 40 mg PO BEDTIME 01/10/24 05/12/24 dexlansoprazole 60 mg 60 mg PO DAILY@0630 01/10/24 05/12/24 capsule,biphase delayed release (Dexilant) montelukast 10 mg tablet 10 mg PO BEDTIME 01/10/24 05/12/24 (Singulair) alprazolam 0.25 mg tablet 0.25 mg PO DAILY PRN anxiety 02/15/24 05/12/24 empagliflozin 10 mg tablet 10 mg PO DAILY 03/18/24 05/12/24 metoprolol succinate 50 mg 75 mg PO DAILY 04/27/24 05/12/24 tablet,extended release 24 hr digoxin 125 mcg (0.125 mg) tablet 125 mcg PO MOWEFR 05/07/24 05/12/24 famotidine 20 mg tablet 20 mg PO BEDTIME 05/07/24 05/12/24 furosemide 40 mg tablet 40 mg PO DAILY 05/07/24 05/12/24 Previous Rx's ?Medication ?Instructions ?Recorded pediatric front wheel walker #1 ea 09/02/23 PEDIATRIC FRONT WHEELED WALKER #1 ea 09/18/23 apixaban 2.5 mg tablet (Eliquis) 2.5 mg PO BID #180 tabs 09/22/23 lancets 28 gauge (FreeStyle #100 ea 11/17/23 Lancets) folic acid 1 mg tablet 1 mg PO DAILY #90 tabs 01/02/24 ascorbic acid (vitamin C) 500 mg 500 mg PO DAILY #90 tabs 01/09/24 tablet (Vitamin C) cholecalciferol (vitamin D3) 25 25 mcg PO DAILY #90 caps 02/04/24 mcg (1,000 unit) capsule ondansetron 4 mg disintegrating 4 mg PO Q8H PRN nausea and 03/20/24 tablet vomiting #7 tabs meclizine 12.5 mg tablet 12.5 mg PO TID PRN dizziness #14 04/07/24 tabs nystatin 100,000 unit/gram topical 1 appl topical DAILY #15 grams 04/07/24 powder zolpidem 5 mg tablet 5 mg PO BEDTIME PRN insomnia #90 04/27/24 tabs tamsulosin 0.4 mg capsule 0.4 mg PO BEDTIME #30 caps 05/27/24 diclofenac sodium 1 % topical gel 4 g topical QID Pain #100 grams 06/13/24 (Arthritis Pain (diclofenac)) pregabalin 100 mg capsule 100 mg PO Q12H 31 days #62 caps 06/21/24 hydrocortisone 2.5 % topical cream 1 appl RI BID PRN hemorrhoids #30 06/22/24 with perineal applicator grams Allergies Allergy/AdvReac Type Severity Reaction Status Date / Time ciprofloxacin Allergy Severe unknown Verified 06/22/24 08:20 aspirin [Aspirin] Allergy Unknown UNKNOWN Verified 06/22/24 08:20 cefuroxime Allergy Unknown Unknown Verified 06/22/24 08:20 celecoxib [From Celebrex] Allergy Unknown UNKNOWN Verified 06/22/24 08:20 metformin Allergy Unknown diarrhea Verified 06/22/24 08:20 risedronate sodium Allergy Unknown UNKNOWN Verified 06/22/24 08:20 [From Actonel] Sulfa (Sulfonamide Allergy Unknown unknown Verified 06/22/24 08:20 Antibiotics) bupropion AdvReac Intermediate tremor Verified 06/22/24 08:20 ferrous sulfate AdvReac Intermediate tremors Verified 06/22/24 08:20 sertraline AdvReac Intermediate tremors Verified 06/22/24 08:20 Review of Systems Review of Systems: Yes all other systems are reviewed and are negative Constitutional: Constitutional: Reports as per HPI Neurologic: Denies Abnormal speech present [facility] Past Medical History Attestation statement: The following information was validated with the patient. Source: old records reviewed Medical History Weakness Dizziness and giddiness Weakness Yeast infection of the skin Exercise hypoxemia Acute respiratory failure with hypoxia Lipoma of lower back Urinary incontinence Cystitis Acute urinary retention Acute diverticulitis of intestine Generalized abdominal pain Diverticular disease Nausea & vomiting Failure to thrive in adult TSH elevation CHF (congestive heart failure) Atrial fibrillation with RVR Atrial fibrillation with RVR Type 2 diabetes mellitus with hyperglycemia Diabetes mellitus Asthma Hypokalemia Hypomagnesemia Diarrhea Hearing difficulty Dyspnea on exertion History of gastrointestinal diverticular hemorrhage COVID-19 virus infection Rectal bleeding Medicare annual wellness visit, initial Hip pain, left Patellar sleeve fracture of right knee Knee pain, right Nausea and vomiting Coarse tremors Shoulder pain, right Hospital discharge follow-up Mass on back Constipation Tinea corporis Nausea Right wrist pain Left knee pain Left hip pain Toe pain, left Breast cancer screening by mammogram UTI (urinary tract infection) Obesity (BMI 30-39.9) Urinary frequency Toe fracture, left Pancreatic cyst Osteoporosis Peptic ulcer disease Urinary incontinence Rectal incontinence GERD (gastroesophageal reflux disease) Bile salt-induced diarrhea Vaginal prolapse Renal artery stenosis Asthma Lumbar degenerative disc disease Insomnia TIA (transient ischemic attack) Hyperlipidemia, unspecified Essential hypertension Surgical History Hx of colonoscopy History of esophagogastroduodenoscopy (EGD) History of removal of cyst (~10/17/21) History of hemorrhoidectomy History of colectomy History of section History of hysterectomy History of appendectomy History of cholecystectomy Family History Family History Father Cancer Arterial thrombosis Mother Multiple sclerosis Muscular dystrophy Hypertension Depression Chronic mental illness Mental health disorder Brother No problems noted. Brother Gangrene Sister No problems noted. Son No problems noted. Son No problems noted. Son No problems noted. Son No problems noted. Daughter No problems noted. Daughter No problems noted. Daughter No problems noted. Social History Social History Household Members: None Housing: Apartment Do you presently have visiting nurse or other home services: Yes Alcohol intake: former Comment: 1:1 sitter Patient Tobacco Use Status: Former Tobacco user Tobacco use type: Cigarette Years Smoked: 22 Smoked in Last 30 Days: No e-Cigarette/Vaping Use: Former Use Second Hand Smoke Exposure: No Use of substances other than those prescribed or required for medical reasons: No Advance Directives: Yes Advance Directives on File: Yes Advance Directives Date on File: 08/06/23 Do you have a plan to hurt others: No Plan service: No Current occupational status: disabled Current occupational exposures/hazards: No Cognitive needs: Yes (walker) Hearing needs: Yes Vision needs: Yes (Glasses) Physical Exam ED Vital Signs: Vital Signs - 24 hr 06/22/24 08:16 06/22/24 09:58 06/22/24 10:01 Temperature 98.0 F Pulse Rate 74 82 84 Respiratory Rate 18 Blood Pressure 153/76 H 161/81 H 164/87 H Pulse Oximetry 97 Oxygen Delivery Method Room Air 06/22/24 10:04 06/22/24 12:21 Temperature Pulse Rate 93 93 Respiratory Rate 16 Blood Pressure 175/90 H 146/71 H Pulse Oximetry 92 Oxygen Delivery Method Room Air BMI result Body Mass Index 26.6 Const General: cooperative, healthy appearing and no acute distress Orientation/consciousness: patient oriented x3 Limitations: no limitations HENMT Head: Yes normal to inspection and Yes atraumatic Ears: hearing grossly normal bilaterally General nose exam: Normal external nose present Face and sinus: Yes normal facial exam Eyes General: appearance normal, both eyes and all related structures EOM: EOMs intact bilaterally Neck Neck: Yes normal visual inspection and Yes no meningeal signs Resp Effort & Inspection: normal respiratory effort and no respiratory distress Auscultation: clear to auscultation bilaterally, no crackles and no wheezes Cardio Rate: regular rate Heart sounds: S1 normal heart sound present and S2 normal heart sound present GI Inspection: Yes normal to inspection Palpation (GI): Soft to palpation, nontender, no guarding and not rigid Rectal Exam - Female: External hemorrhoid(s) present (without active bleeding or thrombosis.) and No Anal fissure(s) present General: Yes no CVA tenderness Back/Spine/Pelvis Back: no CVA tenderness Skin Rashes: no rashes Wounds: no wounds Neuro General: patient oriented x3, gait normal, tone normal, moves all extremities, no meningeal signs, no focal motor deficits and CN's II-XI intact bilaterally Cranial nerves: Yes CN's II-XII intact bilaterally Cognition (Neuro): normal cognition Speech: No Abnormal speech present Gait exam (Neuro): Normal gait present Motor exam (neuro): 5/5 motor strength present throughout Extrem Other: 1+ bilateral LE pitting edema General: Yes normal to inspection Course Course Course Narrative: -1006-- no leukocytosis. H/H stable. Labs otherwise reassuring. Initial troponin 7.7 will obtain 3 hour repeat - occult stool negative -1036-- BNP 639, acute on chronically elevated > will give patient additional dose of p.o. Lasix in the ED - viral studies negative. Orthostatic vital signs negative >1410-- Troponin x2 negative, OH unlikely > Patient ambulating in the ED with steady gait without assistance. Results discussed with patient including worrisome signs and symptoms and strict return precautions, and when to return to the emergency department. They verbalized understanding and feel safe for discharge at this time. Medications Administered Discontinued Medications Generic Name Dose Route Start Last Admin Trade Name Freq PRN Reason Stop Dose Admin Furosemide 40 mg 06/22/24 10:37 06/22/24 10:53 Furosemide 40 Mg Tablet PO 06/22/24 10:38 40 mg ONCE ONE Administration Protocol Medical Decision Making Medical Decision Making [facility] Narrative: 89-year-old female with a past medical history CHF, AFib on Eliquis, diabetes, asthma, TIA, HLD, HTN, presenting to the ED via EMS complaining of bright red rectal bleeding noted on toilet paper when wiping yesterday, lightheadedness /dizziness, & generalized fatigue/ weakness. Also reports SOB last night. on exam vital signs stable, NAD, nontoxic appearing, no focal neuro deficits. Lungs CTA. 1+ bilateral LE pitting edema noted. External hemorrhoids appreciated without active bleeding or thrombosis. Concern for hemorrhoidal bleeding vs ? GI bleed vs anemia vs metabolic abnormalities. Concern for CHF vs atypical ACS. Rule out viral illness/infectious etiology. Low suspicion for severe sepsis. Unlikely dissection or intra-abdominal pathology including appendicitis /diverticulitis. Plan: EKG, labs, UA, CXR, viral studies, occult stool, orthostatics, re-evaluate Please refer to course for remaining clinical decision making, interpretation of labs/imaging results, and discussions with consultants and/or family members. Differential Diagnosis Differential Diagnoses: The differential diagnosis associated with the presentation includes As above Admission/Observation Consideration of admission/observation: Escalation of care including admission/observation considered Lab Data MDM Lab Attestation statement: I reviewed the patient's lab results. 06/22/24 09:56 06/22/24 09:20 Labs: Lab Results 06/22/24 06/22/24 06/22/24 Range/Units 09:20 09:47 09:56 WBC 10.6 (4.8-10.8) X10*3/uL RBC 5.73 H (4.20-5.50) X10*6/uL Hgb 14.3 (12.0-16.0) g/dl Hct 47.2 H (37.0-47.0) % MCV 82.4 (80.0-98.0) fL MCH 25.0 L (27.0-33.0) pg MCHC 30.3 L (31.0-35.0) g/dl RDW 19.7 H (11.0-16.0) % Plt Count 266 (160-400) X10*3/uL MPV 10.4 (9.4-12.3) fL Immature Gran % (Auto) 0.3 (0.0-0.4) % Neut % (Auto) 69.8 (45-73) % Lymph % (Auto) 17.8 L (20-40) % [place] % (Auto) 10.5 (2-11) % Eos % (Auto) 1.1 (0-4) % Baso % (Auto) 0.5 (0-2) % Lymph # (Auto) 1.9 (1.2-4.9) X10*3/uL [place] # (Auto) 1.1 (0.1-1.2) X10*3/uL Eos # (Auto) 0.1 (0.0-0.4) X10*3/uL Baso # (Auto) 0.1 (0.0-0.2) X10*3/uL Abs Immat Gran (auto) 0.03 (0.00-0.03) X10*3/uL Absolute Neuts (auto) 7.4 (2.0-8.3) x10*3/uL Absolute Nucleated RBC 0.000 (0.0-0.012) X10*3/uL Nucleated RBC % (auto) 0.0 (0.0-0.2) /100WBC PT (10.9-12.4) SEC INR (0.9-1.1) Sodium 144 (135-145) mmol/L Potassium 3.4 (3.3-5.1) mmol/L Chloride 109 H (96-108) mmol/L Carbon Dioxide 24 (22-29) mmol/L Anion Gap 14 (12-20) BUN 14 (9-16) mg/dL Creatinine 0.95 (0.5-1.4) mg/dL Estim Creat Clear Calc 38.6 Estimated GFR 56 Random Glucose 216 H (60-115) mg/dL Calcium 9.5 (8.4-10.2) mg/dL Magnesium 1.9 (1.6-2.6) mg/dL Total Bilirubin 0.9 (0.0-1.0) mg/dL Direct Bilirubin 0.3 (0.0-0.5) mg/dL AST 22 (5-31) U/L ALT 11 (0-31) U/L Alkaline Phosphatase 126 H (39-117) U/L Troponin I High Sens 7.7 D (<3.5-17.0) ng/L B-Natriuretic Peptide 639 H (<100) pg/mL Total Protein 7.4 (6.5-8.0) g/dL Albumin 3.9 (3.5-5.0) g/dL Lipase 17 (8-78) U/L Urine Color Yellow Urine Appearance Clear Urine pH 7.5 (5.0-9.0) Ur Specific Dyer <= 1.005 (1.005-1.025) Urine Protein Negative (Neg-Trace) mg/dL Urine Glucose (UA) >=1000 H (Negative) mg/dL Urine Ketones Negative (Negative) mg/dL Urine Blood Negative (Negative) Urine Nitrite Negative (Negative) Ur Leukocyte Esterase Negative (Negative) Urine RBC 0-2 (0-2) /HPF Urine WBC 0-5 (0-5) /HPF Ur Squamous Epith Cells 0-2 (0-2) /HPF Urine Bacteria None Seen (None Seen) Hyaline Casts 0-2 (0-2) /LPF Stool Occult Blood NEGATIVE (NEGATIVE) Influenza Type A (PCR) NEGATIVE (Negative) Influenza Type B (PCR) NEGATIVE (Negative) RSV RNA Qual (PCR) NEGATIVE (Negative) SARS-CoV-2 RNA (RT-PCR) NEGATIVE (Negative) 06/22/24 Range/Units 13:08 WBC (4.8-10.8) X10*3/uL RBC (4.20-5.50) X10*6/uL Hgb (12.0-16.0) g/dl Hct (37.0-47.0) % MCV (80.0-98.0) fL MCH (27.0-33.0) pg MCHC (31.0-35.0) g/dl RDW (11.0-16.0) % Plt Count (160-400) X10*3/uL MPV (9.4-12.3) fL Immature Gran % (Auto) (0.0-0.4) % Neut % (Auto) (45-73) % Lymph % (Auto) (20-40) % [place] % (Auto) (2-11) % Eos % (Auto) (0-4) % Baso % (Auto) (0-2) % Lymph # (Auto) (1.2-4.9) X10*3/uL [place] # (Auto) (0.1-1.2) X10*3/uL Eos # (Auto) (0.0-0.4) X10*3/uL Baso # (Auto) (0.0-0.2) X10*3/uL Abs Immat Gran (auto) (0.00-0.03) X10*3/uL Absolute Neuts (auto) (2.0-8.3) x10*3/uL Absolute Nucleated RBC (0.0-0.012) X10*3/uL Nucleated RBC % (auto) (0.0-0.2) /100WBC PT 16.2 H (10.9-12.4) SEC INR 1.4 H (0.9-1.1) Sodium (135-145) mmol/L Potassium (3.3-5.1) mmol/L Chloride (96-108) mmol/L Carbon Dioxide (22-29) mmol/L Anion Gap (12-20) BUN (9-16) mg/dL Creatinine (0.5-1.4) mg/dL Estim Creat Clear Calc Estimated GFR Random Glucose (60-115) mg/dL Calcium (8.4-10.2) mg/dL Magnesium (1.6-2.6) mg/dL Total Bilirubin (0.0-1.0) mg/dL Direct Bilirubin (0.0-0.5) mg/dL AST (5-31) U/L ALT (0-31) U/L Alkaline Phosphatase (39-117) U/L Troponin I High Sens 8.9 (<3.5-17.0) ng/L B-Natriuretic Peptide (<100) pg/mL Total Protein (6.5-8.0) g/dL Albumin (3.5-5.0) g/dL Lipase (8-78) U/L Urine Color Urine Appearance Urine pH (5.0-9.0) Ur Specific Dyer (1.005-1.025) Urine Protein (Neg-Trace) mg/dL Urine Glucose (UA) (Negative) mg/dL Urine Ketones (Negative) mg/dL Urine Blood (Negative) Urine Nitrite (Negative) Ur Leukocyte Esterase (Negative) Urine RBC (0-2) /HPF Urine WBC (0-5) /HPF Ur Squamous Epith Cells (0-2) /HPF Urine Bacteria (None Seen) Hyaline Casts (0-2) /LPF Stool Occult Blood (NEGATIVE) Influenza Type A (PCR) (Negative) Influenza Type B (PCR) (Negative) RSV RNA Qual (PCR) (Negative) SARS-CoV-2 RNA (RT-PCR) (Negative) Independent Interpretation I performed an independent interpretation of an: EKG and Plain X-Ray Radiology Impression Discussion of test interpretation with radiology: I have reviewed the radiologist's reading. Independent Historian Clinical information obtained from an independent historian. History obtained from or confirmed by: EMS External Record Review External record reviewed: Inpatient record, Office record, Outpatient record, Prior outpatient labs, Prior outpatient radiology, Primary care record and Outside ED record Tests considered The following testing was considered but not selected: As above Chronic Conditions Patient?s care impacted by: Diabetes and Hypertension Social Determinants Patient?s care significantly limited by Social Determinants of Health including: Other Social Determinant of Health Discharge Plan Discharge Clinical Impression: Bleeding external hemorrhoids Patient Disposition: Home, Self-Care Instructions: Hemorrhoids (DC) Additional Instructions: your blood work and chest x-ray are reassuring Your blood pressures remain stable with position changes Your stool was negative for blood Your bleeding is likely from your hemorrhoids, please apply topical hydrocortisone cream twice daily as needed If her bleeding persists or worsens, you have abdominal pain, continued lightheadedness / dizziness, falls return to the ED immediately You need to follow up with your doctor as well as colorectal specialist Prescriptions: New hydrocortisone 2.5 % cream with perineal applicator 1 appl RI BID PRN (Reason: hemorrhoids) Qty: 30 0RF No Action (DME) pediatric front wheel walker See Rx Instructions .Route .MEDSUPPLY Qty: 1 0RF Rx Instructions: As directed Eliquis 2.5 mg tablet 2.5 mg PO BID Qty: 180 3RF (DME) lancets [FreeStyle Lancets] 28 gauge misc See Rx Instructions .ROUTE .MEDSUPPLY Qty: 100 3RF Rx Instructions: use to test sugar once a day folic acid 1 mg tablet 1 mg PO DAILY Qty: 90 2RF (DME) blood-glucose meter [OneTouch Verio Flex Start] Kit See Rx Instructions .Route Rx Instructions: Test twice a day ascorbic acid (vitamin C) [Vitamin C] 500 mg tablet 500 mg PO DAILY Qty: 90 1RF tamsulosin 0.4 mg capsule 0.4 mg PO BEDTIME Qty: 30 2RF diclofenac sodium [Arthritis Pain (diclofenac)] 1 % gel 4 g topical QID Qty: 100 0RF Rx Instructions: apply to single knee, ankle, foot; for foot includes sole/toes/top of foot pregabalin 100 mg capsule 100 mg PO Q12H 31 Days Qty: 62 2RF tramadol 50 mg tablet 50 mg PO DAILY PRN (Reason: Pain) cyanocobalamin (vitamin B-12) [Vitamin B-12] 1,000 mcg Tablet 1,000 mcg PO DAILY albuterol sulfate 90 mcg/actuation Hfa Aerosol Inhaler 1 puff INHALATION QID montelukast [Singulair] 10 mg tablet 10 mg PO BEDTIME dexlansoprazole [Dexilant] 60 mg capsule,biphase delayed releas 60 mg PO DAILY@0630 atorvastatin [Lipitor] 40 mg tablet 40 mg PO BEDTIME alprazolam 0.25 mg tablet 0.25 mg PO DAILY PRN (Reason: anxiety) ondansetron 4 mg tablet,disintegrating 4 mg PO Q8H PRN (Reason: nausea and vomiting) Qty: 7 0RF furosemide 40 mg tablet 40 mg PO DAILY famotidine 20 mg tablet 20 mg PO BEDTIME digoxin 125 mcg (0.125 mg) tablet 125 mcg PO MOWEFR (DME) PEDIATRIC FRONT WHEELED WALKER See Rx Instructions .Route .MEDSUPPLY Qty: 1 0RF Rx Instructions: As directed cholecalciferol (vitamin D3) 25 mcg (1,000 unit) capsule 25 mcg PO DAILY Qty: 90 1RF nystatin 100,000 unit/gram powder 1 appl topical DAILY Qty: 15 0RF meclizine 12.5 mg tablet 12.5 mg PO TID PRN (Reason: dizziness) Qty: 14 0RF metoprolol succinate 50 mg tablet extended release 24 hr 75 mg PO DAILY zolpidem 5 mg tablet 5 mg PO BEDTIME PRN (Reason: insomnia) Qty: 90 0RF empagliflozin 10 mg tablet 10 mg PO DAILY Referrals: [facility] [place] [facility] [Provider Group] Solange Jacobs MD [Primary Care Provider] - 1 Week Print Language: Kazakh
--- OUTSIDE RECORDS SUMMARY | 2024-06-22 08:55 | XMS_ITS | Continuity of Care Document ---
Author Organization Formerly [facility] Address [address] [address] Phone Care Team Providers Care Crushing Foreman Name Role Phone Anton Jean Baptiste DO Unavailable Unavailable Advance Directives Directive Yes / No Effective Date File Name No Information Encounters Encounter Description Practice Location Reason(s) For Visit Diagnoses Date Provider Providers Copied on Encounter [facility], [address], [id number], [place] tel:[phone] [place] No Information [address]. [address], [place], [id number] , [place]. tel:[phone] Family History Family Member Type Diagnosis Age [...]
[2024-06-22 09:41] LABS: Alanine Aminotransferase 11 U/L (0-31); Albumin Level 3.9 g/dL (3.5-5.0); Alkaline Phosphatase 126 U/L (39-117); Anion Gap 14 (12-20); Aspartate Amino Transferase 22 U/L (5-31); Bilirubin Direct 0.3 mg/dL (0.0-0.5); Bilirubin Total 0.9 mg/dL (0.0-1.0); Blood Urea Nitrogen 14 mg/dL (9-16); Calcium 9.5 mg/dL (8.4-10.2); Carbon Dioxide 24 mmol/L (22-29); Chloride 109 mmol/L (96-108); Creatinine Clr Calc Pharmacy 38.6; Estimated Glomerular Filt Rate 56; Glucose Random 216 mg/dL (60-115); Lipase 17 U/L (8-78); Magnesium 1.9 mg/dL (1.6-2.6); Potassium 3.4 mmol/L (3.3-5.1); Sodium 144 mmol/L (135-145); Total Protein 7.4 g/dL (6.5-8.0)
[2024-06-22 09:48] LABS: Troponin-I High Sensitivity 7.7 ng/L (<3.5-17.0)
[2024-06-22 09:58] VITALS: BP 161/81; PULSE 82
[2024-06-22 09:59] LABS: OBS Int Ctl Valid YES; OBS1 NEGATIVE (NEGATIVE)
[2024-06-22 09:59] LABS: MANUAL DIFF FLAG NO
[2024-06-22 10:00] LABS: Appearance Urine Clear; Color Urine Yellow; Glucose Urine UA >=1000 mg/dL (Negative); Leukocyte Esterase Urine Negative (Negative); Nitrite Urine Negative (Negative); PH 7.5 (5.0-9.0); Specific Gravity - Urine <= 1.005 (1.005-1.025); UMIC TRIGGER UACC YES; Urine Blood Negative (Negative); Urine Ketones Negative (Negative); Urine Protein Negative (Neg-Trace)
[2024-06-22 10:01] VITALS: BP 164/87; PULSE 84
[2024-06-22 10:02] LABS: Basophils Absolute Auto 0.1 X10*3/uL (0.0-0.2); Basophils Percent Auto 0.5 % (0-2); Eosinophils Absolute Auto 0.1 X10*3/uL (0.0-0.4); Eosinophils Percent Auto 1.1 % (0-4); Hematocrit 47.2 % (37.0-47.0); Hemoglobin 14.3 g/dl (12.0-16.0); Imm Gran Abs Auto 0.03 X10*3/uL (0.00-0.03); Imm Gran Pct Auto 0.3 % (0.0-0.4); Lymphocytes Absolute Auto 1.9 X10*3/uL (1.2-4.9); Lymphocytes Percent Auto 17.8 % (20-40); Mean Corpuscular HGB Conc 30.3 g/dl (31.0-35.0); Mean Corpuscular Volume 82.4 fL (80.0-98.0); Mean Platelet Volume 10.4 fL (9.4-12.3); Monocytes Absolute Auto 1.1 X10*3/uL (0.1-1.2); Monocytes Percent Auto 10.5 % (2-11); Neutrophils Absolute Auto 7.4 x10*3/uL (2.0-8.3); Neutrophils Percent Auto 69.8 % (45-73); Platelet Count 266 X10*3/uL (160-400); Red Blood Count 5.73 X10*6/uL (4.20-5.50); Red Cell Distribution Width 19.7 % (11.0-16.0); White Blood Count 10.6 X10*3/uL (4.8-10.8)
[2024-06-22 10:03] LABS: Influenza A PCR NEGATIVE (Negative); Influenza B PCR NEGATIVE (Negative); Resp Syncy Virus RNA Qual PCR NEGATIVE (Negative); SARS COV2 PCR INHOUSE NEGATIVE (Negative)
[2024-06-22 10:04] VITALS: BP 175/90; PULSE 93
[2024-06-22 10:22] LABS: B Type Natriuretic Peptide 639 pg/mL (<100)
[2024-06-22] MEDS: Furosemide 40 MG TABLET PO (10:53)
[2024-06-22 10:55] LABS: Bacteria Urine None Seen (None Seen); Hyaline Casts Urine 0-2 /LPF (0-2); RBC Urine 0-2 /HPF (0-2); Squamous Epithelial Cell Urine 0-2 /HPF (0-2); WBC Urine 0-5 /HPF (0-5)
[2024-06-22 12:21] VITALS: BP 146/71; PULSE 93; RESP 16; O2SAT 92
[2024-06-22 13:18] LABS: INTERNATIONAL NORM RATIO 1.4 (0.9-1.1); Prothrombin Time 16.2 SEC (10.9-12.4)
[2024-06-22 13:34] LABS: Troponin-I High Sensitivity 8.9 ng/L (<3.5-17.0)
[2024-06-22 15:58] VITALS: BP 146/71; PULSE 93; RESP 16; TEMP 37.1; O2SAT 92
== END 2024-06-22 15:59 | disposition home or self-care (01) ==
PROVIDERS: Physician Assistant; Emergency Provider Emergency Medicine; PCP Internal Medicine
DX: K62.5 Hemorrhage of anus and rectum (principal); I48.91 Unspecified atrial fibrillation; E11.9 Type 2 diabetes mellitus without complications; R06.02 Shortness of breath; R42 Dizziness and giddiness; Z03.818 Encounter for observation for suspected exposure to other biological agents ruled out; Z79.899 Other long term (current) drug therapy; Z79.01 Long term (current) use of anticoagulants; Z87.891 Personal history of nicotine dependence
CPT/HCPCS: 0241U; 36415; 71046; 80048; 80076; 81001; 81003; 82272; 83690; 83735; 83880; 84484; 85025; 85610; 93005; 99283; 99285

== ENCOUNTER → 2024-06-22 08:27 | Outpatient (BNV) | payer MEDICARE, OTHER, SELFPAY | PROVIDERS: Emergency Provider Emergency Medicine; PCP Internal Medicine; Visit Provider Radiology Diagnostic Radiology | DX: R06.02 Shortness of breath (principal) | CPT/HCPCS: 71046 ==

== ENCOUNTER → 2024-06-22 08:27 | Outpatient (BNV) | payer MEDICARE, OTHER, SELFPAY | PROVIDERS: Emergency Provider Emergency Medicine; PCP Internal Medicine; Visit Provider Internal Medicine Cardiovascular Disease | DX: I48.91 Unspecified atrial fibrillation (principal); I21.09 ST elevation (STEMI) myocardial infarction involving other coronary artery of anterior wall | CPT/HCPCS: 93010 ==

== ENCOUNTER 2024-07-06 09:58 | Outpatient (AMB) | payer MEDICARE, OTHER, SELFPAY ==
--- NOTE | 2024-07-06 10:07 | A.OFFPC_ITS ---
Vital Signs 07/06/24 10:22 Height 5 ft 3 in Weight 143 lb 2 oz BMI 25.4 BP 138/70 Blood Pressure Location Lt brachial Position Sitting Pulse 84 Pulse Source Pulse Oximeter Temp 97.1 F Temp Source Skin Pulse Oximetry (%) 93 Oxygen Delivery Method Room Air Intake Visit Reasons: [facility] 06/22 Intake Note: Patient is here to follow-up after a visit the emergency department at [facility] on 06/22/24 Center Director Required: No Wheel Tuner: Present Accompanied by: Sister Allergies ciprofloxacin Allergy (Severe, Verified 07/06/24 10:22) unknown aspirin [Aspirin] Allergy (Unknown, Verified 07/06/24 10:22) UNKNOWN cefuroxime Allergy (Unknown, Verified 07/06/24 10:22) Unknown celecoxib [From Celebrex] Allergy (Unknown, Verified 07/06/24 10:22) UNKNOWN metformin Allergy (Unknown, Verified 07/06/24 10:22) diarrhea risedronate sodium [From Actonel] Allergy (Unknown, Verified 07/06/24 10:22) UNKNOWN Sulfa (Sulfonamide Antibiotics) Allergy (Unknown, Verified 07/06/24 10:22) unknown bupropion Adverse Reaction (Intermediate, Verified 07/06/24 10:22) tremor ferrous sulfate Adverse Reaction (Intermediate, Verified 07/06/24 10:22) tremors sertraline Adverse Reaction (Intermediate, Verified 07/06/24 10:22) tremors Medication List - Last Reconciled 07/06/24 by Soledad Agudelo PA-C albuterol sulfate 90 mcg/actuation 1 puff inhalation QID alprazolam 0.25 mg PO DAILY PRN apixaban (Eliquis) 2.5 mg PO BID ascorbic acid (vitamin C) (Vitamin C) 500 mg PO DAILY atorvastatin (Lipitor) 40 mg PO BEDTIME bisacodyl (Dulcolax (bisacodyl)) 5 mg PO BEDTIME 30 days blood-glucose meter (Medi[employer] Verio Flex Start kit) Test twice a day cholecalciferol (vitamin D3) 25 mcg PO DAILY cyanocobalamin (vitamin B-12) (Vitamin B-12) 1,000 mcg PO DAILY dexlansoprazole (Dexilant) 60 mg PO DAILY@0630 diclofenac sodium 1% (Arthritis Pain (diclofenac)) 4 grams topical QID digoxin 125 mcg PO MOWEFR empagliflozin 10 mg PO DAILY famotidine 20 mg PO BEDTIME folic acid 1 mg PO DAILY furosemide 40 mg PO DAILY hydrocortisone 2.5% 1 appl FL BID PRN lancets (FreeStyle Lancets) use to test sugar once a day meclizine 12.5 mg PO TID PRN metoprolol succinate ER 75 mg PO DAILY montelukast (Singulair) 10 mg PO BEDTIME nystatin 1 appl topical DAILY ondansetron 4 mg PO Q8H PRN [pediatric front wheel walker As directed] [PEDIATRIC FRONT WHEELED WALKER As directed] pregabalin 100 mg PO Q12H 31 days tamsulosin 0.4 mg PO BEDTIME tramadol 50 mg PO DAILY PRN zolpidem 5 mg PO BEDTIME PRN Tobacco use date assessed: 07/06/24 Fall risk assessment: 2 + Falls in past year Last assessed Fall Risk: 07/06/24 Dental Screening Dental Screen Date: 07/06/24 Did you have a dental visit in the last 12 months?: No Did you have a dental problem in the last 6 months where you did not have access to dental care?: No Was dental information given to patient?: No (No teeth) HPI [facility] 06/22 HPI Details 89-year-old female with a past medical h istory of hypertension, hypercholesterolemia, GERD, diabetes mellitus, generalized anxiety disorder, coronary artery disease, history of TIA, atrial fibrillation, congestive heart failure last seen 05/2024 coming in for hospital discharge follow up. In review of the notes, patient was seen in [facility] ED 06/22/2024 for rectal bleeding along with generalized fatigue and weakness workup was negative for ACS/CHF diagnosed with hemorrhoids advised to use topical hydrocortisone cream twice daily as needed and patient was discharged home. Patient tells us today she has not had any more bleeding from the rectum since discharge from the hospital and symptoms have improved. She does have loose stool very often and we will occasionally have incontinence. She uses MiraLax every day for prevention of constipation. She does mentioned about 1 and half weeks ago she had a fall after tripping on something and since then has been having pain in the left foot. She also began having redness over the left foot over the last several days with increased pain. She did hit her head at the time of the fall but denies any neurological symptoms at this time. She has been monitoring her blood sugars at home which are typically in the 150- 250 range and occasionally values in 300 as well. Her last A1c was elevated at 7.7% [facility] Medical History Weakness Dizziness and giddiness Weakness Yeast infection of the skin Exercise hypoxemia Acute respiratory failure with hypoxia Lipoma of lower back Urinary incontinence Cystitis Acute urinary retention Acute diverticulitis of intestine Generalized abdominal pain Diverticular disease Nausea & vomiting Failure to thrive in adult TSH elevation CHF (congestive heart failure) Atrial fibrillation with RVR Atrial fibrillation with RVR Type 2 diabetes mellitus with hyperglycemia Diabetes mellitus Asthma Hypokalemia Hypomagnesemia Diarrhea Hearing difficulty Dyspnea on exertion History of gastrointestinal diverticular hemorrhage COVID-19 virus infection Rectal bleeding Medicare annual wellness visit, initial Hip pain, left Patellar sleeve fracture of right knee Knee pain, right Nausea and vomiting Coarse tremors Shoulder pain, right Hospital discharge follow-up Mass on back Constipation Tinea corporis Nausea Right wrist pain Left knee pain Left hip pain Toe pain, left Breast cancer screening by mammogram UTI (urinary tract infection) Obesity (BMI 30-39.9) Urinary frequency Toe fracture, left Pancreatic cyst Osteoporosis Peptic ulcer disease Urinary incontinence Rectal incontinence GERD (gastroesophageal reflux disease) Bile salt-induced diarrhea Vaginal prolapse Renal artery stenosis Asthma Lumbar degenerative disc disease Insomnia TIA (transient ischemic attack) Hyperlipidemia, unspecified Essential hypertension Surgical History Hx of colonoscopy History of esophagogastroduodenoscopy (EGD) History of removal of cyst (~10/17/21) History of hemorrhoidectomy History of colectomy History of section History of hysterectomy History of appendectomy History of cholecystectomy Family History Father Cancer Arterial thrombosis Mother Multiple sclerosis Muscular dystrophy Hypertension Depression Chronic mental illness Mental health disorder Brother No problems noted. Brother Gangrene Sister No problems noted. Son No problems noted. Son No problems noted. Son No problems noted. Son No problems noted. Daughter No problems noted. Daughter No problems noted. Daughter No problems noted. Social History Household Members: None Housing: Apartment Do you presently have visiting nurse or other home services: Yes Alcohol intake: former Comment: 1:1 sitter Patient Tobacco Use Status: Former Tobacco user Tobacco use type: Cigarette Years Smoked: 22 e-Cigarette/Vaping Use: Former Use Second Hand Smoke Exposure: Yes Advance Directives Date on File: 08/06/23 service: No Current occupational status: disabled Current occupational exposures/hazards: No Cognitive needs: Yes (walker) Hearing needs: Yes Vision needs: Yes (Glasses) Questionnaire PHQ-9 Over the last 2 weeks, how often have you been bothered by any of the following problems? 1. Little interest or pleasure in doing things: not at all 2. Feeling down, depressed, or hopeless: not at all 3. Trouble falling or staying asleep, or sleeping too much: not at all 4. Feeling tired or having little energy: not at all 5. Poor appetite or overeating: not at all 6. Feeling bad about yourself - or that you are a failure or have let yourself or your family down: not at all 7. Trouble concentrating on things, such as reading the newspaper or watching television: not at all 8. Moving or speaking so slowly that other people could have noticed. Or the opposite - being so fidgety or restless that you have been moving around a lot more than usual: not at all 9. Thoughts that you would be better off or of hurting yourself in some way: not at all Total score: 0 Depression Screening Interpretation: Negative Depression Screening Done: Yes Source: Developed by Drs. Brandon Villeda, Vijaya Damon, Jaydon Easley and colleagues, with an educational phi from [employer]. Thrive Questionnaire Date Thrive assessed: 07/06/24 I am a: Patient What is your living situation today?: I have a steady place to live Within the past 12 months, did the food you bought not last and you didn't have the money to get more?: Never true Within the past 12 months, did you worry whether your food would run out before you got money to buy more?: Never true Do you have trouble paying for medicines?: No Do you have trouble getting transportation to medical appointments?: No Do you have trouble paying your heating and electricity bill?: No Do you have trouble taking care of your child, family member or friend?: No Do you have trouble with day-to-day activities such as bathing, preparing meals, shopping, managing finances, etc.?: No Are you currently unemployed and looking for a job?: No Are you interested in more education?: No Please select the resources that you would like help with: None Currently or been in a relationship where the following occur: No concerns reported THRIVE Score: 0 AUDIT C Alcohol Use Questionnaire (AUDIT-C) 1. How often do you have a drink containing alcohol?: Never Total Score: 0 MERY-7 AMB Questionnaire MERY-7 Date MERY - 7 assessed: 07/06/24 Feeling nervous, anxious, or on edge: 0 = Not at all Not being able to stop or control worryin = Not at all Worrying too much about different things: 0 = Not at all Trouble relaxin = Not at all Being so restless that it is hard to sit still: 0 = Not at all Becoming easily annoyed or irritable: 0 = Not at all Feeling afraid as if something awful might happen: 0 = Not at all Total MERY-7 score (0-4 normal; 5-9 mild; 10-14 moderate; 15-21 severe): 0 Source: Developed by Drs. Brandon Villeda, Vijaya Damon, Jaydon Easley and colleagues, with an educational phi from [employer]. Review of Systems Const Denies body aches, Denies chills, Denies fever(s), Denies headache(s) and Denies poor appetite Eyes Reports no additional complaints ENT Denies dysphagia, Denies dizziness, Denies headache(s) and Denies odynophagia Card Denies chest pain, Denies syncope, Denies edema, Denies irregular heart rhythm, Denies lightheadedness and Denies dyspnea Resp Denies cough and Denies dyspnea GI Denies abdominal pain, Denies constipation, Denies dysphagia, Denies diarrhea, Denies nausea, Denies odynophagia and Denies vomiting Reports no additional complaints Musc Reports no additional complaints and Denies abnormal gait Skin/Breast Reports system reviewed and no additional complaints, except as documented Neuro Denies abnormal gait, Denies dizziness, Denies syncope and Denies headache(s) Psych Reports no additional complaints Physical exam (Primary Care) Vital Signs: Last Vital Signs Temp 97.1 F 07/06/24 10:22 Pulse 84 07/06/24 10:22 BP 138/70 07/06/24 10:22 Pulse Ox 93 07/06/24 10:22 Oxygen Delivery Method Room Air 07/06/24 10:22 BMI result Body Mass Index 25.4 Tobacco/Smoking Status: Tobacco use Status Tobacco use date assessed 07/06/24 07/06/24 10:30 Patient Tobacco Use Status Former Tobacco user 07/06/24 10:08 Tobacco use type Cigarette 07/06/24 10:08 e-Cigarette/Vaping Use Former Use 07/06/24 10:08 PHQ-9: PHQ-9 Score PHQ-9: Total score 0 07/06/24 10:32 Depression Screening Interpretation: Negative Thrive Assessment: Date of Thrive Assessment Date Thrive assessed 07/06/24 07/06/24 10:30 Currently or been in a relationship where the following occur: No concerns reported Const General: cooperative, healthy appearing, comfortable and no acute distress Orientation/consciousness: patient oriented x3 HENMT Head: Yes normocephalic Ears: hearing grossly normal bilaterally General nose exam: Normal external nose present Eyes General: appearance normal, both eyes and all related structures Conjunctivae: conjunctivae normal Neck Neck: Yes full ROM and Yes no lymphadenopathy Resp Effort & Inspection: normal respiratory effort Auscultation: clear to auscultation bilaterally, no crackles, no rales, no rhonchi and no wheezes Cardio Rate: regular rate Rhythm: regular rhythm Skin General skin exam: no rashes or lesions noted Neuro General: patient oriented x3 Gait exam (Neuro): Normal gait present Extrem Other: Tenderness to palpation over entirety of left foot. Bruising of the 2nd and 3rd digits of the left foot. Erythema and 1+ pitting edema of lateral aspect of the left foot with intact pulses and sensation General: Yes full ROM and No edema Psych Affect: normal affect Attitude: cooperative Insight: Good insight present (Psych) Judgement: Good judgement present (Psych) Coding Level of Care Code Est Pt Level 4 (72878) Diagnoses Gastroesophageal reflux disease without esophagitis K21.9 Esophagitis presence: without esophagitis Diabetic neuropathy E11.40 Essential hypertension I10 Asthma J45.909 Closed nondisplaced fracture of fifth metatarsal bone of left foot, initial encounter S92.355A Encounter type: initial encounter Fracture type: closed Fracture alignment: nondisplaced Laterality: left Cellulitis of other specified site L03.818 Site of cellulitis: other site Type 2 diabetes mellitus with hyperglycemia, without long-term current use of in sulin E11.65 Diabetes mellitus middle or intermediate school principal insulin use: without middle or intermediate school principal use Assessment & Plan Assessment & Plan (1) GERD (gastroesophageal reflux disease): Code(s): K21.9 - Gastro-esophageal reflux disease without esophagitis Category: Medical Qualifiers: Esophagitis presence: without esophagitis Qualified Code(s): K21.9 - Gastro-esophageal reflux disease without esophagitis Plan: Avoid trigger foods such as citrus, tomato products, soda, caffeine, spicy foods and other foods that may be irritating to your stomach. Avoid laying flat 3-4 hours after eating and elevate the head of the bed 30 degrees to prevent acid from moving into the esophagus. (2) Diabetic neuropathy: Code(s): E11.40 - Type 2 diabetes mellitus with diabetic neuropathy, unspecified Category: Medical Plan: Patient tells us today she continues to have occasional neuropathy in bilateral legs. Advised to continue on current medication and refilled diclofenac gel. (3) Essential hypertension: Code(s): I10 - Essential (primary) hypertension Category: Medical Plan: Continue on current blood pressure medication. Avoid salt intake and encourage healthy diet and regular exercise. (4) Asthma: Code(s): J45.909 - Unspecified asthma, uncomplicated Category: Medical Plan: Asthma currently controlled on present medications. Continue on albuterol as needed. Avoid triggers such as allergies. (5) Fracture of fifth metatarsal bone: Code(s): S92.353A - Displaced fracture of fifth metatarsal bone, unspecified foot, initial encounter for closed fracture Category: Medical Qualifiers: Encounter type: initial encounter Fracture type: closed Fracture alignment: nondisplaced Laterality: left Qualified Code(s): S92.355A - Nondisplaced fracture of fifth metatarsal bone, left foot, initial encounter for closed fracture Plan: Patient had x-ray completed that showed: 1. Acute spiral fracture, mid to distal diaphysis, fifth metatarsal. Minimal displacement. No angulation. 2. Osteopenia. 3. Arthritic changes as detailed, with small plantar calcaneal spur. I consulted Orthopedics who recommended a walking boot. Given patient's ambulation status she is more comfortable with a postop shoe which was okayed by Orthopedics. Urgent referral sent to ortho as well for further management. Patient left the practice before results of x-ray were available and as a result. She was not able to be given during the initial appointment. Patient agrees to return to the office within the next 1-2 days to shredder picker a postop shoe (6) Cellulitis: Code(s): L03.90 - Cellulitis, unspecified Category: Medical Qualifiers: Site of cellulitis: other site Qualified Code(s): L03.818 - Cellulitis of other sites Plan: Patient having worsening redness and pain over the last few days over the lateral aspect of the left foot concerning for cellulitis. Given patient's diabetic status we will treat with antibiotics at this time (7) Type 2 diabetes mellitus with hyperglycemia: Code(s): E11.65 - Type 2 diabetes mellitus with hyperglycemia Category: Medical Qualifiers: Diabetes mellitus middle or intermediate school principal insulin use: without middle or intermediate school principal use Qualified Code(s): E11.65 - Type 2 diabetes mellitus with hyperglycemia Plan: Decrease the amount of carbohydrates such as pasta, bread, rice, and potatoes and limit the amount of sweets. Although fruits are generally healthy they should be eaten in moderation as they are still high in sugar. Hemoglobin A1c goal of less than 7%. Given elevated blood sugars at home we will plan to increase Jardiance to 25 mg and follow up next month Plan This note was constructed using voice recognition software. While every effort has been made to ensure accuracy and silverware assembler, still areas may have been included sometimes these areas may affect the content or meeting of the given symptoms. Total time spent caring for the patient today was 30 minutes. This includes time spent before the visit reviewing the chart, time spent during the visit, and time spent after the visit and documentation. Orders: Orders XR foot LT 2V Today M79.672 - Pain in left foot Referrals Orthopedics Referral S92.353A - Displaced fracture of fifth metatarsal bone, unspecified foot, initial encounter for closed fracture Medications: New empagliflozin (Jardiance) 25 mg PO DAILY 90 tabs 0RF amoxicillin-pot clavulanate 875-125 mg 1 tab PO BID 14 tabs 0RF amoxicillin-pot clavulanate 875-125 mg 1 tab PO BID 14 tabs 0RF
[2024-07-06 10:22] VITALS: BP 138/70; PULSE 84; TEMP 36.2; O2SAT 93; BMI 25.4
--- OUTSIDE RECORDS SUMMARY | 2024-07-06 10:44 | XMS_ITS | Data Portability ---
Author Organization [facility], Main Office Address [address], [address] [place] [address] Care Team Providers Care Screener Operator Name Role Phone CHIQUIS ESCOBEDO - 2ND FLOOR OTHER PO, ALYSSA Primary Care Provider Assessment No assessment recorded. Plan of Treatment Reminders Order Date Submit Date Provider Last Modified By Organization Details Last Modified Time Details Appointments None recorded . Lab None recorded . Referral None recorded . Procedures None recorded . Surgeries None recorded . Imaging None recorded . Medication Orders Xanax 0.25 mg tablet 024 01/14/20 24 [facility] , [address] [place], [address], 18:34:50 Patient TargetsNo targets recorded. Patient InstructionsNo instructions recorded. Reason for Referral None Reported. Problems Name Problem SNOMED Code Status Onset Date Resolution Date Notes Provider Name and Address Organization Details Recorded Time Type 2 diabetes mellitus 31789938 Active 2023 Charis Lowry NP [address], [address], [place], [address], [facility] 4 13:18:25 Chronic obstructive pulmonary disease 15646835 Active 2023 Charis Lowry NP [address] [facility] [address] [facility], [address], [place], [address], [facility] 4 13:18:33 Congestive heart failure 77812138 Active 2023 Charis Lowry NP [address], [address], [place], [address], [facility] 4 13:18:38 Acute respiratory failure 25716701 Active 2023 Charis Lowry NP [address], [address], [place], [address], [facility] 4 13:18:55 Atrial fibrillation 79622424 Active 2023 Charis Lowry, PANDA [address], [address], [place], [address], [facility] 4 13:22:29 Tremor 60988287 Active 2023 Charis Lowry NP [address], [address], [place], [address], [facility] 4 13:23:07 Mixed anxiety and depressive disorder 732160578 Active 2023 Charis Lowry NP [address], [address], [place], [address], [facility] 4 13:23:16 Chronic pain 35659494 Active 2023 Charis Lowry NP [address], [address], [place], [address], [facility] 4 13:28:13 Anemia 525969739 Active 2023 Charis Lowry NP [address], [address], [place], [address], [facility] 4 13:28:23 Cyst of pancreas 76762175 Active 2023 Charis Lowry NP [address], [address], [place], [address], [facility] 4 13:28:47 Hyperlipidemia 62687106 Active 2023 Charis Lowry NP [address], [address], [place], [address], [facility] 4 13:28:58 Gastroesophage al reflux disease 166243908 Active 2023 Charis Lowry NP [address], [address], [place], [address], [facility] 4 13:29:37 Hypertensive disorder 17615122 Active 2023 Charis Lowry NP [address], [place], [address], [facility] 4 13:31:15 Problem Notes None recorded. Medical Equipment None Reported. Allergies Allergen ID Allergen Name Allergen Category Reaction Reaction Severity Criticality Documentation Date Start Date Code Code System Note Provider Name and Address Organization Details Recorded Time 65994 aspirin medicatio n other Not available unabletoasse 01/14/2024 1191 RxNorm unkno wn Not Available Not Available Not Available 39621 cefuroxim e Not available other Not available unabletoasse 01/14/2024 2194 RxNorm unkno wn Not Available Not Available Not Available 13662 celecoxib medicatio n other Not available unabletoasse 01/14/2024 98262 7 RxNorm unkno wn Not Available Not Available Not Available 68143 ciproflox acin medicatio n other Not available unabletoasse 01/14/2024 2551 RxNorm unkno wn Not Available Not Available Not Available 98145 ferrous sulfate medicatio n other Not available unabletoasse 01/14/2024 89392 RxNorm unkno wn Not Available Not Available Not Available 63430 metformin medicatio n other Not available unabletoasse 01/14/2024 6809 RxNorm unkno wn Not Available Not Available Not Available 72075 risedrona te sodium medicatio n other Not available unabletoasse 01/14/2024 71078 RxNorm unkno wn Not Available Not Available Not Available 57988 sertralin e medicatio n other Not available unabletoasse 01/14/2024 13017 RxNorm unkno wn Not Available Not Available Not Available 89552 bupropion Not available other Not available unabletoasse 01/14/2024 59910 RxNorm unkno wn Not Available Not Available Not Available 67396 Substance with sulfonami de structure and antibacte rial mechanism of action (substanc e) medicatio n other Not available unabletoasse 01/14/2024 93593 8003 SNOMED unkno wn Not Available Not Available Not Available Medications Name Sig Start Date Stop Date Status Note LastModified by Organization Details LastModified Time Xanax 0.25 mg tablet 1 tab 0.25 mg po bid prn anxiety 024 active Not Available Not Available Not Avai lable Vitals Date Recorded Body weight Heart rate Respiratory rate Body temperature Oxygen saturation Oxygen saturation in Arterial blood by Pulse oximetry Systolic blood pressure Diastolic blood pressure Provider Name and Address Organization Details Last Updated DateTime 4 44555.2 2 g 90 /min 20 /min 98 [degF] 95 % 95 % 136 mm[Hg] 88 mm[Hg] Charis Lowry NP [address] [facility] [facility], [address], [place], [address], [facility] 4 13:06:27 Social History Question Answer Notes LastModified by Organizat ion Details LastModified Time Tobacco Smoking Status Former Smoker Charis Lowry NP [address] [facility] [facility], [address], [place], [address], [facility] 01/14/2024 12:59:12 Do You Have An Advance Directive? No Information not available 01/14/2024 What Is Your Level Of Alcohol Consumption? None Former Drinker Information not available 01/14/2024 What Is Your Code Status? Full Code Information not available 01/14/2024 Where Do You Live? Apartment Information not available 01/14/2024 What Was The Date Of Your Most Recent Tobacco Screening? 01/14/2024 Information not available 01/14/2024 Do You Have An Out Of Hospital DNR? No Information not available 01/14/2024 How Much Tobacco Do You Smoke? 1 PPW Information not available 01/14/2024 Do You Use Any Illicit Or Recreational Drugs? No Information not available 01/14/2024 Has Tobacco Cessation Counseling Been Provided? No Na Information not available 01/14/2024 Do You Have Any Dietary Restrictions? No Information not available 01/14/2024 Do You Or Have You Ever Used Any Other Forms Of Tobacco Or Nicotine? No Information not available 01/14/2024 Sex: Female Functional Status None recorded. Mental Status None recorded. Family History Nothing Reported Notes:Father :, canc er and arterial thrombosis mother deceases: multiple sclerosis, muscular dystrophy, HRN, depression, mental illness, brother: healthy brother: gangrene sister: healthy Medical History No medical history recorded. Gynecological HistoryNo gynecological history recorded. Obstetrics History GPAL:G 0 P 0 0 0 0 Immunizations Vaccine Type Date Status Note Provider Nam e and Address Organization Details Recorded Time Pneumococcal conjugate PCV 13 6 completed [facility] 01/14/2024 12:45:53 influenza, unspecified formulation 2 completed [facility] 01/14/2024 12:46:10 influenza, unspecified formulation 3 completed [facility] 01/14/2024 12:46:17 SARS-COV-2 (COVID-19) vaccine, UNSPECIFIED 1 completed [facility] 01/14/2024 12:50:53 SARS-COV-2 (COVID-19) vaccine, UNSPECIFIED 1 completed [facility] 01/14/2024 12:51:02 SARS-COV-2 (COVID-19) vaccine, UNSPECIFIED 1 completed [facility] 01/14/2024 12:51:09 SARS-COV-2 (COVID-19) vaccine, UNSPECIFIED 2 completed [facility] 01/14/2024 12:51:17 SARS-COV-2 (COVID-19) vaccine, UNSPECIFIED 3 completed [facility] 01/14/2024 12:51:24 Past Encounters Encounter ID Performer Location Encounter Start Date Encounter Closed Date Diagnosis/Indication Diagnosis SNOMED-CT Code Diagnosis ICD10 Code Diagnosis Note [id number] Charis Lowry NP [address] [address] 01/14/2024 12:46:17 01/15/2024 13:06:34 Acute respiratory failure 32114940 J96.00 prednisone 40 mg po daily x 4 daysfurose mide 40 mg po dailyalbut gibson qid prn sob/wheezi ngsingulai r 10 mg po -4- 4 liters prn sob sat <90%monito r resp statuslabs as above Congestive heart failure 77181172 I50.9 see acute resp failure above Chronic ob structive pulmonary disease 32110767 J44.9 see acute resp failure above Atrial fibrillation 4943 6004 I48.91 eliquis 2.5 mg po bid for acmetoprol ol succ 100 mg po ermonitor cardiac status, vitals Mixed anxi ety and depressive disorder 852219907 F41.8 01/13 alprazolam 0.25 mg po bid prn (pt reports it is sched daily at home on the bottle but has been taking up to 4 times a day)monito r Tremor 47030442 R25.1 hx offno medication smonitor Cyst of pancreas 0424775 0 K86.2 see hpihistory of cyst noted on abd ctseen by GI, no new recfollow up with pcp outpt Hyperlipidemia 78604823 E78.5 atrovastat in 40 mg po daily Gastroesop hageal reflux disease 313756026 K21.9 with nausea/vom iting todaydexil ant 60 mg po cap dailyzofra n 4 mg po q 6 hours prn nausea vomingadd pepcid 20 mg po daily x 2 qweekmonit or Chronic pain 36701476 G8 9.29 diclofenac 4 g topically qid for paintramad ol 50 mg po daily prn q 6 hours painpregab edward 100 mg po q 12 hoursmonit or for pain Anemia 901119101 D64.9 vit c 500 mg with ferrous sulfate 325 mg po dailyfolic acid 1 mg po dialymonit or cbc weekly and for s/s of bleedingcy anocobalam in 1000 mcg po daily Hypertensive disorder 38 525352 I10 nifedipine 60 mg po er dailymonit or vitals, need to titrate Nausea and vomiting 1693 1999 R11.2 with nausea and vomiting todayrecen t workup in hospitalde xilant 60 mg po cap dailyzofra n 4 mg po q 6 hours prn nausea vomingadd pepcid 20 mg po daily x 2 qweekconsi agustin ivf if no response of ermonitorl abs stable today Asthenia 21320405 R53.1 with weaknessPT OT eval and treatmonit or for improvemen t/worsenin g Health Concerns Section Related Observation LastModified by Organization Detai ls LastModified Time None Recorded Concern Status LastModified by Organization Details LastModified Time None Recorded Advance Directives Directive N: Payers Encounter Date Sequence Insurance Name Policy Number Policy Quiles Covered Member ID Quiles Member ID Guarantor Name 01/14/2024 1 MEDICARE B-[place]: [facility] [employer] Zuleyma Gutierrez [id number] Zuleyma Powersin Notes Date Note Type Note Provider Name and Address Organization Details Recorded Time 01/14/2024 text/html Pt is seen for a n initial intake visit today. PMH: COPD, CHF, DM2, anxiety, hard of hearing, tremors, chronic pain, She is an 88 yo female who presented to [facility] 01/09-01/13/24 with shortness of breath, dizziness, anxiety, and lower extremity swelling felt related to CHF and afib. She is now at [facility] for continued care and rehab. Hospital workup consisted of: BNP and cxr consistent with CHF. She was diuresed with iv lasix, breathing treatments, and IV solumedrol and rec low sodium diet. Her afib with RVR treated with lopresser 25 mg po q 8 hours and felt possibly related to noncompliance at home. Her Eliquis was continued. Her ferrous sulfate was restarted despite allergy. BNP 693, CXR showed pulmonary edema, echo from 11/20/23 reviewed and felt preserved EF. While in hospital GI consulted for intermittent abd discomfort, nausea, and chest discomfort and CT abd resulted in possible interval increase of pancreatic cyst in the uncinate process up to 2.3 x 2.8 cm. Prior measurement 2.4 x 2 cm on MRI in 2020. Her nasuea and abd pain resolved and was eating prior to dc and dizziness felt likely to afib with rvr resolved in hospital aswell. All home medications were continued with prednisone daily x 4 days and her zolpidem was discontinued. On exam, Zuleyma is nausea and vomiting into the trash can stating she feels awful. Her vitals are stable and she states she can't eat today, or she vomits. She requests alprazolam now and agrees to trial zofran. She states she takes up to 4 alazopram a day even though it is ordered daily. She cannot participate in bims due to vomiting. MOLST: full code Charis Lowry NP [address] [facility] [facility], [address], [place], [address], [facility] 01/14/2024 14:11:50 OBGyn Episode No OBEpisode recorded.
--- OUTSIDE RECORDS SUMMARY | 2024-07-06 10:44 | XMS_ITS | Continuity of Care Document ---
Author Organization [facility] Address [address] [address] Phone Care Team Providers Care Client Relationship Manager Name Role Phone Anton Jean Baptiste DO Unavailable Unavailable Advance Directives Directive Yes / No Effective Date File Name No Information Encounters Encounter Description Practice Location Reason(s) For Visit Diagnoses Date Provider Providers Copied on Encounter [facility], [address], [id number], [place] tel:[phone] [place] No Information 0 Markel Walton. [address] [place], [place], [id number] , [place]. tel:[phone] Family History Family Member Type Diagnosis Age [...]
== END 2024-07-06 11:16 | disposition home or self-care (01) ==
PROVIDERS: PCP Internal Medicine
DX: K21.9 Gastro-esophageal reflux disease without esophagitis (principal); E11.40 Type 2 diabetes mellitus with diabetic neuropathy, unspecified; E11.65 Type 2 diabetes mellitus with hyperglycemia; I10 Essential (primary) hypertension; J45.909 Unspecified asthma, uncomplicated; S92.355A Nondisplaced fracture of fifth metatarsal bone, left foot, initial encounter for closed fracture; L03.818 Cellulitis of other sites

== ENCOUNTER 2024-07-06 09:58 | Outpatient (REF) | payer MEDICARE, OTHER, SELFPAY ==
--- NOTE | ~2024-07-06 | XR_ITS ---
EXAMINATION: XR FOOT, LEFT CLINICAL INFORMATION: M79.672 - Pain in left foot COMPARISON: 01/03/2021. TECHNIQUE: AP, lateral, and oblique views of the left foot. FINDINGS: Osteopenia. Acute spiral fracture of the distal one third of the fifth metatarsal diaphysis. There is approximately 2 mm of superomedial displacement of the distal fragment. No angulation or override. No additional acute fractures identified. 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 There is a small plantar calcaneal spur. There is lateral soft tissue swelling abutting the fracture site. XR/XR foot LT 2V IMPRESSION: 1. Acute spiral fracture, mid to distal diaphysis, fifth metatarsal. Minimal displacement. No angulation. 2. Osteopenia. 3. Arthritic changes as detailed, with small plantar calcaneal spur. Electronically signed by: Leandro Moss MD 07/06/2024 11:48 AM SHAKIRA
--- OUTSIDE RECORDS SUMMARY | 2024-07-06 12:03 | XMS_ITS | Continuity of Care Document ---
Author Organization [facility] Address [address] [address] Phone Care Team Providers Care Territory Account Manager Name Role Phone Anton Jean Baptiste DO Unavailable Unavailable Advance Directives Directive Yes / No Effective Date File Name No Information Encounters Encounter Description Practice Location Reason(s) For Visit Diagnoses Date Provider Providers Copied on Encounter [facility], [address], [id number], [place] tel:[phone] [place] No Information 0 Markel Walton. [address] [place], [place], [id number] , [place]. tel:[phone] Family History Family Member Type Diagnosis Age [...]
--- OUTSIDE RECORDS SUMMARY | 2024-07-06 12:03 | XMS_ITS | Data Portability ---
Author Organization [facility], [facility] Address [address] [place] [address] Care Team Providers Care Portrait Artist Name Role Phone [email or web address] Primary Care Provider KIMBER FERGUSON Vertical Contour Band Saw Operator JEISON RAMIREZ Tail End Rider [phone] Assessment Encounter Date Assessment Date Assessment LastModified by Organization Details LastModified Time 08/27/2022 08/27/2022 Type 2 diabetes mellitus with peripheral neuropathy, dystrophic toenails, hyperkeratotic lesions jerskine Not available 08/27/2022 12:08:41 04/08/2023 04/08/2023 Type 2 diabetes mellitus with peripheral neuropathy, dystrophic toenails, hyperkeratotic lesions jerskine Not available 04/08/2023 12:08:15 06/16/2023 06/16/20[address] RTC per alley cleaner jmandwilbert Not available 06/16/2023 16:30:13 06/17/2023 06/17/2023 Type 2 diabetes mellitus with peripheral neuropathy, dystrophic toenails, hyperkeratotic lesions jerskine Not available 06/17/2023 11:48:06 10/22/2023 10/22/2023 Type 2 diabetes mellitus with peripheral neuropathy, dystrophic toenails, hyperkeratotic lesions jerskine Not available 10/22/2023 09:43:46 Plan of Treatment Reminders Order Date Submit Date Provider Last Modified By Organization Details Last Modified Time Details Appointments Follow Up, 2024 12:15P Nette Ferguson DPM Not available Not available Not available Lab None recorded. Referral ophthalmo logist referral - narrow angle, blurry vision, cataracts , glaucoma suspect. 2023 024 [email or web address] [facility], [address] [place], [address], 06/23/2023 14:46:35 Procedures None recorded. Surgeries None recorded. Imaging None recorded. Medication Orders None recorded. Patient TargetsNo targets recorded. Patient Instructions Encounter Date Encounter Id Patient Instructions Last Modified By Organization Details Last Modified Time 08/27/2022 [id number] Patient to retur n in 9 weeks for foot care to reduce risk of complications associated with type 2 diabetes mellitus with peripheral neuropathy. jerskine Not available 08/27/2022 12:08:41 04/08/2023 [id number] Patient to retur n in 9 weeks for foot care to reduce risk of complications associated with type 2 diabetes mellitus with peripheral neuropathy. jerskine Not available 04/08/2023 12:08:15 06/16/2023 [id number] attempted gonioscopy today, patient unable to keep eyes open. will refer back to Dr. ingram. jmandile Not available 06/16/2023 16:45:37 06/17/2023 [id number] Patient to retur n in 9 weeks for foot care to reduce risk of complications associated with type 2 diabetes mellitus with peripheral neuropathy. jerskine Not available 06/17/2023 11:48:06 10/22/2023 [id number] Patient to retur n in 9 weeks for foot care to reduce risk of complications associated with type 2 diabetes mellitus with peripheral neuropathy. jerskine Not available 10/22/2023 09:43:46 Reason for Referral Media Executive Referral for Narrow angle narrow angle, blurry vision, cataracts, glaucoma suspect. Referring Physician: Nelly Ramirez, Optometry, Encounter Date: 06/16/2023 Problems Name Problem SNOMED Code Status Onset Date Resolution Date Notes Provider Name and Address Organization Details Recorded Time Diabetes mellitus 45696402 Active [address] [facility] 7 15:01:40 Hypertens hernán disorder 92093025 Active [address] [facility] 7 15:02:05 Hyperchol esterolem ia 85255987 Active [address] [facility] 7 15:02:42 Vitamin B12 level below reference range 786942995 [facility] History of transient ischemic attack 142017174 [facility] 15:[facility]34 Insomnia 569051368 [facility] 15:19:49 Anxiety 29019329 [facility] 16[facility]11:46 Mass of pancreas 753176310 [facility] 16:12:12 Degenerat ion of intervert ebral disc 48716697 [facility] 16:13:58 Asthma 065526944 [facility] 16:14[facility]15 Renal artery stenosis 558294370 [facility] 16:14:41 Diarrheal disorder 273666482 [facility] 16:16[facility]15 Obesity 711232945 Completed 201611/02/2020 Removal Reason: BMI > or = 35 plus other comorbid ities. MIKE Montalvo [facility] 1 06:00:34 Morbid obesity 777849207 Active 2020 BMI > or = 35 plus other comorbid ities. MIKE Montlavo [facility] 1 06:00:43 Disorder of nervous 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 295147042 Active 2020 coded 09/05/[address] Podiat[address] . MIKE Montalvo [facility] 06:02:58 Problem Notes None recorded. Procedures Surgical History Date Name Laterality Status Provider Name and Address Organization Details Recorded Time 06/16/19 24 Refraction completed Nelly Ramirez, OD [address] [place], [address], [facility] 06/16/2023 16:41:05 03/29/20 22 Refraction completed Nelly Ramirez, OD [address] [place], [address], [facility] 2022 17:28:54 12/06/19 21 Fundus Photography completed Nelly Ramirez, OD [address] [place], [address], [facility] 12/05/2020 13:46:33 12/06/19 21 Refraction completed Wanda Darnell [facility] 12/05/2020 10:52:45 03/09/20 18 Refraction completed [facility] 03/09/2018 10:41:18 08/06/19 18 Visual field comprehensive completed Nelly Ramirez, OD [address] [place], [address], [facility] 08/07/2017 10:31:26 05/06/20 17 Pachymetry completed [facility] 05/06/2017 11:53:13 05/06/20 17 Visual field comprehensive completed [facility] 05/06/2017 11:52:41 05/06/20 17 Optical Coherence Tomography (Optic Nerve) completed [facility] 05/06/2017 11:52:37 03/04/20 17 Refraction completed [facility] 03/04/2017 13:39:17 Imaging Results None recorded. Procedure Notes None recorded. Medical Equipment None Reported. Allergies Allergen ID Allergen Name Allergen Category Reaction Reaction Severity Criticality Documentation Date Start Date Code Code System Note Provider Name and Address Organization Details Recorded Time 579778 salicylic acid medicatio n Not available Not available Not available 03/09/2013 9525 Rx[facility] 10:05:07 997854 Celebrex medicatio n Not available Not available Not available 03/09/2013 22338 7 [facility] 10:05:07 244664 Actonel medicatio n Not available Not available Not available 03/09/2013 03087 3 RxNorm Bleed ing Wanda Rea CMA null, [facility] 3 10:05:07 769864 Substance with sulfonami de structure and antibacte rial mechanism of action (substanc e) medicatio n other Not available Not available 06/07/2020 34169 8003 SNOMED lose s mind Qian Morton [facility], [facility] 1 10:53:29 870300 aspirin medicatio n Not available Not available Not available 12/05/2020 1191 RxNorm Wanda Dildine [facility], [facility] 1 10:31:13 Medications Name Sig Start Date Stop Date Status Note LastModified by Organization Details LastModified Time Singulair 10 mg tablet Take 1 tablet every day by oral route. 06/17 completed Not Available Not Available Not Available nifedipin e ER 30 mg tablet,ex tended release 24 hr Take 1 tablet every day by oral route. 04/03 completed pt takes 60mg total Not Available Not Available Not Available Anti-Diar rheal (loperami de) 2 mg tablet TAKE 1/2 TABLET BY MOUTH EVERY OTHER DAY 10/21 completed Not Available Not Available Not Available furosemid e 40 mg tablet TAKE 1 TABLET DAILY active Not Available Not Available No t Available metformin 500 mg tablet Take 1 tablet every day by oral route. 06/07 completed Not Available Not Available Not Available Proctosol HC 2.5 % rectal cream with applicato r Insert 1 applicat ion twice a day by rectal route as directed . 06/07 completed Not Available Not Available Not Available nystatin 100,000 unit/mL oral suspensio n TAKE 5 CC SWISH AND SWALLOW 3 TIMES A DAY FOR 7 DAYS 06/07 completed Not Available Not Available Not Available prednison e 10 mg tablet TAKE 4 TABS DAILY X 2 DAYS THEN 3 TABS X 2 DAYS THEN 2 TABS X 2 DAYS THEN 1 TAB X 2 DAYS BY MOUTH active Not Available Not Available No t Available Vitamin B-12 1,000 mcg/mL injection solution Inject 1 mL every month by intramus cular route. 05/07 completed Not Available Not Available Not Available Vitamin C 500 mg tablet TAKE 1 TABLET ORALLY DAILY active Not Available Not Available No t Available azithromy negar 250 mg tablet TAKE 2 TABLETS BY MOUTH TODAY, THEN TAKE 1 TABLET DAILY FOR 4 DAYS DIRECTED 10/21 completed Not Available Not Available Not Available metoprolo l succinate ER 50 mg tablet,ex tended release 24 hr TAKE 1 TABLET ORALLY DAILY FOR 90 DAYS active Not Available Not Available No t Available promethaz ine 12.5 mg tablet TAKE 1 TABLET BY MOUTH 3 TIMES A DAY NEEDED FOR NAUSEA AND VOMITING FOR 7 DAYS 06/17 completed Not Available Not Available Not Available FreeStyle Lancets 28 gauge TEST ONCE DAILY ONCE A DAY 10/21 completed Not Available Not Available Not Available ondansetr on HCl 4 mg tablet TAKE 1 TABLET BY MOUTH 2 TIMES A DAY NEEDED FOR NAUSEA AND VOMITTIN G active Not Available Not Available No t Available prednison e 20 mg tablet TAKE 2 TABLETS BY MOUTH DAILY FOR 3 DAYS 06/17 completed Not Available Not Available Not Available metoprolo l succinate ER 100 mg tablet,ex tended release 24 hr TAKE 1 TABLET BY MOUTH EVERY DAY 06/17 completed Not Available Not Available Not Available cyanocoba aditya (vit B-12) 1,000 mcg tablet Take 1 tablet every day by oral route as directed . 06/07 completed Not Available Not Available Not Available clopidogr el 75 mg tablet TAKE 1 TABLET BY MOUTH EVERY DAY 06/17 completed Not Available Not Available Not Available ciproflox acin 250 mg tablet TAKE 1 TABLET BY MOUTH EVERY 12 HOURS FOR 3 DAYS 06/07 completed Not Available Not Available Not Available sulfameth oxazole 800 mg-trimet hoprim 160 mg tablet TAKE 1 TABLET BY MOUTH TWICE A DAY FOR 7 DAYS 06/07 completed Not Available Not Available Not Available tramadol 50 mg tablet Take 2 tablets every 6 hours by oral route. 06/07 completed pt states not taking Not Available Not Available Not Available simvastat in 40 mg tablet TAKE 1 TABLET BY MOUTH EVERY EVENING 06/17 completed Not Available Not Available Not Available glimepiri de 2 mg tablet TAKE 1 TABLET BY MOUTH EVERY DAY WITH BREAKFAS T OR FIRST MAIL MEAL OF DAY 01/16 completed Not Available Not Available Not Available hydrocort isone 2.5 % topical cream with perineal applicato r APPLY RECTALLY 2 TO 4 TIMES A DAY NEEDED FOR HEMORRHO IDS 10/21 completed Not Available Not Available Not Available alprazola m 0.25 mg tablet TAKE 1 TABLET ORALLY DAILY FOR ANXIETY FOR 30 DAYS active Not Available Not Available No t Available magnesium oxide 400 mg (241.3 mg magnesium ) tablet TAKE 1 TABLET BY MOUTH DAILY FOR 7 DAYS. 06/17 completed Not Available Not Available Not Available lorazepam 0.5 mg tablet TAKE 1 TABLET BY MOUTH AT BEDTIME PRIOR TO MRI,THEN 1 AGAIN IN MORNING AND 1 IF NEEDED DURING MRI 06/07 completed Not Available Not Available Not Available metoclopr amide 5 mg tablet TAKE ONE TABLET BY MOUTH TWICE A DAY BEFORE LUNCH AND DINNER 06/17 completed Not Available Not Available Not Available meclizine 25 mg tablet TAKE 1 TABLET BY MOUTH 3 TIMES A DAY NEEDED FOR 15 DAYS 06/07 completed Not Available Not Available Not Available benzonata te 100 mg capsule TAKE 1 CAPSULE BY MOUTH THREE TIMES A DAY NEEDED FOR COUGH 10/21 completed Not Available Not Available Not Available hydrocort isone 1 % topical cream APPLY TO AFFECTED AREA 2 TIMES A DAYAS NEEDED FOR SKIN IRRITATI ON 06/17 completed Not Available Not Available Not Available doxycycli ne monohydra te 100 mg capsule TAKE 1 CAPSULE (100 MG TOTAL) BY MOUTH TWICE A DAY FOR 3 DAYS 06/17 completed Not Available Not Available Not Available erythromy negar 5 mg/gram (0.5 %) eye ointment PLACE 1/2 INCHE INTO EACH EYE 4 TIMES A DAY FOR 7 DAYS. 06/07 completed Not Available Not Available Not Available ferrous sulfate 325 mg (65 mg iron) tablet TAKE 1 TABLET BY MOUTH EVERY DAY active Not Available Not Available No t Available ranitidin e 150 mg tablet TK 1 T PO QHS FOR 14 DAYS 06/07 completed Not Available Not Available Not Available clotrimaz ole-betam ethasone 1 %-0.05 % topical cream APPLY TO AFFECTED AREA TWICE A DAY 06/07 completed Not Available Not Available Not Available lansopraz ole 30 mg capsule,d elayed release Take 1 capsule every day by oral route. 06/07 completed Not Available Not Available Not Available lidocaine 5 % topical patch APPLY 1 PATCH DAILY LEAVE IN PLACE FOR UP TO 12 HOURS THEN REMOVE 06/17 completed Not Available Not Available Not Available docusate sodium 100 mg capsule TAKE 1 CAPSULE BY MOUTH TWICE A DAY active Not Available Not Available No t Available sertralin e 25 mg tablet TAKE 1 TABLET BY MOUTH EVERY DAY 06/17 completed Not Available Not Available Not Available folic acid 1 mg tablet Take 1 tablet every day by oral route as directed . 06/07 completed Not Available Not Available Not Available lisinopri l 5 mg tablet TAKE 1 TABLET BY MOUTH EVERY DAY active Not Available Not Available No t Available mometason e 0.1 % topical ointment APPLY TO ARM TWICE DAILY FOR TWO WEEKS BREAK FOR ONE WEEK THEN REPEAT NEEDED 06/18 completed Not Available Not Available Not Available zolpidem 5 mg tablet TAKE 1 TABLET BY MOUTH AT BEDTIME NEEDED FOR INSOMNIA active Not Available Not Available No t Available furosemid e 20 mg tablet TAKE 2 TABLETS (40 MG TOTAL) BY MOUTH DAILY. 06/17 completed Not Available Not Available Not Available cefuroxim e axetil 500 mg tablet TAKE 1 TABLET BY MOUTH EVERY 12 HOURS FOR 5 DAYS 06/07 completed Not Available Not Available Not Available methylpre dnisolone 4 mg tablets in a dose pack FPD 06/07 completed Not Available Not Available Not Available nifedipin e ER 60 mg tablet,ex tended release TAKE 1 TABLET BY MOUTH EVERY DAY active Not Available Not Available No t Available ondansetr on 4 mg disintegr ating tablet TAKE 1 TABLET BY MOUTH EVERY 6 HOURS FOR 5 DAYS 04/03 completed Not Available Not Available Not Available Ambien 10 mg tablet Take 1 tablet every day by oral route at bedtime. 06/07 completed taking generic 5 mg Not Available Not Available Not Available amoxicill in 500 mg-potass ium clavulana te 125 mg tablet TAKE 1 TABLET BY MOUTH 2 TIMES A DAY. 06/17 completed Not Available Not Available Not Available Ventolin HFA 90 mcg/actua tion aerosol inhaler INHALE 2 PUFFS BY INHALATI ON Q 4 H PRF WHEEZING 06/17 completed Not Available Not Available Not Available olmesarta n 40 mg tablet TAKE 1 TABLET BY MOUTH DAILY active Not Available Not Available No t Available cyclobenz aprine 5 mg tablet TAKE 1 TABLET BY MOUTH 3 TIMES A DAY NEEDED FOR MUSCLE SPASM 10/21 completed Not Available Not Available Not Available triamcino lone acetonide 0.05 % topical ointment APPLY A THIN LAYER TO THE AFFECTED AREA(S) BY TOPICAL ROUTE 2 TIMES PER DAY 06/07 completed Not Available Not Available Not Available lansopraz ole 30 mg delayed release,d isintegra ting tablet PLACE 1 TABLET ON THE TONGUE AND ALLOW TO DISSOLVE EVERY DAY BEFORE MEALS 06/07 completed pt states not taking 06/07/20 SM Not Available Not Available Not Available cholestyr amine (with sugar) 4 gram powder for susp in a packet TK 1/2 PACKET PO BID UTD 06/07 completed Not Available Not Available Not Available bupropion HCl XL 150 mg 24 hr tablet, extended release TAKE 1 TABLET BY MOUTH EVERY MORNING 06/17 completed Not Available Not Available Not Available pregabali n 75 mg capsule TAKE 1 CAPSULE BY MOUTH EVERYDAY AT BEDTIME 04/03 completed Not Available Not Available Not Available pregabali n 100 mg capsule TAKE 1 CAPSULE BY MOUTH EVERY 12 HOURS FOR 30 DAYS 06/17 completed Not Available Not Available Not Available folic acid active Not Available Not Available Not Available Vitamin D3 1,000 qd active Not Available Not Available Not Available Culturell e 1 tab orally QD 30,30 06/07 completed Not Available Not Available Not Available FreeStyle Lite Strips TEST ONCE A DAY active Not Available Not Available No t Available Cholestyr amine Light 4 gram oral powder PLEASE SEE ATTACHED FOR DETAILED DIRECTIO NS active Not Available Not Available No t Available B12 10/21 completed Not Available Not Available Not Available Dexilant 60 mg capsule, delayed release TAKE 1 CAPSULE BY MOUTH EVERY DAY 06/17 completed Not Available Not Available Not Available hydrocodo ne-homatr opine 5 mg-1.5 mg/5 mL (5 mL) oral syrup Take 5 mL every 4 hours by oral route as needed. 11/07 completed Not Available Not Available Not Available Eliquis 2.5 mg tablet TAKE 1 TABLET BY MOUTH TWICE A DAY active Not Available Not Available No t Available Anusol-HC 2.5 % topical cream APPLY A THIN LAYER TO THE AFFECTED AREA(S) BY TOPICAL ROUTE 2 TIMES PER DAY 06/07 completed Not Available Not Available Not Available Kapspargo Sprinkle 100 mg capsule,e xtended release TAKE 1 CAPSULE BY MOUTH EVERY DAY 06/17 completed Not Available Not Available Not Available Fluzone High-Dose Quad 2019-21 (PF) 240 mcg/0.7 mL IM syringe PHARMACY ADMINIST ERERuss 04/03 completed Not Available Not Available Not Available Vitals Date Recorded Body height Heart rate Systolic blood pressure Diastolic blood pressure Provider Name and Address Organization Details Last Updated DateTime 08/27/2022 147.32 cm 92 /min 102 mm[Hg] 64 mm[Hg] [facility] 08/27/2022 11:54:19 Date Recorded Body height Provider Name an d Address Organization Details Last Updated DateTime 06/17/2023 147.32 cm [facility] 06/17/2023 11:14:13 Date Recorded Body height Provider Name an d Address Organization Details Last Updated DateTime 10/22/2023 147.32 cm [facility] 10/22/2023 09:20:46 Social History Question Answer Notes LastModified by Organizat ion Details LastModified Time Tobacco Smoking Status Former Smoker quit 15 years [facility]09[facility] 10:03:25 When Did You Quit Smoking? 16+yearssin danica [email or web address] Information not available 03/20/2021 What Was The Date Of Your Most Recent Tobacco Screening? 03/20/2021 Information not available 03/20/2021 Do You Or Have You Ever Used Any Other Forms Of Tobacco Or Nicotine? No [email or web address] Information not available 01/09/2021 Sex: Unknown Functional Status None recorded. Mental Status None recorded. Family History Nothing Reported. Medical History No medical history recorded. Gynecological HistoryNo gynecological history recorded. Obstetrics History GPAL:G 0 P 0 0 0 0 Past Encounters Encounter ID Performer Location Encounter Start Date Encounter Closed Date Diagnosis/Indication Diagnosis SNOMED-CT Code Diagnosis ICD10 Code Diagnosis Note [id number] Kimber Ferguson DPM Podiatry, [facility] [address] [place] [address] 03/09/2013 09:22:50 03/09/2013 10:30:31 Disorder of nervous 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 898265820 [place] 003678788 Disorder of nail 80011242 [id number] Renee Mckay [facility], [address] [address] 04/27/2013 10:25:59 04/27/2013 10:48:29 Disorder of nervous 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 735120012 [place] 289539530 Disorder of nail 23534592 [id number] Melanie Delgado [facility], [address] [address] 06/29/2013 10:07:01 06/29/2013 10:32:54 Disorder of nervous 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 651706139 [place] 860665851 Disorder of nail 61416489 [id number] Pao Donohue [facility], [address] [address] 08/31/2013 09:24:47 08/31/2013 10:06:39 Disorder of nervous 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 708922617 [place] 670543349 Disorder of nail 45879680 [id number] Christal Matson [facility], [address] [address] 11/09/2013 08:16:40 11/09/2013 11:01:36 Disorder of nervous 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 442245222 [place] 786642557 Disorder of nail 53574288 [id number] Kimber Ferguson DPM Podiatry, [address] [address] 01/18/2014 08:30:34 01/18/2014 09:14:28 Disorder of nervous 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 372755948 [place] 567529002 Disorder of nail 04451827 [id number] Flavia Webb [facility]iat[facility], [address] [address] 03/22/2014 09:19:47 03/22/2014 10:18:39 Disorder of nervous 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 604177584 [place] 440964707 Disorder of nail 88562887 [id number] Kimber Ferguson DPM Podiatry, [address] [address] 05/31/2014 08:48:25 05/31/2014 09:28:42 Disorder of nervous 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 128194915 Disorder of nail 82470576 [id number] Pao Donohue [facility], [address] [address] 08/02/2014 09:17:07 08/02/2014 09:59:15 Disorder of nervous 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 271965890 Disorder of nail 49992041 [id number] Tere Jacobo [facility], [place] [address] 10/04/2014 10:10:29 11/08/2014 14:34:50 Disorder of nervous 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 438482920 Disorder of nail 13944388 [id number] Renee Mckay [facility], [address] [address] 12/08/2014 13:41:30 12/08/2014 14:06:58 Disorder of nervous 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 999958770 Disorder of nail 26181214 [id number] Kimber Ferguson DPM Podiatry, [address] [address] 02/09/2015 11:17:13 02/09/2015 11:50:58 Disorder of nervous 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 449570924 Disorder of nail 22056986 [id number] Christal Matson [facility], [address] [address] 04/13/2015 11:33:27 04/13/2015 14:25:00 Disorder of nervous 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 106873200 E11.49 Hypertrophy of nail 3065 4002 L60.2 [place] 00 L84 [id number] Kimber Ferguson DPM Podiatry, [address] [address] 06/15/2015 11:26:17 06/15/2015 11:52:44 Disorder of nervous 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 962317363 E11.49 Hypertrophy of nail 3065 4002 L60.2 [place] 4317592 00 L84 [id number] Kimber Ferguson DPM Podiatry, [address] [address] 08/24/2015 11:24:07 08/24/2015 12:03:54 Disorder of nervous 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 406127123 E11.49 Hypertrophy of nail 3065 4002 L60.2 [place] 3892485 00 L84 [id number] Kimber Ferguson DPM Podiatry, [address] [address] 11/02/2015 11:21:07 11/02/2015 11:52:06 Disorder of nervous 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 335228807 E11.49 Disorder of nail 5834387 8 L60.9 [place] 6252674 00 L84 [id number] Kimber Ferguson DPM Podiatry, [address] [address] 01/04/2016 11:38:07 01/04/2016 12:34:53 Disorder of nervous 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 057289122 E11.49 Disorder of nail 1595547 8 L60.9 [place] 8980059 00 L84 [id number] Kimber Ferguson DPM Podiatry, [address] [address] 03/05/2016 09:49:57 03/05/2016 10:12:20 Disorder of nervous 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 024118115 E11.49 [place] 0661155 00 L84 Hypertrophy of nail 3065 4002 L60.2 [id number] Kimber Ferguson DPM Podiatry, [address] [address] 05/07/2016 09:53:16 05/07/2016 10:54:12 Hypertrophy of nail 69633041 L60.2 Disorder o f nervous 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 142756031 E11.49 [place] 7927152 00 L84 [id number] Kimber Ferguson DPM Podiatry, [address] [address] 07/16/2016 12:23:39 07/16/2016 13:53:52 Disorder of nervous 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 664601296 E11.49 [place] 2742155 00 L84 Hypertrophy of nail 3065 4002 L60.2 [id number] Kimber Ferguson DPM Podiatry, [address] [address] 09/10/2016 10:23:26 09/10/2016 10:56:43 Disorder of nervous 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 [id number] E11.49 Corns and callus 8482263 00 L84 Hypertrophy of nail 3065 4002 L60.2 [id number] Kimber Ferguson DPM Podiatry, [address] [address] 11/12/2016 10:46:15 11/12/2016 11:19:30 Disorder of nervous 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 768137011 E11.49 Corns and callus 3552411 00 L84 Hypertrophy of nail 3065 4002 L60.2 [id number] Kimber Ferguson DPM Podiatry, [address] [address] 01/21/2017 10:43:51 01/21/2017 11:09:42 Disorder of nervous 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 447886183 E11.49 Corns and callus [id number] 00 L84 Hypertrophy of nail 3065 4002 L60.2 [id number] Nelly Ramirez, OD Eye Care, [facility] [address] [place] [address] 03/04/2017 13:10:52 03/04/2017 14:34:10 Presbyopia 36829932 H52.4 Glaucoma suspect 3031240 08 H40.011 2' optic nerve appearance . IOP wnl, RTC for further testing. Type 2 leticia betes mellitus without complication 442941992 E11.9 No diabetic retinopath y OU. pt ed on importance of good blood sugar control, monitor 1 yr with CEE [id number] Kimber Ferguson DPM Podiatry, [address] [address] 03/25/2017 10:30:12 03/25/2017 11:29:16 Disorder of nervous 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 444877867 E11.49 Corns and callus 8905945 00 L84 Hypertrophy of nail 3065 4002 L60.2 [id number] Nelly Ramirez, OD Eye Care, [address] [address] 05/06/2017 10:25:50 05/06/2017 12:35:42 Glaucoma suspect [id number] H40.011 2' optic nerve appearance . OCT revealed OD: wnl, OS: borderline segment I/T. IOP wnl (ranges 16-17), CCT avg OU, VF were unreliable and need to be repeated. pt ed on findings and glaucoma. continue to observe for now. RTC 3 months for HVF 24-2ss, IOP check, OCT. [id number] Kimber Ferguson DPM Podiatry, [address] [address] 06/03/2017 11:03:35 06/03/2017 11:54:17 Disorder of nervous 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 675937226 E11.49 Corns and callus [id number] 00 L84 Hypertrophy of nail 3065 4002 L60.2 [id number] Nelly Ramirez, OD Eye Care, [address] [address] 08/05/2017 13:00:01 08/05/2017 14:29:13 Glaucoma suspect [id number] H40.011 2' optic nerve appearance . Baseline OCT on 05/06/17 revealed OD: wnl, OS: borderline segment I/T. IOP wnl (ranges 16-18), CCT avg OU, VF were unreliable x 2. +Diabetes. pt ed on findings and glaucoma. Refer to ophthalmol ogy for eval. [id number] Kimber Ferguson DPM Podiatry, [address] [address] 08/26/2017 14:43:08 08/26/2017 15:31:16 Disorder of nervous 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 838917985 E11.49 Corns and callus 4248435 L84 Hypertrophy of nail 3065 4002 L60.2 [id number] Kimber Ferguson DPM Podiatry, [address] [address] 11/19/2017 14:10:42 11/19/2017 14:42:40 Disorder of nervous 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 982498901 E11.49 Corns and callus 9525032 L84 Hypertrophy of nail 3065 4002 L60.2 [id number] Nelly Ramirez, OD Eye Care, [facility] [address] [place] [address] 03/09/2018 10:17:41 03/09/2018 11:14:52 Presbyopia 33805571 H52.4 Glaucoma suspect 0470292 08 H40.011 2' optic nerve appearance . Baseline OCT on 05/06/17 revealed OD: wnl, OS: borderline segment I/T. IOP wnl (ranges 16-18), CCT avg OU, VF were unreliable x 2. +Diabetes. saw ophthalmol ogist and recommende d observatio n. f/u 1 yr with CEE and OCT. Type 2 leticia betes mellitus without complication 081651930 E11.9 No diabetic retinopath y OU. pt ed on importance of good blood sugar control, monitor 1 yr with CEE Dry eyes 784427689 H04.1 29 pt ed. recommend hot compresses with lid massage 1-2 x per day and Artificial tears 2-4 x per day. [id number] Kimber Ferguson DPM Podiatry, [address] [address] 06/30/2018 10:07:36 06/30/2018 13:18:22 Disorder of nervous 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 696196657 E11.49 Corns and callus 0498350 L84 Hypertrophy of nail 3065 4002 L60.2 [id number] Kimber Ferguson DPM Podiatry, [address] [address] 09/01/2018 10:30:01 09/01/2018 11:23:42 Disorder of nervous 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 494786317 E11.49 Corns and callus [id number] 00 L84 Hypertrophy of nail 3065 4002 L60.2 [id number] Kimber Ferguson DPM Podiatry, [address] [address] 11/03/2018 10:42:18 11/03/2018 11:55:21 Disorder of nervous 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 652693208 E11.49 Corns and callus 3507322 00 L84 Hypertrophy of nail 3065 4002 L60.2 [id number] Kimber Ferguson DPM Podiatry, [address] [address] 01/19/2019 10:50:16 01/19/2019 11:35:02 Disorder of nervous 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 453881601 E11.49 Corns and callus 9617962 00 L84 Hypertrophy of nail 3065 4002 L60.2 [id number] Kimber Ferguson DPM Podiatry, [address] [address] 03/23/2019 10:46:15 03/23/2019 11:58:20 Disorder of nervous 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 574601952 E11.49 Corns and callus 0535613 00 L84 Hypertrophy of nail 3065 4002 L60.2 [id number] Kimber Ferguson DPM Podiatr, [address] [address] 06/15/2019 10:42:18 06/15/2019 11:36:52 Disorder of nervous 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 292493364 E11.49 Corns and callus 2755844 00 L84 Hypertrophy of nail 3065 4002 L60.2 [id number] Kimber Ferguson DPM Podiatry, [address] [address] 06/07/2020 10:45:17 06/07/2020 11:22:58 Disorder of nervous 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 065843506 E11.49 Corns and callus 5470936 00 L84 Hypertrophy of nail 3065 4002 L60.2 [id number] Kimber Ferguson DPM Podiatry, [address] [address] 09/05/2020 10:47:47 09/05/2020 11:20:29 Disorder of nervous 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 975529164 E11.49 Corns and callus 7612240 00 L84 Hypertrophy of nail 3065 4002 L60.2 [id number] Kimber Ferguson DPM Podiatry, [address] [address] 11/07/2020 09:53:47 11/07/2020 10:18:53 Disorder of nervous 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 997977231 E11.49 Corns and callus [id number] 00 L84 Hypertrophy of nail 3065 4002 L60.2 [id number] Nelly Ramirez, OD Eye Care, [address] [address] 12/05/2020 09:41:52 12/05/2020 14:10:35 Presbyopia 94778007 H52.4 Glaucoma suspect 0551805 08 H40.011 2' optic nerve appearance . IOP wnl (ranges 16-18), CCT avg OU, VF were unreliable x 2. +Diabetes. saw ophthalmol ogist in the past and recommende d observatio n. unable to obtain clear OCT today, baseline photos. refer back to ophthalmol ogist. Type 2 leticia betes mellitus without complication 666753210 E11.9 No diabetic retinopath y OU. pt ed on importance of good blood sugar control, monitor 1 yr with CEE Dry eyes 029658994 H04.1 29 pt ed. recommend lid scrub qd, Artificial tears 2-4 x per day. [id number] Kimber Ferguson DPM Podiatry, [address] [address] 01/09/2021 09:02:38 01/09/2021 09:38:05 Disorder of nervous 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 832830121 E11.49 Corns and callus 1723548 00 L84 Hypertrophy of nail 3065 4002 L60.2 [id number] Kimber Ferguson DPM Podiatry, [address] [address] 03/20/2021 09:15:35 03/20/2021 09:53:26 Disorder of nervous 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 247639013 E11.49 Tendinitis of right posterior tibial tendon 0835147444 05064 M76.089 [id number] Kimber Ferguson DPM Podiatry, [address] [address] 01/16/2022 10:54:00 01/16/2022 17:22:29 Disorder of nervous 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 846981775 E11.49 Corns and callus 2742763 L84 Hypertrophy of nail 3065 4002 L60.2 [id number] Nelly Ramirez, OD Eye Care, [address] [address] 2022 15:28:35 04/01/2022 14:47:01 Presbyopia 60970640 H52.4 Glaucoma suspect 6340245 08 H40.011 2' optic nerve appearance . IOP wnl (ranges 16-18), CCT avg OU, VF were unreliable x 2. +Diabetes. saw ophthalmol ogist in the past and recommende d observatio n. unable to obtain OCT today, refer back to ophthalmol ogist. Type 2 leticia betes mellitus without complication 751451457 E11.9 No diabetic retinopath y OU. pt ed on importance of good blood sugar control, monitor 1 yr with CEE Dry eyes 678845011 H04.1 29 pt ed. recommend lid scrub qd, Artificial tears 2-4 x per day. Hypermetropia 06022471 H 52.03 [id number] Kimber Ferguson DPM Podiatry, [address] [address] 04/03/2022 11:27:25 04/03/2022 12:09:15 Disorder of nervous 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 282489589 E11.49 Corns and callus 5242333 L84 Hypertrophy of nail 3065 4002 L60.2 [id number] Kimber Ferguson DPM Podiatry, [address] [address] 06/18/2022 11:43:50 06/18/2022 12:11:45 Disorder of nervous 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 026760050 E11.49 Corns and callus 8499490 00 L84 Hypertrophy of nail 3065 4002 L60.2 [id number] Kimber Ferguson DPM Podiatry, [address] [address] 08/27/2022 11:44:12 08/27/2022 12:30:53 Disorder of nervous 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 982120006 E11.49 Corns and callus 3553360 00 L84 Hypertrophy of nail 3065 4002 L60.2 [id number] Kimber Ferguson DPM Podiatry, [address] [address] 04/08/2023 11:49:54 04/08/2023 12:11:04 Disorder of nervous 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 748521969 E11.49 Corns and callus 7163935 00 L84 Hypertrophy of nail 3065 4002 L60.2 [id number] Nelly Ramirez, OD Eye Care, [address] [address] 06/16/2023 15:46:20 06/18/2023 14:17:09 Presbyopia 14789358 H52.4 Glaucoma suspect 1638027 08 H40.011 2' optic nerve appearance . IOP wnl (ranges 16-18), CCT avg OU, VF were unreliable x 2. +Diabetes. saw ophthalmol ogist in the past and recommende d observatio n. unable to obtain OCT or photo or gonioscopy today, refer back to ophthalmol ogist. Type 2 leticia betes mellitus without complication 134563012 E11.9 No diabetic retinopath y OU to extent seen. pt ed on importance of good blood sugar control, monitor 1 yr with CEE Dry eyes 784736650 H04.1 29 pt ed. recommend lid scrub qd, Artificial tears 2-4 x per day. Hypermetropia 47299288 H 52.03 Narrow angle 049505513 H 40.345 [id number] Kimber Ferguson DPM Podiatry, [address] [address] 06/17/2023 11:03:33 06/17/2023 11:55:06 Disorder of nervous 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 738453460 E11.49 Corns and callus [id number] 00 L84 Hypertrophy of nail 3065 4002 L60.2 [id number] Kimber Ferguson DPM Podiatry, [facility] [address] [place] [address] 10/22/2023 09:00:41 10/22/2023 10:10:22 Disorder of nervous 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 619523970 E11.49 Corns and callus 1428292 L84 Hypertrophy of nail 3065 4002 L60.2 Health Concerns Section Related Observation LastModified by Organization Detai ls LastModified Time None Recorded Concern Status LastModified by Organization Details LastModified Time None Recorded Advance Directives Directive None Recorded Payers Encounter Date Sequence Insurance Name Policy Number Policy Quiles Covered Member ID Quiles Member ID Guarantor Name 08/27/2022 2 () Zuleyma A [place] [id number] Zuleyma Madison 08/27/2022 1 [place] [employer] Zuleyma A [place] [id number] Zuleyma Madison 04/08/2023 2 () Zuleyma A [place] [id number] Zuleyma Madison 04/08/2023 1 [place] [employer] Zuleyma A [place] [id number] Zuleyma Madison 06/16/2023 2 () Zuleyma A [place] [id number] Zuleyma Madison 06/16/2023 1 [place] [employer] Zuleyma A [place] [id number] Zuleyma Madison 06/17/2023 2 () Zuleyma A [place] [id number] Zuleyma Madison 06/17/2023 1 [place] [employer] Zuleyma A [place] [id number] Zuleyma Madison 10/22/2023 2 () Zuleyma A [place] [id number] Zuleyma Madison 10/22/2023 1 [place] [facility] Zuleyma Gutierrez [id number] Zuleyma Gutierrez Notes Date Note Type Note Provider Name and Address Organization Details Recorded Time 08/27/2022 text/html Patient with type 2 diabetes mellitus with peripheral neuropathy returns to the office for evaluation and at risk foot care. Patient complains of thick toenails as well as calluses that she's not able to care for herself. Patient has no complaints of open wound or drainage. Patient seen by Doris brock RN on 08/22/22. Kimber Ferguson DPM [address] [place] [address], [phone], [facility] 08/27/2022 12:10:25 04/08/2023 text/html Patient with type 2 diabetes mellitus with peripheral neuropathy returns to the office for evaluation and at risk foot care. Patient complains of thick toenails as well as calluses that she's not able to care for herself. Patient has no complaints of open wound or drainage. Patient seen by Armaan Sharma NP on 03/24/23. Kimber Ferguson DPM [address] [place] [address], [phone], [facility] 04/08/2023 12:10:00 06/16/2023 text/html c/o blurry vision, distance and near, with tearing, no eye pain. has spots in vision. type 2 DM, PCP is Dr. Jacobs in [place], last A1C unknown Nelly Ramirez, OD [address] [place], [address], [facility] 06/16/2023 16:46:48 06/17/2023 text/html Patient with type 2 diabetes mellitus with peripheral neuropathy returns to the office for evaluation and at risk foot care. Patient complains of thick toenails as well as calluses that she's not able to care for herself. Patient without any complaints of open wound or drainage. Patient seen by Armaan Sharma NP on 03/24/23. Kimber Ferguson DPM [address] [place] [address], [phone], [facility] 06/17/2023 11:49:30 10/22/2023 text/html Patient with type 2 diabetes mellitus with peripheral neuropathy returns to the office for evaluation and at risk foot care. Patient complains of thick toenails as well as calluses that she's not able to care for herself. Patient without any complaints of open wound or drainage. Patient seen by Pablo Denny MD on 08/02/23. Kimber Ferguson DPM [address] [place] [address], [phone], [facility] 10/22/2023 09:45:07 OBGyn Episode No OBEpisode recorded.
== END 2024-07-06 09:59 | disposition home or self-care (01) ==
LOC: HO.XRAY 09:58
PROVIDERS: PCP Internal Medicine
DX: K21.9 Gastro-esophageal reflux disease without esophagitis (principal); E11.40 Type 2 diabetes mellitus with diabetic neuropathy, unspecified; E11.65 Type 2 diabetes mellitus with hyperglycemia; I10 Essential (primary) hypertension; J45.909 Unspecified asthma, uncomplicated; M79.672 Pain in left foot; S92.355A Nondisplaced fracture of fifth metatarsal bone, left foot, initial encounter for closed fracture; L03.818 Cellulitis of other sites; F41.1 Generalized anxiety disorder
CPT/HCPCS: 73620; 96127; 99212

== ENCOUNTER → 2024-07-06 11:12 | Outpatient (BNV) | payer MEDICARE, OTHER, SELFPAY | PROVIDERS: PCP Internal Medicine; Visit Provider Radiology Diagnostic Radiology | DX: M79.672 Pain in left foot (principal) | CPT/HCPCS: 73620 ==

== ENCOUNTER 2024-07-08 09:59 | Outpatient (REF) | payer MEDICARE, OTHER, SELFPAY ==
--- OUTSIDE RECORDS SUMMARY | 2024-07-08 10:10 | XMS_ITS | Continuity of Care Document ---
Author Organization [facility] Address [address] [address] Phone Care Team Providers Care Sapphire Stylus Grinder Name Role Phone Anton Jean Baptiste DO Unavailable Unavailable Advance Directives Directive Yes / No Effective Date File Name No Information Encounters Encounter Description Practice Location Reason(s) For Visit Diagnoses Date Provider Providers Copied on Encounter [facility], [address], [id number], [place] tel:[phone] [place] No Information 0 Markel Walton. [address] [place], [place], [id number] , [place]. tel:[phone] Family History Family Member Type Diagnosis Age [...]
--- OUTSIDE RECORDS SUMMARY | 2024-07-08 10:10 | XMS_ITS | Data Portability ---
Author Organization [facility], [facility] Address [address] [place] [address] Care Team Providers Care Hand Molder Name Role Phone BETYALYSSA Primary Care Provider KIMBER FERGUSON Pr Intern JEISON RAMIREZ [employer] Production Specialist Assessment Encounter Date Assessment Date Assessment LastModified by Organization Details LastModified Time 08/27/2022 08/27/2022 Type 2 diabetes mellitus with peripheral neuropathy, dystrophic toenails, hyperkeratotic lesions jerskine Not available 08/27/2022 12:08:41 04/08/2023 04/08/2023 Type 2 diabetes mellitus with peripheral neuropathy, dystrophic toenails, hyperkeratotic lesions jerskine Not available 04/08/2023 12:08:15 06/16/2023 06/16/2023 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 2023 024 [email or web address] [facility], [address] [place], [address], 06/23/2023 14:46:35 Procedures None recorded. Surgeries None recorded. Imaging None recorded. Medication Orders None recorded. Patient TargetsNo targets recorded. Patient Instructions Encounter Date Encounter Id Patient Instructions Last Modified By Organization Details Last Modified Time 08/27/2022 [id number] Patient to retur n in 9 weeks for foot care to reduce risk of complications associated with type 2 diabetes mellitus with peripheral neuropathy. jerskine Not available 08/27/2022 12:08:41 04/08/2023 [id number] Patient to retur n in 9 weeks for foot care to reduce risk of complications associated with type 2 diabetes mellitus with peripheral neuropathy. jerskine Not available 04/08/2023 12:08:15 06/16/2023 [id number] attempted gonioscopy today, patient unable to keep eyes open. will refer back to Dr. ingram. jmandile Not available 06/16/2023 16:45:37 06/17/2023 [id number] Patient to retur n in 9 weeks for foot care to reduce risk of complications associated with type 2 diabetes mellitus with peripheral neuropathy. jerskine Not available 06/17/2023 11:48:06 10/22/2023 [id number] Patient to retur n in 9 weeks for foot care to reduce risk of complications associated with type 2 diabetes mellitus with peripheral neuropathy. jerskine Not available 10/22/2023 09:43:46 Reason for Referral Property Insurance Inspector Referral for Narrow angle narrow angle, blurry vision, cataracts, glaucoma suspect. Referring Physician: Nelly Ramirez, Optometry, Encounter Date: 06/16/2023 Problems Name Problem SNOMED Code Status Onset Date Resolution Date Notes Provider Name and Address Organization Details Recorded Time Diabetes mellitus 41410607 Active 2016 VICKI Campbell [facility] 7 15:01:40 Hypertens hernán disorder 72800920 Active 2016 VICKI Campbell [facility] 7 15:02:05 Hyperchol esterolem ia 93730353 Active 2016 VICKI Campbell [facility] 7 15:02:42 Vitamin B12 level below reference range 233120787 [facility] History of transient ischemic attack 376572490 [facility] 15:19:34 Insomnia 854020886 [facility] 15:19:49 Anxiety 35800208 [facility] 16:11:46 Mass of pancreas 703366170 [facility] 16:12:12 Degenerat ion of intervert ebral disc 59552280 [facility] 16:13:58 Asthma 125809965 Active [facility] 16:14:15 Renal artery stenosis 945123452 [facility] 16:14:41 Diarrheal disorder 144583365 [facility] 16:16:15 Obesity 749484762 Completed 201611/02/2020 Removal Reason: BMI > or = 35 plus other comorbid ities. MIKE Montalvo [facility] 1 06:00:34 Morbid obesity 892898977 Active 2020 BMI > or = 35 plus other comorbid ities. MIKE Montalvo [facility] 1 06:00:43 Disorder of nervous 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 628719147 Active 2020 coded 09/05/20 Podiatry . MIKE Montalvo [facility] 06:02:58 Problem Notes None recorded. Procedures Surgical History Date Name Laterality Status Provider Name and Address Organization Details Recorded Time 06/16/19 24 Refraction completed Nelly Ramirez, OD [address] [place], [address], [facility] 06/16/2023 16:41:05 03/29/20 22 Refraction completed Nelly Ramirez, OD [address] [place], [address], [facility] 2022 17:28:54 12/06/19 21 Fundus Photography completed Nelly Ramirez, OD [address] [place], [address], [facility] 12/05/2020 13:46:33 12/06/19 21 Refraction completed Wanda Darnell [facility] 12/05/2020 10:52:45 03/09/20 18 Refraction completed [facility] 03/09/2018 10:41:18 08/06/19 18 Visual field comprehensive completed Nelly Ramirez, OD [address] [place], [address], [facility] 08/07/2017 10:31:26 05/06/20 17 Pachymetry completed [facility] 05/06/2017 11:53:13 05/06/20 17 Visual field comprehensive completed [facility] 05/06/2017 11:52:41 05/06/20 17 Optical Coherence Tomography (Optic Nerve) completed [facility] 05/06/2017 11:52:37 03/04/20 17 Refraction completed [facility] 03/04/2017 13:39:17 Imaging Results None recorded. Procedure Notes None recorded. Medical Equipment None Reported. Allergies Allergen ID Allergen Name Allergen Category Reaction Reaction Severity Criticality Documentation Date Start Date Code Code System Note Provider Name and Address Organization Details Recorded Time 739556 salicylic acid medicatio n Not available Not available Not available 03/09/2013 9525 RxNorm [facility] 10:05:07 297191 Celebrex medicatio n Not available Not available Not available 03/09/2013 42683 7 [facility] 3 10:05:07 455261 Actonel medicatio n Not available Not available Not available 03/09/2013 58347 3 RxNorm Bleed ing Wanda Rea CMA null, [facility] 3 10:05:07 799279 Substance with sulfonami de structure and antibacte rial mechanism of action (substanc e) medicatio n other Not available Not available 06/07/2020 67064 8003 SNOMED lose s mind Qian Morton [facility], [facility] 1 10:53:29 375405 aspirin medicatio n Not available Not available Not available 12/05/2020 1191 RxNorm Wanda Dildine [facility], [facility] 1 10:31:13 Medications Name Sig Start Date [...] cm 92 /min 102 mm[Hg] 64 mm[Hg] [facility] 08/27/2022 11:54:19 Date Recorded Body height Provider Name an d Address Organization Details Last Updated DateTime 06/17/2023 147.32 cm [facility] 06/17/2023 11:14:13 Date Recorded Body height Provider Name an d Address Organization Details Last Updated DateTime 10/22/2023 147.32 cm [facility] 10/22/2023 09:20:46 Social History Question Answer Notes LastModified by Organizat ion Details LastModified Time Tobacco Smoking Status Former Smoker quit 15 years ago [facility] 03/09/2013 10:03:25 When Did You Quit Smoking? 16+yearssin danica [email or web address] Information not available 03/20/2021 What Was The Date Of Your Most Recent Tobacco Screening? 03/20/2021 [email or web address] Information not available 03/20/2021 Do You Or Have You Ever Used Any Other Forms Of Tobacco Or Nicotine? No [email or web address] Information not available 01/09/2021 Sex: Unknown Functional Status None recorded. Mental Status None recorded. Family History Nothing Reported. Medical History No medical history recorded. Gynecological HistoryNo gynecological history recorded. Obstetrics History GPAL:G 0 P 0 0 0 0 Past Encounters Encounter ID Performer Location Encounter Start Date Encounter Closed Date Diagnosis/Indication Diagnosis SNOMED-CT Code Diagnosis ICD10 Code Diagnosis Note [id number] Kimber Ferguson DPM Podiatry, [facility] [address] [place] [address] 03/09/2013 09:22:50 03/09/2013 10:30:31 Disorder of nervous 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 466008032 Corns and callus 156694713 Disorder of nail 80096715 [id number] [facility], [address] [address] 04/27/2013 10:25:59 04/27/2013 10:48:29 Disorder of nervous 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 212557714 [place]s and callus 208123718 Disorder of nail 98698704 [id number] Melanie Delgado [facility], [address] [address] 06/29/2013 10:07:01 06/29/2013 10:32:54 Disorder of nervous 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 102228332 [place]s and callus 594625038 Disorder of nail 06786551 [id number] Pao Donohue [facility], [address] [address] 08/31/2013 09:24:47 08/31/2013 10:06:39 Disorder of nervous 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 343410668 Corns and callus 734185645 Disorder of nail 89048619 [id number] Chritsal Matson [facility], [address] [address] 11/09/2013 08:16:40 11/09/2013 11:01:36 Disorder of nervous 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 851219575 Corns and callus 002614941 Disorder of nail 34042097 [id number] Kimber Ferguson DPM Podiatry, [address] [address] 01/18/2014 08:30:34 01/18/2014 09:14:28 Disorder of nervous 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 500655725 Corns and callus 570181465 Disorder of nail 84562326 [id number] Flavia Webb [facility], [address] [address] 03/22/2014 09:19:47 03/22/2014 10:18:39 Disorder of nervous 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 159401698 Corns and callus 132021402 Disorder of nail 04520027 [id number] Kimber eFrguson DPM Podiatry, [address] [address] 05/31/2014 08:48:25 05/31/2014 09:28:42 Disorder of nervous 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 879009147 Disorder of nail 45397676 [id number] Pao Donohue [facility], [address] [address] 08/02/2014 09:17:07 08/02/2014 09:59:15 Disorder of nervous 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 398904450 Disorder of nail 17216027 [id number] Tere Jacobo [facility], [place] [address] 10/04/2014 10:10:29 11/08/2014 14:34:50 Disorder of nervous 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 323513606 Disorder of nail 08922940 [id number] Renee Mckay [facility], [address] [address] 12/08/2014 13:41:30 12/08/2014 14:06:58 Disorder of nervous 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 310892698 Disorder of nail 42619051 [id number] Kimber Ferguson DPM Podiatry, [address] [address] 02/09/2015 11:17:13 02/09/2015 11:50:58 Disorder of nervous 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 750204062 Disorder of nail 94671606 [id number] Christal Matson [facility], [address] [address] 04/13/2015 11:33:27 04/13/2015 14:25:00 Disorder of nervous 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 786883104 E11.49 Hypertrophy of nail 3065 4002 L60.2 Corns and callus 00 L84 [id number] Kimber Ferguson DPM Podiatry, [address] [address] 06/15/2015 11:26:17 06/15/2015 11:52:44 Disorder of nervous 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 964639304 E11.49 Hypertrophy of nail 3065 4002 L60.2 Corns and callus 7062938 00 L84 [id number] Kimber Ferguson DPM Podiatry, [address] [address] 08/24/2015 11:24:07 08/24/2015 12:03:54 Disorder of nervous 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 110512343 E11.49 Hypertrophy of nail 3065 4002 L60.2 Corns and callus 3398533 00 L84 [id number] Kimber Ferguson DPM Podiatry, [address] [address] 11/02/2015 11:21:07 11/02/2015 11:52:06 Disorder of nervous 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 489096145 E11.49 Disorder of nail 4318711 8 L60.9 Corns and callus 5928635 00 L84 [id number] Kimber Ferguson DPM Podiatry, [address] [address] 01/04/2016 11:38:07 01/04/2016 12:34:53 Disorder of nervous 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 740743032 E11.49 Disorder of nail 4269493 8 L60.9 Corns and callus 3571921 00 L84 [id number] Kimber Ferguson DPM Podiatry, [address] [address] 03/05/2016 09:49:57 03/05/2016 10:12:20 Disorder of nervous 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 417831300 E11.49 Corns and callus 1000691 00 L84 Hypertrophy of nail 3065 4002 L60.2 [id number] Kimber Ferguson DPM Podiatry, [address] [address] 05/07/2016 09:53:16 05/07/2016 10:54:12 Hypertrophy of nail 32785609 L60.2 Disorder o f nervous 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 981939246 E11.49 Corns and callus 1959709 00 L84 [id number] Kimber Ferguson DPM Podiatry, [address] [address] 07/16/2016 12:23:39 07/16/2016 13:53:52 Disorder of nervous 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 488009255 E11.49 Corns and callus 8823286 00 L84 Hypertrophy of nail 3065 4002 L60.2 [id number] Kimber Ferguson DPM Podiatry, [address] [address] 09/10/2016 10:23:26 09/10/2016 10:56:43 Disorder of nervous 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 281862439 E11.49 Corns and callus 9267723 00 L84 Hypertrophy of nail 3065 4002 L60.2 [id number] Kimber Ferguson DPM Podiatry, [address] [address] 11/12/2016 10:46:15 11/12/2016 11:19:30 Disorder of nervous 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 213406405 E11.49 Corns and callus 4784616 00 L84 Hypertrophy of nail 3065 4002 L60.2 [id number] Kimber Ferguson DPM Podiatry, [address] [address] 01/21/2017 10:43:51 01/21/2017 11:09:42 Disorder of nervous 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 748080576 E11.49 Corns and callus [id number] 00 L84 Hypertrophy of nail 3065 4002 L60.2 [id number] Nelly Ramirez, OD Eye Care, [facility] [address] [place] [address] 03/04/2017 13:10:52 03/04/2017 14:34:10 Presbyopia 71363381 H52.4 Glaucoma suspect 7618768 08 H40.011 2' optic nerve appearance . IOP wnl, RTC for further testing. Type 2 leticia betes mellitus without complication 834651395 E11.9 No diabetic retinopath y OU. pt ed on importance of good blood sugar control, monitor 1 yr with CEE [id number] Kimber Ferguson DPM Podiatry, [address] [address] 03/25/2017 10:30:12 03/25/2017 11:29:16 Disorder of nervous 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 153123478 E11.49 Corns and callus 3483777 00 L84 Hypertrophy of nail 3065 4002 L60.2 [id number] Nelly Ramirez, OD Eye Care, [address] [address] 05/06/2017 10:25:50 05/06/2017 12:35:42 Glaucoma suspect 719045747 H40.011 2' optic nerve appearance . OCT revealed OD: wnl, OS: borderline segment I/T. IOP wnl (ranges 16-17), CCT avg OU, VF were unreliable and need to be repeated. pt ed on findings and glaucoma. continue to observe for now. RTC 3 months for HVF 24-2ss, IOP check, OCT. [id number] Kimber Ferguson DPM Podiatry, [address] [address] 06/03/2017 11:03:35 06/03/2017 11:54:17 Disorder of nervous 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 344360699 E11.49 Corns and callus 7539434 00 L84 Hypertrophy of nail 3065 4002 L60.2 [id number] Nelly Ramirez, OD Eye Care, [address] [address] 08/05/2017 13:00:01 08/05/2017 14:29:13 Glaucoma suspect 227697450 H40.011 2' optic nerve appearance . Baseline OCT on 05/06/17 revealed OD: wnl, OS: borderline segment I/T. IOP wnl (ranges 16-18), CCT avg OU, VF were unreliable x 2. +Diabetes. pt ed on findings and glaucoma. Refer to ophthalmol ogy for eval. [id number] Kimber Ferguson DPM Podiatry, [address] [address] 08/26/2017 14:43:08 08/26/2017 15:31:16 Disorder of nervous 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 480304360 E11.49 Corns and callus 2971738 L84 Hypertrophy of nail 3065 4002 L60.2 [id number] Kimber Ferguson DPM Podiatry, [address] [address] 11/19/2017 14:10:42 11/19/2017 14:42:40 Disorder of nervous 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 783810964 E11.49 Corns and callus 2096627 L84 Hypertrophy of nail 3065 4002 L60.2 [id number] Nelly Ramirez, OD Eye Care, [facility] [address] [place] [address] 03/09/2018 10:17:41 03/09/2018 11:14:52 Presbyopia 21018098 H52.4 Glaucoma suspect 6946354 08 H40.011 2' optic nerve appearance . Baseline OCT on 05/06/17 revealed OD: wnl, OS: borderline segment I/T. IOP wnl (ranges 16-18), CCT avg OU, VF were unreliable x 2. +Diabetes. saw ophthalmol ogist and recommende d observatio n. f/u 1 yr with CEE and OCT. Type 2 leticia betes mellitus without complication 106300833 E11.9 No diabetic retinopath y OU. pt ed on importance of good blood sugar control, monitor 1 yr with CEE Dry eyes 009831155 H04.1 29 pt ed. recommend hot compresses with lid massage 1-2 x per day and Artificial tears 2-4 x per day. [id number] Kimber Ferguson DPM Podiatry, [address] [address] 06/30/2018 10:07:36 06/30/2018 13:18:22 Disorder of nervous 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 687550959 E11.49 Corns and callus 8216908 L84 Hypertrophy of nail 3065 4002 L60.2 [id number] Kimber Ferguson DPM Podiatry, [address] [address] 09/01/2018 10:30:01 09/01/2018 11:23:42 Disorder of nervous 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 223893039 E11.49 Corns and callus 3191738 00 L84 Hypertrophy of nail 3065 4002 L60.2 [id number] Kimber Ferguson DPM Podiatry, [address] [address] 11/03/2018 10:42:18 11/03/2018 11:55:21 Disorder of nervous 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 041968916 E11.49 Corns and callus 5061328 00 L84 Hypertrophy of nail 3065 4002 L60.2 [id number] Kimber Ferguson DPM Podiatry, [address] [address] 01/19/2019 10:50:16 01/19/2019 11:35:02 Disorder of nervous 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 819798610 E11.49 Corns and callus 2446536 00 L84 Hypertrophy of nail 3065 4002 L60.2 [id number] Kimber Ferguson DPM Podiatry, [address] [address] 03/23/2019 10:46:15 03/23/2019 11:58:20 Disorder of nervous 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 520121161 E11.49 Corns and callus 3554358 00 L84 Hypertrophy of nail 3065 4002 L60.2 [id number] Kimber Ferguson DPM Podiatr, [address] [address] 06/15/2019 10:42:18 06/15/2019 11:36:52 Disorder of nervous 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 489184817 E11.49 Corns and callus 8262206 00 L84 Hypertrophy of nail 3065 4002 L60.2 [id number] Kimber Ferguson DPM Podiatry, [address] [address] 06/07/2020 10:45:17 06/07/2020 11:22:58 Disorder of nervous 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 981792260 E11.49 Corns and callus 6927851 00 L84 Hypertrophy of nail 3065 4002 L60.2 [id number] Kimber Ferguson DPM Podiatry, [address] [address] 09/05/2020 10:47:47 09/05/2020 11:20:29 Disorder of nervous 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 128036317 E11.49 Corns and callus 1171654 00 L84 Hypertrophy of nail 3065 4002 L60.2 [id number] Kimber Ferguson DPM Podiatry, [address] [address] 11/07/2020 09:53:47 11/07/2020 10:18:53 Disorder of nervous 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 877386583 E11.49 Corns and callus 4395814 00 L84 Hypertrophy of nail 3065 4002 L60.2 [id number] Nelly Ramirez, OD Eye Care, [address] [address] 12/05/2020 09:41:52 12/05/2020 14:10:35 Presbyopia 87354776 H52.4 Glaucoma suspect 1111442 08 H40.011 2' optic nerve appearance . IOP wnl (ranges 16-18), CCT avg OU, VF were unreliable x 2. +Diabetes. saw ophthalmol ogist in the past and recommende d observatio n. unable to obtain clear OCT today, baseline photos. refer back to ophthalmol ogist. Type 2 leticia betes mellitus without complication 743023606 E11.9 No diabetic retinopath y OU. pt ed on importance of good blood sugar control, monitor 1 yr with CEE Dry eyes 351215608 H04.1 29 pt ed. recommend lid scrub qd, Artificial tears 2-4 x per day. [id number] Kimber Ferguson DPM Podiatry, [address] [address] 01/09/2021 09:02:38 01/09/2021 09:38:05 Disorder of nervous 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 303174801 E11.49 Corns and callus 6280864 00 L84 Hypertrophy of nail 3065 4002 L60.2 [id number] Kimber Ferguson DPM Podiatry, [address] [address] 03/20/2021 09:15:35 03/20/2021 09:53:26 Disorder of nervous 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 995348531 E11.49 Tendinitis of right posterior tibial tendon 4110938550 88486 M76.334 [id number] Kimber Ferguson DPM Podiatry, [address] [address] 01/16/2022 10:54:00 01/16/2022 17:22:29 Disorder of nervous 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 421983672 E11.49 Corns and callus 7676444 L84 Hypertrophy of nail 3065 4002 L60.2 [id number] Nelly Ramirez, OD Eye Care, [address] [address] 2022 15:28:35 04/01/2022 14:47:01 Presbyopia 75645570 H52.4 Glaucoma suspect 9305475 08 H40.011 2' optic nerve appearance . IOP wnl (ranges 16-18), CCT avg OU, VF were unreliable x 2. +Diabetes. saw ophthalmol ogist in the past and recommende d observatio n. unable to obtain OCT today, refer back to ophthalmol ogist. Type 2 leticia betes mellitus without complication 044563634 E11.9 No diabetic retinopath y OU. pt ed on importance of good blood sugar control, monitor 1 yr with CEE Dry eyes 170187338 H04.1 29 pt ed. recommend lid scrub qd, Artificial tears 2-4 x per day. Hypermetropia 27055566 H 52.03 [id number] Kimber Ferguson DPM Podiatry, [address] [address] 04/03/2022 11:27:25 04/03/2022 12:09:15 Disorder of nervous 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 941555630 E11.49 Corns and callus 7799894 L84 Hypertrophy of nail 3065 4002 L60.2 [id number] Kimber Ferguson DPM Podiatry, [address] [address] 06/18/2022 11:43:50 06/18/2022 12:11:45 Disorder of nervous 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 551367387 E11.49 Corns and callus 7469036 00 L84 Hypertrophy of nail 3065 4002 L60.2 [id number] Kimber Ferguson DPM Podiatry, [address] [address] 08/27/2022 11:44:12 08/27/2022 12:30:53 Disorder of nervous 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 806153837 E11.49 Corns and callus 5358047 00 L84 Hypertrophy of nail 3065 4002 L60.2 [id number] Kimber Ferguson DPM Podiatry, [address] [address] 04/08/2023 11:49:54 04/08/2023 12:11:04 Disorder of nervous 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 492550557 E11.49 Corns and callus 7807333 00 L84 Hypertrophy of nail 3065 4002 L60.2 [id number] Nelly Ramirez, OD Eye Care, [address] [address] 06/16/2023 15:46:20 06/18/2023 14:17:09 Presbyopia 06055743 H52.4 Glaucoma suspect 5216021 08 H40.011 2' optic nerve appearance . IOP wnl (ranges 16-18), CCT avg OU, VF were unreliable x 2. +Diabetes. saw ophthalmol ogist in the past and recommende d observatio n. unable to obtain OCT or photo or gonioscopy today, refer back to ophthalmol ogist. Type 2 leticia betes mellitus without complication 479657345 E11.9 No diabetic retinopath y OU to extent seen. pt ed on importance of good blood sugar control, monitor 1 yr with CEE Dry eyes 834288809 H04.1 29 pt ed. recommend lid scrub qd, Artificial tears 2-4 x per day. 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 674077882 E11.49 Corns and callus 3696925 L84 Hypertrophy of nail 3065 4002 L60.2 Health Concerns Section Related Observation LastModified by Organization Detai ls LastModified Time None Recorded Concern Status LastModified by Organization Details LastModified Time None Recorded Advance Directives Directive None Recorded Payers Encounter Date Sequence Insurance Name Policy Number Policy Quiles Covered Member ID Quiles Member ID Guarantor Name 08/27/2022 2 () Zuleyma A Currie [id number] Zuleyma Currie 08/27/2022 1 [place] [employer] Zuleyma A Currie [id number] Zuleyma Currie 04/08/2023 2 () Zuleyma A Currie [id number] Zuleyma Currie 04/08/2023 1 [place] [employer] Zuleyma A Currie [id number] Zuleyma Currie 06/16/2023 2 () Zuleyma A Currie [id number] Zuleyma Currie 06/16/2023 1 [place] [employer] [employer] [place] Zuleyma A Currie [id number] Zuleyma Currie 06/17/2023 2 () Zuleyma A Currie [id number] Zuleyma Currie 06/17/2023 1 [place] [employer] [place] Zuleyma A Currie [id number] Zuleyma Currie 10/22/2023 2 () Zuleyma A Currie [id number] Zuleyma Currie 10/22/2023 1 [place] [facility] Zuleyma Gutierrez [id number] Zuleyma Gutierrez Notes Date Note Type Note [...] brock RN on 08/22/22. Kimber Ferguson DPM [address] [place] [address], [phone], [facility] 08/27/2022 12:10:25 04/08/2023 text/html Patient with type 2 diabetes mellitus with peripheral neuropathy returns to the office for evaluation and at risk foot care. Patient complains of thick toenails as well as calluses that she's not able to care for herself. Patient has no complaints of open wound or drainage. Patient seen by Armaan Sharma NP on 03/24/23. Kimber Ferguson DPM [address] [place] [address], [phone], [facility] 04/08/2023 12:10:00 06/16/2023 text/html c/o blurry vision, distance and near, with tearing, no eye pain. has spots in vision. type 2 DM, PCP is Dr. Jacobs in [place], last A1C unknown Nelly Ramirez, OD [address] [place], [phone], [facility] 06/16/2023 16:46:48 06/17/2023 text/html Patient with type 2 diabetes mellitus with peripheral neuropathy returns to the office for evaluation and at risk foot care. Patient complains of thick toenails as well as calluses that she's not able to care for herself. Patient without any complaints of open wound or drainage. Patient seen by Armaan Sharma NP on 03/24/23. Kimber Ferguson DPM [address] [place] [address], [phone], [facility] 06/17/2023 11:49:30 10/22/2023 text/html Patient with type 2 diabetes mellitus with peripheral neuropathy returns to the office for evaluation and at risk foot care. Patient complains of thick toenails as well as calluses that she's not able to care for herself. Patient without any complaints of open wound or drainage. Patient seen by Pablo Denny MD on 08/02/23. Kimber Ferguson DPM [address] [place] [address], [phone], [facility] 10/22/2023 09:45:07 OBGyn Episode No OBEpisode recorded.
[2024-07-08 10:24] LABS: Appearance Urine Clear; Color Urine Yellow; Glucose Urine UA >=1000 mg/dL (Negative); Leukocyte Esterase Urine Negative (Negative); Nitrite Urine Negative (Negative); Specific Gravity - Urine 1.015 (1.005-1.025); UMIC TRIGGER UA YES; Urine Blood Negative (Negative); Urine Ketones Negative (Negative); Urine Protein Negative (Neg-Trace)
[2024-07-08 10:54] LABS: Bacteria Urine None Seen (None Seen); Hyaline Casts Urine 0-2 /LPF (0-2); RBC Urine 0-2 /HPF (0-2); Squamous Epithelial Cell Urine 0-2 /HPF (0-2); WBC Urine 0-5 /HPF (0-5)
== END 2024-07-08 10:00 | disposition home or self-care (01) ==
LOC: HO.HVNA 09:59
DX: R39.15 Urgency of urination (principal); R30.9 Painful micturition, unspecified
CPT/HCPCS: 81001; 87086

== ENCOUNTER 2024-07-16 12:24 | Outpatient (AMB) | payer MEDICARE, OTHER, SELFPAY ==
--- NOTE | 2024-07-16 12:28 | A.OFFVIS_ITS ---
Intake Visit Reasons: LT foot fx Intake Note: Zuleyma is an 89 year old female who presents today for a fracture care visit. About 3 weeks ago she tripped and fell causing pain in her right foot. Patient reports she was going to the kitchen when she lost balance. Allergies ciprofloxacin Allergy (Severe, Verified 08/01/24 07:28) unknown aspirin [Aspirin] Allergy (Unknown, Verified 08/01/24 07:28) UNKNOWN cefuroxime Allergy (Unknown, Verified 08/01/24 07:28) Unknown celecoxib [From Celebrex] Allergy (Unknown, Verified 08/01/24 07:28) UNKNOWN metformin Allergy (Unknown, Verified 08/01/24 07:28) diarrhea risedronate sodium [From Actonel] Allergy (Unknown, Verified 08/01/24 07:28) UNKNOWN Sulfa (Sulfonamide Antibiotics) Allergy (Unknown, Verified 08/01/24 07:28) unknown bupropion Adverse Reaction (Intermediate, Verified 08/01/24 07:28) tremor ferrous sulfate Adverse Reaction (Intermediate, Verified 08/01/24 07:28) tremors sertraline Adverse Reaction (Intermediate, Verified 08/01/24 07:28) tremors HPI HPI LT foot fx: Details: 89-year-old female presents to the office today for an injury she sustained to her left foot approximately 3 weeks ago. She was seen in the emergency department where she was placed in a boot and referred to our office for ortho eval. She states the boot is too big and uncomfortable. [facility] Medical History Weakness Dizziness and giddiness Weakness Yeast infection of the skin Exercise hypoxemia Acute respiratory failure with hypoxia Lipoma of lower back Urinary incontinence Cystitis Acute urinary retention Acute diverticulitis of intestine Generalized abdominal pain Diverticular disease Nausea & vomiting Failure to thrive in adult TSH elevation CHF (congestive heart failure) Atrial fibrillation with RVR Atrial fibrillation with RVR Type 2 diabetes mellitus with hyperglycemia Diabetes mellitus Asthma Hypokalemia Hypomagnesemia Diarrhea Hearing difficulty Dyspnea on exertion History of gastrointestinal diverticular hemorrhage COVID-19 virus infection Rectal bleeding Medicare annual wellness visit, initial Hip pain, left Patellar sleeve fracture of right knee Knee pain, right Nausea and vomiting Coarse tremors Shoulder pain, right Hospital discharge follow-up Mass on back Constipation Tinea corporis Nausea Right wrist pain Left knee pain Left hip pain Toe pain, left Breast cancer screening by mammogram UTI (urinary tract infection) Obesity (BMI 30-39.9) Urinary frequency Toe fracture, left Pancreatic cyst Osteoporosis Peptic ulcer disease Urinary incontinence Rectal incontinence GERD (gastroesophageal reflux disease) Bile salt-induced diarrhea Vaginal prolapse Renal artery stenosis Asthma Lumbar degenerative disc disease Insomnia TIA (transient ischemic attack) Hyperlipidemia, unspecified Essential hypertension Surgical History Hx of colonoscopy History of esophagogastroduodenoscopy (EGD) History of removal of cyst (~10/17/21) History of hemorrhoidectomy History of colectomy History of section History of hysterectomy History of appendectomy History of cholecystectomy Family History Father Cancer Arterial thrombosis Mother Multiple sclerosis Muscular dystrophy Hypertension Depression Chronic mental illness Mental health disorder Brother No problems noted. Brother Gangrene Sister No problems noted. Son No problems noted. Son No problems noted. Son No problems noted. Son No problems noted. Daughter No problems noted. Daughter No problems noted. Daughter No problems noted. Social History Household Members: None Housing: Apartment Do you presently have visiting nurse or other home services: Yes Alcohol intake: former Comment: 1:1 sitter Patient Tobacco Use Status: Former Tobacco user Tobacco use type: Cigarette Years Smoked: 22 Smoked in Last 30 Days: No e-Cigarette/Vaping Use: Former Use Second Hand Smoke Exposure: Yes Use of substances other than those prescribed or required for medical reasons: No Advance Directives: Yes Advance Directives on File: Yes Advance Directives Date on File: 08/06/23 Do you have a plan to hurt others: No Plan service: No Current occupational status: disabled Current occupational exposures/hazards: No Cognitive needs: Yes (walker) Hearing needs: Yes Vision needs: Yes (Glasses) Review of Systems Const All systems reviewed & are unremarkable except as noted in HPI and below Physical Exam Const General: cooperative and no acute distress Orientation/consciousness: patient oriented x3 Resp Effort & Inspection: normal respiratory effort and able to speak in complete sentences Cardio Peripheral pulses: Peripheral pulses 2+ throughout Neuro General: patient oriented x3 Extrem Other: Left foot skin intact. There is trace bruising over the top of the Left foot. There is tenderness at the base of the 2nd metatarsal. Sensation intact. EHL intact. No pain along the mediolateral malleolus. Neurovascularly intact. Office Procedures AMB Fracture Care Fracture Billing Code: Fracture Billing Code Results Reviewed Results Reviewed: XR foot LT 2V IMPRESSION: 1. Acute spiral fracture, mid to distal diaphysis, fifth metatarsal. Minimal displacement. No angulation. 2. Osteopenia. 3. Arthritic changes as detailed, with small plantar calcaneal spur. Assessment & Plan Assessment & Plan (1) Foot fracture, left: Code(s): S92.902A - Unspecified fracture of left foot, initial encounter for closed fracture Category: Medical Plan: She can weightbear as tolerated with a supportive shoe. She was fit for a small boot and a postop shoe today as she would like to alternate between the 2 when she is in and out of the house. She will transition to a regular street shoe over the next 3 weeks as symptoms allow. If symptoms persist or worsen or there are any concerns she can contact our office otherwise increase activities as tolerated and see us back as needed. Coding Level of Care Code New Pt Level 3 (90479) Complex EM visit Add On G2211 Diagnoses Foot fracture, left S92.902A CPT Codes Fracture Care - Fracture Billing Code: Fracture Billing Code ([id number])
--- OUTSIDE RECORDS SUMMARY | 2024-07-16 12:50 | XMS_ITS | Continuity of Care Document ---
Author Organization [facility] Address [address] [address] Phone Care Team Providers Care Team Truck Driver Name Role Phone Anton Jean Baptiste DO Unavailable Unavailable Advance Directives Directive Yes / No Effective Date File Name No Information Encounters Encounter Description Practice Location Reason(s) For Visit Diagnoses Date Provider Providers Copied on Encounter [facility], [address], [id number], [place] tel:[phone] [place] No Information 0 Mark[address] Walton. [address] [place], [place], [id number] , [place]. tel:[phone] Family History Family Member Type Diagnosis Age [...]
--- OUTSIDE RECORDS SUMMARY | 2024-07-16 12:50 | XMS_ITS | Data Portability ---
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 JEISON RAMIREZ Match Maker Assessment Encounter Date Assessment Date Assessment LastModified by Organization Details LastModified Time 08/27/2022 08/27/2022 Type 2 diabetes mellitus with peripheral neuropathy, dystrophic toenails, hyperkeratotic lesions jerskine Not available 08/27/2022 12:08:41 04/08/2023 04/08/2023 Type 2 diabetes mellitus with peripheral neuropathy, dystrophic toenails, hyperkeratotic lesions jerskine Not available 04/08/2023 12:08:15 06/16/2023 06/16/2023 RTC per sleep medicine physician jmandile Not available 06/16/2023 16:30:13 06/17/2023 06/17/2023 Type 2 diabetes mellitus with peripheral neuropathy, dystrophic toenails, hyperkeratotic lesions jerskine Not available 06/17/2023 11:48:06 10/22/2023 10/22/2023 Type 2 diabetes mellitus with peripheral neuropathy, dystrophic toenails, hyperkeratotic lesions jerskine Not available 10/22/2023 09:43:46 Plan of Treatment Reminders Order Date Submit Date Provider Last Modified By Organization Details Last Modified Time Details Appointments None recorded. Lab None recorded. Referral ophthalmolo gist referral - narrow angle, blurry vision, cataracts, glaucoma suspect. 2023 024 [email or web address] [facility], [address] [place], [address], 14:46:35 Procedures None recorded. Surgeries None recorded. Imaging None recorded. Medication Orders None recorded. Patient TargetsNo targets recorded. Patient Instructions Encounter Date Encounter Id Patient Instructions Last Modified By Organization Details Last Modified Time 08/27/2022 [id number] Patient to retur n in 9 weeks for foot care to reduce risk of complications associated with type 2 diabetes mellitus with peripheral neuropathy. jerskine Not available 08/27/2022 12:08:41 04/08/2023 [id number] Patient to retur n in 9 weeks for foot care to reduce risk of complications associated with type 2 diabetes mellitus with peripheral neuropathy. jerskine Not available 04/08/2023 12:08:15 06/16/2023 [id number] attempted gonioscopy today, patient unable to keep eyes open. will refer back to Dr. ingram. [email or web address] Not available 06/16/2023 16:45:37 06/17/2023 [id number] Patient to retur n in 9 weeks for foot care to reduce risk of complications associated with type 2 diabetes mellitus with peripheral neuropathy. jerskine Not available 06/17/2023 11:48:06 10/22/2023 [id number] Patient to retur n in 9 weeks for foot care to reduce risk of complications associated with type 2 diabetes mellitus with peripheral neuropathy. jerskine Not available 10/22/2023 09:43:46 Reason for Referral Executive Services Administrator Referral for Narrow angle narrow angle, blurry vision, cataracts, glaucoma suspect. Referring Physician: Nelly Ramirez, Optometry, Encounter Date: 06/16/2023 Problems Name Problem SNOMED Code Status Onset Date Resolution Date Notes Provider Name and Address Organization Details Recorded Time Diabetes mellitus 87266113 Active 2016 VICKI Campbell [facility] 7 15:01:40 Hypertens hernán disorder 99554390 [facility]05 Hyperchol esterolem ia 95626347 Active [facility] 15:02:42 Vitamin B12 level below reference range 209239357 Active 2016 [facility] 15:04:24 History of transient ischemic attack 753599136 Active 2016 [facility] 15:19:34 Insomnia 989859594 Active 2016 [facility] 15:19:49 Anxiety 06052538 Active 2016 [facility] 16:11:46 Mass of pancreas 265191237 Active 2016 [facility] 16:12:12 Degenerat ion of intervert ebral disc 38913292 Active 2016 [facility] 16:13:58 Asthma 420742345 Active 2016 [facility] 16:14:15 Renal artery stenosis 785042985 Active 2016 [facility] 16:14:41 Diarrheal disorder 817316450 Active 2016 [facility] 16:16:15 Obesity 942517380 Completed 201611/02/2020 Removal Reason: BMI > or = 35 plus other comorbid ities. MIKE Montalvo [facility] 1 06:00:34 Morbid obesity 152617950 Active 2020 BMI > or = 35 plus other comorbid ities. MIKE Montalvo [facility] 1 06:00:43 Disorder of nervous 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 485030749 Active 2020 coded 09/05/20 Podiatry . MIKE Montalvo [facility] 1 06:02:58 Problem Notes None recorded. Procedures Surgical History Date Name Laterality Status Provider Name and Address Organization Details Recorded Time 06/16/19 24 Refraction completed Nelly Ramirez, [address], [place], [address], [facility] 06/16/2023 16:41:05 03/29/20 22 Refraction completed Nelly Ramirez, OD [address] [place], [address], [facility] 2022 17:28:54 12/06/19 21 Fundus Photography completed Nelly Ramirez, OD [address] [place], [address], [facility] 12/05/2020 13:46:33 12/06/19 21 Refraction completed Wanda Brownsurinder [facility] 12/05/2020 10:52:45 03/09/20 18 [facility]/09[facility]2018 10:41:18 08/06/19 18 Visual field comprehensive completed Nelly Ramirez, OD [address] [place], [address], [facility] 08/07/2017 10:31:26 05/06/20 17 Pachymetry completed [facility] 05/06/2017 11:53:13 05/06/20 17 Visual field comprehensive completed [facility] 05/06/2017 11:52:41 05/06/20 17 Optical Coherence Tomography (Optic Nerve) completed [facility] 05/06/2017 11:52:37 03/04/20 17 Refraction completed [facility] 03/04/2017 13:39:17 Imaging Results None recorded. Procedure Notes None recorded. Medical Equipment None Reported. Allergies Allergen ID Allergen Name Allergen Category Reaction Reaction Severity Criticality Documentation Date Start Date Code Code System Note Provider Name and Address Organization Details Recorded Time 770482 salicylic acid medicatio n Not available Not available Not available 03/09/2013 9525 RxNorm [facility]ed [facility] 10:05:07 061195 Celebrex medicatio n Not available Not available Not available 03/09/2013 63258 7 RxNorm Bleed ing EDEN Stoner [facility] 3 10:05:07 407759 Actonel medicatio n Not available Not available Not available 03/09/2013 78465 3 RxNorm Bleed ing Wanda Rea, SLITTER OPERATOR null, [facility] 3 10:05:07 178969 Substance with sulfonami de structure and antibacte rial mechanism of action (substanc e) medicatio n other Not available Not available 06/07/2020 41704 8003 SNOMED lose s mind Qian Morton [facility] 1 10:53:29 122797 aspirin medicatio n Not available Not available Not available 12/05/2020 1191 RxNorm Wanda Dildine [facility], [facility] 1 10:31:13 Medications Name Sig [...] e 40 mg tablet TAKE 1 TABLET BY [...] Available Not Available Not Available nystatin 100,000 unit/gram topical ointment APPLY TOPICALL Y TWICE A DAY FOR 7 DAYS active Not Available Not Available No t Available metoprolo l succinate ER 50 mg [...] Not Available Not Available Not Available meclizine 12.5 mg tablet TAKE 1 TABLET BY MOUTH 3 TIMES A DAY NEEDED FOR DIZZINES S active Not Available Not Available No t Available clopidogr el 75 mg tablet TAKE [...] m 0.25 mg tablet TAKE 1 TABLET (0.25 MG) BY MOUTH DAILY NEEDED FOR ANXIETY active Not Available Not Available No t Available famotidin e 20 mg tablet TAKE 1 TAB ORALLY DAILY active Not Available Not Available No t Available magnesium oxide 400 mg (241.3 mg magnesium ) tablet TAKE 1 TABLET BY MOUTH DAILY FOR 7 DAYS. 06/17 completed Not Available Not Available Not Available lorazepam 0.5 mg tablet TAKE 1 TABLET BY MOUTH 60 MINUTES BEFORE MRI, CAN REPEAT X 1 AFTER 30 MINUTES ONCE A DAY 1 DAYS active Not Available Not Available No t Available metoclopr amide 5 mg tablet TAKE ONE TABLET BY MOUTH TWICE A DAY BEFORE LUNCH AND DINNER 06/17 completed Not Available Not Available Not Available tamsulosi n 0.4 mg capsule TAKE 1 CAPSULE BY MOUTH AT BEDTIME active Not Available Not Available No t Available meclizine 25 mg tablet TAKE 1 [...] completed Not Available Not Available Not Available digoxin 125 mcg (0.125 mg) tablet TAKE 1 TABLET ORALLY 3 TIMES A WEEK active Not Available Not Available No t Available zolpidem 5 mg tablet TAKE 1 TABLET BY MOUTH AT BEDTIME NEEDED FOR INSOMNIA active Not Available Not Available No t Available furosemid e 20 mg tablet TAKE 2 TABLETS (40 MG TOTAL) BY MOUTH DAILY. 06/17 completed Not Available Not Available Not Available nystatin 100,000 unit/gram topical powder APPLY 1 APPLICAT ION TOPICALL Y DAILY. active Not Available Not Available No t Available cefuroxim e axetil 500 mg tablet [...] ondansetr on 4 mg disintegr ating tablet DISSOLVE 1 TABLET IN MOUTH EVERY 8 HOURS NEEDED FOR NAUSEA AND VOMITING active Not Available Not Available No t Available Ambien 10 mg tablet Take 1 tablet every day by oral route at bedtime. 06/07 completed taking generic 5 mg Not Available Not Available Not Available amoxicill in 875 mg-potass ium clavulana te 125 mg tablet TAKE 1 TABLET BY MOUTH TWICE A DAY active Not Available Not Available No t Available amoxicill in 500 mg-potass ium clavulana te 125 mg tablet TAKE 1 TABLET BY MOUTH EVERY 12 HOURS active Not Available Not Available No t Available Ventolin HFA 90 mcg/actua tion aerosol [...] completed Not Available Not Available Not Available nitrofura ntoin monohydra te/macroc rystals 100 mg capsule TAKE 1 CAPSULE ORALLY EVERY 12 HOURS FOR 5 DAYS MUST ADMINIST ER WITH A MEAL/KENNETH D active Not Available Not Available No t Available pregabali n 75 mg capsule TAKE 1 CAPSULE BY MOUTH EVERYDAY AT BEDTIME 04/03 completed Not Available Not Available Not Available pregabali n 100 mg capsule TAKE 1 CAPSULE BY MOUTH EVERY 12 HOURS active Not Available Not Available No t Available folic acid active Not Available Not [...] Not Available Not Available No t Available diclofena c 1 % topical gel PLEASE SEE ATTACHED FOR DETAILED DIRECTIO NS [...] Not Available Not Available Fluzone High-Dose Quad (PF) 240 mcg/0.7 mL IM syringe PHARMACY ADMINIST ERED 04/03 completed Not Available Not Available Not Available Vitals Date Recorded Body height Heart rate Systolic blood pressure Diastolic blood pressure Provider Name and Address Organization Details Last Updated DateTime 08/27/2022 147.32 cm 92 /min 102 mm[Hg] 64 mm[Hg] Qian Morton [facility] 08/27/2022 11:54:19 Date Recorded Body height Provider Name an d Address Organization Details Last Updated DateTime 06/17/2023 147.32 cm Qian Morton [facility] 06/17/2023 11:14:13 Date Recorded Body height Provider Name an d Address Organization Details Last Updated DateTime 10/22/2023 147.32 cm Qian Morton [facility] 10/22/2023 09:20:46 Social History Question Answer Notes LastModified by Organizat ion Details LastModified Time Tobacco Smoking Status Former Smoker quit 15 years ago 03/08/13-nilo Rea CMA [place] - [facility] 03/09/2013 10:03:25 When Did You Quit Smoking? 16+yearsmaik mohr [email or web address] Information not available 03/20/2021 What Was The Date Of Your Most Recent Tobacco Screening? 03/20/2021 [email or web address] Information not available 03/20/2021 Do You Or Have You Ever Used Any Other Forms Of Tobacco Or Nicotine? No [email or web address] Information not available 01/09/2021 Sex: Unknown Functional Status None recorded. Mental Status None recorded. Family History Nothing Reported. Medical History No medical history recorded. Gynecological HistoryNo gynecological history recorded. Obstetrics History GPAL:G 0 P 0 0 0 0 Past Encounters Encounter ID Performer Location Encounter Start Date Encounter Closed Date Diagnosis/Indication Diagnosis SNOMED-CT Code Diagnosis ICD10 Code Diagnosis Note [id number] Kimber Ferguson DPM [facility], [place] [phone] 6 03/09/2013 09:22:50 03/09/2013 10:30:31 Disorder of nervous 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 781791552 [place] 948954177 Disorder of nail 37589945 [id number] [facility], [place] [address] 04/27/2013 10:25:59 04/27/2013 10:48:29 Disorder of nervous 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 818487005 [place] 879170417 Disorder of nail 84400108 [id number] [facility], [address] [address] 06/29/2013 10:07:01 06/29/2013 10:32:54 Disorder of nervous 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 532522800 [place] 212499748 Disorder of nail 11716666 [id number] [facility], [address] [address] 08/31/2013 09:24:47 08/31/2013 10:06:39 Disorder of nervous 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 987836051 [place] 104365379 Disorder of nail 25712977 [id number] [facility], [address] [address] 11/09/2013 08:16:40 11/09/2013 11:01:36 Disorder of nervous 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 540705493 [place] 735295652 Disorder of nail 20997143 [id number] Kimber Ferguson DPM [facility], [address] [address] 01/18/2014 08:30:34 01/18/2014 09:14:28 Disorder of nervous 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 126560846 [place] 129155196 Disorder of nail 99764299 [id number] Fl[facility], [address] [address] 03/22/2014 09:19:47 03/22/2014 10:18:39 Disorder of nervous 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 761760138 [place] call[place] 265860878 Disorder of nail 83741586 [id number] Kimber Ferguson DPM [facility], [address] [address] 05/31/2014 08:48:25 05/31/2014 09:28:42 Disorder of nervous 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 979418717 Disorder of nail 44450945 [id number] [facility], [address] [address] 08/02/2014 09:17:07 08/02/2014 09:59:15 Disorder of nervous 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 702612040 Disorder of nail 11569784 [id number] Tere [facility], [address] [address] 10/04/2014 10:10:29 11/08/2014 14:34:50 Disorder of nervous 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 865158645 Disorder of nail 45508124 [id number] [facility], [address] [address] 12/08/2014 13:41:30 12/08/2014 14:06:58 Disorder of nervous 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 703986268 Disorder of nail 86617860 [id number] Kimber Ferguson DPM [facility], [address] [address] 02/09/2015 11:17:13 02/09/2015 11:50:58 Disorder of nervous 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 917667241 Disorder of nail 24318985 [id number] [facility], [address] [address] 04/13/2015 11:33:27 04/13/2015 14:25:00 Disorder of nervous 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 810170170 E11.49 Hypertrophy of nail 3065 4002 L60.2 [place] 4303290 00 L84 [id number] Kimber Ferguson DPM Pod[facility] [address] 06/15/2015 11:26:17 06/15/2015 11:52:44 Disorder of nervous 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 503612740 E11.49 Hypertrophy of nail 3065 4002 L60.2 [place] call[place] 8203475 00 L84 [id number] Kimber Ferguson DPM Podiat[facility] [address] 08/24/2015 11:24:07 08/24/2015 12:03:54 Disorder of nervous 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 743614977 E11.49 Hypertrophy of nail 3065 4002 L60.2 [place] and call[place] 2406997 00 L84 [id number] Kimber Ferguson DPM [facility], [address] [address] 11/02/2015 11:21:07 11/02/2015 11:52:06 Disorder of nervous 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 073266615 E11.49 Disorder of nail 4215359 8 L60.9 [place] call[place] 3888459 00 L84 [id number] Kimber Ferguson DPM [facility] [address] 01/04/2016 11:38:07 01/04/2016 12:34:53 Disorder of nervous 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 299803164 E11.49 Disorder of nail 9163048 8 L60.9 [place] call[place] 8656872 00 L84 [id number] Kimber Ferguson DPM [facility], [address] [address] 03/05/2016 09:49:57 03/05/2016 10:12:20 Disorder of nervous 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 108391486 E11.49 [place]s and call[place] 9889606 00 L84 Hypertrophy of nail 3065 4002 L60.2 [id number] Kimber Ferguson DPM [facility], [address] [address] 05/07/2016 09:53:16 05/07/2016 10:54:12 Hypertrophy of nail 33041525 L60.2 Disorder o f nervous 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 710640342 E11.49 [place] call[place] 7156547 00 L84 [id number] Kimber Ferguson DPM [facility], [address] [address] 07/16/2016 12:23:39 07/16/2016 13:53:52 Disorder of nervous 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 856437309 E11.49 [place]s and callus 9840407 00 L84 Hypertrophy of nail 3065 4002 L60.2 [id number] Kimber Ferguson DPM [facility], [address] [address] 09/10/2016 10:23:26 09/10/2016 10:56:43 Disorder of nervous 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 046926246 E11.49 [place]s and callus 0861071 00 L84 Hypertrophy of nail 3065 4002 L60.2 [id number] Kimber Ferguson DPM [facility], [address] [address] 11/12/2016 10:46:15 11/12/2016 11:19:30 Disorder of nervous 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 686795895 E11.49 [place]s and callus [id number] 00 L84 Hypertrophy of nail 3065 4002 L60.2 [id number] Kimber Ferguson DPM [facility]iat[facility], [address] [address] 01/21/2017 10:43:51 01/21/2017 11:09:42 Disorder of nervous 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 414722532 E11.49 [place]s and call[place] 6198130 00 L84 Hypertrophy of nail 3065 4002 L60.2 [id number] Nelly Ramirez, OD [facility], [address] [address] 03/04/2017 13:10:52 03/04/2017 14:34:10 Presbyopia 41461546 H52.4 Glaucoma suspect 1158285 08 H40.011 2' optic nerve appearance . IOP wnl, RTC for further testing. Type 2 leticia betes mellitus without complication 793901777 E11.9 No diabetic retinopath y OU. pt ed on importance of good blood sugar control, monitor 1 yr with CEE [id number] Kimber Ferguson DPM [facility], [address] [address] 03/25/2017 10:30:12 03/25/2017 11:29:16 Disorder of nervous 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 242595163 E11.49 [place]s and callus 6432004 00 L84 Hypertrophy of nail 3065 4002 L60.2 [id number] Nelly Ramirez, OD [facility], [address] [address] 05/06/2017 10:25:50 05/06/2017 12:35:42 Glaucoma suspect 142741060 H40.011 2' optic nerve appearance . OCT revealed OD: wnl, OS: borderline segment I/T. IOP wnl (ranges 16-17), CCT avg OU, VF were unreliable and need to be repeated. pt ed on findings and glaucoma. continue to observe for now. RTC 3 months for HVF 24-2ss, IOP check, OCT. [id number] Kimber Ferguson DPM [facility], [address] [address] 06/03/2017 11:03:35 06/03/2017 11:54:17 Disorder of nervous 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 464038346 E11.49 Corns and callus [id number] 00 L84 Hypertrophy of nail 3065 4002 L60.2 [id number] Nelly Ramirez, OD [facility], [address] [address] 08/05/2017 13:00:01 08/05/2017 14:29:13 Glaucoma suspect 103319147 H40.011 2' optic nerve appearance . Baseline OCT on 05/06/17 revealed OD: wnl, OS: borderline segment I/T. IOP wnl (ranges 16-18), CCT avg OU, VF were unreliable x 2. +Diabetes. pt ed on findings and glaucoma. Refer to ophthalmol ogy for eval. [id number] Kimber Ferguson DPM [facility], [address] [address] 08/26/2017 14:43:08 08/26/2017 15:31:16 Disorder of nervous 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 120893719 E11.49 Corns and callus 6353103 00 L84 Hypertrophy of nail 3065 4002 L60.2 [id number] Kimber Ferguson DPM [facility], [address] [address] 11/19/2017 14:10:42 11/19/2017 14:42:40 Disorder of nervous 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 709560915 E11.49 [place]s and callus [id number] 00 L84 Hypertrophy of nail 3065 4002 L60.2 [id number] Nelly Ramirez, OD [facility], [address] [address] 03/09/2018 10:17:41 03/09/2018 11:14:52 Presbyopia 66029906 H52.4 Glaucoma suspect 5286109 08 H40.011 2' optic nerve appearance . Baseline OCT on 05/06/17 revealed OD: wnl, OS: borderline segment I/T. IOP wnl (ranges 16-18), CCT avg OU, VF were unreliable x 2. +Diabetes. saw ophthalmol ogist and recommende d observatio n. f/u 1 yr with CEE and OCT. Type 2 leticia betes mellitus without complication 328524614 E11.9 No diabetic retinopath y OU. pt ed on importance of good blood sugar control, monitor 1 yr with CEE Dry eyes 425855769 H04.1 29 pt ed. recommend hot compresses with lid massage 1-2 x per day and Artificial tears 2-4 x per day. [id number] Kimber Ferguson DPM Podiat[facility], [address] [address] 06/30/2018 10:07:36 06/30/2018 13:18:22 Disorder of nervous 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 128083486 E11.49 [place]s and call[place] 6299604 00 L84 Hypertrophy of nail 3065 4002 L60.2 [id number] Kimber Ferguson DPM [facility], [address] [address] 09/01/2018 10:30:01 09/01/2018 11:23:42 Disorder of nervous 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 381590790 E11.49 [place]s and callus [id number] 00 L84 Hypertrophy of nail 3065 4002 L60.2 [id number] Kimber Ferguson DPM [facility], [address] [address] 11/03/2018 10:42:18 11/03/2018 11:55:21 Disorder of nervous 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 287735376 E11.49 [place]s and callus 4366007 00 L84 Hypertrophy of nail 3065 4002 L60.2 [id number] Kimber Ferguson DPM Podiat[facility], [address] [address] 01/19/2019 10:50:16 01/19/2019 11:35:02 Disorder of nervous 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 472571872 E11.49 [place] and call[place] [id number] 00 L84 Hypertrophy of nail 3065 4002 L60.2 [id number] Kimber Ferguson DPM Pod[facility], [address] [address] 03/23/2019 10:46:15 03/23/2019 11:58:20 Disorder of nervous 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 363693815 E11.49 [place]s and callus 8888003 00 L84 Hypertrophy of nail 3065 4002 L60.2 [id number] Kimber Ferguson DPM Pod[facility], [address] [address] 06/15/2019 10:42:18 06/15/2019 11:36:52 Disorder of nervous 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 759568478 E11.49 [place]s and call[place] 9278326 00 L84 Hypertrophy of nail 3065 4002 L60.2 [id number] Kimber Ferguson DPM Pod[facility], [address] [address] 06/07/2020 10:45:17 06/07/2020 11:22:58 Disorder of nervous 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 465063854 E11.49 [place]s and call[place] [id number] 00 L84 Hypertrophy of nail 3065 4002 L60.2 [id number] Kimber Ferguson DPM [facility], [address] [address] 09/05/2020 10:47:47 09/05/2020 11:20:29 Disorder of nervous 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 802458333 E11.49 [place]s and callus [id number] 00 L84 Hypertrophy of nail 3065 4002 L60.2 [id number] Kimber Ferguson DPM Pod[facility], [address] [address] 11/07/2020 09:53:47 11/07/2020 10:18:53 Disorder of nervous 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 518290573 E11.49 [place]s and call[place] [id number] 00 L84 Hypertrophy of nail 3065 4002 L60.2 [id number] Nelly Ramirez, OD [facility], [address] [address] 12/05/2020 09:41:52 12/05/2020 14:10:35 Presbyopia 19507134 H52.4 Glaucoma suspect 4932755 08 H40.011 2' optic nerve appearance . IOP wnl (ranges 16-18), CCT avg OU, VF were unreliable x 2. +Diabetes. saw ophthalmol ogist in the past and recommende d observatio n. unable to obtain clear OCT today, baseline photos. refer back to ophthalmol ogist. Type 2 leticia betes mellitus without complication 233726393 E11.9 No diabetic retinopath y OU. pt ed on importance of good blood sugar control, monitor 1 yr with CEE Dry eyes 172153356 H04.1 29 pt ed. recommend lid scrub qd, Artificial tears 2-4 x per day. [id number] Kimber Ferguson DPM Pod[facility], [address] [address] 01/09/2021 09:02:38 01/09/2021 09:38:05 Disorder of nervous 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 009644611 E11.49 [place]s and callus 8822627 00 L84 Hypertrophy of nail 3065 4002 L60.2 [id number] Kimber Ferguson DPM [facility], [address] [address] 03/20/2021 09:15:35 03/20/2021 09:53:26 Disorder of nervous 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 165758749 E11.49 Tendinitis of right posterior tibial tendon 3739429511 03542 M76.967 [id number] Kimber Ferguson DPM [facility]iat[facility], [address] [address] 01/16/2022 10:54:00 01/16/2022 17:22:29 Disorder of nervous 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 [id number] E11.49 Corns and callus [id number] 00 L84 Hypertrophy of nail 3065 4002 L60.2 [id number] Nelly Ramirez, OD [facility], [address] [address] 2022 15:28:35 04/01/2022 14:47:01 Presbyopia [id number] H52.4 Glaucoma suspect [id number] 08 H40.011 2' optic nerve appearance . IOP wnl (ranges 16-18), CCT avg OU, VF were unreliable x 2. +Diabetes. saw ophthalmol ogist in the past and recommende d observatio n. unable to obtain OCT today, refer back to ophthalmol ogist. Type 2 leticia betes mellitus without complication [id number] E11.9 No diabetic retinopath y OU. pt ed on importance of good blood sugar control, monitor 1 yr with CEE Dry eyes 167866904 H04.1 29 pt ed. recommend lid scrub qd, Artificial tears 2-4 x per day. Hypermetropia 16448366 H 52.03 [id number] Kimber Ferguson DPM Podiatry, [address] [address] 04/03/2022 11:27:25 04/03/2022 12:09:15 Disorder of nervous 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 [id number] E11.49 Corns and callus [id number] 00 L84 Hypertrophy of nail 3065 4002 L60.2 [id number] Kimber Ferguson DPM Podiat[facility], [address] [address] 06/18/2022 11:43:50 06/18/2022 12:11:45 Disorder of nervous 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 766301372 E11.49 Corns and callus [id number] 00 L84 Hypertrophy of nail 3065 4002 L60.2 [id number] Kimber Ferguson DPM Podiatry, [address] [address] 08/27/2022 11:44:12 08/27/2022 12:30:53 Disorder of nervous 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 556592925 E11.49 Corns and callus [id number] 00 L84 Hypertrophy of nail 3065 4002 L60.2 [id number] Kimber Ferguson DPM Podiatry, [address] [address] 04/08/2023 11:49:54 04/08/2023 12:11:04 Disorder of nervous 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 804958958 E11.49 Corns and callus [id number] 00 L84 Hypertrophy of nail 3065 4002 L60.2 [id number] Nelly Ramirez, OD [facility], [address] [address] 06/16/2023 15:46:20 06/18/2023 14:17:09 Presbyopia 58040813 H52.4 Glaucoma suspect 7203671 08 H40.011 2' optic nerve appearance . IOP wnl (ranges 16-18), CCT avg OU, VF were unreliable x 2. +Diabetes. saw ophthalmol ogist in the past and recommende d observatio n. unable to obtain OCT or photo or gonioscopy today, refer back to ophthalmol ogist. Type 2 leticia betes mellitus without complication 421584033 E11.9 No diabetic retinopath y OU to extent seen. pt ed on importance of good blood sugar control, monitor 1 yr with CEE Dry eyes 666038059 H04.1 29 pt ed. recommend lid scrub qd, Artificial tears 2-4 x per day. Hypermetropia 44070643 H 52.03 Narrow angle 795667349 H 40.974 [id number] Kimber Ferguson DPM Podiat[facility], [address] [address] 06/17/2023 11:03:33 06/17/2023 11:55:06 Disorder of nervous 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 846810668 E11.49 Corns and callus [id number] 00 L84 Hypertrophy of nail 3065 4002 L60.2 [id number] Kimber Ferguson DPM Podiat[facility], [address] [address] 10/22/2023 09:00:41 10/22/2023 10:10:22 Disorder of nervous 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 054854590 E11.49 Corns and callus [id number] 00 L84 Hypertrophy of nail 3065 4002 L60.2 Health Concerns Section Related Observation LastModified by Organization Detai ls LastModified Time None Recorded Concern Status LastModified by Organization Details LastModified Time None Recorded Advance Directives Directive None Recorded Payers Encounter Date Sequence Insurance Name Policy Number Policy Quiles Covered Member ID Quiles Member ID Guarantor Name 08/27/2022 2 () Zuleyma Gutierrez [id number] Zuleyma Gutierrez 08/27/2022 1 MEDICARE B-KS: [facility] [employer] Zuleyma Gutierrez [id number] Zuleyma Gutierrez 04/08/2023 2 () Zuleyma A Orwell [id number] Zuleyma Orwell 04/08/2023 1 MEDICARE B-[place]: [facility] Zuleyma A Orwell [id number] Zuleyma Orwell 06/16/2023 2 () Zuleyma A Orwell [id number] Zuleyma Orwell 06/16/2023 1 MEDICARE B-[place]: [facility] Zuleyma A Orwell [id number] Zuleyma Orwell 06/17/2023 2 () Zuleyma A Orwell [id number] Zuleyma Orwell 06/17/2023 1 MEDICARE B-KS: [facility] Zuleyma A Orwell [id number] Zuleyma Orwell 10/22/2023 2 () Zuleyma A Orwell [id number] Zuleyma Orwell 10/22/2023 1 MEDICARE B-[place]: [facility] Zuleyma A Orwell [id number] Zuleyma Orwell Notes Date Note Type Note Provider Name [...] wound or drainage. Patient seen by Doris borck RN on 08/22/22. Kimber Ferguson DPM [address] [place] [address], [phone], [facility] 08/27/2022 12:10:25 04/08/2023 text/html Patient with type 2 diabetes mellitus with peripheral neuropathy returns to the office for evaluation and at risk foot care. Patient complains of thick toenails as well as calluses that she's not able to care for herself. Patient has no complaints of open wound or drainage. Patient seen by Armaan Sharma NP on 03/24/23. Kimber Ferguson DPM [address] [place] [address] [place], [phone], [facility] 04/08/2023 12:10:00 06/16/2023 text/html c/o blurry vision, distance and near, with tearing, no eye pain. has spots in vision. type 2 DM, PCP is Dr. Jacobs in [place], last A1C unknown Nelly Ramirez, OD [address] [place], [phone], [facility] 06/16/2023 16:46:48 06/17/2023 text/html Patient with type 2 diabetes mellitus with peripheral neuropathy returns to the office for evaluation and at risk foot care. Patient complains of thick toenails as well as calluses that she's not able to care for herself. Patient without any complaints of open wound or drainage. Patient seen by Armaan Sharma NP on 03/24/23. Kimber Ferguson DPM [address] [place], [address], [facility] 06/17/2023 11:49:30 10/22/2023 text/html Patient with type 2 diabetes mellitus with peripheral neuropathy returns to the office for evaluation and at risk foot care. Patient complains of thick toenails as well as calluses that she's not able to care for herself. Patient without any complaints of open wound or drainage. Patient seen by Pablo Denny MD on 08/02/23. Kimber Ferguson DPM [address] [place], [phone], [facility] 10/22/2023 09:45:07 OBGyn Episode No OBEpisode recorded.
== END 2024-07-16 13:01 | disposition home or self-care (01) ==
PROVIDERS: PCP Internal Medicine; Visit Provider Physician Assistant
DX: S92.902A Unspecified fracture of left foot, initial encounter for closed fracture (principal)
CPT/HCPCS: 99213; G2211

== ENCOUNTER → 2024-07-16 12:24 | Outpatient (BNVA) | payer MEDICARE, OTHER, SELFPAY | PROVIDERS: PCP Internal Medicine; Visit Provider Physician Assistant | DX: S92.902A Unspecified fracture of left foot, initial encounter for closed fracture (principal); W01.0XXA Fall on same level from slipping, tripping and stumbling without subsequent striking against object, initial encounter; Y93.9 Activity, unspecified; Y92.9 Unspecified place or not applicable; Y99.9 Unspecified external cause status | CPT/HCPCS: 99212 ==

== ENCOUNTER 2024-07-27 11:18 | Outpatient (AMB) | payer MEDICARE, OTHER, SELFPAY ==
--- NOTE | 2024-07-27 11:28 | A.OFFVIS_ITS ---
Intake Visit Reasons: 3m/PVR Intake Note: Patient presents today for follow up on retention Urology Medications: Tamsulosin (doesn't know if she's taking) Blood Thinner: Apixaban PVR: 68ml's Control Integration Engineer Required: No Accompanied by: Unknown Allergies ciprofloxacin Allergy (Severe, Verified 07/27/24 12:09) unknown aspirin [Aspirin] Allergy (Unknown, Verified 07/27/24 12:09) UNKNOWN cefuroxime Allergy (Unknown, Verified 07/27/24 12:09) Unknown celecoxib [From Celebrex] Allergy (Unknown, Verified 07/27/24 12:09) UNKNOWN metformin Allergy (Unknown, Verified 07/27/24 12:09) diarrhea risedronate sodium [From Actonel] Allergy (Unknown, Verified 07/27/24 12:09) UNKNOWN Sulfa (Sulfonamide Antibiotics) Allergy (Unknown, Verified 07/27/24 12:09) unknown bupropion Adverse Reaction (Intermediate, Verified 07/27/24 12:09) tremor ferrous sulfate Adverse Reaction (Intermediate, Verified 07/27/24 12:09) tremors sertraline Adverse Reaction (Intermediate, Verified 07/27/24 12:09) tremors Medication List - Last Reconciled 07/27/24 by MITA Roe albuterol sulfate 90 mcg/actuation 1 puff inhalation QID alprazolam 0.25 mg PO DAILY PRN apixaban (Eliquis) 2.5 mg PO BID ascorbic acid (vitamin C) (Vitamin C) 500 mg PO DAILY atorvastatin (Lipitor) 40 mg PO BEDTIME bisacodyl (Dulcolax (bisacodyl)) 5 mg PO BEDTIME 30 days blood-glucose meter (Wicron Verio Flex Start kit) Test twice a day cholecalciferol (vitamin D3) 25 mcg PO DAILY cyanocobalamin (vitamin B-12) (Vitamin B-12) 1,000 mcg PO DAILY dexlansoprazole (Dexilant) 60 mg PO DAILY@0630 diclofenac sodium 1% (Arthritis Pain (diclofenac)) 4 grams topical QID digoxin 125 mcg PO MOWEFR empagliflozin (Jardiance) 25 mg PO DAILY famotidine 20 mg PO BEDTIME folic acid 1 mg PO DAILY furosemide 40 mg PO DAILY hydrocortisone 2.5% 1 appl RI BID PRN lancets (FreeStyle Lancets) use to test sugar once a day meclizine 12.5 mg PO TID PRN metoprolol succinate ER 75 mg PO DAILY montelukast (Singulair) 10 mg PO BEDTIME [pediatric front wheel walker As directed] [PEDIATRIC FRONT WHEELED WALKER As directed] pregabalin 100 mg PO Q12H 31 days tamsulosin 0.4 mg PO BEDTIME tramadol 50 mg PO DAILY PRN zolpidem 5 mg PO BEDTIME PRN HPI Comments Details: Zuleyma Lovell is an 89-year-old female patient of Dr. Jacobs who was accompanied by her neighbor Yen at today's office visit. She has a past medical history of type 2 diabetes, asthma, hearing impairment, tremors, osteoporosis, pancreatic cyst, peptic ulcer disease, fecal and urinary incontinence, GERD, lumbar degenerative disc disease, insomnia, TIA, hyperlipidemia, and hypertension. She presents to the office today for follow-up of her urinary retention. In discussion with the patient today she reports compliance with tamsulosin as prescribed. She does report noting episodes of urinary frequency after taking her Lasix with episodes of stress/urge incontinen ce however feels she is managing this well independently. In office urinalysis results reviewed with the patient today. PVR 68 mL. She otherwise denies hematuria, dysuria, foul smelling urine, changes to urinary stream, flank pain, fever, and or chills. Previous CT 02/23 notes bilateral kidneys are normal in size, shape, and attenuation. No hydronephrosis hydroureter, or calculi seen. No perinephric stranding. In numeral bilateral renal cysts are again seen which require no additional follow-up per radiology report. The bladder is partially decompressed by a Lamar catheter. She reports having had lamar catheter removed during rehab at [facility] however she has since been discharge and home independently voiding without any concerns. We discussed further treatment options of lower urinary tract symptoms patient was experiencing in risks and benefits of these treatment options. She discusses continuing to follow-up with GI regarding her pancreatic cyst. She denies any other issues or concerns at this time. [facility] Medical History Weakness Dizziness and giddiness Weakness Yeast infection of the skin Exercise hypoxemia Acute respiratory failure with hypoxia Lipoma of lower back Urinary incontinence Cystitis Acute urinary retention Acute diverticulitis of intestine Generalized abdominal pain Diverticular disease Nausea & vomiting Failure to thrive in adult TSH elevation CHF (congestive heart failure) Atrial fibrillation with RVR Atrial fibrillation with RVR Type 2 diabetes mellitus with hyperglycemia Diabetes mellitus Asthma Hypokalemia Hypomagnesemia Diarrhea Hearing difficulty Dyspnea on exertion History of gastrointestinal diverticular hemorrhage COVID-19 virus infection Rectal bleeding Medicare annual wellness visit, initial Hip pain, left Patellar sleeve fracture of right knee Knee pain, right Nausea and vomiting Coarse tremors Shoulder pain, right Hospital discharge follow-up Mass on back Constipation Tinea corporis Nausea Right wrist pain Left knee pain Left hip pain Toe pain, left Breast cancer screening by mammogram UTI (urinary tract infection) Obesity (BMI 30-39.9) Urinary frequency Toe fracture, left Pancreatic cyst Osteoporosis Peptic ulcer disease Urinary incontinence Rectal incontinence GERD (gastroesophageal reflux disease) Bile salt-induced diarrhea Vaginal prolapse Renal artery stenosis Asthma Lumbar degenerative disc disease Insomnia TIA (transient ischemic attack) Hyperlipidemia, unspecified Essential hypertension Surgical History Hx of colonoscopy History of esophagogastroduodenoscopy (EGD) History of removal of cyst (~10/17/21) History of hemorrhoidectomy History of colectomy History of section History of hysterectomy History of appendectomy History of cholecystectomy Family History Father Cancer Arterial thrombosis Mother Multiple sclerosis Muscular dystrophy Hypertension Depression Chronic mental illness Mental health disorder Brother No problems noted. Brother Gangrene Sister No problems noted. Son No problems noted. Son No problems noted. Son No problems noted. Son No problems noted. Daughter No problems noted. Daughter No problems noted. Daughter No problems noted. Social History Household Members: None Housing: Apartment Do you presently have visiting nurse or other home services: Yes Alcohol intake: former Comment: 1:1 sitter Patient Tobacco Use Status: Former Tobacco user Tobacco use type: Cigarette Years Smoked: 22 e-Cigarette/Vaping Use: Former Use Second Hand Smoke Exposure: Yes Advance Directives Date on File: 08/06/23 service: No Current occupational status: disabled Current occupational exposures/hazards: No Cognitive needs: Yes (walker) Hearing needs: Yes Vision needs: Yes (Glasses) Review of Systems Eyes Reports no additional complaints ENT Reports no additional complaints Card Reports as per [facility] Resp Reports as per [facility] GI Reports as per HPI Reports as per [facility] Musc Reports as per [facility] Neuro Reports as per HPI Psych Reports no additional complaints Endo Reports as per HPI Physical Exam Const General: cooperative, healthy appearing, comfortable, no acute distress, well developed, alert and awake Orientation/consciousness: patient oriented x3 Limitations: ambulation with walker HEENT Head: Yes normal to inspection, Yes normocephalic and Yes atraumatic Ears: hearing grossly normal bilaterally Eyes General: appearance normal, both eyes and all related structures Neck Neck: Yes normal visual inspection and Yes trachea midline Chest Chest palpation & inspection: normal inspection of the chest Resp Effort & Inspection: normal respiratory effort and able to speak in complete sentences Cardio Rate: regular rate GI Inspection: Yes normal to inspection General: Yes no CVA tenderness Back/Spine/Pelvis Back: no CVA tenderness Skin General skin exam: no rashes or lesions noted Neuro General: patient oriented x3 Extrem General: Yes normal to inspection Psych Appearance: grossly normal and well kempt Mental Status: mental status grossly normal Speech and movement: Normal speech and movement present and Clear speech present Affect: normal affect Attitude: cooperative Thought process: Normal thought process present Thought content: Normal thought content present Insight: Fair insight present (Psych) Judgement: Fair judgement present (Psych) Office Procedures Post Void Residual Post Residual Void Post Void Residual (PVR): 68 [id number] Void Residual by ultrasound Results AMB Urinalysis, Automated UA Leukoctes 0 Didi/uL Last Edit by Keith Carver on 07/27/24 12:05 UA Nitrite Last Edit by Keith Carver on 07/27/24 12:05 UA Urobilinogen 0.2 mg/dL Last Edit by [employer] Careny Carver on 07/27/24 12:05 UA Protein 0 mg/dL Last Edit by Keith Carver on 07/27/24 12:05 UA pH 7.0 Last Edit by Keith Gomescarlos on 07/27/24 12:05 UA Blood 0 Jose Maria/uL Last Edit by Keith Carver on 07/27/24 12:05 UA Specific Heiskell 1.010 Last Edit by Keith Mireyacarlos on 07/27/24 12:05 UA Ketone Last Edit by Keith Carver on 07/27/24 12:05 UA Bilirubin 0 mg/dL Last Edit by Keith Carver on 07/27/24 12:05 UA Glucose 0 mg/dL Last Edit by Keith Carver on 07/27/24 12:05 Results Reviewed Results Reviewed: Laboratory Last Values Urine pH (Auto) 7.0 07/27/24 12:01 Specific Heiskell (Auto) 1.010 07/27/24 12:01 Urine Protein (Auto) 0 mg/dL 07/27/24 12:01 Glucose (UA)(Auto) 0 mg/dL 07/27/24 12:01 Urine Blood (Auto) 0 Jose Maria/uL 07/27/24 12:01 Urine Bilirubin (Auto) 0 mg/dL 07/27/24 12:01 Urine Urobilinogen (Auto) 0.2 mg/dL 07/27/24 12:01 Leukocyte Esterase (Auto) 0 Didi/uL 07/27/24 12:01 Assessment & Plan Assessment & Plan (1) Urinary frequency: Comment: S/P Macrodantin a couple of weeks ago with no apparent improvement of her symptoms Code(s): R35.0 - Frequency of micturition Category: Medical (2) Urinary incontinence, mixed: Code(s): N39.46 - Mixed incontinence Category: Medical (3) Urinary retention: Code(s): R33.9 - Retention of urine, unspecified Category: Medical Plan In office urinalysis results reviewed with the patient today; as noted above. PVR 68ml's Continue Flomax as discussed and prescribed. We discussed further treatment options of mixed urinary incontinence and risks and benefits of these treatment options; we discussed in office urodynamics and or InterStim. Will continue with surveillance monitoring at this time per patient request as she feels lower urinary tract symptoms are being managed well independently. Continue timed/scheduled voiding to decreased episodes of mixed incontinence. Follow-up in 6 months with PVR; or sooner with any issues, concerns, and or questions. Orders: Orders AMB Urinalysis Automated Today Z13.9 - Encounter for screening, unspecified AMB Post Void Residual by ultrasound Today R33.9 - Retention of urine, unspecified Patient Instructions: The patient had an opportunity to ask questions regarding the treatment plan. All questions were answered. Physical exam, labs, and imaging were discussed and reviewed in detail. As well as risks, benefits, and discussion of treatment choices. No major barriers to understanding were identified. The patient expressed understanding and agreement with the above treatment plan. The patient was made aware they should contact our office by phone for worsening of their current condition, the appearance of new symptoms, or with any questions or concerns. Compliance is encouraged with any medications and follow up testing that is ordered. It is a privilege to be allowed the opportunity to participate in? your urological care.? Again, if you have any questions or concerns If you have any questions or concerns please do not hesitate to contact me. The office is [phone]. This note is constructed using voice recognition software. While every effort has been made to ensure accuracy senior software architect errors may have been included. Yours sincerely, MITA Roe Coding Level of Care Code Est Pt Level 3 (47088) Complex EM visit Add On G2211 Diagnoses Urinary frequency R35.0 Urinary incontinence, mixed N39.46 Urinary retention R33.9 CPT Codes Post Residual Void - PVR CPT Code: 62426-Cpue Void Residual by ultrasound ([id number])
--- OUTSIDE RECORDS SUMMARY | 2024-07-27 13:50 | XMS_ITS | Continuity of Care Document ---
Author Organization [facility] Address [address] [address] Phone Care Team Providers Care Journalism Internship Name Role Phone Anton Jean Baptiste DO Unavailable Unavailable Advance Directives Directive Yes / No Effective Date File Name No Information Encounters Encounter Description Practice Location Reason(s) For Visit Diagnoses Date Provider [facility], [address] [place] [address], [id number], [place] tel:[phone] [address] [place] [address] No Information 2019 Markel Walton. [address] [place] [address], [id number], [place]. tel:[phone] Family History Family Member Type Diagnosis Age [...]
--- OUTSIDE RECORDS SUMMARY | 2024-07-27 13:50 | XMS_ITS | Data Portability ---
Author Organization [facility], [facility] Address [address] [place] [address] Care Team Providers Care Researcher Name Role Phone BETYALYSSA Primary Care Provider KIMBER FERGUSON Marine Pilot JEISON RAMIREZ Tractor Trailer Truck Driver [phone] Assessment Encounter Date Assessment Date Assessment LastModified by Organization Details LastModified Time 08/27/2022 08/27/2022 Type 2 diabetes mellitus with peripheral neuropathy, dystrophic toenails, hyperkeratotic lesions jerskine Not available 08/27/2022 12:08:41 04/08/2023 04/08/2023 Type 2 diabetes mellitus with peripheral neuropathy, dystrophic toenails, hyperkeratotic lesions jerskine Not available 04/08/2023 12:08:15 06/16/2023 06/16/2023 RTC per furnace filler [email or web address] Not available 06/16/2023 16:30:13 06/17/2023 06/17/2023 Type 2 diabetes mellitus with peripheral neuropathy, dystrophic toenails, hyperkeratotic lesions jerskine Not available 06/17/2023 11:48:06 10/22/2023 10/22/2023 Type 2 diabetes mellitus with peripheral neuropathy, dystrophic toenails, hyperkeratotic lesions jerskine Not available 10/22/2023 09:43:46 Plan of Treatment Reminders Order Date Submit Date Provider Last Modified By Organization Details Last Modified Time Details Appointments Compreh ensive Eye Exam, 20 Min 2024 08:10A M Nelly Ramirez, OD Not available Not available Not available Lab None recorde d. Referral ophthal mologis t referra l - narrow angle, blurry vision, catarac ts, glaucom a suspect . 2023 024 [email or web address] [facility], [address], [place], [address], 06/23/2023 14:46:35 Procedures None recorde d. Surgeries None recorde d. Imaging None recorde d. Medication Orders None recorde d. Patient TargetsNo targets recorded. Patient Instructions Encounter Date Encounter Id Patient Instructions Last Modified By Organization Details Last Modified Time 08/27/2022 [id number] Patient to retur n in 9 weeks for foot care to reduce risk of complications associated with type 2 diabetes mellitus with peripheral neuropathy. jerskine Not available 08/27/2022 12:08:41 04/08/2023 [id number] Patient to retur n in 9 weeks for foot care to reduce risk of complications associated with type 2 diabetes mellitus with peripheral neuropathy. jerskine Not available 04/08/2023 12:08:15 06/16/2023 [id number] attempted gonioscopy today, patient unable to keep eyes open. will refer back to Dr. ingram. [email or web address] Not available 06/16/2023 16:45:37 06/17/2023 [id number] Patient to retur n in 9 weeks for foot care to reduce risk of complications associated with type 2 diabetes mellitus with peripheral neuropathy. jerskine Not available 06/17/2023 11:48:06 10/22/2023 [id number] Patient to retur n in 9 weeks for foot care to reduce risk of complications associated with type 2 diabetes mellitus with peripheral neuropathy. jerskine Not available 10/22/2023 09:43:46 Reason for Referral Dock Builder Referral for Narrow angle narrow angle, blurry vision, cataracts, glaucoma suspect. Referring Physician: Nelly Ramirez, Optometry, Encounter Date: 06/16/2023 Problems Name Problem SNOMED Code Status Onset Date Resolution Date Notes Provider Name and Address Organization Details Recorded Time Diabetes mellitus 54744742 Active 2016 VICKI Campbell [facility] 7 15:01:40 Hypertens hernán disorder 82347294 Active 2016 VICKI Campbell [facility] 7 15:02:05 Hyperchol esterolem ia 65118473 [facility] Vitamin B12 level below reference range 636948518 [facility] History of transient ischemic attack 768232163 [facility] 15:19[facility]34 Insomnia 895971032 [facility] 15:19:49 Anxiety 59621846 [facility] 16:11:46 Mass of pancreas 434662920 [facility] 16:12[facility]12 Degenerat ion of intervert ebral disc 30877389 [facility] 16:13:58 Asthma 289142143 [facility]:14[facility]15 Renal artery stenosis 936392104 [facility] 16:14[facility]41 Diarrheal disorder 437984309 [facility] 16:16[facility]15 Obesity 822586988 Completed 201611/02/2020 Removal Reason: BMI > or = 35 plus other comorbid ities. MIKE Montalvo [facility] 1 06:00:34 Morbid obesity 358414112 Active 2020 BMI > or = 35 plus other comorbid ities. MIKE Montalvo [facility] 1 06:00:43 Disorder of nervous 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 998596742 Active 2020 coded 09/05/20 Podiatry . MIKE Montalvo [facility] 06:02:58 Problem Notes None recorded. Procedures Surgical History Date Name Laterality Status Provider Name and Address Organization Details Recorded Time 06/16/19 24 Refraction completed Nelly Bustosile, OD [address] [place], [address], [facility] 06/16/2023 16:41:05 03/29/20 22 Refraction completed Nelly Mary Bustosile, OD [address] [place], [address], [facility] [place] 2022 17:28:54 12/06/19 21 Fundus Photography completed Nelly Bustosile, OD [address] [place], [address], [facility] 12/05/2020 13:46:33 12/06/19 21 Refraction completed Wandakendrick Patrick [facility] 12/05/2020 10:52:45 03/09/20 18 Refraction completed [facility] 03/09/2018 10:41:18 08/06/19 18 Visual field comprehensive completed Nelly Bustosile, OD [address] [place], [address], [facility] [place] 08/07/2017 10:31:26 05/06/20 17 Pachymetry completed [facility] 05/06/2017 11:53:13 05/06/20 17 Visual field comprehensive completed [facility] 05/06/2017 11:52:41 05/06/20 17 Optical Coherence Tomography (Optic Nerve) completed [facility] 05/06/2017 11:52:37 03/04/20 17 Refraction completed [facility] 03/04/2017 13:39:17 Imaging Results None recorded. Procedure Notes None recorded. Medical Equipment None Reported. Allergies Allergen ID Allergen Name Allergen Category Reaction Reaction Severity Criticality Documentation Date Start Date Code Code System Note Provider Name and Address Organization Details Recorded Time 792305 salicylic acid medicatio n Not available Not available Not available 03/09/2013 9525 RxNorm Bleed ing EDEN Stoner, [facility] 3 10:05:07 139452 Celebrex medicatio n Not available Not available Not available 03/09/2013 78560 7 RxNorm Bleed ing Wanda Rea CMA null, [facility] 3 10:05:07 870691 Actonel medicatio n Not available Not available Not available 03/09/2013 53900 3 RxNorm Bleed donna Rea CMA null, [facility] 3 10:05:07 759259 Substance with sulfonami de structure and antibacte rial mechanism of action (substanc e) medicatio n other Not available Not available 06/07/2020 88879 8003 SNOMED lose s mind Qian Morton [facility] 1 10:53:29 053814 aspirin medicatio n Not available Not available Not available 12/05/2020 1191 RxNorm Wanda Dildine [facility], [facility] 1 10:31:13 Medications Name Sig Start [...] /min 102 mm[Hg] 64 mm[Hg] Qian Morton [facility] 08/27/2022 11:54:19 Date Recorded Body height Provider Name an d Address Organization Details Last Updated DateTime 06/17/2023 147.32 cm Qian Morton [facility] 06/17/2023 11:14:13 Date Recorded Body height Provider Name an d Address Organization Details Last Updated DateTime 10/22/2023 147.32 cm Qian Morton [facility] 10/22/2023 09:20:46 Social History Question Answer Notes LastModified by Organizat ion Details LastModified Time Tobacco Smoking Status Former Smoker quit 15 years ago 03/08/13-EDEN Macario, [facility] 03/09/2013 10:03:25 When Did You Quit Smoking? 18+yearssin celastcidinesh ette [email or web address] Information not available 03/20/2021 What Was The Date Of Your Most Recent Tobacco Screening? 03/20/2021 [email or web address] Information not available 03/20/2021 Do You Or Have You Ever Used Any Other Forms Of Tobacco Or Nicotine? No [email or web address] Information not available 01/09/2021 Sex: Unknown Functional Status None recorded. Mental Status None recorded. Family History Nothing Reported. Medical History No medical history recorded. Gynecological HistoryNo gynecological history recorded. Obstetrics History GPAL:G 0 P 0 0 0 0 Past Encounters Encounter ID Performer Location Encounter Start Date Encounter Closed Date Diagnosis/Indication Diagnosis SNOMED-CT Code Diagnosis ICD10 Code Diagnosis Note [id number] Kimber Ferguson DPM [facility], [address] [address] 03/09/2013 09:22:50 03/09/2013 10:30:31 Disorder of nervous 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 121318872 Corns and callus 728213753 Disorder of nail 21595545 [id number] Renee Mckay [facility], [address] [address] 04/27/2013 10:25:59 04/27/2013 10:48:29 Disorder of nervous 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 538405867 Corns and callus 926888070 Disorder of nail 41387122 [id number] Melanie Delgado [facility], [address] [address] 06/29/2013 10:07:01 06/29/2013 10:32:54 Disorder of nervous 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 654261902 Corns and callus 091691802 Disorder of nail 66818227 [id number] Pao Donohue [facility], [address] [address] 08/31/2013 09:24:47 08/31/2013 10:06:39 Disorder of nervous 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 761221367 Corns and callus 713191530 Disorder of nail 87974598 [id number] Christal Matson [facility], [address] [address] 11/09/2013 08:16:40 11/09/2013 11:01:36 Disorder of nervous 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 707052410 Corns and callus 173025531 Disorder of nail 83226602 [id number] Kimber Ferguson DPM [facility], [address] [address] 01/18/2014 08:30:34 01/18/2014 09:14:28 Disorder of nervous 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 054252139 Corns and callus 493491452 Disorder of nail 11994568 [id number] Flavia Webb [facility], [address] [address] 03/22/2014 09:19:47 03/22/2014 10:18:39 Disorder of nervous 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 000004408 Corns and callus 896521724 Disorder of nail 07161356 [id number] Kimber Ferguson DPM [facility]iat[facility], [address] [address] 05/31/2014 08:48:25 05/31/2014 09:28:42 Disorder of nervous 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 283745665 Disorder of nail 91015987 [id number] Pao Donohue [facility], [address] [address] 08/02/2014 09:17:07 08/02/2014 09:59:15 Disorder of nervous 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 325005378 Disorder of nail 53231124 [id number] Tere Jacobo [facility], [address] [address] 10/04/2014 10:10:29 11/08/2014 14:34:50 Disorder of nervous 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 182800934 Disorder of nail 89421506 [id number] Renee Mckay [facility], [address] [address] 12/08/2014 13:41:30 12/08/2014 14:06:58 Disorder of nervous 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 506751311 Disorder of nail 73404792 [id number] Kimber Ferguson DPM [facility], [address] [address] 02/09/2015 11:17:13 02/09/2015 11:50:58 Disorder of nervous 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 714257691 Disorder of nail 55172448 [id number] Christal Matson [facility], [place] [address] 6 04/13/2015 11:33:27 04/13/2015 14:25:00 Disorder of nervous 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 491110596 E11.49 Hypertrophy of nail 3065 4002 L60.2 Corns and callus 4312281 00 L84 [id number] Kimber Ferguson DPM [facility], [address] [address] 06/15/2015 11:26:17 06/15/2015 11:52:44 Disorder of nervous 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 407327260 E11.49 Hypertrophy of nail 3065 4002 L60.2 Corns and callus 9625604 00 L84 [id number] Kimbre Ferguson DPM Podiat[facility], [address] [address] 08/24/2015 11:24:07 08/24/2015 12:03:54 Disorder of nervous 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 351210921 E11.49 Hypertrophy of nail 3065 4002 L60.2 Corns and callus 4786022 00 L84 [id number] Kimber Ferguson DPM [facility], [address] [address] 11/02/2015 11:21:07 11/02/2015 11:52:06 Disorder of nervous 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 966992369 E11.49 Disorder of nail 8327049 8 L60.9 Corns and callus 4428545 00 L84 [id number] Kimber Ferguson DPM [facility]iat[facility], [address] [address] 01/04/2016 11:38:07 01/04/2016 12:34:53 Disorder of nervous 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 596120442 E11.49 Disorder of nail 1853931 8 L60.9 Corns and callus 9924400 00 L84 [id number] Kimber Ferguson DPM Podiat[facility], [address] [address] 03/05/2016 09:49:57 03/05/2016 10:12:20 Disorder of nervous 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 904349189 E11.49 Corns and callus 0094501 00 L84 Hypertrophy of nail 3065 4002 L60.2 [id number] Kimber Ferguson DPM Podiat[facility], [address] [address] 05/07/2016 09:53:16 05/07/2016 10:54:12 Hypertrophy of nail 87740576 L60.2 Disorder o f nervous 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 480214257 E11.49 Corns and callus 0855904 00 L84 [id number] Kimber Ferguson DPM Podiat[facility], [address] [address] 6 07/16/2016 12:23:39 07/16/2016 13:53:52 Disorder of nervous 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 670401797 E11.49 Corns and callus 5099218 00 L84 Hypertrophy of nail 3065 4002 L60.2 [id number] Kimber Ferguson DPM Podiat[facility], [address] [address] 09/10/2016 10:23:26 09/10/2016 10:56:43 Disorder of nervous 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 278265772 E11.49 Corns and callus 2071127 00 L84 Hypertrophy of nail 3065 4002 L60.2 [id number] Kimber Ferguson DPM Podiat[facility], [address] [address] 11/12/2016 10:46:15 11/12/2016 11:19:30 Disorder of nervous 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 845081092 E11.49 Corns and callus 1354588 00 L84 Hypertrophy of nail 3065 4002 L60.2 [id number] Kimber Ferguson DPM Podiat[facility], [address] [address] 01/21/2017 10:43:51 01/21/2017 11:09:42 Disorder of nervous 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 700000808 E11.49 Corns and callus 1356863 00 L84 Hypertrophy of nail 3065 4002 L60.2 [id number] Nelly Ramirez, OD [facility], [address] [address] 03/04/2017 13:10:52 03/04/2017 14:34:10 Presbyopia 23834580 H52.4 Glaucoma suspect 4687440 08 H40.011 2' optic nerve appearance . IOP wnl, RTC for further testing. Type 2 leticia betes mellitus without complication 963217093 E11.9 No diabetic retinopath y OU. pt ed on importance of good blood sugar control, monitor 1 yr with CEE [id number] Kimber Ferguson DPM [facility], [address] [address] 03/25/2017 10:30:12 03/25/2017 11:29:16 Disorder of nervous 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 793172360 E11.49 Corns and callus 1045936 L84 Hypertrophy of nail 3065 4002 L60.2 [id number] Nelly Ramirez, OD [facility], [address] [address] 05/06/2017 10:25:50 05/06/2017 12:35:42 Glaucoma suspect 627311187 H40.011 2' optic nerve appearance . OCT revealed OD: wnl, OS: borderline segment I/T. IOP wnl (ranges 16-17), CCT avg OU, VF were unreliable and need to be repeated. pt ed on findings and glaucoma. continue to observe for now. RTC 3 months for HVF 24-2ss, IOP check, OCT. [id number] Kimber Ferguson DPM [facility], [address] [address] 06/03/2017 11:03:35 06/03/2017 11:54:17 Disorder of nervous 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 450084692 E11.49 Corns and callus 5487209 L84 Hypertrophy of nail 3065 4002 L60.2 [id number] Nelly Ramirez, OD [facility], [address] [address] 08/05/2017 13:00:01 08/05/2017 14:29:13 Glaucoma suspect 585547129 H40.011 2' optic nerve appearance . Baseline OCT on 05/06/17 revealed OD: wnl, OS: borderline segment I/T. IOP wnl (ranges 16-18), CCT avg OU, VF were unreliable x 2. +Diabetes. pt ed on findings and glaucoma. Refer to ophthalmol ogy for eval. [id number] Kimber Ferguson DPM [facility], [address] [address] 08/26/2017 14:43:08 08/26/2017 15:31:16 Disorder of nervous 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 899923632 E11.49 Corns and callus 6347315 L84 Hypertrophy of nail 3065 4002 L60.2 [id number] Kimber Ferguson DPM Podiat[facility], [address] [address] 6 11/19/2017 14:10:42 11/19/2017 14:42:40 Disorder of nervous 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 899828526 E11.49 Corns and callus 4486323 L84 Hypertrophy of nail 3065 4002 L60.2 [id number] Nelly Ramirez, OD [facility], [address] [address] 03/09/2018 10:17:41 03/09/2018 11:14:52 Presbyopia 77192101 H52.4 Glaucoma suspect 9132679 08 H40.011 2' optic nerve appearance . Baseline OCT on 05/06/17 revealed OD: wnl, OS: borderline segment I/T. IOP wnl (ranges 16-18), CCT avg OU, VF were unreliable x 2. +Diabetes. saw ophthalmol ogist and recommende d observatio n. f/u 1 yr with CEE and OCT. Type 2 leticia betes mellitus without complication 588389946 E11.9 No diabetic retinopath y OU. pt ed on importance of good blood sugar control, monitor 1 yr with CEE Dry eyes 504827483 H04.1 29 pt ed. recommend hot compresses with lid massage 1-2 x per day and Artificial tears 2-4 x per day. [id number] Kimber Ferguson DPM Podiat[facility], [address] [address] 06/30/2018 10:07:36 06/30/2018 13:18:22 Disorder of nervous 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 688517743 E11.49 Corns and callus 0440292 00 L84 Hypertrophy of nail 3065 4002 L60.2 [id number] Kimber Ferguson DPM Podiat[facility] [address] 09/01/2018 10:30:01 09/01/2018 11:23:42 Disorder of nervous 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 740830033 E11.49 Corns and callus 1222995 00 L84 Hypertrophy of nail 3065 4002 L60.2 [id number] Kimber Ferguson DPM Podiat[facility], [address] [address] 11/03/2018 10:42:18 11/03/2018 11:55:21 Disorder of nervous 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 979902776 E11.49 Corns and callus 4707554 00 L84 Hypertrophy of nail 3065 4002 L60.2 [id number] Kimber Ferguson DPM Podiat[facility], [address] [address] 01/19/2019 10:50:16 01/19/2019 11:35:02 Disorder of nervous 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 165037458 E11.49 Corns and callus 9437196 00 L84 Hypertrophy of nail 3065 4002 L60.2 [id number] Kimber Ferguson DPM Podiat[facility], [address] [address] 03/23/2019 10:46:15 03/23/2019 11:58:20 Disorder of nervous 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 149176512 E11.49 Corns and callus 6659515 00 L84 Hypertrophy of nail 3065 4002 L60.2 [id number] Kimber Ferguson DPM Podiat[facility], [address] [address] 06/15/2019 10:42:18 06/15/2019 11:36:52 Disorder of nervous 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 032602069 E11.49 Corns and callus 3713508 00 L84 Hypertrophy of nail 3065 4002 L60.2 [id number] Kimber Ferguson DPM Podiat[facility], [address] [address] 06/07/2020 10:45:17 06/07/2020 11:22:58 Disorder of nervous 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 851490316 E11.49 Corns and callus 4231039 00 L84 Hypertrophy of nail 3065 4002 L60.2 [id number] Kimber Ferguson DPM Podiat[facility], [address] [address] 09/05/2020 10:47:47 09/05/2020 11:20:29 Disorder of nervous 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 592052528 E11.49 Corns and callus 9025398 00 L84 Hypertrophy of nail 3065 4002 L60.2 [id number] Kimber Ferguson DPM Podiat[facility], [address] [address] 11/07/2020 09:53:47 11/07/2020 10:18:53 Disorder of nervous 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 726938023 E11.49 Corns and callus 1424906 00 L84 Hypertrophy of nail 3065 4002 L60.2 [id number] Nelly Ramirez, [facility], [address] [address] 12/05/2020 09:41:52 12/05/2020 14:10:35 Presbyopia 09117348 H52.4 Glaucoma suspect 4513210 08 H40.011 2' optic nerve appearance . IOP wnl (ranges 16-18), CCT avg OU, VF were unreliable x 2. +Diabetes. saw ophthalmol ogist in the past and recommende d observatio n. unable to obtain clear OCT today, baseline photos. refer back to ophthalmol ogist. Type 2 leticia betes mellitus without complication 136864698 E11.9 No diabetic retinopath y OU. pt ed on importance of good blood sugar control, monitor 1 yr with CEE Dry eyes 884005130 H04.1 29 pt ed. recommend lid scrub qd, Artificial tears 2-4 x per day. [id number] Kimber Ferguson DPM Podiat[facility], [address] [address] 01/09/2021 09:02:38 01/09/2021 09:38:05 Disorder of nervous 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 994012470 E11.49 Corns and callus 3229349 00 L84 Hypertrophy of nail 3065 4002 L60.2 [id number] Kimber Ferguson DPM Podiat[facility], [address] [address] 03/20/2021 09:15:35 03/20/2021 09:53:26 Disorder of nervous 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 178223045 E11.49 Tendinitis of right posterior tibial tendon 1522979472 91857 M76.242 [id number] Kimber Ferguson DPM Podiat[facility], [address] [address] 01/16/2022 10:54:00 01/16/2022 17:22:29 Disorder of nervous 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 848607021 E11.49 Corns and callus 3695708 00 L84 Hypertrophy of nail 3065 4002 L60.2 [id number] Nelly Ramirez, OD [facility], [address] [address] 2022 15:28:35 04/01/2022 14:47:01 Presbyopia 73175921 H52.4 Glaucoma suspect 7083183 08 H40.011 2' optic nerve appearance . IOP wnl (ranges 16-18), CCT avg OU, VF were unreliable x 2. +Diabetes. saw ophthalmol ogist in the past and recommende d observatio n. unable to obtain OCT today, refer back to ophthalmol ogist. Type 2 leticia betes mellitus without complication 776920578 E11.9 No diabetic retinopath y OU. pt ed on importance of good blood sugar control, monitor 1 yr with CEE Dry eyes 831474776 H04.1 29 pt ed. recommend lid scrub qd, Artificial tears 2-4 x per day. [facility] 27246449 H 52.03 [id number] Kimber Ferguson DPM Podiat[facility], [address] [address] 04/03/2022 11:27:25 04/03/2022 12:09:15 Disorder of nervous 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 107159848 E11.49 Corns and callus 2891433 00 L84 Hypertrophy of nail 3065 4002 L60.2 [id number] Kimber Ferguson DPM Podiat[facility], [address] [address] 06/18/2022 11:43:50 06/18/2022 12:11:45 Disorder of nervous 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 977629975 E11.49 Corns and callus 2520534 00 L84 Hypertrophy of nail 3065 4002 L60.2 [id number] Kimber Ferguson DPM Podiat[facility], [address] [address] 6 08/27/2022 11:44:12 08/27/2022 12:30:53 Disorder of nervous 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 795770278 E11.49 Corns and callus 9148689 00 L84 Hypertrophy of nail 3065 4002 L60.2 [id number] Kimber Ferguson DPM Podiat[facility], [address] [address] 04/08/2023 11:49:54 04/08/2023 12:11:04 Disorder of nervous 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 896749842 E11.49 Corns and callus 8721339 00 L84 Hypertrophy of nail 3065 4002 L60.2 [id number] Nelly Ramirez, OD [facility], [address] [address] 06/16/2023 15:46:20 06/18/2023 14:17:09 Presbyopia 98120844 H52.4 Glaucoma suspect 4096706 08 H40.011 2' optic nerve appearance . IOP wnl (ranges 16-18), CCT avg OU, VF were unreliable x 2. +Diabetes. saw ophthalmol ogist in the past and recommende d observatio n. unable to obtain OCT or photo or gonioscopy today, refer back to ophthalmol ogist. Type 2 leticia betes mellitus without complication 040107431 E11.9 No diabetic retinopath y OU to extent seen. pt ed on importance of good blood sugar control, monitor 1 yr with CEE Dry eyes 877573968 H04.1 29 pt ed. recommend lid scrub qd, Artificial tears 2-4 x per day. [facility] 75062185 H 52.03 Narrow angle 183091112 H 40.550 [id number] Kimber Ferguson, PATRICK [facility], [address] [address] 06/17/2023 11:03:33 06/17/2023 11:55:06 Disorder of nervous 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 093224250 E11.49 Corns and callus 5876772 00 L84 Hypertrophy of nail 3065 4002 L60.2 [id number] Kimber Ferguson DPM Podiat[facility], [address] [address] 10/22/2023 09:00:41 10/22/2023 10:10:22 Disorder of nervous 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 945518571 E11.49 Corns and callus 8791478 00 L84 Hypertrophy of nail 3065 4002 L60.2 Health Concerns Section Related Observation LastModified by Organization Detai ls LastModified Time None Recorded Concern Status LastModified by Organization Details LastModified Time None Recorded Advance Directives Directive None Recorded Payers Encounter Date Sequence Insurance Name Policy Number Policy Quiles Covered Member ID Quiles Member ID Guarantor Name 08/27/2022 2 [id number] (JARAD) Zuleyma Gutierrez [id number] Zuleyma Gutierrez 08/27/2022 1 MEDICARE B-[place]: NATIONAL GOVERNMENT SERVICES Zuleyma A [place] [id number] Zuleyma [place] 04/08/2023 2 () Zuleyma A [place] [id number] Zuleyma [place] 04/08/2023 1 MEDICARE [place]: NATIONAL GOVERNMENT SERVICES Zuleyma A [place] [id number] Zuleyma [place] 06/16/2023 2 () Zuleyma A [place] [id number] Zuleyma [place] 06/16/2023 1 MEDICARE [place]: NATIONAL GOVERNMENT SERVICES Zuleyma A [place] [id number] Zuleyma [place] 06/17/2023 2 () Zuleyma A [place] [id number] Zuleyma [place] 06/17/2023 1 MEDICARE [place]: NATIONAL GOVERNMENT SERVICES Zuleyma A [place] [id number] Zuleyma [place] 10/22/2023 2 () Zuleyma A [place] [id number] Zuleyma [place] 10/22/2023 1 MEDICARE [place]: NATIONAL GOVERNMENT SERVICES Zuleyma A [place] [id number] Zuleyma [place] Notes Date Note Type Note Provider Name [...] brock RN on 08/22/22. Kimber Ferguson DPM [address] [place] [address], [id number], [facility] [place]/27/2022 12:10:25 04/08/2023 text/html Patient with type 2 diabetes mellitus with peripheral neuropathy returns to the office for evaluation and at risk foot care. Patient complains of thick toenails as well as calluses that she's not able to care for herself. Patient has no complaints of open wound or drainage. Patient seen by Armaan Sharma NP on 03/24/23. Kimber Ferguson DPM [address] [place], [phone], [facility] [place] 04/08/2023 12:10:00 06/16/2023 text/html c/o blurry vision, distance and near, with tearing, no eye pain. has spots in vision. type 2 DM, PCP is Dr. Jacobs in [place], last A1C unknown Nelly Ramirez, OD [address] [place], [phone], [facility] [place] 06/16/2023 16:46:48 06/17/2023 text/html Patient with type 2 diabetes mellitus with peripheral neuropathy returns to the office for evaluation and at risk foot care. Patient complains of thick toenails as well as calluses that she's not able to care for herself. Patient without any complaints of open wound or drainage. Patient seen by Armaan Sharma NP on 03/24/23. Kimber Ferguson DPM [address] [place], [phone], [facility] [place] 06/17/2023 11:49:30 10/22/2023 text/html Patient with type 2 diabetes mellitus with peripheral neuropathy returns to the office for evaluation and at risk foot care. Patient complains of thick toenails as well as calluses that she's not able to care for herself. Patient without any complaints of open wound or drainage. Patient seen by Pablo Denny MD on 08/02/23. Kimber Ferguson DPM [address] [place], [phone], [facility] [place] 10/22/2023 09:45:07 OBGyn Episode No OBEpisode recorded.
== END 2024-07-27 12:11 | disposition home or self-care (01) ==
PROVIDERS: PCP Internal Medicine; Visit Provider Nurse Practitioner Family
DX: R35.0 Frequency of micturition (principal); N39.46 Mixed incontinence; R33.9 Retention of urine, unspecified; Z13.9 Encounter for screening, unspecified
CPT/HCPCS: 99213; G2211

== ENCOUNTER → 2024-07-27 11:18 | Outpatient (BNVA) | payer MEDICARE, OTHER, SELFPAY | PROVIDERS: PCP Internal Medicine; Visit Provider Nurse Practitioner Family | DX: R35.0 Frequency of micturition (principal); R33.9 Retention of urine, unspecified; N39.46 Mixed incontinence | CPT/HCPCS: 51798; 81003; 99212 ==

== ENCOUNTER 2024-08-01 07:09 | Emergency (ER) | payer MEDICARE, OTHER, SELFPAY ==
--- NOTE | ~2024-08-01 | CT_ITS ---
CLINICAL HISTORY: LLQ pain CT abdomen and pelvis with contrast Comparison: CT - CT ABDOMEN PELVIS W IV CON - 08/01/24 09:[address]/SR - CT ABDOMEN PELVIS W IV CON - 05/06/24 15:03 EST Findings: No consolidation or effusion. There is mild cardiomegaly with dilatation of the left atrium. The patient is status post cholecystectomy. There is mild intrahepatic and extrahepatic biliary ductal dilatation. Hepatic cysts are noted. There is adrenal hyperplasia particularly on the left. Multiple bilateral renal cysts are seen. 3 cm pancreatic cystic lesion is unchanged. There is dilatation of the pancreatic duct unchanged. There is a large diverticulum arising from the 4th portion of the duodenum. There is colonic diverticulosis without evidence of diverticulitis. Postoperative changes are seen in the sigmoid. The appendix is not identified. There is no evidence of appendicitis. The patient is status post hysterectomy. No acute fracture. The GI tract is otherwise unremarkable. IMPRESSION: No acute findings Or significant interval changes. Chronic findings as above. This document has been electronically signed by: Devan Montalvo MD on 08/01/2024 10:13:17
--- NOTE | ~2024-08-01 | CT_ITS ---
CLINICAL HISTORY: slurred speech ams lwkt unclear CT head without contrast Comparison: CT/SR - CT HEAD/BRAIN WO IV CON - 05/06/24 14:57 EST Findings: No intra-axial mass, midline shift, hydrocephalus, or acute hemorrhage. No significant atrophy-like change or white matter disease. The visualized paranasal sinuses and mastoid air cells are normal. The orbits are within normal limits. No skull fracture. Involutional changes are noted, unchanged. IMPRESSION: 1. No acute intracranial findings. Involutional changes. This document has been electronically signed by: Devan Montalvo MD on 08/01/2024 09:53:28
--- NOTE | ~2024-08-01 | XR_ITS ---
CLINICAL HISTORY: sob 1 view chest x-ray Comparison: CR/SR - XR CHEST 2V - 06/22/24 11:06 EST Findings: No consolidation or effusion. Heart size is normal. No acute fracture. IMPRESSION: 1. No acute findings. This document has been electronically signed by: Devan Montalvo MD on 08/01/2024 12:58:00
--- NOTE | 2024-08-01 07:11 | ECG_ITS ---
Test Reason : WEAKNESS Blood Pressure : */* mmHG Vent. Rate : 81 BPM Atrial Rate : * BPM P-R Int : * ms QRS Dur : 86 ms QT Int : 402 ms P-R-T Axes : * -40 22 degrees QTcB Int : 466 ms Atrial fibrillation Left axis deviation Minimal voltage criteria for LVH, may be normal variant ( Jesse product ) Septal infarct (cited on or before 16-Jan-2024) Abnormal ECG When compared with ECG of 22-Jun-2024 10:12, No significant change was found Referred By: Prachi Mejia Electronically Signed By: Joby Vidal
--- NOTE | 2024-08-01 07:16 | ED_ITS ---
HPI - General Adult General Chief complaint: General Medical Stated complaint: WEAKNESS Source: patient and EMS Mode of arrival: EMS Limitations: no limitations History of Present Illness ED Provider: EILEEN Mejia HPI narrative: An 89-year-old female past medical history significant for COPD, atrial fibrillation, anxiety, depression, GERD, hypertension, hyperlipidemia, diabetes, neuropathy, TIA presenting to the emergency department complaints of left lower quadrant abdominal pain, itchiness all over and feeling overall unwell. Patient tells me she has been feeling this way for the past 24 hours. She reports associated nausea however no vomiting. Also reporting associated fatigue, malaise, myalgias. Denies sick contacts. Prior to arrival took Benadryl for the itchiness which seemed to make it worse. Patient denies chest pain, shortness of breath, fevers, chills, headache, vision changes, dizziness Denies falls/traumas Patient with intermittent slurred speech however, it appears to have started after taking Benadryl. NIH stroke scale 0 nonfocal neurological assessment on arrival. Related Data Home Medications ?Medication ?Instructions ?Recorded ?Confirmed blood-glucose meter (OneTouch 01/07/24 07/06/24 Verio Flex Start kit) alprazolam 0.25 mg tablet 0.25 mg PO DAILY PRN anxiety 08/01/24 08/01/24 diclofenac sodium 1 % topical gel 1 ea topical 08/01/24 digoxin 125 mcg (0.125 mg) tablet 125 mcg PO 3XW 08/01/24 08/01/24 famotidine 20 mg tablet 20 mg PO DAILY 08/01/24 08/01/24 metoprolol succinate 50 mg 50 mg PO DAILY 08/01/24 08/01/24 tablet,extended release 24 hr tamsulosin 0.4 mg capsule 0.4 mg PO BEDTIME 08/01/24 08/01/24 zolpidem 5 mg tablet 5 mg PO BEDTIME PRN insomnia 08/01/24 08/01/24 Previous Rx's ?Medication ?Instructions ?Recorded PEDIATRIC FRONT WHEELED WALKER #1 ea 09/18/23 lancets 28 gauge (FreeStyle #100 ea 11/17/23 Lancets) Allergies Allergy/AdvReac Type Severity Reaction Status Date / Time ciprofloxacin Allergy Severe unknown Verified 08/01/24 07:28 aspirin [Aspirin] Allergy Unknown UNKNOWN Verified 08/01/24 07:28 cefuroxime Allergy Unknown Unknown Verified 08/01/24 07:28 celecoxib [From Celebrex] Allergy Unknown UNKNOWN Verified 08/01/24 07:28 metformin Allergy Unknown diarrhea Verified 08/01/24 07:28 risedronate sodium Allergy Unknown UNKNOWN Verified 08/01/24 07:28 [From Actonel] Sulfa (Sulfonamide Allergy Unknown unknown Verified 08/01/24 07:28 Antibiotics) bupropion AdvReac Intermediate tremor Verified 08/01/24 07:28 ferrous sulfate AdvReac Intermediate tremors Verified 08/01/24 07:28 sertraline AdvReac Intermediate tremors Verified 08/01/24 07:28 Review of Systems 2 Review of Systems: Yes all other systems are reviewed and are negative [facility] Past Medical History Attestation statement: The following information was validated with the patient. Source: old records reviewed and nursing notes reviewed Medical History Weakness Dizziness and giddiness Weakness Yeast infection of the skin Exercise hypoxemia Acute respiratory failure with hypoxia Lipoma of lower back Urinary incontinence Cystitis Acute urinary retention Acute diverticulitis of intestine Generalized abdominal pain Diverticular disease Nausea & vomiting Failure to thrive in adult TSH elevation CHF (congestive heart failure) Atrial fibrillation with RVR Atrial fibrillation with RVR Type 2 diabetes mellitus with hyperglycemia Diabetes mellitus Asthma Hypokalemia Hypomagnesemia Diarrhea Hearing difficulty Dyspnea on exertion History of gastrointestinal diverticular hemorrhage COVID-19 virus infection Rectal bleeding Medicare annual wellness visit, initial Hip pain, left Patellar sleeve fracture of right knee Knee pain, right Nausea and vomiting Coarse tremors Shoulder pain, right Hospital discharge follow-up Mass on back Constipation Tinea corporis Nausea Right wrist pain Left knee pain Left hip pain Toe pain, left Breast cancer screening by mammogram UTI (urinary tract infection) Obesity (BMI 30-39.9) Urinary frequency Toe fracture, left Pancreatic cyst Osteoporosis Peptic ulcer disease Urinary incontinence Rectal incontinence GERD (gastroesophageal reflux disease) Bile salt-induced diarrhea Vaginal prolapse Renal artery stenosis Asthma Lumbar degenerative disc disease Insomnia TIA (transient ischemic attack) Hyperlipidemia, unspecified Essential hypertension Surgical History Hx of colonoscopy History of esophagogastroduodenoscopy (EGD) History of removal of cyst (~10/17/21) History of hemorrhoidectomy History of colectomy History of section History of hysterectomy History of appendectomy History of cholecystectomy Family History Family History Father Cancer Arterial thrombosis Mother Multiple sclerosis Muscular dystrophy Hypertension Depression Chronic mental illness Mental health disorder Brother No problems noted. Brother Gangrene Sister No problems noted. Son No problems noted. Son No problems noted. Son No problems noted. Son No problems noted. Daughter No problems noted. Daughter No problems noted. Daughter No problems noted. Social History Social History Household Members: None Housing: Apartment Do you presently have visiting nurse or other home services: Yes Alcohol intake: former Comment: 1:1 sitter Patient Tobacco Use Status: Former Tobacco user Tobacco use type: Cigarette Years Smoked: 22 Smoked in Last 30 Days: No e-Cigarette/Vaping Use: Former Use Second Hand Smoke Exposure: Yes Use of substances other than those prescribed or required for medical reasons: No Advance Directives: Yes Advance Directives on File: Yes Advance Directives Date on File: 08/06/23 Do you have a plan to hurt others: No Plan service: No Current occupational status: disabled Current occupational exposures/hazards: No Cognitive needs: Yes (walker) Hearing needs: Yes Vision needs: Yes (Glasses) Physical Exam ED Vital Signs: Vital Signs - 24 hr 08/01/24 07:24 08/01/24 10:06 08/01/24 10:57 Temperature 97.6 F Pulse Rate 85 88 86 Respiratory Rate 18 19 17 Blood Pressure 170/80 H 148/75 H 133/58 L Pulse Oximetry 93 98 92 Oxygen Delivery Method Room Air Nasal Cannula Oxygen Flow Rate 1 08/01/24 14:00 08/01/24 22:00 08/02/24 06:33 Temperature 97.6 F 98 F Pulse Rate 83 66 85 Respiratory Rate 15 16 16 Blood Pressure 143/61 H 165/78 H 150/76 H Pulse Oximetry 93 99 95 Oxygen Delivery Method Nasal Cannula Nasal Cannula Nasal Cannula Oxygen Flow Rate 2 1 1 BMI result Body Mass Index 30.9 vss Appearance: Alert.? Oriented X3.? No acute distress.? Head: Normocephalic, atraumatic, no step-offs or deformities Eyes: Pupils equal, round and reactive to light.? Neck: Normal inspection.? Neck supple.? CVS: Normal heart rate and rhythm.? Pulses normal.? Respiratory: No respiratory distress.? Breath sounds normal.? Abdomen: Soft and nontender.? Skin: Skin warm and dry.? Normal skin color.? Normal skin turgor.? Extremities: No lower extremity edema.? No calf ttp. 5/5 strength to bilateral upper and lower extremities Neuro: Oriented X 3.? No motor deficit.? No sensory deficit. CN 2-12 intact Course Reevaluation(s) Reevaluation #1: CBC with no acute findings needing intervention. Chemistry with no acute findings needing intervention. Troponin negative, EKG nonischemic. It is showing atrial fibrillation with left axis deviation patient has history of this in the past. UA without infection. Flu, COVID, RSV negative. Time: 10:41 Reevaluation #2: CT abdomen pelvis with no acute findings or significant interval changes. Chronic findings. CT head unremarkable. Time: 10:44 Reevaluation #3: Patient no longer itchy. She is feeling somewhat better. Time: 11:45 Additional Reevaluation(s): Patient reports continued itchiness, Atarax ordered. Oddly I can not appreciate a rash of any sort. Chest x-ray no acute findings. She also reported to nursing chronic back pain with an acute episode. No saddle anesthesias no urinary or bowel incontinence or retention no signs of cauda equina. Patient now reports that her pubic area is itchy, she is itching so much that she he has abrasions and excoriations that are bleeding. I reported to nursing that this is not an emergent issue she can be given ice packs. Patient does not feel safe for discharge home. At this time patient will be placed into observation to allow more time to be evaluated by physical therapy and case management. Consultations Consultation #1: 08/02/24 [id number] -- vital signs stable. no acute overnight events per nursing staff. med rec reviewed and completed. physician observation continued pending PT/CM and disposition Medications Administered Discontinued Medications Generic Name Dose Route Start Last Admin Trade Name Freq PRN Reason Stop Dose Admin Diphenhydramine HCl 25 mg 08/01/24 16:44 08/01/24 16:54 Diphenhydramine Hcl 25 Mg Capsule PO 08/01/24 16:45 25 mg ONCE ONE Administration Haloperidol 5 mg 08/01/24 16:44 08/01/24 16:54 Haloperidol 5 Mg Tablet PO 08/01/24 16:45 5 mg ONCE ONE Administration Hydroxyzine HCl 25 mg 08/01/24 13:20 08/01/24 13:26 Hydroxyzine Hcl 25 Mg Tablet PO 08/01/24 13:21 25 mg ONCE ONE Administration Hydroxyzine HCl 50 mg 08/02/24 01:59 08/02/24 02:23 Hydroxyzine Hcl 50 Mg Tablet PO 08/02/24 02:00 50 mg ONCE ONE Administration Iohexol 85 ml 08/01/24 09:31 08/01/24 09:31 Iohexol 350 Mg/Ml 100 Ml Infus..Btl IV 08/01/24 09:32 85 ml ONCE ONE Administration Morphine Sulfate 4 mg 08/01/24 09:52 08/01/24 10:02 Morphine Sulfate 4 Mg/Ml Cartridge IVPUSH 08/01/24 09:53 4 mg ONCE ONE Administration Protocol Ondansetron HCl 4 mg 08/01/24 08:23 08/01/24 08:30 Ondansetron Hcl 4 Mg/2 Ml Vial IVPUSH 08/01/24 08:24 4 mg ONCE ONE Administration Medical Decision Making Medical Decision Making [facility] Narrative: 89-year-old female presents with left lower quadrant abdominal discomfort, fatigue, malaise, myalgias, nausea and itchiness for the past 24 hours. Physical exam with left lower quadrant tenderness on palpation. No signs of trauma. Concerns for diverticulitis versus viral illness versus gastroenteritis. No evidence of trauma therefore low suspicion for pelvic fracture, acute abdomen, ACS, PE, dissection. Will rule out metabolic derangements, viral illness and UTI. Slurred speech likely secondary to patient taking Benadryl for itchiness. No headache, vision changes, dizziness, weakness or focal neurological deficits appreciated I do not suspect stroke, posterior stroke, intracranial hemorrhage Plan labs, imaging, urine, EKG Differential Diagnosis Differential Diagnoses: The differential diagnosis associated with the presentation includes ( Concerns for diverticulitis versus viral illness versus gastroenteritis. No evidence of trauma therefore low suspicion for pelvic fracture, acute abdomen, ACS, PE, dissection. Will rule out metabolic derangements, viral illness and UTI.) Admission/Observation Consideration of admission/observation: Escalation of care including admission/observation considered Lab Data [facility] Lab Attestation statement: I reviewed the patient's lab results. 08/01/24 08:25 08/01/24 08:25 Labs: Lab Results 08/01/24 Range/Units 08:25 WBC 10.2 (4.8-10.8) X10*3/uL RBC 5.58 H (4.20-5.50) X10*6/uL Hgb 13.7 (12.0-16.0) g/dl Hct 44.6 (37.0-47.0) % MCV 79.9 L (80.0-98.0) fL MCH 24.6 L (27.0-33.0) pg MCHC 30.7 L (31.0-35.0) g/dl RDW 18.7 H (11.0-16.0) % Plt Count 301 (160-400) X10*3/uL MPV 10.0 (9.4-12.3) fL Immature Gran % (Auto) 0.2 (0.0-0.4) % Neut % (Auto) 75.7 H (45-73) % Lymph % (Auto) 13.0 L (20-40) % [place] % (Auto) 9.6 (2-11) % Eos % (Auto) 1.2 (0-4) % Baso % (Auto) 0.3 (0-2) % Lymph # (Auto) 1.3 (1.2-4.9) X10*3/uL [place] # (Auto) 1.0 (0.1-1.2) X10*3/uL Eos # (Auto) 0.1 (0.0-0.4) X10*3/uL Baso # (Auto) 0.0 (0.0-0.2) X10*3/uL Abs Immat Gran (auto) 0.02 (0.00-0.03) X10*3/uL Absolute Neuts (auto) 7.7 (2.0-8.3) x10*3/uL Absolute Nucleated RBC 0.000 (0.0-0.012) X10*3/uL Nucleated RBC % (auto) 0.0 (0.0-0.2) /100WBC Hold Blue Top SEE NOTE Sodium 144 (135-145) mmol/L Potassium 3.6 (3.3-5.1) mmol/L Chloride 106 (96-108) mmol/L Carbon Dioxide 26 (22-29) mmol/L Anion Gap 16 (12-20) BUN 11 (9-16) mg/dL Creatinine 1.07 (0.5-1.4) mg/dL Estim Creat Clear Calc 30.0 Estimated GFR 49 Random Glucose 166 H (60-115) mg/dL Calcium 9.8 (8.4-10.2) mg/dL Magnesium 2.0 (1.6-2.6) mg/dL Total Bilirubin 1.5 H (0.0-1.0) mg/dL AST 25 (5-31) U/L ALT 13 (0-31) U/L Alkaline Phosphatase 125 H (39-117) U/L Troponin I High Sens 9.6 (<3.5-17.0) ng/L Total Protein 7.6 (6.5-8.0) g/dL Albumin 4.0 (3.5-5.0) g/dL Urine Color Yellow Urine Appearance Clear Urine pH 6.5 (5.0-9.0) Ur Specific [place] 1.010 (1.005-1.025) Urine Protein Negative (Neg-Trace) mg/dL Urine Glucose (UA) >=1000 H (Negative) mg/dL Urine Ketones Negative (Negative) mg/dL Urine Blood Trace H (Negative) Urine Nitrite Negative (Negative) Ur Leukocyte Esterase Trace H (Negative) Urine RBC 3-5 H (0-2) /HPF Urine WBC 0-5 (0-5) /HPF Ur Squamous Epith Cells 3-5 (0-2) /HPF Urine Bacteria Trace (None Seen) Hyaline Casts 0-2 (0-2) /LPF Influenza Type A (PCR) NEGATIVE (Negative) Influenza Type B (PCR) NEGATIVE (Negative) RSV RNA Qual (PCR) NEGATIVE (Negative) SARS-CoV-2 RNA (RT-PCR) NEGATIVE (Negative) Independent Interpretation I performed an independent interpretation of an: EKG (Vent. Rate : 81 BPM Atrial Rate : * BPM P-R Int : * ms QRS Dur : 86 ms QT Int : 402 ms P-R-T Axes : * -40 22 degrees QTcB Int : 466 ms Atrial fibrillation Left axis deviation Minimal voltage criteria for LVH, may be normal variant ( Jesse product ) Septal inf) Radiology Impression Discussion of test interpretation with radiology: I have reviewed the radiologist's reading. External Record Review External record reviewed: Inpatient record, Office record, Outpatient record, Prior outpatient labs, Prior outpatient radiology, Primary care record and Outside ED record Chronic Conditions Patient?s care impacted by: Other (see hpi ) Critical Care Time Critical Care Time Critical Care Time: No Discharge Plan Discharge Clinical Impression: Itching, Abdominal pain, LLQ Patient Disposition: Home, Self-Care Instructions: Abdominal Pain (ED), Itchy Skin (ED) Additional Instructions: Take your medications as prescribed. If you were prescribed antibiotics today, it is important that you take your medication to their entirety, do not skip any doses, do not finish them early. Follow-up with your primary care provider this week. Return to the emergency department with new or worsening symptoms. Such as fevers, chills, chest pain, shortness of breath, nausea, vomiting, dizziness, headache, vision changes, lethargy In case of emergency call 911 I have sent Atarax your pharmacy you can use this as needed for itchiness, it can make you tired. Please use with discretion. Prescriptions: No Action (DME) lancets [FreeStyle Lancets] 28 gauge misc See Rx Instructions .ROUTE .MEDSUPPLY Qty: 100 3RF Rx Instructions: use to test sugar once a day (DME) blood-glucose meter [OneTouch Verio Flex Start] Kit See Rx Instructions .Route Rx Instructions: Test twice a day metoprolol succinate 50 mg tablet extended release 24 hr 50 mg PO DAILY alprazolam 0.25 mg tablet 0.25 mg PO DAILY PRN (Reason: anxiety) famotidine 20 mg tablet 20 mg PO DAILY tamsulosin 0.4 mg capsule 0.4 mg PO BEDTIME digoxin 125 mcg (0.125 mg) tablet 125 mcg PO 3XW zolpidem 5 mg tablet 5 mg PO BEDTIME PRN (Reason: insomnia) diclofenac sodium 1 % gel 1 ea topical (DME) PEDIATRIC FRONT WHEELED WALKER See Rx Instructions .Route .MEDSUPPLY Qty: 1 0RF Rx Instructions: As directed Referrals: Po,Solange Giles MD [Primary Care Provider] - 2 days Stand Alone Forms: Work/School Release Print Language: Emirati
[2024-08-01 07:19] VITALS: BP 169/90; O2SAT 95
[2024-08-01 07:24] VITALS: BP 170/80; PULSE 85; RESP 18; TEMP 36.4; O2SAT 93; BMI 30.9
[2024-08-01 08:29] LABS: MANUAL DIFF FLAG NO
[2024-08-01] MEDS: ondansetron HCL 4 MG/2 ML VIAL IVPUSH (08:30)
[2024-08-01 08:31] LABS: Basophils Percent Auto 0.3 % (0-2); Eosinophils Absolute Auto 0.1 X10*3/uL (0.0-0.4); Eosinophils Percent Auto 1.2 % (0-4); Hematocrit 44.6 % (37.0-47.0); Hemoglobin 13.7 g/dl (12.0-16.0); Imm Gran Abs Auto 0.02 X10*3/uL (0.00-0.03); Imm Gran Pct Auto 0.2 % (0.0-0.4); Lymphocytes Absolute Auto 1.3 X10*3/uL (1.2-4.9); Mean Corpuscular HGB Conc 30.7 g/dl (31.0-35.0); Mean Corpuscular Hemoglobin 24.6 pg (27.0-33.0); Mean Corpuscular Volume 79.9 fL (80.0-98.0); Monocytes Percent Auto 9.6 % (2-11); Neutrophils Absolute Auto 7.7 x10*3/uL (2.0-8.3); Neutrophils Percent Auto 75.7 % (45-73); Platelet Count 301 X10*3/uL (160-400); Red Blood Count 5.58 X10*6/uL (4.20-5.50); Red Cell Distribution Width 18.7 % (11.0-16.0); White Blood Count 10.2 X10*3/uL (4.8-10.8)
[2024-08-01 08:38] LABS: Appearance Urine Clear; Color Urine Yellow; Glucose Urine UA >=1000 mg/dL (Negative); Leukocyte Esterase Urine Trace (Negative); Nitrite Urine Negative (Negative); PH 6.5 (5.0-9.0); UMIC TRIGGER UACC YES; Urine Blood Trace (Negative); Urine Ketones Negative (Negative); Urine Protein Negative (Neg-Trace)
[2024-08-01 08:44] LABS: Alanine Aminotransferase 13 U/L (0-31); Alkaline Phosphatase 125 U/L (39-117); Anion Gap 16 (12-20); Aspartate Amino Transferase 25 U/L (5-31); Bilirubin Total 1.5 mg/dL (0.0-1.0); Blood Urea Nitrogen 11 mg/dL (9-16); Calcium 9.8 mg/dL (8.4-10.2); Carbon Dioxide 26 mmol/L (22-29); Chloride 106 mmol/L (96-108); Estimated Glomerular Filt Rate 49; Glucose Random 166 mg/dL (60-115); Potassium 3.6 mmol/L (3.3-5.1); Sodium 144 mmol/L (135-145); Total Protein 7.6 g/dL (6.5-8.0)
[2024-08-01 08:51] LABS: Troponin-I High Sensitivity 9.6 ng/L (<3.5-17.0)
[2024-08-01 08:57] LABS: Bacteria Urine Trace (None Seen); Hyaline Casts Urine 0-2 /LPF (0-2); WBC Urine 0-5 /HPF (0-5)
[2024-08-01 09:11] LABS: Influenza A PCR NEGATIVE (Negative); Influenza B PCR NEGATIVE (Negative); Resp Syncy Virus RNA Qual PCR NEGATIVE (Negative); SARS COV2 PCR INHOUSE NEGATIVE (Negative)
[2024-08-01] MEDS: iohexoL 350 MG/ML 100 ML INFUS..BTL 85 ML IV (09:31)
[2024-08-01] MEDS: Morphine Sulfate 4 MG/ML CARTRIDGE IVPUSH (10:02)
[2024-08-01 10:06] VITALS: BP 148/75; PULSE 88; RESP 19; O2SAT 98
[2024-08-01 10:57] VITALS: BP 133/58; PULSE 86; RESP 17; O2SAT 92
[2024-08-01] MEDS: hydrOXYzine HCL 25 MG TABLET PO (13:26)
[2024-08-01 14:00] VITALS: BP 143/61; PULSE 83; RESP 15; O2SAT 93
--- NOTE | 2024-08-01 15:55 | MHC.CM.ED ---
Received case management consult from Michelle ARELLANO. Physical therapy eval ordered. Unavailable until tomorrow, Friday, 08/02. Will assess patient after physical therapy eval. Continue to monitor for d/c needs.
[2024-08-01] MEDS: HaloperidoL 5 MG TABLET PO (16:54)
[2024-08-01] MEDS: diphenhydrAMINE HCL 25 MG CAPSULE PO (16:54)
--- NOTE | 2024-08-01 17:04 | PC.NURSE ---
Patient called out to staff reporting that she is bleeding . No bleeding identified. Patient is restless, requesting cream for pain. Also reports itching at umbilicus & underneath pannus. Patient removed BP cuff, oxygen tubing, and cardiac monitoring from self. Monitoring devices reapplied. EILEEN Mejia aware and came to bedside. Patient agreed to PO Haldol & Benadryl. Swallowed water well. IV access to right bicep is patent/intact, flushed with normal saline 10mL. Vitals stable, care ongoing by this RN.
--- NOTE | 2024-08-01 20:40 | PC.NURSE ---
this rn assisted pt to the bathroom, pt 1A to bathroom with only a few steps. pt given mesh underwear after noted to soil underwear.
--- NOTE | 2024-08-01 21:17 | PC.NURSE ---
Patient requested and given water. No acute distress. 1 person assist to bathroom by Renate Griffin RN. Patient was incontinent of urine. New/clean hospital pants given. Awaiting case management/PT tomorrow.
[2024-08-01 22:00] VITALS: BP 165/78; PULSE 66; RESP 16; TEMP 36.4; O2SAT 99
--- NOTE | 2024-08-02 01:01 | PC.NURSE ---
pt assisted to bathroom. requested and provided water.
[2024-08-02] MEDS: hydrOXYzine HCL 50 MG TABLET PO (02:23)
--- NOTE | 2024-08-02 02:27 | PC.NURSE ---
PT endorsing itchiness. PT medicated as per JUL. drank whole with water with no issue. Safety precautions in place. plan of care ongoing
[2024-08-02 06:33] VITALS: BP 150/76; PULSE 85; RESP 16; TEMP 36.6; O2SAT 95
[2024-08-02 07:58] VITALS: BP 186/82; PULSE 97; RESP 16; TEMP 36.4; O2SAT 91
--- NOTE | 2024-08-02 09:10 | PHA.MEDREC ---
Pharmacy Consult ? Medication Reconciliation Pharmacy has reviewed the medication reconciliation done by RN, Claims utilized.
[2024-08-02 10:40] VITALS: BP 171/84; PULSE 85; RESP 16; O2SAT 97
[2024-08-02 10:44] VITALS: BP 171/84; PULSE 85
[2024-08-02] MEDS: Famotidine 20 MG TABLET PO (10:44)
[2024-08-02] MEDS: ALPRAZolam 0.25 MG TABLET PO (10:44)
[2024-08-02] MEDS: Acetaminophen 325 MG TABLET 650 MG PO (10:44)
[2024-08-02] MEDS: Metoprolol Succinate ER 50 MG TAB.ER.24H PO (10:44)
--- NOTE | 2024-08-02 10:44 | MHC.CM.ED ---
Patient currently in ER. Physical therapy eval completed. Rehab is recommended. Patient has not been inpatient in any facility in the past 30 days. Referrals made to all 3 acute rehab facilities. Continue to monitor for d/c needs.
[2024-08-02] MEDS: Digoxin 0.125 MG TABLET PO (10:45)
--- NOTE | 2024-08-02 11:55 | MHC.CM.ED ---
Addendum entered by Veronica Patricio 08/02/24 12:07: Spoke with patient's sister, Lili. Lili is sick herself and is unable to transport patient home. Chele SALCIDO booked for 3pm. Med [facility] with chart. Original Note: No acute rehab beds offered. Met with patient to discuss discharge planning. Patient reports being active with [facility]. Patient reports her daughter Lili will transport home. [facility] made aware of ER visit. Patient, Krystin RN and Christina ARELLANO aware. Continue to monitor for d/c needs.
--- NOTE | 2024-08-02 12:24 | PC.NURSE ---
spoke with pt son ltei guerrier advised pt scheduled for transport back home via BLS at 1500
[2024-08-02 14:13] VITALS: BP 169/88; PULSE 92; RESP 15; TEMP 36.4; O2SAT 93
[2024-08-02 17:02] VITALS: BP 169/88; PULSE 92; RESP 15; TEMP 36.4; O2SAT 93
== END 2024-08-02 17:03 | disposition home or self-care (01) ==
PROVIDERS: Physician Assistant; Emergency Provider Emergency Medicine; PCP Internal Medicine
DX: L29.9 Pruritus, unspecified (principal); R10.32 Left lower quadrant pain; R11.0 Nausea; R26.2 Difficulty in walking, not elsewhere classified; R47.81 Slurred speech; I48.91 Unspecified atrial fibrillation; I51.7 Cardiomegaly; R94.31 Abnormal electrocardiogram [ECG] [EKG]; Z03.818 Encounter for observation for suspected exposure to other biological agents ruled out; Z79.899 Other long term (current) drug therapy
CPT/HCPCS: 0241U; 70450; 71045; 74177; 80053; 81001; 83735; 84484; 85025; 93005; 97162; 99285; J2270; J2405; Q9967

== ENCOUNTER → 2024-08-01 07:11 | Outpatient (BNV) | payer MEDICARE, OTHER, SELFPAY | PROVIDERS: Emergency Provider Emergency Medicine; PCP Internal Medicine; Visit Provider Internal Medicine Cardiovascular Disease | DX: I48.91 Unspecified atrial fibrillation (principal); R94.31 Abnormal electrocardiogram [ECG] [EKG]; R53.1 Weakness | CPT/HCPCS: 93010 ==

== ENCOUNTER → 2024-08-01 07:43 | Outpatient (BNV) | payer MEDICARE, OTHER, SELFPAY | PROVIDERS: Emergency Provider Emergency Medicine; PCP Internal Medicine; Visit Provider Radiology Diagnostic Radiology | DX: R10.32 Left lower quadrant pain (principal); R47.81 Slurred speech; R53.1 Weakness; R06.02 Shortness of breath | CPT/HCPCS: 70450; 71045; 74177 ==

== ENCOUNTER 2024-10-05 10:57 | Outpatient (AMB) | payer MEDICARE, OTHER, SELFPAY ==
--- NOTE | 2024-10-05 11:04 | MHC.PC.OV ---
Vital Signs 10/05/24 11:09 Height 4 ft 10 in Weight 136 lb BMI 28.4 BP 120/60 Blood Pressure Location Lt brachial Position Sitting Pulse 63 Pulse Source Pulse Oximeter Temp 97.5 F Temp Source Temporal Artery Scan Pulse Oximetry (%) 95 Oxygen Delivery Method Room Air Intake Visit Reasons: needs a visit for refill of zolpidem Intake Note: Patient is here to follow up on med review. Shadow Graph Weight Operator Required: No Industrial Cook: Present Accompanied by: Friend Is last menstrual period known: No Post menopausal: No Patient : No Allergies ciprofloxacin Allergy (Severe, Verified 10/05/24 11:24) unknown aspirin [Aspirin] Allergy (Unknown, Verified 10/05/24 11:24) UNKNOWN cefuroxime Allergy (Unknown, Verified 10/05/24 11:24) Unknown celecoxib [From Celebrex] Allergy (Unknown, Verified 10/05/24 11:24) UNKNOWN metformin Allergy (Unknown, Verified 10/05/24 11:24) diarrhea risedronate sodium [From Actonel] Allergy (Unknown, Verified 10/05/24 11:24) UNKNOWN Sulfa (Sulfonamide Antibiotics) Allergy (Unknown, Verified 10/05/24 11:24) unknown bupropion Adverse Reaction (Intermediate, Verified 10/05/24 11:24) tremor ferrous sulfate Adverse Reaction (Intermediate, Verified 10/05/24 11:24) tremors sertraline Adverse Reaction (Intermediate, Verified 10/05/24 11:24) tremors Medication List - Last Reconciled 10/05/24 by Soledad Agudelo PA-C alprazolam 0.25 mg PO DAILY PRN alprazolam 0.25 mg PO DAILY PRN ascorbic acid (vitamin C) (Vitamin C) 500 mg PO DAILY blood sugar diagnostic (FreeStyle Lite Strips) As directed check the BS QD cholecalciferol (vitamin D3) 25 mcg PO DAILY cyanocobalamin (vitamin B-12) (Vitamin B-12) 1,000 mcg PO DAILY diclofenac sodium 1% 1 ea topical QID digoxin 125 mcg PO 3XW 90 days famotidine 20 mg PO DAILY hydroxyzine HCl 25 mg PO Q8H PRN incontinence pad, liner, disp As directed lancets (FreeStyle Lancets) use to test sugar once a day lidocaine 5% 1 patch topical DAILY metoprolol succinate ER 50 mg PO DAILY nystatin 1 appl topical DAILY [PEDIATRIC FRONT WHEELED WALKER As directed] pregabalin 100 mg PO Q12H 31 days tamsulosin 0.4 mg PO BEDTIME zolpidem 5 mg PO BEDTIME PRN Tobacco use date assessed: 10/05/24 Fall risk assessment: 2 + Falls in past year (10/01/24) Last assessed Fall Risk: 10/05/24 Dental Screening Dental Screen Date: 07/06/24 HPI needs a visit for refill of zolpidem HPI Details 89-year-old female with a past medical history of hypertension, hypercholesterolemia, GERD, diabetes mellitus, generalized anxiety disorder, coronary artery disease, history of TIA, atrial fibrillation, congestive heart failure last seen 07/2024 coming in for follow up. In review of the notes, patient was seen in [facility] 08/01/2024 for left lower quadrant abdominal pain CT abdomen/pelvis and CT of the head unremarkable patient was given hydroxyzine as needed for itching and discharged home. Seen by urology 07/2024 continue Flomax and surveillance at this time repeat PVR and follow up in 6 months. Presenting with difficulties in diabetes management due to medication discrepancies and blood sugar variability despite stable weight management. Complaints include abdominal pain aside from her known hiatal hernia and chronic bowel movement challenges, marked by diarrhea after MiraLAX and Metamucil usage. Incontinence, backaches, and prescription inconsistencies exacerbate her healthcare management. She also has ongoing concerns regarding past surgery effects after childbirth contributing to her bowel incontinence. 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 [facility] Medical History (Updated 10/05/24 @ 11:44 by Soledad Agudelo PA-C) Diarrhea Constipation Weakness Dizziness and giddiness Weakness Yeast infection of the skin Exercise hypoxemia Acute respiratory failure with hypoxia Lipoma of lower back Urinary incontinence Cystitis Acute urinary retention Acute diverticulitis of intestine Generalized abdominal pain Diverticular disease Nausea & vomiting Failure to thrive in adult TSH elevation CHF (congestive heart failure) Atrial fibrillation with RVR Atrial fibrillation with RVR Type 2 diabetes mellitus with hyperglycemia Diabetes mellitus Asthma Hypokalemia Hypomagnesemia Hearing difficulty Dyspnea on exertion History of gastrointestinal diverticular hemorrhage COVID-19 virus infection Rectal bleeding Medicare annual wellness visit, initial Hip pain, left Patellar sleeve fracture of right knee Knee pain, right Nausea and vomiting Coarse tremors Shoulder pain, right Hospital discharge follow-up Mass on back Tinea corporis Nausea Right wrist pain Left knee pain Left hip pain Toe pain, left Breast cancer screening by mammogram UTI (urinary tract infection) Obesity (BMI 30-39.9) Urinary frequency Toe fracture, left Pancreatic cyst Osteoporosis Peptic ulcer disease Urinary incontinence Rectal incontinence GERD (gastroesophageal reflux disease) Bile salt-induced diarrhea Vaginal prolapse Renal artery stenosis Asthma Lumbar degenerative disc disease Insomnia TIA (transient ischemic attack) Hyperlipidemia, unspecified Essential hypertension Surgical History Hx of colonoscopy History of esophagogastroduodenoscopy (EGD) History of removal of cyst (~10/17/21) History of hemorrhoidectomy History of colectomy History of section History of hysterectomy History of appendectomy History of cholecystectomy Family History Father Cancer Arterial thrombosis Mother Multiple sclerosis Muscular dystrophy Hypertension Depression Chronic mental illness Mental health disorder Brother No problems noted. Brother Gangrene Sister No problems noted. Son No problems noted. Son No problems noted. Son No problems noted. Son No problems noted. Daughter No problems noted. Daughter No problems noted. Daughter No problems noted. Social History Household Members: None Housing: Apartment Do you presently have visiting nurse or other home services: Yes Alcohol intake: former Comment: 1:1 sitter Patient Tobacco Use Status: Former Tobacco user Tobacco use type: Cigarette Years Smoked: 22 e-Cigarette/Vaping Use: Former Use Second Hand Smoke Exposure: Yes Advance Directives Date on File: 08/06/23 service: No Current occupational status: disabled Current occupational exposures/hazards: No Cognitive needs: Yes (walker) Hearing needs: Yes Vision needs: Yes (Glasses) Questionnaire PHQ-9 Over the last 2 weeks, how often have you been bothered by any of the following problems? 1. Little interest or pleasure in doing things: nearly every day 2. Feeling down, depressed, or hopeless: nearly every day 3. Trouble falling or staying asleep, or sleeping too much: nearly every day 4. Feeling tired or having little energy: nearly every day 5. Poor appetite or overeating: nearly every day 6. Feeling bad about yourself - or that you are a failure or have let yourself or your family down: nearly every day 7. Trouble concentrating on things, such as reading the newspaper or watching television: not at all 8. Moving or speaking so slowly that other people could have noticed. Or the opposite - being so fidgety or restless that you have been moving around a lot more than usual: more than half the days 9. Thoughts that you would be better off or of hurting yourself in some way: not at all Total score: 20 Source: Developed by Drs. Brandon Villeda, Vijaya Damon, Jaydon Easley and colleagues, with an educational phi from [employer]. Thrive Questionnaire Date Thrive assessed: 07/06/24 I am a: Patient What is your living situation today?: I have a steady place to live Within the past 12 months, did the food you bought not last and you didn't have the money to get more?: Sometimes True Within the past 12 months, did you worry whether your food would run out before you got money to buy more?: Sometimes True Do you have trouble paying for medicines?: Yes Do you have trouble getting transportation to medical appointments?: Yes Do you have trouble paying your heating and electricity bill?: No Do you have trouble taking care of your child, family member or friend?: No Do you have trouble with day-to-day activities such as bathing, preparing meals, shopping, managing finances, etc.?: No Are you currently unemployed and looking for a job?: No Are you interested in more education?: No Please select the resources that you would like help with: None Currently or been in a relationship where the following occur: No concerns reported THRIVE Score: 3 AUDIT C Alcohol Use Questionnaire (AUDIT-C) 1. How often do you have a drink containing alcohol?: Never Total Score: 0 MERY-7 AMB Questionnaire MERY-7 Date MERY - 7 assessed: 07/06/24 Feeling nervous, anxious, or on edge: 3 = Nearly every day Not being able to stop or control worryin = Nearly every day Worrying too much about different things: 3 = Nearly every day Trouble relaxin = Nearly every day Being so restless that it is hard to sit still: 0 = Not at all Becoming easily annoyed or irritable: 3 = Nearly every day Feeling afraid as if something awful might happen: 0 = Not at all Total MERY-7 score (0-4 normal; 5-9 mild; 10-14 moderate; 15-21 severe): 15 Source: Developed by Drs. Brandon Villeda, Vijaya Damon, Jaydon Easley and colleagues, with an educational phi from [employer]. Review of Systems Const Denies body aches, Denies chills, Denies fever(s), Denies headache(s) and Denies poor appetite Eyes Reports no additional complaints ENT Denies dysphagia, Denies dizziness, Denies headache(s) and Denies odynophagia Card Denies chest pain, Denies syncope, Denies edema, Denies irregular heart rhythm, Denies lightheadedness and Denies dyspnea Resp Denies cough and Denies dyspnea GI Denies abdominal pain, Reports constipation, Denies dysphagia, Reports dyspepsia, Reports heartburn, Reports diarrhea, Denies nausea, Denies odynophagia and Denies vomiting Reports no additional complaints Musc Reports no additional complaints and Denies abnormal gait Skin/Breast Reports system reviewed and no additional complaints, except as documented Neuro Denies abnormal gait, Denies dizziness, Denies syncope and Denies headache(s) Psych Reports no additional complaints Physical exam (Primary Care) Vital Signs: Last Vital Signs Temp 97.5 F 10/05/24 11:09 Pulse 63 10/05/24 11:09 BP 120/60 10/05/24 11:09 Pulse Ox 95 10/05/24 11:09 Oxygen Delivery Method Room Air 10/05/24 11:09 BMI result Body Mass Index 28.4 Tobacco/Smoking Status: Tobacco use Status Tobacco use date assessed 10/05/24 10/05/24 11:17 Patient Tobacco Use Status Former Tobacco user 10/05/24 11:17 Tobacco use type Cigarette 10/05/24 11:17 e-Cigarette/Vaping Use Former Use 10/05/24 11:17 PHQ-9: PHQ-9 Score PHQ-9: Total score 20 10/05/24 12:02 Thrive Assessment: Date of Thrive Assessment Date Thrive assessed 07/06/24 10/05/24 11:17 Currently or been in a relationship where the following occur: No concerns reported Const General: cooperative, healthy appearing, comfortable and no acute distress Orientation/consciousness: patient oriented x3 HENMT Head: Yes normocephalic Ears: hearing grossly normal bilaterally General nose exam: Normal external nose present Eyes General: appearance normal, both eyes and all related structures Conjunctivae: conjunctivae normal Neck Neck: Yes full ROM and Yes no lymphadenopathy Resp Effort & Inspection: normal respiratory effort Auscultation: clear to auscultation bilaterally, no crackles, no rales, no rhonchi and no wheezes Cardio Rate: regular rate Rhythm: regular rhythm GI Palpation (GI): not soft, not firm, Tenderness to palpation present (GI) in the epigastrum, no guarding, not rigid, no masses, no pulsatile masses and No Rebound tenderness present Skin General skin exam: no rashes or lesions noted Neuro General: patient oriented x3 Gait exam (Neuro): Normal gait present Extrem General: Yes normal to inspection, Yes full ROM and No edema Psych Affect: normal affect Attitude: cooperative Insight: Good insight present (Psych) Judgement: Good judgement present (Psych) Results AMB Hemoglobin A1c AMB Hemoglobin A1c 7.3 % Last Edit by AUSTIN Colon on 10/05/24 12:02 Results Reviewed Results Reviewed: Laboratory Last Values Hgb A1c (Clinic) 7.3 % (4.0-6.0) H 10/05/24 11:33 Coding Level of Care Code Est Pt Level 4 (42152) Diagnoses Congestive heart failure with preserved left ventricular function, NYHA class 3 I50.30 Type 2 diabetes mellitus with hyperglycemia, without long-term current use of insulin E11.65 Diabetes mellitus buttermaker continuous churn insulin use: without buttermaker continuous churn use Gastroesophageal reflux disease without esophagitis K21.9 Esophagitis presence: without esophagitis Essential hypertension I10 Hyperlipidemia, unspecified hyperlipidemia type E78.5 Hyperlipidemia type: unspecified Rectal incontinence R15.9 Constipation K59.00 Diarrhea R19.7 Assessment & Plan Assessment & Plan (1) Congestive heart failure with preserved left ventricular function, NYHA class 3: Code(s): I50.30 - Unspecified diastolic (congestive) heart failure Category: Medical Plan: Referral was placed to Cardiology by Dr. Jacobs and patient has a appointment coming up. (2) Type 2 diabetes mellitus with hyperglycemia: Code(s): E11.65 - Type 2 diabetes mellitus with hyperglycemia Category: Medical Qualifiers: Diabetes mellitus skilled nursing insulin use: without skilled nursing use Qualified Code(s): E11.65 - Type 2 diabetes mellitus with hyperglycemia Plan: Decrease the amount of carbohydrates such as pasta, bread, rice, and potatoes and limit the amount of sweets. Although fruits are generally healthy they should be eaten in moderation as they are still high in sugar. Hemoglobin A1c goal of less than 7%. A1c elevated today. She is not a candidate for Metformin as it makes her sick, she cannot use glipizide as she does not have consistent meals and Januvia and Pioglitazone are CI in heart failure. Plan to start on GLP-1 injection weekly. Patient was counseled today on the risks and benefits of GLP-1 injections as well as the dosing schedule. She has no family history or personal history of thyroid disease and no gallbladder disease. Discussed with the patient the potential GI side effects of this medication. Plan to have repeat blood work after one month of therapy to monitor kidney and liver function before increasing the dose of this medication. Follow up in 3 months. (3) GERD (gastroesophageal reflux disease): Code(s): K21.9 - Gastro-esophageal reflux disease without esophagitis Category: Medical Qualifiers: Esophagitis presence: without esophagitis Qualified Code(s): K21.9 - Gastro-esophageal reflux disease without esophagitis Plan: Avoid trigger foods such as citrus, tomato products, soda, caffeine, spicy foods and other foods that may be irritating to your stomach. Avoid laying flat 3-4 hours after eating and elevate the head of the bed 30 degrees to prevent acid from moving into the esophagus. Increased Famotidine to 40 mg today as she is c/o worsening reflux. (4) Essential hypertension: Code(s): I10 - Essential (primary) hypertension Category: Medical Plan: Continue on current blood pressure medication. Avoid salt intake and encourage healthy diet and regular exercise. (5) Hyperlipidemia, unspecified: Code(s): E78.5 - Hyperlipidemia, unspecified Category: Medical Qualifiers: Hyperlipidemia type: unspecified Qualified Code(s): E78.5 - Hyperlipidemia, unspecified Plan: Avoid foods that are high in cholesterol such as red meat, fried foods, eggs and baked goods. Triglyceride goal of less than 150 and LDL goal of less than 70. Continue on Atorvastatin as prescribed. Advised patient to reach out to the office with updated med list as it is unclear what medications she is taking. (6) Rectal incontinence: Code(s): R15.9 - Full incontinence of feces Category: Medical Plan: Referral was placed to GI today for further workup and evaluation. Advised to avoid triggers for diarrhea. (7) Constipation: Code(s): K59.00 - Constipation, unspecified Category: Medical Plan: Three rules of constipation; drink water, plenty of fiber and activity as tolerated. PAtient does have to monitor her fluid intake due to heart failure and this was discussed with the patient today. (8) Diarrhea: Code(s): R19.7 - Diarrhea, unspecified Category: Medical Plan: Patient having alternating diarrhea and constipation. I did recommend GI workup at this time as she has a complicated GI history and symptoms. Advised to limit her use of miralax as this seems to be a trigger for her. Plan For the effective management of her diabetes, we reinstated Eliquis and Jardiance to resolve discrepancies in her medication regimen. We will consider injectable therapies for better action upon her elevated hemoglobin A1c. Additionally, management of her gastrointestinal issues with Suzanne CAIN is essential due to her chronic constipation and anal discomfort. This plan follows mutual discussions about discontinuing former medications affecting her health negatively. We will monitor atrial fibrillation closely under treatment with Eliquis. Furthermore, addressing her pain management through creams and famotidine will be prioritized, ensuring proper administration guidance. Future evaluations will include determining the need for cataract interventions based on scheduled ophthalmologic reviews. Close monitoring of blood sugar adherence, potential cholesterol concerns, and psychosocial factors affecting her living situation were also acknowledged. This note was constructed using voice recognition software. While every effort has been made to ensure accuracy and quality assurance supervisor body, still areas may have been included sometimes these areas may affect the content or meeting of the given symptoms. Total time spent caring for the patient today was 20 minutes. This includes time spent before the visit reviewing the chart, time spent during the visit, and time spent after the visit and documentation. Patient was informed and verbally consented to the use of an ambient scribe for clinic note documentation during this visit. Orders: Orders AMB Hemoglobin A1c Today E11.65 - Type 2 diabetes mellitus with hyperglycemia Referrals Gastroenterology Referral K59.00 - Constipation, unspecified, R15.9 - Full incontinence of feces, R19.7 - Diarrhea, unspecified Medications: New atorvastatin (Lipitor) 40 mg PO BEDTIME 90 tabs 0RF famotidine 40 mg PO BEDTIME 90 tabs 0RF semaglutide (Ozempic) for 4 weeks 0.25 mg (0.368 mL) subcut QWEEK 3 mL 0RF nystatin 1 appl topical DAILY 30 grams 0RF Refilled empagliflozin (Jardiance) 25 mg PO DAILY 90 tabs 0RF zolpidem 5 mg PO BEDTIME PRN 30 tabs 0RF insomnia apixaban (Eliquis) 2.5 mg PO BID 180 tabs 3RF I48.0 - Paroxysmal atrial fibrillation Discontinued nystatin Discontinued Reason: Patient no longer taking 1 appl topical DAILY 15 grams 0RF
[2024-10-05 11:09] VITALS: BP 120/60; PULSE 63; TEMP 36.4; O2SAT 95; BMI 28.4
--- OUTSIDE RECORDS SUMMARY | 2024-10-05 12:39 | XMS_ITS | Continuity of Care Document ---
Author Organization [facility] Address [address] [address] Phone Care Team Providers Care Senior International Tax Manager Name Role Phone Unavailable Unavailable Unavailable Advance Directives Directive Yes / No Effective Date File Name No Information Encounters Encounter Description Practice Location Reason(s) For Visit Diagnoses Date Provider [facility], [address] [address], [place], [place], [id number], tel:[phone] No Information 2019 No Information Family History Family Member Type Diagnosis Age [...]
--- OUTSIDE RECORDS SUMMARY | 2024-10-05 12:40 | XMS_ITS | Data Portability ---
Author Organization [facility], [facility] Address [address] [place] [address] Care Team Providers Care Para Educator Name Role Phone BETYALYSSA Primary Care Provider KIMBER FERGUSON Cushion Installer JEISON RAMIREZ Splitter Machine [phone] Assessment Encounter Date Assessment Date Assessment LastModified by Organization Details LastModified Time 08/27/2022 08/27/2022 Type 2 diabetes mellitus with peripheral neuropathy, dystrophic toenails, hyperkeratotic lesions jerskine Not available 08/27/2022 12:08:41 04/08/2023 04/08/2023 Type 2 diabetes mellitus with peripheral neuropathy, dystrophic toenails, hyperkeratotic lesions jerskine Not available 04/08/2023 12:08:15 06/16/2023 06/16/2023 RTC per test engineer nuclear equipment [email or web address] Not available 06/16/2023 16:30:13 06/17/2023 06/17/2023 [...] vision, cataracts, glaucoma suspect. 2023 024 [email or web address] [facility], [address] [place], [address], 14:46:35 Procedures None recorded. Surgeries None recorded. Imaging None recorded. Medication Orders None recorded. Patient TargetsNo targets recorded. Patient Instructions Encounter Date Encounter Id Patient Instructions Last Modified By Organization Details Last Modified Time 08/27/2022 [id number] Patient to retur n in 9 weeks for foot care to reduce risk of complications associated with type 2 diabetes mellitus with peripheral neuropathy. jerskine Not available 08/27/2022 12:08:41 04/08/2023 [id number] Patient to retur n in 9 weeks for foot care to reduce risk of complications associated with type 2 diabetes mellitus with peripheral neuropathy. jerskine Not available 04/08/2023 12:08:15 06/16/2023 [id number] attempted gonioscopy today, patient unable to keep eyes open. will refer back to Dr. ingram. [email or web address] Not available 06/16/2023 16:45:37 06/17/2023 [id number] Patient to retur n in 9 weeks for foot care to reduce risk of complications associated with type 2 diabetes mellitus with peripheral neuropathy. jerskine Not available 06/17/2023 11:48:06 10/22/2023 [id number] Patient to retur n in 9 weeks for foot care to reduce risk of complications associated with type 2 diabetes mellitus with peripheral neuropathy. jerskine Not available 10/22/2023 09:43:46 Reason for Referral Regional Economic Liaison Referral for Narrow angle narrow angle, blurry vision, cataracts, glaucoma suspect. Referring Physician: Nelly Ramirez, Optometry, Encounter Date: 06/16/2023 Problems Name Problem SNOMED Code Status Onset Date Resolution Date Notes Provider Name and Address Organization Details Recorded Time Diabetes mellitus 14468740 Active [address] [facility] 7 15:01:40 Hypertens hernán disorder 62019274 [facility] Hyperchol esterolem ia 11243127 [facility] 15[facility]42 Vitamin B12 level below reference range 288847835 [facility] 15:04[facility]24 History of transient ischemic attack 734164602 [facility] 15:19:34 Insomnia 347756952 [facility] 15:19:49 Anxiety 63968605 [facility] 16:11:46 Mass of pancreas 446502354 [facility] 16:12:12 Degenerat ion of intervert ebral disc 30285503 [facility] 16:13:58 Asthma 565522137 [facility] 16:14[facility]15 Renal artery stenosis 600513854 [facility] 16:14:41 Diarrheal disorder 039685768 [facility] 16:16[facility]15 Obesity 766441104 Completed 201611/02/2020 Removal Reason: BMI > or = 35 plus other comorbid ities. MIKE Montalvo [facility] 1 06:00:34 Morbid obesity 093633714 Active 2020 BMI > or = 35 plus other comorbid ities. MIKE Montalvo [facility] 1 06:00:43 Disorder of nervous 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 599145245 Active 2020 coded 09/05/[address] Podiat[address] MIKE [facility]al[address] [facility] 1 06:02:58 Problem Notes None recorded. Procedures Surgical History Date Name Laterality Status Provider Name and Address Organization Details Recorded Time 06/16/19 24 Refraction completed Nelly Ramirez, [address], [place], [address], [facility] 06/16/2023 16:41:05 03/29/20 22 Refraction completed Nelly Ramirez, OD [address] [place], [address], [facility] 2022 17:28:54 12/06/19 21 Fundus Photography completed Nelly Ramirez, OD [address] [place], [address], [facility] 12/05/2020 13:46:33 12/06/19 21 [address]raction [address] [facility] 12/05/2020 10:52:45 03/09/20 18 [facility] 03/09/2018 10:41:18 08/06/19 18 Visual field comprehensive completed Nelly Ramirez, OD [address] [place], [address], [facility] 08/07/2017 10:31:26 05/06/20 17 Pachymetry completed [facility] 05/06/2017 11:53:13 05/06/20 17 Visual field comprehensive completed [facility] 05/06/2017 11:52:41 05/06/20 17 Optical Coherence Tomography (Optic Nerve) completed [facility] 05/06/2017 11:52:37 03/04/20 17 Refraction completed [facility] 03/04/2017 13:39:17 Imaging Results None recorded. Procedure Notes None recorded. Medical Equipment None Reported. Allergies Allergen ID Allergen Name Allergen Category Reaction Reaction Severity Criticality Documentation Date Start Date Code Code System Note Provider Name and Address Organization Details Recorded Time 436065 salicylic acid medicatio n Not available Not available Not available 03/09/2013 9525 Rx[facility] 10:05:07 327034 Celebrex medicatio n Not available Not available Not available 03/09/2013 98823 7 RxNorm Bleed ing EDEN Stoner [facility] 3 10:05:07 611016 Actonel medicatio n Not available Not available Not available 03/09/2013 49547 3 RxNorm Bleed ing Wanda Rea, ASSEMBLY RIVETER null, [facility] 3 10:05:07 214223 Substance with sulfonami de structure and antibacte rial mechanism of action (substanc e) medicatio n other Not available Not available 06/07/2020 43340 8003 SNOMED lose s mind Qian Morton [facility] 1 10:53:29 657700 aspirin medicatio n Not available Not available Not available 12/05/[address] [facility], [facility] 1 [...] 5 mg-1.5 mg/5 mL (5 mL) oral solution Take 5 mL every 4 hours by [...] /min 102 mm[Hg] 64 mm[Hg] Qian Morton [facility] 08/27/2022 11:54:19 Date Recorded Body height Provider Name an d Address Organization Details Last Updated DateTime 06/17/2023 147.32 cm Qian Morton [facility] 06/17/2023 11:14:13 Date Recorded Body height Provider Name an d Address Organization Details Last Updated DateTime 10/22/2023 147.32 cm Qian Morton [facility] 10/22/2023 09:20:46 Social History Question Answer Notes LastModified by Organizat ion Details LastModified Time Tobacco Smoking Status Former Smoker quit 15 years ago 03/08/13-EDEN [place], [place] - [facility] 03/09/2013 10:03:25 When Did You Quit Smoking? [email or web address] Information not available 03/20/2021 What Was The Date Of Your Most Recent Tobacco Screening? 03/20/2021 [email or web address] Information not available 03/20/2021 Do You Or Have You Ever Used Any Other Forms Of Tobacco Or Nicotine? No [email or web address] Information not available 01/09/2021 Sex: Unknown Functional Status None recorded. Mental Status None recorded. Family History Nothing Reported. Medical History No medical history recorded. Gynecological HistoryNo gynecological history recorded. Obstetrics History GPAL:G 0 P 0 0 0 0 Past Encounters Encounter ID Performer Location Encounter Start Date Encounter Closed Date Diagnosis/Indication Diagnosis SNOMED-CT Code Diagnosis ICD10 Code Diagnosis Note [id number] Kimber Ferguson DPM Podiatr, [address] [address] 03/09/2013 09:22:50 03/09/2013 10:30:31 Disorder of nervous 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 148724224 Corns and callus 004757324 Disorder of nail 38810955 [id number] Kimber Ferguson DPM Podiatr, [place] [address] 04/27/2013 10:25:59 04/27/2013 10:48:29 Disorder of nervous 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 038734069 Corns and callus 601453934 Disorder of nail 62145651 [id number] Kimber Ferguson DPM Podiatr, [address] [address] 06/29/2013 10:07:01 06/29/2013 10:32:54 Disorder of nervous 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 054793809 Corns and callus 486737912 Disorder of nail 01869267 [id number] Kimber Ferguson DPM Podiatr, [address] [address] 08/31/2013 09:24:47 08/31/2013 10:06:39 Disorder of nervous 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 435987545 Corns and callus 925177807 Disorder of nail 28441198 [id number] Kimber Ferguson DPM Podiatry, [address] [address] 11/09/2013 08:16:40 11/09/2013 11:01:36 Disorder of nervous 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 370656194 Corns and callus 899069429 Disorder of nail 83993175 [id number] Kimber Ferguson DPM Podiatry, [address] [address] 01/18/2014 08:30:34 01/18/2014 09:14:28 Disorder of nervous 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 492915000 Corns and callus 766029232 Disorder of nail 85965937 [id number] Kimber Ferguson DPM Podiatry, [address] [address] 03/22/2014 09:19:47 03/22/2014 10:18:39 Disorder of nervous 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 593499096 Corns and callus 527016368 Disorder of nail 77179550 [id number] Kimber Ferguson DPM Podiatr, [address] [address] 05/31/2014 08:48:25 05/31/2014 09:28:42 Disorder of nervous 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 939490957 Disorder of nail 22647150 [id number] Kimber Ferguson DPM Podiatr, [address] [address] 08/02/2014 09:17:07 08/02/2014 09:59:15 Disorder of nervous 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 352268553 Disorder of nail 84021188 [id number] Kimber Ferguson DPM Podiatry, [address] [address] 10/04/2014 10:10:29 11/08/2014 14:34:50 Disorder of nervous 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 573260343 Disorder of nail 04317527 [id number] Kimber Ferguson DPM Podiatry, [address] [address] 12/08/2014 13:41:30 12/08/2014 14:06:58 Disorder of nervous 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 303682818 Disorder of nail 13327423 [id number] Kimber Ferguson DPM Podiat[facility], [address] [address] 02/09/2015 11:17:13 02/09/2015 11:50:58 Disorder of nervous 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 661745461 Disorder of nail 82000953 [id number] Kimber Ferguson DPM Podiatry, [address] [address] 04/13/2015 11:33:27 04/13/2015 14:25:00 Disorder of nervous 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 619830670 E11.49 Hypertrophy of nail 3065 4002 L60.2 Corns and callus 4960613 00 L84 [id number] Kimber Ferguson DPM Podiatr[address] [address] 06/15/2015 11:26:17 06/15/2015 11:52:44 Disorder of nervous 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 811633085 E11.49 Hypertrophy of nail 3065 4002 L60.2 Corns and callus 1527708 00 L84 [id number] Kimber Ferguson DPM Podiatr, [address] [address] 08/24/2015 11:24:07 08/24/2015 12:03:54 Disorder of nervous 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 970042739 E11.49 Hypertrophy of nail 3065 4002 L60.2 Corns and callus 1519313 00 L84 [id number] Kimber Ferguson DPM Podiatr[address] [address] 11/02/2015 11:21:07 11/02/2015 11:52:06 Disorder of nervous system due to type 2 diabetes mellitus 519405894 E11.49 Disorder of nail 2693212 8 L60.9 Corns and callus 4453405 00 L84 [id number] Kimber Ferguson DPM Podiatry, [address] [address] 01/04/2016 11:38:07 01/04/2016 12:34:53 Disorder of nervous system due to type 2 diabetes mellitus 804450641 E11.49 Disorder of nail 7021521 8 L60.9 Corns and callus 5206681 00 L84 [id number] Kimber Ferguson DPM Podiatry, [address] [address] 03/05/2016 09:49:57 03/05/2016 10:12:20 Disorder of nervous system due to type 2 diabetes mellitus 362847562 E11.49 Corns and callus 1521314 00 L84 Hypertrophy of nail 3065 4002 L60.2 [id number] Kimber Ferguson DPM Podiatry, [address] [address] 05/07/2016 09:53:16 05/07/2016 10:54:12 Hypertrophy of nail 85925637 L60.2 Disorder o f nervous system due to type 2 diabetes mellitus 541086039 E11.49 Corns and callus 9710343 00 L84 [id number] Kimber Ferguson DPM Podiatry, [address] [address] 07/16/2016 12:23:39 07/16/2016 13:53:52 Disorder of nervous system due to type 2 diabetes mellitus 777415752 E11.49 Corns and callus 9734065 00 L84 Hypertrophy of nail 3065 4002 L60.2 [id number] Kimber Ferguson DPM Podiatry, [address] [address] 09/10/2016 10:23:26 09/10/2016 10:56:43 Disorder of nervous system due to type 2 diabetes mellitus 383551210 E11.49 Corns and callus 5981682 00 L84 Hypertrophy of nail 3065 4002 L60.2 [id number] Kimber Ferguson DPM Podiatry, [address] [address] 11/12/2016 10:46:15 11/12/2016 11:19:30 Disorder of nervous system due to type 2 diabetes mellitus 429556012 E11.49 Corns and callus [id number] 00 L84 Hypertrophy of nail 3065 4002 L60.2 [id number] Kimber Ferguson DPM Podiatry, [address] [address] 01/21/2017 10:43:51 01/21/2017 11:09:42 Disorder of nervous system due to type 2 diabetes mellitus 625817054 E11.49 Corns and callus [id number] 00 L84 Hypertrophy of nail 3065 4002 L60.2 [id number] Nelly Ramirez, OD [facility], [address] [address] 03/04/2017 13:10:52 03/04/2017 14:34:10 Presbyopia 31179290 H52.4 Glaucoma suspect 4832546 08 H40.011 2' optic nerve appearance . IOP wnl, RTC for further testing. Type 2 leticia betes mellitus without complication 040267294 E11.9 No diabetic retinopath y OU. pt ed on importance of good blood sugar control, monitor 1 yr with CEE [id number] Kimber Ferguson DPM Podiatry, [address] [address] 03/25/2017 10:30:12 03/25/2017 11:29:16 Disorder of nervous system due to type 2 diabetes mellitus 773680464 E11.49 Corns and callus [id number] 00 L84 Hypertrophy of nail 3065 4002 L60.2 [id number] Nelly Ramirez, OD [facility], [address] [address] 05/06/2017 10:25:50 05/06/2017 12:35:42 Glaucoma suspect 101006172 H40.011 2' optic nerve appearance . OCT revealed OD: wnl, OS: borderline segment I/T. IOP wnl (ranges 16-17), CCT avg OU, VF were unreliable and need to be repeated. pt ed on findings and glaucoma. continue to observe for now. RTC 3 months for HVF 24-2ss, IOP check, OCT. [id number] Kimber Ferguson DPM Podiatry, [address] [address] 06/03/2017 11:03:35 06/03/2017 11:54:17 Disorder of nervous system due to type 2 diabetes mellitus 133191679 E11.49 Corns and callus 0416940 00 L84 Hypertrophy of nail 3065 4002 L60.2 [id number] Nelly Ramirez, OD [facility], [address] [address] 08/05/2017 13:00:01 08/05/2017 14:29:13 Glaucoma suspect 185647541 H40.011 2' optic nerve appearance . Baseline OCT on 05/06/17 revealed OD: wnl, OS: borderline segment I/T. IOP wnl (ranges 16-18), CCT avg OU, VF were unreliable x 2. +Diabetes. pt ed on findings and glaucoma. Refer to ophthalmol ogy for eval. [id number] Kimber Ferguson, PATRICK [facility], [address] [address] 08/26/2017 14:43:08 08/26/2017 15:31:16 Disorder of nervous system due to type 2 diabetes mellitus 589680505 E11.49 Corns and callus 7910707 00 L84 Hypertrophy of nail 3065 4002 L60.2 [id number] Kimber Ferguson DPM Podiatry, [address] [address] 11/19/2017 14:10:42 11/19/2017 14:42:40 Disorder of nervous system due to type 2 diabetes mellitus 407664282 E11.49 Corns and callus [id number] 00 L84 Hypertrophy of nail 3065 4002 L60.2 [id number] Nelly Ramirez, OD [facility], [address] [address] 03/09/2018 10:17:41 03/09/2018 11:14:52 Presbyopia 18725338 H52.4 Glaucoma suspect 7715579 08 H40.011 2' optic nerve appearance . Baseline OCT on 05/06/17 revealed OD: wnl, OS: borderline segment I/T. IOP wnl (ranges 16-18), CCT avg OU, VF were unreliable x 2. +Diabetes. saw ophthalmol ogist and recommende d observatio n. f/u 1 yr with CEE and OCT. Type 2 leticia betes mellitus without complication 431960241 E11.9 No diabetic retinopath y OU. pt ed on importance of good blood sugar control, monitor 1 yr with CEE Dry eyes 225925851 H04.1 29 pt ed. recommend hot compresses with lid massage 1-2 x per day and Artificial tears 2-4 x per day. [id number] Kimber Ferguson DPM Podiatry, [address] [address] 06/30/2018 10:07:36 06/30/2018 13:18:22 Disorder of nervous system due to type 2 diabetes mellitus 683224087 E11.49 Corns and callus 5253024 00 L84 Hypertrophy of nail 3065 4002 L60.2 [id number] Kimber Ferguson DPM Podiatry, [address] [address] 09/01/2018 10:30:01 09/01/2018 11:23:42 Disorder of nervous system due to type 2 diabetes mellitus 231950502 E11.49 Corns and callus 3142947 00 L84 Hypertrophy of nail 3065 4002 L60.2 [id number] Kimber Ferguson DPM Podiatr, [address] [address] 11/03/2018 10:42:18 11/03/2018 11:55:21 Disorder of nervous system due to type 2 diabetes mellitus 555169796 E11.49 Corns and callus 1512702 00 L84 Hypertrophy of nail 3065 4002 L60.2 [id number] Kimber Ferguson DPM Podiatry, [address] [address] 01/19/2019 10:50:16 01/19/2019 11:35:02 Disorder of nervous system due to type 2 diabetes mellitus 939920835 E11.49 Corns and callus [id number] 00 L84 Hypertrophy of nail 3065 4002 L60.2 [id number] Kimber Ferguson DPM Podiatry, [address] [address] 03/23/2019 10:46:15 03/23/2019 11:58:20 Disorder of nervous system due to type 2 diabetes mellitus 056157368 E11.49 Corns and callus [id number] 00 L84 Hypertrophy of nail 3065 4002 L60.2 [id number] Kimber Ferguson DPM Podiatry, [address] [address] 06/15/2019 10:42:18 06/15/2019 11:36:52 Disorder of nervous system due to type 2 diabetes mellitus 792088201 E11.49 Corns and callus 5723006 00 L84 Hypertrophy of nail 3065 4002 L60.2 [id number] Kimber Ferguson DPM Podiatry, [address] [address] 06/07/2020 10:45:17 06/07/2020 11:22:58 Disorder of nervous system due to type 2 diabetes mellitus 441470240 E11.49 Corns and callus [id number] 00 L84 Hypertrophy of nail 3065 4002 L60.2 [id number] Kimber Ferguson DPM Podiatry, [address] [address] 09/05/2020 10:47:47 09/05/2020 11:20:29 Disorder of nervous system due to type 2 diabetes mellitus 993619505 E11.49 Corns and callus 6221032 00 L84 Hypertrophy of nail 3065 4002 L60.2 [id number] Kimber Ferguson DPM Podiatry, [address] [address] 11/07/2020 09:53:47 11/07/2020 10:18:53 Disorder of nervous system due to type 2 diabetes mellitus 036720561 E11.49 Corns and callus 5027320 00 L84 Hypertrophy of nail 3065 4002 L60.2 [id number] Nelly Ramirez, OD [facility], [address] [address] 12/05/2020 09:41:52 12/05/2020 14:10:35 Presbyopia 42301267 H52.4 Glaucoma suspect 7554273 08 H40.011 2' optic nerve appearance . IOP wnl (ranges 16-18), CCT avg OU, VF were unreliable x 2. +Diabetes. saw ophthalmol ogist in the past and recommende d observatio n. unable to obtain clear OCT today, baseline photos. refer back to ophthalmol ogist. Type 2 leticia betes mellitus without complication 346593490 E11.9 No diabetic retinopath y OU. pt ed on importance of good blood sugar control, monitor 1 yr with CEE Dry eyes 131081436 H04.1 29 pt ed. recommend lid scrub qd, Artificial tears 2-4 x per day. [id number] Kimber Ferguson DPM Podiatry, [address] [address] 01/09/2021 09:02:38 01/09/2021 09:38:05 Disorder of nervous system due to type 2 diabetes mellitus 318736326 E11.49 Corns and callus [id number] 00 L84 Hypertrophy of nail 3065 4002 L60.2 [id number] Toan Francois MD Podiatry, [address] [address] 03/20/2021 09:15:35 03/20/2021 09:53:26 Disorder of nervous system due to type 2 diabetes mellitus 402663263 E11.49 Tendinitis of right posterior tibial tendon 1237772339 71737 M76.616 [id number] Christal Henson MD Podiatry, [address] [address] 01/16/2022 10:54:00 01/16/2022 17:22:29 Disorder of nervous system due to type 2 diabetes mellitus 604316248 E11.49 Corns and callus 6148759 00 L84 Hypertrophy of nail 3065 4002 L60.2 [id number] Nelly Ramirez, OD [facility], [address] [address] 2022 15:28:35 04/01/2022 14:47:01 Presbyopia 82609270 H52.4 Glaucoma suspect 8072316 08 H40.011 2' optic nerve appearance . IOP wnl (ranges 16-18), CCT avg OU, VF were unreliable x 2. +Diabetes. saw ophthalmol ogist in the past and recommende d observatio n. unable to obtain OCT today, refer back to ophthalmol ogist. Type 2 leticia betes mellitus without complication 109452551 E11.9 No diabetic retinopath y OU. pt ed on importance of good blood sugar control, monitor 1 yr with CEE Dry eyes 447799188 H04.1 29 pt ed. recommend lid scrub qd, Artificial tears 2-4 x per day. Hypermetropia 91033555 H 52.03 [id number] Christal Henson MD Podiatry, [address] [address] 04/03/2022 11:27:25 04/03/2022 12:09:15 Disorder of nervous system due to type 2 diabetes mellitus 275612184 E11.49 Corns and callus 2469939 00 L84 Hypertrophy of nail 3065 4002 L60.2 [id number] Christal Henson MD Podiatry, [address] [address] 06/18/2022 11:43:50 06/18/2022 12:11:45 Disorder of nervous system due to type 2 diabetes mellitus 506089468 E11.49 Corns and callus 7577568 00 L84 Hypertrophy of nail 3065 4002 L60.2 [id number] Christal Henson MD Podiatry, [address] [address] 08/27/2022 11:44:12 08/27/2022 12:30:53 Disorder of nervous system due to type 2 diabetes mellitus 500567344 E11.49 Corns and callus 9215803 00 L84 Hypertrophy of nail 3065 4002 L60.2 [id number] Christal Henson MD Podiatry, [address] [address] 04/08/2023 11:49:54 04/08/2023 12:11:04 Disorder of nervous system due to type 2 diabetes mellitus 124139728 E11.49 Corns and callus [id number] 00 L84 Hypertrophy of nail 3065 4002 L60.2 [id number] Nelly Ramirez, OD [facility], [address] [address] 06/16/2023 15:46:20 06/18/2023 14:17:09 Presbyopia 71554906 H52.4 Glaucoma suspect 5569013 08 H40.011 2' optic nerve appearance . IOP wnl (ranges 16-18), CCT avg OU, VF were unreliable x 2. +Diabetes. saw ophthalmol ogist in the past and recommende d observatio n. unable to obtain OCT or photo or gonioscopy today, refer back to ophthalmol ogist. Type 2 leticia betes mellitus without complication 843675691 E11.9 No diabetic retinopath y OU to extent seen. pt ed on importance of good blood sugar control, monitor 1 yr with CEE Dry eyes 792945228 H04.1 29 pt ed. recommend lid scrub qd, Artificial tears 2-4 x per day. Hypermetropia 81616539 H 52.03 Narrow angle 903310014 H 40.797 [id number] Christal Henson MD Podiatry, [address] [address] 06/17/2023 11:03:33 06/17/2023 11:55:06 Disorder of nervous system due to type 2 diabetes mellitus 887653059 E11.49 Corns and callus 5506890 00 L84 Hypertrophy of nail 3065 4002 L60.2 [id number] Christal Henson MD Podiatry, [address] [address] 10/22/2023 09:00:41 10/22/2023 10:10:22 Disorder of nervous system due to type 2 diabetes mellitus 162134548 E11.49 Corns and callus 2815833 00 L84 Hypertrophy of nail 3065 4002 L60.2 Health Concerns Section Related Observation LastModified by Organization Detai ls LastModified Time None Recorded Concern Status LastModified by Organization Details LastModified Time None Recorded Advance Directives Directive None Recorded Payers Encounter Date Sequence Insurance Name Policy Number Policy Quiles Covered Member ID Quiles Member ID Guarantor Name 08/27/2022 2 () Zuleyma Gutierrez [id number] Zuleyma Gutierrez 08/27/2022 1 MEDICARE B-[place]: [employer] Zuleyma [place] [id number] Zuleyma [place] 04/08/2023 2 () Zuleyma [place] [id number] Zuleyma [place] 04/08/2023 1 [place]: [employer] Zuleyma [place] [id number] Zuleyma [place] 06/16/2023 2 () Zuleyma [place] [id number] Zuleyma [place] 06/16/2023 1 [place]: [employer] Zuleyma [place] [id number] Zuleyma [place] 06/17/2023 2 () Zuleyma [place] [id number] Zuleyma [place] 06/17/2023 1 [place] [facility] Zuleyma A [place] [id number] 0 Zuleyma [place] 10/22/2023 2 () [place]yma A [place] [id number] Zuleyma [place] 10/22/2023 1 MEDICARE B-[place]: [facility] Zuleyma A [place] [id number] [place] [place] Notes Date Note Type Note Provider Name [...] brock RN on 08/22/22. Kimber Ferguson DPM [address] [place] [address], [phone], [facility] 08/27/2022 12:10:25 04/08/2023 text/html Patient with type 2 diabetes mellitus with peripheral neuropathy returns to the office for evaluation and at risk foot care. Patient complains of thick toenails as well as calluses that she's not able to care for herself. Patient has no complaints of open wound or drainage. Patient seen by Armaan Sharma NP on 03/24/23. Kimber Ferguson DPM [address] [place], [phone], [facility] 04/08/2023 12:10:00 06/16/2023 text/html c/o blurry vision, distance and near, with tearing, no eye pain. has spots in vision. type 2 DM, PCP is Dr. Jacobs in [place], last A1C unknown Nelly Ramirez, OD [address] [place], [phone], [facility] 06/16/2023 16:46:48 06/17/2023 text/html Patient with type 2 diabetes mellitus with peripheral neuropathy returns to the office for evaluation and at risk foot care. Patient complains of thick toenails as well as calluses that she's not able to care for herself. Patient without any complaints of open wound or drainage. Patient seen by Armaan Sharma NP on 03/24/23. Kimber Ferguson DPM [address] [place], [phone], [facility] 06/17/2023 11:49:30 10/22/2023 text/html Patient with type 2 diabetes mellitus with peripheral neuropathy returns to the office for evaluation and at risk foot care. Patient complains of thick toenails as well as calluses that she's not able to care for herself. Patient without any complaints of open wound or drainage. Patient seen by Pablo Denny MD on 08/02/23. Kimber Ferguson DPM [address] [place], [phone], [facility] 10/22/2023 09:45:07 OBGyn Episode No OBEpisode recorded.
== END 2024-10-05 12:06 | disposition home or self-care (01) ==
LOC: HO.HMCH 10:57
PROVIDERS: PCP Internal Medicine
DX: I50.30 Unspecified diastolic (congestive) heart failure (principal); E11.65 Type 2 diabetes mellitus with hyperglycemia; K21.9 Gastro-esophageal reflux disease without esophagitis; I10 Essential (primary) hypertension; E78.5 Hyperlipidemia, unspecified; R15.9 Full incontinence of feces; K59.00 Constipation, unspecified; R19.7 Diarrhea, unspecified

== ENCOUNTER → 2024-10-05 10:57 | Outpatient (BNVA) | payer MEDICARE, OTHER, SELFPAY | PROVIDERS: PCP Internal Medicine | DX: I11.0 Hypertensive heart disease with heart failure (principal); I50.30 Unspecified diastolic (congestive) heart failure; E11.65 Type 2 diabetes mellitus with hyperglycemia; K21.9 Gastro-esophageal reflux disease without esophagitis; E78.5 Hyperlipidemia, unspecified; R15.9 Full incontinence of feces; K59.00 Constipation, unspecified; R19.7 Diarrhea, unspecified | CPT/HCPCS: 83036; 99212 ==

== ENCOUNTER 2024-12-01 10:57 | Outpatient (AMB) | payer MEDICARE, OTHER, SELFPAY ==
--- OUTSIDE RECORDS SUMMARY | 2019-07-01 11:53 | XMS_ITS | Continuity of Care Document ---
Author Organization [facility] Address [address] [place] [address] [address] Phone Care Team Providers Care Automobile Drivers Name Role Phone Anton Jean Baptiste DO Unavailable Unavailable Advance Directives Directive Yes / No Effective Date File Name No Information Encounters Encounter Description Practice Location Reason(s) For Visit Diagnoses Date Provider [facility], [address], [id number], [place] tel:[phone] [address] [place] [address] No Information 2019 Markel Walton. [address] [place] [address], [id number], [place]. tel:[phone] Family History Family Member Type Diagnosis Age At Onset No Information Payers Payer name Insurance type Covered republican ID Authoriza tion(s) No Information Social History Type Description Quantity Date Captured Comments Sex Female Smoking Status No Information Chief Complaint And Reason For Visit No Information History Of Present Illness Encounter Date Complaint History Of Prese nt Illness No Information Instructions Date Instruction Additional Infor mation No Information Assessments Type Assessment Date No Information
[2024-12-01 11:01] VITALS: BP 157/71; PULSE 91; BMI 27.2
--- NOTE | 2024-12-01 11:01 | MHC.OFFVIS ---
Vital Signs 12/01/24 11:01 Height 4 ft 10 in Weight 130 lb 1.164 oz BMI 27.2 BP 157/71 H Blood Pressure Location Lt brachial Position Sitting Pulse 91 Intake Visit Reasons: full incontinence of feces Intake Note: Zuleyma presents in the office as a follow up. CC: Stomach pains, incontinence with her bowels. She states that she has accidents. She states she had an itch in her front area that seems to be her vagina. She states that she has leaks that she feels it goes into her vagina and causes her to have an infection. [place] Required: No Allergies ciprofloxacin Allergy (Severe, Verified 12/01/24 11:02) unknown aspirin (Aspirin) Allergy (Unknown, Verified 12/01/24 11:02) UNKNOWN cefuroxime Allergy (Unknown, Verified 12/01/24 11:02) Unknown celecoxib (From Celebrex) Allergy (Unknown, Verified 12/01/24 11:02) UNKNOWN metformin Allergy (Unknown, Verified 12/01/24 11:02) diarrhea risedronate sodium (From Actonel) Allergy (Unknown, Verified 12/01/24 11:02) UNKNOWN Sulfa (Sulfonamide Antibiotics) Allergy (Unknown, Verified 12/01/24 11:02) unknown bupropion Adverse Reaction (Intermediate, Verified 12/01/24 11:02) tremor ferrous sulfate Adverse Reaction (Intermediate, Verified 12/01/24 11:02) tremors sertraline Adverse Reaction (Intermediate, Verified 12/01/24 11:02) tremors HPI Comments Details: This is an 89-year-old female with past medical history of obesity, GERD, type 2 diabetes, hyperlipidemia, hypertension, carotid artery disease, she TIA, diverticulosis, who presents for follow up Patient is accompanied by her to-be daughter in law. Initial visit 05/10/22: She tells me that she has had multiple episodes of lower GI bleeding, in each time the been attributed to diverticular bleeding. Previously has been seen by Dr. Mills as well. She most recently, she was admitted to [facility] in March once again with lower GI bleeding. Underwent an EGD/colonoscopy during that admission (Dr. Richter) which was reportedly normal except diverticulosis. This is as per the discharge summary, detailed procedure note is not available. Of note, patient had a recent TIA, and is on Plavix, which she has continued as per her neurologist advice. Outside of this, patient also reports intermittent episodes of fecal incontinence. She does not report any diarrhea or constipation with this. Stool consistency otherwise is formed, and regular. Does not have to strain. When she does have an episode of fecal incontinence, the stool that leaks is soft or even formed. Obstetric history includes vaginal deliver of 6 out of 7 kids including history of instrument assisted . Babies weight ranged from 8-10 lbs. 08/26/22: Report improvement in abd cramping and diarrhea. Reports persistent lower back spasms. Today main CC is difficulty swallowing certain textures such as steak, turkey. Intermittent. Sometimes has to throw this up to feel better. As above most recent EGD was in Mar 2022 and reportedly normal. Barium swallow 11/2021 without any strictures or webs noted. Was recently hospitalised at [facility] again last month for COPD exacerbation. Reports scant rectal bleeding on wiping during those days which resolved a few days after discharge. BP noted to be on softer side today however pt does not report any lightheadedness or dizziness. Able to get up without any difficulty and use her walker. 03/03/23: Here with her sister. Reports hospitalisation to [facility] x 2 since she was last seen. From documentation appears to have been for CHF, but she mentions rectal bleeding as well for which she underwent sigmoidoscopy based on her description. Was told possibly diverticular bleeding. She is due to meet her Investment Specialist later this month for discussion of ongoing use of blood thinner. Otherwise, main complaint remains frequent loose stools. Was switched from loperamide to cholestyramine by her PCP. Olmesartan has also been discontinued. 12/01/24: Pt here to follow up. Was seen in hospital for pancreatic cyst. Now coming in for persistent fecal incontinence. Reports some soiling of her underwear every day. Is constipated at baseline, takes miralax daily to have a BM every day. Most of the visit was spent her describing URINARY incontinence - she was quite frustrated that she frequently soils her pants from urinary incontinence and can barely get out of the house without worrying about it. Frequent urination also makes her hesitant to take full diuretic dose. She was redirected a few times to discuss F.I issues. Reports notices it more when she has fecal impaction. Digitalizes to help disimpact. She notices scant stool on her pad those times. She did not recall our previous discussion re timed rectal evacuation and fiber use to help bulk up the stool. [facility] Medical History (Updated 10/05/24 @ 11:44 by Soledad Agudelo PA-C) Diarrhea Constipation Weakness Dizziness and giddiness Weakness Yeast infection of the skin Exercise hypoxemia Acute respiratory failure with hypoxia Lipoma of lower back Urinary incontinence Cystitis Acute urinary retention Acute diverticulitis of intestine Generalized abdominal pain Diverticular disease Nausea & vomiting Failure to thrive in adult TSH elevation CHF (congestive heart failure) Atrial fibrillation with RVR Atrial fibrillation with RVR Type 2 diabetes mellitus with hyperglycemia Diabetes mellitus Asthma Hypokalemia Hypomagnesemia Hearing difficulty Dyspnea on exertion History of gastrointestinal diverticular hemorrhage COVID-19 virus infection Rectal bleeding Medicare annual wellness visit, initial Hip pain, left Patellar sleeve fracture of right knee Knee pain, right Nausea and vomiting Coarse tremors Shoulder pain, right Hospital discharge follow-up Mass on back Tinea corporis Nausea Right wrist pain Left knee pain Left hip pain Toe pain, left Breast cancer screening by mammogram UTI (urinary tract infection) Obesity (BMI 30-39.9) Urinary frequency Toe fracture, left Pancreatic cyst Osteoporosis Peptic ulcer disease Urinary incontinence Rectal incontinence GERD (gastroesophageal reflux disease) Bile salt-induced diarrhea Vaginal prolapse Renal artery stenosis Asthma Lumbar degenerative disc disease Insomnia TIA (transient ischemic attack) Hyperlipidemia, unspecified Essential hypertension Surgical History Hx of colonoscopy History of esophagogastroduodenoscopy (EGD) History of removal of cyst (~10/17/21) History of hemorrhoidectomy History of colectomy History of section History of hysterectomy History of appendectomy History of cholecystectomy Family History Father Cancer Arterial thrombosis Mother Multiple sclerosis Muscular dystrophy Hypertension Depression Chronic mental illness Mental health disorder Brother No problems noted. Brother Gangrene Sister No problems noted. Son No problems noted. Son No problems noted. Son No problems noted. Son No problems noted. Daughter No problems noted. Daughter No problems noted. Daughter No problems noted. Social History Household Members: None Housing: Apartment Do you presently have visiting nurse or other home services: Yes Alcohol intake: former Comment: 1:1 sitter Patient Tobacco Use Status: Former Tobacco user Tobacco use type: Cigarette Years Smoked: 22 e-Cigarette/Vaping Use: Former Use Second Hand Smoke Exposure: Yes Advance Directives Date on File: 08/06/23 service: No Current occupational status: disabled Current occupational exposures/hazards: No Cognitive needs: Yes (walker) Hearing needs: Yes Vision needs: Yes (Glasses) Review of Systems Const All systems reviewed & are unremarkable except as noted in HPI and below Physical Exam Vital Signs: Last Vital Signs Pulse 91 12/01/24 11:01 BP 157/71 H 12/01/24 11:01 BMI result Body Mass Index 27.2 elderly female nonicteric abd soft, mildly distended, suprapubic fullness likely from urinary bladder no DAVION Results Reviewed Results Reviewed: CT from july reviewed. Panc cyst noted. Fecal loading noted. Assessment & Plan Assessment & Plan (1) Rectal incontinence: Code(s): R15.9 - Full incontinence of feces Category: Medical (2) Diarrhea: Code(s): R19.7 - Diarrhea, unspecified Category: Medical Plan 1. Abd cramping with fecal incontinence: Also has urinary incontinence. Reviewed witht he pt that based on her desceription and timing of F.I, likely has overflow diarrhea and incontinence. Fecal loading noted on most recent CT as well. Discussed that best management will be to avoid constipation and to compeltely empty out the rectum to avoid soiling her underwear with seepage. Plan: Add fiber supplementation as bulking agent. Take miralax every day or every other day Timed rectal evacuation with glycerin suppositories to avoid fecal seepage/incontinence. (pt unable to self administer enemas) To note - pt mentioned difficulty managing urinary incontinence, and getting to appts. Msg sent to PCP for further assistance with relevant DMEs and PT-1. Follow up 4 months. Medications: New psyllium husk (Daily Fiber) 0.8 grams (2 x 0.4 gram) PO BEDTIME 60 caps 1RF 30 days glycerin (child) 2 supp IL DAILY 60 ea 1RF 30 days Patient Instructions: - Take miralax every other day. HOLD if you develop more than 2 loose watery stools per day - Take fiber capsules daily - Use glycerin suppositories every day in the morning to empty out the rectum to prevent seepage of stool Coding Level of Care Code Est Pt Level 4 (19315) Diagnoses Rectal incontinence R15.9 Diarrhea R19.7
--- OUTSIDE RECORDS SUMMARY | 2024-12-01 11:41 | XMS_ITS | Data Portability ---
Author Organization [facility], [facility] Address [address] [place] [address] Care Team Providers Care Sales Planning Coordinator Name Role Phone BETY SUNDEEPREEMA Primary Care Provider [phone] KIMBER FERGUSON Bellperson JEISON RAMIERZ Gasoline Tester Assessment Encounter Date Assessment Date Assessment LastModified by Organization Details LastModified Time 04/08/2023 04/08/2023 Type 2 diabetes mellitus with peripheral neuropathy, dystrophic toenails, hyperkeratotic lesions jerskine Not available 04/08/2023 12:08:15 06/16/2023 06/16/2023 RTC per catalogue and special products manager jmandile Not available 06/16/2023 16:30:13 06/17/2023 06/17/2023 Type 2 diabetes mellitus with peripheral neuropathy, dystrophic toenails, hyperkeratotic lesions jerskine Not available 06/17/2023 11:48:06 10/22/2023 10/22/2023 Type 2 diabetes mellitus with peripheral neuropathy, dystrophic toenails, hyperkeratotic lesions jerskine Not available 10/22/2023 09:43:46 10/27/2024 10/27/2024 Type 2 diabetes mellitus with peripheral neuropathy, dystrophic toenails, hyperkeratotic lesions jerskine Not available 10/27/2024 14:13:08 Plan of Treatment Reminders Order Date Submit Date Provider Last Modified By Organization Details Last Modified Time Details Appointments Routine Foot Care 15 2024 09:00A Nette Ferguson DPM Not available Not available Not available Lab None recorded. Referral ophthalmo logist referral - narrow angle, blurry vision, cataracts , glaucoma suspect. 2023 024 [email or web address] [facility], [address] [place] [address], [id number], 06/23/2023 14:46:35 Procedures None recorded. Surgeries None recorded. Imaging None recorded. Medication Orders None recorded. Patient TargetsNo targets recorded. Patient Instructions Encounter Date Encounter Id Patient Instructions Last Modified By Organization Details Last Modified Time 04/08/2023 [id number] Patient to retur n in 9 weeks for foot care to reduce risk of complications associated with type 2 diabetes mellitus with peripheral neuropathy. jerskine Not available 04/08/2023 12:08:15 06/16/2023 [id number] attempted gonioscopy today, patient unable to keep eyes open. will refer back to Dr. ingram. jmandile Not available 06/16/2023 16:45:37 06/17/2023 [id number] Patient to retur n in 9 weeks for foot care to reduce risk of complications associated with type 2 diabetes mellitus with peripheral neuropathy. jerskine Not available 06/17/2023 11:48:06 10/22/2023 [id number] Patient to retur n in 9 weeks for foot care to reduce risk of complications associated with type 2 diabetes mellitus with peripheral neuropathy. jerskine Not available 10/22/2023 09:43:46 10/27/2024 [id number] Patient to retur n in 9 weeks for foot care to reduce risk of complications associated with type 2 diabetes mellitus with peripheral neuropathy. jerskine Not available 10/27/2024 14:13:08 Reason for Referral Edge Burnisher Uppers Referral for Narrow angle narrow angle, blurry vision, cataracts, glaucoma suspect. Referring Physician: Nelly Ramirez, Optometry, Encounter Date: 06/16/2023 Problems Name Problem SNOMED Code Status Onset Date Resolution Date Notes Provider Name and Address Organization Details Recorded Time Diabetes mellitus 01221629 Active 2016 VICKI Campbell [facility] 7 15:01:40 Hypertens hernán disorder 33426802 Active 2016 VICKI Campbell, [facility] 7 15:02:05 Hyperchol esterolem ia 61861894 Active 2016 VICKI Campbell [facility] 15:02:42 Vitamin B12 level below reference range 044409904 [facility]24 History of transient ischemic attack 105261779 [facility] 15:19:34 Insomnia 737407646 Active 2016 [facility] 15:19:49 Anxiety 14627963 Active 2016 [facility] 16:11:46 Mass of pancreas 201450123 Active 2016 [facility] 16:12:12 Degenerat ion of intervert ebral disc 24727206 Active 2016 [facility] 16:13:58 Asthma 413072672 Active 2016 [facility] 16:14:15 Renal artery stenosis 605497290 Active 2016 [facility] 16:14:41 Diarrheal disorder 823188396 Active 2016 [facility] 16:16:15 Obesity 101055456 Completed 201611/02/2020 Removal Reason: BMI > or = 35 plus other comorbid ities. MIKE Montalvo [facility] 1 06:00:34 Morbid obesity 760068583 Active 2020 BMI > or = 35 plus other comorbid ities. MIKE Montalvo [facility] 1 06:00:43 Disorder of nervous system due to type 2 diabetes mellitus 764283670 Active 2020 coded 09/05/20 Podiatry . MIKE Montalvo [facility] 06:02:58 Problem Notes None recorded. Procedures Surgical History Date Name Laterality Status Provider Name and Address Organization Details Recorded Time 06/16/19 24 Refraction completed Nelly Ramirez, OD [address] [place], [address], [facility] 06/16/2023 16:41:05 03/29/20 22 Refraction completed Nelly Bustosile, OD [address] [place], [address], [facility] 2022 17:28:54 12/06/19 21 Fundus Photography completed Nelly Ramirez, OD [address] [place], [address], [facility] 12/05/2020 13:46:33 12/06/19 21 Refraction completed Wanda Darnell [facility] 12/05/2020 10:52:45 03/09/20 18 [facility]2018 10:41:18 08/06/19 18 Visual field comprehensive completed Nelly Ramirez, OD [address] [place] [address], [address], [facility] 08/07/2017 10:31:26 05/06/20 17 Pachymetry completed [facility] 05/06/2017 11:53:13 05/06/20 17 Visual field comprehensive completed [facility] 05/06/2017 11:52:41 05/06/20 17 Optical Coherence Tomography (Optic Nerve) completed [facility] 05/06/2017 11:52:37 03/04/20 17 Refraction completed [facility] 03/04/2017 13:39:17 Imaging Results None recorded. Procedure Notes None recorded. Medical Equipment None Reported. Allergies Allergen ID Allergen Name Allergen Category Reaction Reaction Severity Criticality Documentation Date Start Date Code Code System Note Provider Name and Address Organization Details Recorded Time 110665 salicylic acid medicatio n Not available Not available Not available 03/09/2013 9525 RxNorm Bleed ing Wanda Rea CMA null, [facility] 3 10:05:07 815554 Celebrex medicatio n Not available Not available Not available 03/09/2013 22588 7 RxNorm Bleed donna Rea CMA null, [facility] 3 10:05:07 018144 Actonel medicatio n Not available Not available Not available 03/09/2013 95304 3 RxNorm Bleed EDEN Benito, [facility] 3 10:05:07 885258 Substance with sulfonami de structure and antibacte rial mechanism of action (substanc e) medicatio n other Not available Not available 06/07/2020 25363 8003 SNOMED lose s mind Qian Morton [facility], [facility] 1 10:53:29 205556 aspirin medicatio n Not available Not available Not available 12/05/2020 1191 RxNorm Wanda Dildine [facility], [facility] 1 10:31:13 Medications Name Sig Start [...] 1 TAB X 2 DAYS BY MOUTH 10/27 completed Not Available Not Available Not Available Vitamin B-12 1,000 mcg/mL injection solution [...] Not Available No t Available famotidin e 40 mg tablet TAKE 1 TABLET BY MOUTH AT BEDTIME active Not Available [...] m 0.25 mg tablet TAKE 1 TABLET BY MOUTH EVERY DAY NEEDED FOR ANXIETY active Not Available Not Available No t Available famotidin e 20 mg tablet TAKE 1 TAB ORALLY DAILY 10/27 completed Not Available Not Available Not Available magnesium oxide 400 mg (241.3 mg [...] Not Available Not Available No t Available nystatin 100,000 unit/gram topical cream 1 APPL TOPICALL Y DAILY active Not Available Not Available No [...] 5 % topical patch APPLY 1 PATCH TOPICALL Y DAILY, LEAVE ON MOST PAINFUL AREA FOR UP TO 12 HRS active Not Available Not Available No t Available docusate sodium 100 mg capsule TAKE [...] completed Not Available Not Available Not Available hydroxyzi ne HCl 25 mg tablet TAKE 25 MG ORALLY EVERY 8 HOURS NEEDED FOR ITCHING active Not Available Not Available No t Available lisinopri l 5 mg tablet TAKE [...] Not Available nystatin 100,000 unit/gram topical powder 1 APPL TO AFFECTED AREAS TOPICALL Y DAILY active Not Available Not Available No [...] 1 TABLET BY MOUTH TWICE A DAY 10/27 completed Not Available Not Available Not Available amoxicill [...] MUST ADMINIST ER WITH A MEAL/KENNETH D 10/27 completed Not Available Not Available Not Available [...] Not Available Not Available FreeStyle Lite Strips DIRECTED CHECK THE BLOOD SUGAR ONCE DAILY active Not Available Not Available No [...] Not Available Vitals Date Recorded Body height Provider Name an d Address Organization Details Last Updated DateTime 06/17/2023 147.32 cm Qian Morton [facility] 06/17/2023 11:14:13 Date Recorded Body height Provider Name an d Address Organization Details Last Updated DateTime 10/22/2023 147.32 cm Qian Morton [facility] 10/22/2023 09:20:46 Date Recorded Heart rate Systolic blood pressure Diastolic blood pressure Provider Name and Address Organization Details Last Updated DateTime 10/27/2024 92 /min 116 mm[Hg] 64 mm[Hg] Qian Morton [facility] 10/27/2024 14:03:34 Social History Question Answer Notes LastModified by Organizat ion Details LastModified Time Tobacco Smoking Status Former Smoker quit 15 years ago 03/08/13-EDEN Macario, [facility] 03/09/2013 10:03:25 When Did You Quit Smoking? 18+yearssin danica [email or web address] [email or web address] Information not available 03/20/2021 What Was The Date Of Your Most Recent Tobacco Screening? 03/20/2021 Information not available 03/20/2021 Sex: Unknown Functional Status Question Answer Note LastModified by Organization D etails LastModified Time Do you or have you ever used any other forms of tobacco or nicotine? No [email or web address] Information not available 01/09/2021 Mental Status None recorded. Family History Nothing Reported. Medical History No medical history recorded. Gynecological HistoryNo gynecological history recorded. Obstetrics History GPAL:G 0 P 0 0 0 0 Past Encounters Encounter ID Performer Location Encounter Start Date Encounter Closed Date Diagnosis/Indication Diagnosis SNOMED-CT Code Diagnosis ICD10 Code Diagnosis Note [id number] Kimber Ferguson DPM Podiatr, [address] [address] 03/09/2013 09:22:50 03/09/2013 10:30:31 Disorder of nervous system due to type 2 diabetes mellitus 064955262 Corns and callus 364448949 Disorder of nail 32032479 [id number] Kimber Ferguson DPM Podiatr, [address] [address] 04/27/2013 10:25:59 04/27/2013 10:48:29 Disorder of nervous system due to type 2 diabetes mellitus 223787738 [place]s [place] callus 231883481 Disorder of nail 16300393 [id number] Kimber Ferguson DPM Podiatry, [address] [place] [address] 06/29/2013 10:07:01 06/29/2013 10:32:54 Disorder of nervous system due to type 2 diabetes mellitus 557837602 [place] call[place] 868022311 Disorder of nail 82478458 [id number] Kimber Ferguson DPM Podiatry, [address] [address] 08/31/2013 09:24:47 08/31/2013 10:06:39 Disorder of nervous system due to type 2 diabetes mellitus 461232299 [place] call[place] 886976936 Disorder of nail 27077579 [id number] Kimber Ferguson DPM Podiatry, [address] [address] 11/09/2013 08:16:40 11/09/2013 11:01:36 Disorder of nervous system due to type 2 diabetes mellitus 739969567 Corns and callus 306005692 Disorder of nail 38180906 [id number] Kimber Ferguson DPM Podiatry, [address] [address] 01/18/2014 08:30:34 01/18/2014 09:14:28 Disorder of nervous system due to type 2 diabetes mellitus 113432730 Corns and callus 856554599 Disorder of nail 71287626 [id number] Kimber Ferguson DPM Podiatry, [address] [address] 03/22/2014 09:19:47 03/22/2014 10:18:39 Disorder of nervous system due to type 2 diabetes mellitus 720972115 Corns and callus 863287799 Disorder of nail 30864677 [id number] Kimber Ferguson DPM Podiatr, [address] [address] 05/31/2014 08:48:25 05/31/2014 09:28:42 Disorder of nervous system due to type 2 diabetes mellitus 599109941 Disorder of nail 28950377 [id number] Kimber Ferguson DPM Podiatry, [address] [address] 08/02/2014 09:17:07 08/02/2014 09:59:15 Disorder of nervous system due to type 2 diabetes mellitus 305000785 Disorder of nail 08263585 [id number] Kimber Ferguson DPM Podiatry, [place] [address] 10/04/2014 10:10:29 11/08/2014 14:34:50 Disorder of nervous system due to type 2 diabetes mellitus 840708304 Disorder of nail 67282084 [id number] Kimber Ferguson DPM Podiatry, [place] [address] 12/08/2014 13:41:30 12/08/2014 14:06:58 Disorder of nervous system due to type 2 diabetes mellitus 207188102 Disorder of nail 15399975 [id number] [place] [address] 02/09/2015 11:17:13 02/09/2015 11:50:58 Disorder of nervous system due to type 2 diabetes mellitus 323663313 Disorder of nail 65145361 [id number] [place] [address] 04/13/2015 11:33:27 04/13/2015 14:25:00 Disorder of nervous system due to type 2 diabetes mellitus 304382724 E11.49 Hypertrophy of nail 3065 4002 L60.2 Corns and callus L84 [id number] [place] [address] 06/15/2015 11:26:17 06/15/2015 11:52:44 Disorder of nervous system due to type 2 diabetes mellitus 115998909 E11.49 Hypertrophy of nail 3065 4002 L60.2 Corns and callus 5819677 L84 [id number] [place] [address] 08/24/2015 11:24:07 08/24/2015 12:03:54 Disorder of nervous system due to type 2 diabetes mellitus 083129581 E11.49 Hypertrophy of nail 3065 4002 L60.2 Corns and callus 1640107 00 L84 [id number] Kimber Ferguson DPM Podiatry, [address] [address] 11/02/2015 11:21:07 11/02/2015 11:52:06 Disorder of nervous system due to type 2 diabetes mellitus 518614091 E11.49 Disorder of nail 1088906 8 L60.9 Corns and callus 4484111 00 L84 [id number] Kimber Ferguson DPM Podiatry, [address] [address] 01/04/2016 11:38:07 01/04/2016 12:34:53 Disorder of nervous system due to type 2 diabetes mellitus 044202972 E11.49 Disorder of nail 8854391 8 L60.9 Corns and callus 4890128 00 L84 [id number] Kimber Ferguson DPM Podiatry, [address] [address] 03/05/2016 09:49:57 03/05/2016 10:12:20 Disorder of nervous system due to type 2 diabetes mellitus 844031819 E11.49 Corns and callus 9899441 00 L84 Hypertrophy of nail 3065 4002 L60.2 [id number] Kimber Ferguson DPM Podiatry, [address] [address] 05/07/2016 09:53:16 05/07/2016 10:54:12 Hypertrophy of nail 40348268 L60.2 Disorder o f nervous system due to type 2 diabetes mellitus 112391163 E11.49 Corns and callus 4338836 00 L84 [id number] Kimber Ferguson DPM Podiatry, [address] [address] 07/16/2016 12:23:39 07/16/2016 13:53:52 Disorder of nervous system due to type 2 diabetes mellitus 544990804 E11.49 Corns and callus 0481006 00 L84 Hypertrophy of nail 3065 4002 L60.2 [id number] Kimber Ferguson DPM Podiatry, [address] [address] 09/10/2016 10:23:26 09/10/2016 10:56:43 Disorder of nervous system due to type 2 diabetes mellitus 349493103 E11.49 Corns and callus 7281539 00 L84 Hypertrophy of nail 3065 4002 L60.2 [id number] Kimber Ferguson DPM Podiatry, [address] [address] 11/12/2016 10:46:15 11/12/2016 11:19:30 Disorder of nervous system due to type 2 diabetes mellitus 928955935 E11.49 Corns and callus 6066262 00 L84 Hypertrophy of nail 3065 4002 L60.2 [id number] Kimber Ferguson DPM Podiatry, [address] [address] 01/21/2017 10:43:51 01/21/2017 11:09:42 Disorder of nervous system due to type 2 diabetes mellitus 487553318 E11.49 Corns and callus 1423593 L84 Hypertrophy of nail 3065 4002 L60.2 [id number] Nelly Ramirez, OD [facility], [address] [address] 03/04/2017 13:10:52 03/04/2017 14:34:10 Presbyopia 24515873 H52.4 Glaucoma suspect 7092790 08 H40.011 2' optic nerve appearance . IOP wnl, RTC for further testing. Type 2 leticia betes mellitus without complication 022889839 E11.9 No diabetic retinopath y OU. pt ed on importance of good blood sugar control, monitor 1 yr with CEE [id number] Kimber Ferguson DPM Podiatry, [address] [address] 03/25/2017 10:30:12 03/25/2017 11:29:16 Disorder of nervous system due to type 2 diabetes mellitus 959996694 E11.49 Corns and callus 6148612 00 L84 Hypertrophy of nail 3065 4002 L60.2 [id number] Nelly Ramirez, OD [facility], [address] [address] 05/06/2017 10:25:50 05/06/2017 12:35:42 Glaucoma suspect 538978877 H40.011 2' optic nerve appearance . OCT revealed OD: wnl, OS: borderline segment I/T. IOP wnl (ranges 16-17), CCT avg OU, VF were unreliable and need to be repeated. pt ed on findings and glaucoma. continue to observe for now. RTC 3 months for HVF 24-2ss, IOP check, OCT. [id number] Kimber Ferguson DPM Podiatry, [address] [address] 06/03/2017 11:03:35 06/03/2017 11:54:17 Disorder of nervous system due to type 2 diabetes mellitus 719306239 E11.49 Corns and callus 7686312 L84 Hypertrophy of nail 3065 4002 L60.2 [id number] Nelly Ramirez, OD [facility], [address] [address] 08/05/2017 13:00:01 08/05/2017 14:29:13 Glaucoma suspect 157814930 H40.011 2' optic nerve appearance . Baseline OCT on 05/06/17 revealed OD: wnl, OS: borderline segment I/T. IOP wnl (ranges 16-18), CCT avg OU, VF were unreliable x 2. +Diabetes. pt ed on findings and glaucoma. Refer to ophthalmol ogy for eval. [id number] Kimber Ferguson DPM Podiatry, [address] [address] 08/26/2017 14:43:08 08/26/2017 15:31:16 Disorder of nervous system due to type 2 diabetes mellitus 230510594 E11.49 Corns and callus 8751576 L84 Hypertrophy of nail 3065 4002 L60.2 [id number] Kimber Ferguson DPM Podiatry, [address] [address] 11/19/2017 14:10:42 11/19/2017 14:42:40 Disorder of nervous system due to type 2 diabetes mellitus 646841271 E11.49 Corns and callus [id number] 00 L84 Hypertrophy of nail 3065 4002 L60.2 [id number] Nelly Ramirez, OD [facility], [address] [place] [address] 03/09/2018 10:17:41 03/09/2018 11:14:52 Presbyopia 56479814 H52.4 Glaucoma suspect 0184120 08 H40.011 2' optic nerve appearance . Baseline OCT on 05/06/17 revealed OD: wnl, OS: borderline segment I/T. IOP wnl (ranges 16-18), CCT avg OU, VF were unreliable x 2. +Diabetes. saw ophthalmol ogist and recommende d observatio n. f/u 1 yr with CEE and OCT. Type 2 leticia betes mellitus without complication 933314953 E11.9 No diabetic retinopath y OU. pt ed on importance of good blood sugar control, monitor 1 yr with CEE Dry eyes 934982949 H04.1 29 pt ed. recommend hot compresses with lid massage 1-2 x per day and Artificial tears 2-4 x per day. [id number] Kimber Ferguson DPM Podiatry, [address] [address] 06/30/2018 10:07:36 06/30/2018 13:18:22 Disorder of nervous system due to type 2 diabetes mellitus 430179975 E11.49 Corns and callus 3361055 00 L84 Hypertrophy of nail 3065 4002 L60.2 [id number] Kimber Ferguson DPM Podiatr, [address] [address] 09/01/2018 10:30:01 09/01/2018 11:23:42 Disorder of nervous system due to type 2 diabetes mellitus 384125462 E11.49 Corns and callus 7063590 00 L84 Hypertrophy of nail 3065 4002 L60.2 [id number] Kimber Ferguson DPM Podiatry, [address] [address] 11/03/2018 10:42:18 11/03/2018 11:55:21 Disorder of nervous system due to type 2 diabetes mellitus 738778738 E11.49 Corns and callus 4953590 00 L84 Hypertrophy of nail 3065 4002 L60.2 [id number] Kimber Ferguson DPM Podiatry, [address] [address] 01/19/2019 10:50:16 01/19/2019 11:35:02 Disorder of nervous system due to type 2 diabetes mellitus 645692322 E11.49 Corns and callus 6288777 00 L84 Hypertrophy of nail 3065 4002 L60.2 [id number] Kimber Ferguson DPM Podiatry, [address] [address] 03/23/2019 10:46:15 03/23/2019 11:58:20 Disorder of nervous system due to type 2 diabetes mellitus 179790250 E11.49 Corns and callus 1650312 00 L84 Hypertrophy of nail 3065 4002 L60.2 [id number] Kimber Ferguson DPM Podiatry, [address] [address] 06/15/2019 10:42:18 06/15/2019 11:36:52 Disorder of nervous system due to type 2 diabetes mellitus 912760794 E11.49 Corns and callus 0499349 00 L84 Hypertrophy of nail 3065 4002 L60.2 [id number] Kimber Ferguson DPM Podiatry, [address] [address] 06/07/2020 10:45:17 06/07/2020 11:22:58 Disorder of nervous system due to type 2 diabetes mellitus 967272662 E11.49 Corns and callus 5627935 00 L84 Hypertrophy of nail 3065 4002 L60.2 [id number] Kimber Ferguson DPM Podiatry, [address] [address] 09/05/2020 10:47:47 09/05/2020 11:20:29 Disorder of nervous system due to type 2 diabetes mellitus 852915460 E11.49 Corns and callus 2515207 00 L84 Hypertrophy of nail 3065 4002 L60.2 [id number] Kimber Ferguson DPM Podiatry, [address] [address] 11/07/2020 09:53:47 11/07/2020 10:18:53 Disorder of nervous system due to type 2 diabetes mellitus 646357249 E11.49 Corns and callus 4471212 00 L84 Hypertrophy of nail 3065 4002 L60.2 [id number] Nelly Ramirez, OD [facility], [address] [address] 12/05/2020 09:41:52 12/05/2020 14:10:35 Presbyopia 96439231 H52.4 Glaucoma suspect 1051654 08 H40.011 2' optic nerve appearance . IOP wnl (ranges 16-18), CCT avg OU, VF were unreliable x 2. +Diabetes. saw ophthalmol ogist in the past and recommende d observatio n. unable to obtain clear OCT today, baseline photos. refer back to ophthalmol ogist. Type 2 leticia betes mellitus without complication 214638095 E11.9 No diabetic retinopath y OU. pt ed on importance of good blood sugar control, monitor 1 yr with CEE Dry eyes 635475848 H04.1 29 pt ed. recommend lid scrub qd, Artificial tears 2-4 x per day. [id number] Kimber Ferguson DPM Podiatry, [address] [address] 01/09/2021 09:02:38 01/09/2021 09:38:05 Disorder of nervous system due to type 2 diabetes mellitus 841725785 E11.49 Corns and callus 7202816 00 L84 Hypertrophy of nail 3065 4002 L60.2 [id number] Toan Francois MD Podiatry, [address] [address] 03/20/2021 09:15:35 03/20/2021 09:53:26 Disorder of nervous system due to type 2 diabetes mellitus 260414735 E11.49 Tendinitis of right posterior tibial tendon 0659975883 06870 M76.892 [id number] Christal Henson MD Podiatry, [address] [address] 01/16/2022 10:54:00 01/16/2022 17:22:29 Disorder of nervous system due to type 2 diabetes mellitus 448441696 E11.49 Corns and callus [id number] 00 L84 Hypertrophy of nail 3065 4002 L60.2 [id number] Nelly Ramirez, OD [facility], [address] [address] 2022 15:28:35 04/01/2022 14:47:01 Presbyopia 04967343 H52.4 Glaucoma suspect 1179245 08 H40.011 2' optic nerve appearance . IOP wnl (ranges 16-18), CCT avg OU, VF were unreliable x 2. +Diabetes. saw ophthalmol ogist in the past and recommende d observatio n. unable to obtain OCT today, refer back to ophthalmol ogist. Type 2 leticia betes mellitus without complication 745484579 E11.9 No diabetic retinopath y OU. pt ed on importance of good blood sugar control, monitor 1 yr with CEE Dry eyes 062739150 H04.1 29 pt ed. recommend lid scrub qd, Artificial tears 2-4 x per day. Hypermetropia 68137435 H 52.03 [id number] Christal Henson MD Podiatry, [address] [address] 04/03/2022 11:27:25 04/03/2022 12:09:15 Disorder of nervous system due to type 2 diabetes mellitus 698278552 E11.49 Corns and callus 8261909 00 L84 Hypertrophy of nail 3065 4002 L60.2 [id number] Christal Henson MD Podiatry, [address] [address] 06/18/2022 11:43:50 06/18/2022 12:11:45 Disorder of nervous system due to type 2 diabetes mellitus 337194558 E11.49 Corns and callus 6967128 00 L84 Hypertrophy of nail 3065 4002 L60.2 [id number] Christal Henson MD Podiatry, [address] [address] 08/27/2022 11:44:12 08/27/2022 12:30:53 Disorder of nervous system due to type 2 diabetes mellitus [id number] E11.49 Corns and callus [id number] 00 L84 Hypertrophy of nail 3065 4002 L60.2 [id number] Christal Henson MD Podiatry, [address] [address] 04/08/2023 11:49:54 04/08/2023 12:11:04 Disorder of nervous system due to type 2 diabetes mellitus [id number] E11.49 Corns and callus [id number] 00 L84 Hypertrophy of nail 3065 4002 L60.2 [id number] Nelly Ramirez, OD [facility], [address] [address] 06/16/2023 15:46:20 06/18/2023 14:17:09 Presbyopia [id number] H52.4 Glaucoma suspect [id number] H40.011 2' optic nerve appearance . IOP wnl (ranges 16-18), CCT avg OU, VF were unreliable x 2. +Diabetes. saw ophthalmol ogist in the past and recommende d observatio n. unable to obtain OCT or photo or gonioscopy today, refer back to ophthalmol ogist. Type 2 leticia betes mellitus without complication [id number] E11.9 No diabetic retinopath y OU to extent seen. pt ed on importance of good blood sugar control, monitor 1 yr with CEE Dry eyes 696356453 H04.1 29 pt ed. recommend lid scrub qd, Artificial tears 2-4 x per day. Hypermetropia 54562232 H 52.03 Narrow angle 859908798 H 40.844 [id number] Christal Henson MD Podiatry, [address] [address] 06/17/2023 11:03:33 06/17/2023 11:55:06 Disorder of nervous system due to type 2 diabetes mellitus [id number] E11.49 Corns and callus [id number] 00 L84 Hypertrophy of nail 3065 4002 L60.2 [id number] Christal Henson MD Podiatry, [address] [address] 10/22/2023 09:00:41 10/22/2023 10:10:22 Disorder of nervous system due to type 2 diabetes mellitus [id number] E11.49 Corns and callus 00 L84 Hypertrophy of nail 3065 4002 L60.2 [id number] Christal Henson MD Podiatry, [address] [address] 10/27/2024 13:55:34 10/27/2024 14:23:39 Disorder of nervous system due to type 2 diabetes mellitus [id number] E11.49 Corns and callus [id number] 00 L84 Hypertrophy of nail 3065 4002 L60.2 Health Concerns Section Related Observation LastModified by Organization Detai ls LastModified Time None Recorded Concern Status LastModified by Organization Details LastModified Time None Recorded Advance Directives Directive None Recorded Payers Insurance Date Sequence Insurance Name Policy Number Policy Quiles Covered Member ID Quiles Member ID Guarantor Name 10/27/2024 2 () Zuleyma A [place] [id number] [place] 10/27/2024 1 [place] [facility] Zuleyma A [place] [id number] Zuleyma [place] 10/27/2024 1 [place] [facility] Zuleyma A [place] [id number] Zuleyma [place] Notes Date Note Type Note Provider Name and Address Organization Details Recorded Time 04/08/2023 text/html Patient with type 2 diabetes mellitus with peripheral neuropathy returns to the office for evaluation and at risk foot care. Patient complains of thick toenails as well as calluses that she's not able to care for herself. Patient has no complaints of open wound or drainage. Patient seen by Armaan Sharma NP on 03/24/23. Kimber Ferguson, PATRICK [address] [place], [phone], [facility] 04/08/2023 12:10:00 06/16/2023 text/html c/o blurry vision, distance and near, with tearing, no eye pain. has spots in vision. type 2 DM, PCP is Dr. Jacobs in [place], last A1C unknown Nelly Ramirez, OD [address] [place], [phone], [facility] 06/16/2023 16:46:48 06/17/2023 text/html Patient with type 2 diabetes mellitus with peripheral neuropathy returns to the office for evaluation and at risk foot care. Patient complains of thick toenails as well as calluses that she's not able to care for herself. Patient without any complaints of open wound or drainage. Patient seen by Armaan Sharma NP on 03/24/23. Kimber Ferguson DPM [address] [place] [address], [phone], [facility] 06/17/2023 11:49:30 10/22/2023 text/html Patient with type 2 diabetes mellitus with peripheral neuropathy returns to the office for evaluation and at risk foot care. Patient complains of thick toenails as well as calluses that she's not able to care for herself. Patient without any complaints of open wound or drainage. Patient seen by Pablo Denny MD on 08/02/23. Kimber Ferguson DPM [address] [place] [address], [phone], [facility] 10/22/2023 09:45:07 10/27/2024 text/html Patient with type 2 diabetes mellitus with peripheral neuropathy returns to the office for evaluation and at risk foot care. Patient complains of thick toenails as well as calluses that she's not able to care for herself. Patient without any complaints of open wound or drainage. Patient seen by Solange Jacobs MD on 10/05/24. Kimber Ferguson DPM [address] [place] [address], [phone], [facility] 10/27/2024 14:14:28 OBGyn Episode No OBEpisode recorded.
== END 2024-12-01 11:46 | disposition home or self-care (01) ==
LOC: HO.HGI 10:57
PROVIDERS: PCP Internal Medicine; Visit Provider Internal Medicine
DX: R15.9 Full incontinence of feces (principal); R19.7 Diarrhea, unspecified
CPT/HCPCS: 99214

== ENCOUNTER → 2024-12-01 10:57 | Outpatient (BNVA) | payer MEDICARE, OTHER, SELFPAY | PROVIDERS: PCP Internal Medicine; Visit Provider Internal Medicine | DX: R15.9 Full incontinence of feces (principal); R32 Unspecified urinary incontinence; R19.7 Diarrhea, unspecified | CPT/HCPCS: 99212 ==

== ENCOUNTER → 2024-12-28 03:05 | Outpatient (BNV) | payer MEDICARE, OTHER, SELFPAY | PROVIDERS: Visit Provider Radiology Diagnostic Radiology | DX: R07.9 Chest pain, unspecified (principal) | CPT/HCPCS: 71045 ==

== ENCOUNTER 2024-12-28 03:35 | Emergency (ER) | payer MEDICARE, OTHER, SELFPAY ==
[2024-12-28] VITALS (9 sets, daily range): BP systolic 117–186; BP diastolic 64–84; PULSE 70–106; RESP 12–20; TEMP 36.6–36.7; O2SAT 92–97; BMI 26.3
--- NOTE | 2024-12-28 | ECG_ITS ---
Test Reason : CHEST PAIN Blood Pressure : */* mmHG Vent. Rate : 95 BPM Atrial Rate : * BPM P-R Int : * ms QRS Dur : 84 ms QT Int : 366 ms P-R-T Axes : * -47 111 degrees QTcB Int : 459 ms Atrial fibrillation Left axis deviation Septal infarct (cited on or before 16-Jan-2024) ST & T wave abnormality, consider lateral ischemia Abnormal ECG When compared with ECG of 01-Aug-2024 08:51, Non-specific change in ST segment in Inferior leads T wave inversion now evident in Lateral leads Referred By: Generic ED Physician Electronically Signed By: GEORGE SCHMITT MD
--- NOTE | ~2024-12-28 | XR_ITS ---
CLINICAL HISTORY: cp 1 view chest x-ray. Comparison: CR - XR CHEST 1V - 08/01/24 12:28 EST Findings: Mild bibasilar opacity is likely atelectasis or infiltrate. Lungs appear otherwise clear. Cardiomediastinal silhouette is within normal limits. IMPRESSION: Mild bibasilar opacity likely atelectasis or infiltrate. This document has been electronically signed by: Maurizio Godinez MD on 12/28/2024 04:25:31
[2024-12-28 04:27] LABS: MANUAL DIFF FLAG NO
[2024-12-28 04:30] LABS: Hematocrit 41.1 % (37.0-47.0); Hemoglobin 13.0 g/dl (12.0-16.0); Imm Gran Abs Auto 0.05 X10*3/uL (0.00-0.03); Imm Gran Pct Auto 0.5 % (0.0-0.4); Lymphocytes Absolute Auto 2.2 X10*3/uL (1.2-4.9); Mean Corpuscular HGB Conc 31.6 g/dl (31.0-35.0); Mean Corpuscular Hemoglobin 25.7 pg (27.0-33.0); Mean Corpuscular Volume 81.4 fL (80.0-98.0); NRBC Abs Auto 0.000 X10*3/uL (0.0-0.012); NRBC Pct Auto 0.0 /100WBC (0.0-0.2); Platelet Count 308 X10*3/uL (160-400); Red Blood Count 5.05 X10*6/uL (4.20-5.50); White Blood Count 9.6 X10*3/uL (4.8-10.8)
--- NOTE | 2024-12-28 04:37 | PC.NURSE ---
pt biba from home, a&o4, respirations even and unlabored. pt reports she woke up 2 hours ago with shortness of breath with chest pain worsening with inspiration. pt reports she used her inhaler with no relief. pt received duo neb by ems. ems placed 20g in left wrist.
[2024-12-28 04:43] LABS: Alanine Aminotransferase 13 U/L (0-31); Albumin Level 3.8 g/dL (3.5-5.0); Alkaline Phosphatase 136 U/L (39-117); Anion Gap 15 (12-20); Aspartate Amino Transferase 23 U/L (5-31); Blood Urea Nitrogen 11 mg/dL (9-16); Calcium 9.3 mg/dL (8.4-10.2); Carbon Dioxide 23 mmol/L (22-29); Chloride 110 mmol/L (96-108); Creatinine Clr Calc Pharmacy 32.0; Estimated Glomerular Filt Rate 52; Potassium 3.3 mmol/L (3.3-5.1); Sodium 145 mmol/L (135-145); Total Protein 6.9 g/dL (6.5-8.0)
[2024-12-28 04:46] LABS: Troponin-I High Sensitivity 7.0 ng/L (<3.5-17.0)
[2024-12-28 05:04] LABS: Resp Syncy Virus RNA Qual PCR NEGATIVE (Negative); SARS COV2 PCR INHOUSE NEGATIVE (Negative)
--- NOTE | 2024-12-28 08:07 | ED_ITS ---
HPI - SOB/Dyspnea General Chief Complaint: Dyspnea Stated Complaint: SOB Time Seen by Provider: 12/28/24 08:05 Source: patient, EMS, RN notes reviewed and old records reviewed Mode of arrival: EMS Limitations: no limitations History of Present Illness ED Provider: Kasie Figueroa PA-C HPI Narrative: 89 yo female with history of COPD/asthma, aortic stenosis, right sided pleural effusion, paroxysmal afib, HTN, DM w/ neuropathy, TIA, insomnia, urinary incontinence, hx UTI who presents to the ER from home via EMS for evaluation of SOB for the last couple of hours. She also reports acute on chronic bilateral leg pain and lower back pain for which she follows with Dr. Jacobs. She states she lives at home alone. Overnight she was starting to get short of breath and have a productive cough of thick white phlegm. She used her inhaler with no improvement in her shortness of breath. She denies any associated chest pain, nausea, abdominal pain, vomiting, hemoptysis, fever or chills. No known sick contacts. MD elicited complaint: shortness of breath and cough Pertinent past history: COPD and asthma Onset (ago): hour(s) Timing: progressively worsening Severity: moderate Exacerbating factors: coughing Relieving factors: nothing Known history of: COPD, asthma and congestive heart failure Associated symptoms: lower extremity pain Treatment prior to arrival: bronchodilator Related Data Home oxygen amount: none Home Medications ?Medication ?Instructions ?Recorded ?Confirmed alprazolam 0.25 mg tablet 0.25 mg PO DAILY PRN anxiety 08/01/24 10/05/24 metoprolol succinate 50 mg 50 mg PO DAILY 08/01/2411/24 tablet,extended release 24 hr Previous Rx's ?Medication ?Instructions ?Recorded PEDIATRIC FRONT WHEELED WALKER #1 ea 09/18/23 lancets 28 gauge (FreeStyle #100 ea 11/17/23 Lancets) hydroxyzine HCl 25 mg tablet 25 mg PO Q8H PRN itching #20 tabs 08/02/24 ascorbic acid (vitamin C) 500 mg 500 mg PO DAILY #90 t abs 08/04/24 tablet (Vitamin C) cholecalciferol (vitamin D3) 25 25 mcg PO DAILY #90 ca ps 08/04/24 mcg (1,000 unit) capsule cyanocobalamin (vitamin B-12) 1,000 mcg PO DAILY #90 t abs 08/04/24 1,000 mcg tablet (Vitamin B-12) digoxin 125 mcg (0.125 mg) tablet 125 mcg PO 3XW 90 da ys #90 tabs 08/04/24 lidocaine 5 % topical patch 1 patch topical DAILY #90 ea 08/06/24 alprazolam 0.25 mg tablet 0.25 mg PO DAILY PRN anxiety #20 08/11/24 tabs incontinence pad, liner, disp #60 ea 08/19/24 pregabalin 100 mg capsule 100 mg PO Q12H 31 days #62 c aps 08/31/24 blood sugar diagnostic (FreeStyle #100 ea 09/16/24 Lite Strips) diclofenac sodium 1 % topical gel 1 ea topical QID #10 0 grams 09/23/24 apixaban 2.5 mg tablet (Eliquis) 2.5 mg PO BID #180 ta bs 10/05/24 famotidine 40 mg tablet 40 mg PO BEDTIME #90 tabs nystatin 100,000 unit/gram topical 1 appl topical MONIKA Y #30 grams 10/05/24 cream tamsulosin 0.4 mg capsule 0.4 mg PO BEDTIME #90 caps 0 10/22/24 atorvastatin 40 mg tablet (Lipitor) 40 mg PO BEDTIME # 90 tabs 11/29/24 empagliflozin 25 mg tablet 25 mg PO DAILY #90 tabs 06/26 (Jardiance) furosemide 40 mg tablet 40 mg PO DAILY #90 tabs 0706/26 glycerin (child) 2 supp [place] DAILY 30 days #60 ea 12/01/24 psyllium husk 0.4 gram capsule 0.8 g (2 x 0.4 gram) PO BEDTIME 30 12/01/24 (Daily Fiber) days #60 caps Adult pull ups #300 ea 12/10/24 zolpidem 5 mg tablet 5 mg PO BEDTIME PRN insomnia #30 12/16/24 tabs doxycycline hyclate 100 mg tablet 100 mg PO BID #13 ta bs 12/28/24 nitrofurantoin 100 mg PO Q12H 5 days #10 ca ps 12/28/24 monohydrate/macrocrystals 100 mg capsule (Macrobid) prednisone 10 mg tablets in a dose See Taper PO DAILY #30 ea 12/28/24 pack Allergies Allergy/AdvReac Type Severity Reaction Status Date / Time ciprofloxacin Allergy Severe unknown Verified 12/28/24 03:49 aspirin (Aspirin) Allergy Unknown UNKNOWN Verified 12/28/24 03:49 cefuroxime Allergy Unknown Unknown Verified 12/28/24 03:49 celecoxib (From Celebrex) Allergy Unknown UNKNOWN Verified 12/28/24 03:49 metformin Allergy Unknown diarrhea Verified 12/28/24 03:49 risedronate sodium (From Allergy Unknown UNKNOWN Verified 12/28/24 03:49 Actonel) Sulfa (Sulfonamide Allergy Unknown unknown Verified 12/28/24 03:49 Antibiotics) bupropion AdvReac Intermediate tremor Verified 12/28/24 03:49 ferrous sulfate AdvReac Intermediate tremors Verified 12/28/24 03:49 sertraline AdvReac Intermediate tremors Verified 12/28/24 03:49 Review of Systems 2 Review of Systems: Yes all other systems are reviewed and are negative [facility] Past Medical History Medical History Diarrhea Constipation Weakness Dizziness and giddiness Weakness Yeast infection of the skin Exercise hypoxemia Acute respiratory failure with hypoxia Lipoma of lower back Urinary incontinence Cystitis Acute urinary retention Acute diverticulitis of intestine Generalized abdominal pain Diverticular disease Nausea & vomiting Failure to thrive in adult TSH elevation CHF (congestive heart failure) Atrial fibrillation with RVR Atrial fibrillation with RVR Type 2 diabetes mellitus with hyperglycemia Diabetes mellitus Asthma Hypokalemia Hypomagnesemia Hearing difficulty Dyspnea on exertion History of gastrointestinal diverticular hemorrhage COVID-19 virus infection Rectal bleeding Medicare annual wellness visit, initial Hip pain, left Patellar sleeve fracture of right knee Knee pain, right Nausea and vomiting Coarse tremors Shoulder pain, right Hospital discharge follow-up Mass on back Tinea corporis Nausea Right wrist pain Left knee pain Left hip pain Toe pain, left Breast cancer screening by mammogram UTI (urinary tract infection) Obesity (BMI 30-39.9) Urinary frequency Toe fracture, left Pancreatic cyst Osteoporosis Peptic ulcer disease Urinary incontinence Rectal incontinence GERD (gastroesophageal reflux disease) Bile salt-induced diarrhea Vaginal prolapse Renal artery stenosis Asthma Lumbar degenerative disc disease Insomnia TIA (transient ischemic attack) Hyperlipidemia, unspecified Essential hypertension Surgical History Hx of colonoscopy History of esophagogastroduodenoscopy (EGD) History of removal of cyst (~05/18/22) History of hemorrhoidectomy History of colectomy History of section History of hysterectomy History of appendectomy History of cholecystectomy Family History Family History Father Cancer Arterial thrombosis Mother Multiple sclerosis Muscular dystrophy Hypertension Depression Chronic mental illness Mental health disorder Brother No problems noted. Brother Gangrene Sister No problems noted. Son No problems noted. Son No problems noted. Son No problems noted. Son No problems noted. Daughter No problems noted. Daughter No problems noted. Daughter No problems noted. Social History Social History Household Members: None Housing: Apartment Do you presently have visiting nurse or other home services: Yes Alcohol intake: former Comment: 1:1 sitter Patient Tobacco Use Status: Former Tobacco user Tobacco use type: Cigarette Years Smoked: 22 Smoked in Last 30 Days: No e-Cigarette/Vaping Use: Former Use Second Hand Smoke Exposure: Yes Use of substances other than those prescribed or required for medical reasons: No Advance Directives: Yes Advance Directives on File: Yes Advance Directives Date on File: 08/11/23 Do you have a plan to hurt others: No Plan service: No Current occupational status: disabled Current occupational exposures/hazards: No Cognitive needs: Yes (walker) Hearing needs: Yes Vision needs: Yes (Glasses) Physical Exam 2 Exam: Exam: Appearance: Alert elderly female lying on her side, complaining of back pain Oriented X3. No acute distress. Head: normocephalic, atraumatic. Eyes: Pupils equal, round and reactive to light. ENT: Pharynx normal. No tonsillar swelling or exudate. Neck: Normal inspection. Neck supple. CVS: Irregularly irregular, regular rate, harsh systolic murmur. Pulses normal. Respiratory: No respiratory distress. Breath sounds with end-expiratory wheezes in the left lung, slightly prolonged expiratory phase. No rhonchi. Speaking in complete sentences Abdomen: Soft and nontender. +BS x4 Skin: Skin warm and dry. Normal skin color. Normal skin turgor. No rashes. Extremities: No lower extremity edema. No joint swelling. Neuro/psych: Oriented X 3. No motor deficit. No sensory deficit. CN II-XII intact. Normal speech and cognition. Vital Signs: Vital Signs: Last Vital Signs Temp 98.0 F 12/28/24 09:29 Pulse 70 12/28/24 13:52 Resp 19 12/28/24 13:52 BP 158/64 H 12/28/24 13:52 Pulse Ox 97 12/28/24 13:52 O2 Del Method Room Air 12/28/24 13:52 BMI result Body Mass Index 26.3 Course Reevaluation(s) Reevaluation #1: Physician observation started at 1125. Patient placed in physician observation because patient is awaiting PT evaluation for the possible need of acute rehab. At the time observation was started patient's vital signs were stable. Patient is alert and oriented. Neuro exam is non-focal. CV: irregular irregular, and lungs have mild wheeze on the left. Will continue to monitor. Reevaluation #2: Physician observation continued throughout the day today. Patient was evaluated by Physical therapy who is recommending short-term rehab. Patient has been accepted to [facility] for acute rehab. She will receive 3 hours of therapy per day. This was discussed with the patient and her sister. Initially she was declining however after counseling she was accepting to this disposition. She will need to continue on antibiotics for UTI and COPD exacerbation. It is also recommended that she continue on prednisone taper and some form of Respiratory therapy/bronchodilators with inhalers or nebulizer treatments. Her vital signs remained stable here. She does not require medical admission to the hospital at this time and can safely be discharged to acute rehab. Patient agrees with plan. Time: 16:58 Medications Administered Generic Name Dose Route Start Last Admin Trade Name Freq PRN Reason Stop Dose Admin Doxycycline Monohydrate 100 mg 12/28/24 11:30 12/28/24 12:38 Doxycycline Monohydrate 100 Mg Capsule PO 100 mg BID JAREK Administration Nitrofurantoin Macrocrystals 100 mg 12/28/24 12:05 12/28/24 12:38 Nitrofurantoin Monohyd/M-Cryst 100 Mg Capsule PO 100 mg BID JAREK Administration Discontinued Medications Generic Name Dose Route Start Last Admin Trade Name Freq PRN Reason Stop Dose Admin Acetaminophen 975 mg 12/28/24 08:25 12/28/24 08:41 Acetaminophen 325 Mg Tablet PO 12/28/24 08:26 975 mg ONCE ONE Administration Albuterol Sulfate 2.5 mg/ 0 mg 12/28/24 08:52 12/28/24 09:03 Albuterol/Ipratropium 3 ml INHALE 12/28/24 08:53 1 dose ONCE ONE Administration Guaifenesin 1,200 mg 12/28/24 08:25 12/28/24 08:41 Guaifenesin La 600 Mg Tab.Er.12h PO 12/28/24 08:26 1,200 mg ONCE ONE Administration Lidocaine 1 patch 12/28/24 11:11 12/28/24 11:19 Lidocaine 4 % Patch Adh..Patch TRANSDERMA 12/28/24 11:12 1 patch ONCE ONE Administration Protocol Morphine Sulfate 2 mg 12/28/24 11:11 12/28/24 11:18 Morphine Sulfate 2 Mg/Ml Cartridge IVPUSH 12/28/24 11:12 2 mg ONCE ONE Administration Protocol Potassium Chloride 40 meq 12/28/24 08:46 12/28/24 09:27 Potassium Chloride Er 20 Meq Tab.Er.Prt PO 12/28/24 08:47 40 meq ONCE ONE Administration Prednisone 40 mg 12/28/24 08:25 12/28/24 08:41 Prednisone 20 Mg Tablet PO 12/28/24 08:26 40 mg ONCE ONE Administration Pregabalin 100 mg 12/28/24 11:11 12/28/24 11:19 Pregabalin 100 Mg Capsule PO 12/28/24 11:12 100 mg ONCE ONE Administration Medical Decision Making Medical Decision Making MDM Narrative: 89 yo female with history of COPD/asthma, aortic stenosis, right sided pleural effusion, paroxysmal afib, HTN, DM w/ neuropathy, TIA, insomnia, urinary incontinence, hx UTI who presents to the ER from home via EMS for evaluation of SOB for the last couple of hours. On arrival to the ER patient is hypertensive to the 180s systolic, she is saturating 93% on room air and she is afebrile. No respiratory distress. Labs are reassuring with no leukocytosis. She has a negative troponin. Her BNP is 243, down from 639 back in June. Her chest x- ray is showing some mild bibasilar opacities. This appears similar to prior. She did have some expiratory wheezing on the left side so she was given oral prednisone and ED bronchodilator protocol was ordered. On evaluation her wheezing has improved. She continues to complain of back and leg pain. She is on Lyrica. She denies any injuries or falls. She states this pain is her usual chronic pain. Will give her her Lyrica here along with a 1 time dose of low-dose morphine for acute exacerbation. Her respiratory status is improved, she remains afebrile and not hypoxic. She is not requiring medical admission to the hospital at this time. Will place her in physician observation for physical therapy evaluation and have case management see her. Physician observation started 11:25. Patient found to have a urinary tract infection. allergy to cephalosporin, cipro, bactrim. will start macrobid in addition to doxycycline for COPD exacerbation. PT evaluation pending. pain improved after morphine 2mg and lyrica. will continue to monitor Patient safe for discharge to [facility] for rehab Differential Diagnosis Differential Diagnoses: The differential diagnosis associated with the presentation includes COPD exacerbation, asthma exacerbation, viral URI, bacterial pneumonia, anxiety, CHF exacerbation Admission/Observation Consideration of admission/observation: Escalation of care including admission/observation considered Lab Data [facility] Lab Attestation statement: I reviewed the patient's lab results. 12/28/24 04:23 12/28/24 04:23 Labs: Lab Results 12/28/24 12/28/24 Range/Units 04:23 11:30 WBC 9.6 (4.8-10.8) X10*3/uL RBC 5.05 (4.20-5.50) X10*6/uL Hgb 13.0 (12.0-16.0) g/dl Hct 41.1 (37.0-47.0) % MCV 81.4 (80.0-98.0) fL MCH 25.7 L (27.0-33.0) pg MCHC 31.6 (31.0-35.0) g/dl RDW 18.6 H (11.0-16.0) % Plt Count 308 (160-400) X10*3/uL MPV 10.1 (9.4-12.3) fL Immature Gran % (Auto) 0.5 H (0.0-0.4) % Neut % (Auto) 62.5 (45-73) % Lymph % (Auto) 22.6 (20-40) % [place] % (Auto) 12.9 H (2-11) % Eos % (Auto) 1.2 (0-4) % Baso % (Auto) 0.3 (0-2) % Lymph # (Auto) 2.2 (1.2-4.9) X10*3/uL [place] # (Auto) 1.2 (0.1-1.2) X10*3/uL Eos # (Auto) 0.1 (0.0-0.4) X10*3/uL Baso # (Auto) 0.0 (0.0-0.2) X10*3/uL Abs Immat Gran (auto) 0.05 H (0.00-0.03) X10*3/uL Absolute Neuts (auto) 6.0 (2.0-8.3) x10*3/uL Absolute Nucleated RBC 0.000 (0.0-0.012) X10*3/uL Nucleated RBC % (auto) 0.0 (0.0-0.2) /100WBC Sodium 145 (135-145) mmol/L Potassium 3.3 (3.3-5.1) mmol/L Chloride 110 H (96-108) mmol/L Carbon Dioxide 23 (22-29) mmol/L Anion Gap 15 (12-20) BUN 11 (9-16) mg/dL Creatinine 1.01 (0.5-1.4) mg/dL Estim Creat Clear Calc 32.0 Estimated GFR 52 Random Glucose 172 H (60-115) mg/dL Calcium 9.3 (8.4-10.2) mg/dL Total Bilirubin 0.6 (0.0-1.0) mg/dL AST 23 (5-31) U/L ALT 13 (0-31) U/L Alkaline Phosphatase 136 H (39-117) U/L Troponin I High Sens 7.0 (<3.5-17.0) ng/L B-Natriuretic Peptide 243 H (<100) pg/mL Total Protein 6.9 (6.5-8.0) g/dL Albumin 3.8 (3.5-5.0) g/dL Urine Color Yellow Urine Appearance Clear Urine pH 7.0 (5.0-9.0) Ur Specific [place] 1.015 (1.005-1.025) Urine Protein Negative (Neg-Trace) mg/dL Urine Glucose (UA) >=1000 H (Negative) mg/dL Urine Ketones Negative (Negative) mg/dL Urine Blood Small (1+) H (Negative) Urine Nitrite Negative (Negative) Ur Leukocyte Esterase Moderate (2+) H (Negative) Urine RBC 11-20 H (0-2) /HPF Urine WBC 11-20 H (0-5) /HPF Ur Squamous Epith Cells 3-5 (0-2) /HPF Urine Bacteria Trace (None Seen) Hyaline Casts 0-2 (0-2) /LPF Influenza Type A (PCR) NEGATIVE (Negative) Influenza Type B (PCR) NEGATIVE (Negative) RSV RNA Qual (PCR) NEGATIVE (Negative) SARS-CoV-2 RNA (RT-PCR) NEGATIVE (Negative) Independent Interpretation I performed an independent interpretation of an: EKG and Plain X-Ray Interpretation: EKG with atrial fibrillation, ventricular rate 95 beats per minute, normal QTC, no significant change from July when compared to prior Chest x-ray with some mild bibasilar opacities, some central vascular congestion without overt pulmonary edema or pleural effusion, no dense consolidation to suggest pneumonia Radiology Impression Discussion of test interpretation with radiology: I have reviewed the radiologist's reading. External Record Review External record reviewed: Inpatient record, Outpatient record, Prior outpatient labs and Prior outpatient radiology Prescription Management I considered prescription management with: Pain Medication, Antibiotic and Other (Consider diuretic however she does not seem to be in acute heart failure exacerbation) Chronic Conditions Patient?s care impacted by: Diabetes, Hypertension and Other (COPD and asthma) Critical Care Time Critical Care Time Critical Care Time: No Discharge Plan Discharge Clinical Impression: Acute exacerbation of chronic obstructive airways disease, Acute UTI Patient Disposition: Xfer Inpatient Rehab Fac Transfer Details: [facility] Instructions: COPD (Chronic Obstructive Pulmonary Disease) (DC), Urinary Tract Infection in Older Adults (ED) Additional Instructions: You were found to have urinary tract infection. Your started on nitrofurantoin for this. You likely also the mild COPD exacerbation with increased phlegm, cough and some mild wheezing. Recommend prednisone taper and doxycycline for this, along with Mucinex 2 times per day. You are being discharged to [facility] for acute rehab. Follow up with your PCP as soon as possible. If you develop new or worsening symptoms call 911 or come back to the ER for further evaluation. Prescriptions: New nitrofurantoin monohyd/m-cryst [Macrobid] 100 mg capsule 100 mg PO Q12H 5 Days Qty: 10 0RF Rx Instructions: must administer with a meal/food prednisone 10 mg tablets,dose pack See Taper PO DAILY Qty: 30 0RF Taper: Prednisone 40 mg daily for 3 Days and 0 Hour 30 mg daily for 3 Days and 0 Hour 20 mg daily for 3 Days and 0 Hour 10 mg daily for 3 Days and 0 Hour Rx Instructions: 40 mg Daily x3 days, 30 mg daily x3 days, 20 mg daily x3 days, 10 mg daily x3 days doxycycline hyclate 100 mg tablet 100 mg PO BID Qty: 13 0RF No Action (DME) lancets [FreeStyle Lancets] 28 gauge misc See Rx Instructions .ROUTE .MEDSUPPLY Qty: 100 3RF Rx Instructions: use to test sugar once a day cyanocobalamin (vitamin B-12) [Vitamin B-12] 1,000 mcg tablet 1,000 mcg PO DAILY Qty: 90 0RF ascorbic acid (vitamin C) [Vitamin C] 500 mg tablet 500 mg PO DAILY Qty: 90 1RF cholecalciferol (vitamin D3) 25 mcg (1,000 unit) capsule 25 mcg PO DAILY Qty: 90 1RF digoxin 125 mcg (0.125 mg) tablet 125 mcg PO 3XW 90 Days Qty: 90 0RF lidocaine 5 % adhesive patch,medicated 1 patch topical DAILY Qty: 90 2RF Rx Instructions: leave on most painful area for up to 12 hrs alprazolam 0.25 mg tablet 0.25 mg PO DAILY PRN (Reason: anxiety) Qty: 20 0RF (DME) incontinence pad, liner, disp Pad See Rx Instructions .Route Qty: 60 5RF Rx Instructions: As directed pregabalin 100 mg capsule 100 mg PO Q12H 31 Days Qty: 62 2RF (DME) FreeStyle Lite Strips Strip See Rx Instructions .ROUTE .MEDSUPPLY Qty: 100 3RF Rx Instructions: As directed check the BS QD diclofenac sodium 1 % gel 1 ea topical QID Qty: 100 12RF tamsulosin 0.4 mg capsule 0.4 mg PO BEDTIME Qty: 90 0RF atorvastatin [Lipitor] 40 mg tablet 40 mg PO BEDTIME Qty: 90 0RF furosemide 40 mg tablet 40 mg PO DAILY Qty: 90 0RF Jardiance 25 mg tablet 25 mg PO DAILY Qty: 90 0RF (DME) Adult pull ups See Rx Instructions .Route .MEDSUPPLY Qty: 300 11RF Rx Instructions: As directed zolpidem 5 mg tablet 5 mg PO BEDTIME PRN (Reason: insomnia) Qty: 30 0RF metoprolol succinate 50 mg tablet extended release 24 hr 50 mg PO DAILY alprazolam 0.25 mg tablet 0.25 mg PO DAILY PRN (Reason: anxiety) hydroxyzine HCl 25 mg tablet 25 mg PO Q8H PRN (Reason: itching) Qty: 20 0RF (DME) PEDIATRIC FRONT WHEELED WALKER See Rx Instructions .Route .MEDSUPPLY Qty: 1 0RF Rx Instructions: As directed glycerin (child) Suppository 2 supp [place] DAILY 30 Days Qty: 60 1RF psyllium husk [Daily Fiber] 0.4 gram capsule 0.8 g PO BEDTIME 30 Days Qty: 60 1RF nystatin 100,000 unit/gram cream 1 appl topical DAILY Qty: 30 0RF Eliquis 2.5 mg tablet 2.5 mg PO BID Qty: 180 3RF famotidine 40 mg tablet 40 mg PO BEDTIME Qty: 90 0RF Referrals: Po,Solange Giles MD [Physician, Internal Medicine] Print Language: Maltese
[2024-12-28] MEDS: guaiFENesin LA 600 MG TAB.ER.12H 1200 MG PO (08:41)
[2024-12-28 08:45] LABS: B Type Natriuretic Peptide 243 pg/mL (<100)
[2024-12-28] MEDS: Albuterol Sulfate 2.5 MG, Albuterol/Iprat 2.5/0.5MG 3 ML 3 ML INHALE (09:03)
[2024-12-28] MEDS: Potassium Chloride ER 20 MEQ TAB.ER.PRT 40 MEQ PO (09:27)
[2024-12-28] MEDS: Lidocaine 4 % Patch ADH..PATCH 1 PATCH TRANSDERMA (11:19)
--- NOTE | 2024-12-28 11:30 | PC.NURSE ---
patient remains in bed 3, medicated per MAR for pain. patient is tearful stating she does not understand why her pain wont go away. patient incontinent of urine, clean pads and linens placed. patient repositioned in bed.
[2024-12-28 11:46] LABS: Appearance Urine Clear; Glucose Urine UA >=1000 mg/dL (Negative); PH 7.0 (5.0-9.0); Specific Gravity - Urine 1.015 (1.005-1.025); UMIC TRIGGER UACC YES
[2024-12-28 11:53] LABS: UACC Culture Trigger YES
--- NOTE | 2024-12-28 14:53 | MHC.CM.ED ---
Addendum entered by Veronica Patricio 12/28/24 16:09: [facility] is willing to offer a bed. Patient is declining rehab at this time. Aware she will be d/c'd home but does not have her keys. Requesting CM speak to her friend/neighbor Abbi via telephone at [phone]. No answer. Unable to leave a message. Spoke with sister, Lili. Lili is unable to transport patient. Original Note: Received case management consult from Rehana ARELLANO. Patient came to the ER due to shortness of breath. Physical therapy eval completed. Rehab is recommended. Does not appear patient has been inpatient in any facility in the past 30 days. Referral will be sent to all 3 acute rehab facilties. Continue to monitor for d/c needs.
--- NOTE | 2024-12-28 16:16 | PC.NURSE ---
patient states she has pain all over including her bottom, patient rectum area noted to be red and inflamed.
--- NOTE | 2024-12-28 16:25 | MHC.CM.ED ---
Patient has decided to go to [facility]. Chele IRELANDS booked for 530pm. Med nec with chart. Patient, sister Haily Pearson RN and Rehana ARELLANO aware. Continue to monitor for d/c needs.
--- NOTE | 2024-12-28 18:36 | PC.NURSE ---
ems tx to [facility]
== END 2024-12-28 19:05 ==
PROVIDERS: Physician Assistant; Emergency Provider Emergency Medicine; PCP Internal Medicine
DX: J44.1 Chronic obstructive pulmonary disease with (acute) exacerbation (principal); N39.0 Urinary tract infection, site not specified; R06.02 Shortness of breath; R05.9 Cough, unspecified; E11.9 Type 2 diabetes mellitus without complications; I10 Essential (primary) hypertension; E78.5 Hyperlipidemia, unspecified; I48.0 Paroxysmal atrial fibrillation; Z86.73 Personal history of transient ischemic attack (TIA), and cerebral infarction without residual deficits; Z79.01 Long term (current) use of anticoagulants; Z87.891 Personal history of nicotine dependence
CPT/HCPCS: 71045; 80053; 81001; 83880; 84484; 85025; 87086; 87637; 93005; 96374; 97162; 99285; J2270

== ENCOUNTER → 2024-12-28 03:52 | Outpatient (BNV) | payer MEDICARE, OTHER, SELFPAY | PROVIDERS: Emergency Provider Emergency Medicine; Visit Provider Internal Medicine Cardiovascular Disease | DX: I48.91 Unspecified atrial fibrillation (principal); I25.2 Old myocardial infarction | CPT/HCPCS: 93010 ==

== ENCOUNTER 2025-01-10 10:02 | Emergency (ER) | payer MEDICARE, OTHER, SELFPAY ==
--- OUTSIDE RECORDS SUMMARY | 2019-07-01 11:53 | XMS_ITS | Continuity of Care Document ---
Author Organization [facility] Address [address] [address] Phone Care Team Providers Care Quarry Supervisor Open Pit Name Role Phone Anton Jean Baptiste DO Unavailable Unavailable Advance Directives Directive Yes / No Effective Date File Name No Information Encounters Encounter Description Practice Location Reason(s) For Visit Diagnoses Date Provider [facility], [address] [place] [address], [id number], [place] tel:[phone] [address] [place] [address] No Information 2019 Markel Walton. [address] [place] [address], [id number], [place]. tel:[phone] Family History Family Member Type Diagnosis Age [...]
--- NOTE | ~2025-01-10 | XR_ITS ---
EXAMINATION: XR RIBS 3 VIEWS MINIMUM WITH CHEST LEFT HISTORY: FALL COMPARISON: Comparison is made with the prior examination of the chest dated 12/28/2024. FINDINGS: A single AP view of the chest and 3 views of the left ribs are submitted. The lungs are expanded and clear. There is no pleural effusion, pneumothorax, or pulmonary vascular congestion. The heart is normal in size. The aorta is calcified. There is severe degenerative disc disease of the spine. There is an old healed fracture of the left 10th rib. XR/XR ribs LT min 3V w CXR1V IMPRESSION: Old healed fracture of the left 10th rib. No acute fracture is identified. Electronically signed by: Brandon Devries MD 01/10/2025 11:16 AM EDT
--- NOTE | ~2025-01-10 | CT_ITS ---
EXAMINATION: CT HEAD WITHOUT IV CONTRAST HISTORY: fall, head strike, on eliquis. TECHNIQUE: Unenhanced helical CT of the head was performed per standard departmental protocol. Coronal and sagittal reformats of the head were also evaluated. One or more of the following techniques was used for dose reduction: Automated exposure control, adjustment of the mA and/or kV according to patient size, use of iterative reconstruction technique. DLP: 564 mGy-cm COMPARISON: Comparison is made with the prior examination dated 08/01/2024. FINDINGS: BRAIN: There is diffuse prominence of the ventricular system and cortical sulci, consistent with atrophy. Periventricular and subcortical white matter hypodensities are noted which are nonspecific, but often seen in the setting of small vessel ischemic disease. There is no mass effect or midline shift. No intra- or extra-axial fluid collections are identified. SINUSES: The visualized paranasal sinuses are clear. The mastoid air cells and middle ear cavities are well pneumatized. ORBITS: The visualized orbits are unremarkable. BONES/SOFT TISSUES: The extracranial soft tissues are unremarkable. The calvarium is intact. No suspicious lytic or sclerotic lesions. CT/CT head/brain wo IV con IMPRESSION: No acute intracranial abnormality. Electronically signed by: Brandon Devries MD 01/10/2025 12:51 PM EDT
--- NOTE | ~2025-01-10 | CT_ITS ---
EXAMINATION: CT CERVICAL SPINE WITHOUT IV CONTRAST HISTORY: fall, head strike. TECHNIQUE: Helical CT of the cervical spine was performed per standard departmental protocol. Coronal and sagittal reformatted images were also evaluated. One or more of the following techniques was used for dose reduction: Automated exposure control, adjustment of the mA and/or kV according to patient size, use of iterative reconstruction technique. DLP: 322 mGy-cm COMPARISON: Comparison is made with the prior examination dated 05/06/2024. FINDINGS: CERVICAL SPINE: The vertebral bodies maintain normal height and alignment without evidence of fracture or subluxation. There is moderate degenerative disc disease at the C4-5 and C5-6 levels, with disc space narrowing and osteophyte formation. Evaluation for disc pathology is limited by lack of intrathecal contrast material, however. BRAIN: The visualized portion of the brain is unremarkable. SINUSES: The visualized paranasal sinuses, mastoid air cells and middle ear cavities are unremarkable. LUNG APICES: The visualized lung apices are clear. SOFT TISSUES: The visualized paraspinal soft tissues are unremarkable. CT/CT cervical spine wo IV con IMPRESSION: No evidence of fracture or malalignment of the cervical spine. Degenerative changes as described. Electronically signed by: Brandon Devries MD 01/10/2025 01:07 PM EDT
[2025-01-10 10:36] VITALS: BP 153/77; PULSE 74; RESP 16; TEMP 36.3; O2SAT 98; BMI 26.7
--- NOTE | 2025-01-10 11:37 | ED_ITS ---
HPI - General Adult General Chief complaint: Fall Stated complaint: Fall sat, side pain/ Ribs Time Seen by Provider: 01/10/25 11:37 Source: patient and family (patient's son) Mode of arrival: ambulatory History of Present Illness ED Provider: Rachael Britt PA-C HPI narrative: Patient is an 89 [id number] with a past medical history of COPD/asthma, aortic stenosis, right sided pleural effusion, paroxysmal afib on anti-coags, HTN, DM w/ neuropathy, TIA, insomnia, hx of UTIs presenting with left sided rib pain after a mechanical fall 2 days ago. The patient lives alone and admitted to a fall after her knee gave out. She endorses head strike but denies LOC. She was not dizzy or lightheaded prior to the fall. She was able to stand up after the fall and only decided to come to the ED today because she told her son that she had a fall. She denies headache, fatigue, change in vision, chest pain (other than the rib pain), shortness of breath, nausea, vomiting, or abdominal pain. Onset (ago): day(s) Related Data Home Medications ?Medication ?Instructions ?Recorded ?Confirmed alprazolam 0.25 mg tablet 0.25 mg PO DAILY PRN anxiety 08/01/24 10/05/24 metoprolol succinate 50 mg 50 mg PO DAILY 08/01/2411/24 tablet,extended release 24 hr Previous Rx's ?Medication ?Instructions ?Recorded PEDIATRIC FRONT WHEELED WALKER #1 ea 09/18/23 lancets 28 gauge (FreeStyle #100 ea 11/17/23 Lancets) hydroxyzine HCl 25 mg tablet 25 mg PO Q8H PRN itching #20 tabs 08/02/24 ascorbic acid (vitamin C) 500 mg 500 mg PO DAILY #90 t abs 08/04/24 tablet (Vitamin C) cholecalciferol (vitamin D3) 25 25 mcg PO DAILY #90 ca ps 08/04/24 mcg (1,000 unit) capsule cyanocobalamin (vitamin B-12) 1,000 mcg PO DAILY #90 t abs 08/04/24 1,000 mcg tablet (Vitamin B-12) lidocaine 5 % topical patch 1 patch topical DAILY #90 ea 08/06/24 alprazolam 0.25 mg tablet 0.25 mg PO DAILY PRN anxiety #20 08/11/24 tabs incontinence pad, liner, disp #60 ea 08/19/24 blood sugar diagnostic (FreeStyle #100 ea 09/16/24 Lite Strips) diclofenac sodium 1 % topical gel 1 ea topical QID #10 0 grams 09/23/24 apixaban 2.5 mg tablet (Eliquis) 2.5 mg PO BID #180 ta bs 10/05/24 nystatin 100,000 unit/gram topical 1 appl topical MONIKA Y #30 grams 10/05/24 cream tamsulosin 0.4 mg capsule 0.4 mg PO BEDTIME #90 caps 0 10/22/24 glycerin (child) 2 supp CO DAILY 30 days #60 ea 12/01/24 psyllium husk 0.4 gram capsule 0.8 g (2 x 0.4 gram) PO BEDTIME 30 12/01/24 (Daily Fiber) days #60 caps Adult pull ups #300 ea 12/10/24 zolpidem 5 mg tablet 5 mg PO BEDTIME PRN insomnia #30 12/16/24 tabs doxycycline hyclate 100 mg tablet 100 mg PO BID #13 ta bs 12/28/24 nitrofurantoin 100 mg PO Q12H 5 days #10 ca ps 12/28/24 monohydrate/macrocrystals 100 mg capsule (Macrobid) prednisone 10 mg tablets in a dose See Taper PO DAILY #30 ea 12/28/24 pack famotidine 40 mg tablet 40 mg PO BEDTIME #90 tabs atorvastatin 40 mg tablet (Lipitor) 40 mg PO BEDTIME # 90 tabs 01/10/25 digoxin 125 mcg (0.125 mg) tablet 125 mcg PO 3XW 90 da ys #90 tabs 01/10/25 empagliflozin 25 mg tablet 25 mg PO DAILY #90 tabs 04/26 (Jardiance) furosemide 40 mg tablet 40 mg PO DAILY #90 tabs 12/31 06/26 pregabalin 100 mg capsule 100 mg PO Q12H 31 days #62 c aps 01/10/25 Allergies Allergy/AdvReac Type Severity Reaction Status Date / Time ciprofloxacin Allergy Severe unknown Verified 01/10/25 10:38 aspirin (Aspirin) Allergy Unknown UNKNOWN Verified 01/10/25 10:38 cefuroxime Allergy Unknown Unknown Verified 01/10/25 10:38 celecoxib (From Celebrex) Allergy Unknown UNKNOWN Verified 01/10/25 10:38 metformin Allergy Unknown diarrhea Verified 01/10/25 10:38 risedronate sodium (From Allergy Unknown UNKNOWN Verified 01/10/25 10:38 Actonel) Sulfa (Sulfonamide Allergy Unknown unknown Verified 01/10/25 10:38 Antibiotics) bupropion AdvReac Intermediate tremor Verified 01/10/25 10:38 ferrous sulfate AdvReac Intermediate tremors Verified 01/10/25 10:38 sertraline AdvReac Intermediate tremors Verified 01/10/25 10:38 Review of Systems Constitutional: Constitutional: Reports no additional constitutional complaints, Denies chills, Denies fever(s) and Denies night sweats Eyes: Eyes: Reports no additional eye complaints, Denies blurry vision, Denies change in vision, Denies diplopia, Denies eye discharge, Denies loss of vision and Denies eye pain ENT: Denies dizziness Cardiovascular: Cardiovascular: Reports no additional cardiovascular complaints, Denies chest pain, Denies lightheadedness, Denies Loss of C onsciousness and Denies dyspnea Respiratory: Respiratory: Reports no additional respiratory complaints and Denies dyspnea Gastrointestinal: Gastrointestinal: Denies abdominal pain Genitourinary: Genitourinary: Denies hematuria and Denies dysuria Musculoskeletal: Musculoskeletal: Denies numbness, Denies tingling and Reports other (left lower rib pain) Neurologic: Denies dizziness, Denies loss of vision, Denies numbness and Denies tingling Psychiatric: Psychiatric: Reports no additional psychiatric complaints Endocrine: Endocrine: Reports no additional endocrine complaints Hematologic/Lymphatic: Hematologic/Lymphatic: Reports no additional hematologic/lymphatic complaints Allergic/Immunologic: Allergic/Immunologic: Reports no additional allergic/immunologic complaints [facility] Past Medical History Attestation statement: The following information was validated with the patient. (all information validated with the patient's son) Source: old records reviewed, obtained from family (patient's son provided additional history and confirmed the history provided by the patient) and nursing notes reviewed Medical History Diarrhea Constipation Weakness Dizziness and giddiness Weakness Yeast infection of the skin Exercise hypoxemia Acute respiratory failure with hypoxia Lipoma of lower back Urinary incontinence Cystitis Acute urinary retention Acute diverticulitis of intestine Generalized abdominal pain Diverticular disease Nausea & vomiting Failure to thrive in adult TSH elevation CHF (congestive heart failure) Atrial fibrillation with RVR Atrial fibrillation with RVR Type 2 diabetes mellitus with hyperglycemia Diabetes mellitus Asthma Hypokalemia Hypomagnesemia Hearing difficulty Dyspnea on exertion History of gastrointestinal diverticular hemorrhage COVID-19 virus infection Rectal bleeding Medicare annual wellness visit, initial Hip pain, left Patellar sleeve fracture of right knee Knee pain, right Nausea and vomiting Coarse tremors Shoulder pain, right Hospital discharge follow-up Mass on back Tinea corporis Nausea Right wrist pain Left knee pain Left hip pain Toe pain, left Breast cancer screening by mammogram UTI (urinary tract infection) Obesity (BMI 30-39.9) Urinary frequency Toe fracture, left Pancreatic cyst Osteoporosis Peptic ulcer disease Urinary incontinence Rectal incontinence GERD (gastroesophageal reflux disease) Bile salt-induced diarrhea Vaginal prolapse Renal artery stenosis Asthma Lumbar degenerative disc disease Insomnia TIA (transient ischemic attack) Hyperlipidemia, unspecified Essential hypertension Surgical History Hx of colonoscopy History of esophagogastroduodenoscopy (EGD) History of removal of cyst (~10/17/21) History of hemorrhoidectomy History of colectomy History of section History of hysterectomy History of appendectomy History of cholecystectomy Family History Family History Father Cancer Arterial thrombosis Mother Multiple sclerosis Muscular dystrophy Hypertension Depression Chronic mental illness Mental health disorder Brother No problems noted. Brother Gangrene Sister No problems noted. Son No problems noted. Son No problems noted. Son No problems noted. Son No problems noted. Daughter No problems noted. Daughter No problems noted. Daughter No problems noted. Social History Social History Household Members: None Housing: Apartment Do you presently have visiting nurse or other home services: Yes Alcohol intake: former Comment: 1:1 sitter Patient Tobacco Use Status: Former Tobacco user Tobacco use type: Cigarette Years Smoked: 22 e-Cigarette/Vaping Use: Former Use Second Hand Smoke Exposure: Yes Advance Directives: Yes Advance Directives on File: Yes Advance Directives Date on File: 08/11/23 service: No Current occupational status: disabled Current occupational exposures/hazards: No Cognitive needs: Yes (walker) Hearing needs: Yes Vision needs: Yes (Glasses) Physical Exam ED Vital Signs: Vital Signs - 24 hr 01/10/25 10:36 01/10/25 12:44 01/10/25 13:27 Temperature 97.4 F 98.0 F Pulse Rate 74 81 81 Respiratory Rate 16 16 16 Blood Pressure 153/77 H 137/67 137/67 Pulse Oximetry 98 95 95 Oxygen Delivery Method Room Air Room Air Room Air BMI result Body Mass Index 26.7 Const General: cooperative, no acute distress, alert and awake Nutritional Appearance: well nourished Orientation/consciousness: patient oriented x3 HENMT Head: Yes normal to inspection and Yes atraumatic Ears: hearing grossly normal bilaterally and external ears normal General nose exam: Normal external nose present, no nasal discharge noted and no epistaxis Face and sinus: Yes normal facial exam, No abrasion and No laceration Mouth: Normal oral and palatal mucosa present, no drooling and no muffled voice Eyes General: appearance normal, both eyes and all related structures Periorbital: periorbital findings normal Eyelids: Yes eyelids normal Conjunctivae: conjunctivae normal Pupils: Equal, round and reactive pupils present EOM: EOMs intact bilaterally Neck Neck: Yes normal visual inspection and Yes full ROM Resp Effort & Inspection: normal respiratory effort and able to speak in complete sentences Neuro General: patient oriented x3, moves all extremities and CN's II-XI intact bilaterally Cranial nerves: Yes Equal, round and reactive pupils present Cognition (Neuro): normal cognition Extrem General: Yes normal to inspection, Yes full ROM and Yes capillary refill normal Psych Appearance: grossly normal Mental Status: mental status grossly normal Affect: normal affect Attitude: cooperative Thought process: Normal thought process present Thought content: Normal thought content present Insight: Good insight present (Psych) Medical Decision Making Medical Decision Making MDM Narrative: Patient is an 89 [id number] with a past medical history of COPD/asthma, aortic stenosis, right sided pleural effusion, paroxysmal afib on anti-coags, HTN, DM w/ neuropathy, TIA, insomnia, hx of UTIs presenting with left sided rib pain after a mechanical fall 2 days ago. Patient's physical exam was as noted in the physical exam portion of this note. Patient's left rib x-ray showed an old left 10th rib fracture that is healed. Patient's CT head and c-spine was negative. I explained my physical exam findings as well as all test results to the patient. I answered all questions asked by the patient and the patient's son. I stressed the importance of the patient taking her medication as directed (either prescribed or as the over the counter packaging recommends). I stressed the importance of the patient following up with her primary care provider. I stressed the importance of the patient returning to the emergency department immediately if her symptoms were to worsen or if she were to develop any dizziness, shortness of breath, difficulty breathing, chest pain, blurry vision, loss of vision, nausea, vomiting, abdominal pain, fever, chills, back pain, or any other complaints. Patient verbalized agreement and understanding with this treatment plan and discharge. Differential Diagnosis Differential Diagnoses: The differential diagnosis associated with the presentation includes Left sided rib pain Fall Trip and fall Admission/Observation Consideration of admission/observation: Escalation of care including admission/observation considered Patient would have been admitted to the hospital had her work up had any findings where hospital admission was appropriate and her clinical presentation warranted hospital admission. Independent Interpretation I performed an independent interpretation of an: Plain X-Ray and CT Scan Interpretation: My interpretation is in agreement with the radiologist's impression of these imaging studies. EXAMINATION: XR RIBS 3 VIEWS MINIMUM WITH CHEST LEFT HISTORY: FALL COMPARISON: Comparison is made with the prior examination of the chest dated 12/28/2024. FINDINGS: A single AP view of the chest and 3 views of the left ribs are submitted. The lungs are expanded and clear. There is no pleural effusion, p neumothorax, or pulmonary vascular congestion. The heart is normal in size. The aorta is calcified. There is severe degenerative disc disease of the spine. There is an old healed fracture of the left 10th rib. XR/XR ribs LT min 3V w CXR1V IMPRESSION: Old healed fracture of the left 10th rib. No acute fracture is identified. Electronically signed by: Brandon Devries MD 01/10/2025 11:16 AM EDT Dictated By: Brandon Devries MD Signed By: Electronically signed by Brandon Devries MD 01/10/25 1116 Report Number: [id number]: Total DLP = 322.40 mGy-cm EXAMINATION: CT CERVICAL SPINE WITHOUT IV CONTRAST HISTORY: fall, head strike. TECHNIQUE: Helical CT of the cervical spine was performed per standard departmental pr otocol. Coronal and sagittal reformatted images were also evaluated. One or more of the following techniques was used for dose reduction: Automated exposure control, adjustment of the mA and/or kV according to patient size, use of iterative reconstruction technique. DLP: 322 mGy-cm COMPARISON: Comparison is made with the prior examination dated 05/06/2024. FINDINGS: CERVICAL SPINE: The vertebral bodies maintain normal height and alignment without evidence of fracture or subluxation. There is moderate degenerative disc disease at the C4-5 and C5-6 levels, with disc space narrowing and osteophyte formation. Evaluation for disc pathology is limited by lack of intrathecal contrast material, however. BRAIN: The visualized portion of the brain is unremarkable. SINUSES: The visualized paranasal sinuses, mastoid air cells and middle ear cavities are unremarkable. LUNG APICES: The visualized lung apices are clear. SOFT TISSUES: The visualized paraspinal soft tissues are unremarkable. CT/CT cervical spine wo IV con IMPRESSION: No evidence of fracture or malalignment of the cervical spine. Degenerative changes as described. Electronically signed by: Brandon Devries MD 01/10/2025 01:07 PM EDT Dictated By: Brandon Devries MD Signed By: Electronically signed by Brandon Devries MD 01/10/25 1307 Report Number: [id number]: Total DLP = 570.91 mGy-cm EXAMINATION: CT HEAD WITHOUT IV CONTRAST HISTORY: fall, head strike, on eliquis. TECHNIQUE: Unenhanced helical CT of the head was performed per standard departmental protocol. Coronal and sagittal reformats of the head were also evaluated. One or more of the following techniques was used for dose reduction: Automated exposure control, adjustment of the mA and/or kV according to patient size, use of iterative reconstruction technique. DLP: 564 mGy-cm COMPARISON: Comparison is made with the prior examination dated 08/01/2024. FINDINGS: BRAIN: There is diffuse prominence of the ventricular system and cortical sulci, consistent with atrophy. Periventricular and subcortical white matter hypodensities are noted which are nonspecific, but often seen in the setting of small vessel ischemic disease. There is no mass effect or midline shift. No intra- or extra-axial fluid collections are identified. SINUSES: The visualized paranasal sinuses are clear. The mastoid air cells and middle ear cavities are well pneumatized. ORBITS: The visualized orbits are unremarkable. BONES/SOFT TISSUES: The extracranial soft tissues are unremarkable. The calvarium is intact. No suspicious lytic or sclerotic lesions. CT/CT head/brain wo IV con IMPRESSION: No acute intracranial abnormality. Electronically signed by: Brandon Devries MD 01/10/2025 12:51 PM EDT Dictated By: Brandon Devries MD Signed By: Electronically signed by Brandon Devries MD 01/10/25 1259 Radiology Impression Discussion of test interpretation with radiology: I have reviewed the radiologist's reading. Independent Historian Clinical information obtained from an independent historian. History obtained from or confirmed by: Other (patient's son provided additional history and confirmed the history provided by the patient. ) Discharge Plan Discharge Clinical Impression: Pain in rib Fall Qualifiers: Encounter type: initial encounter Qualified Code(s): W19.XXXA - Unspecified fall, initial encounter Patient Disposition: Home, Self-Care Instructions: Fall Prevention (ED), Rib Contusion (ED) Additional Instructions: IF you are prescribed home medications and/or you are taking over the counter medications at home - it is very important you continue to do so as prescribed / directed unless told otherwise. Follow up with your primary care provider. Return to the emergency department immediately if your symptoms worsen or if you develop any numbness, tingling, dizziness, shortness of breath, difficulty breathing, chest pain, blurry vision, loss of vision, nausea, vomiting, abdominal pain, fever, chills, back pain, or any other complaints. Please see the information below about our Patient Portal. If you are not yet enrolled in the [facility] Patient Portal, you will receive an enrollment email invitation following your visit to any [facility] setting. You may also self-enroll in the Patient Portal by visiting our website: [email or web address] The following information is required to access the Patient Portal: - Your [facility] Medical Record Number - Your personal home email address (must match what is in your electronic medical record, Registration staff can assist with this) - Name - Date of Capabilities of the Patient Portal: - Message some providers - View upcoming appointments - Access your health summary, medical history, and visit history - View current conditions and allergies - View procedure and lab results - View your medications, including guidelines, side effects, and precautions - Complete pre-appointment questionnaires requested by your provider - Ready summary reports of your office visits and procedures To access the Patient Portal Mobile [employer], follow these directions: - Search [employer] in the [employer] Store or [employer] Store - Download the [employer] - Search for [facility] - Enter your login/password Prescriptions: No Action (DME) lancets [FreeStyle Lancets] 28 gauge misc See Rx Instructions .ROUTE .[employer] Qty: 100 3RF Rx Instructions: use to test sugar once a day cyanocobalamin (vitamin B-12) [Vitamin B-12] 1,000 mcg tablet 1,000 mcg PO DAILY Qty: 90 0RF ascorbic acid (vitamin C) [Vitamin C] 500 mg tablet 500 mg PO DAILY Qty: 90 1RF cholecalciferol (vitamin D3) 25 mcg (1,000 unit) capsule 25 mcg PO DAILY Qty: 90 1RF lidocaine 5 % adhesive patch,medicated 1 patch topical DAILY Qty: 90 2RF Rx Instructions: leave on most painful area for up to 12 hrs alprazolam 0.25 mg tablet 0.25 mg PO DAILY PRN (Reason: anxiety) Qty: 20 0RF (DME) incontinence pad, liner, disp Pad See Rx Instructions .Route Qty: 60 5RF Rx Instructions: As directed (DME) FreeStyle Lite Strips Strip See Rx Instructions .ROUTE .MEDSUPPLY Qty: 100 3RF Rx Instructions: As directed check the BS QD diclofenac sodium 1 % gel 1 ea topical QID Qty: 100 12RF tamsulosin 0.4 mg capsule 0.4 mg PO BEDTIME Qty: 90 0RF (DME) Adult pull ups See Rx Instructions .Route .MEDSUPPLY Qty: 300 11RF Rx Instructions: As directed zolpidem 5 mg tablet 5 mg PO BEDTIME PRN (Reason: insomnia) Qty: 30 0RF famotidine 40 mg tablet 40 mg PO BEDTIME Qty: 90 0RF digoxin 125 mcg (0.125 mg) tablet 125 mcg PO 3XW 90 Days Qty: 90 3RF atorvastatin [Lipitor] 40 mg tablet 40 mg PO BEDTIME Qty: 90 3RF Jardiance 25 mg tablet 25 mg PO DAILY Qty: 90 3RF furosemide 40 mg tablet 40 mg PO DAILY Qty: 90 0RF pregabalin 100 mg capsule 100 mg PO Q12H 31 Days Qty: 62 2RF metoprolol succinate 50 mg tablet extended release 24 hr 50 mg PO DAILY alprazolam 0.25 mg tablet 0.25 mg PO DAILY PRN (Reason: anxiety) hydroxyzine HCl 25 mg tablet 25 mg PO Q8H PRN (Reason: itching) Qty: 20 0RF nitrofurantoin monohyd/m-cryst [Macrobid] 100 mg capsule 100 mg PO Q12H 5 Days Qty: 10 0RF Rx Instructions: must administer with a meal/food prednisone 10 mg tablets,dose pack See Taper PO DAILY Qty: 30 0RF Taper: Prednisone 40 mg daily for 3 Days and 0 Hour 30 mg daily for 3 Days and 0 Hour 20 mg daily for 3 Days and 0 Hour 10 mg daily for 3 Days and 0 Hour Rx Instructions: 40 mg Daily x3 days, 30 mg daily x3 days, 20 mg daily x3 days, 10 mg daily x3 days doxycycline hyclate 100 mg tablet 100 mg PO BID Qty: 13 0RF (DME) PEDIATRIC FRONT WHEELED WALKER See Rx Instructions .Route .MEDSUPPLY Qty: 1 0RF Rx Instructions: As directed glycerin (child) Suppository 2 supp CO DAILY 30 Days Qty: 60 1RF psyllium husk [Daily Fiber] 0.4 gram capsule 0.8 g PO BEDTIME 30 Days Qty: 60 1RF nystatin 100,000 unit/gram cream 1 appl topical DAILY Qty: 30 0RF Eliquis 2.5 mg tablet 2.5 mg PO BID Qty: 180 3RF Referrals: Po,Solange Giles MD [Primary Care Provider, Internal Medicine] Interventions: ED Discharge Assessment Last Done: 01/10/25 13:27 Discharge Date/Time: 01/10/25 13:28 Print Language: Kazakh
--- NOTE | 2025-01-10 11:38 | PC.NURSE ---
Addendum entered by Anastasia Bullard RN 01/10/25 11:38: Patient is a 89 yo female with history of COPD/asthma, aortic stenosis, right sided pleural effusion, paroxysmal afib, HTN, DM w/ neuropathy, TIA, insomnia, urinary incontinence, hx UTI who presents to the ER from home after her left knee buckled and she fell. c/o left rib pain increasing with inspiration. Patient is alert and oriented. Respirations even and non-labored. Abdomen soft, non-tender with positive bowel sounds. No LE edema noted. Original Note: Medical History Diarrhea Constipation Weakness Dizziness and giddiness Weakness Yeast infection of the skin Exercise hypoxemia Acute respiratory failure with hypoxia Lipoma of lower back Urinary incontinence Cystitis Acute urinary retention Acute diverticulitis of intestine Generalized abdominal pain Diverticular disease Nausea & vomiting Failure to thrive in adult TSH elevation CHF (congestive heart failure) Atrial fibrillation with RVR Atrial fibrillation with RVR Type 2 diabetes mellitus with hyperglycemia Diabetes mellitus Asthma Hypokalemia Hypomagnesemia Hearing difficulty Dyspnea on exertion History of gastrointestinal diverticular hemorrhage COVID-19 virus infection Rectal bleeding Medicare annual wellness visit, initial Hip pain, left Patellar sleeve fracture of right knee Knee pain, right Nausea and vomiting Coarse tremors Shoulder pain, right Hospital discharge follow-up Mass on back Tinea corporis Nausea Right wrist pain Left knee pain Left hip pain Toe pain, left Breast cancer screening by mammogram
--- OUTSIDE RECORDS SUMMARY | 2025-01-10 12:08 | XMS_ITS | Encounter Summary ---
Author Organization [facility] Address [address] [place] [address] Phone Care Team Providers Care Netbackup Engineer Name Role Phone Solange Jacobs MD Primary Care Provider [phone] Reason for Referral * Physical Therapy (Routine) - Closed Specialty Diagnoses / Procedures Referred By Contac t Referred To Contact Physical Therapy Diagnoses Encounter for rehabilitation System, Provider Not In, [facility] [id number] [place] [address] Phone: tel: Referral ID Status Reason Start Date Expiration Date Visits Re quested Visits Authorized [id number] Closed 07/01/2018 06/01/2019 99 [phone] Encounter Details Date Type Department Care Team (Latest Contact Info) Description 06/10/2018 Transcribe Orders [facility] [address] [place] [phone] Solange Jacobs MD [address] [place] [phone] Encounter for rehabilitation (Primary Dx) Social History Tobacco Use Types Packs/Day Years Used Date Smoking Tobacco: Former Cigarettes 2 20 0 06/02/1977 - 06/02/1997 Smokeless Tobacco: Never Alcohol Use Standard Drinks/Week Comments No 0 (1 standard drink = 0.6 oz pur e alcohol) Comments Unknown Sex and Gender Information Value Date Recorded Sex Assigned at Female 08/26/2017 4:48 PM EDT Legal Sex Female 10:14 PM EDT Gender Identity Female 08/26/2017 4:48 PM EDT Sexual Orientation Straight 08/26/2017 4: 48 PM EDT documented as of this encounter Plan of Treatment Scheduled Referrals Name Type Priority Associated Diagnoses Orde r Schedule Ambulatory referral to [facility] Physical Therapy Outpatient Referral Routine Encounter for rehabilitation Ordered: 06/10/2018 documented as of this encounter Visit Diagnoses Diagnosis Encounter for rehabilitation- Primary documented in this encounter Additional Health Concerns Infection Onset Date Last Indicated Resolved Time MRSA Comment:Resolved per Time Based Criteria via [facility] 10/23/2013 10/23/2013 03/15/2022 2:40 PM E DT COVID-19 03/14/2022 03/14/2022 04/04/2022 1:22 AM EDT CoV-Risk Comment:Neg covid admitted for COPD 07/29/2022 07/29/202207/04 7:51 AM EST CoV-Risk Comment:Neg covid 02/04/2023 02/04/2023 02/04/2023 3:01 PM E DT CoV-Risk 03/04/2023 03/04/2023 03/15/2023 1:22 AM EDT documented as of this encounter Care Teams Netbackup Engineer Relationship Specialty Start Date End Date Solange Jacobs MD [address] [facility] [address] [place] [phone] PCP - General Internal Medicine 08/26/17 documented as of this encounter Additional Source Comments The information contained in this document represents components of the legal health record. It is not the complete legal health record.[facility]
[2025-01-10 12:44] VITALS: BP 137/67; PULSE 81; RESP 16; O2SAT 95
[2025-01-10 13:27] VITALS: BP 137/67; PULSE 81; RESP 16; TEMP 36.7; O2SAT 95
== END 2025-01-10 13:28 | disposition home or self-care (01) ==
PROVIDERS: Emergency Provider Emergency Medicine; PCP Internal Medicine
DX: S20.212A Contusion of left front wall of thorax, initial encounter (principal); I10 Essential (primary) hypertension; I48.0 Paroxysmal atrial fibrillation; J44.9 Chronic obstructive pulmonary disease, unspecified; W18.39XA Other fall on same level, initial encounter; Y93.89 Activity, other specified; Y92.098 Other place in other non-institutional residence as the place of occurrence of the external cause; Y99.8 Other external cause status; Z79.01 Long term (current) use of anticoagulants; Z91.81 History of falling; Z79.899 Other long term (current) drug therapy
CPT/HCPCS: 70450; 71101; 72125; 99284

== ENCOUNTER → 2025-01-10 11:00 | Outpatient (BNV) | payer MEDICARE, OTHER, SELFPAY | PROVIDERS: PCP Internal Medicine; Visit Provider Radiology Diagnostic Radiology | DX: Z04.3 Encounter for examination and observation following other accident (principal); S09.90XA Unspecified injury of head, initial encounter; W19.XXXA Unspecified fall, initial encounter | CPT/HCPCS: 70450; 71101; 72125 ==

== ENCOUNTER 2025-01-14 08:03 | Outpatient (REF) | payer MEDICARE, OTHER, SELFPAY ==
--- NOTE | ~2025-01-14 | XR_ITS ---
EXAMINATION: XR TOES 2 OR MORE VIEWS LEFT HISTORY: S90.122A - Contusion of left lesser toe(s) without damage to nail, initial... COMPARISON: Comparison is made with the prior examination of the left foot dated 07/06/2024. FINDINGS: Three views of the left 2nd toe are submitted. The bones are osteopenic. There is no evidence of a fracture of the 2nd toe. There has been healing of the previously seen oblique fracture of the midshaft of the 5th metatarsal. There is moderate to severe osteoarthritis of the tarsometatarsal joints. The soft tissues are unremarkable. XR/XR toe LT min 2V IMPRESSION: 1. Osteopenia No evidence of fracture of the left 2nd toe. 2. Healing fracture of the midshaft of the 5th metatarsal. 3. 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 Electronically signed by: Brandon Devries MD 01/14/2025 10:36 AM EDT
== END 2025-01-14 08:04 | disposition home or self-care (01) ==
LOC: HO.XRAY 08:03
PROVIDERS: PCP Internal Medicine; Visit Provider Nurse Practitioner Family
DX: S90.122A Contusion of left lesser toe(s) without damage to nail, initial encounter (principal); J44.1 Chronic obstructive pulmonary disease with (acute) exacerbation
CPT/HCPCS: 73660; 99212

== ENCOUNTER 2025-01-14 08:03 | Outpatient (AMB) | payer MEDICARE, OTHER, SELFPAY ==
--- OUTSIDE RECORDS SUMMARY | 2019-07-01 11:53 | XMS_ITS | Continuity of Care Document ---
Author Organization [facility] Address [address] [address] Phone Care Team Providers Care Stable Helper Name Role Phone Anton Jean Baptiste DO Unavailable Unavailable Advance Directives Directive Yes / No Effective Date File Name No Information Encounters Encounter Description Practice Location Reason(s) For Visit Diagnoses Date Provider [facility], [address] [place] [address], [id number], [place] tel:[phone] [address] [place] [address] No Information 2019 Markel Walton. [address] [place] [address], [id number], [place]. tel:[phone] Family History Family Member Type Diagnosis Age At Onset No Information Payers Payer name Insurance type Covered democrat ID Authoriza tion(s) No Information Social History Type Description Quantity Date Captured Comments Sex Female Smoking Status No Information Chief Complaint And Reason For Visit No Information History Of Present Illness Encounter Date Complaint History Of Prese nt Illness No Information Instructions Date Instruction Additional Infor mation No Information Assessments Type Assessment Date No Information
--- NOTE | 2025-01-14 08:08 | A.OFFPC_ITS ---
Vital Signs 3 01/14/25 08:09 Height 4 ft 10 in Weight 131 lb 6 oz BMI 27.5 BP 130/66 Blood Pressure Location Lt brachial Position Sitting Pulse 63 Pulse Source Pulse Oximeter Temp 97.3 F Temp Source Temporal Artery Scan Pulse Oximetry (%) 96 Oxygen Delivery Method Room Air Intake Visit Reasons: [facility] rehab 01/07 Intake Note: Patient is here for hospital discharge follow up. Patient was discharged from [facility] rehab on 01/07/25. Punchboard Filling Machine Operator Required: No Pivot End Polisher: Present Accompanied by: Son Allergies ciprofloxacin Allergy (Severe, Verified 01/14/25 08:09) unknown aspirin (Aspirin) Allergy (Unknown, Verified 01/14/25 08:09) UNKNOWN cefuroxime Allergy (Unknown, Verified 01/14/25 08:09) Unknown celecoxib (From Celebrex) Allergy (Unknown, Verified 01/14/25 08:09) UNKNOWN metformin Allergy (Unknown, Verified 01/14/25 08:09) diarrhea risedronate sodium (From Actonel) Allergy (Unknown, Verified 01/14/25 08:09) UNKNOWN Sulfa (Sulfonamide Antibiotics) Allergy (Unknown, Verified 01/14/25 08:09) unknown bupropion Adverse Reaction (Intermediate, Verified 01/14/25 08:09) tremor ferrous sulfate Adverse Reaction (Intermediate, Verified 01/14/25 08:09) tremors sertraline Adverse Reaction (Intermediate, Verified 01/14/25 08:09) tremors Medication List - Last Reconciled 01/14/25 by Pao Ruth NP [Adult pull ups As directed] alprazolam 0.25 mg PO DAILY PRN alprazolam 0.25 mg PO DAILY PRN apixaban (Eliquis) 2.5 mg PO BID ascorbic acid (vitamin C) (Vitamin C) 500 mg PO DAILY atorvastatin (Lipitor) 40 mg PO BEDTIME blood sugar diagnostic (FreeStyle Lite Strips) As directed check the BS QD cholecalciferol (vitamin D3) 25 mcg PO DAILY cyanocobalamin (vitamin B-12) (Vitamin B-12) 1,000 mcg PO DAILY diclofenac sodium 1% 1 ea topical QID digoxin 125 mcg PO 3XW 90 days empagliflozin (Jardiance) 25 mg PO DAILY famotidine 40 mg PO BEDTIME furosemide 40 mg PO DAILY glycerin (child) 2 supp MN DAILY 30 days incontinence pad, liner, disp As directed lancets (FreeStyle Lancets) use to test sugar once a day lidocaine 5% 1 patch topical DAILY metoprolol succinate ER 50 mg PO DAILY nystatin 1 appl topical DAILY [PEDIATRIC FRONT WHEELED WALKER As directed] pregabalin 100 mg PO Q12H 31 days psyllium husk (Daily Fiber) 0.8 grams (2 x 0.4 gram) PO BEDTIME 30 days tamsulosin 0.4 mg PO BEDTIME umeclidinium-vilanterol 62.5-25 mcg/actuation (Anoro Ellipta) 1 inh inhalation DAILY zolpidem 5 mg PO BEDTIME PRN Tobacco use date assessed: 01/14/25 Fall risk assessment: No Falls in past year Last assessed Fall Risk: 01/14/25 Dental Screening Dental Screen Date: 07/06/24 HPI HPI Comments 2 History of Present Illness0 Details 89 y/o Female patient who presents to [facility] clinic today for HDF. She was admitted at [facility] on 12/28 for an evaluation and treatment of UTI and Exacerbation COPD. She was Discharged to [facility] on 12/28 - 01/01 for rehab. She was again admitted to [facility] on 01/10 after she suffered a Fall at home. Pt c/o Left second Toe swelling, and pain since this morning. She is not sure how that happened - she thinks maybe she might have injured it. Patient is in the office asking for medication reconc - will have Nurses assist. [facility] Medical History (Updated 01/14/25 @ 08:45 by Poa Ruth, TIRE MOLD ENGRAVER) Contusion of second toe of left foot Diarrhea Constipation Weakness Dizziness and giddiness Weakness Yeast infection of the skin Exercise hypoxemia Acute respiratory failure with hypoxia Lipoma of lower back Urinary incontinence Cystitis Acute urinary retention Acute diverticulitis of intestine Generalized abdominal pain Diverticular disease Nausea & vomiting Failure to thrive in adult TSH elevation CHF (congestive heart failure) Atrial fibrillation with RVR Atrial fibrillation with RVR Type 2 diabetes mellitus with hyperglycemia Diabetes mellitus Asthma Hypokalemia Hypomagnesemia Hearing difficulty Dyspnea on exertion History of gastrointestinal diverticular hemorrhage COVID-19 virus infection Rectal bleeding Medicare annual wellness visit, initial Hip pain, left Patellar sleeve fracture of right knee Knee pain, right Nausea and vomiting Coarse tremors Shoulder pain, right Hospital discharge follow-up Mass on back Tinea corporis Nausea Right wrist pain Left knee pain Left hip pain Toe pain, left Breast cancer screening by mammogram UTI (urinary tract infection) Obesity (BMI 30-39.9) Urinary frequency Toe fracture, left Pancreatic cyst Osteoporosis Peptic ulcer disease Urinary incontinence Rectal incontinence GERD (gastroesophageal reflux disease) Bile salt-induced diarrhea Vaginal prolapse Renal artery stenosis Asthma Lumbar degenerative disc disease Insomnia TIA (transient ischemic attack) Hyperlipidemia, unspecified Essential hypertension Surgical History Hx of colonoscopy History of esophagogastroduodenoscopy (EGD) History of removal of cyst (~10/17/21) History of hemorrhoidectomy History of colectomy History of section History of hysterectomy History of appendectomy History of cholecystectomy Family History Father Cancer Arterial thrombosis Mother Multiple sclerosis Muscular dystrophy Hypertension Depression Chronic mental illness Mental health disorder Brother No problems noted. Brother Gangrene Sister No problems noted. Son No problems noted. Son No problems noted. Son No problems noted. Son No problems noted. Daughter No problems noted. Daughter No problems noted. Daughter No problems noted. Social History Household Members: None Housing: Apartment Do you presently have visiting nurse or other home services: Yes Alcohol intake: former Comment: 1:1 sitter Patient Tobacco Use Status: Former Tobacco user Tobacco use type: Cigarette Years Smoked: 22 e-Cigarette/Vaping Use: Former Use Second Hand Smoke Exposure: Yes Advance Directives Date on File: 08/11/23 service: No Current occupational status: disabled Current occupational exposures/hazards: No Cognitive needs: Yes (walker) Hearing needs: Yes Vision needs: Yes (Glasses) Questionnaire Thrive Questionnaire Date Thrive assessed: 10/05/24 I am a: Patient What is your living situation today?: I have a steady place to live Within the past 12 months, did the food you bought not last and you didn't have the money to get more?: Sometimes True Within the past 12 months, did you worry whether your food would run out before you got money to buy more?: Sometimes True Do you have trouble paying for medicines?: Yes Do you have trouble getting transportation to medical appointments?: Yes Do you have trouble paying your heating and electricity bill?: No Do you have trouble taking care of your child, family member or friend?: No Do you have trouble with day-to-day activities such as bathing, preparing meals, shopping, managing finances, etc.?: No Are you currently unemployed and looking for a job?: No Are you interested in more education?: No Please select the resources that you would like help with: None Currently or been in a relationship where the following occur: No concerns reported THRIVE Score: 3 MERY-7 AMB Questionnaire MERY-7 Date MERY - 7 assessed: 07/06/24 Source: Developed by Drs. Brandon Villeda, Vijaya Damon, Jaydon Easley and colleagues, with an educational phi from [employer]. Review of Systems Const All systems reviewed & are unremarkable except as noted in HPI and below Physical exam (Primary Care) Vital Signs: Last Vital Signs Temp 97.3 F 01/14/25 08:09 Pulse 63 01/14/25 08:09 BP 130/66 01/14/25 08:09 Pulse Ox 96 01/14/25 08:09 Oxygen Delivery Method Room Air 01/14/25 08:09 BMI result Body Mass Index 27.5 Tobacco/Smoking Status: Tobacco use Status Tobacco use date assessed 01/14/25 01/14/25 08:19 Patient Tobacco Use Status Former Tobacco user 01/14/25 08:19 Tobacco use type Cigarette 01/14/25 08:19 e-Cigarette/Vaping Use Former Use 01/14/25 08:19 Thrive Assessment: Date of Thrive Assessment Date Thrive assessed 10/05/24 01/14/25 08:19 Currently or been in a relationship where the following occur: No concerns reported Const General: no acute distress Nutritional Appearance: obese Orientation/consciousness: patient oriented x3 Resp Effort & Inspection: normal respiratory effort Auscultation: clear to auscultation bilaterally Cardio Heart sounds: S1 normal heart sound present and S2 normal heart sound present Neuro General: patient oriented x3, gait normal and moves all extremities Extrem Left lower extremity: foot Details: tenderness and warmth Ankle/foot/toe images: 2 1. Left second Toe swollen, red and TTP. Coding Level of Care Code Est Pt Level 4 (50646) Diagnoses COPD exacerbation J44.1 Contusion of second toe of left foot S90.122A Time Spent (min) 20 Assessment & Plan Assessment & Plan (1) COPD exacerbation: Code(s): J44.1 - Chronic obstructive pulmonary disease with (acute) exacerbation Category: Medical Plan: Stable. Continue on current regiment. (2) Contusion of second toe of left foot: Code(s): S90.122A - Contusion of left lesser toe(s) without damage to nail, initial encounter Category: Medical Plan: Ordered Xray of Foot. Orders: Orders 2 XR toe LT min 2V Today S90.122A - Contusion of left lesser toe(s) without damage to nail, initial encounter Medications: Discontinued 2 hydroxyzine HCl Discontinued Reason: Patient Completed Course 25 mg PO Q8H PRN 20 tabs 0RF itching
--- OUTSIDE RECORDS SUMMARY | 2025-01-14 08:08 | XMS_ITS | Encounter Summary ---
Author Organization [facility] Address [address] [place] [address] Phone Care Team Providers Care Assault Amphibious Vehicle Crewman Name Role Phone Solange Jacobs MD Primary Care Provider Reason for Referral * Physical Therapy (Routine) - Closed Specialty Diagnoses / Procedures Referred By Contac t Referred To Contact Physical Therapy Diagnoses Encounter for rehabilitation System, Provider Not In, [facility] [phone] [place] [phone] Phone: tel: Referral ID Status Reason Start Date Expiration Date Visits Re quested Visits Authorized [id number] Closed 07/01/2018 06/01/2019 99 [phone] Encounter Details Date Type Department Care Team (Latest Contact Info) Description 06/10/2018 Transcribe Orders [facility] [address] [place] [phone] Solange Jacobs MD [address] [place] [phone] Encounter for rehabilitation (Primary Dx) Social [...] Diagnoses Orde r Schedule Ambulatory referral to [facility] Physical Therapy Outpatient Referral Routine Encounter for [...] documented as of this encounter Care Teams Assault Amphibious Vehicle Crewman Relationship Specialty Start Date End Date Solange Jacobs MD [address] [facility] [address] [place] [phone] PCP - General Internal Medicine 08/26/17 documented as of this encounter Additional Source Comments The information contained in this document represents components of the legal health record. It is not the complete legal health record.[facility]
[2025-01-14 08:09] VITALS: BP 130/66; PULSE 63; TEMP 36.3; O2SAT 96; BMI 27.5
== END 2025-01-14 08:55 | disposition home or self-care (01) ==
LOC: HO.HMCH 08:04
PROVIDERS: PCP Internal Medicine; Visit Provider Nurse Practitioner Family
DX: J44.1 Chronic obstructive pulmonary disease with (acute) exacerbation (principal); S90.122A Contusion of left lesser toe(s) without damage to nail, initial encounter

== ENCOUNTER → 2025-01-14 10:01 | Outpatient (BNV) | payer MEDICARE, OTHER, SELFPAY | PROVIDERS: PCP Internal Medicine; Visit Provider Radiology Diagnostic Radiology | DX: M19.072 Primary osteoarthritis, left ankle and foot (principal) | CPT/HCPCS: 73660 ==

== ENCOUNTER 2025-01-24 11:24 | Outpatient (AMB) | payer MEDICARE, OTHER, SELFPAY ==
--- OUTSIDE RECORDS SUMMARY | 2019-07-01 11:53 | XMS_ITS | Continuity of Care Document ---
Author Organization [facility] Address [address] [address] Phone Care Team Providers Care Processing Operator Name Role Phone Anton Jean Baptiste DO Unavailable Unavailable Advance Directives Directive Yes / No Effective Date File Name No Information Encounters Encounter Description Practice Location Reason(s) For Visit Diagnoses Date Provider [facility], [address] [place] [address], [id number], [place] tel:[phone] [address] [place] [address] No Information 2019 Markel Walton. [address] [place] [address], [id number], [place]. tel:[phone] Family History Family Member Type Diagnosis Age [...]
--- NOTE | 2025-01-24 11:36 | MHC.OFFVIS ---
Intake Visit Reasons: 6m/PVR Intake Note: Patient presents today for 6m follow up/PVR Urology Medications: Tamsulosin, Vitamin B12 Blood Thinner: Apixaban PVR:13ml Cardiovascular Or Nurse Required: No Accompanied by: Unknown Allergies ciprofloxacin Allergy (Severe, Verified 01/24/25 12:06) unknown aspirin (Aspirin) Allergy (Unknown, Verified 01/24/25 12:06) UNKNOWN cefuroxime Allergy (Unknown, Verified 01/24/25 12:06) Unknown celecoxib (From Celebrex) Allergy (Unknown, Verified 01/24/25 12:06) UNKNOWN metformin Allergy (Unknown, Verified 01/24/25 12:06) diarrhea risedronate sodium (From Actonel) Allergy (Unknown, Verified 01/24/25 12:06) UNKNOWN Sulfa (Sulfonamide Antibiotics) Allergy (Unknown, Verified 01/24/25 12:06) unknown bupropion Adverse Reaction (Intermediate, Verified 01/24/25 12:06) tremor ferrous sulfate Adverse Reaction (Intermediate, Verified 01/24/25 12:06) tremors sertraline Adverse Reaction (Intermediate, Verified 01/24/25 12:06) tremors Medication List - Last Reconciled 01/24/25 by ASHWINI RoeBC [Adult pull ups As directed] alprazolam 0.25 mg PO DAILY PRN alprazolam 0.25 mg PO DAILY PRN apixaban (Eliquis) 2.5 mg PO BID ascorbic acid (vitamin C) (Vitamin C) 500 mg PO DAILY atorvastatin (Lipitor) 40 mg PO BEDTIME blood sugar diagnostic (FreeStyle Lite Strips) As directed check the BS QD cholecalciferol (vitamin D3) 25 mcg PO DAILY clotrimazole 1% 1 appl topical BID 4 weeks cyanocobalamin (vitamin B-12) (Vitamin B-12) 1,000 mcg PO DAILY diclofenac sodium 1% 1 ea topical QID digoxin 125 mcg PO 3XW 90 days doxycycline hyclate 100 mg PO BID empagliflozin (Jardiance) 25 mg PO DAILY famotidine 40 mg PO BEDTIME furosemide 40 mg PO DAILY glycerin (child) 2 supp NM DAILY 30 days incontinence pad, liner, disp As directed lancets (FreeStyle Lancets) use to test sugar once a day lidocaine 5% 1 patch topical DAILY metoprolol succinate ER 50 mg PO DAILY nystatin 1 appl topical DAILY [PEDIATRIC FRONT WHEELED WALKER As directed] pregabalin 100 mg PO Q12H 31 days psyllium husk (Daily Fiber) 0.8 grams (2 x 0.4 gram) PO BEDTIME 30 days tamsulosin 0.4 mg PO BEDTIME umeclidinium-vilanterol 62.5-25 mcg/actuation (Anoro Ellipta) 1 inh inhalation DAILY zolpidem 5 mg PO BEDTIME PRN HPI Comments Details: Zuleyma Lovell is an 89-year-old female patient of Dr. Jacobs who was accompanied by her neighbor Yen at today's office visit. She has a past medical history of type 2 diabetes, asthma, hearing impairment, tremors, osteoporosis, pancreatic cyst, peptic ulcer disease, fecal and urinary incontinence, GERD, lumbar degenerative disc disease, insomnia, TIA, hyperlipidemia, and hypertension. She presents to the office today for follow-up of her urinary retention. In discussion with the patient today she reports having seeked emergency room care and has recently been discharged from [facility] for ongoing issue she has been experiencing with her breathing as well as a fall she experienced at home. In review of patient's chart it appears there was question of a urinary tract infection however urinalysis noted 2+ leukocytes negative nitrates and urine culture 12/24 Mixed bacterial aidee characteristic of urogenital contamination. She denies having had any UTI like symptoms. She does report noting episodes of mixed incontinence and feels incontinence worsens after taking her furosemide. She does report compliance with Flomax as prescribed. In office urinalysis results reviewed with the patient today 3+ glucosuria otherwise within normal limits. PVR 13 mL. She denies hematuria, dysuria, foul smelling urine, changes to urinary stream, flank pain, fever, and or chills. Previous CT 02/23 notes bilateral kidneys are normal in size, shape, and attenuation. No hydronephrosis hydroureter, or calculi seen. No perinephric stranding. In numeral bilateral renal cysts are again seen which require no additional follow-up per radiology report. The bladder is partially decompressed by a Patel catheter. Patient with a previous episode of urinary retention requiring Patel catheter however this episode was in 2023 and she has since been voiding independently with low PVRs. We did discussed potential causes of mixed urinary incontinence as well as further treatment options. She discusses continuing to follow-up with GI regarding her pancreatitis cysts as well as heartburn and indigestion she continues to experience. She currently denies any bothersome urinary issues. She otherwise offers no other issues or concerns at this time. [facility] Medical History Contusion of second toe of left foot Diarrhea Constipation Weakness Dizziness and giddiness Weakness Yeast infection of the skin Exercise hypoxemia Acute respiratory failure with hypoxia Lipoma of lower back Urinary incontinence Cystitis Acute urinary retention Acute diverticulitis of intestine Generalized abdominal pain Diverticular disease Nausea & vomiting Failure to thrive in adult TSH elevation CHF (congestive heart failure) Atrial fibrillation with RVR Atrial fibrillation with RVR Type 2 diabetes mellitus with hyperglycemia Diabetes mellitus Asthma Hypokalemia Hypomagnesemia Hearing difficulty Dyspnea on exertion History of gastrointestinal diverticular hemorrhage COVID-19 virus infection Rectal bleeding Medicare annual wellness visit, initial Hip pain, left Patellar sleeve fracture of right knee Knee pain, right Nausea and vomiting Coarse tremors Shoulder pain, right Hospital discharge follow-up Mass on back Tinea corporis Nausea Right wrist pain Left knee pain Left hip pain Toe pain, left Breast cancer screening by mammogram UTI (urinary tract infection) Obesity (BMI 30-39.9) Urinary frequency Toe fracture, left Pancreatic cyst Osteoporosis Peptic ulcer disease Urinary incontinence Rectal incontinence GERD (gastroesophageal reflux disease) Bile salt-induced diarrhea Vaginal prolapse Renal artery stenosis Asthma Lumbar degenerative disc disease Insomnia TIA (transient ischemic attack) Hyperlipidemia, unspecified Essential hypertension Surgical History Hx of colonoscopy History of esophagogastroduodenoscopy (EGD) History of removal of cyst (~10/17/21) History of hemorrhoidectomy History of colectomy History of section History of hysterectomy History of appendectomy History of cholecystectomy Family History Father Cancer Arterial thrombosis Mother Multiple sclerosis Muscular dystrophy Hypertension Depression Chronic mental illness Mental health disorder Brother No problems noted. Brother Gangrene Sister No problems noted. Son No problems noted. Son No problems noted. Son No problems noted. Son No problems noted. Daughter No problems noted. Daughter No problems noted. Daughter No problems noted. Social History Household Members: None Housing: Apartment Do you presently have visiting nurse or other home services: Yes Alcohol intake: former Comment: 1:1 sitter Patient Tobacco Use Status: Former Tobacco user Tobacco use type: Cigarette Years Smoked: 22 e-Cigarette/Vaping Use: Former Use Second Hand Smoke Exposure: Yes Advance Directives Date on File: 08/11/23 service: No Current occupational status: disabled Current occupational exposures/hazards: No Cognitive needs: Yes (walker) Hearing needs: Yes Vision needs: Yes (Glasses) Review of Systems Eyes Reports no additional complaints ENT Reports no additional complaints Card Reports as per [facility] Resp Reports as per [facility] GI Reports as per HPI Reports as per [facility] Musc Reports as per [facility] Neuro Reports as per HPI Psych Reports no additional complaints Endo Reports as per HPI Physical Exam Const General: cooperative, healthy appearing, comfortable, no acute distress, well developed, alert and awake Orientation/consciousness: patient oriented x3 Limitations: ambulation with walker HEENT Head: Yes normal to inspection, Yes normocephalic and Yes atraumatic Ears: hearing grossly normal bilaterally Eyes General: appearance normal, both eyes and all related structures Neck Neck: Yes normal visual inspection and Yes trachea midline Chest Chest palpation & inspection: normal inspection of the chest Resp Effort & Inspection: normal respiratory effort and able to speak in complete sentences Cardio Rate: regular rate GI Inspection: Yes normal to inspection General: Yes no CVA tenderness Back/Spine/Pelvis Back: no CVA tenderness Skin General skin exam: no rashes or lesions noted Neuro General: patient oriented x3 Extrem General: Yes normal to inspection Psych Appearance: grossly normal and well kempt Mental Status: mental status grossly normal Speech and movement: Normal speech and movement present and Clear speech present Affect: normal affect Attitude: cooperative Thought process: Normal thought process present Thought content: Normal thought content present Insight: Fair insight present (Psych) Judgement: Fair judgement present (Psych) Office Procedures Post Void Residual Post Residual Void Post Void Residual (PVR): 13 84212-Rump Void Residual by ultrasound Results AMB Urinalysis, Automated UA Leukoctes 0 Didi/uL Last Edit by EVER Arizmendi on 01/24/25 11:46 UA Nitrite Negative Last Edit by EVER Arizmendi on 01/24/25 11:46 UA Urobilinogen 0.2 mg/dL Last Edit by EVER Arizmendi on 01/24/25 11:46 UA Protein 0 mg/dL Last Edit by Elisa Lopez [facility] on 01/24/25 11:46 UA pH 7.0 Last Edit by Elisa Lopez [facility] on 01/24/25 11:46 UA Blood 0 Jose Maria/uL Last Edit by Elisa Lopez [facility] on 01/24/25 11:46 UA Specific [place] 1.010 Last Edit by Elisa Lopez [facility] on 01/24/25 11:46 UA Ketone Negative Last Edit by Elisa Lopez [facility] on 01/24/25 11:46 UA Bilirubin 0 mg/dL Last Edit by Elisa Lopez [facility] on 01/24/25 11:46 UA Glucose 1000 mg/dL Last Edit by Elisa Lopez [facility] on 01/24/25 11:46 Results Reviewed Results Reviewed: Laboratory Last Values Urine pH (Auto) 7.0 01/24/25 11:44 Specific [place] (Auto) 1.010 01/24/25 11:44 Urine Protein (Auto) 0 mg/dL 01/24/25 11:44 Glucose (UA)(Auto) 1000 mg/dL 01/24/25 11:44 Urine Ketones (Auto) Negative 01/24/25 11:44 Urine Blood (Auto) 0 Jose Maria/uL 01/24/25 11:44 Urine Nitrite (Auto) Negative 01/24/25 11:44 Urine Bilirubin (Auto) 0 mg/dL 01/24/25 11:44 Urine Urobilinogen (Auto) 0.2 mg/dL 01/24/25 11:44 Leukocyte Esterase (Auto) 0 Didi/uL 01/24/25 11:44 Assessment & Plan Assessment & Plan (1) Urinary incontinence, mixed: Code(s): N39.46 - Mixed incontinence Category: Medical (2) Urinary retention: Code(s): R33.9 - Retention of urine, unspecified Category: Medical Plan In office urinalysis results reviewed with the patient today; as noted above. PVR 13 mL. She currently denies any UTI like symptoms. Continue Flomax as discussed and prescribed; refill provided. Will continue with surveillance monitoring. Will obtain renal ultrasound in 6 months. Discussed UTI prevention with D mannose supplement, vitamin-C, increasing fluid intake, behavioral therapy with timed voiding, perineal hygiene and postcoital voiding, and management of constipation with stool softeners and increased fiber intake. Follow-up in 6 months with imaging and PVR; or sooner with any issues, concerns, and or questions. Orders: Orders AMB Urinalysis Automated Today Z13.9 - Encounter for screening, unspecified US renal BI 6 Months N20.0 - Calculus of kidney Medications: Changed From tamsulosin 0.4 mg PO BEDTIME 90 caps 0RF To tamsulosin 0.4 mg PO BEDTIME 90 days 90 caps 3RF Refilled tamsulosin 0.4 mg PO BEDTIME 90 caps 3RF 90 days Patient Instructions: The patient had an opportunity to ask questions regarding the treatment plan. All questions were answered. Physical exam, labs, and imaging were discussed and reviewed in detail. As well as risks, benefits, and discussion of treatment choices. No major barriers to understanding were identified. The patient expressed understanding and agreement with the above treatment plan. The patient was made aware they should contact our office by phone for worsening of their current condition, the appearance of new symptoms, or with any questions or concerns. Compliance is encouraged with any medications and follow up testing that is ordered. It is a privilege to be allowed the opportunity to participate in? your urological care.? Again, if you have any questions or concerns If you have any questions or concerns please do not hesitate to contact me. The office is [phone]. This note is constructed using voice recognition software. While every effort has been made to ensure accuracy vp corporate development errors may have been included. Yours sincerely, MITA Roe Coding Level of Care Code Est Pt Level 3 (40866) Complex EM visit Add On G2211 Diagnoses Urinary incontinence, mixed N39.46 Urinary retention R33.9 CPT Codes Post Residual Void - PVR CPT Code: 13756-Lpyz Void Residual by ultrasound ([id number])
--- OUTSIDE RECORDS SUMMARY | 2025-01-24 12:56 | XMS_ITS | Encounter Summary ---
Author Organization [facility] Address [address] [place] [address] Phone Care Team Providers Care Tongue Binder Name Role Phone Solange Jacobs MD Primary Care Provider [phone] Reason for Referral * Physical Therapy (Routine) - Closed Specialty Diagnoses / Procedures Referred By Contac t Referred To Contact Physical Therapy Diagnoses Encounter for rehabilitation System, Provider Not In, [facility] [id number] [place] [id number] Phone: tel: Referral ID Status Reason Start Date Expiration Date Visits Re quested Visits Authorized [id number] Closed 07/01/2018 06/01/2019 99 [phone] Encounter Details Date Type Department Care Team (Latest Contact Info) Description 06/10/2018 Transcribe Orders [facility] [address] [place] [id number] Solange Jacobs MD [address] [place] [phone] Encounter for rehabilitation (Primary Dx) Social [...] Diagnoses Orde r Schedule Ambulatory referral to [facility] Physical Therapy Outpatient Referral Routine [...] documented as of this encounter Care Teams Tongue Binder Relationship Specialty Start Date End Date Solange Jacobs MD [facility] [address] [place] [phone] PCP - General Internal Medicine 08/26/17 documented as of this encounter Additional Source Comments The information contained in this document represents components of the legal health record. It is not the complete legal health record.[facility]
== END 2025-01-24 12:11 | disposition home or self-care (01) ==
LOC: HO.HUSH 11:25
PROVIDERS: PCP Internal Medicine; Visit Provider Nurse Practitioner Family
DX: N39.46 Mixed incontinence (principal); R33.9 Retention of urine, unspecified; Z13.9 Encounter for screening, unspecified
CPT/HCPCS: 99213; G2211

== ENCOUNTER → 2025-01-24 11:24 | Outpatient (BNVA) | payer MEDICARE, OTHER, SELFPAY | PROVIDERS: PCP Internal Medicine; Visit Provider Nurse Practitioner Family | DX: N39.46 Mixed incontinence (principal); R33.9 Retention of urine, unspecified | CPT/HCPCS: 51798; 81003; 99212 ==

== ENCOUNTER 2025-02-02 09:52 | Outpatient (AMB) | payer MEDICARE, OTHER, SELFPAY ==
--- NOTE | 2025-02-02 10:09 | MHC.PC.OV ---
Vital Signs 02/02/25 10:10 Height 4 ft 10 in Weight 130 lb 6 oz BMI 27.2 BP 160/78 H Blood Pressure Location Lt brachial Position Sitting Pulse 73 Pulse Source Pulse Oximeter Temp 97.1 F Temp Source Temporal Artery Scan Pulse Oximetry (%) 95 Oxygen Delivery Method Room Air Intake Visit Reasons: f/u DM Intake Note: Patient is here to follow up on DM. 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 [employer] Operations Specialist: Present Accompanied by: Friend Allergies ciprofloxacin Allergy (Severe, Verified 02/02/25 10:10) unknown aspirin (Aspirin) Allergy (Unknown, Verified 02/02/25 10:10) UNKNOWN cefuroxime Allergy (Unknown, Verified 02/02/25 10:10) Unknown celecoxib (From Celebrex) Allergy (Unknown, Verified 02/02/25 10:10) UNKNOWN metformin Allergy (Unknown, Verified 02/02/25 10:10) diarrhea risedronate sodium (From Actonel) Allergy (Unknown, Verified 02/02/25 10:10) UNKNOWN Sulfa (Sulfonamide Antibiotics) Allergy (Unknown, Verified 02/02/25 10:10) unknown bupropion Adverse Reaction (Intermediate, Verified 02/02/25 10:10) tremor ferrous sulfate Adverse Reaction (Intermediate, Verified 02/02/25 10:10) tremors sertraline Adverse Reaction (Intermediate, Verified 02/02/25 10:10) tremors Medication List - Last Reconciled 02/02/25 by Solange Jacobs MD [Adult pull ups As directed] alprazolam 0.25 mg PO DAILY PRN apixaban (Eliquis) 2.5 mg PO BID ascorbic acid (vitamin C) (Vitamin C) 500 mg PO DAILY atorvastatin (Lipitor) 40 mg PO BEDTIME blood sugar diagnostic (FreeStyle Lite Strips) As directed check the BS QD cholecalciferol (vitamin D3) 25 mcg PO DAILY clotrimazole 1% 1 appl topical BID 4 weeks cyanocobalamin (vitamin B-12) (Vitamin B-12) 1,000 mcg PO DAILY diclofenac sodium 1% 1 ea topical QID digoxin 125 mcg PO 3XW 90 days empagliflozin (Jardiance) 25 mg PO DAILY famotidine 40 mg PO BEDTIME furosemide 40 mg PO DAILY glycerin (child) 2 supp OR DAILY 30 days incontinence pad, liner, disp As directed lancets (FreeStyle Lancets) use to test sugar once a day lidocaine 5% 1 patch topical DAILY metoprolol succinate ER 50 mg PO DAILY nystatin 1 appl topical DAILY [PEDIATRIC FRONT WHEELED WALKER As directed] pregabalin 100 mg PO Q12H 31 days psyllium husk (Daily Fiber) 0.8 grams (2 x 0.4 gram) PO BEDTIME 30 days sitagliptin phosphate (Januvia) 100 mg PO DAILY tamsulosin 0.4 mg PO BEDTIME 90 days umeclidinium-vilanterol 62.5-25 mcg/actuation (Anoro Ellipta) 1 inh inhalation DAILY zolpidem 5 mg PO BEDTIME PRN Tobacco use date assessed: 02/02/25 Fall risk assessment: No Falls in past year Last assessed Fall Risk: 02/02/25 Dental Screening Dental Screen Date: 07/06/24 [facility] Medical History Contusion of second toe of left foot Diarrhea Constipation Weakness Dizziness and giddiness Weakness Yeast infection of the skin Exercise hypoxemia Acute respiratory failure with hypoxia Lipoma of lower back Urinary incontinence Cystitis Acute urinary retention Acute diverticulitis of intestine Generalized abdominal pain Diverticular disease Nausea & vomiting Failure to thrive in adult TSH elevation CHF (congestive heart failure) Atrial fibrillation with RVR Atrial fibrillation with RVR Type 2 diabetes mellitus with hyperglycemia Diabetes mellitus Asthma Hypokalemia Hypomagnesemia Hearing difficulty Dyspnea on exertion History of gastrointestinal diverticular hemorrhage COVID-19 virus infection Rectal bleeding Medicare annual wellness visit, initial Hip pain, left Patellar sleeve fracture of right knee Knee pain, right Nausea and vomiting Coarse tremors Shoulder pain, right Hospital discharge follow-up Mass on back Tinea corporis Nausea Right wrist pain Left knee pain Left hip pain Toe pain, left Breast cancer screening by mammogram UTI (urinary tract infection) Obesity (BMI 30-39.9) Urinary frequency Toe fracture, left Pancreatic cyst Osteoporosis Peptic ulcer disease Urinary incontinence Rectal incontinence GERD (gastroesophageal reflux disease) Bile salt-induced diarrhea Vaginal prolapse Renal artery stenosis Asthma Lumbar degenerative disc disease Insomnia TIA (transient ischemic attack) Hyperlipidemia, unspecified Essential hypertension Surgical History Hx of colonoscopy History of esophagogastroduodenoscopy (EGD) History of removal of cyst (~10/17/21) History of hemorrhoidectomy History of colectomy History of section History of hysterectomy History of appendectomy History of cholecystectomy Family History Father Cancer Arterial thrombosis Mother Multiple sclerosis Muscular dystrophy Hypertension Depression Chronic mental illness Mental health disorder Brother No problems noted. Brother Gangrene Sister No problems noted. Son No problems noted. Son No problems noted. Son No problems noted. Son No problems noted. Daughter No problems noted. Daughter No problems noted. Daughter No problems noted. Social History Household Members: None Housing: Apartment Do you presently have visiting nurse or other home services: Yes Alcohol intake: former Comment: 1:1 sitter Patient Tobacco Use Status: Former Tobacco user Tobacco use type: Cigarette Years Smoked: 22 e-Cigarette/Vaping Use: Former Use Second Hand Smoke Exposure: Yes Advance Directives Date on File: 08/11/23 service: No Current occupational status: disabled Current occupational exposures/hazards: No Cognitive needs: Yes (walker) Hearing needs: Yes Vision needs: Yes (Glasses) Questionnaire Thrive Questionnaire Date Thrive assessed: 10/05/24 I am a: Patient What is your living situation today?: I have a steady place to live Within the past 12 months, did the food you bought not last and you didn't have the money to get more?: Sometimes True Within the past 12 months, did you worry whether your food would run out before you got money to buy more?: Sometimes True Do you have trouble paying for medicines?: Yes Do you have trouble getting transportation to medical appointments?: Yes Do you have trouble paying your heating and electricity bill?: No Do you have trouble taking care of your child, family member or friend?: No Do you have trouble with day-to-day activities such as bathing, preparing meals, shopping, managing finances, etc.?: No Are you currently unemployed and looking for a job?: No Are you interested in more education?: No Please select the resources that you would like help with: None Currently or been in a relationship where the following occur: No concerns reported THRIVE Score: 3 MERY-7 AMB Questionnaire MERY-7 Date MERY - 7 assessed: 07/06/24 Source: Developed by Drs. Brandon Villeda, Vijaya Damon, Jaydon Easley and colleagues, with an educational phi from [employer]. Physical exam (Primary Care) Vital Signs: Last Vital Signs Temp 97.1 F 02/02/25 10:10 Pulse 73 02/02/25 10:10 BP 160/78 H 02/02/25 10:10 Pulse Ox 95 02/02/25 10:10 Oxygen Delivery Method Room Air 02/02/25 10:10 BMI result Body Mass Index 27.2 Tobacco/Smoking Status: Tobacco use Status Tobacco use date assessed 02/02/25 02/02/25 10:19 Patient Tobacco Use Status Former Tobacco user 02/02/25 10:19 Tobacco use type Cigarette 02/02/25 10:19 e-Cigarette/Vaping Use Former Use 02/02/25 10:19 Thrive Assessment: Date of Thrive Assessment Date Thrive assessed 10/05/24 02/02/25 10:19 Currently or been in a relationship where the following occur: No concerns reported Const General: alert; No acute distress Eyes Conjunctivae: conjunctivae normal Resp Auscultation: clear to auscultation bilaterally Cardio Rate: regular rate Rhythm: regular rhythm GI Inspection: Yes normal to inspection Extrem General: Yes normal to inspection and No edema Results AMB Hemoglobin A1c AMB Hemoglobin A1c 7.5 % Last Edit by AUSTIN Colon on 02/02/25 10:25 Results Reviewed Results Reviewed: Laboratory Last Values Hgb A1c (Clinic) 7.5 % (4.0-6.0) H 02/02/25 10:09 Coding Level of Care Code Est Pt Level 4 (47577) Complex EM visit Add On G2211 Diagnoses Type 2 diabetes mellitus with hyperglycemia, without long-term current use of insulin E11.65 Diabetes mellitus terminal gauger insulin use: without terminal gauger use Hyperlipidemia, unspecified hyperlipidemia type E78.5 Hyperlipidemia type: unspecified Carotid artery disease I77.9 Paroxysmal atrial fibrillation I48.0 Essential hypertension I10 Gastroesophageal reflux disease without esophagitis K21.9 Esophagitis presence: without esophagitis Urinary incontinence, mixed N39.46 Asthma J45.909 Generalized anxiety disorder F41.1 Assessment & Plan Assessment & Plan (1) Type 2 diabetes mellitus with hyperglycemia: Code(s): E11.65 - Type 2 diabetes mellitus with hyperglycemia Category: Medical Qualifiers: Diabetes mellitus terminal gauger insulin use: without terminal gauger use Qualified Code(s): E11.65 - Type 2 diabetes mellitus with hyperglycemia Plan: Decrease the amount of carbohydrate intake, pasta, bread, rice and potatoes are all sugar and that is aside from all the sweet stuff, remember that fruits are good but they are Sweet also. Hemoglobin A1c goal of less than 7.0. Patient is on Jardiance 25 mg once a day only (2) Hyperlipidemia, unspecified: Code(s): E78.5 - Hyperlipidemia, unspecified Category: Medical Qualifiers: Hyperlipidemia type: unspecified Qualified Code(s): E78.5 - Hyperlipidemia, unspecified Plan: Avoid fried foods, chicken skin, eggs, butter margarine, pastries and meat. Be it pork or beef they have a lot of cholesterol LDL goal of less than 70 and triglyceride of less than 150 patient is on atorvastatin 40 mg once a day October 2024 last blood work (3) Carotid artery disease: Comment: mild to moderate 04/2021 Code(s): I77.9 - Disorder of arteries and arterioles, unspecified Category: Medical Plan: Control the cholesterol, weight, blood pressure, diabetes on Eliquis coagulation (4) Paroxysmal atrial fibrillation: Code(s): I48.0 - Paroxysmal atrial fibrillation Category: Medical Plan: Continue with anticoagulation with Eliquis (5) Essential hypertension: Code(s): I10 - Essential (primary) hypertension Category: Medical Plan: Continue with blood pressure medication. Decrease salt intake and exercise on metoprolol 50 mg once a day (6) GERD (gastroesophageal reflux disease): Code(s): K21.9 - Gastro-esophageal reflux disease without esophagitis Category: Medical Qualifiers: Esophagitis presence: without esophagitis Qualified Code(s): K21.9 - Gastro-esophageal reflux disease without esophagitis Plan: Avoid the foods that causes that usually spicy foods, tomato products, juices, coffee, soda and foods that your sensitive to. After eating do not lie down, allow 3-4 hours before in lie down. And keep the head of bed above 30 degrees to avoid the acid from going up. (7) Urinary incontinence, mixed: Code(s): N39.46 - Mixed incontinence Category: Medical Plan: Patient follows up with urology on surveillance placed on Flomax (8) Asthma: Code(s): J45.909 - Unspecified asthma, uncomplicated Category: Medical Plan: Stable on Anoro Ellipta (9) Generalized anxiety disorder: Code(s): F41.1 - Generalized anxiety disorder Category: Medical Plan: Continue with present therapy Plan History of Present Illness The patient is an 89-year-old female presenting for a follow-up visit. She has a history of hypertension, hypercholesterolemia, and gastroesophageal reflux disease (GERD). Her osteoporosis was last evaluated with a bone density scan in December 2020. The patient also has generalized anxiety disorder and lumbar degenerative disc disease. She is known to have carotid artery disease and asthma. Her cardiac history includes atrial fibrillation and congestive heart failure. She is also diagnosed with diabetes mellitus and dementia. The patient follows up with urology for urinary incontinence and is on Flomax. She continues surveillance with ultrasound of the bladder and kidneys. In December, she was in the ER for a fall, resulting in a contusion of the second left toe and a healing fracture of the fifth metatarsal. X-rays revealed moderate to severe osteoarthritis and osteopenia. In November, she visited the ER for a urinary tract infection and saw gastroenterology for rectal incontinence, likely due to overflow diarrhea. She was advised to avoid constipation and was prescribed fiber, MiraLAX, and timed rectal evacuation. Her blood work in October showed normal electrolytes, a blood sugar of 177, and a mildly elevated thyroid test at 5.11. Her hemoglobin A1c was 7.8, and urine had 3+ glucose. The patient is on Jardiance for diabetes management, with a goal A1c of less than 7.0. She is also on atorvastatin for cholesterol management, with an LDL goal of less than 70. For atrial fibrillation, she is on Eliquis for anticoagulation. Her blood pressure is managed with metoprolol. The patient reports a painful knee, especially at night, and has run out of her prescribed cream, resorting to [id number] options. She is concerned about the cost of Jardiance and has been advised to maintain a healthy diet to manage her diabetes better. Health Maintenance - Bone density scan last performed in December 2020 - Surveillance with ultrasound of the bladder and kidneys - Blood work in October showed normal electrolytes, mildly elevated thyroid test, and hemoglobin A1c of 7.8 - LDL goal of less than 70 for cholesterol management - A1c goal of less than 7.0 for diabetes management Social History - Nutritional intake: Reports eating cake and cheese curls occasionally, advised to maintain a healthy diet - Water intake: Drinks at least half a gallon of water daily Review of Systems - Musculoskeletal: Reports knee pain, especially at night - Endocrine: Reports high blood sugar levels - Cardiovascular: Denies chest pain Physical Exam - Cardiovascular: Pulses are good Results - Labs: Blood sugar 177, hemoglobin A1c 7.8, mildly elevated thyroid test at 5.11 - Imaging: X-rays showed moderate to severe osteoarthritis and osteopenia Plan Patient was informed and verbally consented to the use of an ambient scribe for clinic note documentation during this visit. 1. Hypertension The patient's hypertension is managed with metoprolol 50 mg once a day. 2. Diabetes Mellitus The patient is on Jardiance 25 mg once a day for diabetes management, with a goal hemoglobin A1c of less than 7.0. Her recent blood work showed a hemoglobin A1c of 7.5, indicating the need for better dietary control. 3. Hypercholesterolemia The patient is on atorvastatin 40 mg once a day, with an LDL cholesterol goal of less than 70 mg/dL. 4. Atrial Fibrillation The patient is on Eliquis for anticoagulation to manage atrial fibrillation. 5. Gastroesophageal Reflux Disease (Gerd) The patient is advised to continue current management for gastroesophageal reflux disease. 6. Osteoarthritis The patient reports knee pain, especially at night, and has been using [id number] creams due to running out of her prescribed medication. Referral to rheumatology is planned for further evaluation and management. 7. Urinary Incontinence The patient follows up with urology for urinary incontinence and is on Flomax. She continues surveillance with ultrasound of the bladder and kidneys. 8. Rectal Incontinence The patient was seen by gastroenterology for rectal incontinence, likely due to overflow diarrhea. She was advised to avoid constipation and prescribed fiber, MiraLAX, and timed rectal evacuation. 9. Osteoporosis The patient's osteoporosis was last evaluated with a bone density scan in December 2020. Discussion Notes During the visit, I discussed the management of the patient's diabetes, emphasizing the importance of dietary control to achieve the target hemoglobin A1c of less than 7.0. We reviewed her current medications, including Jardiance for diabetes, atorvastatin for hypercholesterolemia, and Eliquis for atrial fibrillation. I recommended a referral to rheumatology for further evaluation of her osteoarthritis and discussed the continuation of her current management for gastroesophageal reflux disease. Patient Instructions - Continue taking Jardiance, atorvastatin, and Eliquis as prescribed. - Follow a healthy diet to help manage blood sugar levels. - Schedule a follow-up appointment with rheumatology for osteoarthritis evaluation. - Maintain regular follow-ups with urology for urinary incontinence management. Orders: Orders AMB Hemoglobin A1c Today E11.65 - Type 2 diabetes mellitus with hyperglycemia Referrals Rheumatology Referral S90.122A - Contusion of left lesser toe(s) without damage to nail, initial encounter Medications: New sitagliptin phosphate (Januvia) 100 mg PO DAILY 90 tabs 1RF E11.65 - Type 2 diabetes mellitus with hyperglycemia Refilled empagliflozin (Jardiance) 25 mg PO DAILY 90 tabs 3RF diclofenac sodium 1% 1 ea topical QID 1,350 grams 3RF famotidine 40 mg PO BEDTIME 90 tabs 3RF
[2025-02-02 10:10] VITALS: BP 160/78; PULSE 73; TEMP 36.2; O2SAT 95; BMI 27.2
== END 2025-02-02 11:02 | disposition home or self-care (01) ==
LOC: HO.HMCH 09:53
PROVIDERS: PCP Internal Medicine; Visit Provider Internal Medicine
DX: E11.65 Type 2 diabetes mellitus with hyperglycemia (principal); E78.5 Hyperlipidemia, unspecified; I77.9 Disorder of arteries and arterioles, unspecified; I48.0 Paroxysmal atrial fibrillation; I10 Essential (primary) hypertension; K21.9 Gastro-esophageal reflux disease without esophagitis; N39.46 Mixed incontinence; J45.909 Unspecified asthma, uncomplicated; F41.1 Generalized anxiety disorder

== ENCOUNTER → 2025-02-02 09:52 | Outpatient (BNVA) | payer MEDICARE, OTHER, SELFPAY | PROVIDERS: PCP Internal Medicine; Visit Provider Internal Medicine | DX: E11.65 Type 2 diabetes mellitus with hyperglycemia (principal); E78.5 Hyperlipidemia, unspecified; I77.9 Disorder of arteries and arterioles, unspecified; I48.0 Paroxysmal atrial fibrillation; I10 Essential (primary) hypertension; K21.9 Gastro-esophageal reflux disease without esophagitis; N39.46 Mixed incontinence; J45.909 Unspecified asthma, uncomplicated; F41.1 Generalized anxiety disorder; M81.0 Age-related osteoporosis without current pathological fracture; M51.369 Other intervertebral disc degeneration, lumbar region without mention of lumbar back pain or lower extremity pain; I25.10 Atherosclerotic heart disease of native coronary artery without angina pectoris; I50.9 Heart failure, unspecified; E78.00 Pure hypercholesterolemia, unspecified; I48.91 Unspecified atrial fibrillation; M17.0 Bilateral primary osteoarthritis of knee; R15.9 Full incontinence of feces; Z79.01 Long term (current) use of anticoagulants; Z79.899 Other long term (current) drug therapy | CPT/HCPCS: 83036; 99212 ==

== ENCOUNTER 2025-02-21 09:51 | Emergency (ER) | payer MEDICARE, OTHER, SELFPAY ==
--- OUTSIDE RECORDS SUMMARY | 2019-07-01 11:53 | XMS_ITS | Continuity of Care Document ---
Author Organization [facility] Address [address] [address] Phone Care Team Providers Care Health Unit Supervisor Name Role Phone Anton Jean Baptiste DO Unavailable Unavailable Advance Directives Directive Yes / No Effective Date File Name No Information Encounters Encounter Description Practice Location Reason(s) For Visit Diagnoses Date Provider [facility], [address] [place] [address], [id number], [place] tel:[phone] [address] [place] [address] No Information 2019 Markel Walton. [address] [place] [address], [id number], [place]. tel:[phone] Family History Family Member Type Diagnosis Age At Onset No Information Payers Payer name Insurance type Covered libertarian ID Authoriza tion(s) No Information Social History Type Description Quantity Date Captured Comments Sex Female Smoking Status No Information Chief Complaint And Reason For Visit No Information History Of Present Illness Encounter Date Complaint History Of Prese nt Illness No Information Instructions Date Instruction Additional Infor mation No Information Assessments Type Assessment Date No Information
--- NOTE | ~2025-02-21 | XR_ITS ---
EXAMINATION: XR CHEST CLINICAL INFORMATION: dyspnea COMPARISON: January 10, 2025 TECHNIQUE: Frontal view of the chest was obtained. FINDINGS: Chronic size is borderline enlarged. There is mild cephalization of pulmonary vascularity. There is minimal basilar atelectasis along the medial right hemidiaphragm. No other abnormality is noted. XR/XR chest 1V IMPRESSION: Borderline cardiac enlargement and minimal pulmonary vascular congestion. Electronically signed by: Marvin Devlin MD 02/21/2025 10:50 AM EDT
--- NOTE | ~2025-02-21 | CT_ITS ---
EXAMINATION: CT HEAD WITHOUT CONTRAST CLINICAL INFORMATION: Altered mental status COMPARISON: January 10, 2025 TECHNIQUE: Contiguous axial imaging was performed from the skull base to vertex without intravenous administration of contrast. This CT examination was performed using dose optimization techniques as appropriate, variously including the following: *Automated exposure control *Adjustment of mA and/or kV according to patient size (this includes techniques or standardized protocols for targeted exams where dose is matched to indication/reason for exam; i.e. extremities or head) *Use of iterative reconstruction technique DLP: 596 mGY*cm FINDINGS: There is mild generalized atrophy and chronic periventricular and subcortical white matter hypodensities. There is no acute ischemic change. There is no intracranial hemorrhage. There is no mass-effect or midline shift. Basal cisterns and ventricles are within normal limits for age/cerebral volume. Orbits are symmetrical and unremarkable. Paranasal sinuses and mastoid air cells are pneumatized. There are no bony abnormalities. CT/CT head/brain wo IV con IMPRESSION: No acute intracranial abnormality. Stable chronic changes. Electronically signed by: Marvin Devlin MD 02/21/2025 11:49 AM EDT
[2025-02-21 09:58] VITALS: BP 158/64; BP 161/96; PULSE 100; PULSE 96; RESP 20; TEMP 36.9; O2SAT 97; O2SAT 99; BMI 23.8
--- NOTE | 2025-02-21 10:03 | ECG_ITS ---
Test Reason : weakness Blood Pressure : */* mmHG Vent. Rate : 97 BPM Atrial Rate : * BPM P-R Int : * ms QRS Dur : 88 ms QT Int : 380 ms P-R-T Axes : * -31 80 degrees QTcB Int : 482 ms Atrial fibrillation Left axis deviation Anterior infarct (cited on or before 16-Jan-2024) Abnormal ECG When compared with ECG of 28-Dec-2024 03:52, Serial changes of Anterior infarct Present Referred By: Dar Fisher Electronically Signed By: Joby Vidal
--- NOTE | 2025-02-21 10:11 | ED_ITS ---
HPI - Weakness General Chief complaint: Nausea/Vomiting/Diarrhea Stated complaint: VOMITING,WEAK,ANX,DIFF ANSWERS Time Seen by Provider: 02/21/25 09:54 Source: patient and EMS Mode of arrival: EMS Limitations: altered mental status History of Present Illness ED Provider: HPI Narrative: 89 yo female with history of COPD/asthma, aortic stenosis, right sided pleural effusion, paroxysmal afib, HTN, DM w/ neuropathy, TIA, insomnia, urinary incontinence, hx UTI presenting with reports of nausea and vomiting, lives by herself has VNA, her neighbor called EMS as she has apparently off her baseline, patient is aware that she is at [facility] not able to recall the year, told me that her son lives in [place] and was recently visiting her, she is very anxious tachypneic and although she is alert she is somewhat of a limited historian due to her delirium versus anxiety Related Data Home Medications ?Medication ?Instructions ?Recorded ?Confirmed metoprolol succinate 50 mg 50 mg PO DAILY 08/01/24 tablet,extended release 24 hr albuterol sulfate 90 mcg/actuation 1 inh inhalation QI D PRN Shortness 02/21/25 02/21/25 aerosol inhaler Of Breath Or Wheezing digoxin 125 mcg (0.125 mg) tablet 125 mcg PO MOWEFR 02/21/25 empagliflozin 25 mg tablet 25 mg PO DAILY 02/21/25 guaifenesin 600 mg tablet, 1,200 mg PO Q12H PRN Cough 02/21/25 02/21/25 extended release 12 hr meclizine 12.5 mg tablet 12.5 mg PO TID PRN Vertigo 0 02/21/25 02/21/25 tramadol 50 mg tablet 100 mg PO DAILY PRN pain 02/21/25 Previous Rx's ?Medication ?Instructions ?Recorded PEDIATRIC FRONT WHEELED WALKER #1 ea 09/18/23 lancets 28 gauge (FreeStyle #100 ea 11/17/23 Lancets) ascorbic acid (vitamin C) 500 mg 500 mg PO DAILY #90 t abs 08/04/24 tablet (Vitamin C) cholecalciferol (vitamin D3) 25 25 mcg PO DAILY #90 ca ps 08/04/24 mcg (1,000 unit) capsule cyanocobalamin (vitamin B-12) 1,000 mcg PO DAILY #90 t abs 08/04/24 1,000 mcg tablet (Vitamin B-12) incontinence pad, liner, disp #60 ea 08/19/24 blood sugar diagnostic (FreeStyle #100 ea 09/16/24 Lite Strips) apixaban 2.5 mg tablet (Eliquis) 2.5 mg PO BID #180 ta bs 10/05/24 Adult pull ups #300 ea 12/10/24 atorvastatin 40 mg tablet (Lipitor) 40 mg PO BEDTIME # 90 tabs 01/10/25 umeclidinium 62.5 mcg-vilanterol 1 inh inhalation MONIKA Y #3 ea 01/10/25 25 mcg/actuation powdr for inhalation (Anoro Ellipta) tamsulosin 0.4 mg capsule 0.4 mg PO BEDTIME 90 days #9 0 caps 01/24/25 pregabalin 100 mg capsule 100 mg PO Q12H 31 days #62 c aps 01/26/25 zolpidem 5 mg tablet 5 mg PO BEDTIME PRN insomnia #30 01/31/25 tabs alprazolam 0.25 mg tablet 0.25 mg PO DAILY PRN anxiety #20 02/01/25 tabs diclofenac sodium 1 % topical gel 1 ea topical QID #1, 350 grams 02/02/25 famotidine 40 mg tablet 40 mg PO BEDTIME #90 tabs nystatin 100,000 unit/gram topical 1 appl topical MONIKA Y #30 grams 02/02/25 cream furosemide 40 mg tablet 40 mg PO DAILY #90 tabs 02/01 Allergies Allergy/AdvReac Type Severity Reaction Status Date / Time ciprofloxacin Allergy Severe unknown Verified 02/21/25 10:08 aspirin (Aspirin) Allergy Unknown UNKNOWN Verified 02/21/25 10:08 cefuroxime Allergy Unknown Unknown Verified 02/21/25 10:08 celecoxib (From Celebrex) Allergy Unknown UNKNOWN Verified 02/21/25 10:08 metformin Allergy Unknown diarrhea Verified 02/21/25 10:08 risedronate sodium (From Allergy Unknown UNKNOWN Verified 02/21/25 10:08 Actonel) Sulfa (Sulfonamide Allergy Unknown unknown Verified 02/21/25 10:08 Antibiotics) bupropion AdvReac Intermediate tremor Verified 02/21/25 10:08 ferrous sulfate AdvReac Intermediate tremors Verified 02/21/25 10:08 sertraline AdvReac Intermediate tremors Verified 02/21/25 10:08 Review of Systems 2 Constitutional: Constitutional: Reports as per [facility] Past Medical History Medical History Contusion of second toe of left foot Diarrhea Constipation Weakness Dizziness and giddiness Weakness Yeast infection of the skin Exercise hypoxemia Acute respiratory failure with hypoxia Lipoma of lower back Urinary incontinence Cystitis Acute urinary retention Acute diverticulitis of intestine Generalized abdominal pain Diverticular disease Nausea & vomiting Failure to thrive in adult TSH elevation CHF (congestive heart failure) Atrial fibrillation with RVR Atrial fibrillation with RVR Type 2 diabetes mellitus with hyperglycemia Diabetes mellitus Asthma Hypokalemia Hypomagnesemia Hearing difficulty Dyspnea on exertion History of gastrointestinal diverticular hemorrhage COVID-19 virus infection Rectal bleeding Medicare annual wellness visit, initial Hip pain, left Patellar sleeve fracture of right knee Knee pain, right Nausea and vomiting Coarse tremors Shoulder pain, right Hospital discharge follow-up Mass on back Tinea corporis Nausea Right wrist pain Left knee pain Left hip pain Toe pain, left Breast cancer screening by mammogram UTI (urinary tract infection) Obesity (BMI 30-39.9) Urinary frequency Toe fracture, left Pancreatic cyst Osteoporosis Peptic ulcer disease Urinary incontinence Rectal incontinence GERD (gastroesophageal reflux disease) Bile salt-induced diarrhea Vaginal prolapse Renal artery stenosis Asthma Lumbar degenerative disc disease Insomnia TIA (transient ischemic attack) Hyperlipidemia, unspecified Essential hypertension Surgical History Hx of colonoscopy History of esophagogastroduodenoscopy (EGD) History of removal of cyst (~10/17/21) History of hemorrhoidectomy History of colectomy History of section History of hysterectomy History of appendectomy History of cholecystectomy Family History Family History Father Cancer Arterial thrombosis Mother Multiple sclerosis Muscular dystrophy Hypertension Depression Chronic mental illness Mental health disorder Brother No problems noted. Brother Gangrene Sister No problems noted. Son No problems noted. Son No problems noted. Son No problems noted. Son No problems noted. Daughter No problems noted. Daughter No problems noted. Daughter No problems noted. Social History Social History (Reviewed 02/02/25 @ 10:10 by SHAAN Colon Household Members: None Housing: Apartment Do you presently have visiting nurse or other home services: Yes Alcohol intake: former Comment: 1:1 sitter Patient Tobacco Use Status: Former Tobacco user Tobacco use type: Cigarette Years Smoked: 22 Smoked in Last 30 Days: No e-Cigarette/Vaping Use: Former Use Second Hand Smoke Exposure: Yes Use of substances other than those prescribed or required for medical reasons: No Advance Directives: Yes Advance Directives on File: Yes Advance Directives Date on File: 08/11/23 service: No Current occupational status: disabled Current occupational exposures/hazards: No Cognitive needs: Yes (walker) Hearing needs: Yes Vision needs: Yes (Glasses) Physical Exam 2 Vital Signs: Vital Signs: Last Vital Signs Temp 97.5 F 02/23/25 07:32 Pulse 87 02/23/25 09:46 Resp 16 02/23/25 07:58 BP 147/76 H 02/23/25 09:46 Pulse Ox 91 L 02/23/25 07:32 O2 Del Method Room Air 02/23/25 07:32 BMI result Body Mass Index 23.8 Const: Other: * Gen: ?Restless in the [facility] * HEENT: Dry oral mucosa * Neck: Supple, no LAD * CV: Irregular and tachycardic * Resp: ?No wheezing rales rhonchi no stridor moving air well * Abd: ?Bowel sounds are present, no tenderness no rebound no rigidity * MSK: FROM, strength 5/5 all extremities * Skin: Stage I sacral decubitus ulcer * Neuro: ?Alert and oriented to self and location, moving upper and lower extremities symmetrically, no obvious facial asymmetry noted Course Course Course Narrative: 02/23/2025 0800 Rachael Britt PA-C ---> Observation continues. Case management continues to follow. 02/23/2025 1200 Rachael Britt PA-C ---> Observation ends at 1200 on 02/23/2025. Observation care revealed the the patient does not meet medical necessity for hospitalization. Final disposition of discharge home with VNA services discussed with the patient. Medications Administered Generic Name Dose Route Start Last Admin Trade Name Freq PRN Reason Stop Dose Admin Alprazolam 0.25 mg 02/21/25 18:34 02/23/25 08:33 Alprazolam 0.25 Mg Tablet PO 0.25 mg DAILY PRN Administration Anxiety Apixaban 2.5 mg 02/21/25 21:00 02/23/25 08:33 Apixaban 2.5 Mg Tablet PO 2.5 mg BID JAREK Administration Ascorbic Acid 500 mg 02/22/25 09:00 02/23/25 08:33 Ascorbic Acid 500 Mg Tablet PO 500 mg DAILY JAREK Administration Atorvastatin Calcium 40 mg 02/21/25 21:00 02/22/25 21:53 Atorvastatin Calcium 40 Mg Tablet PO 40 mg BEDTIME JAREK Administration Cyanocobalamin 1,000 mcg 02/22/25 09:00 02/23/25 08:32 Cyanocobalamin (Vitamin B-12) 1,000 Mcg Tablet PO 1,000 mcg DAILY JAREK Administration Digoxin 0.125 mg 02/23/25 09:00 02/23/25 09:46 Digoxin 0.125 Mg Tablet PO 0.125 mg [id number] JAREK Administration Protocol Empagliflozin 25 mg 02/22/25 09:00 02/23/25 09:47 Empagliflozin 25 Mg Tablet PO 25 mg DAILY JAREK Administration Famotidine 40 mg 02/21/25 21:00 02/22/25 21:52 Famotidine 20 Mg Tablet PO 40 mg BEDTIME JAREK Administration Furosemide 40 mg 02/22/25 09:00 02/23/25 08:32 Furosemide 40 Mg Tablet PO 40 mg DAILY JAREK Administration Protocol Metoprolol Succinate 50 mg 02/22/25 09:00 02/23/25 09:46 Metoprolol Succinate Er 50 Mg Tab.Er.24h PO 50 mg DAILY JAREK Administration Protocol Nystatin 1 appl 02/22/25 09:00 02/23/25 09:47 Nystatin Cream 15 Gm Tube TOPICAL Not Given DAILY JAREK Protocol Pregabalin 100 mg 02/21/25 21:15 02/23/25 08:33 Pregabalin 100 Mg Capsule PO 100 mg BID JAREK Administration Tamsulosin HCl 0.4 mg 02/22/25 09:00 02/23/25 08:32 Tamsulosin Hcl 0.4 Mg Capsule PO 0.4 mg DAILY JAREK Administration Tramadol HCl 100 mg 02/21/25 18:35 02/22/25 10:29 Tramadol Hcl 50 Mg Tablet PO 100 mg DAILY PRN Administration Pain, Moderate(Pain Scale 4-6) Vitamin D 25 mcg 02/22/25 09:00 02/23/25 08:33 Cholecalciferol (Vitamin D3) 25 Mcg Tablet PO 25 mcg DAILY JAREK Administration Zolpidem Tartrate 5 mg 02/21/25 18:34 02/21/25 22:18 Zolpidem Tartrate 5 Mg Tablet PO 5 mg BEDTIME PRN Administration Insomnia Discontinued Medications Generic Name Dose Route Start Last Admin Trade Name Román PRN Reason Stop Dose Admin Al Hydroxide/Mg Hydroxide 15 ml 02/21/25 16:04 02/21/25 16:24 Magnesium Hydrox/Alum Hydrox 30 Ml Oral.Susp PO 02/21/25 16:05 15 ml ONCE ONE Administration Ceftriaxone Sodium 1 gm 02/21/25 11:03 02/21/25 11:17 Ceftriaxone Sodium 1 Gm Vial IVPUSH 02/21/25 11:04 1 gm ONCE ONE Administration Haloperidol Lactate 2.5 mg 02/21/25 10:10 02/21/25 10:17 Haloperidol Lactate 5 Mg/Ml Vial IVPUSH 02/21/25 10:11 2.5 mg ONCE ONE Administration Sodium Chloride 1,000 mls @ 999 mls/hr 02/21/25 10:15 02/21/25 11:09 Ns IV 02/21/25 11:15 Infused .Q1H1M JAREK Infusion Ondansetron HCl 4 mg 02/21/25 10:03 02/21/25 10:12 Ondansetron Hcl 4 Mg/2 Ml Vial IVPUSH 02/21/25 10:04 4 mg ONCE ONE Administration Pantoprazole Sodium 40 mg 02/21/25 16:04 02/21/25 16:24 Pantoprazole Sodium 40 Mg/10 Ml Vial IVPUSH 02/21/25 16:05 40 mg ONCE ONE Administration Medical Decision Making Medical Decision Making MDM Narrative: 10:15 AM 02/21/2025 (Dr. Dar Fisher): Patient is quite a bit anxious on my physical examination, there was no evidence of any trauma, there was no evidence of facial asymmetry and she is speaking full sentences she is alert to self and she knows she is in the hospital, but she is very tachypneic and restless at on wondering whether this is delivery versus anxiety, considerations for workup as below, we will give her fluids, gentle sedation, then we will have to determine disposition whether she is able to be discharged home which is unlikely versus case management as she does live by herself and that understand she does have some help at home but at this time she is not able to be by herself at home in any case. 11:04 AM 02/21/2025 (Dr. Dar Fisher): Lactic is 3.1, she is getting IV fluids 1 L here and received 250 cc from EMS, we will cover with antibiotics empirically 12:54 PM 02/21/2025 (Dr. Dar Fisher): Except for a lactic elevation there is no other evidence for ongoing infection urine, chest x-ray unremarkable, CT without any strokes, patient has been much more calm, will get in touch with her HCP Lili: She told me that does not see patient much, she would like me to do everything to keep her alive , after lactate is done if it is coming down at this point I do not see any evidence for underlying infectious etiology and will anticipate case management involvement 1:20 PM 02/21/2025 (Dr. Dar Fisher): Patient's son Enrique called back, he did tell me that patient was in rehab and then after that she had VNA and that is stopped and really that he feels that pushes patient into anxiety and that she would need some kind of assistance I support at home, but he is in [place] was patient told me but he is the better contact for information Time: 08:10 Date: 02/22/25 Provider: EILEEN Franklin Patient in physician observation for case management needs. No acute events reported overnight.? No current issues or complaints. VS stable. Patient is pending PT Case Management evaluation. Will continue to monitor. Differential Diagnosis Differential Diagnoses: The differential diagnosis associated with the presentation includes (CVA, TIA, metabolic encephalopathy, electrolyte derangements, dehydration, failure to thrive) Admission/Observation Consideration of admission/observation: Escalation of care including admission/observation considered Lab Data MDM Lab Attestation statement: I reviewed the patient's lab results. 02/21/25 10:28 02/21/25 10:28 Labs: Lab Results 02/21/25 02/21/25 02/21/25 Range/Units 10:28 10:35 10:36 WBC 8.6 (4.8-10.8) X10*3/uL RBC 4.67 (4.20-5.50) X10*6/uL Hgb 11.4 L (12.0-16.0) g/dl Hct 37.0 (37.0-47.0) % MCV 79.2 L (80.0-98.0) fL MCH 24.4 L (27.0-33.0) pg MCHC 30.8 L (31.0-35.0) g/dl RDW 18.6 H (11.0-16.0) % Plt Count 320 (160-400) X10*3/uL MPV 10.9 (9.4-12.3) fL Immature Gran % (Auto) 0.4 (0.0-0.4) % Neut % (Auto) 67.1 (45-73) % Lymph % (Auto) 17.6 L (20-40) % [place] % (Auto) 13.2 H (2-11) % Eos % (Auto) 1.3 (0-4) % Baso % (Auto) 0.4 (0-2) % Lymph # (Auto) 1.5 (1.2-4.9) X10*3/uL [place] # (Auto) 1.1 (0.1-1.2) X10*3/uL Eos # (Auto) 0.1 (0.0-0.4) X10*3/uL Baso # (Auto) 0.0 (0.0-0.2) X10*3/uL Abs Immat Gran (auto) 0.03 (0.00-0.03) X10*3/uL Absolute Neuts (auto) 5.8 (2.0-8.3) x10*3/uL Absolute Nucleated RBC 0.000 (0.0-0.012) X10*3/uL Nucleated RBC % (auto) 0.0 (0.0-0.2) /100WBC Sodium 143 (135-145) mmol/L Potassium 3.4 (3.3-5.1) mmol/L Chloride 106 (96-108) mmol/L Carbon Dioxide 27 (22-29) mmol/L Anion Gap 13 (12-20) BUN 17 H (9-16) mg/dL Creatinine 0.96 (0.5-1.4) mg/dL Estim Creat Clear Calc 32.6 Estimated GFR 55 Random Glucose 216 H (60-115) mg/dL Lactic Acid 3.1 H* (0.5-2.0) mmol/L Lactic Acid F/U @ 2Hr (0.5-2.0) mmol/L Calcium 10.0 D (8.4-10.2) mg/dL Total Bilirubin 1.4 H (0.0-1.0) mg/dL AST 20 (5-31) U/L ALT 9 (0-31) U/L Alkaline Phosphatase 99 (39-117) U/L Total Protein 6.8 (6.5-8.0) g/dL Albumin 4.1 (3.5-5.0) g/dL Lipase 53 (8-78) U/L Urine Color Urine Appearance Urine pH (5.0-9.0) Ur Specific [place] (1.005-1.025) Urine Protein (Neg-Trace) mg/dL Urine Glucose (UA) (Negative) mg/dL Urine Ketones (Negative) mg/dL Urine Blood (Negative) Urine Nitrite (Negative) Ur Leukocyte Esterase (Negative) Urine RBC (0-2) /HPF Urine WBC (0-5) /HPF Ur Squamous Epith Cells (0-2) /HPF Urine Bacteria (None Seen) Hyaline Casts (0-2) /LPF COVID-19 (GIO) Negative (Negative) COVID-19 Clin Com See Note 02/21/25 02/21/25 Range/Units 10:55 12:59 WBC (4.8-10.8) X10*3/uL RBC (4.20-5.50) X10*6/uL Hgb (12.0-16.0) g/dl Hct (37.0-47.0) % MCV (80.0-98.0) fL MCH (27.0-33.0) pg MCHC (31.0-35.0) g/dl RDW (11.0-16.0) % Plt Count (160-400) X10*3/uL MPV (9.4-12.3) fL Immature Gran % (Auto) (0.0-0.4) % Neut % (Auto) (45-73) % Lymph % (Auto) (20-40) % [place] % (Auto) (2-11) % Eos % (Auto) (0-4) % Baso % (Auto) (0-2) % Lymph # (Auto) (1.2-4.9) X10*3/uL [place] # (Auto) (0.1-1.2) X10*3/uL Eos # (Auto) (0.0-0.4) X10*3/uL Baso # (Auto) (0.0-0.2) X10*3/uL Abs Immat Gran (auto) (0.00-0.03) X10*3/uL Absolute Neuts (auto) (2.0-8.3) x10*3/uL Absolute Nucleated RBC (0.0-0.012) X10*3/uL Nucleated RBC % (auto) (0.0-0.2) /100WBC Sodium (135-145) mmol/L Potassium (3.3-5.1) mmol/L Chloride (96-108) mmol/L Carbon Dioxide (22-29) mmol/L Anion Gap (12-20) BUN (9-16) mg/dL Creatinine (0.5-1.4) mg/dL Estim Creat Clear Calc Estimated GFR Random Glucose (60-115) mg/dL Lactic Acid (0.5-2.0) mmol/L Lactic Acid F/U @ 2Hr 1.4 (0.5-2.0) mmol/L Calcium (8.4-10.2) mg/dL Total Bilirubin (0.0-1.0) mg/dL AST (5-31) U/L ALT (0-31) U/L Alkaline Phosphatase (39-117) U/L Total Protein (6.5-8.0) g/dL Albumin (3.5-5.0) g/dL Lipase (8-78) U/L Urine Color Yellow Urine Appearance Clear Urine pH 7.5 (5.0-9.0) Ur Specific [place] 1.015 (1.005-1.025) Urine Protein Negative (Neg-Trace) mg/dL Urine Glucose (UA) >=1000 H (Negative) mg/dL Urine Ketones Trace (Negative) mg/dL Urine Blood Trace H (Negative) Urine Nitrite Negative (Negative) Ur Leukocyte Esterase Negative (Negative) Urine RBC 0-2 (0-2) /HPF Urine WBC 0-5 (0-5) /HPF Ur Squamous Epith Cells 3-5 (0-2) /HPF Urine Bacteria Trace (None Seen) Hyaline Casts 0-2 (0-2) /LPF COVID-19 (GIO) (Negative) COVID-19 Clin Com Independent Interpretation I performed an independent interpretation of an: EKG (97 beats per minute otherwise normal ECG without dysrhythmia, AV isaias blocks or ST-T changes to suspect underlying ACS, my independent interpretation) Radiology Impression Discussion of test interpretation with radiology: I have reviewed the radiologist's reading. ( CT/CT head/brain wo IV con IMPRESSION: No acute intracranial abnormality. Stable chronic changes.) Independent Historian Clinical information obtained from an independent historian. History obtained from or confirmed by: EMS and Other (Healthcare proxy) Social Determinants Patient?s care significantly limited by Social Determinants of Health including: Problems related to primary support group Critical Care Time Critical Care Time Critical Care Time: Yes Total Critical Care Time: 45 Attestation: Time is exclusive of separately billable procedures. Time includes: direct patient care, patient reassessment, coordination of patient care, interpretation of data (laboratory data, pulse oximetry, arterial blood gases and chest xrays), review of patient's medical records, medical consultation and documentation of patient care. Procedures excluded from critical care time: central intravenous line placement and electrocardiography. Discharge Plan Discharge Clinical Impression: Acute dehydration, Acute anxiety Prescriptions: No Action (DME) lancets [FreeStyle Lancets] 28 gauge misc See Rx Instructions .ROUTE .MEDSUPPLY Qty: 100 3RF Rx Instructions: use to test sugar once a day cyanocobalamin (vitamin B-12) [Vitamin B-12] 1,000 mcg tablet 1,000 mcg PO DAILY Qty: 90 0RF ascorbic acid (vitamin C) [Vitamin C] 500 mg tablet 500 mg PO DAILY Qty: 90 1RF cholecalciferol (vitamin D3) 25 mcg (1,000 unit) capsule 25 mcg PO DAILY Qty: 90 1RF (DME) incontinence pad, liner, disp Pad See Rx Instructions .Route Qty: 60 5RF Rx Instructions: As directed (DME) FreeStyle Lite Strips Strip See Rx Instructions .ROUTE .MEDSUPPLY Qty: 100 3RF Rx Instructions: As directed check the BS QD (DME) Adult pull ups See Rx Instructions .Route .MEDSUPPLY Qty: 300 11RF Rx Instructions: As directed atorvastatin [Lipitor] 40 mg tablet 40 mg PO BEDTIME Qty: 90 3RF umeclidinium-vilanterol [Anoro Ellipta] 62.5-25 mcg/actuation blister with device 1 inh inhalation DAILY Qty: 3 3RF pregabalin 100 mg capsule 100 mg PO Q12H 31 Days Qty: 62 2RF zolpidem 5 mg tablet 5 mg PO BEDTIME PRN (Reason: insomnia) Qty: 30 0RF alprazolam 0.25 mg tablet 0.25 mg PO DAILY PRN (Reason: anxiety) Qty: 20 0RF nystatin 100,000 unit/gram cream 1 appl topical DAILY Qty: 30 4RF furosemide 40 mg tablet 40 mg PO DAILY Qty: 90 0RF meclizine 12.5 mg Tablet 12.5 mg PO TID PRN (Reason: Vertigo) digoxin 125 mcg (0.125 mg) tablet 125 mcg PO MOWEFR albuterol sulfate 90 mcg/actuation Hfa Aerosol Inhaler 1 inh INHALATION QID PRN (Reason: Shortness Of Breath Or Wheezing) guaifenesin 600 mg Tablet Extended Release 12hr 1,200 mg PO Q12H PRN (Reason: Cough) empagliflozin 25 mg Tablet 25 mg PO DAILY tramadol 50 mg tablet 100 mg PO DAILY PRN (Reason: pain) metoprolol succinate 50 mg tablet extended release 24 hr 50 mg PO DAILY (DME) PEDIATRIC FRONT WHEELED WALKER See Rx Instructions .Route .MEDSUPPLY Qty: 1 0RF Rx Instructions: As directed tamsulosin 0.4 mg capsule 0.4 mg PO BEDTIME 90 Days Qty: 90 3RF Eliquis 2.5 mg tablet 2.5 mg PO BID Qty: 180 3RF famotidine 40 mg tablet 40 mg PO BEDTIME Qty: 90 3RF diclofenac sodium 1 % gel 1 ea topical QID Qty: 1350 3RF Referrals: [facility] [Other] Referral Note: Yazmin De Jesus will call to arrange a visit for additional services in the home. Suzanne BUITRAGO [Outside] Po,Solange Giles MD [Primary Care Provider, Internal Medicine] Print Language: Pakistani
[2025-02-21 10:31] LABS: MANUAL DIFF FLAG NO
--- NOTE | 2025-02-21 10:34 | PC.NURSE ---
pt arrives to ED by EMS from home where she lives alone. neighbors/friends/family check in on her typically. On arrival she was confused and anxious. report that she has been up all night vomiting and has frequent UTIs. IV was established by EMS where she got about 200ml NS. Another 1L ordered in ED along with 4mg zofran. In afib on tele rate from 80-120 with some jumps to 140 but infrequently. dry heaving/vomiting. plan for straight cath after lab work complete.
[2025-02-21 10:37] LABS: Hematocrit 37.0 % (37.0-47.0); Hemoglobin 11.4 g/dl (12.0-16.0); Imm Gran Abs Auto 0.03 X10*3/uL (0.00-0.03); Imm Gran Pct Auto 0.4 % (0.0-0.4); Lymphocytes Absolute Auto 1.5 X10*3/uL (1.2-4.9); Mean Corpuscular HGB Conc 30.8 g/dl (31.0-35.0); Mean Corpuscular Hemoglobin 24.4 pg (27.0-33.0); Mean Corpuscular Volume 79.2 fL (80.0-98.0); NRBC Abs Auto 0.000 X10*3/uL (0.0-0.012); NRBC Pct Auto 0.0 /100WBC (0.0-0.2); Platelet Count 320 X10*3/uL (160-400); Red Blood Count 4.67 X10*6/uL (4.20-5.50); White Blood Count 8.6 X10*3/uL (4.8-10.8)
[2025-02-21 10:49] LABS: Alanine Aminotransferase 9 U/L (0-31); Albumin Level 4.1 g/dL (3.5-5.0); Alkaline Phosphatase 99 U/L (39-117); Anion Gap 13 (12-20); Aspartate Amino Transferase 20 U/L (5-31); Blood Urea Nitrogen 17 mg/dL (9-16); Calcium 10.0 mg/dL (8.4-10.2); Carbon Dioxide 27 mmol/L (22-29); Chloride 106 mmol/L (96-108); Creatinine Clr Calc Pharmacy 32.6; Estimated Glomerular Filt Rate 55; Lipase 53 U/L (8-78); Potassium 3.4 mmol/L (3.3-5.1); Sodium 143 mmol/L (135-145); Total Protein 6.8 g/dL (6.5-8.0)
[2025-02-21 11:04] LABS: Appearance Urine Clear; Glucose Urine UA >=1000 mg/dL (Negative); PH 7.5 (5.0-9.0); Specific Gravity - Urine 1.015 (1.005-1.025); UMIC TRIGGER UACC YES
[2025-02-21 11:05] LABS: IDNOW Serial# 55D5AD1C
[2025-02-21 11:06] LABS: COVID-19 Test Negative (Negative)
[2025-02-21 12:31] VITALS: BP 170/71; PULSE 96; RESP 15; TEMP 36.7; O2SAT 94
--- OUTSIDE RECORDS SUMMARY | 2025-02-21 12:40 | XMS_ITS | Encounter Summary ---
Author Organization [facility] Address [address] [place] [address] Phone Care Team Providers Care Senior Care Assistant Name Role Phone Solange Jacobs MD Primary Care Provider [phone] Reason for Referral * Physical Therapy (Routine) - Closed Specialty Diagnoses / Procedures Referred By Contac t Referred To Contact Physical Therapy Diagnoses Encounter for rehabilitation System, Provider Not In, [facility] [id number] [place] [id number] Phone: tel: Referral ID Status Reason Start Date Expiration Date Visits Re quested Visits Authorized [id number] Closed 07/01/2018 06/01/2019 99 [phone] Encounter Details Date Type Department Care Team (Latest Contact Info) Description 06/10/2018 Transcribe Orders [facility] [address] [place] [id number] Solange Jacobs MD [address] [place] [phone] Encounter for rehabilitation (Primary Dx) Social [...] Diagnoses Orde r Schedule Ambulatory referral to [facility] Physical Therapy Outpatient Referral Routine Encounter for [...] documented as of this encounter Care Teams Senior Care Assistant Relationship Specialty Start Date End Date Solange Jacobs MD [address] [facility] [address] [place] [phone] PCP - General Internal Medicine 08/26/17 documented as of this encounter Additional Source Comments The information contained in this document represents components of the legal health record. It is not the complete legal health record.[facility]
[2025-02-21 12:41] LABS: Reflex Lactate? Lactic Acid Added
--- OUTSIDE RECORDS SUMMARY | 2025-02-21 12:41 | XMS_ITS | Encounter Summary ---
Author Organization [facility] Address [address] [place] [address] Phone Care Team Providers Care Community Relations Manager Name Role Phone Solange Jacobs MD Primary Care Provider [phone] Encounter Details Date Type Department Care Team (Late st Contact Info) Description 01/31/2023 Procedure Pass [facility] Admitting Dept Virtual Department [address] [place] [address] Social History Tobacco Use Types Packs/Day Years Used Date Smoking Tobacco: Former Cigarettes 2 20 0 06/02/1977 - 06/02/1997 Smokeless Tobacco: Never Alcohol Use Standard Drinks/Week Comments No 0 (1 standard drink = 0.6 oz pur e alcohol) Education Answer Date Recorded Are you interested in more education? Not on henry e 09/27/2022 Are you concerned about learning? Not on file 09/27/2022 No 09/27/2022 No 09/27/2022 Digital Access Answer Date Recorded No 10/22/2022 No 10/22/2022 Reliable internet access at home? Not on file 10/22/2022 Device with a working camera? Not on file Comments No Sex and Gender Information Value Date Recorded Sex Assigned at Female 08/26/2017 4:48 PM EDT Legal Sex Female 10:14 PM EDT Gender Identity Female 08/26/2017 4:48 PM EDT Sexual Orientation Straight 08/26/2017 4: 48 PM EDT documented as of this encounter Functional Status * Calculated C-SSRS Risk Score (Lifetime/Recent) Answer Date of Assessment Author No Risk Indicated 02/03/2023 5:21 PM EDT America Giles, JUAN * [place] Suicide Severity Rating Scale (Screener/Recent Self-Report) Question Answer Date of Assessment Author 1. Wish to be (Past 1 Month) No 023 5:21 PM EDT America Giles, RN 2. Non-Specific Active Suici vaishnavi Thoughts (Past 1 Month) No 02/03/2023 5:21 PM EDT America Giles, RN 6. Suicidal Behavior (Lifetime) No 5:21 PM EDT America Giles, JUAN documented as of this encounter Plan of Treatment Not on file documented as of this encounter Visit Diagnoses Not on filedocumented in this encounter Additional Health Concerns Infection Onset Date Last Indicated Resolved Time CoV-Risk Comment:Neg covid 02/04/2023 02/04/2023 02/04/2023 3:01 PM E DT CoV-Risk 03/04/2023 03/04/2023 03/15/2023 1:22 AM EDT documented as of this encounter Care Teams Community Relations Manager Relationship Specialty Start Date End Date Solange Jacobs MD [address] [place] [address] [place] [phone] PCP - General Internal Medicine 08/26/17 documented as of this encounter Additional Source Comments The information contained in this document represents components of the legal health record. It is not the complete legal health record.[facility]
--- OUTSIDE RECORDS SUMMARY | 2025-02-21 12:41 | XMS_ITS | Encounter Summary ---
Author Organization [facility] Address [address] [place] [address] Phone Care Team Providers Care Credit Card Analyst Name Role Phone Solange Jacobs MD Primary Care Provider [phone] Encounter Details Date Type Department Care Team (Late st Contact Info) Description 05/24/2021 Procedure Pass [facility], Ct Scan - [facility] [address] [place] [address] Social History Tobacco Use Types Packs/Day Years Used Date Smoking Tobacco: Former Cigarettes 2 20 0 06/02/1977 - 06/02/1997 Smokeless Tobacco: Never Alcohol Use Standard Drinks/Week Comments No 0 (1 standard drink = 0.6 oz pur e alcohol) Comments No Sex and Gender Information Value Date Recorded Sex Assigned at Female 08/26/2017 4:48 PM EDT Legal Sex Female 10:14 PM EDT Gender Identity Female 08/26/2017 4:48 PM EDT Sexual Orientation Straight 08/26/2017 4: 48 PM EDT documented as of this encounter Functional Status * Calculated C-SSRS Risk Score (Lifetime/Recent) Answer Date of Assessment Author No Risk Indicated 05/24/2021 12:34 PM Joan Alan RN * [place] Suicide Severity Rating Scale (Screener/Recent Self-Report) Question Answer Date of Assessment Author 1. Wish to be (Past 1 Month) No 021 12:34 PM Joan Jade, RN 2. Non-Specific Active Suici vaishnavi Thoughts (Past 1 Month) No 05/24/2021 12:34 PM Mariann Jade RN 6. Suicidal Behavior (Lifetime) No 12:34 PM Joan Jade RN documented as of this encounter Plan of [...] documented as of this encounter Care Teams Credit Card Analyst Relationship Specialty Start Date End Date Solange Jacobs MD [address] [place] [phone] PCP - General Internal Medicine 08/26/17 documented as of this encounter Additional Source Comments The information contained in this document represents components of the legal health record. It is not the complete legal health record.[facility]
--- OUTSIDE RECORDS SUMMARY | 2025-02-21 12:41 | XMS_ITS | Encounter Summary ---
Author Organization [facility] Address [address] [place] [address] Phone Care Team Providers Care Arabic Professor Name Role Phone Solange Jacobs MD Primary Care Provider [phone] Encounter Details Date Type Department Care Team (Latest Contact Info) Description 03/22/2019 Transcribe Orders [facility] [address] [place] [address] Solange Jacobs MD [address] [place] [address] Pure hypercholesterolemia (Primary Dx); Essential hypertension, malignant; Uncontrolled type 2 diabetes mellitus with hyperglycemia; Degeneration of lumbar intervertebral disc; Asthmatic bronchitis without complication, unspecified asthma severity, unspecified whether persistent Social History Tobacco Use Types Packs/Day Years [...] on file documented as of this encounter Results * (ABNORMAL) Lipid panel (03/22/2019 9:36 AM EDT) HDL 46 mg/dL [facility] Comment: Interpretation <40 mg/dL: Low HDL cholesterol (major risk factor for CHD) Greater than or equal to 60 mg/dL: High HDL cholesterol ( negative risk factor for CHD) HDL - cholesterol is affected by a number of factors, e.g. smoking, excerise, hormones, sex and age. CHOLESTEROL 142 0 - 240 mg/dL [facility] TRIGLYCERIDES 261(H) 30 - 160 mg/dL [facility] LDL 44(L) 50 - 129 mg/dL [facility] Comment: LDL levels in terms of risk for coronary heart disease: <100 mg/dL: Optimal 100-129 mg/dL: Near or above optimal 130-159 mg/dL: Borderline high 160-189 mg/dL: High >190 mg/dL: Very High CARDIAC RISK RATIO 3.1(L) 3.3 - 4.4 [facility] Blood 03/22/2019 9:36 AM EDT 03/22/2019 10:12 AM EDT us Solange Jacobs MD LAB BLOOD ORDERABLES Final Re sult [address] [address] * (ABNORMAL) Comprehensive metabolic panel (03/22/2019 9:36 AM EDT) SODIUM 140 133 - 146 mmol/L [facility] POTASSIUM 5.0 3.3 - 5.1 mmol/L [facility] CHLORIDE 102 96 - 108 mmol/L [facility] CO2 23 21 - 35 mmol/L [facility] BUN 13 6 - 19 mg/dL [facility] CREATININE 0.70 0.5 - 1.5 mg/dL [facility] GLUCOSE 139(H) 70 - 99 mg/dL [facility] ALBUMIN 4.5 3.9 - 4.8 g/dL [facility] TOTAL PROTEIN 7.7 6.5 - 8.0 g/dL [facility] CALCIUM 10.9(H) 8.4 - 10.3 mg/dL [facility] ALKALINE PHOSPHATASE 80 39 - 117 U/L [facility] TOTAL BILIRUBIN 0.7 0.0 - 1.2 mg/dL [facility] AST 38(H) 0 - 37 U/L [facility] ALT 20 0 - 40 U/L [facility] GLOBULIN 3.2 1 - 4.8 g/dL [facility] EGFR 81 >59 mL/min/1.7 3m2 [facility] Comment:If patient is black, multiply result by 1.159. Estimated glomerular filtration rate calculated using the CKD-EPI equation. ANION GAP 20 10 - 20 mmol/L [facility] Blood 03/22/2019 9:36 AM EDT 03/22/2019 10:12 AM EDT us Solange Jacobs MD LAB BLOOD ORDERABLES Final Re sult Performing Organization Address [facility] Co de Phone Number [address] [address] * T4, total (03/22/2019 9:36 AM EDT) THYROXINE 5.9 4.6 - 12.0 ug/dL [facility] Blood 03/22/2019 9:36 AM EDT 03/22/2019 10:12 AM EDT Solange Jacobs MD LAB BLOOD ORDERABLES Final Re sult Performing Organization Address [facility] Co de Phone Number [address] [address] * Microalbumin/creatinine ratio, random urine (03/22/2019 9:36 AM EDT) URINE MICROALBUMIN <1.2 0 - 2.3 mg/dL [facility] URINE CREATININE 33 mg/dL [facility] MICROALB/CRE RATIO NOT CALCULATED 0 - 20 mg/g Cre [facility] Comment:due to Microalbumin <1.2 Urine (Urine) 03/22/2019 9:3 6 AM EDT 03/22/2019 10:12 AM EDT us Solange Jacobs MD URINE ORDERABLES Final Result Performing Organization Address City/[facility]/ZIP Co de Phone Number [address] [address] * (ABNORMAL) TSH (03/22/2019 9:36 AM EDT) TSH 5.64(H) 0.27 - 4.20 uIU/mL [facility] Blood 03/22/2019 9:36 AM EDT 03/22/2019 10:12 AM EDT Solange Jacobs MD LAB BLOOD ORDERABLES Final Re sult Performing Organization Address [facility] Co de Phone Number [address] [address] * (ABNORMAL) CBC and differential (03/22/2019 9:36 AM EDT) WBC 8.31 3.40 - 11.20 K/uL [facility] RBC 5.31(H) 3.80 - 4.80 M/uL [facility] HGB 16.8(H) 12.0 - 15.0 g/dL [facility] HCT 49.1(H) 36.0 - 46.0 % [facility] PLT 283 130 - 400 K/uL [facility] MCV 92.5 79.0 - 98.0 [facility] MCH 31.6 27.0 - 34.8 pg [facility] MCHC 34.2 31.5 - 36.0 g/dL [facility] RDW 12.8 10.8 - 14.6 % [facility] MPV 10.5 9.4 - 12.4 [facility] NRBC 0.00 0.00 /100 WBCs [facility] ABSOLUTE NRBC 0.00 0.00 K/uL [facility] DIFF METHOD Auto [facility] NEUTS 66.0 45.30 - 77.70 % [facility] LYMPHS 23.0 12.30 - 39.70 % [facility] MONOS 8.9 4.10 - 12.80 % [facility] EOS 1.3 0 - 7.2 % [facility] BASOS 0.6 0 - 2.80 % [facility] Granulocytes, immature (%) 0.2 0.0 - 0.9 % [facility] ABSOLUTE NEUTS 5.48 1.40 - 7.70 K/uL [facility] ABSOLUTE LYMPHS 1.91 0.60 - 3.20 K/uL [facility] ABSOLUTE MONOS 0.74(H) 0.11 - 0.59 K/uL [facility] ABSOLUTE EOS 0.11 0.01 - 0.50 K/uL [facility] ABSOLUTE BASOS 0.05 0.00 - 0.08 K/uL [facility] Granulocytes, immature 0.02 0.00 - 0.05 K/uL [facility] Blood 03/22/2019 9:36 AM EDT 03/22/2019 10:12 AM EDT us Solange Jacbos MD LAB BLOOD ORDERABLES Final Re sult [address] [address] * (ABNORMAL) Folate (03/22/2019 9:36 AM EDT) FOLIC ACID >20.0(H) 4.2 - 19.9 ng/mL [facility] Blood 03/22/2019 9:36 AM EDT 03/22/2019 10:12 AM EDT us Solange Jacobs MD LAB BLOOD ORDERABLES Final Re sult Performing Organization Address City/[facility]/ZIP Co de Phone Number [address] [address] * Vitamin B12 (03/22/2019 9:36 AM EDT) VITAMIN B12 1,041 232 - 1,245 pg/mL [facility] Blood 03/22/2019 9:36 AM EDT 03/22/2019 10:12 AM EDT us Solange Jacobs MD LAB BLOOD ORDERABLES Final Re sult Performing Organization Address City/[facility]/ZIP Co de Phone Number [address] [address] * 25-OH vitamin D (03/22/2019 9:36 AM EDT) 25 [place] VIT D (TOTAL) 42 30 - 60 ng/mL [facility] Blood 03/22/2019 9:36 AM EDT 03/22/2019 10:12 AM EDT us Solange Jacobs MD LAB BLOOD ORDERABLES Final Re sult Performing Organization Address [facility] Co de Phone Number [address] [address] documented in this encounter Visit Diagnoses Diagnosis Pure hypercholesterolemia- Primary Essential hypertension, malignant Uncontrolled type 2 diabetes mellitus with hyperglycemia Degeneration of lumbar intervertebral disc Degeneration of lumbar or lumbosacral intervertebral disc Asthmatic bronchitis without complication, unspecified asthma severity, unspecified whether persistent documented in this encounter Additional Health Concerns [...] documented as of this encounter Care Teams Arabic Professor Relationship Specialty Start Date End Date Solange Jacobs MD [address] [place] [phone] PCP - General Internal Medicine 08/26/17 documented as of this encounter Additional Source Comments The information contained in this document represents components of the legal health record. It is not the complete legal health record.[facility]
--- OUTSIDE RECORDS SUMMARY | 2025-02-21 12:41 | XMS_ITS | Encounter Summary ---
Author Organization [facility] Address [address] [place] [address] Phone Care Team Providers Care Sisal Operator Name Role Phone Solange Jacobs MD Primary Care Provider [phone] Encounter Details Date Type Department Care Team (Latest Contact Info) Description 08/05/2019 Ancillary Orders Virtual Department [address] [place] [address] Bee Barnes MD [address] [place] [address] [email or web address] Lumbar radiculopathy Social History Tobacco Use Types Packs/Day Years [...] as of this encounter Visit Diagnoses Diagnosis Lumbar radiculopathy Thoracic or lumbosacral neuritis or radiculitis, unspecified documented in this encounter Additional Health Concerns [...] documented as of this encounter Care Teams Sisal Operator Relationship Specialty Start Date End Date Solange Jacobs MD [address] [place] [address] PCP - General Internal Medicine 08/26/17 documented as of this encounter Additional Source Comments The information contained in this document represents components of the legal health record. It is not the complete legal health record.[facility]
--- OUTSIDE RECORDS SUMMARY | 2025-02-21 12:41 | XMS_ITS | Encounter Summary ---
Author Organization [facility] Address [address] [place] [address] Phone Care Team Providers Care Airline Stewardess Name Role Phone Solange Jacobs MD Primary Care Provider [phone] Encounter Details Date Type Department Care Team (Late st Contact Info) Description 03/22/2024 Procedure Pass [facility] [address] [place] [address] Social History Tobacco Use Types Packs/Day Years Used Date Smoking Tobacco: Former Cigarettes 2 20 0 06/02/1977 - 06/02/1997 Smokeless Tobacco: Never Alcohol Use Standard Drinks/Week Comments No 0 (1 standard drink = 0.6 oz pur e alcohol) Home Health Assessment: Transportation Answer Date Recorded Lack of Transportation (Medical) No 04/08/2023 Lack of Transportation (Non-Medical) No 04/08/2023 Patient Unable or Declines to Respond No 04/08/2023 Education Answer Date Recorded Are you interested in more education? Not on henry e 09/27/2022 Are you concerned about learning? Not on file 09/27/2022 No 09/27/2022 No 09/27/2022 Digital Access Answer Date Recorded No 10/22/2022 No 10/22/2022 Reliable internet access at home? Not on file 10/22/2022 Device with a working camera? Not on file Intimate Partner Violence Answer Date R ecorded Are you denied basic needs s uch as food, clothing, or medical care? No 08/02/2023 In the past 12 months have y ou been in a relationship with a person who hurts, threatens, or tries to control you? No 08/02/2023 Are you denied basic needs s uch as food, clothing, or medical care? No 08/02/2023 In the past 12 months have y ou been in a relationship with a person who hurts, threatens, or tries to control you? No 08/02/2023 Comments No Sex and Gender Information Value Date Recorded Sex Assigned at Female 08/26/2017 4:48 PM EDT Legal Sex Female 10:14 PM EDT Gender Identity Female 08/26/2017 4:48 PM EDT Sexual Orientation Straight 08/26/2017 4: 48 PM EDT documented as of this encounter Plan of Treatment Not on file documented as of this encounter Visit Diagnoses Not on filedocumented in this encounter Care Teams Airline Stewardess Relationship Specialty Start Date End Date Solange Jacobs MD [address] [place] [address] [place] [phone] PCP - General Internal Medicine 08/26/17 documented as of this encounter Additional Source Comments The information contained in this document represents components of the legal health record. It is not the complete legal health record.[facility]
--- OUTSIDE RECORDS SUMMARY | 2025-02-21 12:41 | XMS_ITS | Encounter Summary ---
Author Organization [facility] Address [address] [place] [address] Phone Care Team Providers Care Rehabilitation Attendant Name Role Phone Solange Jacobs MD Primary Care Provider [phone] Encounter Details Date Type Department Care Team (Late st Contact Info) Description 08/02/2023 Procedure Pass [facility], Ct Scan - [facility] [address] [place] [address] Social History Tobacco Use Types Packs/Day Years [...] Date of Assessment Author No Risk Indicated 08/02/2023 1:51 PM Sukumar Contreras RN * [place] Suicide Severity Rating Scale (Screener/Recent Self-Report) Question Answer Date of Assessment Author 1. Wish to be (Past 1 Month) No 024 1:51 PM Sukumar Contreras RN 2. Non-Specific Active Suici vaishnavi Thoughts (Past 1 Month) No 08/02/2023 1:51 PM Tori Contreras RN 6. Suicidal Behavior (Lifetime) No 4 1:51 PM Sukumar Contreras RN documented as of this encounter Plan of Treatment Not on file documented as of this encounter Visit Diagnoses Not on filedocumented in this encounter Care Teams Rehabilitation Attendant Relationship Specialty Start Date End Date Solange Jacobs MD [address] [place] [address] [address] [place] [phone] PCP - General Internal Medicine 08/26/17 documented as of this encounter Additional Source Comments The information contained in this document represents components of the legal health record. It is not the complete legal health record.[facility]
--- OUTSIDE RECORDS SUMMARY | 2025-02-21 12:41 | XMS_ITS | Encounter Summary ---
Author Organization [facility] Address [address] [place] [address] Phone Care Team Providers Care Coffee Grinder Name Role Phone Solange Jacobs MD Primary Care Provider [phone] Encounter Details Date Type Department Care Team (Late st Contact Info) Description 03/14/2022 Procedure Pass [facility]oscopy Admitting Dept Virtual Department [address] [place] [address] Social History Tobacco Use Types Packs/Day Years [...] documented as of this encounter Care Teams Coffee Grinder Relationship Specialty Start Date End Date Solange Jacobs MD [address] [place] [phone] PCP - General Internal Medicine 08/26/17 documented as of this encounter Additional Source Comments The information contained in this document represents components of the legal health record. It is not the complete legal health record.[facility]
--- OUTSIDE RECORDS SUMMARY | 2025-02-21 12:41 | XMS_ITS | Encounter Summary ---
Author Organization [facility] Address [address] [place] [address] Phone Care Team Providers Care Jig Builder Name Role Phone Solange Jacobs MD Primary Care Provider [phone] Encounter Details Date Type Department Care Team (Latest Contact Info) Description 05/12/2019 Transcribe Orders [facility] [address] [place] [address] Solange Jacobs MD [address] [place] [address] Hypercalcemia (Primary Dx); Nonspecific abnormal results of thyroid function study Social History Tobacco Use Types Packs/Day Years [...] as of this encounter Results * (ABNORMAL) TSH (05/12/2019 10:21 AM EST) TSH 10.10(H) 0.27 - 4.20 uIU/mL [facility] Blood 05/12/2019 10:2 1 AM EST 05/12/2019 10:42 AM EST us Solange Jacobs MD LAB BLOOD ORDERABLES Final Re sult Performing Organization Address [facility] Co de Phone Number [address] [address] * T4, total (05/12/2019 10:21 AM EST) THYROXINE 5.6 4.6 - 12.0 ug/dL [facility] Blood 05/12/2019 10:2 1 AM EST 05/12/2019 10:42 AM EST us Solange Jacobs MD LAB BLOOD ORDERABLES Final Re sult Performing Organization Address [facility] Co de Phone Number [address] [address] * Calcium (05/12/2019 10:21 AM EST) CALCIUM 9.8 8.4 - 10.3 mg/dL [facility] Blood 05/12/2019 10:2 1 AM EST 05/12/2019 10:42 AM EST Result Brionna Jacobs MD LAB BLOOD ORDERABLES Final Re sult Performing Organization Address [facility] de Phone Number [address] [address] * (ABNORMAL) Parathyroid hormone (PTH) (05/12/2019 10:21 AM EST) PARATHYROID HORMONE 79(H) 15 - 65 pg/mL [facility] Blood 05/12/2019 10:2 1 AM EST 05/12/2019 10:43 AM EST us Solange Jacobs MD LAB BLOOD ORDERABLES Final Re sult [facility] [address] [place] [address] documented in this encounter Visit Diagnoses Diagnosis Hypercalcemia- Primary Nonspecific abnormal results of thyroid function study documented in this encounter Additional Health Concerns [...] documented as of this encounter Care Teams Jig Builder Relationship Specialty Start Date End Date Solange Jacobs MD [address] [place] [phone] PCP - General Internal Medicine 08/26/17 documented as of this encounter Additional Source Comments The information contained in this document represents components of the legal health record. It is not the complete legal health record.[facility]
--- OUTSIDE RECORDS SUMMARY | 2025-02-21 12:41 | XMS_ITS | Encounter Summary ---
Author Organization [facility] Address [address] [place] [address] Phone Care Team Providers Care Longwall Headgate Operator Name Role Phone Solange Jacobs MD Primary Care Provider [phone] Encounter Details Date Type Department Care Team (Late st Contact Info) Description 07/16/2019 Ancillary Orders [facility], X-Ray - [place] [address] [place] [address] Solange Jacobs MD [address] [place] [address] Pain Social History Tobacco Use Types Packs/Day Years [...] documented as of this encounter Results * XR Sacrum and Coccyx (07/16/2019 11:29 AM EST) Anatomical Region Laterality Modality L-spine Radiographic Rianna ging 07/16/2019 11:3 3 AM EST Impressions 07/16/2019 11:38 AM EST 1. No findings to account for the patient's coccygeal pain. 2. Chronic osteopenia, multilevel lumbar spine disc disease and mild bilateral sacroiliac joint osteoarthritis. POS - [id number] Narrative 07/16/2019 11:38 AM EST HISTORY: As above. No trauma. COMPARISON: CT pelvis 08/26/2017. SACRUM & COCCYX RADIOGRAPH FINDINGS: Three views obtained. Chronic osteopenia. No fracture or malalignment. Stable severe L2-3, L3-4 and moderate L4-5 disc space narrowing with multilevel facet arthropathy. Chronic mild bilateral SI joint osteoarthritis. No destructive bone lesions. Multiple chronic left pelvic surgical clips. Procedure Note Ryland Cid MD - 07/16/2019 HISTORY: As above. No trauma. COMPARISON: CT pelvis 08/26/2017. SACRUM & COCCYX RADIOGRAPH FINDINGS: Three views obtained. Chronic osteopenia. No fracture or malalignment. Stable severe L2-3,L3-4 and moderate L4-5 disc space narrowing with multilevel facetarthropathy. Chronic mild bilateral SI joint osteoarthritis. Nodestructive bone lesions. Multiple chronic left pelvic surgical clips. IMPRESSION: 1. No findings to account for the patient's coccygeal pain. 2. Chronic osteopenia, multilevel lumbar spine disc disease and mildbilateral sacroiliac joint osteoarthritis. POS - [id number] Solange Jacobs MD IMG XR SPINE Final Result documented in this encounter Visit Diagnoses Diagnosis Pain Generalized pain Pain Generalized pain documented in this encounter Additional Health Concerns [...] documented as of this encounter Care Teams Longwall Headgate Operator Relationship Specialty Start Date End Date Po, Solange Jacobo MD [address] [place] [address] [place] [phone] PCP - General Internal Medicine 08/26/17 documented as of this encounter Additional Source Comments The information contained in this document represents components of the legal health record. It is not the complete legal health record.[facility]
--- OUTSIDE RECORDS SUMMARY | 2025-02-21 12:41 | XMS_ITS | Encounter Summary ---
Author Organization [facility] Address [address] [place] [address] Phone Care Team Providers Care Family Sociologist Name Role Phone Solange Jacobs MD Primary Care Provider [phone] Encounter Details Date Type Department Care Team (Late st Contact Info) Description 03/13/2022 Procedure Pass [facility], Ct Scan - [facility] [address] [place] [address] Social History Tobacco Use Types Packs/Day Years [...] Date of Assessment Author No Risk Indicated 03/13/2022 9:16 PM EDT Arnold Ellington RN * [place] Suicide Severity Rating Scale (Screener/Recent Self-Report) Question Answer Date of Assessment Author 1. Wish to be (Past 1 Month) No 022 9:16 PM EDT Arnold Ellington RN 2. Non-Specific Active Suici vaishnavi Thoughts (Past 1 Month) No 03/13/2022 9:16 PM EDT Arnold Ellington RN 6. Suicidal Behavior (Lifetime) No 9:16 PM EDT Arnold Ellington RN documented as of this encounter Plan [...] documented as of this encounter Care Teams Family Sociologist Relationship Specialty Start Date End Date Solange Jacobs MD [address] [place] [phone] PCP - General Internal Medicine 08/26/17 documented as of this encounter Additional Source Comments The information contained in this document represents components of the legal health record. It is not the complete legal health record.[facility]
--- OUTSIDE RECORDS SUMMARY | 2025-02-21 12:41 | XMS_ITS | Encounter Summary ---
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) Social History Tobacco Use Types [...] as of this encounter Visit Diagnoses Diagnosis Primary localized osteoarthritis of pelvic region and thigh- Primary documented in this encounter Additional Health [...] documented as of this encounter Care Teams Local Flatbed Driver Relationship Specialty Start Date End Date Reynaldo, Solange Jacobo MD [address] [place] [address] [place] [phone] PCP - General Internal Medicine 08/26/17 documented as of this encounter Additional Source Comments The information contained in this document represents components of the legal health record. It is not the complete legal health record.[facility]
--- OUTSIDE RECORDS SUMMARY | 2025-02-21 12:41 | XMS_ITS | Encounter Summary ---
Author Organization [facility] Address [address] [place] [address] Phone Care Team Providers Care Solution Director Name Role Phone Solange Jacobs MD Primary Care Provider Encounter Details Date Type Department Care Team (Late st Contact Info) Description 10/07/2022 Procedure Pass [facility] [address] [place] [address] Social History Tobacco Use Types Packs/Day Years [...] on file 09/27/2022 No 09/27/2022 No 09/27/2022 Comments No Sex and Gender Information Value [...] documented as of this encounter Care Teams Solution Director Relationship Specialty Start Date End Date Solange Jacobs MD [address] [place] [phone] PCP - General Internal Medicine 08/26/17 documented as of this encounter Additional Source Comments The information contained in this document represents components of the legal health record. It is not the complete legal health record.[facility]
--- OUTSIDE RECORDS SUMMARY | 2025-02-21 12:41 | XMS_ITS | Encounter Summary ---
Author Organization [facility] Address [address] [place] [address] Phone Care Team Providers Care Circuit Clerk Name Role Phone Solange Jacobs MD Primary Care Provider [phone] Encounter Details Date Type Department Care Team (Late st Contact Info) Description 03/10/2021 Procedure Pass [facility], Ct Scan - [facility] [address] [place] [address] Social History Tobacco Use Types Packs/Day Years [...] Date of Assessment Author No Risk Indicated 03/10/2021 12:20 PM EDT Katie Hugo, JUAN * [place] Suicide Severity Rating Scale (Screener/Recent Self-Report) Question Answer Date of Assessment Author 1. Wish to be (Past 1 Month) No 021 12:20 PM EDT Katie Hugo, RN 2. Non-Specific Active Suici vaishnavi Thoughts (Past 1 Month) No 03/10/2021 12:20 PM EDT Salina Hugo, RN 6. Suicidal Behavior (Lifetime) No 12:20 PM EDT Katie Hugo, RN documented as of this encounter Plan [...] documented as of this encounter Care Teams Circuit Clerk Relationship Specialty Start Date End Date Solange Jacobs MD [address] [place] [phone] PCP - General Internal Medicine 08/26/17 documented as of this encounter Additional Source Comments The information contained in this document represents components of the legal health record. It is not the complete legal health record.[facility]
--- OUTSIDE RECORDS SUMMARY | 2025-02-21 12:41 | XMS_ITS | Encounter Summary ---
Author Organization [facility] Address [address] [place] [address] Phone Care Team Providers Care Sewing Machinist Name Role Phone Solange Jacobs MD Primary Care Provider [phone] Encounter Details Date Type Department Care Team (Late st Contact Info) Description 05/24/2021 Procedure Pass [facility], [address] [address] Social History Tobacco Use Types Packs/Day Years [...] 05/24/2021 12:34 PM Joan Alan RN * [place] Suicide Severity Rating Scale (Screener/Recent Self-Report) Question Answer Date of Assessment Author 1. Wish to be (Past 1 Month) No 021 12:34 PM EST Denise, Joan L, RN 2. Non-Specific Active Suici vaishnavi Thoughts [...] documented as of this encounter Care Teams Sewing Machinist Relationship Specialty Start Date End Date Solange Jacobs MD [address] [place] [address] PCP - General Internal Medicine 08/26/17 documented as of this encounter Additional Source Comments The information contained in this document represents components of the legal health record. It is not the complete legal health record.[facility]
--- OUTSIDE RECORDS SUMMARY | 2025-02-21 12:41 | XMS_ITS | Encounter Summary ---
Author Organization [facility] Address [address] [place] [address] Phone Care Team Providers Care Security Program Manager Name Role Phone Solange Jacobs MD Primary Care Provider [phone] Encounter Details Date Type Department Care Team (Late st Contact Info) Description 10/06/2022 Procedure Pass [facility], Ct Scan - [facility] [address] [place] [address] Social History Tobacco Use Types Packs/Day Years [...] Date of Assessment Author No Risk Indicated 10/06/2022 5:41 PM EDT Manolo Sales RN * [place] Suicide Severity Rating Scale (Screener/Recent Self-Report) Question Answer Date of Assessment Author 1. Wish to be (Past 1 Month) No 023 5:41 PM EDT Nicole Sales RN 2. Non-Specific Active Suici vaishnavi Thoughts (Past 1 Month) No 10/06/2022 5:41 PM EDT Netta Sales RN 6. Suicidal Behavior (Lifetime) No 3 5:41 PM EDT Nicole Sales RN documented as of this encounter Plan of Treatment Not on file documented as of this encounter Visit Diagnoses Not on filedocumented in this encounter Additional Health Concerns Infection Onset Date Last Indicated Resolved Time CoV-Risk Comment:Neg covid 02/04/2023 02/04/2023 02/04/2023 3:01 PM E DT CoV-Risk 03/04/2023 03/04/2023 03/15/2023 1:22 AM EDT documented as of this encounter Care Teams Security Program Manager Relationship Specialty Start Date End Date Solange Jacobs MD [address] [place] [address] PCP - General Internal Medicine 08/26/17 documented as of this encounter Additional Source Comments The information contained in this document represents components of the legal health record. It is not the complete legal health record.[facility]
--- OUTSIDE RECORDS SUMMARY | 2025-02-21 12:41 | XMS_ITS | Encounter Summary ---
Author Organization [facility] Address [address] [place] [address] Phone Care Team Providers Care Cane Piler Name Role Phone Solange Jacobs MD Primary Care Provider [phone] Encounter Details Date Type Department Care Team (Late st Contact Info) Description 01/30/2023 Procedure Pass [facility], Ct Scan - [facility] [address] [place] [address] Social History Tobacco Use Types Packs/Day Years [...] documented as of this encounter Care Teams Cane Piler Relationship Specialty Start Date End Date Reynaldo, Solange Jacobo MD [address] [place] [address] Drive [address] [place] [phone] PCP - General Internal Medicine 08/26/17 documented as of this encounter Additional Source Comments The information contained in this document represents components of the legal health record. It is not the complete legal health record.[facility]
--- OUTSIDE RECORDS SUMMARY | 2025-02-21 12:41 | XMS_ITS | Encounter Summary ---
Author Organization [facility] Address [address] [place] [address] Phone Care Team Providers Care Gyroscopic Engineering Technician Name Role Phone Solange Jacobs MD Primary Care Provider [phone] Encounter Details Date Type Department Care Team (Late st Contact Info) Description 03/14/2022 Procedure Pass [facility] Admitting Dept Virtual Department [address] [place] [address] Social History Tobacco Use Types Packs/Day Years [...] documented as of this encounter Care Teams Gyroscopic Engineering Technician Relationship Specialty Start Date End Date Solange Jacobs MD [address] [place] [phone] PCP - General Internal Medicine 08/26/17 documented as of this encounter Additional Source Comments The information contained in this document represents components of the legal health record. It is not the complete legal health record.[facility]
--- OUTSIDE RECORDS SUMMARY | 2025-02-21 12:41 | XMS_ITS | Encounter Summary ---
Author Organization [facility] Address [address] [place] [address] Phone Care Team Providers Care Clean Out Driller Name Role Phone Solange Jacobs MD Primary Care Provider [phone] Reason for Referral * MRI/CAT Scan - Closed Specialty Diagnoses / Procedures Referred By Contac t Referred To Contact Radiology Diagnoses Pancreatic cyst Procedures MRI Cholangiopancreatography (MRCP) Oumou Moser PA [address] [place] [address] Phone: tel: fax: Referral ID Status Reason Start Date Expiration Date Visits Re quested Visits Authorized [id number] Closed 03/22/2024 03/22/2025 1 1 Encounter Details Date Type Department Care Team (Latest Contact Info) Description 03/22/2024 Transcribe Orders Virtual Department [address] [place] [address] Oumou Moser PA [address] [place] [address] Pancreatic cyst (Primary Dx) Social History Tobacco Use Types [...] documented as of this encounter Results * MRI CHOLANGIOPANCREATOGRAPHY (MRCP) WITH AND WITHOUT CONTRAST (05/05/2024 1:20 PM EST) Anatomical Region Laterality Modality Pancreas, Biliary Magnetic Reson ance 05/10/2024 8:59 AM EST Impressions 05/10/2024 9:13 AM EST 1. No solid mass or mural nodule associated with the multiple hepatic and pancreatic and renal cysts. 2. Small volume pelvic free fluid, interval change. Clinical correlation recommended. 3. Pancreatic cysts measuring up to 2.7 cm progressed since 2018; however similar dilated pancreatic duct measures up to 8 mm compared to 2018. Narrative 05/10/2024 9:13 AM EST MRI CHOLANGIOPANCREATOGRAPHY (MRCP) WITH AND WITHOUT CONTRAST Referring clinician's provided indication for this examination in [facility]: Outside Radiology Order; pancreatic cyst TECHNIQUE: Multiplanar MR imaging of the abdomen was performed using T1, T2, fat saturated, and diffusion weighted techniques. 2D and 3D MRCP sequences were performed. Dynamic multiphase imaging was also performed after administration of an intravenous gadolinium contrast agent. COMPARISON: CT ABDOMEN/PELVIS WITH CONTRAST FINDINGS: Lower Chest: Small hiatus hernia. Likely basilar atelectasis. Liver: Multiple small hepatic cysts without solid mass. No hepatic signal abnormality. Biliary: Similar favored reservoir effect following cholecystectomy. Spleen: Normal. No splenomegaly or focal lesions. Pancreas: Uncinate process simple cyst 2.7 cm series 3, image 33, enlarged since 2018. Atrophic tail, chronic. Other small pancreatic cysts. Dilated duct most prominent at the head 8 mm similar back to 2018 (3, 31). No peripancreatic inflammation. No solid mass or mural nodule. Adrenal Glands: Adenomatous thickening of both adrenals. Left adrenal 6 mm cyst (series 11,102, 59). Kidneys/Ureters: Multiple cysts. No hydronephrosis. No solid mass or mural nodule. Bowel: Small hiatus hernia. Suspected duodenal diverticulum. Colonic diverticulosis. No obstruction. Peritoneum/Retroperitoneum: Small volume pelvic free fluid, interval change. Clinical correlation recommended. Lymph Nodes: Normal. No lymphadenopathy. Vessels: Patent main portal vein. Severe atherosclerotic disease. No abdominal aortic aneurysm. Bones/Soft Tissues: Degenerative scoliosis. No destructive osseous lesion. Procedure Note Jonelle Yepez MD - 05/10/2024 MRI CHOLANGIOPANCREATOGRAPHY (MRCP) WITH AND WITHOUT CONTRAST Referring clinician's provided indication for this examination in [facility]:Outside Radiology Order; pancreatic cyst TECHNIQUE: Multiplanar MR imaging of the abdomen was performed using T1,T2, fat saturated, and diffusion weighted techniques. 2D and 3D MRCPsequences were performed. Dynamic multiphase imaging was also performedafter administration of an intravenous gadolinium contrast agent. COMPARISON: CT ABDOMEN/PELVIS WITH CONTRAST FINDINGS: Lower Chest: Small hiatus hernia. Likely basilar atelectasis. Liver: Multiple small hepatic cysts without solid mass. No hepatic signalabnormality. Biliary: Similar favored reservoir effect following cholecystectomy. Spleen: Normal. No splenomegaly or focal lesions. Pancreas: Uncinate process simple cyst 2.7 cm series 3, image 33, enlargedsince 2018. Atrophic tail, chronic. Other small pancreatic cysts. Dilatedduct most prominent at the head 8 mm similar back to 2018 (3, 31). Noperipancreatic inflammation. No solid mass or mural nodule. Adrenal Glands: Adenomatous thickening of both adrenals. Left adrenal 6 mmcyst (series 11,102, 59). Kidneys/Ureters: Multiple cysts. No hydronephrosis. No solid mass or muralnodule. Bowel: Small hiatus hernia. Suspected duodenal diverticulum. Colonicdiverticulosis. No obstruction. Peritoneum/Retroperitoneum: Small volume pelvic free fluid, intervalchange. Clinical correlation recommended. Lymph Nodes: Normal. No lymphadenopathy. Vessels: Patent main portal vein. Severe atherosclerotic disease. Noabdominal aortic aneurysm. Bones/Soft Tissues: Degenerative scoliosis. No destructive osseouslesion. IMPRESSION: 1. No solid mass or mural nodule associated with the multiple hepatic andpancreatic and renal cysts. 2. Small volume pelvic free fluid, interval change. Clinical correlationrecommended. 3. Pancreatic cysts measuring up to 2.7 cm progressed since 2018; howeversimilar dilated pancreatic duct measures up to 8 mm compared to 2018. us Oumou ARELLANO IMG MR ABDOMEN Final Resul t documented in this encounter Visit Diagnoses Diagnosis Pancreatic cyst- Primary Cyst and pseudocyst of pancreas Pancreatic cyst Cyst and pseudocyst of pancreas documented in this encounter Care Teams Clean Out Driller Relationship Specialty Start Date End Date Po, Solange Jacobo MD [address] [place] [place] [address] Drive [address] [place] [address] PCP - General Internal Medicine 08/26/17 documented as of this encounter Additional Source Comments The information contained in this document represents components of the legal health record. It is not the complete legal health record.[facility]
--- OUTSIDE RECORDS SUMMARY | 2025-02-21 12:41 | XMS_ITS | Encounter Summary ---
Author Organization [facility] Address [address] [place] [address] Phone Care Team Providers Care Dietetics Teacher Name Role Phone Solange Jacobs MD Primary Care Provider [phone] Encounter Details Date Type Department Care Team (Late st Contact Info) Description 04/23/2020 Procedure Pass [facility], Ct Scan - [facility] [address] [place] [address] Social History Tobacco Use Types Packs/Day Years [...] documented as of this encounter Care Teams Dietetics Teacher Relationship Specialty Start Date End Date Solange Jacobs MD [address] [place] [phone] PCP - General Internal Medicine 08/26/17 documented as of this encounter Additional Source Comments The information contained in this document represents components of the legal health record. It is not the complete legal health record.[facility]
--- OUTSIDE RECORDS SUMMARY | 2025-02-21 12:41 | XMS_ITS | Encounter Summary ---
Author Organization [facility] Address [address] [place] [address] Phone Care Team Providers Care Stockholder Name Role Phone Solange Jacobs MD Primary Care Provider [phone] Encounter Details Date Type Department Care Team (Late st Contact Info) Description 10/10/2022 Procedure Pass [facility], Ct Scan - [facility] [address] [place] [address] Social History Tobacco Use Types Packs/Day Years [...] documented as of this encounter Care Teams Stockholder Relationship Specialty Start Date End Date Solange Jacobs MD [address] [place] [address] PCP - General Internal Medicine 08/26/17 documented as of this encounter Additional Source Comments The information contained in this document represents components of the legal health record. It is not the complete legal health record.[facility]
--- OUTSIDE RECORDS SUMMARY | 2025-02-21 12:41 | XMS_ITS | Clinical Summary ---
Author Organization [facility] Address [address] [place] [phone] Phone Care Team Providers Care Range Mounter Name Role Phone Solange Jacobs MD Primary Care Provider [phone] Allergies Active Allergy Reactions Criticality Noted Date Comments Risedronate 08/26/2017 Aspirin Other (See Comments) 08/26/2017 GI bleeding Cefuroxime Sodium 03/10/2021 Tolerated piperacillin/tazobac reese and amoxicillin/clavulan ate during 10/06/22 admission. Also tolerated cephalexin 06/05/18. Celecoxib Other (See Comments) 08/26/2017 GI bleeding Ciprofloxacin 03/10/2021 Metformin 03/10/2021 Sertraline Unknown 09/17/2021 Sulfa (Sulfonamide Antibiotics) 06/24/2019 Medications NIFEdipine (ADALAT CC) 60 MG 24 hr tablet Take 60 mg by mouth daily. Active zolpidem (AMBIEN) 5 MG tablet Take 5 mg by mouth nightly as needed. Active albuterol 90 mcg/actuation inhaler Inhale 2 puffs into the lungs every 4 (four) hours as needed. Active cyanocobalamin (VIT B-12) 1000 MCG tablet Take 1,000 mcg by mouth daily. Active folic acid (FOLVITE) 1 MG tablet Take 1 mg by mouth daily. Active montelukast (SINGULAIR) 10 mg tablet Take 10 mg by mouth nightly. Active cholecalcifero l (VITAMIN D3) 25 MCG (1,000 unit) tablet Take 1,000 Units by mouth daily. 0 Active metoprolol succinate (TOPROL-XL) 100 MG 24 hr tablet Take 100 mg by mouth daily. Active ALPRAZolam (XANAX) 0.25 MG tablet Take 0.25 mg by mouth daily as needed for anxiety. 2 Active pregabalin (LYRICA) 100 MG capsule Take 100 mg by mouth 2 (two) times a day. Active apixaban (ELIQUIS) 2.5 mg Take 1 tablet (2.5 mg total) by mouth 2 (two) times a day. 60 tablet 1 3 Active dexlansoprazol e delayed release (DEXILANT) 60 mg capsule Take 60 mg by mouth daily. Active polyethylene glycol (MIRALAX) 17 gram packet Take 17 g by mouth daily as needed for mild constipation. 30 packet 1 3 Active Additional Information Patient not taking.Reported on 03/24/2023 docusate sodium (COLACE) 100 MG capsule Take 1 capsule (100 mg total) by mouth 2 (two) times a day. 60 capsule 1 3 Active olmesartan (BENICAR) 40 mg tablet [The details of the medication are not available because there are pending changes by a home health clinician.] 3 Active Additional Information Patient not taking.Informant: Self, Reported on 02/26/2023 furosemide (LASIX) 20 MG tablet Take 2 tablets (40 mg total) by mouth daily. 60 tablet 3 Active atorvastatin (LIPITOR) 40 MG tablet Take 40 mg by mouth daily. 3 Active diclofenac sodium (VOLTAREN) 1 % Gel Apply 4 g topically 4 (four) times a day. Apply to single knee, ankle, foot, for foot includes sole/toes/top of foot 3 Active diclofenac sodium (VOLTAREN) 1 % Gel Apply 4 g topically 4 (four) times a day as needed for other (free text field) (for arthrtic pain). 3 Active methylcellulos e (CITRUCEL, SUCROSE,) oral powder Take 2 g by mouth daily as needed (take as needed to add fiber for bowel movement). 3 Active ASCORBIC ACID WITH RONNI HIPS 500 MG tablet Take 500 mg by mouth daily. 3 Active CHOLESTYRAMINE LIGHT 4 gram Powd PLEASE SEE ATTACHED FOR DETAILED DIRECTIONS 3 Active ferrous sulfate 325 mg (65 mg [place] iron) tablet TAKE 1 TABLET BY MOUTH EVERY DAY *OTC NT CVD* 3 Active sertraline (ZOLOFT) 25 MG tablet Take 25 mg by mouth daily. 10/18/19 23 Discontin ued(No longer taking) Active Problems Problem Noted Date Diagnosed Date Asthma 02/05/2023 Assessment & Plan (02/05/2023 7:51 AM EDT): - Asthma and COPD - Continue Duonebs PRN and montelukast CHF exacerbation 02/04/2023 Assessment & Plan (02/05/2023 7:49 AM EDT): Patient presenting 1 day history of progressive shortness of breath, suspected decompensated diastolic heart failure in setting of recent blood transfusion and IVF for lower GI bleed. Recent echo showed preserved EF 60-65% but evidence of grade 2 diastolic dysfunction. Not on chronic diuretics. Significantly elevated BNP at 3318 and evidence of increased pleural effusion on CXR. Hypoxic requiring 4 L O2. - Age-adjusted D-dimer was negative - Trop 25/27 on admission - CXR 02/03 Interval increase in small pleural effusions. - Monitor on telemetry - Daily weights and strict ins and outs - Continue IV Lasix 20 mg BID - Repeat CBC and BMP/Mg in the morning - Wean O2 as tolerated keep SPO2 greater than 92% Hypokalemia 02/04/2023 Assessment & Plan (02/05/2023 7:49 AM EDT): - Hypokalemia on Furosemide - Supplement as needed Hypomagnesemia 02/04/2023 Assessment & Plan (02/05/2023 7:49 AM EDT): - Hypomagnesemia on Furosemide - Supplement as needed Hiatal hernia with GERD 01/29/2023 Assessment & Plan (01/29/2023 2:31 AM EDT): We will give twice daily PPI. 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 POC ACHS and low dose insulin sliding scale. A1C 6.5 on 09/2022 Assessment & Plan (01/29/2023 2:31 AM EDT): Will give as needed lispro. Diverticulitis of jejunum 10/06/2022 Assessment & Plan (10/14/2022 3:47 PM EDT): Finding noted on CT Patient has chronic abdominal symptoms but this acute pain is likely due to acute diverticulitis -Continue Augmentin (day 4), for 10-14 day course per GI. -Tolerating clear liquid diet, will advance diet. -Nutrition evaluation appreciated Paroxysmal atrial fibrillation 10/06/2022 Assessment & Plan (02/05/2023 7:48 AM EDT): Rate and rhythm control. - Continue metoprolol for rate control - As noted on discharge, patient should have resumed her Eliquis 2.5 mg BID - paroxysmal atrial fibrillation diagnosed in September 2022: Most likely cause of her 3 prior TIAs - Per Cardiology: plan for referral to Dr. Hopson for consideration of watchman as she does have anemia and history of GI bleeds. If she has more bleeding stop the Eliquis. Assessment & Plan (01/29/2023 2:32 AM EDT): Hold Eliquis in the setting of lower GI bleed. Lower GI bleed 03/14/2022 Assessment & Plan (02/05/2023 10:19 AM EDT): No further episodes of bright red blood per rectum. Recent sigmoidoscopy on 01/31 without evidence of ongoing bleeding. Suspect diverticular versus hemorrhoidal. Eliquis was supposed to resume at the time of discharge along with starting daily stool softener. Hemodynamically stable. - Per pt she did not resume Eliquis on discharge she was told to follow up with her PCP (Russ/C Summary Med Rec and GI consult say to resume - Per GI consult on prior admission: No objection to resuming Eliquis, if blood counts are stable. - Trend CBC Hgb 8.6 today stable at baseline - Continue Eliquis and monitor CBC Assessment & Plan (01/31/2023 10:31 AM EDT): Given the painless nature and bright red blood this is likely diverticular. We will hold Eliquis. We will monitor hemoglobin BID Hold antihypertensives GI following. 01/31: GI recommending enema prep today with plan for sigmoidoscopy to r/o bleeding hemorrhoids this afternoon. Anticipate keep patient overnight to monitor hgb, dc tomorrow if Hgb stable. Assessment & Plan (08/01/2022 12:11 PM EST): She has a history of GI bleed and was admitted in March 2022. She had an upper endoscopy that showed a small hiatal hernia and nonbleeding reflux esophagitis. Colonoscopy performed at that time showed diverticulosis on the left which was thought to be the source of her bleeding. She had been on Plavix for history of TIA. Plavix was discontinued temporarily and restarted over the past few months. About 5 days prior to admission, she had an episode of dark blood per rectum. She has not had recurrent episode while in the hospital. Her current hemoglobin is 9.9, down from 11.2 on admission. BM this morning that was dark but no dani blood She was seen by Dr. Richter who recommends watchful waiting. H&H is stable. She develops profuse bleeding, contact GI for possible flex sig. -Continue to hold Plavix, used for history of stroke Will discuss with GI about resuming this -Repeat CBC in the morning -If hemoglobin has dropped for recurrent bleeding, will consult GI Advance diet Assessment & Plan (03/15/2022 2:41 PM EDT): While she is not anemic currently her hemoglobin has dropped 3 points from prior outpatient studies. CT scan without active extravasation. Gi consult appreciated Colonoscopy revealed diverticulosis, no active bleeding Will discontinue plavix for at least a week -- was placed on it at the time of a possible TIA due to cerebral and carotid atherosclerosis May benefit from a return visit to neurology to discuss need for ongoing antiplatelet agents Chronic abdominal pain 08/27/2017 Assessment & Plan (08/27/2017 4:51 AM EDT): She has had ongoing abdominal pain and diarrhea for well over a year. She does not follow routinely with a GI doctor. Possibly Dr. Mills (?) from time to time (Suzanne?). ED doc suspected colitis because of her leukocytosis but CT scan does not show evidence of this or other cause of her abdominal pain. She has had work up to include upper and lower scopes as well, and has known hiatal hernia and GERD, as well as previous gastritis; previous GI bleeding with NSAIDS; internal and external hemorrhoids. Her pain could be reflux or gastritis in the setting of PPI being stopped recently. Will use different PPI (protonix IV for now). I have not consulted GI. Will add cholestyramine and hold metformin in an attempt to see if either change helps with her diarrhea. Chronic obstructive pulmonary disease Assessment & Plan (08/01/2022 12:10 PM EST): Breathing more comfortable at baseline, but cough is still bothersome -Continue prednisone -Continue schedule DuoNeb -Continue Mucinex -Continue empiric doxycycline x5 days -O2 to maintain sats between 88 and 92% Assessment & Plan (05/24/2021 6:10 PM EST): No active bronchospasm or hypoxia. Albuterol MDI is ordered as needed. Continue Singulair nightly. Essential hypertension Assessment & Plan (02/05/2023 7:47 AM EDT): Continue home nifedipine and metoprolol with holding parameters. Assessment & Plan (07/30/2022 6:12 PM EST): Her blood pressures been on the low side today. Her home medications were reviewed. -Parameters to hold for SBP less than 120 were placed on her antihypertensive medications. Assessment & Plan (03/14/2022 3:05 AM EDT): Hemodynamically stable. I will continue her home medications with hold parameters. Assessment & Plan (05/25/2021 4:58 PM EST): Blood pressure well controlled on home meds Continue metoprolol, nifedipine, and olmesartan as prescribed (losartan will be substituted on formulary here for olmesartan). Monitor blood pressure, renal function is stable. Resolved Problems Problem Noted Date Diagnosed Date Resolved Date Hypoxia 07/31/2022 01/29/2023 Hypoxia 07/29/2022 07/30/2022 Stuttering 05/24/2021 01/29/2023 Assessment & Plan (05/25/2021 4:56 PM EST): The patient presents with generalized weakness and stuttering, without acute focal deficits on my neurologic exam other than mild dysarthria and possibly mild aphasia. NIHSS score is 2. Head CT without acute pathology and CT angiogram of the head and neck without retrievable thrombus or significant stenosis. MRI -No acute infarct, mass lesion or hemorrhage. Stuttering worsens with dry mouth and anxiety. No evidence that stroke/tia is the cause. My concern is that this is anxiety mediated. - F/u ESR/CRP, TSH, and hemoglobin A1c -Continue Plavix 75 mg daily -Continue simvastatin 40 mg nightly, check lipid panel -Continue blood pressure medications as prescribed -Teleneurology input appreciated, will follow up after above studies are resulted - PT/OT evaluations -PATCH PRESS OPERATOR evaluation, patient has passed a bedside nursing swallow evaluation and will be allowed to have a cardiac, diabetic prudent diet -psych consult 11. Consider psychiatric evaluation if medical work-up as above is unrevealing Gastritis without bleeding 06/24/2019 0 06/25/2019 Assessment & Plan (06/25/2019 12:07 AM EST): Stop antibiotics .continue home PPI and full liquid diet Expect she will be able to go home after breakfast. Hypoxemia 08/27/2017 06/25/2019 Assessment & Plan (08/27/2017 4:26 AM EDT): This is mild and multifactorial: she has COPD (not normally on oxygen at home but has been in the past); she is obese and describes sometimes feeling SOB when she lays down (OHS); she was receiving morphine throughout her 12 hour ER visit for abdominal pain and intermittently was asleep. She has atelectasis on her CXR. All of that to say, I'm not sure how clinically significant this hypoxemia really was. Will order IS, discussed coughing and deep breathing, and ordered ambulation with staff. Accept O2 sat of 90% or better. Will attempt to wean off oxygen. Acute cystitis 08/27/2017 06/25/2019 Assessment & Plan (06/25/2019 12:06 AM EST): Appears liekly resolved, or perhaps was never an infection.. She denies any burning, she has chronic frequency/urgency (incontince).. But this is not a change. At any rate we will not give further antibiotics I have requested the culture from Suzanne to guide were she to get sick Assessment & Plan (08/27/2017 4:31 AM EDT): Unclear if she is having new urinary symptoms (vague historian); admits to frequency, and symptoms of her vaginal prolapse (alternating incontinence and retention of urine). She has leukocytosis, chills, and an abnormal UA. I will give her Bactim and await cultures. Family History Medical History Relation Comments Cancer Father Multiple sclerosis Mother Relation Status Comments Daughter Alive Father Mother Sister Alive Son Alive Social History Tobacco Use Types Packs/Day Years Used Date Smoking Tobacco: Former Cigarettes 2 20 0 06/02/1977 - 06/02/1997 Smokeless Tobacco: Never Tobacco Cessation:Counseling Given: Not Answered Alcohol Use Standard Drinks/Week Comments No 0 [...] Orientation Straight 08/26/2017 4: 48 PM EDT Last Filed Vital Signs Vital Sign Reading Time Taken Comments Blood Pressure 135/62 08/02/2023 5:00 PM EST Pulse 85 08/02/2023 5:00 PM EST Temperature 36.7 C (98.1 F) 08/02/2023 5:00 PM EST Respiratory Rate 18 08/02/2023 5:00 PM EST Oxygen Saturation 93% 08/02/2023 5:00 PM EST Inhaled Oxygen Concentration - - Weight 63.5 kg (140 lb) 04/28/2024 1:12 PM EST Height 149.9 cm (4' 11 ) 04/28/2024 1:12 PM EST Body Mass Index 28.28 04/28/2024 1:12 PM EST Plan of Treatment Health Maintenance Due Date Last Done Comments Adult Td,Tdap Booster 1937 DEPRESSION SCREENING 1949 PNEUMOCOCCAL VACCINES (50+ years) (1 of 2 - PCV) 1956 ZOSTER VACCINES (1 of 2) 1987 OSTEOPOROSIS SCREENING INITIAL (ONE-TIME) 2002 RSV VACCINE (1 - 1-dose 75+ series) 2012 DIABETIC EYE EXAM 10/18/2020 INFLUENZA VACCINE (#1) 2024 COVID-19 VACCINE (2 - 2024- season) 2025 05/18/2021 HEMOGLOBIN A1C 05/11/2025 11/09/2024, 05/0 12/2022, 02/14/2022, Additional history exists CREATININE LEVEL 11/09/2025 11/09/2024, , 08/02/2023, Additional history exists POTASSIUM LEVEL 11/09/2025 11/09/2024, 11/30, 08/02/2023, Additional history exists HEPATITIS A VACCINES Aged Out No long er eligible based on patient's age to complete this topic HIB VACCINES Aged Out No longer eligi ble based on patient's age to complete this topic MENINGOCOCCAL VACCINES (ACWY) Aged Out No longer eligible based on patient's age to complete this topic MENINGOCOCCAL VACCINES (B) Aged Out N o longer eligible based on patient's age to complete this topic Medical Devices Not on file Procedures Procedure Name Priority Date/Time Associated Diagnosis Comments HEMOGLOBIN A1C Routine 11/09/2024 9:36 AM EDT Inadequately controlled diabetes mellitus Type 2 diabetes mellitus with stage 3a chronic kidney disease, without long-term current use of insulin COMPREHENSIVE METABOLIC PANEL Routine 11/09/2024 9:36 AM EDT Inadequately controlled diabetes mellitus Type 2 diabetes mellitus with stage 3a chronic kidney disease, without long-term current use of insulin from Last 3 Months or Most Recently Relevant to Health Maintenance Results * (ABNORMAL) Comprehensive metabolic panel (11/09/2024 9:36 AM EDT) SODIUM 137 133 - 146 mmol/L [facility] POTASSIUM 3.8 3.3 - 5.1 mmol/L [facility] CHLORIDE 100 96 - 108 mmol/L [facility] CO2 26 21 - 35 mmol/L [facility] BUN 14 6 - 19 mg/dL [facility] CREATININE 0.90 0.5 - 1.5 mg/dL [facility] GLUCOSE 177(H) 70 - 99 mg/dL [facility] ALBUMIN 3.8(L) 3.9 - 4.8 g/dL [facility] TOTAL PROTEIN 7.2 6.5 - 8.0 g/dL [facility] CALCIUM 9.7 8.4 - 10.3 mg/dL [facility] ALKALINE PHOSPHATASE 138(H) 39 - 117 U/L [facility] TOTAL BILIRUBIN 0.9 0.0 - 1.2 mg/dL [facility] AST 21 0 - 37 U/L [facility] ALT 13 0 - 40 U/L [facility] GLOBULIN 3.4 1 - 4.8 g/dL [facility] EGFR 62 >59 mL/min/1.7 3m2 [facility] Comment:Estimated glomerular filtration rate calculated using the CKD-EPI refit equation. ANION GAP 15 10 - 20 mmol/L [facility] Blood 11/09/2024 9:36 AM EDT 11/09/2024 9:45 AM EDT Solange Jacobs MD LAB BLOOD ORDERABLES Final Re sult Performing Organization Address [facility] de Phone Number [address] [phone] * (ABNORMAL) Hemoglobin A1c (11/09/2024 9:36 AM EDT) HEMOGLOBIN A1C 7.8(H) 4.3 - 5.8 % [facility] Blood 11/09/2024 9:36 AM EDT 11/09/2024 9:45 AM EDT Solange Jacobs MD LAB BLOOD ORDERABLES Final Re sult Performing Organization Address [facility] Co de Phone Number [address] [phone] from Last 3 Months or Most Recently Relevant to Health Maintenance Insurance [address] [place] [address] MEDICARE PART A & [place] [address] [address] [place] [address] MEDICARE PART A & [place] [address] MEDICARE PART A & B [facility] Address: [facility] OFFICE [facility] COMMUNITY [facility]ARE ATTN:[facility] CLAIMS [address] [address] [place] [address] MEDICARE PART A & B [facility] [place] [address] MEDICARE PART A & B [facility] [place] [address] MEDICARE PART A & [place] [address] [address] [place] [address] MEDICARE PART A & [place] [address] MEDICARE PART A & B [facility] [place] [address] MEDICARE PART A & B [facility] [place] [address] Advance Directives For more information, please contact: [phone] (9AM - 5PM [place], Friday-Friday) Documents on File Type Date Recorded Patient Director Of Community Education Expl anation Healthcare Proxy 08/28/2017 1:28 PM * Full Code (Latest Code Status on File) Date Activated Date Inactivated Comments 02/04/2023 3:19 AM Question Answer Comments Code Status Confirmed With: Patient Code Status Communicated To: Inpatient Attending * Full Code Date Activated Date Inactivated Comments 01/29/2023 2:43 AM 02/04/2023 3:19 AM Question Answer Comments Code Status Confirmed With: Patient * Full Code Date Activated Date Inactivated Comments 10/07/2022 2:02 AM 01/29/2023 2:43 AM Question Answer Comments Code Status Confirmed With: Patient * Full Code Date Activated Date Inactivated Comments 07/29/2022 8:47 PM 10/07/2022 2:02 AM Question Answer Comments Code Status Confirmed With: Patient * Full Code Date Activated Date Inactivated Comments 03/14/2022 3:46 AM 07/29/2022 8:47 PM Question Answer Comments Code Status Confirmed With: Patient Healthcare Agents on File Name Relationship Healthcare Agent Relationship Communication Lili Palma Sister .Primary Health Care Agent (Proxy form on file) Yen Lincoln Daughter Alternate Health care Agent (Proxy form on file) Care Teams Range Mounter Relationship Specialty Start Date End Date Solange Jacobs MD [address] [place] [phone] PCP - General Internal Medicine 08/26/17 Additional Source Comments The information contained in this document represents components of the legal health record. It is not the complete legal health record.[facility]
--- OUTSIDE RECORDS SUMMARY | 2025-02-21 12:41 | XMS_ITS | Encounter Summary ---
Author Organization [facility] Address [address] [place] [address] Phone Care Team Providers Care Portable Pinch Riveter Name Role Phone Solange Jacobs MD Primary Care Provider Encounter Details Date Type Department Care Team (Late st Contact Info) Description 11/09/2024 Transcribe Orders [facility] [address] [place] [address] Solange Jacobs MD [address] [place] [phone] Social History Tobacco Use Types Packs/Day Years [...] on filedocumented in this encounter Care Teams Portable Pinch Riveter Relationship Specialty Start Date End Date Solange Jacobs MD [address] [place] [address] [place] [phone] PCP - General Internal Medicine 08/26/17 documented as of this encounter Additional Source Comments The information contained in this document represents components of the legal health record. It is not the complete legal health record.[facility]
--- OUTSIDE RECORDS SUMMARY | 2025-02-21 12:41 | XMS_ITS | Encounter Summary ---
Author Organization [facility] Address [address] [place] [phone] Phone Care Team Providers Care Road Monkey Name Role Phone Solange Jacobs MD Primary Care Provider [phone] Encounter Details Date Type Department Care Team (Late st Contact Info) Description 08/26/2017 Procedure Pass [facility], Ct Scan - [facility] [address] [place] [address] Social History Tobacco Use Types Packs/Day Years Used Date Smoking Tobacco: Former Smokeless Tobacco: Never Alcohol Use Standard Drinks/Week [...] documented as of this encounter Care Teams Road Monkey Relationship Specialty Start Date End Date Solange Jacobs MD [address] [place] [address] [place] [phone] PCP - General Internal Medicine 08/26/17 documented as of this encounter Additional Source Comments The information contained in this document represents components of the legal health record. It is not the complete legal health record.[facility]
--- OUTSIDE RECORDS SUMMARY | 2025-02-21 12:41 | XMS_ITS | Encounter Summary ---
Author Organization [facility] Address [address] [place] [phone] Phone Care Team Providers Care Editor & Co Founder Name Role Phone Solange Jacobs MD Primary Care Provider [phone] Encounter Details Date Type Department Care Team (Late st Contact Info) Description 08/05/2019 Ancillary Orders [facility], X-Ray - [address] [address] Bee Barnes MD [address] [place] [phone] [email or web address] Pain Social History Tobacco Use Types Packs/Day [...] encounter Results * XR Sacrum and Coccyx (08/05/2019 12:45 PM EST) Anatomical Region Laterality Modality L-spine Radiographic Rianna ging 08/05/2019 12:5 7 PM EST Impressions 08/05/2019 12:59 PM EST 1. No findings to account for the patient's coccygeal pain. 2. Stable osteopenia and lower lumbar spine disc disease. POS - [id number] Narrative 08/05/2019 12:59 PM EST HISTORY: As above. Pain. No trauma. COMPARISON: 07/16/2019. SACRUM & COCCYX RADIOGRAPH FINDINGS: Six obtained. Stable osteopenia. No acute fracture or malalignment. Stable severe L4-5 and moderate L3-4 and L5-S1 disc disease, endplate spurring with facet arthropathy. No destructive bone lesions. Multiple pelvic surgical clips are unchanged. Procedure Note Ryland Cid MD - 08/05/2019 HISTORY: As above. Pain. No trauma. COMPARISON: 07/16/2019. SACRUM & COCCYX RADIOGRAPH FINDINGS: Six obtained. Stable osteopenia. No acute fracture or malalignment. Stable severe L4-5and moderate L3-4 and L5-S1 disc disease, endplate spurring with facetarthropathy. No destructive bone lesions. Multiple pelvic surgical clipsare unchanged. IMPRESSION: 1. No findings to account for the patient's coccygeal pain. 2. Stable osteopenia and lower lumbar spine disc disease. POS - [id number] Bee Barnes MD IMG XR SPINE Final Result documented [...] documented as of this encounter Care Teams Editor & Co Founder Relationship Specialty Start Date End Date Solange Jacobs MD [address] [place] [phone] PCP - General Internal Medicine 08/26/17 documented as of this encounter Additional Source Comments The information contained in this document represents components of the legal health record. It is not the complete legal health record.[facility]
[2025-02-21 13:24] LABS: ~Lactic Acid-LAB USE ONLY 1.4 mmol/L (0.5-2.0)
--- NOTE | 2025-02-21 13:48 | PC.NURSE ---
ed provider at bedside, assessed 2nd toe on left foot which is red and lightly swollen. per MD Fisher no need for XR pt is a 1 assist to commode
[2025-02-21 15:45] VITALS: BP 199/94; PULSE 85; RESP 16; TEMP 36.4; O2SAT 97
[2025-02-21] MEDS: Magnesium Hydrox/Alum Hydrox 30 ML ORAL.SUSP 15 ML PO (16:24)
[2025-02-21 16:40] VITALS: BP 199/94; PULSE 85; O2SAT 97
--- NOTE | 2025-02-21 20:34 | PC.NURSE ---
Pt c/o back pain, continue to await pharmacy med reconciliation
--- NOTE | 2025-02-21 20:48 | PHA.MEDREC ---
Addendum entered by Radha Charlton RPh 02/21/25 21:00: Reviewed by [facility] Original Note: Pharmacy Consult ? Medication Reconciliation Pharmacy reviewed med rec done by nursing. Got list from pt VNA service and verified med rec with list and utilized claims to confirm Alprazolam filled 02/01 for 20 days and Famotidine filled 12/30 for 90 days; added those from recent claims but not on VNA med list. Added Meclizine 12.5mg 1 TID prn dizziness, Guaifenesin 600mg 1 Q12H prn cough, Albuterol Inh 1 QID Prn SOB/Wheezing and Emplafliflozin 25mg 1 QD from VNA list and took off Clotrimazole, Diclofenac, Glycerin (Children), Lidocaine patches and Sitagliptin since they have not been filled for a while or at all in claims and they were not apart of VNA list.
--- NOTE | 2025-02-21 21:10 | PC.NURSE ---
RN assumed care at 2109, currently getitng report via phone from RN in overflow as pt is coming from there. med rec is complete RN to medicate pt. Rehab/halfway is the possible plan for pt. Will continue to monitor pt throughout shift.
--- NOTE | 2025-02-21 21:17 | HO.NURTONUR ---
Nurse report given over phone to RN
--- NOTE | 2025-02-21 21:51 | MHC.CM.ED ---
CM met with patient. She seems to have a poor memory. She has been ill at home with vomiting for a day. She tells CM that she lives alone and uses a walker. Pt tells CM that her children live in [place]. PT recommends STR. Pt does not have a Q.S. Pt was at [facility] in 11/2024. Pt did have HVNA, however family states it is complete. HCP is on file. HCP #1 is Lili Palma (sister) [phone]. Emergency contact is her son Enrique ([place])[phone] and son Efren ([place]) [phone]. CM [address] acute referrals. CM spoke with Enrique. They do not have funds for private pay. They are aware that Medicare will pay for home PT. Enrique tells CM that he has been trying to contact [facility] for home services, but has not had a return call. He would like more home services for his mother. CM will reach out to [facility] in the morning. Enrique is the contact. CM eventually had a conference call with both Enrique and Efren. They are both agreeable to acute referrals, [facility] referrals and possible [facility] for home PT if no acute bed offers. Enrique states he was visiting in November and his mother was independent.
[2025-02-21 22:30] VITALS: BP 162/68; PULSE 106; RESP 16; TEMP 36.2; O2SAT 95
[2025-02-22 05:34] VITALS: BP 156/76; PULSE 91; RESP 18; TEMP 36.4; O2SAT 95
--- NOTE | 2025-02-22 07:16 | PC.NURSE ---
Addendum entered by Anastasia Bullard RN 02/22/25 07:39: Evauated by PT: LIVES ALONE. WAS HAVING PT/OT AT HOME. RECOMMEND STR UPON DC TO HELP WITH OVERALL STRENGTH AND FUNCTIONAL MOBILITY Addendum entered by Anastasia Bullard RN 02/22/25 07:35: Patient is a 89 yo female with history of COPD/asthma, aortic stenosis, right sided pleural effusion, paroxysmal afib, HTN, DM w/ neuropathy, TIA, insomnia, urinary incontinence, hx UTI presenting with reports of nausea and vomiting, lives by herself has VNA, her neighbor called EMS as she has apparently off her baseline, patient is aware that she is at [facility] not able to recall the year, told me that her son lives in [place] and was recently visiting her, she is very anxious tachypneic and although she is alert she is somewhat of a limited historian due to her delirium versus anxiety. Patient alert and cooperative with care. Lungs essentially clear bilat. Respirations even and non-labored. Abdomen soft, non-tender with positive bowel sounds. Able to tolerate breakfast. c/o back/coccyx pain. Positive pedal pules with no edema Original Note: PMH: Contusion of second toe of left foot Diarrhea Constipation Weakness Dizziness and giddiness Weakness Yeast infection of the skin Exercise hypoxemia Acute respiratory failure with hypoxia Lipoma of lower back Urinary incontinence Cystitis Acute urinary retention Acute diverticulitis of intestine Generalized abdominal pain Diverticular disease Nausea & vomiting Failure to thrive in adult TSH elevation CHF (congestive heart failure) Atrial fibrillation with RVR Atrial fibrillation with RVR Type 2 diabetes mellitus with hyperglycemia Diabetes mellitus Asthma Hypokalemia Hypomagnesemia Hearing difficulty Dyspnea on exertion History of gastrointestinal diverticular hemorrhage COVID-19 virus infection Rectal bleeding Medicare annual wellness visit, initial Hip pain, left Patellar sleeve fracture of right knee Knee pain, right Nausea and vomiting Coarse tremors Shoulder pain, right Hospital discharge follow-up Mass on back Tinea corporis Nausea Right wrist pain Left knee pain Left hip pain Toe pain, left Breast cancer screening by mammogram
[2025-02-22 07:19] VITALS: BP 158/87; PULSE 100; RESP 20; TEMP 36.2; O2SAT 95
--- NOTE | 2025-02-22 09:07 | MHC.CM.ED ---
Addendum entered by Veronica Patricio 02/22/25 09:55: Received notification from [facility] that they are not contracted with insurance. Spoke with Maggi about bed offers. [facility] is now 1st choice. [facility] made aware and asked to obtain ins auth. Original Note: Patient remains in ER overflow. [facility] are not able to offer a bed. [facility] is still reviewing. Continue to moniotr for d/c needs.
--- NOTE | 2025-02-22 10:28 | MHC.CM.ED ---
Patient remains in ER overflow. [place] are not able to offer a bed. [facility] is still reviewing. Continue to moniotr for d/c needs.
[2025-02-22] MEDS: Umeclidinium/Vilanterol 62.5/25 BLST.W.DEV 1 PUFF INHALE (11:19)
[2025-02-22] MEDS: Metoprolol Succinate ER 50 MG TAB.ER.24H PO (11:19)
--- NOTE | 2025-02-22 12:36 | MHC.CM.ED ---
Addendum entered by Veronica Patricio 02/22/25 13:53: Per Massiel RN, patient has been transferring from bed to commode. Original Note: Received notification [facility] is unable to offer a bed. Received telephone call from patient's son, Enrique. T/W explained no acute rehab beds offered. Also explained pateint was not able to ambulate well with physical therapy. Also explained patient has not walked today. Patient lives home alone. Home with resumption of HVNA and private pay home health aides vs private pay SNF discussed. Enrique is unsure of patient's finances because my brother deals with that. Enrique unwilling to provide Efren's telephone number because he's not available today. T/W explained it is unrealistic for patient to remain in the ER. Enrique upset that patient can't be admitted because she is unable to walk. T/W explained Medicare regulations in regards to inpatient level of care. Enrique will speak with his brother about a safe d/c plan and contact . Continue to monitor for d/c needs.
[2025-02-22 14:00] VITALS: BP 142/70; PULSE 92; RESP 18; TEMP 36.3; O2SAT 95
--- NOTE | 2025-02-22 21:50 | PC.NURSE ---
patient up and ambulatory to bathroom w/ steady gait using walker
[2025-02-22 21:56] VITALS: BP 133/70; PULSE 96; RESP 18; TEMP 36.1; O2SAT 95
--- NOTE | 2025-02-22 22:29 | PC.NURSE ---
patient sleeping, skin pale, warm, dry. resp even and non labored. appears comfortable
--- NOTE | 2025-02-22 22:33 | MHC.CM.ED ---
JASE received telephone call from Yazmin De Jesus at [facility]. ([phone]). She spoke with Enrique about their services and need to set up an interview. Yazmin requests a telephone call when patient is discharged so she can reach out to see the patient in her apartment. JASE spoke with Overflow RN regarding patient. Pt is ambulating with assist to commode and ambulated in hallway with staff. Pt had a visitor-her neighbor who helps her. Krystin Millan is willing to help patient at home. Sons did not call JASE jacobsen. Will have to reach out to them in the morning, as a pm discharge in not in this patients best interest and JASE is unsure if sons will agree to private pay for STR or home help.
--- NOTE | 2025-02-23 05:06 | PC.NURSE ---
0500 Pt sleeping in naps throughout the night. Alert, oriented to person consistently but is forgetful to place and time. Pleasant, cooperative with care. Ambulating to bathroom with a walker standby assistance. VSS.
[2025-02-23 07:32] VITALS: BP 147/76; PULSE 87; RESP 16; TEMP 36.4; O2SAT 91
[2025-02-23] MEDS: Umeclidinium/Vilanterol 62.5/25 BLST.W.DEV 1 PUFF INHALE (07:57)
[2025-02-23 07:58] VITALS: PULSE 87; RESP 16; O2SAT 97
[2025-02-23 08:32] VITALS: BP 147/76
--- NOTE | 2025-02-23 09:10 | PC.NURSE ---
pt confused, many odd statements about being at a fake wedding, pt paranoid and making statements about staying out of room 4 as someone will , medicated with most of her meds and the rest will be brought by pharmacy, pt wanted to see every med and did seem to know what each was and what they are for, pt took her meds without issue, she drank her tea but nothing else from her tray, stated it was poison
[2025-02-23 09:46] VITALS: BP 147/76; PULSE 87
[2025-02-23] MEDS: Metoprolol Succinate ER 50 MG TAB.ER.24H PO (09:46)
--- NOTE | 2025-02-23 11:58 | MHC.CM.ED ---
Patient remains in ER overflow. Spoke with patient's son, Enrique, via telephone. Enrique agreeable to patient returning home with Suzanne BUITRAGO, a referral to [facility] and friend/neighbor, Adri, assisting patient. Spoke with Adri via telephone at [phone]. Adri verifies the above information. Adri does not feel she will be able to safely transport patient home and requests BLS. [facility] booked. Med nec with chart. Patient, Enrique Rush Jim RN and Rachael ARELLANO aware. Continue to monitor for d/c needs.
[2025-02-23 14:35] VITALS: BP 124/59; PULSE 75; RESP 18; TEMP 36.3; O2SAT 92
[2025-02-23 15:06] VITALS: BP 124/59; PULSE 75; RESP 18; TEMP 36.3; O2SAT 92
== END 2025-02-23 15:07 | disposition home or self-care (01) ==
PROVIDERS: Emergency Provider Emergency Medicine; PCP Internal Medicine
DX: E86.0 Dehydration (principal); F41.9 Anxiety disorder, unspecified; R11.2 Nausea with vomiting, unspecified; R19.7 Diarrhea, unspecified; J44.9 Chronic obstructive pulmonary disease, unspecified; J45.909 Unspecified asthma, uncomplicated; I48.0 Paroxysmal atrial fibrillation; Z79.01 Long term (current) use of anticoagulants; I10 Essential (primary) hypertension; E11.40 Type 2 diabetes mellitus with diabetic neuropathy, unspecified
CPT/HCPCS: 70450; 71045; 80053; 81001; 81003; 83605; 83690; 85025; 87040; 87635; 93005; 94640; 96361; 96374; 96375; 97162; 99285; J0696; J1630; J2405; J2470

== ENCOUNTER → 2025-02-21 10:03 | Outpatient (BNV) | payer MEDICARE, OTHER, SELFPAY | PROVIDERS: Emergency Provider Emergency Medicine; PCP Internal Medicine; Visit Provider Radiology Diagnostic Radiology | DX: R41.82 Altered mental status, unspecified (principal); R06.00 Dyspnea, unspecified | CPT/HCPCS: 70450; 71045 ==

== ENCOUNTER → 2025-02-21 10:03 | Outpatient (BNV) | payer MEDICARE, OTHER, SELFPAY | PROVIDERS: Emergency Provider Emergency Medicine; PCP Internal Medicine; Visit Provider Internal Medicine Cardiovascular Disease | DX: I48.91 Unspecified atrial fibrillation (principal); I25.2 Old myocardial infarction | CPT/HCPCS: 93010 ==

== ENCOUNTER 2025-03-24 17:10 | Inpatient (IN) | payer MEDICARE, OTHER, SELFPAY ==
--- OUTSIDE RECORDS SUMMARY | 2019-07-01 11:53 | XMS_ITS | Continuity of Care Document ---
Author Organization [facility] Address [address] [address] Phone Care Team Providers Care Jute Bag Cutting Machine Operator Name Role Phone Anton Jean Baptiste DO Unavailable Unavailable Advance Directives Directive Yes / No Effective Date File Name No Information Encounters Encounter Description Practice Location Reason(s) For Visit Diagnoses Date Provider [facility], [address] [place] [address], [id number], [place] tel:[phone] [address] [place] [address] No Information 2019 Markel Walton. [address] [place] [address], [id number], [place]. tel:[phone] Family History Family Member Type Diagnosis Age [...]
--- NOTE | ~2025-03-24 | CT_ITS ---
CLINICAL HISTORY: gi bleed CT abdomen and pelvis with contrast Comparison: CT - CT ABDOMEN PELVIS W IV CON - 03/24/25 19:[address]/SR - CT ABDOMEN PELVIS W IV CON - 08/01/24 09:05 EST Findings: Small hiatal hernia. Cardiomegaly. Multiple variable-sized hepatic and renal cysts. No suspicious features. Indeterminate left adrenal nodule 7 mm image 170:3. Distal pancreatic duct is dilated up to 12 mm image 268:3, previously 10 mm. Abrupt caliber change at a new 2 mm calcification image 279:3. Mild peripancreatic fat stranding. Alongside the uncinate process anteromedial border there is a 3.3 cm cyst. Previously 2.9 cm. Gallbladder absent. Abdominal solid organs otherwise unremarkable. 2 adjacent, or bilobed 3rd portion duodenal diverticulum, overall size 4.1 cm image 42.6. Enterocele. No abnormally thickened bowel loops. No bowel obstruction. No pneumoperitoneum or pneumatosis. Hysterectomy. Ovaries unremarkable. The appendix is not definitely identified. Extensive colonic diverticulosis without diverticulitis. The bones are intact. [id number] degenerative spondylosis of the spine. IMPRESSION: 1. New 2 mm stone distal pancreatic ducts could be the cause of new interstitial pancreatitis. 2. No acute GI bleed. 3. Cyst adjacent to the uncinate process of the pancreas slightly increased in size. No inflammatory change. Follow-up as needed. 4. Indeterminate left adrenal nodule similar to the prior exam. Follow-up as needed. 5. Small enterocele. 6. Additional nonacute findings as above. This document has been electronically signed by: Tamar Javier MD on 03/24/2025 21:06:37
--- NOTE | ~2025-03-24 | CT_ITS ---
CLINICAL HISTORY: fall CT Head without contrast Comparison: None provided Findings: Advanced prominence of the sulci and ventricles diffusely. No large vessel territory infarct. No acute intracranial hemorrhage. No mass effect, midline shift, or herniation. Atherosclerotic disease of the carotid siphons. The pituitary gland and sella are unremarkable. The cerebellar tonsils are appropriately positioned. Orbits: Unremarkable. Paranasal sinuses: Patent. The mastoid air cells are well aerated. The soft tissues are unremarkable. No acute displaced calvarial fracture. Impression: No acute intracranial abnormality. This document has been electronically signed by: Lexie Garcia MD on 03/27/2025 21:37:19
--- NOTE | ~2025-03-24 | CT_ITS ---
CLINICAL HISTORY: fall CT cervical spine without contrast Comparison: CT/SR - CT CERVICAL SPINE WITHOUT IV CONTRAST - 01/10/25 12:22 EDT Findings: Normal vertebral body alignment. Multilevel degenerative changes of the cervical spine. Endplate sclerosis, uncovertebral hypertrophy, and joint space narrowing is worst from C4-C6. Moderate spinal canal narrowing at C4-C5. No acute fractures or dislocations. Soft tissues of the neck are normal. No consolidation or effusion at the lung apices. IMPRESSION: No acute findings. This document has been electronically signed by: Lexie Garcia MD on 03/27/2025 22:08:50
--- NOTE | ~2025-03-24 | XR_ITS ---
CLINICAL HISTORY: vomiting 1 view abdomen Comparison: None Findings: Normal bowel gas pattern. Normal stool quantity. No abnormal calcifications. No pneumoperitoneum or pneumatosis. Bones reveal diffuse lumbar degenerative disease. Surgical clips overlie the pelvis. Impression: 1. Normal bowel gas pattern This document has been electronically signed by: Enrique Grimm MD on 03/26/2025 16:00:41
--- NOTE | ~2025-03-24 | CT_ITS ---
CLINICAL HISTORY: fall CT abdomen and pelvis without contrast Comparison: CT/REG/SR - CT ABDOMEN PELVIS W IV CON - 03/24/25 19:[address]/SR - CT ABDOMEN PELVIS W IV CON - 08/01/24 09:05 EST Findings: Diffuse bronchial wall thickening and plugging. Mosaic attenuation of the lungs. Ground-glass opacities in the right lower lobe. 1.0 cm right subpleural nodule (series 26, image 32) subpleural nodule in the right lower lobe measuring 1.9 cm (series 26, image 129. These are likely infectious/inflammatory, given that they are new compared to recent prior exam. Coronary artery calcifications. Cardiomegaly. Trace pericardial effusion. Aortic valve and mitral annular calcifications. Cholecystectomy. Again seen is main pancreatic duct dilation measuring up to 6 mm in the pancreatic head. There is a punctate stone in the main pancreatic duct near the ampulla. Nonspecific thickening of the left adrenal gland. Bilateral renal cysts. The largest is at the upper pole of the right kidney and measures 6.5 cm. No hydronephrosis. There is a similar 3.1 x 2.5 cm cystic structure adjacent to the 2nd portion of the duodenum/uncinate process of the pancreas. Small hiatal hernia. No bowel obstruction, pneumoperitoneum, or pneumatosis. Colonic diverticulosis without acute diverticulitis. Significant atherosclerotic disease without aneurysmal dilation. Hysterectomy. Pelvic floor insufficiency. Dextroscoliosis of the thoracolumbar spine. IMPRESSION: Overall evaluation is limited secondary to the lack of IV contrast. 1. No acute traumatic injury to the abdomen. 2. New multifocal bronchial plugging likely secondary to aspiration. Right lung nodules are likely infectious/inflammatory. Recommend follow-up CT after treatment to document resolution. 3. Cardiomegaly with trace pericardial effusion. 4. Similar findings of chronic pancreatitis. This document has been electronically signed by: Lexie Garcia MD on 03/27/2025 21:53:56
--- NOTE | ~2025-03-24 | XR_ITS ---
CLINICAL HISTORY: ? aspiration 1 view chest x-ray. Comparison: 12/28/2024 Findings: No consolidation or effusion. Cardiac and mediastinal contours appear stable. Bones unremarkable. Impression: 1. No acute pulmonary disease. This document has been electronically signed by: Enrique Grimm MD on 03/26/2025 16:00:23
[2025-03-24 17:33] VITALS: BP 158/80; PULSE 84; RESP 14; TEMP 37.1; O2SAT 96; BMI 25.6
--- NOTE | 2025-03-24 17:33 | ECG_ITS ---
Test Reason : EPIGASTRIC PAIN Blood Pressure : */* mmHG Vent. Rate : 84 BPM Atrial Rate : * BPM P-R Int : * ms QRS Dur : 86 ms QT Int : 376 ms P-R-T Axes : * -34 7 degrees QTcB Int : 444 ms Atrial fibrillation Left axis deviation Abnormal ECG When compared with ECG of 21-Feb-2025 10:59, Nonspecific T wave abnormality, worse in Inferior leads Referred By: Generic ED Physician Electronically Signed By: GEORGE SCHMITT MD
--- NOTE | 2025-03-24 18:16 | ED.GIBLEED ---
HPI - GI Bleed General Chief complaint: GI Bleed Stated complaint: RECTAL BLEED X3D, VOMITTING BLOOD PER EMS Time Seen by Provider: 03/24/25 17:35 Source: patient, EMS and old records reviewed Mode of arrival: EMS Limitations: no limitations History of Present Illness ED Provider: DR. Cheek HPI Narrative: 89-year-old female with PMHx for HFpEF, COPD not on O2, paroxysmal AFib on Eliquis, non insulin-dependent DM, CKD 3, anxiety, CAD, GERD, HLD, dementia presented to the ED for evaluation of lower GI bleed for 2 days vomiting streaks of blood, patient is complaining of abdominal cramps. No CP, no SOB, no syncopal episode, no dizziness. Related Data Home Medications ?Medication ?Instructions ?Recorded ?Confirmed metoprolol succinate 50 mg 50 mg PO DAILY 08/01/24 02/21/25 tablet,extended release 24 hr albuterol sulfate 90 mcg/actuation 1 inh inhalation QID PRN Shortness 02/21/25 02/21/25 aerosol inhaler Of Breath Or Wheezing digoxin 125 mcg (0.125 mg) tablet 125 mcg PO MOWEFR 02/21/25 02/21/25 empagliflozin 25 mg tablet 25 mg PO DAILY 02/21/25 02/21/25 guaifenesin 600 mg tablet, 1,200 mg PO Q12H PRN Cough 02/21/25 02/21/25 extended release 12 hr meclizine 12.5 mg tablet 12.5 mg PO TID PRN Vertigo 02/21/25 02/21/25 tramadol 50 mg tablet 100 mg PO DAILY PRN pain 02/21/25 02/21/25 Previous Rx's ?Medication ?Instructions ?Recorded PEDIATRIC FRONT WHEELED WALKER #1 ea 09/18/23 lancets 28 gauge (FreeStyle #100 ea 11/17/23 Lancets) ascorbic acid (vitamin C) 500 mg 500 mg PO DAILY #90 tabs 08/04/24 tablet (Vitamin C) cholecalciferol (vitamin D3) 25 25 mcg PO DAILY #90 caps 08/04/24 mcg (1,000 unit) capsule cyanocobalamin (vitamin B-12) 1,000 mcg PO DAILY #90 tabs 08/04/24 1,000 mcg tablet (Vitamin B-12) incontinence pad, liner, disp #60 ea 08/19/24 blood sugar diagnostic (FreeStyle #100 ea 09/16/24 Lite Strips) apixaban 2.5 mg tablet (Eliquis) 2.5 mg PO BID #180 tabs 10/05/24 Adult pull ups #300 ea 12/10/24 atorvastatin 40 mg tablet (Lipitor) 40 mg PO BEDTIME #90 tabs 01/10/25 umeclidinium 62.5 mcg-vilanterol 1 inh inhalation DAILY #3 ea 01/10/25 25 mcg/actuation powdr for inhalation (Anoro Ellipta) tamsulosin 0.4 mg capsule 0.4 mg PO BEDTIME 90 days #90 caps 01/24/25 pregabalin 100 mg capsule 100 mg PO Q12H 31 days #62 caps 01/26/25 alprazolam 0.25 mg tablet 0.25 mg PO DAILY PRN anxiety #20 02/01/25 tabs diclofenac sodium 1 % topical gel 1 ea topical QID #1,350 grams 02/02/25 famotidine 40 mg tablet 40 mg PO BEDTIME #90 tabs 02/02/25 nystatin 100,000 unit/gram topical 1 appl topical DAILY #30 grams 02/02/25 cream furosemide 40 mg tablet 40 mg PO DAILY #90 tabs 02/19/25 zolpidem 5 mg tablet 5 mg PO BEDTIME PRN insomnia #30 03/18/25 tabs Allergies Allergy/AdvReac Type Severity Reaction Status Date / Time ciprofloxacin Allergy Severe unknown Verified 03/24/25 17:34 aspirin (Aspirin) Allergy Unknown UNKNOWN Verified 03/24/25 17:34 cefuroxime Allergy Unknown Unknown Verified 03/24/25 17:34 celecoxib (From Celebrex) Allergy Unknown UNKNOWN Verified 03/24/25 17:34 metformin Allergy Unknown diarrhea Verified 03/24/25 17:34 risedronate sodium (From Allergy Unknown UNKNOWN Verified 03/24/25 17:34 Actonel) Sulfa (Sulfonamide Allergy Unknown unknown Verified 03/24/25 17:34 Antibiotics) bupropion AdvReac Intermediate tremor Verified 03/24/25 17:34 ferrous sulfate AdvReac Intermediate tremors Verified 03/24/25 17:34 sertraline AdvReac Intermediate tremors Verified 03/24/25 17:34 Review of Systems Review of Systems: All other systems are reviewed and are negative Constitutional: Reports as per HPI and Reports no additional constitutional complaints Eyes: Reports as per HPI and Reports no additional eye complaints Reports system reviewed and no additional complaints, except as documented Cardiovascular: Reports as per HPI and Reports no additional cardiovascular complaints Respiratory: Reports as per HPI and Reports no additional respiratory complaints Gastrointestinal: Reports as per HPI and Reports no additional gastrointestinal complaints Genitourinary: Reports no additional female genitourinary complaints Musculoskeletal: Reports no additional musculoskeletal complaints Skin/Breast: Reports system reviewed and no additional complaints, except as docu Psychiatric: Reports no additional psychiatric complaints Endocrine: Reports no additional endocrine complaints Hematologic/Lymphatic: Reports no additional hematologic/lymphatic complaints Allergic/Immunologic: Reports no additional allergic/immunologic complaints Reports system reviewed and no additional complaints, except as documented and Reports Abnormal speech present [facility] Past Medical History Medical History Contusion of second toe of left foot Diarrhea Constipation Weakness Dizziness and giddiness Weakness Yeast infection of the skin Exercise hypoxemia Acute respiratory failure with hypoxia Lipoma of lower back Urinary incontinence Cystitis Acute urinary retention Acute diverticulitis of intestine Generalized abdominal pain Diverticular disease Nausea & vomiting Failure to thrive in adult TSH elevation CHF (congestive heart failure) Atrial fibrillation with RVR Atrial fibrillation with RVR Type 2 diabetes mellitus with hyperglycemia Diabetes mellitus Asthma Hypokalemia Hypomagnesemia Hearing difficulty Dyspnea on exertion History of gastrointestinal diverticular hemorrhage COVID-19 virus infection Rectal bleeding Medicare annual wellness visit, initial Hip pain, left Patellar sleeve fracture of right knee Knee pain, right Nausea and vomiting Coarse tremors Shoulder pain, right Hospital discharge follow-up Mass on back Tinea corporis Nausea Right wrist pain Left knee pain Left hip pain Toe pain, left Breast cancer screening by mammogram UTI (urinary tract infection) Obesity (BMI 30-39.9) Urinary frequency Toe fracture, left Pancreatic cyst Osteoporosis Peptic ulcer disease Urinary incontinence Rectal incontinence GERD (gastroesophageal reflux disease) Bile salt-induced diarrhea Vaginal prolapse Renal artery stenosis Asthma Lumbar degenerative disc disease Insomnia TIA (transient ischemic attack) Hyperlipidemia, unspecified Essential hypertension Surgical History Hx of colonoscopy History of esophagogastroduodenoscopy (EGD) History of removal of cyst (~10/17/21) History of hemorrhoidectomy History of colectomy History of section History of hysterectomy History of appendectomy History of cholecystectomy Family History Family History Father Cancer Arterial thrombosis Mother Multiple sclerosis Muscular dystrophy Hypertension Depression Chronic mental illness Mental health disorder Brother No problems noted. Brother Gangrene Sister No problems noted. Son No problems noted. Son No problems noted. Son No problems noted. Son No problems noted. Daughter No problems noted. Daughter No problems noted. Daughter No problems noted. Social History Social History Household Members: None Housing: Apartment Do you presently have visiting nurse or other home services: Yes Alcohol intake: former Comment: 1:1 sitter Patient Tobacco Use Status: Former Tobacco user Tobacco use type: Cigarette Years Smoked: 22 Smoked in Last 30 Days: No e-Cigarette/Vaping Use: Former Use Second Hand Smoke Exposure: Yes Use of substances other than those prescribed or required for medical reasons: No Advance Directives: Yes Advance Directives on File: Yes Advance Directives Date on File: 08/11/23 service: No Current occupational status: disabled Current occupational exposures/hazards: No Cognitive needs: Yes (walker) Hearing needs: Yes Vision needs: Yes (Glasses) Physical Exam Vital Signs: Vital Signs: Last Vital Signs Temp 97.9 F 03/24/25 19:56 Pulse 94 03/24/25 19:56 Resp 20 03/24/25 19:56 BP 127/83 03/24/25 19:56 Pulse Ox 97 03/24/25 19:56 O2 Del Method Room Air 03/24/25 19:56 BMI result Body Mass Index 25.6 Vital signs have been reviewed and appear to be correct. Blood pressure elevated. Heart rate normal. Respiratory rate normal. Temperature normal. Oxygen saturation normal. Appearance: Alert. Oriented X3. No acute distress. Head: Normal external exam. Normocephalic. Atraumatic. No Joyce signs noted. No raccoon eyes noted Eyes: PERRLA. EOMI. Conjunctiva and sclera normal. Eyelids normal. ENT: TM's Normal. Pharynx normal. Uvula midline. Moist mucous membranes. No trismus noted. No drooling noted. No muffled voice noted. Neck: Normal inspection. Neck supple. FROM. No adenopathy. Thyroid Normal. No meningeal signs. No neck mass noted. CVS: Normal heart rate and rhythm. Heart sound normal. No murmurs noted. Pulses normal throughout. Respiratory: No respiratory distress. Painless inspiration. Breath sounds normal. No wheezes/rales/rhonchi noted. Chest nontender. No accessory muscle usage noted or decreased air movement noted. Abdomen: Soft and nontender. Bowel sounds normal in all 4 quadrants. No distention noted. No organomegaly noted. No visible injury noted. Rectal exam: Hematochezia. Back: No CVA tenderness. Full range of motion noted. Skin: Skin warm and dry. Normal skin color. Normal skin turgor. No rashes/lesions/lacerations noted. Extremities: No lower extremity edema. Extremities exhibit normal range of motion. Extremities nontender. Neuro: Oriented X 3. Cranial nerve exam: II-XII are grossly intact No motor deficit. No sensory deficit. Reflexes normal. Course Reevaluation(s) Reevaluation #1: On Ralf came in with hematochezia otherwise hemodynamically stable, H&H is at her baseline, patient received PPI in ED. Pancreatitis. CT abdomen pelvis is showing pancreatic duct stone and pancreatitis. Time: 20:58 Medications Administered Discontinued Medications Generic Name Dose Route Start Last Admin Trade Name Freq PRN Reason Stop Dose Admin Al Hydroxide/Mg Hydroxide 30 ml 03/24/25 17:43 03/24/25 18:40 Magnesium Hydrox/Alum Hydrox 30 Ml Oral.Susp PO 03/24/25 17:44 30 ml ONCE ONE Administration Iohexol 100 ml 03/24/25 19:36 03/24/25 19:37 Iohexol 350 Mg/Ml 100 Ml Infus..Btl IV 03/24/25 19:37 85 ml ONCE ONE Administration Ondansetron HCl 4 mg 03/24/25 17:43 03/24/25 18:40 Ondansetron Hcl 4 Mg/2 Ml Vial IVPUSH 03/24/25 17:44 4 mg ONCE ONE Administration Pantoprazole Sodium 40 mg 03/24/25 17:43 03/24/25 18:40 Pantoprazole Sodium 40 Mg/10 Ml Vial IVPUSH 03/24/25 17:44 40 mg ONCE ONE Administration Medical Decision Making Differential Diagnosis Differential Diagnoses: The differential diagnosis associated with the presentation includes (Pancreatitis, colitis, diverticulitis, hemodynamic instability, severe anemia, electrolyte derangement.) Admission/Observation Consideration of admission/observation: Escalation of care including admission/observation considered Consult Healthcare Provider Management of the patient was discussed with: Hospitalist (Dr. Ramirez) Lab Data MDM Lab Attestation statement: I reviewed the patient's lab results. 03/24/25 18:19 03/24/25 18:19 Labs: Lab Results 03/24/25 Range/Units 18:19 WBC 8.6 (4.8-10.8) X10*3/uL RBC 4.48 (4.20-5.50) X10*6/uL Hgb 10.6 L (12.0-16.0) g/dl Hct 34.9 L (37.0-47.0) % MCV 77.9 L (80.0-98.0) fL MCH 23.7 L (27.0-33.0) pg MCHC 30.4 L (31.0-35.0) g/dl RDW 19.4 H (11.0-16.0) % Plt Count 345 (160-400) X10*3/uL MPV 11.1 (9.4-12.3) fL Immature Gran % (Auto) 0.3 (0.0-0.4) % Neut % (Auto) 60.1 (45-73) % Lymph % (Auto) 20.1 (20-40) % [place] % (Auto) 16.1 H (2-11) % Eos % (Auto) 2.9 (0-4) % Baso % (Auto) 0.5 (0-2) % Lymph # (Auto) 1.7 (1.2-4.9) X10*3/uL [place] # (Auto) 1.4 H (0.1-1.2) X10*3/uL Eos # (Auto) 0.3 (0.0-0.4) X10*3/uL Baso # (Auto) 0.0 (0.0-0.2) X10*3/uL Abs Immat Gran (auto) 0.03 (0.00-0.03) X10*3/uL Absolute Neuts (auto) 5.2 (2.0-8.3) x10*3/uL Absolute Nucleated RBC 0.000 (0.0-0.012) X10*3/uL Nucleated RBC % (auto) 0.0 (0.0-0.2) /100WBC PT 16.1 H (10.9-12.4) SEC INR 1.4 H (0.9-1.1) Sodium 146 H (135-145) mmol/L Potassium 3.4 (3.3-5.1) mmol/L Chloride 108 (96-108) mmol/L Carbon Dioxide 28 (22-29) mmol/L Anion Gap 13 (12-20) BUN 13 (9-16) mg/dL Creatinine 1.06 (0.5-1.4) mg/dL Estim Creat Clear Calc 30.1 Estimated GFR 49 Random Glucose 133 H (60-115) mg/dL Calcium 9.8 (8.4-10.2) mg/dL Total Bilirubin 0.9 (0.0-1.0) mg/dL AST 24 (5-31) U/L ALT 9 (0-31) U/L Alkaline Phosphatase 80 (39-117) U/L Troponin I High Sens 6.0 (<3.5-17.0) ng/L Total Protein 6.8 (6.5-8.0) g/dL Albumin 3.9 (3.5-5.0) g/dL Lipase > 3000 H (8-78) U/L Stool Occult Blood POSITIVE (NEGATIVE) Independent Interpretation I performed an independent interpretation of an: CT Scan (Abdomen pelvis:1. New 2 mm stone distal pancreatic ducts could be the cause of new interstitial pancreatitis. 2. No acute GI bleed. 3. Cyst adjacent to the uncinate process of the pancreas slightly increased in size. No inflammatory change. Follow-up as needed. 4. Indeterminate left adrenal nodule) Radiology Impression Discussion of test interpretation with radiology: I have reviewed the radiologist's reading. Critical Care Time Critical Care Time Critical Care Time: Yes Total Critical Care Time: 60 Attestation: The patient was critically ill with a high probability of imminent or life-threatening deterioration. I spent greater than 30 minutes of discontinuous time evaluating the patient, delivering critical care at the bedside, discussing evaluating data with consultants. Critical care time does not include time spent performing separately billable procedures or teaching. Time spent performing critical care was 60 minutes. Discharge Plan Discharge Clinical Impression: Rectal bleed, Hematochezia, Acute pancreatitis Patient Disposition: Admitted As Inpatient Print Language: Swedish
[2025-03-24 18:23] LABS: MANUAL DIFF FLAG NO
[2025-03-24 18:33] LABS: OBS Int Ctl Valid YES; OBS1 POSITIVE (NEGATIVE)
[2025-03-24 18:38] LABS: INTERNATIONAL NORM RATIO 1.4 (0.9-1.1); Prothrombin Time 16.1 SEC (10.9-12.4)
[2025-03-24 18:39] LABS: Alanine Aminotransferase 9 U/L (0-31); Albumin Level 3.9 g/dL (3.5-5.0); Alkaline Phosphatase 80 U/L (39-117); Anion Gap 13 (12-20); Aspartate Amino Transferase 24 U/L (5-31); Blood Urea Nitrogen 13 mg/dL (9-16); Calcium 9.8 mg/dL (8.4-10.2); Carbon Dioxide 28 mmol/L (22-29); Chloride 108 mmol/L (96-108); Creatinine Clr Calc Pharmacy 30.1; Estimated Glomerular Filt Rate 49; Potassium 3.4 mmol/L (3.3-5.1); Sodium 146 mmol/L (135-145); Total Protein 6.8 g/dL (6.5-8.0)
[2025-03-24] MEDS: Magnesium Hydrox/Alum Hydrox 30 ML ORAL.SUSP PO (18:40)
[2025-03-24 18:41] LABS: Hematocrit 34.9 % (37.0-47.0); Hemoglobin 10.6 g/dl (12.0-16.0); Imm Gran Abs Auto 0.03 X10*3/uL (0.00-0.03); Imm Gran Pct Auto 0.3 % (0.0-0.4); Lymphocytes Absolute Auto 1.7 X10*3/uL (1.2-4.9); Mean Corpuscular HGB Conc 30.4 g/dl (31.0-35.0); Mean Corpuscular Hemoglobin 23.7 pg (27.0-33.0); Mean Corpuscular Volume 77.9 fL (80.0-98.0); NRBC Abs Auto 0.000 X10*3/uL (0.0-0.012); NRBC Pct Auto 0.0 /100WBC (0.0-0.2); Platelet Count 345 X10*3/uL (160-400); Red Blood Count 4.48 X10*6/uL (4.20-5.50); White Blood Count 8.6 X10*3/uL (4.8-10.8)
[2025-03-24 18:46] LABS: Troponin-I High Sensitivity 6.0 ng/L (<3.5-17.0)
[2025-03-24 18:47] LABS: Lipase > 3000 U/L (8-78)
[2025-03-24] MEDS: iohexoL 350 MG/ML 100 ML INFUS..BTL IV (19:37)
--- OUTSIDE RECORDS SUMMARY | 2025-03-24 19:46 | XMS_ITS | Encounter Summary ---
Author Organization [facility] Address [address] [place] [phone] Phone Care Team Providers Care Outside Repairer Special Name Role Phone Solange Jacobs MD Primary Care Provider [phone] Encounter Details Date Type Department Care Team (Late st Contact Info) Description 10/07/2022 Procedure Pass [facility] [address] [place] [address] Social History Tobacco Use Types Packs/Day Years [...] documented as of this encounter Care Teams Outside Repairer Special Relationship Specialty Start Date End Date Solange Jacobs MD [address] [place] [phone] PCP - General Internal Medicine 08/26/17 documented as of this encounter Additional Source Comments The information contained in this document represents components of the legal health record. It is not the complete legal health record.[facility]
--- OUTSIDE RECORDS SUMMARY | 2025-03-24 19:46 | XMS_ITS | Encounter Summary ---
Author Organization [facility] Address [address] [place] [address] Phone Care Team Providers Care Mold Yard Supervisor Name Role Phone Solange Jacobs MD Primary Care Provider Reason for Referral * Physical Therapy (Routine) - Closed Specialty Diagnoses / Procedures Referred By Contac t Referred To Contact Physical Therapy Diagnoses Encounter for rehabilitation System, Provider Not In, [facility] [id number] [place] [phone] Phone: tel: Referral ID Status Reason Start Date Expiration Date Visits Re quested Visits Authorized [id number] Closed 07/01/2018 06/01/[phone] Encounter Details Date Type Department Care Team (Latest Contact Info) Description 06/10/2018 Transcribe Orders [facility] [address] [place] [id number] Solange Jacobs MD [address] [place] [phone] Encounter for rehabilitation (Primary Dx) Social [...] Diagnoses Orde r Schedule Ambulatory referral to [facility] Physical Therapy Outpatient Referral Routine Encounter [...] documented as of this encounter Care Teams Mold Yard Supervisor Relationship Specialty Start Date End Date Solange Jacobs MD [address] [facility] [address] [place] [phone] PCP - General Internal Medicine 08/26/17 documented as of this encounter Additional Source Comments The information contained in this document represents components of the legal health record. It is not the complete legal health record.[facility]
--- OUTSIDE RECORDS SUMMARY | 2025-03-24 19:46 | XMS_ITS | Encounter Summary ---
Author Organization [facility] Address [address] [place] [address] Phone Care Team Providers Care Paint Booth Operator Name Role Phone Solange Jacobs MD Primary Care Provider [phone] Encounter Details Date Type Department Care Team (Late st Contact Info) Description 03/10/2021 Procedure Pass [facility], Ct Scan - [facility] [address] [place] [address] Social History Tobacco Use Types Packs/Day Years [...] 12:20 PM EDT Katie Hugo, JUAN * [place] Suicide Severity Rating Scale (Screener/Recent Self-Report) Question [...] documented as of this encounter Care Teams Paint Booth Operator Relationship Specialty Start Date End Date Solange Jacobs MD [address] [place] [phone] PCP - General Internal Medicine 08/26/17 documented as of this encounter Additional Source Comments The information contained in this document represents components of the legal health record. It is not the complete legal health record.[facility]
--- OUTSIDE RECORDS SUMMARY | 2025-03-24 19:46 | XMS_ITS | Encounter Summary ---
Author Organization [facility] Address [address] [place] [address] Phone Care Team Providers Care Beer Runner Name Role Phone Solange Jacobs MD Primary Care Provider [phone] Encounter Details Date Type Department Care Team (Late st Contact Info) Description 10/10/2022 Procedure Pass [facility], Ct Scan - [facility] [address] [place] [address] Social History Tobacco Use Types Packs/Day Years [...] documented as of this encounter Care Teams Beer Runner Relationship Specialty Start Date End Date Solange Jacobs MD [address] [place] [phone] PCP - General Internal Medicine 08/26/17 documented as of this encounter Additional Source Comments The information contained in this document represents components of the legal health record. It is not the complete legal health record.[facility]
--- OUTSIDE RECORDS SUMMARY | 2025-03-24 19:46 | XMS_ITS | Data Portability ---
Author Organization [facility] [employer] [facility], Main Office Address [address] [facility], [address] [place] [address] Care Team Providers Care Rcis Name Role Phone CHIQUIS ESCOBEDO - 2ND [...] Xanax 0.25 mg tablet 024 01/14/20 24 [facility] , [address] [place], [address], 4 18:34:50 Patient TargetsNo targets recorded. Patient InstructionsNo instructions recorded. Reason for Referral None Reported. Problems Name Problem SNOMED Code Status Onset Date Resolution Date Notes Provider Name and Address Organization Details Recorded Time Type 2 diabetes mellitus 36649521 Active 2023 Charis Lowry NP [address] [facility], [facility] [address], [place], [address], [facility] [employer] 4 13:18:25 Chronic obstructive pulmonary disease 06065595 Active 2023 Charis Lowry NP [address] [facility], [address], [place], [address], [facility] [employer] 4 13:18:33 Congestive heart failure 00502228 Active 2023 Charis Lowry NP [address] [facility], [address], [place], [address], [facility] [employer] 4 13:18:38 Acute respiratory failure 61694752 Active 2023 Charis Lowry NP [address], [address], [place], [address], [facility] 4 13:18:55 Atrial fibrillation 61781874 Active 2023 Charis Lowry NP [address], [place], [address], [facility] 4 13:22:29 Tremor 39925879 Active 2023 Chrais Lowry NP [address], [address], [place], [address], [facility] 4 13:23:07 Mixed anxiety and depressive disorder 335430815 Active 2023 Charis Lowry NP [address], [place], [address], [facility] 4 13:23:16 Chronic pain 84153537 Active 2023 Charis Lowry NP [address], [place], [address], [facility] 4 13:28:13 Anemia 848067644 Active 2023 Charis Lowry NP [address], [place], [address], [facility] 4 13:28:23 Cyst of pancreas 11609143 Active 2023 Charis Lowry NP [address], [place], [address], [facility] 4 13:28:47 Hyperlipidemia 99350344 Active 2023 Charis Lowry NP [address], [place], [address], [facility] 4 13:28:58 Gastroesophage al reflux disease 112545417 Active 2023 Charis Lowry NP [address], [place], [address], [facility] 4 13:29:37 Hypertensive disorder 44378762 Active 2023 Charis Lowry NP [address] [facility], [address], [place], [address], [facility] [employer] 4 13:31:15 Problem Notes None recorded. Medical Equipment None Reported. Allergies Allergen ID Allergen Name Allergen Category Reaction Reaction Severity Criticality Documentation Date Start Date Code Code System Note Provider Name and Address Organization Details Recorded Time 73002 aspirin medicatio n other Not available unabletoasse 01/14/2024 1191 RxNorm unkno wn Charis Lowry NP [address] [facility], [address], [place], [address], [facility] [employer] 4 12:52:40 65276 cefuroxim e Not available other Not available unabletoasse 01/14/2024 2194 RxNorm unkno seun Lowry NP [address] [facility], [address], [place], [address], [facility] 4 12:53:03 17039 celecoxib medicatio n other Not available unabletoasse 01/14/2024 52857 7 RxNorm unkno wn Charis Lowry NP [address] [facility], [address], [place], [address], [facility] 4 12:53:18 46034 ciproflox acin medicatio n other Not available unabletoasse 01/14/2024 2551 RxNorm unkno seun Lowry NP [address] [facility], [address], [place], [address], [facility] 4 12:53:34 38075 ferrous sulfate medicatio n other Not available unabletoasse 01/14/2024 97885 RxNorm unkno seun Lowry NP [address] [facility], [address], [place], [address], [facility] 4 12:53:47 16063 metformin medicatio n other Not available unabletoasse 01/14/2024 6809 RxNorm unkno wn Charis Lowry NP [address] [facility], [address], [place], [address], [facility] 4 12:54:05 60206 risedrona te sodium medicatio n other Not available unabletoasse 01/14/2024 36935 RxNorm unkno wn Charis Lowry NP [address] [facility], [address], [place], [address], [facility] 4 12:54:29 11749 sertralin e medicatio n other Not available unabletoasse 01/14/2024 07957 RxNorm unkno wn Charis Lowry NP [address] [facility], [address], [place], [address], [facility] 4 12:54:44 79080 bupropion Not available other Not available unabletoasse 01/14/2024 26371 RxNorm unkno seun Lowry NP [address] [facility], [address], [place], [address], [facility] 4 12:55:26 90553 Substance with sulfonami de structure and antibacte rial mechanism of action (substanc e) medicatio n other Not available unabletoasse 01/14/2024 93591 8003 SNOMED unkno seun Lowry NP [address] [facility], [address], [place], [address], [facility] 4 12:55:43 Medications Name Sig Start Date Stop Date Status Note LastModified by Organization Details LastModified Time Xanax 0.25 mg tablet 1 tab 0.25 mg po bid prn anxiety 024 active Not Available Not Available Not Avai lable Vitals Date Recorded Body weight Heart rate Respiratory rate Body temperature Oxygen saturation Oxygen saturation in Arterial blood by Pulse oximetry Systolic And Diastolic Provider Name and Address Organization Details Last Updated DateTime 4 35975.2 2 g 90 /min 20 /min 98 [degF] 95 % 95 % 136/88 mm[Hg] Charis Lowry NP [address] [facility], [address], [place], [address], [facility] 13:06:27 Social History Question Answer Notes LastModified by Organizat ion Details LastModified Time Tobacco Smoking Status Former Smoker Charis Lowry, PANDA [address] [facility], [address], [place], [address], [facility] 01/14/2024 12:59:12 Do You Have An [...] Smoke? 1 PPW Information not available 01/14/2024 Has Tobacco Cessation Counseling Been Provided? No Na Information not available 01/14/2024 Do You Have Any Dietary Restrictions? No Information not available 01/14/2024 Sex: Female Functional Status Question Answer Note LastModified by Organizat ion Details LastModified Time Do you use any illicit or recreational drugs? No Information not available 01/14/2024 Do you or have you ever used any other forms of tobacco or nicotine? No Information not available 01/14/2024 What is your level of alcohol consumption? None former drinker Information not available 01/14/2024 Mental Status None recorded. Family History Nothing [...] Time Pneumococcal conjugate PCV 13 6 completed Yazmin daley, [facility] 01/14/2024 12:45:53 influenza, unspecified formulation 2 completed Yazmin Morris [facility] 01/14/2024 12:46:10 influenza, unspecified formulation 3 completed Yazminrosenda Morris [facility] 01/14/2024 12:46:17 SARS-COV-2 (COVID-19) vaccine, UNSPECIFIED 1 completed Yazmin [facility] 01/14/2024 12:50:53 SARS-COV-2 (COVID-19) vaccine, UNSPECIFIED 1 completed Yazmin Morris [facility] 01/14/2024 12:51:02 SARS-COV-2 (COVID-19) vaccine, UNSPECIFIED 1 completed Yazmin Morris [facility] 01/14/2024 12:51:09 SARS-COV-2 (COVID-19) vaccine, UNSPECIFIED 2 completed Yazmin [facility] 01/14/2024 12:51:17 SARS-COV-2 (COVID-19) vaccine, UNSPECIFIED 3 completed Yazminrosenda Morris [facility] 01/14/2024 12:51:24 Past Encounters Encounter ID Performer Location Encounter Start Date Encounter Closed Date Diagnosis/Indication Diagnosis SNOMED-CT Code Diagnosis ICD10 Code Diagnosis IMO Codes Diagnosis Note [id number] Charis Lowry NP [address] [address] 01/14/2024 12:46:17 01/15/2024 13:06:34 Acute respiratory failure 47950704 J96.00 prednisone 40 mg po daily x 4 daysfurose mide 40 mg po dailyalbut gibson qid prn sob/wheezi ngsingulai r 10 mg po zxvme93-3- 4 liters prn sob sat <90%monito r resp statuslabs as above Congestive heart failure 29149415 I50.9 see acute resp failure above Chronic ob structive pulmonary disease 75616724 J44.9 see acute resp failure above Atrial fibrillation 8580 4269 I48.91 eliquis 2.5 mg po bid for acmetoprol ol succ 100 mg po ermonitor cardiac status, vitals Mixed anxi ety and depressive disorder 183225159 F41.8 01/13 alprazolam 0.25 mg po bid prn (pt reports it is sched daily at home on the bottle but has been taking up to 4 times a day)monito r Tremor 62396856 R25.1 hx offno medication smonitor Cyst of pancreas 5204062 0 K86.2 see hpihistory of cyst noted on abd ctseen by GI, no new recfollow up with pcp outpt Hyperlipidemia 10975783 E78.5 atrovastat in 40 mg po daily Gastroesop hageal reflux disease 371196101 K21.9 with nausea/vom iting todaydexil ant 60 mg po cap dailyzofra n 4 mg po q 6 hours prn nausea vomingadd pepcid 20 mg po daily x 2 qweekmonit or Chronic pain 97629729 G8 9.29 diclofenac 4 g topically qid for paintramad ol 50 mg po daily prn q 6 hours painpregab edward 100 mg po q 12 hoursmonit or for pain Anemia 461571665 D64.9 vit c 500 mg with ferrous sulfate 325 mg po dailyfolic acid 1 mg po dialymonit or cbc weekly and for s/s of bleedingcy anocobalam in 1000 mcg po daily Hypertensive disorder 38 816435 I10 nifedipine 60 mg po er dailymonit or vitals, need to titrate Nausea and vomiting 1693 2000 R11.2 with nausea and vomiting todayrecen t workup in hospitalde xilant 60 mg po cap dailyzofra n 4 mg po q 6 hours prn nausea vomingadd pepcid 20 mg po daily x 2 qweekconsi agustin ivf if no response of ermonitorl abs stable today Asthenia 21405583 R53.1 with weaknessPT OT eval and treatmonit or for improvemen t/worsenin g Health Concerns Section Related Observation LastModified by Organization Detai ls LastModified Time None Recorded Concern Status LastModified by Organization Details LastModified Time None Recorded Advance Directives Directive N: Payers Insurance Date Sequence Insurance Name Policy Number Policy Quiles Covered Member ID Quiles Member ID Guarantor Name 01/15/2024 1 [place]ICARE [place]: [employer] Zuleyma Gutierrez [id number] Zuleyma Gutierrez 03/24/2024 2 () [id number] Zuleyma Gutierrez Notes Date Note Type Note Provider Name and Address Organization Details Recorded Time 01/14/2024 text/html Pt is seen for an initial intake visit today. PMH: COPD, CHF, DM2, anxiety, hard of hearing, tremors, chronic pain, She is an 88 yo female who presented to [facility] 01/09-01/13/24 with shortness of breath, dizziness, anxiety, and lower extremity swelling felt related to CHF and afib. She is now at [facility] for continued care and rehab. Hospital workup [...] due to vomiting. MOLST: full code Charis Lowry, PANDA [address] [facility], [address], [place], [address], [facility] 01/14/2024 14:11:50 OBGyn Episode No OBEpisode recorded.
--- OUTSIDE RECORDS SUMMARY | 2025-03-24 19:46 | XMS_ITS | Encounter Summary ---
Author Organization [facility] Address [address] [place] [address] Phone Care Team Providers Care Internet Network Specialist Name Role Phone Solange Jacobs MD Primary Care Provider [phone] Encounter Details Date Type Department Care Team (Late st Contact Info) Description 10/06/2022 Procedure Pass [facility], Ct Scan - [facility] [address] [place] [address] Social History Tobacco Use Types Packs/Day Years [...] 5:41 PM EDT Manolo Sales RN * [place] Suicide Severity Rating Scale (Screener/Recent Self-Report) Question [...] documented as of this encounter Care Teams Internet Network Specialist Relationship Specialty Start Date End Date Solange Jacobs MD [address] [place] [address] PCP - General Internal Medicine 08/26/17 documented as of this encounter Additional Source Comments The information contained in this document represents components of the legal health record. It is not the complete legal health record.[facility]
--- OUTSIDE RECORDS SUMMARY | 2025-03-24 19:46 | XMS_ITS | Encounter Summary ---
Author Organization [facility] Address [address] [place] [address] Phone Care Team Providers Care Medical Administrative Specialist Name Role Phone Solange Jacobs MD Primary Care Provider [phone] Encounter Details Date Type Department Care Team (Late st Contact Info) Description 08/26/2017 Procedure Pass [facility], Ct Scan - [facility] [address] [place] [address] Social History Tobacco Use Types Packs/Day Years [...] documented as of this encounter Care Teams Medical Administrative Specialist Relationship Specialty Start Date End Date Solange Jacobs MD [address] [place] [address] [place] [address] PCP - General Internal Medicine 08/26/17 documented as of this encounter Additional Source Comments The information contained in this document represents components of the legal health record. It is not the complete legal health record.[facility]
--- OUTSIDE RECORDS SUMMARY | 2025-03-24 19:47 | XMS_ITS | Encounter Summary ---
Author Organization [facility] Address [address] [place] [address] Phone Care Team Providers Care Electrical Worker Name Role Phone Solange Jacobs MD Primary Care Provider [phone] Encounter Details Date Type Department Care Team (Late st Contact Info) Description 03/14/2022 Procedure Pass [facility] Admitting Dept Virtual Department [address] [place] [address] Social History Tobacco Use Types Packs/Day Years [...] documented as of this encounter Care Teams Electrical Worker Relationship Specialty Start Date End Date Solange Jacobs MD [address] [place] [address] PCP - General Internal Medicine 08/26/17 documented as of this encounter Additional Source Comments The information contained in this document represents components of the legal health record. It is not the complete legal health record.[facility]
--- OUTSIDE RECORDS SUMMARY | 2025-03-24 19:47 | XMS_ITS | Encounter Summary ---
Author Organization [facility] Address [address] [place] [address] Phone Care Team Providers Care Carpet Technician Name Role Phone Solange Jacobs MD Primary Care Provider [phone] Encounter Details Date Type Department Care Team (Late st Contact Info) Description 08/05/2019 Ancillary Orders [facility], X-Ray - [address] [address] Bee Barnes MD [address] [place] [address] [email or web address] Social History Tobacco Use Types Packs/Day [...] documented as of this encounter Care Teams Carpet Technician Relationship Specialty Start Date End Date Solange Jacobs MD [address] [place] [address] PCP - General Internal Medicine 08/26/17 documented as of this encounter Additional Source Comments The information contained in this document represents components of the legal health record. It is not the complete legal health record.[facility]
--- OUTSIDE RECORDS SUMMARY | 2025-03-24 19:47 | XMS_ITS | Encounter Summary ---
Author Organization [facility] Address [address] [place] [address] Phone Care Team Providers Care Retail Account Specialist Name Role Phone Solange Jacobs MD Primary Care Provider [phone] Encounter Details Date Type Department Care Team (Late st Contact Info) Description 08/02/2023 Procedure Pass [facility], Ct Scan - [facility] [address] [place] [address] Social History Tobacco Use Types Packs/Day Years [...] 08/02/2023 1:51 PM Sukumar Contreras RN * [place] Suicide Severity Rating Scale (Screener/Recent Self-Report) Question [...] on filedocumented in this encounter Care Teams Retail Account Specialist Relationship Specialty Start Date End Date Solange Jacobs MD [address] [place] [address] Drive [address] [place] [address] PCP - General Internal Medicine 08/26/17 documented as of this encounter Additional Source Comments The information contained in this document represents components of the legal health record. It is not the complete legal health record.[facility]
--- OUTSIDE RECORDS SUMMARY | 2025-03-24 19:47 | XMS_ITS | Encounter Summary ---
Author Organization [facility] Address [address] [place] [address] Phone Care Team Providers Care Collar Shaper Operator Name Role Phone Solange Jacobs MD Primary Care Provider [phone] Encounter Details Date Type Department Care Team (Latest Contact Info) Description 07/16/2019 Transcribe Orders Virtual Department [address] [place] [address] Eu, Delia Loja MD [address] [place] [address] Primary localized osteoarthritis of pelvic region and [...] documented as of this encounter Care Teams Collar Shaper Operator Relationship Specialty Start Date End Date Reynaldo, Solange Jacobo MD [address] [place] [address] [place] [address] PCP - General Internal Medicine 08/26/17 documented as of this encounter Additional Source Comments The information contained in this document represents components of the legal health record. It is not the complete legal health record.[facility]
--- OUTSIDE RECORDS SUMMARY | 2025-03-24 19:47 | XMS_ITS | Clinical Summary ---
Author Organization [facility] Address [address] [place] [address] Phone Care Team Providers Care Audit Analyst Name Role Phone Solange Jacobs MD Primary Care Provider [phone] Allergies Active Allergy Reactions Criticality Noted Date [...] Active ferrous sulfate 325 mg (65 mg [place] iron) tablet TAKE 1 TABLET BY MOUTH [...] above studies are resulted - PT/OT evaluations -[employer] SUPERVISOR evaluation, patient has passed a bedside nursing [...] antibiotics I have requested the culture from [place] to guide were she to get sick Assessment & Plan (08/27/2017 4:31 AM EDT): Unclear if she is having new urinary symptoms (vague historian); admits to frequency, and symptoms of her vaginal prolapse (alternating incontinence and retention of urine). She has leukocytosis, chills, and an abnormal UA. I will give her Bactim and await cultures. Encounters Date Type Department Care Team Description 02/23/2025 Orders Only [facility] [address] [place] [address] Homehealth, Interface ProviderMD from Last 3 Months Family History Medical History Relation Comments Cancer [...] EDT) SODIUM 137 133 - 146 mmol/L [facility] POTASSIUM 3.8 3.3 - 5.1 mmol/L [facility] CHLORIDE 100 96 - 108 mmol/L [facility] CO2 26 21 - 35 mmol/L [facility] BUN 14 6 - 19 mg/dL [facility] CREATININE 0.90 0.5 - 1.5 mg/dL [facility] GLUCOSE 177(H) 70 - 99 mg/dL [facility] ALBUMIN 3.8(L) 3.9 - 4.8 g/dL [facility] TOTAL PROTEIN 7.2 6.5 - 8.0 g/dL [facility] CALCIUM 9.7 8.4 - 10.3 mg/dL [facility] ALKALINE PHOSPHATASE 138(H) 39 - 117 U/L [facility] TOTAL BILIRUBIN 0.9 0.0 - 1.2 mg/dL [facility] AST 21 0 - 37 U/L [facility] ALT 13 0 - 40 U/L [facility] GLOBULIN 3.4 1 - 4.8 g/dL [facility] EGFR 62 >59 mL/min/1.7 3m2 [facility] Comment:Estimated glomerular filtration rate calculated using the CKD-EPI refit equation. ANION GAP 15 10 - 20 mmol/L [facility] Blood 11/09/2024 9:36 AM EDT 11/09/2024 9:45 AM EDT Solange Jacobs MD LAB BLOOD ORDERABLES Final Re sult [address] [address] * (ABNORMAL) Hemoglobin A1c (11/09/2024 9:36 AM EDT) HEMOGLOBIN A1C 7.8(H) 4.3 - 5.8 % [facility] Blood 11/09/2024 9:36 AM EDT 11/09/2024 9:45 AM EDT Solange Jacobs MD LAB BLOOD ORDERABLES Final Re sult [address] [address] from Last 3 Months or Most Recently Relevant to Health Maintenance Insurance [address] [place] [address] MEDICARE PART A & B [facility] [place] [address] MEDICARE PART A & [place] [address] MEDICARE PART A & [place] [address] MEDICARE PART A & B Member Subscriber Plan / Payer (Ef fective 2002-Present) Name:Zuleyma Gutierrez Member ID:[id number] Relation to Subscriber:Self Name:Zuleyma Gutierrez Subscriber ID:[id number] Payer ID:[id number] Group ID:Not on file Type:Medicare Address: [employer] [address] [place] [phone] [place] [address] MEDICARE PART A & [place] [address] MEDICARE PART A & [place] [address] [address] [place] [address] MEDICARE PART A & [place] [address] MEDICARE PART A & [place] [address] MEDICARE PART A [place] [address] Advance Directives For more information, please contact: [phone] (9AM - 5PM [facility], Friday-Friday) Documents on File Type Date Recorded Patient Emanations Analysis Technician Expl anation Healthcare Proxy 08/28/2017 1:28 PM [...] Agent (Proxy form on file) Care Teams Audit Analyst Relationship Specialty Start Date End Date Solange Jacobs MD [address] [place] [address] PCP - General Internal Medicine 08/26/17 Additional Source Comments The information contained in this document represents components of the legal health record. It is not the complete legal health record.[facility]
--- OUTSIDE RECORDS SUMMARY | 2025-03-24 19:47 | XMS_ITS | Encounter Summary ---
Author Organization [facility] Address [address] [place] [address] Phone Care Team Providers Care Game Manager Name Role Phone Solange Jacobs MD Primary Care Provider [phone] Encounter Details Date Type Department Care Team (Late st Contact Info) Description 03/13/2022 Procedure Pass [facility], Ct Scan - [facility] [address] [place] [address] Social History Tobacco Use Types Packs/Day Years [...] 9:16 PM EDT Arnold Ellington RN * [place] Suicide Severity Rating Scale (Screener/Recent Self-Report) Question [...] documented as of this encounter Care Teams Game Manager Relationship Specialty Start Date End Date Soalnge Jacobs MD [address] [place] [address] PCP - General Internal Medicine 08/26/17 documented as of this encounter Additional Source Comments The information contained in this document represents components of the legal health record. It is not the complete legal health record.[facility]
--- OUTSIDE RECORDS SUMMARY | 2025-03-24 19:47 | XMS_ITS | Encounter Summary ---
Author Organization [facility] Address [address] [place] [address] Phone Care Team Providers Care Environmental Aide Name Role Phone Solange Jacobs MD Primary Care Provider [phone] Encounter Details Date Type Department Care Team (Latest Contact Info) Description 05/12/2019 Transcribe Orders [facility] [address] [place] [address] Solange Jacobs MD [address] [place] [address] Hypercalcemia (Primary Dx); Nonspecific abnormal [...] EST) TSH 10.10(H) 0.27 - 4.20 uIU/mL [facility] Blood 05/12/2019 10:2 1 AM EST 05/12/2019 10:42 AM EST us Solange Jacobs MD LAB BLOOD ORDERABLES Final Re sult Performing Organization Address [facility] Co de Phone Number [address] [address] * T4, total (05/12/2019 10:21 AM EST) THYROXINE 5.6 4.6 - 12.0 ug/dL [facility] Blood 05/12/2019 10:2 1 AM EST 05/12/2019 10:42 AM EST us Solange Jacobs MD LAB BLOOD ORDERABLES Final Re sult Performing Organization Address [facility] Co de Phone Number [address] [address] * Calcium (05/12/2019 10:21 AM EST) CALCIUM 9.8 8.4 - 10.3 mg/dL [facility] Blood 05/12/2019 10:2 1 AM EST 05/12/2019 10:42 AM EST Result Brionna Jacobs MD LAB BLOOD ORDERABLES Final Re sult Performing Organization Address [facility] de Phone Number [address] [address] * (ABNORMAL) Parathyroid hormone (PTH) (05/12/2019 10:21 AM EST) PARATHYROID HORMONE 79(H) 15 - 65 pg/mL [facility] Blood 05/12/2019 10:2 1 AM EST 05/12/2019 10:43 AM EST us Solange Jacobs MD LAB BLOOD ORDERABLES Final Re sult [facility] [address] [place] [address] documented in this encounter Visit Diagnoses Diagnosis [...] documented as of this encounter Care Teams Environmental Aide Relationship Specialty Start Date End Date Solange Jacobs MD [address] [place] [phone] PCP - General Internal Medicine 08/26/17 documented as of this encounter Additional Source Comments The information contained in this document represents components of the legal health record. It is not the complete legal health record.[facility]
--- OUTSIDE RECORDS SUMMARY | 2025-03-24 19:47 | XMS_ITS | Encounter Summary ---
Author Organization [facility] Address [address] [place] [address] Phone Care Team Providers Care Fabric Sourcer Name Role Phone Solange Jacobs MD Primary Care Provider [phone] Encounter Details Date Type Department Care Team (Late st Contact Info) Description 05/24/2021 Procedure Pass [facility], Ct Scan - [facility] [address] [place] [address] Social History Tobacco Use Types Packs/Day Years [...] 05/24/2021 12:34 PM Joan Alan RN * [place] Suicide Severity Rating Scale (Screener/Recent Self-Report) Question [...] documented as of this encounter Care Teams Fabric Sourcer Relationship Specialty Start Date End Date Solange Jacobs MD [address] [place] [phone] PCP - General Internal Medicine 08/26/17 documented as of this encounter Additional Source Comments The information contained in this document represents components of the legal health record. It is not the complete legal health record.[facility]
--- OUTSIDE RECORDS SUMMARY | 2025-03-24 19:47 | XMS_ITS | Encounter Summary ---
Author Organization [facility] Address [address] [place] [address] Phone Care Team Providers Care Criminal Legal Assistant Name Role Phone Solange Jacobs MD Primary Care Provider [phone] Reason for Referral * MRI/CAT Scan - Closed Specialty Diagnoses / Procedures Referred By Contac t Referred To Contact Radiology Diagnoses Pancreatic cyst Procedures MRI Cholangiopancreatography (MRCP) Oumou Moser PA [address] [place] [address] Phone: tel: fax: Referral ID Status Reason Start Date Expiration Date Visits Re quested Visits Authorized [id number] Closed 03/22/2024 03/22/2025 1 1 Encounter Details Date Type Department Care Team (Latest Contact Info) Description 03/22/2024 Transcribe Orders Virtual Department 30 [place] [address] Oumou Moser PA [address] [place] [address] Pancreatic cyst (Primary Dx) Social History Tobacco [...] clinician's provided indication for this examination in [facility]: Outside Radiology Order; pancreatic cyst TECHNIQUE: [...] clinician's provided indication for this examination in [facility]:Outside Radiology Order; pancreatic cyst TECHNIQUE: Multiplanar [...] pancreas documented in this encounter Care Teams Criminal Legal Assistant Relationship Specialty Start Date End Date Po, Solange Jacobo MD [address] [place] [address] Drive [address] [place] [address] PCP - General Internal Medicine 08/26/17 documented as of this encounter Additional Source Comments The information contained in this document represents components of the legal health record. It is not the complete legal health record.[facility]
--- OUTSIDE RECORDS SUMMARY | 2025-03-24 19:47 | XMS_ITS | Encounter Summary ---
Author Organization [facility] Address [address] [place] [address] Phone Care Team Providers Care Soda Flaker Name Role Phone Solange Jacobs MD Primary Care Provider [phone] Encounter Details Date Type Department Care Team (Late st Contact Info) Description 03/14/2022 Procedure Pass [facility] Admitting Dept Virtual Department [address] [place] [address] Social History Tobacco Use Types Packs/Day Years [...] documented as of this encounter Care Teams Soda Flaker Relationship Specialty Start Date End Date Solange Jacobs MD [address] [place] [phone] PCP - General Internal Medicine 08/26/17 documented as of this encounter Additional Source Comments The information contained in this document represents components of the legal health record. It is not the complete legal health record.[facility]
--- OUTSIDE RECORDS SUMMARY | 2025-03-24 19:47 | XMS_ITS | Encounter Summary ---
Author Organization [facility] Address [address] [place] [address] Phone Care Team Providers Care Drawbridge Operator Name Role Phone Solange Jacobs MD Primary Care Provider [phone] Encounter Details Date Type Department Care Team (Late st Contact Info) Description 07/16/2019 Ancillary Orders [facility], X-Ray [facility] [place] [address] [place] [address] Solange Jacobs MD [address] [place] [address] Pain Social History Tobacco Use [...] documented as of this encounter Care Teams Drawbridge Operator Relationship Specialty Start Date End Date Po, Solange Jacobo MD [address] [place] [address] [place] [phone] PCP - General Internal Medicine 08/26/17 documented as of this encounter Additional Source Comments The information contained in this document represents components of the legal health record. It is not the complete legal health record.[facility]
--- OUTSIDE RECORDS SUMMARY | 2025-03-24 19:47 | XMS_ITS | Encounter Summary ---
Author Organization [facility] Address [address] [place] [address] Phone Care Team Providers Care Hat Copyist Name Role Phone Solange Jacobs MD Primary Care Provider [phone] Encounter Details Date Type Department Care Team (Latest Contact Info) Description 08/05/2019 Ancillary Orders Virtual Department 30 [place] [address] Bee Barnes MD [address] [place] [address] [email or web address] Lumbar radiculopathy Social History Tobacco Use Types [...] documented as of this encounter Care Teams Hat Copyist Relationship Specialty Start Date End Date Solange Jacobs MD [address] [place] [address] PCP - General Internal Medicine 08/26/17 documented as of this encounter Additional Source Comments The information contained in this document represents components of the legal health record. It is not the complete legal health record.[facility]
--- OUTSIDE RECORDS SUMMARY | 2025-03-24 19:47 | XMS_ITS | Encounter Summary ---
Author Organization [facility] Address [address] [place] [address] Phone Care Team Providers Care Thread Reeler Name Role Phone Solange Jacobs MD Primary Care Provider [phone] Encounter Details Date Type Department Care Team (Late st Contact Info) Description 04/23/2020 Procedure Pass [facility], Ct Scan - [facility] 30 [place] [address] Social History Tobacco Use Types Packs/Day Years [...] documented as of this encounter Care Teams Thread Reeler Relationship Specialty Start Date End Date Solange Jacobs MD [address] [place] [phone] PCP - General Internal Medicine 08/26/17 documented as of this encounter Additional Source Comments The information contained in this document represents components of the legal health record. It is not the complete legal health record.[facility]
--- OUTSIDE RECORDS SUMMARY | 2025-03-24 19:47 | XMS_ITS | Encounter Summary ---
Author Organization [facility] Address [address] [place] [address] Phone Care Team Providers Care Employee Operations Examiner Name Role Phone Solange Jacobs MD Primary Care Provider Encounter Details Date Type Department Care Team (Late st Contact Info) Description 01/30/2023 Procedure Pass [facility], Ct Scan - [facility] [address] [place] [address] Social History Tobacco Use Types Packs/Day Years [...] documented as of this encounter Care Teams Employee Operations Examiner Relationship Specialty Start Date End Date Reynaldo, Solange Jacobo MD [address] [place] [address] Drive [address] [place] [phone] PCP - General Internal Medicine 08/26/17 documented as of this encounter Additional Source Comments The information contained in this document represents components of the legal health record. It is not the complete legal health record.[facility]
--- OUTSIDE RECORDS SUMMARY | 2025-03-24 19:47 | XMS_ITS | Encounter Summary ---
Author Organization [facility] Address [address] [place] [address] Phone Care Team Providers Care Dairy Technologist Name Role Phone Solange Jacobs MD Primary Care Provider [phone] Encounter Details Date Type Department Care Team (Late st Contact Info) Description 11/09/2024 Transcribe Orders [facility] [address] [place] [address] Solange Jacobs MD [address] [place] [address] Social History Tobacco Use Types [...] on filedocumented in this encounter Care Teams Dairy Technologist Relationship Specialty Start Date End Date Solange Jacobs MD [address] [place] [address] [place] [phone] PCP - General Internal Medicine 08/26/17 documented as of this encounter Additional Source Comments The information contained in this document represents components of the legal health record. It is not the complete legal health record.[facility]
--- OUTSIDE RECORDS SUMMARY | 2025-03-24 19:47 | XMS_ITS | Encounter Summary ---
Author Organization [facility] Address [address] [place] [address] Phone Care Team Providers Care Valver Name Role Phone Solange Jacobs MD Primary Care Provider [phone] Encounter Details Date Type Department Care Team (Late st Contact Info) Description 03/22/2024 Procedure Pass [facility] [address] [place] [address] Social History Tobacco Use Types Packs/Day Years [...] on filedocumented in this encounter Care Teams Valver Relationship Specialty Start Date End Date Solange Jacobs MD [address] [place] [address] [place] [phone] PCP - General Internal Medicine 08/26/17 documented as of this encounter Additional Source Comments The information contained in this document represents components of the legal health record. It is not the complete legal health record.[facility]
--- OUTSIDE RECORDS SUMMARY | 2025-03-24 19:47 | XMS_ITS | Encounter Summary ---
Author Organization [facility] Address [address] [place] [address] Phone Care Team Providers Care Finisher Brush Name Role Phone Solange Jacobs MD Primary Care Provider [phone] Encounter Details Date Type Department Care Team (Latest Contact Info) Description 03/22/2019 Transcribe Orders [facility] 12 [place] [address] Solange Jacobs MD [address] [place] [address] Pure hypercholesterolemia (Primary Dx); Essential [...] (03/22/2019 9:36 AM EDT) HDL 46 mg/dL [facility] Comment: Interpretation <40 mg/dL: Low HDL cholesterol (major risk factor for CHD) Greater than or equal to 60 mg/dL: High HDL cholesterol ( negative risk factor for CHD) HDL - cholesterol is affected by a number of factors, e.g. smoking, excerise, hormones, sex and age. CHOLESTEROL 142 0 - 240 mg/dL [facility] TRIGLYCERIDES 261(H) 30 - 160 mg/dL [facility] LDL 44(L) 50 - 129 mg/dL [facility] Comment: LDL levels in terms of risk for coronary heart disease: <100 mg/dL: Optimal 100-129 mg/dL: Near or above optimal 130-159 mg/dL: Borderline high 160-189 mg/dL: High >190 mg/dL: Very High CARDIAC RISK RATIO 3.1(L) 3.3 - 4.4 C [facility] Blood 03/22/2019 9:36 AM EDT 03/22/2019 10:12 AM EDT us Solange Jacobs MD LAB BLOOD ORDERABLES Final Re sult [address] [address] * (ABNORMAL) Comprehensive metabolic panel (03/22/2019 9:36 AM EDT) SODIUM 140 133 - 146 mmol/L [facility] POTASSIUM 5.0 3.3 - 5.1 mmol/L [facility] CHLORIDE 102 96 - 108 mmol/L [facility] CO2 23 21 - 35 mmol/L [facility] BUN 13 6 - 19 mg/dL [facility] CREATININE 0.70 0.5 - 1.5 mg/dL [facility] GLUCOSE 139(H) 70 - 99 mg/dL [facility] ALBUMIN 4.5 3.9 - 4.8 g/dL [facility] TOTAL PROTEIN 7.7 6.5 - 8.0 g/dL [facility] CALCIUM 10.9(H) 8.4 - 10.3 mg/dL [facility] ALKALINE PHOSPHATASE 80 39 - 117 U/L [facility] TOTAL BILIRUBIN 0.7 0.0 - 1.2 mg/dL [facility] AST 38(H) 0 - 37 U/L [facility] ALT 20 0 - 40 U/L [facility] GLOBULIN 3.2 1 - 4.8 g/dL [facility] EGFR 81 >59 mL/min/1.7 3m2 [facility] Comment:If patient is black, multiply result by 1.159. Estimated glomerular filtration rate calculated using the CKD-EPI equation. ANION GAP 20 10 - 20 mmol/L [facility] Blood 03/22/2019 9:36 AM EDT 03/22/2019 10:12 AM EDT us Solange Jacobs MD LAB BLOOD ORDERABLES Final Re sult Performing Organization Address [facility] Co de Phone Number [address] [address] * T4, total (03/22/2019 9:36 AM EDT) THYROXINE 5.9 4.6 - 12.0 ug/dL [facility] Blood 03/22/2019 9:36 AM EDT 03/22/2019 10:12 AM EDT Solange Jacobs MD LAB BLOOD ORDERABLES Final Re sult Performing Organization Address [facility] Co de Phone Number [address] [address] * Microalbumin/creatinine ratio, random urine (03/22/2019 9:36 AM EDT) URINE MICROALBUMIN <1.2 0 - 2.3 mg/dL [facility] URINE CREATININE 33 mg/dL [facility] MICROALB/CRE RATIO NOT CALCULATED 0 - 20 mg/g Cre [facility] Comment:due to Microalbumin <1.2 Urine (Urine) 03/22/2019 9:3 6 AM EDT 03/22/2019 10:12 AM EDT us Solange Jacobs MD URINE ORDERABLES Final Result Performing Organization Address City/[facility]/ZIP Co de Phone Number [address] [address] * (ABNORMAL) TSH (03/22/2019 9:36 AM EDT) TSH 5.64(H) 0.27 - 4.20 uIU/mL [facility] Blood 03/22/2019 9:36 AM EDT 03/22/2019 10:12 AM EDT Solange Jacobs MD LAB BLOOD ORDERABLES Final Re sult Performing Organization Address [facility] Co de Phone Number [address] [address] * (ABNORMAL) CBC and differential (03/22/2019 9:36 AM EDT) WBC 8.31 3.40 - 11.20 K/uL [facility] RBC 5.31(H) 3.80 - 4.80 M/uL [facility] HGB 16.8(H) 12.0 - 15.0 g/dL [facility] HCT 49.1(H) 36.0 - 46.0 % [facility] PLT 283 130 - 400 K/uL [facility] MCV 92.5 79.0 - 98.0 [facility] MCH 31.6 27.0 - 34.8 pg [facility] MCHC 34.2 31.5 - 36.0 g/dL [facility] RDW 12.8 10.8 - 14.6 % [facility] MPV 10.5 9.4 - 12.4 [facility] NRBC 0.00 0.00 /100 WBCs [facility] ABSOLUTE NRBC 0.00 0.00 K/uL [facility] DIFF METHOD Auto [facility] NEUTS 66.0 45.30 - 77.70 % [facility] LYMPHS 23.0 12.30 - 39.70 % [facility] MONOS 8.9 4.10 - 12.80 % [facility] EOS 1.3 0 - 7.2 % [facility] BASOS 0.6 0 - 2.80 % [facility] Granulocytes, immature (%) 0.2 0.0 - 0.9 % [facility] ABSOLUTE NEUTS 5.48 1.40 - 7.70 K/uL [facility] ABSOLUTE LYMPHS 1.91 0.60 - 3.20 K/uL [facility] ABSOLUTE MONOS 0.74(H) 0.11 - 0.59 K/uL [facility] ABSOLUTE EOS 0.11 0.01 - 0.50 K/uL [facility] ABSOLUTE BASOS 0.05 0.00 - 0.08 K/uL [facility] Granulocytes, immature 0.02 0.00 - 0.05 K/uL [facility] Blood 03/22/2019 9:36 AM EDT 03/22/2019 10:12 AM EDT us Solange Jacobs MD LAB BLOOD ORDERABLES Final Re sult [address] [address] * (ABNORMAL) Folate (03/22/2019 9:36 AM EDT) FOLIC ACID >20.0(H) 4.2 - 19.9 ng/mL [facility] Blood 03/22/2019 9:36 AM EDT 03/22/2019 10:12 AM EDT us Solange Jacobs MD LAB BLOOD ORDERABLES Final Re sult Performing Organization Address City/[facility]/ZIP Co de Phone Number [address] [address] * Vitamin B12 (03/22/2019 9:36 AM EDT) VITAMIN B12 1,041 232 - 1,245 pg/mL [facility] Blood 03/22/2019 9:36 AM EDT 03/22/2019 10:12 AM EDT us Solange Jacobs MD LAB BLOOD ORDERABLES Final Re sult Performing Organization Address City/[facility]/ZIP Co de Phone Number [address] [address] * 25-OH vitamin D (03/22/2019 9:36 AM EDT) 25 [place] VIT D (TOTAL) 42 30 - 60 ng/mL [facility] Blood 03/22/2019 9:36 AM EDT 03/22/2019 10:12 AM EDT us Solange Jacobs MD LAB BLOOD ORDERABLES Final Re sult Performing Organization Address [facility] Co de Phone Number [address] [address] documented in this encounter Visit Diagnoses Diagnosis [...] documented as of this encounter Care Teams Finisher Brush Relationship Specialty Start Date End Date Solange Jacobs MD [address] [place] [phone] PCP - General Internal Medicine 08/26/17 documented as of this encounter Additional Source Comments The information contained in this document represents components of the legal health record. It is not the complete legal health record.[facility]
--- OUTSIDE RECORDS SUMMARY | 2025-03-24 19:47 | XMS_ITS | Encounter Summary ---
Author Organization [facility] Address [address] [place] [address] Phone Care Team Providers Care Adjustment Supervisor Name Role Phone Solange Jacobs MD Primary Care Provider [phone] Encounter Details Date Type Department Care Team (Late st Contact Info) Description 05/24/2021 Procedure Pass [facility], [address] [address] Social History Tobacco Use Types Packs/Day Years [...] 05/24/2021 12:34 PM Joan Alan RN * [place] Suicide Severity Rating Scale (Screener/Recent Self-Report) Question [...] documented as of this encounter Care Teams Adjustment Supervisor Relationship Specialty Start Date End Date Solange Jacobs MD [address] [place] [address] PCP - General Internal Medicine 08/26/17 documented as of this encounter Additional Source Comments The information contained in this document represents components of the legal health record. It is not the complete legal health record.[facility]
--- OUTSIDE RECORDS SUMMARY | 2025-03-24 19:47 | XMS_ITS | Encounter Summary ---
Author Organization [facility] Address [address] [place] [address] Phone Care Team Providers Care License Distributor Name Role Phone Solange Jacobs MD Primary Care Provider [phone] Encounter Details Date Type Department Care Team (Late st Contact Info) Description 01/31/2023 Procedure Pass [facility] Endoscopy Admitting Dept Virtual Department [address] [place] [address] Social History Tobacco Use Types Packs/Day Years [...] 5:21 PM EDT America Giles, JUAN * [place] Suicide Severity Rating Scale (Screener/Recent Self-Report) Question [...] documented as of this encounter Care Teams License Distributor Relationship Specialty Start Date End Date Solange Jacobs MD [address] [place] [address] [place] [phone] PCP - General Internal Medicine 08/26/17 documented as of this encounter Additional Source Comments The information contained in this document represents components of the legal health record. It is not the complete legal health record.[facility]
[2025-03-24 19:56] VITALS: BP 127/83; PULSE 94; RESP 20; TEMP 36.6; O2SAT 97
--- NOTE | 2025-03-24 19:59 | PC.NURSE ---
Assumed care of patient at 1900. Pt a&Ox3, in hospital stretcher. Pt has yellow sociocultural anthropology professor socks on. On tele monitor. Pending CT.
[2025-03-24 21:29] VITALS: BP 131/63; PULSE 89; RESP 12; O2SAT 98
--- NOTE | 2025-03-24 21:35 | PC.NURSE ---
Pt reporting abdominal pain and nausea. Pt medicated as charted. Pt breathing unlabored, skin p/w/d. Pt up to the commode with assistance.
--- NOTE | 2025-03-24 22:40 | PC.NURSE ---
Pt reports pain medication was effective, now reporting pain of 3/10 and no nausea.
--- NOTE | 2025-03-24 22:57 | PC.NURSE ---
Pt spO2 noted to drop to 88% while asleep, pt woken and stated that usually happens . Denies shortness of breath, respirations are even and unlabored. Pt placed on oxygen @ 2L [place]. spO2 96% on 2L.
[2025-03-24 23:22] LABS: Appearance Urine Clear; Glucose Urine UA >=1000 mg/dL (Negative); PH 8.0 (5.0-9.0); Specific Gravity - Urine 1.015 (1.005-1.025); UMIC TRIGGER UACC YES
--- NOTE | 2025-03-24 23:46 | P.HPHOSP_ITS ---
History of Present Illness Date of Service: 03/24/25 Chief Complaint: Abdominal pain/blood in the stool 89-year-old female with a past medical history of HTN, HLD, dm, CVA, dysphagia, vertebral artery stenosis, lumbar spinal stenosis, GERD, COPD, CKD, aortic stenosis, anemia presented to the hospital today with a chief complaint of blood in the stool. Patient myself past 2 days she has been not feeling well same: Has been having bright red blood per rectum. Has had multiple episodes of blood in the stool. Denies any shortness of breath or dyspnea on exertion. Denies any chest pain or palpitations. For the past few days she has been having abdominal pain diffuse in nature. Severe in intensity. Associated nausea. Patient denies any fevers and chills. Denies any urinary symptoms. Review of all other systems is negative except mentioned above ER course: Per ER team, patient's hemoglobin was stable. CT abdomen pelvis shows findings concerning for acute interstitial pancreatitis. Pancreatic ductal stone. Lipase elevated. Liver enzymes within normal limits. [facility] Medical History Contusion of second toe of left foot Diarrhea Constipation Weakness Dizziness and giddiness Weakness Yeast infection of the skin Exercise hypoxemia Acute respiratory failure with hypoxia Lipoma of lower back Urinary incontinence Cystitis Acute urinary retention Acute diverticulitis of intestine Generalized abdominal pain Diverticular disease Nausea & vomiting Failure to thrive in adult TSH elevation CHF (congestive heart failure) Atrial fibrillation with RVR Atrial fibrillation with RVR Type 2 diabetes mellitus with hyperglycemia Diabetes mellitus Asthma Hypokalemia Hypomagnesemia Hearing difficulty Dyspnea on exertion History of gastrointestinal diverticular hemorrhage COVID-19 virus infection Rectal bleeding Medicare annual wellness visit, initial Hip pain, left Patellar sleeve fracture of right knee Knee pain, right Nausea and vomiting Coarse tremors Shoulder pain, right Hospital discharge follow-up Mass on back Tinea corporis Nausea Right wrist pain Left knee pain Left hip pain Toe pain, left Breast cancer screening by mammogram UTI (urinary tract infection) Obesity (BMI 30-39.9) Urinary frequency Toe fracture, left Pancreatic cyst Osteoporosis Peptic ulcer disease Urinary incontinence Rectal incontinence GERD (gastroesophageal reflux disease) Bile salt-induced diarrhea Vaginal prolapse Renal artery stenosis Asthma Lumbar degenerative disc disease Insomnia TIA (transient ischemic attack) Hyperlipidemia, unspecified Essential hypertension Family History Father Cancer Arterial thrombosis Mother Multiple sclerosis Muscular dystrophy Hypertension Depression Chronic mental illness Mental health disorder Brother No problems noted. Brother Gangrene Sister No problems noted. Son No problems noted. Son No problems noted. Son No problems noted. Son No problems noted. Daughter No problems noted. Daughter No problems noted. Daughter No problems noted. Surgical History Hx of colonoscopy History of esophagogastroduodenoscopy (EGD) History of removal of cyst (~10/17/21) History of hemorrhoidectomy History of colectomy History of section History of hysterectomy History of appendectomy History of cholecystectomy Social History Household Members: None Housing: Apartment Do you presently have visiting nurse or other home services: Yes Alcohol intake: former Comment: 1:1 sitter Patient Tobacco Use Status: Former Tobacco user Tobacco use type: Cigarette Years Smoked: 22 Smoked in Last 30 Days: No e-Cigarette/Vaping Use: Former Use Second Hand Smoke Exposure: Yes Use of substances other than those prescribed or required for medical reasons: No Advance Directives: Yes Advance Directives on File: Yes Advance Directives Date on File: 08/11/23 service: No Current occupational status: disabled Current occupational exposures/hazards: No Cognitive needs: Yes (walker) Hearing needs: Yes Vision needs: Yes (Glasses) Meds Allergies Allergy/AdvReac Type Severity Reaction Status Date / Time ciprofloxacin Allergy Severe unknown Verified 03/24/25 17:34 aspirin (Aspirin) Allergy Unknown UNKNOWN Verified 03/24/25 17:34 cefuroxime Allergy Unknown Unknown Verified 03/24/25 17:34 celecoxib (From Celebrex) Allergy Unknown UNKNOWN Verified 03/24/25 17:34 metformin Allergy Unknown diarrhea Verified 03/24/25 17:34 risedronate sodium (From Allergy Unknown UNKNOWN Verified 03/24/25 17:34 Actonel) Sulfa (Sulfonamide Allergy Unknown unknown Verified 03/24/25 17:34 Antibiotics) bupropion AdvReac Intermediate tremor Verified 03/24/25 17:34 ferrous sulfate AdvReac Intermediate tremors Verified 03/24/25 17:34 sertraline AdvReac Intermediate tremors Verified 03/24/25 17:34 Active Medications: Current Medications Acetaminophen (Acetaminophen 325 Mg Tablet) 650 mg PO Q6H PRN PRN Reason: Pain, Mild 1-3,fever,headache Calcium Carbonate (Calcium Carbonate 750 Mg Tab.Chew) 750 mg PO Q4H PRN PRN Reason: Heartburn Dextrose (Dextrose 50 % 25 Gm/50 Ml Syringe) 25 gm IVPUSH Q15M PRN; Protocol PRN Reason: per Hypoglycemia Standing Ord. Glucose (Glucose Gel 15 Gm Gel..Gram.) 15 gm PO Q15M PRN; Protocol PRN Reason: per Hypoglycemia Standing Ord. Insulin Human Lispro (Insulin Lispro 100 Unit/Ml 3 Ml Vial) 0 unit SUBCUT QIDACHS [facility]; Protocol Magnesium Hydroxide (Milk Of Magnesia 30 Ml Oral.Susp) 30 ml PO DAILY PRN PRN Reason: Constipation Melatonin (Melatonin 3 Mg Tablet) 6 mg PO BEDTIME PRN PRN Reason: Insomnia Pantoprazole Sodium (Pantoprazole Sodium 40 Mg/10 Ml Vial) 40 mg IVPUSH DAILY@0630 [facility] Sodium Chloride (0.9 % Sodium Chloride Flush 3 Ml Syringe) 3 ml IVFLUSH QSHIFT [facility] Home Medications ?Medication ?Instructions ?Recorded ?Confirmed ?Last Taken ?Type metoprolol succinate 50 mg 50 mg PO DAILY 08/01/24 Unknown History tablet,extended release 24 hr albuterol sulfate 90 mcg/actuation 1 inh inhalation QI D PRN Shortness 02/21/25 02/21/25 Unknown History aerosol inhaler Of Breath Or Wheezing digoxin 125 mcg (0.125 mg) tablet 125 mcg PO MOWEFR 02/21/25 Unknown History empagliflozin 25 mg tablet 25 mg PO DAILY 02/21/25 Unknown History guaifenesin 600 mg tablet, 1,200 mg PO Q12H PRN Cough 02/21/25 02/21/25 Unknown History extended release 12 hr meclizine 12.5 mg tablet 12.5 mg PO TID PRN Vertigo 0 02/21/25 02/21/25 Unknown History tramadol 50 mg tablet 100 mg PO DAILY PRN pain 02/21/25 Unknown History cephalexin 500 mg capsule 500 mg PO BID 03/24/25 Unkn own History Physical Exam 2 Vital Signs and Narrative: Vital Signs: Last Vital Signs Temp 97.9 F 03/24/25 19:56 Pulse 89 03/24/25 21:29 Resp 12 03/24/25 21:29 BP 131/63 03/24/25 21:29 Pulse Ox 98 03/24/25 21:29 O2 Del Method Room Air 03/24/25 21:29 BMI result Body Mass Index 25.6 Gen: Appears be in no acute distress HEENT: NCAT, Moist mucosa. Pulmonary: Vesicular breath sounds, fair air entry CVS: Normal S1-S2 Abdomen: BS+, Soft, tender diffusely, no guarding no rigidity Extremities: Warm well perfused Neuro: Alert and awake. Results Labs 03/25/25 03:54 03/25/25 03:54 Labs: Laboratory Results - last 24 hr 03/24/25 18:19 MCV 77.9 L MCH 23.7 L MCHC 30.4 L RDW 19.4 H Plt Count 345 MPV 11.1 Immature Gran % (Auto) 0.3 Neut % (Auto) 60.1 Lymph % (Auto) 20.1 [place] % (Auto) 16.1 H Eos % (Auto) 2.9 Baso % (Auto) 0.5 Lymph # (Auto) 1.7 [place] # (Auto) 1.4 H Eos # (Auto) 0.3 Baso # (Auto) 0.0 Abs Immat Gran (auto) 0.03 Absolute Neuts (auto) 5.2 Absolute Nucleated RBC 0.000 Nucleated RBC % (auto) 0.0 PT 16.1 H INR 1.4 H Anion Gap 13 Estim Creat Clear Calc 30.1 Estimated GFR 49 Random Glucose 133 H Calcium 9.8 Total Bilirubin 0.9 AST 24 ALT 9 Alkaline Phosphatase 80 Troponin I High Sens 6.0 Total Protein 6.8 Albumin 3.9 Lipase > 3000 H Stool Occult Blood POSITIVE Assessment and Plan (1) Pancreatitis: Qualifiers: Acute pancreatitis complication: unspecified Chronicity: acute P ancreatitis type: unspecified pancreatitis type Qualified Code(s): K85.90 - Acute pancreatitis without necrosis or infection, unspecified Status: Acute Plan 89-year-old female with a past medical history of HTN, HLD, dm, CVA, dysphagia, vertebral artery stenosis, lumbar spinal stenosis, GERD, COPD, CKD, aortic stenosis, anemia presented to the hospital today with a chief complaint of blood in the stool/abdominal pain. Admitted for following Acute interstitial pancreatitis: CT abdomen pelvis showed 2 mm pancreatic ductal stone. Likely contributing. Pain control. NPO. Gentle IV fluids. Gastroenterology consult for further input. BRBPR: Hemoglobin slightly dropped from her baseline of 11-10. Serial H&H. NPO. IV PPI. Gastroenterology consult as mentioned above. Diabetes: Insulin sliding scale AFib: Home Eliquis on hold until cleared by Gastroenterology. Rate controlled. CKD: Creatinine her baseline. COPD: Stable DVT prophylaxis: SCD boots Code status: Full code Quality Stroke Does the patient have a stroke diagnosis?: No VTE Prior VTE?: No VTE Risk Level:: Medical - moderate - high VTE Device Contraindication: N/A - Device Ordered VTE Drug Contraindication: Treatment Not Indicated
[2025-03-25] VITALS (8 sets, daily range): BP systolic 133–158; BP diastolic 63–86; PULSE 73–104; RESP 14–20; TEMP 36.1–37.4; O2SAT 95–98; BMI 26.3
--- NOTE | 2025-03-25 03:00 | PC.NURSE ---
Pt reporting 10/10 abdominal pain, medicated as charted.
[2025-03-25] MEDS: 0.9 % Sodium Chloride Flush 3 ML SYRINGE IVFLUSH ×2 (03:05→07:32)
[2025-03-25 04:15] LABS: MANUAL DIFF FLAG NO
[2025-03-25 04:22] LABS: Hematocrit 33.3 % (37.0-47.0); Hemoglobin 9.8 g/dl (12.0-16.0); Imm Gran Abs Auto 0.03 X10*3/uL (0.00-0.03); Imm Gran Pct Auto 0.3 % (0.0-0.4); Lymphocytes Absolute Auto 1.5 X10*3/uL (1.2-4.9); Mean Corpuscular HGB Conc 29.4 g/dl (31.0-35.0); Mean Corpuscular Hemoglobin 23.5 pg (27.0-33.0); Mean Corpuscular Volume 79.9 fL (80.0-98.0); NRBC Abs Auto 0.000 X10*3/uL (0.0-0.012); NRBC Pct Auto 0.0 /100WBC (0.0-0.2); Platelet Count 280 X10*3/uL (160-400); Red Blood Count 4.17 X10*6/uL (4.20-5.50); White Blood Count 9.0 X10*3/uL (4.8-10.8)
--- NOTE | 2025-03-25 04:36 | PC.NURSE ---
Pt reports improved pain, reports 3/10 now. Still experiencing some nausea, pt medicated as charted.
--- NOTE | 2025-03-25 04:39 | PC.NURSE ---
Pt unsure of home medications or doses. Unable to complete med rec at this time.
[2025-03-25 04:44] LABS: Alanine Aminotransferase 7 U/L (0-31); Albumin Level 3.5 g/dL (3.5-5.0); Alkaline Phosphatase 71 U/L (39-117); Anion Gap 12 (12-20); Aspartate Amino Transferase 19 U/L (5-31); Blood Urea Nitrogen 14 mg/dL (9-16); Calcium 9.0 mg/dL (8.4-10.2); Carbon Dioxide 26 mmol/L (22-29); Chloride 111 mmol/L (96-108); Creatinine Clr Calc Pharmacy 31.3; Estimated Glomerular Filt Rate 51; Potassium 3.4 mmol/L (3.3-5.1); Sodium 146 mmol/L (135-145); Total Protein 6.0 g/dL (6.5-8.0)
--- NOTE | 2025-03-25 07:33 | P.CNGI_ITS ---
History of Present Illness Data of Consult Service Date: 03/25/25 Requesting physician: Danny Ramirez Primary Care Provider: Solange Jacobs MD [facility] Reason for consult: pancreatitis;gi bleed; stone 89 YF with HTN, HLD, dm, CVA, dysphagia, vertebral artery stenosis, lumbar spinal stenosis, GERD, COPD, CKD, aortic stenosis, anemia seen at [facility] on 03/24/25 with blood in the stool. Patient reported she has been not feeling well past 2 days She reported having bright red blood per rectum - multiple episodes of blood in the stool. She also complained of abdominal cramps and vomiting streaks of blood. Denies any shortness of breath or dyspnea on exertion. Denies any chest pain or palpitations. Patient denied any urinary symptoms, fevers and chills. Pt reported multiple episodes of lower GI bleeding in the past, attributed to diverticular bleeding. Previously has been seen by Dr. Mills as well. 03/2024 she was admitted to [facility] in March once again with lower GI bleeding. Underwent an EGD/colonoscopy during that admission (Dr. Richter) which was reportedly normal except diverticulosis. This is as per the discharge summary, detailed procedure note is not available. Of note, patient had a recent TIA, and is on Plavix, which she has continued as per her neurologist advice. Outside of this, patient also reports intermittent episodes of fecal incontinence. She does not report any diarrhea or constipation with this. Stool consistency otherwise is formed, and regular. Does not have to strain. When she does have an episode of fecal incontinence, the stool that leaks is soft or even formed. Obstetric history includes vaginal deliver of 6 out of 7 kids including history of instrument assisted . Babies weight ranged from 8-10 lbs. ER course: Per ER team, patient's hemoglobin was stable. Lipase increased > 3000 and improved to 1355 today. Liver enzymes within normal limits. 03/24/[address] SCAN SHOWED: 1. New 2 mm stone distal pancreatic ducts could be the cause of new interstitial pancreatitis. 2. No acute GI bleed. 3. Cyst adjacent to the uncinate process of the pancreas slightly increased in size. No inflammatory change. Follow-up as needed. 4. Indeterminate left adrenal nodule similar to the prior exam. Follow-up as needed. 5. Small enterocele. 6. Additional nonacute findings as above. Review of Systems 2 Review of Systems: Yes all other systems are reviewed and are negative [facility] Past Medical History Medical History (Updated 04/12/25 @ 07:20 by Chantel Rucker RN) Diverticulitis Contusion of second toe of left foot Dizziness and giddiness Yeast infection of the skin Generalized abdominal pain Cystitis Weakness Atrial fibrillation with RVR Acute urinary retention Acute diverticulitis of intestine Atrial fibrillation with RVR Acute respiratory failure with hypoxia CHF (congestive heart failure) Asthma Exercise hypoxemia Weakness Nausea & vomiting Hypokalemia Hypomagnesemia Diarrhea Hearing difficulty Diverticular disease Diabetes mellitus Dyspnea on exertion History of gastrointestinal diverticular hemorrhage COVID-19 virus infection Rectal bleeding Medicare annual wellness visit, initial Hip pain, left Patellar sleeve fracture of right knee Lipoma of lower back Knee pain, right Nausea and vomiting Coarse tremors Shoulder pain, right Hospital discharge follow-up Failure to thrive in adult Mass on back Constipation Tinea corporis Nausea Right wrist pain Left knee pain Left hip pain Toe pain, left Breast cancer screening by mammogram TSH elevation Urinary frequency UTI (urinary tract infection) Urinary incontinence Type 2 diabetes mellitus with hyperglycemia Toe fracture, left Pancreatic cyst Osteoporosis Peptic ulcer disease Urinary incontinence Rectal incontinence GERD (gastroesophageal reflux disease) Obesity (BMI 30-39.9) Bile salt-induced diarrhea Vaginal prolapse Renal artery stenosis Asthma Lumbar degenerative disc disease Insomnia TIA (transient ischemic attack) Hyperlipidemia, unspecified Essential hypertension Family History Family History Father Cancer Arterial thrombosis Mother Multiple sclerosis Muscular dystrophy Hypertension Depression Chronic mental illness Mental health disorder Brother No problems noted. Brother Gangrene Sister No problems noted. Son No problems noted. Son No problems noted. Son No problems noted. Son No problems noted. Daughter No problems noted. Daughter No problems noted. Daughter No problems noted. Surgical History Surgical History Hx of colonoscopy History of esophagogastroduodenoscopy (EGD) History of removal of cyst (~10/17/21) History of hemorrhoidectomy History of colectomy History of section History of hysterectomy History of appendectomy History of cholecystectomy Social History Social History Household Members: None Housing: Apartment Do you presently have visiting nurse or other home services: Yes Alcohol intake: former Comment: 1:1 sitter. Patient Tobacco Use Status: Former Tobacco user Tobacco use type: Cigarette Years Smoked: 22 Smoked in Last 30 Days: No e-Cigarette/Vaping Use: Former Use Second Hand Smoke Exposure: Yes Advance Directives: Yes Advance Directives on File: Yes Advance Directives Date on File: 08/11/23 Do you have a plan to hurt others: No Plan Recently lost weight without trying: No Eating poorly because of decreased appetite: No Nutrition Risks: No Nutritional Risk Patient : No : No Poor oral hygiene: Yes service: No Current occupational status: disabled Current occupational exposures/hazards: No Cognitive needs: Yes (walker) Hearing needs: Yes Vision needs: Yes (Glasses) Meds Allergies Allergy/AdvReac Type Severity Reaction Status Date / Time ciprofloxacin Allergy Severe unknown Verified 04/10/25 22:05 aspirin (Aspirin) Allergy Unknown UNKNOWN Verified 04/10/25 22:05 cefuroxime Allergy Unknown Unknown Verified 04/10/25 22:05 celecoxib (From Celebrex) Allergy Unknown UNKNOWN Verified 04/10/25 22:05 metformin Allergy Unknown diarrhea Verified 04/10/25 22:05 risedronate sodium (From Allergy Unknown UNKNOWN Verified 04/10/25 22:05 Actonel) Sulfa (Sulfonamide Allergy Unknown unknown Verified 04/10/25 22:05 Antibiotics) bupropion AdvReac Intermediate tremor Verified 04/10/25 22:05 ferrous sulfate AdvReac Intermediate tremors Verified 04/10/25 22:05 sertraline AdvReac Intermediate tremors Verified 04/10/25 22:05 Active Medications: Current Medications Acetaminophen (Acetaminophen 325 Mg Tablet) 650 mg PO Q6H PRN PRN Reason: Pain, Mild 1-3,fever,headache Calcium Carbonate (Calcium Carbonate 750 Mg Tab.Chew) 750 mg PO Q4H PRN PRN Reason: Heartburn Dextrose (Dextrose 50 % 25 Gm/50 Ml Syringe) 25 gm IVPUSH Q15M PRN; Protocol PRN Reason: per Hypoglycemia Standing Ord. Glucose (Glucose Gel 15 Gm Gel..Gram.) 15 gm PO Q15M PRN; Protocol PRN Reason: per Hypoglycemia Standing Ord. Hydromorphone HCl (Hydromorphone Hcl 0.5 Mg/0.5 Ml Syringe) 0.5 mg IVPUSH Q4H PRN; Protocol PRN Reason: Breakthrough Pain Last Admin: 03/25/25 02:56 Dose: 0.5 mg Insulin Human Lispro (Insulin Lispro 100 Unit/Ml 3 Ml Vial) 0 unit SUBCUT QIDACHS [facility]; Protocol Last Admin: 03/25/25 07:32 Dose: Not Given Magnesium Hydroxide (Milk Of Magnesia 30 Ml Oral.Susp) 30 ml PO DAILY PRN PRN Reason: Constipation Melatonin (Melatonin 3 Mg Tablet) 6 mg PO BEDTIME PRN PRN Reason: Insomnia Pantoprazole Sodium (Pantoprazole Sodium 40 Mg/10 Ml Vial) 40 mg IVPUSH DAILY@0630 [facility] Last Admin: 03/25/25 06:17 Dose: 40 mg Sodium Chloride (0.9 % Sodium Chloride Flush 3 Ml Syringe) 3 ml IVFLUSH QSHIFT [facility] Last Admin: 03/25/25 07:32 Dose: 3 ml Home Medications ?Medication ?Instructions ?Recorded ?Confirmed ?Last Taken ?Type metoprolol succinate 50 mg 50 mg PO DAILY 08/01/2403/2604/10/25 History tablet,extended release 24 hr albuterol sulfate 90 mcg/actuation 1 inh inhalation QI D PRN Shortness 02/21/25 04/11/25 Unknown History aerosol inhaler Of Breath Or Wheezing digoxin 125 mcg (0.125 mg) tablet 125 mcg PO MOWEFR 04/11/25 04/08/25 History empagliflozin 25 mg tablet 25 mg PO DAILY 02/21/2503/2604/10/25 History meclizine 12.5 mg tablet 12.5 mg PO TID PRN Vertigo 0 02/21/25 04/11/25 Unknown History tramadol 50 mg tablet 50 mg PO BID PRN pain 04/11/25 Unknown History diclofenac sodium 1 % topical gel 1 ea topical QID PRN Pain 03/25/25 04/11/25 Unknown History nystatin 100,000 unit/gram topical 1 appl topical MONIKA Y 03/25/25 04/11/25 04/10/25 History powder sitagliptin 25 mg tablet 25 mg PO DAILY 03/25/25/04/10/25 History Physical Exam 2 Vital Signs: Vital Signs: Last Vital Signs Temp 97.9 F 03/24/25 19:56 Pulse 73 03/25/25 04:31 Resp 14 03/25/25 04:31 BP 133/71 03/25/25 04:31 Pulse Ox 96 03/25/25 04:31 O2 Del Method Nasal Cannula 03/25/25 04:31 O2 Flow Rate 2 03/25/25 04:31 BMI result Body Mass Index 25.6 Const: General: no acute distress Nutritional Appearance: average body habitus Orientation/consciousness: patient oriented x3 HEENT: Head: Yes normal to inspection Ears: hearing grossly normal bilaterally Eyes: Sclerae: sclerae normal Pupils: Equal, round and reactive pupils present Neck: Neck: Yes normal visual inspection Chest: Chest palpation & inspection: normal inspection of the chest Resp: Effort & Inspection: normal respiratory effort Auscultation: clear to auscultation bilaterally Cardio: Palpation: normal PMI Rate: regular rate Rhythm: regular rhythm Heart sounds: S1 normal heart sound present, S2 normal heart sound present and no murmurs GI: Palpation (GI): Soft to palpation, nontender and No hepatosplenomegaly present Auscultation: normal bowel sounds Rectal Exam - Female: deferred Skin: General skin exam: no rashes or lesions noted Neuro: General: patient oriented x3, gait normal and moves all extremities Cranial nerves: Yes Equal, round and reactive pupils present Psych: Appearance: grossly normal Mental Status: mental status grossly normal Results Labs 03/27/25 20:52 03/28/25 12:13 Labs: Short CBC 03/24/25 03/25/25 Range/Units 18:19 03:54 WBC 8.6 9.0 (4.8-10.8) X10*3/uL Hgb 10.6 L 9.8 L (12.0-16.0) g/dl Hct 34.9 L 33.3 L (37.0-47.0) % Plt Count 345 280 (160-400) X10*3/uL BMP 03/24/25 03/25/25 18:19 03:54 Sodium 146 H 146 H Potassium 3.4 3.4 Chloride 108 111 H Carbon Dioxide 28 26 BUN 13 14 Creatinine 1.06 1.02 Calcium 9.8 9.0 D Liver Function 03/24/25 03/25/25 Range/Units 18:19 03:54 Total Bilirubin 0.9 0.9 (0.0-1.0) mg/dL AST 24 19 (5-31) U/L ALT 9 7 (0-31) U/L Alkaline Phosphatase 80 71 (39-117) U/L Albumin 3.9 3.5 (3.5-5.0) g/dL Urine 03/24/25 Range/Units 23:14 Urine Color Yellow Urine Appearance Clear Urine pH 8.0 (5.0-9.0) Ur Specific [place] 1.015 (1.005-1.025) Urine Protein Trace (Neg-Trace) mg/dL Urine Glucose (UA) >=1000 H (Negative) mg/dL Assessment and Plan (1) Acute pancreatitis: Status: Resolved (2) Hematochezia: Status: Resolved Plan 89 YF with HTN, HLD, dm, CVA, dysphagia, vertebral artery stenosis, lumbar spinal stenosis, GERD, COPD, CKD, aortic stenosis, anemia admitted [place] [facility] [place] with blood in the stool. She reported having bright red blood per rectum - multiple episodes of blood in the stool. Pt reported multiple episodes of lower GI bleeding in the past, attributed to diverticular bleeding. 03/2024 she was admitted to [facility] in March once again lower GI bleeding. Underwent an EGD/colonoscopy during that admission (Dr. Richter) which was reportedly normal except diverticulosis. Hematochezia is likely from diverticular bleed. Per nursing staff pt has not had any bleeding during present shift. RECOMMENDATIONS: 1. Agree with IV PPI and anti-emetics 2, Monitor CBC daily and transfuse prn. 3. Advise conservative management since pt has had a colonoscopy in the past which revealed diverticulosis and no other findings. Consider a CT angio in case of rebleeding. 4. She will need an ERCP for removal of pancreatic duct stone as an outpatient once pancreatitis resolves Procedures Date of Service Date of Service: 04/12/25
[2025-03-25 07:37] LABS: Glucose, Whole Blood 131 mg/dL (60-115)
--- NOTE | 2025-03-25 08:43 | HO.NURTONUR ---
PER MD: 89-year-old female with a past medical history of HTN, HLD, dm, CVA, dysphagia, vertebral artery stenosis, lumbar spinal stenosis, GERD, COPD, CKD, aortic stenosis, anemia presented to the hospital today with a chief complaint of blood in the stool. Patient myself past 2 days she has been not feeling well same: Has been having bright red blood per rectum. Has had multiple episodes of blood in the stool. Denies any shortness of breath or dyspnea on exertion. Denies any chest pain or palpitations. For the past few days she has been having abdominal pain diffuse in nature. Severe in intensity. Associated nausea. Patient denies any fevers and chills. Denies any urinary symptoms. Review of all other systems is negative except mentioned above ER course: Per ER team, patient's hemoglobin was stable. CT abdomen pelvis shows findings concerning for acute interstitial pancreatitis. Pancreatic ductal stone. Lipase elevated. Liver enzymes within normal limits. PER RN: Plan: GI consult. NPO, pain meds, IV fluids Alert and oriented Commode at bedside with assistance IV: 20G in right forearm Pain: PRN diluadid Diabetic, POC checks O2: on 2L NC while sleeping due to desats, not normally on O2, no home O2
[2025-03-25 10:38] LABS: Hematocrit 35.4 % (37.0-47.0); Hemoglobin 10.5 g/dl (12.0-16.0); Mean Corpuscular HGB Conc 29.7 g/dl (31.0-35.0); Mean Corpuscular Hemoglobin 23.5 pg (27.0-33.0); Mean Corpuscular Volume 79.2 fL (80.0-98.0); NRBC Abs Auto 0.000 X10*3/uL (0.0-0.012); NRBC Pct Auto 0.0 /100WBC (0.0-0.2); Platelet Count 302 X10*3/uL (160-400); Red Blood Count 4.47 X10*6/uL (4.20-5.50); White Blood Count 11.5 X10*3/uL (4.8-10.8)
[2025-03-25 11:01] LABS: Anion Gap 12 (12-20); Blood Urea Nitrogen 13 mg/dL (9-16); Calcium 9.4 mg/dL (8.4-10.2); Carbon Dioxide 28 mmol/L (22-29); Chloride 110 mmol/L (96-108); Creatinine Clr Calc Pharmacy 30.5; Estimated Glomerular Filt Rate 49; Potassium 3.9 mmol/L (3.3-5.1); Sodium 146 mmol/L (135-145)
[2025-03-25 11:11] LABS: Lipase 1355 U/L (8-78)
[2025-03-25 11:38] LABS: Glucose, Whole Blood 132 mg/dL (60-115)
--- NOTE | 2025-03-25 13:52 | P.PNIM_ITS ---
Subjective Subjective Date of Service: 03/25/25 Interval History: Seen and examined this morning Follow-up for abdominal pain, rectal bleeding Having nausea and dry heaving this morning Review of Systems Review of Systems: Yes all other systems are reviewed and are negative Constitutional Constitutional: Denies chills and Denies fever(s) Gastrointestinal Gastrointestinal: Reports nausea and Reports vomiting Physical Exam 2 Vital Signs: Vital Signs: Last Vital Signs Temp 97.0 F 03/25/25 12:00 Pulse 74 03/25/25 12:00 Resp 18 03/25/25 12:00 BP 133/80 03/25/25 12:00 Pulse Ox 96 03/25/25 12:00 O2 Del Method Room Air 03/25/25 12:00 O2 Flow Rate 2 03/25/25 04:31 BMI result Body Mass Index 26.3 Const: Other: appears ill General: alert and awake Nutritional Appearance: average body habitus Orientation/consciousness: patient oriented x3 Resp: Effort & Inspection: normal respiratory effort and able to speak in complete sentences Cardio: Rate: regular rate GI: Other: assessment limited due to dry heaving Inspection: No distended Palpation (GI): Soft to palpation Neuro: General: patient oriented x3, moves all extremities and CN's II-XI intact bilaterally Objective Data Active Medications Acetaminophen (Acetaminophen 325 Mg Tablet) 650 mg PO Q6H PRN PRN Reason: Pain, Mild 1-3,fever,headache Calcium Carbonate (Calcium Carbonate 750 Mg Tab.Chew) 750 mg PO Q4H PRN PRN Reason: Heartburn Dextrose (Dextrose 50 % 25 Gm/50 Ml Syringe) 25 gm IVPUSH Q15M PRN; Protocol PRN Reason: per Hypoglycemia Standing Ord. Glucose (Glucose Gel 15 Gm Gel..Gram.) 15 gm PO Q15M PRN; Protocol PRN Reason: per Hypoglycemia Standing Ord. Hydromorphone HCl (Hydromorphone Hcl 0.5 Mg/0.5 Ml Syringe) 0.5 mg IVPUSH Q4H PRN; Protocol PRN Reason: Breakthrough Pain Last Admin: 03/25/25 10:32 Dose: 0.5 mg Documented By: ARCELIA Insulin Human Lispro (Insulin Lispro 100 Unit/Ml 3 Ml Vial) 0 unit SUBCUT [facility]; Protocol Last Admin: 03/25/25 11:05 Dose: Not Given Documented By: ARCELIA Non-Admin Reason: NPO Magnesium Hydroxide (Milk Of Magnesia 30 Ml Oral.Susp) 30 ml PO DAILY PRN PRN Reason: Constipation Melatonin (Melatonin 3 Mg Tablet) 6 mg PO BEDTIME PRN PRN Reason: Insomnia Ondansetron HCl (Ondansetron Hcl 4 Mg/2 Ml Vial) 4 mg IVPUSH Q8H PRN PRN Reason: Nausea and Vomiting Last Admin: 03/25/25 10:32 Dose: 4 mg Documented By: ARCELIA Pantoprazole Sodium (Pantoprazole Sodium 40 Mg/10 Ml Vial) 40 mg IVPUSH DAILY@0630 [facility] Last Admin: 03/25/25 06:17 Dose: 40 mg Documented By: STEPHY Sodium Chloride (0.9 % Sodium Chloride Flush 3 Ml Syringe) 3 ml IVFLUSH QSHIFT [facility] Last Admin: 03/25/25 07:32 Dose: 3 ml Documented By: ZALUCKJ Labs 03/25/25 10:19 03/25/25 10:19 Labs: Laboratory Results - last 24 hr 03/24/25 03/24/25 03/25/25 18:19 23:14 03:54 MCV 77.9 L 79.9 L MCH 23.7 L 23.5 L MCHC 30.4 L 29.4 L RDW 19.4 H 19.1 H Plt Count 345 280 MPV 11.1 11.2 Immature Gran % (Auto) 0.3 0.3 Neut % (Auto) 60.1 67.5 Lymph % (Auto) 20.1 16.2 L [place] % (Auto) 16.1 H 13.3 H Eos % (Auto) 2.9 2.3 Baso % (Auto) 0.5 0.4 Lymph # (Auto) 1.7 1.5 [place] # (Auto) 1.4 H 1.2 Eos # (Auto) 0.3 0.2 Baso # (Auto) 0.0 0.0 Abs Immat Gran (auto) 0.03 0.03 Absolute Neuts (auto) 5.2 6.1 Absolute Nucleated RBC 0.000 0.000 Nucleated RBC % (auto) 0.0 0.0 PT 16.1 H INR 1.4 H Anion Gap 13 12 Estim Creat Clear Calc 30.1 31.3 Estimated GFR 49 51 POC Glucose Random Glucose 133 H 143 H Calcium 9.8 9.0 D Total Bilirubin 0.9 0.9 AST 24 19 ALT 9 7 Alkaline Phosphatase 80 71 Troponin I High Sens 6.0 Total Protein 6.8 6.0 L Albumin 3.9 3.5 Lipase > 3000 H Urine Color Yellow Urine Appearance Clear Urine pH 8.0 Ur Specific [place] 1.015 Urine Protein Trace Urine Glucose (UA) >=1000 H Urine Ketones Negative Urine Blood Moderate (2+) H Urine Nitrite Negative Ur Leukocyte Esterase Negative Urine RBC 6-10 H Urine WBC 0-5 Ur Squamous Epith Cells 0-2 Urine Bacteria 4+ Hyaline Casts 0-2 Stool Occult Blood POSITIVE 03/25/25 03/25/25 03/25/25 07:30 10:19 11:35 MCV 79.2 L MCH 23.5 L MCHC 29.7 L RDW 19.1 H Plt Count 302 MPV 10.3 Immature Gran % (Auto) Neut % (Auto) Lymph % (Auto) [place] % (Auto) Eos % (Auto) Baso % (Auto) Lymph # (Auto) [place] # (Auto) Eos # (Auto) Baso # (Auto) Abs Immat Gran (auto) Absolute Neuts (auto) Absolute Nucleated RBC 0.000 Nucleated RBC % (auto) 0.0 PT INR Anion Gap 12 Estim Creat Clear Calc 30.5 Estimated GFR 49 POC Glucose 131 H 132 H Random Glucose 142 H Calcium 9.4 Total Bilirubin AST ALT Alkaline Phosphatase Troponin I High Sens Total Protein Albumin Lipase 1355 H Urine Color Urine Appearance Urine pH Ur Specific [place] Urine Protein Urine Glucose (UA) Urine Ketones Urine Blood Urine Nitrite Ur Leukocyte Esterase Urine RBC Urine WBC Ur Squamous Epith Cells Urine Bacteria Hyaline Casts Stool Occult Blood Assessment and Plan (1) Rectal bleed: Status: Acute (2) Acute pancreatitis: Status: Acute Plan This is an 89-year-old female with a past medical history of HTN, HLD, dm, CVA, dysphagia, vertebral artery stenosis, lumbar spinal stenosis, GERD, COPD, CKD, aortic stenosis, anemia presented to the hospital today with a chief complaint of blood in the stool/abdominal pain Acute pancreatitis: CT abdomen pelvis showed 2 mm pancreatic ductal stone NPO, Gentle IVF Gastroenterology consult for further input lipase trending down BRBPR: guiac positive H/H unchanged NPO IV PPI Gastroenterology consult pending hold [employer] for now Mild Hypernatremia due to dehydration IVF follow BMP Diabetes: SSI, POCs transition to diabetic diet when able to take po AFib: Eliquis on hold due to rectal bleeding med rec pending HR currently controlled CKD3 Creatinine her baseline. COPD: No acute exacerbation med rec still not complete at this time DVT prophylaxis: SCD boots Code status: Full code Quality Stroke Does the patient have a stroke diagnosis?: No VTE Prior VTE?: No VTE Risk Level:: Medical - moderate - high VTE Device Contraindication: N/A - Device Ordered VTE Drug Contraindication: Treatment Not Indicated
--- NOTE | 2025-03-25 14:25 | PHA.MEDREC ---
Pharmacy Consult ? Medication Reconciliation Pharmacy has completed the medication reconciliation. Patient is a poor historian. Used pharmacy claims, , and med list from home (sent by neighbor Krystin Millan [phone]). [facility] and Krystin Millan confirmed patient was taking cephalexin for a bone infection in her toe, it was a 10 day course picked up on 03/16. [facility] and report jardiance was never filled however Krystin Millan found the rx bottle in the patients medications at homem, left on med rec.
--- NOTE | 2025-03-25 15:09 | MHC.CM.PN ---
IMM 03/25/25, EMR REVIEWED, PT GI BLEED, CM MET W/PT HOWEVER PT EXTREMELY NAUSEOUS AND UNABLE TO ANSWER ALL QUESTIONS, PT GIVES VERBAL CONSENT FOR CM TO CONTACT HCP/SISTER ABBY, ABBY VERIFIES PT LIVES ALONE, HAS ?[facility] FOR MES AND NO OTHER HOME SERVICES. PT'S GOAL FOR DC IS HOME W/SERVICES. PT VERIFIES PCP/HCP ON FILE ARE CORRECT. DP: PENDING PT EVAL, IF HOME PT WILL NEED ASSISTANCE W/TRANSPORT
[2025-03-25 16:33] LABS: Glucose, Whole Blood 152 mg/dL (60-115)
[2025-03-25 20:23] LABS: Glucose, Whole Blood 127 mg/dL (60-115)
[2025-03-26] VITALS (9 sets, daily range): BP systolic 137–202; BP diastolic 63–98; PULSE 83–145; RESP 16–20; TEMP 36.3–36.8; O2SAT 93–98
[2025-03-26] MEDS: 0.9 % Sodium Chloride Flush 3 ML SYRINGE IVFLUSH ×4 (00:37→20:20)
[2025-03-26 07:07] LABS: Hematocrit 34.7 % (37.0-47.0); Hemoglobin 10.0 g/dl (12.0-16.0); Mean Corpuscular HGB Conc 28.8 g/dl (31.0-35.0); Mean Corpuscular Hemoglobin 23.3 pg (27.0-33.0); Mean Corpuscular Volume 80.7 fL (80.0-98.0); NRBC Abs Auto 0.000 X10*3/uL (0.0-0.012); NRBC Pct Auto 0.0 /100WBC (0.0-0.2); Platelet Count 300 X10*3/uL (160-400); Red Blood Count 4.30 X10*6/uL (4.20-5.50); White Blood Count 10.2 X10*3/uL (4.8-10.8)
[2025-03-26 07:16] LABS: Anion Gap 14 (12-20); Blood Urea Nitrogen 13 mg/dL (9-16); Calcium 9.4 mg/dL (8.4-10.2); Carbon Dioxide 25 mmol/L (22-29); Chloride 111 mmol/L (96-108); Creatinine Clr Calc Pharmacy 32.3; Estimated Glomerular Filt Rate 52; Potassium 4.4 mmol/L (3.3-5.1); Sodium 146 mmol/L (135-145)
[2025-03-26 07:48] LABS: Glucose, Whole Blood 127 mg/dL (60-115)
[2025-03-26 11:58] LABS: Glucose, Whole Blood 117 mg/dL (60-115)
--- NOTE | 2025-03-26 12:46 | P.PNIM_ITS ---
Subjective Subjective Date of Service: 03/26/25 Interval History: Seen and examined this morning Follow-up for abdominal pain, rectal bleeding Having nausea and dry heaving this morning Review of Systems Review of Systems: Yes all other systems are reviewed and are negative Constitutional Constitutional: Denies chills and Denies fever(s) Gastrointestinal Gastrointestinal: Reports nausea and Reports vomiting Physical Exam 2 Vital Signs: Vital Signs: Last Vital Signs Temp 98.2 F 03/26/25 11:10 Pulse 95 03/26/25 11:10 Resp 18 03/26/25 11:10 BP 172/80 H 03/26/25 11:10 Pulse Ox 93 03/26/25 11:10 O2 Del Method Nasal Cannula 03/26/25 11:10 O2 Flow Rate 2 03/26/25 11:10 BMI result Body Mass Index 26.3 Objective Data Active Medications Acetaminophen (Acetaminophen 325 Mg Tablet) 650 mg PO Q6H PRN PRN Reason: Pain, Mild 1-3,fever,headache Calcium Carbonate (Calcium Carbonate 750 Mg Tab.Chew) 750 mg PO Q4H PRN PRN Reason: Heartburn Last Admin: 03/26/25 01:22 Dose: 750 mg Documented By: HOLLY Dextrose (Dextrose 50 % 25 Gm/50 Ml Syringe) 25 gm IVPUSH Q15M PRN; Protocol PRN Reason: per Hypoglycemia Standing Ord. Glucose (Glucose Gel 15 Gm Gel..Gram.) 15 gm PO Q15M PRN; Protocol PRN Reason: per Hypoglycemia Standing Ord. Hydromorphone HCl (Hydromorphone Hcl 0.5 Mg/0.5 Ml Syringe) 0.5 mg IVPUSH Q4H PRN; Protocol PRN Reason: Breakthrough Pain Last Admin: 03/26/25 08:49 Dose: 0.5 mg Documented By: WILL Insulin Human Lispro (Insulin Lispro 100 Unit/Ml 3 Ml Vial) 0 unit SUBCUT [facility]; Protocol Last Admin: 03/26/25 11:55 Dose: Not Given Documented By: WILL Non-Admin Reason: No Insulin Coverage Magnesium Hydroxide (Milk Of Magnesia 30 Ml Oral.Susp) 30 ml PO DAILY PRN PRN Reason: Constipation Melatonin (Melatonin 3 Mg Tablet) 6 mg PO BEDTIME PRN PRN Reason: Insomnia Ondansetron HCl (Ondansetron Hcl 4 Mg/2 Ml Vial) 4 mg IVPUSH Q8H PRN PRN Reason: Nausea and Vomiting Last Admin: 03/26/25 08:48 Dose: 4 mg Documented By: WILL Pantoprazole Sodium (Pantoprazole Sodium 40 Mg/10 Ml Vial) 40 mg IVPUSH DAILY@0630 [facility] Last Admin: 03/26/25 04:57 Dose: 40 mg Documented By: HOLLY Sodium Chloride (0.9 % Sodium Chloride Flush 3 Ml Syringe) 3 ml IVFLUSH QSHIFT [facility] Last Admin: 03/26/25 08:47 Dose: 3 ml Documented By: WILL Labs 03/26/25 06:20 03/26/25 06:20 Labs: Laboratory Results - last 24 hr 03/25/25 03/25/25 03/26/25 16:28 20:16 06:20 MCV 80.7 MCH 23.3 L MCHC 28.8 L RDW 19.4 H Plt Count 300 MPV 11.3 Absolute Nucleated RBC 0.000 Nucleated RBC % (auto) 0.0 Anion Gap 14 Estim Creat Clear Calc 32.3 Estimated GFR 52 POC Glucose 152 H 127 H Random Glucose 123 H Calcium 9.4 03/26/25 03/26/25 07:42 11:09 MCV MCH MCHC RDW Plt Count MPV Absolute Nucleated RBC Nucleated RBC % (auto) Anion Gap Estim Creat Clear Calc Estimated GFR POC Glucose 127 H 117 H Random Glucose Calcium Assessment and Plan (1) Rectal bleed: Status: Acute (2) Acute pancreatitis: Status: Acute Plan 89-year-old female with a past medical history of HTN, HLD, dm, CVA, dysphagia, vertebral artery stenosis, lumbar spinal stenosis, GERD, COPD, CKD, aortic stenosis, anemia presented to the hospital today with a chief complaint of blood in the stool/abdominal pain Acute pancreatitis CT abdomen pelvis showed 2 mm pancreatic ductal stone Gastroenterology consult>ERCP for pancreatic duct stone o/p when pancreatitis resolves lipase trending down advance to clear diet BRBPR guiac positive H/H unchanged IV PPI Gastroenterology consult pending hold Eliquis for now Mild Hypernatremia due to dehydration IVF follow BMP Diabetes 2 SSI, POCs PAFib Eliquis on hold due to rectal bleeding HR currently controlled continue BB CKD3 Creatinine her baseline. COPD No acute exacerbation DVT prophylaxis: SCD boots Code status: Full code Quality Stroke Does the patient have a stroke diagnosis?: No VTE Prior VTE?: No VTE Risk Level:: Medical - moderate - high VTE Device Contraindication: N/A - Device Ordered VTE Drug Contraindication: Treatment Not Indicated
[2025-03-26] MEDS: Metoprolol Succinate ER 50 MG TAB.ER.24H PO (13:12)
[2025-03-26 16:23] LABS: Glucose, Whole Blood 147 mg/dL (60-115)
[2025-03-26 21:06] LABS: Glucose, Whole Blood 151 mg/dL (60-115)
[2025-03-27] MEDS: OLANZapine 10 MG VIAL 5 MG IM ×2 (02:30→22:03)
[2025-03-27 02:50] VITALS: BP 141/59; PULSE 101; RESP 17; TEMP 36.2; O2SAT 99
[2025-03-27 07:24] LABS: Glucose, Whole Blood 129 mg/dL (60-115)
[2025-03-27 07:32] VITALS: BP 138/61; PULSE 66; RESP 18; TEMP 36.4; O2SAT 92
[2025-03-27] MEDS: Metoprolol Succinate ER 50 MG TAB.ER.24H PO (08:51)
[2025-03-27] MEDS: 0.9 % Sodium Chloride Flush 3 ML SYRINGE IVFLUSH (08:51)
--- NOTE | 2025-03-27 10:14 | HO.PM.IMPN ---
Subjective Subjective Date of Service: 03/27/25 Interval History: Seen and examined this morning Follow-up for abdominal pain, rectal bleeding Review of Systems Review of Systems: Yes all other systems are reviewed and are negative Constitutional Constitutional: Denies chills and Denies fever(s) Gastrointestinal Gastrointestinal: Reports nausea and Reports vomiting Physical Exam Exam: Exam: Appearing in no acute distress lung sounds are clear to auscultation heart regular rate rhythm, clear S1, S2 positive bowel sounds, abdomen is soft, nontender neuro patient is alert x3, no focal deficits Vital Signs: Vital Signs: Last Vital Signs Temp 97.6 F 03/27/25 07:32 Pulse 66 03/27/25 07:32 Resp 18 03/27/25 07:32 BP 138/61 03/27/25 07:32 Pulse Ox 92 03/27/25 07:32 O2 Del Method Nasal Cannula 03/27/25 07:32 O2 Flow Rate 2 03/27/25 07:32 BMI result Body Mass Index 26.3 Objective Data Active Medications Acetaminophen (Acetaminophen 325 Mg Tablet) 650 mg PO Q6H PRN PRN Reason: Pain, Mild 1-3,fever,headache Albuterol Sulfate (Albuterol Sulfate 90 Mcg 8 Gm Inhaler) 1 puff INHALE QID PRN PRN Reason: Shortness Of Breath Or Wheezing Alprazolam (Alprazolam 0.25 Mg Tablet) 0.25 mg PO DAILY PRN PRN Reason: Anxiety Ascorbic Acid (Ascorbic Acid 500 Mg Tablet) 500 mg PO DAILY [facility] Last Admin: 03/27/25 08:52 Dose: 500 mg Documented By: ARCELIA Atorvastatin Calcium (Atorvastatin Calcium 40 Mg Tablet) 40 mg PO BEDTIME [facility] Last Admin: 03/26/25 20:17 Dose: 40 mg Documented By: HOLLY Calcium Carbonate (Calcium Carbonate 750 Mg Tab.Chew) 750 mg PO Q4H PRN PRN Reason: Heartburn Last Admin: 03/26/25 01:22 Dose: 750 mg Documented By: HOLLY Cyanocobalamin (Cyanocobalamin (Vitamin B-12) 1,000 Mcg Tablet) 1,000 mcg PO DAILY [facility] Last Admin: 03/27/25 08:52 Dose: 1,000 mcg Documented By: ARCELIA Dextrose (Dextrose 50 % 25 Gm/50 Ml Syringe) 25 gm IVPUSH Q15M PRN; Protocol PRN Reason: per Hypoglycemia Standing Ord. Digoxin (Digoxin 0.125 Mg Tablet) 0.125 mg PO MoWeFr@0900 [facility]; Protocol Empagliflozin (Empagliflozin 25 Mg Tablet) 25 mg PO DAILY [facility] Last Admin: 03/27/25 08:52 Dose: 25 mg Documented By: ARCELIA Famotidine (Famotidine 20 Mg Tablet) 40 mg PO BEDTIME [facility] Last Admin: 03/26/25 20:17 Dose: 40 mg Documented By: HOLLY Furosemide (Furosemide 40 Mg Tablet) 40 mg PO DAILY [facility]; Protocol Last Admin: 03/27/25 08:52 Dose: 40 mg Documented By: ARCELIA Glucose (Glucose Gel 15 Gm Gel..Gram.) 15 gm PO Q15M PRN; Protocol PRN Reason: per Hypoglycemia Standing Ord. Hydralazine HCl (Hydralazine Hcl 20 Mg/Ml Vial) 5 mg IVPUSH Q6H PRN; Protocol PRN Reason: SBP>180 Hydromorphone HCl (Hydromorphone Hcl 0.5 Mg/0.5 Ml Syringe) 0.5 mg IVPUSH Q4H PRN; Protocol PRN Reason: Breakthrough Pain Last Admin: 03/26/25 15:46 Dose: 0.5 mg Documented By: WILL Insulin Human Lispro (Insulin Lispro 100 Unit/Ml 3 Ml Vial) 0 unit SUBCUT [facility]; Protocol Last Admin: 03/27/25 07:25 Dose: Not Given Documented By: ARCELIA Non-Admin Reason: No Insulin Coverage Magnesium Hydroxide (Milk Of Magnesia 30 Ml Oral.Susp) 30 ml PO DAILY PRN PRN Reason: Constipation Meclizine HCl (Meclizine Hcl 12.5 Mg Tablet) 12.5 mg PO TID PRN PRN Reason: Vertigo Melatonin (Melatonin 3 Mg Tablet) 6 mg PO BEDTIME PRN PRN Reason: Insomnia Metoprolol Succinate (Metoprolol Succinate Er 50 Mg Tab.Er.24h) 50 mg PO DAILY [facility]; Protocol Last Admin: 03/27/25 08:51 Dose: 50 mg Documented By: ARCELIA Ondansetron HCl (Ondansetron Hcl 4 Mg/2 Ml Vial) 4 mg IVPUSH Q8H PRN PRN Reason: Nausea and Vomiting Last Admin: 03/26/25 08:48 Dose: 4 mg Documented By: WILL Pantoprazole Sodium (Pantoprazole Sodium 40 Mg/10 Ml Vial) 40 mg IVPUSH DAILY@0630 [facility] Last Admin: 03/27/25 04:56 Dose: 40 mg Documented By: HOLLY Pregabalin (Pregabalin 100 Mg Capsule) 100 mg PO BID [facility] Last Admin: 03/27/25 08:52 Dose: 100 mg Documented By: ARCELIA Sitagliptin Phosphate (Sitagliptin Phosphate 50 Mg Tablet) 25 mg PO DAILY [facility] Last Admin: 03/27/25 08:51 Dose: 25 mg Documented By: ARCELIA Sodium Chloride (0.9 % Sodium Chloride Flush 3 Ml Syringe) 3 ml IVFLUSH QSHIFT [facility] Last Admin: 03/27/25 08:51 Dose: 3 ml Documented By: ARCELIA Tamsulosin HCl (Tamsulosin Hcl 0.4 Mg Capsule) 0.4 mg PO BEDTIME [facility] Last Admin: 03/26/25 20:17 Dose: 0.4 mg Documented By: HOLLY Vitamin D (Cholecalciferol (Vitamin D3) 25 Mcg Tablet) 25 mcg PO DAILY [facility] Last Admin: 03/27/25 08:52 Dose: 25 mcg Documented By: ARCELIA Zolpidem Tartrate (Zolpidem Tartrate 5 Mg Tablet) 5 mg PO BEDTIME PRN PRN Reason: Insomnia Last Admin: 03/26/25 23:14 Dose: 5 mg Documented By: HOLLY Labs 03/26/25 06:20 03/26/25 06:20 Labs: Laboratory Results - last 24 hr 03/26/25 03/26/25 03/26/25 11:09 16:18 21:00 POC Glucose 117 H 147 H 151 H 03/27/25 07:07 POC Glucose 129 H Assessment and Plan (1) Rectal bleed: Status: Acute (2) Acute pancreatitis: Status: Acute Plan 89-year-old female with a past medical history of HTN, HLD, dm, CVA, dysphagia, vertebral artery stenosis, lumbar spinal stenosis, GERD, COPD, CKD, aortic stenosis, anemia presented to the hospital today with a chief complaint of blood in the stool/abdominal pain Acute pancreatitis CT abdomen pelvis showed 2 mm pancreatic ductal stone Gastroenterology consult>ERCP for pancreatic duct stone o/p when pancreatitis resolves o/p lipase trending down advance to solid diet BRBPR guiac positive H/H unchanged/stable s/p IV PPI Mild Hypernatremia due to dehydration IVF follow BMP Diabetes Mellitus 2 SSI, POCs PAFib Eliquis on hold due to rectal bleeding HR currently controlled continue BB CKD3 Creatinine at baseline. COPD No acute exacerbation DVT prophylaxis: SCD boots Code status: Full code PT evaluation pending Quality Stroke Does the patient have a stroke diagnosis?: No VTE Prior VTE?: No VTE Risk Level:: Medical - moderate - high VTE Device Contraindication: N/A - Device Ordered VTE Drug Contraindication: Treatment Not Indicated
[2025-03-27 11:33] LABS: Glucose, Whole Blood 150 mg/dL (60-115)
[2025-03-27 12:00] VITALS: BP 161/71; PULSE 99; RESP 18; TEMP 36.6; O2SAT 96
[2025-03-27 15:14] VITALS: BP 128/82; PULSE 97; RESP 18; TEMP 37; O2SAT 92
[2025-03-27 16:25] LABS: Glucose, Whole Blood 143 mg/dL (60-115)
[2025-03-27 19:48] VITALS: BP 156/76; PULSE 90; RESP 18; TEMP 36.9; O2SAT 92
[2025-03-27 19:57] LABS: Glucose, Whole Blood 149 mg/dL (60-115)
[2025-03-27 20:58] LABS: Hematocrit 36.3 % (37.0-47.0); Hemoglobin 10.4 g/dl (12.0-16.0); Imm Gran Abs Auto 0.03 X10*3/uL (0.00-0.03); Imm Gran Pct Auto 0.3 % (0.0-0.4); Lymphocytes Absolute Auto 1.6 X10*3/uL (1.2-4.9); MANUAL DIFF FLAG SCAN; Mean Corpuscular HGB Conc 28.7 g/dl (31.0-35.0); Mean Corpuscular Hemoglobin 23.3 pg (27.0-33.0); Mean Corpuscular Volume 81.4 fL (80.0-98.0); NRBC Abs Auto 0.000 X10*3/uL (0.0-0.012); NRBC Pct Auto 0.0 /100WBC (0.0-0.2); Platelet Count 266 X10*3/uL (160-400); Red Blood Count 4.46 X10*6/uL (4.20-5.50); SCAN SMEAR FLAG 1; White Blood Count 10.0 X10*3/uL (4.8-10.8)
--- NOTE | 2025-03-27 22:34 | PM.EVENT ---
Event Note Date of Service: 03/27/25 Event Note: Unwitnessed fall: Patient had an unwitnessed fall as reported by the RN. Exam benign CT head, CT C-spine, CT abdomen pelvis showed acute fracture. Fall precautions Mucus plugging: Chest physiotherapy, aspiration precautions. Time Spent With Patient Time: Total time managing care of this patient today ____ minutes.
[2025-03-28 03:42] VITALS: BP 109/55; PULSE 98; RESP 18; TEMP 36.2; O2SAT 94
--- NOTE | 2025-03-28 06:54 | HO.NURTONUR ---
Nurse handover received and acquired care of patient at 1900 03/27/25. Safe-start shift change assessment performed w/ Bed exit alarm active, in room camera in use and call otto within patient reach. Pt. with confusion and hallucinations. At 1945, this director underwriter sales heard bed alarm sounding and immediately afterward heard a sound of furniture moving, from patient room. SOFIA Laughlin at that time entering doorway of pt. room with vitals machine. Pt. found sitting on the floor of her room next to bed and bedside table, leaning on her right side. Pt. awake, alert and yelling at staff to get out of her house. Pt. states she was moving her rocking chair but would not answer questions beyond this. Pt. very restless and agitated, swinging at staff w/ arms. Dr. Ramirez notified by detail technician Maryam Mcmahan of pt. fall. Vital signs obtained and pt. assisted back to bed as pt. refusing to stay on ground d/t confusion. Pt. had moderate formed brown/bergundy stool on commode, reported to Dr. Ramirez. Pt. had CT head, cspine, abdomen/pelvis done. CBC drawn. Hemoglobin 10.4 and Hematocrit of 36.3. Pt. received IM Zyprexa 5mg at 2203 with moderate effect. Pt. remains restless/confused/disoriented and hallucinating. Pt. with 1:1 sitter at bedside for sately at 2300. As of 0500, pt. continues to think she is at home, less restless/agitation. Bed exit alarm and in room camera in use.
[2025-03-28 07:24] LABS: Glucose, Whole Blood 107 mg/dL (60-115)
[2025-03-28 08:00] VITALS: BP 186/88; PULSE 88; RESP 18; TEMP 37.6; O2SAT 95
[2025-03-28] MEDS: 0.9 % Sodium Chloride Flush 3 ML SYRINGE IVFLUSH (08:32)
[2025-03-28] MEDS: Metoprolol Succinate ER 50 MG TAB.ER.24H PO (08:34)
--- NOTE | 2025-03-28 10:35 | PC.NURSE ---
Patient compliant with medications and care, sitter at bedside for safety.
--- NOTE | 2025-03-28 11:02 | P.PNIM_ITS ---
Subjective Subjective Date of Service: 03/28/25 Interval History: Seen and examined this morning Follow-up for abdominal pain, rectal bleeding had a fall overnight without injury Review of Systems Review of Systems: Yes all other systems are reviewed and are negative Constitutional Constitutional: Denies chills and Denies fever(s) Gastrointestinal Gastrointestinal: Reports nausea and Reports vomiting Physical Exam 2 Exam: Exam: Appearing in no acute distress lung sounds are clear to auscultation heart regular rate rhythm, clear S1, S2 positive bowel sounds, abdomen is soft, nontender neuro patient is alert x3, no focal deficits Vital Signs: Vital Signs: Last Vital Signs Temp 99.6 F 03/28/25 08:00 Pulse 88 03/28/25 08:00 Resp 18 03/28/25 08:00 BP 186/88 H 03/28/25 08:00 Pulse Ox 95 03/28/25 08:00 O2 Del Method Room Air 03/28/25 08:00 O2 Flow Rate 2 03/27/25 07:32 BMI result Body Mass Index 26.3 Objective Data Active Medications Acetaminophen (Acetaminophen 325 Mg Tablet) 650 mg PO Q6H PRN PRN Reason: Pain, Mild 1-3,fever,headache Albuterol Sulfate (Albuterol Sulfate 90 Mcg 8 Gm Inhaler) 1 puff INHALE QID PRN PRN Reason: Shortness Of Breath Or Wheezing Alprazolam (Alprazolam 0.25 Mg Tablet) 0.25 mg PO DAILY PRN PRN Reason: Anxiety Last Admin: 03/27/25 17:27 Dose: 0.25 mg Documented By: KIMOPEMOON Ascorbic Acid (Ascorbic Acid 500 Mg Tablet) 500 mg PO DAILY [facility] Last Admin: 03/28/25 08:34 Dose: 500 mg Documented By: DIONISIO Atorvastatin Calcium (Atorvastatin Calcium 40 Mg Tablet) 40 mg PO BEDTIME [facility] Last Admin: 03/27/25 21:58 Dose: 40 mg Documented By: MARIANA Calcium Carbonate (Calcium Carbonate 750 Mg Tab.Chew) 750 mg PO Q4H PRN PRN Reason: Heartburn Last Admin: 03/26/25 01:22 Dose: 750 mg Documented By: HOLLY Cyanocobalamin (Cyanocobalamin (Vitamin B-12) 1,000 Mcg Tablet) 1,000 mcg PO DAILY [facility] Last Admin: 03/28/25 08:33 Dose: 1,000 mcg Documented By: DIONISIO Dextrose (Dextrose 50 % 25 Gm/50 Ml Syringe) 25 gm IVPUSH Q15M PRN; Protocol PRN Reason: per Hypoglycemia Standing Ord. Digoxin (Digoxin 0.125 Mg Tablet) 0.125 mg PO MoWeFr@0900 [facility]; Protocol Last Admin: 03/28/25 08:33 Dose: 0.125 mg Documented By: DIONISIO Empagliflozin (Empagliflozin 25 Mg Tablet) 25 mg PO DAILY [facility] Last Admin: 03/28/25 08:34 Dose: 25 mg Documented By: DIONISIO Famotidine (Famotidine 20 Mg Tablet) 40 mg PO Q48H JAREK Furosemide (Furosemide 40 Mg Tablet) 40 mg PO DAILY [facility]; Protocol Last Admin: 03/28/25 08:34 Dose: 40 mg Documented By: DIONISIO Glucose (Glucose Gel 15 Gm Gel..Gram.) 15 gm PO Q15M PRN; Protocol PRN Reason: per Hypoglycemia Standing Ord. Hydralazine HCl (Hydralazine Hcl 20 Mg/Ml Vial) 5 mg IVPUSH Q6H PRN; Protocol PRN Reason: SBP>180 Hydromorphone HCl (Hydromorphone Hcl 0.5 Mg/0.5 Ml Syringe) 0.5 mg IVPUSH Q4H PRN; Protocol PRN Reason: Breakthrough Pain Last Admin: 03/26/25 15:46 Dose: 0.5 mg Documented By: WILL Insulin Human Lispro (Insulin Lispro 100 Unit/Ml 3 Ml Vial) 0 unit SUBCUT QIDACHS [facility]; Protocol Last Admin: 03/28/25 07:27 Dose: Not Given Documented By: DIONISIO Non-Admin Reason: No Insulin Coverage Magnesium Hydroxide (Milk Of Magnesia 30 Ml Oral.Susp) 30 ml PO DAILY PRN PRN Reason: Constipation Meclizine HCl (Meclizine Hcl 12.5 Mg Tablet) 12.5 mg PO TID PRN PRN Reason: Vertigo Melatonin (Melatonin 3 Mg Tablet) 6 mg PO BEDTIME PRN PRN Reason: Insomnia Metoprolol Succinate (Metoprolol Succinate Er 50 Mg Tab.Er.24h) 50 mg PO DAILY [facility]; Protocol Last Admin: 03/28/25 08:34 Dose: 50 mg Documented By: DIONISIO Ondansetron HCl (Ondansetron Hcl 4 Mg/2 Ml Vial) 4 mg IVPUSH Q8H PRN PRN Reason: Nausea and Vomiting Last Admin: 03/26/25 08:48 Dose: 4 mg Documented By: WILL Pregabalin (Pregabalin 100 Mg Capsule) 100 mg PO BID [facility] Last Admin: 03/28/25 08:33 Dose: 100 mg Documented By: DIONISIO Sitagliptin Phosphate (Sitagliptin Phosphate 50 Mg Tablet) 25 mg PO DAILY [facility] Last Admin: 03/28/25 08:34 Dose: 25 mg Documented By: DIONISIO Sodium Chloride (0.9 % Sodium Chloride Flush 3 Ml Syringe) 3 ml IVFLUSH QSHIFT [facility] Last Admin: 03/28/25 08:32 Dose: 3 ml Documented By: DIONISIO Tamsulosin HCl (Tamsulosin Hcl 0.4 Mg Capsule) 0.4 mg PO BEDTIME [facility] Last Admin: 03/27/25 22:22 Dose: 0.4 mg Documented By: MARIANA Vitamin D (Cholecalciferol (Vitamin D3) 25 Mcg Tablet) 25 mcg PO DAILY [facility] Last Admin: 03/28/25 08:34 Dose: 25 mcg Documented By: DIONISIO Labs 03/27/25 20:52 03/26/25 06:20 Labs: Laboratory Results - last 24 hr 03/27/25 03/27/25 03/27/25 11:27 16:11 19:53 MCV MCH MCHC RDW Plt Count MPV Immature Gran % (Auto) Neut % (Auto) Lymph % (Auto) [place] % (Auto) Eos % (Auto) Baso % (Auto) Lymph # (Auto) [place] # (Auto) Eos # (Auto) Baso # (Auto) Abs Immat Gran (auto) Absolute Neuts (auto) Absolute Nucleated RBC Nucleated RBC % (auto) Smear Tech's Comments POC Glucose 150 H 143 H 149 H 03/27/25 03/28/25 20:52 07:15 MCV 81.4 MCH 23.3 L MCHC 28.7 L RDW 19.4 H Plt Count 266 MPV 10.7 Immature Gran % (Auto) 0.3 Neut % (Auto) 62.0 Lymph % (Auto) 16.1 L [place] % (Auto) 18.7 H Eos % (Auto) 2.5 Baso % (Auto) 0.4 Lymph # (Auto) 1.6 [place] # (Auto) 1.9 H Eos # (Auto) 0.3 Baso # (Auto) 0.0 Abs Immat Gran (auto) 0.03 Absolute Neuts (auto) 6.2 Absolute Nucleated RBC 0.000 Nucleated RBC % (auto) 0.0 Smear Tech's Comments VERIFIED POC Glucose 107 Assessment and Plan (1) Rectal bleed: Status: Acute (2) Acute pancreatitis: Status: Acute Plan 89-year-old female with a past medical history of HTN, HLD, dm, CVA, dysphagia, vertebral artery stenosis, lumbar spinal stenosis, GERD, COPD, CKD, aortic stenosis, anemia presented to the hospital today with a chief complaint of blood in the stool/abdominal pain Fall overnight all imaging studies neg no acute trauma PT rec STR Acute pancreatitis. resolved CT abdomen pelvis showed 2 mm pancreatic ductal stone Gastroenterology consult>ERCP for pancreatic duct stone o/p when pancreatitis resolves o/p lipase trending down advanced to solid diet BRBPR guiac positive H/H unchanged/stable s/p IV PPI Mild Hypernatremia due to dehydration IVF follow BMP Diabetes Mellitus 2 SSI, POCs PAFib Eliquis on hold due to rectal bleeding HR currently controlled continue BB CKD3 Creatinine at baseline. COPD No acute exacerbation DVT prophylaxis: SCD boots Code status: Full code PT rec STR Quality Stroke Does the patient have a stroke diagnosis?: No VTE Prior VTE?: No VTE Risk Level:: Medical - moderate - high VTE Device Contraindication: N/A - Device Ordered VTE Drug Contraindication: Treatment Not Indicated
--- NOTE | 2025-03-28 11:48 | MHC.CM.PN ---
EMR REVIEWED, PT W/ GI BLED/PANCREATITIS AND FALL OVER NOC, CM MET W/PT TO DISCUSS DISPO, PT PREFERS [facility], REF PLACED, CM TO EXAPAND IF NO OFFER, CM WILL CONT TO FOLLOW DC NEEDS.
[2025-03-28 11:49] LABS: Glucose, Whole Blood 113 mg/dL (60-115)
[2025-03-28] MEDS: Umeclidinium/Vilanterol 62.5/25 BLST.W.DEV 1 PUFF INHALE (12:23)
[2025-03-28 12:24] VITALS: PULSE 97; RESP 18; O2SAT 91
[2025-03-28 12:31] LABS: Anion Gap 12 (12-20); Blood Urea Nitrogen 20 mg/dL (9-16); Calcium 9.1 mg/dL (8.4-10.2); Carbon Dioxide 27 mmol/L (22-29); Chloride 111 mmol/L (96-108); Creatinine Clr Calc Pharmacy 30.2; Estimated Glomerular Filt Rate 49; Lipase 35 U/L (8-78); Potassium 3.2 mmol/L (3.3-5.1); Sodium 147 mmol/L (135-145)
[2025-03-28 15:46] VITALS: BP 132/84; PULSE 85; RESP 18; TEMP 37.1; O2SAT 96
[2025-03-28 16:27] LABS: Glucose, Whole Blood 115 mg/dL (60-115)
[2025-03-28 19:20] VITALS: BP 111/59; PULSE 99; RESP 17; TEMP 37.3; O2SAT 90
[2025-03-28 20:10] LABS: Glucose, Whole Blood 125 mg/dL (60-115)
[2025-03-28 23:39] VITALS: BP 116/69; PULSE 91; RESP 16; TEMP 36.4; O2SAT 93
[2025-03-29] VITALS (10 sets, daily range): BP systolic 99–174; BP diastolic 50–81; PULSE 81–112; RESP 17–18; TEMP 36.2–37; O2SAT 94–97
[2025-03-29] MEDS: Umeclidinium/Vilanterol 62.5/25 BLST.W.DEV 1 PUFF INHALE (07:46)
[2025-03-29 07:52] LABS: Glucose, Whole Blood 116 mg/dL (60-115)
[2025-03-29 09:31] LABS: Glucose, Whole Blood 107 mg/dL (60-115)
[2025-03-29] MEDS: Metoprolol Succinate ER 50 MG TAB.ER.24H PO (10:28)
[2025-03-29] MEDS: 0.9 % Sodium Chloride Flush 3 ML SYRINGE IVFLUSH ×3 (10:32→21:36)
[2025-03-29 11:27] LABS: Glucose, Whole Blood 176 mg/dL (60-115)
--- NOTE | 2025-03-29 11:37 | MHC.CM.PN ---
CM received a call from Patient's Son/HCP/Enrique. Enrique is driving in from [place] and asking to discuss dc planning with Patient and family, once they arrive tomorrow. CM told Son to have RN call for CM and CM will address all questions.
--- NOTE | 2025-03-29 12:30 | PC.NURSE ---
Pt was working in room with patient, pt was dizzy upon standing, pt then sat down dizziness resolving - then working with PT doing some bedside exercises then per PT pt began to fade closing eyes, stating things were getting blurry rapid response called. BP 133/71 HR 98. POC WNL. Pt laid down then stating things clearing up. Pt put on tele. Provider stated to monitor for now.
--- NOTE | 2025-03-29 15:08 | P.PNIM_ITS ---
Subjective Subjective Date of Service: 03/29/25 Interval History: Patient seen examined at bedside this morning, patient had rapid response called earlier today, for orthostatic hypotension. Patient at this time says that she is feeling okay, however weak. Review of Systems Review of Systems: Yes all other systems are reviewed and are negative Physical Exam 2 Exam: Exam: General: AxOx3, No acute distress Head: AT/NC ENT: Moist mucous membranes Neck: supple CVS; RRR, S1 S2 normal Lungs: Clear bilateral breath sounds, no wheezes or crackles Abd: Soft non tender, non distended Ext: No edema and no calf tenderness MSK: moving all 4 limbs Skin: No cyanosis or edema Psych: Cooperative with exam Neurology: no focal deficit Vital Signs: Vital Signs: Last Vital Signs Temp 98.6 F 03/29/25 08:00 Pulse 100 03/29/25 13:39 Resp 18 03/29/25 08:00 BP 174/79 H 03/29/25 13:39 Pulse Ox 96 03/29/25 13:39 O2 Del Method Room Air 03/29/25 08:00 O2 Flow Rate 2 03/27/25 07:32 BMI result Body Mass Index 26.3 Objective Data Active Medications Acetaminophen (Acetaminophen 325 Mg Tablet) 650 mg PO Q6H PRN PRN Reason: Pain, Mild 1-3,fever,headache Albuterol Sulfate (Albuterol Sulfate 90 Mcg 8 Gm Inhaler) 1 puff INHALE QID PRN PRN Reason: Shortness Of Breath Or Wheezing Alprazolam (Alprazolam 0.25 Mg Tablet) 0.25 mg PO DAILY PRN PRN Reason: Anxiety Last Admin: 03/27/25 17:27 Dose: 0.25 mg Documented By: RACELIA Ascorbic Acid (Ascorbic Acid 500 Mg Tablet) 500 mg PO DAILY [facility] Last Admin: 03/29/25 10:28 Dose: 500 mg Documented By: GURPREET Atorvastatin Calcium (Atorvastatin Calcium 40 Mg Tablet) 40 mg PO BEDTIME [facility] Last Admin: 03/28/25 21:39 Dose: Not Given Documented By: MARIANA Non-Admin Reason: NPO Calcium Carbonate (Calcium Carbonate 750 Mg Tab.Chew) 750 mg PO Q4H PRN PRN Reason: Heartburn Last Admin: 03/26/25 01:22 Dose: 750 mg Documented By: HOLLY Cyanocobalamin (Cyanocobalamin (Vitamin B-12) 1,000 Mcg Tablet) 1,000 mcg PO DAILY [facility] Last Admin: 03/29/25 10:28 Dose: 1,000 mcg Documented By: GURPREET Dextrose (Dextrose 50 % 25 Gm/50 Ml Syringe) 25 gm IVPUSH Q15M PRN; Protocol PRN Reason: per Hypoglycemia Standing Ord. Digoxin (Digoxin 0.125 Mg Tablet) 0.125 mg PO MoWeFr@0900 [facility]; Protocol Last Admin: 03/28/25 08:33 Dose: 0.125 mg Documented By: DOBROKarla Empagliflozin (Empagliflozin 25 Mg Tablet) 25 mg PO DAILY [facility] Last Admin: 03/29/25 10:29 Dose: 25 mg Documented By: GURPREET Famotidine (Famotidine 20 Mg Tablet) 40 mg PO Q48H JAREK Furosemide (Furosemide 40 Mg Tablet) 40 mg PO DAILY [facility]; Protocol Last Admin: 03/29/25 10:29 Dose: 40 mg Documented By: GURPREET Glucose (Glucose Gel 15 Gm Gel..Gram.) 15 gm PO Q15M PRN; Protocol PRN Reason: per Hypoglycemia Standing Ord. Hydralazine HCl (Hydralazine Hcl 20 Mg/Ml Vial) 5 mg IVPUSH Q6H PRN; Protocol PRN Reason: SBP>180 Hydromorphone HCl (Hydromorphone Hcl 0.5 Mg/0.5 Ml Syringe) 0.5 mg IVPUSH Q4H PRN; Protocol PRN Reason: Breakthrough Pain Last Admin: 03/28/25 12:37 Dose: 0.5 mg Documented By: PREM Insulin Human Lispro (Insulin Lispro 100 Unit/Ml 3 Ml Vial) 0 unit SUBCUT QIDACHS [facility]; Protocol Last Admin: 03/29/25 11:37 Dose: Not Given Documented By: GURPREET Non-Admin Reason: ate breakfast at 1030 not having lunch now Magnesium Hydroxide (Milk Of Magnesia 30 Ml Oral.Susp) 30 ml PO DAILY PRN PRN Reason: Constipation Meclizine HCl (Meclizine Hcl 12.5 Mg Tablet) 12.5 mg PO TID PRN PRN Reason: Vertigo Melatonin (Melatonin 3 Mg Tablet) 6 mg PO BEDTIME PRN PRN Reason: Insomnia Metoprolol Succinate (Metoprolol Succinate Er 50 Mg Tab.Er.24h) 50 mg PO DAILY [facility]; Protocol Last Admin: 03/29/25 10:28 Dose: 50 mg Documented By: GURPREET Ondansetron HCl (Ondansetron Hcl 4 Mg/2 Ml Vial) 4 mg IVPUSH Q8H PRN PRN Reason: Nausea and Vomiting Last Admin: 03/26/25 08:48 Dose: 4 mg Documented By: WILL Pregabalin (Pregabalin 100 Mg Capsule) 100 mg PO BID [facility] Last Admin: 03/29/25 10:28 Dose: 100 mg Documented By: GURPREET Sitagliptin Phosphate (Sitagliptin Phosphate 50 Mg Tablet) 25 mg PO DAILY [facility] Last Admin: 03/29/25 10:29 Dose: 25 mg Documented By: GURPREET Sodium Chloride (0.9 % Sodium Chloride Flush 3 Ml Syringe) 3 ml IVFLUSH QSHIFT [facility] Last Admin: 03/29/25 10:32 Dose: 3 ml Documented By: GURPREET Tamsulosin HCl (Tamsulosin Hcl 0.4 Mg Capsule) 0.4 mg PO BEDTIME [facility] Last Admin: 03/28/25 21:39 Dose: Not Given Documented By: MARIANA Non-Admin Reason: NPO Vitamin D (Cholecalciferol (Vitamin D3) 25 Mcg Tablet) 25 mcg PO DAILY [facility] Last Admin: 03/29/25 10:28 Dose: 25 mcg Documented By: GURPREET Labs 03/27/25 20:52 03/28/25 12:13 Labs: Laboratory Results - last 24 hr 03/28/25 03/28/25 03/29/25 16:24 20:04 07:45 POC Glucose 115 125 H 116 H 03/29/25 03/29/25 09:28 11:20 POC Glucose 107 176 H Assessment and Plan (1) Paroxysmal atrial fibrillation: Status: Acute (2) Carotid artery disease: Status: Acute (3) Type 2 diabetes mellitus with hyperglycemia: Status: Acute Plan 89-year-old female with a past medical history of HTN, HLD, dm, CVA, dysphagia, vertebral artery stenosis, lumbar spinal stenosis, GERD, COPD, CKD, aortic stenosis, anemia presented to the hospital today with a chief complaint of blood in the stool/abdominal pain Acute pancreatitis. resolved CT abdomen pelvis showed 2 mm pancreatic ductal stone Gastroenterology consult>ERCP for pancreatic duct stone o/p when pancreatitis resolves o/p lipase trending down Orthostatic hypotension fall preacautions encourage PO fluid intake will place on telemetry, will monitor for any episodes of arrhythmia GI Bleed guiac positive H/H unchanged/stable s/p IV PPI Diabetes Mellitus 2 SSI, POCs PAFib Eliquis on hold due to rectal bleeding HR currently controlled continue BB CKD3 Creatinine at baseline. COPD No acute exacerbation DVT prophylaxis: SCD boots Code status: Full code Quality Stroke Does the patient have a stroke diagnosis?: No VTE Prior VTE?: No VTE Risk Level:: Medical - moderate - high VTE Device Contraindication: N/A - Device Ordered VTE Drug Contraindication: Treatment Not Indicated
[2025-03-29 16:38] LABS: Glucose, Whole Blood 104 mg/dL (60-115)
[2025-03-29 21:06] LABS: Glucose, Whole Blood 144 mg/dL (60-115)
[2025-03-30 04:00] VITALS: BP 102/52; PULSE 82; RESP 16; TEMP 36.1; O2SAT 93
[2025-03-30 07:37] LABS: Glucose, Whole Blood 129 mg/dL (60-115)
[2025-03-30] MEDS: Umeclidinium/Vilanterol 62.5/25 BLST.W.DEV 1 PUFF INHALE (07:52)
[2025-03-30 07:53] VITALS: PULSE 82; RESP 16; O2SAT 94
[2025-03-30 07:56] VITALS: BP 108/60; PULSE 89; RESP 18; TEMP 36.3; O2SAT 93
[2025-03-30] MEDS: 0.9 % Sodium Chloride Flush 3 ML SYRINGE IVFLUSH (09:16)
[2025-03-30] MEDS: Metoprolol Succinate ER 50 MG TAB.ER.24H PO (09:21)
[2025-03-30 11:55] LABS: Glucose, Whole Blood 178 mg/dL (60-115)
[2025-03-30 12:00] VITALS: BP 112/67; PULSE 89; RESP 18; TEMP 36.9; O2SAT 92
--- NOTE | 2025-03-30 12:01 | MHC.CM.PN ---
CM met with Patient to discuss dc planning. PT is recommending STR but because Patient's first choice facility[facility] does not have a bed, Patient wants to go home and resume [facility]. With Patient's permission, JASE spoke with Son @ listed# to inform him of his Mother's decision. is aware.
--- NOTE | 2025-03-30 13:03 | MHC.CM.PN ---
CM met with Patient and her v2 Sons ans her [id number]; all are in agreement to the dc plan/home with [facility] today.
--- NOTE | 2025-03-30 13:31 | MHC.CM.PN ---
IMM was addressed with Patient; original was given to her and a copy has been placed on the chart.
--- NOTE | 2025-03-30 13:43 | PM.DS ---
DS: Providers Provider Date of Service: 03/30/25 Date of admission: 03/24/25 21:27 Date of discharge: 03/30/25 Primary care physician: Solange Jacobs MD Consults: 03/24/25 21:27 Consult to Gastroenterology Routine Consulting Provider: [facility] Reason for consultation: pancreatitis;gi bleed; stone 03/27/25 20:10 Consult to Gastroenterology Routine Consulting Provider: [facility] Reason for consultation: GI bleed Attending physician on discharge: Neel Thompson Discharging clinician: Neel Thompson DS: Diagnosis Discharge Diagnosis (1) Paroxysmal atrial fibrillation: Status: Acute (2) Carotid artery disease: Status: Acute (3) Type 2 diabetes mellitus with hyperglycemia: Status: Acute DS: Summary Hospital Course Hospital Course: 89-year-old female with past medical history significant for HTN, HLD, T2 dm, CVA, dysphagia, vertebral arterial stenosis, lumbar spinal stenosis, GERD, COPD, CKD, aortic stenosis, anemia who presented to hospital for lower GI bleed and abdominal pain. CT abdomen and pelvis showed 2 mm pancreatic ductal stone, seen by GI who suggested ERCP in outpatient setting when pancreatitis resolves. Patient tolerating p.o. fluid intake. Patient suggested on discharging to [facility] facility, however elected for home with home health. Acute pancreatitis. resolved GI Bleed CT abdomen pelvis showed 2 mm pancreatic ductal stone Gastroenterology consult>ERCP for pancreatic duct stone o/p when pancreatitis resolves o/p Orthostatic hypotension, resolved encourage PO fluid intake Diabetes Mellitus 2 continue meds PAFib HR currently controlled continue BB, no bleeding, follow up w/ cardio as OP CKD3 Creatinine at baseline. COPD No acute exacerbation Time Attestation Discharge Coordination Time (in mins): greater than 35 minutes Quality: Safe Use of Opioids Does Pt have an Active Cancer Diagnosis on the Problem List?: No Quality: Stroke Does the patient have a stroke diagnosis?: No Physical Exam Exam: Exam: General: AxOx3, No acute distress Head: AT/NC ENT: Moist mucous membranes Neck: supple CVS; RRR, S1 S2 normal Lungs: Clear bilateral breath sounds, no wheezes or crackles Abd: Soft non tender, non distended Ext: No edema and no calf tenderness MSK: moving all 4 limbs Skin: No cyanosis or edema Psych: Cooperative with exam Neurology: no focal deficit Vital Signs: Vital Signs: Last Vital Signs Temp 98.4 F 03/30/25 12:00 Pulse 89 03/30/25 12:00 Resp 18 03/30/25 12:00 BP 112/67 03/30/25 12:00 Pulse Ox 92 03/30/25 12:00 O2 Del Method Room Air 03/30/25 12:00 O2 Flow Rate 2 03/27/25 07:32 BMI result Body Mass Index 26.3 DS: Data Data Completed and Pending Labs on day of discharge: Laboratory Results - last 24 hr 03/29/25 03/29/25 03/30/25 16:35 21:02 07:30 POC Glucose 104 144 H 129 H 03/30/25 11:40 POC Glucose 178 H Discharge Plan Discharge Anticipated Discharge Date/Time: 03/30/25 13:30 Patient Disposition: Home Health Service Discharge Diagnosis: Pancreatitis, lower GI bleed Referrals: Suzanne BUITRAGO [Outside] - 1 Week Niko Farmer MD [Physician, Gastroenterology] - 2 Weeks Problems: Rectal bleed; Pancreatitis Po,Solange Giles MD [Primary Care Provider, Internal Medicine] - 1 Week Steven Cueto MD [Physician, Cardiology] - 1 Week Problems: Paroxysmal atrial fibrillation; Rectal bleed Discharge Medications: Continued (DME) lancets [FreeStyle Lancets] 28 gauge misc See Rx Instructions .ROUTE .MEDSUPPLY Qty: 100 3RF Rx Instructions: use to test sugar once a day cyanocobalamin (vitamin B-12) [Vitamin B-12] 1,000 mcg tablet 1,000 mcg PO DAILY Qty: 90 0RF ascorbic acid (vitamin C) [Vitamin C] 500 mg tablet 500 mg PO DAILY Qty: 90 1RF cholecalciferol (vitamin D3) 25 mcg (1,000 unit) capsule 25 mcg PO DAILY Qty: 90 1RF (DME) incontinence pad, liner, disp Pad See Rx Instructions .Route Qty: 60 5RF Rx Instructions: As directed (DME) FreeStyle Lite Strips Strip See Rx Instructions .ROUTE .MEDSUPPLY Qty: 100 3RF Rx Instructions: As directed check the BS QD (DME) Adult pull ups See Rx Instructions .Route .MEDSUPPLY Qty: 300 11RF Rx Instructions: As directed atorvastatin [Lipitor] 40 mg tablet 40 mg PO BEDTIME Qty: 90 3RF umeclidinium-vilanterol [Anoro Ellipta] 62.5-25 mcg/actuation blister with device 1 inh inhalation DAILY Qty: 3 3RF pregabalin 100 mg capsule 100 mg PO Q12H 31 Days Qty: 62 2RF alprazolam 0.25 mg tablet 0.25 mg PO DAILY PRN (Reason: anxiety) Qty: 20 0RF furosemide 40 mg tablet 40 mg PO DAILY Qty: 90 0RF zolpidem 5 mg tablet 5 mg PO BEDTIME PRN (Reason: insomnia) Qty: 30 0RF meclizine 12.5 mg Tablet 12.5 mg PO TID PRN (Reason: Vertigo) digoxin 125 mcg (0.125 mg) tablet 125 mcg PO MOWEFR albuterol sulfate 90 mcg/actuation Hfa Aerosol Inhaler 1 inh INHALATION QID PRN (Reason: Shortness Of Breath Or Wheezing) empagliflozin 25 mg Tablet 25 mg PO DAILY tramadol 50 mg tablet 50 mg PO BID PRN (Reason: pain) nystatin 100,000 unit/gram powder 1 appl topical DAILY sitagliptin 25 mg Tablet 25 mg PO DAILY diclofenac sodium 1 % gel 1 ea topical QID PRN (Reason: Pain) metoprolol succinate 50 mg tablet extended release 24 hr 50 mg PO DAILY (DME) P[employer] See Rx Instructions .Route .MEDSUPPLY Qty: 1 0RF Rx Instructions: As directed tamsulosin 0.4 mg capsule 0.4 mg PO BEDTIME 90 Days Qty: 90 3RF famotidine 40 mg tablet 40 mg PO BEDTIME Qty: 90 3RF Held Eliquis 2.5 mg tablet 2.5 mg PO BID Qty: 180 3RF Hold Instructions: Resume on 04/06/25. Discontinued cephalexin 500 mg capsule 500 mg PO BID Patient Comments: 03/25/25: Per [facility]: for a bone infection in toe. Picked up 03/16/25 x10 day supply Discharge Orders: Discharge Order (Routine); Ordered 03/30/25 Ordered By: Neel Thompson Activity on Discharge: As tolerated Stand Alone Forms: Patient Portal Discharge page Print Language: [place] Island[place] Care Plan Goals: Follow up with Gastroenterology for outpatient ERCP, monitor for any signs of bleeding, follow up with Cardiology given bright red blood per rectume Health Concerns: Acute pancreatitis, atrial fibrillation, lower GI bleed Plan of Treatment: continue with PO fluids, follow up with GI as outpatient for possible ERCP, hold anticoagulation, visit primary care provider and heating mechanic to restart Assessment: 89-year-old female with past medical history significant for HTN, HLD, T2 dm, CVA, dysphagia, vertebral arterial stenosis, lumbar spinal stenosis, GERD, COPD, CKD, aortic stenosis, anemia who presented to hospital for lower GI bleed and abdominal pain. CT abdomen and pelvis showed 2 mm pancreatic ductal stone, seen by GI who suggested ERCP in outpatient setting when pancreatitis resolves. Patient tolerating p.o. fluid intake. Patient discharged home w/ home healt care Patient Instructions: Pancreatitis (DC)
== END 2025-03-30 14:11 | disposition home health service (06) | DRG 439 ==
LOC: HO.ED 21:23 → HO.EDOVER 21:38 → HO.IMC 03-25 07:39
PROVIDERS: Nurse Practitioner Acute Care; Physician Assistant Medical; Admitting Provider Hospitalist; Emergency Provider Emergency Medicine; PCP Internal Medicine; Visit Provider Student in an Organized Health Care Education/Training Program
DX: K85.80 Other acute pancreatitis without necrosis or infection (principal); E87.0 Hyperosmolality and hypernatremia; I13.0 Hypertensive heart and chronic kidney disease with heart failure and stage 1 through stage 4 chronic kidney disease, or unspecified chronic kidney disease; I50.22 Chronic systolic (congestive) heart failure; K62.5 Hemorrhage of anus and rectum; K92.0 Hematemesis; E86.0 Dehydration; J44.9 Chronic obstructive pulmonary disease, unspecified; K86.89 Other specified diseases of pancreas; I48.0 Paroxysmal atrial fibrillation; I25.10 Atherosclerotic heart disease of native coronary artery without angina pectoris; I95.9 Hypotension, unspecified; F03.90 Unspecified dementia, unspecified severity, without behavioral disturbance, psychotic disturbance, mood disturbance, and anxiety; N18.30 Chronic kidney disease, stage 3 unspecified; W19.XXXA Unspecified fall, initial encounter; E11.22 Type 2 diabetes mellitus with diabetic chronic kidney disease; Z87.891 Personal history of nicotine dependence; Z79.01 Long term (current) use of anticoagulants; Z79.899 Other long term (current) drug therapy
CPT/HCPCS: 36415; 70450; 71045; 72125; 74018; 74176; 74177; 80048; 80053; 81001; 81003; 82272; 82947; 83690; 84484; 85025; 85027; 85610; 93005; 94640; 94664; 94799; 97162; 99285; J1171; J2270; J2359; J2405; J2470; J2765; Q9967

== ENCOUNTER → 2025-03-24 17:33 | Outpatient (BNV) | payer MEDICARE, OTHER, SELFPAY | PROVIDERS: Admitting Provider Hospitalist; Emergency Provider Emergency Medicine; PCP Internal Medicine; Visit Provider Internal Medicine Cardiovascular Disease | DX: I48.91 Unspecified atrial fibrillation (principal) | CPT/HCPCS: 93010 ==

== ENCOUNTER → 2025-03-24 17:43 | Outpatient (BNV) | payer MEDICARE, OTHER, SELFPAY | PROVIDERS: Admitting Provider Hospitalist; Emergency Provider Emergency Medicine; PCP Internal Medicine; Visit Provider Radiology Diagnostic Radiology | DX: K86.89 Other specified diseases of pancreas (principal); K86.2 Cyst of pancreas; N81.5 Vaginal enterocele | CPT/HCPCS: 74177 ==

== ENCOUNTER → 2025-03-24 21:27 | Outpatient (BNV) | payer MEDICARE, OTHER, SELFPAY | PROVIDERS: Admitting Provider Hospitalist; Emergency Provider Emergency Medicine; PCP Internal Medicine; Visit Provider Physician Assistant Medical | DX: K62.5 Hemorrhage of anus and rectum (principal); K85.90 Acute pancreatitis without necrosis or infection, unspecified | CPT/HCPCS: 99232 ==

== ENCOUNTER → 2025-03-24 21:27 | Outpatient (BNV) | payer MEDICARE, OTHER, SELFPAY | PROVIDERS: Admitting Provider Hospitalist; Emergency Provider Emergency Medicine; PCP Internal Medicine; Visit Provider Internal Medicine Gastroenterology | DX: K85.90 Acute pancreatitis without necrosis or infection, unspecified (principal); K92.1 Melena | CPT/HCPCS: 99222 ==

== ENCOUNTER 2025-04-06 10:50 | Outpatient (AMB) | payer MEDICARE, OTHER, SELFPAY ==
--- NOTE | 2025-04-06 10:53 | MHC.OFFVIS ---
Vital Signs 04/06/25 10:56 Height 4 ft 10 in Weight 127 lb 13.89 oz BMI 26.7 BP 95/53 L Blood Pressure Location Lt radial Position Sitting Pulse 81 Intake Visit Reasons: 3m Intake Note: Zuleyma presents in the office as a 3 month follow up. CC: States that she is having constipation. Sluice Tender Required: No Allergies ciprofloxacin Allergy (Severe, Verified 04/06/25 10:56) unknown aspirin (Aspirin) Allergy (Unknown, Verified 04/06/25 10:56) UNKNOWN cefuroxime Allergy (Unknown, Verified 04/06/25 10:56) Unknown celecoxib (From Celebrex) Allergy (Unknown, Verified 04/06/25 10:56) UNKNOWN metformin Allergy (Unknown, Verified 04/06/25 10:56) diarrhea risedronate sodium (From Actonel) Allergy (Unknown, Verified 04/06/25 10:56) UNKNOWN Sulfa (Sulfonamide Antibiotics) Allergy (Unknown, Verified 04/06/25 10:56) unknown bupropion Adverse Reaction (Intermediate, Verified 04/06/25 10:56) tremor ferrous sulfate Adverse Reaction (Intermediate, Verified 04/06/25 10:56) tremors sertraline Adverse Reaction (Intermediate, Verified 04/06/25 10:56) tremors HPI Comments Details: This is an 89-year-old female with past medical history of obesity, GERD, type 2 diabetes, hyperlipidemia, hypertension, carotid artery disease, she TIA, diverticulosis, who presents for follow up Patient is accompanied by her to-be daughter in law. Initial visit 05/10/22: She tells me that she has had multiple episodes of lower GI bleeding, in each time the been attributed to diverticular bleeding. Previously has been seen by Dr. Mills as well. She most recently, she was admitted to [facility] in March once again with lower GI bleeding. Underwent an EGD/colonoscopy during that admission (Dr. Richter) which was reportedly normal except diverticulosis. This is as per the discharge summary, detailed procedure note is not available. Of note, patient had a recent TIA, and is on Plavix, which she has continued as per her neurologist advice. Outside of this, patient also reports intermittent episodes of fecal incontinence. She does not report any diarrhea or constipation with this. Stool consistency otherwise is formed, and regular. Does not have to strain. When she does have an episode of fecal incontinence, the stool that leaks is soft or even formed. Obstetric history includes vaginal deliver of 6 out of 7 kids including history of instrument assisted . Babies weight ranged from 8-10 lbs. 08/26/22: Report improvement in abd cramping and diarrhea. Reports persistent lower back spasms. Today main CC is difficulty swallowing certain textures such as steak, turkey. Intermittent. Sometimes has to throw this up to feel better. As above most recent EGD was in Mar 2022 and reportedly normal. Barium swallow 11/2021 without any strictures or webs noted. Was recently hospitalised at [facility] again last month for COPD exacerbation. Reports scant rectal bleeding on wiping during those days which resolved a few days after discharge. BP noted to be on softer side today however pt does not report any lightheadedness or dizziness. Able to get up without any difficulty and use her walker. 03/03/23: Here with her sister. Reports hospitalisation to [facility] x 2 since she was last seen. From documentation appears to have been for CHF, but she mentions rectal bleeding as well for which she underwent sigmoidoscopy based on her description. Was told possibly diverticular bleeding. She is due to meet her Pleat Patternmaker later this month for discussion of ongoing use of blood thinner. Otherwise, main complaint remains frequent loose stools. Was switched from loperamide to cholestyramine by her PCP. Olmesartan has also been discontinued. 12/01/24: Pt here to follow up. Was seen in hospital for pancreatic cyst. Now coming in for persistent fecal incontinence. Reports some soiling of her underwear every day. Is constipated at baseline, takes miralax daily to have a BM every day. Most of the visit was spent her describing URINARY incontinence - she was quite frustrated that she frequently soils her pants from urinary incontinence and can barely get out of the house without worrying about it. Frequent urination also makes her hesitant to take full diuretic dose. She was redirected a few times to discuss F.I issues. Reports notices it more when she has fecal impaction. Digitalizes to help disimpact. She notices scant stool on her pad those times. She did not recall our previous discussion re timed rectal evacuation and fiber use to help bulk up the stool. 04/06/25: Here for follow up. Accompanied by her wonderful friend/neighbor Krystin Millan. Reports 2 main issues are heartburn that occurs 1-2 times despite famotidine. Also reports severe constipation. COnstipation causes severe lower abd discomfort. Feels hard stool in her rectum that she has to digitalize to remove. Never got glycerin suppositories. Has also not been taking miralax because it caused diarrhea last time. Recent hospitalization reviewed - had pancreatitis - has a punctate stone in PD as well as a 3.1 cm cystic lesion in uncinate process of pancreas. [facility] Medical History Contusion of second toe of left foot Diarrhea Constipation Weakness Dizziness and giddiness Weakness Yeast infection of the skin Exercise hypoxemia Acute respiratory failure with hypoxia Lipoma of lower back Urinary incontinence Cystitis Acute urinary retention Acute diverticulitis of intestine Generalized abdominal pain Diverticular disease Nausea & vomiting Failure to thrive in adult TSH elevation CHF (congestive heart failure) Atrial fibrillation with RVR Atrial fibrillation with RVR Type 2 diabetes mellitus with hyperglycemia Diabetes mellitus Asthma Hypokalemia Hypomagnesemia Hearing difficulty Dyspnea on exertion History of gastrointestinal diverticular hemorrhage COVID-19 virus infection Rectal bleeding Medicare annual wellness visit, initial Hip pain, left Patellar sleeve fracture of right knee Knee pain, right Nausea and vomiting Coarse tremors Shoulder pain, right Hospital discharge follow-up Mass on back Tinea corporis Nausea Right wrist pain Left knee pain Left hip pain Toe pain, left Breast cancer screening by mammogram UTI (urinary tract infection) Obesity (BMI 30-39.9) Urinary frequency Toe fracture, left Pancreatic cyst Osteoporosis Peptic ulcer disease Urinary incontinence Rectal incontinence GERD (gastroesophageal reflux disease) Bile salt-induced diarrhea Vaginal prolapse Renal artery stenosis Asthma Lumbar degenerative disc disease Insomnia TIA (transient ischemic attack) Hyperlipidemia, unspecified Essential hypertension Surgical History Hx of colonoscopy History of esophagogastroduodenoscopy (EGD) History of removal of cyst (~10/17/21) History of hemorrhoidectomy History of colectomy History of section History of hysterectomy History of appendectomy History of cholecystectomy Family History Father Cancer Arterial thrombosis Mother Multiple sclerosis Muscular dystrophy Hypertension Depression Chronic mental illness Mental health disorder Brother No problems noted. Brother Gangrene Sister No problems noted. Son No problems noted. Son No problems noted. Son No problems noted. Son No problems noted. Daughter No problems noted. Daughter No problems noted. Daughter No problems noted. Social History Household Members: None Housing: Apartment Do you presently have visiting nurse or other home services: Yes ([facility]) Alcohol intake: former Comment: 1:1 sitter. Patient Tobacco Use Status: Former Tobacco user Tobacco use type: Cigarette Years Smoked: 22 e-Cigarette/Vaping Use: Former Use Second Hand Smoke Exposure: Yes Advance Directives Date on File: 08/11/23 service: No Current occupational status: disabled Current occupational exposures/hazards: No Cognitive needs: Yes (walker) Hearing needs: Yes Vision needs: Yes (Glasses) Review of Systems Const All systems reviewed & are unremarkable except as noted in HPI and below Physical Exam Exam Exam: pale appearing frail lady Nonicteric abd soft, tender in lower abd, nondistended uses walker to ambulate Vital Signs: Last Vital Signs Pulse 81 04/06/25 10:56 BP 95/53 L 04/06/25 10:56 BMI result Body Mass Index 26.7 Assessment & Plan Assessment & Plan (1) Rectal bleed: Code(s): K62.5 - Hemorrhage of anus and rectum Category: Medical (2) Constipation: Code(s): K59.00 - Constipation, unspecified Category: Medical (3) Pancreatic lesion: Code(s): K86.9 - Disease of pancreas, unspecified Category: Medical (4) Pancreatic duct calculus: Code(s): K86.89 - Other specified diseases of pancreas Category: Medical Plan 1. CIC: Reports last BM > 4 days. Had to digitalize at that time and noticed blood after defecating. Appears pale on exam today, will check CBC and ferritin. In terms of mgmt, reviewed with the pt that would recommend taking miralax at least every other day to avoid constipation. Would also recommend glycerin supp to help disimpact and to avoid hemorrhoidal bleeding. Plan: - CBC and ferritin - KUB ordered to r/o obstruction - Miralax filled - Glycerin supp Rxed - pt encouraged to request VNA help with administering this. 2. GERD Break through sx 1-2 times a week. Discussed escalation to PPI vs OTC antacid. Pt prefers latter. Plan: - Mylanta Rxed 3. Panc cyst Known x years with recent increase in size however as pt not a surgical candidate, surveillance and/or FNA deferred. 4. PD stone admitted to the hospital last week with multiple issues including AIP initial lipase 3000. Has puntate PD stone just above ampulla with upstream dilation. Also has panc cyst as above. Recommendation was made for outpatient ERCP. Pt has significant comorbidities and low functional reserve that puts her at a relatively higher risk of periprocedural complications. However, will review this with colleague. Follow up 4 months Orders: Orders Ferritin Today K62.5 - Hemorrhage of anus and rectum XR KUB Today K59.00 - Constipation, unspecified Complete Blood Count no Diff Today K62.5 - Hemorrhage of anus and rectum Medications: New calcium carb-mag hydrox-simeth 1,200 mg-270 mg -80 mg/10 mL (Mylanta Coat-Cool) 10 mL PO BID PRN 355 mL 1RF heartburn glycerin (child) 2 supp ME DAILY PRN 25 ea 1RF constipation 30 days polyethylene glycol 3350 (Miralax) 17 grams PO Q OTHER DAY 238 grams 0RF 30 days Coding Level of Care Code Est Pt Level 5 (58864) Complex EM visit Add On G2211 Diagnoses Rectal bleed K62.5 Constipation K59.00 Pancreatic lesion K86.9 Pancreatic duct calculus K86.89
[2025-04-06 10:56] VITALS: BP 95/53; PULSE 81; BMI 26.7
--- OUTSIDE RECORDS SUMMARY | 2025-04-06 12:45 | XMS_ITS | Data Portability ---
Author Organization [facility] [employer] [facility], Main Office Address [address] [place] [address] Care Team Providers Care Security Project Manager Name Role Phone CHIQUIS ESCOBEDO - 2ND [...] Xanax 0.25 mg tablet 024 01/14/20 24 [facility] , [address] [place], [address], 4 18:34:50 Patient TargetsNo targets recorded. Patient InstructionsNo instructions recorded. Reason for Referral None Reported. Problems Name Problem SNOMED Code Status Onset Date Resolution Date Notes Provider Name and Address Organization Details Recorded Time Type 2 diabetes mellitus 62153815 Active 2023 Charis Lowry NP [address] [facility] [address] [facility], [place], [address], [facility] [employer] 4 13:18:25 Chronic obstructive pulmonary disease 44331375 Active 2023 Charis Lowry NP [address] [facility] [facility] [address], [place], [address], [facility] [employer] 4 13:18:33 Congestive heart failure 51363072 Active 2023 Charis Lowry NP [address] [facility], [address], [place], [address], [facility] [employer] 4 13:18:38 Acute respiratory failure 43229194 Active 2023 Charis Lowry NP [address], [place], [address], [employer] [facility] 4 13:18:55 Atrial fibrillation 27970342 Active 2023 Charis Lowry NP [address], [place], [address], [facility] 4 13:22:29 Tremor 85316850 Active 2023 Charis Lowry NP [address], [place], [address], [facility] 4 13:23:07 Mixed anxiety and depressive disorder 123867730 Active 2023 Charis Lowry NP [address], [place], [address], [facility] 4 13:23:16 Chronic pain 85525296 Active 2023 Charis Lowry NP [address], [place], [address], [facility] 4 13:28:13 Anemia 633432563 Active 2023 Charis Lowry NP [address], [place], [address], [facility] 4 13:28:23 Cyst of pancreas 41655198 Active 2023 Charis Lowry NP [address], [place], [address], [facility] 4 13:28:47 Hyperlipidemia 77143945 Active 2023 Charis Lowry NP [address], [place], [address], [facility] 4 13:28:58 Gastroesophage al reflux disease 874682806 Active 2023 Charis Lowry NP [address], [place], [address], [facility] 4 13:29:37 Hypertensive disorder 48291537 Active 2023 Charis Lowry NP [address] [facility], [address], [place], [address], [facility] [employer] 4 13:31:15 Problem Notes None recorded. Medical Equipment None Reported. Allergies Allergen ID Allergen Name Allergen Category Reaction Reaction Severity Criticality Documentation Date Start Date Code Code System Note Provider Name and Address Organization Details Recorded Time 28046 aspirin medicatio n other Not available unabletoasse 01/14/2024 1191 RxNorm unkno wn Charis Lowry NP [address] [facility], [address], [place], [address], [facility] [employer] 4 12:52:40 81910 cefuroxim e Not available other Not available unabletoasse 01/14/2024 2194 RxNorm unkno seun Lowry NP [address] [facility], [address], [place], [address], [facility] [employer] [facility] 4 12:53:03 06018 celecoxib medicatio n other Not available unabletoasse 01/14/2024 86377 7 RxNorm unkno wn Charis Lowry NP [address] [facility], [address], [place], [address], [facility] [employer] [facility] 4 12:53:18 47190 ciproflox acin medicatio n other Not available unabletoasse 01/14/2024 2551 RxNorm unkno seun Lowry NP [address] [facility], [address], [place], [address], [facility] [employer] [facility] 4 12:53:34 74798 ferrous sulfate medicatio n other Not available unabletoasse 01/14/2024 48057 RxNorm unkno seun Lwory NP [address] [facility], [address], [place], [address], [facility] [employer] [facility] 4 12:53:47 52236 metformin medicatio n other Not available unabletoasse 01/14/2024 6809 RxNorm unkno wn Charis Lowry NP [address] [facility], [address], [place], [address], [facility] 4 12:54:05 38773 risedrona te sodium medicatio n other Not available unabletoasse 01/14/2024 74518 RxNorm unkno wn Charis Lowry NP [address] [facility], [address], [place], [address], [facility] 4 12:54:29 14364 sertralin e medicatio n other Not available unabletoasse 01/14/2024 85414 RxNorm unkno wn Charis Lowry NP [address] [facility], [address], [place], [address], [facility] 4 12:54:44 38875 bupropion Not available other Not available unabletoasse 01/14/2024 94271 RxNorm unkno seun Lowry NP [address] [facility], [address], [place], [address], [facility] 4 12:55:26 20269 Substance with sulfonami de structure and antibacte rial mechanism of action (substanc e) medicatio n other Not available unabletoasse 01/14/2024 92035 8003 SNOMED unkno seun Lowry NP [address] [facility], [address], [place], [address], [facility] 4 12:55:43 Medications Name Sig Start Date [...] Address Organization Details Last Updated DateTime 4 88008.2 2 g 90 /min 20 /min 98 [degF] 95 % 95 % 136/88 mm[Hg] Charis Lowry NP [address] [facility], [address], [place], [address], [facility] [employer] 13:06:27 Social History Question Answer Notes LastModified by Organizat ion Details LastModified Time Tobacco Smoking Status Former Smoker Charis Lowry, PANDA [address], [address], [place], [address], [facility] [employer] [facility] 01/14/2024 12:59:12 Do You Have An [...] conjugate PCV 13 6 completed Yazmin daley, [facility] [employer] [facility] 01/14/2024 12:45:53 influenza, unspecified formulation [address] [facility] 01/14/2024 12:46:10 influenza, unspecified formulation [address] [facility] 01/14/2024 12:46:17 SARS-COV-2 (COVID-19) vaccine, UNSPECIFIED 1 completed Yazmin [facility] 01/14/2024 12:50:53 SARS-COV-2 (COVID-19) vaccine, UNSPECIFIED [address] [facility] 01/14/2024 12:51:02 SARS-COV-2 (COVID-19) vaccine, UNSPECIFIED [address] [facility] 01/14/2024 12:51:09 SARS-COV-2 (COVID-19) vaccine, UNSPECIFIED 2 completed Yazmin [facility] 01/14/2024 12:51:17 SARS-COV-2 (COVID-19) vaccine, UNSPECIFIED [address] [facility] 01/14/2024 12:51:24 Past Encounters Encounter ID Performer Location Encounter Start Date Encounter Closed Date Diagnosis/Indication Diagnosis SNOMED-CT Code Diagnosis ICD10 Code Diagnosis IMO Codes Diagnosis Note [id number] Charis Lowry NP [address] [address] 01/14/2024 12:46:17 01/15/2024 13:06:34 Acute respiratory failure 01630797 J96.00 prednisone 40 mg po daily x 4 daysfurose mide 40 mg po dailyalbut gibson qid prn sob/wheezi ngsingulai r 10 mg po [id number] 4 liters prn sob sat <90%monito r resp statuslabs as above Congestive heart failure 09328540 I50.9 see acute resp failure above Chronic ob structive pulmonary disease 15350331 J44.9 see acute resp failure above Atrial fibrillation 1074 8210 I48.91 eliquis 2.5 mg po bid for acmetoprol ol succ 100 mg po ermonitor cardiac status, vitals Mixed anxi ety and depressive disorder 172956981 F41.8 01/13 alprazolam 0.25 mg po bid prn (pt reports it is sched daily at home on the bottle but has been taking up to 4 times a day)monito r Tremor 19464910 R25.1 hx offno medication smonitor Cyst of pancreas 4365157 0 K86.2 see hpihistory of cyst noted on abd ctseen by GI, no new recfollow up with pcp outpt Hyperlipidemia 53556951 E78.5 atrovastat in 40 mg po daily Gastroesop hageal reflux disease 381114564 K21.9 with nausea/vom iting todaydexil ant 60 mg po cap dailyzofra n 4 mg po q 6 hours prn nausea vomingadd pepcid 20 mg po daily x 2 qweekmonit or Chronic pain 80999806 G8 9.29 diclofenac 4 g topically qid for paintramad ol 50 mg po daily prn q 6 hours painpregab edward 100 mg po q 12 hoursmonit or for pain Anemia 651542256 D64.9 vit c 500 mg with ferrous sulfate 325 mg po dailyfolic acid 1 mg po dialymonit or cbc weekly and for s/s of bleedingcy anocobalam in 1000 mcg po daily Hypertensive disorder 38 314322 I10 nifedipine 60 mg po er dailymonit or vitals, need to titrate Nausea and vomiting 1693 2000 R11.2 with nausea and vomiting todayrecen t workup in hospitalde xilant 60 mg po cap dailyzofra n 4 mg po q 6 hours prn nausea vomingadd pepcid 20 mg po daily x 2 qweekconsi agustin ivf if no response of ermonitorl abs stable today Asthenia 74767227 R53.1 with weaknessPT OT eval and treatmonit or for improvemen t/worsenin g Health Concerns Section Related Observation LastModified by Organization Detai ls LastModified Time None Recorded Concern Status LastModified by Organization Details LastModified Time None Recorded Advance Directives Directive N: Payers Insurance Date Sequence Insurance Name Policy Number Policy Quiles Covered Member ID Quiles Member ID Guarantor Name 01/15/2024 1 [place]ICARE [place]: [employer] Zuleyma Gutierrez [id number] Zuleyma Gutierrez 03/24/2024 2 () [id number] Zuleyma Gutierrez Notes Date Note Type Note Provider Name and Address Organization Details Recorded Time 01/14/2024 text/html Pt is seen for an initial intake visit today. PMH: COPD, CHF, DM2, anxiety, hard of hearing, tremors, chronic pain, She is an 88 yo female who presented to [facility] 01/09-01/13/24 with shortness of breath, dizziness, anxiety, and lower extremity swelling felt related to CHF and afib. She is now at [facility] for continued care and rehab. Hospital [...] MOLST: full code Charis Lowry, PANDA [address], [place], [address], [facility] 01/14/2024 14:11:50 OBGyn Episode No OBEpisode recorded.
== END 2025-04-06 11:20 | disposition home or self-care (01) ==
LOC: HO.HGI 10:51
PROVIDERS: PCP Internal Medicine; Visit Provider Internal Medicine
DX: K62.5 Hemorrhage of anus and rectum (principal); K59.00 Constipation, unspecified; K86.89 Other specified diseases of pancreas
CPT/HCPCS: 99214; G2211

== ENCOUNTER 2025-04-06 10:50 | Outpatient (REF) | payer MEDICARE, OTHER, SELFPAY ==
--- NOTE | ~2025-04-06 | XR_ITS ---
EXAMINATION: XR ABDOMEN KUB CLINICAL INDICATION: K59.00 - Constipation, unspecified COMPARISON: None available. TECHNIQUE: 2 AP supine views of the abdomen. FINDINGS: Nonobstructive bowel gas pattern. Small-moderate stool in the large colon. No gross pneumoperitoneum evident on the supine views. No unusual soft tissue calcifications are noted. Surgical clips projected over the pelvis. Degenerative changes in the spine. Lung bases are clear.. XR/XR KUB IMPRESSION: Small-moderate volume stool in the large colon. Nonobstructive bowel gas pattern. Electronically signed by: Mike Morales MD 04/06/2025 12:18 PM [facility]
[2025-04-06 12:19] LABS: Hematocrit 34.4 % (37.0-47.0); Hemoglobin 10.1 g/dl (12.0-16.0); Mean Corpuscular HGB Conc 29.4 g/dl (31.0-35.0); Mean Corpuscular Hemoglobin 22.4 pg (27.0-33.0); Mean Corpuscular Volume 76.4 fL (80.0-98.0); NRBC Abs Auto 0.000 X10*3/uL (0.0-0.012); NRBC Pct Auto 0.0 /100WBC (0.0-0.2); Platelet Count 310 X10*3/uL (160-400); Red Blood Count 4.50 X10*6/uL (4.20-5.50); White Blood Count 22.4 X10*3/uL (4.8-10.8)
[2025-04-06 13:13] LABS: Ferritin 25 ng/mL (10-250)
--- OUTSIDE RECORDS SUMMARY | 2025-04-06 14:15 | XMS_ITS | Encounter Summary ---
Author Organization [facility] Address [address] [place] [address] Phone Care Team Providers Care Assistant Grocery Name Role Phone Solange Jacobs MD Primary Care Provider [phone] Encounter Details Date Type Department Care Team (Late st Contact Info) Description 08/26/2017 Procedure Pass [facility], Ct Scan - [facility] [address] [place] [address] Social History Tobacco Use Types Packs/Day Years [...] documented as of this encounter Care Teams Assistant Grocery Relationship Specialty Start Date End Date Solange Jacobs MD [address] [place] [address] [place] [address] PCP - General Internal Medicine 08/26/17 documented as of this encounter Additional Source Comments The information contained in this document represents components of the legal health record. It is not the complete legal health record.[facility]
--- OUTSIDE RECORDS SUMMARY | 2025-04-06 14:15 | XMS_ITS | Encounter Summary ---
Author Organization [facility] Address [address] [place] [address] Phone Care Team Providers Care Sql Database Programmer Name Role Phone Solange Jacobs MD Primary Care Provider [phone] Reason for Visit * Reason Onset Date Comments STAT ID Referral 03/30/2025 STAT ID Referra l Encounter Details Date Type Department Care Team (Late st Contact Info) Description 03/30/2025 Telephone [facility] Infectious Diseases [address] [place] [address] Gildardo Conde MD [address] [facility], 2nd [place] [address] [email or web address] STAT ID Referral (STAT ID Referral) Social History Tobacco Use Types Packs/Day Years [...] PM EDT documented as of this encounter Progress Notes * Simin Hathaway [place] - 04/01/2025 11:53 AM EDT Sent to Porsha Alicea NP to review. * Billie Acosta - 03/30/2025 4:41 PM EDT Please review STAT ID referral for scheduling. Jareth from PCP ([facility]) Referrals Departmenbt calls to upgrade status to STAT . documented in this encounter Plan of Treatment Not on file documented as of this encounter Visit Diagnoses Not on filedocumented in this encounter Care Teams Sql Database Programmer Relationship Specialty Start Date End Date Solange Jacobs MD [address] [place] [address] PCP - General Internal Medicine 08/26/17 documented as of this encounter Additional Source Comments The information contained in this document represents components of the legal health record. It is not the complete legal health record.[facility]
--- OUTSIDE RECORDS SUMMARY | 2025-04-06 14:15 | XMS_ITS | Encounter Summary ---
Author Organization [facility] Address [address] [place] [address] Phone Care Team Providers Care Hide Selector Name Role Phone Solange Jacobs MD Primary Care Provider [phone] Encounter Details Date Type Department Care Team (Late st Contact Info) Description 10/07/2022 Procedure Pass [facility] [address] [place] [address] Social History Tobacco Use Types Packs/Day Years [...] documented as of this encounter Care Teams Hide Selector Relationship Specialty Start Date End Date Solange Jacobs MD [address] [place] [phone] PCP - General Internal Medicine 08/26/17 documented as of this encounter Additional Source Comments The information contained in this document represents components of the legal health record. It is not the complete legal health record.[facility]
--- OUTSIDE RECORDS SUMMARY | 2025-04-06 14:15 | XMS_ITS | Encounter Summary ---
Author Organization [facility] Address [address] [place] [address] Phone Care Team Providers Care Manufacturing Assembler Name Role Phone Solange Jacobs MD Primary Care Provider [phone] Encounter Details Date Type Department Care Team (Late st Contact Info) Description 03/10/2021 Procedure Pass [facility], Ct Scan - [facility] [address] [place] [address] Social History Tobacco Use Types Packs/Day Years [...] 12:20 PM EDT Katie Hugo, JUAN * [place] Suicide Severity Rating Scale (Screener/Recent Self-Report) Question [...] documented as of this encounter Care Teams Manufacturing Assembler Relationship Specialty Start Date End Date Solange Jacobs MD [address] [place] [phone] PCP - General Internal Medicine 08/26/17 documented as of this encounter Additional Source Comments The information contained in this document represents components of the legal health record. It is not the complete legal health record.[facility]
--- OUTSIDE RECORDS SUMMARY | 2025-04-06 14:15 | XMS_ITS | Encounter Summary ---
Author Organization [facility] Address [address] [place] [address] Phone Care Team Providers Care Visual Education Director Name Role Phone Solange Jacobs MD Primary Care Provider [phone] Encounter Details Date Type Department Care Team (Late st Contact Info) Description 10/10/2022 Procedure Pass [facility], Ct Scan - [facility] [address] [place] [address] Social History Tobacco Use Types Packs/Day Years [...] documented as of this encounter Care Teams Visual Education Director Relationship Specialty Start Date End Date Solange Jacobs MD [address] [place] [address] PCP - General Internal Medicine 08/26/17 documented as of this encounter Additional Source Comments The information contained in this document represents components of the legal health record. It is not the complete legal health record.[facility]
--- OUTSIDE RECORDS SUMMARY | 2025-04-06 14:15 | XMS_ITS | Encounter Summary ---
Author Organization [facility] Address [address] [place] [address] Phone Care Team Providers Care Shafting Cleaner Name Role Phone Solange Jacobs MD Primary Care Provider [phone] Reason for Referral * Physical Therapy (Routine) - Closed Specialty Diagnoses / Procedures Referred By Contac t Referred To Contact Physical Therapy Diagnoses Encounter for rehabilitation System, Provider Not In, [facility] [id number] [place] [address] Phone: tel: Referral ID Status Reason Start Date Expiration Date Visits Re quested Visits Authorized [id number] Closed 07/01/2018 06/01/[phone] Encounter Details Date Type Department Care Team (Latest Contact Info) Description 06/10/2018 Transcribe Orders [facility] [address] [place] [address] Solange Jacobs MD [address] [place] [phone] Encounter for rehabilitation (Primary Dx) Social [...] Diagnoses Orde r Schedule Ambulatory referral to [facility] Physical Therapy Outpatient Referral Routine Encounter for [...] documented as of this encounter Care Teams Shafting Cleaner Relationship Specialty Start Date End Date Solange Jacobs MD [address] [facility] [address] [place] [phone] PCP - General Internal Medicine 08/26/17 documented as of this encounter Additional Source Comments The information contained in this document represents components of the legal health record. It is not the complete legal health record.[facility]
--- OUTSIDE RECORDS SUMMARY | 2025-04-06 14:15 | XMS_ITS | Encounter Summary ---
Author Organization [facility] Address [address] [place] [address] Phone Care Team Providers Care National Account Manager Name Role Phone Solange Jacobs MD Primary Care Provider [phone] Encounter Details Date Type Department Care Team (Late st Contact Info) Description 10/06/2022 Procedure Pass [facility], Ct Scan - [facility] [address] [place] [address] Social History Tobacco Use Types Packs/Day Years [...] 5:41 PM EDT Manolo Sales RN * [place] Suicide Severity Rating Scale (Screener/Recent Self-Report) Question [...] documented as of this encounter Care Teams National Account Manager Relationship Specialty Start Date End Date Solange Jacobs MD [address] [place] [address] PCP - General Internal Medicine 08/26/17 documented as of this encounter Additional Source Comments The information contained in this document represents components of the legal health record. It is not the complete legal health record.[facility]
--- OUTSIDE RECORDS SUMMARY | 2025-04-06 14:16 | XMS_ITS | Encounter Summary ---
Author Organization [facility] Address [address] [place] [address] Phone Care Team Providers Care Film Sound Coordinator Name Role Phone Solange Jacobs MD Primary Care Provider [phone] Encounter Details Date Type Department Care Team (Late st Contact Info) Description 01/30/2023 Procedure Pass [facility], Ct Scan - [facility] [address] [place] [address] Social History Tobacco Use Types Packs/Day Years [...] documented as of this encounter Care Teams Film Sound Coordinator Relationship Specialty Start Date End Date Reynaldo, Solange Jacobo MD [address] [place] [address] Drive [address] [place] [phone] PCP - General Internal Medicine 08/26/17 documented as of this encounter Additional Source Comments The information contained in this document represents components of the legal health record. It is not the complete legal health record.[facility]
--- OUTSIDE RECORDS SUMMARY | 2025-04-06 14:16 | XMS_ITS | Encounter Summary ---
Author Organization [facility] Address [address] [place] [address] Phone Care Team Providers Care Laundry Aide Name Role Phone Solange Jacobs MD Primary Care Provider [phone] Encounter Details Date Type Department Care Team (Late st Contact Info) Description 03/13/2022 Procedure Pass [facility], Ct Scan - [facility] [address] [place] [address] Social History Tobacco Use Types Packs/Day Years [...] 9:16 PM EDT Arnold Ellington RN * [place] Suicide Severity Rating Scale (Screener/Recent Self-Report) Question [...] documented as of this encounter Care Teams Laundry Aide Relationship Specialty Start Date End Date Solange Jacobs MD [address] [place] [phone] PCP - General Internal Medicine 08/26/17 documented as of this encounter Additional Source Comments The information contained in this document represents components of the legal health record. It is not the complete legal health record.[facility]
--- OUTSIDE RECORDS SUMMARY | 2025-04-06 14:16 | XMS_ITS | Encounter Summary ---
Author Organization [facility] Address [address] [place] [address] Phone Care Team Providers Care Medical Physics Researcher Name Role Phone Solange Jacobs MD Primary Care Provider [phone] Encounter Details Date Type Department Care Team (Latest Contact Info) Description 03/22/2019 Transcribe Orders [address] [address] Solange Jacobs MD [address] [place] [address] Pure hypercholesterolemia (Primary Dx); Essential [...] (03/22/2019 9:36 AM EDT) HDL 46 mg/dL [facility] Comment: Interpretation <40 mg/dL: Low HDL cholesterol (major risk factor for CHD) Greater than or equal to 60 mg/dL: High HDL cholesterol ( negative risk factor for CHD) HDL - cholesterol is affected by a number of factors, e.g. smoking, excerise, hormones, sex and age. CHOLESTEROL 142 0 - 240 mg/dL [facility] TRIGLYCERIDES 261(H) 30 - 160 mg/dL [facility] LDL 44(L) 50 - 129 mg/dL [facility] Comment: LDL levels in terms of risk for coronary heart disease: <100 mg/dL: Optimal 100-129 mg/dL: Near or above optimal 130-159 mg/dL: Borderline high 160-189 mg/dL: High >190 mg/dL: Very High CARDIAC RISK RATIO 3.1(L) 3.3 - 4.4 C [facility] Blood 03/22/2019 9:36 AM EDT 03/22/2019 10:12 AM EDT us Solange Jacobs MD LAB BLOOD BKR ORDERABLES Elodia kraft Result [address] [address] * (ABNORMAL) Comprehensive metabolic panel (03/22/2019 9:36 AM EDT) SODIUM 140 133 - 146 mmol/L [facility] POTASSIUM 5.0 3.3 - 5.1 mmol/L [facility] CHLORIDE 102 96 - 108 mmol/L [facility] CO2 23 21 - 35 mmol/L [facility] BUN 13 6 - 19 mg/dL [facility] CREATININE 0.70 0.5 - 1.5 mg/dL [facility] GLUCOSE 139(H) 70 - 99 mg/dL [facility] ALBUMIN 4.5 3.9 - 4.8 g/dL [facility] TOTAL PROTEIN 7.7 6.5 - 8.0 g/dL [facility] CALCIUM 10.9(H) 8.4 - 10.3 mg/dL [facility] ALKALINE PHOSPHATASE 80 39 - 117 U/L [facility] TOTAL BILIRUBIN 0.7 0.0 - 1.2 mg/dL [facility] AST 38(H) 0 - 37 U/L [facility] ALT 20 0 - 40 U/L [facility] GLOBULIN 3.2 1 - 4.8 g/dL [facility] EGFR 81 >59 mL/min/1.7 3m2 [facility] Comment:If patient is black, multiply result by 1.159. Estimated glomerular filtration rate calculated using the CKD-EPI equation. ANION GAP 20 10 - 20 mmol/L [facility] Blood 03/22/2019 9:36 AM EDT 03/22/2019 10:12 AM EDT us Solange Jacobs MD LAB BLOOD BKR ORDERABLES Elodia l Result Performing Organization Address City/[facility]/ZIP Co de Phone Number [address] [address] * T4, total (03/22/2019 9:36 AM EDT) THYROXINE 5.9 4.6 - 12.0 ug/dL [facility] Blood 03/22/2019 9:36 AM EDT 03/22/2019 10:12 AM EDT us Solange Jacobs MD LAB BLOOD ORDERABLES Final Re sult Performing Organization Address [facility]/ZIP Co de Phone Number [address] [address] * Microalbumin/creatinine ratio, random urine (03/22/2019 9:36 AM EDT) URINE MICROALBUMIN <1.2 0 - 2.3 mg/dL [facility] URINE CREATININE 33 mg/dL [facility] MICROALB/CRE RATIO NOT CALCULATED 0 - 20 mg/g Cre [facility] Comment:due to Microalbumin <1.2 Urine (Urine) 03/22/2019 9:3 6 AM EDT 03/22/2019 10:12 AM EDT Solange Jacobs MD LAB URINE ORDERABLES Final Re sult Performing Organization Address City/[facility]/ZIP Co de Phone Number [address] [address] * (ABNORMAL) TSH (03/22/2019 9:36 AM EDT) TSH 5.64(H) 0.27 - 4.20 uIU/mL [facility] Blood 03/22/2019 9:36 AM EDT 03/22/2019 10:12 AM EDT Solange Jacobs MD LAB BLOOD BKR ORDERABLES Elodia l Result Performing Organization Address [facility] Co de Phone Number [address] [address] * (ABNORMAL) CBC and differential (03/22/2019 9:36 AM EDT) WBC 8.31 3.40 - 11.20 K/uL [facility] RBC 5.31(H) 3.80 - 4.80 M/uL [facility] HGB 16.8(H) 12.0 - 15.0 g/dL [facility] HCT 49.1(H) 36.0 - 46.0 % [facility] PLT 283 130 - 400 K/uL [facility] MCV 92.5 79.0 - 98.0 [facility] MCH 31.6 27.0 - 34.8 pg [facility] MCHC 34.2 31.5 - 36.0 g/dL [facility] RDW 12.8 10.8 - 14.6 % [facility] MPV 10.5 9.4 - 12.4 [facility] NRBC 0.00 0.00 /100 WBCs [facility] ABSOLUTE NRBC 0.00 0.00 K/uL [facility] DIFF METHOD Auto [facility] NEUTS 66.0 45.30 - 77.70 % [facility] LYMPHS 23.0 12.30 - 39.70 % [facility] MONOS 8.9 4.10 - 12.80 % [facility] EOS 1.3 0 - 7.2 % [facility] BASOS 0.6 0 - 2.80 % [facility] Granulocytes, immature (%) 0.2 0.0 - 0.9 % [facility] ABSOLUTE NEUTS 5.48 1.40 - 7.70 K/uL [facility] ABSOLUTE LYMPHS 1.91 0.60 - 3.20 K/uL [facility] ABSOLUTE MONOS 0.74(H) 0.11 - 0.59 K/uL [facility] ABSOLUTE EOS 0.11 0.01 - 0.50 K/uL [facility] ABSOLUTE BASOS 0.05 0.00 - 0.08 K/uL [facility] Granulocytes, immature 0.02 0.00 - 0.05 K/uL [facility] Blood 03/22/2019 9:36 AM EDT 03/22/2019 10:12 AM EDT us Solange Jacobs MD LAB BLOOD BKR ORDERABLES Elodia l Result [address] [address] * (ABNORMAL) Folate (03/22/2019 9:36 AM EDT) FOLIC ACID >20.0(H) 4.2 - 19.9 ng/mL [facility] Blood 03/22/2019 9:36 AM EDT 03/22/2019 10:12 AM EDT Solange Jacobs MD LAB BLOOD BKR ORDERABLES Elodia l Result [address] [address] * Vitamin B12 (03/22/2019 9:36 AM EDT) VITAMIN B12 1,041 232 - 1,245 pg/mL [facility] Blood 03/22/2019 9:36 AM EDT 03/22/2019 10:12 AM EDT us Solange Jacobs MD LAB BLOOD BKR ORDERABLES Elodia l Result Performing Organization Address City/[facility]/ZIP Co de Phone Number [address] [address] * 25-OH vitamin D (03/22/2019 9:36 AM EDT) 25 [place] VIT D (TOTAL) 42 30 - 60 ng/mL [facility] Blood 03/22/2019 9:36 AM EDT 03/22/2019 10:12 AM EDT us Solange Jacobs MD LAB BLOOD BKR ORDERABLES Elodia l Result Performing Organization Address [facility] Co de Phone Number [address] [address] documented in this encounter Visit Diagnoses Diagnosis [...] as of this encounter Care Teams Medical Physics Researcher Relationship Specialty Start Date End Date Solange Jacobs MD [address] [place] [phone] PCP - General Internal Medicine 08/26/17 documented as of this encounter Additional Source Comments The information contained in this document represents components of the legal health record. It is not the complete legal health record.[facility]
--- OUTSIDE RECORDS SUMMARY | 2025-04-06 14:16 | XMS_ITS | Encounter Summary ---
Author Organization [facility] Address [address] [place] [address] Phone Care Team Providers Care Publication Director Name Role Phone Solange Jacobs MD Primary Care Provider [phone] Encounter Details Date Type Department Care Team (Late st Contact Info) Description 07/16/2019 Ancillary Orders [facility], X-Ray - [place] [address] [place] [address] Solange Jacobs MD [address] [place] [address] Pain Social History Tobacco Use [...] documented as of this encounter Care Teams Publication Director Relationship Specialty Start Date End Date Po, Solange Jacobo MD [address] [place] [address] [place] [phone] PCP - General Internal Medicine 08/26/17 documented as of this encounter Additional Source Comments The information contained in this document represents components of the legal health record. It is not the complete legal health record.[facility]
--- OUTSIDE RECORDS SUMMARY | 2025-04-06 14:16 | XMS_ITS | Encounter Summary ---
Author Organization [facility] Address [address] [place] [address] Phone Care Team Providers Care Land Leveler Name Role Phone Solange Jacobs MD Primary Care Provider [phone] Encounter Details Date Type Department Care Team (Late st Contact Info) Description 08/05/2019 Ancillary Orders [facility], X-Ray - [address] [address] Bee Barnes MD [address] [place] [phone] [email or web address] Social History Tobacco Use Types Packs/Day [...] documented as of this encounter Care Teams Land Leveler Relationship Specialty Start Date End Date Solange Jacobs MD [address] [place] [phone] PCP - General Internal Medicine 08/26/17 documented as of this encounter Additional Source Comments The information contained in this document represents components of the legal health record. It is not the complete legal health record.[facility]
--- OUTSIDE RECORDS SUMMARY | 2025-04-06 14:16 | XMS_ITS | Encounter Summary ---
Author Organization [facility] Address [address] [place] [address] Phone Care Team Providers Care Textile Chemist Name Role Phone Solange Jacobs MD Primary Care Provider [phone] Encounter Details Date Type Department Care Team (Late st Contact Info) Description 01/31/2023 Procedure Pass [facility]oscopy Admitting Dept Virtual Department [address] [place] [address] Social History Tobacco Use Types Packs/Day Years [...] 5:21 PM EDT America Giles, JUAN * [place] Suicide Severity Rating Scale (Screener/Recent Self-Report) Question [...] documented as of this encounter Care Teams Textile Chemist Relationship Specialty Start Date End Date Solange Jacobs MD [address] [place] [address] [place] [phone] PCP - General Internal Medicine 08/26/17 documented as of this encounter Additional Source Comments The information contained in this document represents components of the legal health record. It is not the complete legal health record.[facility]
--- OUTSIDE RECORDS SUMMARY | 2025-04-06 14:16 | XMS_ITS | Encounter Summary ---
Author Organization [facility] Address [address] [place] [address] Phone Care Team Providers Care Senior Quality Technician Name Role Phone Solange Jacobs MD Primary Care Provider Encounter Details Date Type Department Care Team (Late st Contact Info) Description 03/14/2022 Procedure Pass [facility]oscopy Admitting Dept Virtual Department [address] [place] [address] Social History Tobacco Use Types Packs/Day Years [...] as of this encounter Care Teams Senior Quality Technician Relationship Specialty Start Date End Date Solange Jacobs MD [address] [place] [phone] PCP - General Internal Medicine 08/26/17 documented as of this encounter Additional Source Comments The information contained in this document represents components of the legal health record. It is not the complete legal health record.[facility]
--- OUTSIDE RECORDS SUMMARY | 2025-04-06 14:16 | XMS_ITS | Encounter Summary ---
Author Organization [facility] Address [address] [place] [address] Phone Care Team Providers Care Master Control Technician Name Role Phone Solange Jacobs MD Primary Care Provider [phone] Encounter Details Date Type Department Care Team (Late st Contact Info) Description 11/09/2024 Transcribe Orders [address] [address] Solange Jacobs MD [address] [place] [address] Social History Tobacco Use Types [...] on filedocumented in this encounter Care Teams Master Control Technician Relationship Specialty Start Date End Date Solange Jacobs MD [address] [place] [address] [place] [phone] PCP - General Internal Medicine 08/26/17 documented as of this encounter Additional Source Comments The information contained in this document represents components of the legal health record. It is not the complete legal health record.[facility]
--- OUTSIDE RECORDS SUMMARY | 2025-04-06 14:16 | XMS_ITS | Encounter Summary ---
Author Organization [facility] Address [address] [place] [address] Phone Care Team Providers Care Maintenance And Repair Worker Name Role Phone Solange Jacobs MD Primary Care Provider [phone] Encounter Details Date Type Department Care Team (Late st Contact Info) Description 05/24/2021 Procedure Pass [facility], [address] [address] Social History Tobacco Use Types Packs/Day Years [...] 05/24/2021 12:34 PM Joan Alan RN * [place] Suicide Severity Rating Scale (Screener/Recent Self-Report) Question [...] documented as of this encounter Care Teams Maintenance And Repair Worker Relationship Specialty Start Date End Date Solange Jacobs MD [address] [place] [address] PCP - General Internal Medicine 08/26/17 documented as of this encounter Additional Source Comments The information contained in this document represents components of the legal health record. It is not the complete legal health record.[facility]
--- OUTSIDE RECORDS SUMMARY | 2025-04-06 14:16 | XMS_ITS | Encounter Summary ---
Author Organization [facility] Address [address] [place] [address] Phone Care Team Providers Care Drug Abuse Treatment Specialist Name Role Phone Solange Jacobs MD Primary Care Provider [phone] Encounter Details Date Type Department Care Team (Latest Contact Info) Description 05/12/2019 Transcribe Orders [facility] [address] [address] Solange Jacobs MD [address] [place] [address] Hypercalcemia (Primary Dx); Nonspecific abnormal [...] EST) TSH 10.10(H) 0.27 - 4.20 uIU/mL [facility] Blood 05/12/2019 10:2 1 AM EST 05/12/2019 10:42 AM EST us Solange Jacobs MD LAB BLOOD BKR ORDERABLES Elodia l Result Performing Organization Address [facility]/ZIP Co de Phone Number [address] [address] * T4, total (05/12/2019 10:21 AM EST) THYROXINE 5.6 4.6 - 12.0 ug/dL [facility] Blood 05/12/2019 10:2 1 AM EST 05/12/2019 10:42 AM EST us Solange Jacobs MD LAB BLOOD ORDERABLES Final Re sult Performing Organization Address [facility] Co de Phone Number [address] [address] * Calcium (05/12/2019 10:21 AM EST) CALCIUM 9.8 8.4 - 10.3 mg/dL [facility] Blood 05/12/2019 10:2 1 AM EST 05/12/2019 10:42 AM EST us Solange Jacobs MD LAB BLOOD BKR ORDERABLES Elodia l Result Performing Organization Address [facility] Co de Phone Number [address] [address] * (ABNORMAL) Parathyroid hormone (PTH) (05/12/2019 10:21 AM EST) PARATHYROID HORMONE 79(H) 15 - 65 pg/mL [facility] Blood 05/12/2019 10:2 1 AM EST 05/12/2019 10:43 AM EST us Solange Jacobs MD LAB BLOOD BKR ORDERABLES Elodia l Result [facility] [address] [place] [address] documented in this encounter Visit Diagnoses Diagnosis [...] documented as of this encounter Care Teams Drug Abuse Treatment Specialist Relationship Specialty Start Date End Date Solange Jacobs MD [address] [place] [phone] PCP - General Internal Medicine 08/26/17 documented as of this encounter Additional Source Comments The information contained in this document represents components of the legal health record. It is not the complete legal health record.[facility]
--- OUTSIDE RECORDS SUMMARY | 2025-04-06 14:16 | XMS_ITS | Encounter Summary ---
Author Organization [facility] Address [address] [place] [address] Phone Care Team Providers Care Ultrasound Technol Name Role Phone Solange Jacobs MD Primary Care Provider [phone] Encounter Details Date Type Department Care Team (Latest Contact Info) Description 07/16/2019 Transcribe Orders Virtual Department [address] [place] [address] Eu, Delia Loja MD [address] [place] [address] Primary localized osteoarthritis of pelvic region and [...] documented as of this encounter Care Teams Ultrasound Technol Relationship Specialty Start Date End Date Reynaldo, Solange Jacobo MD [address] [place] [address] [place] [phone] PCP - General Internal Medicine 08/26/17 documented as of this encounter Additional Source Comments The information contained in this document represents components of the legal health record. It is not the complete legal health record.[facility]
--- OUTSIDE RECORDS SUMMARY | 2025-04-06 14:16 | XMS_ITS | Encounter Summary ---
Author Organization [facility] Address [address] [place] [address] Phone Care Team Providers Care Surgical Garment Inspector Name Role Phone Solange Jacobs MD Primary Care Provider [phone] Reason for Referral * MRI/CAT Scan - Closed Specialty Diagnoses / Procedures Referred By Contac t Referred To Contact Radiology Diagnoses Pancreatic cyst Procedures MRI Cholangiopancreatography (MRCP) Oumou Moser PA [address] [place] [address] Phone: tel: fax: Referral ID Status Reason Start Date Expiration Date Visits Re quested Visits Authorized [id number] Closed 03/22/2024 03/22/2025 1 1 Encounter Details Date Type Department Care Team (Latest Contact Info) Description 03/22/2024 Transcribe Orders Virtual Department 30 [place] [address] Oumou Moser PA [address] [place] [address] Pancreatic cyst (Primary Dx) Social History Tobacco [...] clinician's provided indication for this examination in [facility]: Outside Radiology Order; pancreatic cyst TECHNIQUE: [...] clinician's provided indication for this examination in [facility]:Outside Radiology Order; pancreatic cyst TECHNIQUE: Multiplanar [...] pancreas documented in this encounter Care Teams Surgical Garment Inspector Relationship Specialty Start Date End Date Po, Solange Jacobo MD [address] [place] [address] Drive [address] [place] [address] PCP - General Internal Medicine 08/26/17 documented as of this encounter Additional Source Comments The information contained in this document represents components of the legal health record. It is not the complete legal health record.[facility]
--- OUTSIDE RECORDS SUMMARY | 2025-04-06 14:16 | XMS_ITS | Encounter Summary ---
Author Organization [facility] Address [address] [place] [address] Phone Care Team Providers Care Skiver Heel Tap Name Role Phone Solange Jacobs MD Primary Care Provider [phone] Encounter Details Date Type Department Care Team (Late st Contact Info) Description 05/24/2021 Procedure Pass [facility], Ct Scan - [facility] [address] [place] [address] Social History Tobacco Use Types Packs/Day Years [...] 05/24/2021 12:34 PM Joan Alan RN * [place] Suicide Severity Rating Scale (Screener/Recent Self-Report) Question [...] documented as of this encounter Care Teams Skiver Heel Tap Relationship Specialty Start Date End Date Solange Jacobs MD [address] [place] [phone] PCP - General Internal Medicine 08/26/17 documented as of this encounter Additional Source Comments The information contained in this document represents components of the legal health record. It is not the complete legal health record.[facility]
--- OUTSIDE RECORDS SUMMARY | 2025-04-06 14:16 | XMS_ITS | Encounter Summary ---
Author Organization [facility] Address [address] [place] [address] Phone Care Team Providers Care Utilization Reviewer Name Role Phone Solange Jacobs MD Primary Care Provider Encounter Details Date Type Department Care Team (Late st Contact Info) Description 03/14/2022 Procedure Pass [facility] Endoscopy Admitting Dept Virtual Department 30 [place] [address] Social History Tobacco Use Types Packs/Day Years [...] documented as of this encounter Care Teams Utilization Reviewer Relationship Specialty Start Date End Date Solange Jacobs MD [address] [place] [phone] PCP - General Internal Medicine 08/26/17 documented as of this encounter Additional Source Comments The information contained in this document represents components of the legal health record. It is not the complete legal health record.[facility]
--- OUTSIDE RECORDS SUMMARY | 2025-04-06 14:16 | XMS_ITS | Encounter Summary ---
Author Organization [facility] Address [address] [place] [address] Phone Care Team Providers Care Governor Assembler Name Role Phone Solange Jacobs MD Primary Care Provider [phone] Encounter Details Date Type Department Care Team (Late st Contact Info) Description 08/02/2023 Procedure Pass [facility], Ct Scan - [facility] [address] [place] [address] Social History Tobacco Use Types Packs/Day Years [...] 08/02/2023 1:51 PM Sukumar Contreras RN * [place] Suicide Severity Rating Scale (Screener/Recent Self-Report) Question [...] on filedocumented in this encounter Care Teams Governor Assembler Relationship Specialty Start Date End Date Solange Jacobs MD [address] [place] [address] [address] [place] [phone] PCP - General Internal Medicine 08/26/17 documented as of this encounter Additional Source Comments The information contained in this document represents components of the legal health record. It is not the complete legal health record.[facility]
--- OUTSIDE RECORDS SUMMARY | 2025-04-06 14:16 | XMS_ITS | Encounter Summary ---
Author Organization [facility] Address [address] [place] [address] Phone Care Team Providers Care Reducing Salon Attendant Name Role Phone Solange Jacobs MD Primary Care Provider [phone] Encounter Details Date Type Department Care Team (Late st Contact Info) Description 03/22/2024 Procedure Pass [facility] [address] [place] [address] Social History Tobacco Use Types Packs/Day Years [...] on filedocumented in this encounter Care Teams Reducing Salon Attendant Relationship Specialty Start Date End Date Solange Jacobs MD [address] [place] [address] [place] [phone] PCP - General Internal Medicine 08/26/17 documented as of this encounter Additional Source Comments The information contained in this document represents components of the legal health record. It is not the complete legal health record.[facility]
--- OUTSIDE RECORDS SUMMARY | 2025-04-06 14:16 | XMS_ITS | Encounter Summary ---
Author Organization [facility] Address [address] [place] [address] Phone Care Team Providers Care Genetic Supervisor Name Role Phone Solange Jacobs MD Primary Care Provider [phone] Encounter Details Date Type Department Care Team (Late st Contact Info) Description 04/23/2020 Procedure Pass [facility], Ct Scan - [facility] [address] [place] [address] Social History Tobacco Use Types Packs/Day Years [...] documented as of this encounter Care Teams Genetic Supervisor Relationship Specialty Start Date End Date Solange Jacobs MD [address] [place] [phone] PCP - General Internal Medicine 08/26/17 documented as of this encounter Additional Source Comments The information contained in this document represents components of the legal health record. It is not the complete legal health record.[facility]
--- OUTSIDE RECORDS SUMMARY | 2025-04-06 14:16 | XMS_ITS | Encounter Summary ---
Author Organization [facility] Address [address] [place] [address] Phone Care Team Providers Care Flight Crew Scheduler Name Role Phone Solange Jacobs MD Primary Care Provider [phone] Encounter Details Date Type Department Care Team (Latest Contact Info) Description 08/05/2019 Ancillary Orders Virtual Department [address] [place] [address] Bee Barnes MD [address] [place] [address] [email or web address] Lumbar radiculopathy Social History Tobacco Use Types [...] documented as of this encounter Care Teams Flight Crew Scheduler Relationship Specialty Start Date End Date Solange Jacobs MD [address] [place] [address] PCP - General Internal Medicine 08/26/17 documented as of this encounter Additional Source Comments The information contained in this document represents components of the legal health record. It is not the complete legal health record.[facility]
--- OUTSIDE RECORDS SUMMARY | 2025-04-06 14:16 | XMS_ITS | Clinical Summary ---
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.] VACCINE (#1) 2024 COVID-19 VACCINE (2 - season) 2025 05/18/2021 HEMOGLOBIN A1C 05/11/2025 11/09/2024, [...] current use of insulin COMPREHENSIVE METABOLIC PANEL (CMP) Routine 11/09/2024 9:36 AM EDT Inadequately controlled diabetes mellitus Type 2 diabetes mellitus with stage 3a chronic kidney disease, without long-term current use of insulin from Last 3 Months or Most Recently Relevant to Health Maintenance Results * (ABNORMAL) Comprehensive metabolic panel (11/09/2024 9:36 AM EDT) SODIUM 137 133 - 146 mmol/L [facility] POTASSIUM 3.8 3.3 - 5.1 mmol/L [facility] CHLORIDE 100 96 - 108 mmol/L [facility] CO2 26 21 - 35 mmol/L [facility] BUN 14 6 - 19 mg/dL [facility] CREATININE 0.90 0.5 - 1.5 mg/dL [facility] GLUCOSE 177(H) 70 - 99 mg/dL [facility] ALBUMIN 3.8(L) 3.9 - 4.8 g/dL [facility] TOTAL PROTEIN 7.2 6.5 - 8.0 g/dL [facility] CALCIUM 9.7 8.4 - 10.3 mg/dL [facility] ALKALINE PHOSPHATASE 138(H) 39 - 117 U/L [facility] TOTAL BILIRUBIN 0.9 0.0 - 1.2 mg/dL [facility] AST 21 0 - 37 U/L [facility] ALT 13 0 - 40 U/L [facility] GLOBULIN 3.4 1 - 4.8 g/dL [facility] EGFR 62 >59 mL/min/1.7 3m2 [facility] Comment:Estimated glomerular filtration rate calculated using the CKD-EPI refit equation. ANION GAP 15 10 - 20 mmol/L [facility] Blood 11/09/2024 9:36 AM EDT 11/09/2024 9:45 AM EDT us Solange Jacobs MD LAB BLOOD BKR ORDERABLES Elodia l Result [address] [address] * (ABNORMAL) Hemoglobin A1c (11/09/2024 9:36 AM EDT) HEMOGLOBIN A1C 7.8(H) 4.3 - 5.8 % [facility] Blood 11/09/2024 9:36 AM EDT 11/09/2024 9:45 AM EDT us Solange Jacobs MD LAB BLOOD BKR ORDERABLES Elodia l Result [facility] [address] [place], [place] [phone] from Last 3 Months or Most Recently Relevant to Health Maintenance Insurance MEDICARE PART A & B Member Subscriber Plan / Payer (Ef fective 2002-Present) Name:Zuleyma Gutierrez Member ID:[id number] Relation to Subscriber:Self Name:Zuleyma Gutierrez Subscriber ID:[id number] Payer ID:[id number] Group ID:Not on file Type:Medicare Address: [facility] [address] [facility] [place] [address] [facility] [place] [place] [address] MEDICARE PART A & B Member Subscriber Plan / Payer ( fective 1999-Present) Name:Matt Zuleyma Relation to Subscriber:Self Name:Matt Zuleyma Payer ID:Not on file Group ID:Not on file Type:O Address: [facility] ATTN:[employer] CLAIMS [address] [address] [place] [address] MEDICARE PART A & B Member Subscriber Plan / Payer ( fective 2002-Present) Name:Zuleyma Gutierrez Member ID:[id number] Relation to Subscriber:Self Name:Zuleyma Gutierrez Subscriber ID:[id number] Payer ID:[id number] Group ID:Not on file Type:Medicare Address: [facility] [address] [place] [phone] [place] [address] MEDICARE PART A & B [facility] [place] [address] MEDICARE PART A & B MEDICARE PART A & B MEDICARE PART A & B Member Subscriber Plan / Payer (Ef fective 1999-Present) Name:Matt Zuleyma Relation to Subscriber:Self Name:Zuleyma Gutierrez Payer ID:Not on file Group ID:Not on file Type:O Address: [facility] ATTN:[employer] CLAIMS [address] [address] [place] [address] MEDICARE PART A [place] [address] MEDICARE PART A & B [facility] [place] [address] Advance Directives For more information, please contact: [phone] (9AM - 5PM 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 It is not the complete legal health record.[facility]
== END 2025-04-06 10:51 | disposition home or self-care (01) ==
LOC: HO.LAB 10:50
PROVIDERS: PCP Internal Medicine; Visit Provider Internal Medicine
DX: K86.89 Other specified diseases of pancreas (principal); K21.9 Gastro-esophageal reflux disease without esophagitis; K62.5 Hemorrhage of anus and rectum; K59.00 Constipation, unspecified; K86.9 Disease of pancreas, unspecified
CPT/HCPCS: 36415; 74018; 82728; 85027; 99212

== ENCOUNTER → 2025-04-06 11:40 | Outpatient (BNV) | payer MEDICARE, OTHER, SELFPAY | PROVIDERS: PCP Internal Medicine; Visit Provider Radiology Diagnostic Ultrasound | DX: K59.00 Constipation, unspecified (principal) | CPT/HCPCS: 74018 ==

== ENCOUNTER 2025-04-10 21:55 | Inpatient (IN) | payer MEDICARE, OTHER, SELFPAY ==
--- OUTSIDE RECORDS SUMMARY | 2019-07-01 10:53 | XMS_ITS | Continuity of Care Document ---
Author Organization [facility] Address [address] [address] Phone Care Team Providers Care Deputy Prosecuting Attorney Name Role Phone Anton Jean Baptiste DO Unavailable Unavailable Advance Directives Directive Yes / No Effective Date File Name No Information Encounters Encounter Description Practice Location Reason(s) For Visit Diagnoses Date Provider [facility], [address] [place] [address], [id number], [place] tel:[phone] [address] [place] [address] No Information 2019 Markel Walton. [address] [place] [address], [id number], [place]. tel:[phone] Family History Family Member Type Diagnosis Age [...]
--- NOTE | 2025-04-10 | ECG_ITS ---
Test Reason : CP Blood Pressure : */* mmHG Vent. Rate : 119 BPM Atrial Rate : * BPM P-R Int : * ms QRS Dur : 82 ms QT Int : 340 ms P-R-T Axes : * -17 53 degrees QTcB Int : 478 ms Poor data quality, interpretation may be adversely affected Atrial fibrillation with rapid ventricular response with premature ventricular or aberrantly conducted complexes Septal infarct , age undetermined Abnormal ECG When compared with ECG of 24-Mar-2025 17:47, Nonspecific T wave abnormality, improved in Inferior leads Inverted T waves have replaced nonspecific T wave abnormality in Lateral leads Referred By: Generic ED Physician Electronically Signed By: GEORGE SCHMITT MD
--- NOTE | ~2025-04-10 | XR_ITS ---
CLINICAL HISTORY: chest px 1 view chest x-ray Comparison: CR - XR CHEST 1V - 03/26/25 14:31 EDT Findings: New right basilar opacity may be atelectasis or pneumonia. No large effusion or pneumothorax. Heart size is normal. Aortic atherosclerosis. No acute fracture. IMPRESSION: 1. New right basilar opacity, possibly representing atelectasis or pneumonia. This document has been electronically signed by: Kartik Merrill MD on 04/10/2025 23:26:58
--- NOTE | ~2025-04-10 | CT_ITS ---
CLINICAL HISTORY: acute abd pain, sepsis CT abdomen and pelvis with contrast Comparison: CT/REG/SR - CT ABDOMEN PELVIS WO IV CON - 03/27/25 20:[address]/LA/SR - CT ABDOMEN PELVIS WO IV CON - 01/16/24 08:02 EDT Findings: The lung bases are clear. There is coronary artery calcification. There is mild left atrial enlargement. There is a very small hiatal hernia. There are a several small hepatic cysts. There is stable chronic mild biliary duct dilation with no obstructing lesion seen likely related to cholecystectomy and age. The spleen is unremarkable. There is an unchanged tiny benign hypodense nodule or cyst in the left adrenal gland. Right adrenal gland is unremarkable. There are multiple bilateral renal cysts. There is a cystic lesion which appears to be arising from the uncinate process of the pancreas measuring 3.4 x 3.3 cm mildly increased from the prior CTs. There is new thin rim of enhancement and mild surrounding fat stranding. There is stable chronic pancreatic duct dilation the level of the ampulla with no obstructing lesion identified. There is colonic diverticulosis. The gastrointestinal tract is otherwise unremarkable. There is no free fluid or free air. The aorta is diffusely atherosclerotic, but normal in diameter. There are no enlarged lymph nodes. Patient is status post hysterectomy. The bladder is unremarkable. There are severe degenerative changes throughout the lumbar spine. There is no acute fracture or suspicious lytic or sclerotic lesion. IMPRESSION: 1. 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 The lesion has mildly increased in size from the recent CT and now has a thin rim of enhancement and mild surrounding fat stranding consistent with infection/inflammation. 2. Additional chronic findings as above. This document has been electronically signed by: Maurizio Godinez MD on 04/11/2025 02:54:01
[2025-04-10 22:01] VITALS: BP 144/73; PULSE 150; O2SAT 94; BMI 24.0
[2025-04-10 22:17] VITALS: BP 127/54; PULSE 98; RESP 18; TEMP 37.2; O2SAT 100
[2025-04-10] MEDS: Lactated Ringers 1,000 ML 999 ML IV (22:26)
[2025-04-10 22:39] LABS: Hematocrit 29.0 % (37.0-47.0); Hemoglobin 8.8 g/dl (12.0-16.0); Imm Gran Abs Auto 0.05 X10*3/uL (0.00-0.03); Imm Gran Pct Auto 0.4 % (0.0-0.4); Lymphocytes Absolute Auto 1.3 X10*3/uL (1.2-4.9); Mean Corpuscular HGB Conc 30.3 g/dl (31.0-35.0); Mean Corpuscular Hemoglobin 22.9 pg (27.0-33.0); Mean Corpuscular Volume 75.5 fL (80.0-98.0); NRBC Abs Auto 0.000 X10*3/uL (0.0-0.012); NRBC Pct Auto 0.0 /100WBC (0.0-0.2); Platelet Count 305 X10*3/uL (160-400); Red Blood Count 3.84 X10*6/uL (4.20-5.50); White Blood Count 11.1 X10*3/uL (4.8-10.8)
--- NOTE | 2025-04-10 22:45 | PC.NURSE ---
pt medicated per MAR.
[2025-04-10 22:53] LABS: Alanine Aminotransferase < 6 U/L (0-31); Albumin Level 3.3 g/dL (3.5-5.0); Alkaline Phosphatase 88 U/L (39-117); Anion Gap 18 (12-20); Aspartate Amino Transferase 29 U/L (5-31); Blood Urea Nitrogen 11 mg/dL (9-16); Calcium 9.3 mg/dL (8.4-10.2); Carbon Dioxide 27 mmol/L (22-29); Chloride 98 mmol/L (96-108); Creatinine Clr Calc Pharmacy 27.6; Estimated Glomerular Filt Rate 46; Potassium 3.1 mmol/L (3.3-5.1); Sodium 140 mmol/L (135-145); Total Protein 6.2 g/dL (6.5-8.0)
--- NOTE | 2025-04-10 23:36 | ED.CHESTPAIN ---
HPI - Chest Pain General Chief Complaint: Chest Pain Stated Complaint: Chest pain,N/V Time Seen by Provider: 04/10/25 22:10 Source: patient, EMS, RN notes reviewed and old records reviewed Mode of arrival: EMS Limitations: physical limitation History of Present Illness ED Provider: Dr. Mindi Del Valle HPI narrative: 89-year-old female with a history of COPD, aortic stenosis, atrial fibrillation on digoxin and Eliquis, hypertension, diabetes, TIA, recent admission for acute pancreatitis presenting with epigastric abdominal pain that is poorly characterized, nausea, vomiting and diarrhea. Patient is unable to give much history secondary to her clinical condition. Patient was brought in by ambulance from home due to vomiting starting around 6 p.m. this evening. No reported hematemesis or hematochezia. Patient admits to liquid stools. She is extremely anxious, writhing around in the bed clutching at her upper abdomen. Received fentanyl EN route by EMS without any real relief. Related Data Home Medications ?Medication ?Instructions ?Recorded ?Confirmed metoprolol succinate 50 mg 50 mg PO DAILY 08/01/24 03/31/25 tablet,extended release 24 hr albuterol sulfate 90 mcg/actuation 1 inh inhalation QID PRN Shortness 02/21/25 03/31/25 aerosol inhaler Of Breath Or Wheezing digoxin 125 mcg (0.125 mg) tablet 125 mcg PO MOWEFR 02/21/25 03/31/25 empagliflozin 25 mg tablet 25 mg PO DAILY 02/21/25 03/31/25 meclizine 12.5 mg tablet 12.5 mg PO TID PRN Vertigo 02/21/25 03/31/25 tramadol 50 mg tablet 50 mg PO BID PRN pain 02/21/25 03/31/25 diclofenac sodium 1 % topical gel 1 ea topical QID PRN Pain 03/25/25 03/31/25 nystatin 100,000 unit/gram topical 1 appl topical DAILY 03/25/25 03/31/25 powder sitagliptin 25 mg tablet 25 mg PO DAILY 03/25/25 03/31/25 duloxetine 30 mg capsule,delayed 30 mg PO BEDTIME 04/06/25 release lisinopril 10 mg tablet 10 mg PO DAILY 04/06/25 Previous Rx's ?Medication ?Instructions ?Recorded PEDIATRIC FRONT WHEELED WALKER #1 ea 04/18/24 lancets 28 gauge (FreeStyle #100 ea 11/17/23 Lancets) ascorbic acid (vitamin C) 500 mg 500 mg PO DAILY #90 tabs 08/04/24 tablet (Vitamin C) cholecalciferol (vitamin D3) 25 25 mcg PO DAILY #90 caps 08/04/24 mcg (1,000 unit) capsule cyanocobalamin (vitamin B-12) 1,000 mcg PO DAILY #90 tabs 08/04/24 1,000 mcg tablet (Vitamin B-12) incontinence pad, liner, disp #60 ea 08/19/24 blood sugar diagnostic (FreeStyle #100 ea 09/16/24 Lite Strips) apixaban 2.5 mg tablet (Eliquis) 2.5 mg PO BID #180 tabs 10/05/24 Held on 03/30/25. Instructions: Resume on 04/06/25. Adult pull ups #300 ea 12/10/24 atorvastatin 40 mg tablet (Lipitor) 40 mg PO BEDTIME #90 tabs 01/10/25 umeclidinium 62.5 mcg-vilanterol 1 inh inhalation DAILY #3 ea 01/10/25 25 mcg/actuation powdr for inhalation (Anoro Ellipta) tamsulosin 0.4 mg capsule 0.4 mg PO BEDTIME 90 days #90 caps 01/24/25 pregabalin 100 mg capsule 100 mg PO Q12H 31 days #62 caps 01/26/25 alprazolam 0.25 mg tablet 0.25 mg PO DAILY PRN anxiety #20 02/01/25 tabs famotidine 40 mg tablet 40 mg PO BEDTIME #90 tabs 02/02/25 furosemide 40 mg tablet 40 mg PO DAILY #90 tabs 02/19/25 zolpidem 5 mg tablet 5 mg PO BEDTIME PRN insomnia #30 03/18/25 tabs calcium carb 1,200 mg-mag hydrox 10 ml PO BID PRN heartburn #355 mL 04/06/25 270 mg-simeth 80 mg/10 mL oral susp (Mylanta Coat-Cool) glycerin (child) 2 supp MT DAILY PRN constipation 04/06/25 30 days #25 ea polyethylene glycol 3350 17 17 g PO Q OTHER DAY 30 days #238 04/06/25 gram/dose oral powder (Miralax) grams Allergies Allergy/AdvReac Type Severity Reaction Status Date / Time ciprofloxacin Allergy Severe unknown Verified 04/10/25 22:05 aspirin (Aspirin) Allergy Unknown UNKNOWN Verified 04/10/25 22:05 cefuroxime Allergy Unknown Unknown Verified 04/10/25 22:05 celecoxib (From Celebrex) Allergy Unknown UNKNOWN Verified 04/10/25 22:05 metformin Allergy Unknown diarrhea Verified 04/10/25 22:05 risedronate sodium (From Allergy Unknown UNKNOWN Verified 04/10/25 22:05 Actonel) Sulfa (Sulfonamide Allergy Unknown unknown Verified 04/10/25 22:05 Antibiotics) bupropion AdvReac Intermediate tremor Verified 04/10/25 22:05 ferrous sulfate AdvReac Intermediate tremors Verified 04/10/25 22:05 sertraline AdvReac Intermediate tremors Verified 04/10/25 22:05 Review of Systems Review of Systems: Yes Unobtainable due to mental condition [facility] Past Medical History Medical History Contusion of second toe of left foot Diarrhea Constipation Weakness Dizziness and giddiness Weakness Yeast infection of the skin Exercise hypoxemia Acute respiratory failure with hypoxia Lipoma of lower back Urinary incontinence Cystitis Acute urinary retention Acute diverticulitis of intestine Generalized abdominal pain Diverticular disease Nausea & vomiting Failure to thrive in adult TSH elevation CHF (congestive heart failure) Atrial fibrillation with RVR Atrial fibrillation with RVR Type 2 diabetes mellitus with hyperglycemia Diabetes mellitus Asthma Hypokalemia Hypomagnesemia Hearing difficulty Dyspnea on exertion History of gastrointestinal diverticular hemorrhage COVID-19 virus infection Rectal bleeding Medicare annual wellness visit, initial Hip pain, left Patellar sleeve fracture of right knee Knee pain, right Nausea and vomiting Coarse tremors Shoulder pain, right Hospital discharge follow-up Mass on back Tinea corporis Nausea Right wrist pain Left knee pain Left hip pain Toe pain, left Breast cancer screening by mammogram UTI (urinary tract infection) Obesity (BMI 30-39.9) Urinary frequency Toe fracture, left Pancreatic cyst Osteoporosis Peptic ulcer disease Urinary incontinence Rectal incontinence GERD (gastroesophageal reflux disease) Bile salt-induced diarrhea Vaginal prolapse Renal artery stenosis Asthma Lumbar degenerative disc disease Insomnia TIA (transient ischemic attack) Hyperlipidemia, unspecified Essential hypertension Surgical History Hx of colonoscopy History of esophagogastroduodenoscopy (EGD) History of removal of cyst (~10/17/21) History of hemorrhoidectomy History of colectomy History of section History of hysterectomy History of appendectomy History of cholecystectomy Family History Family History Father Cancer Arterial thrombosis Mother Multiple sclerosis Muscular dystrophy Hypertension Depression Chronic mental illness Mental health disorder Brother No problems noted. Brother Gangrene Sister No problems noted. Son No problems noted. Son No problems noted. Son No problems noted. Son No problems noted. Daughter No problems noted. Daughter No problems noted. Daughter No problems noted. Social History Social History Household Members: None Housing: Apartment Do you presently have visiting nurse or other home services: Yes (Suzanne BUITRAGO) Alcohol intake: former Comment: 1:1 sitter. Patient Tobacco Use Status: Former Tobacco user Tobacco use type: Cigarette Years Smoked: 22 e-Cigarette/Vaping Use: Former Use Second Hand Smoke Exposure: Yes Advance Directives Date on File: 08/11/23 service: No Current occupational status: disabled Current occupational exposures/hazards: No Cognitive needs: Yes (walker) Hearing needs: Yes Vision needs: Yes (Glasses) Physical Exam Exam: Exam: GENERAL: Ill-Appearing, appears uncomfortable. SKIN: Normal skin color for ethnicity, warm, dry, no rashes noted. HEENT:? Normocephalic, atraumatic, no stridor, dry mucous membranes, dentition intact, EOMI. NECK: Soft, supple, full ROM, midline structures nontender, no step-offs, no deformities, no lymphadenopathy. CHEST: Heart irregularly irregular tachycardia, systolic ejection murmur at the left upper sternal border, symmetric chest rise and fall. PULMONARY: Clear to auscultation bilaterally, diminished at the bases, no labored breathing, no wheezes/rhales/rhonchi. ABDOMINAL: Soft, nondistended, diffusely tender to palpation with voluntary guarding, positive bowel sounds in all quadrants. : Deferred. MUSCULOSKELETAL: Normal tone, full range of motion, no deformities, no peripheral edema. NEURO: Alert and oriented to person, CN II through XII intact, equal strength and sensation bilateral upper and lower extremities, no focal neurologic deficits.? PSYCHIATRIC: Flat affect, poor eye contact and difficult to redirect. Vital Signs: Vital Signs: Last Vital Signs Temp 97.7 F 04/11/25 02:05 Pulse 88 04/11/25 00:31 Resp 18 04/11/25 00:31 BP 118/54 L 04/11/25 02:05 Pulse Ox 100 04/11/25 00:31 O2 Del Method Nasal Cannula 04/11/25 00:31 O2 Flow Rate 2 04/11/25 00:31 BMI result Body Mass Index 24.0 Medications Administered Discontinued Medications Generic Name Dose Route Start Last Admin Trade Name Freq PRN Reason Stop Dose Admin Diazepam 2.5 mg 04/10/25 23:30 04/11/25 00:00 Diazepam 10 Mg/2 Ml Cartridge IVPUSH 04/10/25 23:31 2.5 mg STAT STA Administration Lactated Ringer's 1,000 mls @ 999 mls/hr 04/10/25 22:17 04/11/25 00:04 Lr IV 04/10/25 23:17 Infused .Q1H1M ONE Infusion Acetaminophen 1,000 mg in 100 mls @ 400 mls/hr 04/10/25 22:17 04/10/25 23:00 Ofirmev IV 04/10/25 22:31 Infused ONCE ONE Infusion Piperacillin Sod/Tazobactam 100 mls @ 200 mls/hr 04/10/25 23:31 04/11/25 00:34 Sod 4.5 gm/ Sodium Chloride IV 04/11/25 00:00 Infused ONCE ONE Infusion Lactated Ringer's 1,000 mls @ 999 mls/hr 04/11/25 00:25 04/11/25 02:41 Lr IV 04/11/25 01:25 Infused .Q1H1M ONE Infusion Iohexol 85 ml 04/11/25 01:21 04/11/25 01:21 Iohexol 350 Mg/Ml 100 Ml Infus..Btl IV 04/11/25 01:22 85 ml ONCE ONE Administration Pregabalin 100 mg 04/11/25 00:25 04/11/25 00:36 Pregabalin 100 Mg Capsule PO 04/11/25 00:26 100 mg ONCE ONE Administration Medical Decision Making Medical Decision Making MDM Narrative: 89-year-old female with extensive past medical history presenting with vomiting and epigastric abdominal pain in the setting of recent admission for pancreatitis. Differential diagnosis for this patient is broad.? It includes pancreatitis, cholecystitis, bowel obstruction, diverticulitis, peptic ulcer disease, pyelonephritis, vascular pathology, among many others.? A broad-based workup based on history and physical examination was obtained. ? Patient was given Tylenol for pain control. ? Patient flagging for sepsis with heart rate, elevated lactic acid level. Blood pressure remains normal. She received an IV fluid bolus, Zosyn for broad-spectrum coverage of potential intra-abdominal source. Initially got a lactic acid level for concern for mesenteric ischemia. That being said, her pain has significantly improved with benzodiazepines. Awaiting CT results. Patient is having severe restless legs syndrome which has been an issue for her in the past as well. She takes pregabalin at baseline. We will order a dose of that here. Restless leg issue has resolved. Patient is more hemodynamically stable, heart rate improving significantly. Her blood pressure is on the softer side after IV benzodiazepines. We will order an additional L of IV fluids. Urine is grossly infected. She already received a dose of Zosyn. Awaiting cultures and sensitivities for change in antibiotic choice. CT showing evidence of pancreatitis which is acute on chronic. No evidence of mesenteric ischemia. Plan for admission to hospitalist for further care and evaluation. Admitted in guarded condition. Differential Diagnosis Differential Diagnoses: The differential diagnosis associated with the presentation includes (As above) Admission/Observation Consideration of admission/observation: Escalation of care including admission/observation considered Consult Healthcare Provider Management of the patient was discussed with: Hospitalist Lab Data MDM Lab Attestation statement: I reviewed the patient's lab results. 04/10/25 22:32 04/10/25 22:32 Labs: Lab Results 04/10/25 04/10/25 04/11/25 Range/Units 22:31 22:32 00:49 WBC 11.1 H (4.8-10.8) X10*3/uL RBC 3.84 L (4.20-5.50) X10*6/uL Hgb 8.8 L (12.0-16.0) g/dl Hct 29.0 L (37.0-47.0) % MCV 75.5 L (80.0-98.0) fL MCH 22.9 L (27.0-33.0) pg MCHC 30.3 L (31.0-35.0) g/dl RDW 18.8 H (11.0-16.0) % Plt Count 305 (160-400) X10*3/uL MPV 10.5 (9.4-12.3) fL Immature Gran % (Auto) 0.4 (0.0-0.4) % Neut % (Auto) 70.5 (45-73) % Lymph % (Auto) 11.5 L (20-40) % [place] % (Auto) 15.9 H (2-11) % Eos % (Auto) 1.4 (0-4) % Baso % (Auto) 0.3 (0-2) % Lymph # (Auto) 1.3 (1.2-4.9) X10*3/uL [place] # (Auto) 1.8 H (0.1-1.2) X10*3/uL Eos # (Auto) 0.2 (0.0-0.4) X10*3/uL Baso # (Auto) 0.0 (0.0-0.2) X10*3/uL Abs Immat Gran (auto) 0.05 H (0.00-0.03) X10*3/uL Absolute Neuts (auto) 7.8 (2.0-8.3) x10*3/uL Absolute Nucleated RBC 0.000 (0.0-0.012) X10*3/uL Nucleated RBC % (auto) 0.0 (0.0-0.2) /100WBC Smear Tech's Comments VERIFIED Sodium 140 (135-145) mmol/L Potassium 3.1 L (3.3-5.1) mmol/L Chloride 98 (96-108) mmol/L Carbon Dioxide 27 (22-29) mmol/L Anion Gap 18 (12-20) BUN 11 (9-16) mg/dL Creatinine 1.11 (0.5-1.4) mg/dL Estim Creat Clear Calc 27.6 Estimated GFR 46 Random Glucose 145 H (60-115) mg/dL Lactic Acid 3.6 H* (0.5-2.0) mmol/L Lactic Acid F/U @ 2Hr 2.7 H* (0.5-2.0) mmol/L Calcium 9.3 (8.4-10.2) mg/dL Magnesium 1.9 (1.6-2.6) mg/dL Total Bilirubin 1.2 H (0.0-1.0) mg/dL AST 29 (5-31) U/L ALT < 6 (0-31) U/L Alkaline Phosphatase 88 (39-117) U/L Troponin I High Sens 6.2 (<3.5-17.0) ng/L Total Protein 6.2 L (6.5-8.0) g/dL Albumin 3.3 L (3.5-5.0) g/dL Lipase 48 (8-78) U/L Urine Color Urine Appearance Urine pH (5.0-9.0) Ur Specific [place] (1.005-1.025) Urine Protein (Neg-Trace) mg/dL Urine Glucose (UA) (Negative) mg/dL Urine Ketones (Negative) mg/dL Urine Blood (Negative) Urine Nitrite (Negative) Ur Leukocyte Esterase (Negative) Urine RBC (0-2) /HPF Urine WBC (0-5) /HPF Ur Squamous Epith Cells (0-2) /HPF Urine Bacteria (None Seen) Hyaline Casts (0-2) /LPF Digoxin < 0.2 L (0.8-2.0) ng/mL 04/11/25 Range/Units 01:12 WBC (4.8-10.8) X10*3/uL RBC (4.20-5.50) X10*6/uL Hgb (12.0-16.0) g/dl Hct (37.0-47.0) % MCV (80.0-98.0) fL MCH (27.0-33.0) pg MCHC (31.0-35.0) g/dl RDW (11.0-16.0) % Plt Count (160-400) X10*3/uL MPV (9.4-12.3) fL Immature Gran % (Auto) (0.0-0.4) % Neut % (Auto) (45-73) % Lymph % (Auto) (20-40) % [place] % (Auto) (2-11) % Eos % (Auto) (0-4) % Baso % (Auto) (0-2) % Lymph # (Auto) (1.2-4.9) X10*3/uL [place] # (Auto) (0.1-1.2) X10*3/uL Eos # (Auto) (0.0-0.4) X10*3/uL Baso # (Auto) (0.0-0.2) X10*3/uL Abs Immat Gran (auto) (0.00-0.03) X10*3/uL Absolute Neuts (auto) (2.0-8.3) x10*3/uL Absolute Nucleated RBC (0.0-0.012) X10*3/uL Nucleated RBC % (auto) (0.0-0.2) /100WBC Smear Tech's Comments Sodium (135-145) mmol/L Potassium (3.3-5.1) mmol/L Chloride (96-108) mmol/L Carbon Dioxide (22-29) mmol/L Anion Gap (12-20) BUN (9-16) mg/dL Creatinine (0.5-1.4) mg/dL Estim Creat Clear Calc Estimated GFR Random Glucose (60-115) mg/dL Lactic Acid (0.5-2.0) mmol/L Lactic Acid F/U @ 2Hr (0.5-2.0) mmol/L Calcium (8.4-10.2) mg/dL Magnesium (1.6-2.6) mg/dL Total Bilirubin (0.0-1.0) mg/dL AST (5-31) U/L ALT (0-31) U/L Alkaline Phosphatase (39-117) U/L Troponin I High Sens (<3.5-17.0) ng/L Total Protein (6.5-8.0) g/dL Albumin (3.5-5.0) g/dL Lipase (8-78) U/L Urine Color Yellow Urine Appearance Turbid Urine pH 7.5 (5.0-9.0) Ur Specific [place] <= 1.005 (1.005-1.025) Urine Protein Negative (Neg-Trace) mg/dL Urine Glucose (UA) >=1000 H (Negative) mg/dL Urine Ketones Negative (Negative) mg/dL Urine Blood Moderate (2+) H (Negative) Urine Nitrite Negative (Negative) Ur Leukocyte Esterase Moderate (2+) H (Negative) Urine RBC >20 H (0-2) /HPF Urine WBC >50 H (0-5) /HPF Ur Squamous Epith Cells 11-20 (0-2) /HPF Urine Bacteria 4+ (None Seen) Hyaline Casts 6-10 (0-2) /LPF Digoxin (0.8-2.0) ng/mL Independent Interpretation I performed an independent interpretation of an: EKG Interpretation: My independent interpretation of the ECG reveals atrial fibrillation with a RVR with rate of 119, normal axis, normal intervals, no ST elevations or depressions to suggest ischemic changes, relatively unchanged from previous on 03/24/2025. Radiology Impression Discussion of test interpretation with radiology: I have reviewed the radiologist's reading. Radiologist Impression: CT abdomen and pelvis with contrast Findings: The lung bases are clear. There is coronary artery calcification. There is mild left atrial enlargement. There is a very small hiatal hernia. There are a several small hepatic cysts. There is stable chronic mild biliary duct dilation with no obstructing lesion seen likely related to cholecystectomy and age. The spleen is unremarkable. There is an unchanged tiny benign hypodense nodule or cyst in the left adrenal gland. Right adrenal gland is unremarkable. There are multiple bilateral renal cysts. There is a cystic lesion which appears to be arising from the uncinate process of the pancreas measuring 3.4 x 3.3 cm mildly increased from the prior CTs. There is new thin rim of enhancement and mild surrounding fat stranding. There is stable chronic pancreatic duct dilation the level of the ampulla with no obstructing lesion identified. There is colonic diverticulosis. The gastrointestinal tract is otherwise unremarkable. There is no free fluid or free air. The aorta is diffusely atherosclerotic, but normal in diameter. There are no enlarged lymph nodes. Patient is status post hysterectomy. The bladder is unremarkable. There are severe degenerative changes throughout the lumbar spine. There is no acute fracture or suspicious lytic or sclerotic lesion. IMPRESSION: 1. 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 The lesion has mildly increased in size from the recent CT and now has a thin rim of enhancement and mild surrounding fat stranding consistent with infection/inflammation. 2. Additional chronic findings as above. Independent Historian Clinical information obtained from an independent historian. History obtained from or confirmed by: EMS External Record Review External record reviewed: Inpatient record Prescription Management I considered prescription management with: Antibiotic Chronic Conditions Patient?s care impacted by: Diabetes, Hypertension and Other (Atrial fibrillation, COPD, chronic anemia,) Social Determinants Patient?s care significantly limited by Social Determinants of Health including: Other Social Determinant of Health Critical Care Time Critical Care Time Critical Care Time: Yes Total Critical Care Time: 45 Attestation: CRITICAL CARE TIME: 45 minutes of critical care time was spent in direct patient care at the bedside or in the immediate area with this patient. Critical care was necessary to treat or prevent imminent or life-threatening deterioration of the following conditions severe sepsis, atrial fibrillation with RVR due to pancreatitis, UTI, aspiration pneumonia. This patient is high risk for decompensation and/or . This time was spent assessing and managing the patient, interpreting labs and imaging, coordinating care with other medical providers, gathering history from either the patient, their representatives, EMS or chart review, and discussing management with hospitalist. Discharge Plan Discharge Clinical Impression: Abdominal pain, acute, epigastric, Atrial fibrillation with rapid ventricular response, Acute pancreatitis, Acute UTI, Severe sepsis with lactic acidosis Patient Disposition: Admitted As Inpatient Print Language: Yakut
[2025-04-10 23:41] LABS: Magnesium 1.9 mg/dL (1.6-2.6)
--- OUTSIDE RECORDS SUMMARY | 2025-04-10 23:47 | XMS_ITS | Encounter Summary ---
Author Organization [facility] Address [address] [place] [id number] Phone Care Team Providers Care Lobby Attendant Name Role Phone Solange Jacobs MD Primary Care Provider [phone] Encounter Details Date Type Department Care Team (Late st Contact Info) Description 08/26/2017 Procedure Pass [facility], Ct Scan - [facility] [address] [place] [address] Social History Tobacco Use Types Packs/Day Years [...] documented as of this encounter Care Teams Lobby Attendant Relationship Specialty Start Date End Date Solange Jacobs MD [address] [place] [address] [place] [phone] PCP - General Internal Medicine 08/26/17 documented as of this encounter Additional Source Comments The information contained in this document represents components of the legal health record. It is not the complete legal health record.[facility]
--- OUTSIDE RECORDS SUMMARY | 2025-04-10 23:47 | XMS_ITS | Encounter Summary ---
Author Organization [facility] Address [address] [place] [address] Phone Care Team Providers Care Clarifying Plant Operator Name Role Phone Solange Jacobs MD Primary Care Provider [phone] Encounter Details Date Type Department Care Team (Late st Contact Info) Description 03/10/2021 Procedure Pass [facility], Ct Scan - [facility] [address] [place] [address] Social History Tobacco Use Types Packs/Day Years [...] 12:20 PM EDT Katie Hugo, JUAN * [place] Suicide Severity Rating Scale (Screener/Recent Self-Report) Question Answer Date of Assessment Author 1. Wish to be (Past 1 Month) No 021 12:20 PM EDT Katie Hugo, RN 2. Non-Specific Active Suici avishnavi Thoughts (Past 1 Month) No 03/10/2021 12:20 [...] documented as of this encounter Care Teams Clarifying Plant Operator Relationship Specialty Start Date End Date Solange Jacobs MD [address] [place] [phone] PCP - General Internal Medicine 08/26/17 documented as of this encounter Additional Source Comments The information contained in this document represents components of the legal health record. It is not the complete legal health record.[facility]
--- OUTSIDE RECORDS SUMMARY | 2025-04-10 23:47 | XMS_ITS | Encounter Summary ---
Author Organization [facility] Address [address] [place] [address] Phone Care Team Providers Care Registered Midwife Name Role Phone Solange Jacobs MD Primary Care Provider [phone] Encounter Details Date Type Department Care Team (Late st Contact Info) Description 10/10/2022 Procedure Pass [facility], Ct Scan - [facility] [address] [place] [address] Social History Tobacco Use Types Packs/Day Years [...] documented as of this encounter Care Teams Registered Midwife Relationship Specialty Start Date End Date Solange Jacobs MD [address] [place] [phone] PCP - General Internal Medicine 08/26/17 documented as of this encounter Additional Source Comments The information contained in this document represents components of the legal health record. It is not the complete legal health record.[facility]
--- OUTSIDE RECORDS SUMMARY | 2025-04-10 23:47 | XMS_ITS | Data Portability ---
Author Organization [facility], Main Office Address [address] [place] [address] Care Team Providers Care Emergency Planning And Response Manager Name Role Phone CHIQUIS ESCOBEDO - [...] Xanax 0.25 mg tablet 024 01/14/20 24 [facility] , [address] [place], [address], 4 18:34:50 Patient TargetsNo targets recorded. Patient InstructionsNo instructions recorded. Reason for Referral None Reported. Problems Name Problem SNOMED Code Status Onset Date Resolution Date Notes Provider Name and Address Organization Details Recorded Time Type 2 diabetes mellitus 69569965 Active 2023 Charis Lowry NP [address] [facility], [facility] [address], [place], [address], [facility] 4 13:18:25 Chronic obstructive pulmonary disease 79011989 Active 2023 Charis Lowry NP [address] [facility], [facility] [address], [place], [address], [facility] 4 13:18:33 Congestive heart failure 15514736 Active 2023 Charis Lowry NP [address] [facility], [address], [place], [address], [facility] 4 13:18:38 Acute respiratory failure 12025807 Active 2023 Charis Lowry NP [address], [address], [place], [address], [facility] 4 13:18:55 Atrial fibrillation 25298895 Active 2023 Charis Lowry NP [address], [address], [place], [address], [facility] 4 13:22:29 Tremor 31176656 Active 2023 Charis Lowry NP [address], [address], [place], [address], [facility] 4 13:23:07 Mixed anxiety and depressive disorder 583109757 Active 2023 Charis Lowry NP [address], [address], [place], [address], [facility] 4 13:23:16 Chronic pain 72474539 Active 2023 Charis Lowry NP [address], [address], [place], [address], [facility] 4 13:28:13 Anemia 242301536 Active 2023 Charis Lowry NP [address], [address], [place], [address], [facility] 4 13:28:23 Cyst of pancreas 02845137 Active 2023 Charis Lowry NP [address], [address], [place], [address], [facility] 4 13:28:47 Hyperlipidemia 35569570 Active 2023 Charis Lowry NP [address], [address], [place], [address], [facility] 4 13:28:58 Gastroesophage al reflux disease 015380564 Active 2023 Charis Lowry NP [address], [address], [place], [address], [facility] 4 13:29:37 Hypertensive disorder 87948209 Active 2023 Charis Lowry NP [address] [facility], [address], [place], [address], [facility] 4 13:31:15 Problem Notes None recorded. Medical Equipment None Reported. Allergies Allergen ID Allergen Name Allergen Category Reaction Reaction Severity Criticality Documentation Date Start Date Code Code System Note Provider Name and Address Organization Details Recorded Time 39063 aspirin medicatio n other Not available unabletoasse 01/14/2024 1191 RxNorm unkno wn Charis Lowry NP [address] [facility], [address], [place], [address], [facility] 4 12:52:40 85282 cefuroxim e Not available other Not available unabletoasse 01/14/2024 2194 RxNorm unkno seun Lowry NP [address] [facility], [address], [place], [address], [facility] 4 12:53:03 88555 celecoxib medicatio n other Not available unabletoasse 01/14/2024 84921 7 RxNorm unkno wn Charis Lowry NP [address] [facility], [address], [place], [address], [facility] 4 12:53:18 31746 ciproflox acin medicatio n other Not available unabletoasse 01/14/2024 2551 RxNorm unkno seun Lowry NP [address] [facility], [address], [place], [address], [facility] 4 12:53:34 77952 ferrous sulfate medicatio n other Not available unabletoasse 01/14/2024 31241 RxNorm unkno seun Lowry NP [address] [facility], [address], [place], [address], [facility] 4 12:53:47 00581 metformin medicatio n other Not available unabletoasse 01/14/2024 6809 RxNorm unkno wn Charis Lowry NP [address] [facility], [address], [place], [address], [facility] 4 12:54:05 84267 risedrona te sodium medicatio n other Not available unabletoasse 01/14/2024 67843 RxNorm unkno wn Charis Lowry NP [address] [facility], [address], [place], [address], [facility] 4 12:54:29 87991 sertralin e medicatio n other Not available unabletoasse 01/14/2024 00638 RxNorm unkno wn Charis Lowry NP [address] [facility], [address], [place], [address], [facility] 4 12:54:44 62346 bupropion Not available other Not available unabletoasse 01/14/2024 43300 RxNorm unkno seun Lowry NP [address] [facility], [address], [place], [address], [facility] 4 12:55:26 84545 Substance with sulfonami de structure and antibacte rial mechanism of action (substanc e) medicatio n other Not available unabletoasse 01/14/2024 57566 8003 SNOMED unkno seun Lowry NP [address] [facility], [address], [place], [address], [facility] 4 12:55:43 Medications Name Sig Start Date [...] Address Organization Details Last Updated DateTime 4 68648.2 2 g 90 /min 20 /min 98 [degF] 95 % 95 % 136/88 mm[Hg] Charis Lowry NP [address] [facility], [address], [place], [address], [facility] 13:06:27 Social History Question Answer Notes LastModified by Organizat ion Details LastModified Time Tobacco Smoking Status Former Smoker Charis Lowry, PANDA [address] [facility], [address], [place], [address], [facility] 01/14/2024 12:59:12 Do You Have An [...] conjugate PCV 13 6 completed Yazmin daley, [facility] 01/14/2024 12:45:53 influenza, unspecified formulation 2 completed Yazmin [facility] 01/14/2024 12:46:10 influenza, unspecified formulation 3 completed Yazminrosenda [facility] 01/14/2024 12:46:17 SARS-COV-2 (COVID-19) vaccine, UNSPECIFIED 1 completed Yazmin [facility] 01/14/2024 12:50:53 SARS-COV-2 (COVID-19) vaccine, UNSPECIFIED 1 completed Yazmin [facility] 01/14/2024 12:51:02 SARS-COV-2 (COVID-19) vaccine, UNSPECIFIED 1 completed Yazmin [facility] 01/14/2024 12:51:09 SARS-COV-2 (COVID-19) vaccine, UNSPECIFIED 2 completed Yazmin [facility] 01/14/2024 12:51:17 SARS-COV-2 (COVID-19) vaccine, UNSPECIFIED 3 completed Yazminrosenda [facility] 01/14/2024 12:51:24 Past Encounters Encounter ID Performer Location Encounter Start Date Encounter Closed Date Diagnosis/Indication Diagnosis SNOMED-CT Code Diagnosis ICD10 Code Diagnosis IMO Codes Diagnosis Note [id number] Charis Lowry NP [address] [address] 01/14/2024 12:46:17 01/15/2024 13:06:34 Acute respiratory failure 49956865 J96.00 prednisone 40 mg po daily x 4 daysfurose mide 40 mg po dailyalbut gibson qid prn sob/wheezi ngsingulai r 10 mg po lukob16-6- 4 liters prn sob sat <90%monito r resp statuslabs as above Congestive heart failure 41893088 I50.9 see acute resp failure above Chronic ob structive pulmonary disease 00632439 J44.9 see acute resp failure above Atrial fibrillation 6926 5464 I48.91 eliquis 2.5 mg po bid for acmetoprol ol succ 100 mg po ermonitor cardiac status, vitals Mixed anxi ety and depressive disorder 986900628 F41.8 01/13 alprazolam 0.25 mg po bid prn (pt reports it is sched daily at home on the bottle but has been taking up to 4 times a day)monito r Tremor 73105071 R25.1 hx offno medication smonitor Cyst of pancreas 7599510 0 K86.2 see hpihistory of cyst noted on abd ctseen by GI, no new recfollow up with pcp outpt Hyperlipidemia 05628530 E78.5 atrovastat in 40 mg po daily Gastroesop hageal reflux disease 400366547 K21.9 with nausea/vom iting todaydexil ant 60 mg po cap dailyzofra n 4 mg po q 6 hours prn nausea vomingadd pepcid 20 mg po daily x 2 qweekmonit or Chronic pain 54904044 G8 9.29 diclofenac 4 g topically qid for paintramad ol 50 mg po daily prn q 6 hours painpregab edward 100 mg po q 12 hoursmonit or for pain Anemia 671346322 D64.9 vit c 500 mg with ferrous sulfate 325 mg po dailyfolic acid 1 mg po dialymonit or cbc weekly and for s/s of bleedingcy anocobalam in 1000 mcg po daily Hypertensive disorder 38 212779 I10 nifedipine 60 mg po er dailymonit or vitals, need to titrate Nausea and vomiting 1693 2000 R11.2 with nausea and vomiting todayrecen t workup in hospitalde xilant 60 mg po cap dailyzofra n 4 mg po q 6 hours prn nausea vomingadd pepcid 20 mg po daily x 2 qweekconsi agustin ivf if no response of ermonitorl abs stable today Asthenia 73978755 R53.1 with weaknessPT OT eval and treatmonit or for improvemen t/worsenin g Health Concerns Section Related Observation LastModified by Organization Detai ls LastModified Time None Recorded Concern Status LastModified by Organization Details LastModified Time None Recorded Advance Directives Directive N: Payers Insurance Date Sequence Insurance Name Policy Number Policy Quiles Covered Member ID Quiels Member ID Guarantor Name 01/15/2024 1 [place]ICARE [place]: [employer] Zuleyma Gutierrez [id number] Zuleyma Gutierrez 03/24/2024 2 () [id number] Zuleyma Gutierrez Notes Date Note Type Note Provider Name and Address Organization Details Recorded Time 01/14/2024 text/html Pt is seen for an initial intake visit today. PMH: COPD, CHF, DM2, anxiety, hard of hearing, tremors, chronic pain, She is an 88 yo female who presented to [facility] 01/09-01/13/24 with shortness of breath, dizziness, anxiety, and lower extremity swelling felt related to CHF and afib. She is now at [facility] for continued care and rehab. Hospital workup [...] MOLST: full code Charis Lowry, PANDA [address] [facility], [address], [place], [address], [facility] 01/14/2024 14:11:50 OBGyn Episode No OBEpisode recorded.
--- OUTSIDE RECORDS SUMMARY | 2025-04-10 23:47 | XMS_ITS | Encounter Summary ---
Author Organization [facility] Address [address] [place] [address] Phone Care Team Providers Care Construction Project Engineer Name Role Phone Solange Jacobs MD Primary Care Provider [phone] Reason for Referral * Physical Therapy (Routine) - Closed Specialty Diagnoses / Procedures Referred By Contac t Referred To Contact Physical Therapy Diagnoses Encounter for rehabilitation System, Provider Not In, [facility] [address] [place] [address] Phone: tel: Referral ID Status Reason Start Date Expiration Date Visits Re quested Visits Authorized [id number] Closed 07/01/2018 06/01/2019 99 [phone] Encounter Details Date Type Department Care Team (Latest Contact Info) Description 06/10/2018 Transcribe Orders [facility] [address] [place] [address] Solange Jacobs MD [address] [place] [address] Encounter for rehabilitation (Primary Dx) Social [...] Diagnoses Orde r Schedule Ambulatory referral to [facility] Physical Therapy Outpatient Referral Routine Encounter for [...] documented as of this encounter Care Teams Construction Project Engineer Relationship Specialty Start Date End Date Solange Jacobs MD [address] [facility] [address] [place] [address] PCP - General Internal Medicine 08/26/17 documented as of this encounter Additional Source Comments The information contained in this document represents components of the legal health record. It is not the complete legal health record.[facility]
--- OUTSIDE RECORDS SUMMARY | 2025-04-10 23:48 | XMS_ITS | Encounter Summary ---
Author Organization [facility] Address [address] [place] [address] Phone Care Team Providers Care Baking Factory Worker Name Role Phone Solange Jacobs MD Primary Care Provider [phone] Encounter Details Date Type Department Care Team (Late st Contact Info) Description 10/07/2022 Procedure Pass [facility] [address] [place] [address] Social History Tobacco Use Types Packs/Day Years [...] documented as of this encounter Care Teams Baking Factory Worker Relationship Specialty Start Date End Date Solange Jacobs MD [address] [place] [phone] PCP - General Internal Medicine 08/26/17 documented as of this encounter Additional Source Comments The information contained in this document represents components of the legal health record. It is not the complete legal health record.[facility]
--- OUTSIDE RECORDS SUMMARY | 2025-04-10 23:48 | XMS_ITS | Encounter Summary ---
Author Organization [facility] Address [address] [place] [address] Phone Care Team Providers Care Grocery Department Manager Name Role Phone Solange Jacobs MD Primary Care Provider Encounter Details Date Type Department Care Team (Late st Contact Info) Description 10/06/2022 Procedure Pass [facility], Ct Scan - [facility] [address] [place] [address] Social History Tobacco Use Types Packs/Day Years [...] 5:41 PM EDT Manolo Sales RN * [place] Suicide Severity Rating Scale (Screener/Recent Self-Report) Question [...] documented as of this encounter Care Teams Grocery Department Manager Relationship Specialty Start Date End Date Solange Jacobs MD [address] [place] [address] PCP - General Internal Medicine 08/26/17 documented as of this encounter Additional Source Comments The information contained in this document represents components of the legal health record. It is not the complete legal health record.[facility]
--- OUTSIDE RECORDS SUMMARY | 2025-04-10 23:48 | XMS_ITS | Encounter Summary ---
Author Organization [facility] Address [address] [place] [address] Phone Care Team Providers Care Inflatable Buildings Laminator Name Role Phone Solange Jacobs MD Primary Care Provider [phone] Encounter Details Date Type Department Care Team (Late st Contact Info) Description 03/13/2022 Procedure Pass [facility], Ct Scan - [facility] [address] [place] [address] Social History Tobacco Use Types Packs/Day Years [...] 9:16 PM EDT Arnold Ellington RN * [place] Suicide Severity Rating Scale (Screener/Recent Self-Report) Question [...] documented as of this encounter Care Teams Inflatable Buildings Laminator Relationship Specialty Start Date End Date Solange Jacobs MD [address] [place] [address] PCP - General Internal Medicine 08/26/17 documented as of this encounter Additional Source Comments The information contained in this document represents components of the legal health record. It is not the complete legal health record.[facility]
--- OUTSIDE RECORDS SUMMARY | 2025-04-10 23:48 | XMS_ITS | Encounter Summary ---
Author Organization [facility] Address [address] [place] [address] Phone Care Team Providers Care Welding Foreman Name Role Phone Solange Jacobs MD Primary Care Provider [phone] Encounter Details Date Type Department Care Team (Late st Contact Info) Description 01/30/2023 Procedure Pass [facility], Ct Scan - [facility] [address] [place] [address] Social History Tobacco Use Types Packs/Day Years [...] documented as of this encounter Care Teams Welding Foreman Relationship Specialty Start Date End Date Reynaldo, Solange Jacobo MD [address] [place] [address] Drive [address] [place] [address] PCP - General Internal Medicine 08/26/17 documented as of this encounter Additional Source Comments The information contained in this document represents components of the legal health record. It is not the complete legal health record.[facility]
--- OUTSIDE RECORDS SUMMARY | 2025-04-10 23:48 | XMS_ITS | Encounter Summary ---
Author Organization [facility] Address [address] [place] [address] Phone Care Team Providers Care Surface Lay Out Technician Name Role Phone Solange Jacobs MD Primary Care Provider [phone] Encounter Details Date Type Department Care Team (Latest Contact Info) Description 05/12/2019 Transcribe Orders [facility] [address] [address] Solange Jacobs MD [address] [place] [address] Hypercalcemia (Primary Dx); Nonspecific abnormal [...] EST) TSH 10.10(H) 0.27 - 4.20 uIU/mL [facility] Blood 05/12/2019 10:2 1 AM EST 05/12/2019 10:42 AM EST us Solange Jacobs MD LAB BLOOD BKR ORDERABLES Elodia l Result Performing Organization Address [facility]/ZIP Co de Phone Number [address] [address] * T4, total (05/12/2019 10:21 AM EST) THYROXINE 5.6 4.6 - 12.0 ug/dL [facility] Blood 05/12/2019 10:2 1 AM EST 05/12/2019 10:42 AM EST us Solange Jacobs MD LAB BLOOD ORDERABLES Final Re sult Performing Organization Address [facility] Co de Phone Number [address] [address] * Calcium (05/12/2019 10:21 AM EST) CALCIUM 9.8 8.4 - 10.3 mg/dL [facility] Blood 05/12/2019 10:2 1 AM EST 05/12/2019 10:42 AM EST us Solange Jacobs MD LAB BLOOD BKR ORDERABLES Elodia l Result Performing Organization Address [facility] Co de Phone Number [address] [address] * (ABNORMAL) Parathyroid hormone (PTH) (05/12/2019 10:21 AM EST) PARATHYROID HORMONE 79(H) 15 - 65 pg/mL [facility] Blood 05/12/2019 10:2 1 AM EST 05/12/2019 10:43 AM EST us Solange Jacobs MD LAB BLOOD BKR ORDERABLES Elodia l Result [facility] [address] [place] [address] documented in this encounter Visit Diagnoses Diagnosis [...] documented as of this encounter Care Teams Surface Lay Out Technician Relationship Specialty Start Date End Date Solange Jacobs MD [address] [place] [phone] PCP - General Internal Medicine 08/26/17 documented as of this encounter Additional Source Comments The information contained in this document represents components of the legal health record. It is not the complete legal health record.[facility]
--- OUTSIDE RECORDS SUMMARY | 2025-04-10 23:48 | XMS_ITS | Encounter Summary ---
Author Organization [facility] Address [address] [place] [address] Phone Care Team Providers Care New Autos Delivery Driver Name Role Phone Solange Jacobs MD Primary Care Provider [phone] Encounter Details Date Type Department Care Team (Latest Contact Info) Description 03/22/2019 Transcribe Orders [address] [address] Solange Jacobs MD [address] [place] [address] Pure hypercholesterolemia (Primary Dx); Essential [...] (03/22/2019 9:36 AM EDT) HDL 46 mg/dL [facility] Comment: Interpretation <40 mg/dL: Low HDL cholesterol (major risk factor for CHD) Greater than or equal to 60 mg/dL: High HDL cholesterol ( negative risk factor for CHD) HDL - cholesterol is affected by a number of factors, e.g. smoking, excerise, hormones, sex and age. CHOLESTEROL 142 0 - 240 mg/dL [facility] TRIGLYCERIDES 261(H) 30 - 160 mg/dL [facility] LDL 44(L) 50 - 129 mg/dL [facility] Comment: LDL levels in terms of risk for coronary heart disease: <100 mg/dL: Optimal 100-129 mg/dL: Near or above optimal 130-159 mg/dL: Borderline high 160-189 mg/dL: High >190 mg/dL: Very High CARDIAC RISK RATIO 3.1(L) 3.3 - 4.4 C [facility] Blood 03/22/2019 9:36 AM EDT 03/22/2019 10:12 AM EDT us Solange Jacobs MD LAB BLOOD BKR ORDERABLES Elodia kraft Result [address] [address] * (ABNORMAL) Comprehensive metabolic panel (03/22/2019 9:36 AM EDT) SODIUM 140 133 - 146 mmol/L [facility] POTASSIUM 5.0 3.3 - 5.1 mmol/L [facility] CHLORIDE 102 96 - 108 mmol/L [facility] CO2 23 21 - 35 mmol/L [facility] BUN 13 6 - 19 mg/dL [facility] CREATININE 0.70 0.5 - 1.5 mg/dL [facility] GLUCOSE 139(H) 70 - 99 mg/dL [facility] ALBUMIN 4.5 3.9 - 4.8 g/dL [facility] TOTAL PROTEIN 7.7 6.5 - 8.0 g/dL [facility] CALCIUM 10.9(H) 8.4 - 10.3 mg/dL [facility] ALKALINE PHOSPHATASE 80 39 - 117 U/L [facility] TOTAL BILIRUBIN 0.7 0.0 - 1.2 mg/dL [facility] AST 38(H) 0 - 37 U/L [facility] ALT 20 0 - 40 U/L [facility] GLOBULIN 3.2 1 - 4.8 g/dL [facility] EGFR 81 >59 mL/min/1.7 3m2 [facility] Comment:If patient is black, multiply result by 1.159. Estimated glomerular filtration rate calculated using the CKD-EPI equation. ANION GAP 20 10 - 20 mmol/L [facility] Blood 03/22/2019 9:36 AM EDT 03/22/2019 10:12 AM EDT us Solange Jacobs MD LAB BLOOD BKR ORDERABLES Elodia l Result Performing Organization Address City/[facility]/ZIP Co de Phone Number [address] [address] * T4, total (03/22/2019 9:36 AM EDT) THYROXINE 5.9 4.6 - 12.0 ug/dL [facility] Blood 03/22/2019 9:36 AM EDT 03/22/2019 10:12 AM EDT us Solange Jacobs MD LAB BLOOD ORDERABLES Final Re sult Performing Organization Address [facility]/ZIP Co de Phone Number [address] [address] * Microalbumin/creatinine ratio, random urine (03/22/2019 9:36 AM EDT) URINE MICROALBUMIN <1.2 0 - 2.3 mg/dL [facility] URINE CREATININE 33 mg/dL [facility] MICROALB/CRE RATIO NOT CALCULATED 0 - 20 mg/g Cre [facility] Comment:due to Microalbumin <1.2 Urine (Urine) 03/22/2019 9:3 6 AM EDT 03/22/2019 10:12 AM EDT Solange Jacobs MD LAB URINE ORDERABLES Final Re sult Performing Organization Address City/[facility]/ZIP Co de Phone Number [address] [address] * (ABNORMAL) TSH (03/22/2019 9:36 AM EDT) TSH 5.64(H) 0.27 - 4.20 uIU/mL [facility] Blood 03/22/2019 9:36 AM EDT 03/22/2019 10:12 AM EDT Solange Jacobs MD LAB BLOOD BKR ORDERABLES Elodia l Result Performing Organization Address [facility] Co de Phone Number [address] [address] * (ABNORMAL) CBC and differential (03/22/2019 9:36 AM EDT) WBC 8.31 3.40 - 11.20 K/uL [facility] RBC 5.31(H) 3.80 - 4.80 M/uL [facility] HGB 16.8(H) 12.0 - 15.0 g/dL [facility] HCT 49.1(H) 36.0 - 46.0 % [facility] PLT 283 130 - 400 K/uL [facility] MCV 92.5 79.0 - 98.0 [facility] MCH 31.6 27.0 - 34.8 pg [facility] MCHC 34.2 31.5 - 36.0 g/dL [facility] RDW 12.8 10.8 - 14.6 % [facility] MPV 10.5 9.4 - 12.4 [facility] NRBC 0.00 0.00 /100 WBCs [facility] ABSOLUTE NRBC 0.00 0.00 K/uL [facility] DIFF METHOD Auto [facility] NEUTS 66.0 45.30 - 77.70 % [facility] LYMPHS 23.0 12.30 - 39.70 % [facility] MONOS 8.9 4.10 - 12.80 % [facility] EOS 1.3 0 - 7.2 % [facility] BASOS 0.6 0 - 2.80 % [facility] Granulocytes, immature (%) 0.2 0.0 - 0.9 % [facility] ABSOLUTE NEUTS 5.48 1.40 - 7.70 K/uL [facility] ABSOLUTE LYMPHS 1.91 0.60 - 3.20 K/uL [facility] ABSOLUTE MONOS 0.74(H) 0.11 - 0.59 K/uL [facility] ABSOLUTE EOS 0.11 0.01 - 0.50 K/uL [facility] ABSOLUTE BASOS 0.05 0.00 - 0.08 K/uL [facility] Granulocytes, immature 0.02 0.00 - 0.05 K/uL [facility] Blood 03/22/2019 9:36 AM EDT 03/22/2019 10:12 AM EDT us Solange Jacobs MD LAB BLOOD BKR ORDERABLES Elodia l Result [address] [address] * (ABNORMAL) Folate (03/22/2019 9:36 AM EDT) FOLIC ACID >20.0(H) 4.2 - 19.9 ng/mL [facility] Blood 03/22/2019 9:36 AM EDT 03/22/2019 10:12 AM EDT Solange Jacobs MD LAB BLOOD BKR ORDERABLES Elodia l Result [address] [address] * Vitamin B12 (03/22/2019 9:36 AM EDT) VITAMIN B12 1,041 232 - 1,245 pg/mL [facility] Blood 03/22/2019 9:36 AM EDT 03/22/2019 10:12 AM EDT us Solange Jacobs MD LAB BLOOD BKR ORDERABLES Elodia l Result Performing Organization Address City/[facility]/ZIP Co de Phone Number [address] [address] * 25-OH vitamin D (03/22/2019 9:36 AM EDT) 25 [place] VIT D (TOTAL) 42 30 - 60 ng/mL [facility] Blood 03/22/2019 9:36 AM EDT 03/22/2019 10:12 AM EDT us Solange Jacobs MD LAB BLOOD BKR ORDERABLES Elodia l Result Performing Organization Address [facility] Co de Phone Number [address] [address] documented in this encounter Visit Diagnoses Diagnosis [...] documented as of this encounter Care Teams New Autos Delivery Driver Relationship Specialty Start Date End Date Solange Jacobs MD [address] [place] [phone] PCP - General Internal Medicine 08/26/17 documented as of this encounter Additional Source Comments The information contained in this document represents components of the legal health record. It is not the complete legal health record.[facility]
--- OUTSIDE RECORDS SUMMARY | 2025-04-10 23:48 | XMS_ITS | Encounter Summary ---
Author Organization [facility] Address [address] [place] [address] Phone Care Team Providers Care Environmental Science Instructor Name Role Phone Solange Jacobs MD Primary Care Provider [phone] Encounter Details Date Type Department Care Team (Late st Contact Info) Description 01/31/2023 Procedure Pass [facility] Endoscopy Admitting Dept Virtual Department [address] [place] [address] Social History Tobacco Use Types Packs/Day Years [...] 5:21 PM EDT America Giles, JUAN * [place] Suicide Severity Rating Scale (Screener/Recent Self-Report) Question [...] as of this encounter Care Teams Environmental Science Instructor Relationship Specialty Start Date End Date Solange Jacobs MD [address] [place] [address] [place] [phone] PCP - General Internal Medicine 08/26/17 documented as of this encounter Additional Source Comments The information contained in this document represents components of the legal health record. It is not the complete legal health record.[facility]
--- OUTSIDE RECORDS SUMMARY | 2025-04-10 23:48 | XMS_ITS | Encounter Summary ---
Author Organization [facility] Address [address] [place] [address] Phone Care Team Providers Care Steam Turbine Assembler Name Role Phone Solange Jacobs MD Primary Care Provider [phone] Encounter Details Date Type Department Care Team (Latest Contact Info) Description 08/05/2019 Ancillary Orders Virtual Department [address] [place] [address] Bee Barnes MD [address] [place] [address] [email or web address] Social History Tobacco Use Types [...] documented as of this encounter Care Teams Steam Turbine Assembler Relationship Specialty Start Date End Date Solange Jacobs MD [address] [place] [address] PCP - General Internal Medicine 08/26/17 documented as of this encounter Additional Source Comments The information contained in this document represents components of the legal health record. It is not the complete legal health record.[facility]
--- OUTSIDE RECORDS SUMMARY | 2025-04-10 23:48 | XMS_ITS | Encounter Summary ---
Author Organization [facility] Address [address] [place] [address] Phone Care Team Providers Care Dust Collector Ore Crushing Name Role Phone Solange Jacobs MD Primary Care Provider [phone] Encounter Details Date Type Department Care Team (Late st Contact Info) Description 07/16/2019 Ancillary Orders [facility], X-Ray - [place] [address] [place] [address] Solange Jacobs MD [address] [place] [address] Pain Social History Tobacco Use [...] documented as of this encounter Care Teams Dust Collector Ore Crushing Relationship Specialty Start Date End Date Po, Solange Jacobo MD [address] [place] [address] [place] [phone] PCP - General Internal Medicine 08/26/17 documented as of this encounter Additional Source Comments The information contained in this document represents components of the legal health record. It is not the complete legal health record.[facility]
--- OUTSIDE RECORDS SUMMARY | 2025-04-10 23:48 | XMS_ITS | Encounter Summary ---
Author Organization [facility] Address [address] [place] [address] Phone Care Team Providers Care Interactive Producer Name Role Phone Solange Jacobs MD Primary Care Provider [phone] Encounter Details Date Type Department Care Team (Late st Contact Info) Description 08/02/2023 Procedure Pass [facility], Ct Scan - [facility] [address] [place] [address] Social History Tobacco Use Types Packs/Day Years [...] 08/02/2023 1:51 PM Sukumar Contreras RN * [place] Suicide Severity Rating Scale (Screener/Recent Self-Report) Question [...] on filedocumented in this encounter Care Teams Interactive Producer Relationship Specialty Start Date End Date Solange Jacobs MD [address] [place] [address] Drive [address] [place] [phone] PCP - General Internal Medicine 08/26/17 documented as of this encounter Additional Source Comments The information contained in this document represents components of the legal health record. It is not the complete legal health record.[facility]
--- OUTSIDE RECORDS SUMMARY | 2025-04-10 23:48 | XMS_ITS | Encounter Summary ---
Author Organization [facility] Address [address] [place] [address] Phone Care Team Providers Care Truer Pinion And Wheel Name Role Phone Solange Jacobs MD Primary Care Provider [phone] Encounter Details Date Type Department Care Team (Late st Contact Info) Description 08/05/2019 Ancillary Orders [facility], X-Ray - [address] [address] Bee Barnes MD [address] [place] [address] [email or web address] Social History Tobacco Use Types Packs/Day [...] documented as of this encounter Care Teams Truer Pinion And Wheel Relationship Specialty Start Date End Date Solange Jacobs MD [address] [place] [phone] PCP - General Internal Medicine 08/26/17 documented as of this encounter Additional Source Comments The information contained in this document represents components of the legal health record. It is not the complete legal health record.[facility]
--- OUTSIDE RECORDS SUMMARY | 2025-04-10 23:48 | XMS_ITS | Encounter Summary ---
Author Organization [facility] Address [address] [place] [address] Phone Care Team Providers Care Nutritionist Name Role Phone Solange Jacobs MD Primary Care Provider [phone] Encounter Details Date Type Department Care Team (Late st Contact Info) Description 03/14/2022 Procedure Pass [facility] Endoscopy Admitting Dept Virtual Department [address] [place] [address] Social History Tobacco Use Types Packs/Day Years [...] documented as of this encounter Care Teams Nutritionist Relationship Specialty Start Date End Date Solange Jacobs MD [address] [place] [phone] PCP - General Internal Medicine 08/26/17 documented as of this encounter Additional Source Comments The information contained in this document represents components of the legal health record. It is not the complete legal health record.[facility]
--- OUTSIDE RECORDS SUMMARY | 2025-04-10 23:48 | XMS_ITS | Encounter Summary ---
Author Organization [facility] Address [address] [place] [address] Phone Care Team Providers Care Department Chair Name Role Phone Solange Jacobs MD Primary Care Provider [phone] Encounter Details Date Type Department Care Team (Late st Contact Info) Description 03/14/2022 Procedure Pass [facility] Endoscopy Admitting Dept Virtual Department [address] [place] [address] Social History Tobacco Use Types Packs/Day Years [...] documented as of this encounter Care Teams Department Chair Relationship Specialty Start Date End Date Solange Jacobs MD [address] [place] [phone] PCP - General Internal Medicine 08/26/17 documented as of this encounter Additional Source Comments The information contained in this document represents components of the legal health record. It is not the complete legal health record.[facility]
--- OUTSIDE RECORDS SUMMARY | 2025-04-10 23:48 | XMS_ITS | Encounter Summary ---
Author Organization [facility] Address [address] [place] [address] Phone Care Team Providers Care Outsole Handler Name Role Phone Solange Jacobs MD Primary Care Provider [phone] Encounter Details Date Type Department Care Team (Late st Contact Info) Description 11/09/2024 Transcribe Orders [address] [address] Solange Jacobs MD [address] [place] [address] Social History Tobacco Use Types [...] on filedocumented in this encounter Care Teams Outsole Handler Relationship Specialty Start Date End Date Solange Jacobs MD [address] [place] [address] [place] [phone] PCP - General Internal Medicine 08/26/17 documented as of this encounter Additional Source Comments The information contained in this document represents components of the legal health record. It is not the complete legal health record.[facility]
--- OUTSIDE RECORDS SUMMARY | 2025-04-10 23:48 | XMS_ITS | Encounter Summary ---
Author Organization [facility] Address [address] [place] [address] Phone Care Team Providers Care Manager Brand Name Role Phone Solange Jacobs MD Primary Care Provider [phone] Encounter Details Date Type Department Care Team (Late st Contact Info) Description 05/24/2021 Procedure Pass [facility], [address] [address] Social History Tobacco Use Types Packs/Day Years [...] 05/24/2021 12:34 PM Joan Alan RN * [place] Suicide Severity Rating Scale (Screener/Recent Self-Report) Question [...] documented as of this encounter Care Teams Manager Brand Relationship Specialty Start Date End Date Solange Jacobs MD [address] [place] [address] PCP - General Internal Medicine 08/26/17 documented as of this encounter Additional Source Comments The information contained in this document represents components of the legal health record. It is not the complete legal health record.[facility]
--- OUTSIDE RECORDS SUMMARY | 2025-04-10 23:48 | XMS_ITS | Clinical Summary ---
Author Organization [facility] Address [address] [place] [address] Phone Care Team Providers Care Train Brake Operator Name Role Phone Solange Jacobs MD Primary Care Provider [phone] Allergies Active Allergy Reactions Criticality Noted Date [...] Active ferrous sulfate 325 mg (65 mg [place] iron) tablet TAKE 1 TABLET BY MOUTH [...] above studies are resulted - PT/OT evaluations -DIRECTOR TALENT ACQUISITION evaluation, patient has passed a bedside nursing [...] Type Department Care Team Description 03/30/2025 Telephone [facility] Infectious Diseases [address] [place] [address] Gildardo Conde MD STAT ID Referral (STAT ID Referral) 03/30/2025 Transcribe Orders [facility] Infectious Diseases [address] [place] [address] Gildardo Conde MD Blister of face, neck, and scalp except eye, infected, initial encounter (Primary Dx) 02/23/2025 Orders Only [facility] [address] [place] [address] Homehealth, Interface ProviderMD from Last [...] on patient's age to complete this topic IPV VACCINES Aged Out No longer eligi ble [...] EDT) SODIUM 137 133 - 146 mmol/L [facility] POTASSIUM 3.8 3.3 - 5.1 mmol/L [facility] CHLORIDE 100 96 - 108 mmol/L [facility] CO2 26 21 - 35 mmol/L [facility] BUN 14 6 - 19 mg/dL [facility] CREATININE 0.90 0.5 - 1.5 mg/dL [facility] GLUCOSE 177(H) 70 - 99 mg/dL [facility] ALBUMIN 3.8(L) 3.9 - 4.8 g/dL [facility] TOTAL PROTEIN 7.2 6.5 - 8.0 g/dL [facility] CALCIUM 9.7 8.4 - 10.3 mg/dL [facility] ALKALINE PHOSPHATASE 138(H) 39 - 117 U/L [facility] TOTAL BILIRUBIN 0.9 0.0 - 1.2 mg/dL [facility] AST 21 0 - 37 U/L [facility] ALT 13 0 - 40 U/L [facility] GLOBULIN 3.4 1 - 4.8 g/dL [facility] EGFR 62 >59 mL/min/1.7 3m2 [facility] Comment:Estimated glomerular filtration rate calculated using the CKD-EPI refit equation. ANION GAP 15 10 - 20 mmol/L [facility] Blood 11/09/2024 9:36 AM EDT 11/09/2024 9:45 AM EDT Solange Jacobs MD LAB BLOOD BKR ORDERABLES Elodia l Result [facility] [address] [place] [address] * (ABNORMAL) Hemoglobin A1c (11/09/2024 9:36 AM EDT) HEMOGLOBIN A1C 7.8(H) 4.3 - 5.8 % [facility] Blood 11/09/2024 9:36 AM EDT 11/09/2024 9:45 AM EDT Solange Jacobs MD LAB BLOOD BKR ORDERABLES Elodia l Result [address] [address] from Last 3 Months or Most Recently Relevant to Health Maintenance Insurance MEDICARE PART A & B [facility] [place] [address] MEDICARE PART A & [place] [address] [address] [place] [address] MEDICARE PART A & [place] [address] MEDICARE PART A & B [facility] [place] [address] MEDICARE PART A & B [facility] [place] [address] MEDICARE PART A & B [facility] [place] [address] MEDICARE PART A & [place] [address] MEDICARE PART A & B Member Subscriber Plan / Payer ( fective 2002-) Name:Zuleyma Gutierrez Member ID:[id number] Relation to Subscriber:Self Name:Zuleyma Gutierrez Subscriber ID:[id number] Payer ID:[id number] Group ID:Not on file Type:Medicare Address: [employer] [address] [place] [phone] [place] [address] MEDICARE PART A & B [facility] [place] [address] Advance Directives For more information, please contact: [phone] (9AM - 5PM [facility], Friday-Friday) Documents on File Type Date Recorded Patient Policy Writer Typist Expl anation Healthcare Proxy 08/28/2017 1:28 PM [...] Care Agent (Proxy form on file) Yen Linclon Daughter Alternate Health care Agent (Proxy form on file) Care Teams Train Brake Operator Relationship Specialty Start Date End Date Solange Jacobs MD [address] [place] [address] PCP - General Internal Medicine 08/26/17 Additional Source Comments The information contained in this document represents components of the legal health record. It is not the complete legal health record.[facility]
--- OUTSIDE RECORDS SUMMARY | 2025-04-10 23:48 | XMS_ITS | Encounter Summary ---
Author Organization [facility] Address [address] [place] [address] Phone Care Team Providers Care Promotions Assistant Sales Marketing Name Role Phone Solange Jacobs MD Primary Care Provider [phone] Encounter Details Date Type Department Care Team (Late st Contact Info) Description 04/23/2020 Procedure Pass [facility], Ct Scan - [facility] [address] [place] [address] Social History Tobacco Use Types Packs/Day Years [...] documented as of this encounter Care Teams Promotions Assistant Sales Marketing Relationship Specialty Start Date End Date Solange Jacobs MD [address] [place] [phone] PCP - General Internal Medicine 08/26/17 documented as of this encounter Additional Source Comments The information contained in this document represents components of the legal health record. It is not the complete legal health record.[facility]
--- OUTSIDE RECORDS SUMMARY | 2025-04-10 23:48 | XMS_ITS | Encounter Summary ---
Author Organization [facility] Address [address] [place] [address] Phone Care Team Providers Care Commutator V Ring Assembler Name Role Phone Solange Jacobs MD Primary Care Provider [phone] Encounter Details Date Type Department Care Team (Late st Contact Info) Description 03/22/2024 Procedure Pass [facility] [address] [place] [address] Social History Tobacco Use Types Packs/Day Years [...] on filedocumented in this encounter Care Teams Commutator V Ring Assembler Relationship Specialty Start Date End Date Solange Jacobs MD [address] [place] [address] [place] [phone] PCP - General Internal Medicine 08/26/17 documented as of this encounter Additional Source Comments The information contained in this document represents components of the legal health record. It is not the complete legal health record.[facility]
--- OUTSIDE RECORDS SUMMARY | 2025-04-10 23:48 | XMS_ITS | Encounter Summary ---
Author Organization [facility] Address [address] [place] [id number] Phone Care Team Providers Care Maintenance Parts Technician Name Role Phone Solange Jacobs MD Primary Care Provider [phone] Encounter Details Date Type Department Care Team (Latest Contact Info) Description 07/16/2019 Transcribe Orders Virtual Department [address] [place] [address] Eu, Delia Loja MD [address] [place] [address] Primary localized osteoarthritis of pelvic region and [...] as of this encounter Care Teams Maintenance Parts Technician Relationship Specialty Start Date End Date Reynaldo, Solange Jacobo MD [address] [place] [address] [place] [phone] PCP - General Internal Medicine 08/26/17 documented as of this encounter Additional Source Comments The information contained in this document represents components of the legal health record. It is not the complete legal health record.[facility]
--- OUTSIDE RECORDS SUMMARY | 2025-04-10 23:48 | XMS_ITS | Encounter Summary ---
Author Organization [facility] Address [address] [place] [address] Phone Care Team Providers Care Employee Wellness/Fitness Coordinator Name Role Phone Solange Jacobs MD Primary Care Provider [phone] Encounter Details Date Type Department Care Team (Late st Contact Info) Description 05/24/2021 Procedure Pass [facility], Ct Scan - [facility] [address] [place] [address] Social History Tobacco Use Types Packs/Day Years [...] 05/24/2021 12:34 PM Joan Alan RN * [place] Suicide Severity Rating Scale (Screener/Recent Self-Report) Question [...] as of this encounter Care Teams Employee Wellness/Fitness Coordinator Relationship Specialty Start Date End Date Solange Jacobs MD [address] [place] [id number] PCP - General Internal Medicine 08/26/17 documented as of this encounter Additional Source Comments The information contained in this document represents components of the legal health record. It is not the complete legal health record.[facility]
--- OUTSIDE RECORDS SUMMARY | 2025-04-10 23:48 | XMS_ITS | Encounter Summary ---
Author Organization [facility] Address [address] [place] [phone] Phone Care Team Providers Care Clinical Athletic Instructor Name Role Phone Solange Jacobs MD Primary Care Provider [phone] Reason for Referral * MRI/CAT Scan - Closed Specialty Diagnoses / Procedures Referred By Contac t Referred To Contact Radiology Diagnoses Pancreatic cyst Procedures MRI Cholangiopancreatography (MRCP) Oumou Moser PA [address] [place] [address] Phone: tel: fax: Referral ID Status Reason Start Date Expiration Date Visits Re quested Visits Authorized [id number] Closed 03/22/2024 03/22/2025 1 1 Encounter Details Date Type Department Care Team (Latest Contact Info) Description 03/22/2024 Transcribe Orders Virtual Department [address] [place] [address] Oumou Moser PA [address] [place] [address] Pancreatic cyst (Primary Dx) Social History Tobacco [...] clinician's provided indication for this examination in [facility]: Outside Radiology Order; pancreatic cyst TECHNIQUE: [...] clinician's provided indication for this examination in [facility]:Outside Radiology Order; pancreatic cyst TECHNIQUE: Multiplanar [...] pancreas documented in this encounter Care Teams Clinical Athletic Instructor Relationship Specialty Start Date End Date Po, Solange Jacobo MD [address] [place] [address] Drive [address] [place] [address] PCP - General Internal Medicine 08/26/17 documented as of this encounter Additional Source Comments The information contained in this document represents components of the legal health record. It is not the complete legal health record.[facility]
[2025-04-11] VITALS (8 sets, daily range): BP systolic 91–130; BP diastolic 45–64; PULSE 72–88; RESP 15–18; TEMP 36.4–36.7; O2SAT 95–100
[2025-04-11] MEDS: diazePAM 10 MG/2 ML CARTRIDGE 2.5 MG IVPUSH
[2025-04-11 00:36] LABS: Reflex Lactate? Lactic Acid Added
[2025-04-11] MEDS: Lactated Ringers 1,000 ML 999 ML IV (00:37)
[2025-04-11 01:17] LABS: Appearance Urine Turbid; Glucose Urine UA >=1000 mg/dL (Negative); PH 7.5 (5.0-9.0); Specific Gravity - Urine <= 1.005 (1.005-1.025); UMIC TRIGGER UACC YES
[2025-04-11] MEDS: iohexoL 350 MG/ML 100 ML INFUS..BTL 85 ML IV (01:21)
[2025-04-11 01:22] LABS: UACC Culture Trigger YES
[2025-04-11 01:27] LABS: ~Lactic Acid-LAB USE ONLY 2.7 mmol/L (0.5-2.0)
[2025-04-11 03:09] LABS: Reflex Lactate? 2 Y
--- NOTE | 2025-04-11 03:30 | PC.NURSE ---
pt has not yet provided stool sample.
--- NOTE | 2025-04-11 03:52 | PC.NURSE ---
pt medicated per MAR.
--- NOTE | 2025-04-11 04:20 | PM.IMHP ---
History of Present Illness Date of Service: 04/11/25 Chief Complaint: Epigastric pain 89-year-old female with a past medical history of AFib on digoxin, Eliquis, history, HLD, diabetes, COPD, aortic stenosis, TIA, recent admission to the hospital for acute pancreatitis; presented to the hospital today with a chief complaint of nausea vomiting and epigastric pain for the past few days. Reports having diarrhea. Denies being on any antibiotics recently. Patient denied any chest pain or palpitations. Denies any fevers. Denies any dysuria. Review of all other systems is negative except mentioned above ER course: Per ER team, patient has mild epigastric tenderness; CT abdomen pelvis showed pancreatic lesion-with surrounding inflammation; concerning for acute on chronic pancreatitis. Urinalysis abnormal consistent with UTI. Given antibiotics. [facility] Medical History Contusion of second toe of left foot Diarrhea Constipation Weakness Dizziness and giddiness Weakness Yeast infection of the skin Exercise hypoxemia Acute respiratory failure with hypoxia Lipoma of lower back Urinary incontinence Cystitis Acute urinary retention Acute diverticulitis of intestine Generalized abdominal pain Diverticular disease Nausea & vomiting Failure to thrive in adult TSH elevation CHF (congestive heart failure) Atrial fibrillation with RVR Atrial fibrillation with RVR Type 2 diabetes mellitus with hyperglycemia Diabetes mellitus Asthma Hypokalemia Hypomagnesemia Hearing difficulty Dyspnea on exertion History of gastrointestinal diverticular hemorrhage COVID-19 virus infection Rectal bleeding Medicare annual wellness visit, initial Hip pain, left Patellar sleeve fracture of right knee Knee pain, right Nausea and vomiting Coarse tremors Shoulder pain, right Hospital discharge follow-up Mass on back Tinea corporis Nausea Right wrist pain Left knee pain Left hip pain Toe pain, left Breast cancer screening by mammogram UTI (urinary tract infection) Obesity (BMI 30-39.9) Urinary frequency Toe fracture, left Pancreatic cyst Osteoporosis Peptic ulcer disease Urinary incontinence Rectal incontinence GERD (gastroesophageal reflux disease) Bile salt-induced diarrhea Vaginal prolapse Renal artery stenosis Asthma Lumbar degenerative disc disease Insomnia TIA (transient ischemic attack) Hyperlipidemia, unspecified Essential hypertension Family History Father Cancer Arterial thrombosis Mother Multiple sclerosis Muscular dystrophy Hypertension Depression Chronic mental illness Mental health disorder Brother No problems noted. Brother Gangrene Sister No problems noted. Son No problems noted. Son No problems noted. Son No problems noted. Son No problems noted. Daughter No problems noted. Daughter No problems noted. Daughter No problems noted. Surgical History Hx of colonoscopy History of esophagogastroduodenoscopy (EGD) History of removal of cyst (~10/17/21) History of hemorrhoidectomy History of colectomy History of section History of hysterectomy History of appendectomy History of cholecystectomy Social History Household Members: None Housing: Apartment Do you presently have visiting nurse or other home services: Yes (Suzanne BUITRAGO) Alcohol intake: former Comment: 1:1 sitter. Patient Tobacco Use Status: Former Tobacco user Tobacco use type: Cigarette Years Smoked: 22 e-Cigarette/Vaping Use: Former Use Second Hand Smoke Exposure: Yes Advance Directives: Yes Advance Directives on File: Yes Advance Directives Date on File: 08/11/23 Nutrition Risks: No Nutritional Risk service: No Current occupational status: disabled Current occupational exposures/hazards: No Cognitive needs: Yes (walker) Hearing needs: Yes Vision needs: Yes (Glasses) Meds Allergies Allergy/AdvReac Type Severity Reaction Status Date / Time ciprofloxacin Allergy Severe unknown Verified 04/10/25 22:05 aspirin (Aspirin) Allergy Unknown UNKNOWN Verified 04/10/25 22:05 cefuroxime Allergy Unknown Unknown Verified 04/10/25 22:05 celecoxib (From Celebrex) Allergy Unknown UNKNOWN Verified 04/10/25 22:05 metformin Allergy Unknown diarrhea Verified 04/10/25 22:05 risedronate sodium (From Allergy Unknown UNKNOWN Verified 04/10/25 22:05 Actonel) Sulfa (Sulfonamide Allergy Unknown unknown Verified 04/10/25 22:05 Antibiotics) bupropion AdvReac Intermediate tremor Verified 04/10/25 22:05 ferrous sulfate AdvReac Intermediate tremors Verified 04/10/25 22:05 sertraline AdvReac Intermediate tremors Verified 04/10/25 22:05 Active Medications: Current Medications Acetaminophen (Acetaminophen 325 Mg Tablet) 650 mg PO Q6H PRN PRN Reason: Pain, Mild 1-3,fever,headache Apixaban (Apixaban 2.5 Mg Tablet) 2.5 mg PO BID JAREK Calcium Carbonate (Calcium Carbonate 750 Mg Tab.Chew) 750 mg PO Q4H PRN PRN Reason: Heartburn Piperacillin Sod/Tazobactam (Sod 3.375 gm/ Sodium Chloride) 50 mls @ 100 mls/hr IV Q6H [facility] Last Admin: 04/11/25 03:50 Dose: 100 mls/hr Magnesium Hydroxide (Milk Of Magnesia 30 Ml Oral.Susp) 30 ml PO DAILY PRN PRN Reason: Constipation Melatonin (Melatonin 3 Mg Tablet) 6 mg PO BEDTIME PRN PRN Reason: Insomnia Sodium Chloride (0.9 % Sodium Chloride Flush 3 Ml Syringe) 3 ml IVFLUSH QSHIFT [facility] Home Medications ?Medication ?Instructions ?Recorded ?Confirmed ?Last Taken ?Type metoprolol succinate 50 mg 50 mg PO DAILY 08/01/24 03/31/25 Unknown History tablet,extended release 24 hr albuterol sulfate 90 mcg/actuation 1 inh inhalation QID PRN Shortness 02/21/25 03/31/25 Unknown History aerosol inhaler Of Breath Or Wheezing digoxin 125 mcg (0.125 mg) tablet 125 mcg PO MOWEFR 02/21/25 03/31/25 Unknown History empagliflozin 25 mg tablet 25 mg PO DAILY 02/21/25 03/31/25 Unknown History meclizine 12.5 mg tablet 12.5 mg PO TID PRN Vertigo 02/21/25 03/31/25 Unknown History tramadol 50 mg tablet 50 mg PO BID PRN pain 02/21/25 03/31/25 Unknown History diclofenac sodium 1 % topical gel 1 ea topical QID PRN Pain 03/25/25 03/31/25 Unknown History nystatin 100,000 unit/gram topical 1 appl topical DAILY 03/25/25 03/31/25 Unknown History powder sitagliptin 25 mg tablet 25 mg PO DAILY 03/25/25 03/31/25 Unknown History duloxetine 30 mg capsule,delayed 30 mg PO BEDTIME 04/06/25 Unknown History release lisinopril 10 mg tablet 10 mg PO DAILY 04/06/25 Unknown History Physical Exam Vital Signs and Narrative: Vital Signs: Last Vital Signs Temp 97.7 F 04/11/25 02:05 Pulse 88 04/11/25 00:31 Resp 18 04/11/25 00:31 BP 118/54 L 04/11/25 02:05 Pulse Ox 100 04/11/25 00:31 O2 Del Method Nasal Cannula 04/11/25 00:31 O2 Flow Rate 2 04/11/25 00:31 BMI result Body Mass Index 24.0 Gen: Appears be in no acute distress HEENT: NCAT, Moist mucosa. Pulmonary: Vesicular breath sounds, fair air entry CVS: Normal S1-S2 Abdomen: BS+, Soft, mildly tender diffusely Extremities: Warm well perfused Neuro: Alert and awake. Results Labs 04/10/25 22:32 04/10/25 22:32 Labs: Laboratory Results - last 24 hr 04/10/25 04/10/25 04/11/25 22:31 22:32 00:49 MCV 75.5 L MCH 22.9 L MCHC 30.3 L RDW 18.8 H Plt Count 305 MPV 10.5 Immature Gran % (Auto) 0.4 Neut % (Auto) 70.5 Lymph % (Auto) 11.5 L [place] % (Auto) 15.9 H Eos % (Auto) 1.4 Baso % (Auto) 0.3 Lymph # (Auto) 1.3 [place] # (Auto) 1.8 H Eos # (Auto) 0.2 Baso # (Auto) 0.0 Abs Immat Gran (auto) 0.05 H Absolute Neuts (auto) 7.8 Absolute Nucleated RBC 0.000 Nucleated RBC % (auto) 0.0 Smear Tech's Comments VERIFIED Anion Gap 18 Estim Creat Clear Calc 27.6 Estimated GFR 46 Random Glucose 145 H Lactic Acid 3.6 H* Lactic Acid F/U @ 2Hr 2.7 H* Calcium 9.3 Magnesium 1.9 Total Bilirubin 1.2 H AST 29 ALT < 6 Alkaline Phosphatase 88 Troponin I High Sens 6.2 Total Protein 6.2 L Albumin 3.3 L Lipase 48 Urine Color Urine Appearance Urine pH Ur Specific [place] Urine Protein Urine Glucose (UA) Urine Ketones Urine Blood Urine Nitrite Ur Leukocyte Esterase Urine RBC Urine WBC Ur Squamous Epith Cells Urine Bacteria Hyaline Casts Digoxin < 0.2 L 04/11/25 01:12 MCV MCH MCHC RDW Plt Count MPV Immature Gran % (Auto) Neut % (Auto) Lymph % (Auto) [place] % (Auto) Eos % (Auto) Baso % (Auto) Lymph # (Auto) [place] # (Auto) Eos # (Auto) Baso # (Auto) Abs Immat Gran (auto) Absolute Neuts (auto) Absolute Nucleated RBC Nucleated RBC % (auto) Smear Tech's Comments Anion Gap Estim Creat Clear Calc Estimated GFR Random Glucose Lactic Acid Lactic Acid F/U @ 2Hr Calcium Magnesium Total Bilirubin AST ALT Alkaline Phosphatase Troponin I High Sens Total Protein Albumin Lipase Urine Color Yellow Urine Appearance Turbid Urine pH 7.5 Ur Specific [place] <= 1.005 Urine Protein Negative Urine Glucose (UA) >=1000 H Urine Ketones Negative Urine Blood Moderate (2+) H Urine Nitrite Negative Ur Leukocyte Esterase Moderate (2+) H Urine RBC >20 H Urine WBC >50 H Ur Squamous Epith Cells 11-20 Urine Bacteria 4+ Hyaline Casts 6-10 Digoxin Assessment and Plan (1) Pancreatitis: Qualifiers: Chronicity: acute Pancreatitis type: unspecified pancreatitis type Acute pancreatitis complication: unspecified Qualified Code(s): K85.90 - Acute pancreatitis without necrosis or infection, unspecified Status: Acute Plan 89-year-old female with a past medical history of AFib on digoxin, Eliquis, history, HLD, diabetes, COPD, aortic stenosis, TIA, recent admission to the hospital for acute pancreatitis; presented to the hospital today with a chief complaint of nausea vomiting and epigastric pain. 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 Follow up cultures. Lactic acidosis: Improving AFib: Patient on Eliquis Med reconciliation: Resume patient's home medications once med rec is completed in a.m.. DVT prophylaxis: Patient on Eliquis Code status: Full code Quality Stroke Does the patient have a stroke diagnosis?: No VTE Prior VTE?: No VTE Risk Level:: Medical - moderate - high VTE Device Contraindication: Treatment Not Indicated VTE Drug Contraindication: N/A - Med Ordered
--- NOTE | 2025-04-11 04:24 | PC.NURSE ---
pt reports heartburn pain, requesting medication. Provider advised, awaiting new orders.
--- NOTE | 2025-04-11 04:35 | PC.NURSE ---
pt medicated per MAR
[2025-04-11 04:37] LABS: ~Lactic Acid-LAB USE ONLY 1.3 mmol/L (0.5-2.0)
[2025-04-11 05:16] LABS: Hematocrit 27.3 % (37.0-47.0); Hemoglobin 8.1 g/dl (12.0-16.0); Imm Gran Abs Auto 0.03 X10*3/uL (0.00-0.03); Imm Gran Pct Auto 0.3 % (0.0-0.4); Lymphocytes Absolute Auto 1.2 X10*3/uL (1.2-4.9); MANUAL DIFF FLAG SCAN; Mean Corpuscular HGB Conc 29.7 g/dl (31.0-35.0); Mean Corpuscular Hemoglobin 22.4 pg (27.0-33.0); Mean Corpuscular Volume 75.6 fL (80.0-98.0); NRBC Abs Auto 0.000 X10*3/uL (0.0-0.012); NRBC Pct Auto 0.0 /100WBC (0.0-0.2); Platelet Count 272 X10*3/uL (160-400); Red Blood Count 3.61 X10*6/uL (4.20-5.50); SCAN SMEAR FLAG 1; White Blood Count 9.8 X10*3/uL (4.8-10.8)
[2025-04-11 05:25] LABS: Alanine Aminotransferase < 6 U/L (0-31); Albumin Level 2.5 g/dL (3.5-5.0); Alkaline Phosphatase 72 U/L (39-117); Anion Gap 10 (12-20); Aspartate Amino Transferase 17 U/L (5-31); Blood Urea Nitrogen 10 mg/dL (9-16); Calcium 8.3 mg/dL (8.4-10.2); Carbon Dioxide 28 mmol/L (22-29); Chloride 103 mmol/L (96-108); Creatinine Clr Calc Pharmacy 30.4; Estimated Glomerular Filt Rate 52; Potassium 3.2 mmol/L (3.3-5.1); Sodium 138 mmol/L (135-145); Total Protein 4.9 g/dL (6.5-8.0)
--- NOTE | 2025-04-11 06:21 | PC.NURSE ---
pt states she has pain in her bottom ad would like something stronger than Tylenol. Provider advised, awaiting new orders.
--- NOTE | 2025-04-11 06:44 | PC.NURSE ---
unable to scan barcode as I threw out the wrapper when i wasted half the 50 mg tab.
--- NOTE | 2025-04-11 07:30 | P.CNGI_ITS ---
History of Present Illness Data of Consult Service Date: 04/11/25 Requesting physician: Danny Ramirez Primary Care Provider: Solange Jacobs MD HPI Reason for consult: Pancreatic cystic lesions; question cystic neoplasm; pancreatitis 89 YF with AFib on digoxin, Eliquis, history, HLD, diabetes, COPD, aortic stenosis, TIA, recent admission to the hospital for acute pancreatitis; seen at [facility] [place] ED on 04/10/25 with nausea vomiting and epigastric pain for the past few days. Pt reported having diarrhea. Denies being on any antibiotics recently. Patient denied any chest pain or palpitations, fevers or dysuria. 04/11/[address] SCAN SHOWED: 1. 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 The lesion has mildly increased in size from the recent CT and now has a thin rim of enhancement and mild surrounding fat stranding consistent with infection/inflammation. 2. Additional chronic findings as above. Review of Systems 2 Review of Systems: Yes all other systems are reviewed and are negative [facility] Past Medical History Medical History (Updated 04/12/25 @ 07:20 by Chantel Rucker RN) Diverticulitis Contusion of second toe of left foot Dizziness and giddiness Yeast infection of the skin Generalized abdominal pain Cystitis Weakness Atrial fibrillation with RVR Acute urinary retention Acute diverticulitis of intestine Atrial fibrillation with RVR Acute respiratory failure with hypoxia CHF (congestive heart failure) Asthma Exercise hypoxemia Weakness Nausea & vomiting Hypokalemia Hypomagnesemia Diarrhea Hearing difficulty Diverticular disease Diabetes mellitus Dyspnea on exertion History of gastrointestinal diverticular hemorrhage COVID-19 virus infection Rectal bleeding Medicare annual wellness visit, initial Hip pain, left Patellar sleeve fracture of right knee Lipoma of lower back Knee pain, right Nausea and vomiting Coarse tremors Shoulder pain, right Hospital discharge follow-up Failure to thrive in adult Mass on back Constipation Tinea corporis Nausea Right wrist pain Left knee pain Left hip pain Toe pain, left Breast cancer screening by mammogram TSH elevation Urinary frequency UTI (urinary tract infection) Urinary incontinence Type 2 diabetes mellitus with hyperglycemia Toe fracture, left Pancreatic cyst Osteoporosis Peptic ulcer disease Urinary incontinence Rectal incontinence GERD (gastroesophageal reflux disease) Obesity (BMI 30-39.9) Bile salt-induced diarrhea Vaginal prolapse Renal artery stenosis Asthma Lumbar degenerative disc disease Insomnia TIA (transient ischemic attack) Hyperlipidemia, unspecified Essential hypertension Family History Family History Father Cancer Arterial thrombosis Mother Multiple sclerosis Muscular dystrophy Hypertension Depression Chronic mental illness Mental health disorder Brother No problems noted. Brother Gangrene Sister No problems noted. Son No problems noted. Son No problems noted. Son No problems noted. Son No problems noted. Daughter No problems noted. Daughter No problems noted. Daughter No problems noted. Surgical History Surgical History Hx of colonoscopy History of esophagogastroduodenoscopy (EGD) History of removal of cyst (~10/17/21) History of hemorrhoidectomy History of colectomy History of section History of hysterectomy History of appendectomy History of cholecystectomy Social History Social History Household Members: None Housing: Apartment Do you presently have visiting nurse or other home services: Yes Alcohol intake: former Comment: 1:1 sitter. Patient Tobacco Use Status: Former Tobacco user Tobacco use type: Cigarette Years Smoked: 22 Smoked in Last 30 Days: No e-Cigarette/Vaping Use: Former Use Second Hand Smoke Exposure: Yes Advance Directives: Yes Advance Directives on File: Yes Advance Directives Date on File: 08/11/23 Do you have a plan to hurt others: No Plan Recently lost weight without trying: No Eating poorly because of decreased appetite: No Nutrition Risks: No Nutritional Risk Patient : No : No Poor oral hygiene: Yes service: No Current occupational status: disabled Current occupational exposures/hazards: No Cognitive needs: Yes (walker) Hearing needs: Yes Vision needs: Yes (Glasses) Meds Allergies Allergy/AdvReac Type Severity Reaction Status Date / Time ciprofloxacin Allergy Severe unknown Verified 04/10/25 22:05 aspirin (Aspirin) Allergy Unknown UNKNOWN Verified 04/10/25 22:05 cefuroxime Allergy Unknown Unknown Verified 04/10/25 22:05 celecoxib (From Celebrex) Allergy Unknown UNKNOWN Verified 04/10/25 22:05 metformin Allergy Unknown diarrhea Verified 04/10/25 22:05 risedronate sodium (From Allergy Unknown UNKNOWN Verified 04/10/25 22:05 Actonel) Sulfa (Sulfonamide Allergy Unknown unknown Verified 04/10/25 22:05 Antibiotics) bupropion AdvReac Intermediate tremor Verified 04/10/25 22:05 ferrous sulfate AdvReac Intermediate tremors Verified 04/10/25 22:05 sertraline AdvReac Intermediate tremors Verified 04/10/25 22:05 Active Medications: Current Medications Acetaminophen (Acetaminophen 325 Mg Tablet) 650 mg PO Q6H PRN PRN Reason: Pain, Mild 1-3,fever,headache Apixaban (Apixaban 2.5 Mg Tablet) 2.5 mg PO BID [facility] Calcium Carbonate (Calcium Carbonate 750 Mg Tab.Chew) 750 mg PO Q4H PRN PRN Reason: Heartburn Last Admin: 04/11/25 04:33 Dose: 750 mg Calcium Carbonate (Calcium Carbonate 750 Mg Tab.Chew) 750 mg PO Q6H PRN PRN Reason: Heartburn Piperacillin Sod/Tazobactam (Sod 3.375 gm/ Sodium Chloride) 50 mls @ 100 mls/hr IV Q6H [facility] Last Infusion: 04/11/25 04:22 Dose: Infused Magnesium Hydroxide (Milk Of Magnesia 30 Ml Oral.Susp) 30 ml PO DAILY PRN PRN Reason: Constipation Melatonin (Melatonin 3 Mg Tablet) 6 mg PO BEDTIME PRN PRN Reason: Insomnia Sodium Chloride (0.9 % Sodium Chloride Flush 3 Ml Syringe) 3 ml IVFLUSH QSHIFT [facility] Home Medications ?Medication ?Instructions ?Recorded ?Confirmed ?Last Taken ?Type metoprolol succinate 50 mg 50 mg PO DAILY 08/01/2403/2604/10/25 History tablet,extended release 24 hr albuterol sulfate 90 mcg/actuation 1 inh inhalation QI D PRN Shortness 02/21/25 04/11/25 Unknown History aerosol inhaler Of Breath Or Wheezing digoxin 125 mcg (0.125 mg) tablet 125 mcg PO MOWEFR 04/11/25 04/08/25 History empagliflozin 25 mg tablet 25 mg PO DAILY 02/21/2503/2604/10/25 History meclizine 12.5 mg tablet 12.5 mg PO TID PRN Vertigo 0 02/21/25 04/11/25 Unknown History tramadol 50 mg tablet 50 mg PO BID PRN pain 04/11/25 Unknown History diclofenac sodium 1 % topical gel 1 ea topical QID PRN Pain 03/25/25 04/11/25 Unknown History nystatin 100,000 unit/gram topical 1 appl topical MONIKA Y 03/25/25 04/11/25 04/10/25 History powder sitagliptin 25 mg tablet 25 mg PO DAILY 03/25/2504/0204/10/25 History Physical Exam 2 Vital Signs: Vital Signs: Last Vital Signs Temp 97.8 F 04/11/25 05:29 Pulse 78 04/11/25 05:29 Resp 18 04/11/25 05:29 BP 130/61 04/11/25 05:29 Pulse Ox 96 04/11/25 05:29 O2 Del Method Room Air 04/11/25 05:29 O2 Flow Rate 2 04/11/25 00:31 BMI result Body Mass Index 24.0 Const: General: in distress (due to nausea and vomiting) and ill appearing Nutritional Appearance: average body habitus and other (frail appearing) O rientation/consciousness: patient oriented x3 Limitations: ambulation with walker HEENT: Head: Yes normal to inspection Ears: hearing grossly normal bilaterally Mouth: Normal oral and palatal mucosa present Eyes: Sclerae: sclerae normal Pupils: Equal, round and reactive pupils present Neck: Neck: Yes normal visual inspection Chest: Chest palpation & inspection: normal inspection of the chest Resp: Effort & Inspection: normal respiratory effort Auscultation: clear to auscultation bilaterally Cardio: Palpation: normal PMI Rate: regular rate Rhythm: regular rhythm Heart sounds: S1 normal heart sound present, S2 normal heart sound present and no murmurs GI: Palpation (GI): Soft to palpation, nontender and No hepatosplenomegaly present Auscultation: normal bowel sounds Rectal Exam - Female: deferred Skin: General skin exam: no rashes or lesions noted Neuro: General: patient oriented x3, gait normal and moves all extremities Cranial nerves: Yes Equal, round and reactive pupils present Psych: Appearance: grossly normal Mental Status: mental status grossly normal Results Labs 04/11/25 04:16 04/11/25 04:15 Labs: Short CBC 04/10/25 04/11/25 Range/Units 22:32 04:16 WBC 11.1 H 9.8 (4.8-10.8) X10*3/uL Hgb 8.8 L 8.1 L (12.0-16.0) g/dl Hct 29.0 L 27.3 L (37.0-47.0) % Plt Count 305 272 (160-400) X10*3/uL BMP 04/10/25 04/11/25 22:32 04:15 Sodium 140 138 Potassium 3.1 L 3.2 L Chloride 98 103 Carbon Dioxide 27 28 BUN 11 10 Creatinine 1.11 1.01 Calcium 9.3 8.3 L D Liver Function 04/10/25 04/11/25 Range/Units 22:32 04:15 Total Bilirubin 1.2 H 1.1 H (0.0-1.0) mg/dL AST 29 17 (5-31) U/L ALT < 6 < 6 (0-31) U/L Alkaline Phosphatase 88 72 (39-117) U/L Albumin 3.3 L 2.5 L (3.5-5.0) g/dL Urine 04/11/25 Range/Units 01:12 Urine Color Yellow Urine Appearance Turbid Urine pH 7.5 (5.0-9.0) Ur Specific [place] <= 1.005 (1.005-1.025) Urine Protein Negative (Neg-Trace) mg/dL Urine Glucose (UA) >=1000 H (Negative) mg/dL Assessment and Plan (1) Pancreatic lesion: Status: Acute Plan 89 YF with AFib on digoxin, Eliquis, history, HLD, diabetes, COPD, aortic stenosis, TIA, recent admission to the hospital for acute pancreatitis; seen at [facility] [place] ED on 04/10/25 with nausea vomiting and epigastric pain for the past few days. Pt reported having diarrhea. 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 Pt had a normal lipase during current admission (of note lipase was elevated to > 3000 during hospitalization in 03/2025). Per Dr Rivera since pt is not a surgical candidate further evaluation of cystic lesion with EUS/FNA was deferred. RECOMMENDATIONS: 1. Agree with IV anti-emetics and add IV PPI - order placed 2. Check CEA and CA 19-9 and stool for pancreatic elastase to rule out pancreatic insufficiency to determine if pt would benefit from pancreatic enzyme replacement. 3. She will need an ERCP for removal of pancreatic duct stone as an outpatient once pancreatitis resolves Pt has significant co-morbidities and low functional reserve that puts her at a relatively higher risk of hola-procedural complications. Procedures Date of Service Date of Service: 04/12/25
--- NOTE | 2025-04-11 07:34 | P.PNIM_ITS ---
Subjective Subjective Date of Service: 04/11/25 Interval History: Currently continuing on IV antibiotics Awaiting GI and put regarding pancreatic cystic lesion question neoplasm given acute on chronic pancreatitis Patient reports being uncomfortable-initiated her on pain meds She reports bilateral lower extremity pain, likely secondary to restless legs syndrome-ropinirole initiated Review of Systems Review of Systems: Yes all other systems are reviewed and are negative Physical Exam 2 Exam: Exam: General: AxOx3, appears to be uncomfortable secondary to pain CVS; RRR, S1 S2 normal Lungs: Clear bilateral breath sounds, no wheezes or crackles Abd: Soft non tender, non distended Ext: Was tender to touch, hence did not palpate her shins Vital Signs: Vital Signs: Last Vital Signs Temp 97.8 F 04/11/25 05:29 Pulse 78 04/11/25 05:29 Resp 18 04/11/25 05:29 BP 130/61 04/11/25 05:29 Pulse Ox 96 04/11/25 05:29 O2 Del Method Room Air 04/11/25 05:29 O2 Flow Rate 2 04/11/25 00:31 BMI result Body Mass Index 24.0 Objective Data Active Medications Acetaminophen (Acetaminophen 325 Mg Tablet) 650 mg PO Q6H PRN PRN Reason: Pain, Mild 1-3,fever,headache Apixaban (Apixaban 2.5 Mg Tablet) 2.5 mg PO BID [facility] Calcium Carbonate (Calcium Carbonate 750 Mg Tab.Chew) 750 mg PO Q4H PRN PRN Reason: Heartburn Last Admin: 04/11/25 04:33 Dose: 750 mg Documented By: ANNIKA Calcium Carbonate (Calcium Carbonate 750 Mg Tab.Chew) 750 mg PO Q6H PRN PRN Reason: Heartburn Piperacillin Sod/Tazobactam (Sod 3.375 gm/ Sodium Chloride) 50 mls @ 100 mls/hr IV Q6H [facility] Last Infusion: 04/11/25 04:22 Dose: Infused Documented By: ANNIKA Magnesium Hydroxide (Milk Of Magnesia 30 Ml Oral.Susp) 30 ml PO DAILY PRN PRN Reason: Constipation Melatonin (Melatonin 3 Mg Tablet) 6 mg PO BEDTIME PRN PRN Reason: Insomnia Sodium Chloride (0.9 % Sodium Chloride Flush 3 Ml Syringe) 3 ml IVFLUSH QSHIFT [facility] Labs 04/11/25 04:16 04/11/25 04:15 Labs: Laboratory Results - last 24 hr 04/10/25 04/10/25 04/11/25 22:31 22:32 00:49 MCV 75.5 L MCH 22.9 L MCHC 30.3 L RDW 18.8 H Plt Count 305 MPV 10.5 Immature Gran % (Auto) 0.4 Neut % (Auto) 70.5 Lymph % (Auto) 11.5 L [place] % (Auto) 15.9 H Eos % (Auto) 1.4 Baso % (Auto) 0.3 Lymph # (Auto) 1.3 [place] # (Auto) 1.8 H Eos # (Auto) 0.2 Baso # (Auto) 0.0 Abs Immat Gran (auto) 0.05 H Absolute Neuts (auto) 7.8 Absolute Nucleated RBC 0.000 Nucleated RBC % (auto) 0.0 Smear Tech's Comments VERIFIED Anion Gap 18 Estim Creat Clear Calc 27.6 Estimated GFR 46 Random Glucose 145 H Lactic Acid 3.6 H* Lactic Acid F/U @ 2Hr 2.7 H* Lactic Acid F/U @ 4Hr Calcium 9.3 Magnesium 1.9 Total Bilirubin 1.2 H AST 29 ALT < 6 Alkaline Phosphatase 88 Troponin I High Sens 6.2 Total Protein 6.2 L Albumin 3.3 L Lipase 48 Urine Color Urine Appearance Urine pH Ur Specific [place] Urine Protein Urine Glucose (UA) Urine Ketones Urine Blood Urine Nitrite Ur Leukocyte Esterase Urine RBC Urine WBC Ur Squamous Epith Cells Urine Bacteria Hyaline Casts Digoxin < 0.2 L 04/11/25 04/11/25 04/11/25 01:12 04:15 04:16 MCV 75.6 L MCH 22.4 L MCHC 29.7 L RDW 18.7 H Plt Count 272 MPV 11.1 Immature Gran % (Auto) 0.3 Neut % (Auto) 70.7 Lymph % (Auto) 12.2 L [place] % (Auto) 15.4 H Eos % (Auto) 1.1 Baso % (Auto) 0.3 Lymph # (Auto) 1.2 [place] # (Auto) 1.5 H Eos # (Auto) 0.1 Baso # (Auto) 0.0 Abs Immat Gran (auto) 0.03 Absolute Neuts (auto) 6.9 Absolute Nucleated RBC 0.000 Nucleated RBC % (auto) 0.0 Smear Tech's Comments Anion Gap 10 L Estim Creat Clear Calc 30.4 Estimated GFR 52 Random Glucose 121 H Lactic Acid Lactic Acid F/U @ 2Hr Lactic Acid F/U @ 4Hr 1.3 Calcium 8.3 L D Magnesium Total Bilirubin 1.1 H AST 17 ALT < 6 Alkaline Phosphatase 72 Troponin I High Sens Total Protein 4.9 L Albumin 2.5 L Lipase Urine Color Yellow Urine Appearance Turbid Urine pH 7.5 Ur Specific [place] <= 1.005 Urine Protein Negative Urine Glucose (UA) >=1000 H Urine Ketones Negative Urine Blood Moderate (2+) H Urine Nitrite Negative Ur Leukocyte Esterase Moderate (2+) H Urine RBC >20 H Urine WBC >50 H Ur Squamous Epith Cells 11-20 Urine Bacteria 4+ Hyaline Casts 6-10 Digoxin Assessment and Plan (1) Paroxysmal atrial fibrillation: Status: Acute (2) Carotid artery disease: Status: Acute (3) Type 2 diabetes mellitus with hyperglycemia: Status: Acute Plan 89-year-old female with a past medical history of HTN, HLD, dm, CVA, dysphagia, vertebral artery stenosis, lumbar spinal stenosis, GERD, COPD, CKD, aortic stenosis, anemia presented to the hospital today with repeat N/V/D and epigastric pain, possible pancreatitis N/V/D 2/2 A/C pancreatitis +_ UTI Pt reports having N/V/D 2/2 A/C pancreatitis after being DC'd recently for similar concerns. CT abdomen pelvis showed pancreatic lesion-with surrounding inflammation; concerning for acute on chronic pancreatitis. GI consulted -Likely to get EUS & ERCP at [facility] pending stability Pain mxx with IV & po as tolerated CT abdomen pelvis showed 2 mm pancreatic ductal stone Gastroenterology consult>ERCP for pancreatic duct stone o/p when pancreatitis resolves o/p UA suggestive of UTI - Cont Zosyn - will deescalate prn Diarrhea - likley 2/2 abx use- will check GI and C diff panel Diabetes Mellitus 2 SSI, POCs PAFib Eliquis cont - risks vs benefits HR currently controlled continue BB CKD3 Creatinine at baseline. COPD No acute exacerbation DVT prophylaxis: SCD boots Code status: Full code This note is constructed using voice recognition software. While every effort has been made to ensure accuracy, consulting analyst errors may have been included. Needs ongoing admission to cont IV abx and risk of decompensation. Will evaluate and DC in 1-2 days Quality Stroke Does the patient have a stroke diagnosis?: No VTE Prior VTE?: No VTE Risk Level:: Medical - moderate - high VTE Device Contraindication: Treatment Not Indicated VTE Drug Contraindication: N/A - Med Ordered
--- NOTE | 2025-04-11 09:49 | PHA.MEDREC ---
Pharmacy Consult ? Medication Reconciliation Pharmacy has completed the medication reconciliation. Patient is a poor historian, however patient had a list of medications from a discharge from 03/30/25. Patient states she is no longer taking Eliquis 2.5 mg. Patient has been off from more then a week Utilized discharge packet from 03/30/25. Patient last had her medications yesterday.
[2025-04-11] MEDS: Potassium Chloride ER 20 MEQ TAB.ER.PRT 40 MEQ PO (10:15)
[2025-04-11] MEDS: 0.9 % Sodium Chloride Flush 3 ML SYRINGE IVFLUSH ×2 (10:17→16:08)
--- NOTE | 2025-04-11 10:35 | PC.NURSE ---
Krystin Shoemaker : [phone] (pt's neighbor/helps take care of her) updated. Okay to communicate with per pt.
[2025-04-11] MEDS: oxyCODONE HCl Immed Release 5 MG TABLET PO (11:39)
--- NOTE | 2025-04-11 12:40 | MHC.CM.PN ---
CM met with Patient at bedside, in the ED, and addressed IMM wiannah her, providing Patient with the original and a copy will be placed on the chart. Patient lives alone in an apartment and she was active with [facility]. Home/resume said services is the goal and CM has initiated and will follow for dc planning. PCP is Dr. Jacobs and HCP is Sister/Lili. Patient may need assist with transport at dc.
--- NOTE | 2025-04-11 14:12 | PC.NURSE ---
Assumed care of patient. Has been sleeping, allowed to rest. VSS, resp even, nonlaboured.
[2025-04-11 17:02] LABS: Glucose, Whole Blood 94 mg/dL (60-115)
--- NOTE | 2025-04-11 18:32 | PC.NURSE ---
Pt urinating frequently. Consuming clear liquid tray this evening with no issues, self feeding. PIV removed due to discomfort, another #20 placed with US guidance in GIULIA.
--- NOTE | 2025-04-11 20:09 | PC.NURSE ---
at this time pt noted to be actively vomiting and complaining of 10/10 abdominal pain ,
--- NOTE | 2025-04-11 23:08 | PC.NURSE ---
pt requesting medication for sleep, pt medicated per MAR
[2025-04-12] VITALS (9 sets, daily range): BP systolic 108–134; BP diastolic 50–70; PULSE 72–95; RESP 14–20; TEMP 36.1–36.6; O2SAT 96–100; BMI 23.5
[2025-04-12 05:09] LABS: Carcinoembryonic Antigen < 1.73 ng/mL
[2025-04-12] MEDS: 0.9 % Sodium Chloride Flush 3 ML SYRINGE IVFLUSH ×4 (05:55→22:18)
--- NOTE | 2025-04-12 07:16 | HO.PM.IMPN ---
Subjective Subjective Date of Service: 04/12/25 Interval History: Patient continues to report intermittent nausea vomiting and 10/10 epigastric pain and chest pain We are continuing to give her IV antiemetics and IV ppi GI consulted, appreciate their recommendations, checking CEA and CA 19 9 and stool for pancreatic elastase to rule out pancreatic insufficiency in We will need ERCP for the removal of pancreatic duct stone as outpatient once pancreatitis resolves Escalating pain meds as needed Review of Systems Review of Systems: Yes all other systems are reviewed and are negative Physical Exam Exam: Exam: General: AxOx3, appears to be uncomfortable secondary to pain CVS; RRR, S1 S2 normal Lungs: Clear bilateral breath sounds, no wheezes or crackles Abd: Soft non tender, non distended Ext: Was tender to touch, hence did not palpate her shins Vital Signs: Vital Signs: Last Vital Signs Temp 97.4 F 04/12/25 03:57 Pulse 85 04/12/25 03:57 Resp 14 04/12/25 03:57 BP 131/60 04/12/25 03:57 Pulse Ox 100 04/12/25 03:57 O2 Del Method Nasal Cannula 04/12/25 03:57 O2 Flow Rate 3 04/12/25 03:57 BMI result Body Mass Index 24.0 Objective Data Active Medications Acetaminophen (Acetaminophen 325 Mg Tablet) 650 mg PO Q6H PRN PRN Reason: Pain, Mild 1-3,fever,headache Last Admin: 04/11/25 10:15 Dose: 650 mg Documented By: GURMEET Albuterol Sulfate (Albuterol Sulfate 90 Mcg 8 Gm Inhaler) 1 puff INHALE QID PRN PRN Reason: Shortness Of Breath Or Wheezing Alprazolam (Alprazolam 0.25 Mg Tablet) 0.25 mg PO DAILY PRN PRN Reason: Anxiety Last Admin: 04/11/25 11:39 Dose: 0.25 mg Documented By: GURMEET Apixaban (Apixaban 2.5 Mg Tablet) 2.5 mg PO BID [facility] Last Admin: 04/11/25 21:38 Dose: 2.5 mg Documented By: HA Ascorbic Acid (Ascorbic Acid 500 Mg Tablet) 500 mg PO DAILY [facility] Atorvastatin Calcium (Atorvastatin Calcium 40 Mg Tablet) 40 mg PO BEDTIME [facility] Last Admin: 04/11/25 21:38 Dose: 40 mg Documented By: HA Calcium Carbonate (Calcium Carbonate 750 Mg Tab.Chew) 750 mg PO Q4H PRN PRN Reason: Heartburn Last Admin: 04/11/25 04:33 Dose: 750 mg Documented By: ANNIKA Calcium Carbonate (Calcium Carbonate 750 Mg Tab.Chew) 750 mg PO Q6H PRN PRN Reason: Heartburn Cyanocobalamin (Cyanocobalamin (Vitamin B-12) 1,000 Mcg Tablet) 1,000 mcg PO DAILY [facility] Digoxin (Digoxin 0.125 Mg Tablet) 0.125 mg PO MOWEFR [facility]; Protocol Last Admin: 04/11/25 11:44 Dose: 0.125 mg Documented By: GURMEET Famotidine (Famotidine 20 Mg Tablet) 40 mg PO BEDTIME [facility] Last Admin: 04/11/25 21:38 Dose: 40 mg Documented By: HA Furosemide (Furosemide 40 Mg Tablet) 40 mg PO DAILY [facility]; Protocol Last Admin: 04/11/25 11:38 Dose: 40 mg Documented By: GURMEET Piperacillin Sod/Tazobactam (Sod 2.25 gm/ Sodium Chloride) 50 mls @ 100 mls/hr IV Q6H [facility] Last Infusion: 04/12/25 06:33 Dose: Infused Documented By: HA Lidocaine (Lidocaine 4 % Patch Adh..Patch) 2 patch TRANSDERMA DAILY [facility]; Protocol Magnesium Hydroxide (Milk Of Magnesia 30 Ml Oral.Susp) 30 ml PO DAILY PRN PRN Reason: Constipation Meclizine HCl (Meclizine Hcl 12.5 Mg Tablet) 12.5 mg PO TID PRN PRN Reason: Vertigo Melatonin (Melatonin 3 Mg Tablet) 6 mg PO BEDTIME PRN PRN Reason: Insomnia Last Admin: 04/11/25 23:08 Dose: 6 mg Documented By: HA Metoprolol Succinate (Metoprolol Succinate Er 50 Mg Tab.Er.24h) 50 mg PO DAILY [facility]; Protocol Nystatin (Nystatin Powder 15 Gm Bottle) 1 appl TOPICAL DAILY [facility]; Protocol Oxycodone HCl (Oxycodone Hcl Immed Release 5 Mg Tablet) 5 mg PO Q6H PRN PRN Reason: Pain, Moderate(Pain Scale 4-6) Last Admin: 04/11/25 11:39 Dose: 5 mg Documented By: GURMEET Pregabalin (Pregabalin 100 Mg Capsule) 100 mg PO Q12H [facility] Last Admin: 04/11/25 23:08 Dose: 100 mg Documented By: HA Ropinirole HCl (Ropinirole Hcl 0.25 Mg Tablet) 0.25 mg PO BEDTIME [facility] Last Admin: 04/11/25 23:08 Dose: 0.25 mg Documented By: HA Sodium Chloride (0.9 % Sodium Chloride Flush 3 Ml Syringe) 3 ml IVFLUSH QSHIFT [facility] Last Admin: 04/12/25 05:55 Dose: 3 ml Documented By: HA Tamsulosin HCl (Tamsulosin Hcl 0.4 Mg Capsule) 0.4 mg PO BEDTIME [facility] Last Admin: 04/11/25 21:38 Dose: 0.4 mg Documented By: HA Vitamin D (Cholecalciferol (Vitamin D3) 25 Mcg Tablet) 25 mcg PO DAILY [facility] Zolpidem Tartrate (Zolpidem Tartrate 5 Mg Tablet) 5 mg PO BEDTIME PRN PRN Reason: Insomnia Labs 04/11/25 04:16 04/11/25 04:15 Labs: Laboratory Results - last 24 hr 04/11/25 04/12/25 16:55 03:54 POC Glucose 94 Carcinoembryonic Ag < 1.73 Microbiology Microbiology Results: Microbiology 04/10/25 22:29 Blood Culture - Preliminary Blood - Venous No growth after 24 hours. 04/10/25 22:29 Blood Culture - Preliminary Blood - Venous No growth after 24 hours. Assessment and Plan (1) Paroxysmal atrial fibrillation: Status: Acute (2) Carotid artery disease: Status: Acute (3) Type 2 diabetes mellitus with hyperglycemia: Status: Acute Plan 89-year-old female with a past medical history of HTN, HLD, dm, CVA, dysphagia, vertebral artery stenosis, lumbar spinal stenosis, GERD, COPD, CKD, aortic stenosis, anemia presented to the hospital today with repeat N/V/D and epigastric pain, possible pancreatitis N/V/D 2/2 A/C pancreatitis +_ UTI Patient is still unable to tolerate any p.o. intake requiring significant IV antiemetics and PPI Pt reports having N/V/D 2/2 A/C pancreatitis after being DC'd recently for similar concerns. CT abdomen pelvis showed pancreatic lesion-with surrounding inflammation; concerning for acute on chronic pancreatitis. GI consulted -Likely to get EUS & ERCP at [facility] pending stability Pain mxx with IV & po as tolerated CT abdomen pelvis showed 2 mm pancreatic ductal stone Gastroenterology consult>ERCP for pancreatic duct stone o/p when pancreatitis resolves o/p UA suggestive of UTI - Cont Zosyn - will deescalate prn Diarrhea - likley 2/2 abx use- will check GI and C diff panel Diabetes Mellitus 2 SSI, POCs PAFib Eliquis cont - risks vs benefits HR currently controlled continue BB CKD3 Creatinine at baseline. COPD No acute exacerbation DVT prophylaxis: SCD boots Code status: Full code This note is constructed using voice recognition software. While every effort has been made to ensure accuracy, planetarium technician errors may have been included. Needs ongoing admission to cont IV abx and risk of decompensation. Will evaluate and DC in 1-2 days Quality Stroke Does the patient have a stroke diagnosis?: No VTE Prior VTE?: No VTE Risk Level:: Medical - moderate - high VTE Device Contraindication: Treatment Not Indicated VTE Drug Contraindication: N/A - Med Ordered
[2025-04-12] MEDS: Umeclidinium/Vilanterol 62.5/25 BLST.W.DEV 1 PUFF INHALE (07:29)
--- NOTE | 2025-04-12 07:44 | PC.NURSE ---
Patient got up to commode to urinate. Patient on 2L via nasal cannula took off oxygen to trial. Oxygen 88-93% depending on if she's sitting up straight. Patient states she has pain as soon as she drinks any liquid. I stopped her from drinking anything else. Dr. Coffman notified.
[2025-04-12] MEDS: Metoprolol Succinate ER 50 MG TAB.ER.24H PO (08:25)
--- NOTE | 2025-04-12 08:29 | PC.NURSE ---
Patient has not had a bowel movement today.
[2025-04-12 21:04] LABS: Glucose, Whole Blood 198 mg/dL (60-115)
[2025-04-12 22:42] LABS: Glucose, Whole Blood 154 mg/dL (60-115)
[2025-04-13 03:47] VITALS: BP 125/62; PULSE 72; RESP 18; TEMP 36.3; O2SAT 98
[2025-04-13 05:18] LABS: Hemoglobin A1C 85.5518 umol/L; Total Hemoglobin (HGBA1C) 1603.9906 umol/L
--- NOTE | 2025-04-13 07:18 | HO.PM.IMPN ---
Subjective Subjective Date of Service: 04/13/25 Physical Exam Vital Signs: Vital Signs: Last Vital Signs Temp 97.4 F 04/13/25 03:47 Pulse 72 04/13/25 03:47 Resp 18 04/13/25 03:47 BP 125/62 04/13/25 03:47 Pulse Ox 98 04/13/25 03:47 O2 Del Method Nasal Cannula 04/13/25 03:47 O2 Flow Rate 2 04/13/25 03:47 BMI result Body Mass Index 23.5 Objective Data Active Medications Acetaminophen (Acetaminophen 325 Mg Tablet) 650 mg PO Q6H PRN PRN Reason: Pain, Mild 1-3,fever,headache Last Admin: 04/11/25 10:15 Dose: 650 mg Documented By: GURMEET Albuterol Sulfate (Albuterol Sulfate 90 Mcg 8 Gm Inhaler) 1 puff INHALE QID PRN PRN Reason: Shortness Of Breath Or Wheezing Alprazolam (Alprazolam 0.25 Mg Tablet) 0.25 mg PO DAILY PRN PRN Reason: Anxiety Last Admin: 04/11/25 11:39 Dose: 0.25 mg Documented By: GURMEET Apixaban (Apixaban 2.5 Mg Tablet) 2.5 mg PO BID [facility] Last Admin: 04/12/25 22:18 Dose: 2.5 mg Documented By: REJI Ascorbic Acid (Ascorbic Acid 500 Mg Tablet) 500 mg PO DAILY [facility] Last Admin: 04/12/25 08:25 Dose: 500 mg Documented By: EUFEMIA Atorvastatin Calcium (Atorvastatin Calcium 40 Mg Tablet) 40 mg PO BEDTIME [facility] Last Admin: 04/12/25 22:18 Dose: 40 mg Documented By: REJI Calcium Carbonate (Calcium Carbonate 750 Mg Tab.Chew) 750 mg PO Q4H PRN PRN Reason: Heartburn Last Admin: 04/12/25 07:51 Dose: 750 mg Documented By: EUFEMIA Calcium Carbonate (Calcium Carbonate 750 Mg Tab.Chew) 750 mg PO Q6H PRN PRN Reason: Heartburn Cyanocobalamin (Cyanocobalamin (Vitamin B-12) 1,000 Mcg Tablet) 1,000 mcg PO DAILY [facility] Last Admin: 04/12/25 08:23 Dose: 1,000 mcg Documented By: EUFEMIA Dextrose (Dextrose 50 % 25 Gm/50 Ml Syringe) 25 gm IVPUSH Q15M PRN; Protocol PRN Reason: per Hypoglycemia Standing Ord. Digoxin (Digoxin 0.125 Mg Tablet) 0.125 mg PO MOWEFR [facility]; Protocol Last Admin: 04/11/25 11:44 Dose: 0.125 mg Documented By: GURMEET Famotidine (Famotidine 20 Mg Tablet) 40 mg PO BEDTIME [facility] Last Admin: 04/12/25 22:18 Dose: 40 mg Documented By: REJI Furosemide (Furosemide 40 Mg Tablet) 40 mg PO DAILY [facility]; Protocol Last Admin: 04/12/25 08:23 Dose: 40 mg Documented By: EUFEMIA Glucose (Glucose Gel 15 Gm Gel..Gram.) 15 gm PO Q15M PRN; Protocol PRN Reason: per Hypoglycemia Standing Ord. Piperacillin Sod/Tazobactam (Sod 2.25 gm/ Sodium Chloride) 50 mls @ 100 mls/hr IV Q6H [facility] Last Infusion: 04/13/25 04:33 Dose: Infused Documented By: REJI Insulin Human Lispro (Insulin Lispro 100 Unit/Ml 3 Ml Vial) 0 unit SUBCUT QIDACHS [facility]; Protocol Last Admin: 04/12/25 22:37 Dose: Not Given Documented By: REJI Non-Admin Reason: Patient Refused Lidocaine (Lidocaine 4 % Patch Adh..Patch) 2 patch TRANSDERMA DAILY [facility]; Protocol Last Admin: 04/12/25 08:27 Dose: Not Given Documented By: EUFEMIA Non-Admin Reason: Patient Refused Magnesium Hydroxide (Milk Of Magnesia 30 Ml Oral.Susp) 30 ml PO DAILY PRN PRN Reason: Constipation Meclizine HCl (Meclizine Hcl 12.5 Mg Tablet) 12.5 mg PO TID PRN PRN Reason: Vertigo Melatonin (Melatonin 3 Mg Tablet) 6 mg PO BEDTIME PRN PRN Reason: Insomnia Last Admin: 04/11/25 23:08 Dose: 6 mg Documented By: HA Metoprolol Succinate (Metoprolol Succinate Er 50 Mg Tab.Er.24h) 50 mg PO DAILY [facility]; Protocol Last Admin: 04/12/25 08:25 Dose: 50 mg Documented By: EUFEMIA Nystatin (Nystatin Powder 15 Gm Bottle) 1 appl TOPICAL DAILY [facility]; Protocol Last Admin: 04/12/25 08:27 Dose: 1 appl Documented By: EUFEMIA Ondansetron HCl (Ondansetron Hcl 4 Mg/2 Ml Vial) 4 mg IVPUSH Q6H PRN PRN Reason: Nausea and Vomiting Oxycodone HCl (Oxycodone Hcl Immed Release 5 Mg Tablet) 5 mg PO Q6H PRN PRN Reason: Pain, Moderate(Pain Scale 4-6) Last Admin: 04/11/25 11:39 Dose: 5 mg Documented By: GURMEET Pantoprazole Sodium (Pantoprazole Sodium 40 Mg/10 Ml Vial) 40 mg IVPUSH BID@0630,1630 [facility] Last Admin: 04/13/25 06:02 Dose: 40 mg Documented By: REJI Pregabalin (Pregabalin 100 Mg Capsule) 100 mg PO Q12H [facility] Last Admin: 04/12/25 22:18 Dose: 100 mg Documented By: REJI Ropinirole HCl (Ropinirole Hcl 0.25 Mg Tablet) 0.25 mg PO BEDTIME [facility] Last Admin: 04/12/25 22:18 Dose: 0.25 mg Documented By: REJI Sodium Chloride (0.9 % Sodium Chloride Flush 3 Ml Syringe) 3 ml IVFLUSH QSHIFT [facility] Last Admin: 04/12/25 22:18 Dose: 3 ml Documented By: REJI Tamsulosin HCl (Tamsulosin Hcl 0.4 Mg Capsule) 0.4 mg PO BEDTIME [facility] Last Admin: 04/12/25 22:18 Dose: 0.4 mg Documented By: REJI Vitamin D (Cholecalciferol (Vitamin D3) 25 Mcg Tablet) 25 mcg PO DAILY [facility] Last Admin: 04/12/25 08:25 Dose: 25 mcg Documented By: EUFEMIA Zolpidem Tartrate (Zolpidem Tartrate 5 Mg Tablet) 5 mg PO BEDTIME PRN PRN Reason: Insomnia Last Admin: 04/12/25 23:13 Dose: 5 mg Documented By: REJI Labs 04/11/25 04:16 04/11/25 04:15 Labs: Laboratory Results - last 24 hr 04/12/25 04/12/25 04/12/25 18:26 20:44 22:35 POC Glucose 198 H 154 H Estimat Average Glucose 154 Hemoglobin A1c % 7.0 H Microbiology Microbiology Results: Microbiology 04/10/25 22:29 Blood Culture - Preliminary Blood - Venous No growth after 48 hours. 04/10/25 22:29 Blood Culture - Preliminary Blood - Venous No growth after 48 hours. 04/11/25 01:12 Urine Culture - Final Urine clean catch - Clean Catch Midstream Quality Stroke Does the patient have a stroke diagnosis?: No VTE Prior VTE?: No VTE Risk Level:: Medical - moderate - high VTE Device Contraindication: Treatment Not Indicated VTE Drug Contraindication: N/A - Med Ordered
[2025-04-13 07:31] LABS: Glucose, Whole Blood 121 mg/dL (60-115)
[2025-04-13 07:53] VITALS: BP 126/60; PULSE 66; RESP 20; TEMP 36.5; O2SAT 99
[2025-04-13] MEDS: Umeclidinium/Vilanterol 62.5/25 BLST.W.DEV 1 PUFF INHALE (08:09)
[2025-04-13 08:12] VITALS: PULSE 66; RESP 18; O2SAT 100
[2025-04-13] MEDS: 0.9 % Sodium Chloride Flush 3 ML SYRINGE IVFLUSH (08:24)
[2025-04-13] MEDS: Metoprolol Succinate ER 50 MG TAB.ER.24H PO (08:24)
--- NOTE | 2025-04-13 08:32 | PC.NURSE ---
04/11/25 1139 pain score erroneously documented as 7, should have been 6. Pt medicated with oxycodone per order.
[2025-04-13 11:57] LABS: Glucose, Whole Blood 177 mg/dL (60-115)
[2025-04-13 12:00] VITALS: BP 99/55; PULSE 55; RESP 20; TEMP 36.7; O2SAT 96
--- NOTE | 2025-04-13 14:31 | P.DS_ITS ---
DS: Providers Provider Date of Service: 04/13/25 Date of admission: 04/11/25 03:14 Date of discharge: 04/13/25 Primary care physician: Solange Jacobs MD Consults: 04/11/25 04:22 Consult to Gastroenterology Routine Consulting Provider: [facility] Reason for consultation: Pancreatic cystic lesions; question cystic neoplasm; pancreatitis DS: Diagnosis Discharge Diagnosis (1) Acute pancreatitis: Status: Acute DS: Summary Hospital Course Hospital Course: N/V/D 2/2 A/C pancreatitis +_ UTI 89-year-old female with a past medical history of HTN, HLD, dm, CVA, dysphagia, vertebral artery stenosis, lumbar spinal stenosis, GERD, COPD, CKD, aortic stenosis, anemia presented to the hospital today with repeat N/V/D and epigastric pain, possible pancreatitis complicated by sepsis secondary to UTI. 04/11/[address] SCAN SHOWED: 1. 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 The lesion has mildly increased in size from the recent CT and now has a thin rim of enhancement and mild surrounding fat stranding consistent with infection/inflammation. 2. Additional chronic findings as above. Patient was treated with IV pain meds and challenged with oral diet which she has been able to tolerate at the time of discharge. Her nausea vomiting and diarrhea resolved. Diarrhea was deemed noninfectious in etiology given C diff and GI panel was negative. GI was consulted and she will likely get EUS ERCP in outpatient settings-GI office to arrange for that. Pt reports having N/V/D 2/2 A/C pancreatitis after being DC'd recently for similar concerns. CT abdomen pelvis showed pancreatic lesion-with surrounding inflammation; concerning for acute on chronic pancreatitis. GI consulted -Likely to get EUS & ERCP at [facility] pending stability Pain mxx with Tylenol as tolerated CT abdomen pelvis showed 2 mm pancreatic ductal stone Gastroenterology consult>ERCP for pancreatic duct stone o/p when pancreatitis resolves o/p UA suggestive of UTI - switched her to Augmentin to complete 5 day course Diarrhea - likley 2/2 abx use- GI and C diff panel negative Diabetes Mellitus 2 SSI, POCs PAFib Eliquis cont - risks vs benefits HR currently controlled continue BB CKD3 Creatinine at baseline. COPD No acute exacerbation DVT prophylaxis: SCD boots Code status: Full code This note is constructed using voice recognition software. While every effort has been made to ensure accuracy, public relations officer errors may have been included. She is being discharged on Augmentin and is otherwise stable. Patient to get ERCP and EUS at [facility] in outpatient setting. There is a concern of neoplasm and GI is following the patient and has her scheduled in outpatient settings for workup. Time spent discussing smoking cessation with patient: more than 10 minutes Time Attestation Discharge Coordination Time (in mins): 55 Quality: Safe Use of Opioids Does Pt have an Active Cancer Diagnosis on the Problem List?: No Quality: Stroke Does the patient have a stroke diagnosis?: No Physical Exam Exam: Exam: General: AxOx3, appears to be uncomfortable secondary to pain CVS; RRR, S1 S2 normal Lungs: Clear bilateral breath sounds, no wheezes or crackles Abd: Soft non tender, non distended Vital Signs: Vital Signs: Last Vital Signs Temp 98.1 F 04/13/25 12:00 Pulse 55 04/13/25 12:00 Resp 20 04/13/25 12:00 BP 99/55 L 04/13/25 12:00 Pulse Ox 96 04/13/25 12:00 O2 Del Method Nasal Cannula 04/13/25 12:00 O2 Flow Rate 2 04/13/25 12:00 BMI result Body Mass Index 23.5 DS: Data Data Completed and Pending Labs on day of discharge: Laboratory Results - last 24 hr 04/12/25 04/12/25 04/12/25 03:54 18:26 20:44 POC Glucose 198 H Estimat Average Glucose 154 Hemoglobin A1c % 7.0 H CA 19-9 Antigen 38 H 04/12/25 04/13/25 04/13/25 22:35 07:28 11:52 POC Glucose 154 H 121 H 177 H Estimat Average Glucose Hemoglobin A1c % CA 19-9 Antigen Preliminary micro results at discharge 04/10/25 22:29 Blood Culture - Preliminary Blood - Venous No growth after 48 hours. 04/10/25 22:29 Blood Culture - Preliminary Blood - Venous No growth after 48 hours. Discharge Plan Discharge Anticipated Discharge Date/Time: 04/13/25 15:25 Patient Disposition: Home, Self-Care Discharge Diagnosis: Pancreatitis secondary to known pancreatic duct stone Referrals: Niko Farmer MD [Physician, Gastroenterology] - 1 Week Po,Solange Giles MD [Primary Care Provider, Internal Medicine] - 1 Week Discharge Medications: New ropinirole 0.25 mg Tablet 0.25 mg PO BEDTIME 30 Days Qty: 30 0RF oxycodone 5 mg Tablet 5 mg PO Q6H PRN (Reason: Pain, Moderate(Pain Scale 4-6)) 3 Days Qty: 5 0RF Rx Instructions: Partial Fill upon patient request. amoxicillin-pot clavulanate 875-125 mg tablet 1 tab PO Q12H 5 Days Qty: 10 0RF Continued (DME) lancets [FreeStyle Lancets] 28 gauge misc See Rx Instructions .ROUTE .MEDSUPPLY Qty: 100 3RF Rx Instructions: use to test sugar once a day cyanocobalamin (vitamin B-12) [Vitamin B-12] 1,000 mcg tablet 1,000 mcg PO DAILY Qty: 90 0RF ascorbic acid (vitamin C) [Vitamin C] 500 mg tablet 500 mg PO DAILY Qty: 90 1RF cholecalciferol (vitamin D3) 25 mcg (1,000 unit) capsule 25 mcg PO DAILY Qty: 90 1RF (DME) incontinence pad, liner, disp Pad See Rx Instructions .Route Qty: 60 5RF Rx Instructions: As directed (DME) FreeStyle Lite Strips Strip See Rx Instructions .ROUTE .MEDSUPPLY Qty: 100 3RF Rx Instructions: As directed check the BS QD (DME) Adult pull ups See Rx Instructions .Route .MEDSUPPLY Qty: 300 11RF Rx Instructions: As directed atorvastatin [Lipitor] 40 mg tablet 40 mg PO BEDTIME Qty: 90 3RF umeclidinium-vilanterol [Anoro Ellipta] 62.5-25 mcg/actuation blister with device 1 inh inhalation DAILY Qty: 3 3RF pregabalin 100 mg capsule 100 mg PO Q12H 31 Days Qty: 62 2RF alprazolam 0.25 mg tablet 0.25 mg PO DAILY PRN (Reason: anxiety) Qty: 20 0RF furosemide 40 mg tablet 40 mg PO DAILY Qty: 90 0RF zolpidem 5 mg tablet 5 mg PO BEDTIME PRN (Reason: insomnia) Qty: 30 0RF meclizine 12.5 mg Tablet 12.5 mg PO TID PRN (Reason: Vertigo) digoxin 125 mcg (0.125 mg) tablet 125 mcg PO MOWEFR albuterol sulfate 90 mcg/actuation Hfa Aerosol Inhaler 1 inh INHALATION QID PRN (Reason: Shortness Of Breath Or Wheezing) tramadol 50 mg tablet 50 mg PO BID PRN (Reason: pain) nystatin 100,000 unit/gram powder 1 appl topical DAILY sitagliptin 25 mg Tablet 25 mg PO DAILY diclofenac sodium 1 % gel 1 ea topical QID PRN (Reason: Pain) metoprolol succinate 50 mg tablet extended release 24 hr 50 mg PO DAILY (DME) [employer] See Rx Instructions .Route .MEDSUPPLY Qty: 1 0RF Rx Instructions: As directed tamsulosin 0.4 mg capsule 0.4 mg PO BEDTIME 90 Days Qty: 90 3RF famotidine 40 mg tablet 40 mg PO BEDTIME Qty: 90 3RF Held empagliflozin 25 mg Tablet 25 mg PO DAILY Hold Instructions: Resume on 04/20/25. Discharge Orders: Discharge Order (Routine); Ordered 04/13/25 Ordered By: Yadi Coffman Diet: Low salt diet Activity on Discharge: As tolerated Stand Alone Forms: Patient Portal Discharge page Print Language: Macedonian Care Plan Goals: Please follow-up with GI for workup of pancreatic mass that is concerning for a malignant processes You are scheduled for outpatient GI workup Culture and sensitivity for your urine is still pending-you are being prescribed 5 day course of antibiotics to complete a total 7 day course given Cade medical comorbidities Please follow-up with your PCP within a week after discharge We have prescribed use some medication for pain Please feel free to come back to the ED if you concerns about pain or unable to eat. Health Concerns: Pancreatic mass workup See above Plan of Treatment: Augmentin 5 more days to complete 7 days of antibiotic course for possible UTI- culture and sensitivity pending Oxycodone for pain prescribed for 5 days if needed more please seek out care from the PCP for further medical management Initiated ropinirole for possible restless legs syndrome please seek further care and workup through your PCP Assessment: * See above
[2025-04-13 14:59] VITALS: BP 102/56; PULSE 71; RESP 16; TEMP 36.9; O2SAT 98
--- NOTE | 2025-04-13 15:33 | MHC.CM.PN ---
Pt. has been medically cleared to [place], she will go home via private transport, plan is resume services from [facility].
[2025-04-13 16:23] LABS: Glucose, Whole Blood 183 mg/dL (60-115)
== END 2025-04-13 16:36 | disposition home or self-care (01) | DRG 439 ==
LOC: HO.ED 04-11 03:13 → HO.EDOVER 04-11 03:17 → HO.IMC 04-12 11:44
PROVIDERS: Internal Medicine Gastroenterology; Admitting Provider Hospitalist; Emergency Provider Emergency Medicine; PCP Internal Medicine; Visit Provider Student in an Organized Health Care Education/Training Program
DX: K85.90 Acute pancreatitis without necrosis or infection, unspecified (principal); K52.1 Toxic gastroenteritis and colitis; N39.0 Urinary tract infection, site not specified; I48.0 Paroxysmal atrial fibrillation; K86.1 Other chronic pancreatitis; J44.9 Chronic obstructive pulmonary disease, unspecified; K86.89 Other specified diseases of pancreas; I12.9 Hypertensive chronic kidney disease with stage 1 through stage 4 chronic kidney disease, or unspecified chronic kidney disease; D37.8 Neoplasm of uncertain behavior of other specified digestive organs; T36.95XA Adverse effect of unspecified systemic antibiotic, initial encounter; I35.0 Nonrheumatic aortic (valve) stenosis; N18.30 Chronic kidney disease, stage 3 unspecified; E11.22 Type 2 diabetes mellitus with diabetic chronic kidney disease; Z87.891 Personal history of nicotine dependence; Z79.899 Other long term (current) drug therapy
CPT/HCPCS: 36415; 71045; 74177; 80053; 80162; 81001; 82378; 82947; 83036; 83605; 83690; 83735; 84484; 85025; 86301; 87040; 87086; 93005; 94640; 99285; J0131; J2405; J2470; J2543; J3360; J7120; Q9967

== ENCOUNTER → 2025-04-10 22:05 | Outpatient (BNV) | payer MEDICARE, OTHER, SELFPAY | PROVIDERS: Admitting Provider Hospitalist; Emergency Provider Emergency Medicine; PCP Internal Medicine; Visit Provider Internal Medicine Cardiovascular Disease | DX: I48.91 Unspecified atrial fibrillation (principal) | CPT/HCPCS: 93010 ==

== ENCOUNTER → 2025-04-10 22:35 | Outpatient (BNV) | payer MEDICARE, OTHER, SELFPAY | PROVIDERS: Emergency Provider Emergency Medicine; PCP Internal Medicine; Visit Provider Radiology Diagnostic Radiology | DX: R91.8 Other nonspecific abnormal finding of lung field (principal) | CPT/HCPCS: 71045 ==

== ENCOUNTER → 2025-04-11 00:01 | Outpatient (BNV) | payer MEDICARE, OTHER, SELFPAY | PROVIDERS: Emergency Provider Emergency Medicine; PCP Internal Medicine; Visit Provider Radiology Diagnostic Radiology | DX: A41.9 Sepsis, unspecified organism (principal); R10.9 Unspecified abdominal pain | CPT/HCPCS: 74177 ==

== ENCOUNTER → 2025-04-11 03:14 | Outpatient (BNV) | payer MEDICARE, OTHER, SELFPAY | PROVIDERS: Admitting Provider Hospitalist; Emergency Provider Emergency Medicine; PCP Internal Medicine; Visit Provider Internal Medicine Gastroenterology | DX: K86.9 Disease of pancreas, unspecified (principal) | CPT/HCPCS: 99222 ==

== ENCOUNTER → 2025-04-11 03:14 | Outpatient (BNV) | payer MEDICARE, OTHER, SELFPAY | PROVIDERS: Admitting Provider Hospitalist; Emergency Provider Emergency Medicine; PCP Internal Medicine; Visit Provider Student in an Organized Health Care Education/Training Program | DX: I48.0 Paroxysmal atrial fibrillation (principal); I77.9 Disorder of arteries and arterioles, unspecified; E11.65 Type 2 diabetes mellitus with hyperglycemia | CPT/HCPCS: 99233 ==

== ENCOUNTER 2025-04-15 14:54 | Outpatient (AMB) | payer MEDICARE, OTHER, SELFPAY ==
--- OUTSIDE RECORDS SUMMARY | 2019-07-01 10:53 | XMS_ITS | Continuity of Care Document ---
Author Organization [facility] Address [address] [address] Phone Care Team Providers Care Block Sawyer Name Role Phone Anton Jean Baptiste DO Unavailable Unavailable Advance Directives Directive Yes / No Effective Date File Name No Information Encounters Encounter Description Practice Location Reason(s) For Visit Diagnoses Date Provider [facility], [address] [place] [address], [id number], [place] tel:[phone] [address] [place] [address] No Information 2019 Markel Walton. [address] [place] [address], [id number], [place]. tel:[phone] Family History Family Member Type Diagnosis Age At Onset No Information Payers Payer name Insurance type Covered green party ID Authoriza tion(s) No Information Social History Type Description Quantity Date Captured Comments Sex Female Smoking Status No Information Chief Complaint And Reason For Visit No Information History Of Present Illness Encounter Date Complaint History Of Prese nt Illness No Information Instructions Date Instruction Additional Infor mation No Information Assessments Type Assessment Date No Information
--- OUTSIDE RECORDS SUMMARY | 2019-07-01 10:53 | XMS_ITS | Continuity of Care Document ---
Author Organization [facility] Address [address] [address] Phone Care Team Providers Care Purchaser [employer]otive Parts Name Role Phone Anton Jean Baptiste DO Unavailable Unavailable Advance Directives Directive Yes / No Effective Date File Name No Information Encounters Encounter Description Practice Location Reason(s) For Visit Diagnoses Date Provider [facility], [address] [place] [address], [id number], [place] tel:[phone] [address] [place] [address] No Information 2019 Markel Walton. [address] [place] [address], [id number], [place]. tel:[phone] Family History Family Member Type Diagnosis Age At Onset No Information Payers Payer name Insurance type Covered alliance party ID Authoriza tion(s) No Information Social History Type Description Quantity Date Captured Comments Sex Female Smoking Status No Information Chief Complaint And Reason For Visit No Information History Of Present Illness Encounter Date Complaint History Of Prese nt Illness No Information Instructions Date Instruction Additional Infor mation No Information Assessments Type Assessment Date No Information
--- NOTE | 2025-04-15 15:01 | MHC.PC.OV ---
Vital Signs 04/15/25 15:03 Height 4 ft 9 in Weight 128 lb BMI 27.7 BP 112/66 Blood Pressure Location Lt brachial Position Sitting Pulse 81 Pulse Source Pulse Oximeter Temp 97.7 F Temp Source Temporal Artery Scan Pulse Oximetry (%) 95 Oxygen Delivery Method Room Air Intake Visit Reasons: TCM [facility] PANCREATITIS 04/13 Intake Note: Patient is here for hospital discharge and TCM follow up. Patient was discharged from [facility] on 04/13/25. Microfilm Equipment Inspector Required: No Finish Saw Operator: Present Accompanied by: Friend Allergies ciprofloxacin Allergy (Severe, Verified 04/15/25 15:02) unknown aspirin (Aspirin) Allergy (Unknown, Verified 04/15/25 15:02) UNKNOWN cefuroxime Allergy (Unknown, Verified 04/15/25 15:02) Unknown celecoxib (From Celebrex) Allergy (Unknown, Verified 04/15/25 15:02) UNKNOWN metformin Allergy (Unknown, Verified 04/15/25 15:02) diarrhea risedronate sodium (From Actonel) Allergy (Unknown, Verified 04/15/25 15:02) UNKNOWN Sulfa (Sulfonamide Antibiotics) Allergy (Unknown, Verified 04/15/25 15:02) unknown bupropion Adverse Reaction (Intermediate, Verified 04/15/25 15:02) tremor ferrous sulfate Adverse Reaction (Intermediate, Verified 04/15/25 15:02) tremors sertraline Adverse Reaction (Intermediate, Verified 04/15/25 15:02) tremors Tobacco use date assessed: 04/15/25 Fall risk assessment: No Falls in past year Last assessed Fall Risk: 04/15/25 Dental Screening Dental Screen Date: 07/06/24 [facility] TCM Information Date of Discharge 04/13/25 Discharged From [facility] Interactive Contact Date (Reference documentation from this date) 04/14/25 HPI Comments History of Present Illness Details 89-year-old female presents today for hospital discharge follow-up. Past medical history significant for hypertension, hyperlipidemia, type 2 diabetes mellitus, prior CVA, dysphagia, vertebral artery stenosis, lumbar spinal stenosis, GERD, COPD, CKD, and aortic stenosis. She was admitted at [facility] from 04/11?04/13 for evaluation of persistent nausea, vomiting, diarrhea, and epigastric pain. CT abdomen/pelvis on 04/11 showed a cystic lesion arising from the uncinate process of the pancreas, present on prior imaging since 01/16/24, consistent with benignity but possibly a cystic neoplasm. Lesion has mild interval enlargement, thin rim enhancement, and mild surrounding fat stranding, concerning for infection/inflammation. Overall picture concerning for acute on chronic pancreatitis. Diarrhea during hospitalization was deemed noninfectious (C. diff and GI pathogen panel negative). GI recommended outpatient ERCP + EUS at [facility]; patient is scheduled. Concern remains for neoplasm; GI following. Today, patient reports right breast pain >2 weeks. States she reported this during hospitalization but no workup was done. Pain described as persistent; no additional descriptors provided. Denies fever, nipple discharge, erythema, or palpable mass (not assessed today). She agrees to schedule a follow-up with her PCP for focused evaluation. [facility] Medical History (Updated 04/14/25 @ 00:01 by Adriane Rodriguez) Diverticulitis Contusion of second toe of left foot Dizziness and giddiness Yeast infection of the skin Generalized abdominal pain Cystitis Weakness Atrial fibrillation with RVR Acute urinary retention Acute diverticulitis of intestine Atrial fibrillation with RVR Acute respiratory failure with hypoxia CHF (congestive heart failure) Asthma Exercise hypoxemia Weakness Nausea & vomiting Hypokalemia Hypomagnesemia Diarrhea Hearing difficulty Diverticular disease Diabetes mellitus Dyspnea on exertion History of gastrointestinal diverticular hemorrhage COVID-19 virus infection Rectal bleeding Medicare annual wellness visit, initial Hip pain, left Patellar sleeve fracture of right knee Lipoma of lower back Knee pain, right Nausea and vomiting Coarse tremors Shoulder pain, right Hospital discharge follow-up Failure to thrive in adult Mass on back Constipation Tinea corporis Nausea Right wrist pain Left knee pain Left hip pain Toe pain, left Breast cancer screening by mammogram TSH elevation Urinary frequency UTI (urinary tract infection) Urinary incontinence Type 2 diabetes mellitus with hyperglycemia Toe fracture, left Pancreatic cyst Osteoporosis Peptic ulcer disease Urinary incontinence Rectal incontinence GERD (gastroesophageal reflux disease) Obesity (BMI 30-39.9) Bile salt-induced diarrhea Vaginal prolapse Renal artery stenosis Asthma Lumbar degenerative disc disease Insomnia TIA (transient ischemic attack) Hyperlipidemia, unspecified Essential hypertension Surgical History Hx of colonoscopy History of esophagogastroduodenoscopy (EGD) History of removal of cyst (~10/17/21) History of hemorrhoidectomy History of colectomy History of section History of hysterectomy History of appendectomy History of cholecystectomy Family History Father Cancer Arterial thrombosis Mother Multiple sclerosis Muscular dystrophy Hypertension Depression Chronic mental illness Mental health disorder Brother No problems noted. Brother Gangrene Sister No problems noted. Son No problems noted. Son No problems noted. Son No problems noted. Son No problems noted. Daughter No problems noted. Daughter No problems noted. Daughter No problems noted. Social History Household Members: None Housing: Apartment Do you presently have visiting nurse or other home services: Yes Alcohol intake: former Comment: 1:1 sitter. Patient Tobacco Use Status: Former Tobacco user Tobacco use type: Cigarette Years Smoked: 22 e-Cigarette/Vaping Use: Former Use Second Hand Smoke Exposure: Yes Advance Directives Date on File: 08/11/23 service: No Current occupational status: disabled Current occupational exposures/hazards: No Cognitive needs: Yes (walker) Hearing needs: Yes Vision needs: Yes (Glasses) Questionnaire Thrive Questionnaire Date Thrive assessed: 10/05/24 I am a: Patient What is your living situation today?: I have a steady place to live Within the past 12 months, did the food you bought not last and you didn't have the money to get more?: Sometimes True Within the past 12 months, did you worry whether your food would run out before you got money to buy more?: Sometimes True Do you have trouble paying for medicines?: Yes Do you have trouble getting transportation to medical appointments?: Yes Do you have trouble paying your heating and electricity bill?: No Do you have trouble taking care of your child, family member or friend?: No Do you have trouble with day-to-day activities such as bathing, preparing meals, shopping, managing finances, etc.?: No Are you currently unemployed and looking for a job?: No Are you interested in more education?: No Please select the resources that you would like help with: None Currently or been in a relationship where the following occur: No concerns reported THRIVE Score: 3 MERY-7 AMB Questionnaire MERY-7 Date MERY - 7 assessed: 07/06/24 Source: Developed by Drs. Brandon Villeda, Vijaya Damon, Jaydon Easley and colleagues, with an educational phi from [employer]. Review of Systems Const All systems reviewed & are unremarkable except as noted in HPI and below Physical exam (Primary Care) Vital Signs: Last Vital Signs Temp 97.7 F 04/15/25 15:03 Pulse 81 04/15/25 15:03 BP 112/66 04/15/25 15:03 Pulse Ox 95 04/15/25 15:03 Oxygen Delivery Method Room Air 04/15/25 15:03 BMI result Body Mass Index 27.7 Tobacco/Smoking Status: Tobacco use Status Tobacco use date assessed 04/15/25 04/15/25 15:11 Patient Tobacco Use Status Former Tobacco user 04/15/25 15:01 Tobacco use type Cigarette 04/15/25 15:01 e-Cigarette/Vaping Use Former Use 04/15/25 15:01 Thrive Assessment: Date of Thrive Assessment Date Thrive assessed 10/05/24 04/15/25 15:01 Currently or been in a relationship where the following occur: No concerns reported Const General: no acute distress Nutritional Appearance: overweight Orientation/consciousness: patient oriented x3 Chest Breast/axilla palpation: other (planned PCP follow-up. ) Resp Effort & Inspection: normal respiratory effort Cardio Rate: regular rate GI Other: Soft, nondistended, nontender on exam today. Neuro General: patient oriented x3 Coding Level of Care Code TCM Mod MDM <= 7 Days Diagnoses Pancreatic duct calculus K86.89 Time Spent (min) 20 Assessment & Plan Assessment & Plan (1) Pancreatic duct calculus: Code(s): K86.89 - Other specified diseases of pancreas Category: Medical Plan: Hospital discharge follow-up ? Recent admission 04/11?04/13 for persistent N/V/D and epigastric pain, found to have pancreatic cystic lesion with surrounding inflammation consistent with acute on chronic pancreatitis. GI follow-up and workup in progress. Symptoms currently resolved. Pancreatic cystic lesion ? Chronic lesion with mild interval changes; concern for neoplastic process. Outpatient ERCP/EUS scheduled. Encouraged hydration, low-fat diet given chronic pancreatitis risk. For right breast pain: Advised patient to schedule PCP appointment promptly for breast exam and appropriate imaging. Discussed red flags (new mass, skin changes, nipple discharge, worsening pain); instructed to notify PCP Pt scheduled with [facility] on 05/03/25. Medications: Refilled furosemide 40 mg PO DAILY 90 tabs 0RF
[2025-04-15 15:03] VITALS: BP 112/66; PULSE 81; TEMP 36.5; O2SAT 95; BMI 27.7
--- OUTSIDE RECORDS SUMMARY | 2025-04-15 22:40 | XMS_ITS | Encounter Summary ---
Author Organization [facility] Address [address] [place] [address] Phone Care Team Providers Care Gem Setter Name Role Phone Solange Jacobs MD Primary Care Provider [phone] Encounter Details Date Type Department Care Team (Late st Contact Info) Description 03/10/2021 Procedure Pass [facility], Ct Scan - [facility] [address] [place] [address] Social History Tobacco Use Types Packs/Day Years [...] 12:20 PM EDT Katie Hugo, JUAN * [place] Suicide Severity Rating Scale (Screener/Recent Self-Report) [...] documented as of this encounter Care Teams Gem Setter Relationship Specialty Start Date End Date Solange Jacobs MD [address] [place] [phone] PCP - General Internal Medicine 08/26/17 documented as of this encounter Additional Source Comments The information contained in this document represents components of the legal health record. It is not the complete legal health record.[facility]
--- OUTSIDE RECORDS SUMMARY | 2025-04-15 22:40 | XMS_ITS | Data Portability ---
Author Organization [facility] [employer] [facility], Main Office Address [address] [place] [address] Care Team Providers Care Traction Power Engineer Name Role Phone CHIQUIS ESCOBEDO - 2ND FLOOR OTHER PO, ALYSSA Primary Care Provider [phone] Assessment No assessment recorded. Plan of Treatment Reminders Order Date Submit Date Provider Last Modified By Organization Details Last Modified Time Details Appointments None recorded . Lab None recorded . Referral None recorded . Procedures None recorded . Surgeries None recorded . Imaging None recorded . Medication Orders Xanax 0.25 mg tablet 024 01/14/20 24 [facility] , [address] [place], [address], 4 18:34:50 Patient TargetsNo targets recorded. Patient InstructionsNo instructions recorded. Reason for Referral None Reported. Problems Name Problem SNOMED Code Status Onset Date Resolution Date Notes Provider Name and Address Organization Details Recorded Time Type 2 diabetes mellitus 42363602 Active 2023 Charis Lowry NP [address] [facility], [facility] [address], [place], [address], [facility] 4 13:18:25 Chronic obstructive pulmonary disease 32056822 Active 2023 Charis Lowry NP [address] [facility], [address], [place], [address], [facility] 4 13:18:33 Congestive heart failure 13064954 Active 2023 Charis Lowry NP [address] [facility], [address], [place], [address], [facility] 4 13:18:38 Acute respiratory failure 96608002 Active 2023 Charis Lowry NP [address], [address], [place], [address], [facility] 4 13:18:55 Atrial fibrillation 25220654 Active 2023 Charis Lowry NP [address], [address], [place], [address], [facility] 4 13:22:29 Tremor 89562700 Active 2023 Charis Lowry NP [address], [address], [place], [address], [facility] 4 13:23:07 Mixed anxiety and depressive disorder 464390470 Active 2023 Charis Lowry NP [address], [address], [place], [address], [facility] 4 13:23:16 Chronic pain 35787900 Active 2023 Charis Lowry NP [address], [address], [place], [address], [facility] 4 13:28:13 Anemia 934678522 Active 2023 Charis Lowry NP [address], [address], [place], [address], [facility] 4 13:28:23 Cyst of pancreas 03221160 Active 2023 Charis Lowry NP [address], [address], [place], [address], [facility] 4 13:28:47 Hyperlipidemia 92206405 Active 2023 Charis Lowry NP [address], [address], [place], [address], [facility] 4 13:28:58 Gastroesophage al reflux disease 685509134 Active 2023 Charis Lowry NP [address], [address], [place], [address], [facility] 4 13:29:37 Hypertensive disorder 90320463 Active 2023 Charis Lowry NP [address] [facility], [address], [place], [address], [facility] 4 13:31:15 Problem Notes None recorded. Medical Equipment None Reported. Allergies Allergen ID Allergen Name Allergen Category Reaction Reaction Severity Criticality Documentation Date Start Date Code Code System Note Provider Name and Address Organization Details Recorded Time 69978 aspirin medicatio n other Not available unabletoasse 01/14/2024 1191 RxNorm unkno wn Charis Lowry NP [address] [facility], [address], [place], [address], [facility] 4 12:52:40 99755 cefuroxim e Not available other Not available unabletoasse 01/14/2024 2194 RxNorm unkno seun Lowry NP [address] [facility], [address], [place], [address], [facility] 4 12:53:03 77174 celecoxib medicatio n other Not available unabletoasse 01/14/2024 43608 7 RxNorm unkno wn Charis Lowry NP [address] [facility], [address], [place], [address], [facility] 4 12:53:18 08171 ciproflox acin medicatio n other Not available unabletoasse 01/14/2024 2551 RxNorm unkno seun Lowry NP [address] [facility], [address], [place], [address], [facility] 4 12:53:34 34857 ferrous sulfate medicatio n other Not available unabletoasse 01/14/2024 16035 RxNorm unkno seun Lowry NP [address] [facility], [address], [place], [address], [facility] 4 12:53:47 37948 metformin medicatio n other Not available unabletoasse 01/14/2024 6809 RxNorm unkno wn Charis Lowry NP [address] [facility], [address], [place], [address], [facility] 4 12:54:05 80496 risedrona te sodium medicatio n other Not available unabletoasse 01/14/2024 90392 RxNorm unkno wn Charis Lowry NP [address] [facility], [address], [place], [address], [facility] 4 12:54:29 08869 sertralin e medicatio n other Not available unabletoasse 01/14/2024 34793 RxNorm unkno wn Charis Lowry NP [address] [facility], [address], [place], [address], [facility] 4 12:54:44 74542 bupropion Not available other Not available unabletoasse 01/14/2024 15953 RxNorm unkno seun Lowry NP [address] [facility], [address], [place], [address], [facility] 4 12:55:26 95015 Substance with sulfonami de structure and antibacte rial mechanism of action (substanc e) medicatio n other Not available unabletoasse 01/14/2024 69114 8003 SNOMED unkno seun Lowry NP [address] [facility], [address], [place], [address], [facility] 4 12:55:43 Medications Name Sig Start Date [...] Address Organization Details Last Updated DateTime 4 69761.2 2 g 90 /min 20 /min 98 [degF] 95 % 95 % 136/88 mm[Hg] Charis Lowry NP [address] [facility], [address], [place], [address], [facility] 13:06:27 Social History Question Answer Notes LastModified by Organizat ion Details LastModified Time Tobacco Smoking Status Former Smoker Charis Lowry, PANDA [address] [facility], [address], [place], [address], [facility] 01/14/2024 12:59:12 Do You Have An [...] conjugate PCV 13 6 completed Yazmin daley, [facility] 01/14/2024 12:45:53 influenza, unspecified formulation 2 completed Yazmin [facility] 01/14/2024 12:46:10 influenza, unspecified formulation 3 completed Yazminrosenda Morris [facility] 01/14/2024 12:46:17 SARS-COV-2 (COVID-19) vaccine, UNSPECIFIED 1 completed Yazmin [facility] 01/14/2024 12:50:53 SARS-COV-2 (COVID-19) vaccine, UNSPECIFIED 1 completed Yazmin Morris [facility] 01/14/2024 12:51:02 SARS-COV-2 (COVID-19) vaccine, UNSPECIFIED 1 completed Yazmin Morris [facility] 01/14/2024 12:51:09 SARS-COV-2 (COVID-19) vaccine, UNSPECIFIED 2 completed Yazmin [facility] 01/14/2024 12:51:17 SARS-COV-2 (COVID-19) vaccine, UNSPECIFIED 3 completed Yazminrosenda Morris [facility] 01/14/2024 12:51:24 Past Encounters Encounter ID Performer Location Encounter Start Date Encounter Closed Date Diagnosis/Indication Diagnosis SNOMED-CT Code Diagnosis ICD10 Code Diagnosis IMO Codes Diagnosis Note [id number] Charis Lowry NP [address] [address] 01/14/2024 12:46:17 01/15/2024 13:06:34 Acute respiratory failure 51041207 J96.00 prednisone 40 mg po daily x 4 daysfurose mide 40 mg po dailyalbut gibson qid prn sob/wheezi ngsingulai r 10 mg po kuovu13-4- 4 liters prn sob sat <90%monito r resp statuslabs as above Congestive heart failure 59707421 I50.9 see acute resp failure above Chronic ob structive pulmonary disease 08928714 J44.9 see acute resp failure above Atrial fibrillation 6407 2890 I48.91 eliquis 2.5 mg po bid for acmetoprol ol succ 100 mg po ermonitor cardiac status, vitals Mixed anxi ety and depressive disorder 418527864 F41.8 01/13 alprazolam 0.25 mg po bid prn (pt reports it is sched daily at home on the bottle but has been taking up to 4 times a day)monito r Tremor 29454700 R25.1 hx offno medication smonitor Cyst of pancreas 6625110 0 K86.2 see hpihistory of cyst noted on abd ctseen by GI, no new recfollow up with pcp outpt Hyperlipidemia 73985665 E78.5 atrovastat in 40 mg po daily Gastroesop hageal reflux disease 082204280 K21.9 with nausea/vom iting todaydexil ant 60 mg po cap dailyzofra n 4 mg po q 6 hours prn nausea vomingadd pepcid 20 mg po daily x 2 qweekmonit or Chronic pain 02361217 G8 9.29 diclofenac 4 g topically qid for paintramad ol 50 mg po daily prn q 6 hours painpregab edward 100 mg po q 12 hoursmonit or for pain Anemia 399727073 D64.9 vit c 500 mg with ferrous sulfate 325 mg po dailyfolic acid 1 mg po dialymonit or cbc weekly and for s/s of bleedingcy anocobalam in 1000 mcg po daily Hypertensive disorder 38 312495 I10 nifedipine 60 mg po er dailymonit or vitals, need to titrate Nausea and vomiting 1693 2000 R11.2 with nausea and vomiting todayrecen t workup in hospitalde xilant 60 mg po cap dailyzofra n 4 mg po q 6 hours prn nausea vomingadd pepcid 20 mg po daily x 2 qweekconsi agustin ivf if no response of ermonitorl abs stable today Asthenia 19903982 R53.1 with weaknessPT OT eval and treatmonit or for improvemen t/worsenin g Health Concerns Section Related Observation LastModified by Organization Detai ls LastModified Time None Recorded Concern Status LastModified by Organization Details LastModified Time None Recorded Advance Directives Directive N: Payers Insurance Date Sequence Insurance Name Policy Number Policy Quiles Covered Member ID Quiles Member ID Guarantor Name 01/15/2024 1 MEDICARE [place]: [employer] Zuleyma Gutierrez [id number] Zuleyma Gutierrez 03/24/2024 2 () [id number] Zuleyma Gutierrez Notes Date Note Type Note Provider Name and Address Organization Details Recorded Time 01/14/2024 text/html Pt is seen for an initial intake visit today. PMH: COPD, CHF, DM2, anxiety, hard of hearing, tremors, chronic pain, She is an 88 yo female who presented to [facility] [place] 01/09-01/13/24 with shortness of breath, dizziness, anxiety, and lower extremity swelling felt related to CHF and afib. She is now at [facility] for continued care and rehab. Hospital [...] MOLST: full code Charis Lowry, PANDA [address] [facility], [address], [place], [address], [facility] 01/14/2024 14:11:50 OBGyn Episode No OBEpisode recorded.
--- OUTSIDE RECORDS SUMMARY | 2025-04-15 22:40 | XMS_ITS | Encounter Summary ---
Author Organization [facility] Address [address] [place] [address] Phone Care Team Providers Care Silk Screen Frame Assembler Name Role Phone Solange Jacobs MD Primary Care Provider [phone] Reason for Referral * Physical Therapy (Routine) - Closed Specialty Diagnoses / Procedures Referred By Contac t Referred To Contact Physical Therapy Diagnoses Encounter for rehabilitation System, Provider Not In, [facility] [id number] [place] [address] Phone: tel: Referral ID Status Reason Start Date Expiration Date Visits Re quested Visits Authorized [id number] Closed 07/01/2018 06/01/2019 99 [phone] Encounter Details Date Type Department Care Team (Latest Contact Info) Description 06/10/2018 Transcribe Orders [facility] [address] [place] [id number] Solange Jacobs MD [address] [place] [phone] Encounter for rehabilitation (Primary Dx) Social [...] Diagnoses Orde r Schedule Ambulatory referral to [facility] Physical Therapy Outpatient Referral Routine Encounter for rehabilitation Ordered: 06/10/2018 documented as of this encounter Visit Diagnoses Diagnosis Encounter for rehabilitation- Primary documented in this encounter Additional Health Concerns Infection Onset Date Last Indicated Resolved Time MRSA Comment:Resolved per Time Based Criteria via [facility] 10/23/2013 10/23/2013 03/15/2022 2:40 PM E DT COVID-19 03/14/2022 03/14/2022 04/04/2022 1:2 2 AM EDT CoV-Risk Comment:Neg covid admitted for COPD 07/29/2022 07/29/2022 02/2 12/2022 7:51 AM EST CoV-Risk Comment:Neg covid 02/04/2023 02/04/2023 02/04/2023 3:01 PM E DT CoV-Risk 03/04/2023 03/04/2023 03/15/2023 1:22 AM EDT documented as of this encounter Care Teams Silk Screen Frame Assembler Relationship Specialty Start Date End Date Solange Jacobs MD [address] [facility] [address] [place] [phone] PCP - General Internal Medicine 08/26/17 documented as of this encounter Additional Source Comments The information contained in this document represents components of the legal health record. It is not the complete legal health record.[facility]
--- OUTSIDE RECORDS SUMMARY | 2025-04-15 22:40 | XMS_ITS | Encounter Summary ---
Author Organization [facility] Address [address] [place] [address] Phone Care Team Providers Care Crawler Dragline Operator Name Role Phone Solange Jacobs MD Primary Care Provider [phone] Encounter Details Date Type Department Care Team (Late st Contact Info) Description 08/26/2017 Procedure Pass [facility], Ct Scan - [facility] [address] [place] [address] Social History Tobacco Use Types Packs/Day Years [...] documented as of this encounter Care Teams Crawler Dragline Operator Relationship Specialty Start Date End Date Solange Jacobs MD [address] [place] [address] [place] [phone] PCP - General Internal Medicine 08/26/17 documented as of this encounter Additional Source Comments The information contained in this document represents components of the legal health record. It is not the complete legal health record.[facility]
--- OUTSIDE RECORDS SUMMARY | 2025-04-15 22:41 | XMS_ITS | Encounter Summary ---
Author Organization [facility] Address [address] [place] [address] Phone Care Team Providers Care Malt House Loader Name Role Phone Solange Jacobs MD Primary Care Provider [phone] Encounter Details Date Type Department Care Team (Late st Contact Info) Description 10/10/2022 Procedure Pass [facility], Ct Scan - [facility] [address] [place] [address] Social History Tobacco Use Types Packs/Day Years [...] documented as of this encounter Care Teams Malt House Loader Relationship Specialty Start Date End Date Solange Jacobs MD [address] [place] [address] PCP - General Internal Medicine 08/26/17 documented as of this encounter Additional Source Comments The information contained in this document represents components of the legal health record. It is not the complete legal health record.[facility]
--- OUTSIDE RECORDS SUMMARY | 2025-04-15 22:42 | XMS_ITS | Encounter Summary ---
Author Organization [facility] Address [email or web address] [place] [address] Phone Care Team Providers Care Senior Telecommunications Engineer Name Role Phone Solange Jacobs MD Primary Care Provider [phone] Encounter Details Date Type Department Care Team (Late st Contact Info) Description 10/07/2022 Procedure Pass [facility] [address] [place] [address] Social History Tobacco Use Types Packs/Day Years [...] as of this encounter Care Teams Senior Telecommunications Engineer Relationship Specialty Start Date End Date Solange Jacobs MD [address] [place] [phone] PCP - General Internal Medicine 08/26/17 documented as of this encounter Additional Source Comments The information contained in this document represents components of the legal health record. It is not the complete legal health record.[facility]
--- OUTSIDE RECORDS SUMMARY | 2025-04-15 22:43 | XMS_ITS | Encounter Summary ---
Author Organization [facility] Address [address] [place] [address] Phone Care Team Providers Care Cnc Lathe Programmer Name Role Phone Solange Jacobs MD Primary Care Provider [phone] Encounter Details Date Type Department Care Team (Late st Contact Info) Description 10/06/2022 Procedure Pass [facility], Ct Scan - [facility] [address] [place] [address] Social History Tobacco Use Types Packs/Day Years [...] 5:41 PM EDT Manolo Sales RN * [place] Suicide Severity Rating Scale (Screener/Recent Self-Report) Question [...] documented as of this encounter Care Teams Cnc Lathe Programmer Relationship Specialty Start Date End Date Solange Jacobs MD [address] [place] [address] PCP - General Internal Medicine 08/26/17 documented as of this encounter Additional Source Comments The information contained in this document represents components of the legal health record. It is not the complete legal health record.[facility]
--- OUTSIDE RECORDS SUMMARY | 2025-04-15 22:43 | XMS_ITS | Encounter Summary ---
Author Organization [facility] Address [address] [place] [address] Phone Care Team Providers Care First Officer And Flight Instructor Name Role Phone Solange Jacobs MD Primary Care Provider [phone] Encounter Details Date Type Department Care Team (Latest Contact Info) Description 05/12/2019 Transcribe Orders [facility] [address] [address] Solange Jacobs MD [address] [place] [address] Hypercalcemia (Primary Dx); Nonspecific abnormal [...] EST) TSH 10.10(H) 0.27 - 4.20 uIU/mL [facility] Blood 05/12/2019 10:2 1 AM EST 05/12/2019 10:42 AM EST us Solange Jacobs MD LAB BLOOD BKR ORDERABLES Elodia l Result Performing Organization Address [facility]/ZIP Co de Phone Number [address] [address] * T4, total (05/12/2019 10:21 AM EST) THYROXINE 5.6 4.6 - 12.0 ug/dL [facility] Blood 05/12/2019 10:2 1 AM EST 05/12/2019 10:42 AM EST us Solange Jacobs MD LAB BLOOD ORDERABLES Final Re sult Performing Organization Address [facility] Co de Phone Number [address] [address] * Calcium (05/12/2019 10:21 AM EST) CALCIUM 9.8 8.4 - 10.3 mg/dL [facility] Blood 05/12/2019 10:2 1 AM EST 05/12/2019 10:42 AM EST us Solange Jacobs MD LAB BLOOD BKR ORDERABLES Elodia l Result Performing Organization Address [facility] Co de Phone Number [address] [address] * (ABNORMAL) Parathyroid hormone (PTH) (05/12/2019 10:21 AM EST) PARATHYROID HORMONE 79(H) 15 - 65 pg/mL [facility] Blood 05/12/2019 10:2 1 AM EST 05/12/2019 10:43 AM EST us Solange Jacobs MD LAB BLOOD BKR ORDERABLES Elodia l Result [facility] [address] [place] [address] documented in this encounter Visit Diagnoses Diagnosis [...] documented as of this encounter Care Teams First Officer And Flight Instructor Relationship Specialty Start Date End Date Solange Jacobs MD [address] [place] [phone] PCP - General Internal Medicine 08/26/17 documented as of this encounter Additional Source Comments The information contained in this document represents components of the legal health record. It is not the complete legal health record.[facility]
--- OUTSIDE RECORDS SUMMARY | 2025-04-15 22:43 | XMS_ITS | Encounter Summary ---
Author Organization [facility] Address [address] [place] [address] Phone Care Team Providers Care Wide Area Network Engineer Name Role Phone Solange Jacobs MD Primary Care Provider [phone] Encounter Details Date Type Department Care Team (Latest Contact Info) Description 03/22/2019 Transcribe Orders [address] [address] Solange Jacobs MD [address] [place] [address] Pure hypercholesterolemia (Primary Dx); Essential [...] (03/22/2019 9:36 AM EDT) HDL 46 mg/dL [facility] Comment: Interpretation <40 mg/dL: Low HDL cholesterol (major risk factor for CHD) Greater than or equal to 60 mg/dL: High HDL cholesterol ( negative risk factor for CHD) HDL - cholesterol is affected by a number of factors, e.g. smoking, excerise, hormones, sex and age. CHOLESTEROL 142 0 - 240 mg/dL [facility] TRIGLYCERIDES 261(H) 30 - 160 mg/dL [facility] LDL 44(L) 50 - 129 mg/dL [facility] Comment: LDL levels in terms of risk for coronary heart disease: <100 mg/dL: Optimal 100-129 mg/dL: Near or above optimal 130-159 mg/dL: Borderline high 160-189 mg/dL: High >190 mg/dL: Very High CARDIAC RISK RATIO 3.1(L) 3.3 - 4.4 C [facility] Blood 03/22/2019 9:36 AM EDT 03/22/2019 10:12 AM EDT us Solange Jacobs MD LAB BLOOD BKR ORDERABLES Elodia kraft Result [address] [address] * (ABNORMAL) Comprehensive metabolic panel (03/22/2019 9:36 AM EDT) SODIUM 140 133 - 146 mmol/L [facility] POTASSIUM 5.0 3.3 - 5.1 mmol/L [facility] CHLORIDE 102 96 - 108 mmol/L [facility] CO2 23 21 - 35 mmol/L [facility] BUN 13 6 - 19 mg/dL [facility] CREATININE 0.70 0.5 - 1.5 mg/dL [facility] GLUCOSE 139(H) 70 - 99 mg/dL [facility] ALBUMIN 4.5 3.9 - 4.8 g/dL [facility] TOTAL PROTEIN 7.7 6.5 - 8.0 g/dL [facility] CALCIUM 10.9(H) 8.4 - 10.3 mg/dL [facility] ALKALINE PHOSPHATASE 80 39 - 117 U/L [facility] TOTAL BILIRUBIN 0.7 0.0 - 1.2 mg/dL [facility] AST 38(H) 0 - 37 U/L [facility] ALT 20 0 - 40 U/L [facility] GLOBULIN 3.2 1 - 4.8 g/dL [facility] EGFR 81 >59 mL/min/1.7 3m2 [facility] Comment:If patient is black, multiply result by 1.159. Estimated glomerular filtration rate calculated using the CKD-EPI equation. ANION GAP 20 10 - 20 mmol/L [facility] Blood 03/22/2019 9:36 AM EDT 03/22/2019 10:12 AM EDT us Solange Jacobs MD LAB BLOOD BKR ORDERABLES Elodia l Result Performing Organization Address City/[facility]/ZIP Co de Phone Number [address] [address] * T4, total (03/22/2019 9:36 AM EDT) THYROXINE 5.9 4.6 - 12.0 ug/dL [facility] Blood 03/22/2019 9:36 AM EDT 03/22/2019 10:12 AM EDT us Solange Jacobs MD LAB BLOOD ORDERABLES Final Re sult Performing Organization Address [facility]/ZIP Co de Phone Number [address] [address] * Microalbumin/creatinine ratio, random urine (03/22/2019 9:36 AM EDT) URINE MICROALBUMIN <1.2 0 - 2.3 mg/dL [facility] URINE CREATININE 33 mg/dL [facility] MICROALB/CRE RATIO NOT CALCULATED 0 - 20 mg/g Cre [facility] Comment:due to Microalbumin <1.2 Urine (Urine) 03/22/2019 9:3 6 AM EDT 03/22/2019 10:12 AM EDT Solange Jacobs MD LAB URINE ORDERABLES Final Re sult Performing Organization Address City/[facility]/ZIP Co de Phone Number [address] [address] * (ABNORMAL) TSH (03/22/2019 9:36 AM EDT) TSH 5.64(H) 0.27 - 4.20 uIU/mL [facility] Blood 03/22/2019 9:36 AM EDT 03/22/2019 10:12 AM EDT Solange Jacobs MD LAB BLOOD BKR ORDERABLES Elodia l Result Performing Organization Address [facility] Co de Phone Number [address] [address] * (ABNORMAL) CBC and differential (03/22/2019 9:36 AM EDT) WBC 8.31 3.40 - 11.20 K/uL [facility] RBC 5.31(H) 3.80 - 4.80 M/uL [facility] HGB 16.8(H) 12.0 - 15.0 g/dL [facility] HCT 49.1(H) 36.0 - 46.0 % [facility] PLT 283 130 - 400 K/uL [facility] MCV 92.5 79.0 - 98.0 [employer] MCH 31.6 27.0 - 34.8 pg [facility] MCHC 34.2 31.5 - 36.0 g/dL [facility] RDW 12.8 10.8 - 14.6 % [facility] MPV 10.5 9.4 - 12.4 [facility] NRBC 0.00 0.00 /100 WBCs [facility] ABSOLUTE NRBC 0.00 0.00 K/uL [facility] DIFF METHOD Auto [facility] NEUTS 66.0 45.30 - 77.70 % [facility] LYMPHS 23.0 12.30 - 39.70 % [facility] MONOS 8.9 4.10 - 12.80 % [facility] EOS 1.3 0 - 7.2 % [facility] BASOS 0.6 0 - 2.80 % [facility] Granulocytes, immature (%) 0.2 0.0 - 0.9 % [facility] ABSOLUTE NEUTS 5.48 1.40 - 7.70 K/uL [facility] ABSOLUTE LYMPHS 1.91 0.60 - 3.20 K/uL [facility] ABSOLUTE MONOS 0.74(H) 0.11 - 0.59 K/uL [facility] ABSOLUTE EOS 0.11 0.01 - 0.50 K/uL [facility] ABSOLUTE BASOS 0.05 0.00 - 0.08 K/uL [facility] Granulocytes, immature 0.02 0.00 - 0.05 K/uL [facility] Blood 03/22/2019 9:36 AM EDT 03/22/2019 10:12 AM EDT us Solange Jacobs MD LAB BLOOD BKR ORDERABLES Elodia l Result [address] [address] * (ABNORMAL) Folate (03/22/2019 9:36 AM EDT) FOLIC ACID >20.0(H) 4.2 - 19.9 ng/mL [facility] Blood 03/22/2019 9:36 AM EDT 03/22/2019 10:12 AM EDT Solange Jacobs MD LAB BLOOD BKR ORDERABLES Elodia l Result [address] [address] * Vitamin B12 (03/22/2019 9:36 AM EDT) VITAMIN B12 1,041 232 - 1,245 pg/mL [facility] Blood 03/22/2019 9:36 AM EDT 03/22/2019 10:12 AM EDT us Solange Jacobs MD LAB BLOOD BKR ORDERABLES Elodia l Result Performing Organization Address City/[facility]/ZIP Co de Phone Number [address] [address] * 25-OH vitamin D (03/22/2019 9:36 AM EDT) 25 [place] VIT D (TOTAL) 42 30 - 60 ng/mL [facility] Blood 03/22/2019 9:36 AM EDT 03/22/2019 10:12 AM EDT us Solange Jacobs MD LAB BLOOD BKR ORDERABLES Elodia l Result Performing Organization Address [facility] Co de Phone Number [address] [address] documented in this encounter Visit Diagnoses Diagnosis [...] documented as of this encounter Care Teams Wide Area Network Engineer Relationship Specialty Start Date End Date Solange Jacobs MD [address] [place] [phone] PCP - General Internal Medicine 08/26/17 documented as of this encounter Additional Source Comments The information contained in this document represents components of the legal health record. It is not the complete legal health record.[facility]
--- OUTSIDE RECORDS SUMMARY | 2025-04-15 22:44 | XMS_ITS | Encounter Summary ---
Author Organization [facility] Address [address] [place] [address] Phone Care Team Providers Care Playground Supervisor Name Role Phone Solange Jacobs MD Primary Care Provider [phone] Encounter Details Date Type Department Care Team (Late st Contact Info) Description 03/13/2022 Procedure Pass [facility], Ct Scan - [facility] [address] [place] [address] Social History Tobacco Use Types Packs/Day Years [...] 9:16 PM EDT Arnold Ellington RN * [place] Suicide Severity Rating Scale (Screener/Recent Self-Report) Question [...] documented as of this encounter Care Teams Playground Supervisor Relationship Specialty Start Date End Date Solange Jacobs MD [address] [place] [phone] PCP - General Internal Medicine 08/26/17 documented as of this encounter Additional Source Comments The information contained in this document represents components of the legal health record. It is not the complete legal health record.[facility]
--- OUTSIDE RECORDS SUMMARY | 2025-04-15 22:44 | XMS_ITS | Encounter Summary ---
Author Organization [facility] Address [address] [place] [address] Phone Care Team Providers Care Financial Legal Assistant Name Role Phone Solange Jacobs MD Primary Care Provider Encounter Details Date Type Department Care Team (Late st Contact Info) Description 03/14/2022 Procedure Pass [facility] Admitting Dept Virtual Department [address] [place] [address] Social History Tobacco Use Types Packs/Day Years [...] documented as of this encounter Care Teams Financial Legal Assistant Relationship Specialty Start Date End Date Solange Jacobs MD [address] [place] [phone] PCP - General Internal Medicine 08/26/17 documented as of this encounter Additional Source Comments The information contained in this document represents components of the legal health record. It is not the complete legal health record.[facility]
--- OUTSIDE RECORDS SUMMARY | 2025-04-15 22:45 | XMS_ITS | Encounter Summary ---
Author Organization [facility] Address [address] [place] [address] Phone Care Team Providers Care Managing Attorney Name Role Phone Solange Jacobs MD Primary Care Provider [phone] Encounter Details Date Type Department Care Team (Late st Contact Info) Description 05/24/2021 Procedure Pass [facility], Ct Scan - [facility] [address] [place] [address] Social History Tobacco Use Types Packs/Day Years [...] 05/24/2021 12:34 PM Joan Alan RN * [place] Suicide Severity Rating Scale (Screener/Recent Self-Report) Question [...] documented as of this encounter Care Teams Managing Attorney Relationship Specialty Start Date End Date Solange Jacobs MD [address] [place] [phone] PCP - General Internal Medicine 08/26/17 documented as of this encounter Additional Source Comments The information contained in this document represents components of the legal health record. It is not the complete legal health record.[facility]
--- OUTSIDE RECORDS SUMMARY | 2025-04-15 22:45 | XMS_ITS | Encounter Summary ---
Author Organization [facility] Address [address] [place] [address] Phone Care Team Providers Care Junior Manufacturing Engineer Name Role Phone Solange Jacobs MD Primary Care Provider [phone] Encounter Details Date Type Department Care Team (Late st Contact Info) Description 01/31/2023 Procedure Pass [facility] Admitting Dept Virtual Department [address] [place] [address] Social History Tobacco Use Types Packs/Day Years [...] 5:21 PM EDT America Giles, JUAN * [place] Suicide Severity Rating Scale (Screener/Recent Self-Report) Question [...] documented as of this encounter Care Teams Junior Manufacturing Engineer Relationship Specialty Start Date End Date Solange Jacobs MD [address] [place] [address] [place] [phone] PCP - General Internal Medicine 08/26/17 documented as of this encounter Additional Source Comments The information contained in this document represents components of the legal health record. It is not the complete legal health record.[facility]
--- OUTSIDE RECORDS SUMMARY | 2025-04-15 22:46 | XMS_ITS | Encounter Summary ---
Author Organization [facility] Address [address] [place] [address] Phone Care Team Providers Care Hardware Press Operator Name Role Phone Solange Jacobs MD Primary Care Provider [phone] Encounter Details Date Type Department Care Team (Late st Contact Info) Description 03/14/2022 Procedure Pass [facility] Admitting Dept Virtual Department [address] [place] [address] Social History Tobacco Use Types Packs/Day Years [...] documented as of this encounter Care Teams Hardware Press Operator Relationship Specialty Start Date End Date Solange Jacobs MD [address] [place] [phone] PCP - General Internal Medicine 08/26/17 documented as of this encounter Additional Source Comments The information contained in this document represents components of the legal health record. It is not the complete legal health record.[facility]
--- OUTSIDE RECORDS SUMMARY | 2025-04-15 22:46 | XMS_ITS | Encounter Summary ---
Author Organization [facility] Address [address] [place] [address] Phone Care Team Providers Care Trestle Builder Name Role Phone Solange Jacobs MD Primary Care Provider [phone] Encounter Details Date Type Department Care Team (Late st Contact Info) Description 01/30/2023 Procedure Pass [facility], Ct Scan - [facility] [address] [place] [address] Social History Tobacco Use Types Packs/Day Years [...] documented as of this encounter Care Teams Trestle Builder Relationship Specialty Start Date End Date Reynaldo, Solange Jacobo MD [address] [place] [address] Drive [address] [place] [phone] PCP - General Internal Medicine 08/26/17 documented as of this encounter Additional Source Comments The information contained in this document represents components of the legal health record. It is not the complete legal health record.[facility]
--- OUTSIDE RECORDS SUMMARY | 2025-04-15 22:47 | XMS_ITS | Encounter Summary ---
Author Organization [facility] Address [address] [place] [address] Phone Care Team Providers Care Restaurant Shift Leader Name Role Phone Solange Jacobs MD Primary Care Provider [phone] Encounter Details Date Type Department Care Team (Late st Contact Info) Description 08/02/2023 Procedure Pass [facility], Ct Scan - [facility] [address] [place] [address] Social History Tobacco Use Types Packs/Day Years [...] 08/02/2023 1:51 PM Sukumar Contreras RN * [place] Suicide Severity Rating Scale (Screener/Recent Self-Report) Question [...] on filedocumented in this encounter Care Teams Restaurant Shift Leader Relationship Specialty Start Date End Date Solange Jacobs MD [address] [place] [address] [address] [place] [phone] PCP - General Internal Medicine 08/26/17 documented as of this encounter Additional Source Comments The information contained in this document represents components of the legal health record. It is not the complete legal health record.[facility]
--- OUTSIDE RECORDS SUMMARY | 2025-04-15 22:47 | XMS_ITS | Encounter Summary ---
Author Organization [facility] Address [address] [place] [address] Phone Care Team Providers Care Resourcing Advisor Name Role Phone Solange Jacobs MD Primary Care Provider [phone] Reason for Referral * MRI/CAT Scan - Closed Specialty Diagnoses / Procedures Referred By Contac t Referred To Contact Radiology Diagnoses Pancreatic cyst Procedures MRI Cholangiopancreatography (MRCP) Oumou Moser PA [address] [place] [address] Phone: tel: fax: Referral ID Status Reason Start Date Expiration Date Visits Re quested Visits Authorized [id number] Closed 03/22/2024 03/22/2025 1 1 Encounter Details Date Type Department Care Team (Latest Contact Info) Description 03/22/2024 Transcribe Orders Virtual Department [address] [place] [address] Oumou Moser PA [address] [place] [address] Pancreatic cyst (Primary Dx) Social History Tobacco [...] clinician's provided indication for this examination in [facility]: Outside Radiology Order; pancreatic cyst [...] clinician's provided indication for this examination in [facility]:Outside Radiology Order; pancreatic cyst TECHNIQUE: [...] pancreas documented in this encounter Care Teams Resourcing Advisor Relationship Specialty Start Date End Date Po, Solange Jacobo MD [address] [place] [address] Drive [address] [place] [address] PCP - General Internal Medicine 08/26/17 documented as of this encounter Additional Source Comments The information contained in this document represents components of the legal health record. It is not the complete legal health record.[facility]
--- OUTSIDE RECORDS SUMMARY | 2025-04-15 22:48 | XMS_ITS | Encounter Summary ---
Author Organization [facility] Address [address] [place] [address] Phone Care Team Providers Care Garment Sewing Machine Operator Name Role Phone Solange Jacobs MD Primary Care Provider [phone] Encounter Details Date Type Department Care Team (Late st Contact Info) Description 03/22/2024 Procedure Pass [facility], [facility] [address] [place] [address] Social History Tobacco Use Types Packs/Day Years [...] on filedocumented in this encounter Care Teams Garment Sewing Machine Operator Relationship Specialty Start Date End Date Solange Jacobs MD [address] [place] [address] [place] [phone] PCP - General Internal Medicine 08/26/17 documented as of this encounter Additional Source Comments The information contained in this document represents components of the legal health record. It is not the complete legal health record.[facility]
--- OUTSIDE RECORDS SUMMARY | 2025-04-15 22:48 | XMS_ITS | Encounter Summary ---
Author Organization [facility] Address [address] [place] [address] Phone Care Team Providers Care Heavy Rail Train Operator Name Role Phone Solange Jacobs MD Primary Care Provider [phone] Encounter Details Date Type Department Care Team (Late st Contact Info) Description 11/09/2024 Transcribe Orders [address] [address] Solange Jacobs MD [address] [place] [address] Social History Tobacco Use Types [...] on filedocumented in this encounter Care Teams Heavy Rail Train Operator Relationship Specialty Start Date End Date Solange Jacobs MD [address] [place] [address] [place] [phone] PCP - General Internal Medicine 08/26/17 documented as of this encounter Additional Source Comments The information contained in this document represents components of the legal health record. It is not the complete legal health record.[facility]
--- OUTSIDE RECORDS SUMMARY | 2025-04-15 22:49 | XMS_ITS | Encounter Summary ---
Author Organization [facility] Address [address] [place] [address] Phone Care Team Providers Care Chief Nursing Executive Name Role Phone Solange Jacobs MD Primary Care Provider [phone] Encounter Details Date Type Department Care Team (Late st Contact Info) Description 04/23/2020 Procedure Pass [facility], Ct Scan - [facility] [address] [place] [address] Social History Tobacco Use Types Packs/Day Years [...] documented as of this encounter Care Teams Chief Nursing Executive Relationship Specialty Start Date End Date Solange Jcaobs MD [address] [place] [phone] PCP - General Internal Medicine 08/26/17 documented as of this encounter Additional Source Comments The information contained in this document represents components of the legal health record. It is not the complete legal health record.[facility]
--- OUTSIDE RECORDS SUMMARY | 2025-04-15 22:49 | XMS_ITS | Encounter Summary ---
Author Organization [facility] Address [address] [place] [address] Phone Care Team Providers Care Substation Operator Name Role Phone Solange Jacobs MD Primary Care Provider [phone] Encounter Details Date Type Department Care Team (Late st Contact Info) Description 07/16/2019 Ancillary Orders [facility], X-Ray - [address] [place] [address] Solange Jacobs MD [address] [place] [address] Pain Social History Tobacco Use [...] documented as of this encounter Care Teams Substation Operator Relationship Specialty Start Date End Date Po, Solange Jacobo MD [address] [place] [address] [place] [phone] PCP - General Internal Medicine 08/26/17 documented as of this encounter Additional Source Comments The information contained in this document represents components of the legal health record. It is not the complete legal health record.[facility]
--- OUTSIDE RECORDS SUMMARY | 2025-04-15 22:50 | XMS_ITS | Encounter Summary ---
Author Organization [facility] Address [address] [place] [address] Phone Care Team Providers Care Distillery Laborer Name Role Phone Solange Jacobs MD Primary Care Provider [phone] Encounter Details Date Type Department Care Team (Latest Contact Info) Description 07/16/2019 Transcribe Orders Virtual Department [address] [place] [address] Eu, Delia Loja MD [address] [place] [address] Primary localized osteoarthritis of pelvic region and [...] documented as of this encounter Care Teams Distillery Laborer Relationship Specialty Start Date End Date Reynaldo, Solange Jacobo MD [address] [place] [address] [place] [phone] PCP - General Internal Medicine 08/26/17 documented as of this encounter Additional Source Comments The information contained in this document represents components of the legal health record. It is not the complete legal health record.[facility]
--- OUTSIDE RECORDS SUMMARY | 2025-04-15 22:51 | XMS_ITS | Encounter Summary ---
Author Organization [facility] Address [address] [place] [address] Phone Care Team Providers Care Bakery Worker Conveyor Line Name Role Phone Solange Jacobs MD Primary Care Provider [phone] Encounter Details Date Type Department Care Team (Late st Contact Info) Description 08/05/2019 Ancillary Orders [facility], X-Ray - [address] [address] Bee Barnes MD [address] [place] [address] [email or web address] Social History Tobacco Use Types Packs/Day [...] documented as of this encounter Care Teams Bakery Worker Conveyor Line Relationship Specialty Start Date End Date Solange Jacobs MD [address] [place] [phone] PCP - General Internal Medicine 08/26/17 documented as of this encounter Additional Source Comments The information contained in this document represents components of the legal health record. It is not the complete legal health record.[facility]
--- OUTSIDE RECORDS SUMMARY | 2025-04-15 22:51 | XMS_ITS | Clinical Summary ---
Author Organization [facility] Address [address] [place] [address] Phone Care Team Providers Care Rotational Moulding Operator Name Role Phone Solange Jacobs MD Primary Care Provider [phone] Allergies Active Allergy Reactions Criticality Noted Date [...] Active ferrous sulfate 325 mg (65 mg kwinhagak iron) tablet TAKE 1 TABLET BY MOUTH [...] above studies are resulted - PT/OT evaluations -JOURNAL BOX INSPECTOR evaluation, patient has passed a bedside nursing [...] Type Department Care Team Description 03/30/2025 Telephone [facility] Infectious Diseases [address] [place] [address] Gildardo Conde MD STAT ID Referral (STAT ID Referral) 03/30/2025 Transcribe Orders [facility] Infectious Diseases [address] [place] [address] Gildardo Conde MD Blister of face, neck, and scalp except eye, infected, initial encounter (Primary Dx) 02/23/2025 Orders Only [facility] [address] [place] [address] Homehealth, Interface ProviderMD from Last [...] EDT) SODIUM 137 133 - 146 mmol/L [facility] POTASSIUM 3.8 3.3 - 5.1 mmol/L [facility] CHLORIDE 100 96 - 108 mmol/L [facility] CO2 26 21 - 35 mmol/L [facility] BUN 14 6 - 19 mg/dL [facility] CREATININE 0.90 0.5 - 1.5 mg/dL [facility] GLUCOSE 177(H) 70 - 99 mg/dL [facility] ALBUMIN 3.8(L) 3.9 - 4.8 g/dL [facility] TOTAL PROTEIN 7.2 6.5 - 8.0 g/dL [facility] CALCIUM 9.7 8.4 - 10.3 mg/dL [facility] ALKALINE PHOSPHATASE 138(H) 39 - 117 U/L [facility] TOTAL BILIRUBIN 0.9 0.0 - 1.2 mg/dL [facility] AST 21 0 - 37 U/L [facility] ALT 13 0 - 40 U/L [facility] GLOBULIN 3.4 1 - 4.8 g/dL [facility] EGFR 62 >59 mL/min/1.7 3m2 [facility] Comment:Estimated glomerular filtration rate calculated using the CKD-EPI refit equation. ANION GAP 15 10 - 20 mmol/L [facility] Blood 11/09/2024 9:36 AM EDT 11/09/2024 9:45 AM EDT Solange Jacobs MD LAB BLOOD BKR ORDERABLES Elodia l Result [facility] [address] [place] [address] * (ABNORMAL) Hemoglobin A1c (11/09/2024 9:36 AM EDT) HEMOGLOBIN A1C 7.8(H) 4.3 - 5.8 % [facility] Blood 11/09/2024 9:36 AM EDT 11/09/2024 9:45 AM EDT Solange Jacobs MD LAB BLOOD BKR ORDERABLES Elodia l Result [address] [address] from Last 3 Months or Most Recently Relevant to Health Maintenance Insurance MEDICARE PART A & [place] [address] MEDICARE PART A & [place] [address] [address] [place] [address] MEDICARE PART A & [place] [address] MEDICARE PART A & [place] [address] MEDICARE PART A & [place] [address] MEDICARE PART A & [place] [address] MEDICARE PART A [place] [address] MEDICARE PART A & B Member Subscriber Plan / Payer ( fective 2002-) Name:Zuleyma Gutierrez Member ID:[id number] Relation to Subscriber:Self Name:Zuleyma Gutierrez Subscriber ID:[id number] Payer ID:[id number] Group ID:Not on file Type:Medicare Address: [employer] [address] [place] [phone] [place] [address] MEDICARE PART A & [place] [address] Advance Directives For more information, please contact: [phone] (9AM - 5PM [facility], Friday-Friday) Documents on File Type Date Recorded Patient Home Service Demonstrator Expl anation Healthcare Proxy 08/28/2017 1:28 PM [...] Agent (Proxy form on file) Care Teams Rotational Moulding Operator Relationship Specialty Start Date End Date Solange Jacobs MD [address] [place] [address] PCP - General Internal Medicine 08/26/17 Additional Source Comments The information contained in this document represents components of the legal health record. It is not the complete legal health record.[facility]
--- OUTSIDE RECORDS SUMMARY | 2025-04-15 22:51 | XMS_ITS | Encounter Summary ---
Author Organization [facility] Address [address] [place] [address] Phone Care Team Providers Care Kennel Staff Member Name Role Phone Solange Jacobs MD Primary Care Provider Encounter Details Date Type Department Care Team (Late st Contact Info) Description 05/24/2021 Procedure Pass [facility], [address] [address] Social History Tobacco Use Types Packs/Day Years [...] 05/24/2021 12:34 PM Joan Alan RN * [place] Suicide Severity Rating Scale (Screener/Recent Self-Report) Question [...] documented as of this encounter Care Teams Kennel Staff Member Relationship Specialty Start Date End Date Solange Jacobs MD [address] [place] [address] PCP - General Internal Medicine 08/26/17 documented as of this encounter Additional Source Comments The information contained in this document represents components of the legal health record. It is not the complete legal health record.[facility]
--- OUTSIDE RECORDS SUMMARY | 2025-04-15 22:52 | XMS_ITS | Encounter Summary ---
Author Organization [facility] Address [address] [place] [address] Phone Care Team Providers Care Cash Grain Grower Name Role Phone Solange Jacobs MD Primary Care Provider [phone] Encounter Details Date Type Department Care Team (Latest Contact Info) Description 08/05/2019 Ancillary Orders Virtual Department [address] [place] [address] Bee Barnes MD [address] [place] [address] [email or web address] Social History Tobacco Use Types [...] documented as of this encounter Care Teams Cash Grain Grower Relationship Specialty Start Date End Date Solange Jacobs MD [address] [place] [address] PCP - General Internal Medicine 08/26/17 documented as of this encounter Additional Source Comments The information contained in this document represents components of the legal health record. It is not the complete legal health record.[facility]
== END 2025-04-15 15:31 | disposition home or self-care (01) ==
LOC: HO.HMCH 14:54
PROVIDERS: PCP Internal Medicine; Visit Provider Nurse Practitioner Family
DX: K86.89 Other specified diseases of pancreas (principal)

== ENCOUNTER → 2025-04-15 14:54 | Outpatient (BNVA) | payer MEDICARE, OTHER, SELFPAY | PROVIDERS: PCP Internal Medicine; Visit Provider Nurse Practitioner Family | DX: N64.4 Mastodynia (principal); R19.7 Diarrhea, unspecified; K86.89 Other specified diseases of pancreas | CPT/HCPCS: 99495 ==

== ENCOUNTER 2025-05-01 17:34 | Inpatient (IN) | payer MEDICARE, OTHER, SELFPAY ==
--- OUTSIDE RECORDS SUMMARY | 2019-07-01 10:53 | XMS_ITS | Continuity of Care Document ---
Author Organization [facility] Address [address] [address] Phone Care Team Providers Care High Density Press Laborer Name Role Phone Anton Jean Baptiste DO Unavailable Unavailable Advance Directives Directive Yes / No Effective Date File Name No Information Encounters Encounter Description Practice Location Reason(s) For Visit Diagnoses Date Provider [facility], [address] [place] [address], [id number], [place] tel:[phone] [address] [place] [address] No Information 2019 Markel Walton. [address] [place] [address], [id number], [place]. tel:[phone] Family History Family Member Type Diagnosis Age At Onset No Information Payers Payer name Insurance type Covered constitution party ID Authoriza tion(s) No Information Social History Type Description Quantity Date Captured Comments Sex Female Smoking Status No Information Chief Complaint And Reason For Visit No Information History Of Present Illness Encounter Date Complaint History Of Prese nt Illness No Information Instructions Date Instruction Additional Infor mation No Information Assessments Type Assessment Date No Information
--- NOTE | ~2025-05-01 | CT_ITS ---
CLINICAL HISTORY: AMS CT head without contrast Comparison: CT/REG/SR - CT HEAD/BRAIN WO IV CON - 03/27/25 20:10 EDT Findings: No intra-axial mass, midline shift, hydrocephalus, or acute hemorrhage. Moderate atrophy like change. The visualized paranasal sinuses and mastoid air cells are normal. Enophthalmos. Orbits otherwise unremarkable. There is no acute fracture. IMPRESSION: 1. No acute intracranial findings. This document has been electronically signed by: Tamar Javier MD on 05/02/2025 02:18:23
[2025-05-01 17:46] VITALS: BP 140/76; PULSE 80; O2SAT 98
[2025-05-01 17:57] VITALS: BP 137/68; PULSE 89; RESP 16; TEMP 37; O2SAT 98; BMI 26.5
--- NOTE | 2025-05-01 18:00 | ECG_ITS ---
Test Reason : AMS Blood Pressure : */* mmHG Vent. 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
[2025-05-01 18:15] LABS: Appearance Urine Cloudy; Glucose Urine UA 500 mg/dL (Negative); PH 8.0 (5.0-9.0); Specific Gravity - Urine 1.010 (1.005-1.025); UMIC TRIGGER UACC YES
[2025-05-01 18:30] LABS: Cannabinoid Screen Urine Not Detected (Not Detect)
--- OUTSIDE RECORDS SUMMARY | 2025-05-01 18:43 | XMS_ITS | Data Portability ---
Author Organization [facility], Main Office Address [address] [facility] [facility] [address] [place] [address] Care Team Providers Care Cutch Cleaner Name Role Phone CHIQUIS ESCOBEDO - 2ND [...] Xanax 0.25 mg tablet 024 01/14/20 24 [facility] , [address] [place], [address], 4 18:34:50 Patient TargetsNo targets recorded. Patient InstructionsNo instructions recorded. Reason for Referral None Reported. Problems Name Problem SNOMED Code Status Onset Date Resolution Date Notes Provider Name and Address Organization Details Recorded Time Type 2 diabetes mellitus 50593091 Active 2023 Charis Lowry NP [address] [facility], [place], [address], [facility] 4 13:18:25 Chronic obstructive pulmonary disease 46045506 Active 2023 Charis Lowry NP [address] [facility], [place], [address], [facility] 4 13:18:33 Congestive heart failure 40363233 Active 2023 Charis Lowry NP [address] [facility], [address], [place], [address], [facility] 4 13:18:38 Acute respiratory failure 09824624 Active 2023 Charis Lowry NP [address], [place], [address], [facility] 4 13:18:55 Atrial fibrillation 53629610 Active 2023 Charis Lowry NP [address], [place], [address], [facility] 4 13:22:29 Tremor 69588306 Active 2023 Charis Lowry NP [address], [place], [address], [facility] 4 13:23:07 Mixed anxiety and depressive disorder 829064603 Active 2023 Charis Lowry NP [address], [place], [address], [facility] 4 13:23:16 Chronic pain 18569104 Active 2023 Charis Lowry NP [address], [place], [address], [facility] 4 13:28:13 Anemia 763212566 Active 2023 Charis Lowry NP [address], [place], [address], [facility] 4 13:28:23 Cyst of pancreas 70524006 Active 2023 Charis Lowry NP [address], [place], [address], [facility] 4 13:28:47 Hyperlipidemia 60484393 Active 2023 Charis Lowry NP [address], [place], [address], [facility] 4 13:28:58 Gastroesophage al reflux disease 522020449 Active 2023 Charis Lowry NP [address], [place], [address], [facility] 4 13:29:37 Hypertensive disorder 79648830 Active 2023 Charis Lowry NP [address] [facility], [address], [place], [address], [facility] 4 13:31:15 Problem Notes None recorded. Medical Equipment None Reported. Allergies Allergen ID Allergen Name Allergen Category Reaction Reaction Severity Criticality Documentation Date Start Date Code Code System Note Provider Name and Address Organization Details Recorded Time 14037 aspirin medicatio n other Not available unabletoasse 01/14/2024 1191 RxNorm unkno wn Charis Lowry NP [address] [facility], [address], [place], [address], [facility] 4 12:52:40 87470 cefuroxim e Not available other Not available unabletoasse 01/14/2024 2194 RxNorm unkno seun Lowry NP [address] [facility], [address], [place], [address], [facility] 4 12:53:03 43844 celecoxib medicatio n other Not available unabletoasse 01/14/2024 13893 7 RxNorm unkno wn Charis Lowry NP [address] [facility], [address], [place], [address], [facility] 4 12:53:18 81484 ciproflox acin medicatio n other Not available unabletoasse 01/14/2024 2551 RxNorm unkno seun Lowry NP [address] [facility], [address], [place], [address], [facility] 4 12:53:34 25407 ferrous sulfate medicatio n other Not available unabletoasse 01/14/2024 83445 RxNorm unkno seun Lowry NP [address] [facility], [address], [place], [address], [facility] 4 12:53:47 14455 metformin medicatio n other Not available unabletoasse 01/14/2024 6809 RxNorm unkno wn Charis Lowry NP [address] [facility], [address], [place], [address], [facility] 4 12:54:05 53734 risedrona te sodium medicatio n other Not available unabletoasse 01/14/2024 33468 RxNorm unkno wn Charis Lowry, PANDA [address] [facility], [address], [place], [address], [facility] 4 12:54:29 52653 sertralin e medicatio n other Not available unabletoasse 01/14/2024 56197 RxNorm unkno wn Charis Lowry NP [address] [facility], [address], [place], [address], [facility] 4 12:54:44 36509 bupropion Not available other Not available unabletoasse 01/14/2024 34451 RxNorm unkno wn Charis Lowry NP [address] [facility], [address], [place], [address], [facility] 4 12:55:26 15731 Substance with sulfonami de structure and antibacte rial mechanism of action (substanc e) medicatio n other Not [facility] 01/14/2024 86778 8003 SNOMED unkno wn Charis Lowry NP [address] [facility], [address], [place], [address], [facility] 4 12:55:43 Medications Name Sig Start Date Stop Date Status Note LastModified by Organization Details LastModified Time Xanax 0.25 mg tablet 1 tab 0.25 mg po bid prn anxiety 024 active Not Available Not Available Not Avai lable Vitals Date Recorded Body weight Heart rate Respiratory rate Body temperature Oxygen saturation Systolic And Diastolic Provider Name and Address Organization Details Last Updated DateTime 4 91852.2 2 g 90 /min 20 /min 98 [degF] 95 % 136/88 mm[Hg] Charis Lowry NP [address] [facility], [address], [place], [address], [facility] 4 13:06:27 Social History Question Answer Notes LastModified by Organizat ion Details LastModified Time Tobacco Smoking Status Former Smoker Charis Lowry, PSYCHOLOGIST RESEARCH ASSISTANT [address] [facility], [address], [place], [address], [facility] 01/14/2024 12:59:12 Do You Have An [...] Pneumococcal conjugate PCV 13 6 completed Yazmin Morris [facility] 01/14/2024 12:45:53 influenza, unspecified formulation 2 completed Yazmin Morris null, [facility] 01/14/2024 12:46:10 influenza, unspecified formulation 3 completed Yazmin Morris [facility] 01/14/2024 12:46:17 SARS-COV-2 (COVID-19) vaccine, UNSPECIFIED 1 completed Yazmin Morris [facility] 01/14/2024 12:50:53 SARS-COV-2 (COVID-19) vaccine, UNSPECIFIED 1 completed Yazmin Morris [facility] 01/14/2024 12:51:02 SARS-COV-2 (COVID-19) vaccine, UNSPECIFIED 1 completed Yazmin Morris [facility] 01/14/2024 12:51:09 SARS-COV-2 (COVID-19) vaccine, UNSPECIFIED 2 completed Yazmin Morris [facility] 01/14/2024 12:51:17 SARS-COV-2 (COVID-19) vaccine, UNSPECIFIED 3 completed Yazmin Morris [facility] 01/14/2024 12:51:24 Past Encounters Encounter ID Performer Location Encounter Start Date Encounter Closed Date Diagnosis/Indication Diagnosis SNOMED-CT Code Diagnosis ICD10 Code Diagnosis IMO Codes Diagnosis Note [id number] Charis Lowry NP [address] [address] 01/14/2024 12:46:17 01/15/2024 13:06:34 Acute respiratory failure 47026784 J96.00 prednisone 40 mg po daily x 4 daysfurose mide 40 mg po dailyalbut gibson qid prn sob/wheezi ngsingulai r 10 mg po -9- 4 liters prn sob sat <90%monito r resp statuslabs as above Congestive heart failure 50585843 I50.9 see acute resp failure above Chronic ob structive pulmonary disease 59467761 J44.9 see acute resp failure above Atrial fibrillation 6678 4470 I48.91 eliquis 2.5 mg po bid for acmetoprol ol succ 100 mg po ermonitor cardiac status, vitals Mixed anxi ety and depressive disorder 552395763 F41.8 01/13 alprazolam 0.25 mg po bid prn (pt reports it is sched daily at home on the bottle but has been taking up to 4 times a day)monito r Tremor 05900473 R25.1 hx offno medication smonitor Cyst of pancreas 8915814 0 K86.2 see hpihistory of cyst noted on abd ctseen by GI, no new recfollow up with pcp outpt Hyperlipidemia 77443781 E78.5 atrovastat in 40 mg po daily Gastroesop hageal reflux disease 489490556 K21.9 with nausea/vom iting todaydexil ant 60 mg po cap dailyzofra n 4 mg po q 6 hours prn nausea vomingadd pepcid 20 mg po daily x 2 qweekmonit or Chronic pain 59425808 G8 9.29 diclofenac 4 g topically qid for paintramad ol 50 mg po daily prn q 6 hours painpregab edward 100 mg po q 12 hoursmonit or for pain Anemia 683172536 D64.9 vit c 500 mg with ferrous sulfate 325 mg po dailyfolic acid 1 mg po dialymonit or cbc weekly and for s/s of bleedingcy anocobalam in 1000 mcg po daily Hypertensive disorder 38 554899 I10 nifedipine 60 mg po er dailymonit or vitals, need to titrate Nausea and vomiting 1693 2000 R11.2 with nausea and vomiting todayrecen t workup in hospitalde xilant 60 mg po cap dailyzofra n 4 mg po q 6 hours prn nausea vomingadd pepcid 20 mg po daily x 2 qweekconsi agustin ivf if no response of ermonitorl abs stable today Asthenia 49293929 R53.1 with weaknessPT OT eval and treatmonit or for improvemen t/worsenin g Health Concerns Section Related Observation LastModified by Organization Detai ls LastModified Time None Recorded Concern Status LastModified by Organization Details LastModified Time None Recorded Advance Directives Directive N: Payers Insurance Date Sequence Insurance Name Policy Number Policy Quiles Covered Member ID Quiles Member ID Guarantor Name 01/15/2024 1 MEDICARE [place]: [employer] Zuleyma Gutierrez [id number] Zuleyma Gutierrez 03/24/2024 2 () [id number] Zuleyma Gutierrez Notes Date Note Type Note Provider Name and Address Organization Details Recorded Time 01/14/2024 text/html Pt is seen for an initial intake visit today. PMH: COPD, CHF, DM2, anxiety, hard of hearing, tremors, chronic pain, She is an 88 yo female who presented to [facility] 01/09-01/13/24 with shortness of breath, dizziness, anxiety, and lower extremity swelling felt related to CHF and afib. She is now at [facility] for continued care and rehab. Hospital [...] MOLST: full code Charis Lowry NP [address] [facility], [place], [address], [facility] 01/14/2024 14:11:50 OBGyn Episode No OBEpisode recorded.
--- OUTSIDE RECORDS SUMMARY | 2025-05-01 18:43 | XMS_ITS | Encounter Summary ---
Author Organization [facility] Address [address] [place] [address] Phone Care Team Providers Care Ux Design Manager Name Role Phone Solange Jacobs MD Primary Care Provider [phone] Encounter Details Date Type Department Care Team (Latest Contact Info) Description 03/22/2019 Transcribe Orders [address] [address] Solange Jacobs MD [address] [place] [address] Pure hypercholesterolemia (Primary Dx); Essential [...] (03/22/2019 9:36 AM EDT) HDL 46 mg/dL [facility] Comment: Interpretation <40 mg/dL: Low HDL cholesterol (major risk factor for CHD) Greater than or equal to 60 mg/dL: High HDL cholesterol ( negative risk factor for CHD) HDL - cholesterol is affected by a number of factors, e.g. smoking, excerise, hormones, sex and age. CHOLESTEROL 142 0 - 240 mg/dL [facility] TRIGLYCERIDES 261(H) 30 - 160 mg/dL [facility] LDL 44(L) 50 - 129 mg/dL [facility] Comment: LDL levels in terms of risk for coronary heart disease: <100 mg/dL: Optimal 100-129 mg/dL: Near or above optimal 130-159 mg/dL: Borderline high 160-189 mg/dL: High >190 mg/dL: Very High CARDIAC RISK RATIO 3.1(L) 3.3 - 4.4 C [facility] Blood 03/22/2019 9:36 AM EDT 03/22/2019 10:12 AM EDT us Solange Jacobs MD LAB BLOOD BKR ORDERABLES Elodia kraft Result [address] [address] * (ABNORMAL) Comprehensive metabolic panel (03/22/2019 9:36 AM EDT) SODIUM 140 133 - 146 mmol/L [facility] POTASSIUM 5.0 3.3 - 5.1 mmol/L [facility] CHLORIDE 102 96 - 108 mmol/L [facility] CO2 23 21 - 35 mmol/L [facility] BUN 13 6 - 19 mg/dL [facility] CREATININE 0.70 0.5 - 1.5 mg/dL [facility] GLUCOSE 139(H) 70 - 99 mg/dL [facility] ALBUMIN 4.5 3.9 - 4.8 g/dL [facility] TOTAL PROTEIN 7.7 6.5 - 8.0 g/dL [facility] CALCIUM 10.9(H) 8.4 - 10.3 mg/dL [facility] ALKALINE PHOSPHATASE 80 39 - 117 U/L [facility] TOTAL BILIRUBIN 0.7 0.0 - 1.2 mg/dL [facility] AST 38(H) 0 - 37 U/L [facility] ALT 20 0 - 40 U/L [facility] GLOBULIN 3.2 1 - 4.8 g/dL [facility] EGFR 81 >59 mL/min/1.7 3m2 [facility] Comment:If patient is black, multiply result by 1.159. Estimated glomerular filtration rate calculated using the CKD-EPI equation. ANION GAP 20 10 - 20 mmol/L [facility] Blood 03/22/2019 9:36 AM EDT 03/22/2019 10:12 AM EDT us Solange Jacobs MD LAB BLOOD BKR ORDERABLES Elodia l Result Performing Organization Address City/[facility]/ZIP Co de Phone Number [address] [address] * T4, total (03/22/2019 9:36 AM EDT) THYROXINE 5.9 4.6 - 12.0 ug/dL [facility] Blood 03/22/2019 9:36 AM EDT 03/22/2019 10:12 AM EDT us Solange Jacobs MD LAB BLOOD ORDERABLES Final Re sult Performing Organization Address [facility]/ZIP Co de Phone Number [address] [address] * Microalbumin/creatinine ratio, random urine (03/22/2019 9:36 AM EDT) URINE MICROALBUMIN <1.2 0 - 2.3 mg/dL [facility] URINE CREATININE 33 mg/dL [facility] MICROALB/CRE RATIO NOT CALCULATED 0 - 20 mg/g Cre [facility] Comment:due to Microalbumin <1.2 Urine (Urine) 03/22/2019 9:3 6 AM EDT 03/22/2019 10:12 AM EDT Solange Jacobs MD LAB URINE ORDERABLES Final Re sult Performing Organization Address City/[facility]/ZIP Co de Phone Number [address] [address] * (ABNORMAL) TSH (03/22/2019 9:36 AM EDT) TSH 5.64(H) 0.27 - 4.20 uIU/mL [facility] Blood 03/22/2019 9:36 AM EDT 03/22/2019 10:12 AM EDT Solange Jacobs MD LAB BLOOD BKR ORDERABLES Elodia l Result Performing Organization Address [facility] [[email or web address]] Co de Phone Number [address] [address] * (ABNORMAL) CBC and differential (03/22/2019 9:36 AM EDT) WBC 8.31 3.40 - 11.20 K/uL [facility] RBC 5.31(H) 3.80 - 4.80 M/uL [facility] HGB 16.8(H) 12.0 - 15.0 g/dL [facility] HCT 49.1(H) 36.0 - 46.0 % [facility] PLT 283 130 - 400 K/uL [facility] MCV 92.5 79.0 - 98.0 [facility] MCH 31.6 27.0 - 34.8 pg [facility] MCHC 34.2 31.5 - 36.0 g/dL [facility] RDW 12.8 10.8 - 14.6 % [facility] MPV 10.5 9.4 - 12.4 [facility] NRBC 0.00 0.00 /100 WBCs [facility] ABSOLUTE NRBC 0.00 0.00 K/uL [facility] DIFF METHOD Auto [facility] NEUTS 66.0 45.30 - 77.70 % [facility] LYMPHS 23.0 12.30 - 39.70 % [facility] MONOS 8.9 4.10 - 12.80 % [facility] EOS 1.3 0 - 7.2 % [facility] BASOS 0.6 0 - 2.80 % [facility] Granulocytes, immature (%) 0.2 0.0 - 0.9 % [facility] ABSOLUTE NEUTS 5.48 1.40 - 7.70 K/uL [facility] ABSOLUTE LYMPHS 1.91 0.60 - 3.20 K/uL [facility] ABSOLUTE MONOS 0.74(H) 0.11 - 0.59 K/uL [facility] ABSOLUTE EOS 0.11 0.01 - 0.50 K/uL [facility] ABSOLUTE BASOS 0.05 0.00 - 0.08 K/uL [facility] Granulocytes, immature 0.02 0.00 - 0.05 K/uL [facility] Blood 03/22/2019 9:36 AM EDT 03/22/2019 10:12 AM EDT us Solange Jacobs MD LAB BLOOD BKR ORDERABLES Elodia l Result [address] [address] * (ABNORMAL) Folate (03/22/2019 9:36 AM EDT) FOLIC ACID >20.0(H) 4.2 - 19.9 ng/mL [facility] Blood 03/22/2019 9:36 AM EDT 03/22/2019 10:12 AM EDT Solange Jacobs MD LAB BLOOD BKR ORDERABLES Elodia l Result [address] [address] * Vitamin B12 (03/22/2019 9:36 AM EDT) VITAMIN B12 1,041 232 - 1,245 pg/mL [facility] Blood 03/22/2019 9:36 AM EDT 03/22/2019 10:12 AM EDT us Solange Jacobs MD LAB BLOOD BKR ORDERABLES Elodia l Result Performing Organization Address City/[facility]/ZIP Co de Phone Number [address] [address] * 25-OH vitamin D (03/22/2019 9:36 AM EDT) 25 [place] VIT D (TOTAL) 42 30 - 60 ng/mL [facility] Blood 03/22/2019 9:36 AM EDT 03/22/2019 10:12 AM EDT us Solange Jacobs MD LAB BLOOD BKR ORDERABLES Elodia l Result Performing Organization Address [facility] [[email or web address]] Co de Phone Number [address] [address] documented in this encounter Visit Diagnoses Diagnosis [...] documented as of this encounter Care Teams Ux Design Manager Relationship Specialty Start Date End Date Solange Jacobs MD [address] [place] [phone] PCP - General Internal Medicine 08/26/17 documented as of this encounter Additional Source Comments The information contained in this document represents components of the legal health record. It is not the complete legal health record.[facility]
--- OUTSIDE RECORDS SUMMARY | 2025-05-01 18:43 | XMS_ITS | Encounter Summary ---
Author Organization [facility] Address [address] [place] [address] Phone Care Team Providers Care Continuous Miner Operator Name Role Phone Solange Jacobs MD Primary Care Provider [phone] Encounter Details Date Type Department Care Team (Late st Contact Info) Description 08/05/2019 Ancillary Orders [facility], X-Ray - [address] [address] Bee Barnes MD [address] [place] [id number] [email or web address] Social History Tobacco Use Types Packs/Day [...] spine disc disease. POS - [id number] Bee Branes MD IMG XR SPINE Final Result documented [...] documented as of this encounter Care Teams Continuous Miner Operator Relationship Specialty Start Date End Date Solange Jacobs MD [address] [place] [address] PCP - General Internal Medicine 08/26/17 documented as of this encounter Additional Source Comments The information contained in this document represents components of the legal health record. It is not the complete legal health record.[facility]
--- OUTSIDE RECORDS SUMMARY | 2025-05-01 18:43 | XMS_ITS | Encounter Summary ---
Author Organization [facility] Address [address] [place] [address] Phone Care Team Providers Care Sandblast Operator Name Role Phone Solange Jacobs MD Primary Care Provider [phone] Encounter Details Date Type Department Care Team (Late st Contact Info) Description 03/14/2022 Procedure Pass [facility] Endoscopy Admitting Dept Virtual Department [address] [place] [address] Social History Tobacco Use Types Packs/Day Years [...] documented as of this encounter Care Teams Sandblast Operator Relationship Specialty Start Date End Date Solange Jacobs MD [address] [place] [phone] PCP - General Internal Medicine 08/26/17 documented as of this encounter Additional Source Comments The information contained in this document represents components of the legal health record. It is not the complete legal health record.[facility]
--- OUTSIDE RECORDS SUMMARY | 2025-05-01 18:43 | XMS_ITS | Encounter Summary ---
Author Organization [facility] Address [address] [place] [address] Phone Care Team Providers Care Travelers' Aid Worker Name Role Phone Solange Jacobs MD Primary Care Provider [phone] Encounter Details Date Type Department Care Team (Late st Contact Info) Description 05/24/2021 Procedure Pass [facility], [address] [address] Social History Tobacco Use Types Packs/Day Years [...] 05/24/2021 12:34 PM Joan Alan RN * [place] Suicide Severity Rating Scale (Screener/Recent Self-Report) Question [...] documented as of this encounter Care Teams Travelers' Aid Worker Relationship Specialty Start Date End Date Solange Jacobs MD [address] [place] [address] PCP - General Internal Medicine 08/26/17 documented as of this encounter Additional Source Comments The information contained in this document represents components of the legal health record. It is not the complete legal health record.[facility]
--- OUTSIDE RECORDS SUMMARY | 2025-05-01 18:43 | XMS_ITS | Encounter Summary ---
Author Organization [facility] Address [address] [place] [address] Phone Care Team Providers Care Room Service Supervisor Name Role Phone Solange Jacobs MD Primary Care Provider [phone] Encounter Details Date Type Department Care Team (Late st Contact Info) Description 04/23/2020 Procedure Pass [facility], Ct Scan - [facility] [address] [place] [address] Social History Tobacco Use Types Packs/Day Years [...] documented as of this encounter Care Teams Room Service Supervisor Relationship Specialty Start Date End Date Solange Jacobs MD [address] [place] [phone] PCP - General Internal Medicine 08/26/17 documented as of this encounter Additional Source Comments The information contained in this document represents components of the legal health record. It is not the complete legal health record.[facility]
--- OUTSIDE RECORDS SUMMARY | 2025-05-01 18:43 | XMS_ITS | Encounter Summary ---
Author Organization [facility] Address [address] [place] [address] Phone Care Team Providers Care Pretzel Twister Name Role Phone Solange Jacobs MD Primary Care Provider [phone] Encounter Details Date Type Department Care Team (Late st Contact Info) Description 01/30/2023 Procedure Pass [facility], Ct Scan - [facility] [address] [place] [address] Social History Tobacco Use Types Packs/Day Years [...] documented as of this encounter Care Teams Pretzel Twister Relationship Specialty Start Date End Date Reynaldo, Solange Jacobo MD [address] [place] [address] Drive [address] [place] [phone] PCP - General Internal Medicine 08/26/17 documented as of this encounter Additional Source Comments The information contained in this document represents components of the legal health record. It is not the complete legal health record.[facility]
--- OUTSIDE RECORDS SUMMARY | 2025-05-01 18:43 | XMS_ITS | Encounter Summary ---
Author Organization [facility] Address [address] [place] [address] Phone Care Team Providers Care Mass Spectrometry Specialist Name Role Phone Solange Jacobs MD Primary Care Provider [phone] Encounter Details Date Type Department Care Team (Late st Contact Info) Description 03/13/2022 Procedure Pass [facility], Ct Scan - [facility] [address] [place] [address] Social History Tobacco Use Types Packs/Day Years [...] 9:16 PM EDT Arnold Ellington RN * [place] Suicide Severity Rating Scale (Screener/Recent [...] documented as of this encounter Care Teams Mass Spectrometry Specialist Relationship Specialty Start Date End Date Solange Jacobs MD [address] [place] [phone] PCP - General Internal Medicine 08/26/17 documented as of this encounter Additional Source Comments The information contained in this document represents components of the legal health record. It is not the complete legal health record.[facility]
--- OUTSIDE RECORDS SUMMARY | 2025-05-01 18:43 | XMS_ITS | Encounter Summary ---
Author Organization [facility] Address [address] [place] [address] Phone Care Team Providers Care Lining Stamper Name Role Phone Solange Jacobs MD Primary Care Provider [phone] Encounter Details Date Type Department Care Team (Late st Contact Info) Description 08/26/2017 Procedure Pass [facility], Ct Scan - [facility] [address] [place] [address] Social History Tobacco Use Types Packs/Day Years [...] documented as of this encounter Care Teams Lining Stamper Relationship Specialty Start Date End Date Solange Jacobs MD [address] [place] [address] [place] [phone] PCP - General Internal Medicine 08/26/17 documented as of this encounter Additional Source Comments The information contained in this document represents components of the legal health record. It is not the complete legal health record.[facility]
--- OUTSIDE RECORDS SUMMARY | 2025-05-01 18:43 | XMS_ITS | Encounter Summary ---
Author Organization [facility] Address [address] [place] [address] Phone Care Team Providers Care Rn Psych Name Role Phone Solange Jacobs MD Primary Care Provider [phone] Encounter Details Date Type Department Care Team (Late st Contact Info) Description 10/07/2022 Procedure Pass [facility] [address] [place] [address] Social History Tobacco Use Types Packs/Day Years [...] documented as of this encounter Care Teams Rn Psych Relationship Specialty Start Date End Date Solange Jacobs MD [address] [place] [phone] PCP - General Internal Medicine 08/26/17 documented as of this encounter Additional Source Comments The information contained in this document represents components of the legal health record. It is not the complete legal health record.[facility]
--- OUTSIDE RECORDS SUMMARY | 2025-05-01 18:43 | XMS_ITS | Encounter Summary ---
Author Organization [facility] Address [address] [place] [address] Phone Care Team Providers Care Vamper Name Role Phone Solange Jacobs MD Primary Care Provider [phone] Encounter Details Date Type Department Care Team (Late st Contact Info) Description 08/02/2023 Procedure Pass [facility], Ct Scan - [facility] 30 [place] [address] Social History Tobacco Use Types Packs/Day Years [...] 08/02/2023 1:51 PM Sukumar Contreras RN * [place] Suicide Severity Rating Scale (Screener/Recent Self-Report) Question [...] on filedocumented in this encounter Care Teams Vamper Relationship Specialty Start Date End Date Solange Jacobs MD [address] [place] [address] Drive [address] [place] [phone] PCP - General Internal Medicine 08/26/17 documented as of this encounter Additional Source Comments The information contained in this document represents components of the legal health record. It is not the complete legal health record.[facility]
--- OUTSIDE RECORDS SUMMARY | 2025-05-01 18:43 | XMS_ITS | Encounter Summary ---
Author Organization [facility] Address [address] [place] [address] Phone Care Team Providers Care Clinical Haematologist Name Role Phone Solange Jacobs MD Primary Care Provider [phone] Encounter Details Date Type Department Care Team (Late st Contact Info) Description 03/14/2022 Procedure Pass [facility] Endoscopy Admitting Dept Virtual Department 30 [place] [address] Social History Tobacco Use Types Packs/Day Years [...] documented as of this encounter Care Teams Clinical Haematologist Relationship Specialty Start Date End Date Solange Jacobs MD [address] [place] [phone] PCP - General Internal Medicine 08/26/17 documented as of this encounter Additional Source Comments The information contained in this document represents components of the legal health record. It is not the complete legal health record.[facility]
--- OUTSIDE RECORDS SUMMARY | 2025-05-01 18:43 | XMS_ITS | Clinical Summary ---
Author Organization [facility] Address [address] [place] [address] Phone Care Team Providers Care Asphalt Tar And Gravel Roofer Name Role Phone Solange Jacobs MD Primary Care Provider [phone] Allergies Active Allergy Reactions Criticality Noted Date [...] Active ferrous sulfate 325 mg (65 mg naknek iron) tablet TAKE 1 TABLET BY MOUTH [...] above studies are resulted - PT/OT evaluations -LIVESTOCK LABORER evaluation, patient has passed a bedside nursing [...] Type Department Care Team Description 03/30/2025 Telephone [facility] Infectious Diseases [address] [place] [address] Gildardo Conde MD STAT ID Referral (STAT ID Referral) 03/30/2025 Transcribe Orders [facility] Infectious Diseases [address] [place] [address] Gildardo Conde MD Blister of face, neck, and scalp except eye, infected, initial encounter (Primary Dx) 02/23/2025 Orders Only [facility] [address] [place] [address] Homehealth, Interface ProviderMD from Last [...] EDT) SODIUM 137 133 - 146 mmol/L [facility] POTASSIUM 3.8 3.3 - 5.1 mmol/L [facility] CHLORIDE 100 96 - 108 mmol/L [facility] CO2 26 21 - 35 mmol/L [facility] BUN 14 6 - 19 mg/dL [facility] CREATININE 0.90 0.5 - 1.5 mg/dL [facility] GLUCOSE 177(H) 70 - 99 mg/dL [facility] ALBUMIN 3.8(L) 3.9 - 4.8 g/dL [facility] TOTAL PROTEIN 7.2 6.5 - 8.0 g/dL [facility] CALCIUM 9.7 8.4 - 10.3 mg/dL [facility] ALKALINE PHOSPHATASE 138(H) 39 - 117 U/L [facility] TOTAL BILIRUBIN 0.9 0.0 - 1.2 mg/dL [facility] AST 21 0 - 37 U/L [facility] ALT 13 0 - 40 U/L [facility] GLOBULIN 3.4 1 - 4.8 g/dL [facility] EGFR 62 >59 mL/min/1.7 3m2 [facility] Comment:Estimated glomerular filtration rate calculated using the CKD-EPI refit equation. ANION GAP 15 10 - 20 mmol/L [facility] Blood 11/09/2024 9:36 AM EDT 11/09/2024 9:45 AM EDT us Solange Jacobs MD LAB BLOOD BKR ORDERABLES Elodia l Result [address] [address] * (ABNORMAL) Hemoglobin A1c (11/09/2024 9:36 AM EDT) HEMOGLOBIN A1C 7.8(H) 4.3 - 5.8 % [facility] Blood 11/09/2024 9:36 AM EDT 11/09/2024 9:45 AM EDT us Solange Jacobs MD LAB BLOOD BKR ORDERABLES Elodia l Result [facility] [address] [place], [place] [phone] from Last 3 Months or Most Recently Relevant to Health Maintenance Insurance MEDICARE PART A & B Member Subscriber Plan / Payer (Ef fective 2002-Present) Name:Zuleyma Gutierrez Member ID:[id number] Relation to Subscriber:Self Name:Zuleyma Gutierrez Subscriber ID:[id number] Payer ID:[id number] Group ID:Not on file Type:Medicare Address: [facility] [employer] [facility] [address] [facility] [place] [address] [facility] [place] [address] MEDICARE PART A [place] [address] MEDICARE PART A & B Member Subscriber Plan / Payer ( fective 2002-Present) Name:Zuleyma Gutierrez Member ID:[id number] Relation to Subscriber:Self Name:Zuleyma Gutierrez Subscriber ID:[id number] Payer ID:[id number] Group ID:Not on file Type:Medicare Address: [employer] [address] [place] [phone] [place] [address] MEDICARE PART A & B [facility] [place] [address] MEDICARE PART A [place] [address] MEDICARE PART A & B [facility] Address: [facility] ATTN: CLAIMS [address] [address] [place] [address] MEDICARE PART A & [place] [address] MEDICARE PART A [place] [address] MEDICARE PART A & B [facility] [place] [address] Advance Directives For more information, please contact: [phone] (9AM - 5PM [facility], Friday-Friday) Documents on File Type Date Recorded Patient Spring Up Supervisor Expl anation Healthcare Proxy 08/28/2017 1:28 PM [...] Agent (Proxy form on file) Care Teams Asphalt Tar And Gravel Roofer Relationship Specialty Start Date End Date Solange Jacobs MD [address] [place] [phone] PCP - General Internal Medicine 08/26/17 Additional Source Comments The information contained in this document represents components of the legal health record. It is not the complete legal health record.[facility]
--- OUTSIDE RECORDS SUMMARY | 2025-05-01 18:43 | XMS_ITS | Encounter Summary ---
Author Organization [facility] Address [address] [place] [address] Phone Care Team Providers Care Stunt Driver Name Role Phone Solange Jacobs MD Primary Care Provider Encounter Details Date Type Department Care Team (Latest Contact Info) Description 07/16/2019 Transcribe Orders Virtual Department 30 [place] [address] Eu, Delia Loja MD [address] [place] [address] Primary localized osteoarthritis of pelvic region and [...] documented as of this encounter Care Teams Stunt Driver Relationship Specialty Start Date End Date Reynaldo, Solange Jacobo MD [address] [place] [address] [place] [phone] PCP - General Internal Medicine 08/26/17 documented as of this encounter Additional Source Comments The information contained in this document represents components of the legal health record. It is not the complete legal health record.[facility]
--- OUTSIDE RECORDS SUMMARY | 2025-05-01 18:43 | XMS_ITS | Encounter Summary ---
Author Organization [facility] Address [address] [place] [address] Phone Care Team Providers Care Department Store Manager Name Role Phone Solange Jacobs MD Primary Care Provider [phone] Encounter Details Date Type Department Care Team (Late st Contact Info) Description 10/06/2022 Procedure Pass [facility], Ct Scan - [facility] 30 [place] [address] Social History Tobacco Use Types Packs/Day Years [...] 5:41 PM EDT Manolo Sales RN * [place] Suicide Severity Rating Scale (Screener/Recent Self-Report) Question [...] as of this encounter Care Teams Department Store Manager Relationship Specialty Start Date End Date Solange Jacobs MD [address] [place] [address] PCP - General Internal Medicine 08/26/17 documented as of this encounter Additional Source Comments The information contained in this document represents components of the legal health record. It is not the complete legal health record.[facility]
--- OUTSIDE RECORDS SUMMARY | 2025-05-01 18:43 | XMS_ITS | Encounter Summary ---
Author Organization [facility] Address [address] [place] [address] Phone Care Team Providers Care Drum Sander Offbearer Name Role Phone Solange Jacobs MD Primary Care Provider [phone] Encounter Details Date Type Department Care Team (Late st Contact Info) Description 03/22/2024 Procedure Pass [facility] [address] [place] [address] Social History Tobacco Use Types Packs/Day Years [...] on filedocumented in this encounter Care Teams Drum Sander Offbearer Relationship Specialty Start Date End Date Solange Jacobs MD [address] [place] [address] [place] [phone] PCP - General Internal Medicine 08/26/17 documented as of this encounter Additional Source Comments The information contained in this document represents components of the legal health record. It is not the complete legal health record.[facility]
--- OUTSIDE RECORDS SUMMARY | 2025-05-01 18:43 | XMS_ITS | Encounter Summary ---
Author Organization [facility] Address [address] [place] [address] Phone Care Team Providers Care Commercial Carpet Installer Name Role Phone Solange Jacobs MD Primary Care Provider [phone] Reason for Referral * Physical Therapy (Routine) - Closed Specialty Diagnoses / Procedures Referred By Contac t Referred To Contact Physical Therapy Diagnoses Encounter for rehabilitation System, Provider Not In, [facility] [id number] [place] [address] Phone: tel: Referral ID Status Reason Start Date Expiration Date Visits Re quested Visits Authorized [id number] Closed 07/01/2018 06/01/2019 99 99 Encounter Details Date Type Department Care Team (Latest Contact Info) Description 06/10/2018 Transcribe Orders [facility] [address] [place] [address] Solange Jacobs MD [address] [place] [phone] Encounter for rehabilitation (Primary Dx) Social [...] Diagnoses Orde r Schedule Ambulatory referral to [facility] Physical Therapy Outpatient Referral Routine Encounter [...] documented as of this encounter Care Teams Commercial Carpet Installer Relationship Specialty Start Date End Date Solange Jacobs MD [address] [facility] [address] [place] [phone] PCP - General Internal Medicine 08/26/17 documented as of this encounter Additional Source Comments The information contained in this document represents components of the legal health record. It is not the complete legal health record.[facility]
--- OUTSIDE RECORDS SUMMARY | 2025-05-01 18:43 | XMS_ITS | Encounter Summary ---
Author Organization [facility] Address [address] [place] [address] Phone Care Team Providers Care Credentialing Specialist Name Role Phone Solange Jacobs MD Primary Care Provider [phone] Encounter Details Date Type Department Care Team (Late st Contact Info) Description 01/31/2023 Procedure Pass [facility]oscopy Admitting Dept Virtual Department [address] [place] [address] Social History Tobacco Use Types Packs/Day Years [...] 5:21 PM EDT America Giles, JUAN * [place] Suicide Severity Rating Scale (Screener/Recent Self-Report) Question [...] documented as of this encounter Care Teams Credentialing Specialist Relationship Specialty Start Date End Date Solange Jacobs MD [address] [place] [address] [place] [phone] PCP - General Internal Medicine 08/26/17 documented as of this encounter Additional Source Comments The information contained in this document represents components of the legal health record. It is not the complete legal health record.[facility]
--- OUTSIDE RECORDS SUMMARY | 2025-05-01 18:43 | XMS_ITS | Encounter Summary ---
Author Organization [facility] Address [address] [place] [address] Phone Care Team Providers Care Custody Assistant Name Role Phone Solange Jacobs MD Primary Care Provider Encounter Details Date Type Department Care Team (Latest Contact Info) Description 05/12/2019 Transcribe Orders [facility] [address] [address] Solange Jacobs MD [address] [place] [address] Hypercalcemia (Primary Dx); Nonspecific abnormal [...] EST) TSH 10.10(H) 0.27 - 4.20 uIU/mL [facility] Blood 05/12/2019 10:2 1 AM EST 05/12/2019 10:42 AM EST us Solange Jacobs MD LAB BLOOD BKR ORDERABLES Elodia l Result Performing Organization Address [facility]/ZIP Co de Phone Number [address] [address] * T4, total (05/12/2019 10:21 AM EST) THYROXINE 5.6 4.6 - 12.0 ug/dL [facility] Blood 05/12/2019 10:2 1 AM EST 05/12/2019 10:42 AM EST us Solange Jacobs MD LAB BLOOD ORDERABLES Final Re sult Performing Organization Address [facility] Co de Phone Number [address] [address] * Calcium (05/12/2019 10:21 AM EST) CALCIUM 9.8 8.4 - 10.3 mg/dL [facility] Blood 05/12/2019 10:2 1 AM EST 05/12/2019 10:42 AM EST us Solange Jacobs MD LAB BLOOD BKR ORDERABLES Elodia l Result Performing Organization Address [facility] Co de Phone Number [address] [address] * (ABNORMAL) Parathyroid hormone (PTH) (05/12/2019 10:21 AM EST) PARATHYROID HORMONE 79(H) 15 - 65 pg/mL [facility] Blood 05/12/2019 10:2 1 AM EST 05/12/2019 10:43 AM EST us Solange Jacobs MD LAB BLOOD BKR ORDERABLES Elodia l Result [facility] 30 [place] [address] documented in this encounter Visit Diagnoses Diagnosis [...] documented as of this encounter Care Teams Custody Assistant Relationship Specialty Start Date End Date Solange Jacobs MD [address] [place] [phone] PCP - General Internal Medicine 08/26/17 documented as of this encounter Additional Source Comments The information contained in this document represents components of the legal health record. It is not the complete legal health record.[facility]
--- OUTSIDE RECORDS SUMMARY | 2025-05-01 18:43 | XMS_ITS | Encounter Summary ---
Author Organization [facility] Address [address] [place] [address] Phone Care Team Providers Care Senior Research Manager Name Role Phone Solange Jacobs MD Primary Care Provider [phone] Encounter Details Date Type Department Care Team (Late st Contact Info) Description 11/09/2024 Transcribe Orders [address] [address] Solange Jacobs MD [address] [place] [address] Social History Tobacco Use Types [...] on filedocumented in this encounter Care Teams Senior Research Manager Relationship Specialty Start Date End Date Solange Jacobs MD [address] [place] [address] [place] [phone] PCP - General Internal Medicine 08/26/17 documented as of this encounter Additional Source Comments The information contained in this document represents components of the legal health record. It is not the complete legal health record.[facility]
--- OUTSIDE RECORDS SUMMARY | 2025-05-01 18:43 | XMS_ITS | Encounter Summary ---
Author Organization [facility] Address [address] [place] [address] Phone Care Team Providers Care Division Commander Name Role Phone Solange Jacobs MD Primary Care Provider [phone] Encounter Details Date Type Department Care Team (Latest Contact Info) Description 08/05/2019 Ancillary Orders Virtual Department 30 [place] [address] Bee Barnes MD [address] [place] [address] [email or web address] Lumbar [email or web address] Social History Tobacco Use Types [...] documented as of this encounter Care Teams Division Commander Relationship Specialty Start Date End Date Solange Jacobs MD [address] [place] [address] PCP - General Internal Medicine 08/26/17 documented as of this encounter Additional Source Comments The information contained in this document represents components of the legal health record. It is not the complete legal health record.[facility]
--- OUTSIDE RECORDS SUMMARY | 2025-05-01 18:43 | XMS_ITS | Encounter Summary ---
Author Organization [facility] Address [address] [place] [address] Phone Care Team Providers Care Gambling Floor Supervisor Name Role Phone Solange Jacobs MD Primary Care Provider [phone] Encounter Details Date Type Department Care Team (Late st Contact Info) Description 05/24/2021 Procedure Pass [facility], Ct Scan - [facility] [address] [place] [address] Social History Tobacco Use Types Packs/Day Years [...] 05/24/2021 12:34 PM Joan Alan RN * [place] Suicide Severity Rating Scale (Screener/Recent Self-Report) Question [...] documented as of this encounter Care Teams Gambling Floor Supervisor Relationship Specialty Start Date End Date Solange Jacobs MD [address] [place] [phone] PCP - General Internal Medicine 08/26/17 documented as of this encounter Additional Source Comments The information contained in this document represents components of the legal health record. It is not the complete legal health record.[facility]
--- OUTSIDE RECORDS SUMMARY | 2025-05-01 18:43 | XMS_ITS | Encounter Summary ---
Author Organization [facility] Address [address] [place] [address] Phone Care Team Providers Care Roll Forming Machine Set Up Mechanic Name Role Phone Solange Jacobs MD Primary Care Provider [phone] Reason for Referral * MRI/CAT Scan - Closed Specialty Diagnoses / Procedures Referred By Contac t Referred To Contact Radiology Diagnoses Pancreatic cyst Procedures MRI Cholangiopancreatography (MRCP) Oumou Moser PA [address] [place] [address] Phone: tel: fax: Referral ID Status Reason Start Date Expiration Date Visits Re quested Visits Authorized [id number] Closed 03/22/2024 03/22/2025 1 1 Encounter Details Date Type Department Care Team (Latest Contact Info) Description 03/22/2024 Transcribe Orders Virtual Department 30 [place] [address] Oumou Moser PA [address] [place] [address] Pancreatic cyst (Primary Dx) Social History Tobacco [...] pancreas documented in this encounter Care Teams Roll Forming Machine Set Up Mechanic Relationship Specialty Start Date End Date Po, Solange Jacobo MD [address] [place] [address] Drive [address] [place] [address] PCP - General Internal Medicine 08/26/17 documented as of this encounter Additional Source Comments The information contained in this document represents components of the legal health record. It is not the complete legal health record.[facility]
--- OUTSIDE RECORDS SUMMARY | 2025-05-01 18:43 | XMS_ITS | Encounter Summary ---
Author Organization [facility] Address [address] [place] [address] Phone Care Team Providers Care Digital Camera Technician Name Role Phone Solange Jacobs MD Primary Care Provider Encounter Details Date Type Department Care Team (Late st Contact Info) Description 07/16/2019 Ancillary Orders [facility], X-Ray - [address] [place] [address] Solange Jacobs MD [address] [place] [address] Pain Social History Tobacco Use [...] documented as of this encounter Care Teams Digital Camera Technician Relationship Specialty Start Date End Date Po, Solange Jacobo MD [address] [place] [address] [place] [phone] PCP - General Internal Medicine 08/26/17 documented as of this encounter Additional Source Comments The information contained in this document represents components of the legal health record. It is not the complete legal health record.[facility]
--- OUTSIDE RECORDS SUMMARY | 2025-05-01 18:43 | XMS_ITS | Encounter Summary ---
Author Organization [facility] Address [address] [place] [address] Phone Care Team Providers Care Stock Or Delivery Clerk Name Role Phone Solange Jacobs MD Primary Care Provider Encounter Details Date Type Department Care Team (Late st Contact Info) Description 03/10/2021 Procedure [facility], Ct Scan - [facility] [address] [place] [address] Social History Tobacco Use Types Packs/Day Years [...] 12:20 PM EDT Katie Hugo, JUAN * [place] Suicide Severity Rating Scale (Screener/Recent Self-Report) Question [...] documented as of this encounter Care Teams Stock Or Delivery Clerk Relationship Specialty Start Date End Date Solange Jacobs MD [address] [place] [phone] PCP - General Internal Medicine 08/26/17 documented as of this encounter Additional Source Comments The information contained in this document represents components of the legal health record. It is not the complete legal health record.[facility]
--- OUTSIDE RECORDS SUMMARY | 2025-05-01 18:43 | XMS_ITS | Encounter Summary ---
Author Organization [facility] Address [address] [place] [phone] Phone Care Team Providers Care Looper Fixer Name Role Phone Solange Jacobs MD Primary Care Provider [phone] Encounter Details Date Type Department Care Team (Late st Contact Info) Description 10/10/2022 Procedure Pass [facility], Ct Scan - [facility] [address] [place] [address] Social History Tobacco Use Types Packs/Day Years [...] documented as of this encounter Care Teams Looper Fixer Relationship Specialty Start Date End Date Solange Jacobs MD [address] [place] [address] PCP - General Internal Medicine 08/26/17 documented as of this encounter Additional Source Comments The information contained in this document represents components of the legal health record. It is not the complete legal health record.[facility]
[2025-05-01 18:48] LABS: UACC Culture Trigger YES
[2025-05-01 18:59] LABS: INTERNATIONAL NORM RATIO 1.3 (0.9-1.1); Prothrombin Time 16.3 SEC (11.2-13.5)
[2025-05-01 19:14] LABS: Alanine Aminotransferase 11 U/L (0-31); Albumin Level 4.3 g/dL (3.5-5.0); Alkaline Phosphatase 85 U/L (39-117); Anion Gap 14 (12-20); Aspartate Amino Transferase 30 U/L (5-31); Blood Urea Nitrogen 12 mg/dL (9-16); Calcium 9.9 mg/dL (8.4-10.2); Carbon Dioxide 25 mmol/L (22-29); Chloride 110 mmol/L (96-108); Creatinine Clr Calc Pharmacy 26.0; Estimated Glomerular Filt Rate 46; Potassium 3.5 mmol/L (3.3-5.1); Sodium 145 mmol/L (135-145); Total Protein 7.4 g/dL (6.5-8.0)
[2025-05-01 19:20] LABS: NT Pro B Type Natriuretic Pept 2932.8 pg/mL (<300); Troponin-I High Sensitivity 8.5 ng/L (<3.5-17.0)
[2025-05-01 19:22] LABS: Hematocrit 35.6 % (37.0-47.0); Hemoglobin 10.3 g/dl (12.0-16.0); Imm Gran Abs Auto 0.03 X10*3/uL (0.00-0.03); Imm Gran Pct Auto 0.4 % (0.0-0.4); Lymphocytes Absolute Auto 1.7 X10*3/uL (1.2-4.9); MANUAL DIFF FLAG SCAN; Mean Corpuscular HGB Conc 28.9 g/dl (31.0-35.0); Mean Corpuscular Hemoglobin 21.7 pg (27.0-33.0); Mean Corpuscular Volume 75.1 fL (80.0-98.0); NRBC Abs Auto 0.000 X10*3/uL (0.0-0.012); NRBC Pct Auto 0.0 /100WBC (0.0-0.2); PLT CLUMP 1; Red Blood Count 4.74 X10*6/uL (4.20-5.50); SCAN SMEAR FLAG 1
[2025-05-01 19:25] VITALS: BP 154/83; PULSE 90; RESP 18; O2SAT 96
--- NOTE | 2025-05-01 19:35 | PC.NURSE ---
Enrique son called whom wanted to share information about pt. pt was confused on phone with him earlier today w/ increased anxiety, accidentally left phone on while neighbor came into apt. Pt living in [facility], neighbor whom patient entrusts w/ her care was actively trying to get patient to not call 911 / solicit medical advice because her children will put her in a longterm and never see me again . Enrique [phone] in [place] last physically saw patient in March is available to answer any additional questions if needed.
[2025-05-01 19:38] LABS: Lipase 22 U/L (8-78)
[2025-05-01 20:08] LABS: Platelet Count 320 X10*3/uL (160-400); White Blood Count 7.7 X10*3/uL (4.8-10.8)
[2025-05-01 20:08] LABS: Resp Syncy Virus RNA Qual PCR NEGATIVE (Negative); SARS COV2 PCR INHOUSE NEGATIVE (Negative)
--- NOTE | 2025-05-01 22:01 | ED.AMS ---
HPI - Altered Mental Status General Chief Complaint: Altered Mental Status Stated Complaint: anxiety, confusion x1 year, worse today Time Seen by Provider: 05/01/25 21:58 Source: patient and EMS Mode of arrival: EMS Limitations: altered mental status History of Present Illness ED Provider: Leandro ARELLANO HPI narrative: The patient is an 89-year-old female with a history of COPD, CHF, dementia, paroxysmal AFib, pancreatitis, diabetes, TIA, GERD, hyperlipidemia, and hypertension, brought in by ambulance for acute change in mental status described as confusion as noted by her neighbor, who activated EMS. She reports associated urinary frequency without dysuria, and nausea for which she received antiemetics upon arrival. The patient denies associated chest pain, shortness of breath, cough, abdominal pain, vomiting, or diarrhea. She endorses increased urinary frequency increased compared to her baseline frequent urination secondary to furosemide treatment. Related Data Home Medications ?Medication ?Instructions ?Recorded ?Confirmed metoprolol succinate 50 mg 50 mg PO DAILY 08/01/24 05/01/25 tablet,extended release 24 hr albuterol sulfate 90 mcg/actuation 1 inh inhalation QID PRN Shortness 02/21/25 05/01/25 aerosol inhaler Of Breath Or Wheezing digoxin 125 mcg (0.125 mg) tablet 125 mcg PO MOWEFR 02/21/25 05/01/25 empagliflozin 25 mg tablet 25 mg PO DAILY 02/21/25 05/01/25 Held on 04/13/25. Instructions: Resume on 04/20/25. meclizine 12.5 mg tablet 12.5 mg PO TID PRN Vertigo 02/21/25 05/01/25 tramadol 50 mg tablet 50 mg PO BID PRN pain 02/21/25 05/01/25 diclofenac sodium 1 % topical gel 1 ea topical QID PRN Pain 03/25/25 05/01/25 nystatin 100,000 unit/gram topical 1 appl topical DAILY 03/25/25 05/01/25 powder sitagliptin 25 mg tablet 25 mg PO DAILY 03/25/25 05/01/25 Previous Rx's ?Medication ?Instructions ?Recorded PEDIATRIC FRONT WHEELED WALKER #1 ea 09/18/23 lancets 28 gauge (FreeStyle #100 ea 11/17/23 Lancets) ascorbic acid (vitamin C) 500 mg 500 mg PO DAILY #90 tabs 08/04/24 tablet (Vitamin C) cholecalciferol (vitamin D3) 25 25 mcg PO DAILY #90 caps 08/04/24 mcg (1,000 unit) capsule cyanocobalamin (vitamin B-12) 1,000 mcg PO DAILY #90 tabs 08/04/24 1,000 mcg tablet (Vitamin B-12) incontinence pad, liner, disp #60 ea 08/19/24 blood sugar diagnostic (FreeStyle #100 ea 09/16/24 Lite Strips) Adult pull ups #300 ea 12/10/24 atorvastatin 40 mg tablet (Lipitor) 40 mg PO BEDTIME #90 tabs 01/10/25 umeclidinium 62.5 mcg-vilanterol 1 inh inhalation DAILY #3 ea 01/10/25 25 mcg/actuation powdr for inhalation (Anoro Ellipta) tamsulosin 0.4 mg capsule 0.4 mg PO BEDTIME 90 days #90 caps 01/24/25 pregabalin 100 mg capsule 100 mg PO Q12H 31 days #62 caps 01/26/25 alprazolam 0.25 mg tablet 0.25 mg PO DAILY PRN anxiety #20 02/01/25 tabs famotidine 40 mg tablet 40 mg PO BEDTIME #90 tabs 02/02/25 zolpidem 5 mg tablet 5 mg PO BEDTIME PRN insomnia #30 03/18/25 tabs amoxicillin 875 mg-potassium 1 tab PO Q12H 5 days #10 tabs 04/13/25 clavulanate 125 mg tablet oxycodone 5 mg tablet 5 mg PO Q6H PRN Pain, 04/13/25 Moderate(Pain Scale 4-6) 3 days #5 tabs ropinirole 0.25 mg tablet 0.25 mg PO BEDTIME 30 days #30 tabs 04/13/25 furosemide 40 mg tablet 40 mg PO DAILY #90 tabs 04/15/25 Allergies Allergy/AdvReac Type Severity Reaction Status Date / Time ciprofloxacin Allergy Severe unknown Verified 05/01/25 18:00 aspirin (Aspirin) Allergy Unknown UNKNOWN Verified 05/01/25 18:00 cefuroxime Allergy Unknown Unknown Verified 05/01/25 18:00 celecoxib (From Celebrex) Allergy Unknown UNKNOWN Verified 05/01/25 18:00 metformin Allergy Unknown diarrhea Verified 05/01/25 18:00 risedronate sodium (From Allergy Unknown UNKNOWN Verified 05/01/25 18:00 Actonel) Sulfa (Sulfonamide Allergy Unknown unknown Verified 05/01/25 18:00 Antibiotics) bupropion AdvReac Intermediate tremor Verified 05/01/25 18:00 ferrous sulfate AdvReac Intermediate tremors Verified 05/01/25 18:00 sertraline AdvReac Intermediate tremors Verified 05/01/25 18:00 Review of Systems Review of Systems: Yes all other systems are reviewed and are negative [facility] Past Medical History Medical History (Updated 05/01/25 @ 22:38 by Leandro Higginbotham PA-C) Diverticulitis Contusion of second toe of left foot Dizziness and giddiness Yeast infection of the skin Generalized abdominal pain Cystitis Weakness Atrial fibrillation with RVR Acute urinary retention Acute diverticulitis of intestine Atrial fibrillation with RVR Acute respiratory failure with hypoxia CHF (congestive heart failure) Asthma Exercise hypoxemia Weakness Nausea & vomiting Hypokalemia Hypomagnesemia Diarrhea Hearing difficulty Diverticular disease Diabetes mellitus Dyspnea on exertion History of gastrointestinal diverticular hemorrhage COVID-19 virus infection Rectal bleeding Medicare annual wellness visit, initial Hip pain, left Patellar sleeve fracture of right knee Lipoma of lower back Knee pain, right Nausea and vomiting Coarse tremors Shoulder pain, right Hospital discharge follow-up Failure to thrive in adult Mass on back Constipation Tinea corporis Nausea Right wrist pain Left knee pain Left hip pain Toe pain, left Breast cancer screening by mammogram TSH elevation Urinary frequency UTI (urinary tract infection) Urinary incontinence Type 2 diabetes mellitus with hyperglycemia Toe fracture, left Pancreatic cyst Osteoporosis Peptic ulcer disease Urinary incontinence Rectal incontinence GERD (gastroesophageal reflux disease) Obesity (BMI 30-39.9) Bile salt-induced diarrhea Vaginal prolapse Renal artery stenosis Asthma Lumbar degenerative disc disease Insomnia TIA (transient ischemic attack) Hyperlipidemia, unspecified Essential hypertension Surgical History Hx of colonoscopy History of esophagogastroduodenoscopy (EGD) History of removal of cyst (~10/17/21) History of hemorrhoidectomy History of colectomy History of section History of hysterectomy History of appendectomy History of cholecystectomy Family History Family History Father Cancer Arterial thrombosis Mother Multiple sclerosis Muscular dystrophy Hypertension Depression Chronic mental illness Mental health disorder Brother No problems noted. Brother Gangrene Sister No problems noted. Son No problems noted. Son No problems noted. Son No problems noted. Son No problems noted. Daughter No problems noted. Daughter No problems noted. Daughter No problems noted. Social History Social History Household Members: None Housing: Apartment Do you presently have visiting nurse or other home services: Yes Alcohol intake: former Comment: 1:1 sitter. Patient Tobacco Use Status: Former Tobacco user Tobacco use type: Cigarette Years Smoked: 22 Smoked in Last 30 Days: No e-Cigarette/Vaping Use: Former Use Second Hand Smoke Exposure: Yes Use of substances other than those prescribed or required for medical reasons: No Advance Directives: Yes Advance Directives on File: Yes Advance Directives Date on File: 08/11/23 Do you have a plan to hurt others: No Plan service: No Current occupational status: disabled Current occupational exposures/hazards: No Cognitive needs: Yes (walker) Hearing needs: Yes Vision needs: Yes (Glasses) Physical Exam ED Vital Signs: Vital Signs - 24 hr 05/01/25 17:57 05/01/25 19:25 05/01/25 22:29 Temperature 98.6 F 97.6 F Pulse Rate 89 90 77 Respiratory Rate 16 18 12 Blood Pressure 137/68 154/83 H 140/75 H Pulse Oximetry 98 96 94 Oxygen Delivery Method Room Air Room Air Room Air 05/01/25 23:36 05/02/25 00:00 05/02/25 02:00 Temperature Pulse Rate 80 80 76 Respiratory Rate 18 17 Blood Pressure 162/79 H Pulse Oximetry Oxygen Delivery Method 05/02/25 02:39 Temperature Pulse Rate Respiratory Rate 20 Blood Pressure Pulse Oximetry Oxygen Delivery Method BMI result Body Mass Index 26.5 CONSTITUTIONAL: The patient appears non-toxic, well nourished and in no acute distress. Vital signs as documented. HEAD: Atraumatic, normocephalic. EYES: EOMs grossly intact, pupils equal, conjunctiva clear, no exudate. ENT: Nares patent, no discharge. Airway patent, no audible stridor, visible mucosa is pink but dry with mild cracking, no other lesions noted. NECK: Trachea is midline, no obvious masses or gross abnormalities. CHEST: Symmetric movement, normal appearance. LUNGS: LS present and CTAB, no w/r/r. Non-labored work of breathing. CARDIAC: Regular Rhythm, S1/S2 appreciated, no murmurs, rubs or gallops. ABDOMEN: Abdomen soft and non-tender x4 quadrants, mild suprapubic tenderness, negative rebound, no palpable masses or organomegaly. : Deferred. EXTREMITIES: Normal tone, moves all extremities spontaneously without reported pain. No obvious acute injury or deformity noted. NEURO: Alert and oriented x3, CN II-XII appear grossly intact. Cerebellar Functioning grossly intact. No obvious sensory or motor deficits. Speech clear and appropriate. PSYCH: normal affect, appropriate eye contact, fluid speech, with appropriate response to questioning. No reported suicidality or homicidality. SKIN: Warm, dry, color appropriate, normal turgor. No rashes noted. NIH Stroke Scale Internal: Initial- Upon Arrival Level of Consciousness: Alert Level of Consciousness Questions: Answers both questions correctly Level of Consciousness Commands: Performs both tasks correctly Best Gaze: Normal Visual: No visual loss Facial Palsy: Normal Motor Arm (Right): No drift Motor Arm (Left): No drift Motor Leg (Right): No drift Motor Leg (Left): No drift Limb Ataxia: Absent Sensory: Normal Best Language: No aphasia Dysarthia: Normal Extinction and Inattention: No abnormality Score: 0 Medications Administered Generic Name Dose Route Start Last Admin Trade Name Freq PRN Reason Stop Dose Admin Alprazolam 0.25 mg 05/01/25 22:21 05/02/25 01:32 Alprazolam 0.25 Mg Tablet PO 0.25 mg DAILY PRN Administration Anxiety Famotidine 40 mg 05/01/25 22:30 05/01/25 22:40 Famotidine 20 Mg Tablet PO 40 mg BEDTIME JAREK Administration Ropinirole HCl 0.25 mg 05/01/25 22:30 05/01/25 22:38 Ropinirole Hcl 0.25 Mg Tablet PO 0.25 mg BEDTIME JAREK Administration Tamsulosin HCl 0.4 mg 05/01/25 22:30 05/01/25 22:40 Tamsulosin Hcl 0.4 Mg Capsule PO 0.4 mg BEDTIME JAREK Administration Zolpidem Tartrate 5 mg 05/01/25 22:21 05/01/25 22:39 Zolpidem Tartrate 5 Mg Tablet PO 5 mg BEDTIME PRN Administration Insomnia Discontinued Medications Generic Name Dose Route Start Last Admin Trade Name Román PRN Reason Stop Dose Admin Sodium Chloride 1,000 mls @ 999 mls/hr 05/01/25 22:15 05/01/25 23:57 Ns IV 05/01/25 23:15 Infused .Q1H1M JAREK Infusion Piperacillin Sod/Tazobactam 50 mls @ 100 mls/hr 05/01/25 22:17 05/01/25 23:19 Sod 3.375 gm/ Sodium Chloride IV 05/01/25 22:46 Infused ONCE ONE Infusion Ondansetron HCl 4 mg 05/01/25 20:50 05/01/25 20:51 Ondansetron Odt 4 Mg Tab.Rapdis TRANSLINGU 05/01/25 20:51 4 mg ONCE ONE Administration Medical Decision Making Medical Decision Making MDM Narrative: 10:19 PM 05/01/2025 (Mariam ARELLANO): The patient is an 89-year-old female with a history of COPD, CHF, dementia, paroxysmal AFib, pancreatitis, diabetes, TIA, GERD, hyperlipidemia, and hypertension, brought in by ambulance for acute change in mental status described as confusion as noted by her neighbor, who activated EMS. She reports associated urinary frequency without dysuria, and nausea for which she received antiemetics upon arrival. The patient denies associated chest pain, shortness of breath, cough, abdominal pain, vomiting, or diarrhea. She endorses increased urinary frequency increased compared to her baseline frequent urination secondary to furosemide treatment. On exam patient is noted to have mild tenderness of the suprapubic area, negative rebound, as well as dry mucous membranes with cracking of the tongue, no other acute findings. Per chart review the patient was recently admitted for pancreatitis on 04/13, denies any epigastric tenderness or pain. The patient reports she has a scheduled gastroenterology appointment 05/03. The patient reports she lives alone at home with the cat. The patient's laboratory evaluation today is largely reassuring, no leukocytosis, significant anemia, electrolyte abnormality, or FLACO. The patient's lipase is normal at 22, BNP is elevated at 3000, no old for comparison, lung sounds are clear, no rales, no increased work of breathing, no hypoxia on room air. The patient's viral swabs are negative for influenza, COVID, and RSV, urine toxicity is negative. The patient's urinalysis however shows glucosuria as well as moderate blood, large leukocyte esterase, and 3+ bacteria. The patient is likely suffering from acute change in mental status secondary to UTI. The patient will be treated with Zosyn as she has multiple allergies including cephalosporins, Bactrim, and fluoroquinolones. The patient appears clinically dehydrated with dry mucous membranes, we will receive gentle IV fluid hydration to avoid iatrogenic exacerbation of CHF. Due to the patient's history of atrial fibrillation not currently on anticoagulation, and history of TIA we will also obtain CT head to rule out neurologic pathology for change in mental status. Pending unremarkable CT head the patient will require admission for UTI with change in mental status. 3:34 AM 05/02/2025 (Mariam ARELLANO): The patient's CT head has resulted and is negative for acute intracranial pathology. The patient's change in mental status is likely secondary to her urinary tract infection. Patient will be admitted for UTI with change in mental status. Admission/Observation Consideration of admission/observation: Escalation of care including admission/observation considered Lab Data MDM Lab Attestation statement: I reviewed the patient's lab results. 05/01/25 18:46 05/01/25 18:46 Labs: Lab Results 05/01/25 05/01/25 05/01/25 Range/Units 18:04 18:46 18:46 WBC 7.7 (4.8-10.8) X10*3/uL RBC 4.74 D (4.20-5.50) X10*6/uL Hgb 10.3 L D (12.0-16.0) g/dl Hct 35.6 L D (37.0-47.0) % MCV 75.1 L (80.0-98.0) fL MCH 21.7 L (27.0-33.0) pg MCHC 28.9 L (31.0-35.0) g/dl RDW 19.3 H (11.0-16.0) % Plt Count 320 (160-400) X10*3/uL MPV 11.3 (9.4-12.3) fL Immature Gran % (Auto) 0.4 (0.0-0.4) % Neut % (Auto) 62.1 (45-73) % Lymph % (Auto) 22.5 (20-40) % Archuleta % (Auto) 13.3 H (2-11) % Eos % (Auto) 1.2 (0-4) % Baso % (Auto) 0.5 (0-2) % Lymph # (Auto) 1.7 (1.2-4.9) X10*3/uL Archuleta # (Auto) 1.0 (0.1-1.2) X10*3/uL Eos # (Auto) 0.1 (0.0-0.4) X10*3/uL Baso # (Auto) 0.0 (0.0-0.2) X10*3/uL Abs Immat Gran (auto) 0.03 (0.00-0.03) X10*3/uL Absolute Neuts (auto) 4.8 (2.0-8.3) x10*3/uL Absolute Nucleated RBC 0.000 (0.0-0.012) X10*3/uL Nucleated RBC % (auto) 0.0 (0.0-0.2) /100WBC Smear Tech's Comments VERIFIED PT 16.3 H (11.2-13.5) SEC INR 1.3 H (0.9-1.1) Sodium 145 (135-145) mmol/L Potassium 3.5 (3.3-5.1) mmol/L Chloride 110 H (96-108) mmol/L Carbon Dioxide 25 (22-29) mmol/L Anion Gap 14 (12-20) BUN 12 (9-16) mg/dL Creatinine 1.12 (0.5-1.4) mg/dL Estim Creat Clear Calc 26.0 Estimated GFR 46 Random Glucose 119 H (60-115) mg/dL Calcium 9.9 D (8.4-10.2) mg/dL Total Bilirubin 1.7 H (0.0-1.0) mg/dL AST 30 (5-31) U/L ALT 11 (0-31) U/L Alkaline Phosphatase 85 (39-117) U/L Troponin I High Sens 8.5 (<3.5-17.0) ng/L NT-Pro-B Natriuret Pep 2932.8 H (<300) pg/mL Total Protein 7.4 (6.5-8.0) g/dL Albumin 4.3 (3.5-5.0) g/dL Lipase 22 Cancelled (8-78) U/L Urine Color Yellow Urine Appearance Cloudy Urine pH 8.0 (5.0-9.0) Ur Specific Aguilar 1.010 (1.005-1.025) Urine Protein Negative (Neg-Trace) mg/dL Urine Glucose (UA) 500 H (Negative) mg/dL Urine Ketones Negative (Negative) mg/dL Urine Blood Moderate (2+) H (Negative) Urine Nitrite Negative (Negative) Ur Leukocyte Esterase Large (3+) H (Negative) Urine RBC 6-10 H (0-2) /HPF Urine WBC 6-10 (0-5) /HPF Ur Squamous Epith Cells 11-20 (0-2) /HPF Urine Bacteria 3+ (None Seen) Hyaline Casts 3-5 (0-2) /LPF Urine Yeast Present Urine Opiates Screen Not Detected (Not Detect) Ur Buprenorphine Scrn Not Detected (Not Detect) ng/mL Ur Oxycodone Screen Not Detected (Not Detect) ng/mL Urine Methadone Screen Not Detected (Not Detect) ng/mL Urine Fentanyl Screen Not Detected (Not Detect) Ur Barbiturates Screen Not Detected (Not Detect) Ur Phencyclidine Scrn Not Detected (Not Detect) Ur Amphetamines Screen Not Detected (Not Detect) U Benzodiazepines Scrn Not Detected (Not Detect) Urine Cocaine Screen Not Detected (Not Detect) U Marijuana (THC) Screen Not Detected (Not Detect) Influenza Type A (PCR) (Negative) Influenza Type B (PCR) (Negative) RSV RNA Qual (PCR) (Negative) SARS-CoV-2 RNA (RT-PCR) (Negative) 05/01/25 Range/Units 19:23 WBC (4.8-10.8) X10*3/uL RBC (4.20-5.50) X10*6/uL Hgb (12.0-16.0) g/dl Hct (37.0-47.0) % MCV (80.0-98.0) fL MCH (27.0-33.0) pg MCHC (31.0-35.0) g/dl RDW (11.0-16.0) % Plt Count (160-400) X10*3/uL MPV (9.4-12.3) fL Immature Gran % (Auto) (0.0-0.4) % Neut % (Auto) (45-73) % Lymph % (Auto) (20-40) % Archuleta % (Auto) (2-11) % Eos % (Auto) (0-4) % Baso % (Auto) (0-2) % Lymph # (Auto) (1.2-4.9) X10*3/uL Archuleta # (Auto) (0.1-1.2) X10*3/uL Eos # (Auto) (0.0-0.4) X10*3/uL Baso # (Auto) (0.0-0.2) X10*3/uL Abs Immat Gran (auto) (0.00-0.03) X10*3/uL Absolute Neuts (auto) (2.0-8.3) x10*3/uL Absolute Nucleated RBC (0.0-0.012) X10*3/uL Nucleated RBC % (auto) (0.0-0.2) /100WBC Smear Tech's Comments PT (11.2-13.5) SEC INR (0.9-1.1) Sodium (135-145) mmol/L Potassium (3.3-5.1) mmol/L Chloride (96-108) mmol/L Carbon Dioxide (22-29) mmol/L Anion Gap (12-20) BUN (9-16) mg/dL Creatinine (0.5-1.4) mg/dL Estim Creat Clear Calc Estimated GFR Random Glucose (60-115) mg/dL Calcium (8.4-10.2) mg/dL Total Bilirubin (0.0-1.0) mg/dL AST (5-31) U/L ALT (0-31) U/L Alkaline Phosphatase (39-117) U/L Troponin I High Sens (<3.5-17.0) ng/L NT-Pro-B Natriuret Pep (<300) pg/mL Total Protein (6.5-8.0) g/dL Albumin (3.5-5.0) g/dL Lipase (8-78) U/L Urine Color Urine Appearance Urine pH (5.0-9.0) Ur Specific Aguilar (1.005-1.025) Urine Protein (Neg-Trace) mg/dL Urine Glucose (UA) (Negative) mg/dL Urine Ketones (Negative) mg/dL Urine Blood (Negative) Urine Nitrite (Negative) Ur Leukocyte Esterase (Negative) Urine RBC (0-2) /HPF Urine WBC (0-5) /HPF Ur Squamous Epith Cells (0-2) /HPF Urine Bacteria (None Seen) Hyaline Casts (0-2) /LPF Urine Yeast Urine Opiates Screen (Not Detect) Ur Buprenorphine Scrn (Not Detect) ng/mL Ur Oxycodone Screen (Not Detect) ng/mL Urine Methadone Screen (Not Detect) ng/mL Urine Fentanyl Screen (Not Detect) Ur Barbiturates Screen (Not Detect) Ur Phencyclidine Scrn (Not Detect) Ur Amphetamines Screen (Not Detect) U Benzodiazepines Scrn (Not Detect) Urine Cocaine Screen (Not Detect) U Marijuana (THC) Screen (Not Detect) Influenza Type A (PCR) NEGATIVE (Negative) Influenza Type B (PCR) NEGATIVE (Negative) RSV RNA Qual (PCR) NEGATIVE (Negative) SARS-CoV-2 RNA (RT-PCR) NEGATIVE (Negative) Independent Interpretation I performed an independent interpretation of an: EKG (EKG demonstrates baseline artifact, AFib with rate of 92, no evidence of acute ischemia, no ST elevation, no ectopy. QTC 492. Compared to previous on 04/10/2025 RVR and PVCs have resolved, no other significant morphology change.) Radiology Impression Discussion of test interpretation with radiology: I have reviewed the radiologist's reading. External Record Review External record reviewed: Outpatient record and Prior outpatient labs Prescription Management I considered prescription management with: Pain Medication and Antibiotic Discharge Plan Discharge Clinical Impression: Change in mental status Qualifiers: Altered mental status type: unspecified Qualified Code(s): R41.82 - Altered mental status, unspecified Urinary tract infection Qualifiers: Urinary tract infection type: acute cystitis Hematuria presence: without hematuria Qualified Code(s): N30.00 - Acute cystitis without hematuria Patient Disposition: Admitted As Inpatient Print Language: Swedish
--- NOTE | 2025-05-01 22:02 | PC.NURSE ---
pt growing increasingly agitated, noted to be dry heaving. Zofran given per protocol. Pulling off monitor leads, states that her legs are restless. asking for a sleeping pill . dry pan operator notified- EILEEN Higginbotham to bedside.
[2025-05-01 22:29] VITALS: BP 140/75; PULSE 77; RESP 12; TEMP 36.4; O2SAT 94
--- NOTE | 2025-05-01 23:17 | PC.NURSE ---
Took over care at 23:00 From Murali Mcclelland and Bennett Wise, pt in bed a bit restless, fall precaution in place, awaiting bed assignment.
[2025-05-01 23:36] VITALS: BP 162/79; PULSE 80
--- NOTE | 2025-05-01 23:36 | PC.NURSE ---
pt transferred to room 20, 1:1 due to attempting to get out bed and Iv protection, report will be given to receiving JUAN Enriquez.
--- NOTE | 2025-05-01 23:55 | PC.NURSE ---
this RN assumed care of this pt @approximately this time, sitter at the bedside d/t AMS, pt noted to be sitting in the stretcher, complaining of itching in the legs, provided lotion for itchiness, pt calm cooperative at this time, fall measures in place
[2025-05-02] VITALS (11 sets, daily range): BP systolic 140–163; BP diastolic 64–79; PULSE 66–86; RESP 12–20; TEMP 36.1–36.3; O2SAT 93–97; BMI 27.0
--- NOTE | 2025-05-02 01:20 | PC.NURSE ---
@approximately this time, pt became restless stating she needed to pee. This RN as well as bedside sitter attempted to place pt on bedpan in order to allow pt to urinate d/t being on fall precautions and bedside commode being unavailable. Pt remained on bedpan for a few minutes continuously stating It doesn't work , pt educate that due to per UTI status and mobility concerns that a purewick may be a better option. @0125 Purewick was placed on pt and pt then became agitated stating It doesn't work I have to pee @0130 pt provided bedside commode in order to attempt using the bathroom, pt was unable to follow basic commands and kept attempting to get off the commode on her own, pt continued to state It doesn't work, it won't work . @0132 pt medicated per MAR d/t increased anxiety and restlessness, pt educated that d/t her UTI she may have urges to urinate but will be unable to at times and may have pain w/ urination, pt became agitated and yelled I told you the thing does not work! pt educated that the purewick is not placed on the pt and that all attempts to help pt urinate has been exhausted. @0140 pt placed back into hospital stretcher, brief placed on pt, per pt request. Sitter at the bedside, pt continues to be restless pending medication effectiveness
--- NOTE | 2025-05-02 02:00 | PC.NURSE ---
@this time pt continues to be restless, pt attempted to pull out her IV line, stating I am going to pull this fuing sh*t out! , bedside sitter stating the pt continuously was yelling at her and attempting to pull the IV line out. @0205 pt was able to be redirected by sitter and was laying on her right side when this RN entered the room, pt was picking at adhesive dressing securing the line. Pt educated that the IV must remain in place in case of emergencies, need for medication etc. This RN wrapped the IV line w/ gauze dressing, pt tolerated procedure well and laid supine closing her eyes. @0230 pt attempting to jump out of bed, stating she needed to urinate, pt educated that she is wearing a brief per her request and she stated that The thing does not work once again. pt educated that the purewick is not in place and that she has a brief on, pt continued to attempt to climb out of bed @0235 pt redirected back into bed, brief assessed and found to be dry
--- NOTE | 2025-05-02 04:09 | PM.IMHP ---
History of Present Illness Date of Service: 05/02/25 Attending physician on admission: Alma Curiel Chief Complaint: Confusion Zuleyma Del Rosario is 89 years old woman years old woman with a complex past medical history including dementia, essential hypertension, hyperlipidemia, AFib, type 2 diabetes mellitus, CVA, dysphagia, GERD, COPD, CKD, and anemia presents to ED due to anxiety and a foggy head. In the ED, she was found to have stable vital signs. Blood workup showed no leukocytosis. Hemoglobin is 10.3 and platelets 220. There are no significant electrolyte imbalances. BUN is 12 and creatinine 1.12. Glucose 119. LFTs are essentially unremarkable. Urinalysis results suggest UTI. Urine toxicology is negative. Serology for COVID-19, influenza RSV is negative. ECG showed atrial fibrillation, heart rate 97 beats per minute. Head CT scan is negative. ED tx: Zofran 4 mg sublingual, NS 1 L bolus, Zosyn 3.3 with 5 mg IV Review of Systems Review of Systems: All 12 systems were reviewed and normal except as noted in HPI. [facility] Medical History (Updated 05/02/25 @ 04:49 by Alma Curiel MD) Diverticulitis Contusion of second toe of left foot Dizziness and giddiness Yeast infection of the skin Generalized abdominal pain Cystitis Weakness Atrial fibrillation with RVR Acute urinary retention Acute diverticulitis of intestine Atrial fibrillation with RVR Acute respiratory failure with hypoxia CHF (congestive heart failure) Asthma Exercise hypoxemia Weakness Nausea & vomiting Hypokalemia Hypomagnesemia Diarrhea Hearing difficulty Diverticular disease Diabetes mellitus Dyspnea on exertion History of gastrointestinal diverticular hemorrhage COVID-19 virus infection Rectal bleeding Medicare annual wellness visit, initial Hip pain, left Patellar sleeve fracture of right knee Lipoma of lower back Knee pain, right Nausea and vomiting Coarse tremors Shoulder pain, right Hospital discharge follow-up Failure to thrive in adult Mass on back Constipation Tinea corporis Nausea Right wrist pain Left knee pain Left hip pain Toe pain, left Breast cancer screening by mammogram TSH elevation Urinary frequency UTI (urinary tract infection) Urinary incontinence Type 2 diabetes mellitus with hyperglycemia Toe fracture, left Pancreatic cyst Osteoporosis Peptic ulcer disease Urinary incontinence Rectal incontinence GERD (gastroesophageal reflux disease) Obesity (BMI 30-39.9) Bile salt-induced diarrhea Vaginal prolapse Renal artery stenosis Asthma Lumbar degenerative disc disease Insomnia TIA (transient ischemic attack) Hyperlipidemia, unspecified Essential hypertension Family History Father Cancer Arterial thrombosis Mother Multiple sclerosis Muscular dystrophy Hypertension Depression Chronic mental illness Mental health disorder Brother No problems noted. Brother Gangrene Sister No problems noted. Son No problems noted. Son No problems noted. Son No problems noted. Son No problems noted. Daughter No problems noted. Daughter No problems noted. Daughter No problems noted. Surgical History Hx of colonoscopy History of esophagogastroduodenoscopy (EGD) History of removal of cyst (~10/17/21) History of hemorrhoidectomy History of colectomy History of section History of hysterectomy History of appendectomy History of cholecystectomy Social History Household Members: None Housing: Apartment Do you presently have visiting nurse or other home services: Yes Alcohol intake: former Comment: 1:1 sitter. Patient Tobacco Use Status: Former Tobacco user Tobacco use type: Cigarette Years Smoked: 22 Smoked in Last 30 Days: No e-Cigarette/Vaping Use: Former Use Second Hand Smoke Exposure: Yes Use of substances other than those prescribed or required for medical reasons: No Advance Directives: Yes Advance Directives on File: Yes Advance Directives Date on File: 08/11/23 Do you have a plan to hurt others: No Plan service: No Current occupational status: disabled Current occupational exposures/hazards: No Cognitive needs: Yes (walker) Hearing needs: Yes Vision needs: Yes (Glasses) Meds Allergies Allergy/AdvReac Type Severity Reaction Status Date / Time ciprofloxacin Allergy Severe unknown Verified 05/01/25 18:00 aspirin (Aspirin) Allergy Unknown UNKNOWN Verified 05/01/25 18:00 cefuroxime Allergy Unknown Unknown Verified 05/01/25 18:00 celecoxib (From Celebrex) Allergy Unknown UNKNOWN Verified 05/01/25 18:00 metformin Allergy Unknown diarrhea Verified 05/01/25 18:00 risedronate sodium (From Allergy Unknown UNKNOWN Verified 05/01/25 18:00 Actonel) Sulfa (Sulfonamide Allergy Unknown unknown Verified 05/01/25 18:00 Antibiotics) bupropion AdvReac Intermediate tremor Verified 05/01/25 18:00 ferrous sulfate AdvReac Intermediate tremors Verified 05/01/25 18:00 sertraline AdvReac Intermediate tremors Verified 05/01/25 18:00 Active Medications: Current Medications Acetaminophen (Acetaminophen 325 Mg Tablet) 650 mg PO Q6H PRN PRN Reason: Pain, Mild 1-3,fever,headache Albuterol Sulfate (Albuterol Sulfate 90 Mcg 8 Gm Inhaler) 1 puff INHALE QID PRN PRN Reason: Shortness Of Breath Or Wheezing Alprazolam (Alprazolam 0.25 Mg Tablet) 0.25 mg PO DAILY PRN PRN Reason: Anxiety Last Admin: 05/02/25 01:32 Dose: 0.25 mg Ascorbic Acid (Ascorbic Acid 500 Mg Tablet) 500 mg PO DAILY [facility] Atorvastatin Calcium (Atorvastatin Calcium 40 Mg Tablet) 40 mg PO BEDTIME JAREK Calcium Carbonate (Calcium Carbonate 750 Mg Tab.Chew) 750 mg PO Q4H PRN PRN Reason: Heartburn Cyanocobalamin (Cyanocobalamin (Vitamin B-12) 1,000 Mcg Tablet) 1,000 mcg PO DAILY [facility] Digoxin (Digoxin 0.125 Mg Tablet) 0.125 mg PO MOWEFR [facility]; Protocol Famotidine (Famotidine 20 Mg Tablet) 40 mg PO BEDTIME [facility] Last Admin: 05/01/25 22:40 Dose: 40 mg Heparin Sodium (Porcine) (Heparin Sodium,Porcine 5,000 Unit/Ml Vial) 5,000 unit SUBCUT Q12H [facility] Magnesium Hydroxide (Milk Of Magnesia 30 Ml Oral.Susp) 30 ml PO DAILY PRN PRN Reason: Constipation Melatonin (Melatonin 3 Mg Tablet) 6 mg PO BEDTIME PRN PRN Reason: Insomnia Ropinirole HCl (Ropinirole Hcl 0.25 Mg Tablet) 0.25 mg PO BEDTIME [facility] Last Admin: 05/01/25 22:38 Dose: 0.25 mg Sodium Chloride (0.9 % Sodium Chloride Flush 3 Ml Syringe) 3 ml IVFLUSH QSHIFT [facility] Tamsulosin HCl (Tamsulosin Hcl 0.4 Mg Capsule) 0.4 mg PO BEDTIME [facility] Last Admin: 05/01/25 22:40 Dose: 0.4 mg Vitamin D (Cholecalciferol (Vitamin D3) 25 Mcg Tablet) 25 mcg PO DAILY [facility] Zolpidem Tartrate (Zolpidem Tartrate 5 Mg Tablet) 5 mg PO BEDTIME PRN PRN Reason: Insomnia Last Admin: 05/01/25 22:39 Dose: 5 mg Home Medications ?Medication ?Instructions ?Recorded ?Confirmed ?Last Taken ?Type metoprolol succinate 50 mg 50 mg PO DAILY 08/01/24 05/01/25 04/10/25 History tablet,extended release 24 hr albuterol sulfate 90 mcg/actuation 1 inh inhalation QID PRN Shortness 02/21/25 05/01/25 Unknown History aerosol inhaler Of Breath Or Wheezing digoxin 125 mcg (0.125 mg) tablet 125 mcg PO MOWEFR 02/21/25 05/01/25 04/08/25 History empagliflozin 25 mg tablet 25 mg PO DAILY 02/21/25 05/01/25 04/10/25 History Held on 04/13/25. Instructions: Resume on 04/20/25. meclizine 12.5 mg tablet 12.5 mg PO TID PRN Vertigo 02/21/25 05/01/25 Unknown History tramadol 50 mg tablet 50 mg PO BID PRN pain 02/21/25 05/01/25 Unknown History diclofenac sodium 1 % topical gel 1 ea topical QID PRN Pain 03/25/25 05/01/25 Unknown History nystatin 100,000 unit/gram topical 1 appl topical DAILY 03/25/25 05/01/25 04/10/25 History powder sitagliptin 25 mg tablet 25 mg PO DAILY 03/25/25 05/01/25 04/10/25 History Physical Exam Vital Signs and Narrative: Vital Signs: Last Vital Signs Temp 97.6 F 05/01/25 22:29 Pulse 76 05/02/25 02:00 Resp 20 05/02/25 02:39 BP 162/79 H 05/01/25 23:36 Pulse Ox 94 05/01/25 22:29 O2 Del Method Room Air 05/01/25 22:29 BMI result Body Mass Index 26.5 General: Alert, oriented, in no acute distress. Cooperative. Afebrile. HEENT: Head normocephalic, atraumatic. PER, EOMI. Sclerae anicteric, conjunctiva clear. Oropharynx without erythema or exudate. Mucous membranes moist. Neck: Supple, no lymphadenopathy, or JVD. Heart: Regular rate, irregular rhythm, positive murmur, rubs or gallops. Lungs: Clear to auscultation bilaterally. No wheezes, rales, or rhonchi. Normal respiratory effort. Abdomen: Soft, non tenderness, nondistended, normoactive bowel sounds. No hepatosplenomegaly, masses or masses. Extremities: No calf tenderness bilaterally, no swelling Musculoskeletal: Full range of motion. No joint swelling, deformity, or tenderness. Normal muscle tone and strength. Skin: Warm/Dry. No pallor. No jaundice. Neurologic: Confused. Moving all extremities spontaneously. Normal speech. Psychological: Underlying dementia. Results Labs 05/01/25 18:46 05/01/25 18:46 Labs: Laboratory Results - last 24 hr 05/01/25 05/01/25 05/01/25 18:04 18:46 18:46 MCV 75.1 L MCH 21.7 L MCHC 28.9 L RDW 19.3 H Plt Count 320 MPV 11.3 Immature Gran % (Auto) 0.4 Neut % (Auto) 62.1 Lymph % (Auto) 22.5 [place] % (Auto) 13.3 H Eos % (Auto) 1.2 Baso % (Auto) 0.5 Lymph # (Auto) 1.7 [place] # (Auto) 1.0 Eos # (Auto) 0.1 Baso # (Auto) 0.0 Abs Immat Gran (auto) 0.03 Absolute Neuts (auto) 4.8 Absolute Nucleated RBC 0.000 Nucleated RBC % (auto) 0.0 Smear Tech's Comments VERIFIED PT 16.3 H INR 1.3 H Anion Gap 14 Estim Creat Clear Calc 26.0 Estimated GFR 46 Random Glucose 119 H Calcium 9.9 D Total Bilirubin 1.7 H AST 30 ALT 11 Alkaline Phosphatase 85 Troponin I High Sens 8.5 NT-Pro-B Natriuret Pep 2932.8 H Total Protein 7.4 Albumin 4.3 Lipase 22 Cancelled Urine Color Yellow Urine Appearance Cloudy Urine pH 8.0 Ur Specific [place] 1.010 Urine Protein Negative Urine Glucose (UA) 500 H Urine Ketones Negative Urine Blood Moderate (2+) H Urine Nitrite Negative Ur Leukocyte Esterase Large (3+) H Urine RBC 6-10 H Urine WBC 6-10 Ur Squamous Epith Cells 11-20 Urine Bacteria 3+ Hyaline Casts 3-5 Urine Yeast Present Urine Opiates Screen Not Detected Ur Buprenorphine Scrn Not Detected Ur Oxycodone Screen Not Detected Urine Methadone Screen Not Detected Urine Fentanyl Screen Not Detected Ur Barbiturates Screen Not Detected Ur Phencyclidine Scrn Not Detected Ur Amphetamines Screen Not Detected U Benzodiazepines Scrn Not Detected Urine Cocaine Screen Not Detected U Marijuana (THC) Screen Not Detected Influenza Type A (PCR) Influenza Type B (PCR) RSV RNA Qual (PCR) SARS-CoV-2 RNA (RT-PCR) 05/01/25 19:23 MCV MCH MCHC RDW Plt Count MPV Immature Gran % (Auto) Neut % (Auto) Lymph % (Auto) [place] % (Auto) Eos % (Auto) Baso % (Auto) Lymph # (Auto) [place] # (Auto) Eos # (Auto) Baso # (Auto) Abs Immat Gran (auto) Absolute Neuts (auto) Absolute Nucleated RBC Nucleated RBC % (auto) Smear Tech's Comments PT INR Anion Gap Estim Creat Clear Calc Estimated GFR Random Glucose Calcium Total Bilirubin AST ALT Alkaline Phosphatase Troponin I High Sens NT-Pro-B Natriuret Pep Total Protein Albumin Lipase Urine Color Urine Appearance Urine pH Ur Specific [place] Urine Protein Urine Glucose (UA) Urine Ketones Urine Blood Urine Nitrite Ur Leukocyte Esterase Urine RBC Urine WBC Ur Squamous Epith Cells Urine Bacteria Hyaline Casts Urine Yeast Urine Opiates Screen Ur Buprenorphine Scrn Ur Oxycodone Screen Urine Methadone Screen Urine Fentanyl Screen Ur Barbiturates Screen Ur Phencyclidine Scrn Ur Amphetamines Screen U Benzodiazepines Scrn Urine Cocaine Screen U Marijuana (THC) Screen Influenza Type A (PCR) NEGATIVE Influenza Type B (PCR) NEGATIVE RSV RNA Qual (PCR) NEGATIVE SARS-CoV-2 RNA (RT-PCR) NEGATIVE Assessment and Plan (1) Encephalopathy: Qualifiers: Encephalopathy type: toxic metabolic Qualified Code(s): G92.8 - Other toxic encephalopathy Status: Acute (2) Urinary tract infection: Qualifiers: Hematuria presence: without hematuria Urinary tract infection type: acute cystitis Qualified Code(s): N30.00 - Acute cystitis without hematuria Status: Acute Plan Zuleyma Del Rosario is 89 y/o woman with a PMHx significant for dementia who presents with: Acute toxic metabolic encephalopathy secondary to urinary tract infection. Neuro checks. Continue empiric IV antibiotic therapy with Zosyn. Blood and urine culture obtained-we will follow results. Check TSH. Acute on chronic macrocytic anemia, Hgb trending down 10.3 ---> 8.3. had an episode of GI bleeding in March of this year (treated conservatively by GI). Trend H&H (10 am). PRBC transfusion if Hgb < 7. Paroxysmal AFib. Metoprolol and digoxin. No longer taking Eliquis due to recent events of GI bleeding. COPD. No home oxygen. Not in acute exacerbation. Continue home inhalers. Hyperlipidemia. Continue statin. Type 2 diabetes mellitus. BG checks before meals at bedtime. Insulin sliding scale. Diabetic diet. HFpEF. Not in acute exacerbation. Continue furosemide and metoprolol. CKD stage 3A. Creatinine at baseline. Continue to monitor. Hx pancreatic duct stone. ERCP as an outpatient at [facility]. Hx dysphagia. Hx . med rec pending Code status: Full DVT prophylaxis: SCDs Patient will need hospitalization for at least 2 midnights for acute toxic metabolic encephalopathy due to UTI treatment with IV antibiotics and close monitoring of neurological status. This documentation was generated using dictation software; minor spreading or icu clerk errors may be present. Quality Stroke Does the patient have a stroke diagnosis?: No VTE Prior VTE?: No VTE Risk Level:: Medical - moderate - high VTE Device Contraindication: Treatment Not Indicated VTE Drug Contraindication: N/A - Med Ordered
[2025-05-02 04:24] LABS: Hematocrit 29.7 % (37.0-47.0); Hemoglobin 8.3 g/dl (12.0-16.0); Imm Gran Abs Auto 0.02 X10*3/uL (0.00-0.03); Imm Gran Pct Auto 0.3 % (0.0-0.4); Lymphocytes Absolute Auto 1.2 X10*3/uL (1.2-4.9); MANUAL DIFF FLAG NO; Mean Corpuscular HGB Conc 27.9 g/dl (31.0-35.0); Mean Corpuscular Hemoglobin 21.5 pg (27.0-33.0); Mean Corpuscular Volume 76.9 fL (80.0-98.0); NRBC Abs Auto 0.000 X10*3/uL (0.0-0.012); NRBC Pct Auto 0.0 /100WBC (0.0-0.2); Platelet Count 240 X10*3/uL (160-400); Red Blood Count 3.86 X10*6/uL (4.20-5.50); White Blood Count 6.0 X10*3/uL (4.8-10.8)
--- NOTE | 2025-05-02 04:40 | PC.NURSE ---
Addendum entered by Lm Vallejo RN 05/02/25 04:41: pt @baseline is a SB/X1 assist to the commode, d/t confusion pt on on bedrest bedpan and briefs have been used, pt refuses the purewick, attempted to rip out her IV as well which was wrapped. Sitter at the bedside d/t her AMS @0445 Lab called and pt had acritical K of 2.9 provider Adri Hahn made aware, order for oral potassium placed and given per JUL Original Note: Chief Complaint: Confusion Zuleyma Del Rosario is 89 years old woman years old woman with a complex past medical history including dementia, essential hypertension, hyperlipidemia, AFib, type 2 diabetes mellitus, CVA, dysphagia, GERD, COPD, CKD, and anemia presents to ED due to anxiety and a foggy head. ED tx: Zofran 4 mg sublingual, NS 1 L bolus, Zosyn 3.3 with 5 mg IV Labs: UA: showed a UTI Toxicology: Neg COVID-19, influenza RSV: negative Imaging: Head CT: No acute intracranial findings. Access: Pt has a 22g IV to the left wrist Admitted for UTI and IV ABX
[2025-05-02 04:43] LABS: Anion Gap 11 (12-20); Blood Urea Nitrogen 12 mg/dL (9-16); Calcium 8.4 mg/dL (8.4-10.2); Carbon Dioxide 24 mmol/L (22-29); Chloride 113 mmol/L (96-108); Creatinine Clr Calc Pharmacy 29.2; Estimated Glomerular Filt Rate 52; Magnesium 1.9 mg/dL (1.6-2.6); Potassium 2.9 mmol/L (3.3-5.1); Sodium 145 mmol/L (135-145)
[2025-05-02] MEDS: Potassium Chloride/H20 10 MEQ/100 ML PIGGYBACK 100 MEQ IV ×4 (05:10→09:56)
[2025-05-02 05:30] LABS: Thyroid Stimulating Hormone 5.35 uIU/mL (0.32-4.0)
--- NOTE | 2025-05-02 06:25 | PC.NURSE ---
Patient arrived from ED to s3 as admit at ~05:30. Seen this admission with UTI and acute metabolic encephalopathy. Pt is A&Ox2 to self and place. Hx dementia per chart review. Pt arrived with 1:1 sitter due to impulsiveness and inability to comprehend IV lines/medication therapies, safety measures. In-room camera was also placed to assist with maintaining patient safety. Zosyn and potassium infusing on arrival via left forearm IV. Zosyn completed, KVO initiated for potassium infusion due to patient verbalizing discomfort with potassium infusion once zosyn infused. +Effect, discomfort improved, no further complaints with IV that was assessed intact and patent without issues. Breathing is even and unlabored without distress on room air. Pt incontinent of urine, refuses to use offered purewick or bedpan despite education and reassurance. Blanchable redness to buttocks. See skin photo uploaded. Barrier cream applied and pt repositioned. Bed alarm on and safety measures in place. Call otto within reach and education on use.
--- NOTE | 2025-05-02 07:06 | HO.SKINPHOTO ---
Location: buttocks, present on admit
[2025-05-02 07:25] LABS: Glucose, Whole Blood 98 mg/dL (60-115)
[2025-05-02 09:11] LABS: Free T4 (Free Thyroxine) 0.68 ng/dL (0.71-1.85)
[2025-05-02 09:41] LABS: Hematocrit 34.8 % (37.0-47.0); Hemoglobin 9.7 g/dl (12.0-16.0)
--- NOTE | 2025-05-02 09:54 | MHC.CM.PN ---
[facility] home when dcd dcplan home
[2025-05-02] MEDS: Metoprolol Succinate ER 50 MG TAB.ER.24H PO (09:58)
--- NOTE | 2025-05-02 11:02 | MHC.CM.PN ---
pt lives alone according to her hcp/sister she was active with [facility] has been at rehab in the past [facility] pt eval if pt to go home pt would need assut with transportaion
[2025-05-02 11:26] LABS: Glucose, Whole Blood 98 mg/dL (60-115)
--- NOTE | 2025-05-02 11:26 | P.PNIM_ITS ---
Subjective Subjective Date of Service: 05/02/25 Interval History: incontinent of urine; no abd pain; confused Review of Systems Review of Systems: Yes all other systems are reviewed and are negative Physical Exam 2 Vital Signs: Vital Signs: Last Vital Signs Temp 97.0 F 05/02/25 07:43 Pulse 80 05/02/25 09:58 Resp 16 05/02/25 07:43 BP 163/77 H 05/02/25 09:58 Pulse Ox 97 05/02/25 07:43 O2 Del Method Room Air 05/02/25 07:43 BMI result Body Mass Index 27.0 Gen: in no acute distress HEENT: sclera anicteric, moist mucus membranes Neck: supple Lungs: clear to auscultation bilaterally Heart: regular rate and rhythm, 2/6 murmur at base Abd: soft, non-tender, non-distended Ext: no edema Skin: warm/well-perfused Neuro: alert, disoriented Psych: anxious Objective Data Active Medications Acetaminophen (Acetaminophen 325 Mg Tablet) 650 mg PO Q6H PRN PRN Reason: Pain, Mild 1-3,fever,headache Albuterol Sulfate (Albuterol Sulfate 90 Mcg 8 Gm Inhaler) 1 puff INHALE QID PRN PRN Reason: Shortness Of Breath Or Wheezing Alprazolam (Alprazolam 0.25 Mg Tablet) 0.25 mg PO DAILY PRN PRN Reason: Anxiety Last Admin: 05/02/25 01:32 Dose: 0.25 mg Documented By: HA Ascorbic Acid (Ascorbic Acid 500 Mg Tablet) 500 mg PO DAILY [facility] Last Admin: 05/02/25 10:00 Dose: 500 mg Documented By: AZUL Atorvastatin Calcium (Atorvastatin Calcium 40 Mg Tablet) 40 mg PO BEDTIME [facility] Calcium Carbonate (Calcium Carbonate 750 Mg Tab.Chew) 750 mg PO Q4H PRN PRN Reason: Heartburn Cyanocobalamin (Cyanocobalamin (Vitamin B-12) 1,000 Mcg Tablet) 1,000 mcg PO DAILY [facility] Last Admin: 05/02/25 10:01 Dose: 1,000 mcg Documented By: AZUL Dextrose (Dextrose 50 % 25 Gm/50 Ml Syringe) 25 gm IVPUSH Q15M PRN; Protocol PRN Reason: per Hypoglycemia Standing Ord. Digoxin (Digoxin 0.125 Mg Tablet) 0.125 mg PO MoWeFr@0900 [facility]; Protocol Last Admin: 05/02/25 10:00 Dose: 0.125 mg Documented By: AZUL Famotidine (Famotidine 20 Mg Tablet) 40 mg PO BEDTIME [facility] Last Admin: 05/01/25 22:40 Dose: 40 mg Documented By: YARELY Glucose (Glucose Gel 15 Gm Gel..Gram.) 15 gm PO Q15M PRN; Protocol PRN Reason: per Hypoglycemia Standing Ord. Piperacillin Sod/Tazobactam (Sod 3.375 gm/ Sodium Chloride) 50 mls @ 100 mls/hr IV Q6H [facility] Last Admin: 05/02/25 11:10 Dose: 100 mls/hr Documented By: AZUL Insulin Human Lispro (Insulin Lispro 100 Unit/Ml 3 Ml Vial) 0 unit SUBCUT QIDACHS [facility]; Protocol Last Admin: 05/02/25 07:30 Dose: Not Given Documented By: AZUL Non-Admin Reason: No Insulin Coverage Magnesium Hydroxide (Milk Of Magnesia 30 Ml Oral.Susp) 30 ml PO DAILY PRN PRN Reason: Constipation Meclizine HCl (Meclizine Hcl 12.5 Mg Tablet) 12.5 mg PO TID PRN PRN Reason: Vertigo Melatonin (Melatonin 3 Mg Tablet) 6 mg PO BEDTIME PRN PRN Reason: Insomnia Metoprolol Succinate (Metoprolol Succinate Er 50 Mg Tab.Er.24h) 50 mg PO DAILY [facility]; Protocol Last Admin: 05/02/25 09:58 Dose: 50 mg Documented By: AZUL Nystatin (Nystatin Powder 15 Gm Bottle) 1 appl TOPICAL DAILY [facility]; Protocol Last Admin: 05/02/25 09:58 Dose: 1 appl Documented By: AZUL Oxycodone HCl (Oxycodone Hcl Immed Release 5 Mg Tablet) 5 mg PO Q6H PRN PRN Reason: Pain, Moderate(Pain Scale 4-6) Pantoprazole Sodium (Pantoprazole Sodium 40 Mg/10 Ml Vial) 40 mg IVPUSH BID@0630,1630 [facility] Pregabalin (Pregabalin 100 Mg Capsule) 100 mg PO Q12H [facility] Last Admin: 05/02/25 10:00 Dose: 100 mg Documented By: AZUL Ropinirole HCl (Ropinirole Hcl 0.25 Mg Tablet) 0.25 mg PO BEDTIME [facility] Last Admin: 05/01/25 22:38 Dose: 0.25 mg Documented By: YARELY Sitagliptin Phosphate (Sitagliptin Phosphate 25 Mg Tablet) 25 mg PO DAILY [facility] Last Admin: 05/02/25 10:00 Dose: 25 mg Documented By: AZUL Sodium Chloride (0.9 % Sodium Chloride Flush 3 Ml Syringe) 3 ml IVFLUSH QSHIFT [facility] Last Admin: 05/02/25 07:31 Dose: Not Given Documented By: AZUL Non-Admin Reason: IV Running Tamsulosin HCl (Tamsulosin Hcl 0.4 Mg Capsule) 0.4 mg PO BEDTIME [facility] Last Admin: 05/01/25 22:40 Dose: 0.4 mg Documented By: YARELY Vitamin D (Cholecalciferol (Vitamin D3) 25 Mcg Tablet) 25 mcg PO DAILY [facility] Last Admin: 05/02/25 10:01 Dose: 25 mcg Documented By: AZUL Zolpidem Tartrate (Zolpidem Tartrate 5 Mg Tablet) 5 mg PO BEDTIME PRN PRN Reason: Insomnia Last Admin: 05/01/25 22:39 Dose: 5 mg Documented By: YARELY Labs 05/02/25 09:33 05/02/25 04:20 Labs: Laboratory Results - last 24 hr 05/01/25 05/01/25 05/01/25 18:04 18:46 18:46 MCV 75.1 L MCH 21.7 L MCHC 28.9 L RDW 19.3 H Plt Count 320 MPV 11.3 Immature Gran % (Auto) 0.4 Neut % (Auto) 62.1 Lymph % (Auto) 22.5 [place] % (Auto) 13.3 H Eos % (Auto) 1.2 Baso % (Auto) 0.5 Lymph # (Auto) 1.7 [place] # (Auto) 1.0 Eos # (Auto) 0.1 Baso # (Auto) 0.0 Abs Immat Gran (auto) 0.03 Absolute Neuts (auto) 4.8 Absolute Nucleated RBC 0.000 Nucleated RBC % (auto) 0.0 Smear Tech's Comments VERIFIED PT 16.3 H INR 1.3 H Anion Gap 14 Estim Creat Clear Calc 26.0 Estimated GFR 46 POC Glucose Random Glucose 119 H Calcium 9.9 D Magnesium Total Bilirubin 1.7 H AST 30 ALT 11 Alkaline Phosphatase 85 Troponin I High Sens 8.5 NT-Pro-B Natriuret Pep 2932.8 H Total Protein 7.4 Albumin 4.3 Lipase 22 Cancelled TSH 5.35 H Free T4 Urine Color Yellow Urine Appearance Cloudy Urine pH 8.0 Ur Specific [place] 1.010 Urine Protein Negative Urine Glucose (UA) 500 H Urine Ketones Negative Urine Blood Moderate (2+) H Urine Nitrite Negative Ur Leukocyte Esterase Large (3+) H Urine RBC 6-10 H Urine WBC 6-10 Ur Squamous Epith Cells 11-20 Urine Bacteria 3+ Hyaline Casts 3-5 Urine Yeast Present Urine Opiates Screen Not Detected Ur Buprenorphine Scrn Not Detected Ur Oxycodone Screen Not Detected Urine Methadone Screen Not Detected Urine Fentanyl Screen Not Detected Ur Barbiturates Screen Not Detected Ur Phencyclidine Scrn Not Detected Ur Amphetamines Screen Not Detected U Benzodiazepines Scrn Not Detected Urine Cocaine Screen Not Detected U Marijuana (THC) Screen Not Detected Influenza Type A (PCR) Influenza Type B (PCR) RSV RNA Qual (PCR) SARS-CoV-2 RNA (RT-PCR) 05/01/25 05/02/25 05/02/25 19:23 04:20 07:00 MCV 76.9 L MCH 21.5 L MCHC 27.9 L RDW 19.1 H Plt Count 240 MPV 11.2 Immature Gran % (Auto) 0.3 Neut % (Auto) 59.5 Lymph % (Auto) 20.0 [place] % (Auto) 15.7 H Eos % (Auto) 3.7 Baso % (Auto) 0.8 Lymph # (Auto) 1.2 [place] # (Auto) 0.9 Eos # (Auto) 0.2 Baso # (Auto) 0.1 Abs Immat Gran (auto) 0.02 Absolute Neuts (auto) 3.6 Absolute Nucleated RBC 0.000 Nucleated RBC % (auto) 0.0 Smear Tech's Comments PT INR Anion Gap 11 L Estim Creat Clear Calc 29.2 Estimated GFR 52 POC Glucose 98 Random Glucose 92 Calcium 8.4 D Magnesium 1.9 Total Bilirubin AST ALT Alkaline Phosphatase Troponin I High Sens NT-Pro-B Natriuret Pep Total Protein Albumin Lipase TSH Free T4 0.68 L Urine Color Urine Appearance Urine pH Ur Specific [place] Urine Protein Urine Glucose (UA) Urine Ketones Urine Blood Urine Nitrite Ur Leukocyte Esterase Urine RBC Urine WBC Ur Squamous Epith Cells Urine Bacteria Hyaline Casts Urine Yeast Urine Opiates Screen Ur Buprenorphine Scrn Ur Oxycodone Screen Urine Methadone Screen Urine Fentanyl Screen Ur Barbiturates Screen Ur Phencyclidine Scrn Ur Amphetamines Screen U Benzodiazepines Scrn Urine Cocaine Screen U Marijuana (THC) Screen Influenza Type A (PCR) NEGATIVE Influenza Type B (PCR) NEGATIVE RSV RNA Qual (PCR) NEGATIVE SARS-CoV-2 RNA (RT-PCR) NEGATIVE 05/02/25 11:17 MCV MCH MCHC RDW Plt Count MPV Immature Gran % (Auto) Neut % (Auto) Lymph % (Auto) [place] % (Auto) Eos % (Auto) Baso % (Auto) Lymph # (Auto) [place] # (Auto) Eos # (Auto) Baso # (Auto) Abs Immat Gran (auto) Absolute Neuts (auto) Absolute Nucleated RBC Nucleated RBC % (auto) Smear Tech's Comments PT INR Anion Gap Estim Creat Clear Calc Estimated GFR POC Glucose 98 Random Glucose Calcium Magnesium Total Bilirubin AST ALT Alkaline Phosphatase Troponin I High Sens NT-Pro-B Natriuret Pep Total Protein Albumin Lipase TSH Free T4 Urine Color Urine Appearance Urine pH Ur Specific [place] Urine Protein Urine Glucose (UA) Urine Ketones Urine Blood Urine Nitrite Ur Leukocyte Esterase Urine RBC Urine WBC Ur Squamous Epith Cells Urine Bacteria Hyaline Casts Urine Yeast Urine Opiates Screen Ur Buprenorphine Scrn Ur Oxycodone Screen Urine Methadone Screen Urine Fentanyl Screen Ur Barbiturates Screen Ur Phencyclidine Scrn Ur Amphetamines Screen U Benzodiazepines Scrn Urine Cocaine Screen U Marijuana (THC) Screen Influenza Type A (PCR) Influenza Type B (PCR) RSV RNA Qual (PCR) SARS-CoV-2 RNA (RT-PCR) Microbiology Microbiology Results: Microbiology 05/01/25 Unknown Urine Culture - Preliminary Urine clean catch - Clean Catch Midstream Culture too young to evaluate. Assessment and Plan (1) Urinary tract infection: Status: Acute Plan d1, 89yo F with dementia presenting with confusion due to UTI UTI - piperacillin-tazobactam 05/02-, follow UCx acute encephalopathy due to infection - treat infection as above hypothyroidism, new diagnosis - start levothyroxine 50 mcg/d; recheck TSH + free T4 in 4 wk acute/chronic anemia - monitor H+H CKD3: SCr at baseline pAF: continue metoprolol succinate + digoxin; not on apixaban due to recent GI bleed [Mar 2025] chronic HFpEF: furosemide, metoprolol succinate COPD: prn albuterol HLD: statin DM2: correction-dose lispro, Januvia GERD: famotidine pancreatic duct stone: plan from last admission in April; ERCP and EUS at [facility] as outpt VTE ppx: SCDs, no heparin given recent GI bleed dispo: PT eval In my clinical judgment, the patient requires continued inpatient hospitalization for the following reasons: IV ABX Total time managing care of this patient today: 35 minutes. Quality Stroke Does the patient have a stroke diagnosis?: No VTE Prior VTE?: No VTE Risk Level:: Medical - moderate - high VTE Device Contraindication: Treatment Not Indicated VTE Drug Contraindication: N/A - Med Ordered
[2025-05-02] MEDS: Umeclidinium/Vilanterol 62.5/25 BLST.W.DEV 1 PUFF INHALE (11:56)
[2025-05-02] MEDS: oxyCODONE HCl Immed Release 5 MG TABLET PO (14:15)
--- NOTE | 2025-05-02 16:09 | PHA.MEDREC ---
Addendum entered by Bessie Cartwright RPh 05/02/25 16:56: REVIEWED BY PHARMACIST Original Note: Pharmacy Consult ? Medication Reconciliation Pharmacy reviewed med rec done by nursing. Pt poor historian and unable to confirm med rec. Tried calling Pt sister (Lili [phone]), Niece (Dora [phone]) and Son (Enrique [phone]) but had no luck getting through to anyone this Am or afternoon; utilized [employer], Dc packet from 04/13 and called pt pharmacies ([facility], [facility] [facility] and [facility]) to confirm medications.
[2025-05-02 16:47] LABS: Glucose, Whole Blood 150 mg/dL (60-115)
[2025-05-02 20:07] LABS: Glucose, Whole Blood 100 mg/dL (60-115)
[2025-05-02] MEDS: 0.9 % Sodium Chloride Flush 3 ML SYRINGE IVFLUSH (20:43)
[2025-05-03 03:16] VITALS: BP 115/59; PULSE 70; RESP 18; TEMP 36.4; O2SAT 93
--- NOTE | 2025-05-03 05:47 | PC.NURSE ---
Pt refused morning levothyroxine; Pt swatted at this RN's hands and said no.
[2025-05-03 06:32] LABS: Hematocrit 31.6 % (37.0-47.0); Hemoglobin 9.1 g/dl (12.0-16.0); Mean Corpuscular HGB Conc 28.8 g/dl (31.0-35.0); Mean Corpuscular Hemoglobin 21.7 pg (27.0-33.0); Mean Corpuscular Volume 75.4 fL (80.0-98.0); NRBC Abs Auto 0.020 X10*3/uL (0.0-0.012); NRBC Pct Auto 0.3 /100WBC (0.0-0.2); Platelet Count 223 X10*3/uL (160-400); Red Blood Count 4.19 X10*6/uL (4.20-5.50); White Blood Count 6.6 X10*3/uL (4.8-10.8)
[2025-05-03 06:49] LABS: Alanine Aminotransferase < 6 U/L (0-31); Albumin Level 2.8 g/dL (3.5-5.0); Alkaline Phosphatase 62 U/L (39-117); Anion Gap 12 (12-20); Aspartate Amino Transferase 32 U/L (5-31); Blood Urea Nitrogen 12 mg/dL (9-16); Calcium 8.4 mg/dL (8.4-10.2); Carbon Dioxide 22 mmol/L (22-29); Chloride 114 mmol/L (96-108); Creatinine Clr Calc Pharmacy 25.6; Estimated Glomerular Filt Rate 45; Magnesium 2.1 mg/dL (1.6-2.6); Potassium 3.7 mmol/L (3.3-5.1); Sodium 144 mmol/L (135-145); Total Protein 5.6 g/dL (6.5-8.0)
[2025-05-03 07:35] VITALS: BP 146/67; PULSE 52; RESP 16; TEMP 36.8; O2SAT 92
[2025-05-03 07:51] LABS: Glucose, Whole Blood 113 mg/dL (60-115)
[2025-05-03] MEDS: Umeclidinium/Vilanterol 62.5/25 BLST.W.DEV 1 PUFF INHALE (08:41)
[2025-05-03 08:43] VITALS: PULSE 52; RESP 16; O2SAT 94
--- NOTE | 2025-05-03 09:34 | HO.PM.IMPN ---
Subjective Subjective Date of Service: 05/03/25 Interval History: She remains confused and has a sitter Review of Systems Review of Systems: Yes all other systems are reviewed and are negative Physical Exam Vital Signs: Vital Signs: Last Vital Signs Temp 98.2 F 05/03/25 07:35 Pulse 52 05/03/25 08:43 Resp 16 05/03/25 08:43 BP 146/67 H 05/03/25 07:35 Pulse Ox 92 05/03/25 07:35 O2 Del Method Room Air 05/03/25 07:35 BMI result Body Mass Index 27.0 Objective Data Active Medications Acetaminophen (Acetaminophen 325 Mg Tablet) 650 mg PO Q6H PRN PRN Reason: Pain, Mild 1-3,fever,headache Last Admin: 05/02/25 20:42 Dose: 650 mg Documented By: SAMIRA Albuterol Sulfate (Albuterol Sulfate 90 Mcg 8 Gm Inhaler) 1 puff INHALE QID PRN PRN Reason: Shortness Of Breath Or Wheezing Alprazolam (Alprazolam 0.25 Mg Tablet) 0.25 mg PO DAILY PRN PRN Reason: Anxiety Last Admin: 05/02/25 01:32 Dose: 0.25 mg Documented By: HA Ascorbic Acid (Ascorbic Acid 500 Mg Tablet) 500 mg PO DAILY [facility] Last Admin: 05/02/25 10:00 Dose: 500 mg Documented By: AZUL Atorvastatin Calcium (Atorvastatin Calcium 40 Mg Tablet) 40 mg PO BEDTIME [facility] Last Admin: 05/02/25 20:43 Dose: 40 mg Documented By: SAMIRA Calcium Carbonate (Calcium Carbonate 750 Mg Tab.Chew) 750 mg PO Q4H PRN PRN Reason: Heartburn Cyanocobalamin (Cyanocobalamin (Vitamin B-12) 1,000 Mcg Tablet) 1,000 mcg PO DAILY [facility] Last Admin: 05/02/25 10:01 Dose: 1,000 mcg Documented By: AZUL Dextrose (Dextrose 50 % 25 Gm/50 Ml Syringe) 25 gm IVPUSH Q15M PRN; Protocol PRN Reason: per Hypoglycemia Standing Ord. Digoxin (Digoxin 0.125 Mg Tablet) 0.125 mg PO MoWeFr@0900 [facility]; Protocol Last Admin: 05/02/25 10:00 Dose: 0.125 mg Documented By: AZUL Famotidine (Famotidine 20 Mg Tablet) 40 mg PO BEDTIME [facility] Last Admin: 05/02/25 20:42 Dose: 40 mg Documented By: SAMIRA Furosemide (Furosemide 40 Mg Tablet) 40 mg PO DAILY [facility]; Protocol Last Admin: 05/02/25 18:04 Dose: 40 mg Documented By: JAYCE Glucose (Glucose Gel 15 Gm Gel..Gram.) 15 gm PO Q15M PRN; Protocol PRN Reason: per Hypoglycemia Standing Ord. Piperacillin Sod/Tazobactam (Sod 3.375 gm/ Sodium Chloride) 50 mls @ 100 mls/hr IV Q6H [facility] Last Infusion: 05/03/25 05:31 Dose: Infused Documented By: SAMIRA Insulin Human Lispro (Insulin Lispro 100 Unit/Ml 3 Ml Vial) 0 unit SUBCUT QIDACHS [facility]; Protocol Last Admin: 05/03/25 07:53 Dose: Not Given Documented By: AZUL Non-Admin Reason: No Insulin Coverage Levothyroxine Sodium (Levothyroxine Sodium 50 Mcg Tablet) 50 mcg PO DAILY@0600 [facility] Last Admin: 05/03/25 05:29 Dose: Not Given Documented By: SAMIRA Non-Admin Reason: Patient Refused Magnesium Hydroxide (Milk Of Magnesia 30 Ml Oral.Susp) 30 ml PO DAILY PRN PRN Reason: Constipation Meclizine HCl (Meclizine Hcl 12.5 Mg Tablet) 12.5 mg PO TID PRN PRN Reason: Vertigo Melatonin (Melatonin 3 Mg Tablet) 6 mg PO BEDTIME PRN PRN Reason: Insomnia Metoprolol Succinate (Metoprolol Succinate Er 50 Mg Tab.Er.24h) 50 mg PO DAILY [facility]; Protocol Last Admin: 05/02/25 09:58 Dose: 50 mg Documented By: AZUL Nystatin (Nystatin Powder 15 Gm Bottle) 1 appl TOPICAL DAILY [facility]; Protocol Last Admin: 05/02/25 09:58 Dose: 1 appl Documented By: AZUL Ondansetron HCl (Ondansetron Hcl 4 Mg/2 Ml Vial) 4 mg IVPUSH Q4H PRN PRN Reason: Nausea and Vomiting Last Admin: 05/02/25 14:15 Dose: 4 mg Documented By: RUPERT Oxycodone HCl (Oxycodone Hcl Immed Release 5 Mg Tablet) 5 mg PO Q6H PRN PRN Reason: Pain, Moderate(Pain Scale 4-6) Last Admin: 05/02/25 14:15 Dose: 5 mg Documented By: RUPERT Polyethylene Glycol (Polyethylene Glycol 3350 17 Gm Powd.Pack) 17 gm PO Q48H [facility] Last Admin: 05/02/25 18:07 Dose: 17 gm Documented By: JAYCE Pregabalin (Pregabalin 100 Mg Capsule) 100 mg PO Q12H [facility] Last Admin: 05/02/25 20:43 Dose: 100 mg Documented By: SAMIRA Ropinirole HCl (Ropinirole Hcl 0.25 Mg Tablet) 0.25 mg PO BEDTIME [facility] Last Admin: 05/02/25 20:43 Dose: 0.25 mg Documented By: SAMIRA Sitagliptin Phosphate (Sitagliptin Phosphate 25 Mg Tablet) 25 mg PO DAILY [facility] Last Admin: 05/02/25 10:00 Dose: 25 mg Documented By: AZUL Sodium Chloride (0.9 % Sodium Chloride Flush 3 Ml Syringe) 3 ml IVFLUSH QSHIFT [facility] Last Admin: 05/02/25 20:43 Dose: 3 ml Documented By: SAMIRA Tamsulosin HCl (Tamsulosin Hcl 0.4 Mg Capsule) 0.4 mg PO BEDTIME [facility] Last Admin: 05/02/25 20:43 Dose: 0.4 mg Documented By: SAMIRA Vitamin D (Cholecalciferol (Vitamin D3) 25 Mcg Tablet) 25 mcg PO DAILY [facility] Last Admin: 05/02/25 10:01 Dose: 25 mcg Documented By: AZUL Zolpidem Tartrate (Zolpidem Tartrate 5 Mg Tablet) 5 mg PO BEDTIME PRN PRN Reason: Insomnia Last Admin: 05/02/25 20:43 Dose: 5 mg Documented By: SAMIRA Labs 05/03/25 05:35 05/03/25 05:35 Labs: Laboratory Results - last 24 hr 05/02/25 05/02/25 05/02/25 11:17 16:45 19:52 MCV MCH MCHC RDW Plt Count MPV Absolute Nucleated RBC Nucleated RBC % (auto) Anion Gap Estim Creat Clear Calc Estimated GFR POC Glucose 98 150 H 100 Random Glucose Calcium Magnesium Total Bilirubin Direct Bilirubin AST ALT Alkaline Phosphatase Total Protein Albumin 05/03/25 05/03/25 05:35 07:47 MCV 75.4 L MCH 21.7 L MCHC 28.8 L RDW 19.0 H Plt Count 223 MPV 11.0 Absolute Nucleated RBC 0.020 H Nucleated RBC % (auto) 0.3 H Anion Gap 12 Estim Creat Clear Calc 25.6 Estimated GFR 45 POC Glucose 113 Random Glucose 90 Calcium 8.4 Magnesium 2.1 Total Bilirubin 1.4 H Direct Bilirubin 0.4 AST 32 H ALT < 6 Alkaline Phosphatase 62 Total Protein 5.6 L Albumin 2.8 L Microbiology Microbiology Results: Microbiology 05/01/25 Unknown Urine Culture - Final Urine clean catch - Clean Catch Midstream Assessment and Plan (1) Urinary tract infection: Status: Acute Plan 89yo F with dementia presenting with confusion due to UTI UTI - piperacillin-tazobactam 05/02-, negative cultures so far acute encephalopathy due to infection - treat infection as above hypothyroidism, new diagnosis - started levothyroxine 50 mcg/d; recheck TSH + free T4 in 4 wk acute/chronic anemia - monitor H+H CKD3: SCr at baseline pAF: continue metoprolol succinate + digoxin; not on apixaban due to recent GI bleed [Mar 2025] chronic HFpEF: furosemide, metoprolol succinate COPD: prn albuterol HLD: statin DM2: correction-dose lispro, Januvia GERD: famotidine pancreatic duct stone: plan from last admission in April; ERCP and EUS at [facility] as outpt VTE ppx: SCDs, no heparin given recent GI bleed dispo: PT eval In my clinical judgment, the patient requires continued inpatient hospitalization for the following reasons: IV ABX Total time managing care of this patient today: 35 minutes. Quality Stroke Does the patient have a stroke diagnosis?: No VTE Prior VTE?: No VTE Risk Level:: Medical - moderate - high VTE Device Contraindication: Treatment Not Indicated VTE Drug Contraindication: N/A - Med Ordered
[2025-05-03] MEDS: 0.9 % Sodium Chloride Flush 3 ML SYRINGE IVFLUSH ×3 (09:37→21:08)
[2025-05-03 09:39] VITALS: BP 146/67; PULSE 52
[2025-05-03] MEDS: Metoprolol Succinate ER 50 MG TAB.ER.24H PO (09:39)
[2025-05-03 11:16] LABS: Glucose, Whole Blood 142 mg/dL (60-115)
[2025-05-03] MEDS: Milk of Magnesia 30 ML ORAL.SUSP PO (11:28)
[2025-05-03] MEDS: oxyCODONE HCl Immed Release 5 MG TABLET PO ×2 (13:49→23:44)
[2025-05-03 15:21] VITALS: BP 120/60; PULSE 56; RESP 18; TEMP 36.4; O2SAT 94
[2025-05-03 16:05] LABS: Glucose, Whole Blood 138 mg/dL (60-115)
[2025-05-03 19:11] VITALS: BP 115/65; PULSE 76; RESP 19; TEMP 36.4; O2SAT 92
[2025-05-03 20:24] LABS: Glucose, Whole Blood 126 mg/dL (60-115)
[2025-05-04 04:00] VITALS: BP 146/61; PULSE 68; RESP 18; TEMP 36.8; O2SAT 96
[2025-05-04] MEDS: oxyCODONE HCl Immed Release 5 MG TABLET PO (06:50)
[2025-05-04 07:33] VITALS: BP 136/60; PULSE 68; RESP 18; TEMP 37; O2SAT 96
[2025-05-04 07:58] LABS: Glucose, Whole Blood 106 mg/dL (60-115)
[2025-05-04] MEDS: Metoprolol Succinate ER 50 MG TAB.ER.24H PO (08:02)
[2025-05-04] MEDS: Umeclidinium/Vilanterol 62.5/25 BLST.W.DEV 1 PUFF INHALE (08:08)
[2025-05-04] MEDS: 0.9 % Sodium Chloride Flush 3 ML SYRINGE IVFLUSH ×3 (08:08→20:44)
[2025-05-04 08:11] VITALS: PULSE 59; RESP 18; O2SAT 95
--- NOTE | 2025-05-04 08:42 | P.PNIM_ITS ---
Subjective Subjective Date of Service: 05/04/25 Interval History: She seems less confused today no agitation, urine culture negative thus far Review of Systems Review of Systems: Yes all other systems are reviewed and are negative Physical Exam 2 Exam: Exam: Alert, not oriented CVRRR lung CTA Abd s, nt, nd Neuro: confused but no focal Vital Signs: Vital Signs: Last Vital Signs Temp 98.6 F 05/04/25 07:33 Pulse 59 05/04/25 08:11 Resp 18 05/04/25 08:11 BP 136/60 05/04/25 07:33 Pulse Ox 96 05/04/25 07:33 O2 Del Method Room Air 05/04/25 07:33 BMI result Body Mass Index 27.0 Objective Data Active Medications Acetaminophen (Acetaminophen 325 Mg Tablet) 650 mg PO Q6H PRN PRN Reason: Pain, Mild 1-3,fever,headache Last Admin: 05/02/25 20:42 Dose: 650 mg Documented By: SAMIRA Albuterol Sulfate (Albuterol Sulfate 90 Mcg 8 Gm Inhaler) 1 puff INHALE QID PRN PRN Reason: Shortness Of Breath Or Wheezing Alprazolam (Alprazolam 0.25 Mg Tablet) 0.25 mg PO DAILY PRN PRN Reason: Anxiety Last Admin: 05/02/25 01:32 Dose: 0.25 mg Documented By: HA Ascorbic Acid (Ascorbic Acid 500 Mg Tablet) 500 mg PO DAILY [facility] Last Admin: 05/04/25 08:11 Dose: 500 mg Documented By: JUNE Atorvastatin Calcium (Atorvastatin Calcium 40 Mg Tablet) 40 mg PO BEDTIME [facility] Last Admin: 05/03/25 21:08 Dose: 40 mg Documented By: SAMIRA Calcium Carbonate (Calcium Carbonate 750 Mg Tab.Chew) 750 mg PO Q4H PRN PRN Reason: Heartburn Cyanocobalamin (Cyanocobalamin (Vitamin B-12) 1,000 Mcg Tablet) 1,000 mcg PO DAILY [facility] Last Admin: 05/04/25 08:03 Dose: 1,000 mcg Documented By: JUNE Dextrose (Dextrose 50 % 25 Gm/50 Ml Syringe) 25 gm IVPUSH Q15M PRN; Protocol PRN Reason: per Hypoglycemia Standing Ord. Digoxin (Digoxin 0.125 Mg Tablet) 0.125 mg PO MoWeFr@0900 [facility]; Protocol Last Admin: 05/04/25 08:03 Dose: 0.125 mg Documented By: JUNE Famotidine (Famotidine 20 Mg Tablet) 40 mg PO BEDTIME [facility] Last Admin: 05/03/25 21:08 Dose: 40 mg Documented By: SAMIRA Furosemide (Furosemide 40 Mg Tablet) 40 mg PO DAILY [facility]; Protocol Last Admin: 05/04/25 08:03 Dose: 40 mg Documented By: JUNE Glucose (Glucose Gel 15 Gm Gel..Gram.) 15 gm PO Q15M PRN; Protocol PRN Reason: per Hypoglycemia Standing Ord. Piperacillin Sod/Tazobactam (Sod 2.25 gm/ Sodium Chloride) 50 mls @ 100 mls/hr IV Q6H [facility] Last Infusion: 05/04/25 05:16 Dose: Infused Documented By: SAMIRA Insulin Human Lispro (Insulin Lispro 100 Unit/Ml 3 Ml Vial) 0 unit SUBCUT QIDACHS [facility]; Protocol Last Admin: 05/04/25 08:10 Dose: Not Given Documented By: JUNE Non-Admin Reason: No Insulin Coverage Levothyroxine Sodium (Levothyroxine Sodium 50 Mcg Tablet) 50 mcg PO DAILY@0600 [facility] Last Admin: 05/04/25 05:20 Dose: 50 mcg Documented By: SAMIRA Magnesium Hydroxide (Milk Of Magnesia 30 Ml Oral.Susp) 30 ml PO DAILY PRN PRN Reason: Constipation Last Admin: 05/03/25 11:28 Dose: 30 ml Documented By: AZUL Meclizine HCl (Meclizine Hcl 12.5 Mg Tablet) 12.5 mg PO TID PRN PRN Reason: Vertigo Melatonin (Melatonin 3 Mg Tablet) 6 mg PO BEDTIME PRN PRN Reason: Insomnia Metoprolol Succinate (Metoprolol Succinate Er 50 Mg Tab.Er.24h) 50 mg PO DAILY [facility]; Protocol Last Admin: 05/04/25 08:02 Dose: 50 mg Documented By: JUNE Nystatin (Nystatin Powder 15 Gm Bottle) 1 appl TOPICAL DAILY [facility]; Protocol Last Admin: 05/04/25 08:04 Dose: 1 appl Documented By: JUNE Ondansetron HCl (Ondansetron Hcl 4 Mg/2 Ml Vial) 4 mg IVPUSH Q4H PRN PRN Reason: Nausea and Vomiting Last Admin: 05/02/25 14:15 Dose: 4 mg Documented By: RUPERT Oxycodone HCl (Oxycodone Hcl Immed Release 5 Mg Tablet) 5 mg PO Q6H PRN PRN Reason: Pain, Moderate(Pain Scale 4-6) Last Admin: 05/04/25 06:50 Dose: 5 mg Documented By: RUPERT Polyethylene Glycol (Polyethylene Glycol 3350 17 Gm Powd.Pack) 17 gm PO Q48H [facility] Last Admin: 05/02/25 18:07 Dose: 17 gm Documented By: JAYCE Pregabalin (Pregabalin 100 Mg Capsule) 100 mg PO Q12H [facility] Last Admin: 05/04/25 08:04 Dose: 100 mg Documented By: JUNE Ropinirole HCl (Ropinirole Hcl 0.25 Mg Tablet) 0.25 mg PO BEDTIME [facility] Last Admin: 05/03/25 21:08 Dose: 0.25 mg Documented By: SAMIRA Sitagliptin Phosphate (Sitagliptin Phosphate 25 Mg Tablet) 25 mg PO DAILY [facility] Last Admin: 05/04/25 08:04 Dose: 25 mg Documented By: JUNE Sodium Chloride (0.9 % Sodium Chloride Flush 3 Ml Syringe) [facility] Last Admin: 05/04/25 08:08 Dose: 3 ml Documented By: JUNE Tamsulosin HCl (Tamsulosin Hcl 0.4 Mg Capsule) 0.4 mg PO BEDTIME [facility] Last Admin: 05/03/25 21:08 Dose: 0.4 mg Documented By: SAMIRA Vitamin D (Cholecalciferol (Vitamin D3) 25 Mcg Tablet) 25 mcg PO DAILY [facility] Last Admin: 05/04/25 08:04 Dose: 25 mcg Documented By: JUNE Zolpidem Tartrate (Zolpidem Tartrate 5 Mg Tablet) 5 mg PO BEDTIME PRN PRN Reason: Insomnia Last Admin: 05/03/25 21:08 Dose: 5 mg Documented By: SAMIRA Labs 05/03/25 05:35 05/03/25 05:35 Labs: Laboratory Results - last 24 hr 05/03/25 05/03/25 05/03/25 11:12 15:57 20:20 POC Glucose 142 H 138 H 126 H 05/04/25 07:36 POC Glucose 106 Microbiology Microbiology Results: Microbiology 05/01/25 Unknown Urine Culture - Final Urine clean catch - Clean Catch Midstream Assessment and Plan (1) Urinary tract infection: Status: Acute Plan 89yo F with dementia presenting with confusion due to UTI UTI, negative urine culture. has been on Zosyn, will stop at this time, and add amoxillin acute encephalopathy due to infection - treat infection as above hypothyroidism, new diagnosis - started levothyroxine 50 mcg/d; recheck TSH + free T4 in 4 wk acute/chronic anemia - monitor H+H CKD3: SCr at baseline pAF: continue metoprolol succinate + digoxin; not on apixaban due to recent GI bleed [Mar 2025] chronic HFpEF: furosemide, metoprolol succinate COPD: prn albuterol HLD: statin DM2: correction-dose lispro, Januvia GERD: famotidine pancreatic duct stone: plan from last admission in April; ERCP and EUS at [facility] as outpt VTE ppx: SCDs, no heparin given recent GI bleed dispo: PT recommends STR In my clinical judgment, the patient requires continued inpatient hospitalization for the following reasons: IV ABX Total time managing care of this patient today: 35 minutes. Quality Stroke Does the patient have a stroke diagnosis?: No VTE Prior VTE?: No VTE Risk Level:: Medical - moderate - high VTE Device Contraindication: Treatment Not Indicated VTE Drug Contraindication: N/A - Med Ordered
--- NOTE | 2025-05-04 08:45 | P.CDIM_ITS ---
PROVIDER RESPONSE TEXT: To clarify, the appropriate diagnosis supported by the clinical indicators: Dementia with delirium (such as Confusion or Sundowning) QUERY TEXT: PHYSICIAN'S DOCUMENTATION REQUEST Date of Query: 05/04/2025 07:31 AM EST Patient Name: Zuleyma Gutierrez Admit Date: 05/02/2025 Dear Alton Borjas MD, A review of the medical record indicates additional documentation may be needed. Please review below and update the documentation accordingly. Clinical Indicators: Progress note dated 05/03/25 - 89 yo F with Dementia, presenting with confusion due to UTI. Nursing notes 05/02-05/03 - Patient became agitated, unable to follow commands, increased anxiety and restlessness. Sitter at bedside. Attempted to pull out IV line, attempting to jump out of bed. Patient refused morning levothyroxine, Pt swatted at this RN's hand and said No . If possible, please further clarify any further specifics to the documented Dementia for this admission: Dementia without behavioral disturbance Dementia with behavioral disturbance (such as Aggressive, Combative, or Violent) Dementia with mood disturbance Dementia with delirium (such as Confusion or Sundowning) Dementia Alzheimer's, Vascular, Lewy body etc. Other (explain) Clinically unable to determine (explain) Thank you, Alka Sánchez, CCS, CDIS Use of terms such as suspected, likely, concern for, or probable (associated with a specific diagnosis that is being evaluated, monitored, or treated as if it exists) are acceptable and can be coded in the inpatient setting, when documented at the time of discharge. Please use your independent medical judgment in providing your response. THIS QUERY IS PART OF THE PERMANENT MEDICAL RECORD
[2025-05-04 11:50] LABS: Glucose, Whole Blood 180 mg/dL (60-115)
--- NOTE | 2025-05-04 14:48 | MHC.CM.PN ---
pt recommending str referrals made
[2025-05-04 15:36] VITALS: BP 108/57; PULSE 72; RESP 16; TEMP 36.2; O2SAT 96
[2025-05-04 15:59] LABS: Glucose, Whole Blood 130 mg/dL (60-115)
[2025-05-04 19:22] VITALS: BP 125/55; PULSE 66; RESP 16; TEMP 36.6; O2SAT 95
[2025-05-04 20:10] LABS: Glucose, Whole Blood 215 mg/dL (60-115)
[2025-05-05 03:29] VITALS: BP 152/68; PULSE 73; RESP 14; TEMP 36.2; O2SAT 93
[2025-05-05] MEDS: oxyCODONE HCl Immed Release 5 MG TABLET PO ×2 (03:36→12:50)
[2025-05-05 07:27] LABS: Glucose, Whole Blood 115 mg/dL (60-115)
[2025-05-05 07:29] VITALS: BP 161/74; PULSE 69; RESP 16; TEMP 36.3; O2SAT 96
[2025-05-05] MEDS: 0.9 % Sodium Chloride Flush 3 ML SYRINGE IVFLUSH ×3 (07:36→21:27)
[2025-05-05] MEDS: Metoprolol Succinate ER 50 MG TAB.ER.24H PO (07:36)
[2025-05-05] MEDS: Umeclidinium/Vilanterol 62.5/25 BLST.W.DEV 1 PUFF INHALE (08:05)
[2025-05-05 08:09] VITALS: PULSE 73; RESP 16; O2SAT 92
--- NOTE | 2025-05-05 09:02 | P.PNIM_ITS ---
Subjective Subjective Date of Service: 05/05/25 Interval History: Patient is doing much better, remains confused but appear to be at baseline Review of Systems All 12 systems were reviewed and normal except as noted in HPI. Physical Exam 2 Vital Signs: Vital Signs: Last Vital Signs Temp 97.4 F 05/05/25 07:29 Pulse 73 05/05/25 08:09 Resp 16 05/05/25 08:09 BP 161/74 H 05/05/25 07:29 Pulse Ox 96 05/05/25 07:29 O2 Del Method Room Air 05/05/25 07:29 BMI result Body Mass Index 27.0 General: Oriented to self, no acute distress Resp: CTA bilateral CVS: S1,S2,RRR GI: +BS, NT, no distention Skin: No rash Neuro: motor grossly intact Psych: appropriate affect Objective Data Active Medications Acetaminophen (Acetaminophen 325 Mg Tablet) 650 mg PO Q6H PRN PRN Reason: Pain, Mild 1-3,fever,headache Last Admin: 05/05/25 07:35 Dose: 650 mg Documented By: GEOFF Albuterol Sulfate (Albuterol Sulfate 90 Mcg 8 Gm Inhaler) 1 puff INHALE QID PRN PRN Reason: Shortness Of Breath Or Wheezing Alprazolam (Alprazolam 0.25 Mg Tablet) 0.25 mg PO DAILY PRN PRN Reason: Anxiety Last Admin: 05/02/25 01:32 Dose: 0.25 mg Documented By: HA Ascorbic Acid (Ascorbic Acid 500 Mg Tablet) 500 mg PO DAILY [facility] Last Admin: 05/05/25 07:35 Dose: 500 mg Documented By: GEOFF Atorvastatin Calcium (Atorvastatin Calcium 40 Mg Tablet) 40 mg PO BEDTIME [facility] Last Admin: 05/04/25 20:43 Dose: 40 mg Documented By: LEANDRO Calcium Carbonate (Calcium Carbonate 750 Mg Tab.Chew) 750 mg PO Q4H PRN PRN Reason: Heartburn Cyanocobalamin (Cyanocobalamin (Vitamin B-12) 1,000 Mcg Tablet) 1,000 mcg PO DAILY [facility] Last Admin: 05/05/25 07:36 Dose: 1,000 mcg Documented By: GEOFF Dextrose (Dextrose 50 % 25 Gm/50 Ml Syringe) 25 gm IVPUSH Q15M PRN; Protocol PRN Reason: per Hypoglycemia Standing Ord. Digoxin (Digoxin 0.125 Mg Tablet) 0.125 mg PO MoWeFr@0900 [facility]; Protocol Last Admin: 05/04/25 08:03 Dose: 0.125 mg Documented By: JUNE Famotidine (Famotidine 20 Mg Tablet) 40 mg PO BEDTIME [facility] Last Admin: 05/04/25 20:43 Dose: 40 mg Documented By: LEANDRO Furosemide (Furosemide 40 Mg Tablet) 40 mg PO DAILY [facility]; Protocol Last Admin: 05/05/25 07:35 Dose: 40 mg Documented By: GEOFF Glucose (Glucose Gel 15 Gm Gel..Gram.) 15 gm PO Q15M PRN; Protocol PRN Reason: per Hypoglycemia Standing Ord. Piperacillin Sod/Tazobactam (Sod 2.25 gm/ Sodium Chloride) 50 mls @ 100 mls/hr IV Q6H [facility] Last Infusion: 05/05/25 06:01 Dose: Infused Documented By: LEANDRO Insulin Human Lispro (Insulin Lispro 100 Unit/Ml 3 Ml Vial) 0 unit SUBCUT QIDACHS [facility]; Protocol Last Admin: 05/05/25 07:31 Dose: Not Given Documented By: GEOFF Non-Admin Reason: No Insulin Coverage Levothyroxine Sodium (Levothyroxine Sodium 50 Mcg Tablet) 50 mcg PO DAILY@0600 [facility] Last Admin: 05/05/25 05:24 Dose: 50 mcg Documented By: LEANDRO Magnesium Hydroxide (Milk Of Magnesia 30 Ml Oral.Susp) 30 ml PO DAILY PRN PRN Reason: Constipation Last Admin: 05/03/25 11:28 Dose: 30 ml Documented By: AZUL Meclizine HCl (Meclizine Hcl 12.5 Mg Tablet) 12.5 mg PO TID PRN PRN Reason: Vertigo Melatonin (Melatonin 3 Mg Tablet) 6 mg PO BEDTIME PRN PRN Reason: Insomnia Metoprolol Succinate (Metoprolol Succinate Er 50 Mg Tab.Er.24h) 50 mg PO DAILY [facility]; Protocol Last Admin: 05/05/25 07:36 Dose: 50 mg Documented By: GEOFF Nystatin (Nystatin Powder 15 Gm Bottle) 1 appl TOPICAL DAILY [facility]; Protocol Last Admin: 05/04/25 08:04 Dose: 1 appl Documented By: JUNE Ondansetron HCl (Ondansetron Hcl 4 Mg/2 Ml Vial) 4 mg IVPUSH Q4H PRN PRN Reason: Nausea and Vomiting Last Admin: 05/02/25 14:15 Dose: 4 mg Documented By: RUPERT Oxycodone HCl (Oxycodone Hcl Immed Release 5 Mg Tablet) 5 mg PO Q6H PRN PRN Reason: Pain, Moderate(Pain Scale 4-6) Last Admin: 05/05/25 03:36 Dose: 5 mg Documented By: LEANDRO Polyethylene Glycol (Polyethylene Glycol 3350 17 Gm Powd.Pack) 17 gm PO Q48H [facility] Last Admin: 05/04/25 16:53 Dose: Not Given Documented By: JUNE Non-Admin Reason: Loose stools Pregabalin (Pregabalin 100 Mg Capsule) 100 mg PO Q12H [facility] Last Admin: 05/05/25 07:35 Dose: 100 mg Documented By: GEOFF Ropinirole HCl (Ropinirole Hcl 0.25 Mg Tablet) 0.25 mg PO BEDTIME [facility] Last Admin: 05/04/25 20:43 Dose: 0.25 mg Documented By: LEANDRO Sitagliptin Phosphate (Sitagliptin Phosphate 25 Mg Tablet) 25 mg PO DAILY [facility] Last Admin: 05/05/25 07:35 Dose: 25 mg Documented By: GEOFF Sodium Chloride (0.9 % Sodium Chloride Flush 3 Ml Syringe) [facility] Last Admin: 05/05/25 07:36 Dose: 3 ml Documented By: GEOFF Tamsulosin HCl (Tamsulosin Hcl 0.4 Mg Capsule) 0.4 mg PO BEDTIME [facility] Last Admin: 05/04/25 20:43 Dose: 0.4 mg Documented By: LEANDRO Vitamin D (Cholecalciferol (Vitamin D3) 25 Mcg Tablet) 25 mcg PO DAILY [facility] Last Admin: 05/05/25 07:35 Dose: 25 mcg Documented By: GEOFF Zolpidem Tartrate (Zolpidem Tartrate 5 Mg Tablet) 5 mg PO BEDTIME PRN PRN Reason: Insomnia Last Admin: 05/04/25 22:27 Dose: 5 mg Documented By: LEANDRO Labs 05/03/25 05:35 05/03/25 05:35 Labs: Laboratory Results - last 24 hr 05/04/25 05/04/25 05/04/25 11:41 15:55 20:06 POC Glucose 180 H 130 H 215 H 05/05/25 07:21 POC Glucose 115 Assessment and Plan (1) Urinary frequency: Status: Acute (2) Encephalopathy: Status: Acute Plan 89yo F with dementia presenting with confusion due to UTI UTI, negative urine culture. has been on Zosyn, will stop at this time, and add amoxillin acute encephalopathy due to infection, improved - treat infection as above hypothyroidism, new diagnosis - started levothyroxine 50 mcg/d; recheck TSH + free T4 in 4 wk acute/chronic anemia - monitor H+H CKD3: SCr at baseline pAF: continue metoprolol succinate + digoxin; not on apixaban due to recent GI bleed [Mar 2025] chronic HFpEF: furosemide, metoprolol succinate COPD: prn albuterol HLD: statin DM2: correction-dose lispro, Januvia GERD: famotidine pancreatic duct stone: plan from last admission in April; ERCP and EUS at [facility] as outpt VTE ppx: SCDs, no heparin given recent GI bleed dispo: PT recommends STR In my clinical judgment, the patient requires continued inpatient hospitalization for the following reasons: IV ABX Quality Stroke Does the patient have a stroke diagnosis?: No VTE Prior VTE?: No VTE Risk Level:: Medical - moderate - high VTE Device Contraindication: Treatment Not Indicated VTE Drug Contraindication: N/A - Med Ordered
[2025-05-05 11:21] LABS: Glucose, Whole Blood 190 mg/dL (60-115)
--- NOTE | 2025-05-05 11:27 | HO.SKINPHOTO ---
Pt noted to have slow to raymond redness on left buttock, foam dressing applied to site. Small foam coccyx applied to for protection. Heels offloaded with pillows. Waffle cushion applied to chair. SIPPS protocol initiated. Pt educated on importance of turn and reposition every two hours to prevent further deterioration. Location: Left buttock
--- NOTE | 2025-05-05 13:42 | HO.WOUND ---
Wound Consult: Initial 89 yr old female admitted to [facility] on 05/02/25- See progress notes and H&P for detailed history. Wound consult placed for left buttock. Patient agreeable to assessment and photo documentation. Patient with SIPP in place, waffle cushion in chair. Patient reports discomfort to right breast and buttock area. Patient with antifungal powder in place for folds. Minimal moisture to folds with small area of redness to left breast. Buttock Etiology: intact dry slowly blanching redness- ? MASD vs Fungal vs pressure- does not appear over bony prominence and is blanching- skin with chapped appearance extending hola-anal Drainage / Odor: none Edges: ? defined Hola wound: ? No Induration, Fluctuance or Warmth noted Pain: yes Goals of Treatment: ? antifungal powder, foam offloading Recommendations: 1. Turn and Reposition every 2 hours and as needed for patient comfort. Use pillows or wedges to support off loading positions. 2. Off Load all bony prominences with use of pillows and heel boots if needed. Apply Preventative foams where needed. 3. Monitor for incontinence and moisture control, use barrier creams when needed for prevention and treatment. 4. Provide adequate and supplemental nutrition. 5. Order or Continue low air loss mattress. 6. When applicable maintain blood glucose levels per Providers order. buttock/hola anal- apply antifungal powder per provider order, apply foam dressing, change every other day and PRN Re-consult wound care Nurse for wound deterioration or wound changes.
[2025-05-05 15:35] VITALS: BP 124/61; PULSE 72; RESP 16; TEMP 36.4; O2SAT 96
[2025-05-05 16:27] LABS: Glucose, Whole Blood 88 mg/dL (60-115)
[2025-05-05 19:58] VITALS: BP 145/64; PULSE 67; RESP 16; TEMP 36.1; O2SAT 93
[2025-05-05 20:43] LABS: Glucose, Whole Blood 179 mg/dL (60-115)
[2025-05-06] MEDS: oxyCODONE HCl Immed Release 5 MG TABLET PO (03:17)
[2025-05-06 04:00] VITALS: BP 113/65; PULSE 84; RESP 14; TEMP 36; O2SAT 93
[2025-05-06 07:18] VITALS: BP 155/68; PULSE 61; RESP 16; TEMP 36; O2SAT 94
[2025-05-06 07:22] LABS: Glucose, Whole Blood 97 mg/dL (60-115)
[2025-05-06] MEDS: Umeclidinium/Vilanterol 62.5/25 BLST.W.DEV 1 PUFF INHALE (07:57)
[2025-05-06 07:58] VITALS: PULSE 61; RESP 16; O2SAT 94
--- NOTE | 2025-05-06 08:05 | HO.PM.IMPN ---
Subjective Subjective Date of Service: 05/06/25 Interval History: Has some baseline confusion no new issues Review of Systems All 12 systems were reviewed and normal except as noted in HPI. Physical Exam Vital Signs: Vital Signs: Last Vital Signs Temp 96.8 F 05/06/25 07:18 Pulse 61 05/06/25 07:58 Resp 16 05/06/25 07:58 BP 155/68 H 05/06/25 07:18 Pulse Ox 94 05/06/25 07:18 O2 Del Method Room Air 05/06/25 07:18 BMI result Body Mass Index 27.0 General: Oriented to self, no acute distress Resp: CTA bilateral CVS: S1,S2,RRR GI: +BS, NT, no distention Skin: No rash Neuro: motor grossly intact Psych: appropriate affect Objective Data Active Medications Acetaminophen (Acetaminophen 325 Mg Tablet) 650 mg PO Q6H PRN PRN Reason: Pain, Mild 1-3,fever,headache Last Admin: 05/05/25 07:35 Dose: 650 mg Documented By: GEOFF Albuterol Sulfate (Albuterol Sulfate 90 Mcg 8 Gm Inhaler) 1 puff INHALE QID PRN PRN Reason: Shortness Of Breath Or Wheezing Alprazolam (Alprazolam 0.25 Mg Tablet) 0.25 mg PO DAILY PRN PRN Reason: Anxiety Last Admin: 05/02/25 01:32 Dose: 0.25 mg Documented By: HA Amoxicillin/Clavulanate Potassium (Amoxicillin/Potassium Clav 500 Mg Tablet) 500 mg PO Q12H [facility] Last Admin: 05/05/25 21:26 Dose: 500 mg Documented By: LEANDRO Ascorbic Acid (Ascorbic Acid 500 Mg Tablet) 500 mg PO DAILY [facility] Last Admin: 05/05/25 07:35 Dose: 500 mg Documented By: GEOFF Atorvastatin Calcium (Atorvastatin Calcium 40 Mg Tablet) 40 mg PO BEDTIME [facility] Last Admin: 05/05/25 21:27 Dose: 40 mg Documented By: LEANDRO Calcium Carbonate (Calcium Carbonate 750 Mg Tab.Chew) 750 mg PO Q4H PRN PRN Reason: Heartburn Last Admin: 05/05/25 21:27 Dose: 750 mg Documented By: LEANDRO Cyanocobalamin (Cyanocobalamin (Vitamin B-12) 1,000 Mcg Tablet) 1,000 mcg PO DAILY [facility] Last Admin: 05/05/25 07:36 Dose: 1,000 mcg Documented By: GEOFF Dextrose (Dextrose 50 % 25 Gm/50 Ml Syringe) 25 gm IVPUSH Q15M PRN; Protocol PRN Reason: per Hypoglycemia Standing Ord. Digoxin (Digoxin 0.125 Mg Tablet) 0.125 mg PO MoWeFr@0900 [facility]; Protocol Last Admin: 05/04/25 08:03 Dose: 0.125 mg Documented By: JUNE Famotidine (Famotidine 20 Mg Tablet) 40 mg PO BEDTIME [facility] Last Admin: 05/05/25 21:27 Dose: 40 mg Documented By: LEANDRO Furosemide (Furosemide 40 Mg Tablet) 40 mg PO DAILY [facility]; Protocol Last Admin: 05/05/25 07:35 Dose: 40 mg Documented By: GEOFF Glucose (Glucose Gel 15 Gm Gel..Gram.) 15 gm PO Q15M PRN; Protocol PRN Reason: per Hypoglycemia Standing Ord. Insulin Human Lispro (Insulin Lispro 100 Unit/Ml 3 Ml Vial) 0 unit SUBCUT QIDACHS [facility]; Protocol Last Admin: 05/05/25 21:26 Dose: 2 unit Documented By: LEANDRO Levothyroxine Sodium (Levothyroxine Sodium 50 Mcg Tablet) 50 mcg PO DAILY@0600 [facility] Last Admin: 05/06/25 05:25 Dose: 50 mcg Documented By: LEANDRO Magnesium Hydroxide (Milk Of Magnesia 30 Ml Oral.Susp) 30 ml PO DAILY PRN PRN Reason: Constipation Last Admin: 05/03/25 11:28 Dose: 30 ml Documented By: AZUL Meclizine HCl (Meclizine Hcl 12.5 Mg Tablet) 12.5 mg PO TID PRN PRN Reason: Vertigo Melatonin (Melatonin 3 Mg Tablet) 6 mg PO BEDTIME PRN PRN Reason: Insomnia Metoprolol Succinate (Metoprolol Succinate Er 50 Mg Tab.Er.24h) 50 mg PO DAILY [facility]; Protocol Last Admin: 05/05/25 07:36 Dose: 50 mg Documented By: GEOFF Nystatin (Nystatin Powder 15 Gm Bottle) 1 appl TOPICAL DAILY [facility]; Protocol Last Admin: 05/05/25 11:12 Dose: 1 appl Documented By: GEOFF Ondansetron HCl (Ondansetron Hcl 4 Mg/2 Ml Vial) 4 mg IVPUSH Q4H PRN PRN Reason: Nausea and Vomiting Last Admin: 05/05/25 21:32 Dose: 4 mg Documented By: LEANDRO Oxycodone HCl (Oxycodone Hcl Immed Release 5 Mg Tablet) 5 mg PO Q6H PRN PRN Reason: Pain, Moderate(Pain Scale 4-6) Last Admin: 05/06/25 03:17 Dose: 5 mg Documented By: LEANDRO Polyethylene Glycol (Polyethylene Glycol 3350 17 Gm Powd.Pack) 17 gm PO Q48H [facility] Last Admin: 05/04/25 16:53 Dose: Not Given Documented By: JUNE Non-Admin Reason: Loose stools Pregabalin (Pregabalin 100 Mg Capsule) 100 mg PO Q12H [facility] Last Admin: 05/05/25 21:27 Dose: 100 mg Documented By: LEANDRO Ropinirole HCl (Ropinirole Hcl 0.25 Mg Tablet) 0.25 mg PO BEDTIME [facility] Last Admin: 05/05/25 21:26 Dose: 0.25 mg Documented By: LEANDRO Sitagliptin Phosphate (Sitagliptin Phosphate 25 Mg Tablet) 25 mg PO DAILY [facility] Last Admin: 05/05/25 07:35 Dose: 25 mg Documented By: GEOFF Sodium Chloride (0.9 % Sodium Chloride Flush 3 Ml Syringe) 3 ml IVFLUSH QSHIFT [facility] Last Admin: 05/05/25 21:27 Dose: 3 ml Documented By: LEANDRO Tamsulosin HCl (Tamsulosin Hcl 0.4 Mg Capsule) 0.4 mg PO BEDTIME [facility] Last Admin: 05/05/25 21:27 Dose: 0.4 mg Documented By: LEANDRO Vitamin D (Cholecalciferol (Vitamin D3) 25 Mcg Tablet) 25 mcg PO DAILY [facility] Last Admin: 05/05/25 07:35 Dose: 25 mcg Documented By: GEOFF Zolpidem Tartrate (Zolpidem Tartrate 5 Mg Tablet) 5 mg PO BEDTIME PRN PRN Reason: Insomnia Last Admin: 05/05/25 21:27 Dose: 5 mg Documented By: LEANDRO Labs 05/03/25 05:35 05/03/25 05:35 Labs: Laboratory Results - last 24 hr 05/05/25 05/05/25 05/05/25 11:13 16:14 20:37 POC Glucose 190 H 88 179 H 05/06/25 07:17 POC Glucose 97 Assessment and Plan (1) Urinary frequency: Status: Acute (2) Encephalopathy: Status: Acute Plan 89yo F with dementia presenting with confusion and found to have UTI, was initiated on Zosyn, and clinically has improved, cultures have been negative. Zosyn is changed to Augmentin for a total of 7 days. UTI, negative urine culture, started on Zosyn and changed to Amoxi on Acute metabolic encephalopathy related to UTI above, and possible new hypothyroidism, has improved, initially required sitter but no longer needs one. hypothyroidism, new diagnosis started levothyroxine 50 mcg/daily; recheck TSH + free T4 in 4 wk acute/chronic anemia, H/H stable CKD3: SCr at baseline pAF: continue metoprolol succinate + digoxin; not on apixaban due to recent GI bleed [Mar 2025], restarting should be reassess on outpatient basis chronic HFpEF, stable without exacerbation, continue furosemide, metoprolol succinate COPD: prn albuterol HLD: statin DM2: correction-dose lispro, Januvia and ultimately resume home regimen GERD: famotidine pancreatic duct stone: plan from last admission in April; ERCP and EUS at [facility] as outpt VTE ppx: SCDs, no heparin given recent GI bleed dispo: PT recommends STR In my clinical judgment, the patient requires continued inpatient hospitalization for the following reasons: IV ABX Quality Stroke Does the patient have a stroke diagnosis?: No VTE Prior VTE?: No VTE Risk Level:: Medical - moderate - high VTE Device Contraindication: Treatment Not Indicated VTE Drug Contraindication: N/A - Med Ordered
[2025-05-06] MEDS: Metoprolol Succinate ER 50 MG TAB.ER.24H PO (08:17)
[2025-05-06] MEDS: 0.9 % Sodium Chloride Flush 3 ML SYRINGE IVFLUSH (08:18)
[2025-05-06 11:18] LABS: Glucose, Whole Blood 178 mg/dL (60-115)
[2025-05-06] MEDS: Flu Vacc TS2025-26(6mo up)/PF 0.5 ML SYRINGE IM (11:53)
--- NOTE | 2025-05-06 12:07 | MHC.CM.PN ---
pt going to [facility] today at [facility] sister notiifed
--- NOTE | 2025-05-06 12:57 | HO.WOUND ---
Wound Consult: Initial 89 yr old female admitted to [facility] on 05/02/25- See progress notes and H&P for detailed history. Wound consult placed for left buttock. Patient agreeable to assessment and photo documentation. Patient with SIPP in place, waffle cushion in chair. Patient reports discomfort to right breast and buttock area. Patient with antifungal powder in place for folds. Minimal moisture to folds with small area of redness to left breast. Buttock 05/05/25 05/06/25 Improving tissue - tissue less redness noted currently blanchable and remains intact and dry. Patient c/o discomfort with foam dressing triad cream applied in place patient reported increase comfort. Left buttock - Off Load Pressure with Q2 hr turns and use of pillows - Cleanse with PH balance spray or wipes, pat dry. ?Apply thin layer of Triad to wound bed - only pat and dab no scrub and rub when soiling occurs. Reapply thin layer PRN after each episode of incontinence. Details from last assessment 05/05/25: Etiology: intact dry slowly blanching redness- ? MASD vs Fungal vs pressure- does not appear over bony prominence and is blanching- skin with chapped appearance extending hola-anal Drainage / Odor: none Edges: ? defined Hola wound: ? No Induration, Fluctuance or Warmth noted Pain: yes Goals of Treatment: ? antifungal powder, foam offloading Recommendations: 1. Turn and Reposition every 2 hours and as needed for patient comfort. Use pillows or wedges to support off loading positions. 2. Off Load all bony prominences with use of pillows and heel boots if needed. Apply Preventative foams where needed. 3. Monitor for incontinence and moisture control, use barrier creams when needed for prevention and treatment. 4. Provide adequate and supplemental nutrition. 5. Order or Continue low air loss mattress. 6. When applicable maintain blood glucose levels per Providers order. buttock/hola anal- apply antifungal powder per provider order, apply foam dressing, change every other day and PRN Re-consult wound care Nurse for wound deterioration or wound changes.
[2025-05-06 14:57] VITALS: BP 126/60; PULSE 63; RESP 16; TEMP 36.1; O2SAT 97
[2025-05-06 16:06] LABS: Glucose, Whole Blood 237 mg/dL (60-115)
--- NOTE | 2025-05-06 17:22 | P.DS_ITS ---
DS: Providers Provider Date of Service: 05/06/25 Date of admission: 05/02/25 03:43 Date of discharge: 05/06/25 Primary care physician: Solange Jacobs MD Consults: 05/05/25 12:49 Consult to Wound Care Routine Consulting Provider: [facility] Wound Care Management Reason for consultation: question stage I to left buttock DS: Diagnosis Discharge Diagnosis (1) Urinary frequency: Status: Acute (2) Encephalopathy: Status: Acute DS: Summary Hospital Course Hospital Course: Admission HPI: Chief Complaint: Confusion Zuleyma Del Rosario is 89 years old woman years old woman with a complex past medical history including dementia, essential hypertension, hyperlipidemia, AFib, type 2 diabetes mellitus, CVA, dysphagia, GERD, COPD, CKD, and anemia presents to ED due to anxiety and a foggy head. In the ED, she was found to have stable vital signs. Blood workup showed no leukocytosis. Hemoglobin is 10.3 and platelets 220. There are no significant electrolyte imbalances. BUN is 12 and creatinine 1.12. Glucose 119. LFTs are essentially unremarkable. Urinalysis results suggest UTI. Urine toxicology is negative. Serology for COVID-19, influenza RSV is negative. ECG showed atrial fibrillation, heart rate 97 beats per minute. Head CT scan is negative. ED tx: Zofran 4 mg sublingual, NS 1 L bolus, Zosyn 3.3 with 5 mg IV Hospital course: 89yo F with dementia presenting with confusion and found to have UTI, was initiated on Zosyn, and clinically has improved, cultures have been negative. Zo syn was changed to Augmentin for a total of 5 days, has completed course of antibioitics and in fact cultures have been negativ UTI, negative urine culture, started on Zosyn and changed to Augmentin and has completed 5 days Acute metabolic encephalopathy related to UTI above, and possible new hypothyroidism, has improved, initially required sitter but no longer needs one. hypothyroidism, new diagnosis started levothyroxine 50 mcg/daily; recheck TSH + free T4 in 4 wk acute/chronic anemia, H/H stable CKD3: SCr at baseline pAF: continue metoprolol succinate + digoxin; not on apixaban due to recent GI bleed [Mar 2025], restarting should be reassess on outpatient basis chronic HFpEF, stable without exacerbation, continue furosemide, metoprolol succinate COPD: prn albuterol HLD: statin DM2: correction-dose lispro, Januvia and ultimately resume home regimen GERD: famotidine pancreatic duct stone: plan from last admission in April; ERCP and EUS at [facility] as outpt Time Attestation Discharge Coordination Time (in mins): 42 Quality: Safe Use of Opioids Does Pt have an Active Cancer Diagnosis on the Problem List?: No Quality: Stroke Does the patient have a stroke diagnosis?: No Physical Exam Vital Signs: Vital Signs: Last Vital Signs Temp 97.0 F 05/06/25 14:57 Pulse 63 05/06/25 14:57 Resp 16 05/06/25 14:57 BP 126/60 05/06/25 14:57 Pulse Ox 97 05/06/25 14:57 O2 Del Method Room Air 05/06/25 07:18 BMI result Body Mass Index 27.0 Const: Other: General: AO X 3, no acute distress Resp: CTA bilateral CVS: S1,S2,RRR GI: +BS, NT, no distention Skin: No rash Neuro: motor grossly intact Psych: appropriate affect DS: Data Data Completed and Pending Labs on day of discharge: Laboratory Results - last 24 hr 05/05/25 05/06/25 05/06/25 20:37 07:17 11:12 POC Glucose 179 H 97 178 H 05/06/25 15:58 POC Glucose 237 H Discharge Plan Discharge Anticipated Discharge Date/Time: 05/06/25 08:12 Patient Disposition: Xfer SNF Discharge Diagnosis: UTI, metabolic encephalopathy, hypothyroidism Referrals: [facility] [Other] - 1 Week Po,Solange Giles MD [Primary Care Provider, Internal Medicine] - 1 Week Discharge Medications: New levothyroxine 50 mcg Tablet 50 mcg PO DAILY@0600 Qty: 90 0RF Continued (DME) lancets [FreeStyle Lancets] 28 gauge misc See Rx Instructions .ROUTE .MEDSUPPLY Qty: 100 3RF Rx Instructions: use to test sugar once a day cyanocobalamin (vitamin B-12) [Vitamin B-12] 1,000 mcg tablet 1,000 mcg PO DAILY Qty: 90 0RF ascorbic acid (vitamin C) [Vitamin C] 500 mg tablet 500 mg PO DAILY Qty: 90 1RF cholecalciferol (vitamin D3) 25 mcg (1,000 unit) capsule 25 mcg PO DAILY Qty: 90 1RF (DME) incontinence pad, liner, disp Pad See Rx Instructions .Route Qty: 60 5RF Rx Instructions: As directed (DME) FreeStyle Lite Strips Strip See Rx Instructions .ROUTE .MEDSUPPLY Qty: 100 3RF Rx Instructions: As directed check the BS QD (DME) Adult pull ups See Rx Instructions .Route .MEDSUPPLY Qty: 300 11RF Rx Instructions: As directed atorvastatin [Lipitor] 40 mg tablet 40 mg PO BEDTIME Qty: 90 3RF umeclidinium-vilanterol [Anoro Ellipta] 62.5-25 mcg/actuation blister with device 1 inh inhalation DAILY Qty: 3 3RF alprazolam 0.25 mg tablet 0.25 mg PO DAILY PRN (Reason: anxiety) Qty: 20 0RF zolpidem 5 mg tablet 5 mg PO BEDTIME PRN (Reason: insomnia) Qty: 30 0RF pregabalin 100 mg capsule 100 mg PO Q12H 31 Days Qty: 62 2RF meclizine 12.5 mg Tablet 12.5 mg PO TID PRN (Reason: Vertigo) digoxin 125 mcg (0.125 mg) tablet 125 mcg PO MOWEFR albuterol sulfate 90 mcg/actuation Hfa Aerosol Inhaler 1 inh INHALATION QID PRN (Reason: Shortness Of Breath Or Wheezing) tramadol 50 mg tablet 50 mg PO BID PRN (Reason: pain) nystatin 100,000 unit/gram powder 1 appl topical DAILY sitagliptin 25 mg Tablet 25 mg PO DAILY diclofenac sodium 1 % gel 1 ea topical QID PRN (Reason: Pain) ropinirole 0.25 mg Tablet 0.25 mg PO BEDTIME 30 Days Qty: 30 0RF oxycodone 5 mg Tablet 5 mg PO Q6H PRN (Reason: Pain, Moderate(Pain Scale 4-6)) 3 Days Qty: 5 0RF Rx Instructions: Partial Fill upon patient request. glycerin (child) Suppository 2 supp OK DAILY PRN (Reason: Constipation) polyethylene glycol 3350 [Gavilax] 17 gram/dose powder 17 g PO Q48H Mylanta Coat-Cool 1,200 mg-270 mg -80 mg/10 mL suspension 10 ml PO BID PRN (Reason: heartburn) metoprolol succinate 50 mg tablet extended release 24 hr 50 mg PO DAILY (DME) PEDIATRIC FRONT WHEELED WALKER See Rx Instructions .Route .MEDSUPPLY Qty: 1 0RF Rx Instructions: As directed furosemide 40 mg tablet 40 mg PO DAILY Qty: 90 0RF tamsulosin 0.4 mg capsule 0.4 mg PO BEDTIME 90 Days Qty: 90 3RF famotidine 40 mg tablet 40 mg PO BEDTIME Qty: 90 3RF Discharge Orders: Discharge Order (Routine); Ordered 05/06/25 Ordered By: Alton Borjas Diet: Advance to usual diet Activity on Discharge: As tolerated Stand Alone Forms: Patient Portal Discharge page Print Language: Martiniquais Care Plan Goals: recovery from uti, encephalopathy and newly diagnosed hypOthyroidism Health Concerns: see above Plan of Treatment: To short term rehab continue levothyroxine and recheckj TSH and FT4 in 4 weeks Assessment: see above
== END 2025-05-06 17:48 | disposition skilled nursing facility (03) | DRG 689 ==
LOC: HO.ED 23:29 → HO.EDOVER 05-02 03:48 → HO.S3 05-02 04:25
PROVIDERS: Family Medicine; Admitting Provider Internal Medicine; Emergency Provider Emergency Medicine; PCP Internal Medicine; Visit Provider Internal Medicine
DX: N39.0 Urinary tract infection, site not specified (principal); G92.8 Other toxic encephalopathy; I13.0 Hypertensive heart and chronic kidney disease with heart failure and stage 1 through stage 4 chronic kidney disease, or unspecified chronic kidney disease; I50.32 Chronic diastolic (congestive) heart failure; F03.911 Unspecified dementia, unspecified severity, with agitation; J44.9 Chronic obstructive pulmonary disease, unspecified; E78.5 Hyperlipidemia, unspecified; N18.31 Chronic kidney disease, stage 3a; I48.0 Paroxysmal atrial fibrillation; D63.1 Anemia in chronic kidney disease; K21.9 Gastro-esophageal reflux disease without esophagitis; K86.89 Other specified diseases of pancreas; E11.22 Type 2 diabetes mellitus with diabetic chronic kidney disease; E03.9 Hypothyroidism, unspecified; Z20.822 Contact with and (suspected) exposure to COVID-19; Z87.891 Personal history of nicotine dependence; Z79.890 Hormone replacement therapy; Z79.899 Other long term (current) drug therapy
CPT/HCPCS: 36415; 70450; 80048; 80053; 80076; 80307; 81001; 82947; 83690; 83735; 83880; 84439; 84443; 84484; 85014; 85018; 85025; 85027; 85610; 87086; 87637; 90656; 93005; 97110; 97116; 97162; 97530; 99285; J2405; J2470; J2543; J3480

== ENCOUNTER → 2025-05-01 18:00 | Outpatient (BNV) | payer MEDICARE, OTHER, SELFPAY | PROVIDERS: Admitting Provider Internal Medicine; Emergency Provider Emergency Medicine; Visit Provider Internal Medicine | DX: I48.91 Unspecified atrial fibrillation (principal); I21.09 ST elevation (STEMI) myocardial infarction involving other coronary artery of anterior wall | CPT/HCPCS: 93010 ==

== ENCOUNTER → 2025-05-02 03:43 | Outpatient (BNV) | payer MEDICARE, OTHER, SELFPAY | PROVIDERS: Admitting Provider Internal Medicine; Emergency Provider Emergency Medicine; Visit Provider Internal Medicine | DX: G92.8 Other toxic encephalopathy (principal); N30.00 Acute cystitis without hematuria | CPT/HCPCS: 99222; 99232; 99239; 99499 ==

== ENCOUNTER → 2025-05-02 | Outpatient (BNV) | payer MEDICARE, OTHER, SELFPAY | PROVIDERS: Emergency Provider Emergency Medicine; Visit Provider Radiology Diagnostic Radiology | DX: R41.82 Altered mental status, unspecified (principal) | CPT/HCPCS: 70450 ==

== ENCOUNTER 2025-05-24 06:53 | Outpatient (REF) | payer SELFPAY ==
[2025-05-24 06:57] LABS: MANUAL DIFF FLAG NO
--- OUTSIDE RECORDS SUMMARY | 2025-05-24 06:57 | XMS_ITS | Encounter Summary ---
Author Organization [facility] Address [address] [place] [address] Phone Care Team Providers Care Surgical Pathologist Name Role Phone Solange Jacobs MD Primary Care Provider [phone] Encounter Details Date Type Department Care Team (Late st Contact Info) Description 10/10/2022 Procedure Pass [facility], Ct Scan - [facility] [address] [place] [address] Social History Tobacco Use Types Packs/Day Years [...] documented as of this encounter Care Teams Surgical Pathologist Relationship Specialty Start Date End Date Solange Jacobs MD [address] [place] [address] PCP - General Internal Medicine 08/26/17 documented as of this encounter Additional Source Comments The information contained in this document represents components of the legal health record. It is not the complete legal health record.[facility]
--- OUTSIDE RECORDS SUMMARY | 2025-05-24 06:57 | XMS_ITS | Encounter Summary ---
Author Organization [facility] Address [address] [place] [phone] Phone Care Team Providers Care Labor Relations Analyst Name Role Phone Solange Jacobs MD Primary Care Provider [phone] Encounter Details Date Type Department Care Team (Late st Contact Info) Description 10/07/2022 Procedure Pass [facility] [address] [place] [address] Social History Tobacco Use Types Packs/Day Years [...] documented as of this encounter Care Teams Labor Relations Analyst Relationship Specialty Start Date End Date Solange Jacobs MD [address] [place] [phone] PCP - General Internal Medicine 08/26/17 documented as of this encounter Additional Source Comments The information contained in this document represents components of the legal health record. It is not the complete legal health record.[facility]
--- OUTSIDE RECORDS SUMMARY | 2025-05-24 06:57 | XMS_ITS | Encounter Summary ---
Author Organization [facility] Address [address] [place] [phone] Phone Care Team Providers Care Graphic Production Artist Name Role Phone Solange Jacobs MD Primary Care Provider [phone] Encounter Details Date Type Department Care Team (Late st Contact Info) Description 03/10/2021 Procedure Pass [facility], Ct Scan - [facility] [address] [place] [address] Social History Tobacco Use Types Packs/Day Years [...] documented as of this encounter Care Teams Graphic Production Artist Relationship Specialty Start Date End Date Solange Jacobs MD [address] [place] [address] Drive [address] [place] [address] PCP - General Internal Medicine 08/26/17 documented as of this encounter Additional Source Comments The information contained in this document represents components of the legal health record. It is not the complete legal health record.[facility]
--- OUTSIDE RECORDS SUMMARY | 2025-05-24 06:57 | XMS_ITS | Encounter Summary ---
Author Organization [facility] Address [address] [place] [address] Phone Care Team Providers Care Special Client Bus Driver Name Role Phone Solange Jacobs MD Primary Care Provider [phone] Encounter Details Date Type Department Care Team (Late st Contact Info) Description 08/26/2017 Procedure Pass [facility], Ct Scan - [facility] [address] [place] [address] Social History Tobacco Use Types Packs/Day Years [...] documented as of this encounter Care Teams Special Client Bus Driver Relationship Specialty Start Date End Date Solange Jacobs MD [address] [place] [address] [place] [phone] PCP - General Internal Medicine 08/26/17 documented as of this encounter Additional Source Comments The information contained in this document represents components of the legal health record. It is not the complete legal health record.[facility]
--- OUTSIDE RECORDS SUMMARY | 2025-05-24 06:57 | XMS_ITS | Encounter Summary ---
Author Organization [facility] Address [address] [place] [address] Phone Care Team Providers Care Slot Floorman Name Role Phone Solange Jacobs MD Primary Care Provider [phone] Encounter Details Date Type Department Care Team (Late st Contact Info) Description 10/06/2022 Procedure Pass [facility], Ct Scan - [facility] [address] [place] [address] Social History Tobacco Use Types Packs/Day Years [...] documented as of this encounter Care Teams Slot Floorman Relationship Specialty Start Date End Date Solange Jacobs MD [address] [place] [address] PCP - General Internal Medicine 08/26/17 documented as of this encounter Additional Source Comments The information contained in this document represents components of the legal health record. It is not the complete legal health record.[facility]
--- OUTSIDE RECORDS SUMMARY | 2025-05-24 06:57 | XMS_ITS | Encounter Summary ---
Author Organization [facility] Address [address] [place] [address] Phone Care Team Providers Care Contract Writer Name Role Phone Solange Jacobs MD Primary Care Provider [phone] Encounter Details Date Type Department Care Team (Latest Contact Info) Description 05/12/2019 Transcribe Orders [facility] [address] [address] Solange Jacobs MD [address] [place] [address] Hypercalcemia (Primary Dx); Nonspecific abnormal [...] EST) TSH 10.10(H) 0.27 - 4.20 uIU/mL [facility] Blood 05/12/2019 10:2 1 AM EST 05/12/2019 10:42 AM EST us Solange Jacobs MD LAB BLOOD BKR ORDERABLES Elodia l Result Performing Organization Address [facility]/ZIP Co de Phone Number [address] [address] * T4, total (05/12/2019 10:21 AM EST) THYROXINE 5.6 4.6 - 12.0 ug/dL [facility] Blood 05/12/2019 10:2 1 AM EST 05/12/2019 10:42 AM EST us Solange Jacobs MD LAB BLOOD ORDERABLES Final Re sult Performing Organization Address [facility] Co de Phone Number [address] [address] * Calcium (05/12/2019 10:21 AM EST) CALCIUM 9.8 8.4 - 10.3 mg/dL [facility] Blood 05/12/2019 10:2 1 AM EST 05/12/2019 10:42 AM EST us Solange Jacobs MD LAB BLOOD BKR ORDERABLES Elodia l Result Performing Organization Address [facility] Co de Phone Number [address] [address] * (ABNORMAL) Parathyroid hormone (PTH) (05/12/2019 10:21 AM EST) PARATHYROID HORMONE 79(H) 15 - 65 pg/mL [facility] Blood 05/12/2019 10:2 1 AM EST 05/12/2019 10:43 AM EST us Solange Jacobs MD LAB BLOOD BKR ORDERABLES Elodia l Result [facility] [address] [place] [address] documented in this encounter Visit Diagnoses Diagnosis [...] documented as of this encounter Care Teams Contract Writer Relationship Specialty Start Date End Date Solange Jacobs MD [address] [place] [phone] PCP - General Internal Medicine 08/26/17 documented as of this encounter Additional Source Comments The information contained in this document represents components of the legal health record. It is not the complete legal health record.[facility]
--- OUTSIDE RECORDS SUMMARY | 2025-05-24 06:57 | XMS_ITS | Encounter Summary ---
Author Organization [facility] Address [address] [place] [address] Phone Care Team Providers Care Motorcycle Designer Name Role Phone Solange Jacobs MD Primary Care Provider [phone] Reason for Referral * Physical Therapy (Routine) - Closed Specialty Diagnoses / Procedures Referred By Contac t Referred To Contact Physical Therapy Diagnoses Encounter for rehabilitation System, Provider Not In, [facility] [id number] [place] [address] Phone: tel: Referral ID Status Reason Start Date Expiration Date Visits Re quested Visits Authorized [id number] Closed 07/01/2018 06/01/2019 99 [phone] Encounter Details Date Type Department Care Team (Latest Contact Info) Description 06/10/2018 Transcribe Orders [facility] [address] [place] [address] Solange Jacobs MD [address] [place] [phone] Encounter for rehabilitation (Primary Dx) Social [...] Diagnoses Orde r Schedule Ambulatory referral to [facility] Physical Therapy Outpatient Referral Routine [...] documented as of this encounter Care Teams Motorcycle Designer Relationship Specialty Start Date End Date Solange Jacobs MD 2 [facility] [address] [place] [phone] PCP - General Internal Medicine 08/26/17 documented as of this encounter Additional Source Comments The information contained in this document represents components of the legal health record. It is not the complete legal health record.[facility]
--- OUTSIDE RECORDS SUMMARY | 2025-05-24 06:58 | XMS_ITS | Encounter Summary ---
Author Organization [facility] Address [address] [place] [address] Phone Care Team Providers Care Supervisor Smoke Control Name Role Phone Solange Jacobs MD Primary Care Provider [phone] Encounter Details Date Type Department Care Team (Late st Contact Info) Description 03/13/2022 Procedure Pass [facility], Ct Scan - [facility] [address] [place] [address] Social History Tobacco Use Types Packs/Day Years [...] documented as of this encounter Care Teams Supervisor Smoke Control Relationship Specialty Start Date End Date Solange Jacobs MD [address] [place] [address] Drive [address] [place] [address] PCP - General Internal Medicine 08/26/17 documented as of this encounter Additional Source Comments The information contained in this document represents components of the legal health record. It is not the complete legal health record.[facility]
--- OUTSIDE RECORDS SUMMARY | 2025-05-24 06:58 | XMS_ITS | Encounter Summary ---
Author Organization [facility] Address [address] [place] [address] Phone Care Team Providers Care Hand Blocker Name Role Phone Solange Jacobs MD Primary Care Provider [phone] Encounter Details Date Type Department Care Team (Late st Contact Info) Description 07/16/2019 Ancillary Orders [facility], X-Ray - [place] [address] [place] [address] Solange Jacobs MD [address] [place] [address] Pain Social History Tobacco Use [...] documented as of this encounter Care Teams Hand Blocker Relationship Specialty Start Date End Date Po, Solange Jacobo MD [address] [place] [address] [place] [phone] PCP - General Internal Medicine 08/26/17 documented as of this encounter Additional Source Comments The information contained in this document represents components of the legal health record. It is not the complete legal health record.[facility]
--- OUTSIDE RECORDS SUMMARY | 2025-05-24 06:58 | XMS_ITS | Encounter Summary ---
Author Organization [facility] Address [address] [place] [address] Phone Care Team Providers Care Civil Engineering Teacher Name Role Phone Solange Jacobs MD Primary Care Provider [phone] Reason for Referral * MRI/CAT Scan - Closed Specialty Diagnoses / Procedures Referred By Contac t Referred To Contact Radiology Diagnoses Pancreatic cyst Procedures MRI Cholangiopancreatography (MRCP) Oumou Moser PA [address] [place] [address] Phone: tel: fax: Referral ID Status Reason Start Date Expiration Date Visits Re quested Visits Authorized [id number] Closed 03/22/2024 03/22/2025 1 1 Encounter Details Date Type Department Care Team (Latest Contact Info) Description 03/22/2024 Transcribe Orders Virtual Department [address] [place] [address] Oumou Moser PA [address] [place] [address] Pancreatic cyst (Primary Dx) Social History Tobacco [...] clinician's provided indication for this examination in [facility]: Outside Radiology Order; pancreatic cyst [...] clinician's provided indication for this examination in [facility]:Outside Radiology Order; pancreatic cyst TECHNIQUE: [...] pancreas documented in this encounter Care Teams Civil Engineering Teacher Relationship Specialty Start Date End Date Po, Solange Jacobo MD [address] [place] [address] Drive [address] [place] [address] PCP - General Internal Medicine 08/26/17 documented as of this encounter Additional Source Comments The information contained in this document represents components of the legal health record. It is not the complete legal health record.[facility]
--- OUTSIDE RECORDS SUMMARY | 2025-05-24 06:58 | XMS_ITS | Encounter Summary ---
Author Organization [facility] Address [address] [place] [address] Phone Care Team Providers Care A Operator Name Role Phone Solange Jacobs MD Primary Care Provider [phone] Encounter Details Date Type Department Care Team (Late st Contact Info) Description 03/14/2022 Procedure Pass [facility] Admitting Dept Virtual Department [address] [place] [address] Social History Tobacco Use Types Packs/Day Years [...] documented as of this encounter Care Teams A Operator Relationship Specialty Start Date End Date Solange Jacobs MD [address] [place] [phone] PCP - General Internal Medicine 08/26/17 documented as of this encounter Additional Source Comments The information contained in this document represents components of the legal health record. It is not the complete legal health record.[facility]
--- OUTSIDE RECORDS SUMMARY | 2025-05-24 06:58 | XMS_ITS | Encounter Summary ---
Author Organization [facility] Address [address] [place] [address] Phone Care Team Providers Care Welding Pantograph Machine Operator Name Role Phone Solange Jacobs MD Primary Care Provider [phone] Encounter Details Date Type Department Care Team (Late st Contact Info) Description 11/09/2024 Transcribe Orders [address] [address] Solange Jacobs MD [address] [place] [address] Social History Tobacco Use Types [...] on filedocumented in this encounter Care Teams Welding Pantograph Machine Operator Relationship Specialty Start Date End Date Solange Jacobs MD [address] [place] [address] [place] [phone] PCP - General Internal Medicine 08/26/17 documented as of this encounter Additional Source Comments The information contained in this document represents components of the legal health record. It is not the complete legal health record.[facility]
--- OUTSIDE RECORDS SUMMARY | 2025-05-24 06:58 | XMS_ITS | Encounter Summary ---
Author Organization [facility] Address [address] [place] [address] Phone Care Team Providers Care Back Tender Pulp Drier Name Role Phone Solange Jacobs MD Primary Care Provider [phone] Encounter Details Date Type Department Care Team (Late st Contact Info) Description 01/30/2023 Procedure Pass [facility], Ct Scan - [facility] [address] [place] [address] Social History Tobacco Use Types Packs/Day Years [...] documented as of this encounter Care Teams Back Tender Pulp Drier Relationship Specialty Start Date End Date Reynaldo, Solange Jacobo MD [address] [place] [address] Drive [address] [place] [phone] PCP - General Internal Medicine 08/26/17 documented as of this encounter Additional Source Comments The information contained in this document represents components of the legal health record. It is not the complete legal health record.[facility]
--- OUTSIDE RECORDS SUMMARY | 2025-05-24 06:58 | XMS_ITS | Encounter Summary ---
Author Organization [facility] Address [address] [place] [address] Phone Care Team Providers Care Auto Repair Technician Name Role Phone Solange Jacobs MD Primary Care Provider [phone] Encounter Details Date Type Department Care Team (Late st Contact Info) Description 01/31/2023 Procedure Pass [facility]oscopy Admitting Dept Virtual Department [address] [place] [address] Social History Tobacco Use Types Packs/Day Years [...] documented as of this encounter Care Teams Auto Repair Technician Relationship Specialty Start Date End Date Reynaldo, Solange Jacobo MD [address] [place] [address] PCP - General Internal Medicine 08/26/17 documented as of this encounter Additional Source Comments The information contained in this document represents components of the legal health record. It is not the complete legal health record.[facility]
--- OUTSIDE RECORDS SUMMARY | 2025-05-24 06:58 | XMS_ITS | Encounter Summary ---
Author Organization [facility] Address [address] [place] [address] Phone Care Team Providers Care Button Bradder Name Role Phone Solange Jacobs MD Primary Care Provider [phone] Encounter Details Date Type Department Care Team (Late st Contact Info) Description 03/22/2024 Procedure Pass [facility] [address] [place] [address] Social History Tobacco Use Types Packs/Day Years [...] on filedocumented in this encounter Care Teams Button Bradder Relationship Specialty Start Date End Date Solange Jacobs MD [address] [place] [address] [place] [phone] PCP - General Internal Medicine 08/26/17 documented as of this encounter Additional Source Comments The information contained in this document represents components of the legal health record. It is not the complete legal health record.[facility]
--- OUTSIDE RECORDS SUMMARY | 2025-05-24 06:58 | XMS_ITS | Encounter Summary ---
Author Organization [facility] Address [address] [place] [address] Phone Care Team Providers Care Clinical Exercise Specialist Name Role Phone Solange Jacobs MD Primary Care Provider Encounter Details Date Type Department Care Team (Latest Contact Info) Description 08/05/2019 Ancillary Orders Virtual Department [address] [place] [address] Bee Barnes MD [address] [place] [address] [email or web address] Social History Tobacco Use Types [...] as of this encounter Care Teams Clinical Exercise Specialist Relationship Specialty Start Date End Date Solange Jacobs MD [address] [place] [address] PCP - General Internal Medicine 08/26/17 documented as of this encounter Additional Source Comments The information contained in this document represents components of the legal health record. It is not the complete legal health record.[facility]
--- OUTSIDE RECORDS SUMMARY | 2025-05-24 06:58 | XMS_ITS | Encounter Summary ---
Author Organization [facility] Address [address] [place] [address] Phone Care Team Providers Care Bean Snapper Name Role Phone Solange Jacobs MD Primary Care Provider [phone] Encounter Details Date Type Department Care Team (Latest Contact Info) Description 07/16/2019 Transcribe Orders Virtual Department [address] [place] [address] Eu, Delia Loja MD [address] [place] [address] Primary localized osteoarthritis of pelvic region and [...] documented as of this encounter Care Teams Bean Snapper Relationship Specialty Start Date End Date Reynaldo, Solange Jacobo MD [address] [place] [address] [place] [phone] PCP - General Internal Medicine 08/26/17 documented as of this encounter Additional Source Comments The information contained in this document represents components of the legal health record. It is not the complete legal health record.[facility]
--- OUTSIDE RECORDS SUMMARY | 2025-05-24 06:58 | XMS_ITS | Clinical Summary ---
Author Organization [facility] Address [address] [place] [address] Phone Care Team Providers Care School Commissioner Name Role Phone Solange Jacobs MD Primary Care Provider [phone] Allergies Active Allergy Reactions Criticality Noted Date [...] Active ferrous sulfate 325 mg (65 mg [place] iron) tablet TAKE 1 TABLET BY MOUTH [...] above studies are resulted - PT/OT evaluations -OPHTHALMIC TECH evaluation, patient has passed a bedside nursing [...] Type Department Care Team Description 03/30/2025 Telephone [facility] [address] [place] [address] Gildardo Conde MD STAT ID Referral (STAT ID Referral) 03/30/2025 Transcribe Orders [facility] [address] [place] [address] Gildardo Conde MD Blister of face, neck, and scalp except eye, infected, initial encounter (Primary Dx) 02/23/2025 Orders Only [facility] [address] [place] [address] Homehealth, Interface ProviderMD from Last [...] EDT) SODIUM 137 133 - 146 mmol/L [facility] POTASSIUM 3.8 3.3 - 5.1 mmol/L [facility] CHLORIDE 100 96 - 108 mmol/L [facility] CO2 26 21 - 35 mmol/L [facility] BUN 14 6 - 19 mg/dL [facility] CREATININE 0.90 0.5 - 1.5 mg/dL [facility] GLUCOSE 177(H) 70 - 99 mg/dL [facility] ALBUMIN 3.8(L) 3.9 - 4.8 g/dL [facility] TOTAL PROTEIN 7.2 6.5 - 8.0 g/dL [facility] CALCIUM 9.7 8.4 - 10.3 mg/dL [facility] ALKALINE PHOSPHATASE 138(H) 39 - 117 U/L [facility] TOTAL BILIRUBIN 0.9 0.0 - 1.2 mg/dL [facility] AST 21 0 - 37 U/L [facility] ALT 13 0 - 40 U/L [facility] GLOBULIN 3.4 1 - 4.8 g/dL [facility] EGFR 62 >59 mL/min/1.7 3m2 [facility] Comment:Estimated glomerular filtration rate calculated using the CKD-EPI refit equation. ANION GAP 15 10 - 20 mmol/L [facility] Blood 11/09/2024 9:36 AM EDT 11/09/2024 9:45 AM EDT us Solange Jacobs MD LAB BLOOD BKR ORDERABLES Elodia l Result [address] [address] * (ABNORMAL) Hemoglobin A1c (11/09/2024 9:36 AM EDT) HEMOGLOBIN A1C 7.8(H) 4.3 - 5.8 % [facility] Blood 11/09/2024 9:36 AM EDT 11/09/2024 9:45 AM EDT us Solange Jacobs MD LAB BLOOD BKR ORDERABLES Elodia l Result [facility] [address] [place], [place] [id number] from Last 3 Months or Most Recently Relevant to Health Maintenance Insurance MEDICARE PART A & B [facility] [place] [address] MEDICARE PART A & B [facility] [place] [address] MEDICARE PART A & B Member Subscriber Plan / Payer ( fective 2002-Present) Name:Zuleyma Gutierrez Member ID:[id number] Relation to Subscriber:Self Name:Shanita Gutierrezth Subscriber ID:[id number] Payer ID:[id number] Group ID:Not on file Type:Medicare Address: [employer] 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 It is not the complete legal health record.[facility]
--- OUTSIDE RECORDS SUMMARY | 2025-05-24 06:58 | XMS_ITS | Encounter Summary ---
Author Organization [facility] Address [address] [place] [address] Phone Care Team Providers Care Web Content Specialist Name Role Phone Solange Jacobs MD Primary Care Provider [phone] Encounter Details Date Type Department Care Team (Late st Contact Info) Description 05/24/2021 Procedure Pass [facility], Ct Scan - [facility] [address] [place] [address] Social History Tobacco Use Types Packs/Day Years [...] documented as of this encounter Care Teams Web Content Specialist Relationship Specialty Start Date End Date Solange Jacobs MD [address] [place] [address] Drive [address] [place] [address] PCP - General Internal Medicine 08/26/17 documented as of this encounter Additional Source Comments The information contained in this document represents components of the legal health record. It is not the complete legal health record.[facility]
--- OUTSIDE RECORDS SUMMARY | 2025-05-24 06:58 | XMS_ITS | Encounter Summary ---
Author Organization [facility] Address [address] [place] [address] Phone Care Team Providers Care Position Classification Manager Name Role Phone Solange Jacobs MD Primary Care Provider [phone] Encounter Details Date Type Department Care Team (Late st Contact Info) Description 05/24/2021 Procedure Pass [facility], [address] [address] Social History Tobacco Use Types Packs/Day Years [...] documented as of this encounter Care Teams Position Classification Manager Relationship Specialty Start Date End Date Solange Jacobs MD [address] [facility] [address] [place] [phone] PCP - General Internal Medicine 08/26/17 documented as of this encounter Additional Source Comments The information contained in this document represents components of the legal health record. It is not the complete legal health record.[facility]
--- OUTSIDE RECORDS SUMMARY | 2025-05-24 06:58 | XMS_ITS | Encounter Summary ---
Author Organization [facility] Address [address] [place] [address] Phone Care Team Providers Care Channel Turner Name Role Phone Solange Jacobs MD Primary Care Provider [phone] Encounter Details Date Type Department Care Team (Late st Contact Info) Description 08/05/2019 Ancillary Orders [facility], X-Ray - [address] [address] Bee aBrnes MD [address] [place] [address] [email or web address] Social History Tobacco Use Types Packs/Day [...] documented as of this encounter Care Teams Channel Turner Relationship Specialty Start Date End Date Solange Jacobs MD [address] [place] [phone] PCP - General Internal Medicine 08/26/17 documented as of this encounter Additional Source Comments The information contained in this document represents components of the legal health record. It is not the complete legal health record.[facility]
--- OUTSIDE RECORDS SUMMARY | 2025-05-24 06:58 | XMS_ITS | Encounter Summary ---
Author Organization [facility] Address [address] [place] [address] Phone Care Team Providers Care Counter Supervisor Name Role Phone Solange Jacobs MD Primary Care Provider [phone] Encounter Details Date Type Department Care Team (Late st Contact Info) Description 04/23/2020 Procedure Pass [facility], Ct Scan - [facility] [address] [place] [address] Social History Tobacco Use Types Packs/Day Years [...] documented as of this encounter Care Teams Counter Supervisor Relationship Specialty Start Date End Date Solange Jacobs MD [address] [place] [address] PCP - General Internal Medicine 08/26/17 documented as of this encounter Additional Source Comments The information contained in this document represents components of the legal health record. It is not the complete legal health record.[facility]
--- OUTSIDE RECORDS SUMMARY | 2025-05-24 06:58 | XMS_ITS | Encounter Summary ---
Author Organization [facility] Address [address] [place] [address] Phone Care Team Providers Care Riverboat Captain Name Role Phone Solange Jacobs MD Primary Care Provider [phone] Encounter Details Date Type Department Care Team (Latest Contact Info) Description 03/22/2019 Transcribe Orders [address] [address] Solange Jacobs MD [address] [place] [address] Pure hypercholesterolemia (Primary Dx); Essential [...] (03/22/2019 9:36 AM EDT) HDL 46 mg/dL [facility] Comment: Interpretation <40 mg/dL: Low HDL cholesterol (major risk factor for CHD) Greater than or equal to 60 mg/dL: High HDL cholesterol ( negative risk factor for CHD) HDL - cholesterol is affected by a number of factors, e.g. smoking, excerise, hormones, sex and age. CHOLESTEROL 142 0 - 240 mg/dL [facility] TRIGLYCERIDES 261(H) 30 - 160 mg/dL [facility] LDL 44(L) 50 - 129 mg/dL [facility] Comment: LDL levels in terms of risk for coronary heart disease: <100 mg/dL: Optimal 100-129 mg/dL: Near or above optimal 130-159 mg/dL: Borderline high 160-189 mg/dL: High >190 mg/dL: Very High CARDIAC RISK RATIO 3.1(L) 3.3 - 4.4 C [facility] Blood 03/22/2019 9:36 AM EDT 03/22/2019 10:12 AM EDT us Solange Jacobs MD LAB BLOOD BKR ORDERABLES Elodia kraft Result [address] [address] * (ABNORMAL) Comprehensive metabolic panel (03/22/2019 9:36 AM EDT) SODIUM 140 133 - 146 mmol/L [facility] POTASSIUM 5.0 3.3 - 5.1 mmol/L [facility] CHLORIDE 102 96 - 108 mmol/L [facility] CO2 23 21 - 35 mmol/L [facility] BUN 13 6 - 19 mg/dL [facility] CREATININE 0.70 0.5 - 1.5 mg/dL [facility] GLUCOSE 139(H) 70 - 99 mg/dL [facility] ALBUMIN 4.5 3.9 - 4.8 g/dL [facility] TOTAL PROTEIN 7.7 6.5 - 8.0 g/dL [facility] CALCIUM 10.9(H) 8.4 - 10.3 mg/dL [facility] ALKALINE PHOSPHATASE 80 39 - 117 U/L [facility] TOTAL BILIRUBIN 0.7 0.0 - 1.2 mg/dL [facility] AST 38(H) 0 - 37 U/L [facility] ALT 20 0 - 40 U/L [facility] GLOBULIN 3.2 1 - 4.8 g/dL [facility] EGFR 81 >59 mL/min/1.7 3m2 [facility] Comment:If patient is black, multiply result by 1.159. Estimated glomerular filtration rate calculated using the CKD-EPI equation. ANION GAP 20 10 - 20 mmol/L [facility] Blood 03/22/2019 9:36 AM EDT 03/22/2019 10:12 AM EDT us Solange Jacobs MD LAB BLOOD BKR ORDERABLES Elodia l Result Performing Organization Address City/[facility]/ZIP Co de Phone Number [address] [address] * T4, total (03/22/2019 9:36 AM EDT) THYROXINE 5.9 4.6 - 12.0 ug/dL [facility] Blood 03/22/2019 9:36 AM EDT 03/22/2019 10:12 AM EDT us Solange Jacobs MD LAB BLOOD ORDERABLES Final Re sult Performing Organization Address [facility]/ZIP Co de Phone Number [address] [address] * Microalbumin/creatinine ratio, random urine (03/22/2019 9:36 AM EDT) URINE MICROALBUMIN <1.2 0 - 2.3 mg/dL [facility] URINE CREATININE 33 mg/dL [facility] MICROALB/CRE RATIO NOT CALCULATED 0 - 20 mg/g Cre [facility] Comment:due to Microalbumin <1.2 Urine (Urine) 03/22/2019 9:3 6 AM EDT 03/22/2019 10:12 AM EDT Solange Jacobs MD LAB URINE ORDERABLES Final Re sult Performing Organization Address City/[facility]/ZIP Co de Phone Number [address] [address] * (ABNORMAL) TSH (03/22/2019 9:36 AM EDT) TSH 5.64(H) 0.27 - 4.20 uIU/mL [facility] Blood 03/22/2019 9:36 AM EDT 03/22/2019 10:12 AM EDT Solange Jacobs MD LAB BLOOD BKR ORDERABLES Elodia l Result Performing Organization Address [facility] Co de Phone Number [address] [address] * (ABNORMAL) CBC and differential (03/22/2019 9:36 AM EDT) WBC 8.31 3.40 - 11.20 K/uL [facility] RBC 5.31(H) 3.80 - 4.80 M/uL [facility] HGB 16.8(H) 12.0 - 15.0 g/dL [facility] HCT 49.1(H) 36.0 - 46.0 % [facility] PLT 283 130 - 400 K/uL [facility] MCV 92.5 79.0 - 98.0 [facility] MCH 31.6 27.0 - 34.8 pg [facility] MCHC 34.2 31.5 - 36.0 g/dL [facility] RDW 12.8 10.8 - 14.6 % [facility] MPV 10.5 9.4 - 12.4 [facility] NRBC 0.00 0.00 /100 WBCs [facility] ABSOLUTE NRBC 0.00 0.00 K/uL [facility] DIFF METHOD Auto [facility] NEUTS 66.0 45.30 - 77.70 % [facility] LYMPHS 23.0 12.30 - 39.70 % [facility] MONOS 8.9 4.10 - 12.80 % [facility] EOS 1.3 0 - 7.2 % [facility] BASOS 0.6 0 - 2.80 % [facility] Granulocytes, immature (%) 0.2 0.0 - 0.9 % [facility] ABSOLUTE NEUTS 5.48 1.40 - 7.70 K/uL [facility] ABSOLUTE LYMPHS 1.91 0.60 - 3.20 K/uL [facility] ABSOLUTE MONOS 0.74(H) 0.11 - 0.59 K/uL [facility] ABSOLUTE EOS 0.11 0.01 - 0.50 K/uL [facility] ABSOLUTE BASOS 0.05 0.00 - 0.08 K/uL [facility] Granulocytes, immature 0.02 0.00 - 0.05 K/uL [facility] Blood 03/22/2019 9:36 AM EDT 03/22/2019 10:12 AM EDT us Solange Jacobs MD LAB BLOOD BKR ORDERABLES Elodia l Result [address] [address] * (ABNORMAL) Folate (03/22/2019 9:36 AM EDT) FOLIC ACID >20.0(H) 4.2 - 19.9 ng/mL [facility] Blood 03/22/2019 9:36 AM EDT 03/22/2019 10:12 AM EDT Solange Jacobs MD LAB BLOOD BKR ORDERABLES Elodia l Result [address] [address] * Vitamin B12 (03/22/2019 9:36 AM EDT) VITAMIN B12 1,041 232 - 1,245 pg/mL [facility] Blood 03/22/2019 9:36 AM EDT 03/22/2019 10:12 AM EDT us Solange Jacobs MD LAB BLOOD BKR ORDERABLES Elodia l Result Performing Organization Address City/[facility]/ZIP Co de Phone Number [address] [address] * 25-OH vitamin D (03/22/2019 9:36 AM EDT) 25 OH VIT D (TOTAL) 42 30 - 60 ng/mL [facility] Blood 03/22/2019 9:36 AM EDT 03/22/2019 10:12 AM EDT us Solange Jacobs MD LAB BLOOD BKR ORDERABLES Elodia l Result Performing Organization Address [facility] Co de Phone Number [address] [address] documented in this encounter Visit Diagnoses Diagnosis [...] documented as of this encounter Care Teams Riverboat Captain Relationship Specialty Start Date End Date Solange Jacobs MD [address] [place] [phone] PCP - General Internal Medicine 08/26/17 documented as of this encounter Additional Source Comments The information contained in this document represents components of the legal health record. It is not the complete legal health record.[facility]
--- OUTSIDE RECORDS SUMMARY | 2025-05-24 06:58 | XMS_ITS | Encounter Summary ---
Author Organization [facility] Address [address] [place] [address] Phone Care Team Providers Care Oracle Obiee Developer Name Role Phone Solange Jacobs MD Primary Care Provider [phone] Encounter Details Date Type Department Care Team (Late st Contact Info) Description 03/14/2022 Procedure Pass [facility] Endoscopy Admitting Dept Virtual Department [address] [place] [address] Social History Tobacco Use Types Packs/Day Years [...] documented as of this encounter Care Teams Oracle Obiee Developer Relationship Specialty Start Date End Date Solange Jacobs MD [address] [place] [phone] PCP - General Internal Medicine 08/26/17 documented as of this encounter Additional Source Comments The information contained in this document represents components of the legal health record. It is not the complete legal health record.[facility]
--- OUTSIDE RECORDS SUMMARY | 2025-05-24 06:58 | XMS_ITS | Encounter Summary ---
Author Organization [facility] Address [address] [place] [phone] Phone Care Team Providers Care Treatment Counselor Name Role Phone Solange Jacobs MD Primary Care Provider [phone] Encounter Details Date Type Department Care Team (Late st Contact Info) Description 08/02/2023 Procedure Pass [facility], Ct Scan - [facility] [address] [place] [address] Social History Tobacco Use Types Packs/Day Years [...] on filedocumented in this encounter Care Teams Treatment Counselor Relationship Specialty Start Date End Date Solange Jacobs MD [address] [place] [phone] PCP - General Internal Medicine 08/26/17 documented as of this encounter Additional Source Comments The information contained in this document represents components of the legal health record. It is not the complete legal health record.[facility]
[2025-05-24 07:49] LABS: Hematocrit 32.3 % (37.0-47.0); Hemoglobin 9.4 g/dl (12.0-16.0); Imm Gran Abs Auto 0.05 X10*3/uL (0.00-0.03); Imm Gran Pct Auto 0.6 % (0.0-0.4); Lymphocytes Absolute Auto 1.8 X10*3/uL (1.2-4.9); Mean Corpuscular HGB Conc 29.1 g/dl (31.0-35.0); Mean Corpuscular Hemoglobin 21.4 pg (27.0-33.0); Mean Corpuscular Volume 73.4 fL (80.0-98.0); NRBC Abs Auto 0.000 X10*3/uL (0.0-0.012); NRBC Pct Auto 0.0 /100WBC (0.0-0.2); Platelet Count 297 X10*3/uL (160-400); Red Blood Count 4.40 X10*6/uL (4.20-5.50); White Blood Count 8.8 X10*3/uL (4.8-10.8)
[2025-05-24 08:01] LABS: Anion Gap 14 (12-20); Blood Urea Nitrogen 17 mg/dL (9-16); Calcium 9.4 mg/dL (8.4-10.2); Carbon Dioxide 24 mmol/L (22-29); Chloride 112 mmol/L (96-108); Estimated Glomerular Filt Rate 60; Potassium 4.6 mmol/L (3.3-5.1); Sodium 145 mmol/L (135-145)
[2025-05-24 08:15] LABS: Procalcitonin 0.04 ng/mL
== END 2025-05-24 06:54 | disposition home or self-care (01) ==
LOC: HO.MMNH2L 06:53
PROVIDERS: Visit Provider Physician Assistant Medical
DX: N39.0 Urinary tract infection, site not specified (principal); G92.8 Other toxic encephalopathy; I69.391 Dysphagia following cerebral infarction
CPT/HCPCS: 36415; 80048; 84145; 85025